=== PATIENT | female | born 1980 | race Caucasian/White ===

== ENCOUNTER 2022-08-18 10:30 | Outpatient (RCR) | payer OTHER, SELFPAY | END 2022-09-10 13:46 | disposition home or self-care (01) | LOC: ST 10:30 | PROVIDERS: PCP Family Medicine; Visit Provider Family Medicine | DX: I63.411 Cerebral infarction due to embolism of right middle cerebral artery (principal) | CPT/HCPCS: 92507; 92523 ==

== ENCOUNTER 2023-01-20 20:31 | Emergency (ER) | payer OTHER, SELFPAY ==
[2023-01-20 20:37] VITALS: BP 130/80; PULSE 113; RESP 18; TEMP 37.2; O2SAT 100; BMI 31.1
--- NOTE | 2023-01-20 21:33 | PC.NURSE ---
Patient states she has had a fever since Wednesday that has been 100 degrees. She also states she has had a persistent, dry cough for 3 months that is associated with acid reflux. She has seen GI for this and has EGD done, but no improvement. She states she is vomiting all of the time, cannot keep any food down, and most liquids come up also. She mentions that she can usually keep down flat root beer and marco antonio sun juice. 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 She is on the transplant list, but states she has to get her GI issues under control before she can have the transplant.
--- NOTE | 2023-01-20 21:39 | XR_ITS ---
[address] [address] Patient Name: JAN LOMBARDI MRN: [id number] date: 1980 Sex: F Assigned Patient Location: ER Current Patient Location: ER Accession/Order Number: [id number] Exam Date: 01/20/2023 21:53 Report Date: 01/20/2023 22:14 At the request of: MAYE FINNEGAN Procedure: XR chest 2V Exam: Radiographs: XR chest 2V Reason for exam: cough, fever Comparison: Chest x-ray dated 07/30/2022 XR/XR chest 2V IMPRESSION: Implanted cardiac recording device. Chest is otherwise unremarkable Electronically authenticated by: RIZWANA BRAY Date: 01/20/2023 22:14
--- NOTE | 2023-01-20 21:50 | ED.FEVER1 ---
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 She states her fever has gone up as high as 100 degrees. She was at her public health epidemiologist office earlier in the week and was told to keep an eye on it . She states that her dialysis site is clear. She is not having any abdominal pain. She has been having a lot of GE reflux and has been vomiting intermittently. She has a dry cough that is constant and taking. She denies any sore throat. She urinates very little. She has had diarrhea for the past several months. She denies any headache or neck pain. She has no skin rash. She does not smoke. She is not on any prophylactic antibiotics.She denies any chest pain or shortness breath. She denies any dizziness or syncope. Related Data Home Medications Medication Instructions Recorded Confirmed amlodipine 2.5 mg tablet mg 01/20/23 apixaban 2.5 mg tablet (Eliquis) 2.5 mg PO BID 01/20/23 01/20/23 atorvastatin 40 mg tablet mg 01/20/23 azathioprine 50 mg tablet mg 01/20/23 folic acid 1 mg tablet 01/20/23 magnesium oxide 400 mg (241.3 mg mg 01/20/23 magnesium) tablet metoprolol succinate 25 mg mg PO 01/20/23 tablet,extended release 24 hr ondansetron HCl 4 mg tablet mg 01/20/23 pantoprazole 40 mg tablet,delayed mg PO 01/20/23 release potassium chloride 10 mEq meq PO 01/20/23 tablet,extended release(part/cryst) sevelamer carbonate 2.4 gram oral g 01/20/23 powder packet sucralfate 100 mg/mL oral 01/20/23 suspension Allergies Allergy/AdvReac Type Severity Reaction Status Date / Time vancomycin Allergy Intermediate Verified 01/20/23 20:42 Review of Systems ROS Status of ROS 10 or more systems reviewed and unremarkable except as noted in history and below Exam Narrative Exam Narrative: Nurses note and vital signs reviewed and patient is not hypoxic. She is tachycardic with a pulse of 113 General: Alert, nontoxic female resting currently on the stretcher, she has an intermiittent spasmodic cough, no respiratory distress Skin: Warm, dry, Pale, no rash noted Head: Normocephalic, atraumatic Eye: Normal conjunctiva, no drainage, EOMI. PERRL Ears, Nose, Mouth, and Throat: oral mucosa is moist. Nares patent. Mouth without vesicles. Cardiovascular: Regular Rate and Rhythm S1S2, no murmurs, rubs or gallops appreciated Respiratory: Patient is in no distress, no accessory muscle use, lungs are clear to auscultation, no wheezing, rhonchi or rales appreciated, intermittent spasmodic cough Back: non-tender, no CVA tenderness bilaterally to percussion. GI: Normal bowel sounds, no tenderness to palpation, no masses appreciated. No rebound, guarding, or rigidity noted. Peritoneal dialysis catheter in mid right abdominal wall, NO ABDOMINAL TENDERNESS, REBOUND, GUARDING OR RIGIDITY Musculoskeletal: The patient has no evidence of calf tenderness, no pitting edema, symmetrical pulses noted bilaterally Neurological: A&O x4, normal speech Psychiatric: Cooperative Constitutional Vital Signs, click to edit/add: Last Vital Signs Temp 98.9 F 01/20/23 20:37 Pulse 113 H 01/20/23 20:37 Resp 18 01/20/23 20:37 BP 130/80 01/20/23 20:37 Pulse Ox 100 01/20/23 20:37 O2 Del Method Room Air 01/20/23 20:37 Course Vital Signs Vital signs: Vital Signs Temperature 98.9 F 01/20/23 20:37 Pulse Rate 113 H 01/20/23 20:37 Respiratory Rate 18 01/20/23 20:37 Blood Pressure 130/80 01/20/23 20:37 Pulse Oximetry 100 01/20/23 20:37 Oxygen Delivery Method Room Air 01/20/23 20:37 Temperature 98.9 F 01/20/23 20:37 Pulse Rate 113 H 01/20/23 20:37 Respiratory Rate 18 01/20/23 20:37 Blood Pressure 130/80 01/20/23 20:37 Pulse Oximetry 100 01/20/23 20:37 Oxygen Delivery Method Room Air 01/20/23 20:37 MDM - Fever MDM Narrative Medical decision making narrative: This 42-year-old female who is a dialysis patient and a patient of Event Planning Manager, Dr Hampton at [facility], presents for evaluation of a fever for the past 4 days as well as a dry nonproductive, spasmodic cough. Her public health epidemiologist told her to keep an eye on her temperature when she was seen earlier this week. She states that her dialysate has been clear. Her temperature has been as high as 100. She does not smoke. She makes very minimal urine. She denies any abdominal pain. She does state that she has been vomiting and having trouble holding things down. She denies any jody nausea. She has also had intermittent diarrhea for the past several months. The majority of her symptoms are chronic in nature. Marco fever is new. Her cough is new. The patient's physical exam is in keeping with her history of being a dialysis patient. She is pale, her mucous membranes are dry, her abdomen is soft however with a perineal dialysis catheter in the abdominal wall. She has no skin rash. She does have an intermittent dry bronchospastic cough and clear rhinorrhea. Chest x-ray was negative for acute findings. Routine labs were ordered. Her lactic acid was mildly elevated at 2.2. Her potassium is low at 2.9. Her hemoglobin is low at 7.2. She states that her hemoglobin is lower than it was recently when it was 8.1 however she declines any blood product administration emergency department. She states her potassium is higher than it has been recently and agrees to oral potassium supplementation. She was unable to tolerate pills but was able to tolerate potassium slurry and was given 25 mg of Effer K. A respiratory panel was ordered and is positive for rhinovirus/enterovirus which is likely the etiology of her cough and gastrointestinal symptoms. She was agreeable to IV fluids, tylenol and Zofran. She was feeling better after 500 mL of normal saline and was able to tolerate the potassium supplement after the Zofran. She requested an additional 500 mL of normal saline. I explained to her that I did not want to fluid overload her in light of her kidney disease but she states that the majority of the fluid will come off when she does peritoneal dialysis later tonight. She was medicated with a dose of hycodanin the emergency department which hopefully will help her cough. She was also given 3 g of IV Unasyn due to the fever and the complicated medical history that she has including the peritoneal dialysis catheter in her abdominal wall, I explained to her that this is empiric treatment for the URI symptoms and I dont want her to end up with pneumonia or an intraabdominal infection- she is in agreement with this. She will be discharged home with prescription for the potassium supplements (Effer K) that she can tolerate, Phenergan with codeine and Augmentin 500 mg. I encouraged her to follow closely with her lieutenant governor as she may require blood products in the near future and her public health epidemiologist. She can discuss the medications I prescribed with her doctors and they can direct her further Medical Records Medical records narrative: The [address] [address] XRay Report Signed Patient: JAN LOMBARDI MR#: [id number] : 1980 Acct:[id number] Age/Sex: 42 / F ADM Date: 01/20/23 Loc: ER Attending Dr: Ordering Physician: Ava Macias Date of Service: 01/20/23 Procedure(s): XR chest 2V Accession Number(s): [id number] cc: JEFFREY ARGUELLES ; Ava aMcias~ The [address] [address] Patient Name: JAN LOMBARDI MRN: [id number] date: 1980 Sex: F Assigned Patient Location: ER Current Patient Location: ER Accession/Order Number: [id number] Exam Date: 01/20/2023 21:53 Report Date: 01/20/2023 22:14 At the request of: AVA MACIAS Procedure: XR chest 2V Exam: Radiographs: XR chest 2V Reason for exam: cough, fever Comparison: Chest x-ray dated 07/30/2022 XR/XR chest 2V IMPRESSION: Implanted cardiac recording device. Chest is otherwise unremarkable Lab Data Labs: Lab Results 01/20/23 01/20/23 01/20/23 Range/Units 21:20 22:23 22:25 WBC 8.7 (4.0-11.0) 10^3/uL RBC 2.14 L (4.20-5.40) 10^6/uL Hgb 7.2 L (12.0-16.0) g/dL Hct 21.9 L* (36.0-48.0) % MCV 102.3 H (81.0-99.0) fL MCH 33.6 (26.7-34.0) pg MCHC 32.9 (29.9-35.2) g/dL RDW 15.0 (11.0-15.0) % Plt Count 174 (150-450) 10^3/uL MPV 11.8 (9.5-13.5) fL Neut % (Auto) 79.1 H (43.0-75.0) % Lymph % (Auto) 11.1 L (20.5-60.0) % Bibb % (Auto) 7.6 (1.7-12.0) % Eos % (Auto) 1.0 (0.9-7.0) % Baso % (Auto) 0.3 (0.2-2.0) % Neut # (Auto) 6.9 H (1.4-6.5) 10^3/uL Lymph # (Auto) 1.0 L (1.2-3.8) 10^3/uL Bibb # (Auto) 0.7 (0.3-0.8) 10^3/uL Eos # (Auto) 0.1 (0.0-0.7) 10^3/uL Baso # (Auto) 0.0 (0.0-0.1) 10^3/uL Abs Immat Gran (auto) 0.08 H (0.00-0.03) 10^3/uL Imm/Tot Granulo (auto) 0.9 H (0.0-0.5) % Sodium 136 (136-145) mmol/L Potassium 2.9 L* (3.5-5.1) mmol/L Chloride 93 L (98-107) mmol/L Carbon Dioxide 32.0 (21.0-32.0) mmol/L Anion Gap 13.9 BUN 62.0 H (7.0-18.0) mg/dL Creatinine 25.44 H* (0.55-1.02) mg/dL Est GFR ( Amer) 2 L (>=60) Est GFR (Non-Af Amer) 1 L (>=60) BUN/Creatinine Ratio 2.4 Glucose 104 (74-106) mg/dL Lactate 2.2 H* (0.4-2.0) mmol/L Calcium 9.2 (8.5-10.1) mg/dL Total Bilirubin 1.2 H (0.2-1.0) mg/dL AST <15 L (15-37) U/L ALT 16 (14-59) U/L Alkaline Phosphatase 93 (46-116) U/L Total Protein 5.8 L (6.4-8.2) g/dL Albumin 2.3 L (3.4-5.0) g/dL Globulin 3.5 g/dL Albumin/Globulin Ratio 0.7 Adenovirus (PCR) Not detected (NOT DETECTE) C. pneumoniae DNA (PCR) Not detected (NOT DETECTE) Coronavirus Type OC43 Not detected (NOT DETECTE) Coronavirus Type HKU1 Not detected (NOT DETECTE) Coronavirus Type 229E Not detected (NOT DETECTE) Coronavirus Type NL63 Not detected (NOT DETECTE) Human Metapneumovir PCR Not detected (NOT DETECTE) M. pneumoniae (PCR) Not detected (NOT DETECTE) Parainfluenza PCR Not detected (NOT DETECTE) Parainfluenza 2 (PCR) Not detected (NOT DETECTE) Parainfluenza 3 (PCR) Not detected (NOT DETECTE) Parainfluenza 4 (PCR) Not detected (NOT DETECTE) RSV (RT-PCR) Not detected (NOT DETECTE) Entero/Rhino (PCR) Detected A (NOT DETECTE) SARS-CoV-2 (PCR) Not detected (NOT DETECTE) Bordetella pertussis (PCR) Not detected (NOT DETECTE) B parapertussis DNA PCR Not detected (NOT DETECTE) Influenza Type A (PCR) Not detected (NOT DETECTE) Influenza Type B (PCR) Not detected (NOT DETECTE) Discharge Plan Discharge Chief Complaint: Fever Clinical Impression: Enteroviral infection, Anemia, Chronic renal disease, Acute bronchitis due to Rhinovirus, Hypokalemia Patient Disposition: Home, Self-Care Time of Disposition Decision: 00:45 Condition: Good Prescriptions / Home Meds: No Action ondansetron HCl 4 mg tablet amlodipine 2.5 mg tablet pantoprazole 40 mg tablet,delayed release (DR/EC) PO folic acid 1 mg tablet Eliquis 2.5 mg tablet 2.5 mg PO BID atorvastatin 40 mg tablet sucralfate 100 mg/mL suspension azathioprine 50 mg tablet magnesium oxide 400 mg (241.3 mg magnesium) tablet metoprolol succinate 25 mg tablet extended release 24 hr PO potassium chloride 10 mEq tablet,ER particles/crystals PO sevelamer carbonate 2.4 gram powder in packet Instructions: Chronic Kidney Disease (ED), Hypokalemia (ED), Acute Bronchitis (ED), Anemia (ED) Stand Alone Forms: Portal Instructions Referrals: JEFFREY ARGUELLES [Primary Care Provider] - 1 week
[2023-01-20] MEDS: ONDANSETRON PF 4 MG/2 ML VIAL IV (22:16)
[2023-01-20] MEDS: 0.9 % SODIUM CHLORIDE 500 ML IV (22:16)
[2023-01-20] MEDS: ACETAMINOPHEN 325 MG TABLET 650 MG PO (22:18)
[2023-01-20 22:30] LABS: Adenovirus NOT DETECTED (NOT DETECTE); Bordetella parapertussis NOT DETECTED (NOT DETECTE); Coronavirus 229E NOT DETECTED (NOT DETECTE); Coronavirus HKU1 NOT DETECTED (NOT DETECTE); Coronavirus NL63 NOT DETECTED (NOT DETECTE); Coronavirus OC43 NOT DETECTED (NOT DETECTE); Human Metapneumovirus NOT DETECTED (NOT DETECTE); Influenza A NOT DETECTED (NOT DETECTE); Influenza B NOT DETECTED (NOT DETECTE); Mycoplasma pneumoniae NOT DETECTED (NOT DETECTE); Parainfluenza Virus 1 NOT DETECTED (NOT DETECTE); Parainfluenza Virus 2 NOT DETECTED (NOT DETECTE); Parainfluenza Virus 3 NOT DETECTED (NOT DETECTE); Parainfluenza Virus 4 NOT DETECTED (NOT DETECTE); Respiratory Syncytial Virus NOT DETECTED (NOT DETECTE); SARS-CoV-2 NOT DETECTED (NOT DETECTE)
[2023-01-20 22:33] LABS: Basophils Percent Auto 0.3 % (0.2-2.0); Eosinophils Absolute Auto 0.1 10^3/uL (0.0-0.7); Hemoglobin 7.2 g/dL (12.0-16.0); Immature Granulocytes Abs Auto 0.08 10^3/uL (0.00-0.03); Immature Granulocytes Pct Auto 0.9 % (0.0-0.5); Lymphocytes Percent Auto 11.1 % (20.5-60.0); Mean Corpuscular HGB Conc 32.9 g/dL (29.9-35.2); Mean Corpuscular Hemoglobin 33.6 pg (26.7-34.0); Mean Corpuscular Volume 102.3 fL (81.0-99.0); Mean Platelet Volume 11.8 fL (9.5-13.5); Monocytes Absolute Auto 0.7 10^3/uL (0.3-0.8); Monocytes Percent Auto 7.6 % (1.7-12.0); Neutrophils Absolute Auto 6.9 10^3/uL (1.4-6.5); Neutrophils Percent Auto 79.1 % (43.0-75.0); Platelet Count 174 10^3/uL (150-450); Red Blood Count 2.14 10^6/uL (4.20-5.40); White Blood Count 8.7 10^3/uL (4.0-11.0)
[2023-01-20 22:34] LABS: Hematocrit 21.9 % (36.0-48.0)
[2023-01-20 22:54] LABS: Lactate/Lactic Acid 2.2 mmol/L (0.4-2.0)
[2023-01-20 22:56] LABS: Alanine Aminotransferase 16 U/L (14-59); Albumin Globulin Ratio 0.7; Albumin Level 2.3 g/dL (3.4-5.0); Alkaline Phosphatase 93 U/L (46-116); Anion Gap 13.9; BUN Creatinine Ratio 2.4; Bilirubin Total 1.2 mg/dL (0.2-1.0); Calcium 9.2 mg/dL (8.5-10.1); Chloride 93 mmol/L (98-107); Estimated GFR (African America 2 (>=60); Estimated GFR (Non-African Ame 1 (>=60); Globulin 3.5 g/dL; Glucose 104 mg/dL (74-106); Sodium 136 mmol/L (136-145); Total Protein 5.8 g/dL (6.4-8.2)
[2023-01-20 23:04] LABS: Aspartate Amino Transferase <15 U/L (15-37)
[2023-01-20 23:05] LABS: Potassium 2.9 mmol/L (3.5-5.1)
[2023-01-20 23:20] LABS: Human Rhinovirus/Enterovirus DETECTED (NOT DETECTE)
[2023-01-20] MEDS: AMPICILLIN SODIUM/SULBACTAM NA 3 GM in 0.9 % SODIUM CHLORIDE 100 ML IV (23:40)
[2023-01-20] MEDS: POTASSIUM BICARBONATE/CIT 25 MEQ TABLET EFF PO (23:56)
[2023-01-21] MEDS: 0.9 % SODIUM CHLORIDE 500 ML IV (00:40)
[2023-01-21] MEDS: ACETAMINOPHEN 120 MG WITH CODEINE 12 MG/ 5 ML SOLUTION PO (01:16)
[2023-01-22 01:35] LABS: A. calcoaceticus-baumannii Cpx NOT DETECTED (NOT DETECTE); Bacteroides fragilis NOT DETECTED (NOT DETECTE); Candida albicans NOT DETECTED (NOT DETECTE); Candida auris NOT DETECTED (NOT DETECTE); Candida glabrata NOT DETECTED (NOT DETECTE); Candida krusei NOT DETECTED (NOT DETECTE); Candida parapsilosis NOT DETECTED (NOT DETECTE); Candida tropicalis NOT DETECTED (NOT DETECTE); Cryptococcus neoformans/gattii NOT DETECTED (NOT DETECTE); Enterococcus faecalis NOT DETECTED (NOT DETECTE); Enterococcus faecium NOT DETECTED (NOT DETECTE); Haemophilus influenzae NOT DETECTED (NOT DETECTE); Klebsiella aerogenes NOT DETECTED (NOT DETECTE); Klebsiella pneumoniae group NOT DETECTED (NOT DETECTE); Listeria monocytogenes NOT DETECTED (NOT DETECTE); Neisseria meningitidis NOT DETECTED (NOT DETECTE); Proteus spp. NOT DETECTED (NOT DETECTE); Pseudomonas aeruginosa NOT DETECTED (NOT DETECTE); Salmonella spp. NOT DETECTED (NOT DETECTE); Serratia marcescens NOT DETECTED (NOT DETECTE); Staphylococcus epidermidis NOT DETECTED (NOT DETECTE); Staphylococcus lugdunensis NOT DETECTED (NOT DETECTE); Staphylococcus spp. NOT DETECTED (NOT DETECTE); Stenotrophomonas maltophilia NOT DETECTED (NOT DETECTE); Streptococcus agalactiae NOT DETECTED (NOT DETECTE); Streptococcus pneumoniae NOT DETECTED (NOT DETECTE); Streptococcus pyogenes NOT DETECTED (NOT DETECTE); Streptococcus spp. NOT DETECTED (NOT DETECTE)
[2023-01-22 05:52] LABS: Enterobacter cloacae complex DETECTED (NOT DETECTE); Enterobacterales DETECTED (NOT DETECTE)
[2023-01-22 12:08] LABS: CTX-M NOT DETECTED (NOT DETECTE); KPC NOT DETECTED (NOT DETECTE)
[2023-01-22 12:09] LABS: IMP NOT DETECTED (NOT DETECTE)
[2023-01-22 12:10] LABS: NDM NOT DETECTED (NOT DETECTE); OXA-48-like NOT DETECTED (NOT DETECTE); VIM NOT DETECTED (NOT DETECTE); mcr-1 NOT DETECTED (NOT DETECTE)
== END 2023-01-21 01:50 | disposition home or self-care (01) ==
PROVIDERS: Emergency Provider Emergency Medicine; PCP Family Medicine
DX: J20.6 Acute bronchitis due to rhinovirus (principal); E87.6 Hypokalemia; D64.9 Anemia, unspecified; B34.1 Enterovirus infection, unspecified; N18.6 End stage renal disease; Z99.2 Dependence on renal dialysis; Z79.01 Long term (current) use of anticoagulants; Z79.899 Other long term (current) drug therapy; Z20.822 Contact with and (suspected) exposure to COVID-19
CPT/HCPCS: 0202U; 36415; 71046; 80053; 83605; 85025; 87040; 87150; 87186; 96365; 96375; 99284

== ENCOUNTER 2023-11-14 23:09 | Emergency (ER) | payer MEDICARE, MEDICAID, SELFPAY ==
--- OUTSIDE RECORDS SUMMARY | 2023-11-14 23:27 | XMS_ITS | CCD ---
Author Organization [facility] Care Team Providers Care Fast Food Worker Name Role Phone Unknown, Pcp Unavailable Unavailable Farhat Cali Unavailable Andie Hensley Unavailable Unavailabl e Dinary, Buthayna Unavailable Unavailable Brianna Castillo Unavailable Gary Feldman Unavailable Unknown, Referring Provider Unavailable Unav ailable Unavailable Primary Care Provider UnavailJeffrey Hughes Primary Care Provider MD Robert Patel Attending Provider [phone] MD Jeffrey Burrows Primary Care Provider Jeffrey Del Cid Primary Care Provider Jeffrey Del Cid Primary Care Provider Jeffrey Del Cid Primary Care Provider MARKER ., DR VILLAVICENCIO Admitting Unavailable MARKER ., DR VILLVAICENCIO Attending Unavailable BLANE, DR MURPHY Primary Care Unavailable MARKER ., DR VILLAVICENCIO Consulting Unavailable LOU SAWANT Consulting Unavailable BLANE, DR MURPHY Primary Care Unavailable KISHAN, DR ABELINO Faye Consulting Unavailable WADE ., SHELLIE Admitting Unavailable WADE ., SHELLIE Attending Unavailable KISHAN, DR ABELINO Faye Procedure Practitioner Megan DANGELO ., PA ES Consulting Unavailabl e AHDOOT, KAREN Consulting Unavailable ADDIS ., ZAK Consulting Unavailable SINGHGALLITO, ARAVIND Consulting Unavailable SISTER, DAVID Consulting Unavailable WADE ., SHELLIE Consulting Unavailable MD Jeffrey Burrows Primary Care Provider [phone] Connorimore, UNDER WATER ASSISTANT-BC Agnes E Emergency Provider Jeffrey Del Cid Primary Care Provider MD Jeffrey Burrows Primary Care Provider [phone] MD Natali Child V Attending Provider [phone] New GILL[place], Daniel Unavailable Bullimore, Agnes E Admitting Unavailable Defrance, Jeffrey Primary Care Unavailable Bullimore, Agnes E Attending Unavailable Defrance, Jeffrey Primary Care Unavailable Abhyankar, Antali V Attending Unavailable Abhyankar, Natali V Admitting Unavailable Abhyankar, Natali V Admitting Unavailable Defrance, Jeffrey Primary Care Unavailable Abhyankar, Natali V Attending Unavailable MD Jeffrey Burrows Primary Care Provider [phone] MD Natali Child V Attending Provider [phone] DE MERRICK, JEFFREY LUGO Primary Care Unavaila ble EBENSEENTE Referring Unavailable de Merrick, Jeffrey Lugo Primary Care Provider JEFFREY BURROWS Attending Unavailable DEFINGRID, JEFFREY Pacheco Referring Unavailable DEFJEFFREY QUINTERO Primary Care Unavailable DE MERRICK, JEFFREY LUGO Primary Care Unavaila ble DE MERRICK, JEFFREY LUGO Primary Care Unavaila ble ABHYANKAR, NATALI Referring Unavailable DE MERRICK, JEFFREY LUGO Primary Care Unavaila ble DE MERRICK, JEFFREY LUGO Primary Care Unavaila ble SUYAPA LOUISE Attending Unavailable DE MERRICK, JEFFREY LUGO Primary Care Unavaila ble DE MERRICK, JEFFREY LUGO Primary Care Unavaila ble ABHYANKAR, NATALI Referring Unavailable DE MERRICK, JEFFREY LUGO Primary Care Unavaila ble DE MERRICK, JEFFREY LUGO Primary Care Unavaila ble ABHYANKAR, NATALI Referring Unavailable DE MERRICK, JEFFREY LUGO Primary Care Unavaila ble ABHYANKAR, NATALI Referring Unavailable DE MERRICK, JEFFREY LUGO Primary Care Unavaila ble DE MERRICK, JEFFREY LUGO Primary Care Unavaila ble YASEENTE Referring Unavailable DE MERRICK, JEFFREY LUGO Primary Care Unavaila ble DE MERRICK, JEFFREY LUGO Primary Care Unavaila ble ABHYANKAR, NATALI Referring Unavailable DE MERRICK, JEFFREY LUGO Primary Care Unavaila ble DE MERRICK, JEFFREY LUGO Primary Care Unavaila ble DE MERRICK, JEFFREY LUGO Primary Care Unavaila ble MELITON MOSQUEDA Referring Unavailable JOANNE OVERTON Attending Unavailable DE MERRICK, JEFFREY LUGO Primary Care Unavaila ble ABHYANKAR, NATALI Referring Unavailable ABHYANKAR, NATALI Referring Unavailable DE MERRICK, JEFFREY LUGO Primary Care Unavaila ble DE MERRICK, JEFFREY LUGO Referring Unavaila ble DE MERRICK, JEFFREY LUGO Primary Care Unavaila ble DE MERRICK, JEFFREY LUGO Primary Care Unavaila ble ABHYANKAR, NATALI Referring Unavailable DE MERRICK, JEFFREY LUGO Primary Care Unavaila ble TE AVENDAÑO Attending Unavailable DE MERRICK, JEFFREY LUGO Primary Care Unavaila ble ABHYANKAR, NATALI Attending Unavailable ABHYANKAR, NATALI Referring Unavailable DE MERRICK, JEFFREY LUGO Primary Care Unavaila ble ABHYANKAR, NATALI Referring Unavailable DE MERRICK, JEFFREY LUGO Primary Care Unavaila ble ABHYANKAR, NATALI Referring Unavailable DE MERRICK, JEFFREY LUGO Primary Care Unavaila ble ABHYANKAR, NATALI Referring Unavailable DE MERRICK, JEFFREY LUGO Primary Care Unavaila ble DE MERRICK, JEFFREY LUGO Primary Care Unavaila ble ABHYANKAR, NATALI Referring Unavailable DE MERRICK, JEFFREY LUGO Primary Care Unavaila ble DE MERRICK, JEFFREY LUGO Primary Care Unavaila ble OWOYEMI, ITUNU Referring Unavailable DE MERRICK, JEFFREY LUGO Primary Care Unavaila ble OWOYEMI, ITUNU Referring Unavailable DE MERRICK, JEFFREY LUGO Primary Care Unavaila ble OWOYEMI, ITUNU Referring Unavailable DE MERRICK, JEFFREY LUGO Primary Care Unavaila ble OWOYEMI, ITUNU Referring Unavailable OWOYEMI, ITUNU Referring Unavailable DE MERRICK, JEFFREY LUGO Primary Care Unavaila ble OWOYEMI, ITUNU Referring Unavailable DE MERRICK, JEFFREY LUGO Primary Care Unavaila ble OWOYEMI, ITUNU Referring Unavailable DE MERRICK, JEFFREY LUGO Primary Care Unavaila ble OWOYEMI, ITUNU Referring Unavailable DE MERRICK, JEFFREY LUGO Primary Care Unavaila ble SELF Referring Unavailable JOANNE OVERTON Attending Unavailable DE MERRICK, JEFFREY LUGO Primary Care Unavaila ble OWOYEMI, ITUNU Referring Unavailable DE MERRICK, JEFFREY LUGO Primary Care Unavaila ble ABHYANKAR, NATALI Referring Unavailable DE MERRICK, JEFFREY LUGO Primary Care Unavaila ble DE MERRICK, JEFFREY LUGO Primary Care Unavaila ble ABHYANKAR, NATALI Referring Unavailable DE MERRICK, JEFFREY LUGO Primary Care Unavaila ble ABHYANKAR, NATALI Referring Unavailable DE MERRICK, JEFFREY LUGO Primary Care Unavaila ble DE MERRICK, JEFFREY LUGO Primary Care Unavaila ble ABHYANKAR, NATALI Referring Unavailable BRENDA, ZIAD Referring Unavailable DE MERRICK, JEFFREY LUGO Primary Care Unavaila ble BRENDA, ZIAD Referring Unavailable DE MERRICK, JEFFREY LUGO Primary Care Unavaila ble BRENDA, ZIAD Referring Unavailable DE MERRICK, JEFFREY LUGO Primary Care Unavaila ble BRENDA, AKIL Referring Unavailable DE MERRICK, JEFFREY LUGO Primary Care Unavaila ble BRENDA, AKIL Referring Unavailable DE MERRICK, JEFFREY LUGO Primary Care Unavaila ble DE MERRICK, JEFFREY LUGO Referring Unavaila ble DE MERRICK, JEFFREY LUGO Primary Care Unavaila ble ABHYANKAR, NATALI Attending Unavailable DE MERRICK, JEFFREY LUGO Primary Care Unavaila ble DE MERRICK, JEFFREY LUGO Primary Care Unavaila ble ROMAN BERNARDO Attending Unavailable PHILIP ESCALANTE Referring Unavailable DE MERRICK, JEFFREY LUGO Primary Care Unavaila ble ABHYANKAR, NATALI Referring Unavailable DE MERRICK, JEFFREY LUGO Primary Care Unavaila ble ABHYANKAR, NATALI Referring Unavailable ABHYANKAR, NATALI Attending Unavailable DE MERRICK, JEFFREY LUGO Primary Care Unavaila ble ESTELA LUGO Referring Unavailable NASEERFLORENCE Attending Unavailable DE MERRICK, JEFFREY LUGO Primary Care Unavaila ble DE MERRICK, JEFFREY LUGO Primary Care Unavaila ble ABHYANKAR, NATALI Referring Unavailable DE MERRICK, JEFFREY LUGO Primary Care Unavaila ble DE MERRICK, JEFFREY LUGO Primary Care Unavaila ble ABHYANKAR, NATALI Referring Unavailable DE MERRICK, JEFFREY LUGO Primary Care Unavaila ble DE MERRICK, JEFFREY LUGO Primary Care Unavaila ble ABHYANKAR, NATALI Referring Unavailable DE MERRICK, JEFFREY LUGO Primary Care Unavaila ble ABHYANKAR, NATALI Attending Unavailable ABHYANKDARREN, NATALI Referring Unavailable DE MERRICK, JEFFREY LUGO Primary Care Unavaila ble ABHYANKAR, NATALI Referring Unavailable DE MERRICK, JEFFREY LUGO Primary Care Unavaila ble MELITON MOSQUEDA Attending Unavailable DE MERRICK, JEFFREY LUGO Primary Care Unavaila ble YASEENTE Referring Unavailable DE MERRICK, JEFFREY LUGO Primary Care Unavaila ble YASEENTE Attending Unavailable DE MERRICK, JEFFREY LUGO Primary Care Unavaila ble ANITRA STEIN Referring Unavailable PHILIP ESCALANTE Attending Unavailable DE MERRICK, JEFFREY LUGO Primary Care Unavaila ble MELITON MOSQUEDA Referring Unavailable DE MERRICK, JEFFREY LUGO Primary Care Unavaila ble DANIEL TORO Attending Unavailable DE MERRICK, JEFFREY LUGO Primary Care Unavaila ble BRENDA, AKIL Referring Unavailable DE MERRICK, JEFFREY LUGO Primary Care Unavaila ble DE MERRICK, JEFFREY LUGO Primary Care Unavaila ble ABHYANKAR, NATALI Referring Unavailable DE MERRICK, JEFFREY LUGO Primary Care Unavaila ble ABHYANKAR, NATALI Referring Unavailable DE MERRICK, JEFFREY LUGO Primary Care Unavaila ble ABHYANKAR, NATALI Referring Unavailable DE MERRICK, JEFFREY LUGO Primary Care Unavaila ble DE MERRICK, JEFFREY LUGO Primary Care Unavaila ble SUYAPA LOUISE Attending Unavailable DE MERRICK, JEFFREY LUGO Primary Care Unavaila ble ABHYANKAR, NATALI Referring Unavailable DE MERRICK, JEFFREY LUGO Primary Care Unavaila ble DE MERRICK, JEFFREY LUGO Primary Care Unavaila ble ABHYANKAR, NATALI Referring Unavailable DE MERRICK, JEFFREY LUGO Primary Care Unavaila ble DE MERRICK, JEFFREY LUGO Primary Care Unavaila ble ABHYANKAR, NATALI Referring Unavailable DE MERRICK, JEFFREY LUGO Primary Care Unavaila ble DE MERRICK, JEFFREY LUGO Primary Care Unavaila ble ABHYANKAR, NATALI Referring Unavailable DE MERRICK, JEFFREY LUGO Primary Care Unavaila ble DE MERRICK, JEFFREY LUGO Primary Care Unavaila ble ABHYANKAR, NATALI Referring Unavailable SLOPNICKFERCHO Attending Unavailable DE MERRICK, JEFFREY LUGO Primary Care Unavaila ble PHILIP ESCALANTE Referring Unavailable DE MERRICK, JEFFREY LUGO Primary Care Unavaila ble ABHYANKAR, NATALI Referring Unavailable ABHYANKAR, NATALI Referring Unavailable DE MERRICK, JEFFREY LUGO Primary Care Unavaila ble DE MERRICK, JEFFREY LUGO Referring Unavaila ble DE MERRIKC, JEFFREY LUGO Primary Care Unavaila ble ABHYANKAR, NATALI Referring Unavailable DE MERRICK, JEFFREY LUGO Primary Care Unavaila ble ABHYANKAR, NATALI Referring Unavailable DE MERRICK, JEFFREY LUGO Primary Care Unavaila ble DE MERRICK, JEFFREY LUGO Primary Care Unavaila ble ABHYANKAR, NATALI Referring Unavailable DE MERRICK, JEFFREY LUGO Primary Care Unavaila ble DE MERRICK, JEFFREY LUGO Primary Care Unavaila ble DE MERRICK, JEFFREY LUGO Primary Care Unavaila ble ABHYANKAR, NATALI Referring Unavailable DE MERRICK, JEFFREY LUGO Primary Care Unavaila ble ABHYANKAR, NATALI Referring Unavailable DE MERRICK, JEFFREY LUGO Primary Care Unavaila ble ABHYANKAR, NATALI Referring Unavailable ABHYANKAR, NATALI Attending Unavailable ABHYANKAR, NATALI Referring Unavailable DE MERRICK, JEFFREY LUGO Primary Care Unavaila ble DE MERRICK, JEFFREY LUGO Primary Care Unavaila ble ABHYANKAR, NATALI Referring Unavailable DE MERRICK, JEFFREY LUGO Primary Care Unavaila ble ABHYANKAR, NATALI Referring Unavailable ABHYANKAR, NATALI Attending Unavailable DE MERRICK, JEFFREY LUGO Primary Care Unavaila ble DE MERRICK, JEFFREY LUGO Primary Care Unavaila ble DE MERRICK, JEFFREY LUGO Primary Care Unavaila ble ABHYANKAR, NATALI Referring Unavailable DE MERRICK, JEFFREY LUGO Primary Care Unavaila ble ABHYANKAR, NATALI Referring Unavailable ABHYANKAR, NATALI Attending Unavailable DE MERRICK, JEFFREY LUGO Primary Care Unavaila ble DE MERRICK, JEFFREY LUGO Primary Care Unavaila ble TERESA COPE Attending Unavailable DE MERRICK, JEFFREY LUGO Primary Care Unavaila ble ABHYANKAR, NATALI Referring Unavailable DE MERRICK, JEFFREY LUGO Primary Care Unavaila ble ABHYANKAR, NATALI Referring Unavailable DE MERRICK, JEFFREY LUGO Primary Care Unavaila ble ABHYANKAR, NATALI Referring Unavailable DE MERRICK, JEFFREY LUGO Primary Care Unavaila ble ABHYANKAR, NATALI Referring Unavailable DE MERRICK, JEFFREY LUGO Primary Care Unavaila ble ABHYANKAR, NATALI Referring Unavailable DE MERRICK, JEFFREY LUGO Primary Care Unavaila ble ABHYANKAR, NATALI Referring Unavailable DE MERRICK, JEFFREY LUGO Primary Care Unavaila ble TE AVENDAÑO Attending Unavailable DE MERRICK, JEFFREY LUGO Primary Care Unavaila ble ABHYANKAR, NATALI Referring Unavailable DE MERRICK, JEFFREY LUGO Primary Care Unavaila ble ABHYANKAR, NATALI Referring Unavailable DE MERRICK, JEFFREY LUGO Primary Care Unavaila ble ABHYANKAR, NATALI Referring Unavailable DE MERRICK, JEFFREY LUGO Primary Care Unavaila ble RACQUEL BURGESS Referring Unavailable DE MERRICK, JEFFREY LUGO Primary Care Unavaila ble ABHYANKAR, NATALI Referring Unavailable DE MERRICK, JEFFREY LUGO Primary Care Unavaila ble ABHYANKAR, NATALI Referring Unavailable DE MERRICK, JEFFREY LUGO Primary Care Unavaila ble DE MERRICK, JEFFREY LUGO Primary Care Unavaila ble CHARITY GRISSOM Attending Unavailable DE MERRICK, JEFFREY LUGO Primary Care Unavaila ble ABHYANKAR, NATALI Referring Unavailable DE MERRICK, JEFFREY LUGO Primary Care Unavaila ble ABHYANKAR, NATALI Referring Unavailable DE MERRICK, JEFFREY LUGO Primary Care Unavaila ble DE MERRICK, JEFFREY LUGO Primary Care Unavaila ble ABHYANKAR, NATALI Attending Unavailable DE MERRICK, JEFFREY LUGO Primary Care Unavaila ble DE MERRICK, JEFFREY LUGO Primary Care Unavaila ble ARGENTINA MARADIAGA Attending Unavailable ABHYANKAR, NATALI Referring Unavailable DE MERRICK, JEFFREY LUGO Primary Care Unavaila ble ANTONIO MARINO Attending Unavailable ANTONIO MARINO A Admitting Unavailable DE MERRICK, JEFFREY LUGO Primary Care Unavaila ble FERCHO JOHNSON Referring Unavailable NATI MAXWELL Attending Unavailable JEFFREY DEL CID Primary Care Unavaila ble DEFRANCE, JEFFREY T Primary Care Unavailable BREANA BLOOD Attending Unavailab le DEFRANCE, JEFFREY Pacheco Primary Care Unavailable KIM, JEFFREY Attending Unavailable RIAZ, EHAD Consulting Unavailable KIM, JEFFREY Attending Unavailable KIM, JEFFREY Referring Unavailable DEFRANCE, JEFFREY T Primary Care Unavailable KIM, JEFFREY Attending Unavailable KIM, JEFFREY Referring Unavailable DEFRANCE, JEFFREY T Primary Care Unavailable KIM, JEFFREY Attending Unavailable KIM, JEFFREY Referring Unavailable DEFRANCE, JEFFREY T Primary Care Unavailable KIM, JEFFREY Attending Unavailable KIM, JEFFREY Referring Unavailable DEFRANCE, JEFFREY T Primary Care Unavailable DEFRANCE, JEFFREY T Referring Unavailable DEFRANCE, JEFFREY Pacheco Primary Care Unavailable SERVICE, DANIELLE Referring Unavailable DEFRANCE, JEFFREY Pacheco Primary Care Unavailable SERVICE, JOBST Referring Unavailable DEFRANCE, JEFFREY T Primary Care Unavailable SERVICE, JOBST Referring Unavailable DEFRANCE, JEFFREY T Primary Care Unavailable NIECY VASQUEZ Attending Unavailable BARTSON, NIECY Weaver Referring Unavailable DEFRANCE, JEFFREY Pacheco Primary Care Unavailable NIECY VASQUEZ Referring Unavailable DEFRANCE, JEFFREY T Primary Care Unavailable Allergies Allergy Classification Reported Allergen(s) Allergy Type Date of Onset Reaction(s) Facility (8 sources) Vancomycin; Translations: [VANCOMYCIN] Drug Allergy 05-27-2022 [facility] Repository (20 sources) Vancomycin Drug Allergy 12-03-2022 Itching [facility] Work Phone: (1 source) Vancomycin Drug Allergy 09-03-2022 [facility] Repository (20 sources) Amoxicillin / Clavulanate; Translations: [AMOXICILLIN-POT CLAVULANATE] Drug Allergy 01-26-2023 Hives, Rash [facility] Medications Current Medications Medication Drug Class(es) Dates Sig (Normalized) Sig (Original) acetaminophen 325 mg / HYDROcodone bitartrate 5 mg oral tablet (5 sources) Opioid Agonist Start: 08-28-2021 take 1 tablet by mouth every six hours Hydrocodone-Acet aminophen Active 1 TAB PO Q6H 28 August 28, 2021 amLODIPine 2.5 mg oral tablet (20 sources) Dihydropyridine Calcium Channel [place] Start: 08-10-2023 take 1 tablet by mouth once daily amLODIPine (NORVASC) 2.5 mg tablet Take 2.5 mg by mouth once daily. 08/10/2023 Active Start: 11-07-2021 End: 11-26-2022 take 2 tablets by mouth once daily amLODIPine (NORVASC) 2.5 mg tablet Take 5 mg by mouth once daily. 0 11/07/2021 11/26/2022 Discontinued (Side Effects) End: 05-28-2023 amLODIPine (NORVASC) 5 mg ta blet Take 5 mg by mouth. 0 05/28/2023 Discontinued (Discontinued by Patient) Comment on above: Take 5 mg by mouth o nce daily. Take 5 mg by mouth. apixaban 2.5 mg oral tablet (20 sources) Factor Xa Inhibitor apixaban (EL IQUIS) 2.5 mg tab(s) Take by mouth twice daily. Active Comment on above: Take by mouth twice daily. atorvastatin 40 mg oral tablet (20 sources) HMG-CoA Reductase Inhibitor Start: 08-01-19 atorvastatin (LIPITOR) 40 mg tablet Take 40 mg by mouth. 07/31/2022 Active Comment on above: Take 40 mg by mouth. azaTHIOprine 50 mg oral tablet (20 sources) Purine Antimetabolite Start: 08-11-19 End: 12-02-19 take 1 tablet by mouth twice daily azaTHIOprine (IMURAN) 50 mg tablet Take 1 tablet by mouth two times a day. 180 tablet 09/03/2023 12/02/2023 Active Start: 07-13-2023 End: 10-11-2023 take 1.5 tablets by mouth once daily azaTHIOprine (IMURAN) 50 mg tablet Take 1.5 tablets by mouth once daily. 135 tablet 0 07/13/2023 08/11/2023 Discontinued Start: 12-30-2022 End: 07-13-2023 take 1 tablet by mouth once daily azaTHIOprine (IMURAN) 50 mg tablet Take 1 tablet by mouth once daily. 90 tablet 0 07/09/2023 07/13/2023 Discontinued Start: 10-27-2022 End: 01-25-2023 take 2 tablets by mouth once daily azaTHIOprine (IMURAN) 50 mg tablet Indications: 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 with renal involvement (HCC) , Chronic sinusitis, unspecified location , High risk medication use Take 2 tablets by mouth once daily. 180 tablet 0 10/27/2022 12/27/2022 Discontinued Start: 06-05-2022 End: 10-25-2022 take 2 tablets by mouth once daily azaTHIOprine (IMURAN) 50 mg tablet Indications: 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 with renal involvement (HCC) , Chronic sinusitis, unspecified location , High risk medication use Take 2 tablets by mouth once daily. 180 tablet 0 07/27/2022 10/25/2022 Active Start: 05-04-2022 End: 06-03-2022 take 1 tablet by mouth once daily azaTHIOprine (IMURAN) 50 mg tablet Take 1 tablet by mouth once daily. 30 tablet 0 05/04/2022 Active Comment on above: Take 1 tablet by laverne th once daily. Take 2 tablets by mo [facility] once daily. B Complex-Vitamin C-Folic Acid (Dialyvite) 100-1 mg tablet (7 sources) Start: 08-19-2021 take 1 tablet by mouth once daily B Complex-Vitamin C-Folic Acid (Dialyvite) 100-1 mg tablet Active 1 TAB PO Daily August 19, 2021 1:41pm Start: 08-19-2021 take 1 tablet by laverne once daily B Complex-Vitamin C-Folic Acid (Dialyvite) 100-1 mg tablet Active 1 TAB PO Daily August 18, 2021 11:00pm Start: 08-19-2021 take 1 tablet by laverne th once daily B Complex-Vitamin C-Folic Acid (Dialyvite) 100-1 mg tablet Active 1 TAB PO Daily August 19, 2021 12:00am cinacalcet 30 mg oral tablet (19 sources) Calcium-sensing Receptor Agonist take 1 tablet by mouth three times weekly cinacalcet (SENSIPAR) 30 mg tablet Take 30 mg by mouth three times a week. Active DIALYVITE 100-1 mg tab (20 sources) Start: take 1 tablet by mouth once daily DIALYVITE 100-1 mg tab Take 1 tablet by mouth once daily. 02/01/2022 Active Start: 02-01-2022 take 1 tablet by laverne th once daily DIALYVITE 100-1 mg tab Take 1 tablet by mouth once daily. 0 02/01/2022 Suspended Start: 02-01-2022 take 1 tablet by laverne th once daily DIALYVITE 100-1 mg tab Take 1 tablet by mouth once daily. 0 02/01/2022 Active Comment on above: Take 1 tablet by laverne th once daily. enteric contrast (will be provided with radiology test) (1 source) Start: 07-18-19 End: 07-19-19 enteric contrast (will be provided with radiology test) Indications: S/P cholecystectomy , Infection in abdomen (HCC) For CT ABD WO IVCON order Administer, As Directed One Time Only, via Oral, Rectal, both Oral and Rectal, Enteric Tube, Stoma or Indwelling Catheter, Enteric Contrast as designated per enteric contrast guidelines 1 Each 0 07/17/2021 07/18/2021 Active Comment on above: For CT ABD WO IVCON order Administer, As Directed One Time Only, via Oral, Rectal, both Oral and Rectal, Enteric Tube, Stoma or Indwelling Catheter, Enteric Contrast as designated per enteric contrast guidelines gentamicin 1 mg/ml topical cream (20 sources) gentamicin 0.1% 0.1 % cream Apply to affected area as needed. Active Comment on above: Apply to affected ar ea as needed. iv contrast (will be provided with radiology test) (2 sources) Start: 07-22-19 End: 07-23-19 iv contrast (will be provided with radiology test) CT ABD/PEL -Inject, intravenously, once for 1 dose.No IV access, insert saline lock prior to the beginning of sedation, infusion, injection of imaging exam. Discontinue saline lock post exam. If Pt. has a central line or IVAD, may access for administration according to line specific nursing protocol. Once exam is complete flush line and de-access according to line specific nursing protocol in the CT contrast administration guidelines link. 1 Each 0 07/21/2021 07/22/2021 Active Comment on above: CT ABD/PEL -Inject, intravenously, once for 1 dose.No IV access, insert saline lock prior to the beginning of sedation, infusion, injection of imaging exam. Discontinue saline lock post exam. If Pt. has a central line or IVAD, may access for administration according to line specific nursing protocol. Once exam is complete flush line and de-access according to line specific nursing protocol in the CT contrast administration guidelines link. 24 hr lamoTRIgine 100 mg extended release oral tablet (20 sources) Mood Stabilizer, Anti-epileptic Agent Start: 11-07-19 23 End: 12-04-19 24 take 1 tablet by mouth twice daily lamoTRIgine ER (LAMICTAL XR) 100 mg 24 hr tablet Indications: Localization-related (focal) (partial) symptomatic epilepsy and epileptic syndromes with complex partial seizures, not intractable, without status epilepticus (HCC) Take 1 tablet by mouth two times a day. 180 tablet 1 06/07/2023 12/04/2023 Active Start: 11-03-2022 End: 05-02-2023 take 1 tablet by mouth twice daily lamoTRIgine (LAMICTAL) 25 mg tablet Indications: Localization-related (focal) (partial) symptomatic epilepsy and epileptic syndromes with complex partial seizures, not intractable, without status epilepticus (HCC) Take 1 tablet by mouth twice daily. In addition to 100 mg for a total of 125 mg twice a day. 60 tablet 5 11/03/2022 11/26/2022 Discontinued (Course of therapy completed) Start: 11-03-2022 End: 11-03-2023 take 1 tablet by mouth twice daily lamoTRIgine (LAMICTAL) 100 mg tablet Indications: Localization-related (focal) (partial) symptomatic epilepsy and epileptic syndromes with complex partial seizures, not intractable, without status epilepticus (HCC) Take 1 tablet by mouth twice daily. In addition to 25 mg for a total of 125 mg twice a day. 60 tablet 11 11/03/2022 11/06/2022 Discontinued Start: 09-28-2022 End: 11-03-2022 lamoTRIgine (LAMICTAL) 25 mg tablet Take 50 mg by mouth. 0 09/28/2022 11/03/2022 Discontinued Comment on above: Take 50 mg by mouth. Take 1 tablet by laverne th twice daily. In addition to 100 mg for a total of 125 mg twice a day. Take 1 tablet by laverne th twice daily. In addition to 25 mg for a total of 125 mg twice a day. Take 1 tablet by laverne th twice daily. Take 1 tablet by laverne th two times a day. lanthanum carbonate 1000 mg chewable tablet (20 sources) Start: 3 lanthanum (FOSRENOL) 1,000 mg chewable tablet 08/11/2022 Active pantoprazole 40 mg delayed release oral tablet (20 sources) Proton Pump Inhibitor Start: 3 take 1 tablet by mouth every twelve hours pantoprazole DR (PROTONIX) 40 mg tablet Take 1 tablet by mouth every 12 hours. 10/23/2022 Active Comment on above: Take 1 tablet by laverne th every 12 hours. perflutren lipid microspheres 1.3 mL in NaCl (PF) 0.9% 10 mL injection (DEFINITY) (20 sources) Start: End: perflutren lipid microspheres 1.3 mL in NaCl (PF) 0.9% 10 mL injection (DEFINITY) Start: 11-05-2021 End: 12-27-2022 perflutren lipid microsphere s 1.3 mL in NaCl (PF) 0.9% 10 mL injection (DEFINITY) Start: 11-05-2021 End: 02-04-2023 perflutren lipid microsphere s 1.3 mL in NaCl (PF) 0.9% 10 mL injection (DEFINITY) polyethylene glycol 3350 26087 mg powder for oral solution (20 sources) Osmotic Laxative Start: 08-19-2021 Polyethylene Glycol 3350 Active 17 GM PO As Directed August 19, 2021 12:00am Comment on above: Take by mouth once d aily. Dissolve dose in 4 - 8 ounces of liquid and take as directed. Take by mouth as nee ded. Dissolve dose in 4 - 8 ounces of liquid and take as directed. 125 ml sodium chloride 9 mg/ml prefilled syringe (20 sources) Start: 11-05-2021 End: 02-04-2023 sodium chloride 0.9 % (flush) 10 mL (BD POSIFLUSH) Start: 10-10-2021 End: 10-13-2021 NaCl 0.9% iv infusion Start: 10-10-2021 End: 10-13-2021 NaCl (PF) 0.9% 10-20 mL inje ction warfarin sodium 5 mg oral tablet (8 sources) Vitamin K Antagonist Start: 10-25-2023 take 1 tablet by mouth once warfarin (COUMADIN) 5 mg tablet Take 5 mg by mouth once daily. 7.5mg on Wednesday ONLY remainder days 5mg 10/25/2023 Active Completed/Discontinued Medications Medication Drug Class(es) Dates Sig (Normalized) Sig (Original) acetaminophen 325 mg oral tablet (3 sources) Start: 10-10-2021 End: 10-13-2021 acetaminophen 650 mg tab(s) (TYLENOL) Start: 06-20-2021 End: 06-23-2021 acetaminophen 650 mg tab(s) (TYLENOL) B Complex-Vitamin C-Folic Acid (DIALYVITE 800) 0.8 mg tab (20 sources) End: 02-11-2022 take 1 tablet by mouth once daily B Complex-Vitamin C-Folic Acid (DIALYVITE 800) 0.8 mg tab Take 0.8 mg by mouth once daily. 0 02/11/2022 Discontinued (Dosage adjustment) take 1 tablet by mouth once kate y B Complex-Vitamin C-Folic Acid (DIALYVITE 800) 0.8 mg tab Take 0.8 mg by mouth once daily. 0 Active take 1 tablet by mouth once kate y B Complex-Vitamin C-Folic Acid (DIALYVITE 800) 0.8 mg tab Take 0.8 mg by mouth once daily. 0 Suspended Comment on above: Take 0.8 mg by mouth once daily. bebtelovimab 175 mg injection (1 source) Start: 2 End: 2 bebtelovimab 175 mg injection benzonatate 200 mg oral capsule (18 sources) Non-narcotic Antitussive Start: 3 End: 4 Benzonatate 200 mg capsule Take 200 mg by mouth. 0 02/02/2023 05/28/2023 Discontinued (Discontinued by Patient) Comment on above: Take 200 mg by mouth . calcitriol 0.0005 mg oral capsule (20 sources) Vitamin D3 Analog End: 3 take 1 capsule by mouth two times weekly calcitriol (ROCALTROL) 0.5 mcg capsule Take 0.5 mcg by mouth two times a week. 0 12/27/2022 Discontinued take 1 capsule by mo uth three times weekly calcitriol (ROCALTROL) 0.5 mcg capsule T nilesh 0.5 mcg by mouth three times a week. 0 Active Comment on above: Take 0.5 mcg by mout h three times a week. Take 0.5 mcg by mout h two times a week. carvedilol 12.5 mg oral tablet (20 sources) alpha-Adrenergic Latonia, beta-Adrenergic Latonia Start: 09-07-2021 End: 11-26-2022 carvedilol (COREG) 12.5 mg tablet Start: 08-19-2021 Carvedilol Act anna 12.5 MG PO Daily August 18, 2021 11:00pm Takes if systolic BP > 140 cephalexin 500 mg oral capsule (20 sources) Cephalosporin Antibacterial End: 12-27-2022 cephALEXin (KEFLEX) 500 mg capsule Take 500 mg by mouth as needed. 0 12/27/2022 Discontinued Comment on above: Take 500 mg by mouth as needed. cholecalciferol 0.05 mg oral capsule (20 sources) Vitamin D End: 01-12-2023 take 1 capsule by mouth once daily Cholecalciferol, Vitamin D3, 50 mcg (2,000 unit) cap Take 3,000 Units by mouth once daily. 0 01/12/2023 Discontinued Comment on above: Take by mouth once d aily. Take 3,000 Units by mouth once daily. cilgavimab 300 mg intramuscular injection (EVUSHELD) (1 source) Start: 06-20-2021 End: 06-20-2021 cilgavimab 300 mg intramuscular injection (EVUSHELD) diphenhydrAMINE (4 sources) Histamine-1 Receptor Antagonist Start: 10-10-2021 End: 10-13-2021 diphenhydrAMINE 50 mg injection (BENADRYL) Start: 06-20-2021 End: 06-23-2021 diphenhydrAMINE 50 mg (BENAD RYL) Start: 06-20-2021 End: 06-23-2021 diphenhydrAMINE 50 mg inject ion (BENADRYL) 1 ml EPINEPHrine 1 mg/ml injection (3 sources) alpha-Adrenergic Agonist, beta-Adrenergic Agonist, Catecholamine Start: 10-10-2021 End: 10-13-2021 EPINEPHrine 1 mg/mL (1 mL) 0.3 mg injection Start: 06-20-2021 End: 06-23-2021 EPINEPHrine 1 mg/mL (1 mL) 0 .3 mg injection 1 ml epoetin leandro-epbx 67172 unt/ml injection (11 sources) Erythropoiesis-stimulating Agent Start: 11-10-2023 End: 11-10-2023 inject 1 dose by subcutaneous injection once 40,000 Units, SUBCUTANEOUS, ONCE, 1 dose, On 8/28/24 at 1100, Refrigerate - Protect From Light - Do Not Shake, Medication Substitution: [facility] preferred product has been replaced with the insurance mandated product Start: 10-27-2023 End: 10-27-2023 epoetin leandro-epbx 40,000 Uni ts injection (RETACRIT) Start: 10-20-2023 End: 10-20-2023 epoetin leandro-epbx 40,000 Uni ts injection (RETACRIT) Start: 10-13-2023 End: 10-13-2023 epoetin leandro-epbx 40,000 Uni ts injection (RETACRIT) Start: 09-29-2023 End: 09-29-2023 epoetin leandro-epbx 40,000 Uni ts injection (RETACRIT) Start: 09-08-2023 End: 09-08-2023 epoetin leandro-epbx 40,000 Uni ts injection (RETACRIT) Start: 09-01-2023 End: 09-01-2023 epoetin leandro-epbx 40,000 Uni ts injection (RETACRIT) Start: 08-18-2023 End: 08-18-2023 epoetin leandro-epbx 40,000 Uni ts injection (RETACRIT) Start: 08-11-2023 End: 08-11-2023 epoetin leandro-epbx 40,000 Uni ts injection (RETACRIT) Start: 08-04-2023 End: 08-04-2023 epoetin leandro-epbx 40,000 Uni ts injection (RETACRIT) Start: 07-21-2023 End: 07-21-2023 epoetin leandro-epbx 40,000 Uni ts injection (RETACRIT) ergocalciferol 1.25 mg oral capsule (8 sources) Provitamin D2 Compound Start: 05-02-2021 End: 08-05-2021 take 1 capsule by mouth two times weekly ergocalciferol 50,000 unit capsule (VITAMIN D2, DRISDOL) Take 1 capsule by mouth two times a week. 8 capsule 1 05/02/2021 08/05/2021 Discontinued (Course of therapy completed) Comment on above: Take 1 capsule by [facility] two times a week. famotidine 20 mg oral tablet (4 sources) Histamine-2 Receptor Antagonist Start: 11-10-2022 End: 11-26-2022 take 1 tablet by mouth once daily famotidine (PEPCID) 20 mg tablet Take 1 tablet by mouth once daily. 15 tablet 0 11/10/2022 11/26/2022 Discontinued (Course of therapy completed) Comment on above: Take 1 tablet by laverne th once daily. folic acid 1 mg oral tablet (20 sources) Start: 11-11-2022 End: 10-18-2023 folic acid 1 mg tablet 12 hr guaiFENesin 600 mg extended release oral tablet (3 sources) guaiFENesin (MUCINEX) 600 mg 12 hr tablet Take 600 mg by mouth. 0 Active Comment on above: Take 600 mg by mouth . hydrALAZINE hydrochloride 10 mg oral tablet (3 sources) Arteriolar Vasodilator Start: 04-21-2021 take 1 tablet by mouth three times daily hydrALAZINE (APRESOLINE) 10 mg tablet Take 10 mg by mouth three times daily. 0 04/21/2021 Active Comment on above: Take 10 mg by mouth three times daily. hydrocortisone 100 mg injection (3 sources) Corticosteroid Start: 10-10-2021 End: 10-13-2021 hydrocortisone sodium succinate (PF) 100 mg injection (Solu-CORTEF) Start: 06-20-2021 End: 06-23-2021 hydrocortisone sodium succin ate (PF) 100 mg injection (Solu-CORTEF) magnesium oxide 400 mg oral tablet (4 sources) Start: 10-02-2022 End: 11-26-2022 take 0.5 tablet by mouth once daily magnesium oxide (MAG-OX) 400 mg (241.3 mg magnesium) tablet Take 0.5 tablets by mouth once daily. 0 10/02/2022 11/26/2022 Discontinued (Course of therapy completed) Comment on above: Take 0.5 tablets by mouth once daily. metoclopramide 10 mg oral tablet (6 sources) Dopamine-2 Receptor Antagonist Start: 10-10-2021 End: 10-13-2021 metoclopramide HCl 5 mg tab(s) (REGLAN) Start: 10-10-2021 End: 10-13-2021 metoclopramide HCl 5 mg inje ction (REGLAN) 24 hr metoprolol succinate 25 mg extended release oral tablet (20 sources) beta-Adrenergic Latonia Start: 04-29-2023 End: 05-26-2023 take 1 tablet by mouth every hour metoprolol succinate ER (TOPROL XL) 25 mg 24 hr tablet Take 1 tablet by mouth every afternoon. 0 04/29/2023 05/26/2023 Discontinued (Changing Therapy/Dosage Form) Start: 04-21-2021 take 1 tablet by laverne th once daily metoprolol succinate ER (TOPROL XL) 50 mg 24 hr tablet Take 50 mg by mouth once daily. 0 04/21/2021 Active take 1 tablet by laverne th twice daily metoprolol tartrate, short acting, (LOPRESSOR) 25 mg tablet Take 25 mg by mouth two times a day. Active metoprolol tartr ate, short acting, (LOPRESSOR) 25 mg tablet Take 12.5 mg by mouth two times a day. 0 Active Comment on above: Take 50 mg by mouth once daily. Take 25 mg by mouth twice daily. Take 12.5 mg by mout h two times a day. Take 1 tablet by laverne th every afternoon. NIFEdipine 60 mg osmotic 24 hr extended release oral tablet (10 sources) Dihydropyridine Calcium Channel Latonia Start: 07-03-19 End: 08-06-19 take 1 tablet by mouth twice daily NIFEdipine ER (PROCARDIA XL) 60 mg 24 hr tablet Take 1 tablet by mouth twice daily. 60 tablet 0 07/02/2021 08/05/2021 Discontinued (Course of therapy completed) Start: 04-21-2021 take 1 tablet by laverne th once daily NIFEdipine XL (ADALAT CC) 90 mg 24 hr tablet Take 90 mg by mouth once daily. 0 04/21/2021 Suspended Start: 04-21-2021 take 1 tablet by laverne th once daily NIFEdipine XL (ADALAT CC, PROCARDIA XL) 60 mg 24 hr tablet Take 60 mg by mouth once daily. 0 04/21/2021 Active Comment on above: Take 60 mg by mouth once daily. Take 90 mg by mouth once daily. Take 1 tablet by laverne th twice daily. omeprazole 20 mg delayed release oral capsule (8 sources) Proton Pump Inhibitor Start: 09-06-19 End: 11-27-19 23 take 1 capsule by mouth once omeprazole (PRILOSEC) 20 mg capsule Take 1 capsule by mouth every afternoon. 0 09/05/2022 11/26/2022 Discontinued (Course of therapy completed) Comment on above: Take 1 capsule by mo uth every afternoon. ondansetron 8 mg disintegrating oral tablet (20 sources) Serotonin-3 Receptor Antagonist Start: 05-23-19 End: 05-26-19 take 1 tablet by mouth every four hours ondansetron orally disintegrating (ZOFRAN ODT) 8 mg disintegrating tablet dissolve 1 tablet ON TONGUE every 4 hours if needed nausea and vomiting 0 05/23/2023 05/26/2023 Discontinued (Changing Therapy/Dosage Form) Start: 02-02-2023 take 1 tablet by laverne th every eight hours as needed ondansetron (ZOFRAN) 8 mg tablet Take 8 mg by mouth three times a day as needed. 02/02/2023 Active Start: 02-12-2022 End: 11-17-2022 take 1 tablet by mouth every six hours as needed ondansetron (ZOFRAN) 4 mg tablet Take 1 tablet by mouth every 6 hours as needed for nausea/vomiting for up to 7 days. 20 tablet 0 11/10/2022 11/17/2022 Active Start: 10-10-2021 End: 10-13-2021 ondansetron 4 mg tab(s) (ZOF RAN) Start: 10-10-2021 End: 10-13-2021 ondansetron (PF) 4 mg inject ion (ZOFRAN) Start: 06-20-2021 End: 06-23-2021 ondansetron orally disintegr ating 4 mg tab(s) (ZOFRAN ODT) Start: 06-20-2021 End: 06-23-2021 ondansetron (PF) 4 mg inject ion (ZOFRAN) Start: 04-21-2021 take 1 tablet by laverne th every six hours as needed ondansetron (ZOFRAN) 4 mg tablet Take 4 mg by mouth every 6 hours as needed. 0 04/21/2021 Active Comment on above: Take 4 mg by mouth e very 6 hours as needed. Take 1 tablet by laverne th every 6 hours as needed for nausea/vomiting for up to 7 days. Take 8 mg by mouth t hree times a day as needed. dissolve 1 tablet ON TONGUE every 4 hours if needed nausea and vomiting Potassium (19 sources) End: 12-27-2022 take 200 mg by mouth once daily POTASSIUM ORAL Take 200 mg by mouth once daily. 0 12/27/2022 Discontinued (Duplicate Entry) take 200 mg by mouth once daily POTASSIUM ORAL Take 200 mg by mouth once daily. 0 Active Comment on above: Take 200 mg by mouth once daily. microencapsulated potassium chloride 20 meq extended release oral tablet (20 sources) Start: 07-29-2022 End: 05-28-2023 potassium chloride ER (KLOR-CON) 20 mEq tablet Take 20 mEq by mouth. 0 07/29/2022 05/28/2023 Discontinued Comment on above: Take 20 mEq by mouth . predniSONE 10 mg oral tablet (20 sources) Start: 02-02-2023 predniSONE (DELTASONE) 10 mg tablet 20 mg. 0 02/02/2023 Active Start: 08-28-2021 End: 04-21-2022 Prednisone Active 5 MG PO As Directed August 27, 2021 11:00pm Start: 08-19-2021 End: 08-28-2021 take 10 mg by mouth once daily Prednisone Discontinued 10 MG PO Daily August 18, 2021 11:00pm August 28, 2021 12:39pm Start: 08-08-2021 End: 07-27-2022 Prednisone Active 2.5 MG PO As Directed August 27, 2021 11:00pm Start: 08-08-2021 End: 11-06-2021 take 1 tablet by mouth once daily predniSONE (DELTASONE) 1 mg tablet Take 1 tablet by mouth once daily. 90 tablet 0 08/08/2021 09/08/2021 Discontinued Start: 07-03-2021 End: 09-08-2021 take 2 tablets by mouth once daily predniSONE (DELTASONE) 20 mg tablet Take 2 tablets by mouth once daily. 60 tablet 0 07/03/2021 09/08/2021 Discontinued Start: 05-16-2021 End: 08-14-2021 take 1 tablet by mouth once daily predniSONE (DELTASONE) 10 mg tablet Take 1 tablet by mouth once daily. 90 tablet 0 05/16/2021 08/14/2021 Active Start: 05-16-2021 End: 09-06-2021 take 1 tablet by mouth once daily predniSONE (DELTASONE) 20 mg tablet Take 1 tablet by mouth once daily. 90 tablet 0 06/08/2021 09/06/2021 Active Start: 05-16-2021 End: 08-14-2021 take 1 tablet by mouth once daily predniSONE (DELTASONE) 5 mg tablet Take 1 tablet by mouth once daily. 90 tablet 0 05/16/2021 08/14/2021 Active Start: 04-21-2021 take 3 tablets by mo uth every twenty-four hours predniSONE (DELTASONE) 20 mg tablet TAKE 3 TABLETS BY MOUTH EVERY 24 HOURS 0 04/21/2021 Active take 2 tablets by mo uth once daily predniSONE (DELTASONE) 20 mg tablet Take 40 mg by mouth once daily. 0 Suspended Comment on above: Take 1 tablet by laverne th once daily. TAKE 3 TABLETS BY MO UTH EVERY 24 HOURS Take 40 mg by mouth once daily. Take 2 tablets by mo uth once daily. 20 mg. prochlorperazine 5 mg oral tablet (7 sources) Phenothiazine Start: End: prochlorperazine 5 mg tab(s) (COMPAZINE) Start: 10-10-2021 End: 10-13-2021 prochlorperazine 5 mg inject ion (COMPAZINE) Start: 06-20-2021 End: 06-23-2021 prochlorperazine 5 mg inject ion (COMPAZINE) sevelamer carbonate 800 mg oral tablet (20 sources) Phosphate Binder Start: 08-19-2021 End: 12-27-2022 sevelamer carbonate (RENVELA) 800 mg tablet Sevelamer Carbonate Active 1600 MG PO 3 times per day with meals August 19, 2021 1:41pm 0 08/19/2021 12/27/2022 Discontinued Start: 08-19-2021 take 1600 mg by mout h three times daily at mealtime Sevelamer Carbonate Active 1600 MG PO 3 times per day with meals August 18, 2021 11:00pm Start: 07-02-2021 End: 02-11-2022 take 2 tablets by mouth three times daily at mealtime sevelamer (RENAGEL) 800 mg tablet Take 2 tablets by mouth three times daily with meals. 180 tablet 0 07/02/2021 02/11/2022 Discontinued (Course of therapy completed) take 1 tablet by laverne th three times daily at mealtime sevelamer (RENAGEL) 800 mg tablet Take 800 mg by mouth three times daily with meals. 0 Suspended Comment on above: Take 800 mg by mouth three times daily with meals. Take 2 tablets by mo [facility] three times daily with meals. Sevelamer Carbonate Active 1600 MG PO 3 times per day with meals August 19, 2021 1:41pm sucralfate 100 mg/ml oral suspension (20 sources) Aluminum Complex Start: End: take 10 mL by mouth four times daily sucralfate (CARAFATE) 100 mg/mL suspension Take 10 mL by mouth four times daily. 414 mL 5 12/03/2022 07/07/2023 Discontinued (Discontinued by Patient) Comment on above: Take 10 mL by mouth four times daily. sulfamethoxazole 400 mg / trimethoprim 80 mg oral tablet (20 sources) Dihydrofolate Reductase Inhibitor Antibacterial, Sulfonamide Antimicrobial Start: End: take 1 tablet by mouth three times weekly, then take 1 tablet by mouth once daily sulfamethoxazole-trim ethoprim (BACTRIM) 400-80 mg per tablet Indications: 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 with renal involvement (HCC) Take 1 tablet by mouth three times a week. Take one tablet on days not getting dialysis 75 tablet 0 12/11/2021 06/23/2022 Discontinued Start: 08-19-2021 End: 12-11-2021 take 1 tablet by mouth once Sulfamethoxazole-Trimethoprim Active 1 T AB PO every Wednesday, Wednesday, and Wednesday August 18, 2021 11:00pm Start: 07-04-2021 End: 08-03-2021 take 1 tablet by mouth once sulfamethoxazole-trimethoprim (BACTRIM,SEPTRA) 400-80 mg per tablet Take 1 tablet by mouth every Wednesday,Wednesday,Wednesday. Take on days not undergoing dialysis 12 tablet 0 07/04/2021 08/03/2021 Active Start: 04-28-2021 End: 10-25-2021 take 1 tablet by mouth three times weekly, then take 1 tablet by mouth once daily sulfamethoxazole-trimethoprim (BACTRIM) 400-80 mg per tablet Indications: 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 with renal involvement (HCC) Take 1 tablet by mouth three times a week. Take one tablet on days not getting dialysis 75 tablet 0 04/28/2021 10/25/2021 Active Comment on above: Take 1 tablet by laverne th three times a week. Take one tablet on days not getting dialysis Take 1 tablet by laverne th every Wednesday,Wednesday,Wednesday. Take on days not undergoing dialysis Sulfamethoxazole-Tri methoprim Active 1 TAB PO every Wednesday, Wednesday, and Thursday August 19, 2021 1:47pm tixagevimab 300 mg intramuscular injection (EVUSHELD) (1 source) Start: 06-20-2021 End: 06-20-2021 tixagevimab 300 mg intramuscular injection (EVUSHELD) NEGATED: Highlighted row has not occurred!No Current Medications (1 source) No Current Medic ations Problems Active Problems Problem Classification Problem Date Documented Date Episodic/Chronic Abdominal hernia (1 source) Recurrent hernia of anterior abdominal wall; Translations: [Incisional hernia without obstruction or gangrene] Episodic Acute and chronic tonsillitis (1 source) Hypertrophy of lingual tonsil; Translations: [Hypertrophy of tonsils] 12-03-2022 Chronic Acute and unspecified renal failure (1 source) Acute renal failure syndrome; Translations: [Acute kidney failure, unspecified] 04-12-2021 Episodic Acute cerebrovascular disease (20 sources) Cerebrovascular accident; Translations: [Cerebral infarction, unspecified] Onset: 3 10-01-2022 Chronic Acute cerebrovascular disease (1 source) Acute cerebrovascular disease Onset: 4 Allergic reactions (1 source) Urticaria, unspecified; Translations: [URTICARIA UNSPECIFIED] Onset: 3 Episodic Cardiac dysrhythmias (2 sources) Cardiac arrhythmia; Translations: [Cardiac dysrhythmia, unspecified] Onset: 2 04-18-2021 Chronic Cardiac dysrhythmias (3 sources) Tachycardia; Translations: [Tachycardia, unspecified] Onset: 2 04-20-2021 Episodic Chronic kidney disease (20 sources) End-stage renal disease; Translations: [End stage renal disease] Onset: 2 06-25-2021 Chronic Deficiency and other anemia (1 source) Anemia in chronic kidney disease; Translations: [ANEMIA IN CHRONIC KIDNEY DISEASE] Onset: 3 Chronic Deficiency and other anemia (1 source) Macrocytic anemia; Translations: [Nutritional anemia, unspecified] 11-24-2022 Episodic Diseases of white blood cells (4 sources) Leukocytosis; Translations: [Elevated white blood cell count, unspecified] Chronic Disorders of lipid metabolism (20 sources) Mixed hyperlipidemia; Translations: [Mixed hyperlipidemia] Onset: 3 12-21-2022 Chronic E Codes: Adverse effects of medical drugs (1 source) Adverse effect of other systemic antibiotics, initial encounter; Translations: [ADVERSE EFF OTH SYS ABX INITIAL ENC] Onset: 3 Episodic Epilepsy; convulsions (20 sources) Localization-related symptomatic epilepsy; Translations: [Localization-related (focal) (partial) symptomatic epilepsy and epileptic syndromes with complex partial seizures, not intractable, without status epilepticus] Onset: 3 11-03-2022 Chronic Epilepsy; convulsions (1 source) Seizure; Translations: [Unspecified convulsions] 10-01-2022 Episodic Esophageal disorders (1 source) Laryngopharyngeal reflux; Translations: [Gastro-esophageal reflux disease without esophagitis] 12-03-2022 Chronic Essential hypertension (1 source) Hypertensive disorder; Translations: [Essential (primary) hypertension] Chronic Fluid and electrolyte disorders (7 sources) Acidosis; Translations: [Acidosis] Onset: 3 04-12-2021 Episodic Hypertension with complications and secondary hypertension (1 source) Hypertensive chronic kidney disease with stage 5 chronic kidney disease or end stage renal disease; Translations: [HYPERTENSIVE CKD W/STAGE 5 CKD/ESRD] Onset: 3 Chronic Immunity disorders (1 source) Immunodeficiency, unspecified; Translations: [IMMUNODEFICIENCY UNSPECIFIED] Onset: 3 Chronic Immunizations and screening for infectious disease (2 sources) Hepatitis B surface antigen positive; Translations: [Other specified abnormal immunological findings in serum] Onset: 4 Episodic Nutritional deficiencies (4 sources) Vitamin D deficiency; Translations: [Vitamin D deficiency, unspecified] Chronic Other aftercare (6 sources) Long-term current use of systemic steroid; Translations: [group home (current) use of systemic steroids] Episodic Other aftercare (1 source) Post-discharge follow-up; Translations: [Encounter for follow-up examination after completed treatment for conditions other than malignant neoplasm] Episodic Other aftercare (1 source) Other intermission coordinator (current) drug therapy; Translations: [OTH SHELTER CURRENT DRUG THERAPY] Onset: 3 Episodic Other aftercare (2 sources) Taking high risk medication; Translations: [Other [facility] (current) drug therapy] Episodic Other aftercare (1 source) ocean transportation intermediary (current) use of anticoagulants; Translations: [group home (current) use of anticoagulants] Onset: 4 Episodic Other circulatory disease (1 source) Antineutrophil cytoplasmic antibody positive vasculitis; Translations: [Arteritis, unspecified] 04-21-2021 Chronic Other circulatory disease (1 source) Arteritis, unspecified; Translations: [Arteritis, unspecified] Onset: 2 Chronic Other circulatory disease (1 source) History of cerebrovascular accident; Translations: [Personal history of transient ischemic attack (TIA), and cerebral infarction without residual deficits] 10-14-2023 Episodic Other connective tissue disease (2 sources) Female pelvic floor dysfunction; Translations: [Other specified disorders of muscle] 01-12-2023 Episodic Other connective tissue disease (1 source) Muscle weakness; Translations: [Muscle weakness (generalized)] 02-11-2023 Episodic Other connective tissue disease (1 source) Spasm; Translations: [Other muscle spasm] 02-16-2023 Episodic Other connective tissue disease (1 source) Pain in lower limb Onset: 4 Episodic Other diseases of kidney and ureters (1 source) Secondary hyperparathyroidism of renal origin; Translations: [Secondary hyperparathyroidism of renal origin] Onset: 4 Chronic Other lower respiratory disease (3 sources) Dyspnea; Translations: [Shortness of breath] Episodic Other lower respiratory disease (3 sources) Cough; Translations: [Cough] 07-18-2021 Episodic Other lower respiratory disease (1 source) Chronic cough; Translations: [Chronic cough] 12-03-2022 Episodic Other nervous system disorders (5 sources) Acute postoperative pain; Translations: [Other acute postprocedural pain] 08-28-2021 Episodic Other nutritional; endocrine; and metabolic disorders (20 sources) Obese class I; Translations: [Obesity, unspecified] Onset: 2 06-25-2021 Chronic Other nutritional; endocrine; and metabolic disorders (1 source) Obesity, unspecified; Translations: [OBESITY UNSPECIFIED] Onset: 3 Chronic Other nutritional; endocrine; and metabolic disorders (1 source) Body mass index (BMI) 37.0-37.9, adult; Translations: [BODY MASS INDEX BMI 37.0-37.9 ADULT] Onset: 3 Chronic Other screening for suspected conditions (not mental disorders or infectious disease) (1 source) CT of chest abnormal; Translations: [Abnormal findings on diagnostic imaging of other specified body structures] Chronic Other upper respiratory disease (1 source) Rhinitis; Translations: [Chronic rhinitis] 04-28-2023 Chronic Other upper respiratory disease (1 source) Hoarse; Translations: [Dysphonia] Episodic Other upper respiratory disease (1 source) Bleeding from nose; Translations: [Epistaxis] 12-03-2022 Episodic Other upper respiratory infections (10 sources) Recurrent sinusitis; Translations: [Unspecified sinusitis (chronic)] 04-13-2021 Chronic Other upper respiratory infections (2 sources) Rhinitis; Translations: [Acute nasopharyngitis [common cold]] Episodic Peritonitis and intestinal abscess (1 source) Infectious disease of abdomen; Translations: [Peritonitis, unspecified] Episodic Rehabilitation care; fitting of prostheses; and adjustment of devices (2 sources) Patient encounter status; Translations: [Encounter for fitting and adjustment of other specified devices] Chronic Residual codes; unclassified (2 sources) Awaiting transplantation; Translations: [Awaiting organ transplant status] Chronic Residual codes; unclassified (1 source) Awaiting organ transplant status; Translations: [AWAITING ORGAN TRANSPLANT STATUS] Onset: 3 Chronic Residual codes; unclassified (5 sources) Patient encounter status; Translations: [Encounter for prophylactic measures, unspecified] Episodic Respiratory failure; insufficiency; arrest (adult) (5 sources) Respiratory failure; insufficiency; arrest (adult) 04-12-2021 Comment on above: ACUTE RENAL FAILURE ACUTE RENAL FAILURE N17.2 Systemic lupus erythematosus and connective tissue disorders (20 sources) Granulomatosis with polyangiitis; 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] Onset: 2 Chronic Transient cerebral ischemia (4 sources) Transient cerebral ischemia; Translations: [Transient cerebral ischemic attack, unspecified] Onset: 4 10-14-2023 Chronic Unclassified (2 sources) Body mass index [BMI] 39.0-39.9, adult 04-12-2021 Unclassified (2 sources) Body mass index (BMI) of 38.0 to 38.9 in adult 04-13-2021 Unclassified (1 source) NSTEMI, initial episode of care 04-12-2021 Unclassified (1 source) Abnormal chest CT 04-13-2021 Unclassified (1 source) Acute superficial venous thrombosis of lower extremity 04-17-2021 Unclassified (1 source) Arrhythmia 04-18-2021 Unclassified (1 source) Vasculitis, ANCA positive 04-21-2021 Unclassified (1 source) CONTACT W/AND (SUSP) EXPOS COVID-19; Translations: [CONTACT W/AND (SUSP) EXPOS COVID-19] Onset: 2 Unclassified (2 sources) Cough, unspecified type; Translations: [Cough, unspecified type] Onset: 3 Unclassified (1 source) Annual Exam Onset: 4 Unclassified (1 source) Transplant Evaluation Onset: 3 Unclassified (1 source) PAIN RT LEG - POSS BLOOD CLOT Onset: 4 Urinary tract infections (2 sources) Urinary tract infectious disease; Translations: [Urinary tract infection, site not specified] 04-17-2021 Episodic Varicose veins of lower extremity (1 source) Varicose veins of unspecified lower extremity with pain; Translations: [Varicose veins of unspecified lower extremity with pain] Onset: 4 Episodic Viral infection (1 source) Disease caused by 2019-nCoV; Translations: [COVID-19] Episodic Past or Other Problems Problem Classification Problem Date Documented Da te Episodic/Chronic Abdominal pain (7 sources) Right upper quadrant pain; Translations: [Right upper quadrant pain] Onset: 01-12-2023 Episodic Biliary tract disease (20 sources) Common bile duct calculus; Translations: [Calculus of bile duct without cholangitis or cholecystitis without obstruction] Onset: 06-25-2021 06-28-2021 Episodic Complications of surgical procedures or medical care (20 sources) Post-ERCP acute pancreatitis; Translations: [Other postprocedural complications and disorders of digestive system] Onset: 06-29-2021 07-02-2021 Episodic Deficiency and other anemia (20 sources) Anemia; Translations: [Anemia, unspecified] Onset: 12-24-2022 04-17-2021 Episodic Deficiency and other anemia (2 sources) Anemia, unspecified; Translations: [Anemia, unspecified] Onset: 12-24-2022 Episodic Fever of unknown origin (8 sources) Fever, unspecified; Translations: [Fever] Onset: 08-24-2021 Episodic Hepatitis (20 sources) Acute hepatitis; Translations: [Acute viral hepatitis, unspecified] Onset: 06-24-2021 Episodic Nausea and vomiting (5 sources) Nausea and vomiting; Translations: [Nausea with vomiting, unspecified] Onset: 12-22-2022 11-13-2022 Episodic Other connective tissue disease (1 source) Other specified soft tissue disorders; Translations: [Other specified soft tissue disorders] Onset: 09-03-2022 Episodic Other connective tissue disease (1 source) Other specified disorders of muscle; Translations: [High-tone pelvic floor dysfunction in female] Onset: 02-11-2023 Episodic Other screening for suspected conditions (not mental disorders or infectious disease) (5 sources) CT of chest abnormal; Translations: [Nonspecific (abnormal) findings on radiological and other examination of other intrathoracic organs] Onset: 04-06-2023 04-13-2021 Episodic Phlebitis; thrombophlebitis and thromboembolism (5 sources) Acute thrombosis of superficial vein of lower limb; Translations: [Venous embolism and thrombosis of superficial vessels of lower extremity] Onset: 12-30-2022 04-17-2021 Episodic Results Test Name Value Interpretation Reference Range Facility CBC W Auto Differential pane l (Bld)on 11-10-2023 Basophils (Bld) [#/Vol] 0.04 10*3/uL Normal <0.11 [facility] Comment on above: Order Comment: Speci men Type: BLOOD SPECIMENOrdering Facility: [facility] Address: [address] [place] [address] Performed By: #### 5 7021-8 ####[facility] LABCLIA [id number] [place] [address] Basophils/100 WBC (Bld) 0.6 % Normal [facility] Comment on above: Order Comment: Speci men Type: BLOOD SPECIMENOrdering Facility: [facility] Address: [address] [place] [address] Performed By: #### 5 7021-8 ####[facility] LABCLIA [id number] [place] [address] Differential cell count method Nom (Bld) Auto Normal [facility] Comment on above: Order Comment: Speci men Type: BLOOD SPECIMENOrdering Facility: [facility] Address: [address] [place] [address] Performed By: #### 5 7021-8 ####[facility] LABCLIA [id number] [place] [address] Eosinophils (Bld) [#/Vol] 0.27 10*3/uL Normal <0.46 [facility] Comment on above: Order Comment: Speci men Type: BLOOD SPECIMENOrdering Facility: [facility] Address: [address] [place] [address] Performed By: #### 5 7021-8 ####[facility] LABCLIA [id number] [place] [address] Eosinophils/100 WBC (Bld) 3.8 % Normal [facility] Comment on above: Order Comment: Speci men Type: BLOOD SPECIMENOrdering Facility: [facility] Address: [address] [place] [address] Performed By: #### 5 7021-8 ####[facility] LABCLIA [id number] [place] [address] Erythrocyte distribution width (RBC) [Ratio] 16.9 % High 11.5-15.0 [facility] Comment on above: Order Comment: Speci men Type: BLOOD SPECIMENOrdering Facility: [facility] Address: [address] [place] [address] Performed By: #### 5 7021-8 ####[facility] LABCLIA [id number] [place] [address] Hematocrit (Bld) [Volume fraction] 31.4 % Low 36.0-46.0 [facility] Comment on above: Order Comment: Speci men Type: BLOOD SPECIMENOrdering Facility: [facility] Address: [address] [place] [address] Performed By: #### 5 7021-8 ####[facility] LABCLIA [id number] [place] [address] Hemoglobin (Bld) [Mass/Vol] 10.7 g/dL Low 11.5-15.5 [facility] Comment on above: Order Comment: Speci men Type: BLOOD SPECIMENOrdering Facility: [facility] Address: [address] [place] [address] Performed By: #### 5 7021-8 ####[facility] LABIA [id number] [place] [address] Immature granulocytes (Bld) [#/Vol] 0.10 10*3/uL High <0.10 [facility] Comment on above: Order Comment: Speci men Type: BLOOD SPECIMENOrdering Facility: [facility] Address: [address] [place] [address] Performed By: #### 5 7021-8 ####[facility] LABCLIA [id number] [place] [address] Immature granulocytes/100 WBC (Bld) 1.4 % Normal [facility] Comment on above: Order Comment: Speci men Type: BLOOD SPECIMENOrdering Facility: [facility] Address: [address] [place] [address] Performed By: #### 5 7021-8 ####[facility] LABIA [id number] [place] [address] Lymphocytes (Bld) [#/Vol] 0.96 10*3/uL Low 1.00-4.00 [facility] Comment on above: Order Comment: Speci men Type: BLOOD SPECIMENOrdering Facility: [facility] Address: [address] [place] [address] Performed By: #### 5 7021-8 ####[facility] LABCLIA [id number] [place] [address] Lymphocytes/100 WBC (Bld) 13.7 % Normal [facility] Comment on above: Order Comment: Speci men Type: BLOOD SPECIMENOrdering Facility: [facility] Address: [address] [place] [address] Performed By: #### 5 7021-8 ####[facility] LABCLIA [id number] [place] [address] MCH (RBC) [Entitic mass] 36.5 pg High 26.0-34.0 [facility] Comment on above: Order Comment: Speci men Type: BLOOD SPECIMENOrdering Facility: [facility] Address: [address] [place] [address] Performed By: #### 5 7021-8 ####[facility] LABCLIA [id number] [place] [address] MCHC (RBC) [Mass/Vol] 34.1 g/dL Normal 30.5-36.0 [facility] Comment on above: Order Comment: Speci men Type: BLOOD SPECIMENOrdering Facility: [facility] Address: [address] [place] [address] Performed By: #### 5 7021-8 ####[facility] LABCLIA [id number] [place] [address] MCV (RBC) [Entitic vol] 107.2 fL High 80.0-100.0 [facility] Comment on above: Order Comment: Speci men Type: BLOOD SPECIMENOrdering Facility: [facility] Address: [address] [place] [address] Performed By: #### 5 7021-8 ####[facility] LABCLIA [id number] [place] [address] Monocytes (Bld) [#/Vol] 0.48 10*3/uL Normal <0.87 [facility] Comment on above: Order Comment: Speci men Type: BLOOD SPECIMENOrdering Facility: [facility] Address: [address] [place] [address] Performed By: #### 5 7021-8 ####[facility] LABCLIA [id number] [place] [address] Monocytes/100 WBC (Bld) 6.8 % Normal [facility] Comment on above: Order Comment: Speci men Type: BLOOD SPECIMENOrdering Facility: [facility] Address: [address] [place] [address] Performed By: #### 5 7021-8 ####[facility] LABCLIA [id number] [place] [address] Neutrophils (Bld) [#/Vol] 5.18 10*3/uL Normal 1.45-7.50 [facility] Comment on above: Order Comment: Speci men Type: BLOOD SPECIMENOrdering Facility: [facility] Address: [address] [place] [address] Performed By: #### 5 7021-8 ####[facility] LABCLIA [id number] [place] [address] Neutrophils/100 WBC (Bld) 73.7 % Normal [facility] Comment on above: Order Comment: Speci men Type: BLOOD SPECIMENOrdering Facility: [facility] Address: [address] [place] [address] Performed By: #### 5 7021-8 ####[facility] LABCLIA [id number] [place] [address] Nucleated RBC (Bld) [#/Vol] 10*3/uL Normal <0.01 [facility] Comment on above: Order Comment: Speci men Type: BLOOD SPECIMENOrdering Facility: [facility] Address: [address] [place] [address] Performed By: #### 5 7021-8 ####[facility] LABCLIA [id number] [place] [address] Nucleated RBC/100 WBC (Bld) [Ratio] 0.0 /100 WBC Normal [facility] Comment on above: Order Comment: Speci men Type: BLOOD SPECIMENOrdering Facility: [facility] Address: [address] [place] [address] Performed By: #### 5 7021-8 ####[facility] LABCLIA [id number] [place] [address] Platelet mean volume (Bld) [Entitic vol] 9.3 fL Normal 9.0-12.7 [facility] Comment on above: Order Comment: Speci men Type: BLOOD SPECIMENOrdering Facility: [facility] Address: [address] [place] [address] Performed By: #### 5 7021-8 ####[facility] LABCLIA [id number] [place] [address] Platelets (Bld) [#/Vol] 272 10*3/uL Normal 150-400 [facility] Comment on above: Order Comment: Speci men Type: BLOOD SPECIMENOrdering Facility: [facility] Address: [address] [place] [address] Performed By: #### 5 7021-8 ####[facility] LABCLIA [id number] [place] [address] RBC (Bld) [#/Vol] 2.93 10*6/uL Low 3.90-5.20 [facility] Comment on above: Order Comment: Speci men Type: BLOOD SPECIMENOrdering Facility: [facility] Address: [address] [place] [address] Performed By: #### 5 7021-8 ####[facility] LABCLIA [id number] [place] [address] WBC (Bld) [#/Vol] 7.03 10*3/uL Normal 3.70-11.00 [facility] Comment on above: Order Comment: Speci men Type: BLOOD SPECIMENOrdering Facility: [facility] Address: [address] [place] [address] Performed By: #### 5 7021-8 ####[facility] LABCLIA [id number] [place] [address] Comprehensive metabolic 2000 panelon 11-10-2023 Albumin [Mass/Vol] 4.4 g/dL Normal 3.9-4.9 [facility] Comment on above: Order Comment: Speci men Type: BLOOD SPECIMENOrdering Facility: [facility] Address: [address] [place] [address] Performed By: #### 2 4323-8 ####[facility] LABCLIA [id number] [place] [address] ALP [Catalytic activity/Vol] 125 U/L High 34-123 [facility] Comment on above: Order Comment: Speci men Type: BLOOD SPECIMENOrdering Facility: [facility] Address: [address] [place] [address] Performed By: #### 2 4323-8 ####[facility] LABCLIA [id number] [place] [address] ALT [Catalytic activity/Vol] 16 U/L Normal 7-38 [facility] Comment on above: Order Comment: Speci men Type: BLOOD SPECIMENOrdering Facility: [facility] Address: [address] [place] [address] Performed By: #### 2 4323-8 ####[facility] LABCLIA [id number] [place] [address] Anion gap [Moles/Vol] 12 mmol/L Normal 8-15 [facility] Comment on above: Order Comment: Speci men Type: BLOOD SPECIMENOrdering Facility: [facility] Address: [address] [place] [address] Performed By: #### 2 4323-8 ####[facility] LABCLIA [id number] [place] [address] AST [Catalytic activity/Vol] 22 U/L Normal 13-35 [facility] Comment on above: Order Comment: Speci men Type: BLOOD SPECIMENOrdering Facility: [facility] Address: [address] [place] [address] Performed By: #### 2 4323-8 ####[facility] LABCLIA [id number] [place] [address] Bilirubin [Mass/Vol] 0.4 mg/dL Normal 0.2-1.3 [facility] Comment on above: Order Comment: Speci men Type: BLOOD SPECIMENOrdering Facility: [facility] Address: [address] [place] [address] Performed By: #### 2 4323-8 ####[facility] LABCLIA [id number] [place] [address] Calcium [Mass/Vol] 9.7 mg/dL Normal 8.5-10.2 [facility] Comment on above: Order Comment: Speci men Type: BLOOD SPECIMENOrdering Facility: [facility] Address: [address] [place] [address] Performed By: #### 2 4323-8 ####[facility] LABCLIA [id number] [place] [address] Chloride [Moles/Vol] 97 mmol/L Low 98-107 [facility] Comment on above: Order Comment: Speci men Type: BLOOD SPECIMENOrdering Facility: [facility] Address: [address] [place] [address] Performed By: #### 2 4323-8 ####[facility] LABCLIA [id number] [place] [address] CO2 [Moles/Vol] 31 mmol/L High 22-30 [facility] Comment on above: Order Comment: Speci men Type: BLOOD SPECIMENOrdering Facility: [facility] Address: [address] [place] [address] Performed By: #### 2 4323-8 ####[facility] LABCLIA [id number] [place] [address] Creatinine [Mass/Vol] 15.24 mg/dL High 0.58-0.96 [facility] Comment on above: Order Comment: Speci men Type: BLOOD SPECIMENOrdering Facility: [facility] Address: [address] [place] [address] Performed By: #### 2 4323-8 ####[facility] LABCLIA [id number] [place] [address] Creatinine and Glomerular filtration rate.predicted panel (S/P/Bld) 3 mL/min/1.73m??? Low >=60 [facility] Comment on above: Order Comment: Speci men Type: BLOOD SPECIMENOrdering Facility: [facility] Address: [address] [place] [address] Result Comment: Rylee mated Glomerular Filtration Rate (eGFR) is calculated using the 2020 CKD-EPI creatinine equation. This equation utilizes serum creatinine, sex, and age as parameters. The creatinine assay has traceable calibration to isotope dilution-mass spectrometry. Refer to KDIGO guidelines for clinical interpretation. In patients with unstable renal function, e.g. those with acute kidney injury, the eGFR may not accurately reflect actual GFR. Performed By: #### 2 4323-8 ####[facility] LABCLIA [id number] [place] [address] Glucose [Mass/Vol] 123 mg/dL High 74-99 [facility] Comment on above: Order Comment: Speci men Type: BLOOD SPECIMENOrdering Facility: [facility] Address: [address] [place] [address] Result Comment: The [place] [employer] (ADA) provides guidance for cutoff values for fasting glucose and random glucose. The ADA defines fasting as no caloric intake for at least 8 hours. Fasting plasma glucose results between 100 to 125 mg/dL indicate increased risk for diabetes (prediabetes).Fasting plasma glucose results greater than or equal to 126 mg/dL meet the criteria for diagnosis of diabetes. In the absence of unequivocal hyperglycemia, results should be confirmed by repeat testing. In a patient with classic symptoms of hyperglycemia or hyperglycemic crisis, random plasma glucose results greater than or equal to 200 mg/dL meet the criteria for diagnosis of diabetes.Reference: Standards of Medical Care in Diabetes 2016, [place] [employer]. Diabetes Care. 2016.39(Suppl 1). Performed By: #### 2 4323-8 ####[facility] LABCLIA [id number] [place] [address] Potassium [Moles/Vol] 3.5 mmol/L Low 3.7-5.1 [facility] Comment on above: Order Comment: Speci men Type: BLOOD SPECIMENOrdering Facility: [facility] Address: [address] [place] [address] Performed By: #### 2 4323-8 ####[facility] LABCLIA [id number] [place] [address] Protein [Mass/Vol] 6.2 g/dL Low 6.3-8.0 [facility] Comment on above: Order Comment: Speci men Type: BLOOD SPECIMENOrdering Facility: [facility] Address: [address] [place] [address] Performed By: #### 2 4323-8 ####[facility] LABCLIA [id number] [place] [address] Sodium [Moles/Vol] 140 mmol/L Normal 136-144 [facility] Comment on above: Order Comment: Speci men Type: BLOOD SPECIMENOrdering Facility: [facility] Address: [address] [place] [address] Performed By: #### 2 4323-8 ####[facility] LABCLIA [id number] [place] [address] Urea nitrogen [Mass/Vol] 48 mg/dL High 7-21 [facility] Comment on above: Order Comment: Speci men Type: BLOOD SPECIMENOrdering Facility: [facility] Address: [address] [place] [address] Performed By: #### 2 4323-8 ####[facility] LABCLIA [id number] [place] [address] CNCOon 11-09-2023 CNCO Letter Text Normal [facility] CNPNon 11-08-2023 CNPN Normal [facility] CNPNon 11-05-2023 CNPN Normal [facility] CBC W Auto Differential pane l (Bld)on 11-03-2023 Basophils (Bld) [#/Vol] 0.05 10*3/uL Normal <0.11 [facility] Comment on above: Order Comment: Speci men Type: BLOOD SPECIMENOrdering Facility: [facility] Address: [address] [place] [address] Performed By: #### 5 7021-8 ####[facility] LABCLIA [id number] [place] [address] Basophils/100 WBC (Bld) 0.5 % Normal [facility] Comment on above: Order Comment: Speci men Type: BLOOD SPECIMENOrdering Facility: [facility] Address: [address] [place] [address] Performed By: #### 5 7021-8 ####[facility] LABCLIA [id number] [place] [address] Differential cell count method Nom (Bld) Auto Normal [facility] Comment on above: Order Comment: Speci men Type: BLOOD SPECIMENOrdering Facility: [facility] Address: [address] [place] [address] Performed By: #### 5 7021-8 ####[facility] LABCLIA [id number] [place] [address] Eosinophils (Bld) [#/Vol] 0.25 10*3/uL Normal <0.46 [facility] Comment on above: Order Comment: Speci men Type: BLOOD SPECIMENOrdering Facility: [facility] Address: [address] [place] [address] Performed By: #### 5 7021-8 ####[facility] LABCLIA [id number] [place] [address] Eosinophils/100 WBC (Bld) 2.6 % Normal [facility] Comment on above: Order Comment: Speci men Type: BLOOD SPECIMENOrdering Facility: [facility] Address: [address] [place] [address] Performed By: #### 5 7021-8 ####[facility] LABCLIA [id number] [place] [address] Erythrocyte distribution width (RBC) [Ratio] 18.3 % High 11.5-15.0 [facility] Comment on above: Order Comment: Speci men Type: BLOOD SPECIMENOrdering Facility: [facility] Address: [address] [place] [address] Performed By: #### 5 7021-8 ####[facility] LABCLIA [id number] [place] [address] Hematocrit (Bld) [Volume fraction] 32.7 % Low 36.0-46.0 [facility] Comment on above: Order Comment: Speci men Type: BLOOD SPECIMENOrdering Facility: [facility] Address: [address] [place] [address] Performed By: #### 5 7021-8 ####[facility] LABCLIA [id number] [place] [address] Hemoglobin (Bld) [Mass/Vol] 11.3 g/dL Low 11.5-15.5 [facility] Comment on above: Order Comment: Speci men Type: BLOOD SPECIMENOrdering Facility: [facility] Address: [address] [place] [address] Performed By: #### 5 7021-8 ####[facility] LABCLIA [id number] [place] [address] Immature granulocytes (Bld) [#/Vol] 0.13 10*3/uL High <0.10 [facility] Comment on above: Order Comment: Speci men Type: BLOOD SPECIMENOrdering Facility: [facility] Address: [address] [place] [address] Performed By: #### 5 7021-8 ####[facility] LABCLIA [id number] [place] [address] Immature granulocytes/100 WBC (Bld) 1.3 % Normal [facility] Comment on above: Order Comment: Speci men Type: BLOOD SPECIMENOrdering Facility: [facility] Address: [address] [place] [address] Performed By: #### 5 7021-8 ####[facility] LABCLIA [id number] [place] [address] Lymphocytes (Bld) [#/Vol] 1.12 10*3/uL Normal 1.00-4.00 [facility] Comment on above: Order Comment: Speci men Type: BLOOD SPECIMENOrdering Facility: [facility] Address: [address] [place] [address] Performed By: #### 5 7021-8 ####[facility] LABCLIA [id number] [place] [address] Lymphocytes/100 WBC (Bld) 11.6 % Normal [facility] Comment on above: Order Comment: Speci men Type: BLOOD SPECIMENOrdering Facility: [facility] Address: [address] [place] [address] Performed By: #### 5 7021-8 ####[facility] LABCLIA [id number] [place] [address] MCH (RBC) [Entitic mass] 36.5 pg High 26.0-34.0 [facility] Comment on above: Order Comment: Speci men Type: BLOOD SPECIMENOrdering Facility: [facility] Address: [address] [place] [address] Performed By: #### 5 7021-8 ####[facility] LABCLIA [id number] [place] [address] MCHC (RBC) [Mass/Vol] 34.6 g/dL Normal 30.5-36.0 [facility] Comment on above: Order Comment: Speci men Type: BLOOD SPECIMENOrdering Facility: [facility] Address: [address] [place] [address] Performed By: #### 5 7021-8 ####[facility] LABCLIA [id number] [place] [address] MCV (RBC) [Entitic vol] 105.5 fL High 80.0-100.0 [facility] Comment on above: Order Comment: Speci men Type: BLOOD SPECIMENOrdering Facility: [facility] Address: [address] [place] [address] Performed By: #### 5 7021-8 ####[facility] LABCLIA [id number] [place] [address] Monocytes (Bld) [#/Vol] 0.65 10*3/uL Normal <0.87 [facility] Comment on above: Order Comment: Speci men Type: BLOOD SPECIMENOrdering Facility: [facility] Address: [address] [place] [address] Performed By: #### 5 7021-8 ####[facility] LABCLIA [id number] [place] [address] Monocytes/100 WBC (Bld) 6.7 % Normal [facility] Comment on above: Order Comment: Speci men Type: BLOOD SPECIMENOrdering Facility: [facility] Address: [address] [place] [address] Performed By: #### 5 7021-8 ####[facility] LABCLIA [id number] [place] [address] Neutrophils (Bld) [#/Vol] 7.45 10*3/uL Normal 1.45-7.50 [facility] Comment on above: Order Comment: Speci men Type: BLOOD SPECIMENOrdering Facility: [facility] Address: [address] [place], [place] [address] Performed By: #### 5 7021-8 ####[facility] LABCLIA [id number] [place] [address] Neutrophils/100 WBC (Bld) 77.3 % Normal [facility] Comment on above: Order Comment: Speci men Type: BLOOD SPECIMENOrdering Facility: [facility] Address: [address] [place] [address] Performed By: #### 5 7021-8 ####[facility] LABCLIA [id number] [place] [address] Nucleated RBC (Bld) [#/Vol] 10*3/uL Normal <0.01 [facility] Comment on above: Order Comment: Speci men Type: BLOOD SPECIMENOrdering Facility: [facility] Address: [address] [place] [address] Performed By: #### 5 7021-8 ####[facility] LABCLIA [id number] [place] [address] Nucleated RBC/100 WBC (Bld) [Ratio] 0.0 /100 WBC Normal [facility] Comment on above: Order Comment: Speci men Type: BLOOD SPECIMENOrdering Facility: [facility] Address: [address] [place] [address] Performed By: #### 5 7021-8 ####[facility] LABCLIA [id number] [place] [address] Platelet mean volume (Bld) [Entitic vol] 9.4 fL Normal 9.0-12.7 [facility] Comment on above: Order Comment: Speci men Type: BLOOD SPECIMENOrdering Facility: [facility] Address: [address] [place] [address] Performed By: #### 5 7021-8 ####[facility] LABCLIA [id number] [place] [address] Platelets (Bld) [#/Vol] 327 10*3/uL Normal 150-400 [facility] Comment on above: Order Comment: Speci men Type: BLOOD SPECIMENOrdering Facility: [facility] Address: [address] [place] [address] Performed By: #### 5 7021-8 ####[facility] LABCLIA [id number] [place] [address] RBC (Bld) [#/Vol] 3.10 10*6/uL Low 3.90-5.20 [facility] Comment on above: Order Comment: Speci men Type: BLOOD SPECIMENOrdering Facility: [facility] Address: [address] [place] [address] Performed By: #### 5 7021-8 ####[facility] LABIA [id number] [place] [address] WBC (Bld) [#/Vol] 9.65 10*3/uL Normal 3.70-11.00 [facility] Comment on above: Order Comment: Speci men Type: BLOOD SPECIMENOrdering Facility: [facility] Address: [address] [place] [address] Performed By: #### 5 7021-8 ####[facility] LABIA [id number] [place] [address] CNCOon 11-03-2023 CNCO Letter Text Normal [facility] CNPNon 11-01-2023 CNPN Normal [facility] CBC W Auto Differential pane l (Bld)on 10-27-2023 Basophils (Bld) [#/Vol] 0.04 10*3/uL Normal <0.11 [facility] Comment on above: Order Comment: Speci men Type: BLOOD SPECIMENOrdering Facility: [facility] Address: [address] [place] [address] Performed By: #### 5 7021-8 ####[facility] LABIA [id number] [place] [address] Basophils/100 WBC (Bld) 0.4 % Normal [facility] Comment on above: Order Comment: Speci men Type: BLOOD SPECIMENOrdering Facility: [facility] Address: [address] [place] [address] Performed By: #### 5 7021-8 ####[facility] LABCLIA [id number] [place] [address] Differential cell count method Nom (Bld) Auto Normal [facility] Comment on above: Order Comment: Speci men Type: BLOOD SPECIMENOrdering Facility: [facility] Address: [address] [place] [address] Performed By: #### 5 7021-8 ####[facility] LABCLIA [id number] [place] [address] Eosinophils (Bld) [#/Vol] 0.26 10*3/uL Normal <0.46 [facility] Comment on above: Order Comment: Speci men Type: BLOOD SPECIMENOrdering Facility: [facility] Address: [address] [place] [address] Performed By: #### 5 7021-8 ####[facility] LABCLIA [id number] [place] [address] Eosinophils/100 WBC (Bld) 2.5 % Normal [facility] Comment on above: Order Comment: Speci men Type: BLOOD SPECIMENOrdering Facility: [facility] Address: [address] [place] [address] Performed By: #### 5 7021-8 ####[facility] LABCLIA [id number] [place] [address] Erythrocyte distribution width (RBC) [Ratio] 18.3 % High 11.5-15.0 [facility] Comment on above: Order Comment: Speci men Type: BLOOD SPECIMENOrdering Facility: [facility] Address: [address] [place] [address] Performed By: #### 5 7021-8 ####[facility] LABCLIA [id number] [place] [address] Hematocrit (Bld) [Volume fraction] 29.5 % Low 36.0-46.0 [facility] Comment on above: Order Comment: Speci men Type: BLOOD SPECIMENOrdering Facility: [facility] Address: [address] [place] [address] Performed By: #### 5 7021-8 ####[facility] LABCLIA [id number] [place] [address] Hemoglobin (Bld) [Mass/Vol] 9.9 g/dL Low 11.5-15.5 [facility] Comment on above: Order Comment: Speci men Type: BLOOD SPECIMENOrdering Facility: [facility] Address: [address] [place] [address] Performed By: #### 5 7021-8 ####[facility] LABCLIA [id number] [place] [address] Immature granulocytes (Bld) [#/Vol] 0.16 10*3/uL High <0.10 [facility] Comment on above: Order Comment: Speci men Type: BLOOD SPECIMENOrdering Facility: [facility] Address: [address] [place] [address] Performed By: #### 5 7021-8 ####[facility] LABCLIA [id number] [place] [address] Immature granulocytes/100 WBC (Bld) 1.6 % Normal [facility] Comment on above: Order Comment: Speci men Type: BLOOD SPECIMENOrdering Facility: [facility] Address: [address] [place] [address] Performed By: #### 5 7021-8 ####[facility] LABCLIA [id number] [place] [address] Lymphocytes (Bld) [#/Vol] 1.05 10*3/uL Normal 1.00-4.00 [facility] Comment on above: Order Comment: Speci men Type: BLOOD SPECIMENOrdering Facility: [facility] Address: [address] [place], [place] [address] Performed By: #### 5 7021-8 ####[facility] LABCLIA [id number] [place] [address] Lymphocytes/100 WBC (Bld) 10.3 % Normal [facility] Comment on above: Order Comment: Speci men Type: BLOOD SPECIMENOrdering Facility: [facility] Address: [address] [place] [address] Performed By: #### 5 7021-8 ####[facility] LABCLIA [id number] [place] [address] MCH (RBC) [Entitic mass] 36.4 pg High 26.0-34.0 [facility] Comment on above: Order Comment: Speci men Type: BLOOD SPECIMENOrdering Facility: [facility] Address: [address] [place] [address] Performed By: #### 5 7021-8 ####[facility] LABIA [id number] [place] [address] MCHC (RBC) [Mass/Vol] 33.6 g/dL Normal 30.5-36.0 [facility] Comment on above: Order Comment: Speci men Type: BLOOD SPECIMENOrdering Facility: [facility] Address: [address] [place] [address] Performed By: #### 5 7021-8 ####[facility] LABCLIA [id number] [place] [address] MCV (RBC) [Entitic vol] 108.5 fL High 80.0-100.0 [facility] Comment on above: Order Comment: Speci men Type: BLOOD SPECIMENOrdering Facility: [facility] Address: [address] [place] [address] Performed By: #### 5 7021-8 ####[facility] LABIA [id number] [place] [address] Monocytes (Bld) [#/Vol] 0.77 10*3/uL Normal <0.87 [facility] Comment on above: Order Comment: Speci men Type: BLOOD SPECIMENOrdering Facility: [facility] Address: [address] [place] [address] Performed By: #### 5 7021-8 ####[facility] LABCLIA [id number] [place] [address] Monocytes/100 WBC (Bld) 7.5 % Normal [facility] Comment on above: Order Comment: Speci men Type: BLOOD SPECIMENOrdering Facility: [facility] Address: [address] [place] [address] Performed By: #### 5 7021-8 ####[facility] LABCLIA [id number] [place] [address] Neutrophils (Bld) [#/Vol] 7.93 10*3/uL High 1.45-7.50 [facility] Comment on above: Order Comment: Speci men Type: BLOOD SPECIMENOrdering Facility: [facility] Address: [address] [place] [address] Performed By: #### 5 7021-8 ####[facility] LABCLIA [id number] [place] [address] Neutrophils/100 WBC (Bld) 77.7 % Normal [facility] Comment on above: Order Comment: Speci men Type: BLOOD SPECIMENOrdering Facility: [facility] Address: [address] [place] [address] Performed By: #### 5 7021-8 ####[facility] LABCLIA [id number] [place] [address] Nucleated RBC (Bld) [#/Vol] 10*3/uL Normal <0.01 [facility] Comment on above: Order Comment: Speci men Type: BLOOD SPECIMENOrdering Facility: [facility] Address: [address] [place] [address] Performed By: #### 5 7021-8 ####[facility] LABCLIA [id number] [place] [address] Nucleated RBC/100 WBC (Bld) [Ratio] 0.0 /100 WBC Normal [facility] Comment on above: Order Comment: Speci men Type: BLOOD SPECIMENOrdering Facility: [facility] Address: [address] [place] [address] Performed By: #### 5 7021-8 ####[facility] LABIA [id number] [place] [address] Platelet mean volume (Bld) [Entitic vol] 9.1 fL Normal 9.0-12.7 [facility] Comment on above: Order Comment: Speci men Type: BLOOD SPECIMENOrdering Facility: [facility] Address: [address] [place] [address] Performed By: #### 5 7021-8 ####[facility] LABIA [id number] [place] [address] Platelets (Bld) [#/Vol] 291 10*3/uL Normal 150-400 [facility] Comment on above: Order Comment: Speci men Type: BLOOD SPECIMENOrdering Facility: [facility] Address: [address] [place] [address] Performed By: #### 5 7021-8 ####[facility] LABIA [id number] [place] [address] RBC (Bld) [#/Vol] 2.72 10*6/uL Low 3.90-5.20 [facility] Comment on above: Order Comment: Speci men Type: BLOOD SPECIMENOrdering Facility: [facility] Address: [address] [place] [address] Performed By: #### 5 7021-8 ####[facility] LABIA [id number] [place] [address] WBC (Bld) [#/Vol] 10.21 10*3/uL Normal 3.70-11.00 [facility] Comment on above: Order Comment: Speci men Type: BLOOD SPECIMENOrdering Facility: [facility] Address: [address] [place] [address] Performed By: #### 5 7021-8 ####[facility] LABCLIA [id number] [place] [address] Comprehensive metabolic 2000 panelon 10-27-2023 Albumin [Mass/Vol] 4.0 g/dL Normal 3.9-4.9 [facility] Comment on above: Order Comment: Speci men Type: BLOOD SPECIMENOrdering Facility: [facility] Address: [address] [place] [address] Performed By: #### 2 4323-8 ####[facility] LABCLIA [id number] [place] [address] ALP [Catalytic activity/Vol] 152 U/L High 34-123 [facility] Comment on above: Order Comment: Speci men Type: BLOOD SPECIMENOrdering Facility: [facility] Address: [address] [place] [address] Performed By: #### 2 4323-8 ####[facility] LABCLIA [id number] [place] [address] ALT [Catalytic activity/Vol] 10 U/L Normal 7-38 [facility] Comment on above: Order Comment: Speci men Type: BLOOD SPECIMENOrdering Facility: [facility] Address: [address] [place] [address] Performed By: #### 2 4323-8 ####[facility] LABCLIA [id number] [place] [address] Anion gap [Moles/Vol] 11 mmol/L Normal 8-15 [facility] Comment on above: Order Comment: Speci men Type: BLOOD SPECIMENOrdering Facility: [facility] Address: [address] [place], [place] [address] Performed By: #### 2 4323-8 ####[facility] LABCLIA [id number] [place] [address] AST [Catalytic activity/Vol] 14 U/L Normal 13-35 [facility] Comment on above: Order Comment: Speci men Type: BLOOD SPECIMENOrdering Facility: [facility] Address: [address] [place] [address] Performed By: #### 2 4323-8 ####[facility] LABCLIA [id number] [place] [address] Bilirubin [Mass/Vol] 0.5 mg/dL Normal 0.2-1.3 [facility] Comment on above: Order Comment: Speci men Type: BLOOD SPECIMENOrdering Facility: [facility] Address: [address] [place] [address] Performed By: #### 2 4323-8 ####[facility] LABCLIA [id number] [place] [address] Calcium [Mass/Vol] 9.5 mg/dL Normal 8.5-10.2 [facility] Comment on above: Order Comment: Speci men Type: BLOOD SPECIMENOrdering Facility: [facility] Address: [address] [place] [address] Performed By: #### 2 4323-8 ####[facility] LABCLIA [id number] [place] [address] Chloride [Moles/Vol] 96 mmol/L Low 98-107 [facility] Comment on above: Order Comment: Speci men Type: BLOOD SPECIMENOrdering Facility: [facility] Address: [address] [place] [address] Performed By: #### 2 4323-8 ####[facility] LABCLIA [id number] [place] [address] CO2 [Moles/Vol] 30 mmol/L Normal 22-30 [facility] Comment on above: Order Comment: Speci men Type: BLOOD SPECIMENOrdering Facility: [facility] Address: [address] [place] [address] Performed By: #### 2 4323-8 ####[facility] LABCLIA [id number] [place] [address] Creatinine [Mass/Vol] 19.52 mg/dL High 0.58-0.96 [facility] Comment on above: Order Comment: Isaiah mitchell Type: BLOOD SPECIMENOrdering Facility: [facility] Address: [address] [place] [address] Performed By: #### 2 4323-8 ####[facility] LABCLIA [id number] [place] [address] Creatinine and Glomerular filtration rate.predicted panel (S/P/Bld) 2 mL/min/1.73m??? Low >=60 [facility] Comment on above: Order Comment: Isaiah mitchell Type: BLOOD SPECIMENOrdering Facility: [facility] Address: [address] [place] [address] Result Comment: Rylee mated Glomerular Filtration Rate (eGFR) is calculated using the 2020 CKD-EPI creatinine equation. This equation utilizes serum creatinine, sex, and age as parameters. The creatinine assay has traceable calibration to isotope dilution-mass spectrometry. Refer to KDIGO guidelines for clinical interpretation. In patients with unstable renal function, e.g. those with acute kidney injury, the eGFR may not accurately reflect actual GFR. Performed By: #### 2 4323-8 ####[facility] LABCLIA [id number] [place] [address] Glucose [Mass/Vol] 132 mg/dL High 74-99 [facility] Comment on above: Order Comment: Isaiah mitchell Type: BLOOD SPECIMENOrdering Facility: [facility] Address: [address] [place] [address] Result Comment: The [place] Diabetes [employer] (ADA) provides guidance for cutoff values for fasting glucose and random glucose. The ADA defines fasting as no caloric intake for at least 8 hours. Fasting plasma glucose results between 100 to 125 mg/dL indicate increased risk for diabetes (prediabetes).Fasting plasma glucose results greater than or equal to 126 mg/dL meet the criteria for diagnosis of diabetes. In the absence of unequivocal hyperglycemia, results should be confirmed by repeat testing. In a patient with classic symptoms of hyperglycemia or hyperglycemic crisis, random plasma glucose results greater than or equal to 200 mg/dL meet the criteria for diagnosis of diabetes.Reference: Standards of Medical Care in Diabetes 2016, [place] [employer]. Diabetes Care. 2016.39(Suppl 1). Performed By: #### 2 4323-8 ####[facility] LABCLIA [id number] [place] [address] Potassium [Moles/Vol] 3.6 mmol/L Low 3.7-5.1 [facility] Comment on above: Order Comment: Speci men Type: BLOOD SPECIMENOrdering Facility: [facility] Address: [address] [place] [address] Performed By: #### 2 4323-8 ####[facility] LABCLIA [id number] [place] [address] Protein [Mass/Vol] 5.8 g/dL Low 6.3-8.0 [facility] Comment on above: Order Comment: Speci men Type: BLOOD SPECIMENOrdering Facility: [facility] Address: [address] [place] [address] Performed By: #### 2 4323-8 ####[facility] LABCLIA [id number] [place] [address] Sodium [Moles/Vol] 137 mmol/L Normal 136-144 [facility] Comment on above: Order Comment: Speci men Type: BLOOD SPECIMENOrdering Facility: [facility] Address: [address] [place] [address] Performed By: #### 2 4323-8 ####[facility] LABCLIA [id number] [place] [address] Urea nitrogen [Mass/Vol] 46 mg/dL High 7-21 [facility] Comment on above: Order Comment: Speci men Type: BLOOD SPECIMENOrdering Facility: [facility] Address: [address] [place] [address] Performed By: #### 2 4323-8 ####[facility] LABCLIA [id number] [place] [address] Ferritin SerPl-mCncon 2023 Ferritin [Mass/Vol] 490.0 ng/mL High 14.7-205.1 [facility] Comment on above: Order Comment: Speci men Type: BLOOD SPECIMENOrdering Facility: [facility] Address: [address] [place] [address] Performed By: #### 5 0190-8, 2131-9, 2275-06, 2283-10 ####[facility] LABCLIA [id number] [place] [address] [place] Folate SerPl-ncon 10-27-19 Folate [Mass/Vol] ng/mL Normal >4.7 [facility] Comment on above: Order Comment: Speci men Type: BLOOD SPECIMENOrdering Facility: [facility] Address: [address] [place] [address] Result Comment: A re sult of > 20 ng/mL is not necessarily indicative of a pathologic or treatable condition: it reflects a limitation of the test methodology.Assay reference range: 4.8 to 24.2 ng/mL. Suitable for detection of folate deficiency.Reference:Folate III (Folate III) [package insert V 1.0 German]. [facility] [facility], [place], [place]: January 2015. Performed By: #### 5 0190-8, 9, 2275-06, 2283-10 ####[facility] LABCLIA [id number] [place] [id number] [place] Iron and Iron binding capaci ty panelon 10-27-2023 Iron [Mass/Vol] 65 ug/dL Normal 41-186 [facility] Comment on above: Order Comment: Speci men Type: BLOOD SPECIMENOrdering Facility: [facility] Address: [address] [place] [address] Performed By: #### 5 0190-8, 2131-9, 2275-06, 2283-10 ####[facility] LABCLIA [id number] [place] [id number] [place] Iron binding capacity [Mass/Vol] 191 ug/dL Low 232-386 [facility] Comment on above: Order Comment: Speci men Type: BLOOD SPECIMENOrdering Facility: [facility] Address: [address] [place] [address] Performed By: #### 5 0190-8, 9, 2275-06, 2283-10 ####[facility] LABIA [id number] [place] [id number] [place] Iron/TIBC [Molar ratio] 34.0 % Normal 15.0-57.0 [facility] Comment on above: Order Comment: Speci men Type: BLOOD SPECIMENOrdering Facility: [facility] Address: [address] [place] [address] Performed By: #### 5 0190-8, 9, 2275-06, 2283-10 ####[facility] [id number] [place] [address] [place] Vit B12 [facility] 10-26- 024 Cobalamin (Vitamin B12) [Mass/Vol] 641 pg/mL Normal 232-1245 [facility] Comment on above: Order Comment: Speci men Type: BLOOD SPECIMENOrdering Facility: [facility] Address: [address] [place] [address] Performed By: #### 5 0190-8, 9, 2275-06, 2283-10 ####[facility] LABIA [id number] [place] [id number] [place] CBC W Auto Differential pane l (Bld)on 10-20-2023 Basophils (Bld) [#/Vol] 0.04 10*3/uL Normal <0.11 [facility] Comment on above: Order Comment: Speci men Type: BLOOD SPECIMENOrdering Facility: [facility] Address: [address] [place] [address] Performed By: #### 5 7021-8 ####[facility] LABCLIA [id number] [place] [address] Basophils/100 WBC (Bld) 0.5 % Normal [facility] Comment on above: Order Comment: Speci men Type: BLOOD SPECIMENOrdering Facility: [facility] Address: [address] [place] [address] Performed By: #### 5 7021-8 ####[facility] LABCLIA [id number] [place] [address] Differential cell count method Nom (Bld) Auto Normal [facility] Comment on above: Order Comment: Speci men Type: BLOOD SPECIMENOrdering Facility: [facility] Address: [address] [place] [address] Performed By: #### 5 7021-8 ####[facility] LABCLIA [id number] [place] [address] Eosinophils (Bld) [#/Vol] 0.35 10*3/uL Normal <0.46 [facility] Comment on above: Order Comment: Speci men Type: BLOOD SPECIMENOrdering Facility: [facility] Address: [address] [place] [address] Performed By: #### 5 7021-8 ####[facility] LABCLIA [id number] [place] [address] Eosinophils/100 WBC (Bld) 4.7 % Normal [facility] Comment on above: Order Comment: Speci men Type: BLOOD SPECIMENOrdering Facility: [facility] Address: [address] [place] [address] Performed By: #### 5 7021-8 ####[facility] LABCLIA [id number] [place] [address] Erythrocyte distribution width (RBC) [Ratio] 17.1 % High 11.5-15.0 [facility] Comment on above: Order Comment: Speci men Type: BLOOD SPECIMENOrdering Facility: [facility] Address: [address] [place] [address] Performed By: #### 5 7021-8 ####[facility] LABCLIA [id number] [place] [address] Hematocrit (Bld) [Volume fraction] 27.2 % Low 36.0-46.0 [facility] Comment on above: Order Comment: Speci men Type: BLOOD SPECIMENOrdering Facility: [facility] Address: [address] [place] [address] Performed By: #### 5 7021-8 ####[facility] LABIA [id number] [place] [address] Hemoglobin (Bld) [Mass/Vol] 9.2 g/dL Low 11.5-15.5 [facility] Comment on above: Order Comment: Speci men Type: BLOOD SPECIMENOrdering Facility: [facility] Address: [address] [place] [address] Performed By: #### 5 7021-8 ####[facility] LABCLIA [id number] [place] [address] Immature granulocytes (Bld) [#/Vol] 0.08 10*3/uL Normal <0.10 [facility] Comment on above: Order Comment: Speci men Type: BLOOD SPECIMENOrdering Facility: [facility] Address: [address] [place] [address] Performed By: #### 5 7021-8 ####[facility] LABCLIA [id number] [place] [address] Immature granulocytes/100 WBC (Bld) 1.1 % Normal [facility] Comment on above: Order Comment: Speci men Type: BLOOD SPECIMENOrdering Facility: [facility] Address: [address] [place] [address] Performed By: #### 5 7021-8 ####[facility] LABCLIA [id number] [place] [address] Lymphocytes (Bld) [#/Vol] 0.95 10*3/uL Low 1.00-4.00 [facility] Comment on above: Order Comment: Speci men Type: BLOOD SPECIMENOrdering Facility: [facility] Address: [address] [place] [address] Performed By: #### 5 7021-8 ####[facility] LABCLIA [id number] [place] [address] Lymphocytes/100 WBC (Bld) 12.8 % Normal [facility] Comment on above: Order Comment: Speci men Type: BLOOD SPECIMENOrdering Facility: [facility] Address: [address] [place] [address] Performed By: #### 5 7021-8 ####[facility] LABCLIA [id number] [place] [address] MCH (RBC) [Entitic mass] 36.2 pg High 26.0-34.0 [facility] Comment on above: Order Comment: Speci men Type: BLOOD SPECIMENOrdering Facility: [facility] Address: [address] [place] [address] Performed By: #### 5 7021-8 ####[facility] LABCLIA [id number] [place] [address] MCHC (RBC) [Mass/Vol] 33.8 g/dL Normal 30.5-36.0 [facility] Comment on above: Order Comment: Speci men Type: BLOOD SPECIMENOrdering Facility: [facility] Address: [address] [place] [address] Performed By: #### 5 7021-8 ####[facility] LABCLIA [id number] [place] [address] MCV (RBC) [Entitic vol] 107.1 fL High 80.0-100.0 [facility] Comment on above: Order Comment: Speci men Type: BLOOD SPECIMENOrdering Facility: [facility] Address: [address] [place] [address] Performed By: #### 5 7021-8 ####[facility] LABCLIA [id number] [place] [address] Monocytes (Bld) [#/Vol] 0.56 10*3/uL Normal <0.87 [facility] Comment on above: Order Comment: Speci men Type: BLOOD SPECIMENOrdering Facility: [facility] Address: [address] [place] [address] Performed By: #### 5 7021-8 ####[facility] LABCLIA [id number] [place] [address] Monocytes/100 WBC (Bld) 7.5 % Normal [facility] Comment on above: Order Comment: Speci men Type: BLOOD SPECIMENOrdering Facility: [facility] Address: [address] [place] [address] Performed By: #### 5 7021-8 ####[facility] LABCLIA [id number] [place] [address] Neutrophils (Bld) [#/Vol] 5.46 10*3/uL Normal 1.45-7.50 [facility] Comment on above: Order Comment: Speci men Type: BLOOD SPECIMENOrdering Facility: [facility] Address: [address] [place] [address] Performed By: #### 5 7021-8 ####[facility] LABCLIA [id number] [place] [address] Neutrophils/100 WBC (Bld) 73.4 % Normal [facility] Comment on above: Order Comment: Speci men Type: BLOOD SPECIMENOrdering Facility: [facility] Address: [address] [place] [address] Performed By: #### 5 7021-8 ####[facility] LABCLIA [id number] [place] [address] Nucleated RBC (Bld) [#/Vol] 10*3/uL Normal <0.01 [facility] Comment on above: Order Comment: Speci men Type: BLOOD SPECIMENOrdering Facility: [facility] Address: [address] [place] [address] Performed By: #### 5 7021-8 ####[facility] LABCLIA [id number] [place] [address] Nucleated RBC/100 WBC (Bld) [Ratio] 0.0 /100 WBC Normal [facility] Comment on above: Order Comment: Speci men Type: BLOOD SPECIMENOrdering Facility: [facility] Address: [address] [place] [address] Performed By: #### 5 7021-8 ####[facility] LABCLIA [id number] [place] [address] Platelet mean volume (Bld) [Entitic vol] 9.5 fL Normal 9.0-12.7 [facility] Comment on above: Order Comment: Speci men Type: BLOOD SPECIMENOrdering Facility: [facility] Address: [address] [place] [address] Performed By: #### 5 7021-8 ####[facility] LABCLIA [id number] [place] [address] Platelets (Bld) [#/Vol] 301 10*3/uL Normal 150-400 [facility] Comment on above: Order Comment: Speci men Type: BLOOD SPECIMENOrdering Facility: [facility] Address: [address] [place] [address] Performed By: #### 5 7021-8 ####[facility] LABCLIA [id number] [place] [address] RBC (Bld) [#/Vol] 2.54 10*6/uL Low 3.90-5.20 [facility] Comment on above: Order Comment: Speci men Type: BLOOD SPECIMENOrdering Facility: [facility] Address: [address] [place] [address] Performed By: #### 5 7021-8 ####[facility] LABCLIA [id number] [place] [address] WBC (Bld) [#/Vol] 7.44 10*3/uL Normal 3.70-11.00 [facility] Comment on above: Order Comment: Speci men Type: BLOOD SPECIMENOrdering Facility: [facility] Address: [address] [place] [address] Performed By: #### 5 7021-8 ####[facility] LABCLIA [id number] [place] [address] CNPNon 10-19-2023 CNPN Normal [facility] BLOOD TB SCREENon 10-18-2023 M. tuberculosis tuberculin stim IFN-g Ql (Bld) Negative Normal [facility] Comment on above: Order Comment: Speci men Type: BLOOD SPECIMENOrdering Facility: [facility] Address: [address] [place] [address] Performed By: #### I NFTBP ####[facility] LABCLIA [id number] [place] [address] [place] MITOGEN MINUS NIL >9.98 Normal >=0.50 [facility] Comment on above: Order Comment: Speci men Type: BLOOD SPECIMENOrdering Facility: [facility] Address: [address] [place] [address] Performed By: #### I NFTBP ####[facility] LABCLIA [id number] [place] [address] [place] TB GAMMA INTERPRETATION Normal [facility] Comment on above: Order Comment: Speci men Type: BLOOD SPECIMENOrdering Facility: [facility] Address: [address] [place] [address] Performed By: #### I NFTBP ####[facility] LABCLIA [id number] [place] [address] [place] TB NIL 0.02 IU/mL Normal <=8.00 [facility] Comment on above: Order Comment: Speci men Type: BLOOD SPECIMENOrdering Facility: [facility] Address: [address] [place] [address] Performed By: #### I NFTBP ####[facility] LABCLIA [id number] [place] [address] [place] TB1 AG MINUS NIL 0.00 IU/mL Normal <0.35 [facility] Comment on above: Order Comment: Speci men Type: BLOOD SPECIMENOrdering Facility: [facility] Address: [address] [place] [address] Performed By: #### I NFTBP ####[facility] LABCLIA [id number] [place] [address] [place] TB2 AG MINUS NIL 0.00 IU/mL Normal <0.35 [facility] Comment on above: Order Comment: Speci men Type: BLOOD SPECIMENOrdering Facility: [facility] Address: [address] [place] [address] Performed By: #### I NFTBP ####[facility] LABCLIA [id number] [place] [address] [place] CNOVon 10-18-2023 CNOV Normal [facility] CT ABD/PEL WO IVCONon 2023 CT ABD/PEL WO IVCON Normal [facility] CT Abdomen and Pelvis WO con traston 10-18-2023 IMPRESSION: NO ABDOMINAL ATHEROSCLEROTIC CALCIFICATIONS. 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 TECHNIQUE: Non-IV contrast imaging of the abdomen and pelvis was performed using standard technique, scanning from just above the dome of the diaphragm to the symphysis pubis. Unenhanced imaging is limited for the evaluation of some intra-abdominal and pelvic pathology. MQ: CTAPWO_3 Contrast: IV: None CT Radiation dose: Integrated Dose-length product (DLP) for this visit = 185 mGy*cm. CT Dose Reduction Employed: mAs-kVp adjusted based on patient size-age COMPARISON: CT chest 01/02/2022, MRI pancreas/biliary 06/25/2021, outside CT abdomen/pelvis 04/11/2021 RESULT: Abdomen / Pelvis: Vasculature: Aortic and iliac arteries and vascular calcifications: No abdominal aortic or iliac artery aneurysm. Abdominal aorta: No atherosclerotic calcification Right iliac: Common iliac artery: No atherosclerotic calcification External iliac artery: No atherosclerotic calcification Internal iliac artery: No atherosclerotic calcification Left iliac: Common iliac artery: No atherosclerotic calcification External iliac artery: No atherosclerotic calcification Internal iliac artery: No atherosclerotic calcification Liver: Unremarkable unenhanced liver. Biliary: Persistent scattered pneumobilia. Cholecystectomy. Spleen: No splenomegaly. Pancreas: Unremarkable. Adrenals: No mass. Kidneys: Atrophic. No calculus, hydronephrosis or finding to suggest a cyst or mass in the unenhanced kidney. GI Tract: No bowel dilation. Normal appendix. Residual barium in the colon. Lymph Nodes: No lymphadenopathy. Mesentery/peritoneum: No ascites. Retroperitoneum: No mass. Pelvis: Peritoneal dialysis catheter in place, with small volume dialysate. Bones/Soft Tissues: Severe degenerative changes at the lumbosacral junction. Lower thorax: Unremarkable. Localizer images: No additional findings. DIVISION OF RADIOLOGY Provider, [facility] - 10/18/2023 * * *Final Report* * * DATE OF EXAM: Oct 18 2023 3:58PM [facility] 0531 - CT ABD/PEL WO IVCON / PROCEDURE REASON: multiple diagnoses * * * * Physician Interpretation * * * * EXAMINATION: CT ABDOMEN AND PELVIS WITHOUT IV CONTRAST CLINICAL HISTORY: Prerenal transplant evaluation. TECHNIQUE: Non-IV contrast imaging of the abdomen and pelvis was performed using standard technique, scanning from just above the dome of the diaphragm to the symphysis pubis. Unenhanced imaging is limited for the evaluation of some intra-abdominal and pelvic pathology. MQ: CTAPWO_3 Contrast: IV: None CT Radiation dose: Integrated Dose-length product (DLP) for this visit = 185 mGy*cm. CT Dose Reduction Employed: mAs-kVp adjusted based on patient size-age COMPARISON: CT chest 01/02/2022, MRI pancreas/biliary 06/25/2021, outside CT abdomen/pelvis 04/11/2021 RESULT: Abdomen / Pelvis: Vasculature: Aortic and iliac arteries and vascular calcifications: No abdominal aortic or iliac artery aneurysm. Abdominal aorta: No atherosclerotic calcification Right iliac: Common iliac artery: No atherosclerotic calcification External iliac artery: No atherosclerotic calcification Internal iliac artery: No atherosclerotic calcification Left iliac: Common iliac artery: No atherosclerotic calcification External iliac artery: No atherosclerotic calcification Internal iliac artery: No atherosclerotic calcification Liver: Unremarkable unenhanced liver. Biliary: Persistent scattered pneumobilia. Cholecystectomy. Spleen: No splenomegaly. Pancreas: Unremarkable. Adrenals: No mass. Kidneys: Atrophic. No calculus, hydronephrosis or finding to suggest a cyst or mass in the unenhanced kidney. GI Tract: No bowel dilation. Normal appendix. Residual barium in the colon. Lymph Nodes: No lymphadenopathy. Mesentery/peritoneum: No ascites. Retroperitoneum: No mass. Pelvis: Peritoneal dialysis catheter in place, with small volume dialysate. Bones/Soft Tissues: Severe degenerative changes at the lumbosacral junction. Lower thorax: Unremarkable. Localizer images: No additional findings. IMPRESSION IMPRESSION: NO ABDOMINAL ATHEROSCLEROTIC CALCIFICATIONS. 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 Date/Time: Oct 18 2023 3:59P Dictated by : LISA FOSTER MD This examination was interpreted and the report reviewed and electronically signed by: MP KEEN MD on Oct 18 2023 5:08PM EST [facility] Radiology Study observation (narrative) [facility] CT Abdomen and Pelvis WO con trastOrdered By: [facility] Provider on 10-18-2023 [facility] HBV core Ab Ser Qlon 024 HBV core Ab Ql (S) Negative Normal Negative [facility] Comment on above: Order Comment: Speci men Type: BLOOD SPECIMENOrdering Facility: [facility] Address: [address] [place] [address] Result Comment: No e vidence of current or past infection with Hepatitis B virus. Should recent infection be suspected, repeat testing may be considered 3-4 weeks after this draw. Performed By: #### 5 195-3, 46878-2, 45220-3, 90695-1 ####[facility] LABCLIA [id number] [place] [address] [place] HBV surface Ab Ql (S)on HBV surface Ab Qn (S) <8.00 Normal [facility] Comment on above: Order Comment: Speci men Type: BLOOD SPECIMENOrdering Facility: [facility] Address: [address] [place] [address] Result Comment: <8 m IU/mL: No serological evidence of immunity to Hepatitis B Virus.>/= 8 to <12 mIU/mL: No serological evidence of immunity to Hepatitis B Virus.>/= 12 mIU/mL: Consistent with serological evidence of immunity to Hepatitis B Virus. Performed By: #### 5 195-3, 62011-4, 55903-4, 52523-8 ####[facility] LABIA [id number] [address] STATES OF [facility] HBV surface Ab Ser Qlon HBV surface Ab Ql (S) Negative Normal [facility] Comment on above: Order Comment: Speci men Type: BLOOD SPECIMENOrdering Facility: [facility] Address: [address] [place] [address] Result Comment: No s erological evidence of immunity to Hepatitis B Virus. Performed By: #### 5 195-3, 94319-8, 28065-1, 93931-7 ####[facility] LABIA [id number] [place] [address] [place] HBV surface Ag Ser Qlon HBV surface Ag Ql (S) Negative Normal Negative [facility] Comment on above: Order Comment: Speci men Type: BLOOD SPECIMENOrdering Facility: [facility] Address: [address] [place] [address] Performed By: #### 5 195-3, 57098-3, 54013-1, 80436-4 ####[facility] LABCLIA [id number] [place] [address] [place] HCV Ab Ser Qlon 10-18-2023 HCV Ab Ql (S) Negative Normal Negative [facility] Comment on above: Order Comment: Speci men Type: BLOOD SPECIMENOrdering Facility: [facility] Address: [address] [place] [address] Result Comment: The result suggests no evidence of active infection with Hepatitis C virus. Should recent infection be suspected, repeat testing may be considered 4-6 weeks after this draw. Performed By: #### 1 6128-1 ####[facility] LABCLIA [id number] [place] [address] [place] HCV [facility] HCV RNA KAUSHAL+probe Qn Not detected Normal HCV RNA not detected by PCR. [facility] Comment on above: Order Comment: Speci men Type: BLOOD SPECIMENOrdering Facility: [facility] Address: [address] [place] [address] Performed By: #### 1 1011-4 ####[facility] LABIA [id number] [place] [address] [place] HIV 1+2 Ab IA Qlon 4 HIV 1 and 2 Ab IA.rapid Nom (S/P/Bld) Normal [facility] Comment on above: Order Comment: Speci men Type: BLOOD SPECIMENOrdering Facility: [facility] Address: [address] [place] [address] Result Comment: Test not indicated. Performed By: #### 5 195-3, 83181-6, 97732-2, 13206-5 ####[facility] LABCLIA [id number] [place] [address] [place] HIV 1+2 Ab+HIV1 p24 Ag IA Ql Non-Reactive Normal Nonreactive [facility] Comment on above: Order Comment: Speci men Type: BLOOD SPECIMENOrdering Facility: [facility] Address: [address] [place] [address] Performed By: #### 5 195-3, 20157-2, 72186-4, 62777-7 ####[facility] LABCLIA [id number] [place] [address] [place] HIV immunoassay testing algorithm interpretation (S/P/Bld) [Interp] Normal [facility] Comment on above: Order Comment: Speci men Type: BLOOD SPECIMENOrdering Facility: [facility] Address: [address] [place] [address] Result Comment: No e vidence of HIV-1 or HIV-2 infection. Should recent infection be suspected, repeat testing may be considered 2-3 weeks after this draw.[place] Rev. Code 3701.243(E): This information has been disclosed to you from confidential records protected from disclosure by state law. ???You shall make no further disclosure of this information without the specific, written, and informed release of the individual to whom it pertains or as otherwise permitted by state law. A general authorization for the release of medical or other information is not sufficient for the purpose of the release of HIV test results or diagnoses. Performed By: #### 5 195-3, 09762-2, 18399-2, 44489-0 ####[facility] LABCLIA [id number] [place] [address] [place] KID K/P PANC REC HLA AB SCRN on 10-18-2023 ALLOGEN RESULTS TO FOLLOW See Allogen report to follow Normal [facility] Comment on above: Order Comment: Speci men Type: BLOOD SPECIMENOrdering Facility: [facility] Address: [address] [place] [address] Performed By: #### K PRHAS ####[facility] [id number] [place] [address] [place] Reagin and Treponema pallidu m IgG and IgM [Interp]on 10-18-2023 T. pallidum IgG+IgM IA Ql (S) Non-Reactive Normal Nonreactive [facility] Comment on above: Order Comment: Isaiah mitchell Type: BLOOD SPECIMENOrdering Facility: [facility] Address: [address] [place] [address] Performed By: #### 7 3752-8 ####[facility] LABCLIA [id number] [place] [address] [place] Reagin+T pallidum IgG+IgM Se rPl-Impon 10-18-2023 Reagin and Treponema pallidum IgG and IgM [Interp] Cannot exclude recent Treponemal infection if specimen collected within 7-10 days after appearance of suspect lesions or 2-3 weeks after an exposure. Clinical correlation is required. Normal [facility] Comment on above: Order Comment: Isaiah mitchell Type: BLOOD SPECIMENOrdering Facility: [facility] Address: [address] [place] [address] Performed By: #### 7 3752-8 ####[facility] LABIA [id number] [place] [address] [place] VARICELLA ZOSTER IGGon 10-17 VARICELLA ZOSTER IGG, QUAL Positive Normal Positive [facility] Comment on above: Order Comment: Isaiah mitchell Type: BLOOD SPECIMENOrdering Facility: [facility] Address: [address] [place] [address] Result Comment: The result suggests recent or past exposure to Varicella-Zoster virus or chickenpox vaccination or zoster vaccination. Positive result may also be seen due to presence of passively-transferred antibodies. Please correlate with patient's history. Performed By: #### V ZVG2 ####[facility] LABIA [id number] [place] [address] [place] CNOVon 10-14-2023 CNOV Normal [facility] CBC W Auto Differential pane l (Bld)on 10-13-2023 Basophils (Bld) [#/Vol] 0.04 10*3/uL Normal <0.11 [facility] Comment on above: Order Comment: Speci men Type: BLOOD SPECIMENOrdering Facility: [facility] Address: [address] [place] [address] Performed By: #### 5 7021-8 ####[facility] LABCLIA [id number] [place] [address] Basophils/100 WBC (Bld) 0.5 % Normal [facility] Comment on above: Order Comment: Speci men Type: BLOOD SPECIMENOrdering Facility: [facility] Address: [address] [place] [address] Performed By: #### 5 7021-8 ####[facility] LABCLIA [id number] [place] [address] Differential cell count method Nom (Bld) Auto Normal [facility] Comment on above: Order Comment: Speci men Type: BLOOD SPECIMENOrdering Facility: [facility] Address: [address] [place] [address] Performed By: #### 5 7021-8 ####[facility] LABCLIA [id number] [place] [address] Eosinophils (Bld) [#/Vol] 0.23 10*3/uL Normal <0.46 [facility] Comment on above: Order Comment: Speci men Type: BLOOD SPECIMENOrdering Facility: [facility] Address: [address] [place] [address] Performed By: #### 5 7021-8 ####[facility] LABCLIA [id number] [place] [address] Eosinophils/100 WBC (Bld) 2.9 % Normal [facility] Comment on above: Order Comment: Speci men Type: BLOOD SPECIMENOrdering Facility: [facility] Address: [address] [place] [address] Performed By: #### 5 7021-8 ####[facility] LABCLIA [id number] [place] [address] Erythrocyte distribution width (RBC) [Ratio] 15.9 % High 11.5-15.0 [facility] Comment on above: Order Comment: Speci men Type: BLOOD SPECIMENOrdering Facility: [facility] Address: [address] [place] [address] Performed By: #### 5 7021-8 ####[facility] LABCLIA [id number] [place] [address] Hematocrit (Bld) [Volume fraction] 29.5 % Low 36.0-46.0 [facility] Comment on above: Order Comment: Speci men Type: BLOOD SPECIMENOrdering Facility: [facility] Address: [address] [place] [address] Performed By: #### 5 7021-8 ####[facility] LABCLIA [id number] [place] [address] Hemoglobin (Bld) [Mass/Vol] 9.8 g/dL Low 11.5-15.5 [facility] Comment on above: Order Comment: Speci men Type: BLOOD SPECIMENOrdering Facility: [facility] Address: [address] [place] [address] Performed By: #### 5 7021-8 ####[facility] LABCLIA [id number] [place] [address] Immature granulocytes (Bld) [#/Vol] 0.06 10*3/uL Normal <0.10 [facility] Comment on above: Order Comment: Speci men Type: BLOOD SPECIMENOrdering Facility: [facility] Address: [address] [place] [address] Performed By: #### 5 7021-8 ####[facility] LABCLIA [id number] [place] [address] Immature granulocytes/100 WBC (Bld) 0.8 % Normal [facility] Comment on above: Order Comment: Speci men Type: BLOOD SPECIMENOrdering Facility: [facility] Address: [address] [place] [address] Performed By: #### 5 7021-8 ####[facility] LABCLIA [id number] [place] [address] Lymphocytes (Bld) [#/Vol] 1.05 10*3/uL Normal 1.00-4.00 [facility] Comment on above: Order Comment: Speci men Type: BLOOD SPECIMENOrdering Facility: [facility] Address: [address] [place] [address] Performed By: #### 5 7021-8 ####[facility] LABCLIA [id number] [place] [address] Lymphocytes/100 WBC (Bld) 13.4 % Normal [facility] Comment on above: Order Comment: Speci men Type: BLOOD SPECIMENOrdering Facility: [facility] Address: [address] [place] [address] Performed By: #### 5 7021-8 ####[facility] LABCLIA [id number] [place] [address] MCH (RBC) [Entitic mass] 35.0 pg High 26.0-34.0 [facility] Comment on above: Order Comment: Speci men Type: BLOOD SPECIMENOrdering Facility: [facility] Address: [address] [place] [address] Performed By: #### 5 7021-8 ####[facility] LABCLIA [id number] [place] [address] MCHC (RBC) [Mass/Vol] 33.2 g/dL Normal 30.5-36.0 [facility] Comment on above: Order Comment: Speci men Type: BLOOD SPECIMENOrdering Facility: [facility] Address: [address] [place] [address] Performed By: #### 5 7021-8 ####[facility] LABCLIA [id number] [place] [address] MCV (RBC) [Entitic vol] 105.4 fL High 80.0-100.0 [facility] Comment on above: Order Comment: Speci men Type: BLOOD SPECIMENOrdering Facility: [facility] Address: [address] [place] [address] Performed By: #### 5 7021-8 ####[facility] LABCLIA [id number] [place] [address] Monocytes (Bld) [#/Vol] 0.49 10*3/uL Normal <0.87 [facility] Comment on above: Order Comment: Speci men Type: BLOOD SPECIMENOrdering Facility: [facility] Address: [address] [place] [address] Performed By: #### 5 7021-8 ####[facility] LABCLIA [id number] [place] [address] Monocytes/100 WBC (Bld) 6.3 % Normal [facility] Comment on above: Order Comment: Speci men Type: BLOOD SPECIMENOrdering Facility: [facility] Address: [address] [place] [address] Performed By: #### 5 7021-8 ####[facility] LABCLIA [id number] [place] [address] Neutrophils (Bld) [#/Vol] 5.95 10*3/uL Normal 1.45-7.50 [facility] Comment on above: Order Comment: Speci men Type: BLOOD SPECIMENOrdering Facility: [facility] Address: [address] [place] [address] Performed By: #### 5 7021-8 ####[facility] LABCLIA [id number] [place] [address] Neutrophils/100 WBC (Bld) 76.1 % Normal [facility] Comment on above: Order Comment: Speci men Type: BLOOD SPECIMENOrdering Facility: [facility] Address: [address] [place] [address] Performed By: #### 5 7021-8 ####[facility] LABCLIA [id number] [place] [address] Nucleated RBC (Bld) [#/Vol] 10*3/uL Normal <0.01 [facility] Comment on above: Order Comment: Speci men Type: BLOOD SPECIMENOrdering Facility: [facility] Address: [address] [place] [address] Performed By: #### 5 7021-8 ####[facility] LABCLIA [id number] [place] [address] Nucleated RBC/100 WBC (Bld) [Ratio] 0.0 /100 WBC Normal [facility] Comment on above: Order Comment: Speci men Type: BLOOD SPECIMENOrdering Facility: [facility] Address: [address] [place] [address] Performed By: #### 5 7021-8 ####[facility] LABCLIA [id number] [place] [address] Platelet mean volume (Bld) [Entitic vol] 9.6 fL Normal 9.0-12.7 [facility] Comment on above: Order Comment: Speci men Type: BLOOD SPECIMENOrdering Facility: [facility] Address: [address] [place] [address] Performed By: #### 5 7021-8 ####[facility] LABCLIA [id number] [place] [address] Platelets (Bld) [#/Vol] 230 10*3/uL Normal 150-400 [facility] Comment on above: Order Comment: Speci men Type: BLOOD SPECIMENOrdering Facility: [facility] Address: [address] [place] [address] Performed By: #### 5 7021-8 ####[facility] LABIA [id number] [place] [address] RBC (Bld) [#/Vol] 2.80 10*6/uL Low 3.90-5.20 [facility] Comment on above: Order Comment: Speci men Type: BLOOD SPECIMENOrdering Facility: [facility] Address: [address] [place] [address] Performed By: #### 5 7021-8 ####[facility] LABIA [id number] [place] [address] WBC (Bld) [#/Vol] 7.82 10*3/uL Normal 3.70-11.00 [facility] Comment on above: Order Comment: Speci men Type: BLOOD SPECIMENOrdering Facility: [facility] Address: [address] [place] [address] Performed By: #### 5 7021-8 ####[facility] LABIA [id number] [place] [address] Comprehensive metabolic 2000 panelon 10-13-2023 Albumin [Mass/Vol] 4.2 g/dL Normal 3.9-4.9 [facility] Comment on above: Order Comment: Speci men Type: BLOOD SPECIMENOrdering Facility: [facility] Address: [address] [place] [address] Performed By: #### 2 4323-8 ####[facility] LABIA [id number] [place] [address] ALP [Catalytic activity/Vol] 111 U/L Normal 34-123 [facility] Comment on above: Order Comment: Speci men Type: BLOOD SPECIMENOrdering Facility: [facility] Address: [address] [place] [address] Performed By: #### 2 4323-8 ####[facility] LABCLIA [id number] [place] [address] ALT [Catalytic activity/Vol] 11 U/L Normal 7-38 [facility] Comment on above: Order Comment: Speci men Type: BLOOD SPECIMENOrdering Facility: [facility] Address: [address] [place] [address] Performed By: #### 2 4323-8 ####[facility] LABCLIA [id number] [place] [address] Anion gap [Moles/Vol] 16 mmol/L High 8-15 [facility] Comment on above: Order Comment: Speci men Type: BLOOD SPECIMENOrdering Facility: [facility] Address: [address] [place] [address] Performed By: #### 2 4323-8 ####[facility] LABCLIA [id number] [place] [address] AST [Catalytic activity/Vol] 16 U/L Normal 13-35 [facility] Comment on above: Order Comment: Speci men Type: BLOOD SPECIMENOrdering Facility: [facility] Address: [address] [place] [address] Performed By: #### 2 4323-8 ####[facility] LABCLIA [id number] [place] [address] Bilirubin [Mass/Vol] 0.5 mg/dL Normal 0.2-1.3 [facility] Comment on above: Order Comment: Speci men Type: BLOOD SPECIMENOrdering Facility: [facility] Address: [address] [place] [address] Performed By: #### 2 4323-8 ####[facility] LABCLIA [id number] [place] [address] Calcium [Mass/Vol] 10.2 mg/dL Normal 8.5-10.2 [facility] Comment on above: Order Comment: Speci men Type: BLOOD SPECIMENOrdering Facility: [facility] Address: [address] [place] [address] Performed By: #### 2 4323-8 ####[facility] LABCLIA [id number] [place] [address] Chloride [Moles/Vol] 98 mmol/L Normal 98-107 [facility] Comment on above: Order Comment: Speci men Type: BLOOD SPECIMENOrdering Facility: [facility] Address: [address] [place] [address] Performed By: #### 2 4323-8 ####[facility] LABCLIA [id number] [place] [address] CO2 [Moles/Vol] 28 mmol/L Normal 22-30 [facility] Comment on above: Order Comment: Speci men Type: BLOOD SPECIMENOrdering Facility: [facility] Address: [address] [place] [address] Performed By: #### 2 4323-8 ####[facility] LABCLIA [id number] [place] [address] Creatinine [Mass/Vol] 19.57 mg/dL High 0.58-0.96 [facility] Comment on above: Order Comment: Speci men Type: BLOOD SPECIMENOrdering Facility: [facility] Address: [address] [place] [address] Performed By: #### 2 4323-8 ####[facility] LABCLIA [id number] [place] [address] Creatinine and Glomerular filtration rate.predicted panel (S/P/Bld) 2 mL/min/1.73m??? Low >=60 [facility] Comment on above: Order Comment: Speci men Type: BLOOD SPECIMENOrdering Facility: [facility] Address: [address] [place] [address] Result Comment: Rylee mated Glomerular Filtration Rate (eGFR) is calculated using the 2020 CKD-EPI creatinine equation. This equation utilizes serum creatinine, sex, and age as parameters. The creatinine assay has traceable calibration to isotope dilution-mass spectrometry. Refer to KDIGO guidelines for clinical interpretation. In patients with unstable renal function, e.g. those with acute kidney injury, the eGFR may not accurately reflect actual GFR. Performed By: #### 2 4323-8 ####[facility] LABCLIA [id number] [place] [address] Glucose [Mass/Vol] 107 mg/dL High 74-99 [facility] Comment on above: Order Comment: Speci men Type: BLOOD SPECIMENOrdering Facility: [facility] Address: [address] [place] [address] Result Comment: The [place] [employer] (ADA) provides guidance for cutoff values for fasting glucose and random glucose. The ADA defines fasting as no caloric intake for at least 8 hours. Fasting plasma glucose results between 100 to 125 mg/dL indicate increased risk for diabetes (prediabetes).Fasting plasma glucose results greater than or equal to 126 mg/dL meet the criteria for diagnosis of diabetes. In the absence of unequivocal hyperglycemia, results should be confirmed by repeat testing. In a patient with classic symptoms of hyperglycemia or hyperglycemic crisis, random plasma glucose results greater than or equal to 200 mg/dL meet the criteria for diagnosis of diabetes.Reference: Standards of Medical Care in Diabetes 2016, [place] [employer]. Diabetes Care. 2016.39(Suppl 1). Performed By: #### 2 4323-8 ####[facility] LABCLIA [id number] [place] [address] Potassium [Moles/Vol] 4.1 mmol/L Normal 3.7-5.1 [facility] Comment on above: Order Comment: Speci men Type: BLOOD SPECIMENOrdering Facility: [facility] Address: [address] [place] [address] Performed By: #### 2 4323-8 ####[facility] LABCLIA [id number] [place] [address] Protein [Mass/Vol] 6.0 g/dL Low 6.3-8.0 [facility] Comment on above: Order Comment: Speci men Type: BLOOD SPECIMENOrdering Facility: [facility] Address: [address] [id number] Performed By: #### 2 4323-8 ####[facility] LABCLIA [id number] [place] [address] Sodium [Moles/Vol] 142 mmol/L Normal 136-144 [facility] Comment on above: Order Comment: Speci men Type: BLOOD SPECIMENOrdering Facility: [facility] Address: [address] [place] [address] Performed By: #### 2 4323-8 ####[facility] LABCLIA [id number] [place] [address] Urea nitrogen [Mass/Vol] 56 mg/dL High 7-21 [facility] Comment on above: Order Comment: Speci men Type: BLOOD SPECIMENOrdering Facility: [facility] Address: [address] [place] [address] Performed By: #### 2 4323-8 ####[facility] LABCLIA [id number] [place] [address] CNPNon 10-12-2023 CNPN Normal [facility] CNPNon 10-11-2023 CNPN Normal [facility] BASIC METABOLIC PANLon 10-04 Anion gap [Moles/Vol] 11 mmol/L Normal 5-15 [facility] Comment on above: Performed By: #### 4 8066-5 #### [facility] ([id number]) [address] [place] [address] Calcium [Mass/Vol] 8.4 mg/dL Low 8.5-10.5 [facility] Comment on above: Performed By: #### 4 8066-5 #### [facility] ([id number]) [address] [place] [address] Chloride [Moles/Vol] 96 mmol/L Low 98-109 [facility] Comment on above: Performed By: #### 4 8066-5 #### [facility] ([id number]) [address] [place] [address] 37666 CO2 [Moles/Vol] 26 mmol/L Normal 22-32 [facility] Comment on above: Performed By: #### 4 8066-5 #### [facility] ([id number]) [address] [place] [address]10 Creatinine [Mass/Vol] 17.09 mg/dL High 0.40-1.00 [facility] Comment on above: Result Comment: METH OD TRACEABLE TO IDMS STANDARD Performed By: #### 4 8066-5 #### [facility] ([id number]) [address] [place] [address] GFR/1.73 sq M.predicted among non-blacks MDRD (S/P/Bld) [Vol rate/Area] 2 mL/min/{1.73_m2} Low >59 [facility] Comment on above: Result Comment: Reported eGFR is based on the CKD-EPI 2020 equation that does not use a race coefficient. Performed By: #### 4 8066-5 #### [facility] ([id number]) [address] [place] [address] 28332 Glucose [Mass/Vol] 109 mg/dL High 65-99 [facility] Comment on above: Performed By: #### 4 8066-5 #### [facility] ([id number]) [address] [place] [address] 78274 Potassium [Moles/Vol] 3.4 mmol/L Low 3.5-5.0 [facility] Comment on above: Performed By: #### 4 8066-5 #### [facility] ([id number]) [address] [place] [address] 22936 Sodium [Moles/Vol] 133 mmol/L Low 134-146 [facility] Comment on above: Performed By: #### 4 8066-5 #### [facility] ([id number]) [address] [place] [address] 99409 Urea nitrogen [Mass/Vol] 55 mg/dL High 5-23 [facility] Comment on above: Performed By: #### 4 8066-5 #### [facility] ([id number]) [address] [place] [address] 93959 CBC AND AUTO DIFFon 10-05-19 ABSOLUTE BASOPHIL 0.1 X10E9/L Normal 0.0-0.2 [facility] Comment on above: Performed By: #### 4 8066-5 #### [facility] ([id number]) [address] [place] [address] 08816 ABSOLUTE NEUTROPHIL 6.3 X10E9/L Normal 1.5-6.6 [facility] Comment on above: Performed By: #### 4 8066-5 #### [facility] ([id number]) [address] [place] [address] 69348 Basophils/100 WBC (Bld) 0.6 % Normal [facility] Comment on above: Performed By: #### 4 8066-5 #### [facility] ([id number]) [address] [place] [address] 55926 Eosinophils (Bld) [#/Vol] 0.2 10*3/uL Normal 0.0-0.4 [facility] Comment on above: Performed By: #### 4 8066-5 #### [facility] ([id number]) [address] [place] [address] 86981 Eosinophils/100 WBC (Bld) 2.4 % Normal [facility] Comment on above: Performed By: #### 4 8066-5 #### [facility] ([id number]) [address] [place] [address] 56596 Erythrocyte distribution width (RBC) [Ratio] 16.6 % High 11.5-15.0 [facility] Comment on above: Performed By: #### 4 8066-5 #### [facility] ([id number]) [address] [place] [address] 69158 Hematocrit (Bld) [Volume fraction] 27.4 % Low 35-47 [facility] Comment on above: Performed By: #### 4 8066-5 #### [facility] ([id number]) [address] [place] [address] 38074 Hemoglobin (Bld) [Mass/Vol] 9.3 g/dL Low 11.7-15.5 [facility] Comment on above: Performed By: #### 4 8066-5 #### [facility] ([id number]) [address] [place] [address] 90225 Lymphocytes (Bld) [#/Vol] 1.5 10*3/uL Normal 1.0-3.5 [facility] Comment on above: Performed By: #### 4 8066-5 #### [facility] ([id number]) [address] [place] [address] 76998 Lymphocytes/100 WBC (Bld) 16.9 % Normal [facility] Comment on above: Performed By: #### 4 8066-5 #### [facility] ([id number]) [address] [place] [address] 35863 MCH (RBC) [Entitic mass] 34.8 pg High 27-34 [facility] Comment on above: Performed By: #### 4 8066-5 #### [facility] ([id number]) [address] [place] [address] 19133 MCHC (RBC) [Mass/Vol] 34.0 g/dL Normal 32-36 [facility] Comment on above: Performed By: #### 4 8066-5 #### [facility] ([id number]) [address] [place] [address] 40105 MCV (RBC) [Entitic vol] 102 fL High 80-100 [facility] Comment on above: Performed By: #### 4 8066-5 #### [facility] ([id number]) [address] [place] [address] 45079 Monocytes (Bld) [#/Vol] 0.7 10*3/uL Normal 0-0.9 [facility] Comment on above: Performed By: #### 4 8066-5 #### [facility] ([id number]) [address] [place] [address] 70639 Monocytes/100 WBC (Bld) 8.3 % Normal [facility] Comment on above: Performed By: #### 4 8066-5 #### [facility] ([id number]) [address] [place] [address] 11479 Neutrophils/100 WBC (Bld) 71.8 % Normal [facility] Comment on above: Performed By: #### 4 8066-5 #### [facility] ([id number]) [address] [place] [address] 00783 Platelet mean volume (Bld) [Entitic vol] 8.0 fL Normal 7-12 [facility] Comment on above: Performed By: #### 4 8066-5 #### [facility] ([id number]) [address] [place] [address] 26445 Platelets (Bld) [#/Vol] 284 10*3/uL Normal 150-450 [facility] Comment on above: Performed By: #### 4 8066-5 #### [facility] ([id number]) [address] [place] [address] 90989 RBC COUNT 2.68 X10E12/L Low 3.80-5.20 [facility] Comment on above: Performed By: #### 4 8066-5 #### [facility] ([id number]) [address] [place] [address] 31999 WBC (Bld) [#/Vol] 8.8 10*3/uL Normal 4.0-11.0 [facility] Comment on above: Performed By: #### 4 8066-5 #### [facility] ([id number]) [address] [place] [address] 02944 CNPNon 10-05-2023 CNPN Normal [facility] MR BRAIN WO CONTon 07-23-202 4 MR BRAIN WO CONT MR BRAIN WO CONT History: Neuro deficit, acute, stroke suspected Exam/Technique: Multiplanar multisequence images of the brain obtained without IV dye. Comparison: Same day head CT Findings: There is no localized area of restricted diffusion to support acute or subacute ischemic insult. There are multiple areas of signal changes along the cortical and subcortical white matter at the posterior aspect of the left frontal lobe, right frontal lobe, parietal lobe and left cerebellum consistent with remote ischemic changes and gliosis. Otherwise the ventricular system and cortical sulci are appropriate for patient's age group. Cerebellopontine angle, basal cistern and corpus callosum are grossly unremarkable There is no midline shift or transtentorial herniation. IMPRESSION: No gross acute intracranial changes. There are multiple areas of prior ischemic insult at both cerebral hemispheres and left cerebellum as described above Finalized by Corin Mcgrath MD on 10/05/2023 7:37 AM Normal [facility] BASIC METABOLIC PANLon 10-03 Anion gap [Moles/Vol] 18 mmol/L High 5-15 [facility] Comment on above: Performed By: #### C BCA, PINR, 43489-9, BMP, LIVR, 85476-0 #### [facility] ([id number]) [address] [place] [address] 01816 Calcium [Mass/Vol] 9.0 mg/dL Normal 8.5-10.5 [facility] Comment on above: Performed By: #### C BCA, PINR, 92371-1, BMP, LIVR, 50527-1 #### [facility] ([id number]) [address] [place] [address] 58204 Chloride [Moles/Vol] 95 mmol/L Low 98-109 [facility] Comment on above: Performed By: #### C BCA, PINR, 01595-5, BMP, LIVR, 52277-5 #### [facility] ([id number]) [address] [place] [address] 91869 CO2 [Moles/Vol] 23 mmol/L Normal 22-32 [facility] Comment on above: Performed By: #### C BCA, PINR, 27254-3, BMP, LIVR, 63786-0 #### [facility] ([id number]) [address] [place] [address] 36403 Creatinine [Mass/Vol] 18.15 mg/dL High 0.40-1.00 [facility] Comment on above: Result Comment: METH OD TRACEABLE TO IDMS STANDARD Performed By: #### C BCA, PINR, 23066-0, BMP, LIVR, 44671-7 #### [facility] ([id number]) [address] [place] [address] 99760 GFR/1.73 sq M.predicted among non-blacks MDRD (S/P/Bld) [Vol rate/Area] 2 mL/min/{1.73_m2} Low >59 [facility] Comment on above: Result Comment: Reported eGFR is based on the CKD-EPI 2020 equation that does not use a race coefficient. Performed By: #### C BCA, PINR, 25017-9, BMP, LIVR, 32105-0 #### [facility] ([id number]) [address] [place] [address] 05447 Glucose [Mass/Vol] 166 mg/dL High 65-99 [facility] Comment on above: Performed By: #### C BCA, PINR, 47395-7, BMP, LIVR, 26036-4 #### [facility] ([id number]) [address] [place] [address] 86381 Potassium [Moles/Vol] 3.3 mmol/L Low 3.5-5.0 [facility] Comment on above: Result Comment: SPEC IMEN HEMOLYZED, RESULTS INCREASED Performed By: #### C BCA, PINR, 98111-4, BMP, LIVR, 11716-8 #### [facility] ([id number]) [address] [place] [address] [place] [address] Sodium [Moles/Vol] 136 mmol/L Normal 134-146 [facility] Comment on above: Performed By: #### C BCA, PINR, 60855-7, BMP, LIVR, 47510-6 #### [facility] ([id number]) [address] [place] [address] 96942 Urea nitrogen [Mass/Vol] 59 mg/dL High 5-23 [facility] Comment on above: Performed By: #### C BCA, PINR, 40747-9, BMP, LIVR, 00198-5 #### [facility] ([id number]) [address] [place] [address] 40627 CBC AND AUTO DIFFon 10-04-19 24 ABSOLUTE BASOPHIL 0.1 X10E9/L Normal 0.0-0.2 [facility] Comment on above: Performed By: #### C BCA, PINR, 63697-0, BMP, LIVR, 38580-5 #### [facility] ([id number]) [address] [place] [address] 34678 ABSOLUTE NEUTROPHIL 8.2 X10E9/L High 1.5-6.6 [facility] Comment on above: Performed By: #### C BCA, PINR, 74836-1, BMP, LIVR, 81348-9 #### [facility] ([id number]) [address] [place] [address] 33943 Basophils/100 WBC (Bld) 1.0 % Normal [facility] Comment on above: Performed By: #### C BCA, PINR, 59463-4, BMP, LIVR, 28774-3 #### [facility] ([id number]) [address] [place] [address] 86128 Eosinophils (Bld) [#/Vol] 0.3 10*3/uL Normal 0.0-0.4 [facility] Comment on above: Performed By: #### C BCA, PINR, 57063-5, BMP, LIVR, 86148-5 #### [facility] ([id number]) [address] [place] [address] 94775 Eosinophils/100 WBC (Bld) 2.6 % Normal [facility] Comment on above: Performed By: #### C BCA, PINR, 12473-4, BMP, LIVR, 09879-4 #### [facility] ([id number]) [address] [place] [address] 46826 Erythrocyte distribution width (RBC) [Ratio] 16.4 % High 11.5-15.0 [facility] Comment on above: Performed By: #### C BCA, PINR, 75869-5, BMP, LIVR, 56307-6 #### [facility] ([id number]) [address] [place] [address] 41469 Hematocrit (Bld) [Volume fraction] 31.4 % Low 35-47 [facility] Comment on above: Performed By: #### C BCA, PINR, 41946-1, BMP, LIVR, 43933-5 #### [facility] ([id number]) [address] [place] [address] 85250 Hemoglobin (Bld) [Mass/Vol] 10.5 g/dL Low 11.7-15.5 [facility] Comment on above: Performed By: #### C BCA, PINR, 74430-9, BMP, LIVR, 17253-6 #### [facility] ([id number]) [address] [place] [address] 02084 Lymphocytes (Bld) [#/Vol] 1.6 10*3/uL Normal 1.0-3.5 [facility] Comment on above: Performed By: #### C BCA, PINR, 55647-5, BMP, LIVR, 99527-5 #### [facility] ([id number]) [address] [place] [address] 31605 Lymphocytes/100 WBC (Bld) 14.2 % Normal [facility] Comment on above: Performed By: #### C BCA, PINR, 94289-7, BMP, LIVR, 72272-2 #### [facility] ([id number]) [address] [place] [address] 50003 MCH (RBC) [Entitic mass] 34.3 pg High 27-34 [facility] Comment on above: Performed By: #### C BCA, PINR, 52628-1, BMP, LIVR, 37489-5 #### [facility] ([id number]) [address] [place] [address] 77026 MCHC (RBC) [Mass/Vol] 33.3 g/dL Normal 32-36 [facility] Comment on above: Performed By: #### C BCA, PINR, 21391-4, BMP, LIVR, 04859-8 #### [facility] ([id number]) [address] [place] [address] 50759 MCV (RBC) [Entitic vol] 103 fL High 80-100 [facility] Comment on above: Performed By: #### C BCA, PINR, 71889-7, BMP, LIVR, 30956-9 #### [facility] ([id number]) [address] [place] [address] 36174 Monocytes (Bld) [#/Vol] 1.0 10*3/uL High 0-0.9 [facility] Comment on above: Performed By: #### C BCA, PINR, 73240-4, BMP, LIVR, 95884-8 #### [facility] ([id number]) [address] [place] [address] 24738 Monocytes/100 WBC (Bld) 9.1 % Normal [facility] Comment on above: Performed By: #### C BCA, PINR, 60966-2, BMP, LIVR, 32205-6 #### [facility] ([id number]) [address] [place] [address] 18708 Neutrophils/100 WBC (Bld) 73.1 % Normal [facility] Comment on above: Performed By: #### C BCA, PINR, 82063-7, BMP, LIVR, 23921-5 #### [facility] ([id number]) [address] [place] [address] 43697 Platelet mean volume (Bld) [Entitic vol] 8.5 fL Normal 7-12 [facility] Comment on above: Performed By: #### C BCA, PINR, 03826-7, BMP, LIVR, 39480-9 #### [facility] ([id number]) [address] [place] [address] 12916 Platelets (Bld) [#/Vol] 344 10*3/uL Normal 150-450 [facility] Comment on above: Performed By: #### C BCA, PINR, 61848-1, BMP, LIVR, 14649-5 #### [facility] ([id number]) [address] [place] [address] [id number] RBC COUNT 3.05 X10E12/L Low 3.80-5.20 [facility] Comment on above: Performed By: #### C BCA, PINR, 04624-0, BMP, LIVR, 56163-0 #### [facility] ([id number]) [address] [place] [address] 12502 WBC (Bld) [#/Vol] 11.3 10*3/uL High 4.0-11.0 [facility] Comment on above: Performed By: #### C BCA, PINR, 16191-0, BMP, LIVR, 07300-9 #### [facility] ([id number]) [address] [place] [address] [place] [address] CT BRAIN WO CONT STROKE JAREDR Corona 10-04-2023 CT BRAIN WO CONT STROKE ALERT CT BRAIN WO CONT STROKE ALERT EXAM:CT BRAIN WO CONT STROKE ALERT INDICATION: Neuro deficit, acute, stroke suspected COMPARISON: CT head dated 09/25/2022. MRI of the brain dated 08/05/2022. TECHNIQUE: Standard noncontrast axial CT sections through the head. All CT scans at this facility use dose modulation, iterative reconstruction, and/or weight based dosing when appropriate to reduce radiation dose to as low as reasonably achievable. FINDINGS: Scattered age-indeterminate infarcts including anterior-inferior midline right frontal lobe, left middle frontal gyrus, right centrum semiovale. The right frontal lobe infarct is new when compared to prior. Right centrum semiovale observation is more pronounced. Encephalomalacia left cerebellum. No acute intracranial hemorrhage. No mass effect, or midline shift. Ventricles and Sulci: Normal for age. Extra-Axial Spaces: No extra-axial fluid collection. Orbits, paranasal sinuses, midface structures, mastoid air cells: Normal Cranium and extracranial soft tissues: Normal IMPRESSION: Scattered age-indeterminate infarcts most notably within the right para midline frontal lobe and right centrum semiovale. 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 MRI of the brain is recommended for improved characterization and assessment of the chronicity of these findings. THIS REPORT CONTAINS A SIGNIFICANT RESULT AND/OR RECOMMENDATION, WHICH REQUIRES THE ATTENTION OF THE LICENSED CAREGIVER RESPONSIBLE FOR THIS PATIENT. THEREFORE, I SPECIFICALLY DESIGNATED THIS REPORT TO BE TELEPHONED BY THE RADIOLOGY DEPARTMENT. FINDINGS WERE INSTRUCTED TO BE CALLED TO THE CLINICAL SERVICE ON 10/04/2023 8:45 PM Finalized by Breana Osei on 10/04/2023 8:45 PM Normal [facility] CT CTA CAROTIDon 10-04-[address] CTA CAROTID EXAM:CT CTA CAROTID INDICATION: Neuro deficit, acute, stroke suspected COMPARISON: None TECHNIQUE/PROTOCOL: Contrast enhanced neck CT arteriogram was performed. 3D reconstructions were performed to evaluate vascular anatomy. All internal carotid measurements were made according to the NASCET criteria. All CT scans at this facility use dose modulation, iterative reconstruction, and/or weight based dosing when appropriate to reduce radiation dose to as low as reasonably achievable. CONTRAST: 100mL Omnipaque IV. FINDINGS: Arch & Subclavian Arteries: Normal. Carotids: Patent bilaterally Vertebral arteries: Patent bilaterally NECK FINDINGS: Limited images of the neck demonstrate no significant abnormalities. IMPRESSION: No high-grade stenosis, occlusion, or evidence of acute vascular injury. Finalized by Breana Osei on 10/04/2023 9:09 PM Normal [facility] CT CTA HEADon 10-04-[address] CTA HEAD HISTORY: A 43-year-old female with the history of the acute neurological deficit. Left-sided weakness. Stroke is suspected. TECHNIQUE: Multidetector spiral CT scan of the head is performed by using CT angiogram protocol. The patient received 100 mL of Omnipaque [address] angiogram is performed. MIP and/or 3-D reconstruction images are reformatted. All CT scans at this facility use dose modulation, iterative reconstruction, and/or weight based dosing when appropriate to reduce radiation dose to as low as reasonably achievable. Note:Arterial blood flow was measured to assist the stroke clinical team in the diagnosis of large vessel occlusion in patients undergoing screening for acute ischemic stroke using Rapid AI software when clinically indicated. COMPARISON: Comparison is made with the CT scan of the brain of 10/04/2023. FINDINGS: CT angiogram demonstrates patent both intracranial internal and cavernous carotid arteries are patent without significant stenosis. Both distal vertebral and basilar arteries are patent. Vertebrobasilar junction is normal. Posterior inferior cerebellar arteries are patent. Anterior, middle and posterior cerebral arteries are patent. There is no evidence of significant stenosis of the large vessels. There is no evidence of aneurysm or arteriovenous malformation intracranially. The deep venous system and dural venous sinuses appear to be patent. IMPRESSION: 1. No evidence of significant stenosis or occlusion of the large vessels. 2. No evidence of aneurysm or arteriovenous malformation. Finalized by Boo Porter MD on 10/04/2023 9:07 PM Normal [facility] Glucose Glucometer (BldC) [M ass/Vol]on 10-04-2023 Glucose [Mass/Vol] 125 mg/dL High 65-99 [facility] LIVER PANELon 10-04-2023 Albumin [Mass/Vol] 3.9 g/dL Normal 3.2-5.3 [facility] Comment on above: Performed By: #### C BCA, PINR, 34828-5, BMP, LIVR, 35260-2 #### [facility] ([id number]) [address] [place] [address] ALP [Catalytic activity/Vol] 106 U/L Normal 39-130 [facility] Comment on above: Performed By: #### C BCA, PINR, 83042-2, BMP, LIVR, 36155-2 #### [facility] ([id number]) [address] [place] [address] 36587 ALT [Catalytic activity/Vol] 20 U/L Normal 0-31 [facility] Comment on above: Performed By: #### C BCA, PINR, 65184-4, BMP, LIVR, 90451-1 #### [facility] ([id number]) [address] [place] [address]32 AST [Catalytic activity/Vol] 33 U/L Normal 0-41 [facility] Comment on above: Performed By: #### C BCA, PINR, 26457-6, BMP, LIVR, 01947-1 #### [facility] ([id number]) [address] [place] [address]7421 Bilirubin [Mass/Vol] 0.6 mg/dL Normal 0.3-1.2 [facility] Comment on above: Result Comment: RESU LTS QUESTIONABLE DUE TO HEMOLYSIS Performed By: #### C BCA, PINR, 51024-4, BMP, LIVR, 45389-3 #### [facility] ([id number]) [address] [place] [address] Bilirubin.direct [Mass/Vol] 0.3 mg/dL Normal 0.0-0.4 [facility] Comment on above: Performed By: #### C BCA, PINR, 67859-0, BMP, LIVR, 05042-6 #### [facility] ([id number]) [address] [place] [address]59 Protein [Mass/Vol] 6.4 g/dL Normal 6.0-8.0 [facility] Comment on above: Performed By: #### C BCA, PINR, 39700-2, BMP, LIVR, 60148-2 #### [facility] ([id number]) [address] [place] [address] PROTIME AND INRon 10-04-2023 INR Coag (PPP) [Relative time] 1.0 {INR} Normal 0.8-1.1 [facility] Comment on above: Performed By: #### C BCA, PINR, 21150-6, BMP, LIVR, 07443-4 #### [facility] ([id number]) [address] [place] [address]18 PT Coag (PPP) [Time] 11.8 s Normal 9.8-13.2 [facility] Comment on above: Result Comment: NEW REFERENCE RANGE Performed By: #### C BCA, PINR, 72597-0, BMP, LIVR, 75003-0 #### [facility] ([id number]) [address] [place] [address]66 Troponin I.cardiac High sens itivity method [Mass/Vol]on 10-04-2023 1 HOUR TROP I, HIGH SENSITIVITY 6 ng/L Normal <16 [facility] Comment on above: Performed By: #### 4 8066-5 #### [facility] ([id number]) [address] [place] [address]72 TROPONIN I, HIGH SENSITIVITY 6 ng/L Normal <16 [facility] Comment on above: Performed By: #### C BCA, PINR, 51315-1, BMP, LIVR, 48733-1 #### [facility] ([id number]) [address] [place] [address] 10232 XR CHEST 1 VIEW STROKEon XR CHEST 1 VIEW STROKE XR CHEST 1 VIEW STROKE CHEST ONE VIEW COMPARISON: 09/26/2022 HISTORY: stroke. Left-sided weakness. FINDINGS: Portable AP chest radiograph demonstrates no pneumothorax. Cardiomediastinal silhouette and pulmonary vasculature are within normal limits. No evidence for focal consolidation or pleural effusion. Left Loop recorder. 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 IMPRESSION: No evidence for an acute cardiopulmonary process. Finalized by Rolando Hughes MD on 10/04/2023 9:29 PM Normal [facility] aPTT Coag (PPP) [Time]on aPTT Coag (Bld) [Time] 30 s Normal 26-37 [facility] Comment on above: Result Comment: NEW REFERENCE RANGE Performed By: #### C BCA, PINR, 64532-7, BMP, LIVR, 99245-0 #### [facility] ([id number]) [address] [place] [address], [place] [address] CBC W Auto Differential pane l (Bld)on 09-29-2023 Basophils (Bld) [#/Vol] 0.04 10*3/uL Normal <0.11 [facility] Comment on above: Order Comment: Speci men Type: BLOOD SPECIMENOrdering Facility: [facility] Address: [address] [place], [place] [address] Performed By: #### 5 7021-8 ####[facility] LABCLIA [id number] [place] [address] Basophils/100 WBC (Bld) 0.4 % Normal [facility] Comment on above: Order Comment: Speci men Type: BLOOD SPECIMENOrdering Facility: [facility] Address: [address] [place] [address] Performed By: #### 5 7021-8 ####[facility] LABCLIA [id number] [place] [address] Differential cell count method Nom (Bld) Auto Normal [facility] Comment on above: Order Comment: Speci men Type: BLOOD SPECIMENOrdering Facility: [facility] Address: [address] [place] [address] Performed By: #### 5 7021-8 ####[facility] LABCLIA [id number] [place] [address] Eosinophils (Bld) [#/Vol] 0.29 10*3/uL Normal <0.46 [facility] Comment on above: Order Comment: Speci men Type: BLOOD SPECIMENOrdering Facility: [facility] Address: [address] [place] [address] Performed By: #### 5 7021-8 ####[facility] LABCLIA [id number] [place] [address] Eosinophils/100 WBC (Bld) 3.1 % Normal [facility] Comment on above: Order Comment: Speci men Type: BLOOD SPECIMENOrdering Facility: [facility] Address: [address] [place] [address] Performed By: #### 5 7021-8 ####[facility] LABCLIA [id number] [place] [address] Erythrocyte distribution width (RBC) [Ratio] 14.7 % Normal 11.5-15.0 [facility] Comment on above: Order Comment: Speci men Type: BLOOD SPECIMENOrdering Facility: [facility] Address: [address] [place] [address] Performed By: #### 5 7021-8 ####[facility] LABCLIA [id number] [place] [address] Hematocrit (Bld) [Volume fraction] 32.4 % Low 36.0-46.0 [facility] Comment on above: Order Comment: Speci men Type: BLOOD SPECIMENOrdering Facility: [facility] Address: [address] [place] [address] Performed By: #### 5 7021-8 ####[facility] LABCLIA [id number] [place] [address] Hemoglobin (Bld) [Mass/Vol] 10.6 g/dL Low 11.5-15.5 [facility] Comment on above: Order Comment: Speci men Type: BLOOD SPECIMENOrdering Facility: [facility] Address: [address] [place] [address] Performed By: #### 5 7021-8 ####[facility] LABCLIA [id number] [place] [address] Immature granulocytes (Bld) [#/Vol] 0.13 10*3/uL High <0.10 [facility] Comment on above: Order Comment: Speci men Type: BLOOD SPECIMENOrdering Facility: [facility] Address: [address] [place] [address] Performed By: #### 5 7021-8 ####[facility] LABCLIA [id number] [place] [address] Immature granulocytes/100 WBC (Bld) 1.4 % Normal [facility] Comment on above: Order Comment: Speci men Type: BLOOD SPECIMENOrdering Facility: [facility] Address: [address] [place] [address] Performed By: #### 5 7021-8 ####[facility] LABCLIA [id number] [place] [address] Lymphocytes (Bld) [#/Vol] 1.27 10*3/uL Normal 1.00-4.00 [facility] Comment on above: Order Comment: Speci men Type: BLOOD SPECIMENOrdering Facility: [facility] Address: [address] [place] [address] Performed By: #### 5 7021-8 ####[facility] LABCLIA [id number] [place] [address] Lymphocytes/100 WBC (Bld) 13.4 % Normal [facility] Comment on above: Order Comment: Speci men Type: BLOOD SPECIMENOrdering Facility: [facility] Address: [address] [place] [address] Performed By: #### 5 7021-8 ####[facility] LABCLIA [id number] [place] [address] MCH (RBC) [Entitic mass] 33.9 pg Normal 26.0-34.0 [facility] Comment on above: Order Comment: Speci men Type: BLOOD SPECIMENOrdering Facility: [facility] Address: [address] [place] [address] Performed By: #### 5 7021-8 ####[facility] LABCLIA [id number] [place] [address] MCHC (RBC) [Mass/Vol] 32.7 g/dL Normal 30.5-36.0 [facility] Comment on above: Order Comment: Speci men Type: BLOOD SPECIMENOrdering Facility: [facility] Address: [address] [place] [address] Performed By: #### 5 7021-8 ####[facility] LABIA [id number] [place] [address] MCV (RBC) [Entitic vol] 103.5 fL High 80.0-100.0 [facility] Comment on above: Order Comment: Speci men Type: BLOOD SPECIMENOrdering Facility: [facility] Address: [address] [place] [address] Performed By: #### 5 7021-8 ####[facility] LABCLIA [id number] [place] [address] Monocytes (Bld) [#/Vol] 0.64 10*3/uL Normal <0.87 [facility] Comment on above: Order Comment: Speci men Type: BLOOD SPECIMENOrdering Facility: [facility] Address: [address] [place] [address] Performed By: #### 5 7021-8 ####[facility] LABCLIA [id number] [place] [address] Monocytes/100 WBC (Bld) 6.8 % Normal [facility] Comment on above: Order Comment: Speci men Type: BLOOD SPECIMENOrdering Facility: [facility] Address: [address] [place] [address] Performed By: #### 5 7021-8 ####[facility] LABCLIA [id number] [place] [address] Neutrophils (Bld) [#/Vol] 7.09 10*3/uL Normal 1.45-7.50 [facility] Comment on above: Order Comment: Speci men Type: BLOOD SPECIMENOrdering Facility: [facility] Address: [address] [place] [address] Performed By: #### 5 7021-8 ####[facility] LABCLIA [id number] [place] [address] Neutrophils/100 WBC (Bld) 74.9 % Normal [facility] Comment on above: Order Comment: Speci men Type: BLOOD SPECIMENOrdering Facility: [facility] Address: [address] [place] [address] Performed By: #### 5 7021-8 ####[facility] LABCLIA [id number] [place] [address] Nucleated RBC (Bld) [#/Vol] 10*3/uL Normal <0.01 [facility] Comment on above: Order Comment: Speci men Type: BLOOD SPECIMENOrdering Facility: [facility] Address: [address] [place] [address] Performed By: #### 5 7021-8 ####[facility] LABCLIA [id number] [place] [address] Nucleated RBC/100 WBC (Bld) [Ratio] 0.0 /100 WBC Normal [facility] Comment on above: Order Comment: Speci men Type: BLOOD SPECIMENOrdering Facility: [facility] Address: [address] [place] [address] Performed By: #### 5 7021-8 ####[facility] LABCLIA [id number] [place] [address] Platelet mean volume (Bld) [Entitic vol] 9.8 fL Normal 9.0-12.7 [facility] Comment on above: Order Comment: Speci men Type: BLOOD SPECIMENOrdering Facility: [facility] Address: [address] [place] [address] Performed By: #### 5 7021-8 ####[facility] LABCLIA [id number] [place] [address] Platelets (Bld) [#/Vol] 258 10*3/uL Normal 150-400 [facility] Comment on above: Order Comment: Speci men Type: BLOOD SPECIMENOrdering Facility: [facility] Address: [address] [place] [address] Performed By: #### 5 7021-8 ####[facility] LABIA [id number] [place] [address] RBC (Bld) [#/Vol] 3.13 10*6/uL Low 3.90-5.20 [facility] Comment on above: Order Comment: Speci men Type: BLOOD SPECIMENOrdering Facility: [facility] Address: [address] [place] [address] Performed By: #### 5 7021-8 ####[facility] LABIA [id number] [place] [address] WBC (Bld) [#/Vol] 9.46 10*3/uL Normal 3.70-11.00 [facility] Comment on above: Order Comment: Speci men Type: BLOOD SPECIMENOrdering Facility: [facility] Address: [address] [place] [address] Performed By: #### 5 7021-8 ####[facility] LABIA [id number] [place] [address] CBC W Auto Differential pane l (Bld)on 09-22-2023 Basophils (Bld) [#/Vol] 0.05 10*3/uL Normal <0.11 [facility] Comment on above: Order Comment: Speci men Type: BLOOD SPECIMENOrdering Facility: [facility] Address: [address] [place] [address] Performed By: #### 5 7021-8 ####[facility] LABCLIA [id number] [place] [address] Basophils/100 WBC (Bld) 0.6 % Normal [facility] Comment on above: Order Comment: Speci men Type: BLOOD SPECIMENOrdering Facility: [facility] Address: [address] [place] [address] Performed By: #### 5 7021-8 ####[facility] LABCLIA [id number] [place] [address] Differential cell count method Nom (Bld) Auto Normal [facility] Comment on above: Order Comment: Speci men Type: BLOOD SPECIMENOrdering Facility: [facility] Address: [address] [place] [address] Performed By: #### 5 7021-8 ####[facility] LABCLIA [id number] [place] [address] Eosinophils (Bld) [#/Vol] 0.27 10*3/uL Normal <0.46 [facility] Comment on above: Order Comment: Speci men Type: BLOOD SPECIMENOrdering Facility: [facility] Address: [address] [place] [address] Performed By: #### 5 7021-8 ####[facility] LABCLIA [id number] [place] [address] Eosinophils/100 WBC (Bld) 3.2 % Normal [facility] Comment on above: Order Comment: Speci men Type: BLOOD SPECIMENOrdering Facility: [facility] Address: [address] [place] [address] Performed By: #### 5 7021-8 ####[facility] LABCLIA [id number] [place] [address] Erythrocyte distribution width (RBC) [Ratio] 15.7 % High 11.5-15.0 [facility] Comment on above: Order Comment: Speci men Type: BLOOD SPECIMENOrdering Facility: [facility] Address: [address] [place] [address] Performed By: #### 5 7021-8 ####[facility] LABCLIA [id number] [place] [address] Hematocrit (Bld) [Volume fraction] 36.5 % Normal 36.0-46.0 [facility] Comment on above: Order Comment: Speci men Type: BLOOD SPECIMENOrdering Facility: [facility] Address: [address] [place] [address] Performed By: #### 5 7021-8 ####[facility] LABIA [id number] [place] [address] Hemoglobin (Bld) [Mass/Vol] 11.9 g/dL Normal 11.5-15.5 [facility] Comment on above: Order Comment: Speci men Type: BLOOD SPECIMENOrdering Facility: [facility] Address: [address] [place] [address] Performed By: #### 5 7021-8 ####[facility] LABIA [id number] [place] [address] Immature granulocytes (Bld) [#/Vol] 0.04 10*3/uL Normal <0.10 [facility] Comment on above: Order Comment: Speci men Type: BLOOD SPECIMENOrdering Facility: [facility] Address: [address] [place] [address] Performed By: #### 5 7021-8 ####[facility] LABIA [id number] [place] [address] Immature granulocytes/100 WBC (Bld) 0.5 % Normal [facility] Comment on above: Order Comment: Speci men Type: BLOOD SPECIMENOrdering Facility: [facility] Address: [address] [place] [address] Performed By: #### 5 7021-8 ####[facility] LABCLIA [id number] [place] [address] Lymphocytes (Bld) [#/Vol] 1.15 10*3/uL Normal 1.00-4.00 [facility] Comment on above: Order Comment: Speci men Type: BLOOD SPECIMENOrdering Facility: [facility] Address: [address] [place] [address] Performed By: #### 5 7021-8 ####[facility] LABCLIA [id number] [place] [address] Lymphocytes/100 WBC (Bld) 13.6 % Normal [facility] Comment on above: Order Comment: Speci men Type: BLOOD SPECIMENOrdering Facility: [facility] Address: [address] [place] [address] Performed By: #### 5 7021-8 ####[facility] LABCLIA [id number] [place] [address] MCH (RBC) [Entitic mass] 34.4 pg High 26.0-34.0 [facility] Comment on above: Order Comment: Speci men Type: BLOOD SPECIMENOrdering Facility: [facility] Address: [address] [place] [address] Performed By: #### 5 7021-8 ####[facility] LABCLIA [id number] [place] [address] MCHC (RBC) [Mass/Vol] 32.6 g/dL Normal 30.5-36.0 [facility] Comment on above: Order Comment: Speci men Type: BLOOD SPECIMENOrdering Facility: [facility] Address: [address] [place] [address] Performed By: #### 5 7021-8 ####[facility] LABCLIA [id number] [place] [address] MCV (RBC) [Entitic vol] 105.5 fL High 80.0-100.0 [facility] Comment on above: Order Comment: Speci men Type: BLOOD SPECIMENOrdering Facility: [facility] Address: [address] [place] [address] Performed By: #### 5 7021-8 ####[facility] LABCLIA [id number] [place] [address] Monocytes (Bld) [#/Vol] 0.65 10*3/uL Normal <0.87 [facility] Comment on above: Order Comment: Speci men Type: BLOOD SPECIMENOrdering Facility: [facility] Address: [address] [place] [address] Performed By: #### 5 7021-8 ####[facility] LABCLIA [id number] [place] [address] Monocytes/100 WBC (Bld) 7.7 % Normal [facility] Comment on above: Order Comment: Speci men Type: BLOOD SPECIMENOrdering Facility: [facility] Address: [address] [place] [address] Performed By: #### 5 7021-8 ####[facility] LABCLIA [id number] [place] [address] Neutrophils (Bld) [#/Vol] 6.31 10*3/uL Normal 1.45-7.50 [facility] Comment on above: Order Comment: Speci men Type: BLOOD SPECIMENOrdering Facility: [facility] Address: [address] [place] [address] Performed By: #### 5 7021-8 ####[facility] LABCLIA [id number] [place] [address] Neutrophils/100 WBC (Bld) 74.4 % Normal [facility] Comment on above: Order Comment: Speci men Type: BLOOD SPECIMENOrdering Facility: [facility] Address: [address] [place] [address] Performed By: #### 5 7021-8 ####[facility] LABCLIA [id number] [place] [address] Nucleated RBC (Bld) [#/Vol] 10*3/uL Normal <0.01 [facility] Comment on above: Order Comment: Speci men Type: BLOOD SPECIMENOrdering Facility: [facility] Address: [address] [place] [address] Performed By: #### 5 7021-8 ####[facility] LABCLIA [id number] [place] [address] Nucleated RBC/100 WBC (Bld) [Ratio] 0.0 /100 WBC Normal [facility] Comment on above: Order Comment: Speci men Type: BLOOD SPECIMENOrdering Facility: [facility] Address: [address] [place] [address] Performed By: #### 5 7021-8 ####[facility] LABCLIA [id number] [place] [address] Platelet mean volume (Bld) [Entitic vol] 9.9 fL Normal 9.0-12.7 [facility] Comment on above: Order Comment: Speci men Type: BLOOD SPECIMENOrdering Facility: [facility] Address: [address] [place] [address] Performed By: #### 5 7021-8 ####[facility] LABCLIA [id number] [place] [address] Platelets (Bld) [#/Vol] 239 10*3/uL Normal 150-400 [facility] Comment on above: Order Comment: Speci men Type: BLOOD SPECIMENOrdering Facility: [facility] Address: [address] [place] [address] Performed By: #### 5 7021-8 ####[facility] LABCLIA [id number] [place] [address] RBC (Bld) [#/Vol] 3.46 10*6/uL Low 3.90-5.20 [facility] Comment on above: Order Comment: Speci men Type: BLOOD SPECIMENOrdering Facility: [facility] [facility] Address: [address] [place] [address] Performed By: #### 5 7021-8 ####[facility] LABCLIA [id number] [place] [address] WBC (Bld) [#/Vol] 8.47 10*3/uL Normal 3.70-11.00 [facility] Comment on above: Order Comment: Speci men Type: BLOOD SPECIMENOrdering Facility: [facility] Address: [address] [place] [address] Performed By: #### 5 7021-8 ####[facility] LABCLIA [id number] [place] [address] Comprehensive metabolic 2000 panelon 09-22-2023 Albumin [Mass/Vol] 4.5 g/dL Normal 3.9-4.9 [facility] Comment on above: Order Comment: Speci men Type: BLOOD SPECIMENOrdering Facility: [facility] Address: [address] [place] [address] Performed By: #### 2 4323-8 ####[facility] LABCLIA [id number] [place] [address] ALP [Catalytic activity/Vol] 99 U/L Normal 34-123 [facility] Comment on above: Order Comment: Speci men Type: BLOOD SPECIMENOrdering Facility: [facility] Address: [address] [place] [address] Performed By: #### 2 4323-8 ####[facility] LABCLIA [id number] [place] [address] ALT [Catalytic activity/Vol] 15 U/L Normal 7-38 [facility] Comment on above: Order Comment: Speci men Type: BLOOD SPECIMENOrdering Facility: [facility] Address: [address] [place] [address] Performed By: #### 2 4323-8 ####[facility] LABCLIA [id number] [place] [address] Anion gap [Moles/Vol] 15 mmol/L Normal 8-15 [facility] Comment on above: Order Comment: Speci men Type: BLOOD SPECIMENOrdering Facility: [facility] Address: [address] [place] [address] Performed By: #### 2 4323-8 ####[facility] LABCLIA [id number] [place] [address] AST [Catalytic activity/Vol] 16 U/L Normal 13-35 [facility] Comment on above: Order Comment: Speci men Type: BLOOD SPECIMENOrdering Facility: [facility] Address: [address] [place] [address] Performed By: #### 2 4323-8 ####[facility] LABCLIA [id number] [place] [address] Bilirubin [Mass/Vol] 0.5 mg/dL Normal 0.2-1.3 [facility] Comment on above: Order Comment: Speci men Type: BLOOD SPECIMENOrdering Facility: [facility] Address: [address] [place] [address] Performed By: #### 2 4323-8 ####[facility] LABCLIA [id number] [place] [address] Calcium [Mass/Vol] 11.0 mg/dL High 8.5-10.2 [facility] Comment on above: Order Comment: Speci men Type: BLOOD SPECIMENOrdering Facility: [facility] Address: [address] [place] [address] Performed By: #### 2 4323-8 ####[facility] LABCLIA [id number] [place] [address] Chloride [Moles/Vol] 96 mmol/L Low 98-107 [facility] Comment on above: Order Comment: Speci men Type: BLOOD SPECIMENOrdering Facility: [facility] Address: [address] [place] [address] Performed By: #### 2 4323-8 ####[facility] LABCLIA [id number] [place] [address] CO2 [Moles/Vol] 30 mmol/L Normal 22-30 [facility] Comment on above: Order Comment: Speci men Type: BLOOD SPECIMENOrdering Facility: [facility] Address: [address] [place] [address] Performed By: #### 2 4323-8 ####[facility] LABCLIA [id number] [place] [address] Creatinine [Mass/Vol] 17.97 mg/dL High 0.58-0.96 [facility] Comment on above: Order Comment: Speci men Type: BLOOD SPECIMENOrdering Facility: [facility] Address: [address] [place] [address] Performed By: #### 2 4323-8 ####[facility] LABCLIA [id number] [place] [address] Creatinine and Glomerular filtration rate.predicted panel (S/P/Bld) 2 mL/min/1.73m??? Low >=60 [facility] Comment on above: Order Comment: Speci men Type: BLOOD SPECIMENOrdering Facility: [facility] Address: [address] [place] [address] Result Comment: Rylee mated Glomerular Filtration Rate (eGFR) is calculated using the 2020 CKD-EPI creatinine equation. This equation utilizes serum creatinine, sex, and age as parameters. The creatinine assay has traceable calibration to isotope dilution-mass spectrometry. Refer to KDIGO guidelines for clinical interpretation. In patients with unstable renal function, e.g. those with acute kidney injury, the eGFR may not accurately reflect actual GFR. Performed By: #### 2 4323-8 ####[facility] LABCLIA [id number] [place] [address] Glucose [Mass/Vol] 113 mg/dL High 74-99 [facility] Comment on above: Order Comment: Speci men Type: BLOOD SPECIMENOrdering Facility: [facility] Address: [address] [place] [address] Result Comment: The [place] Diabetes Association (ADA) provides guidance for cutoff values for fasting glucose and random glucose. The ADA defines fasting as no caloric intake for at least 8 hours. Fasting plasma glucose results between 100 to 125 mg/dL indicate increased risk for diabetes (prediabetes).Fasting plasma glucose results greater than or equal to 126 mg/dL meet the criteria for diagnosis of diabetes. In the absence of unequivocal hyperglycemia, results should be confirmed by repeat testing. In a patient with classic symptoms of hyperglycemia or hyperglycemic crisis, random plasma glucose results greater than or equal to 200 mg/dL meet the criteria for diagnosis of diabetes.Reference: Standards of Medical Care in Diabetes 2016, [place] [employer]. Diabetes Care. 2016.39(Suppl 1). Performed By: #### 2 4323-8 ####[facility] LABCLIA [id number] [place] [address] Potassium [Moles/Vol] 4.7 mmol/L Normal 3.7-5.1 [facility] Comment on above: Order Comment: [facility] Type: BLOOD SPECIMENOrdering Facility: [facility] Address: [address] [id number] Performed By: #### 2 4323-8 ####[facility] LABCLIA [id number] [place] [address] Protein [Mass/Vol] 6.9 g/dL Normal 6.3-8.0 [facility] Comment on above: Order Comment: [facility] Type: BLOOD SPECIMENOrdering Facility: [facility] Address: [address] [place] [address] Performed By: #### 2 4323-8 ####[facility] LABCLIA [id number] [place] [address] Sodium [Moles/Vol] 141 mmol/L Normal 136-144 [facility] Comment on above: Order Comment: Speci men Type: BLOOD SPECIMENOrdering Facility: [facility] Address: [address] [phone] Performed By: #### 2 4323-8 ####[facility] LABCLIA [id number] [place] [address] Urea nitrogen [Mass/Vol] 55 mg/dL High 7-21 [facility] Comment on above: Order Comment: Speci men Type: BLOOD SPECIMENOrdering Facility: [facility] Address: [address] [place] [address] Performed By: #### 2 4323-8 ####[facility] LABCLIA [id number] [place] [address] CBC W Auto Differential pane l (Bld)on 09-15-2023 Basophils (Bld) [#/Vol] 0.04 10*3/uL Normal <0.11 [facility] Comment on above: Order Comment: Speci men Type: BLOOD SPECIMENOrdering Facility: [facility] Address: [address] [place] [address] Performed By: #### 5 7021-8 ####[facility] LABCLIA [id number] [place] [address] Basophils/100 WBC (Bld) 0.5 % Normal [facility] Comment on above: Order Comment: Speci men Type: BLOOD SPECIMENOrdering Facility: [facility] Address: [address] [place] [address] Performed By: #### 5 7021-8 ####[facility] LABCLIA [id number] [place] [address] Differential cell count method Nom (Bld) Auto Normal [facility] Comment on above: Order Comment: Speci men Type: BLOOD SPECIMENOrdering Facility: [facility] Address: [address] [place] [address] Performed By: #### 5 7021-8 ####[facility] LABCLIA [id number] [place] [address] Eosinophils (Bld) [#/Vol] 0.26 10*3/uL Normal <0.46 [facility] Comment on above: Order Comment: Speci men Type: BLOOD SPECIMENOrdering Facility: [facility] Address: [address] [place] [address] Performed By: #### 5 7021-8 ####[facility] LABCLIA [id number] [place] [address] Eosinophils/100 WBC (Bld) 3.0 % Normal [facility] Comment on above: Order Comment: Speci men Type: BLOOD SPECIMENOrdering Facility: [facility] Address: [address] [place] [address] Performed By: #### 5 7021-8 ####[facility] LABCLIA [id number] [place] [address] Erythrocyte distribution width (RBC) [Ratio] 16.4 % High 11.5-15.0 [facility] Comment on above: Order Comment: Speci men Type: BLOOD SPECIMENOrdering Facility: [facility] Address: [address] [place] [address] Performed By: #### 5 7021-8 ####[facility] LABCLIA [id number] [place] [address] Hematocrit (Bld) [Volume fraction] 34.7 % Low 36.0-46.0 [facility] Comment on above: Order Comment: Speci men Type: BLOOD SPECIMENOrdering Facility: [facility] Address: [address] [place] [address] Performed By: #### 5 7021-8 ####[facility] LABCLIA [id number] [place] [address] Hemoglobin (Bld) [Mass/Vol] 11.2 g/dL Low 11.5-15.5 [facility] Comment on above: Order Comment: Speci men Type: BLOOD SPECIMENOrdering Facility: [facility] Address: [address] [place] [address] Performed By: #### 5 7021-8 ####[facility] LABCLIA [id number] [place] [address] Immature granulocytes (Bld) [#/Vol] 0.10 10*3/uL High <0.10 [facility] Comment on above: Order Comment: Speci men Type: BLOOD SPECIMENOrdering Facility: [facility] Address: [address] [place] [address] Performed By: #### 5 7021-8 ####[facility] LABCLIA [id number] [place] [address] Immature granulocytes/100 WBC (Bld) 1.2 % Normal [facility] Comment on above: Order Comment: Speci men Type: BLOOD SPECIMENOrdering Facility: [facility] Address: [address] [place] [address] Performed By: #### 5 7021-8 ####[facility] LABIA [id number] [place] [address] Lymphocytes (Bld) [#/Vol] 0.91 10*3/uL Low 1.00-4.00 [facility] Comment on above: Order Comment: Speci men Type: BLOOD SPECIMENOrdering Facility: [facility] Address: [address] [place] [address] Performed By: #### 5 7021-8 ####[facility] LABCLIA [id number] [place] [address] Lymphocytes/100 WBC (Bld) 10.6 % Normal [facility] Comment on above: Order Comment: Speci men Type: BLOOD SPECIMENOrdering Facility: [facility] Address: [address] [place] [address] Performed By: #### 5 7021-8 ####[facility] LABIA [id number] [place] [address] MCH (RBC) [Entitic mass] 34.1 pg High 26.0-34.0 [facility] Comment on above: Order Comment: Speci men Type: BLOOD SPECIMENOrdering Facility: [facility] Address: [address] [place] [address] Performed By: #### 5 7021-8 ####[facility] LABCLIA [id number] [place] [address] MCHC (RBC) [Mass/Vol] 32.3 g/dL Normal 30.5-36.0 [facility] Comment on above: Order Comment: Speci men Type: BLOOD SPECIMENOrdering Facility: [facility] Address: [address] [place] [address] Performed By: #### 5 7021-8 ####[facility] LABCLIA [id number] [place] [address] MCV (RBC) [Entitic vol] 105.8 fL High 80.0-100.0 [facility] Comment on above: Order Comment: Speci men Type: BLOOD SPECIMENOrdering Facility: [facility] Address: [address] [place] [address] Performed By: #### 5 7021-8 ####[facility] LABCLIA [id number] [place] [address] Monocytes (Bld) [#/Vol] 0.63 10*3/uL Normal <0.87 [facility] Comment on above: Order Comment: Speci men Type: BLOOD SPECIMENOrdering Facility: [facility] Address: [address] [place] [address] Performed By: #### 5 7021-8 ####[facility] LABCLIA [id number] [place] [address] Monocytes/100 WBC (Bld) 7.4 % Normal [facility] Comment on above: Order Comment: Speci men Type: BLOOD SPECIMENOrdering Facility: [facility] Address: [address] [place] [address] Performed By: #### 5 7021-8 ####[facility] LABCLIA [id number] [place] [address] Neutrophils (Bld) [#/Vol] 6.62 10*3/uL Normal 1.45-7.50 [facility] Comment on above: Order Comment: Speci men Type: BLOOD SPECIMENOrdering Facility: [facility] Address: [address] [place] [address] Performed By: #### 5 7021-8 ####[facility] LABCLIA [id number] [place] [address] Neutrophils/100 WBC (Bld) 77.3 % Normal [facility] Comment on above: Order Comment: Speci men Type: BLOOD SPECIMENOrdering Facility: [facility] Address: [address] [place] [address] Performed By: #### 5 7021-8 ####[facility] LABCLIA [id number] [place] [address] Nucleated RBC (Bld) [#/Vol] 10*3/uL Normal <0.01 [facility] Comment on above: Order Comment: Speci men Type: BLOOD SPECIMENOrdering Facility: [facility] Address: [address] [place] [address] Performed By: #### 5 7021-8 ####[facility] LABCLIA [id number] [place] [address] Nucleated RBC/100 WBC (Bld) [Ratio] 0.0 /100 WBC Normal [facility] Comment on above: Order Comment: Speci men Type: BLOOD SPECIMENOrdering Facility: [facility] Address: [address] [place] [address] Performed By: #### 5 7021-8 ####[facility] LABCLIA [id number] [place] [address] Platelet mean volume (Bld) [Entitic vol] 8.9 fL Low 9.0-12.7 [facility] Comment on above: Order Comment: Speci men Type: BLOOD SPECIMENOrdering Facility: [facility] Address: [address] [place] [address] Performed By: #### 5 7021-8 ####[facility] LABCLIA [id number] [place] [address] Platelets (Bld) [#/Vol] 262 10*3/uL Normal 150-400 [facility] Comment on above: Order Comment: Speci men Type: BLOOD SPECIMENOrdering Facility: [facility] Address: [address] [place] [address] Performed By: #### 5 7021-8 ####[facility] LABCLIA [id number] [place] [address] RBC (Bld) [#/Vol] 3.28 10*6/uL Low 3.90-5.20 [facility] Comment on above: Order Comment: Speci men Type: BLOOD SPECIMENOrdering Facility: [facility] Address: [address] [place] [address] Performed By: #### 5 7021-8 ####[facility] LABIA [id number] [place] [address] WBC (Bld) [#/Vol] 8.56 10*3/uL Normal 3.70-11.00 [facility] Comment on above: Order Comment: Speci men Type: BLOOD SPECIMENOrdering Facility: [facility] Address: [address] [place] [address] Performed By: #### 5 7021-8 ####[facility] LABCLIA [id number] [place] [address] Lipid 1996 panelon 4 Cholesterol [Mass/Vol] 133 mg/dL Normal <200 [facility] Comment on above: Order Comment: Speci men Type: BLOOD SPECIMENOrdering Facility: External Submitter Address: , , Result Comment: <200 mg/dL, Desirable 200-239 mg/dL, Borderline high>239 mg/dL, High Performed By: #### 2 4331-1 ####[facility] LABCLIA [id number] [place] [id number] [facility] LABCLIA [id number] [place] [address] Cholesterol in HDL [Mass/Vol] 42 mg/dL Normal >39 [facility] Comment on above: Order Comment: Speci men Type: BLOOD SPECIMENOrdering Facility: External Submitter Address: , , Result Comment: 40-5 9 mg/dL, Acceptable>59 mg/dL, High: Negative risk factor for coronary heart disease<40 mg/dL, Low: Positive risk factor for coronary heart disease Performed By: #### 2 4331-1 ####[facility] LABCLIA [id number] [address] [address] [facility] LABCLIA [id number] [place] [address] Cholesterol in LDL [Mass/Vol] 60 mg/dL Normal <100 [facility] Comment on above: Order Comment: Isaiah paula Type: BLOOD SPECIMENOrdering Facility: External Submitter Address: , , Result Comment: <100 mg/dL, Optimal 100-129 mg/dL, Near optimal/above optimal 130-159 mg/dL, Borderline high 160-189 mg/dL, High>189 mg/dL, Very highSecondary prevention optimal LDL Cholesterol levels are recommended to be < 70 mg/dL Performed By: #### 2 4331-1 ####[facility] LABCLIA [id number] [address] [id number] [facility] LABCLIA [id number] [place] [address] Cholesterol in LDL/Cholesterol in HDL [Mass ratio] 1.43 {ratio} Normal <2.54 [facility] Comment on above: Order Comment: Isaiah mitchell Type: BLOOD SPECIMENOrdering Facility: External Submitter Address: , , Result Comment: Vincent gregoryce:1. National Cholesterol Education Program ATP III Guideline At-A-Glance Quick Desk Reference: National Heart, Lung, and Blood Douglass. National Institutes of Health. 2001: NIH Publication No. 01-3305.2. An International Atherosclerosis Society position paper: global recommendations for the management of dyslipidemia: executive summary, Atherosclerosis. 2014: 232(2):410-413. Performed By: #### 2 4331-1 ####[facility] LABCLIA [id number] [id number] [place] [address] LABCLIA [id number] [place] [address] Cholesterol in VLDL [Mass/Vol] 31 mg/dL High <30 [facility] Comment on above: Order Comment: Speci men Type: BLOOD SPECIMENOrdering Facility: External Submitter Address: , , Performed By: #### 2 4331-1 ####[facility] LABCLIA [id number] [address] LABCLIA [id number] [place] [address] Cholesterol non HDL [Mass/Vol] 91 mg/dL Normal <130 [facility] Comment on above: Order Comment: Speci men Type: BLOOD SPECIMENOrdering Facility: [facility] Address: , , Result Comment: <130 mg/dL, Optimal 130-159 mg/dL, Near optimal/above optimal 160-189 mg/dL, Borderline high 190-219 mg/dL, High>219 mg/dL, Very highSecondary prevention optimal non HDL Cholesterol levels are recommended to be <100 mg/dL Performed By: #### 2 4331-1 ####[facility] LABCLIA [id number] [address] LABCLIA [id number] [place] [address] Cholesterol.total/C holesterol in HDL [Mass ratio] 3.17 {ratio} Normal <5.10 [facility] Comment on above: Order Comment: Speci men Type: BLOOD SPECIMENOrdering Facility: External [facility] Address: , , Performed By: #### 2 4331-1 ####[facility] LABCLIA [id number] [address] [address] [facility] LABCLIA [id number] [place] [address] FASTING TIME 12 hrs Normal [facility] Comment on above: Order Comment: Speci men Type: BLOOD SPECIMENOrdering Facility: External Submitter Address: , , Performed By: #### 2 4331-1 ####[facility] LABCLIA [id number] [address] [id number] [facility] LABCLIA [id number] [place] [address] Triglyceride [Mass/Vol] 155 mg/dL High <150 [facility] Comment on above: Order Comment: Speci men Type: BLOOD SPECIMENOrdering Facility: External Submitter Address: , , Result Comment: <150 mg/dL, Normal 150-199 mg/dL, Borderline high 200-499 mg/dL, High>499 mg/dL, Very high Performed By: #### 2 4331-1 ####[facility] LABCLIA [id number] [address] [id number] [facility] LABCLIA [id number] [place] [id number] CBC W Auto Differential pane l (Bld)on 09-08-2023 Basophils (Bld) [#/Vol] 0.05 10*3/uL Normal <0.11 [facility] Comment on above: Order Comment: Speci men Type: BLOOD SPECIMENOrdering Facility: [facility] Address: [address] [place] [address] Performed By: #### 5 7021-8 ####[facility] LABCLIA [id number] [place] [address] Basophils/100 WBC (Bld) 0.6 % Normal [facility] Comment on above: Order Comment: Speci men Type: BLOOD SPECIMENOrdering Facility: [facility] Address: [address] [place] [address] Performed By: #### 5 7021-8 ####[facility] LABCLIA [id number] [place] [address] Differential cell count method Nom (Bld) Auto Normal [facility] Comment on above: Order Comment: Speci men Type: BLOOD SPECIMENOrdering Facility: [facility] Address: [address] [place] [address] Performed By: #### 5 7021-8 ####[facility] LABCLIA [id number] [place] [address] Eosinophils (Bld) [#/Vol] 0.29 10*3/uL Normal <0.46 [facility] Comment on above: Order Comment: Speci men Type: BLOOD SPECIMENOrdering Facility: [facility] Address: [address] [place] [address] Performed By: #### 5 7021-8 ####[facility] LABCLIA [id number] [place] [address] Eosinophils/100 WBC (Bld) 3.4 % Normal [facility] Comment on above: Order Comment: Speci men Type: BLOOD SPECIMENOrdering Facility: [facility] Address: [address] [place] [address] Performed By: #### 5 7021-8 ####[facility] LABCLIA [id number] [place] [address] Erythrocyte distribution width (RBC) [Ratio] 15.3 % High 11.5-15.0 [facility] Comment on above: Order Comment: Speci men Type: BLOOD SPECIMENOrdering Facility: [facility] Address: [address] [place] [address] Performed By: #### 5 7021-8 ####[facility] LABCLIA [id number] [place] [address] Hematocrit (Bld) [Volume fraction] 32.1 % Low 36.0-46.0 [facility] Comment on above: Order Comment: Speci men Type: BLOOD SPECIMENOrdering Facility: [facility] Address: [address] [place] [address] Performed By: #### 5 7021-8 ####[facility] LABIA [id number] [place] [address] Hemoglobin (Bld) [Mass/Vol] 10.4 g/dL Low 11.5-15.5 [facility] Comment on above: Order Comment: Speci men Type: BLOOD SPECIMENOrdering Facility: [facility] Address: [address] [place] [address] Performed By: #### 5 7021-8 ####[facility] LABCLIA [id number] [place] [address] Immature granulocytes (Bld) [#/Vol] 0.08 10*3/uL Normal <0.10 [facility] Comment on above: Order Comment: Speci men Type: BLOOD SPECIMENOrdering Facility: [facility] Address: [address] [place] [address] Performed By: #### 5 7021-8 ####[facility] LABCLIA [id number] [place] [address] Immature granulocytes/100 WBC (Bld) 0.9 % Normal [facility] Comment on above: Order Comment: Speci men Type: BLOOD SPECIMENOrdering Facility: [facility] Address: [address] [place] [address] Performed By: #### 5 7021-8 ####[facility] LABCLIA [id number] [place] [address] Lymphocytes (Bld) [#/Vol] 1.04 10*3/uL Normal 1.00-4.00 [facility] Comment on above: Order Comment: Speci men Type: BLOOD SPECIMENOrdering Facility: [facility] Address: [address] [place] [address] Performed By: #### 5 7021-8 ####[facility] LABCLIA [id number] [place] [address] Lymphocytes/100 WBC (Bld) 12.2 % Normal [facility] Comment on above: Order Comment: Speci men Type: BLOOD SPECIMENOrdering Facility: [facility] Address: [address] [place] [address] Performed By: #### 5 7021-8 ####[facility] LABCLIA [id number] [place] [address] MCH (RBC) [Entitic mass] 34.1 pg High 26.0-34.0 [facility] Comment on above: Order Comment: Speci men Type: BLOOD SPECIMENOrdering Facility: [facility] Address: [address] [place] [address] Performed By: #### 5 7021-8 ####[facility] LABCLIA [id number] [place] [address] MCHC (RBC) [Mass/Vol] 32.4 g/dL Normal 30.5-36.0 [facility] Comment on above: Order Comment: Speci men Type: BLOOD SPECIMENOrdering Facility: [facility] Address: [address] [place] [address] Performed By: #### 5 7021-8 ####[facility] LABCLIA [id number] [place] [address] MCV (RBC) [Entitic vol] 105.2 fL High 80.0-100.0 [facility] Comment on above: Order Comment: Speci men Type: BLOOD SPECIMENOrdering Facility: [facility] Address: [address] [place] [address] Performed By: #### 5 7021-8 ####[facility] LABIA [id number] [place] [address] Monocytes (Bld) [#/Vol] 0.67 10*3/uL Normal <0.87 [facility] Comment on above: Order Comment: Speci men Type: BLOOD SPECIMENOrdering Facility: [facility] Address: [address] [place] [address] Performed By: #### 5 7021-8 ####[facility] LABCLIA [id number] [place] [address] Monocytes/100 WBC (Bld) 7.9 % Normal [facility] Comment on above: Order Comment: Speci men Type: BLOOD SPECIMENOrdering Facility: [facility] Address: [address] [place] [address] Performed By: #### 5 7021-8 ####[facility] LABCLIA [id number] [place] [address] Neutrophils (Bld) [#/Vol] 6.36 10*3/uL Normal 1.45-7.50 [facility] Comment on above: Order Comment: Speci men Type: BLOOD SPECIMENOrdering Facility: [facility] Address: [address] [place] [address] Performed By: #### 5 7021-8 ####[facility] LABCLIA [id number] [place] [address] Neutrophils/100 WBC (Bld) 75.0 % Normal [facility] Comment on above: Order Comment: Speci men Type: BLOOD SPECIMENOrdering Facility: [facility] Address: [address] [place] [address] Performed By: #### 5 7021-8 ####[facility] LABCLIA [id number] [place] [address] Nucleated RBC (Bld) [#/Vol] 10*3/uL Normal <0.01 [facility] Comment on above: Order Comment: Speci men Type: BLOOD SPECIMENOrdering Facility: [facility] Address: [address] [place] [address] Performed By: #### 5 7021-8 ####[facility] LABCLIA [id number] [place] [address] Nucleated RBC/100 WBC (Bld) [Ratio] 0.0 /100 WBC Normal [facility] Comment on above: Order Comment: Speci men Type: BLOOD SPECIMENOrdering Facility: [facility] Address: [address] [place] [address] Performed By: #### 5 7021-8 ####[facility] LABCLIA [id number] [place] [address] Platelet mean volume (Bld) [Entitic vol] 9.7 fL Normal 9.0-12.7 [facility] Comment on above: Order Comment: Speci men Type: BLOOD SPECIMENOrdering Facility: [facility] Address: [address] [place] [address] Performed By: #### 5 7021-8 ####[facility] LABCLIA [id number] [place] [address] Platelets (Bld) [#/Vol] 366 10*3/uL Normal 150-400 [facility] Comment on above: Order Comment: Speci men Type: BLOOD SPECIMENOrdering Facility: [facility] Address: [address] [place] [address] Performed By: #### 5 7021-8 ####[facility] LABCLIA [id number] [place] [address] RBC (Bld) [#/Vol] 3.05 10*6/uL Low 3.90-5.20 [facility] Comment on above: Order Comment: Speci men Type: BLOOD SPECIMENOrdering Facility: [facility] Address: [address] [place] [address] Performed By: #### 5 7021-8 ####[facility] LABCLIA [id number] [place] [address] WBC (Bld) [#/Vol] 8.49 10*3/uL Normal 3.70-11.00 [facility] Comment on above: Order Comment: Speci men Type: BLOOD SPECIMENOrdering Facility: [facility] Address: [address] [place] [address] Performed By: #### 5 7021-8 ####[facility] LABCLIA [id number] [place] [address] Comprehensive metabolic 2000 panelon 09-08-2023 Albumin [Mass/Vol] 4.2 g/dL Normal 3.9-4.9 [facility] Comment on above: Order Comment: Speci men Type: BLOOD SPECIMENOrdering Facility: [facility] Address: [address] [place] [address] Performed By: #### 2 4323-8 ####[facility] LABCLIA [id number] [place] [address] ALP [Catalytic activity/Vol] 89 U/L Normal 34-123 [facility] Comment on above: Order Comment: Speci men Type: BLOOD SPECIMENOrdering Facility: [facility] Address: [address] [place] [address] Performed By: #### 2 4323-8 ####[facility] LABCLIA [id number] [place] [address] ALT [Catalytic activity/Vol] 14 U/L Normal 7-38 [facility] Comment on above: Order Comment: Speci men Type: BLOOD SPECIMENOrdering Facility: [facility] Address: [address] [place] [address] Performed By: #### 2 4323-8 ####[facility] LABCLIA [id number] [place] [address] Anion gap [Moles/Vol] 15 mmol/L Normal 8-15 [facility] Comment on above: Order Comment: Speci men Type: BLOOD SPECIMENOrdering Facility: [facility] Address: [address] [place] [address] Performed By: #### 2 4323-8 ####[facility] LABCLIA [id number] [place] [address] AST [Catalytic activity/Vol] 17 U/L Normal 13-35 [facility] Comment on above: Order Comment: Speci men Type: BLOOD SPECIMENOrdering Facility: [facility] Address: [address] [place] [address] Performed By: #### 2 4323-8 ####[facility] LABCLIA [id number] [place] [address] Bilirubin [Mass/Vol] 0.4 mg/dL Normal 0.2-1.3 [facility] Comment on above: Order Comment: Speci men Type: BLOOD SPECIMENOrdering Facility: [facility] Address: [address] [place] [address] Performed By: #### 2 4323-8 ####[facility] LABCLIA [id number] [place] [address] Calcium [Mass/Vol] 10.2 mg/dL Normal 8.5-10.2 [facility] Comment on above: Order Comment: Speci men Type: BLOOD SPECIMENOrdering Facility: [facility] Address: [address] [place] [address] Performed By: #### 2 4323-8 ####[facility] LABCLIA [id number] [place] [address] Chloride [Moles/Vol] 97 mmol/L Low 98-107 [facility] Comment on above: Order Comment: Speci men Type: BLOOD SPECIMENOrdering Facility: [facility] Address: [address] [place] [address] Performed By: #### 2 4323-8 ####[facility] LABCLIA [id number] [place] [address] CO2 [Moles/Vol] 31 mmol/L High 22-30 [facility] Comment on above: Order Comment: Speci men Type: BLOOD SPECIMENOrdering Facility: [facility] Address: [address] [place] [address] Performed By: #### 2 4323-8 ####[facility] LABCLIA [id number] [place] [address] Creatinine [Mass/Vol] 19.82 mg/dL High 0.58-0.96 [facility] Comment on above: Order Comment: Isaiah mitchell Type: BLOOD SPECIMENOrdering Facility: [facility] Address: [address] [id number] Performed By: #### 2 4323-8 ####[facility] LABCLIA [id number] [place] [address] Creatinine and Glomerular filtration rate.predicted panel (S/P/Bld) 2 mL/min/1.73m??? Low >=60 [facility] Comment on above: Order Comment: Specmiguel angel mitchell Type: BLOOD SPECIMENOrdering Facility: [facility] Address: [address] [place] [address] Result Comment: Rylee mated Glomerular Filtration Rate (eGFR) is calculated using the 2020 CKD-EPI creatinine equation. This equation utilizes serum creatinine, sex, and age as parameters. The creatinine assay has traceable calibration to isotope dilution-mass spectrometry. Refer to KDIGO guidelines for clinical interpretation. In patients with unstable renal function, e.g. those with acute kidney injury, the eGFR may not accurately reflect actual GFR. Performed By: #### 2 4323-8 ####[facility] LABCLIA [id number] [place] [address] Glucose [Mass/Vol] 109 mg/dL High 74-99 [facility] Comment on above: Order Comment: Isaiah mitchell Type: BLOOD SPECIMENOrdering Facility: [facility] Address: [address] [place], [place] [address] Result Comment: The [place] Diabetes [employer] (ADA) provides guidance for cutoff values for fasting glucose and random glucose. The ADA defines fasting as no caloric intake for at least 8 hours. Fasting plasma glucose results between 100 to 125 mg/dL indicate increased risk for diabetes (prediabetes).Fasting plasma glucose results greater than or equal to 126 mg/dL meet the criteria for diagnosis of diabetes. In the absence of unequivocal hyperglycemia, results should be confirmed by repeat testing. In a patient with classic symptoms of hyperglycemia or hyperglycemic crisis, random plasma glucose results greater than or equal to 200 mg/dL meet the criteria for diagnosis of diabetes.Reference: Standards of Medical Care in Diabetes 2016, [place] [employer]. Diabetes Care. 2016.39(Suppl 1). Performed By: #### 2 4323-8 ####[facility] LABCLIA [id number] [place] [address] Potassium [Moles/Vol] 4.5 mmol/L Normal 3.7-5.1 [facility] Comment on above: Order Comment: Speci men Type: BLOOD SPECIMENOrdering Facility: [facility] Address: [address] [place] [address] Performed By: #### 2 4323-8 ####[facility] LABCLIA [id number] [place] [address] Protein [Mass/Vol] 6.3 g/dL Normal 6.3-8.0 [facility] Comment on above: Order Comment: Speci men Type: BLOOD SPECIMENOrdering Facility: [facility] Address: [address] [place] [address] Performed By: #### 2 4323-8 ####[facility] LABCLIA [id number] [place] [address] Sodium [Moles/Vol] 143 mmol/L Normal 136-144 [facility] Comment on above: Order Comment: Speci men Type: BLOOD SPECIMENOrdering Facility: [facility] Address: [address] [place] [address] Performed By: #### 2 4323-8 ####[facility] LABCLIA [id number] [place] [address] Urea nitrogen [Mass/Vol] 58 mg/dL High 7-21 [facility] Comment on above: Order Comment: Speci men Type: BLOOD SPECIMENOrdering Facility: [facility] Address: [address] [place] [address] Performed By: #### 2 4323-8 ####[facility] LABCLIA [id number] [place] [address] [facility] Ferritin [Mass/Vol] 487.0 ng/mL High 14.7-205.1 [facility] Comment on above: Order Comment: Speci men Type: BLOOD SPECIMENOrdering Facility: [facility] Address: [address] [place] [address] Performed By: #### 2 132-9, 2276-4, 2284-8, 42048-5 ####[facility] LABCLIA [id number] [place] [address] [place] [facility] 09-08-19 Folate [Mass/Vol] ng/mL Normal >4.7 [facility] Comment on above: Order Comment: Giselei men Type: BLOOD SPECIMENOrdering Facility: [facility] Address: [address] [place] [address] Result Comment: A re sult of > 20 ng/mL is not necessarily indicative of a pathologic or treatable condition: it reflects a limitation of the test methodology.Assay reference range: 4.8 to 24.2 ng/mL. Suitable for detection of folate deficiency.Reference:Folate III (Folate III) [package insert V 1.0 German]. [facility], [place], [place]: January 2015. Performed By: #### 2 132-9, 6-4, 4-8, 25782-8 ####[facility] LABCLIA [id number] [place] [id number] [place] Iron and Iron binding capaci panelon 09-08-2023 Iron [Mass/Vol] 40 ug/dL Low 41-186 [facility] Comment on above: Order Comment: Speci men Type: BLOOD SPECIMENOrdering Facility: [facility] Address: [address] [place] [address] Performed By: #### 2 132-9, 2276-4, 4-8, 75349-2 ####[facility] LABCLIA [id number] [place] [id number] [place] Iron binding capacity [Mass/Vol] 184 ug/dL Low 232-386 [facility] Comment on above: Order Comment: Speci men Type: BLOOD SPECIMENOrdering Facility: [facility] Address: [address] [place] [address] Performed By: #### 2 132-9, 2276-4, 2284-8, 79402-8 ####[facility] LABCLIA [id number] [place] [address] [place] Iron/TIBC [Molar ratio] 21.7 % Normal 15.0-57.0 [facility] Comment on above: Order Comment: Speci men Type: BLOOD SPECIMENOrdering Facility: [facility] Address: [address] [place] [address] Performed By: #### 2 132-9, 2276-4, 2284-8, 25782-2 ####[facility] LABCLIA [id number] [place] [address] [place] Vit B12 [facility] 0[facility] Cobalamin (Vitamin B12) [Mass/Vol] 703 pg/mL Normal 232-1245 [facility] Comment on above: Order Comment: Speci men Type: BLOOD SPECIMENOrdering Facility: [facility] Address: [address] [place] [address] Performed By: #### 2 132-9, 2276-4, 4-8, 76614-4 ####[facility] LABCLIA [id number] [place] [address] [place] CNPNon 09-02-2023 CNPN Normal [facility] CBC W Auto Differential pane l (Bld)on 09-01-2023 Basophils (Bld) [#/Vol] 0.06 10*3/uL Normal <0.11 [facility] Comment on above: Order Comment: Speci men Type: BLOOD SPECIMENOrdering Facility: [facility] Address: [address] [place] [address] Performed By: #### 5 7021-8 ####[facility] LABCLIA [id number] [place] [address] Basophils/100 WBC (Bld) 0.8 % Normal [facility] Comment on above: Order Comment: Speci men Type: BLOOD SPECIMENOrdering Facility: [facility] Address: [address] [place] [address] Performed By: #### 5 7021-8 ####[facility] LABCLIA [id number] [place] [address] Differential cell count method Nom (Bld) Auto Normal [facility] Comment on above: Order Comment: Speci men Type: BLOOD SPECIMENOrdering Facility: [facility] Address: [address] [place] [address] Performed By: #### 5 7021-8 ####[facility] LABCLIA [id number] [place] [address] Eosinophils (Bld) [#/Vol] 0.22 10*3/uL Normal <0.46 [facility] Comment on above: Order Comment: Speci men Type: BLOOD SPECIMENOrdering Facility: [facility] Address: [address] [place] [address] Performed By: #### 5 7021-8 ####[facility] LABCLIA [id number] [place] [address] Eosinophils/100 WBC (Bld) 2.8 % Normal [facility] Comment on above: Order Comment: Speci men Type: BLOOD SPECIMENOrdering Facility: [facility] Address: [address] [place] [address] Performed By: #### 5 7021-8 ####[facility] LABCLIA [id number] [place] [address] Erythrocyte distribution width (RBC) [Ratio] 14.7 % Normal 11.5-15.0 [facility] Comment on above: Order Comment: Speci men Type: BLOOD SPECIMENOrdering Facility: [facility] Address: [address] [place] [address] Performed By: #### 5 7021-8 ####[facility] LABCLIA [id number] [place] [address] Hematocrit (Bld) [Volume fraction] 31.8 % Low 36.0-46.0 [facility] Comment on above: Order Comment: Speci men Type: BLOOD SPECIMENOrdering Facility: [facility] Address: [address] [place] [address] Performed By: #### 5 7021-8 ####[facility] LABCLIA [id number] [place] [address] Hemoglobin (Bld) [Mass/Vol] 10.3 g/dL Low 11.5-15.5 [facility] Comment on above: Order Comment: Speci men Type: BLOOD SPECIMENOrdering Facility: [facility] Address: [address] [place] [address] Performed By: #### 5 7021-8 ####[facility] LABCLIA [id number] [place] [address] Immature granulocytes (Bld) [#/Vol] 0.09 10*3/uL Normal <0.10 [facility] Comment on above: Order Comment: Speci men Type: BLOOD SPECIMENOrdering Facility: [facility] Address: [address] [place] [address] Performed By: #### 5 7021-8 ####[facility] LABCLIA [id number] [place] [address] Immature granulocytes/100 WBC (Bld) 1.1 % Normal [facility] Comment on above: Order Comment: Speci men Type: BLOOD SPECIMENOrdering Facility: [facility] Address: [address] [place] [address] Performed By: #### 5 7021-8 ####[facility] LABCLIA [id number] [place] [address] Lymphocytes (Bld) [#/Vol] 0.88 10*3/uL Low 1.00-4.00 [facility] Comment on above: Order Comment: Speci men Type: BLOOD SPECIMENOrdering Facility: [facility] Address: [address] [place] [address] Performed By: #### 5 7021-8 ####[facility] LABCLIA [id number] [place] [address] Lymphocytes/100 WBC (Bld) 11.2 % Normal [facility] Comment on above: Order Comment: Speci men Type: BLOOD SPECIMENOrdering Facility: [facility] Address: [address] [place] [address] Performed By: #### 5 7021-8 ####[facility] LABCLIA [id number] [place] [address] MCH (RBC) [Entitic mass] 33.9 pg Normal 26.0-34.0 [facility] Comment on above: Order Comment: Speci men Type: BLOOD SPECIMENOrdering Facility: [facility] Address: [address] [place] [address] Performed By: #### 5 7021-8 ####[facility] LABCLIA [id number] [place] [address] MCHC (RBC) [Mass/Vol] 32.4 g/dL Normal 30.5-36.0 [facility] Comment on above: Order Comment: Speci men Type: BLOOD SPECIMENOrdering Facility: [facility] Address: [address] [place] [address] Performed By: #### 5 7021-8 ####[facility] LABCLIA [id number] [place] [address] MCV (RBC) [Entitic vol] 104.6 fL High 80.0-100.0 [facility] Comment on above: Order Comment: Speci men Type: BLOOD SPECIMENOrdering Facility: [facility] Address: [address] [place] [address] Performed By: #### 5 7021-8 ####[facility] LABCLIA [id number] [place] [address] Monocytes (Bld) [#/Vol] 0.80 10*3/uL Normal <0.87 [facility] Comment on above: Order Comment: Speci men Type: BLOOD SPECIMENOrdering Facility: [facility] Address: [address] [place] [address] Performed By: #### 5 7021-8 ####[facility] LABCLIA [id number] [place] [address] Monocytes/100 WBC (Bld) 10.2 % Normal [facility] Comment on above: Order Comment: Speci men Type: BLOOD SPECIMENOrdering Facility: [facility] Address: [address] [place] [address] Performed By: #### 5 7021-8 ####[facility] LABCLIA [id number] [place] [address] Neutrophils (Bld) [#/Vol] 5.81 10*3/uL Normal 1.45-7.50 [facility] Comment on above: Order Comment: Speci men Type: BLOOD SPECIMENOrdering Facility: [facility] Address: [address] [place] [address] Performed By: #### 5 7021-8 ####[facility] LABCLIA [id number] [place] [address] Neutrophils/100 WBC (Bld) 73.9 % Normal [facility] Comment on above: Order Comment: Speci men Type: BLOOD SPECIMENOrdering Facility: [facility] Address: [address] [place] [address] Performed By: #### 5 7021-8 ####[facility] LABIA [id number] [place] [address] Nucleated RBC (Bld) [#/Vol] 10*3/uL Normal <0.01 [facility] Comment on above: Order Comment: Speci men Type: BLOOD SPECIMENOrdering Facility: [facility] Address: [address] [place] [address] Performed By: #### 5 7021-8 ####[facility] LABCLIA [id number] [place] [address] Nucleated RBC/100 WBC (Bld) [Ratio] 0.0 /100 WBC Normal [facility] Comment on above: Order Comment: Speci men Type: BLOOD SPECIMENOrdering Facility: [facility] Address: [address] [place] [address] Performed By: #### 5 7021-8 ####[facility] LABCLIA [id number] [place] [address] Platelet mean volume (Bld) [Entitic vol] 10.2 fL Normal 9.0-12.7 [facility] Comment on above: Order Comment: Speci men Type: BLOOD SPECIMENOrdering Facility: [facility] Address: [address] [place] [address] Performed By: #### 5 7021-8 ####[facility] LABCLIA [id number] [place] [address] Platelets (Bld) [#/Vol] 259 10*3/uL Normal 150-400 [facility] Comment on above: Order Comment: Speci men Type: BLOOD SPECIMENOrdering Facility: [facility] Address: [address] [place] [address] Performed By: #### 5 7021-8 ####[facility] LABCLIA [id number] [place] [address] RBC (Bld) [#/Vol] 3.04 10*6/uL Low 3.90-5.20 [facility] Comment on above: Order Comment: Speci men Type: BLOOD SPECIMENOrdering Facility: [facility] Address: [address] [place] [address] Performed By: #### 5 7021-8 ####[facility] LABCLIA [id number] [place] [address] WBC (Bld) [#/Vol] 7.86 10*3/uL Normal 3.70-11.00 [facility] Comment on above: Order Comment: Speci men Type: BLOOD SPECIMENOrdering Facility: [facility] Address: [address] [place], [place] [address] Performed By: #### 5 7021-8 ####[facility] LABCLIA [id number] [place] [address] Fibrin D-dimer DDU (PPP) [Ma ss/Vol]on 08-27-2023 D DIMER <150 Normal <255 [facility] Comment on above: Result Comment: Results <255 ng/mL DDU: The presence of a VTE can safely be excluded with a negative D-Dimer result and Wells score. A negative result doesn't exclude the possibility of DIC. The test be repeated along with other diagnostic tests if the patient's symptoms persist or worsen. [email or web address] Performed By: #### 4 8066-5 #### [facility] ([id number]) [address] [place] [address], [place] [address] CBC W Auto Differential pane l (Bld)on 08-25-2023 Basophils (Bld) [#/Vol] 0.04 10*3/uL Normal <0.11 [facility] Comment on above: Order Comment: Speci men Type: BLOOD SPECIMENOrdering Facility: [facility] Address: [address] [place] [address] Performed By: #### 5 7021-8 ####[facility] LABCLIA [id number] [place] [address] Basophils/100 WBC (Bld) 0.5 % Normal [facility] Comment on above: Order Comment: Speci men Type: BLOOD SPECIMENOrdering Facility: [facility] Address: [address] [place] [address] Performed By: #### 5 7021-8 ####[facility] LABCLIA [id number] [place] [address] Differential cell count method Nom (Bld) Auto Normal [facility] Comment on above: Order Comment: Speci men Type: BLOOD SPECIMENOrdering Facility: [facility] Address: [address] [place] [address] Performed By: #### 5 7021-8 ####[facility] LABCLIA [id number] [place] [address] Eosinophils (Bld) [#/Vol] 0.22 10*3/uL Normal <0.46 [facility] Comment on above: Order Comment: Speci men Type: BLOOD SPECIMENOrdering Facility: [facility] Address: [address] [place] [address] Performed By: #### 5 7021-8 ####[facility] LABCLIA [id number] [place] [address] Eosinophils/100 WBC (Bld) 2.6 % Normal [facility] Comment on above: Order Comment: Speci men Type: BLOOD SPECIMENOrdering Facility: [facility] Address: [address] [place] [address] Performed By: #### 5 7021-8 ####[facility] LABCLIA [id number] [place] [address] Erythrocyte distribution width (RBC) [Ratio] 16.2 % High 11.5-15.0 [facility] Comment on above: Order Comment: Speci men Type: BLOOD SPECIMENOrdering Facility: [facility] Address: [address] [place] [address] Performed By: #### 5 7021-8 ####[facility] LABCLIA [id number] [place] [address] Hematocrit (Bld) [Volume fraction] 34.7 % Low 36.0-46.0 [facility] Comment on above: Order Comment: Speci men Type: BLOOD SPECIMENOrdering Facility: [facility] Address: [address] [place] [address] Performed By: #### 5 7021-8 ####[facility] LABCLIA [id number] [place] [address] Hemoglobin (Bld) [Mass/Vol] 11.3 g/dL Low 11.5-15.5 [facility] Comment on above: Order Comment: Speci men Type: BLOOD SPECIMENOrdering Facility: [facility] Address: [address] [place] [address] Performed By: #### 5 7021-8 ####[facility] LABCLIA [id number] [place] [address] Immature granulocytes (Bld) [#/Vol] 0.07 10*3/uL Normal <0.10 [facility] Comment on above: Order Comment: Speci men Type: BLOOD SPECIMENOrdering Facility: [facility] Address: [address] [place] [address] Performed By: #### 5 7021-8 ####[facility] LABCLIA [id number] [place] [address] Immature granulocytes/100 WBC (Bld) 0.8 % Normal [facility] Comment on above: Order Comment: Speci men Type: BLOOD SPECIMENOrdering Facility: [facility] Address: [address] [place] [address] Performed By: #### 5 7021-8 ####[facility] LABCLIA [id number] [place] [address] Lymphocytes (Bld) [#/Vol] 0.91 10*3/uL Low 1.00-4.00 [facility] Comment on above: Order Comment: Speci men Type: BLOOD SPECIMENOrdering Facility: [facility] Address: [address] [place] [address] Performed By: #### 5 7021-8 ####[facility] LABCLIA [id number] [place] [address] Lymphocytes/100 WBC (Bld) 10.7 % Normal [facility] Comment on above: Order Comment: Speci men Type: BLOOD SPECIMENOrdering Facility: [facility] Address: [address] [place] [address] Performed By: #### 5 7021-8 ####[facility] LABCLIA [id number] [place] [address] MCH (RBC) [Entitic mass] 34.7 pg High 26.0-34.0 [facility] Comment on above: Order Comment: Speci men Type: BLOOD SPECIMENOrdering Facility: [facility] Address: [address] [place] [address] Performed By: #### 5 7021-8 ####[facility] LABIA [id number] [place] [address] MCHC (RBC) [Mass/Vol] 32.6 g/dL Normal 30.5-36.0 [facility] Comment on above: Order Comment: Speci men Type: BLOOD SPECIMENOrdering Facility: [facility] Address: [address] [place] [address] Performed By: #### 5 7021-8 ####[facility] LABIA [id number] [place] [address] MCV (RBC) [Entitic vol] 106.4 fL High 80.0-100.0 [facility] Comment on above: Order Comment: Speci men Type: BLOOD SPECIMENOrdering Facility: [facility] Address: [address] [place] [address] Performed By: #### 5 7021-8 ####[facility] LABIA [id number] [place] [address] Monocytes (Bld) [#/Vol] 0.74 10*3/uL Normal <0.87 [facility] Comment on above: Order Comment: Speci men Type: BLOOD SPECIMENOrdering Facility: [facility] Address: [address] [place] [address] Performed By: #### 5 7021-8 ####[facility] LABCLIA [id number] [place] [address] Monocytes/100 WBC (Bld) 8.7 % Normal [facility] Comment on above: Order Comment: Speci men Type: BLOOD SPECIMENOrdering Facility: [facility] Address: [address] [place] [address] Performed By: #### 5 7021-8 ####[facility] LABCLIA [id number] [place] [address] Neutrophils (Bld) [#/Vol] 6.52 10*3/uL Normal 1.45-7.50 [facility] Comment on above: Order Comment: Speci men Type: BLOOD SPECIMENOrdering Facility: [facility] Address: [address] [place] [address] Performed By: #### 5 7021-8 ####[facility] LABCLIA [id number] [place] [address] Neutrophils/100 WBC (Bld) 76.7 % Normal [facility] Comment on above: Order Comment: Speci men Type: BLOOD SPECIMENOrdering Facility: [facility] Address: [address] [place] [address] Performed By: #### 5 7021-8 ####[facility] LABCLIA [id number] [place] [address] Nucleated RBC (Bld) [#/Vol] 10*3/uL Normal <0.01 [facility] Comment on above: Order Comment: Speci men Type: BLOOD SPECIMENOrdering Facility: [facility] Address: [address] [place] [address] Performed By: #### 5 7021-8 ####[facility] LABCLIA [id number] [place] [address] Nucleated RBC/100 WBC (Bld) [Ratio] 0.0 /100 WBC Normal [facility] Comment on above: Order Comment: Speci men Type: BLOOD SPECIMENOrdering Facility: [facility] Address: [address] [place] [address] Performed By: #### 5 7021-8 ####[facility] LABCLIA [id number] [place] [address] Platelet mean volume (Bld) [Entitic vol] 9.4 fL Normal 9.0-12.7 [facility] Comment on above: Order Comment: Speci men Type: BLOOD SPECIMENOrdering Facility: [facility] Address: [address] [place] [address] Performed By: #### 5 7021-8 ####[facility] LABCLIA [id number] [place] [address] Platelets (Bld) [#/Vol] 282 10*3/uL Normal 150-400 [facility] Comment on above: Order Comment: Speci men Type: BLOOD SPECIMENOrdering Facility: [facility] Address: [address] [place] [address] Performed By: #### 5 7021-8 ####[facility] LABCLIA [id number] [place] [address] RBC (Bld) [#/Vol] 3.26 10*6/uL Low 3.90-5.20 [facility] Comment on above: Order Comment: Speci men Type: BLOOD SPECIMENOrdering Facility: [facility] Address: [address] [place] [address] Performed By: #### 5 7021-8 ####[facility] LABCLIA [id number] [place] [address] WBC (Bld) [#/Vol] 8.50 10*3/uL Normal 3.70-11.00 [facility] Comment on above: Order Comment: Speci men Type: BLOOD SPECIMENOrdering Facility: [facility] Address: [address] [place] [address] Performed By: #### 5 7021-8 ####[facility] LABCLIA [id number] [place] [address] Comprehensive metabolic 2000 panelon 08-25-2023 Albumin [Mass/Vol] 4.3 g/dL Normal 3.9-4.9 [facility] Comment on above: Order Comment: Speci men Type: BLOOD SPECIMENOrdering Facility: [facility] Address: [address] [place] [address] Performed By: #### 2 4323-8 ####[facility] LABCLIA [id number] [place] [address] ALP [Catalytic activity/Vol] 102 U/L Normal 34-123 [facility] Comment on above: Order Comment: Speci men Type: BLOOD SPECIMENOrdering Facility: [facility] Address: [address] [place] [address] Performed By: #### 2 4323-8 ####[facility] LABCLIA [id number] [place] [address] ALT [Catalytic activity/Vol] 11 U/L Normal 7-38 [facility] Comment on above: Order Comment: Speci men Type: BLOOD SPECIMENOrdering Facility: [facility] Address: [address] [place] [address] Performed By: #### 2 4323-8 ####[facility] LABCLIA [id number] [place] [address] Anion gap [Moles/Vol] 14 mmol/L Normal 8-15 [facility] Comment on above: Order Comment: Speci men Type: BLOOD SPECIMENOrdering Facility: [facility] Address: [address] [place] [address] Performed By: #### 2 4323-8 ####[facility] LABIA [id number] [place] [address] AST [Catalytic activity/Vol] 17 U/L Normal 13-35 [facility] Comment on above: Order Comment: Speci men Type: BLOOD SPECIMENOrdering Facility: [facility] Address: [address] [place] [address] Performed By: #### 2 4323-8 ####[facility] LABCLIA [id number] [place] [address] Bilirubin [Mass/Vol] 0.5 mg/dL Normal 0.2-1.3 [facility] Comment on above: Order Comment: Speci men Type: BLOOD SPECIMENOrdering Facility: [facility] Address: [address] [place] [address] Performed By: #### 2 4323-8 ####[facility] LABCLIA [id number] [place] [address] Calcium [Mass/Vol] 10.4 mg/dL High 8.5-10.2 [facility] Comment on above: Order Comment: Speci men Type: BLOOD SPECIMENOrdering Facility: [facility] Address: [address] [place] [address] Performed By: #### 2 4323-8 ####[facility] LABCLIA [id number] [place] [address] Chloride [Moles/Vol] 96 mmol/L Low 98-107 [facility] Comment on above: Order Comment: Speci men Type: BLOOD SPECIMENOrdering Facility: [facility] Address: [address] [place] [address] Performed By: #### 2 4323-8 ####[facility] LABCLIA [id number] [place] [address] CO2 [Moles/Vol] 29 mmol/L Normal 22-30 [facility] Comment on above: Order Comment: Speci men Type: BLOOD SPECIMENOrdering Facility: [facility] Address: [address] [place] [address] Performed By: #### 2 4323-8 ####[facility] LABCLIA [id number] [place] [address] Creatinine [Mass/Vol] 19.32 mg/dL High 0.58-0.96 [facility] Comment on above: Order Comment: Isaiah mitchell Type: BLOOD SPECIMENOrdering Facility: [facility] Address: [address] [id number] Performed By: #### 2 4323-8 ####[facility] LABCLIA [id number] [place] [address] Creatinine and Glomerular filtration rate.predicted panel (S/P/Bld) 2 mL/min/1.73m??? Low >=60 [facility] Comment on above: Order Comment: Specmiguel angel men Type: BLOOD SPECIMENOrdering Facility: [facility] Address: [address] [place] [address] Result Comment: Rylee mated Glomerular Filtration Rate (eGFR) is calculated using the 2020 CKD-EPI creatinine equation. This equation utilizes serum creatinine, sex, and age as parameters. The creatinine assay has traceable calibration to isotope dilution-mass spectrometry. Refer to KDIGO guidelines for clinical interpretation. In patients with unstable renal function, e.g. those with acute kidney injury, the eGFR may not accurately reflect actual GFR. Performed By: #### 2 4323-8 ####[facility] LABCLIA [id number] [place] [address] Glucose [Mass/Vol] 103 mg/dL High 74-99 [facility] Comment on above: Order Comment: Isaiah mitchell Type: BLOOD SPECIMENOrdering Facility: [facility] Address: [address] [place] [address] Result Comment: The [place] [employer] (ADA) provides guidance for cutoff values for fasting glucose and random glucose. The ADA defines fasting as no caloric intake for at least 8 hours. Fasting plasma glucose results between 100 to 125 mg/dL indicate increased risk for diabetes (prediabetes).Fasting plasma glucose results greater than or equal to 126 mg/dL meet the criteria for diagnosis of diabetes. In the absence of unequivocal hyperglycemia, results should be confirmed by repeat testing. In a patient with classic symptoms of hyperglycemia or hyperglycemic crisis, random plasma glucose results greater than or equal to 200 mg/dL meet the criteria for diagnosis of diabetes.Reference: Standards of Medical Care in Diabetes 2016, [place] [employer]. Diabetes Care. 2016.39(Suppl 1). Performed By: #### 2 4323-8 ####[facility] LABCLIA [id number] [place] [address] Potassium [Moles/Vol] 4.5 mmol/L Normal 3.7-5.1 [facility] Comment on above: Order Comment: Speci men Type: BLOOD SPECIMENOrdering Facility: [facility] Address: [address] [place] [address] Performed By: #### 2 4323-8 ####[facility] LABCLIA [id number] [place] [address] Protein [Mass/Vol] 6.6 g/dL Normal 6.3-8.0 [facility] Comment on above: Order Comment: Speci men Type: BLOOD SPECIMENOrdering Facility: [facility] Address: [address] [place] [address] Performed By: #### 2 4323-8 ####[facility] LABCLIA [id number] [place] [address] Sodium [Moles/Vol] 139 mmol/L Normal 136-144 [facility] Comment on above: Order Comment: Speci men Type: BLOOD SPECIMENOrdering Facility: [facility] Address: [address] [place] [address] Performed By: #### 2 4323-8 ####[facility] LABCLIA [id number] [place] [address] Urea nitrogen [Mass/Vol] 62 mg/dL High 7-21 [facility] Comment on above: Order Comment: Speci men Type: BLOOD SPECIMENOrdering Facility: [facility] Address: [address] [place] [address] Performed By: #### 2 4323-8 ####[facility] LABCLIA [id number] [place] [address] CBC W Auto Differential pane l (Bld)on 08-18-2023 Basophils (Bld) [#/Vol] 0.04 10*3/uL Normal <0.11 [facility] Comment on above: Order Comment: Speci men Type: BLOOD SPECIMENOrdering Facility: [facility] Address: [address] [place] [address] Performed By: #### 5 7021-8 ####[facility] LABCLIA [id number] [place] [address] Basophils/100 WBC (Bld) 0.4 % Normal [facility] Comment on above: Order Comment: Speci men Type: BLOOD SPECIMENOrdering Facility: [facility] Address: [address] [place] [address] Performed By: #### 5 7021-8 ####[facility] LABCLIA [id number] [place] [address] Differential cell count method Nom (Bld) Auto Normal [facility] Comment on above: Order Comment: Speci men Type: BLOOD SPECIMENOrdering Facility: [facility] Address: [address] [place] [address] Performed By: #### 5 7021-8 ####[facility] LABCLIA [id number] [place] [address] Eosinophils (Bld) [#/Vol] 0.29 10*3/uL Normal <0.46 [facility] Comment on above: Order Comment: Speci men Type: BLOOD SPECIMENOrdering Facility: [facility] Address: [address] [place] [address] Performed By: #### 5 7021-8 ####[facility] LABCLIA [id number] [place] [address] Eosinophils/100 WBC (Bld) 2.7 % Normal [facility] Comment on above: Order Comment: Speci men Type: BLOOD SPECIMENOrdering Facility: [facility] Address: [address] [place] [address] Performed By: #### 5 7021-8 ####[facility] LABCLIA [id number] [place] [address] Erythrocyte distribution width (RBC) [Ratio] 16.4 % High 11.5-15.0 [facility] Comment on above: Order Comment: Speci men Type: BLOOD SPECIMENOrdering Facility: [facility] Address: [address] [place] [address] Performed By: #### 5 7021-8 ####[facility] LABCLIA [id number] [place] [address] Hematocrit (Bld) [Volume fraction] 31.6 % Low 36.0-46.0 [facility] Comment on above: Order Comment: Speci men Type: BLOOD SPECIMENOrdering Facility: [facility] Address: [address] [place] [address] Performed By: #### 5 7021-8 ####[facility] LABCLIA [id number] [place] [address] Hemoglobin (Bld) [Mass/Vol] 10.0 g/dL Low 11.5-15.5 [facility] Comment on above: Order Comment: Speci men Type: BLOOD SPECIMENOrdering Facility: [facility] Address: [address] [place] [address] Performed By: #### 5 7021-8 ####[facility] LABCLIA [id number] [place] [address] Immature granulocytes (Bld) [#/Vol] 0.10 10*3/uL High <0.10 [facility] Comment on above: Order Comment: Speci men Type: BLOOD SPECIMENOrdering Facility: [facility] Address: [address] [place] [address] Performed By: #### 5 7021-8 ####[facility] LABIA [id number] [place] [address] Immature granulocytes/100 WBC (Bld) 0.9 % Normal [facility] Comment on above: Order Comment: Speci men Type: BLOOD SPECIMENOrdering Facility: [facility] Address: [address] [place] [address] Performed By: #### 5 7021-8 ####[facility] LABCLIA [id number] [place] [address] Lymphocytes (Bld) [#/Vol] 0.92 10*3/uL Low 1.00-4.00 [facility] Comment on above: Order Comment: Speci men Type: BLOOD SPECIMENOrdering Facility: [facility] Address: [address] [place] [address] Performed By: #### 5 7021-8 ####[facility] LABCLIA [id number] [place] [address] Lymphocytes/100 WBC (Bld) 8.7 % Normal [facility] Comment on above: Order Comment: Speci men Type: BLOOD SPECIMENOrdering Facility: [facility] Address: [address] [place] [address] Performed By: #### 5 7021-8 ####[facility] LABCLIA [id number] [place] [address] MCH (RBC) [Entitic mass] 34.1 pg High 26.0-34.0 [facility] Comment on above: Order Comment: Speci men Type: BLOOD SPECIMENOrdering Facility: [facility] Address: [address] [place] [address] Performed By: #### 5 7021-8 ####[facility] LABCLIA [id number] [place] [address] MCHC (RBC) [Mass/Vol] 31.6 g/dL Normal 30.5-36.0 [facility] Comment on above: Order Comment: Speci men Type: BLOOD SPECIMENOrdering Facility: [facility] Address: [address] [place] [address] Performed By: #### 5 7021-8 ####[facility] LABCLIA [id number] [place] [address] MCV (RBC) [Entitic vol] 107.8 fL High 80.0-100.0 [facility] Comment on above: Order Comment: Speci men Type: BLOOD SPECIMENOrdering Facility: [facility] Address: [address] [place] [address] Performed By: #### 5 7021-8 ####[facility] LABCLIA [id number] [place] [address] Monocytes (Bld) [#/Vol] 0.83 10*3/uL Normal <0.87 [facility] Comment on above: Order Comment: Speci men Type: BLOOD SPECIMENOrdering Facility: [facility] Address: [address] [place] [address] Performed By: #### 5 7021-8 ####[facility] LABCLIA [id number] [place] [address] Monocytes/100 WBC (Bld) 7.9 % Normal [facility] Comment on above: Order Comment: Speci men Type: BLOOD SPECIMENOrdering Facility: [facility] Address: [address] [place] [address] Performed By: #### 5 7021-8 ####[facility] LABCLIA [id number] [place] [address] Neutrophils (Bld) [#/Vol] 8.37 10*3/uL High 1.45-7.50 [facility] Comment on above: Order Comment: Speci men Type: BLOOD SPECIMENOrdering Facility: [facility] Address: [address] [place] [address] Performed By: #### 5 7021-8 ####[facility] LABCLIA [id number] [place] [address] Neutrophils/100 WBC (Bld) 79.4 % Normal [facility] Comment on above: Order Comment: Speci men Type: BLOOD SPECIMENOrdering Facility: [facility] Address: [address] [place] [address] Performed By: #### 5 7021-8 ####[facility] LABCLIA [id number] [place] [address] Nucleated RBC (Bld) [#/Vol] 10*3/uL Normal <0.01 [facility] Comment on above: Order Comment: Speci men Type: BLOOD SPECIMENOrdering Facility: [facility] Address: [address] [place] [address] Performed By: #### 5 7021-8 ####[facility] LABCLIA [id number] [place] [address] Nucleated RBC/100 WBC (Bld) [Ratio] 0.0 /100 WBC Normal [facility] Comment on above: Order Comment: Speci men Type: BLOOD SPECIMENOrdering Facility: [facility] Address: [address] [place] [address] Performed By: #### 5 7021-8 ####[facility] LABCLIA [id number] [place] [address] Platelet mean volume (Bld) [Entitic vol] 9.1 fL Normal 9.0-12.7 [facility] Comment on above: Order Comment: Speci men Type: BLOOD SPECIMENOrdering Facility: [facility] Address: [address] [place] [address] Performed By: #### 5 7021-8 ####[facility] LABCLIA [id number] [place] [address] Platelets (Bld) [#/Vol] 308 10*3/uL Normal 150-400 [facility] Comment on above: Order Comment: Speci men Type: BLOOD SPECIMENOrdering Facility: [facility] Address: [address] [place] [address] Performed By: #### 5 7021-8 ####[facility] LABCLIA [id number] [place] [address] RBC (Bld) [#/Vol] 2.93 10*6/uL Low 3.90-5.20 [facility] Comment on above: Order Comment: Speci men Type: BLOOD SPECIMENOrdering Facility: [facility] Address: [address] [place] [address] Performed By: #### 5 7021-8 ####[facility] LABCLIA [id number] [place] [address] WBC (Bld) [#/Vol] 10.55 10*3/uL Normal 3.70-11.00 [facility] Comment on above: Order Comment: Speci men Type: BLOOD SPECIMENOrdering Facility: [facility] Address: [address] [place] [address] Performed By: #### 5 7021-8 ####[facility] LABCLIA [id number] [place] [address] CNOVSPon 08-18-2023 CNOVSP Normal [facility] CBC W Auto Differential pane l (Bld)on 08-11-2023 Basophils (Bld) [#/Vol] 0.03 10*3/uL Normal <0.11 [facility] Comment on above: Order Comment: Speci men Type: BLOOD SPECIMENOrdering Facility: [facility] Address: [address] [place] [address] Performed By: #### 5 7021-8 ####[facility] LABCLIA [id number] [place] [address] Basophils/100 WBC (Bld) 0.3 % Normal [facility] Comment on above: Order Comment: Speci men Type: BLOOD SPECIMENOrdering Facility: [facility] Address: [address] [place] [address] Performed By: #### 5 7021-8 ####[facility] LABCLIA [id number] [place] [address] Differential cell count method Nom (Bld) Auto Normal [facility] Comment on above: Order Comment: Speci men Type: BLOOD SPECIMENOrdering Facility: [facility] Address: [address] [place] [address] Performed By: #### 5 7021-8 ####[facility] LABCLIA [id number] [place] [address] Eosinophils (Bld) [#/Vol] 0.35 10*3/uL Normal <0.46 [facility] Comment on above: Order Comment: Speci men Type: BLOOD SPECIMENOrdering Facility: [facility] Address: [address] [place] [address] Performed By: #### 5 7021-8 ####[facility] LABCLIA [id number] [place] [address] Eosinophils/100 WBC (Bld) 3.7 % Normal [facility] Comment on above: Order Comment: Speci men Type: BLOOD SPECIMENOrdering Facility: [facility] Address: [address] [place] [address] Performed By: #### 5 7021-8 ####[facility] LABCLIA [id number] [place] [address] Erythrocyte distribution width (RBC) [Ratio] 15.3 % High 11.5-15.0 [facility] Comment on above: Order Comment: Speci men Type: BLOOD SPECIMENOrdering Facility: [facility] Address: [address] [place] [address] Performed By: #### 5 7021-8 ####[facility] LABCLIA [id number] [place] [address] Hematocrit (Bld) [Volume fraction] 29.5 % Low 36.0-46.0 [facility] Comment on above: Order Comment: Speci men Type: BLOOD SPECIMENOrdering Facility: [facility] Address: [address] [place] [address] Performed By: #### 5 7021-8 ####[facility] LABCLIA [id number] [place] [address] Hemoglobin (Bld) [Mass/Vol] 9.7 g/dL Low 11.5-15.5 [facility] Comment on above: Order Comment: Speci men Type: BLOOD SPECIMENOrdering Facility: [facility] Address: [address] [place] [address] Performed By: #### 5 7021-8 ####[facility] LABCLIA [id number] [place] [address] Immature granulocytes (Bld) [#/Vol] 0.07 10*3/uL Normal <0.10 [facility] Comment on above: Order Comment: Speci men Type: BLOOD SPECIMENOrdering Facility: [facility] Address: [address] [place] [address] Performed By: #### 5 7021-8 ####[facility] LABCLIA [id number] [place] [address] Immature granulocytes/100 WBC (Bld) 0.7 % Normal [facility] Comment on above: Order Comment: Speci men Type: BLOOD SPECIMENOrdering Facility: [facility] Address: [address] [place] [address] Performed By: #### 5 7021-8 ####[facility] LABCLIA [id number] [place] [address] Lymphocytes (Bld) [#/Vol] 1.10 10*3/uL Normal 1.00-4.00 [facility] Comment on above: Order Comment: Speci men Type: BLOOD SPECIMENOrdering Facility: [facility] Address: [address] [place] [address] Performed By: #### 5 7021-8 ####[facility] LABCLIA [id number] [place] [address] Lymphocytes/100 WBC (Bld) 11.6 % Normal [facility] Comment on above: Order Comment: Speci men Type: BLOOD SPECIMENOrdering Facility: [facility] Address: [address] [place] [address] Performed By: #### 5 7021-8 ####[facility] LABCLIA [id number] [place] [address] MCH (RBC) [Entitic mass] 34.3 pg High 26.0-34.0 [facility] Comment on above: Order Comment: Speci men Type: BLOOD SPECIMENOrdering Facility: [facility] Address: [address] [place] [address] Performed By: #### 5 7021-8 ####[facility] LABCLIA [id number] [place] [address] MCHC (RBC) [Mass/Vol] 32.9 g/dL Normal 30.5-36.0 [facility] [facility] Comment on above: Order Comment: Speci men Type: BLOOD SPECIMENOrdering Facility: [facility] Address: [address] [place] [address] Performed By: #### 5 7021-8 ####[facility] LABIA [id number] [place] [address] MCV (RBC) [Entitic vol] 104.2 fL High 80.0-100.0 [facility] Comment on above: Order Comment: Speci men Type: BLOOD SPECIMENOrdering Facility: [facility] Address: [address] [place] [address] Performed By: #### 5 7021-8 ####[facility] LABIA [id number] [place] [address] Monocytes (Bld) [#/Vol] 0.59 10*3/uL Normal <0.87 [facility] Comment on above: Order Comment: Speci men Type: BLOOD SPECIMENOrdering Facility: [facility] Address: [address] [place] [address] Performed By: #### 5 7021-8 ####[facility] LABIA [id number] [place] [address] Monocytes/100 WBC (Bld) 6.2 % Normal [facility] Comment on above: Order Comment: Speci men Type: BLOOD SPECIMENOrdering Facility: [facility] Address: [address] [place] [address] Performed By: #### 5 7021-8 ####[facility] LABCLIA [id number] [place] [address] Neutrophils (Bld) [#/Vol] 7.32 10*3/uL Normal 1.45-7.50 [facility] Comment on above: Order Comment: Speci men Type: BLOOD SPECIMENOrdering Facility: [facility] Address: [address] [place] [address] Performed By: #### 5 7021-8 ####[facility] LABCLIA [id number] [place] [address] Neutrophils/100 WBC (Bld) 77.5 % Normal [facility] Comment on above: Order Comment: Speci men Type: BLOOD SPECIMENOrdering Facility: [facility] Address: [address] [place] [address] Performed By: #### 5 7021-8 ####[facility] LABCLIA [id number] [place] [address] Nucleated RBC (Bld) [#/Vol] 10*3/uL Normal <0.01 [facility] Comment on above: Order Comment: Speci men Type: BLOOD SPECIMENOrdering Facility: [facility] Address: [address] [place] [address] Performed By: #### 5 7021-8 ####[facility] LABCLIA [id number] [place] [address] Nucleated RBC/100 WBC (Bld) [Ratio] 0.0 /100 WBC Normal [facility] Comment on above: Order Comment: Speci men Type: BLOOD SPECIMENOrdering Facility: [facility] Address: [address] [place] [address] Performed By: #### 5 7021-8 ####[facility] LABCLIA [id number] [place] [address] Platelet mean volume (Bld) [Entitic vol] 8.7 fL Low 9.0-12.7 [facility] Comment on above: Order Comment: Speci men Type: BLOOD SPECIMENOrdering Facility: [facility] Address: [address] [place] [address] Performed By: #### 5 7021-8 ####[facility] LABCLIA [id number] [place] [address] Platelets (Bld) [#/Vol] 361 10*3/uL Normal 150-400 [facility] Comment on above: Order Comment: Speci men Type: BLOOD SPECIMENOrdering Facility: [facility] Address: [address] [place] [address] Performed By: #### 5 7021-8 ####[facility] LABIA [id number] [place] [address] RBC (Bld) [#/Vol] 2.83 10*6/uL Low 3.90-5.20 [facility] Comment on above: Order Comment: Speci men Type: BLOOD SPECIMENOrdering Facility: [facility] Address: [address] [place] [address] Performed By: #### 5 7021-8 ####[facility] LABIA [id number] [place] [address] WBC (Bld) [#/Vol] 9.46 10*3/uL Normal 3.70-11.00 [facility] Comment on above: Order Comment: Speci men Type: BLOOD SPECIMENOrdering Facility: [facility] Address: [address] [place] [address] Performed By: #### 5 7021-8 ####[facility] LABIA [id number] [place] [address] Comprehensive metabolic 2000 panelon 08-11-2023 Albumin [Mass/Vol] 4.1 g/dL Normal 3.9-4.9 [facility] Comment on above: Order Comment: Speci men Type: BLOOD SPECIMENOrdering Facility: [facility] Address: [address] [place] [address] Performed By: #### 2 4323-8 ####[facility] LABCLIA [id number] [place] [address] ALP [Catalytic activity/Vol] 93 U/L Normal 34-123 [facility] Comment on above: Order Comment: Speci men Type: BLOOD SPECIMENOrdering Facility: [facility] Address: [address] [place] [address] Performed By: #### 2 4323-8 ####[facility] LABCLIA [id number] [place] [address] ALT [Catalytic activity/Vol] 12 U/L Normal 7-38 [facility] Comment on above: Order Comment: Speci men Type: BLOOD SPECIMENOrdering Facility: [facility] Address: [address] [place] [address] Performed By: #### 2 4323-8 ####[facility] LABCLIA [id number] [place] [address] Anion gap [Moles/Vol] 14 mmol/L Normal 9-18 [facility] Comment on above: Order Comment: Speci men Type: BLOOD SPECIMENOrdering Facility: [facility] Address: [address] [place] [address] Performed By: #### 2 4323-8 ####[facility] LABCLIA [id number] [place] [address] AST [Catalytic activity/Vol] 15 U/L Normal 13-35 [facility] Comment on above: Order Comment: Speci men Type: BLOOD SPECIMENOrdering Facility: [facility] Address: [address] [place] [address] Performed By: #### 2 4323-8 ####[facility] LABCLIA [id number] [place] [address] Bilirubin [Mass/Vol] 0.4 mg/dL Normal 0.2-1.3 [facility] Comment on above: Order Comment: Speci men Type: BLOOD SPECIMENOrdering Facility: [facility] Address: [address] [place] [address] Performed By: #### 2 4323-8 ####[facility] LABCLIA [id number] [place] [address] Calcium [Mass/Vol] 10.4 mg/dL High 8.5-10.2 [facility] Comment on above: Order Comment: Speci men Type: BLOOD SPECIMENOrdering Facility: [facility] Address: [address] [place] [address] Performed By: #### 2 4323-8 ####[facility] LABCLIA [id number] [place] [address] Chloride [Moles/Vol] 97 mmol/L Normal 97-105 [facility] Comment on above: Order Comment: Speci men Type: BLOOD SPECIMENOrdering Facility: [facility] Address: [address] [place] [address] Performed By: #### 2 4323-8 ####[facility] LABCLIA [id number] [place] [address] CO2 [Moles/Vol] 29 mmol/L Normal 22-30 [facility] Comment on above: Order Comment: Speci men Type: BLOOD SPECIMENOrdering Facility: [facility] Address: [address] [place] [address] Performed By: #### 2 4323-8 ####[facility] LABCLIA [id number] [place] [address] Creatinine [Mass/Vol] 16.13 mg/dL High 0.58-0.96 [facility] Comment on above: Order Comment: Speci men Type: BLOOD SPECIMENOrdering Facility: [facility] Address: [address] [place] [address] Performed By: #### 2 4323-8 ####[facility] LABCLIA [id number] [place] [address] Creatinine and Glomerular filtration rate.predicted panel (S/P/Bld) 3 mL/min/1.73m??? Low >=60 [facility] Comment on above: Order Comment: Isaiah mitchell Type: BLOOD SPECIMENOrdering Facility: [facility] Address: [address] [place] [address] Result Comment: Rylee mated Glomerular Filtration Rate (eGFR) is calculated using the 2020 CKD-EPI creatinine equation. This equation utilizes serum creatinine, sex, and age as parameters. The creatinine assay has traceable calibration to isotope dilution-mass spectrometry. Refer to KDIGO guidelines for clinical interpretation. In patients with unstable renal function, e.g. those with acute kidney injury, the eGFR may not accurately reflect actual GFR. Performed By: #### 2 4323-8 ####[facility] LABCLIA [id number] [place] [address] Glucose [Mass/Vol] 113 mg/dL High 74-99 [facility] Comment on above: Order Comment: Isaiah mitchell Type: BLOOD SPECIMENOrdering Facility: [facility] Address: [address] [place] [address] Result Comment: The [place] [employer] (ADA) provides guidance for cutoff values for fasting glucose and random glucose. The ADA defines fasting as no caloric intake for at least 8 hours. Fasting plasma glucose results between 100 to 125 mg/dL indicate increased risk for diabetes (prediabetes).Fasting plasma glucose results greater than or equal to 126 mg/dL meet the criteria for diagnosis of diabetes. In the absence of unequivocal hyperglycemia, results should be confirmed by repeat testing. In a patient with classic symptoms of hyperglycemia or hyperglycemic crisis, random plasma glucose results greater than or equal to 200 mg/dL meet the criteria for diagnosis of diabetes.Reference: Standards of Medical Care in Diabetes 2016, [place] [employer]. Diabetes Care. 2016.39(Suppl 1). Performed By: #### 2 4323-8 ####[facility] LABCLIA [id number] [place] [address] Potassium [Moles/Vol] 4.1 mmol/L Normal 3.7-5.1 [facility] Comment on above: Order Comment: Speci men Type: BLOOD SPECIMENOrdering Facility: [facility] Address: [address] [place] [address] Performed By: #### 2 4323-8 ####[facility] LABCLIA [id number] [place] [address] Protein [Mass/Vol] 6.2 g/dL Low 6.3-8.0 [facility] Comment on above: Order Comment: Speci men Type: BLOOD SPECIMENOrdering Facility: [facility] Address: [address] [place] [address] Performed By: #### 2 4323-8 ####[facility] LABCLIA [id number] [place] [address] Sodium [Moles/Vol] 140 mmol/L Normal 136-144 [facility] Comment on above: Order Comment: Speci men Type: BLOOD SPECIMENOrdering Facility: [facility] Address: [address] [place] [address] Performed By: #### 2 4323-8 ####[facility] LABCLIA [id number] [place] [address] Urea nitrogen [Mass/Vol] 53 mg/dL High 7-21 [facility] Comment on above: Order Comment: Speci men Type: BLOOD SPECIMENOrdering Facility: [facility] Address: [address] [place] [address] Performed By: #### 2 4323-8 ####[facility] LABCLIA [id number] [place] [address] CBC W Auto Differential pane l (Bld)on 08-04-2023 Basophils (Bld) [#/Vol] 10*3/uL Normal <0.11 [facility] Comment on above: Order Comment: Speci men Type: BLOOD SPECIMENOrdering Facility: [facility] Address: [address] [place] [address] Performed By: #### 5 7021-8 ####[facility] LABCLIA [id number] [place] [address] Basophils/100 WBC (Bld) 0.2 % Normal [facility] Comment on above: Order Comment: Speci men Type: BLOOD SPECIMENOrdering Facility: [facility] Address: [address] [place] [address] Performed By: #### 5 7021-8 ####[facility] LABCLIA [id number] [place] [address] Differential cell count method Nom (Bld) Auto Normal [facility] Comment on above: Order Comment: Speci men Type: BLOOD SPECIMENOrdering Facility: [facility] Address: [address] [place] [address] Performed By: #### 5 7021-8 ####[facility] LABCLIA [id number] [place] [address] Eosinophils (Bld) [#/Vol] 0.35 10*3/uL Normal <0.46 [facility] Comment on above: Order Comment: Speci men Type: BLOOD SPECIMENOrdering Facility: [facility] Address: [address] [place] [address] Performed By: #### 5 7021-8 ####[facility] LABCLIA [id number] [place] [address] Eosinophils/100 WBC (Bld) 4.2 % Normal [facility] Comment on above: Order Comment: Speci men Type: BLOOD SPECIMENOrdering Facility: [facility] Address: [address] [place] [address] Performed By: #### 5 7021-8 ####[facility] LABCLIA [id number] [place] [address] Erythrocyte distribution width (RBC) [Ratio] 14.4 % Normal 11.5-15.0 [facility] Comment on above: Order Comment: Speci men Type: BLOOD SPECIMENOrdering Facility: [facility] Address: [address] [place] [address] Performed By: #### 5 7021-8 ####[facility] LABCLIA [id number] [place] [address] Hematocrit (Bld) [Volume fraction] 27.0 % Low 36.0-46.0 [facility] Comment on above: Order Comment: Speci men Type: BLOOD SPECIMENOrdering Facility: [facility] Address: [address] [place] [address] Performed By: #### 5 7021-8 ####[facility] LABCLIA [id number] [place] [address] Hemoglobin (Bld) [Mass/Vol] 8.8 g/dL Low 11.5-15.5 [facility] Comment on above: Order Comment: Speci men Type: BLOOD SPECIMENOrdering Facility: [facility] Address: [address] [place] [address] Performed By: #### 5 7021-8 ####[facility] LABCLIA [id number] [place] [address] Immature granulocytes (Bld) [#/Vol] 0.04 10*3/uL Normal <0.10 [facility] Comment on above: Order Comment: Speci men Type: BLOOD SPECIMENOrdering Facility: [facility] Address: [address] [place] [address] Performed By: #### 5 7021-8 ####[facility] LABCLIA [id number] [place] [address] Immature granulocytes/100 WBC (Bld) 0.5 % Normal [facility] Comment on above: Order Comment: Speci men Type: BLOOD SPECIMENOrdering Facility: [facility] Address: [address] [place] [address] Performed By: #### 5 7021-8 ####[facility] LABCLIA [id number] [place] [address] Lymphocytes (Bld) [#/Vol] 1.07 10*3/uL Normal 1.00-4.00 [facility] Comment on above: Order Comment: Speci men Type: BLOOD SPECIMENOrdering Facility: [facility] Address: [address] [place] [address] Performed By: #### 5 7021-8 ####[facility] LABCLIA [id number] [place] [address] Lymphocytes/100 WBC (Bld) 12.8 % Normal [facility] Comment on above: Order Comment: Speci men Type: BLOOD SPECIMENOrdering Facility: [facility] Address: [address] [place] [address] Performed By: #### 5 7021-8 ####[facility] LABCLIA [id number] [place] [address] MCH (RBC) [Entitic mass] 33.3 pg Normal 26.0-34.0 [facility] Comment on above: Order Comment: Speci men Type: BLOOD SPECIMENOrdering Facility: [facility] Address: [address] [place] [address] Performed By: #### 5 7021-8 ####[facility] LABCLIA [id number] [place] [address] MCHC (RBC) [Mass/Vol] 32.6 g/dL Normal 30.5-36.0 [facility] Comment on above: Order Comment: Speci men Type: BLOOD SPECIMENOrdering Facility: [facility] Address: [address] [place] [address] Performed By: #### 5 7021-8 ####[facility] LABCLIA [id number] [place] [address] MCV (RBC) [Entitic vol] 102.3 fL High 80.0-100.0 [facility] Comment on above: Order Comment: Speci men Type: BLOOD SPECIMENOrdering Facility: [facility] Address: [address] [place] [address] Performed By: #### 5 7021-8 ####[facility] LABCLIA [id number] [place] [address] Monocytes (Bld) [#/Vol] 0.45 10*3/uL Normal <0.87 [facility] Comment on above: Order Comment: Speci men Type: BLOOD SPECIMENOrdering Facility: [facility] Address: [address] [place] [address] Performed By: #### 5 7021-8 ####[facility] LABCLIA [id number] [place] [address] Monocytes/100 WBC (Bld) 5.4 % Normal [facility] Comment on above: Order Comment: Speci men Type: BLOOD SPECIMENOrdering Facility: [facility] Address: [address] [place] [address] Performed By: #### 5 7021-8 ####[facility] LABCLIA [id number] [place] [address] Neutrophils (Bld) [#/Vol] 6.43 10*3/uL Normal 1.45-7.50 [facility] Comment on above: Order Comment: Speci men Type: BLOOD SPECIMENOrdering Facility: [facility] Address: [address] [place] [address] Performed By: #### 5 7021-8 ####[facility] LABCLIA [id number] [place] [address] Neutrophils/100 WBC (Bld) 76.9 % Normal [facility] Comment on above: Order Comment: Speci men Type: BLOOD SPECIMENOrdering Facility: [facility] Address: [address] [place] [address] Performed By: #### 5 7021-8 ####[facility] LABCLIA [id number] [place] [address] Nucleated RBC (Bld) [#/Vol] 10*3/uL Normal <0.01 [facility] Comment on above: Order Comment: Speci men Type: BLOOD SPECIMENOrdering Facility: [facility] Address: [address] [place], [place] [id number] Performed By: #### 5 7021-8 ####[facility] LABCLIA [id number] [place] [address] Nucleated RBC/100 WBC (Bld) [Ratio] 0.0 /100 WBC Normal [facility] Comment on above: Order Comment: Speci men Type: BLOOD SPECIMENOrdering Facility: [facility] Address: [address] [place] [address] Performed By: #### 5 7021-8 ####[facility] LABCLIA [id number] [place] [address] Platelet mean volume (Bld) [Entitic vol] 9.6 fL Normal 9.0-12.7 [facility] Comment on above: Order Comment: Speci men Type: BLOOD SPECIMENOrdering Facility: [facility] Address: [address] [place] [address] Performed By: #### 5 7021-8 ####[facility] LABCLIA [id number] [place] [address] Platelets (Bld) [#/Vol] 201 10*3/uL Normal 150-400 [facility] Comment on above: Order Comment: Speci men Type: BLOOD SPECIMENOrdering Facility: [facility] Address: [address] [place] [address] Performed By: #### 5 7021-8 ####[facility] LABCLIA [id number] [place] [address] RBC (Bld) [#/Vol] 2.64 10*6/uL Low 3.90-5.20 [facility] Comment on above: Order Comment: Speci men Type: BLOOD SPECIMENOrdering Facility: [facility] Address: [address] [place] [address] Performed By: #### 5 7021-8 ####[facility] LABCLIA [id number] [place] [address] WBC (Bld) [#/Vol] 8.36 10*3/uL Normal 3.70-11.00 [facility] Comment on above: Order Comment: Speci men Type: BLOOD SPECIMENOrdering Facility: [facility] Address: [address] [place] [address] Performed By: #### 5 7021-8 ####[facility] LABCLIA [id number] [place] [address] CBC W Auto Differential pane l (Bld)on 07-27-2023 Basophils (Bld) [#/Vol] 0.04 10*3/uL Normal <0.11 [facility] Comment on above: Order Comment: Speci men Type: BLOOD SPECIMENOrdering Facility: [facility] Address: [address] [place] [address] Performed By: #### 5 7021-8 ####[facility] LABIA [id number] [place] [address] Basophils/100 WBC (Bld) 0.4 % Normal [facility] Comment on above: Order Comment: Speci men Type: BLOOD SPECIMENOrdering Facility: [facility] Address: [address] [place] [address] Performed By: #### 5 7021-8 ####[facility] LABCLIA [id number] [place] [address] Differential cell count method Nom (Bld) Auto Normal [facility] Comment on above: Order Comment: Speci men Type: BLOOD SPECIMENOrdering Facility: [facility] Address: [address] [place] [address] Performed By: #### 5 7021-8 ####[facility] LABIA [id number] [place] [address] Eosinophils (Bld) [#/Vol] 0.39 10*3/uL Normal <0.46 [facility] Comment on above: Order Comment: Speci men Type: BLOOD SPECIMENOrdering Facility: [facility] Address: [address] [place] [address] Performed By: #### 5 7021-8 ####[facility] LABCLIA [id number] [place] [address] Eosinophils/100 WBC (Bld) 3.7 % Normal [facility] Comment on above: Order Comment: Speci men Type: BLOOD SPECIMENOrdering Facility: [facility] Address: [address] [place] [address] Performed By: #### 5 7021-8 ####[facility] LABCLIA [id number] [place] [address] Erythrocyte distribution width (RBC) [Ratio] 14.6 % Normal 11.5-15.0 [facility] Comment on above: Order Comment: Speci men Type: BLOOD SPECIMENOrdering Facility: [facility] Address: [address] [place] [address] Performed By: #### 5 7021-8 ####[facility] LABCLIA [id number] [place] [address] Hematocrit (Bld) [Volume fraction] 36.0 % Normal 36.0-46.0 [facility] Comment on above: Order Comment: Speci men Type: BLOOD SPECIMENOrdering Facility: [facility] Address: [address] [place] [address] Performed By: #### 5 7021-8 ####[facility] LABCLIA [id number] [place] [address] Hemoglobin (Bld) [Mass/Vol] 11.4 g/dL Low 11.5-15.5 [facility] Comment on above: Order Comment: Speci men Type: BLOOD SPECIMENOrdering Facility: [facility] Address: [address] [place] [address] Performed By: #### 5 7021-8 ####[facility] LABCLIA [id number] [place] [address] Immature granulocytes (Bld) [#/Vol] 0.15 10*3/uL High <0.10 [facility] Comment on above: Order Comment: Speci men Type: BLOOD SPECIMENOrdering Facility: [facility] Address: [address] [place] [address] Performed By: #### 5 7021-8 ####[facility] LABCLIA [id number] [place] [address] Immature granulocytes/100 WBC (Bld) 1.4 % Normal [facility] Comment on above: Order Comment: Speci men Type: BLOOD SPECIMENOrdering Facility: [facility] Address: [address] [place] [address] Performed By: #### 5 7021-8 ####[facility] LABCLIA [id number] [place] [address] Lymphocytes (Bld) [#/Vol] 0.95 10*3/uL Low 1.00-4.00 [facility] Comment on above: Order Comment: Speci men Type: BLOOD SPECIMENOrdering Facility: [facility] Address: [address] [place] [address] Performed By: #### 5 7021-8 ####[facility] LABCLIA [id number] [place] [address] Lymphocytes/100 WBC (Bld) 9.0 % Normal [facility] Comment on above: Order Comment: Speci men Type: BLOOD SPECIMENOrdering Facility: [facility] Address: [address] [place] [address] Performed By: #### 5 7021-8 ####[facility] LABCLIA [id number] [place] [address] MCH (RBC) [Entitic mass] 33.3 pg Normal 26.0-34.0 [facility] Comment on above: Order Comment: Speci men Type: BLOOD SPECIMENOrdering Facility: [facility] Address: [address] [place] [address] Performed By: #### 5 7021-8 ####[facility] LABCLIA [id number] [place] [address] MCHC (RBC) [Mass/Vol] 31.7 g/dL Normal 30.5-36.0 [facility] Comment on above: Order Comment: Speci men Type: BLOOD SPECIMENOrdering Facility: [facility] Address: [address] [place] [address] Performed By: #### 5 7021-8 ####[facility] LABIA [id number] [place] [address] MCV (RBC) [Entitic vol] 105.3 fL High 80.0-100.0 [facility] Comment on above: Order Comment: Speci men Type: BLOOD SPECIMENOrdering Facility: [facility] Address: [address] [place] [address] Performed By: #### 5 7021-8 ####[facility] LABIA [id number] [place] [address] Monocytes (Bld) [#/Vol] 0.79 10*3/uL Normal <0.87 [facility] Comment on above: Order Comment: Speci men Type: BLOOD SPECIMENOrdering Facility: [facility] Address: [address] [place] [address] Performed By: #### 5 7021-8 ####[facility] LABIA [id number] [place] [address] Monocytes/100 WBC (Bld) 7.5 % Normal [facility] Comment on above: Order Comment: Speci men Type: BLOOD SPECIMENOrdering Facility: [facility] Address: [address] [place] [address] Performed By: #### 5 7021-8 ####[facility] LABIA [id number] [place] [address] Neutrophils (Bld) [#/Vol] 8.19 10*3/uL High 1.45-7.50 [facility] Comment on above: Order Comment: Speci men Type: BLOOD SPECIMENOrdering Facility: [facility] Address: [address] [place] [address] Performed By: #### 5 7021-8 ####[facility] LABCLIA [id number] [place] [address] Neutrophils/100 WBC (Bld) 78.0 % Normal [facility] Comment on above: Order Comment: Speci men Type: BLOOD SPECIMENOrdering Facility: [facility] Address: [address] [place] [address] Performed By: #### 5 7021-8 ####[facility] LABCLIA [id number] [place] [address] Nucleated RBC (Bld) [#/Vol] 10*3/uL Normal <0.01 [facility] Comment on above: Order Comment: Speci men Type: BLOOD SPECIMENOrdering Facility: [facility] Address: [address] [place] [address] Performed By: #### 5 7021-8 ####[facility] LABCLIA [id number] [place] [address] Nucleated RBC/100 WBC (Bld) [Ratio] 0.0 /100 WBC Normal [facility] Comment on above: Order Comment: Speci men Type: BLOOD SPECIMENOrdering Facility: [facility] Address: [address] [place] [address] Performed By: #### 5 7021-8 ####[facility] LABCLIA [id number] [place] [address] Platelet mean volume (Bld) [Entitic vol] 9.8 fL Normal 9.0-12.7 [facility] Comment on above: Order Comment: Speci men Type: BLOOD SPECIMENOrdering Facility: [facility] Address: [address] [place] [address] Performed By: #### 5 7021-8 ####[facility] LABCLIA [id number] [place] [address] Platelets (Bld) [#/Vol] 276 10*3/uL Normal 150-400 [facility] Comment on above: Order Comment: Speci men Type: BLOOD SPECIMENOrdering Facility: [facility] Address: [address] [place] [address] Performed By: #### 5 7021-8 ####[facility] LABCLIA [id number] [place] [address] RBC (Bld) [#/Vol] 3.42 10*6/uL Low 3.90-5.20 [facility] Comment on above: Order Comment: Speci men Type: BLOOD SPECIMENOrdering Facility: [facility] Address: [address] [place] [address] Performed By: #### 5 7021-8 ####[facility] LABIA [id number] [place] [address] WBC (Bld) [#/Vol] 10.51 10*3/uL Normal 3.70-11.00 [facility] Comment on above: Order Comment: Speci men Type: BLOOD SPECIMENOrdering Facility: [facility] Address: [address] [place] [address] Performed By: #### 5 7021-8 ####[facility] LABIA [id number] [place] [address] Comprehensive metabolic 2000 panelon 07-27-2023 Albumin [Mass/Vol] 4.6 g/dL Normal 3.9-4.9 [facility] Comment on above: Order Comment: Speci men Type: BLOOD SPECIMENOrdering Facility: [facility] Address: [address] [place] [address] Performed By: #### 2 4323-8 ####[facility] LABIA [id number] [place] [address] ALP [Catalytic activity/Vol] 96 U/L Normal 34-123 [facility] Comment on above: Order Comment: Speci men Type: BLOOD SPECIMENOrdering Facility: [facility] Address: [address] [place] [address] Performed By: #### 2 4323-8 ####[facility] LABCLIA [id number] [place] [address] ALT [Catalytic activity/Vol] 13 U/L Normal 7-38 [facility] Comment on above: Order Comment: Speci men Type: BLOOD SPECIMENOrdering Facility: [facility] Address: [address] [place] [address] Performed By: #### 2 4323-8 ####[facility] LABCLIA [id number] [place] [address] Anion gap [Moles/Vol] 16 mmol/L Normal 9-18 [facility] Comment on above: Order Comment: Speci men Type: BLOOD SPECIMENOrdering Facility: [facility] Address: [address] [place] [address] Performed By: #### 2 4323-8 ####[facility] LABCLIA [id number] [place] [address] AST [Catalytic activity/Vol] 17 U/L Normal 13-35 [facility] Comment on above: Order Comment: Speci men Type: BLOOD SPECIMENOrdering Facility: [facility] Address: [address] [place] [address] Performed By: #### 2 4323-8 ####[facility] LABCLIA [id number] [place] [address] Bilirubin [Mass/Vol] 0.5 mg/dL Normal 0.2-1.3 [facility] Comment on above: Order Comment: Speci men Type: BLOOD SPECIMENOrdering Facility: [facility] Address: [address] [place] [address] Performed By: #### 2 4323-8 ####[facility] LABCLIA [id number] [place] [address] Calcium [Mass/Vol] 11.1 mg/dL High 8.5-10.2 [facility] Comment on above: Order Comment: Speci men Type: BLOOD SPECIMENOrdering Facility: [facility] Address: [address] [place] [address] Performed By: #### 2 4323-8 ####[facility] LABCLIA [id number] [place] [address] Chloride [Moles/Vol] 99 mmol/L Normal 97-105 [facility] Comment on above: Order Comment: Speci men Type: BLOOD SPECIMENOrdering Facility: [facility] Address: [address] [place] [address] Performed By: #### 2 4323-8 ####[facility] LABCLIA [id number] [place] [address] CO2 [Moles/Vol] 29 mmol/L Normal 22-30 [facility] Comment on above: Order Comment: Speci men Type: BLOOD SPECIMENOrdering Facility: [facility] Address: [address] [place] [address] Performed By: #### 2 4323-8 ####[facility] LABCLIA [id number] [place] [address] Creatinine [Mass/Vol] 16.09 mg/dL High 0.58-0.96 [facility] Comment on above: Order Comment: Speci men Type: BLOOD SPECIMENOrdering Facility: [facility] Address: [address] [place] [address] Performed By: #### 2 4323-8 ####[facility] LABCLIA [id number] [place] [address] Creatinine and Glomerular filtration rate.predicted panel (S/P/Bld) 3 mL/min/1.73m??? Low >=60 [facility] Comment on above: Order Comment: Speci men Type: BLOOD SPECIMENOrdering Facility: [facility] Address: [address] [place] [address] Result Comment: Rylee mated Glomerular Filtration Rate (eGFR) is calculated using the 2020 CKD-EPI creatinine equation. This equation utilizes serum creatinine, sex, and age as parameters. The creatinine assay has traceable calibration to isotope dilution-mass spectrometry. Refer to KDIGO guidelines for clinical interpretation. In patients with unstable renal function, e.g. those with acute kidney injury, the eGFR may not accurately reflect actual GFR. Performed By: #### 2 4323-8 ####[facility] LABCLIA [id number] [place] [address] Glucose [Mass/Vol] 143 mg/dL High 74-99 [facility] Comment on above: Order Comment: Speci men Type: BLOOD SPECIMENOrdering Facility: [facility] Address: [address] [place] [address] Result Comment: The [place] Diabetes Association (ADA) provides guidance for cutoff values for fasting glucose and random glucose. The ADA defines fasting as no caloric intake for at least 8 hours. Fasting plasma glucose results between 100 to 125 mg/dL indicate increased risk for diabetes (prediabetes).Fasting plasma glucose results greater than or equal to 126 mg/dL meet the criteria for diagnosis of diabetes. In the absence of unequivocal hyperglycemia, results should be confirmed by repeat testing. In a patient with classic symptoms of hyperglycemia or hyperglycemic crisis, random plasma glucose results greater than or equal to 200 mg/dL meet the criteria for diagnosis of diabetes.Reference: Standards of Medical Care in Diabetes 2016, [place] Diabetes Association. Diabetes Care. 2016.39(Suppl 1). Performed By: #### 2 4323-8 ####[facility] LABCLIA [id number] [place] [address] Potassium [Moles/Vol] 4.3 mmol/L Normal 3.7-5.1 [facility] Comment on above: Order Comment: Speci men Type: BLOOD SPECIMENOrdering Facility: [facility] Address: [address] [place] [address] Performed By: #### 2 4323-8 ####[facility] LABCLIA [id number] [place] [address] Protein [Mass/Vol] 7.1 g/dL Normal 6.3-8.0 [facility] Comment on above: Order Comment: Speci men Type: BLOOD SPECIMENOrdering Facility: [facility] Address: [address] [place] [address] Performed By: #### 2 4323-8 ####[facility] LABCLIA [id number] [place] [address] Sodium [Moles/Vol] 144 mmol/L Normal 136-144 [facility] Comment on above: Order Comment: Speci men Type: BLOOD SPECIMENOrdering Facility: [facility] Address: [address] [place] [address] Performed By: #### 2 4323-8 ####[facility] LABCLIA [id number] [place] [address] Urea nitrogen [Mass/Vol] 58 mg/dL High 7-21 [facility] Comment on above: Order Comment: Speci men Type: BLOOD SPECIMENOrdering Facility: [facility] Address: [address] [place] [address] Performed By: #### 2 4323-8 ####[facility] LABCLIA [id number] [place] [address] Ferritin SerPl-mCncon 2023 Ferritin [Mass/Vol] 616.0 ng/mL High 14.7-205.1 [facility] Comment on above: Order Comment: Speci men Type: BLOOD SPECIMENOrdering Facility: [facility] Address: [address] [place] [address] Performed By: #### 5 0190-8, 2132-9, 2276-4, 2284-8 ####[facility] LABCLIA [id number] [place] [address] [place] Folate SerPl-mCncon 07-27-19 24 Folate [Mass/Vol] ng/mL Normal >4.7 [facility] Comment on above: Order Comment: Speci men Type: BLOOD SPECIMENOrdering Facility: [facility] Address: [address] [place] [address] Result Comment: A re sult of > 20 ng/mL is not necessarily indicative of a pathologic or treatable condition: it reflects a limitation of the test methodology.Assay reference range: 4.8 to 24.2 ng/mL. Suitable for detection of folate deficiency.Reference:Folate III (Folate III) [package insert V 1.0 German]. [facility], [place], [place]: January 2015. Performed By: #### 5 0190-8, 9, 2275-06, 2283-10 ####[facility] LABCLIA [id number] [place] [id number] [place] Iron and Iron binding capaci ty panelon 07-27-2023 Iron [Mass/Vol] 68 ug/dL Normal 41-186 [facility] Comment on above: Order Comment: Speci men Type: BLOOD SPECIMENOrdering Facility: [facility] Address: [address] [place] [address] Performed By: #### 5 0190-8, 2131-11, 2275-06, 2283-10 ####[facility] LABIA [id number] [place] [address] [place] Iron binding capacity [Mass/Vol] 237 ug/dL Normal 232-386 [facility] Comment on above: Order Comment: Speci men Type: BLOOD SPECIMENOrdering Facility: [facility] Address: [address] [place] [address] Performed By: #### 5 0190-8, 9, 2275-06, 2283-10 ####[facility] LABIA [id number] [place] [id number] [place] Iron/TIBC [Molar ratio] 28.7 % Normal 15.0-57.0 [facility] Comment on above: Order Comment: Speci men Type: BLOOD SPECIMENOrdering Facility: [facility] Address: [address] [place] [address] Performed By: #### 5 0190-8, 9, 2275-06, 2283-10 ####[facility] LABCLIA [id number] [place] [address] [place] Vit B12 [facility] -14-2 024 Cobalamin (Vitamin B12) [Mass/Vol] 670 pg/mL Normal 232-1245 [facility] Comment on above: Order Comment: Speci men Type: BLOOD SPECIMENOrdering Facility: [facility] Address: [address] [place] [address] Performed By: #### 5 0190-8, 2132-9, 2276-4, 2284-8 ####[facility] LABCLIA [id number] [place] [address] [place] CBC W Auto Differential pane l (Bld)on 07-21-2023 Basophils (Bld) [#/Vol] 0.05 10*3/uL Normal <0.11 [facility] Comment on above: Order Comment: Speci men Type: BLOOD SPECIMENOrdering Facility: [facility] Address: [address] [place] [address] Performed By: #### 5 7021-8 ####[facility] LABCLIA [id number] [place] [address] Basophils/100 WBC (Bld) 0.5 % Normal [facility] Comment on above: Order Comment: Speci men Type: BLOOD SPECIMENOrdering Facility: [facility] Address: [address] [place] [address] Performed By: #### 5 7021-8 ####[facility] LABCLIA [id number] [place] [address] Differential cell count method Nom (Bld) Auto Normal [facility] Comment on above: Order Comment: Speci men Type: BLOOD SPECIMENOrdering Facility: [facility] Address: [address] [place] [address] Performed By: #### 5 7021-8 ####[facility] LABCLIA [id number] [place] [address] Eosinophils (Bld) [#/Vol] 0.31 10*3/uL Normal <0.46 [facility] Comment on above: Order Comment: Speci men Type: BLOOD SPECIMENOrdering Facility: [facility] Address: [address] [place] [address] Performed By: #### 5 7021-8 ####[facility] LABCLIA [id number] [place] [address] Eosinophils/100 WBC (Bld) 3.1 % Normal [facility] Comment on above: Order Comment: Speci men Type: BLOOD SPECIMENOrdering Facility: [facility] Address: [address] [place] [address] Performed By: #### 5 7021-8 ####[facility] LABCLIA [id number] [place] [address] Erythrocyte distribution width (RBC) [Ratio] 14.4 % Normal 11.5-15.0 [facility] Comment on above: Order Comment: Speci men Type: BLOOD SPECIMENOrdering Facility: [facility] Address: [address] [place] [address] Performed By: #### 5 7021-8 ####[facility] LABCLIA [id number] [place] [address] Hematocrit (Bld) [Volume fraction] 31.7 % Low 36.0-46.0 [facility] Comment on above: Order Comment: Speci men Type: BLOOD SPECIMENOrdering Facility: [facility] Address: [address] [place] [address] Performed By: #### 5 7021-8 ####[facility] LABCLIA [id number] [place] [address] Hemoglobin (Bld) [Mass/Vol] 10.2 g/dL Low 11.5-15.5 [facility] Comment on above: Order Comment: Speci men Type: BLOOD SPECIMENOrdering Facility: [facility] Address: [address] [place] [address] Performed By: #### 5 7021-8 ####[facility] LABCLIA [id number] [place] [address] Immature granulocytes (Bld) [#/Vol] 0.11 10*3/uL High <0.10 [facility] Comment on above: Order Comment: Speci men Type: BLOOD SPECIMENOrdering Facility: [facility] Address: [address] [place] [address] Performed By: #### 5 7021-8 ####[facility] LABCLIA [id number] [place] [address] Immature granulocytes/100 WBC (Bld) 1.1 % Normal [facility] Comment on above: Order Comment: Speci men Type: BLOOD SPECIMENOrdering Facility: [facility] Address: [address] [place] [address] Performed By: #### 5 7021-8 ####[facility] LABCLIA [id number] [place] [address] Lymphocytes (Bld) [#/Vol] 1.01 10*3/uL Normal 1.00-4.00 [facility] Comment on above: Order Comment: Speci men Type: BLOOD SPECIMENOrdering Facility: [facility] Address: [address] [place] [address] Performed By: #### 5 7021-8 ####[facility] LABCLIA [id number] [place] [address] Lymphocytes/100 WBC (Bld) 10.2 % Normal [facility] Comment on above: Order Comment: Speci men Type: BLOOD SPECIMENOrdering Facility: [facility] Address: [address] [place] [address] Performed By: #### 5 7021-8 ####[facility] LABCLIA [id number] [place] [address] MCH (RBC) [Entitic mass] 33.7 pg Normal 26.0-34.0 [facility] Comment on above: Order Comment: Speci men Type: BLOOD SPECIMENOrdering Facility: [facility] Address: [address] [place] [address] Performed By: #### 5 7021-8 ####[facility] LABCLIA [id number] [place] [address] MCHC (RBC) [Mass/Vol] 32.2 g/dL Normal 30.5-36.0 [facility] Comment on above: Order Comment: Speci men Type: BLOOD SPECIMENOrdering Facility: [facility] Address: [address] [place] [address] Performed By: #### 5 7021-8 ####[facility] LABCLIA [id number] [place] [address] MCV (RBC) [Entitic vol] 104.6 fL High 80.0-100.0 [facility] Comment on above: Order Comment: Speci men Type: BLOOD SPECIMENOrdering Facility: [facility] Address: [address] [place] [address] Performed By: #### 5 7021-8 ####[facility] LABCLIA [id number] [place] [address] Monocytes (Bld) [#/Vol] 0.58 10*3/uL Normal <0.87 [facility] Comment on above: Order Comment: Speci men Type: BLOOD SPECIMENOrdering Facility: [facility] Address: [address] [place] [address] Performed By: #### 5 7021-8 ####[facility] LABCLIA [id number] [place] [address] Monocytes/100 WBC (Bld) 5.9 % Normal [facility] Comment on above: Order Comment: Speci men Type: BLOOD SPECIMENOrdering Facility: [facility] Address: [address] [place] [address] Performed By: #### 5 7021-8 ####[facility] LABCLIA [id number] [place] [address] Neutrophils (Bld) [#/Vol] 7.84 10*3/uL High 1.45-7.50 [facility] Comment on above: Order Comment: Speci men Type: BLOOD SPECIMENOrdering Facility: [facility] Address: [address] [place] [address] Performed By: #### 5 7021-8 ####[facility] LABCLIA [id number] [place] [address] Neutrophils/100 WBC (Bld) 79.2 % Normal [facility] Comment on above: Order Comment: Speci men Type: BLOOD SPECIMENOrdering Facility: [facility] Address: [address] [place] [address] Performed By: #### 5 7021-8 ####[facility] LABCLIA [id number] [place] [address] Nucleated RBC (Bld) [#/Vol] 10*3/uL Normal <0.01 [facility] Comment on above: Order Comment: Speci men Type: BLOOD SPECIMENOrdering Facility: [facility] Address: [address] [place] [address] Performed By: #### 5 7021-8 ####[facility] LABCLIA [id number] [place] [address] Nucleated RBC/100 WBC (Bld) [Ratio] 0.0 /100 WBC Normal [facility] Comment on above: Order Comment: Speci men Type: BLOOD SPECIMENOrdering Facility: [facility] Address: [address] [place] [address] Performed By: #### 5 7021-8 ####[facility] LABIA [id number] [place] [address] Platelet mean volume (Bld) [Entitic vol] 9.8 fL Normal 9.0-12.7 [facility] Comment on above: Order Comment: Speci men Type: BLOOD SPECIMENOrdering Facility: [facility] Address: [address] [place] [address] Performed By: #### 5 7021-8 ####[facility] LABCLIA [id number] [place] [address] Platelets (Bld) [#/Vol] 266 10*3/uL Normal 150-400 [facility] Comment on above: Order Comment: Speci men Type: BLOOD SPECIMENOrdering Facility: [facility] Address: [address] [place] [address] Performed By: #### 5 7021-8 ####[facility] LABCLIA [id number] [place] [address] RBC (Bld) [#/Vol] 3.03 10*6/uL Low 3.90-5.20 [facility] Comment on above: Order Comment: Speci men Type: BLOOD SPECIMENOrdering Facility: [facility] Address: [address] [place] [address] Performed By: #### 5 7021-8 ####[facility] LABCLIA [id number] [place] [address] WBC (Bld) [#/Vol] 9.90 10*3/uL Normal 3.70-11.00 [facility] Comment on above: Order Comment: Speci men Type: BLOOD SPECIMENOrdering Facility: [facility] Address: [address] [place] [address] Performed By: #### 5 7021-8 ####[facility] LABCLIA [id number] [place] [address] Comprehensive metabolic 2000 panelon 07-21-2023 Albumin [Mass/Vol] 4.2 g/dL Normal 3.9-4.9 [facility] Comment on above: Order Comment: Speci men Type: BLOOD SPECIMENOrdering Facility: [facility] Address: [address] [place] [address] Performed By: #### 2 4323-8 ####[facility] LABCLIA [id number] [place] [address] ALP [Catalytic activity/Vol] 79 U/L Normal 34-123 [facility] Comment on above: Order Comment: Speci men Type: BLOOD SPECIMENOrdering Facility: [facility] Address: [address] [place] [address] Performed By: #### 2 4323-8 ####[facility] LABCLIA [id number] [place] [address] ALT [Catalytic activity/Vol] 13 U/L Normal 7-38 [facility] Comment on above: Order Comment: Speci men Type: BLOOD SPECIMENOrdering Facility: [facility] Address: [address] [place] [address] Performed By: #### 2 4323-8 ####[facility] LABCLIA [id number] [place] [address] Anion gap [Moles/Vol] 13 mmol/L Normal 9-18 [facility] Comment on above: Order Comment: Speci men Type: BLOOD SPECIMENOrdering Facility: [facility] Address: [address] [place] [address] Performed By: #### 2 4323-8 ####[facility] LABCLIA [id number] [place] [address] AST [Catalytic activity/Vol] 15 U/L Normal 13-35 [facility] Comment on above: Order Comment: Speci men Type: BLOOD SPECIMENOrdering Facility: [facility] Address: [address] [place] [address] Performed By: #### 2 4323-8 ####[facility] LABCLIA [id number] [place] [address] Bilirubin [Mass/Vol] 0.4 mg/dL Normal 0.2-1.3 [facility] Comment on above: Order Comment: Speci men Type: BLOOD SPECIMENOrdering Facility: [facility] Address: [address] [place] [address] Performed By: #### 2 4323-8 ####[facility] LABCLIA [id number] [place] [address] Calcium [Mass/Vol] 10.4 mg/dL High 8.5-10.2 [facility] Comment on above: Order Comment: Speci men Type: BLOOD SPECIMENOrdering Facility: [facility] Address: [address] [place] [address] Performed By: #### 2 4323-8 ####[facility] LABCLIA [id number] [place] [address] Chloride [Moles/Vol] 98 mmol/L Normal 97-105 [facility] Comment on above: Order Comment: Speci men Type: BLOOD SPECIMENOrdering Facility: [facility] Address: [address] [place] [address] Performed By: #### 2 4323-8 ####[facility] LABCLIA [id number] [place] [address] CO2 [Moles/Vol] 28 mmol/L Normal 22-30 [facility] Comment on above: Order Comment: Speci men Type: BLOOD SPECIMENOrdering Facility: [facility] Address: [address] [place] [address] Performed By: #### 2 4323-8 ####[facility] LABCLIA [id number] [place] [address] Creatinine [Mass/Vol] 16.03 mg/dL High 0.58-0.96 [facility] Comment on above: Order Comment: Speci men Type: BLOOD SPECIMENOrdering Facility: [facility] Address: [address] [place] [address] Performed By: #### 2 4323-8 ####[facility] LABCLIA [id number] [place] [address] Creatinine and Glomerular filtration rate.predicted panel (S/P/Bld) 3 mL/min/1.73m??? Low >=60 [facility] Comment on above: Order Comment: Speci men Type: BLOOD SPECIMENOrdering Facility: [facility] Address: [address] [place] [address] Result Comment: Rylee mated Glomerular Filtration Rate (eGFR) is calculated using the 2020 CKD-EPI creatinine equation. This equation utilizes serum creatinine, sex, and age as parameters. The creatinine assay has traceable calibration to isotope dilution-mass spectrometry. Refer to KDIGO guidelines for clinical interpretation. In patients with unstable renal function, e.g. those with acute kidney injury, the eGFR may not accurately reflect actual GFR. Performed By: #### 2 4323-8 ####[facility] LABCLIA [id number] [place] [address] Glucose [Mass/Vol] 135 mg/dL High 74-99 [facility] Comment on above: Order Comment: Isaiah mitchell Type: BLOOD SPECIMENOrdering Facility: [facility] Address: [address] [place] [address] Result Comment: The [place] Diabetes [employer] (ADA) provides guidance for cutoff values for fasting glucose and random glucose. The ADA defines fasting as no caloric intake for at least 8 hours. Fasting plasma glucose results between 100 to 125 mg/dL indicate increased risk for diabetes (prediabetes).Fasting plasma glucose results greater than or equal to 126 mg/dL meet the criteria for diagnosis of diabetes. In the absence of unequivocal hyperglycemia, results should be confirmed by repeat testing. In a patient with classic symptoms of hyperglycemia or hyperglycemic crisis, random plasma glucose results greater than or equal to 200 mg/dL meet the criteria for diagnosis of diabetes.Reference: Standards of Medical Care in Diabetes 2016, [place] [employer]. Diabetes Care. 2016.39(Suppl 1). Performed By: #### 2 4323-8 ####[facility] LABCLIA [id number] [place] [address] Potassium [Moles/Vol] 4.7 mmol/L Normal 3.7-5.1 [facility] Comment on above: Order Comment: Isaiah mitchell Type: BLOOD SPECIMENOrdering Facility: [facility] Address: [address] [id number] Performed By: #### 2 4323-8 ####[facility] LABCLIA [id number] [place] [address] Protein [Mass/Vol] 6.2 g/dL Low 6.3-8.0 [facility] Comment on above: Order Comment: Speci men Type: BLOOD SPECIMENOrdering Facility: [facility] Address: [address] [place] [address] Performed By: #### 2 4323-8 ####[facility] LABCLIA [id number] [place] [address] Sodium [Moles/Vol] 139 mmol/L Normal 136-144 [facility] Comment on above: Order Comment: Speci men Type: BLOOD SPECIMENOrdering Facility: [facility] Address: [address] [place] [address] Performed By: #### 2 4323-8 ####[facility] LABCLIA [id number] [place] [address] Urea nitrogen [Mass/Vol] 64 mg/dL High 7-21 [facility] Comment on above: Order Comment: Speci men Type: BLOOD SPECIMENOrdering Facility: [facility] Address: [address] [place] [address] Performed By: #### 2 4323-8 ####[facility] LABCLIA [id number] [place] [address] CBC W Auto Differential pane l (Bld)on 07-14-2023 Basophils (Bld) [#/Vol] 0.05 10*3/uL Normal <0.11 [facility] Comment on above: Order Comment: Speci men Type: BLOOD SPECIMENOrdering Facility: [facility] Address: [address] [place] [address] Performed By: #### 5 7021-8 ####[facility] LABCLIA [id number] [place] [address] Basophils/100 WBC (Bld) 0.5 % Normal [facility] Comment on above: Order Comment: Speci men Type: BLOOD SPECIMENOrdering Facility: [facility] Address: [address] [place] [address] Performed By: #### 5 7021-8 ####[facility] LABCLIA [id number] [place] [address] Differential cell count method Nom (Bld) Auto Normal [facility] Comment on above: Order Comment: Speci men Type: BLOOD SPECIMENOrdering Facility: [facility] Address: [address] [place] [address] Performed By: #### 5 7021-8 ####[facility] LABCLIA [id number] [place] [address] Eosinophils (Bld) [#/Vol] 0.40 10*3/uL Normal <0.46 [facility] Comment on above: Order Comment: Speci men Type: BLOOD SPECIMENOrdering Facility: [facility] Address: [address] [place] [address] Performed By: #### 5 7021-8 ####[facility] LABCLIA [id number] [place] [address] Eosinophils/100 WBC (Bld) 4.3 % Normal [facility] Comment on above: Order Comment: Speci men Type: BLOOD SPECIMENOrdering Facility: [facility] Address: [address] [place] [address] Performed By: #### 5 7021-8 ####[facility] LABCLIA [id number] [place] [address] Erythrocyte distribution width (RBC) [Ratio] 14.8 % Normal 11.5-15.0 [facility] Comment on above: Order Comment: Speci men Type: BLOOD SPECIMENOrdering Facility: [facility] Address: [address] [place] [address] Performed By: #### 5 7021-8 ####[facility] LABCLIA [id number] [place] [address] Hematocrit (Bld) [Volume fraction] 36.5 % Normal 36.0-46.0 [facility] Comment on above: Order Comment: Speci men Type: BLOOD SPECIMENOrdering Facility: [facility] Address: [address] [place] [address] Performed By: #### 5 7021-8 ####[facility] LABCLIA [id number] [place] [address] Hemoglobin (Bld) [Mass/Vol] 11.5 g/dL Normal 11.5-15.5 [facility] Comment on above: Order Comment: Speci men Type: BLOOD SPECIMENOrdering Facility: [facility] Address: [address] [place] [address] Performed By: #### 5 7021-8 ####[facility] LABCLIA [id number] [place] [address] Immature granulocytes (Bld) [#/Vol] 0.09 10*3/uL Normal <0.10 [facility] Comment on above: Order Comment: Speci men Type: BLOOD SPECIMENOrdering Facility: [facility] Address: [address] [place] [address] Performed By: #### 5 7021-8 ####[facility] LABCLIA [id number] [place] [address] Immature granulocytes/100 WBC (Bld) 1.0 % Normal [facility] Comment on above: Order Comment: Speci men Type: BLOOD SPECIMENOrdering Facility: [facility] Address: [address] [place] [address] Performed By: #### 5 7021-8 ####[facility] LABCLIA [id number] [place] [address] Lymphocytes (Bld) [#/Vol] 1.07 10*3/uL Normal 1.00-4.00 [facility] Comment on above: Order Comment: Speci men Type: BLOOD SPECIMENOrdering Facility: [facility] Address: [address] [place] [address] Performed By: #### 5 7021-8 ####[facility] LABCLIA [id number] [place] [address] Lymphocytes/100 WBC (Bld) 11.6 % Normal [facility] Comment on above: Order Comment: Speci men Type: BLOOD SPECIMENOrdering Facility: [facility] Address: [address] [place] [address] Performed By: #### 5 7021-8 ####[facility] LABCLIA [id number] [place] [address] MCH (RBC) [Entitic mass] 33.7 pg Normal 26.0-34.0 [facility] Comment on above: Order Comment: Speci men Type: BLOOD SPECIMENOrdering Facility: [facility] Address: [address] [place] [address] Performed By: #### 5 7021-8 ####[facility] LABCLIA [id number] [place] [address] MCHC (RBC) [Mass/Vol] 31.5 g/dL Normal 30.5-36.0 [facility] Comment on above: Order Comment: Speci men Type: BLOOD SPECIMENOrdering Facility: [facility] Address: [address] [place] [address] Performed By: #### 5 7021-8 ####[facility] LABCLIA [id number] [place] [address] MCV (RBC) [Entitic vol] 107.0 fL High 80.0-100.0 [facility] Comment on above: Order Comment: Speci men Type: BLOOD SPECIMENOrdering Facility: [facility] Address: [address] [place] [address] Performed By: #### 5 7021-8 ####[facility] LABCLIA [id number] [place] [address] Monocytes (Bld) [#/Vol] 0.56 10*3/uL Normal <0.87 [facility] Comment on above: Order Comment: Speci men Type: BLOOD SPECIMENOrdering Facility: [facility] Address: [address] [place] [address] Performed By: #### 5 7021-8 ####[facility] LABCLIA [id number] [place] [address] Monocytes/100 WBC (Bld) 6.0 % Normal [facility] Comment on above: Order Comment: Speci men Type: BLOOD SPECIMENOrdering Facility: [facility] Address: [address] [place] [address] Performed By: #### 5 7021-8 ####[facility] LABCLIA [id number] [place] [address] Neutrophils (Bld) [#/Vol] 7.09 10*3/uL Normal 1.45-7.50 [facility] Comment on above: Order Comment: Speci men Type: BLOOD SPECIMENOrdering Facility: [facility] Address: [address] [place] [address] Performed By: #### 5 7021-8 ####[facility] LABCLIA [id number] [place] [address] Neutrophils/100 WBC (Bld) 76.6 % Normal [facility] Comment on above: Order Comment: Speci men Type: BLOOD SPECIMENOrdering Facility: [facility] Address: [address] [place] [address] Performed By: #### 5 7021-8 ####[facility] LABCLIA [id number] [place] [address] Nucleated RBC (Bld) [#/Vol] 10*3/uL Normal <0.01 [facility] Comment on above: Order Comment: Speci men Type: BLOOD SPECIMENOrdering Facility: [facility] Address: [address] [place] [address] Performed By: #### 5 7021-8 ####[facility] LABCLIA [id number] [place] [address] Nucleated RBC/100 WBC (Bld) [Ratio] 0.0 /100 WBC Normal [facility] Comment on above: Order Comment: Speci men Type: BLOOD SPECIMENOrdering Facility: [facility] Address: [address] [place] [address] Performed By: #### 5 7021-8 ####[facility] LABCLIA [id number] [place] [address] Platelet mean volume (Bld) [Entitic vol] 9.6 fL Normal 9.0-12.7 [facility] Comment on above: Order Comment: Speci men Type: BLOOD SPECIMENOrdering Facility: [facility] Address: [address] [place] [address] Performed By: #### 5 7021-8 ####[facility] LABIA [id number] [place] [address] Platelets (Bld) [#/Vol] 294 10*3/uL Normal 150-400 [facility] Comment on above: Order Comment: Speci men Type: BLOOD SPECIMENOrdering Facility: [facility] Address: [address] [place] [address] Performed By: #### 5 7021-8 ####[facility] LABCLIA [id number] [place] [address] RBC (Bld) [#/Vol] 3.41 10*6/uL Low 3.90-5.20 [facility] Comment on above: Order Comment: Speci men Type: BLOOD SPECIMENOrdering Facility: [facility] Address: [address] [place] [address] Performed By: #### 5 7021-8 ####[facility] LABIA [id number] [place] [address] WBC (Bld) [#/Vol] 9.26 10*3/uL Normal 3.70-11.00 [facility] Comment on above: Order Comment: Speci men Type: BLOOD SPECIMENOrdering Facility: [facility] Address: [address] [place] [address] Performed By: #### 5 7021-8 ####[facility] LABCLIA [id number] [place] [address] CBC W Auto Differential pane l (Bld)on 07-07-2023 Basophils (Bld) [#/Vol] 0.04 10*3/uL Normal <0.11 [facility] Comment on above: Order Comment: Speci men Type: BLOOD SPECIMENOrdering Facility: [facility] Address: [address] [place] [address] Performed By: #### 5 7021-8 ####[facility] LABIA [id number] [place] [address] Basophils/100 WBC (Bld) 0.4 % Normal [facility] Comment on above: Order Comment: Speci men Type: BLOOD SPECIMENOrdering Facility: [facility] Address: [address] [place] [address] Performed By: #### 5 7021-8 ####[facility] LABCLIA [id number] [place] [address] Differential cell count method Nom (Bld) Auto Normal [facility] Comment on above: Order Comment: Speci men Type: BLOOD SPECIMENOrdering Facility: [facility] Address: [address] [place] [address] Performed By: #### 5 7021-8 ####[facility] LABCLIA [id number] [place] [address] Eosinophils (Bld) [#/Vol] 0.35 10*3/uL Normal <0.46 [facility] Comment on above: Order Comment: Speci men Type: BLOOD SPECIMENOrdering Facility: [facility] Address: [address] [place] [address] Performed By: #### 5 7021-8 ####[facility] LABCLIA [id number] [place] [address] Eosinophils/100 WBC (Bld) 3.6 % Normal [facility] Comment on above: Order Comment: Speci men Type: BLOOD SPECIMENOrdering Facility: [facility] Address: [address] [place] [address] Performed By: #### 5 7021-8 ####[facility] LABCLIA [id number] [place] [address] Erythrocyte distribution width (RBC) [Ratio] 16.3 % High 11.5-15.0 [facility] Comment on above: Order Comment: Speci men Type: BLOOD SPECIMENOrdering Facility: [facility] Address: [address] [place] [address] Performed By: #### 5 7021-8 ####[facility] LABCLIA [id number] [place] [address] Hematocrit (Bld) [Volume fraction] 35.8 % Low 36.0-46.0 [facility] Comment on above: Order Comment: Speci men Type: BLOOD SPECIMENOrdering Facility: [facility] Address: [address] [place] [address] Performed By: #### 5 7021-8 ####[facility] LABCLIA [id number] [place] [address] Hemoglobin (Bld) [Mass/Vol] 11.3 g/dL Low 11.5-15.5 [facility] Comment on above: Order Comment: Speci men Type: BLOOD SPECIMENOrdering Facility: [facility] Address: [address] [place] [address] Performed By: #### 5 7021-8 ####[facility] LABCLIA [id number] [place] [address] Immature granulocytes (Bld) [#/Vol] 0.09 10*3/uL Normal <0.10 [facility] Comment on above: Order Comment: Speci men Type: BLOOD SPECIMENOrdering Facility: [facility] Address: [address] [place] [address] Performed By: #### 5 7021-8 ####[facility] LABCLIA [id number] [place] [address] Immature granulocytes/100 WBC (Bld) 0.9 % Normal [facility] Comment on above: Order Comment: Speci men Type: BLOOD SPECIMENOrdering Facility: [facility] Address: [address] [place] [address] Performed By: #### 5 7021-8 ####[facility] LABCLIA [id number] [place] [address] Lymphocytes (Bld) [#/Vol] 1.13 10*3/uL Normal 1.00-4.00 [facility] Comment on above: Order Comment: Speci men Type: BLOOD SPECIMENOrdering Facility: [facility] Address: [address] [place] [address] Performed By: #### 5 7021-8 ####[facility] LABCLIA [id number] [place] [address] Lymphocytes/100 WBC (Bld) 11.7 % Normal [facility] Comment on above: Order Comment: Speci men Type: BLOOD SPECIMENOrdering Facility: [facility] Address: [address] [place] [address] Performed By: #### 5 7021-8 ####[facility] LABCLIA [id number] [place] [address] MCH (RBC) [Entitic mass] 34.0 pg Normal 26.0-34.0 [facility] Comment on above: Order Comment: Speci men Type: BLOOD SPECIMENOrdering Facility: [facility] Address: [address] [place] [address] Performed By: #### 5 7021-8 ####[facility] LABCLIA [id number] [place] [address] MCHC (RBC) [Mass/Vol] 31.6 g/dL Normal 30.5-36.0 [facility] Comment on above: Order Comment: Speci men Type: BLOOD SPECIMENOrdering Facility: [facility] Address: [address] [place] [address] Performed By: #### 5 7021-8 ####[facility] LABCLIA [id number] [place] [address] MCV (RBC) [Entitic vol] 107.8 fL High 80.0-100.0 [facility] Comment on above: Order Comment: Speci men Type: BLOOD SPECIMENOrdering Facility: [facility] Address: [address] [place] [address] Performed By: #### 5 7021-8 ####[facility] LABCLIA [id number] [place] [address] Monocytes (Bld) [#/Vol] 0.64 10*3/uL Normal <0.87 [facility] Comment on above: Order Comment: Speci men Type: BLOOD SPECIMENOrdering Facility: [facility] Address: [address] [place] [address] Performed By: #### 5 7021-8 ####[facility] LABIA [id number] [place] [address] Monocytes/100 WBC (Bld) 6.6 % Normal [facility] Comment on above: Order Comment: Speci men Type: BLOOD SPECIMENOrdering Facility: [facility] Address: [address] [place] [address] Performed By: #### 5 7021-8 ####[facility] LABCLIA [id number] [place] [address] Neutrophils (Bld) [#/Vol] 7.44 10*3/uL Normal 1.45-7.50 [facility] Comment on above: Order Comment: Speci men Type: BLOOD SPECIMENOrdering Facility: [facility] Address: [address] [place] [address] Performed By: #### 5 7021-8 ####[facility] LABCLIA [id number] [place] [address] Neutrophils/100 WBC (Bld) 76.8 % Normal [facility] Comment on above: Order Comment: Speci men Type: BLOOD SPECIMENOrdering Facility: [facility] Address: [address] [place] [address] Performed By: #### 5 7021-8 ####[facility] LABCLIA [id number] [place] [address] Nucleated RBC (Bld) [#/Vol] 10*3/uL Normal <0.01 [facility] Comment on above: Order Comment: Speci men Type: BLOOD SPECIMENOrdering Facility: [facility] Address: [address] [place] [address] Performed By: #### 5 7021-8 ####[facility] LABCLIA [id number] [place] [address] Nucleated RBC/100 WBC (Bld) [Ratio] 0.0 /100 WBC Normal [facility] Comment on above: Order Comment: Speci men Type: BLOOD SPECIMENOrdering Facility: [facility] Address: [address] [place] [address] Performed By: #### 5 7021-8 ####[facility] LABCLIA [id number] [place] [address] Platelet mean volume (Bld) [Entitic vol] 9.4 fL Normal 9.0-12.7 [facility] Comment on above: Order Comment: Speci men Type: BLOOD SPECIMENOrdering Facility: [facility] Address: [address] [place] [address] Performed By: #### 5 7021-8 ####[facility] LABCLIA [id number] [place] [address] Platelets (Bld) [#/Vol] 261 10*3/uL Normal 150-400 [facility] Comment on above: Order Comment: Speci men Type: BLOOD SPECIMENOrdering Facility: [facility] Address: [address] [place] [address] Performed By: #### 5 7021-8 ####[facility] LABCLIA [id number] [place] [address] RBC (Bld) [#/Vol] 3.32 10*6/uL Low 3.90-5.20 [facility] Comment on above: Order Comment: Speci men Type: BLOOD SPECIMENOrdering Facility: [facility] Address: [address] [place] [address] Performed By: #### 5 7021-8 ####[facility] LABIA [id number] [place] [address] WBC (Bld) [#/Vol] 9.69 10*3/uL Normal 3.70-11.00 [facility] Comment on above: Order Comment: Speci men Type: BLOOD SPECIMENOrdering Facility: [facility] Address: [address] [place] [address] Performed By: #### 5 7021-8 ####[facility] LABIA [id number] [place] [address] CNOVSPon 07-07-2023 CNOVSP Normal [facility] Comprehensive metabolic 2000 panelon 07-07-2023 Albumin [Mass/Vol] 3.6 g/dL Low 3.9-4.9 [facility] Comment on above: Order Comment: Speci men Type: BLOOD SPECIMENOrdering Facility: [facility] Address: [address] [place] [address] Performed By: #### 2 4323-8 ####[facility] LABIA [id number] [place] [address] ALP [Catalytic activity/Vol] 74 U/L Normal 34-123 [facility] Comment on above: Order Comment: Speci men Type: BLOOD SPECIMENOrdering Facility: [facility] Address: [address] [place] [address] Performed By: #### 2 4323-8 ####[facility] LABCLIA [id number] [place] [address] ALT [Catalytic activity/Vol] 8 U/L Normal 7-38 [facility] Comment on above: Order Comment: Speci men Type: BLOOD SPECIMENOrdering Facility: [facility] Address: [address] [place], [place] [address] Performed By: #### 2 4323-8 ####[facility] LABCLIA [id number] [place] [address] Anion gap [Moles/Vol] 15 mmol/L Normal 9-18 [facility] Comment on above: Order Comment: Speci men Type: BLOOD SPECIMENOrdering Facility: [facility] Address: [address] [place] [address] Performed By: #### 2 4323-8 ####[facility] LABCLIA [id number] [place] [address] AST [Catalytic activity/Vol] 11 U/L Low 13-35 [facility] Comment on above: Order Comment: Speci men Type: BLOOD SPECIMENOrdering Facility: [facility] Address: [address] [place] [address] Performed By: #### 2 4323-8 ####[facility] LABCLIA [id number] [place] [address] Bilirubin [Mass/Vol] 0.3 mg/dL Normal 0.2-1.3 [facility] Comment on above: Order Comment: Speci men Type: BLOOD SPECIMENOrdering Facility: [facility] Address: [address] [place], [place] [address] Performed By: #### 2 4323-8 ####[facility] LABCLIA [id number] [place] [address] Calcium [Mass/Vol] 9.8 mg/dL Normal 8.5-10.2 [facility] Comment on above: Order Comment: Speci men Type: BLOOD SPECIMENOrdering Facility: [facility] Address: [address] [place] [address] Performed By: #### 2 4323-8 ####[facility] LABCLIA [id number] [place] [address] Chloride [Moles/Vol] 98 mmol/L Normal 97-105 [facility] Comment on above: Order Comment: Speci men Type: BLOOD SPECIMENOrdering Facility: [facility] Address: [address] [place] [address] Performed By: #### 2 4323-8 ####[facility] LABCLIA [id number] [place] [address] CO2 [Moles/Vol] 28 mmol/L Normal 22-30 [facility] Comment on above: Order Comment: Speci men Type: BLOOD SPECIMENOrdering Facility: [facility] Address: [address] [place] [address] Performed By: #### 2 4323-8 ####[facility] LABCLIA [id number] [place] [address] Creatinine [Mass/Vol] 16.14 mg/dL High 0.58-0.96 [facility] Comment on above: Order Comment: Speci men Type: BLOOD SPECIMENOrdering Facility: [facility] Address: [address] [place] [address] Performed By: #### 2 4323-8 ####[facility] LABCLIA [id number] [place] [address] Creatinine and Glomerular filtration rate.predicted panel (S/P/Bld) 3 mL/min/1.73m??? Low >=60 [facility] Comment on above: Order Comment: Speci men Type: BLOOD SPECIMENOrdering Facility: [facility] Address: [address] [place] [address] Result Comment: Rylee mated Glomerular Filtration Rate (eGFR) is calculated using the 2020 CKD-EPI creatinine equation. This equation utilizes serum creatinine, sex, and age as parameters. The creatinine assay has traceable calibration to isotope dilution-mass spectrometry. Refer to KDIGO guidelines for clinical interpretation. In patients with unstable renal function, e.g. those with acute kidney injury, the eGFR may not accurately reflect actual GFR. Performed By: #### 2 4323-8 ####[facility] LABCLIA [id number] [place] [address] Glucose [Mass/Vol] 115 mg/dL High 74-99 [facility] Comment on above: Order Comment: Isaiah mitchell Type: BLOOD SPECIMENOrdering Facility: [facility] Address: [address] [place] [address] Result Comment: The [place] [employer] (ADA) provides guidance for cutoff values for fasting glucose and random glucose. The ADA defines fasting as no caloric intake for at least 8 hours. Fasting plasma glucose results between 100 to 125 mg/dL indicate increased risk for diabetes (prediabetes).Fasting plasma glucose results greater than or equal to 126 mg/dL meet the criteria for diagnosis of diabetes. In the absence of unequivocal hyperglycemia, results should be confirmed by repeat testing. In a patient with classic symptoms of hyperglycemia or hyperglycemic crisis, random plasma glucose results greater than or equal to 200 mg/dL meet the criteria for diagnosis of diabetes.Reference: Standards of Medical Care in Diabetes 2016, [place] [employer]. Diabetes Care. 2016.39(Suppl 1). Performed By: #### 2 4323-8 ####[facility] LABCLIA [id number] [place] [address] Potassium [Moles/Vol] 5.0 mmol/L Normal 3.7-5.1 [facility] Comment on above: Order Comment: Isaiah mitchell Type: BLOOD SPECIMENOrdering Facility: [facility] Address: [address] [place] [address] Performed By: #### 2 4323-8 ####[facility] LABCLIA [id number] [place] [address] Protein [Mass/Vol] 5.8 g/dL Low 6.3-8.0 [facility] Comment on above: Order Comment: Isaiah mitchell Type: BLOOD SPECIMENOrdering Facility: [facility] Address: [address] [place] [address] Performed By: #### 2 4323-8 ####[facility] LABCLIA [id number] [place] [address] Sodium [Moles/Vol] 141 mmol/L Normal 136-144 [facility] Comment on above: Order Comment: Speci men Type: BLOOD SPECIMENOrdering Facility: [facility] Address: [address] [place] [address] Performed By: #### 2 4323-8 ####[facility] LABCLIA [id number] [place] [address] Urea nitrogen [Mass/Vol] 53 mg/dL High 7-21 [facility] Comment on above: Order Comment: Speci men Type: BLOOD SPECIMENOrdering Facility: [facility] Address: [address] [place] [address] Performed By: #### 2 4323-8 ####[facility] LABCLIA [id number] [place] [address] CBC W Auto Differential pane l (Bld)on 06-30-2023 Basophils (Bld) [#/Vol] 0.05 10*3/uL Normal <0.11 [facility] Comment on above: Order Comment: Speci men Type: BLOOD SPECIMENOrdering Facility: [facility] Address: [address] [place] [address] Performed By: #### 5 7021-8 ####[facility] LABCLIA [id number] [place] [address] Basophils/100 WBC (Bld) 0.7 % Normal [facility] Comment on above: Order Comment: Speci men Type: BLOOD SPECIMENOrdering Facility: [facility] Address: [address] [place] [address] Performed By: #### 5 7021-8 ####[facility] LABCLIA [id number] [place] [address] Differential cell count method Nom (Bld) Auto Normal [facility] Comment on above: Order Comment: Speci men Type: BLOOD SPECIMENOrdering Facility: [facility] Address: [address] [place] [address] Performed By: #### 5 7021-8 ####[facility] LABCLIA [id number] [place] [address] Eosinophils (Bld) [#/Vol] 0.22 10*3/uL Normal <0.46 [facility] Comment on above: Order Comment: Speci men Type: BLOOD SPECIMENOrdering Facility: [facility] Address: [address] [place] [address] Performed By: #### 5 7021-8 ####[facility] LABCLIA [id number] [place] [address] Eosinophils/100 WBC (Bld) 3.2 % Normal [facility] Comment on above: Order Comment: Speci men Type: BLOOD SPECIMENOrdering Facility: [facility] Address: [address] [place] [address] Performed By: #### 5 7021-8 ####[facility] LABCLIA [id number] [place] [address] Erythrocyte distribution width (RBC) [Ratio] 17.2 % High 11.5-15.0 [facility] Comment on above: Order Comment: Speci men Type: BLOOD SPECIMENOrdering Facility: [facility] Address: [address] [place] [address] Performed By: #### 5 7021-8 ####[facility] LABCLIA [id number] [place] [address] Hematocrit (Bld) [Volume fraction] 33.9 % Low 36.0-46.0 [facility] Comment on above: Order Comment: Speci men Type: BLOOD SPECIMENOrdering Facility: [facility] Address: [address] [place] [address] Performed By: #### 5 7021-8 ####[facility] LABCLIA [id number] [place] [address] Hemoglobin (Bld) [Mass/Vol] 10.7 g/dL Low 11.5-15.5 [facility] Comment on above: Order Comment: Speci men Type: BLOOD SPECIMENOrdering Facility: [facility] Address: [address] [place] [address] Performed By: #### 5 7021-8 ####[facility] LABCLIA [id number] [place] [address] Immature granulocytes (Bld) [#/Vol] 0.08 10*3/uL Normal <0.10 [facility] Comment on above: Order Comment: Speci men Type: BLOOD SPECIMENOrdering Facility: [facility] Address: [address] [place] [address] Performed By: #### 5 7021-8 ####[facility] LABCLIA [id number] [place] [address] Immature granulocytes/100 WBC (Bld) 1.2 % Normal [facility] Comment on above: Order Comment: Speci men Type: BLOOD SPECIMENOrdering Facility: [facility] Address: [address] [place] [address] Performed By: #### 5 7021-8 ####[facility] LABCLIA [id number] [place] [address] Lymphocytes (Bld) [#/Vol] 1.03 10*3/uL Normal 1.00-4.00 [facility] Comment on above: Order Comment: Speci men Type: BLOOD SPECIMENOrdering Facility: [facility] Address: [address] [place] [address] Performed By: #### 5 7021-8 ####[facility] LABCLIA [id number] [place] [address] Lymphocytes/100 WBC (Bld) 14.9 % Normal [facility] Comment on above: Order Comment: Speci men Type: BLOOD SPECIMENOrdering Facility: [facility] Address: [address] [place] [address] Performed By: #### 5 7021-8 ####[facility] LABCLIA [id number] [place] [address] MCH (RBC) [Entitic mass] 34.1 pg High 26.0-34.0 [facility] Comment on above: Order Comment: Speci men Type: BLOOD SPECIMENOrdering Facility: [facility] Address: [address] [place] [address] Performed By: #### 5 7021-8 ####[facility] LABCLIA [id number] [place] [address] MCHC (RBC) [Mass/Vol] 31.6 g/dL Normal 30.5-36.0 [facility] Comment on above: Order Comment: Speci men Type: BLOOD SPECIMENOrdering Facility: [facility] Address: [address] [place] [address] Performed By: #### 5 7021-8 ####[facility] LABIA [id number] [place] [address] MCV (RBC) [Entitic vol] 108.0 fL High 80.0-100.0 [facility] Comment on above: Order Comment: Speci men Type: BLOOD SPECIMENOrdering Facility: [facility] Address: [address] [place] [address] Performed By: #### 5 7021-8 ####[facility] LABCLIA [id number] [place] [address] Monocytes (Bld) [#/Vol] 0.88 10*3/uL High <0.87 [facility] Comment on above: Order Comment: Speci men Type: BLOOD SPECIMENOrdering Facility: [facility] Address: [address] [place] [address] Performed By: #### 5 7021-8 ####[facility] LABCLIA [id number] [place] [address] Monocytes/100 WBC (Bld) 12.7 % Normal [facility] Comment on above: Order Comment: Speci men Type: BLOOD SPECIMENOrdering Facility: [facility] Address: [address] [place] [address] Performed By: #### 5 7021-8 ####[facility] LABCLIA [id number] [place] [address] Neutrophils (Bld) [#/Vol] 4.66 10*3/uL Normal 1.45-7.50 [facility] Comment on above: Order Comment: Speci men Type: BLOOD SPECIMENOrdering Facility: [facility] Address: [address] [place] [address] Performed By: #### 5 7021-8 ####[facility] LABCLIA [id number] [place] [address] Neutrophils/100 WBC (Bld) 67.3 % Normal [facility] Comment on above: Order Comment: Speci men Type: BLOOD SPECIMENOrdering Facility: [facility] Address: [address] [place] [address] Performed By: #### 5 7021-8 ####[facility] LABCLIA [id number] [place] [address] Nucleated RBC (Bld) [#/Vol] 10*3/uL Normal <0.01 [facility] Comment on above: Order Comment: Speci men Type: BLOOD SPECIMENOrdering Facility: [facility] Address: [address] [place] [address] Performed By: #### 5 7021-8 ####[facility] LABCLIA [id number] [place] [address] Nucleated RBC/100 WBC (Bld) [Ratio] 0.0 /100 WBC Normal [facility] Comment on above: Order Comment: Speci men Type: BLOOD SPECIMENOrdering Facility: [facility] Address: [address] [place] [address] Performed By: #### 5 7021-8 ####[facility] LABCLIA [id number] [place] [address] Platelet mean volume (Bld) [Entitic vol] 9.1 fL Normal 9.0-12.7 [facility] Comment on above: Order Comment: Speci men Type: BLOOD SPECIMENOrdering Facility: [facility] Address: [address] [place] [address] Performed By: #### 5 7021-8 ####[facility] LABCLIA [id number] [place] [address] Platelets (Bld) [#/Vol] 272 10*3/uL Normal 150-400 [facility] Comment on above: Order Comment: Speci men Type: BLOOD SPECIMENOrdering Facility: [facility] Address: [address] [place] [address] Performed By: #### 5 7021-8 ####[facility] LABIA [id number] [place] [address] RBC (Bld) [#/Vol] 3.14 10*6/uL Low 3.90-5.20 [facility] Comment on above: Order Comment: Speci men Type: BLOOD SPECIMENOrdering Facility: [facility] Address: [address] [place] [address] Performed By: #### 5 7021-8 ####[facility] LABIA [id number] [place] [address] WBC (Bld) [#/Vol] 6.92 10*3/uL Normal 3.70-11.00 [facility] Comment on above: Order Comment: Speci men Type: BLOOD SPECIMENOrdering Facility: [facility] Address: [address] [place] [address] Performed By: #### 5 7021-8 ####[facility] LABCLIA [id number] [place] [address] Comprehensive metabolic 2000 panelon 04-17-2024 Albumin [Mass/Vol] 3.7 g/dL Low 3.9-4.9 [facility] Comment on above: Order Comment: Speci men Type: BLOOD SPECIMENOrdering Facility: [facility] Address: [address] [place] [address] Performed By: #### 2 4323-8 ####[facility] LABCLIA [id number] [place] [address] ALP [Catalytic activity/Vol] 62 U/L Normal 34-123 [facility] Comment on above: Order Comment: Speci men Type: BLOOD SPECIMENOrdering Facility: [facility] Address: [address] [place] [address] Performed By: #### 2 4323-8 ####[facility] LABCLIA [id number] [place] [address] ALT [Catalytic activity/Vol] 10 U/L Normal 7-38 [facility] Comment on above: Order Comment: Speci men Type: BLOOD SPECIMENOrdering Facility: [facility] Address: [address] [place] [address] Performed By: #### 2 4323-8 ####[facility] LABCLIA [id number] [place] [address] Anion gap [Moles/Vol] 14 mmol/L Normal 9-18 [facility] Comment on above: Order Comment: Speci men Type: BLOOD SPECIMENOrdering Facility: [facility] Address: [address] [place] [address] Performed By: #### 2 4323-8 ####[facility] LABCLIA [id number] [place] [address] AST [Catalytic activity/Vol] 14 U/L Normal 13-35 [facility] Comment on above: Order Comment: Speci men Type: BLOOD SPECIMENOrdering Facility: [facility] Address: [address] [place] [address] Performed By: #### 2 4323-8 ####[facility] LABCLIA [id number] [place] [address] Bilirubin [Mass/Vol] 0.3 mg/dL Normal 0.2-1.3 [facility] Comment on above: Order Comment: Speci men Type: BLOOD SPECIMENOrdering Facility: [facility] Address: [address] [place] [address] Performed By: #### 2 4323-8 ####[facility] LABCLIA [id number] [place] [address] Calcium [Mass/Vol] 10.1 mg/dL Normal 8.5-10.2 [facility] Comment on above: Order Comment: Speci men Type: BLOOD SPECIMENOrdering Facility: [facility] Address: [address] [place] [address] Performed By: #### 2 4323-8 ####[facility] LABCLIA [id number] [place] [address] Chloride [Moles/Vol] 102 mmol/L Normal 97-105 [facility] Comment on above: Order Comment: Speci men Type: BLOOD SPECIMENOrdering Facility: [facility] Address: [address] [place] [address] Performed By: #### 2 4323-8 ####[facility] LABCLIA [id number] [place] [address] CO2 [Moles/Vol] 27 mmol/L Normal 22-30 [facility] Comment on above: Order Comment: Speci men Type: BLOOD SPECIMENOrdering Facility: [facility] Address: [address] [place] [address] Performed By: #### 2 4323-8 ####[facility] LABCLIA [id number] [place] [address] Creatinine [Mass/Vol] 13.96 mg/dL High 0.58-0.96 [facility] Comment on above: Order Comment: Speci men Type: BLOOD SPECIMENOrdering Facility: [facility] Address: [address] [place], [place] [id number] Performed By: #### 2 4323-8 ####[facility] LABCLIA [id number] [place] [address] Creatinine and Glomerular filtration rate.predicted panel (S/P/Bld) 3 mL/min/1.73m??? Low >=60 [facility] Comment on above: Order Comment: Isaiah mitchell Type: BLOOD SPECIMENOrdering Facility: [facility] Address: [address] [place] [address] Result Comment: Rylee mated Glomerular Filtration Rate (eGFR) is calculated using the 2020 CKD-EPI creatinine equation. This equation utilizes serum creatinine, sex, and age as parameters. The creatinine assay has traceable calibration to isotope dilution-mass spectrometry. Refer to KDIGO guidelines for clinical interpretation. In patients with unstable renal function, e.g. those with acute kidney injury, the eGFR may not accurately reflect actual GFR. Performed By: #### 2 4323-8 ####[facility] LABCLIA [id number] [place] [address] Glucose [Mass/Vol] 111 mg/dL High 74-99 [facility] Comment on above: Order Comment: Isaiah mitchell Type: BLOOD SPECIMENOrdering Facility: [facility] Address: [address] [place] [address] Result Comment: The [place] [employer] (ADA) provides guidance for cutoff values for fasting glucose and random glucose. The ADA defines fasting as no caloric intake for at least 8 hours. Fasting plasma glucose results between 100 to 125 mg/dL indicate increased risk for diabetes (prediabetes).Fasting plasma glucose results greater than or equal to 126 mg/dL meet the criteria for diagnosis of diabetes. In the absence of unequivocal hyperglycemia, results should be confirmed by repeat testing. In a patient with classic symptoms of hyperglycemia or hyperglycemic crisis, random plasma glucose results greater than or equal to 200 mg/dL meet the criteria for diagnosis of diabetes.Reference: Standards of Medical Care in Diabetes 2016, [place] [employer]. Diabetes Care. 2016.39(Suppl 1). Performed By: #### 2 4323-8 ####[facility] LABCLIA [id number] [place] [address] Potassium [Moles/Vol] 5.0 mmol/L Normal 3.7-5.1 [facility] Comment on above: Order Comment: Speci men Type: BLOOD SPECIMENOrdering Facility: [facility] Address: [address] [place] [address] Performed By: #### 2 4323-8 ####[facility] LABCLIA [id number] [place] [address] Protein [Mass/Vol] 5.6 g/dL Low 6.3-8.0 [facility] Comment on above: Order Comment: Speci men Type: BLOOD SPECIMENOrdering Facility: [facility] Address: [address] [place] [address] Performed By: #### 2 4323-8 ####[facility] LABCLIA [id number] [place] [address] Sodium [Moles/Vol] 143 mmol/L Normal 136-144 [facility] Comment on above: Order Comment: Speci men Type: BLOOD SPECIMENOrdering Facility: [facility] Address: [address] [place] [address] Performed By: #### 2 4323-8 ####[facility] LABCLIA [id number] [place] [address] Urea nitrogen [Mass/Vol] 50 mg/dL High 7-21 [facility] Comment on above: Order Comment: Speci men Type: BLOOD SPECIMENOrdering Facility: [facility] Address: [address] [place] [address] Performed By: #### 2 4323-8 ####[facility] LABIA [id number] [place] [address] CBC W Auto Differential pane l (Bld)on 06-23-2023 Basophils (Bld) [#/Vol] 0.03 10*3/uL Normal <0.11 [facility] Comment on above: Order Comment: Speci men Type: BLOOD SPECIMENOrdering Facility: [facility] Address: [address] [place] [address] Performed By: #### 5 7021-8 ####[facility] LABCLIA [id number] [place] [address] Basophils/100 WBC (Bld) 0.6 % Normal [facility] Comment on above: Order Comment: Speci men Type: BLOOD SPECIMENOrdering Facility: [facility] Address: [address] [place] [address] Performed By: #### 5 7021-8 ####[facility] LABCLIA [id number] [place] [address] Differential cell count method Nom (Bld) Auto Normal [facility] Comment on above: Order Comment: Speci men Type: BLOOD SPECIMENOrdering Facility: [facility] Address: [address] [place] [address] Performed By: #### 5 7021-8 ####[facility] LABCLIA [id number] [place] [address] Eosinophils (Bld) [#/Vol] 0.26 10*3/uL Normal <0.46 [facility] Comment on above: Order Comment: Speci men Type: BLOOD SPECIMENOrdering Facility: [facility] Address: [address] [place] [address] Performed By: #### 5 7021-8 ####[facility] LABCLIA [id number] [place] [address] Eosinophils/100 WBC (Bld) 5.3 % Normal [facility] Comment on above: Order Comment: Speci men Type: BLOOD SPECIMENOrdering Facility: [facility] Address: [address] [place] [address] Performed By: #### 5 7021-8 ####[facility] LABCLIA [id number] [place] [address] Erythrocyte distribution width (RBC) [Ratio] 18.2 % High 11.5-15.0 [facility] Comment on above: Order Comment: Speci men Type: BLOOD SPECIMENOrdering Facility: [facility] Address: [address] [place] [address] Performed By: #### 5 7021-8 ####[facility] LABCLIA [id number] [place] [address] Hematocrit (Bld) [Volume fraction] 30.9 % Low 36.0-46.0 [facility] Comment on above: Order Comment: Speci men Type: BLOOD SPECIMENOrdering Facility: [facility] Address: [address] [place] [address] Performed By: #### 5 7021-8 ####[facility] LABCLIA [id number] [place] [address] Hemoglobin (Bld) [Mass/Vol] 9.8 g/dL Low 11.5-15.5 [facility] Comment on above: Order Comment: Speci men Type: BLOOD SPECIMENOrdering Facility: [facility] Address: [address] [place] [address] Performed By: #### 5 7021-8 ####[facility] LABCLIA [id number] [place] [address] Immature granulocytes (Bld) [#/Vol] 10*3/uL Normal <0.10 [facility] Comment on above: Order Comment: Speci men Type: BLOOD SPECIMENOrdering Facility: [facility] Address: [address] [place] [address] Performed By: #### 5 7021-8 ####[facility] LABCLIA [id number] [place] [address] Immature granulocytes/100 WBC (Bld) 0.4 % Normal [facility] Comment on above: Order Comment: Speci men Type: BLOOD SPECIMENOrdering Facility: [facility] Address: [address] [place] [address] Performed By: #### 5 7021-8 ####[facility] LABCLIA [id number] [place] [address] Lymphocytes (Bld) [#/Vol] 0.85 10*3/uL Low 1.00-4.00 [facility] Comment on above: Order Comment: Speci men Type: BLOOD SPECIMENOrdering Facility: [facility] Address: [address] [place] [address] Performed By: #### 5 7021-8 ####[facility] LABCLIA [id number] [place] [address] Lymphocytes/100 WBC (Bld) 17.3 % Normal [facility] Comment on above: Order Comment: Speci men Type: BLOOD SPECIMENOrdering Facility: [facility] Address: [address] [place] [address] Performed By: #### 5 7021-8 ####[facility] LABIA [id number] [place] [address] MCH (RBC) [Entitic mass] 33.9 pg Normal 26.0-34.0 [facility] Comment on above: Order Comment: Speci men Type: BLOOD SPECIMENOrdering Facility: [facility] Address: [address] [place] [address] Performed By: #### 5 7021-8 ####[facility] LABCLIA [id number] [place] [address] MCHC (RBC) [Mass/Vol] 31.7 g/dL Normal 30.5-36.0 [facility] Comment on above: Order Comment: Speci men Type: BLOOD SPECIMENOrdering Facility: [facility] Address: [address] [place] [address] Performed By: #### 5 7021-8 ####[facility] LABIA [id number] [place] [address] MCV (RBC) [Entitic vol] 106.9 fL High 80.0-100.0 [facility] Comment on above: Order Comment: Speci men Type: BLOOD SPECIMENOrdering Facility: [facility] Address: [address] [place] [address] Performed By: #### 5 7021-8 ####[facility] LABCLIA [id number] [place] [address] Monocytes (Bld) [#/Vol] 0.68 10*3/uL Normal <0.87 [facility] Comment on above: Order Comment: Speci men Type: BLOOD SPECIMENOrdering Facility: [facility] Address: [address] [place] [address] Performed By: #### 5 7021-8 ####[facility] LABCLIA [id number] [place] [address] Monocytes/100 WBC (Bld) 13.8 % Normal [facility] Comment on above: Order Comment: Speci men Type: BLOOD SPECIMENOrdering Facility: [facility] Address: [address] [place] [address] Performed By: #### 5 7021-8 ####[facility] LABCLIA [id number] [place] [address] Neutrophils (Bld) [#/Vol] 3.07 10*3/uL Normal 1.45-7.50 [facility] Comment on above: Order Comment: Speci men Type: BLOOD SPECIMENOrdering Facility: [facility] Address: [address] [place] [address] Performed By: #### 5 7021-8 ####[facility] LABCLIA [id number] [place] [address] Neutrophils/100 WBC (Bld) 62.6 % Normal [facility] Comment on above: Order Comment: Speci men Type: BLOOD SPECIMENOrdering Facility: [facility] Address: [address] [place] [address] Performed By: #### 5 7021-8 ####[facility] LABCLIA [id number] [place] [address] Nucleated RBC (Bld) [#/Vol] 10*3/uL Normal <0.01 [facility] Comment on above: Order Comment: Speci men Type: BLOOD SPECIMENOrdering Facility: [facility] Address: [address] [place] [address] Performed By: #### 5 7021-8 ####[facility] LABCLIA [id number] [place] [address] Nucleated RBC/100 WBC (Bld) [Ratio] 0.0 /100 WBC Normal [facility] Comment on above: Order Comment: Speci men Type: BLOOD SPECIMENOrdering Facility: [facility] Address: [address] [place] [address] Performed By: #### 5 7021-8 ####[facility] LABCLIA [id number] [place] [address] Platelet mean volume (Bld) [Entitic vol] 9.2 fL Normal 9.0-12.7 [facility] Comment on above: Order Comment: Speci men Type: BLOOD SPECIMENOrdering Facility: [facility] Address: [address] [place] [address] Performed By: #### 5 7021-8 ####[facility] LABIA [id number] [place] [address] Platelets (Bld) [#/Vol] 348 10*3/uL Normal 150-400 [facility] Comment on above: Order Comment: Speci men Type: BLOOD SPECIMENOrdering Facility: [facility] Address: [address] [place] [address] Performed By: #### 5 7021-8 ####[facility] LABIA [id number] [place] [address] RBC (Bld) [#/Vol] 2.89 10*6/uL Low 3.90-5.20 [facility] Comment on above: Order Comment: Speci men Type: BLOOD SPECIMENOrdering Facility: [facility] Address: [address] [place] [address] Performed By: #### 5 7021-8 ####[facility] LABCLIA [id number] [place] [address] WBC (Bld) [#/Vol] 4.91 10*3/uL Normal 3.70-11.00 [facility] Comment on above: Order Comment: Speci men Type: BLOOD SPECIMENOrdering Facility: [facility] Address: [address] [place] [address] Performed By: #### 5 7021-8 ####[facility] LABCLIA [id number] [place] [address] CBC W Auto Differential pane l (Bld)on 06-16-2023 Basophils (Bld) [#/Vol] 0.04 10*3/uL Normal <0.11 [facility] Comment on above: Order Comment: Speci men Type: BLOOD SPECIMENOrdering Facility: [facility] Address: [address] [place] [address] Performed By: #### 5 7021-8 ####[facility] LABCLIA [id number] [place] [address] Basophils/100 WBC (Bld) 0.7 % Normal [facility] Comment on above: Order Comment: Speci men Type: BLOOD SPECIMENOrdering Facility: [facility] Address: [address] [place] [address] Performed By: #### 5 7021-8 ####[facility] LABCLIA [id number] [place] [address] Differential cell count method Nom (Bld) Auto Normal [facility] Comment on above: Order Comment: Speci men Type: BLOOD SPECIMENOrdering Facility: [facility] Address: [address] [place] [address] Performed By: #### 5 7021-8 ####[facility] LABCLIA [id number] [place] [address] Eosinophils (Bld) [#/Vol] 0.28 10*3/uL Normal <0.46 [facility] Comment on above: Order Comment: Speci men Type: BLOOD SPECIMENOrdering Facility: [facility] Address: [address] [place] [address] Performed By: #### 5 7021-8 ####[facility] LABCLIA [id number] [place] [address] Eosinophils/100 WBC (Bld) 4.6 % Normal [facility] Comment on above: Order Comment: Speci men Type: BLOOD SPECIMENOrdering Facility: [facility] Address: [address] [place] [address] Performed By: #### 5 7021-8 ####[facility] LABCLIA [id number] [place] [address] Erythrocyte distribution width (RBC) [Ratio] 18.4 % High 11.5-15.0 [facility] Comment on above: Order Comment: Speci men Type: BLOOD SPECIMENOrdering Facility: [facility] Address: [address] [place] [address] Performed By: #### 5 7021-8 ####[facility] LABCLIA [id number] [place] [address] Hematocrit (Bld) [Volume fraction] 29.5 % Low 36.0-46.0 [facility] Comment on above: Order Comment: Speci men Type: BLOOD SPECIMENOrdering Facility: [facility] Address: [address] [place] [address] Performed By: #### 5 7021-8 ####[facility] LABCLIA [id number] [place] [address] Hemoglobin (Bld) [Mass/Vol] 9.5 g/dL Low 11.5-15.5 [facility] Comment on above: Order Comment: Speci men Type: BLOOD SPECIMENOrdering Facility: [facility] Address: [address] [place] [address] Performed By: #### 5 7021-8 ####[facility] LABCLIA [id number] [place] [address] Immature granulocytes (Bld) [#/Vol] 0.05 10*3/uL Normal <0.10 [facility] Comment on above: Order Comment: Speci men Type: BLOOD SPECIMENOrdering Facility: [facility] Address: [address] [place] [address] Performed By: #### 5 7021-8 ####[facility] LABCLIA [id number] [place] [address] Immature granulocytes/100 WBC (Bld) 0.8 % Normal [facility] Comment on above: Order Comment: Speci men Type: BLOOD SPECIMENOrdering Facility: [facility] Address: [address] [place] [address] Performed By: #### 5 7021-8 ####[facility] LABCLIA [id number] [place] [address] Lymphocytes (Bld) [#/Vol] 0.97 10*3/uL Low 1.00-4.00 [facility] Comment on above: Order Comment: Speci men Type: BLOOD SPECIMENOrdering Facility: [facility] Address: [address] [place] [address] Performed By: #### 5 7021-8 ####[facility] LABCLIA [id number] [place] [address] Lymphocytes/100 WBC (Bld) 16.1 % Normal [facility] Comment on above: Order Comment: Speci men Type: BLOOD SPECIMENOrdering Facility: [facility] Address: [address] [place] [address] Performed By: #### 5 7021-8 ####[facility] LABCLIA [id number] [place] [address] MCH (RBC) [Entitic mass] 34.2 pg High 26.0-34.0 [facility] Comment on above: Order Comment: Speci men Type: BLOOD SPECIMENOrdering Facility: [facility] Address: [address] [place] [address] Performed By: #### 5 7021-8 ####[facility] LABCLIA [id number] [place] [address] MCHC (RBC) [Mass/Vol] 32.2 g/dL Normal 30.5-36.0 [facility] Comment on above: Order Comment: Speci men Type: BLOOD SPECIMENOrdering Facility: [facility] Address: [address] [place] [address] Performed By: #### 5 7021-8 ####[facility] LABCLIA [id number] [place] [address] MCV (RBC) [Entitic vol] 106.1 fL High 80.0-100.0 [facility] Comment on above: Order Comment: Speci men Type: BLOOD SPECIMENOrdering Facility: [facility] Address: [address] [place] [address] Performed By: #### 5 7021-8 ####[facility] LABCLIA [id number] [place] [address] Monocytes (Bld) [#/Vol] 0.64 10*3/uL Normal <0.87 [facility] Comment on above: Order Comment: Speci men Type: BLOOD SPECIMENOrdering Facility: [facility] Address: [address] [place] [address] Performed By: #### 5 7021-8 ####[facility] LABCLIA [id number] [place] [address] Monocytes/100 WBC (Bld) 10.6 % Normal [facility] Comment on above: Order Comment: Speci men Type: BLOOD SPECIMENOrdering Facility: [facility] Address: [address] [place] [address] Performed By: #### 5 7021-8 ####[facility] LABCLIA [id number] [place] [address] Neutrophils (Bld) [#/Vol] 4.06 10*3/uL Normal 1.45-7.50 [facility] Comment on above: Order Comment: Speci men Type: BLOOD SPECIMENOrdering Facility: [facility] Address: [address] [place] [address] Performed By: #### 5 7021-8 ####[facility] LABCLIA [id number] [place] [address] Neutrophils/100 WBC (Bld) 67.2 % Normal [facility] Comment on above: Order Comment: Speci men Type: BLOOD SPECIMENOrdering Facility: [facility] Address: [address] [place] [address] Performed By: #### 5 7021-8 ####[facility] LABCLIA [id number] [place] [address] Nucleated RBC (Bld) [#/Vol] 10*3/uL Normal <0.01 [facility] Comment on above: Order Comment: Speci men Type: BLOOD SPECIMENOrdering Facility: [facility] Address: [address] [place] [address] Performed By: #### 5 7021-8 ####[facility] LABCLIA [id number] [place] [address] Nucleated RBC/100 WBC (Bld) [Ratio] 0.0 /100 WBC Normal [facility] Comment on above: Order Comment: Speci men Type: BLOOD SPECIMENOrdering Facility: [facility] Address: [address] [place] [address] Performed By: #### 5 7021-8 ####[facility] LABCLIA [id number] [place] [address] Platelet mean volume (Bld) [Entitic vol] 9.1 fL Normal 9.0-12.7 [facility] Comment on above: Order Comment: Speci men Type: BLOOD SPECIMENOrdering Facility: [facility] Address: [address] [place] [address] Performed By: #### 5 7021-8 ####[facility] LABCLIA [id number] [place] [address] Platelets (Bld) [#/Vol] 292 10*3/uL Normal 150-400 [facility] Comment on above: Order Comment: Speci men Type: BLOOD SPECIMENOrdering Facility: [facility] Address: [address] [place] [address] Performed By: #### 5 7021-8 ####[facility] LABCLIA [id number] [place] [address] RBC (Bld) [#/Vol] 2.78 10*6/uL Low 3.90-5.20 [facility] Comment on above: Order Comment: Speci men Type: BLOOD SPECIMENOrdering Facility: [facility] Address: [address] [place] [address] Performed By: #### 5 7021-8 ####[facility] LABIA [id number] [place] [address] WBC (Bld) [#/Vol] 6.04 10*3/uL Normal 3.70-11.00 [facility] Comment on above: Order Comment: Speci men Type: BLOOD SPECIMENOrdering Facility: [facility] Address: [address] [place] [address] Performed By: #### 5 7021-8 ####[facility] LABIA [id number] [place] [address] CBC W Auto Differential pane l (Bld)on 06-09-2023 Basophils (Bld) [#/Vol] 10*3/uL Normal <0.11 [facility] Comment on above: Order Comment: Speci men Type: BLOOD SPECIMENOrdering Facility: [facility] Address: [address] [place] [address] Performed By: #### 5 7021-8 ####[facility] LABIA [id number] [place] [address] Basophils/100 WBC (Bld) 0.2 % Normal [facility] Comment on above: Order Comment: Speci men Type: BLOOD SPECIMENOrdering Facility: [facility] Address: [address] [place] [address] Performed By: #### 5 7021-8 ####[facility] LABCLIA [id number] [place] [address] Differential cell count method Nom (Bld) Auto Normal [facility] Comment on above: Order Comment: Speci men Type: BLOOD SPECIMENOrdering Facility: [facility] Address: [address] [place] [address] Performed By: #### 5 7021-8 ####[facility] LABCLIA [id number] [place] [address] Eosinophils (Bld) [#/Vol] 0.28 10*3/uL Normal <0.46 [facility] Comment on above: Order Comment: Speci men Type: BLOOD SPECIMENOrdering Facility: [facility] Address: [address] [place] [address] Performed By: #### 5 7021-8 ####[facility] LABCLIA [id number] [place] [address] Eosinophils/100 WBC (Bld) 3.5 % Normal [facility] Comment on above: Order Comment: Speci men Type: BLOOD SPECIMENOrdering Facility: [facility] Address: [address] [place] [address] Performed By: #### 5 7021-8 ####[facility] LABCLIA [id number] [place] [address] Erythrocyte distribution width (RBC) [Ratio] 19.9 % High 11.5-15.0 [facility] Comment on above: Order Comment: Speci men Type: BLOOD SPECIMENOrdering Facility: [facility] Address: [address] [place] [address] Performed By: #### 5 7021-8 ####[facility] LABCLIA [id number] [place] [address] Hematocrit (Bld) [Volume fraction] 29.2 % Low 36.0-46.0 [facility] Comment on above: Order Comment: Speci men Type: BLOOD SPECIMENOrdering Facility: [facility] Address: [address] [place] [address] Performed By: #### 5 7021-8 ####[facility] LABCLIA [id number] [place] [address] Hemoglobin (Bld) [Mass/Vol] 9.2 g/dL Low 11.5-15.5 [facility] Comment on above: Order Comment: Speci men Type: BLOOD SPECIMENOrdering Facility: [facility] Address: [address] [place] [address] Performed By: #### 5 7021-8 ####[facility] LABCLIA [id number] [place] [address] Immature granulocytes (Bld) [#/Vol] 0.08 10*3/uL Normal <0.10 [facility] Comment on above: Order Comment: Speci men Type: BLOOD SPECIMENOrdering Facility: [facility] Address: [address] [place] [address] Performed By: #### 5 7021-8 ####[facility] LABCLIA [id number] [place] [address] Immature granulocytes/100 WBC (Bld) 1.0 % Normal [facility] Comment on above: Order Comment: Speci men Type: BLOOD SPECIMENOrdering Facility: [facility] Address: [address] [place] [address] Performed By: #### 5 7021-8 ####[facility] LABCLIA [id number] [place] [address] Lymphocytes (Bld) [#/Vol] 0.89 10*3/uL Low 1.00-4.00 [facility] Comment on above: Order Comment: Speci men Type: BLOOD SPECIMENOrdering Facility: [facility] Address: [address] [place] [address] Performed By: #### 5 7021-8 ####[facility] LABCLIA [id number] [place] [address] Lymphocytes/100 WBC (Bld) 11.0 % Normal [facility] Comment on above: Order Comment: Speci men Type: BLOOD SPECIMENOrdering Facility: [facility] Address: [address] [place] [address] Performed By: #### 5 7021-8 ####[facility] LABCLIA [id number] [place] [address] MCH (RBC) [Entitic mass] 33.5 pg Normal 26.0-34.0 [facility] Comment on above: Order Comment: Speci men Type: BLOOD SPECIMENOrdering Facility: [facility] Address: [address] [place] [address] Performed By: #### 5 7021-8 ####[facility] LABCLIA [id number] [place] [address] MCHC (RBC) [Mass/Vol] 31.5 g/dL Normal 30.5-36.0 [facility] Comment on above: Order Comment: Speci men Type: BLOOD SPECIMENOrdering Facility: [facility] Address: [address] [place] [address] Performed By: #### 5 7021-8 ####[facility] LABCLIA [id number] [place] [address] MCV (RBC) [Entitic vol] 106.2 fL High 80.0-100.0 [facility] Comment on above: Order Comment: Speci men Type: BLOOD SPECIMENOrdering Facility: [facility] Address: [address] [place] [address] Performed By: #### 5 7021-8 ####[facility] LABCLIA [id number] [place] [address] Monocytes (Bld) [#/Vol] 0.40 10*3/uL Normal <0.87 [facility] Comment on above: Order Comment: Speci men Type: BLOOD SPECIMENOrdering Facility: [facility] Address: [address] [place] [address] Performed By: #### 5 7021-8 ####[facility] LABCLIA [id number] [place] [address] Monocytes/100 WBC (Bld) 4.9 % Normal [facility] Comment on above: Order Comment: Speci men Type: BLOOD SPECIMENOrdering Facility: [facility] Address: [address] [place] [address] Performed By: #### 5 7021-8 ####[facility] LABCLIA [id number] [place] [address] Neutrophils (Bld) [#/Vol] 6.42 10*3/uL Normal 1.45-7.50 [facility] Comment on above: Order Comment: Speci men Type: BLOOD SPECIMENOrdering Facility: [facility] Address: [address] [place] [address] Performed By: #### 5 7021-8 ####[facility] LABCLIA [id number] [place] [address] Neutrophils/100 WBC (Bld) 79.4 % Normal [facility] Comment on above: Order Comment: Speci men Type: BLOOD SPECIMENOrdering Facility: [facility] Address: [address] [place] [address] Performed By: #### 5 7021-8 ####[facility] LABCLIA [id number] [place] [address] Nucleated RBC (Bld) [#/Vol] 10*3/uL Normal <0.01 [facility] Comment on above: Order Comment: Speci men Type: BLOOD SPECIMENOrdering Facility: [facility] Address: [address] [place] [address] Performed By: #### 5 7021-8 ####[facility] LABCLIA [id number] [place] [address] Nucleated RBC/100 WBC (Bld) [Ratio] 0.0 /100 WBC Normal [facility] Comment on above: Order Comment: Speci men Type: BLOOD SPECIMENOrdering Facility: [facility] Address: [address] [place] [address] Performed By: #### 5 7021-8 ####[facility] LABCLIA [id number] [place] [address] Platelet mean volume (Bld) [Entitic vol] 9.2 fL Normal 9.0-12.7 [facility] Comment on above: Order Comment: Speci men Type: BLOOD SPECIMENOrdering Facility: [facility] Address: [address] [place] [address] Performed By: #### 5 7021-8 ####[facility] LABCLIA [id number] [place] [address] Platelets (Bld) [#/Vol] 273 10*3/uL Normal 150-400 [facility] Comment on above: Order Comment: Speci men Type: BLOOD SPECIMENOrdering Facility: [facility] Address: [address] [place] [address] Performed By: #### 5 7021-8 ####[facility] LABCLIA [id number] [place] [address] RBC (Bld) [#/Vol] 2.75 10*6/uL Low 3.90-5.20 [facility] Comment on above: Order Comment: Speci men Type: BLOOD SPECIMENOrdering Facility: [facility] Address: [address] [place] [address] Performed By: #### 5 7021-8 ####[facility] LABCLIA [id number] [place] [address] WBC (Bld) [#/Vol] 8.09 10*3/uL Normal 3.70-11.00 [facility] Comment on above: Order Comment: Speci men Type: BLOOD SPECIMENOrdering Facility: [facility] Address: [address] [place] [address] Performed By: #### 5 7021-8 ####[facility] LABCLIA [id number] [place] [address] Comprehensive metabolic 2000 panelon 06-09-2023 Albumin [Mass/Vol] 3.4 g/dL Low 3.9-4.9 [facility] Comment on above: Order Comment: Speci men Type: BLOOD SPECIMENOrdering Facility: [facility] Address: [address] [place] [address] Performed By: #### 2 4323-8 ####[facility] LABCLIA [id number] [place] [address] ALP [Catalytic activity/Vol] 59 U/L Normal 34-123 [facility] Comment on above: Order Comment: Speci men Type: BLOOD SPECIMENOrdering Facility: [facility] Address: [address] [place] [address] Performed By: #### 2 4323-8 ####[facility] LABCLIA [id number] [place] [address] ALT [Catalytic activity/Vol] 8 U/L Normal 7-38 [facility] Comment on above: Order Comment: Speci men Type: BLOOD SPECIMENOrdering Facility: [facility] Address: [address] [place] [address] Performed By: #### 2 4323-8 ####[facility] LABCLIA [id number] [place] [address] Anion gap [Moles/Vol] 12 mmol/L Normal 9-18 [facility] Comment on above: Order Comment: Speci men Type: BLOOD SPECIMENOrdering Facility: [facility] Address: [address] [place] [address] Performed By: #### 2 4323-8 ####[facility] LABCLIA [id number] [place] [address] AST [Catalytic activity/Vol] 12 U/L Low 13-35 [facility] Comment on above: Order Comment: Speci men Type: BLOOD SPECIMENOrdering Facility: [facility] Address: [address] [place] [address] Performed By: #### 2 4323-8 ####[facility] LABCLIA [id number] [place] [address] Bilirubin [Mass/Vol] 0.4 mg/dL Normal 0.2-1.3 [facility] Comment on above: Order Comment: Speci men Type: BLOOD SPECIMENOrdering Facility: [facility] Address: [address] [place] [address] Performed By: #### 2 4323-8 ####[facility] LABCLIA [id number] [place] [address] Calcium [Mass/Vol] 9.6 mg/dL Normal 8.5-10.2 [facility] Comment on above: Order Comment: Speci men Type: BLOOD SPECIMENOrdering Facility: [facility] Address: [address] [place] [address] Performed By: #### 2 4323-8 ####[facility] LABCLIA [id number] [place] [address] Chloride [Moles/Vol] 101 mmol/L Normal 97-105 [facility] Comment on above: Order Comment: Speci men Type: BLOOD SPECIMENOrdering Facility: [facility] Address: [address] [place] [address] Performed By: #### 2 4323-8 ####[facility] LABCLIA [id number] [place] [address] CO2 [Moles/Vol] 29 mmol/L Normal 22-30 [facility] Comment on above: Order Comment: Speci men Type: BLOOD SPECIMENOrdering Facility: [facility] Address: [address] [place] [address] Performed By: #### 2 4323-8 ####[facility] LABCLIA [id number] [place] [address] Creatinine [Mass/Vol] 13.64 mg/dL High 0.58-0.96 [facility] Comment on above: Order Comment: Speci men Type: BLOOD SPECIMENOrdering Facility: [facility] Address: [address] [place] [address] Performed By: #### 2 4323-8 ####[facility] LABCLIA [id number] [place] [address] Creatinine and Glomerular filtration rate.predicted panel (S/P/Bld) 3 mL/min/1.73m??? Low >=60 [facility] Comment on above: Order Comment: Speci men Type: BLOOD SPECIMENOrdering Facility: [facility] Address: [address] [place] [address] Result Comment: Rylee mated Glomerular Filtration Rate (eGFR) is calculated using the 2020 CKD-EPI creatinine equation. This equation utilizes serum creatinine, sex, and age as parameters. The creatinine assay has traceable calibration to isotope dilution-mass spectrometry. Refer to KDIGO guidelines for clinical interpretation. In patients with unstable renal function, e.g. those with acute kidney injury, the eGFR may not accurately reflect actual GFR. Performed By: #### 2 4323-8 ####[facility] LABCLIA [id number] [place] [address] Glucose [Mass/Vol] 134 mg/dL High 74-99 [facility] Comment on above: Order Comment: Speci men Type: BLOOD SPECIMENOrdering Facility: [facility] Address: [address] [place] [id number] Result Comment: The [place] [employer] (ADA) provides guidance for cutoff values for fasting glucose and random glucose. The ADA defines fasting as no caloric intake for at least 8 hours. Fasting plasma glucose results between 100 to 125 mg/dL indicate increased risk for diabetes (prediabetes).Fasting plasma glucose results greater than or equal to 126 mg/dL meet the criteria for diagnosis of diabetes. In the absence of unequivocal hyperglycemia, results should be confirmed by repeat testing. In a patient with classic symptoms of hyperglycemia or hyperglycemic crisis, random plasma glucose results greater than or equal to 200 mg/dL meet the criteria for diagnosis of diabetes.Reference: Standards of Medical Care in Diabetes 2016, [place] [employer]. Diabetes Care. 2016.39(Suppl 1). Performed By: #### 2 4323-8 ####[facility] LABCLIA [id number] [place] [address] Potassium [Moles/Vol] 3.8 mmol/L Normal 3.7-5.1 [facility] Comment on above: Order Comment: Speci men Type: BLOOD SPECIMENOrdering Facility: [facility] Address: [address] [place] [address] Performed By: #### 2 4323-8 ####[facility] LABCLIA [id number] [place] [address] Protein [Mass/Vol] 5.2 g/dL Low 6.3-8.0 [facility] Comment on above: Order Comment: Speci men Type: BLOOD SPECIMENOrdering Facility: [facility] Address: [address] [place] [address] Performed By: #### 2 4323-8 ####[facility] LABCLIA [id number] [place] [address] Sodium [Moles/Vol] 142 mmol/L Normal 136-144 [facility] Comment on above: Order Comment: Speci men Type: BLOOD SPECIMENOrdering Facility: [facility] Address: [address] [place] [address] Performed By: #### 2 4323-8 ####[facility] LABCLIA [id number] [place] [address] Urea nitrogen [Mass/Vol] 41 mg/dL High 7-21 [facility] Comment on above: Order Comment: Speci men Type: BLOOD SPECIMENOrdering Facility: [facility] Address: [address] [place] [address] Performed By: #### 2 4323-8 ####[facility] LABCLIA [id number] [place] [address] [facility] Ferritin [Mass/Vol] 551.0 ng/mL High 14.7-205.1 [facility] Comment on above: Order Comment: Speci men Type: BLOOD SPECIMENOrdering Facility: [facility] Address: [address] [place] [address] Performed By: #### 5 0190-8, 9, 2275-06, 8 ####[facility] LABCLIA [id number] [place] [address] [place] Folate [facility]Pl[facility] Folate [Mass/Vol] ng/mL Normal >4.7 [facility] Comment on above: Order Comment: Speci men Type: BLOOD SPECIMENOrdering Facility: [facility] Address: [address] [place] [address] Result Comment: A re sult of > 20 ng/mL is not necessarily indicative of a pathologic or treatable condition: it reflects a limitation of the test methodology.Assay reference range: 4.8 to 24.2 ng/mL. Suitable for detection of folate deficiency.Reference:Folate III (Folate III) [package insert V 1.0 German]. [facility], [place], [place]: January 2015. Performed By: #### 5 0190-8, 2131-11, 2275-06, 2283-10 ####[facility] LABCLIA [id number] [place] [id number] [place] Iron and Iron binding capaci panelon 06-09-2023 Iron [Mass/Vol] 46 ug/dL Normal 41-186 [facility] Comment on above: Order Comment: Speci men Type: BLOOD SPECIMENOrdering Facility: [facility] Address: [address] [place] [address] Performed By: #### 5 01908, 2131-11, 2275-06, 2283-10 ####[facility] LABCLIA [id number] [place] [id number] [place] Iron binding capacity [Mass/Vol] 163 ug/dL Low 232-386 [facility] Comment on above: Order Comment: Speci men Type: BLOOD SPECIMENOrdering Facility: [facility] Address: [address] [place] [address] Performed By: #### 5 0190-8, 2131-11, 2275-06, 2283-10 ####[facility] LABIA [id number] [place] [address] [place] Iron/TIBC [Molar ratio] 28.2 % Normal 15.0-57.0 [facility] Comment on above: Order Comment: Speci men Type: BLOOD SPECIMENOrdering Facility: [facility] Address: [address] [place] [address] Performed By: #### 5 0190-8, 2131-11, 2275-06, 2283-10 ####[facility] LABIA [id number] [place] [address] [place] Vit B12 SerPl-mCncon 024 Cobalamin (Vitamin B12) [Mass/Vol] 632 pg/mL Normal 232-1245 [facility] Comment on above: Order Comment: Speci men Type: BLOOD SPECIMENOrdering Facility: [facility] Address: [address] [place] [address] Performed By: #### 5 0190-8, 2131-11, 2275-06, 2283-10 ####[facility] LABIA [id number] [place] [id number] [place] lamoTRIgine SerPl-mCncon lamoTRIgine [Mass/Vol] 5.4 ug/mL Normal 1.0-13.0 [facility] Comment on above: Order Comment: Speci men Type: BLOOD SPECIMENOrdering Facility: [facility] Address: [address] [place] [address] Result Comment: This test was developed and its performance characteristics determined by [facility] Pathology and Laboratory Medicine [place] ([facility]). It has not been cleared or approved by the FDA. -[facility] is regulated under CLIA as qualified to perform high-complexity testing. This test is used for clinical purposes. It should not be regarded as investigational or for research. Performed By: #### 6 948-4 ####[facility] LABCLIA [id number] [place] [address] [place] CBC W Auto Differential pane l (Bld)on 06-02-2023 Basophils (Bld) [#/Vol] 0.05 10*3/uL Normal <0.11 [facility] Comment on above: Order Comment: Speci men Type: BLOOD SPECIMENOrdering Facility: [facility] Address: [address] [place] [address] Performed By: #### 5 7021-8 ####[facility] LABCLIA [id number] [place] [address] Basophils/100 WBC (Bld) 0.7 % Normal [facility] Comment on above: Order Comment: Speci men Type: BLOOD SPECIMENOrdering Facility: [facility] Address: [address] [place] [address] Performed By: #### 5 7021-8 ####[facility] LABCLIA [id number] [place] [address] Differential cell count method Nom (Bld) Auto Normal [facility] Comment on above: Order Comment: Speci men Type: BLOOD SPECIMENOrdering Facility: [facility] Address: [address] [place] [address] Performed By: #### 5 7021-8 ####[facility] LABCLIA [id number] [place] [address] Eosinophils (Bld) [#/Vol] 0.28 10*3/uL Normal <0.46 [facility] Comment on above: Order Comment: Speci men Type: BLOOD SPECIMENOrdering Facility: [facility] Address: [address] [place] [address] Performed By: #### 5 7021-8 ####[facility] LABCLIA [id number] [place] [address] Eosinophils/100 WBC (Bld) 3.8 % Normal [facility] Comment on above: Order Comment: Speci men Type: BLOOD SPECIMENOrdering Facility: [facility] Address: [address] [place] [address] Performed By: #### 5 7021-8 ####[facility] LABCLIA [id number] [place] [address] Erythrocyte distribution width (RBC) [Ratio] 18.6 % High 11.5-15.0 [facility] Comment on above: Order Comment: Speci men Type: BLOOD SPECIMENOrdering Facility: [facility] Address: [address] [place] [address] Performed By: #### 5 7021-8 ####[facility] LABCLIA [id number] [place] [address] Hematocrit (Bld) [Volume fraction] 29.7 % Low 36.0-46.0 [facility] Comment on above: Order Comment: Speci men Type: BLOOD SPECIMENOrdering Facility: [facility] Address: [address] [place] [address] Performed By: #### 5 7021-8 ####[facility] LABCLIA [id number] [place] [address] Hemoglobin (Bld) [Mass/Vol] 9.6 g/dL Low 11.5-15.5 [facility] Comment on above: Order Comment: Speci men Type: BLOOD SPECIMENOrdering Facility: [facility] Address: [address] [place] [address] Performed By: #### 5 7021-8 ####[facility] LABCLIA [id number] [place] [address] Immature granulocytes (Bld) [#/Vol] 0.11 10*3/uL High <0.10 [facility] Comment on above: Order Comment: Speci men Type: BLOOD SPECIMENOrdering Facility: [facility] Address: [address] [place] [address] Performed By: #### 5 7021-8 ####[facility] LABCLIA [id number] [place] [address] Immature granulocytes/100 WBC (Bld) 1.5 % Normal [facility] Comment on above: Order Comment: Speci men Type: BLOOD SPECIMENOrdering Facility: [facility] Address: [address] [place] [address] Performed By: #### 5 7021-8 ####[facility] LABCLIA [id number] [place] [address] Lymphocytes (Bld) [#/Vol] 1.28 10*3/uL Normal 1.00-4.00 [facility] Comment on above: Order Comment: Speci men Type: BLOOD SPECIMENOrdering Facility: [facility] Address: [address] [place] [address] Performed By: #### 5 7021-8 ####[facility] LABCLIA [id number] [place] [address] Lymphocytes/100 WBC (Bld) 17.4 % Normal [facility] Comment on above: Order Comment: Speci men Type: BLOOD SPECIMENOrdering Facility: [facility] Address: [address] [place] [address] Performed By: #### 5 7021-8 ####[facility] LABCLIA [id number] [place] [address] MCH (RBC) [Entitic mass] 33.2 pg Normal 26.0-34.0 [facility] Comment on above: Order Comment: Speci men Type: BLOOD SPECIMENOrdering Facility: [facility] Address: [address] [place] [address] Performed By: #### 5 7021-8 ####[facility] LABCLIA [id number] [place] [address] MCHC (RBC) [Mass/Vol] 32.3 g/dL Normal 30.5-36.0 [facility] Comment on above: Order Comment: Speci men Type: BLOOD SPECIMENOrdering Facility: [facility] Address: [address] [place] [address] Performed By: #### 5 7021-8 ####[facility] LABCLIA [id number] [place] [address] MCV (RBC) [Entitic vol] 102.8 fL High 80.0-100.0 [facility] Comment on above: Order Comment: Speci men Type: BLOOD SPECIMENOrdering Facility: [facility] Address: [address] [place] [address] Performed By: #### 5 7021-8 ####[facility] LABCLIA [id number] [place] [address] Monocytes (Bld) [#/Vol] 0.66 10*3/uL Normal <0.87 [facility] Comment on above: Order Comment: Speci men Type: BLOOD SPECIMENOrdering Facility: [facility] Address: [address] [place] [address] Performed By: #### 5 7021-8 ####[facility] LABCLIA [id number] [place] [address] Monocytes/100 WBC (Bld) 9.0 % Normal [facility] Comment on above: Order Comment: Speci men Type: BLOOD SPECIMENOrdering Facility: [facility] Address: [address] [place] [address] Performed By: #### 5 7021-8 ####[facility] LABCLIA [id number] [place] [address] Neutrophils (Bld) [#/Vol] 4.96 10*3/uL Normal 1.45-7.50 [facility] Comment on above: Order Comment: Speci men Type: BLOOD SPECIMENOrdering Facility: [facility] Address: [address] [place] [address] Performed By: #### 5 7021-8 ####[facility] LABCLIA [id number] [place] [address] Neutrophils/100 WBC (Bld) 67.6 % Normal [facility] Comment on above: Order Comment: Speci men Type: BLOOD SPECIMENOrdering Facility: [facility] Address: [address] [place] [address] Performed By: #### 5 7021-8 ####[facility] LABCLIA [id number] [place] [address] Nucleated RBC (Bld) [#/Vol] 10*3/uL Normal <0.01 [facility] Comment on above: Order Comment: Speci men Type: BLOOD SPECIMENOrdering Facility: [facility] Address: [address] [place] [address] Performed By: #### 5 7021-8 ####[facility] LABCLIA [id number] [place] [address] Nucleated RBC/100 WBC (Bld) [Ratio] 0.0 /100 WBC Normal [facility] Comment on above: Order Comment: Speci men Type: BLOOD SPECIMENOrdering Facility: [facility] Address: [address] [place] [address] Performed By: #### 5 7021-8 ####[facility] LABCLIA [id number] [place] [address] Platelet mean volume (Bld) [Entitic vol] 9.5 fL Normal 9.0-12.7 [facility] Comment on above: Order Comment: Speci men Type: BLOOD SPECIMENOrdering Facility: [facility] Address: [address] [place] [address] Performed By: #### 5 7021-8 ####[facility] LABCLIA [id number] [place] [address] Platelets (Bld) [#/Vol] 276 10*3/uL Normal 150-400 [facility] Comment on above: Order Comment: Speci men Type: BLOOD SPECIMENOrdering Facility: [facility] Address: [address] [place] [address] Performed By: #### 5 7021-8 ####[facility] LABIA [id number] [place] [address] RBC (Bld) [#/Vol] 2.89 10*6/uL Low 3.90-5.20 [facility] Comment on above: Order Comment: Speci men Type: BLOOD SPECIMENOrdering Facility: [facility] Address: [address] [place] [address] Performed By: #### 5 7021-8 ####[facility] LABIA [id number] [place] [address] WBC (Bld) [#/Vol] 7.34 10*3/uL Normal 3.70-11.00 [facility] Comment on above: Order Comment: Speci men Type: BLOOD SPECIMENOrdering Facility: [facility] Address: [address] [place] [address] Performed By: #### 5 7021-8 ####[facility] LABIA [id number] [place] [address] CNPNon 05-28-2023 CNPN Normal [facility] CNOVon 05-27-2023 CNOV Normal [facility] CBC W Auto Differential pane l (Bld)on 05-26-2023 Anisocytosis Ql (Bld) Present Normal [facility] Comment on above: Order Comment: Speci men Type: BLOOD SPECIMENOrdering Facility: [facility] Address: [address] [place] [address] Performed By: #### 5 7021-8 ####[facility] LABCLIA [id number] [place] [address] LABCLIA [id number] [place] [address] [place] Basophils (Bld) [#/Vol] 0.10 10*3/uL Normal <0.11 [facility] Comment on above: Order Comment: Speci men Type: BLOOD SPECIMENOrdering Facility: [facility] Address: [address] [place] [address] Performed By: #### 5 7021-8 ####[facility] LABCLIA [id number] [address] LABCLIA [id number] [place] [address] [place] Basophils/100 WBC (Bld) 1.0 % Normal [facility] Comment on above: Order Comment: Speci men Type: BLOOD SPECIMENOrdering Facility: [facility] Address: [address] [place] [address] Performed By: #### 5 7021-8 ####[facility] LABCLIA [id number] [address] LABCLIA [id number] [place] [address] [place] Differential cell count method Nom (Bld) Manual Normal [facility] Comment on above: Order Comment: Speci men Type: BLOOD SPECIMENOrdering Facility: [facility] Address: [address] [place] [address] Performed By: #### 5 7021-8 ####[facility] LABCLIA [id number] [address] LABCLIA [id number] [place] [address] [place] Eosinophils (Bld) [#/Vol] 0.31 10*3/uL Normal <0.46 [facility] Comment on above: Order Comment: Speci men Type: BLOOD SPECIMENOrdering Facility: [facility] Address: [address] [place] [address] Performed By: #### 5 7021-8 ####[facility] LABCLIA [id number] [place] [address] LABCLIA [id number] [place] [address] [place] Eosinophils/100 WBC (Bld) 3.0 % Normal [facility] Comment on above: Order Comment: Speci men Type: BLOOD SPECIMENOrdering Facility: [facility] Address: [address] [place] [address] Performed By: #### 5 7021-8 ####[facility] LABCLIA [id number] [address] LABCLIA [id number] [place] [address] [place] Erythrocyte distribution width (RBC) [Ratio] 17.7 % High 11.5-15.0 [facility] Comment on above: Order Comment: Speci men Type: BLOOD SPECIMENOrdering Facility: [facility] Address: [address] [place] [address] Performed By: #### 5 7021-8 ####[facility] LABCLIA [id number] [place] [address] LABCLIA [id number] [place] [address] [place] Hematocrit (Bld) [Volume fraction] 28.7 % Low 36.0-46.0 [facility] Comment on above: Order Comment: Speci men Type: BLOOD SPECIMENOrdering Facility: [facility] Address: [address] [place] [address] Performed By: #### 5 7021-8 ####[facility] LABCLIA [id number] [address] LABCLIA [id number] [place] [address] [place] Hemoglobin (Bld) [Mass/Vol] 9.5 g/dL Low 11.5-15.5 [facility] Comment on above: Order Comment: Speci men Type: BLOOD SPECIMENOrdering Facility: [facility] Address: [address] [place] [address] Performed By: #### 5 7021-8 ####[facility] LABCLIA [id number] [address] LABCLIA [id number] [place] [address] [place] Lymphocytes (Bld) [#/Vol] 1.02 10*3/uL Normal 1.00-4.00 [facility] Comment on above: Order Comment: Speci men Type: BLOOD SPECIMENOrdering Facility: [facility] Address: [address] [place] [address] Performed By: #### 5 7021-8 ####[facility] LABCLIA [id number] [address] LABCLIA [id number] [place] [address] [place] Lymphocytes/100 WBC (Bld) 10.0 % Normal [facility] Comment on above: Order Comment: Speci men Type: BLOOD SPECIMENOrdering Facility: [facility] Address: [address] [place] [address] Performed By: #### 5 7021-8 ####[facility] LABCLIA [id number] [address] LABCLIA [id number] [place] [address] [place] MCH (RBC) [Entitic mass] 34.1 pg High 26.0-34.0 [facility] Comment on above: Order Comment: Speci men Type: BLOOD SPECIMENOrdering Facility: [facility] Address: [address] [place] [address] Performed By: #### 5 7021-8 ####[facility] LABCLIA [id number] [place] [address] LABCLIA [id number] [place] [address] [place] MCHC (RBC) [Mass/Vol] 33.1 g/dL Normal 30.5-36.0 [facility] Comment on above: Order Comment: Speci men Type: BLOOD SPECIMENOrdering Facility: [facility] Address: [address] [place] [address] Performed By: #### 5 7021-8 ####[facility] LABCLIA [id number] [address] LABCLIA [id number] [place] [address] [place] MCV (RBC) [Entitic vol] 102.9 fL High 80.0-100.0 [facility] Comment on above: Order Comment: Speci men Type: BLOOD SPECIMENOrdering Facility: [facility] Address: [address] [place] [address] Performed By: #### 5 7021-8 ####[facility] LABCLIA [id number] [place] [address] LABCLIA [id number] [place] [address] [place] Metamyelocytes/100 WBC (Bld) 1.0 % Normal [facility] Comment on above: Order Comment: Speci men Type: BLOOD SPECIMENOrdering Facility: [facility] Address: [address] [place] [address] Performed By: #### 5 7021-8 ####[facility] LABCLIA [id number] [address] LABCLIA [id number] [place] [address] [place] Monocytes (Bld) [#/Vol] 0.31 10*3/uL Normal <0.87 [facility] Comment on above: Order Comment: Speci men Type: BLOOD SPECIMENOrdering Facility: [facility] Address: [address] [place] [address] Performed By: #### 5 7021-8 ####[facility] LABCLIA [id number] [address] LABCLIA [id number] [place] [address] [place] Monocytes/100 WBC (Bld) 3.0 % Normal [facility] Comment on above: Order Comment: Speci men Type: BLOOD SPECIMENOrdering Facility: [facility] Address: [address] [place] [address] Performed By: #### 5 7021-8 ####[facility] LABCLIA [id number] [address] LABCLIA [id number] [place] [address] [place] Neutrophils (Bld) [#/Vol] 8.37 10*3/uL High 1.45-7.50 [facility] Comment on above: Order Comment: Speci men Type: BLOOD SPECIMENOrdering Facility: [facility] Address: [address] [place] [address] Performed By: #### 5 7021-8 ####[facility] LABCLIA [id number] [address] LABCLIA [id number] [place] [address] [place] Neutrophils/100 WBC (Bld) 82.0 % Normal [facility] Comment on above: Order Comment: Speci men Type: BLOOD SPECIMENOrdering Facility: [facility] Address: [address] [place] [address] Performed By: #### 5 7021-8 ####[facility] LABCLIA [id number] [address] LABCLIA [id number] [place] [address] [place] Nucleated RBC (Bld) [#/Vol] 10*3/uL Normal <0.01 [facility] Comment on above: Order Comment: Speci men Type: BLOOD SPECIMENOrdering Facility: [facility] Address: [address] [place] [address] Performed By: #### 5 7021-8 ####[facility] LABCLIA [id number] [address] LABCLIA [id number] [place] [address] [place] Nucleated RBC/100 WBC (Bld) [Ratio] 0.0 /100 WBC Normal [facility] Comment on above: Order Comment: Speci men Type: BLOOD SPECIMENOrdering Facility: [facility] Address: [address] [place] [address] Performed By: #### 5 7021-8 ####[facility] LABCLIA [id number] [address] LABCLIA [id number] [place] [address] [place] Ovalocytes LM Ql (Bld) Few Normal [facility] Comment on above: Order Comment: Speci men Type: BLOOD SPECIMENOrdering Facility: [facility] Address: [address] [place] [address] Performed By: #### 5 7021-8 ####[facility] LABCLIA [id number] [address] LABCLIA [id number] [place] [address] [place] Platelet mean volume (Bld) [Entitic vol] 9.2 fL Normal 9.0-12.7 [facility] Comment on above: Order Comment: Speci men Type: BLOOD SPECIMENOrdering Facility: [facility] Address: [address] [place] [address] Performed By: #### 5 7021-8 ####[facility] LABCLIA [id number] [place] [address] LABCLIA [id number] [place] [address] [place] Platelets (Bld) [#/Vol] 487 10*3/uL High 150-400 [facility] Comment on above: Order Comment: Speci men Type: BLOOD SPECIMENOrdering Facility: [facility] Address: [address] [place] [address] Performed By: #### 5 7021-8 ####[facility] LABCLIA [id number] [address] LABCLIA [id number] [address] [address] [place] Platelets Estimate (Bld) [#/Vol] Increased Normal [facility] Comment on above: Order Comment: Speci men Type: BLOOD SPECIMENOrdering Facility: [facility] Address: [address] [place] [address] Performed By: #### 5 7021-8 ####[facility] LABCLIA [id number] [address] LABCLIA [id number] [address] [address] [place] Polychromasia LM Ql (Bld) Slight Normal [facility] Comment on above: Order Comment: Speci men Type: BLOOD SPECIMENOrdering Facility: [facility] Address: [address] [place] [address] Performed By: #### 5 7021-8 ####[facility] LABCLIA [id number] [place] [address] LABCLIA [id number] [place] [address] [place] RBC (Bld) [#/Vol] 2.79 10*6/uL Low 3.90-5.20 [facility] Comment on above: Order Comment: Speci men Type: BLOOD SPECIMENOrdering Facility: [facility] Address: [address] [place] [address] Performed By: #### 5 7021-8 ####[facility] LABCLIA [id number] [address] LABCLIA [id number] [place] [address] [place] RBC FRAGMENTS Few Abnormal None Seen [facility] Comment on above: Order Comment: Speci men Type: BLOOD SPECIMENOrdering Facility: [facility] Address: [address] [place] [address] Performed By: #### 5 7021-8 ####[facility] LABCLIA [id number] [address] LABCLIA [id number] [place] [address] [place] RED CELL MORPH Reviewed: see result s of individual morphologies Normal [facility] Comment on above: Order Comment: Speci men Type: BLOOD SPECIMENOrdering Facility: [facility] Address: [address] [place] [address] Performed By: #### 5 7021-8 ####[facility] LABCLIA [id number] [address] LABCLIA [id number] [place] [address] [place] WBC (Bld) [#/Vol] 10.21 10*3/uL Normal 3.70-11.00 [facility] Comment on above: Order Comment: Speci men Type: BLOOD SPECIMENOrdering Facility: [facility] Address: [address] [place], [place] [address] Performed By: #### 5 7021-8 ####[facility] LABCLIA [id number] [place], [place] [address]FD[facility] LABCLIA [id number] [place] [address] [place] WBC Left Shift Ql (Bld) Present Normal [facility] Comment on above: Order Comment: Speci men Type: BLOOD SPECIMENOrdering Facility: [facility] Address: [address] [place] [address] Performed By: #### 5 7021-8 ####[facility] LABCLIA [id number] [address] LABCLIA [id number] [place] [address] [place] CNOVSPon 05-26-2023 CNOVSP Normal [facility] Comprehensive metabolic 2000 panelon 05-26-2023 Albumin [Mass/Vol] 3.4 g/dL Low 3.9-4.9 [facility] Comment on above: Order Comment: Speci men Type: BLOOD SPECIMENOrdering Facility: [facility] Address: [address] [place] [address] Performed By: #### 2 4323-8 ####[facility] LABCLIA [id number] [place] [address] ALP [Catalytic activity/Vol] 78 U/L Normal 34-123 [facility] Comment on above: Order Comment: Speci men Type: BLOOD SPECIMENOrdering Facility: [facility] Address: [address] [place] [address] Performed By: #### 2 4323-8 ####[facility] LABCLIA [id number] [place] [address] ALT [Catalytic activity/Vol] 11 U/L Normal 7-38 [facility] Comment on above: Order Comment: Speci men Type: BLOOD SPECIMENOrdering Facility: [facility] Address: [address] [place] [address] Performed By: #### 2 4323-8 ####[facility] LABCLIA [id number] [place] [address] Anion gap [Moles/Vol] 16 mmol/L Normal 9-18 [facility] Comment on above: Order Comment: Speci men Type: BLOOD SPECIMENOrdering Facility: [facility] Address: [address] [place], [place] [address] Performed By: #### 2 4323-8 ####[facility] LABCLIA [id number] [place] [address] AST [Catalytic activity/Vol] 14 U/L Normal 13-35 [facility] Comment on above: Order Comment: Speci men Type: BLOOD SPECIMENOrdering Facility: [facility] Address: [address] [place] [address] Performed By: #### 2 4323-8 ####[facility] LABCLIA [id number] [place] [address] Bilirubin [Mass/Vol] 0.3 mg/dL Normal 0.2-1.3 [facility] Comment on above: Order Comment: Speci men Type: BLOOD SPECIMENOrdering Facility: [facility] Address: [address] [place], [place] [address] Performed By: #### 2 4323-8 ####[facility] LABCLIA [id number] [place] [address] Calcium [Mass/Vol] 9.5 mg/dL Normal 8.5-10.2 [facility] Comment on above: Order Comment: Speci men Type: BLOOD SPECIMENOrdering Facility: [facility] Address: [address] [place], [place] [address] Performed By: #### 2 4323-8 ####[facility] LABCLIA [id number] [place] [address] Chloride [Moles/Vol] 97 mmol/L Normal 97-105 [facility] Comment on above: Order Comment: Speci men Type: BLOOD SPECIMENOrdering Facility: [facility] Address: [address] [place] [address] Performed By: #### 2 4323-8 ####[facility] LABCLIA [id number] [place] [address] CO2 [Moles/Vol] 29 mmol/L Normal 22-30 [facility] Comment on above: Order Comment: Speci men Type: BLOOD SPECIMENOrdering Facility: [facility] Address: [address] [place] [address] Performed By: #### 2 4323-8 ####[facility] LABCLIA [id number] [place] [address] Creatinine [Mass/Vol] 16.09 mg/dL High 0.58-0.96 [facility] Comment on above: Order Comment: Speci men Type: BLOOD SPECIMENOrdering Facility: [facility] Address: [address] [place] [address] Performed By: #### 2 4323-8 ####[facility] LABCLIA [id number] [place] [address] Creatinine and Glomerular filtration rate.predicted panel (S/P/Bld) 3 mL/min/1.73m??? Low >=60 [facility] Comment on above: Order Comment: Speci men Type: BLOOD SPECIMENOrdering Facility: [facility] Address: [address] [place] [address] Result Comment: Rylee mated Glomerular Filtration Rate (eGFR) is calculated using the 2020 CKD-EPI creatinine equation. This equation utilizes serum creatinine, sex, and age as parameters. The creatinine assay has traceable calibration to isotope dilution-mass spectrometry. Refer to KDIGO guidelines for clinical interpretation. In patients with unstable renal function, e.g. those with acute kidney injury, the eGFR may not accurately reflect actual GFR. Performed By: #### 2 4323-8 ####[facility] LABCLIA [id number] [place] [address] Glucose [Mass/Vol] 92 mg/dL Normal 74-99 [facility] Comment on above: Order Comment: Speci men Type: BLOOD SPECIMENOrdering Facility: [facility] Address: [address] [place], [place] [id number] Result Comment: The [place] Diabetes Association (ADA) provides guidance for cutoff values for fasting glucose and random glucose. The ADA defines fasting as no caloric intake for at least 8 hours. Fasting plasma glucose results between 100 to 125 mg/dL indicate increased risk for diabetes (prediabetes).Fasting plasma glucose results greater than or equal to 126 mg/dL meet the criteria for diagnosis of diabetes. In the absence of unequivocal hyperglycemia, results should be confirmed by repeat testing. In a patient with classic symptoms of hyperglycemia or hyperglycemic crisis, random plasma glucose results greater than or equal to 200 mg/dL meet the criteria for diagnosis of diabetes.Reference: Standards of Medical Care in Diabetes 2016, [place] [employer]. Diabetes Care. 2016.39(Suppl 1). Performed By: #### 2 4323-8 ####[facility] LABCLIA [id number] [place] [address] Potassium [Moles/Vol] 3.6 mmol/L Low 3.7-5.1 [facility] Comment on above: Order Comment: Speci men Type: BLOOD SPECIMENOrdering Facility: [facility] Address: [address] [place] [address] Performed By: #### 2 4323-8 ####[facility] LABCLIA [id number] [place] [address] Protein [Mass/Vol] 5.3 g/dL Low 6.3-8.0 [facility] Comment on above: Order Comment: Speci men Type: BLOOD SPECIMENOrdering Facility: [facility] Address: [address] [place], [place] [id number] Performed By: #### 2 4323-8 ####[facility] LABCLIA [id number] [place] [address] Sodium [Moles/Vol] 142 mmol/L Normal 136-144 [facility] Comment on above: Order Comment: Speci men Type: BLOOD SPECIMENOrdering Facility: [facility] Address: [address] [place] [address] Performed By: #### 2 4323-8 ####[facility] LABCLIA [id number] [place] [id number] Urea nitrogen [Mass/Vol] 36 mg/dL High 7-21 [facility] Comment on above: Order Comment: Speci men Type: BLOOD SPECIMENOrdering Facility: [facility] Address: [address] [place] [address] Performed By: #### 2 4323-8 ####[facility] LABCLIA [id number] [place] [address] CBC W Auto Differential pane l (Bld)on 05-18-2023 Basophils (Bld) [#/Vol] 0.00 10*3/uL Normal <0.11 [facility] Comment on above: Order Comment: Speci men Type: BLOOD SPECIMENOrdering Facility: [facility] Address: [address] [place] [address] Performed By: #### 5 7021-8 ####[facility] LABCLIA [id number] [address] LABCLIA [id number] [place] [id number] [place] Basophils/100 WBC (Bld) 0.0 % Normal [facility] Comment on above: Order Comment: Speci men Type: BLOOD SPECIMENOrdering Facility: [facility] Address: [address] [place], [place] [id number] Performed By: #### 5 7021-8 ####[facility] LABCLIA [id number] [place] [address] LABCLIA [id number] [place] [id number] [place] Dacrocytes LM Ql (Bld) Few Normal [facility] Comment on above: Order Comment: Speci men Type: BLOOD SPECIMENOrdering Facility: [facility] Address: [address] [place] [address] Performed By: #### 5 7021-8 ####[facility] LABCLIA [id number] [address] LABCLIA [id number] [place] [address] [place] Differential cell count method Nom (Bld) Manual Normal [facility] Comment on above: Order Comment: Speci men Type: BLOOD SPECIMENOrdering Facility: [facility] Address: [address] [place] [address] Performed By: #### 5 7021-8 ####[facility] LABCLIA [id number] [address] LABCLIA [id number] [place] [address] [place] Eosinophils (Bld) [#/Vol] 0.26 10*3/uL Normal <0.46 [facility] Comment on above: Order Comment: Speci men Type: BLOOD SPECIMENOrdering Facility: [facility] Address: [address] [place] [address] Performed By: #### 5 7021-8 ####[facility] LABCLIA [id number] [address] LABCLIA [id number] [place] [address] [place] Eosinophils/100 WBC (Bld) 4.0 % Normal [facility] Comment on above: Order Comment: Speci men Type: BLOOD SPECIMENOrdering Facility: [facility] Address: [address] [place] [address] Performed By: #### 5 7021-8 ####[facility] LABCLIA [id number] [place] [address] LABCLIA [id number] [place] [address] [place] Erythrocyte distribution width (RBC) [Ratio] 17.2 % High 11.5-15.0 [facility] Comment on above: Order Comment: Speci men Type: BLOOD SPECIMENOrdering Facility: [facility] Address: [address] [place] [address] Performed By: #### 5 7021-8 ####[facility] LABCLIA [id number] [address] LABCLIA [id number] [place] [address] [place] Hematocrit (Bld) [Volume fraction] 28.5 % Low 36.0-46.0 [facility] Comment on above: Order Comment: Speci men Type: BLOOD SPECIMENOrdering Facility: [facility] Address: [address] [place] [address] Performed By: #### 5 7021-8 ####[facility] LABCLIA [id number] [address] LABCLIA [id number] [place] [address] [place] Hemoglobin (Bld) [Mass/Vol] 9.3 g/dL Low 11.5-15.5 [facility] Comment on above: Order Comment: Speci men Type: BLOOD SPECIMENOrdering Facility: [facility] Address: [address] [place] [address] Performed By: #### 5 7021-8 ####[facility] LABCLIA [id number] [address] LABCLIA [id number] [place] [address] [place] Lymphocytes (Bld) [#/Vol] 1.49 10*3/uL Normal 1.00-4.00 [facility] Comment on above: Order Comment: Speci men Type: BLOOD SPECIMENOrdering Facility: [facility] Address: [address] [place] [address] Performed By: #### 5 7021-8 ####[facility] LABCLIA [id number] [address] LABCLIA [id number] [place] [address] [place] Lymphocytes/100 WBC (Bld) 23.0 % Normal [facility] Comment on above: Order Comment: Speci men Type: BLOOD SPECIMENOrdering Facility: [facility] Address: [address] [place] [address] Performed By: #### 5 7021-8 ####[facility] LABCLIA [id number] [address] LABCLIA [id number] [place] [address] [place] MCH (RBC) [Entitic mass] 33.2 pg Normal 26.0-34.0 [facility] Comment on above: Order Comment: Speci men Type: BLOOD SPECIMENOrdering Facility: [facility] Address: [address] [place] [address] Performed By: #### 5 7021-8 ####[facility] LABCLIA [id number] [address] LABCLIA [id number] [place] [address] [place] MCHC (RBC) [Mass/Vol] 32.6 g/dL Normal 30.5-36.0 [facility] Comment on above: Order Comment: Speci men Type: BLOOD SPECIMENOrdering Facility: [facility] Address: [address] [place] [address] Performed By: #### 5 7021-8 ####[facility] LABCLIA [id number] [place] [address] LABCLIA [id number] [place] [address] [place] MCV (RBC) [Entitic vol] 101.8 fL High 80.0-100.0 [facility] Comment on above: Order Comment: Speci men Type: BLOOD SPECIMENOrdering Facility: [facility] Address: [address] [place] [address] Performed By: #### 5 7021-8 ####[facility] LABCLIA [id number] [address] LABCLIA [id number] [place] [address] [place] Monocytes (Bld) [#/Vol] 0.45 10*3/uL Normal <0.87 [facility] Comment on above: Order Comment: Speci men Type: BLOOD SPECIMENOrdering Facility: [facility] Address: [address] [place] [address] Performed By: #### 5 7021-8 ####[facility] LABCLIA [id number] [address] LABCLIA [id number] [place] [address] [place] Monocytes/100 WBC (Bld) 7.0 % Normal [facility] Comment on above: Order Comment: Speci men Type: BLOOD SPECIMENOrdering Facility: [facility] Address: [address] [place] [address] Performed By: #### 5 7021-8 ####[facility] LABCLIA [id number] [address] LABCLIA [id number] [place] [address] [place] MYELO% 1.0 % Normal [facility] Comment on above: Order Comment: Speci men Type: BLOOD SPECIMENOrdering Facility: [facility] Address: [address] [place] [address] Performed By: #### 5 7021-8 ####[facility] LABCLIA [id number] [place] [address] LABCLIA [id number] [facility] [address] [address] [place] Neutrophils (Bld) [#/Vol] 4.21 10*3/uL Normal 1.45-7.50 [facility] Comment on above: Order Comment: Speci men Type: BLOOD SPECIMENOrdering Facility: [facility] Address: [address] [place] [address] Performed By: #### 5 7021-8 ####[facility] LABCLIA [id number] [address] LABCLIA [id number] [place] [address] [place] Neutrophils/100 WBC (Bld) 65.0 % Normal [facility] Comment on above: Order Comment: Speci men Type: BLOOD SPECIMENOrdering Facility: [facility] Address: [address] [place] [address] Performed By: #### 5 7021-8 ####[facility] LABCLIA [id number] [place] [address] LABCLIA [id number] [place] [address] [place] Nucleated RBC (Bld) [#/Vol] 10*3/uL Normal <0.01 [facility] Comment on above: Order Comment: Speci men Type: BLOOD SPECIMENOrdering Facility: [facility] Address: [address] [place] [address] Performed By: #### 5 7021-8 ####[facility] LABCLIA [id number] [address] LABCLIA [id number] [place] [address] [place] Nucleated RBC/100 WBC (Bld) [Ratio] 0.0 /100 WBC Normal [facility] Comment on above: Order Comment: Speci men Type: BLOOD SPECIMENOrdering Facility: [facility] Address: [address] [place] [address] Performed By: #### 5 7021-8 ####[facility] LABCLIA [id number] [address] LABCLIA [id number] [place] [address] [place] Ovalocytes LM Ql (Bld) Few Normal [facility] Comment on above: Order Comment: Speci men Type: BLOOD SPECIMENOrdering Facility: [facility] Address: [address] [place] [address] Performed By: #### 5 7021-8 ####[facility] LABCLIA [id number] [address] LABCLIA [id number] [place] [address] [place] Platelet mean volume (Bld) [Entitic vol] 9.0 fL Normal 9.0-12.7 [facility] Comment on above: Order Comment: Speci men Type: BLOOD SPECIMENOrdering Facility: [facility] Address: [address] [place] [address] Performed By: #### 5 7021-8 ####[facility] LABCLIA [id number] [address] LABCLIA [id number] [place] [address] [place] Platelets (Bld) [#/Vol] 337 10*3/uL Normal 150-400 [facility] Comment on above: Order Comment: Speci men Type: BLOOD SPECIMENOrdering Facility: [facility] Address: [address] [place] [address] Performed By: #### 5 7021-8 ####[facility] LABCLIA [id number] [place] [address] LABCLIA [id number] [place] [address] [place] Platelets Estimate (Bld) [#/Vol] Adequate Normal [facility] Comment on above: Order Comment: Speci men Type: BLOOD SPECIMENOrdering Facility: [facility] Address: [address] [place] [address] Performed By: #### 5 7021-8 ####[facility] LABCLIA [id number] [address] LABCLIA [id number] [place] [address] [place] RBC (Bld) [#/Vol] 2.80 10*6/uL Low 3.90-5.20 [facility] Comment on above: Order Comment: Speci men Type: BLOOD SPECIMENOrdering Facility: [facility] Address: [address] [place] [address] Performed By: #### 5 7021-8 ####[facility] LABCLIA [id number] [address] LABCLIA [id number] [place] [address] [place] RBC FRAGMENTS Few Abnormal None Seen [facility] Comment on above: Order Comment: Speci men Type: BLOOD SPECIMENOrdering Facility: [facility] Address: [address] [place] [address] Performed By: #### 5 7021-8 ####[facility] LABCLIA [id number] [address] LABCLIA [id number] [place] [address] [place] RED CELL MORPH Reviewed: see result s of individual morphologies Normal [facility] Comment on above: Order Comment: Speci men Type: BLOOD SPECIMENOrdering Facility: [facility] Address: [address] [place] [address] Performed By: #### 5 7021-8 ####[facility] LABCLIA [id number] [place] [address] LABCLIA [id number] [place] [address] [place] WBC (Bld) [#/Vol] 6.48 10*3/uL Normal 3.70-11.00 [facility] Comment on above: Order Comment: Speci men Type: BLOOD SPECIMENOrdering Facility: [facility] Address: [address] [place] [address] Performed By: #### 5 7021-8 ####[facility] LABCLIA [id number] [address] LABCLIA [id number] [place] [address] [place] WBC Left Shift Ql (Bld) Present Normal [facility] Comment on above: Order Comment: Speci men Type: BLOOD SPECIMENOrdering Facility: [facility] Address: [address] [place] [address] Performed By: #### 5 7021-8 ####[facility] LABCLIA [id number] [place] [address] LABCLIA [id number] [place] [address] [place] Comprehensive metabolic 2000 panelon 05-18-2023 Albumin [Mass/Vol] 3.0 g/dL Low 3.9-4.9 [facility] Comment on above: Order Comment: Speci men Type: BLOOD SPECIMENOrdering Facility: [facility] Address: [address] [place] [address] Performed By: #### 2 4323-8 ####[facility] LABCLIA [id number] [place] [address] ALP [Catalytic activity/Vol] 66 U/L Normal 34-123 [facility] Comment on above: Order Comment: Speci men Type: BLOOD SPECIMENOrdering Facility: [facility] Address: [address] [place] [address] Performed By: #### 2 4323-8 ####[facility] LABCLIA [id number] [place] [address] ALT [Catalytic activity/Vol] 9 U/L Normal 7-38 [facility] Comment on above: Order Comment: Speci men Type: BLOOD SPECIMENOrdering Facility: [facility] Address: [address] [place] [address] Performed By: #### 2 4323-8 ####[facility] LABCLIA [id number] [place] [address] Anion gap [Moles/Vol] 16 mmol/L Normal 9-18 [facility] Comment on above: Order Comment: Speci men Type: BLOOD SPECIMENOrdering Facility: [facility] Address: [address] [place] [address] Performed By: #### 2 4323-8 ####[facility] LABCLIA [id number] [place] [address] AST [Catalytic activity/Vol] 12 U/L Low 13-35 [facility] Comment on above: Order Comment: Speci men Type: BLOOD SPECIMENOrdering Facility: [facility] Address: [address] [place] [address] Performed By: #### 2 4323-8 ####[facility] LABCLIA [id number] [place] [address] Bilirubin [Mass/Vol] 0.3 mg/dL Normal 0.2-1.3 [facility] Comment on above: Order Comment: Speci men Type: BLOOD SPECIMENOrdering Facility: [facility] Address: [address] [place] [address] Performed By: #### 2 4323-8 ####[facility] LABCLIA [id number] [place] [address] Calcium [Mass/Vol] 9.5 mg/dL Normal 8.5-10.2 [facility] Comment on above: Order Comment: Speci men Type: BLOOD SPECIMENOrdering Facility: [facility] Address: [address] [place] [address] Performed By: #### 2 4323-8 ####[facility] LABCLIA [id number] [place] [address] Chloride [Moles/Vol] 102 mmol/L Normal 97-105 [facility] Comment on above: Order Comment: Speci men Type: BLOOD SPECIMENOrdering Facility: [facility] Address: [address] [place] [address] Performed By: #### 2 4323-8 ####[facility] LABCLIA [id number] [place] [address] CO2 [Moles/Vol] 25 mmol/L Normal 22-30 [facility] Comment on above: Order Comment: Speci men Type: BLOOD SPECIMENOrdering Facility: [facility] Address: [address] [place] [address] Performed By: #### 2 4323-8 ####[facility] LABCLIA [id number] [place] [address] Creatinine [Mass/Vol] 20.26 mg/dL High 0.58-0.96 [facility] Comment on above: Order Comment: Speci men Type: BLOOD SPECIMENOrdering Facility: [facility] Address: [address] [place] [address] Performed By: #### 2 4323-8 ####[facility] LABCLIA [id number] [place] [address] Creatinine and Glomerular filtration rate.predicted panel (S/P/Bld) 2 mL/min/1.73m??? Low >=60 [facility] Comment on above: Order Comment: Speci men Type: BLOOD SPECIMENOrdering Facility: [facility] Address: [address] [place] [id number] Result Comment: Rylee mated Glomerular Filtration Rate (eGFR) is calculated using the 2020 CKD-EPI creatinine equation. This equation utilizes serum creatinine, sex, and age as parameters. The creatinine assay has traceable calibration to isotope dilution-mass spectrometry. Refer to KDIGO guidelines for clinical interpretation. In patients with unstable renal function, e.g. those with acute kidney injury, the eGFR may not accurately reflect actual GFR. Performed By: #### 2 4323-8 ####[facility] LABCLIA [id number] [place] [address] Glucose [Mass/Vol] 109 mg/dL High 74-99 [facility] Comment on above: Order Comment: Isaiah mitchell Type: BLOOD SPECIMENOrdering Facility: [facility] Address: [address] [place] [address] Result Comment: The [place] Diabetes [employer] (ADA) provides guidance for cutoff values for fasting glucose and random glucose. The ADA defines fasting as no caloric intake for at least 8 hours. Fasting plasma glucose results between 100 to 125 mg/dL indicate increased risk for diabetes (prediabetes).Fasting plasma glucose results greater than or equal to 126 mg/dL meet the criteria for diagnosis of diabetes. In the absence of unequivocal hyperglycemia, results should be confirmed by repeat testing. In a patient with classic symptoms of hyperglycemia or hyperglycemic crisis, random plasma glucose results greater than or equal to 200 mg/dL meet the criteria for diagnosis of diabetes.Reference: Standards of Medical Care in Diabetes 2016, [place] [employer]. Diabetes Care. 2016.39(Suppl 1). Performed By: #### 2 4323-8 ####[facility] LABCLIA [id number] [place] [address] Potassium [Moles/Vol] 3.8 mmol/L Normal 3.7-5.1 [facility] Comment on above: Order Comment: Isaiah mitchell Type: BLOOD SPECIMENOrdering Facility: [facility] Address: [address] [place] [id number] Performed By: #### 2 4323-8 ####[facility] LABCLIA [id number] [place] [address] Protein [Mass/Vol] 5.2 g/dL Low 6.3-8.0 [facility] Comment on above: Order Comment: Speci men Type: BLOOD SPECIMENOrdering Facility: [facility] Address: [address] [place] [address] Performed By: #### 2 4323-8 ####[facility] LABCLIA [id number] [place] [address] Sodium [Moles/Vol] 143 mmol/L Normal 136-144 [facility] Comment on above: Order Comment: Speci men Type: BLOOD SPECIMENOrdering Facility: [facility] Address: [address] [place] [address] Performed By: #### 2 4323-8 ####[facility] LABCLIA [id number] [place] [address] Urea nitrogen [Mass/Vol] 66 mg/dL High 7-21 [facility] Comment on above: Order Comment: Speci men Type: BLOOD SPECIMENOrdering Facility: [facility] Address: [address] [place] [address] Performed By: #### 2 4323-8 ####[facility] LABCLIA [id number] [place] [address] CBC W Auto Differential pane l (Bld)on 05-05-2023 Basophils (Bld) [#/Vol] 0.03 10*3/uL Normal <0.11 [facility] Comment on above: Order Comment: Speci men Type: BLOOD SPECIMENOrdering Facility: [facility] Address: [address] [place] [address] Performed By: #### 5 7021-8 ####[facility] LABCLIA [id number] [place] [address] Basophils/100 WBC (Bld) 0.4 % Normal [facility] Comment on above: Order Comment: Speci men Type: BLOOD SPECIMENOrdering Facility: [facility] Address: [address] [place] [address] Performed By: #### 5 7021-8 ####[facility] LABCLIA [id number] [place] [address] Differential cell count method Nom (Bld) Auto Normal [facility] Comment on above: Order Comment: Speci men Type: BLOOD SPECIMENOrdering Facility: [facility] Address: [address] [place] [address] Performed By: #### 5 7021-8 ####[facility] LABCLIA [id number] [place] [address] Eosinophils (Bld) [#/Vol] 0.27 10*3/uL Normal <0.46 [facility] Comment on above: Order Comment: Speci men Type: BLOOD SPECIMENOrdering Facility: [facility] Address: [address] [place] [address] Performed By: #### 5 7021-8 ####[facility] LABCLIA [id number] [place] [address] Eosinophils/100 WBC (Bld) 3.6 % Normal [facility] Comment on above: Order Comment: Speci men Type: BLOOD SPECIMENOrdering Facility: [facility] Address: [address] [place] [address] Performed By: #### 5 7021-8 ####[facility] LABCLIA [id number] [place] [address] Erythrocyte distribution width (RBC) [Ratio] 17.3 % High 11.5-15.0 [facility] Comment on above: Order Comment: Speci men Type: BLOOD SPECIMENOrdering Facility: [facility] Address: [address] [place] [address] Performed By: #### 5 7021-8 ####[facility] LABCLIA [id number] [place] [address] Hematocrit (Bld) [Volume fraction] 30.4 % Low 36.0-46.0 [facility] Comment on above: Order Comment: Speci men Type: BLOOD SPECIMENOrdering Facility: [facility] Address: [address] [place] [address] Performed By: #### 5 7021-8 ####[facility] LABCLIA [id number] [place] [address] Hemoglobin (Bld) [Mass/Vol] 10.1 g/dL Low 11.5-15.5 [facility] Comment on above: Order Comment: Speci men Type: BLOOD SPECIMENOrdering Facility: [facility] Address: [address] [place] [address] Performed By: #### 5 7021-8 ####[facility] LABCLIA [id number] [place] [address] Immature granulocytes (Bld) [#/Vol] 0.12 10*3/uL High <0.10 [facility] Comment on above: Order Comment: Speci men Type: BLOOD SPECIMENOrdering Facility: [facility] Address: [address] [place] [address] Performed By: #### 5 7021-8 ####[facility] LABCLIA [id number] [place] [address] Immature granulocytes/100 WBC (Bld) 1.6 % Normal [facility] Comment on above: Order Comment: Speci men Type: BLOOD SPECIMENOrdering Facility: [facility] Address: [address] [place] [address] Performed By: #### 5 7021-8 ####[facility] LABCLIA [id number] [place] [address] Lymphocytes (Bld) [#/Vol] 1.47 10*3/uL Normal 1.00-4.00 [facility] Comment on above: Order Comment: Speci men Type: BLOOD SPECIMENOrdering Facility: [facility] Address: [address] [place] [address] Performed By: #### 5 7021-8 ####[facility] LABCLIA [id number] [place] [address] Lymphocytes/100 WBC (Bld) 19.4 % Normal [facility] Comment on above: Order Comment: Speci men Type: BLOOD SPECIMENOrdering Facility: [facility] Address: [address] [place] [address] Performed By: #### 5 7021-8 ####[facility] LABCLIA [id number] [place] [address] MCH (RBC) [Entitic mass] 33.7 pg Normal 26.0-34.0 [facility] Comment on above: Order Comment: Speci men Type: BLOOD SPECIMENOrdering Facility: [facility] Address: [address] [place] [address] Performed By: #### 5 7021-8 ####[facility] LABCLIA [id number] [place] [address] MCHC (RBC) [Mass/Vol] 33.2 g/dL Normal 30.5-36.0 [facility] Comment on above: Order Comment: Speci men Type: BLOOD SPECIMENOrdering Facility: [facility] Address: [address] [place] [address] Performed By: #### 5 7021-8 ####[facility] LABCLIA [id number] [place] [address] MCV (RBC) [Entitic vol] 101.3 fL High 80.0-100.0 [facility] Comment on above: Order Comment: Speci men Type: BLOOD SPECIMENOrdering Facility: [facility] Address: [address] [place] [address] Performed By: #### 5 7021-8 ####[facility] LABCLIA [id number] [place] [address] Monocytes (Bld) [#/Vol] 0.75 10*3/uL Normal <0.87 [facility] Comment on above: Order Comment: Speci men Type: BLOOD SPECIMENOrdering Facility: [facility] Address: [address] [place] [address] Performed By: #### 5 7021-8 ####[facility] LABCLIA [id number] [place] [address] Monocytes/100 WBC (Bld) 9.9 % Normal [facility] Comment on above: Order Comment: Speci men Type: BLOOD SPECIMENOrdering Facility: [facility] Address: [address] [place] [address] Performed By: #### 5 7021-8 ####[facility] LABCLIA [id number] [place] [address] Neutrophils (Bld) [#/Vol] 4.94 10*3/uL Normal 1.45-7.50 [facility] Comment on above: Order Comment: Speci men Type: BLOOD SPECIMENOrdering Facility: [facility] Address: [address] [place] [address] Performed By: #### 5 7021-8 ####[facility] LABCLIA [id number] [place] [address] Neutrophils/100 WBC (Bld) 65.1 % Normal [facility] Comment on above: Order Comment: Speci men Type: BLOOD SPECIMENOrdering Facility: [facility] Address: [address] [place] [address] Performed By: #### 5 7021-8 ####[facility] LABCLIA [id number] [place] [address] Nucleated RBC (Bld) [#/Vol] 10*3/uL Normal <0.01 [facility] Comment on above: Order Comment: Speci men Type: BLOOD SPECIMENOrdering Facility: [facility] Address: [address] [place] [address] Performed By: #### 5 7021-8 ####[facility] LABCLIA [id number] [place] [address] Nucleated RBC/100 WBC (Bld) [Ratio] 0.0 /100 WBC Normal [facility] Comment on above: Order Comment: Speci men Type: BLOOD SPECIMENOrdering Facility: [facility] Address: [address] [place] [address] Performed By: #### 5 7021-8 ####[facility] LABCLIA [id number] [place] [address] Platelet mean volume (Bld) [Entitic vol] 9.0 fL Normal 9.0-12.7 [facility] Comment on above: Order Comment: Speci men Type: BLOOD SPECIMENOrdering Facility: [facility] Address: [address] [place] [address] Performed By: #### 5 7021-8 ####[facility] LABCLIA [id number] [place] [address] Platelets (Bld) [#/Vol] 285 10*3/uL Normal 150-400 [facility] Comment on above: Order Comment: Speci men Type: BLOOD SPECIMENOrdering Facility: [facility] Address: [address] [place] [address] Performed By: #### 5 7021-8 ####[facility] LABCLIA [id number] [place] [address] RBC (Bld) [#/Vol] 3.00 10*6/uL Low 3.90-5.20 [facility] Comment on above: Order Comment: Speci men Type: BLOOD SPECIMENOrdering Facility: [facility] Address: [address] [place] [address] Performed By: #### 5 7021-8 ####[facility] LABIA [id number] [place] [address] WBC (Bld) [#/Vol] 7.58 10*3/uL Normal 3.70-11.00 [facility] Comment on above: Order Comment: Speci men Type: BLOOD SPECIMENOrdering Facility: [facility] Address: [address] [place] [address] Performed By: #### 5 7021-8 ####[facility] LABCLIA [id number] [place] [address] CBC W Auto Differential pane l (Bld)on 04-28-2023 Basophils (Bld) [#/Vol] 0.06 10*3/uL Normal <0.11 [facility] Comment on above: Order Comment: Speci men Type: BLOOD SPECIMENOrdering Facility: [facility] Address: [address] [place] [address] Performed By: #### 5 7021-8 ####[facility] LABIA [id number] [place] [address] Basophils/100 WBC (Bld) 0.7 % Normal [facility] Comment on above: Order Comment: Speci men Type: BLOOD SPECIMENOrdering Facility: [facility] Address: [address] [place] [address] Performed By: #### 5 7021-8 ####[facility] LABCLIA [id number] [place] [address] Differential cell count method Nom (Bld) Auto Normal [facility] Comment on above: Order Comment: Speci men Type: BLOOD SPECIMENOrdering Facility: [facility] Address: [address] [place] [address] Performed By: #### 5 7021-8 ####[facility] LABCLIA [id number] [place] [address] Eosinophils (Bld) [#/Vol] 0.29 10*3/uL Normal <0.46 [facility] Comment on above: Order Comment: Speci men Type: BLOOD SPECIMENOrdering Facility: [facility] Address: [address] [place] [address] Performed By: #### 5 7021-8 ####[facility] LABCLIA [id number] [place] [address] Eosinophils/100 WBC (Bld) 3.4 % Normal [facility] Comment on above: Order Comment: Speci men Type: BLOOD SPECIMENOrdering Facility: [facility] Address: [address] [place] [address] Performed By: #### 5 7021-8 ####[facility] LABCLIA [id number] [place] [address] Erythrocyte distribution width (RBC) [Ratio] 16.0 % High 11.5-15.0 [facility] Comment on above: Order Comment: Speci men Type: BLOOD SPECIMENOrdering Facility: [facility] Address: [address] [place] [address] Performed By: #### 5 7021-8 ####[facility] LABCLIA [id number] [place] [address] Hematocrit (Bld) [Volume fraction] 33.1 % Low 36.0-46.0 [facility] Comment on above: Order Comment: Speci men Type: BLOOD SPECIMENOrdering Facility: [facility] Address: [address] [place] [address] Performed By: #### 5 7021-8 ####[facility] LABCLIA [id number] [place] [address] Hemoglobin (Bld) [Mass/Vol] 10.9 g/dL Low 11.5-15.5 [facility] Comment on above: Order Comment: Speci men Type: BLOOD SPECIMENOrdering Facility: [facility] Address: [address] [place] [address] Performed By: #### 5 7021-8 ####[facility] LABCLIA [id number] [place] [address] Immature granulocytes (Bld) [#/Vol] 0.15 10*3/uL High <0.10 [facility] Comment on above: Order Comment: Speci men Type: BLOOD SPECIMENOrdering Facility: [facility] Address: [address] [place] [address] Performed By: #### 5 7021-8 ####[facility] LABCLIA [id number] [place] [address] Immature granulocytes/100 WBC (Bld) 1.8 % Normal [facility] Comment on above: Order Comment: Speci men Type: BLOOD SPECIMENOrdering Facility: [facility] Address: [address] [place] [address] Performed By: #### 5 7021-8 ####[facility] LABCLIA [id number] [place] [address] Lymphocytes (Bld) [#/Vol] 1.37 10*3/uL Normal 1.00-4.00 [facility] Comment on above: Order Comment: Speci men Type: BLOOD SPECIMENOrdering Facility: [facility] Address: [address] [place] [address] Performed By: #### 5 7021-8 ####[facility] LABCLIA [id number] [place] [address] Lymphocytes/100 WBC (Bld) 16.0 % Normal [facility] Comment on above: Order Comment: Speci men Type: BLOOD SPECIMENOrdering Facility: [facility] Address: [address] [place] [address] Performed By: #### 5 7021-8 ####[facility] LABCLIA [id number] [place] [address] MCH (RBC) [Entitic mass] 32.9 pg Normal 26.0-34.0 [facility] Comment on above: Order Comment: Speci men Type: BLOOD SPECIMENOrdering Facility: [facility] Address: [address] [place] [address] Performed By: #### 5 7021-8 ####[facility] LABCLIA [id number] [place] [address] MCHC (RBC) [Mass/Vol] 32.9 g/dL Normal 30.5-36.0 [facility] Comment on above: Order Comment: Speci men Type: BLOOD SPECIMENOrdering Facility: [facility] Address: [address] [place] [address] Performed By: #### 5 7021-8 ####[facility] LABCLIA [id number] [place] [address] MCV (RBC) [Entitic vol] 100.0 fL Normal 80.0-100.0 [facility] Comment on above: Order Comment: Speci men Type: BLOOD SPECIMENOrdering Facility: [facility] Address: [address] [place] [address] Performed By: #### 5 7021-8 ####[facility] LABCLIA [id number] [place] [address] Monocytes (Bld) [#/Vol] 0.83 10*3/uL Normal <0.87 [facility] Comment on above: Order Comment: Speci men Type: BLOOD SPECIMENOrdering Facility: [facility] Address: [address] [place] [address] Performed By: #### 5 7021-8 ####[facility] LABCLIA [id number] [place] [address] Monocytes/100 WBC (Bld) 9.7 % Normal [facility] Comment on above: Order Comment: Speci men Type: BLOOD SPECIMENOrdering Facility: [facility] Address: [address] [place] [address] Performed By: #### 5 7021-8 ####[facility] LABCLIA [id number] [place] [address] Neutrophils (Bld) [#/Vol] 5.87 10*3/uL Normal 1.45-7.50 [facility] Comment on above: Order Comment: Speci men Type: BLOOD SPECIMENOrdering Facility: [facility] Address: [address] [place] [address] Performed By: #### 5 7021-8 ####[facility] LABCLIA [id number] [place] [address] Neutrophils/100 WBC (Bld) 68.4 % Normal [facility] Comment on above: Order Comment: Speci men Type: BLOOD SPECIMENOrdering Facility: [facility] Address: [address] [place] [address] Performed By: #### 5 7021-8 ####[facility] LABCLIA [id number] [place] [address] Nucleated RBC (Bld) [#/Vol] 10*3/uL Normal <0.01 [facility] Comment on above: Order Comment: Speci men Type: BLOOD SPECIMENOrdering Facility: [facility] Address: [address] [place] [address] Performed By: #### 5 7021-8 ####[facility] LABCLIA [id number] [place] [address] Nucleated RBC/100 WBC (Bld) [Ratio] 0.0 /100 WBC Normal [facility] Comment on above: Order Comment: Speci men Type: BLOOD SPECIMENOrdering Facility: [facility] Address: [address] [place] [address] Performed By: #### 5 7021-8 ####[facility] LABCLIA [id number] [place] [address] Platelet mean volume (Bld) [Entitic vol] 10.1 fL Normal 9.0-12.7 [facility] Comment on above: Order Comment: Speci men Type: BLOOD SPECIMENOrdering Facility: [facility] Address: [address] [place] [address] Performed By: #### 5 7021-8 ####[facility] LABCLIA [id number] [place] [address] Platelets (Bld) [#/Vol] 253 10*3/uL Normal 150-400 [facility] Comment on above: Order Comment: Speci men Type: BLOOD SPECIMENOrdering Facility: [facility] Address: [address] [place] [address] Performed By: #### 5 7021-8 ####[facility] LABCLIA [id number] [place] [address] RBC (Bld) [#/Vol] 3.31 10*6/uL Low 3.90-5.20 [facility] Comment on above: Order Comment: Speci men Type: BLOOD SPECIMENOrdering Facility: [facility] Address: [address] [place] [address] Performed By: #### 5 7021-8 ####[facility] LABCLIA [id number] [place] [address] WBC (Bld) [#/Vol] 8.57 10*3/uL Normal 3.70-11.00 [facility] Comment on above: Order Comment: Speci men Type: BLOOD SPECIMENOrdering Facility: [facility] Address: [address] [place] [address] Performed By: #### 5 7021-8 ####[facility] LABIA [id number] [place] [address] CNOVon 04-28-2023 CNOV Normal [facility] Comprehensive metabolic 2000 panelon 04-28-2023 Albumin [Mass/Vol] 3.9 g/dL Normal 3.9-4.9 [facility] Comment on above: Order Comment: Speci men Type: BLOOD SPECIMENOrdering Facility: [facility] Address: [address] [place] [address] Performed By: #### 2 4323-8 ####[facility] LABCLIA [id number] [place] [address] ALP [Catalytic activity/Vol] 82 U/L Normal 34-123 [facility] Comment on above: Order Comment: Speci men Type: BLOOD SPECIMENOrdering Facility: [facility] Address: [address] [place] [address] Performed By: #### 2 4323-8 ####[facility] LABCLIA [id number] [place] [address] ALT [Catalytic activity/Vol] 15 U/L Normal 7-38 [facility] Comment on above: Order Comment: Speci men Type: BLOOD SPECIMENOrdering Facility: [facility] Address: [address] [place], [place] [address] Performed By: #### 2 4323-8 ####[facility] LABCLIA [id number] [place] [address] Anion gap [Moles/Vol] 15 mmol/L Normal 9-18 [facility] Comment on above: Order Comment: Speci men Type: BLOOD SPECIMENOrdering Facility: [facility] Address: [address] [place] [address] Performed By: #### 2 4323-8 ####[facility] LABCLIA [id number] [place] [address] AST [Catalytic activity/Vol] 23 U/L Normal 13-35 [facility] Comment on above: Order Comment: Speci men Type: BLOOD SPECIMENOrdering Facility: [facility] Address: [address] [place], [place] [address] Performed By: #### 2 4323-8 ####[facility] LABCLIA [id number] [place] [address] Bilirubin [Mass/Vol] 0.5 mg/dL Normal 0.2-1.3 [facility] Comment on above: Order Comment: Speci men Type: BLOOD SPECIMENOrdering Facility: [facility] Address: [address] [place], [place] [address] Performed By: #### 2 4323-8 ####[facility] LABCLIA [id number] [place] [address] Calcium [Mass/Vol] 10.2 mg/dL Normal 8.5-10.2 [facility] Comment on above: Order Comment: Speci men Type: BLOOD SPECIMENOrdering Facility: [facility] Address: [address] [place] [address] Performed By: #### 2 4323-8 ####[facility] LABCLIA [id number] [place] [address] Chloride [Moles/Vol] 94 mmol/L Low 97-105 [facility] Comment on above: Order Comment: Speci men Type: BLOOD SPECIMENOrdering Facility: [facility] Address: [address] [place] [address] Performed By: #### 2 4323-8 ####[facility] LABCLIA [id number] [place] [address] CO2 [Moles/Vol] 28 mmol/L Normal 22-30 [facility] Comment on above: Order Comment: Speci men Type: BLOOD SPECIMENOrdering Facility: [facility] Address: [address] [place] [address] Performed By: #### 2 4323-8 ####[facility] LABCLIA [id number] [place] [address] Creatinine [Mass/Vol] 15.34 mg/dL High 0.58-0.96 [facility] Comment on above: Order Comment: Speci men Type: BLOOD SPECIMENOrdering Facility: [facility] Address: [address] [place] [address] Performed By: #### 2 4323-8 ####[facility] LABCLIA [id number] [place] [address] Creatinine and Glomerular filtration rate.predicted panel (S/P/Bld) 3 mL/min/1.73m??? Low >=60 [facility] Comment on above: Order Comment: Speci men Type: BLOOD SPECIMENOrdering Facility: [facility] Address: [address] [place] [address] Result Comment: Rylee mated Glomerular Filtration Rate (eGFR) is calculated using the 2020 CKD-EPI creatinine equation. This equation utilizes serum creatinine, sex, and age as parameters. The creatinine assay has traceable calibration to isotope dilution-mass spectrometry. Refer to KDIGO guidelines for clinical interpretation. In patients with unstable renal function, e.g. those with acute kidney injury, the eGFR may not accurately reflect actual GFR. Performed By: #### 2 4323-8 ####[facility] LABCLIA [id number] [place] [address] Glucose [Mass/Vol] 180 mg/dL High 74-99 [facility] Comment on above: Order Comment: Isaiah mitchell Type: BLOOD SPECIMENOrdering Facility: [facility] Address: [address] [place] [id number] Result Comment: The [place] [employer] (ADA) provides guidance for cutoff values for fasting glucose and random glucose. The ADA defines fasting as no caloric intake for at least 8 hours. Fasting plasma glucose results between 100 to 125 mg/dL indicate increased risk for diabetes (prediabetes).Fasting plasma glucose results greater than or equal to 126 mg/dL meet the criteria for diagnosis of diabetes. In the absence of unequivocal hyperglycemia, results should be confirmed by repeat testing. In a patient with classic symptoms of hyperglycemia or hyperglycemic crisis, random plasma glucose results greater than or equal to 200 mg/dL meet the criteria for diagnosis of diabetes.Reference: Standards of Medical Care in Diabetes 2016, [place] [employer]. Diabetes Care. 2016.39(Suppl 1). Performed By: #### 2 4323-8 ####[facility] LABCLIA [id number] [place] [address] Potassium [Moles/Vol] 3.4 mmol/L Low 3.7-5.1 [facility] Comment on above: Order Comment: Isaiah mitchell Type: BLOOD SPECIMENOrdering Facility: [facility] Address: [address] [place] [address] Performed By: #### 2 4323-8 ####[facility] LABCLIA [id number] [place] [address] Protein [Mass/Vol] 6.1 g/dL Low 6.3-8.0 [facility] Comment on above: Order Comment: Isaiah mitchell Type: BLOOD SPECIMENOrdering Facility: [facility] Address: [address] [place] [address] Performed By: #### 2 4323-8 ####[facility] LABCLIA [id number] [place] [address] Sodium [Moles/Vol] 137 mmol/L Normal 136-144 [facility] Comment on above: Order Comment: Speci men Type: BLOOD SPECIMENOrdering Facility: [facility] Address: [address] [place] [address] Performed By: #### 2 4323-8 ####[facility] LABCLIA [id number] [place] [address] Urea nitrogen [Mass/Vol] 50 mg/dL High 7-21 [facility] Comment on above: Order Comment: Speci men Type: BLOOD SPECIMENOrdering Facility: [facility] Address: [address] [place] [address] Performed By: #### 2 4323-8 ####[facility] LABCLIA [id number] [place] [address] Ferritin SerPl-mCncon 2023 Ferritin [Mass/Vol] 1005.0 ng/mL High 14.7-205.1 [facility] Comment on above: Order Comment: Speci men Type: BLOOD SPECIMENOrdering Facility: [facility] Address: [address] [place] [address] Performed By: #### 5 0190-8, 2132-9, 2276-4, 2284-8 ####[facility] LABCLIA [id number] [place] [address] [place] Folate SerPl-mCncon 04-28-19 24 Folate [Mass/Vol] ng/mL Normal >4.7 [facility] Comment on above: Order Comment: Speci men Type: BLOOD SPECIMENOrdering Facility: [facility] Address: [address] [place] [address] Result Comment: A re sult of > 20 ng/mL is not necessarily indicative of a pathologic or treatable condition: it reflects a limitation of the test methodology.Assay reference range: 4.8 to 24.2 ng/mL. Suitable for detection of folate deficiency.Reference:Folate III (Folate III) [package insert V 1.0 German]. [facility], [place], [place]: January 2015. Performed By: #### 5 0190-8, 9, 4, 2283-10 ####[facility] LABCLIA [id number] [place] [address] [place] Iron and Iron binding capaci ty panelon 04-28-2023 Iron [Mass/Vol] 101 ug/dL Normal 41-186 [facility] Comment on above: Order Comment: Speci men Type: BLOOD SPECIMENOrdering Facility: [facility] Address: [address] [place] [address] Performed By: #### 5 0190-8, 9, 2275-06, 2283-10 ####[facility] LABIA [id number] [place] [address] [place] Iron binding capacity [Mass/Vol] 184 ug/dL Low 232-386 [facility] Comment on above: Order Comment: Speci men Type: BLOOD SPECIMENOrdering Facility: [facility] Address: [address] [place] [address] Performed By: #### 5 0190-8, 9, 2275-06, 2283-10 ####[facility] LABIA [id number] [place] [address] [place] Iron/TIBC [Molar ratio] 54.9 % Normal 15.0-57.0 [facility] Comment on above: Order Comment: Speci men Type: BLOOD SPECIMENOrdering Facility: [facility] Address: [address] [place] [address] Performed By: #### 5 0190-8, 9, 2275-06, 2283-10 ####[facility] LABIA [id number] [place] [address] [place] Vit B12 SerPl-mCncon 14-2 024 Cobalamin (Vitamin B12) [Mass/Vol] 565 pg/mL Normal 232-1245 [facility] Comment on above: Order Comment: Speci men Type: BLOOD SPECIMENOrdering Facility: [facility] Address: [address] [place] [address] Performed By: #### 5 0190-8, 2132-9, 2276-4, 2284-8 ####[facility] LABCLIA [id number] [place] [address] [place] CBC W Auto Differential pane l (Bld)on 04-21-2023 Basophils (Bld) [#/Vol] 0.05 10*3/uL Normal <0.11 [facility] Comment on above: Order Comment: Speci men Type: BLOOD SPECIMENOrdering Facility: [facility] Address: [address] [place] [address] Performed By: #### 5 7021-8 ####[facility] LABCLIA [id number] [place] [address] Basophils/100 WBC (Bld) 0.7 % Normal [facility] Comment on above: Order Comment: Speci men Type: BLOOD SPECIMENOrdering Facility: [facility] Address: [address] [place] [address] Performed By: #### 5 7021-8 ####[facility] LABCLIA [id number] [place] [address] Differential cell count method Nom (Bld) Auto Normal [facility] Comment on above: Order Comment: Speci men Type: BLOOD SPECIMENOrdering Facility: [facility] Address: [address] [place] [address] Performed By: #### 5 7021-8 ####[facility] LABCLIA [id number] [place] [address] Eosinophils (Bld) [#/Vol] 0.43 10*3/uL Normal <0.46 [facility] Comment on above: Order Comment: Speci men Type: BLOOD SPECIMENOrdering Facility: [facility] Address: [address] [place] [address] Performed By: #### 5 7021-8 ####[facility] [facility] LABCLIA [id number] [place] [address] Eosinophils/100 WBC (Bld) 5.7 % Normal [facility] Comment on above: Order Comment: Speci men Type: BLOOD SPECIMENOrdering Facility: [facility] Address: [address] [place] [address] Performed By: #### 5 7021-8 ####[facility] LABCLIA [id number] [place] [address] Erythrocyte distribution width (RBC) [Ratio] 16.9 % High 11.5-15.0 [facility] Comment on above: Order Comment: Speci men Type: BLOOD SPECIMENOrdering Facility: [facility] Address: [address] [place] [address] Performed By: #### 5 7021-8 ####[facility] LABCLIA [id number] [place] [address] Hematocrit (Bld) [Volume fraction] 36.0 % Normal 36.0-46.0 [facility] Comment on above: Order Comment: Speci men Type: BLOOD SPECIMENOrdering Facility: [facility] Address: [address] [place] [address] Performed By: #### 5 7021-8 ####[facility] LABCLIA [id number] [place] [address] Hemoglobin (Bld) [Mass/Vol] 11.6 g/dL Normal 11.5-15.5 [facility] Comment on above: Order Comment: Speci men Type: BLOOD SPECIMENOrdering Facility: [facility] Address: [address] [place] [address] Performed By: #### 5 7021-8 ####[facility] LABCLIA [id number] [place] [address] Immature granulocytes (Bld) [#/Vol] 0.12 10*3/uL High <0.10 [facility] Comment on above: Order Comment: Speci men Type: BLOOD SPECIMENOrdering Facility: [facility] Address: [address] [place] [address] Performed By: #### 5 7021-8 ####[facility] LABCLIA [id number] [place] [address] Immature granulocytes/100 WBC (Bld) 1.6 % Normal [facility] Comment on above: Order Comment: Speci men Type: BLOOD SPECIMENOrdering Facility: [facility] Address: [address] [place] [address] Performed By: #### 5 7021-8 ####[facility] LABCLIA [id number] [place] [address] Lymphocytes (Bld) [#/Vol] 1.18 10*3/uL Normal 1.00-4.00 [facility] Comment on above: Order Comment: Speci men Type: BLOOD SPECIMENOrdering Facility: [facility] Address: [address] [place] [address] Performed By: #### 5 7021-8 ####[facility] LABCLIA [id number] [place] [address] Lymphocytes/100 WBC (Bld) 15.6 % Normal [facility] Comment on above: Order Comment: Speci men Type: BLOOD SPECIMENOrdering Facility: [facility] Address: [address] [place] [address] Performed By: #### 5 7021-8 ####[facility] LABCLIA [id number] [place] [address] MCH (RBC) [Entitic mass] 32.7 pg Normal 26.0-34.0 [facility] Comment on above: Order Comment: Speci men Type: BLOOD SPECIMENOrdering Facility: [facility] Address: [address] [place] [address] Performed By: #### 5 7021-8 ####[facility] LABCLIA [id number] [place] [address] MCHC (RBC) [Mass/Vol] 32.2 g/dL Normal 30.5-36.0 [facility] Comment on above: Order Comment: Speci men Type: BLOOD SPECIMENOrdering Facility: [facility] Address: [address] [place] [address] Performed By: #### 5 7021-8 ####[facility] LABCLIA [id number] [place] [address] MCV (RBC) [Entitic vol] 101.4 fL High 80.0-100.0 [facility] Comment on above: Order Comment: Speci men Type: BLOOD SPECIMENOrdering Facility: [facility] Address: [address] [place] [address] Performed By: #### 5 7021-8 ####[facility] LABCLIA [id number] [place] [address] Monocytes (Bld) [#/Vol] 0.80 10*3/uL Normal <0.87 [facility] Comment on above: Order Comment: Speci men Type: BLOOD SPECIMENOrdering Facility: [facility] Address: [address] [place] [address] Performed By: #### 5 7021-8 ####[facility] LABCLIA [id number] [place] [address] Monocytes/100 WBC (Bld) 10.6 % Normal [facility] Comment on above: Order Comment: Speci men Type: BLOOD SPECIMENOrdering Facility: [facility] Address: [address] [place] [address] Performed By: #### 5 7021-8 ####[facility] LABCLIA [id number] [place] [address] Neutrophils (Bld) [#/Vol] 4.96 10*3/uL Normal 1.45-7.50 [facility] Comment on above: Order Comment: Speci men Type: BLOOD SPECIMENOrdering Facility: [facility] Address: [address] [place] [address] Performed By: #### 5 7021-8 ####[facility] LABCLIA [id number] [place] [address] Neutrophils/100 WBC (Bld) 65.8 % Normal [facility] Comment on above: Order Comment: Speci men Type: BLOOD SPECIMENOrdering Facility: [facility] Address: [address] [place] [address] Performed By: #### 5 7021-8 ####[facility] LABCLIA [id number] [place] [address] Nucleated RBC (Bld) [#/Vol] 10*3/uL Normal <0.01 [facility] Comment on above: Order Comment: Speci men Type: BLOOD SPECIMENOrdering Facility: [facility] Address: [address] [place] [address] Performed By: #### 5 7021-8 ####[facility] LABCLIA [id number] [place] [address] Nucleated RBC/100 WBC (Bld) [Ratio] 0.0 /100 WBC Normal [facility] Comment on above: Order Comment: Speci men Type: BLOOD SPECIMENOrdering Facility: [facility] Address: [address] [place] [address] Performed By: #### 5 7021-8 ####[facility] LABCLIA [id number] [place] [address] Platelet mean volume (Bld) [Entitic vol] 10.0 fL Normal 9.0-12.7 [facility] Comment on above: Order Comment: Speci men Type: BLOOD SPECIMENOrdering Facility: [facility] Address: [address] [place] [address] Performed By: #### 5 7021-8 ####[facility] LABCLIA [id number] [place] [address] Platelets (Bld) [#/Vol] 325 10*3/uL Normal 150-400 [facility] Comment on above: Order Comment: Speci men Type: BLOOD SPECIMENOrdering Facility: [facility] Address: [address] [place] [address] Performed By: #### 5 7021-8 ####[facility] LABCLIA [id number] [place] [address] RBC (Bld) [#/Vol] 3.55 10*6/uL Low 3.90-5.20 [facility] Comment on above: Order Comment: Speci men Type: BLOOD SPECIMENOrdering Facility: [facility] Address: [address] [place] [address] Performed By: #### 5 7021-8 ####[facility] [id number] [place] [address] WBC (Bld) [#/Vol] 7.54 10*3/uL Normal 3.70-11.00 [facility] Comment on above: Order Comment: Speci men Type: BLOOD SPECIMENOrdering Facility: [facility] Address: [address] [place] [address] Performed By: #### 5 7021-8 ####[facility] LABIA [id number] [place] [address] CBC W Auto Differential pane l (Bld)on 04-14-2023 Basophils (Bld) [#/Vol] 0.04 10*3/uL Normal <0.11 [facility] Comment on above: Order Comment: Speci men Type: BLOOD SPECIMENOrdering Facility: [facility] Address: [address] [place] [address] Performed By: #### 5 7021-8 ####[facility] LABIA [id number] [place] [address] Basophils/100 WBC (Bld) 0.7 % Normal [facility] Comment on above: Order Comment: Speci men Type: BLOOD SPECIMENOrdering Facility: [facility] Address: [address] [place] [address] Performed By: #### 5 7021-8 ####[facility] LABCLIA [id number] [place] [address] Differential cell count method Nom (Bld) Auto Normal [facility] Comment on above: Order Comment: Speci men Type: BLOOD SPECIMENOrdering Facility: [facility] Address: [address] [place] [address] Performed By: #### 5 7021-8 ####[facility] LABCLIA [id number] [place] [address] Eosinophils (Bld) [#/Vol] 0.36 10*3/uL Normal <0.46 [facility] Comment on above: Order Comment: Speci men Type: BLOOD SPECIMENOrdering Facility: [facility] Address: [address] [place] [address] Performed By: #### 5 7021-8 ####[facility] LABCLIA [id number] [place] [address] Eosinophils/100 WBC (Bld) 6.4 % Normal [facility] Comment on above: Order Comment: Speci men Type: BLOOD SPECIMENOrdering Facility: [facility] Address: [address] [place] [address] Performed By: #### 5 7021-8 ####[facility] LABCLIA [id number] [place] [address] Erythrocyte distribution width (RBC) [Ratio] 15.8 % High 11.5-15.0 [facility] Comment on above: Order Comment: Speci men Type: BLOOD SPECIMENOrdering Facility: [facility] Address: [address] [place] [address] Performed By: #### 5 7021-8 ####[facility] LABCLIA [id number] [place] [address] Hematocrit (Bld) [Volume fraction] 30.8 % Low 36.0-46.0 [facility] Comment on above: Order Comment: Speci men Type: BLOOD SPECIMENOrdering Facility: [facility] Address: [address] [place] [address] Performed By: #### 5 7021-8 ####[facility] LABIA [id number] [place] [address] Hemoglobin (Bld) [Mass/Vol] 10.0 g/dL Low 11.5-15.5 [facility] Comment on above: Order Comment: Speci men Type: BLOOD SPECIMENOrdering Facility: [facility] Address: [address] [place] [address] Performed By: #### 5 7021-8 ####[facility] LABIA [id number] [place] [address] Immature granulocytes (Bld) [#/Vol] 0.04 10*3/uL Normal <0.10 [facility] Comment on above: Order Comment: Speci men Type: BLOOD SPECIMENOrdering Facility: [facility] Address: [address] [place] [address] Performed By: #### 5 7021-8 ####[facility] LABIA [id number] [place] [address] Immature granulocytes/100 WBC (Bld) 0.7 % Normal [facility] Comment on above: Order Comment: Speci men Type: BLOOD SPECIMENOrdering Facility: [facility] Address: [address] [place] [address] Performed By: #### 5 7021-8 ####[facility] LABIA [id number] [place] [address] Lymphocytes (Bld) [#/Vol] 1.37 10*3/uL Normal 1.00-4.00 [facility] Comment on above: Order Comment: Speci men Type: BLOOD SPECIMENOrdering Facility: [facility] Address: [address] [place] [address] Performed By: #### 5 7021-8 ####[facility] LABCLIA [id number] [place] [address] Lymphocytes/100 WBC (Bld) 24.4 % Normal [facility] Comment on above: Order Comment: Speci men Type: BLOOD SPECIMENOrdering Facility: [facility] Address: [address] [place] [address] Performed By: #### 5 7021-8 ####[facility] LABCLIA [id number] [place] [address] MCH (RBC) [Entitic mass] 32.8 pg Normal 26.0-34.0 [facility] Comment on above: Order Comment: Speci men Type: BLOOD SPECIMENOrdering Facility: [facility] Address: [address] [place] [address] Performed By: #### 5 7021-8 ####[facility] LABIA [id number] [place] [address] MCHC (RBC) [Mass/Vol] 32.5 g/dL Normal 30.5-36.0 [facility] Comment on above: Order Comment: Speci men Type: BLOOD SPECIMENOrdering Facility: [facility] Address: [address] [place] [address] Performed By: #### 5 7021-8 ####[facility] LABIA [id number] [place] [address] MCV (RBC) [Entitic vol] 101.0 fL High 80.0-100.0 [facility] Comment on above: Order Comment: Speci men Type: BLOOD SPECIMENOrdering Facility: [facility] Address: [address] [place] [address] Performed By: #### 5 7021-8 ####[facility] LABIA [id number] [place] [address] Monocytes (Bld) [#/Vol] 0.64 10*3/uL Normal <0.87 [facility] Comment on above: Order Comment: Speci men Type: BLOOD SPECIMENOrdering Facility: [facility] Address: [address] [place] [address] Performed By: #### 5 7021-8 ####[facility] LABCLIA [id number] [place] [address] Monocytes/100 WBC (Bld) 11.4 % Normal [facility] Comment on above: Order Comment: Speci men Type: BLOOD SPECIMENOrdering Facility: [facility] Address: [address] [place] [address] Performed By: #### 5 7021-8 ####[facility] LABCLIA [id number] [place] [address] Neutrophils (Bld) [#/Vol] 3.16 10*3/uL Normal 1.45-7.50 [facility] Comment on above: Order Comment: Speci men Type: BLOOD SPECIMENOrdering Facility: [facility] Address: [address] [place] [address] Performed By: #### 5 7021-8 ####[facility] LABCLIA [id number] [place] [address] Neutrophils/100 WBC (Bld) 56.4 % Normal [facility] Comment on above: Order Comment: Speci men Type: BLOOD SPECIMENOrdering Facility: [facility] Address: [address] [place] [address] Performed By: #### 5 7021-8 ####[facility] LABCLIA [id number] [place] [address] Nucleated RBC (Bld) [#/Vol] 10*3/uL Normal <0.01 [facility] Comment on above: Order Comment: Speci men Type: BLOOD SPECIMENOrdering Facility: [facility] Address: [address] [place] [address] Performed By: #### 5 7021-8 ####[facility] LABCLIA [id number] [place] [address] Nucleated RBC/100 WBC (Bld) [Ratio] 0.0 /100 WBC Normal [facility] Comment on above: Order Comment: Speci men Type: BLOOD SPECIMENOrdering Facility: [facility] Address: [address] [place] [address] Performed By: #### 5 7021-8 ####[facility] LABCLIA [id number] [place] [address] Platelet mean volume (Bld) [Entitic vol] 10.0 fL Normal 9.0-12.7 [facility] Comment on above: Order Comment: Speci men Type: BLOOD SPECIMENOrdering Facility: [facility] Address: [address] [place] [address] Performed By: #### 5 7021-8 ####[facility] LABCLIA [id number] [place] [address] Platelets (Bld) [#/Vol] 183 10*3/uL Normal 150-400 [facility] Comment on above: Order Comment: Speci men Type: BLOOD SPECIMENOrdering Facility: [facility] Address: [address] [place] [address] Performed By: #### 5 7021-8 ####[facility] LABCLIA [id number] [place] [address] RBC (Bld) [#/Vol] 3.05 10*6/uL Low 3.90-5.20 [facility] Comment on above: Order Comment: Speci men Type: BLOOD SPECIMENOrdering Facility: [facility] Address: [address] [place] [address] Performed By: #### 5 7021-8 ####[facility] LABCLIA [id number] [place] [address] WBC (Bld) [#/Vol] 5.61 10*3/uL Normal 3.70-11.00 [facility] Comment on above: Order Comment: Speci men Type: BLOOD SPECIMENOrdering Facility: [facility] Address: [address] [place] [address] Performed By: #### 5 7021-8 ####[facility] LABCLIA [id number] [place] [address] CNOVSPon 04-14-2023 CNOVSP Normal [facility] metabolic 2000 panelon 04-14-2023 Albumin [Mass/Vol] 3.6 g/dL Low 3.9-4.9 [facility] Comment on above: Order Comment: Speci men Type: BLOOD SPECIMENOrdering Facility: [facility] Address: [address] [place] [address] Performed By: #### 2 4323-8 ####[facility] LABCLIA [id number] [place] [address] ALP [Catalytic activity/Vol] 65 U/L Normal 34-123 [facility] Comment on above: Order Comment: Speci men Type: BLOOD SPECIMENOrdering Facility: [facility] Address: [address] [place] [address] Performed By: #### 2 4323-8 ####[facility] LABCLIA [id number] [place] [address] ALT [Catalytic activity/Vol] 16 U/L Normal 7-38 [facility] Comment on above: Order Comment: Speci men Type: BLOOD SPECIMENOrdering Facility: [facility] Address: [address] [place] [address] Performed By: #### 2 4323-8 ####[facility] LABCLIA [id number] [place] [address] Anion gap [Moles/Vol] 12 mmol/L Normal 9-18 [facility] Comment on above: Order Comment: Speci men Type: BLOOD SPECIMENOrdering Facility: [facility] Address: [address] [place] [address] Performed By: #### 2 4323-8 ####[facility] LABCLIA [id number] [place] [address] AST [Catalytic activity/Vol] 21 U/L Normal 13-35 [facility] Comment on above: Order Comment: Speci men Type: BLOOD SPECIMENOrdering Facility: [facility] Address: [address] [place] [address] Performed By: #### 2 4323-8 ####[facility] LABCLIA [id number] [place] [address] Bilirubin [Mass/Vol] 0.3 mg/dL Normal 0.2-1.3 [facility] Comment on above: Order Comment: Speci men Type: BLOOD SPECIMENOrdering Facility: [facility] Address: [address] [place] [address] Performed By: #### 2 4323-8 ####[facility] LABCLIA [id number] [place] [address] Calcium [Mass/Vol] 10.8 mg/dL High 8.5-10.2 [facility] Comment on above: Order Comment: Speci men Type: BLOOD SPECIMENOrdering Facility: [facility] Address: [address] [place] [address] Performed By: #### 2 4323-8 ####[facility] LABCLIA [id number] [place] [address] Chloride [Moles/Vol] 99 mmol/L Normal 97-105 [facility] Comment on above: Order Comment: Speci men Type: BLOOD SPECIMENOrdering Facility: [facility] Address: [address] [place] [address] Performed By: #### 2 4323-8 ####[facility] LABCLIA [id number] [place] [address] CO2 [Moles/Vol] 30 mmol/L Normal 22-30 [facility] Comment on above: Order Comment: Speci men Type: BLOOD SPECIMENOrdering Facility: [facility] Address: [address] [id number] Performed By: #### 2 4323-8 ####[facility] LABCLIA [id number] [place] [address] Creatinine [Mass/Vol] 17.64 mg/dL High 0.58-0.96 [facility] Comment on above: Order Comment: Speci men Type: BLOOD SPECIMENOrdering Facility: [facility] Address: [address] [place] [address] Performed By: #### 2 4323-8 ####[facility] LABCLIA [id number] [place] [address] Creatinine and Glomerular filtration rate.predicted panel (S/P/Bld) 2 mL/min/1.73m??? Low >=60 [facility] Comment on above: Order Comment: Speci men Type: BLOOD SPECIMENOrdering Facility: [facility] Address: [address] [place] [address] Result Comment: Rylee mated Glomerular Filtration Rate (eGFR) is calculated using the 2020 CKD-EPI creatinine equation. This equation utilizes serum creatinine, sex, and age as parameters. The creatinine assay has traceable calibration to isotope dilution-mass spectrometry. Refer to KDIGO guidelines for clinical interpretation. In patients with unstable renal function, e.g. those with acute kidney injury, the eGFR may not accurately reflect actual GFR. Performed By: #### 2 4323-8 ####[facility] LABCLIA [id number] [place] [address] Glucose [Mass/Vol] 100 mg/dL High 74-99 [facility] Comment on above: Order Comment: Speci men Type: BLOOD SPECIMENOrdering Facility: [facility] Address: [address] [id number] Result Comment: The [place] [employer] (ADA) provides guidance for cutoff values for fasting glucose and random glucose. The ADA defines fasting as no caloric intake for at least 8 hours. Fasting plasma glucose results between 100 to 125 mg/dL indicate increased risk for diabetes (prediabetes).Fasting plasma glucose results greater than or equal to 126 mg/dL meet the criteria for diagnosis of diabetes. In the absence of unequivocal hyperglycemia, results should be confirmed by repeat testing. In a patient with classic symptoms of hyperglycemia or hyperglycemic crisis, random plasma glucose results greater than or equal to 200 mg/dL meet the criteria for diagnosis of diabetes.Reference: Standards of Medical Care in Diabetes 2016, [place] [employer]. Diabetes Care. 2016.39(Suppl 1). Performed By: #### 2 4323-8 ####[facility] LABCLIA [id number] [place] [address] Potassium [Moles/Vol] 4.2 mmol/L Normal 3.7-5.1 [facility] Comment on above: Order Comment: Speci men Type: BLOOD SPECIMENOrdering Facility: [facility] Address: [address] [place] [address] Performed By: #### 2 4323-8 ####[facility] LABCLIA [id number] [place] [address] Protein [Mass/Vol] 5.3 g/dL Low 6.3-8.0 [facility] Comment on above: Order Comment: Speci men Type: BLOOD SPECIMENOrdering Facility: [facility] Address: [address] [place] [address] Performed By: #### 2 4323-8 ####[facility] LABCLIA [id number] [place] [address] Sodium [Moles/Vol] 141 mmol/L Normal 136-144 [facility] Comment on above: Order Comment: Speci men Type: BLOOD SPECIMENOrdering Facility: [facility] Address: [address] [place] [address] Performed By: #### 2 4323-8 ####[facility] LABCLIA [id number] [place] [address] Urea nitrogen [Mass/Vol] 60 mg/dL High 7-21 [facility] Comment on above: Order Comment: Speci men Type: BLOOD SPECIMENOrdering Facility: [facility] Address: [address] [place] [address] Performed By: #### 2 4323-8 ####[facility] LABCLIA [id number] [place] [address] CNOVon 04-13-2023 CNOV Normal [facility] CNPNon 04-09-2023 CNPN Normal [facility] CBC W Auto Differential pane l (Bld)on 04-07-2023 Basophils (Bld) [#/Vol] 0.05 10*3/uL Normal <0.11 [facility] Comment on above: Order Comment: Speci men Type: BLOOD SPECIMENOrdering Facility: [facility] Address: [address] [place] [address] Performed By: #### 5 7021-8 ####[facility] LABCLIA [id number] [place] [address] Basophils/100 WBC (Bld) 0.5 % Normal [facility] Comment on above: Order Comment: Speci men Type: BLOOD SPECIMENOrdering Facility: [facility] Address: [address] [place] [address] Performed By: #### 5 7021-8 ####[facility] LABCLIA [id number] [place] [address] Differential cell count method Nom (Bld) Auto Normal [facility] Comment on above: Order Comment: Speci men Type: BLOOD SPECIMENOrdering Facility: [facility] Address: [address] [place] [address] Performed By: #### 5 7021-8 ####[facility] LABCLIA [id number] [place] [address] Eosinophils (Bld) [#/Vol] 0.42 10*3/uL Normal <0.46 [facility] Comment on above: Order Comment: Speci men Type: BLOOD SPECIMENOrdering Facility: [facility] Address: [address] [place] [address] Performed By: #### 5 7021-8 ####[facility] LABCLIA [id number] [place] [address] Eosinophils/100 WBC (Bld) 4.1 % Normal [facility] Comment on above: Order Comment: Speci men Type: BLOOD SPECIMENOrdering Facility: [facility] Address: [address] [place] [address] Performed By: #### 5 7021-8 ####[facility] LABCLIA [id number] [place] [address] Erythrocyte distribution width (RBC) [Ratio] 16.7 % High 11.5-15.0 [facility] Comment on above: Order Comment: Speci men Type: BLOOD SPECIMENOrdering Facility: [facility] Address: [address] [place] [address] Performed By: #### 5 7021-8 ####[facility] LABCLIA [id number] [place] [address] Hematocrit (Bld) [Volume fraction] 34.8 % Low 36.0-46.0 [facility] Comment on above: Order Comment: Speci men Type: BLOOD SPECIMENOrdering Facility: [facility] Address: [address] [place] [address] Performed By: #### 5 7021-8 ####[facility] LABCLIA [id number] [place] [address] Hemoglobin (Bld) [Mass/Vol] 11.0 g/dL Low 11.5-15.5 [facility] Comment on above: Order Comment: Speci men Type: BLOOD SPECIMENOrdering Facility: [facility] Address: [address] [place] [address] Performed By: #### 5 7021-8 ####[facility] LABCLIA [id number] [place] [address] Immature granulocytes (Bld) [#/Vol] 0.12 10*3/uL High <0.10 [facility] Comment on above: Order Comment: Speci men Type: BLOOD SPECIMENOrdering Facility: [facility] Address: [address] [place] [address] Performed By: #### 5 7021-8 ####[facility] LABCLIA [id number] [place] [address] Immature granulocytes/100 WBC (Bld) 1.2 % Normal [facility] Comment on above: Order Comment: Speci men Type: BLOOD SPECIMENOrdering Facility: [facility] Address: [address] [place] [address] Performed By: #### 5 7021-8 ####[facility] LABIA [id number] [place] [address] Lymphocytes (Bld) [#/Vol] 0.84 10*3/uL Low 1.00-4.00 [facility] Comment on above: Order Comment: Speci men Type: BLOOD SPECIMENOrdering Facility: [facility] Address: [address] [place] [address] Performed By: #### 5 7021-8 ####[facility] LABIA [id number] [place] [address] Lymphocytes/100 WBC (Bld) 8.2 % Normal [facility] Comment on above: Order Comment: Speci men Type: BLOOD SPECIMENOrdering Facility: [facility] Address: [address] [place] [address] Performed By: #### 5 7021-8 ####[facility] LABCLIA [id number] [place] [address] MCH (RBC) [Entitic mass] 32.5 pg Normal 26.0-34.0 [facility] Comment on above: Order Comment: Speci men Type: BLOOD SPECIMENOrdering Facility: [facility] Address: [address] [place] [address] Performed By: #### 5 7021-8 ####[facility] LABCLIA [id number] [place] [address] MCHC (RBC) [Mass/Vol] 31.6 g/dL Normal 30.5-36.0 [facility] Comment on above: Order Comment: Speci men Type: BLOOD SPECIMENOrdering Facility: [facility] Address: [address] [place] [address] Performed By: #### 5 7021-8 ####[facility] LABCLIA [id number] [place] [address] MCV (RBC) [Entitic vol] 103.0 fL High 80.0-100.0 [facility] Comment on above: Order Comment: Speci men Type: BLOOD SPECIMENOrdering Facility: [facility] Address: [address] [place] [address] Performed By: #### 5 7021-8 ####[facility] LABCLIA [id number] [place] [address] Monocytes (Bld) [#/Vol] 0.81 10*3/uL Normal <0.87 [facility] Comment on above: Order Comment: Speci men Type: BLOOD SPECIMENOrdering Facility: [facility] Address: [address] [place] [address] Performed By: #### 5 7021-8 ####[facility] LABCLIA [id number] [place] [address] Monocytes/100 WBC (Bld) 7.9 % Normal [facility] Comment on above: Order Comment: Speci men Type: BLOOD SPECIMENOrdering Facility: [facility] Address: [address] [place] [address] Performed By: #### 5 7021-8 ####[facility] LABCLIA [id number] [place] [address] Neutrophils (Bld) [#/Vol] 8.00 10*3/uL High 1.45-7.50 [facility] Comment on above: Order Comment: Speci men Type: BLOOD SPECIMENOrdering Facility: [facility] Address: [address] [place] [address] Performed By: #### 5 7021-8 ####[facility] LABCLIA [id number] [place] [address] Neutrophils/100 WBC (Bld) 78.1 % Normal [facility] Comment on above: Order Comment: Speci men Type: BLOOD SPECIMENOrdering Facility: [facility] Address: [address] [place] [address] Performed By: #### 5 7021-8 ####[facility] LABCLIA [id number] [place] [address] Nucleated RBC (Bld) [#/Vol] 10*3/uL Normal <0.01 [facility] Comment on above: Order Comment: Speci men Type: BLOOD SPECIMENOrdering Facility: [facility] Address: [address] [place] [address] Performed By: #### 5 7021-8 ####[facility] LABCLIA [id number] [place] [address] Nucleated RBC/100 WBC (Bld) [Ratio] 0.0 /100 WBC Normal [facility] Comment on above: Order Comment: Speci men Type: BLOOD SPECIMENOrdering Facility: [facility] Address: [address] [place] [address] Performed By: #### 5 7021-8 ####[facility] LABCLIA [id number] [place] [address] Platelet mean volume (Bld) [Entitic vol] 10.0 fL Normal 9.0-12.7 [facility] Comment on above: Order Comment: Speci men Type: BLOOD SPECIMENOrdering Facility: [facility] Address: [address] [place] [address] Performed By: #### 5 7021-8 ####[facility] LABCLIA [id number] [place] [address] Platelets (Bld) [#/Vol] 256 10*3/uL Normal 150-400 [facility] Comment on above: Order Comment: Speci men Type: BLOOD SPECIMENOrdering Facility: [facility] Address: [address] [place], [place] [id number] Performed By: #### 5 7021-8 ####[facility] LABCLIA [id number] [place] [address] RBC (Bld) [#/Vol] 3.38 10*6/uL Low 3.90-5.20 [facility] Comment on above: Order Comment: Speci men Type: BLOOD SPECIMENOrdering Facility: [facility] Address: [address] [place], [place] [address] Performed By: #### 5 7021-8 ####[facility] LABIA [id number] [place] [address] WBC (Bld) [#/Vol] 10.24 10*3/uL Normal 3.70-11.00 [facility] Comment on above: Order Comment: Speci men Type: BLOOD SPECIMENOrdering Facility: [facility] Address: [address] [place], [place] [address] Performed By: #### 5 7021-8 ####[facility] LABIA [id number] [place] [address] CNCOon 04-07-2023 CNCO Letter Text Normal [facility] MAMM DIAGNOSTIC UNILAT LT W CADon 04-06-2023 MAMM DIAGNOSTIC UNILAT LT W CAD MAMM DIAGNOSTIC UNILAT LT W CAD EXAM: MAMM DIAGNOSTIC UNILAT LT W CAD, 04/06/2023 10:08 AM CLINICAL INDICATIONS: Abnormality of left breast on screening mammogram, 6 month follow-up. COMPARISON: Mammogram 07/08/2022 and 10/06/2022. TECHNIQUE: Supplemental views of the left breast were obtained for diagnostic workup. Digital tomosynthesis images were obtained, with creation of synthetic 2D views. Computer aided detection was utilized. FINDINGS: The breasts are heterogeneously dense, which may obscure small masses. Patient here to follow up an asymmetry in the medial aspect of the left breast, seen only on the CC view. This area is now obscured by overlying electronic loop recorder. However, no gross abnormality is seen in the surrounding area. There are no other suspicious masses, calcifications, or areas of architectural distortions. IMPRESSION: No mammographic evidence of malignancy. However, the area to be followed up is obscured by the loop recorder, but no large abnormality seen in this region. Patient's says the loop recorder will be there for 3 years. Recommend follow-up with physical examination. BI-RADS: BI-RADS 1 - Negative Recommendation: Return to annual screening mammography. Patient was given the results before leaving the department. Finalized by Hernán Roberts MD on 04/06/2023 10:23 AM 1 c RETURN TO [place] Normal [facility] CBC W Auto Differential pane l (Bld)on 04-01-2023 Basophils (Bld) [#/Vol] 0.07 10*3/uL Normal <0.11 [facility] Comment on above: Order Comment: Speci men Type: BLOOD SPECIMENOrdering Facility: [facility] Address: [address] [place] [address] Performed By: #### 5 7021-8 ####[facility] LABCLIA [id number] [place] [address] Basophils/100 WBC (Bld) 0.6 % Normal [facility] Comment on above: Order Comment: Speci men Type: BLOOD SPECIMENOrdering Facility: [facility] Address: [address] [place] [address] Performed By: #### 5 7021-8 ####[facility] LABCLIA [id number] [place] [address] Differential cell count method Nom (Bld) Auto Normal [facility] Comment on above: Order Comment: Speci men Type: BLOOD SPECIMENOrdering Facility: [facility] Address: [address] [place] [address] Performed By: #### 5 7021-8 ####[facility] LABCLIA [id number] [place] [address] Eosinophils (Bld) [#/Vol] 0.71 10*3/uL High <0.46 [facility] Comment on above: Order Comment: Speci men Type: BLOOD SPECIMENOrdering Facility: [facility] Address: [address] [place] [address] Performed By: #### 5 7021-8 ####[facility] LABCLIA [id number] [place] [address] Eosinophils/100 WBC (Bld) 5.8 % Normal [facility] Comment on above: Order Comment: Speci men Type: BLOOD SPECIMENOrdering Facility: [facility] Address: [address] [place] [address] Performed By: #### 5 7021-8 ####[facility] LABCLIA [id number] [place] [address] Erythrocyte distribution width (RBC) [Ratio] 18.8 % High 11.5-15.0 [facility] Comment on above: Order Comment: Speci men Type: BLOOD SPECIMENOrdering Facility: [facility] Address: [address] [place] [address] Performed By: #### 5 7021-8 ####[facility] LABCLIA [id number] [place] [address] Hematocrit (Bld) [Volume fraction] 37.7 % Normal 36.0-46.0 [facility] Comment on above: Order Comment: Speci men Type: BLOOD SPECIMENOrdering Facility: [facility] Address: [address] [place] [address] Performed By: #### 5 7021-8 ####[facility] LABCLIA [id number] [place] [address] Hemoglobin (Bld) [Mass/Vol] 11.7 g/dL Normal 11.5-15.5 [facility] Comment on above: Order Comment: Speci men Type: BLOOD SPECIMENOrdering Facility: [facility] Address: [address] [place] [address] Performed By: #### 5 7021-8 ####[facility] LABCLIA [id number] [place] [address] Immature granulocytes (Bld) [#/Vol] 0.12 10*3/uL High <0.10 [facility] Comment on above: Order Comment: Speci men Type: BLOOD SPECIMENOrdering Facility: [facility] Address: [address] [place] [address] Performed By: #### 5 7021-8 ####[facility] LABCLIA [id number] [place] [address] Immature granulocytes/100 WBC (Bld) 1.0 % Normal [facility] Comment on above: Order Comment: Speci men Type: BLOOD SPECIMENOrdering Facility: [facility] Address: [address] [place] [address] Performed By: #### 5 7021-8 ####[facility] LABCLIA [id number] [place] [address] Lymphocytes (Bld) [#/Vol] 1.47 10*3/uL Normal 1.00-4.00 [facility] Comment on above: Order Comment: Speci men Type: BLOOD SPECIMENOrdering Facility: [facility] Address: [address] [place] [address] Performed By: #### 5 7021-8 ####[facility] LABCLIA [id number] [place] [address] Lymphocytes/100 WBC (Bld) 12.0 % Normal [facility] Comment on above: Order Comment: Speci men Type: BLOOD SPECIMENOrdering Facility: [facility] Address: [address] [place] [address] Performed By: #### 5 7021-8 ####[facility] LABIA [id number] [place] [address] MCH (RBC) [Entitic mass] 32.5 pg Normal 26.0-34.0 [facility] Comment on above: Order Comment: Speci men Type: BLOOD SPECIMENOrdering Facility: [facility] Address: [address] [place] [address] Performed By: #### 5 7021-8 ####[facility] LABCLIA [id number] [place] [address] MCHC (RBC) [Mass/Vol] 31.0 g/dL Normal 30.5-36.0 [facility] Comment on above: Order Comment: Speci men Type: BLOOD SPECIMENOrdering Facility: [facility] Address: [address] [place] [address] Performed By: #### 5 7021-8 ####[facility] LABCLIA [id number] [place] [address] MCV (RBC) [Entitic vol] 104.7 fL High 80.0-100.0 [facility] Comment on above: Order Comment: Speci men Type: BLOOD SPECIMENOrdering Facility: [facility] Address: [address] [place] [address] Performed By: #### 5 7021-8 ####[facility] LABCLIA [id number] [place] [address] Monocytes (Bld) [#/Vol] 0.96 10*3/uL High <0.87 [facility] Comment on above: Order Comment: Speci men Type: BLOOD SPECIMENOrdering Facility: [facility] Address: [address] [place] [address] Performed By: #### 5 7021-8 ####[facility] LABCLIA [id number] [place] [address] Monocytes/100 WBC (Bld) 7.8 % Normal [facility] Comment on above: Order Comment: Speci men Type: BLOOD SPECIMENOrdering Facility: [facility] Address: [address] [place] [address] Performed By: #### 5 7021-8 ####[facility] LABCLIA [id number] [place] [address] Neutrophils (Bld) [#/Vol] 8.91 10*3/uL High 1.45-7.50 [facility] Comment on above: Order Comment: Speci men Type: BLOOD SPECIMENOrdering Facility: [facility] Address: [address] [place] [address] Performed By: #### 5 7021-8 ####[facility] LABCLIA [id number] [place] [address] Neutrophils/100 WBC (Bld) 72.8 % Normal [facility] Comment on above: Order Comment: Speci men Type: BLOOD SPECIMENOrdering Facility: [facility] Address: [address] [place] [address] Performed By: #### 5 7021-8 ####[facility] LABCLIA [id number] [place] [address] Nucleated RBC (Bld) [#/Vol] 10*3/uL Normal <0.01 [facility] Comment on above: Order Comment: Speci men Type: BLOOD SPECIMENOrdering Facility: [facility] Address: [address] [place] [address] Performed By: #### 5 7021-8 ####[facility] LABCLIA [id number] [place] [address] Nucleated RBC/100 WBC (Bld) [Ratio] 0.0 /100 WBC Normal [facility] Comment on above: Order Comment: Speci men Type: BLOOD SPECIMENOrdering Facility: [facility] Address: [address] [place] [address] Performed By: #### 5 7021-8 ####[facility] LABCLIA [id number] [place] [address] Platelet mean volume (Bld) [Entitic vol] 9.7 fL Normal 9.0-12.7 [facility] Comment on above: Order Comment: Speci men Type: BLOOD SPECIMENOrdering Facility: [facility] Address: [address] [place] [address] Performed By: #### 5 7021-8 ####[facility] LABCLIA [id number] [place] [address] Platelets (Bld) [#/Vol] 398 10*3/uL Normal 150-400 [facility] Comment on above: Order Comment: Speci men Type: BLOOD SPECIMENOrdering Facility: [facility] Address: [address] [place] [address] Performed By: #### 5 7021-8 ####[facility] LABCLIA [id number] [place] [address] RBC (Bld) [#/Vol] 3.60 10*6/uL Low 3.90-5.20 [facility] Comment on above: Order Comment: Speci men Type: BLOOD SPECIMENOrdering Facility: [facility] Address: [address] [place] [address] Performed By: #### 5 7021-8 ####[facility] LABIA [id number] [place] [address] WBC (Bld) [#/Vol] 12.24 10*3/uL High 3.70-11.00 [facility] Comment on above: Order Comment: Speci men Type: BLOOD SPECIMENOrdering Facility: [facility] Address: [address] [place] [address] Performed By: #### 5 7021-8 ####[facility] LABCLIA [id number] [place] [address] Comprehensive metabolic 2000 panelon 04-01-2023 Albumin [Mass/Vol] 3.8 g/dL Low 3.9-4.9 [facility] Comment on above: Order Comment: Speci men Type: BLOOD SPECIMENOrdering Facility: [facility] Address: [address] [place] [address] Performed By: #### 2 4323-8 ####[facility] LABCLIA [id number] [place] [address] ALP [Catalytic activity/Vol] 84 U/L Normal 34-123 [facility] Comment on above: Order Comment: Speci men Type: BLOOD SPECIMENOrdering Facility: [facility] Address: [address] [place] [address] Performed By: #### 2 4323-8 ####[facility] LABCLIA [id number] [place] [address] ALT [Catalytic activity/Vol] 9 U/L Normal 7-38 [facility] Comment on above: Order Comment: Speci men Type: BLOOD SPECIMENOrdering Facility: [facility] Address: [address] [place] [address] Performed By: #### 2 4323-8 ####[facility] LABCLIA [id number] [place] [address] Anion gap [Moles/Vol] 14 mmol/L Normal 9-18 [facility] Comment on above: Order Comment: Speci men Type: BLOOD SPECIMENOrdering Facility: [facility] Address: [address] [place] [address] Performed By: #### 2 4323-8 ####[facility] LABCLIA [id number] [place] [address] AST [Catalytic activity/Vol] 11 U/L Low 13-35 [facility] Comment on above: Order Comment: Speci men Type: BLOOD SPECIMENOrdering Facility: [facility] Address: [address] [place] [address] Performed By: #### 2 4323-8 ####[facility] LABCLIA [id number] [place] [address] Bilirubin [Mass/Vol] 0.4 mg/dL Normal 0.2-1.3 [facility] Comment on above: Order Comment: Speci men Type: BLOOD SPECIMENOrdering Facility: [facility] Address: [address] [place] [address] Performed By: #### 2 4323-8 ####[facility] LABCLIA [id number] [place] [address] Calcium [Mass/Vol] 10.3 mg/dL High 8.5-10.2 [facility] Comment on above: Order Comment: Speci men Type: BLOOD SPECIMENOrdering Facility: [facility] Address: [address] [place] [address] Performed By: #### 2 4323-8 ####[facility] LABCLIA [id number] [place] [address] Chloride [Moles/Vol] 98 mmol/L Normal 97-105 [facility] Comment on above: Order Comment: Speci men Type: BLOOD SPECIMENOrdering Facility: [facility] Address: [address] [place] [address] Performed By: #### 2 4323-8 ####[facility] LABCLIA [id number] [place] [address] CO2 [Moles/Vol] 31 mmol/L High 22-30 [facility] Comment on above: Order Comment: Speci men Type: BLOOD SPECIMENOrdering Facility: [facility] Address: [address] [place] [address] Performed By: #### 2 4323-8 ####[facility] LABCLIA [id number] [place] [address] Creatinine [Mass/Vol] 13.83 mg/dL High 0.58-0.96 [facility] Comment on above: Order Comment: Speci men Type: BLOOD SPECIMENOrdering Facility: [facility] Address: [address] [place] [address] Performed By: #### 2 4323-8 ####[facility] LABCLIA [id number] [place] [address] Creatinine and Glomerular filtration rate.predicted panel (S/P/Bld) 3 mL/min/1.73m??? Low >=60 [facility] Comment on above: Order Comment: Speci men Type: BLOOD SPECIMENOrdering Facility: [facility] Address: [address] [place] [address] Result Comment: Rylee mated Glomerular Filtration Rate (eGFR) is calculated using the 2020 CKD-EPI creatinine equation. This equation utilizes serum creatinine, sex, and age as parameters. The creatinine assay has traceable calibration to isotope dilution-mass spectrometry. Refer to KDIGO guidelines for clinical interpretation. In patients with unstable renal function, e.g. those with acute kidney injury, the eGFR may not accurately reflect actual GFR. Performed By: #### 2 4323-8 ####[facility] LABCLIA [id number] [place] [address] Glucose [Mass/Vol] 134 mg/dL High 74-99 [facility] Comment on above: Order Comment: Speci men Type: BLOOD SPECIMENOrdering Facility: [facility] Address: [address] [place], [place] [id number] Result Comment: The [place] [employer] (ADA) provides guidance for cutoff values for fasting glucose and random glucose. The ADA defines fasting as no caloric intake for at least 8 hours. Fasting plasma glucose results between 100 to 125 mg/dL indicate increased risk for diabetes (prediabetes).Fasting plasma glucose results greater than or equal to 126 mg/dL meet the criteria for diagnosis of diabetes. In the absence of unequivocal hyperglycemia, results should be confirmed by repeat testing. In a patient with classic symptoms of hyperglycemia or hyperglycemic crisis, random plasma glucose results greater than or equal to 200 mg/dL meet the criteria for diagnosis of diabetes.Reference: Standards of Medical Care in Diabetes 2016, [place] [employer]. Diabetes Care. 2016.39(Suppl 1). Performed By: #### 2 4323-8 ####[facility] LABCLIA [id number] [place] [address] Potassium [Moles/Vol] 3.6 mmol/L Low 3.7-5.1 [facility] Comment on above: Order Comment: Speci men Type: BLOOD SPECIMENOrdering Facility: [facility] Address: [address] [place] [address] Performed By: #### 2 4323-8 ####[facility] LABCLIA [id number] [place] [address] Protein [Mass/Vol] 5.8 g/dL Low 6.3-8.0 [facility] Comment on above: Order Comment: Speci men Type: BLOOD SPECIMENOrdering Facility: [facility] Address: [address] [place] [address] Performed By: #### 2 4323-8 ####[facility] LABCLIA [id number] [place] [address] Sodium [Moles/Vol] 143 mmol/L Normal 136-144 [facility] Comment on above: Order Comment: Speci men Type: BLOOD SPECIMENOrdering Facility: [facility] Address: [address] [place] [address] Performed By: #### 2 4323-8 ####[facility] LABCLIA [id number] [place] [address] Urea nitrogen [Mass/Vol] 27 mg/dL High 7-21 [facility] Comment on above: Order Comment: Speci men Type: BLOOD SPECIMENOrdering Facility: [facility] Address: [address] [place] [address] Performed By: #### 2 4323-8 ####[facility] LABCLIA [id number] [place] [address] CBC W Auto Differential pane l (Bld)on 03-24-2023 Basophils (Bld) [#/Vol] 0.06 10*3/uL Normal <0.11 [facility] Comment on above: Order Comment: Speci men Type: BLOOD SPECIMENOrdering Facility: [facility] Address: [address] [place] [address] Performed By: #### 5 7021-8 ####[facility] LABCLIA [id number] [place] [address] Basophils/100 WBC (Bld) 0.5 % Normal [facility] Comment on above: Order Comment: Speci men Type: BLOOD SPECIMENOrdering Facility: [facility] Address: [address] [place] [address] Performed By: #### 5 7021-8 ####[facility] LABCLIA [id number] [place] [address] Differential cell count method Nom (Bld) Auto Normal [facility] Comment on above: Order Comment: Speci men Type: BLOOD SPECIMENOrdering Facility: [facility] Address: [address] [place] [address] Performed By: #### 5 7021-8 ####[facility] LABCLIA [id number] [place] [address] Eosinophils (Bld) [#/Vol] 0.52 10*3/uL High <0.46 [facility] Comment on above: Order Comment: Speci men Type: BLOOD SPECIMENOrdering Facility: [facility] Address: [address] [place] [address] Performed By: #### 5 7021-8 ####[facility] LABIA [id number] [place] [address] Eosinophils/100 WBC (Bld) 4.5 % Normal [facility] Comment on above: Order Comment: Speci men Type: BLOOD SPECIMENOrdering Facility: [facility] Address: [address] [place] [address] Performed By: #### 5 7021-8 ####[facility] LABCLIA [id number] [place] [address] Erythrocyte distribution width (RBC) [Ratio] 18.6 % High 11.5-15.0 [facility] Comment on above: Order Comment: Speci men Type: BLOOD SPECIMENOrdering Facility: [facility] Address: [address] [place] [address] Performed By: #### 5 7021-8 ####[facility] LABIA [id number] [place] [address] Hematocrit (Bld) [Volume fraction] 32.4 % Low 36.0-46.0 [facility] Comment on above: Order Comment: Speci men Type: BLOOD SPECIMENOrdering Facility: [facility] Address: [address] [place] [address] Performed By: #### 5 7021-8 ####[facility] LABCLIA [id number] [place] [address] Hemoglobin (Bld) [Mass/Vol] 10.3 g/dL Low 11.5-15.5 [facility] Comment on above: Order Comment: Speci men Type: BLOOD SPECIMENOrdering Facility: [facility] Address: [address] [place] [address] Performed By: #### 5 7021-8 ####[facility] LABCLIA [id number] [place] [address] Immature granulocytes (Bld) [#/Vol] 0.14 10*3/uL High <0.10 [facility] Comment on above: Order Comment: Speci men Type: BLOOD SPECIMENOrdering Facility: [facility] Address: [address] [place] [address] Performed By: #### 5 7021-8 ####[facility] LABCLIA [id number] [place] [address] Immature granulocytes/100 WBC (Bld) 1.2 % Normal [facility] Comment on above: Order Comment: Speci men Type: BLOOD SPECIMENOrdering Facility: [facility] Address: [address] [place] [address] Performed By: #### 5 7021-8 ####[facility] LABCLIA [id number] [place] [address] Lymphocytes (Bld) [#/Vol] 1.11 10*3/uL Normal 1.00-4.00 [facility] Comment on above: Order Comment: Speci men Type: BLOOD SPECIMENOrdering Facility: [facility] Address: [address] [place] [address] Performed By: #### 5 7021-8 ####[facility] LABCLIA [id number] [place] [address] Lymphocytes/100 WBC (Bld) 9.6 % Normal [facility] Comment on above: Order Comment: Speci men Type: BLOOD SPECIMENOrdering Facility: [facility] Address: [address] [place] [address] Performed By: #### 5 7021-8 ####[facility] LABCLIA [id number] [place] [address] MCH (RBC) [Entitic mass] 32.6 pg Normal 26.0-34.0 [facility] Comment on above: Order Comment: Speci men Type: BLOOD SPECIMENOrdering Facility: [facility] Address: [address] [place] [address] Performed By: #### 5 7021-8 ####[facility] LABIA [id number] [place] [address] MCHC (RBC) [Mass/Vol] 31.8 g/dL Normal 30.5-36.0 [facility] Comment on above: Order Comment: Speci men Type: BLOOD SPECIMENOrdering Facility: [facility] Address: [address] [place] [address] Performed By: #### 5 7021-8 ####[facility] LABIA [id number] [place] [address] MCV (RBC) [Entitic vol] 102.5 fL High 80.0-100.0 [facility] Comment on above: Order Comment: Speci men Type: BLOOD SPECIMENOrdering Facility: [facility] Address: [address] [place] [address] Performed By: #### 5 7021-8 ####[facility] LABCLIA [id number] [place] [address] Monocytes (Bld) [#/Vol] 0.89 10*3/uL High <0.87 [facility] Comment on above: Order Comment: Speci men Type: BLOOD SPECIMENOrdering Facility: [facility] Address: [address] [place] [address] Performed By: #### 5 7021-8 ####[facility] LABCLIA [id number] [place] [address] Monocytes/100 WBC (Bld) 7.7 % Normal [facility] Comment on above: Order Comment: Speci men Type: BLOOD SPECIMENOrdering Facility: [facility] Address: [address] [place] [address] Performed By: #### 5 7021-8 ####[facility] LABCLIA [id number] [place] [address] Neutrophils (Bld) [#/Vol] 8.79 10*3/uL High 1.45-7.50 [facility] Comment on above: Order Comment: Speci men Type: BLOOD SPECIMENOrdering Facility: [facility] Address: [address] [place] [address] Performed By: #### 5 7021-8 ####[facility] LABIA [id number] [place] [address] Neutrophils/100 WBC (Bld) 76.5 % Normal [facility] Comment on above: Order Comment: Speci men Type: BLOOD SPECIMENOrdering Facility: [facility] Address: [address] [place] [address] Performed By: #### 5 7021-8 ####[facility] LABCLIA [id number] [place] [address] Nucleated RBC (Bld) [#/Vol] 10*3/uL Normal <0.01 [facility] Comment on above: Order Comment: Speci men Type: BLOOD SPECIMENOrdering Facility: [facility] Address: [address] [place] [address] Performed By: #### 5 7021-8 ####[facility] LABIA [id number] [place] [address] Nucleated RBC/100 WBC (Bld) [Ratio] 0.0 /100 WBC Normal [facility] Comment on above: Order Comment: Speci men Type: BLOOD SPECIMENOrdering Facility: [facility] Address: [address] [place] [address] Performed By: #### 5 7021-8 ####[facility] LABCLIA [id number] [place] [address] Platelet mean volume (Bld) [Entitic vol] 9.9 fL Normal 9.0-12.7 [facility] Comment on above: Order Comment: Speci men Type: BLOOD SPECIMENOrdering Facility: [facility] Address: [address] [place] [address] Performed By: #### 5 7021-8 ####[facility] LABCLIA [id number] [place] [address] Platelets (Bld) [#/Vol] 329 10*3/uL Normal 150-400 [facility] Comment on above: Order Comment: Speci men Type: BLOOD SPECIMENOrdering Facility: [facility] Address: [address] [place] [address] Performed By: #### 5 7021-8 ####[facility] LABCLIA [id number] [place] [address] RBC (Bld) [#/Vol] 3.16 10*6/uL Low 3.90-5.20 [facility] Comment on above: Order Comment: Speci men Type: BLOOD SPECIMENOrdering Facility: [facility] Address: [address] [place] [address] Performed By: #### 5 7021-8 ####[facility] LABCLIA [id number] [place] [address] WBC (Bld) [#/Vol] 11.51 10*3/uL High 3.70-11.00 [facility] Comment on above: Order Comment: Speci men Type: BLOOD SPECIMENOrdering Facility: [facility] Address: [address] [place] [address] Performed By: #### 5 7021-8 ####[facility] LABCLIA [id number] [place] [address] CNOVon 03-24-2023 CNOV Normal [facility] CBC W Auto Differential pane l (Bld)on 03-17-2023 Basophils (Bld) [#/Vol] 0.06 10*3/uL Normal <0.11 [facility] Comment on above: Order Comment: Speci men Type: BLOOD SPECIMENOrdering Facility: [facility] Address: [address] [place] [address] Performed By: #### 5 7021-8 ####[facility] LABCLIA [id number] [place] [address] Basophils/100 WBC (Bld) 0.6 % Normal [facility] Comment on above: Order Comment: Speci men Type: BLOOD SPECIMENOrdering Facility: [facility] Address: [address] [place] [address] Performed By: #### 5 7021-8 ####[facility] LABCLIA [id number] [place] [address] Differential cell count method Nom (Bld) Auto Normal [facility] Comment on above: Order Comment: Speci men Type: BLOOD SPECIMENOrdering Facility: [facility] Address: [address] [place] [address] Performed By: #### 5 7021-8 ####[facility] LABCLIA [id number] [place] [address] Eosinophils (Bld) [#/Vol] 0.29 10*3/uL Normal <0.46 [facility] Comment on above: Order Comment: Speci men Type: BLOOD SPECIMENOrdering Facility: [facility] Address: [address] [place] [address] Performed By: #### 5 7021-8 ####[facility] LABIA [id number] [place] [address] Eosinophils/100 WBC (Bld) 2.9 % Normal [facility] Comment on above: Order Comment: Speci men Type: BLOOD SPECIMENOrdering Facility: [facility] Address: [address] [place] [address] Performed By: #### 5 7021-8 ####[facility] LABCLIA [id number] [place] [address] Erythrocyte distribution width (RBC) [Ratio] 18.7 % High 11.5-15.0 [facility] Comment on above: Order Comment: Speci men Type: BLOOD SPECIMENOrdering Facility: [facility] Address: [address] [place] [address] Performed By: #### 5 7021-8 ####[facility] LABCLIA [id number] [place] [address] Hematocrit (Bld) [Volume fraction] 30.7 % Low 36.0-46.0 [facility] Comment on above: Order Comment: Speci men Type: BLOOD SPECIMENOrdering Facility: [facility] Address: [address] [place] [address] Performed By: #### 5 7021-8 ####[facility] LABCLIA [id number] [place] [address] Hemoglobin (Bld) [Mass/Vol] 9.6 g/dL Low 11.5-15.5 [facility] Comment on above: Order Comment: Speci men Type: BLOOD SPECIMENOrdering Facility: [facility] Address: [address] [place] [address] Performed By: #### 5 7021-8 ####[facility] LABCLIA [id number] [place] [address] Immature granulocytes (Bld) [#/Vol] 0.16 10*3/uL High <0.10 [facility] Comment on above: Order Comment: Speci men Type: BLOOD SPECIMENOrdering Facility: [facility] Address: [address] [place] [address] Performed By: #### 5 7021-8 ####[facility] LABCLIA [id number] [place] [address] Immature granulocytes/100 WBC (Bld) 1.6 % Normal [facility] Comment on above: Order Comment: Speci men Type: BLOOD SPECIMENOrdering Facility: [facility] Address: [address] [place] [address] Performed By: #### 5 7021-8 ####[facility] LABCLIA [id number] [place] [address] Lymphocytes (Bld) [#/Vol] 1.33 10*3/uL Normal 1.00-4.00 [facility] Comment on above: Order Comment: Speci men Type: BLOOD SPECIMENOrdering Facility: [facility] Address: [address] [place] [address] Performed By: #### 5 7021-8 ####[facility] LABCLIA [id number] [place] [address] Lymphocytes/100 WBC (Bld) 13.2 % Normal [facility] Comment on above: Order Comment: Speci men Type: BLOOD SPECIMENOrdering Facility: [facility] Address: [address] [place] [address] Performed By: #### 5 7021-8 ####[facility] LABCLIA [id number] [place] [address] MCH (RBC) [Entitic mass] 32.1 pg Normal 26.0-34.0 [facility] Comment on above: Order Comment: Speci men Type: BLOOD SPECIMENOrdering Facility: [facility] Address: [address] [place] [address] Performed By: #### 5 7021-8 ####[facility] LABCLIA [id number] [place] [address] MCHC (RBC) [Mass/Vol] 31.3 g/dL Normal 30.5-36.0 [facility] Comment on above: Order Comment: Speci men Type: BLOOD SPECIMENOrdering Facility: [facility] Address: [address] [place] [address] Performed By: #### 5 7021-8 ####[facility] LABCLIA [id number] [place] [address] MCV (RBC) [Entitic vol] 102.7 fL High 80.0-100.0 [facility] Comment on above: Order Comment: Speci men Type: BLOOD SPECIMENOrdering Facility: [facility] Address: [address] [place] [address] Performed By: #### 5 7021-8 ####[facility] LABCLIA [id number] [place] [address] Monocytes (Bld) [#/Vol] 0.80 10*3/uL Normal <0.87 [facility] Comment on above: Order Comment: Speci men Type: BLOOD SPECIMENOrdering Facility: [facility] Address: [address] [place] [address] Performed By: #### 5 7021-8 ####[facility] LABIA [id number] [place] [address] Monocytes/100 WBC (Bld) 7.9 % Normal [facility] Comment on above: Order Comment: Speci men Type: BLOOD SPECIMENOrdering Facility: [facility] Address: [address] [place] [address] Performed By: #### 5 7021-8 ####[facility] LABCLIA [id number] [place] [address] Neutrophils (Bld) [#/Vol] 7.44 10*3/uL Normal 1.45-7.50 [facility] Comment on above: Order Comment: Speci men Type: BLOOD SPECIMENOrdering Facility: [facility] Address: [address] [place] [address] Performed By: #### 5 7021-8 ####[facility] LABIA [id number] [place] [address] Neutrophils/100 WBC (Bld) 73.8 % Normal [facility] Comment on above: Order Comment: Speci men Type: BLOOD SPECIMENOrdering Facility: [facility] Address: [address] [place] [address] Performed By: #### 5 7021-8 ####[facility] LABCLIA [id number] [place] [address] Nucleated RBC (Bld) [#/Vol] 10*3/uL Normal <0.01 [facility] Comment on above: Order Comment: Speci men Type: BLOOD SPECIMENOrdering Facility: [facility] Address: [address] [place] [address] Performed By: #### 5 7021-8 ####[facility] LABCLIA [id number] [place] [address] Nucleated RBC/100 WBC (Bld) [Ratio] 0.0 /100 WBC Normal [facility] Comment on above: Order Comment: Speci men Type: BLOOD SPECIMENOrdering Facility: [facility] Address: [address] [place] [address] Performed By: #### 5 7021-8 ####[facility] LABCLIA [id number] [place] [address] Platelet mean volume (Bld) [Entitic vol] 10.3 fL Normal 9.0-12.7 [facility] Comment on above: Order Comment: Speci men Type: BLOOD SPECIMENOrdering Facility: [facility] Address: [address] [place] [address] Performed By: #### 5 7021-8 ####[facility] LABCLIA [id number] [place] [address] Platelets (Bld) [#/Vol] 173 10*3/uL Normal 150-400 [facility] Comment on above: Order Comment: Speci men Type: BLOOD SPECIMENOrdering Facility: [facility] Address: [address] [place] [address] Performed By: #### 5 7021-8 ####[facility] LABCLIA [id number] [place] [address] RBC (Bld) [#/Vol] 2.99 10*6/uL Low 3.90-5.20 [facility] Comment on above: Order Comment: Speci men Type: BLOOD SPECIMENOrdering Facility: [facility] Address: [address] [place] [address] Performed By: #### 5 7021-8 ####[facility] LABCLIA [id number] [place] [address] WBC (Bld) [#/Vol] 10.08 10*3/uL Normal 3.70-11.00 [facility] Comment on above: Order Comment: Speci men Type: BLOOD SPECIMENOrdering Facility: [facility] Address: [address] [place] [address] Performed By: #### 5 7021-8 ####[facility] LABIA [id number] [place] [address] Comprehensive metabolic 2000 panelon 03-17-2023 Albumin [Mass/Vol] 3.3 g/dL Low 3.9-4.9 [facility] Comment on above: Order Comment: Speci men Type: BLOOD SPECIMENOrdering Facility: [facility] Address: [address] [place] [address] Performed By: #### 2 4323-8 ####[facility] LABCLIA [id number] [place] [address] ALP [Catalytic activity/Vol] 59 U/L Normal 34-123 [facility] Comment on above: Order Comment: Speci men Type: BLOOD SPECIMENOrdering Facility: [facility] Address: [address] [place] [address] Performed By: #### 2 4323-8 ####[facility] LABIA [id number] [place] [address] ALT [Catalytic activity/Vol] 9 U/L Normal 7-38 [facility] Comment on above: Order Comment: Speci men Type: BLOOD SPECIMENOrdering Facility: [facility] Address: [address] [place] [address] Performed By: #### 2 4323-8 ####[facility] LABCLIA [id number] [place] [address] Anion gap [Moles/Vol] 13 mmol/L Normal 9-18 [facility] Comment on above: Order Comment: Speci men Type: BLOOD SPECIMENOrdering Facility: [facility] Address: [address] [place] [address] Performed By: #### 2 4323-8 ####[facility] LABCLIA [id number] [place] [address] AST [Catalytic activity/Vol] 11 U/L Low 13-35 [facility] Comment on above: Order Comment: Speci men Type: BLOOD SPECIMENOrdering Facility: [facility] Address: [address] [place] [address] Performed By: #### 2 4323-8 ####[facility] LABCLIA [id number] [place] [address] Bilirubin [Mass/Vol] 0.4 mg/dL Normal 0.2-1.3 [facility] Comment on above: Order Comment: Speci men Type: BLOOD SPECIMENOrdering Facility: [facility] Address: [address] [place] [address] Performed By: #### 2 4323-8 ####[facility] LABCLIA [id number] [place] [address] Calcium [Mass/Vol] 9.6 mg/dL Normal 8.5-10.2 [facility] Comment on above: Order Comment: Speci men Type: BLOOD SPECIMENOrdering Facility: [facility] Address: [address] [place] [address] Performed By: #### 2 4323-8 ####[facility] LABCLIA [id number] [place] [address] Chloride [Moles/Vol] 97 mmol/L Normal 97-105 [facility] Comment on above: Order Comment: Speci men Type: BLOOD SPECIMENOrdering Facility: [facility] Address: [address] [place] [address] Performed By: #### 2 4323-8 ####[facility] LABCLIA [id number] [place] [address] CO2 [Moles/Vol] 33 mmol/L High 22-30 [facility] Comment on above: Order Comment: Speci men Type: BLOOD SPECIMENOrdering Facility: [facility] Address: [address] [place] [address] Performed By: #### 2 4323-8 ####[facility] LABCLIA [id number] [place] [address] Creatinine [Mass/Vol] 14.58 mg/dL High 0.58-0.96 [facility] Comment on above: Order Comment: Speci men Type: BLOOD SPECIMENOrdering Facility: [facility] Address: [address] [place] [address] Performed By: #### 2 4323-8 ####[facility] LABCLIA [id number] [place] [address] Creatinine and Glomerular filtration rate.predicted panel (S/P/Bld) 3 mL/min/1.73m??? Low >=60 [facility] Comment on above: Order Comment: Speci men Type: BLOOD SPECIMENOrdering Facility: [facility] Address: [address] [place] [address] Result Comment: Rylee mated Glomerular Filtration Rate (eGFR) is calculated using the 2020 CKD-EPI creatinine equation. This equation utilizes serum creatinine, sex, and age as parameters. The creatinine assay has traceable calibration to isotope dilution-mass spectrometry. Refer to KDIGO guidelines for clinical interpretation. In patients with unstable renal function, e.g. those with acute kidney injury, the eGFR may not accurately reflect actual GFR. Performed By: #### 2 4323-8 ####[facility] LABCLIA [id number] [place] [address] Glucose [Mass/Vol] 91 mg/dL Normal 74-99 [facility] Comment on above: Order Comment: Speci men Type: BLOOD SPECIMENOrdering Facility: [facility] Address: [address] [place] [address] Result Comment: The [place] Diabetes [employer] (ADA) provides guidance for cutoff values for fasting glucose and random glucose. The ADA defines fasting as no caloric intake for at least 8 hours. Fasting plasma glucose results between 100 to 125 mg/dL indicate increased risk for diabetes (prediabetes).Fasting plasma glucose results greater than or equal to 126 mg/dL meet the criteria for diagnosis of diabetes. In the absence of unequivocal hyperglycemia, results should be confirmed by repeat testing. In a patient with classic symptoms of hyperglycemia or hyperglycemic crisis, random plasma glucose results greater than or equal to 200 mg/dL meet the criteria for diagnosis of diabetes.Reference: Standards of Medical Care in Diabetes 2016, [place] [employer]. Diabetes Care. 2016.39(Suppl 1). Performed By: #### 2 4323-8 ####[facility] LABCLIA [id number] [place] [address] Potassium [Moles/Vol] 3.7 mmol/L Normal 3.7-5.1 [facility] Comment on above: Order Comment: Speci men Type: BLOOD SPECIMENOrdering Facility: [facility] Address: [address] [place] [address] Performed By: #### 2 4323-8 ####[facility] LABCLIA [id number] [place] [address] Protein [Mass/Vol] 5.0 g/dL Low 6.3-8.0 [facility] Comment on above: Order Comment: Speci men Type: BLOOD SPECIMENOrdering Facility: [facility] Address: [address] [place] [address] Performed By: #### 2 4323-8 ####[facility] LABCLIA [id number] [place] [address] Sodium [Moles/Vol] 143 mmol/L Normal 136-144 [facility] Comment on above: Order Comment: Speci men Type: BLOOD SPECIMENOrdering Facility: [facility] Address: [address] [place] [address] Performed By: #### 2 4323-8 ####[facility] LABCLIA [id number] [place] [address] Urea nitrogen [Mass/Vol] 38 mg/dL High 7-21 [facility] Comment on above: Order Comment: Speci men Type: BLOOD SPECIMENOrdering Facility: [facility] Address: [address] [place] [address] Performed By: #### 2 4323-8 ####[facility] LABCLIA [id number] [place] [address] Ferritin SerPl-mCncon 2023 Ferritin [Mass/Vol] 973.0 ng/mL High 14.7-205.1 [facility] Comment on above: Order Comment: Speci men Type: BLOOD SPECIMENOrdering Facility: [facility] Address: [address] [place] [address] Performed By: #### 5 0190-8, 2131-11, 2275-06, 2283-10 ####[facility] LABCLIA [id number] [place] [address] [place] [facility] Folate SerPl-mCncon 03-17-19 24 Folate [Mass/Vol] ng/mL Normal >4.7 [facility] Comment on above: Order Comment: Speci men Type: BLOOD SPECIMENOrdering Facility: [facility] Address: [address] [place] [address] Result Comment: A re sult of > 20 ng/mL is not necessarily indicative of a pathologic or treatable condition: it reflects a limitation of the test methodology.Assay reference range: 4.8 to 24.2 ng/mL. Suitable for detection of folate deficiency.Reference:Folate III (Folate III) [package insert V 1.0 German]. [facility], [place], [place]: January 2015. Performed By: #### 5 0190-8, 9, 4, 8 ####[facility] LABCLIA [id number] [place] [address] [place] Iron and Iron binding capaci ty panelon 03-17-2023 Iron [Mass/Vol] 79 ug/dL Normal 41-186 [facility] Comment on above: Order Comment: Speci men Type: BLOOD SPECIMENOrdering Facility: [facility] Address: [address] [place], [place] [address] Performed By: #### 5 0190-8, 9, 2275-06, 2283-10 ####[facility] LABCLIA [id number] [place] [id number] [place] Iron binding capacity [Mass/Vol] 121 ug/dL Low 232-386 [facility] Comment on above: Order Comment: Speci men Type: BLOOD SPECIMENOrdering Facility: [facility] Address: [address] [place] [address] Performed By: #### 5 0190-8, 2131-11, 2275-06, 2283-10 ####[facility] LABCLIA [id number] [place] [id number] [place] Iron/TIBC [Molar ratio] 65.3 % High 15.0-57.0 [facility] Comment on above: Order Comment: Speci men Type: BLOOD SPECIMENOrdering Facility: [facility] Address: [address] [place] [address] Performed By: #### 5 0190-8, 9, 2275-06, 2283-10 ####[facility] LABCLIA [id number] [place] [id number] [place] Vit B12 SerPl-mCncon 024 Cobalamin (Vitamin B12) [Mass/Vol] 713 pg/mL Normal 232-1245 [facility] Comment on above: Order Comment: Speci men Type: BLOOD SPECIMENOrdering Facility: [facility] Address: [address] [place] [address] Performed By: #### 5 0190-8, 9, 2275-06, 2283-10 ####[facility] LABCLIA [id number] [facility] [id number] [place] [address] [place] [address] CHEST WO IVCONon 03-14-20 CT CHEST WO IVCON * * *Final Report* * * DATE OF EXAM: Mar 14 2023 8:50AM [facility] 0541 - CT CHEST WO IVCON / PROCEDURE REASON: multiple diagnoses * * * * Physician Interpretation * * * * EXAMINATION: CHEST CT WITHOUT CONTRAST CLINICAL HISTORY: Fever, unspecified fever cause Cough, unspecified type 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 with renal involvement (HCC) Technique: Spiral CT acquisition of the chest from the thoracic inlet to the upper abdomen without contrast. MQ: [id number]_6 CT Radiation dose: Integrated Dose-length product (DLP) for this visit = 327 mGy*cm CT Dose Reduction Employed: Automated exposure control(AEC) and iterative recon Comparison: Prior chest CT dated 01/02/2022 RESULT: Lines, tubes, and devices: Left anterior chest wall loop recorder device. Lung parenchyma and airways: No consolidation. No suspicious pulmonary nodule. The central airways are patent. Pleural space: No pleural effusion. No pleural thickening. Lower neck, lymph nodes, and mediastinum: The imaged thyroid gland is normal. No lymphadenopathy in the supraclavicular, axillary, mediastinal, or hilar regions. Heart, pericardium, and thoracic vessels: The thoracic aorta and main pulmonary artery are normal in caliber. The cardiac chambers are normal in size. No coronary artery atherosclerotic calcifications are noted, although the study is not optimized for coronary assessment. No pericardial effusion or thickening. Bones and soft tissues: Mild degenerative changes of the thoracic spine. Left lateral fourth, fifth, sixth subacute rib fractures. Upper abdomen: Cholecystectomy clips and pneumobilia unchanged. Minimal upper abdominal ascites and minimal subdiaphragmatic intraperitoneal air presumably related to reported peritoneal dialysis. Small left upper pole renal cyst unchanged. Emergency Care Tech (topogram) images: No additional findings. IMPRESSION: No acute pulmonary disease. 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: RADHA Transcribe Date/Time: Mar 15 2023 12:41P Dictated by : SHELLY MARIA MD This examination was interpreted and the report reviewed and electronically signed by: SHELLY MARIA MD on Mar 15 2023 12:47PM EST [id number] [facility] CNPNon 03-12-2023 CNPN Normal [facility] CBC W Auto Differential pane l (Bld)on 03-10-2023 Anisocytosis Ql (Bld) Present Normal [facility] Comment on above: Order Comment: Speci men Type: BLOOD SPECIMENOrdering Facility: [facility] Address: [address] [place] [address] Performed By: #### 5 7021-8 ####[facility] LABCLIA [id number] [address] LABCLIA [id number] [place] [address] [place] Basophils (Bld) [#/Vol] 0.05 10*3/uL Normal <0.11 [facility] Comment on above: Order Comment: Speci men Type: BLOOD SPECIMENOrdering Facility: [facility] Address: [address] [place] [address] Performed By: #### 5 7021-8 ####[facility] LABCLIA [id number] [address] LABCLIA [id number] [place] [address] [place] Basophils/100 WBC (Bld) 0.9 % Normal [facility] Comment on above: Order Comment: Speci men Type: BLOOD SPECIMENOrdering Facility: [facility] Address: [address] [place] [address] Performed By: #### 5 7021-8 ####[facility] LABCLIA [id number] [address] LABCLIA [id number] [place] [address] [place] Dacrocytes LM Ql (Bld) Few Normal [facility] Comment on above: Order Comment: Speci men Type: BLOOD SPECIMENOrdering Facility: [facility] Address: [address] [place] [address] Performed By: #### 5 7021-8 ####[facility] LABCLIA [id number] [address] LABCLIA [id number] [place] [address] [place] Differential cell count method Nom (Bld) Manual Normal [facility] Comment on above: Order Comment: Speci men Type: BLOOD SPECIMENOrdering Facility: [facility] Address: [address] [place] [address] Performed By: #### 5 7021-8 ####[facility] LABCLIA [id number] [address] LABCLIA [id number] [place] [address] [place] Eosinophils (Bld) [#/Vol] 0.31 10*3/uL Normal <0.46 [facility] Comment on above: Order Comment: Speci men Type: BLOOD SPECIMENOrdering Facility: [facility] Address: [address] [place] [address] Performed By: #### 5 7021-8 ####[facility] LABCLIA [id number] [address] LABCLIA [id number] [place] [address] [place] Eosinophils/100 WBC (Bld) 5.2 % Normal [facility] Comment on above: Order Comment: Speci men Type: BLOOD SPECIMENOrdering Facility: [facility] Address: [address] [place] [address] Performed By: #### 5 7021-8 ####[facility] LABCLIA [id number] [address] LABCLIA [id number] [place] [address] [place] Erythrocyte distribution width (RBC) [Ratio] 19.8 % High 11.5-15.0 [facility] Comment on above: Order Comment: Speci men Type: BLOOD SPECIMENOrdering Facility: [facility] Address: [address] [place] [address] Performed By: #### 5 7021-8 ####[facility] LABCLIA [id number] [address] LABCLIA [id number] [place] [address] [place] Hematocrit (Bld) [Volume fraction] 35.2 % Low 36.0-46.0 [facility] Comment on above: Order Comment: Speci men Type: BLOOD SPECIMENOrdering Facility: [facility] Address: [address] [place] [address] Performed By: #### 5 7021-8 ####[facility] LABCLIA [id number] [address] LABCLIA [id number] [place] [address] [place] Hemoglobin (Bld) [Mass/Vol] 11.0 g/dL Low 11.5-15.5 [facility] Comment on above: Order Comment: Speci men Type: BLOOD SPECIMENOrdering Facility: [facility] Address: [address] [place] [address] Performed By: #### 5 7021-8 ####[facility] LABCLIA [id number] [address] LABCLIA [id number] [place] [address] [place] Lymphocytes (Bld) [#/Vol] 1.28 10*3/uL Normal 1.00-4.00 [facility] Comment on above: Order Comment: Speci men Type: BLOOD SPECIMENOrdering Facility: [facility] Address: [address] [place] [address] Performed By: #### 5 7021-8 ####[facility] LABCLIA [id number] [place] [address] LABCLIA [id number] [place] [address] [place] Lymphocytes/100 WBC (Bld) 21.7 % Normal [facility] Comment on above: Order Comment: Speci men Type: BLOOD SPECIMENOrdering Facility: [facility] Address: [address] [place] [address] Performed By: #### 5 7021-8 ####[facility] LABCLIA [id number] [address] LABCLIA [id number] [place] [address] [place] MCH (RBC) [Entitic mass] 32.1 pg Normal 26.0-34.0 [facility] Comment on above: Order Comment: Speci men Type: BLOOD SPECIMENOrdering Facility: [facility] Address: [address] [place] [address] Performed By: #### 5 7021-8 ####[facility] LABCLIA [id number] [address] LABCLIA [id number] [place] [address] [place] MCHC (RBC) [Mass/Vol] 31.3 g/dL Normal 30.5-36.0 [facility] Comment on above: Order Comment: Speci men Type: BLOOD SPECIMENOrdering Facility: [facility] Address: [address] [place] [address] Performed By: #### 5 7021-8 ####[facility] LABCLIA [id number] [address] LABCLIA [id number] [place] [address] [place] MCV (RBC) [Entitic vol] 102.6 fL High 80.0-100.0 [facility] Comment on above: Order Comment: Speci men Type: BLOOD SPECIMENOrdering Facility: [facility] Address: [address] [place] [address] Performed By: #### 5 7021-8 ####[facility] LABCLIA [id number] [address] LABCLIA [id number] [place] [address] [place] Monocytes (Bld) [#/Vol] 0.61 10*3/uL Normal <0.87 [facility] Comment on above: Order Comment: Speci men Type: BLOOD SPECIMENOrdering Facility: [facility] Address: [address] [place] [address] Performed By: #### 5 7021-8 ####[facility] LABCLIA [id number] [address] LABCLIA [id number] [place] [address] [place] Monocytes/100 WBC (Bld) 10.4 % Normal [facility] Comment on above: Order Comment: Speci men Type: BLOOD SPECIMENOrdering Facility: [facility] Address: [address] [place] [address] Performed By: #### 5 7021-8 ####[facility] LABCLIA [id number] [address] LABCLIA [id number] [place] [address] [place] MYELO% 2.6 % Normal [facility] Comment on above: Order Comment: Speci men Type: BLOOD SPECIMENOrdering Facility: [facility] Address: [address] [place] [address] Performed By: #### 5 7021-8 ####[facility] LABCLIA [id number] [address] LABCLIA [id number] [place] [address] [place] Neutrophils (Bld) [#/Vol] 3.48 10*3/uL Normal 1.45-7.50 [facility] Comment on above: Order Comment: Speci men Type: BLOOD SPECIMENOrdering Facility: [facility] Address: [address] [place] [address] Performed By: #### 5 7021-8 ####[facility] LABCLIA [id number] [address] LABCLIA [id number] [place] [address] [place] Neutrophils/100 WBC (Bld) 59.2 % Normal [facility] Comment on above: Order Comment: Speci men Type: BLOOD SPECIMENOrdering Facility: [facility] Address: [address] [place] [address] Performed By: #### 5 7021-8 ####[facility] LABCLIA [id number] [address] LABCLIA [id number] [place] [address] [place] Nucleated RBC (Bld) [#/Vol] 0.10 10*3/uL High <0.01 [facility] Comment on above: Order Comment: Speci men Type: BLOOD SPECIMENOrdering Facility: [facility] Address: [address] [place] [address] Performed By: #### 5 7021-8 ####[facility] LABCLIA [id number] [address] LABCLIA [id number] [place] [address] [place] Nucleated RBC/100 WBC (Bld) [Ratio] 1.7 /100 WBC Normal [facility] Comment on above: Order Comment: Speci men Type: BLOOD SPECIMENOrdering Facility: [facility] Address: [address] [place] [address] Performed By: #### 5 7021-8 ####[facility] LABCLIA [id number] [address] LABCLIA [id number] [place] [address] [place] Ovalocytes LM Ql (Bld) Few Normal [facility] Comment on above: Order Comment: Speci men Type: BLOOD SPECIMENOrdering Facility: [facility] Address: [address] [place] [address] Performed By: #### 5 7021-8 ####[facility] LABCLIA [id number] [address] LABCLIA [id number] [place] [address] [place] Platelet mean volume (Bld) [Entitic vol] 9.2 fL Normal 9.0-12.7 [facility] Comment on above: Order Comment: Speci men Type: BLOOD SPECIMENOrdering Facility: [facility] Address: [address] [place] [address] Performed By: #### 5 7021-8 ####[facility] LABCLIA [id number] [address] LABCLIA [id number] [place] [address] [place] Platelets (Bld) [#/Vol] 315 10*3/uL Normal 150-400 [facility] Comment on above: Order Comment: Speci men Type: BLOOD SPECIMENOrdering Facility: [facility] Address: [address] [place] [address] Performed By: #### 5 7021-8 ####[facility] LABCLIA [id number] [address] LABCLIA [id number] [place] [address] [place] Platelets Estimate (Bld) [#/Vol] Adequate Normal [facility] Comment on above: Order Comment: Speci men Type: BLOOD SPECIMENOrdering Facility: [facility] Address: [address] [place] [address] Performed By: #### 5 7021-8 ####[facility] LABCLIA [id number] [address] LABCLIA [id number] [place] [address] [place] Polychromasia LM Ql (Bld) Slight Normal [facility] Comment on above: Order Comment: Speci men Type: BLOOD SPECIMENOrdering Facility: [facility] Address: [address] [place] [address] Performed By: #### 5 7021-8 ####[facility] LABCLIA [id number] [address] LABCLIA [id number] [place] [address] [place] RBC (Bld) [#/Vol] 3.43 10*6/uL Low 3.90-5.20 [facility] Comment on above: Order Comment: Speci men Type: BLOOD SPECIMENOrdering Facility: [facility] Address: [address] [place] [address] Performed By: #### 5 7021-8 ####[facility] LABCLIA [id number] [address] LABCLIA [id number] [place] [address] [place] RBC FRAGMENTS Few Abnormal None Seen [facility] Comment on above: Order Comment: Speci men Type: BLOOD SPECIMENOrdering Facility: [facility] Address: [address] [place] [address] Performed By: #### 5 7021-8 ####[facility] LABCLIA [id number] [address] LABCLIA [id number] [place] [address] [place] RED CELL MORPH Reviewed: see result s of individual morphologies Normal [facility] Comment on above: Order Comment: Speci men Type: BLOOD SPECIMENOrdering Facility: [facility] Address: [address] [place] [address] Performed By: #### 5 7021-8 ####[facility] LABCLIA [id number] [address] LABCLIA [id number] [place] [address] [place] WBC (Bld) [#/Vol] 5.88 10*3/uL Normal 3.70-11.00 [facility] Comment on above: Order Comment: Speci men Type: BLOOD SPECIMENOrdering Facility: [facility] Address: [address] [place] [address] Performed By: #### 5 7021-8 ####[facility] LABCLIA [id number] [place] [address] LABCLIA [id number] [place] [address] [place] WBC Left Shift Ql (Bld) Present Normal [facility] Comment on above: Order Comment: Speci men Type: BLOOD SPECIMENOrdering Facility: [facility] Address: [address] [place] [address] Performed By: #### 5 7021-8 ####[facility] LABCLIA [id number] [address] LABCLIA [id number] [place] [address] [place] CNCOon 03-10-2023 CNCO Letter Text Normal [facility] CBC W Auto Differential pane l (Bld)on 03-03-2023 Basophils (Bld) [#/Vol] 0.03 10*3/uL Normal <0.11 [facility] Comment on above: Order Comment: Speci men Type: BLOOD SPECIMENOrdering Facility: [facility] Address: [address] [place] [address] Performed By: #### 5 7021-8 ####[facility] LABCLIA [id number] [place] [address] Basophils/100 WBC (Bld) 1.2 % Normal [facility] Comment on above: Order Comment: Speci men Type: BLOOD SPECIMENOrdering Facility: [facility] Address: [address] [place] [address] Performed By: #### 5 7021-8 ####[facility] LABCLIA [id number] [place] [address] Differential cell count method Nom (Bld) Auto Normal [facility] Comment on above: Order Comment: Speci men Type: BLOOD SPECIMENOrdering Facility: [facility] Address: [address] [place] [address] Performed By: #### 5 7021-8 ####[facility] LABCLIA [id number] [place] [address] Eosinophils (Bld) [#/Vol] 0.26 10*3/uL Normal <0.46 [facility] Comment on above: Order Comment: Speci men Type: BLOOD SPECIMENOrdering Facility: [facility] Address: [address] [place] [address] Performed By: #### 5 7021-8 ####[facility] LABCLIA [id number] [place] [address] Eosinophils/100 WBC (Bld) 10.2 % Normal [facility] Comment on above: Order Comment: Speci men Type: BLOOD SPECIMENOrdering Facility: [facility] Address: [address] [place] [address] Performed By: #### 5 7021-8 ####[facility] LABCLIA [id number] [place] [address] Erythrocyte distribution width (RBC) [Ratio] 21.4 % High 11.5-15.0 [facility] Comment on above: Order Comment: Speci men Type: BLOOD SPECIMENOrdering Facility: [facility] Address: [address] [place] [address] Performed By: #### 5 7021-8 ####[facility] LABCLIA [id number] [place] [address] Hematocrit (Bld) [Volume fraction] 29.2 % Low 36.0-46.0 [facility] Comment on above: Order Comment: Speci men Type: BLOOD SPECIMENOrdering Facility: [facility] Address: [address] [place] [address] Performed By: #### 5 7021-8 ####[facility] LABIA [id number] [place] [address] Hemoglobin (Bld) [Mass/Vol] 9.4 g/dL Low 11.5-15.5 [facility] Comment on above: Order Comment: Speci men Type: BLOOD SPECIMENOrdering Facility: [facility] Address: [address] [place] [address] Performed By: #### 5 7021-8 ####[facility] LABIA [id number] [place] [address] Immature granulocytes (Bld) [#/Vol] 10*3/uL Normal <0.10 [facility] Comment on above: Order Comment: Speci men Type: BLOOD SPECIMENOrdering Facility: [facility] Address: [address] [place] [address] Performed By: #### 5 7021-8 ####[facility] LABIA [id number] [place] [address] Immature granulocytes/100 WBC (Bld) 0.4 % Normal [facility] Comment on above: Order Comment: Speci men Type: BLOOD SPECIMENOrdering Facility: [facility] Address: [address] [place] [address] Performed By: #### 5 7021-8 ####[facility] LABCLIA [id number] [place] [address] Lymphocytes (Bld) [#/Vol] 0.91 10*3/uL Low 1.00-4.00 [facility] Comment on above: Order Comment: Speci men Type: BLOOD SPECIMENOrdering Facility: [facility] Address: [address] [place] [address] Performed By: #### 5 7021-8 ####[facility] LABCLIA [id number] [place] [address] Lymphocytes/100 WBC (Bld) 35.8 % Normal [facility] Comment on above: Order Comment: Speci men Type: BLOOD SPECIMENOrdering Facility: [facility] Address: [address] [place] [address] Performed By: #### 5 7021-8 ####[facility] LABCLIA [id number] [place] [address] MCH (RBC) [Entitic mass] 32.2 pg Normal 26.0-34.0 [facility] Comment on above: Order Comment: Speci men Type: BLOOD SPECIMENOrdering Facility: [facility] Address: [address] [place] [address] Performed By: #### 5 7021-8 ####[facility] LABCLIA [id number] [place] [address] MCHC (RBC) [Mass/Vol] 32.2 g/dL Normal 30.5-36.0 [facility] Comment on above: Order Comment: Speci men Type: BLOOD SPECIMENOrdering Facility: [facility] Address: [address] [place] [address] Performed By: #### 5 7021-8 ####[facility] LABCLIA [id number] [place] [address] MCV (RBC) [Entitic vol] 100.0 fL Normal 80.0-100.0 [facility] Comment on above: Order Comment: Speci men Type: BLOOD SPECIMENOrdering Facility: [facility] Address: [address] [place] [address] Performed By: #### 5 7021-8 ####[facility] LABCLIA [id number] [place] [address] Monocytes (Bld) [#/Vol] 0.72 10*3/uL Normal <0.87 [facility] Comment on above: Order Comment: Speci men Type: BLOOD SPECIMENOrdering Facility: [facility] Address: [address] [place] [address] Performed By: #### 5 7021-8 ####[facility] LABCLIA [id number] [place] [address] Monocytes/100 WBC (Bld) 28.3 % Normal [facility] Comment on above: Order Comment: Speci men Type: BLOOD SPECIMENOrdering Facility: [facility] Address: [address] [place] [address] Performed By: #### 5 7021-8 ####[facility] LABCLIA [id number] [place] [address] Neutrophils (Bld) [#/Vol] 0.61 10*3/uL Low 1.45-7.50 [facility] Comment on above: Order Comment: Speci men Type: BLOOD SPECIMENOrdering Facility: [facility] Address: [address] [place] [address] Performed By: #### 5 7021-8 ####[facility] LABCLIA [id number] [place] [address] Neutrophils/100 WBC (Bld) 24.1 % Normal [facility] Comment on above: Order Comment: Speci men Type: BLOOD SPECIMENOrdering Facility: [facility] Address: [address] [place] [address] Performed By: #### 5 7021-8 ####[facility] LABCLIA [id number] [place] [address] Nucleated RBC (Bld) [#/Vol] 10*3/uL Normal <0.01 [facility] Comment on above: Order Comment: Speci men Type: BLOOD SPECIMENOrdering Facility: [facility] Address: [address] [place] [address] Performed By: #### 5 7021-8 ####[facility] LABCLIA [id number] [place] [address] Nucleated RBC/100 WBC (Bld) [Ratio] 0.0 /100 WBC Normal [facility] Comment on above: Order Comment: Speci men Type: BLOOD SPECIMENOrdering Facility: [facility] Address: [address] [place] [address] Performed By: #### 5 7021-8 ####[facility] LABCLIA [id number] [place] [address] Platelet mean volume (Bld) [Entitic vol] 9.6 fL Normal 9.0-12.7 [facility] Comment on above: Order Comment: Speci men Type: BLOOD SPECIMENOrdering Facility: [facility] Address: [address] [place] [address] Performed By: #### 5 7021-8 ####[facility] LABCLIA [id number] [place] [address] Platelets (Bld) [#/Vol] 332 10*3/uL Normal 150-400 [facility] Comment on above: Order Comment: Speci men Type: BLOOD SPECIMENOrdering Facility: [facility] Address: [address] [place] [address] Performed By: #### 5 7021-8 ####[facility] LABCLIA [id number] [place] [address] RBC (Bld) [#/Vol] 2.92 10*6/uL Low 3.90-5.20 [facility] Comment on above: Order Comment: Speci men Type: BLOOD SPECIMENOrdering Facility: [facility] Address: [address] [place] [address] Performed By: #### 5 7021-8 ####[facility] LABCLIA [id number] [place] [address] WBC (Bld) [#/Vol] 2.54 10*3/uL Low 3.70-11.00 [facility] Comment on above: Order Comment: Speci men Type: BLOOD SPECIMENOrdering Facility: [facility] Address: [address] [place] [address] Performed By: #### 5 7021-8 ####[facility] LABCLIA [id number] [place] [address] CNOVSPon 03-03-2023 CNOVSP Normal [facility] metabolic 2000 panelon 03-03-2023 Albumin [Mass/Vol] 3.3 g/dL Low 3.9-4.9 [facility] Comment on above: Order Comment: Speci men Type: BLOOD SPECIMENOrdering Facility: [facility] Address: [address] [place] [address] Performed By: #### 2 4323-8 ####[facility] LABCLIA [id number] [place] [address] ALP [Catalytic activity/Vol] 63 U/L Normal 34-123 [facility] Comment on above: Order Comment: Speci men Type: BLOOD SPECIMENOrdering Facility: [facility] Address: [address] [place] [address] Performed By: #### 2 4323-8 ####[facility] LABCLIA [id number] [place] [address] ALT [Catalytic activity/Vol] 9 U/L Normal 7-38 [facility] Comment on above: Order Comment: Speci men Type: BLOOD SPECIMENOrdering Facility: [facility] Address: [address] [place] [address] Performed By: #### 2 4323-8 ####[facility] LABCLIA [id number] [place] [address] Anion gap [Moles/Vol] 17 mmol/L Normal 9-18 [facility] Comment on above: Order Comment: Speci men Type: BLOOD SPECIMENOrdering Facility: [facility] Address: [address] [place] [address] Performed By: #### 2 4323-8 ####[facility] LABCLIA [id number] [place] [address] AST [Catalytic activity/Vol] 10 U/L Low 13-35 [facility] Comment on above: Order Comment: Speci men Type: BLOOD SPECIMENOrdering Facility: [facility] Address: [address] [place] [address] Performed By: #### 2 4323-8 ####[facility] LABCLIA [id number] [place] [address] Bilirubin [Mass/Vol] 0.4 mg/dL Normal 0.2-1.3 [facility] Comment on above: Order Comment: Speci men Type: BLOOD SPECIMENOrdering Facility: [facility] Address: [address] [place] [address] Performed By: #### 2 4323-8 ####[facility] LABCLIA [id number] [place] [address] Calcium [Mass/Vol] 9.5 mg/dL Normal 8.5-10.2 [facility] Comment on above: Order Comment: Speci men Type: BLOOD SPECIMENOrdering Facility: [facility] Address: [address] [place] [address] Performed By: #### 2 4323-8 ####[facility] LABCLIA [id number] [place] [address] Chloride [Moles/Vol] 98 mmol/L Normal 97-105 [facility] Comment on above: Order Comment: Speci men Type: BLOOD SPECIMENOrdering Facility: [facility] Address: [address] [place] [address] Performed By: #### 2 4323-8 ####[facility] LABCLIA [id number] [place] [address] CO2 [Moles/Vol] 28 mmol/L Normal 22-30 [facility] Comment on above: Order Comment: Speci men Type: BLOOD SPECIMENOrdering Facility: [facility] Address: [address] [place] [address] Performed By: #### 2 4323-8 ####[facility] LABCLIA [id number] [place] [address] Creatinine [Mass/Vol] 16.74 mg/dL High 0.58-0.96 [facility] Comment on above: Order Comment: Speci men Type: BLOOD SPECIMENOrdering Facility: [facility] Address: [address] [place] [address] Performed By: #### 2 4323-8 ####[facility] LABCLIA [id number] [place] [address] Creatinine and Glomerular filtration rate.predicted panel (S/P/Bld) 2 mL/min/1.73m??? Low >=60 [facility] Comment on above: Order Comment: Speci men Type: BLOOD SPECIMENOrdering Facility: [facility] Address: [address] [place] [address] Result Comment: Rlyee mated Glomerular Filtration Rate (eGFR) is calculated using the 2020 CKD-EPI creatinine equation. This equation utilizes serum creatinine, sex, and age as parameters. The creatinine assay has traceable calibration to isotope dilution-mass spectrometry. Refer to KDIGO guidelines for clinical interpretation. In patients with unstable renal function, e.g. those with acute kidney injury, the eGFR may not accurately reflect actual GFR. Performed By: #### 2 4323-8 ####[facility] LABIA [id number] [place] [address] Glucose [Mass/Vol] 98 mg/dL Normal 74-99 [facility] Comment on above: Order Comment: Speci men Type: BLOOD SPECIMENOrdering Facility: [facility] Address: [address] [place] [address] Result Comment: The [place] Diabetes [employer] (ADA) provides guidance for cutoff values for fasting glucose and random glucose. The ADA defines fasting as no caloric intake for at least 8 hours. Fasting plasma glucose results between 100 to 125 mg/dL indicate increased risk for diabetes (prediabetes).Fasting plasma glucose results greater than or equal to 126 mg/dL meet the criteria for diagnosis of diabetes. In the absence of unequivocal hyperglycemia, results should be confirmed by repeat testing. In a patient with classic symptoms of hyperglycemia or hyperglycemic crisis, random plasma glucose results greater than or equal to 200 mg/dL meet the criteria for diagnosis of diabetes.Reference: Standards of Medical Care in Diabetes 2016, [place] [employer]. Diabetes Care. 2016.39(Suppl 1). Performed By: #### 2 4323-8 ####[facility] LABCLIA [id number] [place] [address] Potassium [Moles/Vol] 4.5 mmol/L Normal 3.7-5.1 [facility] Comment on above: Order Comment: Speci men Type: BLOOD SPECIMENOrdering Facility: [facility] Address: [address] [place] [address] Performed By: #### 2 4323-8 ####[facility] LABIA [id number] [place] [address] Protein [Mass/Vol] 5.2 g/dL Low 6.3-8.0 [facility] Comment on above: Order Comment: Speci men Type: BLOOD SPECIMENOrdering Facility: [facility] Address: [address] [place] [address] Performed By: #### 2 4323-8 ####[facility] LABCLIA [id number] [place] [address] Sodium [Moles/Vol] 143 mmol/L Normal 136-144 [facility] Comment on above: Order Comment: Speci men Type: BLOOD SPECIMENOrdering Facility: [facility] Address: [address] [place] [address] Performed By: #### 2 4323-8 ####[facility] LABCLIA [id number] [place] [address] Urea nitrogen [Mass/Vol] 41 mg/dL High 7-21 [facility] Comment on above: Order Comment: Speci men Type: BLOOD SPECIMENOrdering Facility: [facility] Address: [address] [place] [address] Performed By: #### 2 4323-8 ####[facility] LABCLIA [id number] [place] [address] CBC W Auto Differential pane l (Bld)on 02-24-2023 Basophils (Bld) [#/Vol] 10*3/uL Normal <0.11 [facility] Comment on above: Order Comment: Speci men Type: BLOOD SPECIMENOrdering Facility: [facility] Address: [address] [place] [address] Performed By: #### 5 7021-8 ####[facility] LABCLIA [id number] [place] [address] Basophils/100 WBC (Bld) 0.6 % Normal [facility] Comment on above: Order Comment: Speci men Type: BLOOD SPECIMENOrdering Facility: [facility] Address: [address] [place] [address] Performed By: #### 5 7021-8 ####[facility] LABCLIA [id number] [place] [address] Differential cell count method Nom (Bld) Auto Normal [facility] Comment on above: Order Comment: Speci men Type: BLOOD SPECIMENOrdering Facility: [facility] Address: [address] [place] [address] Performed By: #### 5 7021-8 ####[facility] LABCLIA [id number] [place] [address] Eosinophils (Bld) [#/Vol] 0.17 10*3/uL Normal <0.46 [facility] Comment on above: Order Comment: Speci men Type: BLOOD SPECIMENOrdering Facility: [facility] Address: [address] [place] [address] Performed By: #### 5 7021-8 ####[facility] LABCLIA [id number] [place] [address] Eosinophils/100 WBC (Bld) 5.5 % Normal [facility] Comment on above: Order Comment: Speci men Type: BLOOD SPECIMENOrdering Facility: [facility] Address: [address] [place] [address] Performed By: #### 5 7021-8 ####[facility] LABCLIA [id number] [place] [address] Erythrocyte distribution width (RBC) [Ratio] 23.9 % High 11.5-15.0 [facility] Comment on above: Order Comment: Speci men Type: BLOOD SPECIMENOrdering Facility: [facility] Address: [address] [place] [address] Performed By: #### 5 7021-8 ####[facility] LABCLIA [id number] [place] [address] Hematocrit (Bld) [Volume fraction] 28.3 % Low 36.0-46.0 [facility] Comment on above: Order Comment: Speci men Type: BLOOD SPECIMENOrdering Facility: [facility] Address: [address] [place] [address] Performed By: #### 5 7021-8 ####[facility] LABCLIA [id number] [place] [address] Hemoglobin (Bld) [Mass/Vol] 9.1 g/dL Low 11.5-15.5 [facility] Comment on above: Order Comment: Speci men Type: BLOOD SPECIMENOrdering Facility: [facility] Address: [address] [place] [address] Performed By: #### 5 7021-8 ####[facility] LABCLIA [id number] [place] [address] Immature granulocytes (Bld) [#/Vol] 0.05 10*3/uL Normal <0.10 [facility] Comment on above: Order Comment: Speci men Type: BLOOD SPECIMENOrdering Facility: [facility] Address: [address] [place] [address] Performed By: #### 5 7021-8 ####[facility] LABCLIA [id number] [place] [address] Immature granulocytes/100 WBC (Bld) 1.6 % Normal [facility] Comment on above: Order Comment: Speci men Type: BLOOD SPECIMENOrdering Facility: [facility] Address: [address] [place] [address] Performed By: #### 5 7021-8 ####[facility] LABCLIA [id number] [place] [address] Lymphocytes (Bld) [#/Vol] 0.59 10*3/uL Low 1.00-4.00 [facility] Comment on above: Order Comment: Speci men Type: BLOOD SPECIMENOrdering Facility: [facility] Address: [address] [place] [address] Performed By: #### 5 7021-8 ####[facility] LABCLIA [id number] [place] [address] Lymphocytes/100 WBC (Bld) 19.2 % Normal [facility] Comment on above: Order Comment: Speci men Type: BLOOD SPECIMENOrdering Facility: [facility] Address: [address] [place] [address] Performed By: #### 5 7021-8 ####[facility] LABCLIA [id number] [place] [address] MCH (RBC) [Entitic mass] 32.5 pg Normal 26.0-34.0 [facility] Comment on above: Order Comment: Speci men Type: BLOOD SPECIMENOrdering Facility: [facility] Address: [address] [place] [address] Performed By: #### 5 7021-8 ####[facility] LABCLIA [id number] [place] [address] MCHC (RBC) [Mass/Vol] 32.2 g/dL Normal 30.5-36.0 [facility] Comment on above: Order Comment: Speci men Type: BLOOD SPECIMENOrdering Facility: [facility] Address: [address] [place] [address] Performed By: #### 5 7021-8 ####[facility] LABCLIA [id number] [place] [address] MCV (RBC) [Entitic vol] 101.1 fL High 80.0-100.0 [facility] Comment on above: Order Comment: Speci men Type: BLOOD SPECIMENOrdering Facility: [facility] Address: [address] [place] [address] Performed By: #### 5 7021-8 ####[facility] LABCLIA [id number] [place] [address] Monocytes (Bld) [#/Vol] 0.41 10*3/uL Normal <0.87 [facility] Comment on above: Order Comment: Speci men Type: BLOOD SPECIMENOrdering Facility: [facility] Address: [address] [place] [address] Performed By: #### 5 7021-8 ####[facility] LABCLIA [id number] [place] [address] Monocytes/100 WBC (Bld) 13.3 % Normal [facility] Comment on above: Order Comment: Speci men Type: BLOOD SPECIMENOrdering Facility: [facility] Address: [address] [place] [address] Performed By: #### 5 7021-8 ####[facility] LABCLIA [id number] [place] [address] Neutrophils (Bld) [#/Vol] 1.84 10*3/uL Normal 1.45-7.50 [facility] Comment on above: Order Comment: Speci men Type: BLOOD SPECIMENOrdering Facility: [facility] Address: [address] [place] [address] Performed By: #### 5 7021-8 ####[facility] LABCLIA [id number] [place] [address] Neutrophils/100 WBC (Bld) 59.8 % Normal [facility] Comment on above: Order Comment: Speci men Type: BLOOD SPECIMENOrdering Facility: [facility] Address: [address] [place] [address] Performed By: #### 5 7021-8 ####[facility] LABCLIA [id number] [place] [address] Nucleated RBC (Bld) [#/Vol] 10*3/uL Normal <0.01 [facility] Comment on above: Order Comment: Speci men Type: BLOOD SPECIMENOrdering Facility: [facility] Address: [address] [place] [address] Performed By: #### 5 7021-8 ####[facility] LABCLIA [id number] [place] [address] Nucleated RBC/100 WBC (Bld) [Ratio] 0.0 /100 WBC Normal [facility] Comment on above: Order Comment: Speci men Type: BLOOD SPECIMENOrdering Facility: [facility] Address: [address] [place] [address] Performed By: #### 5 7021-8 ####[facility] LABCLIA [id number] [place] [address] Platelet mean volume (Bld) [Entitic vol] 10.0 fL Normal 9.0-12.7 [facility] Comment on above: Order Comment: Speci men Type: BLOOD SPECIMENOrdering Facility: [facility] Address: [address] [place] [address] Performed By: #### 5 7021-8 ####[facility] LABCLIA [id number] [place] [address] Platelets (Bld) [#/Vol] 214 10*3/uL Normal 150-400 [facility] Comment on above: Order Comment: Speci men Type: BLOOD SPECIMENOrdering Facility: [facility] Address: [address] [place] [address] Performed By: #### 5 7021-8 ####[facility] LABCLIA [id number] [place] [address] RBC (Bld) [#/Vol] 2.80 10*6/uL Low 3.90-5.20 [facility] Comment on above: Order Comment: Speci men Type: BLOOD SPECIMENOrdering Facility: [facility] Address: [address] [place] [address] Performed By: #### 5 7021-8 ####[facility] LABCLIA [id number] [place] [address] WBC (Bld) [#/Vol] 3.08 10*3/uL Low 3.70-11.00 [facility] Comment on above: Order Comment: Speci men Type: BLOOD SPECIMENOrdering Facility: [facility] Address: [address] [place] [address] Performed By: #### 5 7021-8 ####[facility] LABCLIA [id number] [place] [address] Comprehensive metabolic 2000 panelon 02-24-2023 Albumin [Mass/Vol] 3.3 g/dL Low 3.9-4.9 [facility] Comment on above: Order Comment: Speci men Type: BLOOD SPECIMENOrdering Facility: [facility] Address: [address] [place] [address] Performed By: #### 2 4323-8 ####[facility] LABCLIA [id number] [place] [address] ALP [Catalytic activity/Vol] 59 U/L Normal 34-123 [facility] Comment on above: Order Comment: Speci men Type: BLOOD SPECIMENOrdering Facility: [facility] Address: [address] [place] [address] Performed By: #### 2 4323-8 ####[facility] LABCLIA [id number] [place] [address] ALT [Catalytic activity/Vol] 13 U/L Normal 7-38 [facility] Comment on above: Order Comment: Speci men Type: BLOOD SPECIMENOrdering Facility: [facility] Address: [address] [place] [address] Performed By: #### 2 4323-8 ####[facility] LABCLIA [id number] [place] [address] Anion gap [Moles/Vol] 14 mmol/L Normal 9-18 [facility] Comment on above: Order Comment: Speci men Type: BLOOD SPECIMENOrdering Facility: [facility] Address: [address] [place] [address] Performed By: #### 2 4323-8 ####[facility] LABCLIA [id number] [place] [address] AST [Catalytic activity/Vol] 12 U/L Low 13-35 [facility] Comment on above: Order Comment: Speci men Type: BLOOD SPECIMENOrdering Facility: [facility] Address: [address] [place] [address] Performed By: #### 2 4323-8 ####[facility] LABCLIA [id number] [place] [address] Bilirubin [Mass/Vol] 0.3 mg/dL Normal 0.2-1.3 [facility] Comment on above: Order Comment: Speci men Type: BLOOD SPECIMENOrdering Facility: [facility] Address: [address] [place] [address] Performed By: #### 2 4323-8 ####[facility] LABCLIA [id number] [place] [address] Calcium [Mass/Vol] 9.4 mg/dL Normal 8.5-10.2 [facility] Comment on above: Order Comment: Speci men Type: BLOOD SPECIMENOrdering Facility: [facility] Address: [address] [place] [address] Performed By: #### 2 4323-8 ####[facility] LABCLIA [id number] [place] [address] Chloride [Moles/Vol] 98 mmol/L Normal 97-105 [facility] Comment on above: Order Comment: Speci men Type: BLOOD SPECIMENOrdering Facility: [facility] Address: [address] [place] [address] Performed By: #### 2 4323-8 ####[facility] LABCLIA [id number] [place] [address] CO2 [Moles/Vol] 29 mmol/L Normal 22-30 [facility] Comment on above: Order Comment: Speci men Type: BLOOD SPECIMENOrdering Facility: [facility] Address: [address] [place] [address] Performed By: #### 2 4323-8 ####[facility] LABCLIA [id number] [place] [address] Creatinine [Mass/Vol] 15.64 mg/dL High 0.58-0.96 [facility] Comment on above: Order Comment: Speci men Type: BLOOD SPECIMENOrdering Facility: [facility] Address: [address] [place] [address] Performed By: #### 2 4323-8 ####[facility] LABCLIA [id number] [place] [address] Creatinine and Glomerular filtration rate.predicted panel (S/P/Bld) 3 mL/min/1.73m??? Low >=60 [facility] Comment on above: Order Comment: Speci men Type: BLOOD SPECIMENOrdering Facility: [facility] Address: [address] [place] [address] Result Comment: Rylee mated Glomerular Filtration Rate (eGFR) is calculated using the 2020 CKD-EPI creatinine equation. This equation utilizes serum creatinine, sex, and age as parameters. The creatinine assay has traceable calibration to isotope dilution-mass spectrometry. Refer to KDIGO guidelines for clinical interpretation. In patients with unstable renal function, e.g. those with acute kidney injury, the eGFR may not accurately reflect actual GFR. Performed By: #### 2 4323-8 ####[facility] LABCLIA [id number] [place] [address] Glucose [Mass/Vol] 117 mg/dL High 74-99 [facility] Comment on above: Order Comment: Speci men Type: BLOOD SPECIMENOrdering Facility: [facility] Address: [address] [place] [address] Result Comment: The [place] Diabetes Association (ADA) provides guidance for cutoff values for fasting glucose and random glucose. The ADA defines fasting as no caloric intake for at least 8 hours. Fasting plasma glucose results between 100 to 125 mg/dL indicate increased risk for diabetes (prediabetes).Fasting plasma glucose results greater than or equal to 126 mg/dL meet the criteria for diagnosis of diabetes. In the absence of unequivocal hyperglycemia, results should be confirmed by repeat testing. In a patient with classic symptoms of hyperglycemia or hyperglycemic crisis, random plasma glucose results greater than or equal to 200 mg/dL meet the criteria for diagnosis of diabetes.Reference: Standards of Medical Care in Diabetes 2016, [place] [employer]. Diabetes Care. 2016.39(Suppl 1). Performed By: #### 2 4323-8 ####[facility] LABIA [id number] [place] [address] Potassium [Moles/Vol] 5.5 mmol/L High 3.7-5.1 [facility] Comment on above: Order Comment: Speci men Type: BLOOD SPECIMENOrdering Facility: [facility] Address: [address] [place] [address] Performed By: #### 2 4323-8 ####[facility] LABCLIA [id number] [place] [address] Protein [Mass/Vol] 5.1 g/dL Low 6.3-8.0 [facility] Comment on above: Order Comment: Speci men Type: BLOOD SPECIMENOrdering Facility: [facility] Address: [address] [place] [address] Performed By: #### 2 4323-8 ####[facility] LABCLIA [id number] [place] [address] Sodium [Moles/Vol] 141 mmol/L Normal 136-144 [facility] Comment on above: Order Comment: Speci men Type: BLOOD SPECIMENOrdering Facility: [facility] Address: [address] [place] [address] Performed By: #### 2 4323-8 ####[facility] LABCLIA [id number] [place] [address] Urea nitrogen [Mass/Vol] 52 mg/dL High 7-21 [facility] Comment on above: Order Comment: Speci men Type: BLOOD SPECIMENOrdering Facility: [facility] Address: [address] [place] [address] Performed By: #### 2 4323-8 ####[facility] LABCLIA [id number] [place] [address] Ferritin SerPl-mCncon 2022 Ferritin [Mass/Vol] 1158.0 ng/mL High 14.7-205.1 [facility] Comment on above: Order Comment: Speci men Type: BLOOD SPECIMENOrdering Facility: [facility] Address: [address] [place] [address] Performed By: #### 2 132-9, 2284-8, 2276-4, 87793-9 ####[facility] LABCLIA [id number] [facility] [id number], [place] [address] [place] Folate SerPl-mCncon 02-25-20 23 Folate [Mass/Vol] ng/mL Normal >4.7 [facility] Comment on above: Order Comment: Speci men Type: BLOOD SPECIMENOrdering Facility: [facility] Address: [address] [place] [address] Result Comment: A re sult of > 20 ng/mL is not necessarily indicative of a pathologic or treatable condition: it reflects a limitation of the test methodology.Assay reference range: 4.8 to 24.2 ng/mL. Suitable for detection of folate deficiency.Reference:Folate III (Folate III) [package insert V 1.0 German]. [employer] [facility], [place], [place]: January 2015. Performed By: #### 2 132-9, 2284-8, 2276-4, 20768-3 ####[facility] LABCLIA [id number] [place] [id number] [place] Iron and Iron binding capaci [facility] 02-24-2023 Iron [Mass/Vol] 88 ug/dL Normal 41-186 [facility] Comment on above: Order Comment: Speci men Type: BLOOD SPECIMENOrdering Facility: [facility] Address: [address] [place] [address] Performed By: #### 2 132-9, 2284-8, 6-4, 46148-3 ####[facility] LABIA [id number] [place] [address] [place] Iron binding capacity [Mass/Vol] 146 ug/dL Low 232-386 [facility] Comment on above: Order Comment: Speci men Type: BLOOD SPECIMENOrdering Facility: [facility] Address: [address] [place] [address] Performed By: #### 2 132-9, 2284-8, 6-4, 31179-3 ####[facility] LABIA [id number] [place] [id number] [place] Iron/TIBC [Molar ratio] 60.3 % High 15.0-57.0 [facility] Comment on above: Order Comment: Speci men Type: BLOOD SPECIMENOrdering Facility: [facility] Address: [address] [place] [address] Performed By: #### 2 132-9, 2284-8, 6-4, 60824-2 ####[facility] LABCLIA [id number] [address] [address] [place] Vit B12 [facility] 023 Cobalamin (Vitamin B12) [Mass/Vol] 711 pg/mL Normal 232-1245 [facility] Comment on above: Order Comment: Speci men Type: BLOOD SPECIMENOrdering Facility: [facility] Address: [address] [place] [address] Performed By: #### 2 132-9, 2284-8, 2276-4, 54843-5 ####[facility] LABCLIA [id number] [facility] [id number], [place] [address] [place] CBC W Auto Differential pane l (Bld)on 02-17-2023 Basophils (Bld) [#/Vol] 10*3/uL Normal <0.11 [facility] Comment on above: Order Comment: Speci men Type: BLOOD SPECIMENOrdering Facility: [facility] Address: [address] [place] [address] Performed By: #### 5 7021-8 ####[facility] LABCLIA [id number] [place] [address] Basophils/100 WBC (Bld) 0.3 % Normal [facility] Comment on above: Order Comment: Speci men Type: BLOOD SPECIMENOrdering Facility: [facility] Address: [address] [place] [address] Performed By: #### 5 7021-8 ####[facility] LABCLIA [id number] [place] [address] Differential cell count method Nom (Bld) Auto Normal [facility] Comment on above: Order Comment: Speci men Type: BLOOD SPECIMENOrdering Facility: [facility] Address: [address] [place] [address] Performed By: #### 5 7021-8 ####[facility] LABCLIA [id number] [place] [address] Eosinophils (Bld) [#/Vol] 0.14 10*3/uL Normal <0.46 [facility] Comment on above: Order Comment: Speci men Type: BLOOD SPECIMENOrdering Facility: [facility] Address: [address] [place] [address] Performed By: #### 5 7021-8 ####[facility] LABCLIA [id number] [place] [address] Eosinophils/100 WBC (Bld) 2.4 % Normal [facility] Comment on above: Order Comment: Speci men Type: BLOOD SPECIMENOrdering Facility: [facility] Address: [address] [place] [address] Performed By: #### 5 7021-8 ####[facility] LABCLIA [id number] [place] [address] Erythrocyte distribution width (RBC) [Ratio] 24.6 % High 11.5-15.0 [facility] Comment on above: Order Comment: Speci men Type: BLOOD SPECIMENOrdering Facility: [facility] Address: [address] [place] [address] Performed By: #### 5 7021-8 ####[facility] LABCLIA [id number] [place] [address] Hematocrit (Bld) [Volume fraction] 27.3 % Low 36.0-46.0 [facility] Comment on above: Order Comment: Speci men Type: BLOOD SPECIMENOrdering Facility: [facility] Address: [address] [place] [address] Performed By: #### 5 7021-8 ####[facility] LABCLIA [id number] [place] [address] Hemoglobin (Bld) [Mass/Vol] 8.7 g/dL Low 11.5-15.5 [facility] Comment on above: Order Comment: Speci men Type: BLOOD SPECIMENOrdering Facility: [facility] Address: [address] [place] [address] Performed By: #### 5 7021-8 ####[facility] LABCLIA [id number] [place] [address] Immature granulocytes (Bld) [#/Vol] 0.08 10*3/uL Normal <0.10 [facility] Comment on above: Order Comment: Speci men Type: BLOOD SPECIMENOrdering Facility: [facility] Address: [address] [place] [address] Performed By: #### 5 7021-8 ####[facility] LABCLIA [id number] [place] [address] Immature granulocytes/100 WBC (Bld) 1.4 % Normal [facility] Comment on above: Order Comment: Speci men Type: BLOOD SPECIMENOrdering Facility: [facility] Address: [address] [place] [address] Performed By: #### 5 7021-8 ####[facility] LABCLIA [id number] [place] [address] Lymphocytes (Bld) [#/Vol] 0.66 10*3/uL Low 1.00-4.00 [facility] Comment on above: Order Comment: Speci men Type: BLOOD SPECIMENOrdering Facility: [facility] Address: [address] [place] [address] Performed By: #### 5 7021-8 ####[facility] LABCLIA [id number] [place] [address] Lymphocytes/100 WBC (Bld) 11.2 % Normal [facility] Comment on above: Order Comment: Speci men Type: BLOOD SPECIMENOrdering Facility: [facility] Address: [address] [place] [address] Performed By: #### 5 7021-8 ####[facility] LABCLIA [id number] [place] [address] MCH (RBC) [Entitic mass] 32.1 pg Normal 26.0-34.0 [facility] Comment on above: Order Comment: Speci men Type: BLOOD SPECIMENOrdering Facility: [facility] Address: [address] [place] [address] Performed By: #### 5 7021-8 ####[facility] LABCLIA [id number] [place] [address] MCHC (RBC) [Mass/Vol] 31.9 g/dL Normal 30.5-36.0 [facility] Comment on above: Order Comment: Speci men Type: BLOOD SPECIMENOrdering Facility: [facility] Address: [address] [place] [address] Performed By: #### 5 7021-8 ####[facility] LABCLIA [id number] [place] [address] MCV (RBC) [Entitic vol] 100.7 fL High 80.0-100.0 [facility] Comment on above: Order Comment: Speci men Type: BLOOD SPECIMENOrdering Facility: [facility] Address: [address] [place] [address] Performed By: #### 5 7021-8 ####[facility] LABCLIA [id number] [place] [address] Monocytes (Bld) [#/Vol] 0.79 10*3/uL Normal <0.87 [facility] Comment on above: Order Comment: Speci men Type: BLOOD SPECIMENOrdering Facility: [facility] Address: [address] [place] [address] Performed By: #### 5 7021-8 ####[facility] LABCLIA [id number] [place] [address] Monocytes/100 WBC (Bld) 13.4 % Normal [facility] Comment on above: Order Comment: Speci men Type: BLOOD SPECIMENOrdering Facility: [facility] Address: [address] [place] [address] Performed By: #### 5 7021-8 ####[facility] LABCLIA [id number] [place] [address] Neutrophils (Bld) [#/Vol] 4.21 10*3/uL Normal 1.45-7.50 [facility] Comment on above: Order Comment: Speci men Type: BLOOD SPECIMENOrdering Facility: [facility] Address: [address] [place] [address] Performed By: #### 5 7021-8 ####[facility] LABCLIA [id number] [place] [address] Neutrophils/100 WBC (Bld) 71.3 % Normal [facility] Comment on above: Order Comment: Speci men Type: BLOOD SPECIMENOrdering Facility: [facility] Address: [address] [place] [address] Performed By: #### 5 7021-8 ####[facility] LABCLIA [id number] [place] [address] Nucleated RBC (Bld) [#/Vol] 10*3/uL Normal <0.01 [facility] Comment on above: Order Comment: Speci men Type: BLOOD SPECIMENOrdering Facility: [facility] Address: [address] [place] [address] Performed By: #### 5 7021-8 ####[facility] LABCLIA [id number] [place] [address] Nucleated RBC/100 WBC (Bld) [Ratio] 0.0 /100 WBC Normal [facility] Comment on above: Order Comment: Speci men Type: BLOOD SPECIMENOrdering Facility: [facility] Address: [address] [place] [address] Performed By: #### 5 7021-8 ####[facility] LABCLIA [id number] [place] [address] Platelet mean volume (Bld) [Entitic vol] 10.3 fL Normal 9.0-12.7 [facility] Comment on above: Order Comment: Speci men Type: BLOOD SPECIMENOrdering Facility: [facility] Address: [address] [place] [address] Performed By: #### 5 7021-8 ####[facility] LABCLIA [id number] [place] [address] Platelets (Bld) [#/Vol] 174 10*3/uL Normal 150-400 [facility] Comment on above: Order Comment: Speci men Type: BLOOD SPECIMENOrdering Facility: [facility] Address: [address] [place] [address] Performed By: #### 5 7021-8 ####[facility] LABCLIA [id number] [place] [address] RBC (Bld) [#/Vol] 2.71 10*6/uL Low 3.90-5.20 [facility] Comment on above: Order Comment: Speci men Type: BLOOD SPECIMENOrdering Facility: [facility] Address: [address] [place] [address] Performed By: #### 5 7021-8 ####[facility] LABIA [id number] [place] [address] WBC (Bld) [#/Vol] 5.90 10*3/uL Normal 3.70-11.00 [facility] Comment on above: Order Comment: Speci men Type: BLOOD SPECIMENOrdering Facility: [facility] Address: [address] [place] [address] Performed By: #### 5 7021-8 ####[facility] LABIA [id number] [place] [address] CNTHERAPYon 02-11-2023 CNTHERAPY Normal [facility] CBC W Auto Differential pane l (Bld)on 02-03-2023 Basophils (Bld) [#/Vol] <0.11 k/uL [facility] Basophils/100 WBC (Bld) 0.1 % [facility] Differential cell count method Nom (Bld) Auto [facility] Eosinophils (Bld) [#/Vol] <0.46 k/uL [facility] Eosinophils/100 WBC (Bld) 0.1 % [facility] Erythrocyte distribution width (RBC) [Ratio] 23.4 % High 11.5 - 15.0 % [facility] Hematocrit (Bld) [Volume fraction] 31.1 % Low 36.0 - 46.0 % [facility] Hemoglobin (Bld) [Mass/Vol] 9.9 g/dL Low 11.5 - 15.5 g/dL [facility] Immature granulocytes (Bld) [#/Vol] 0.10 10*3/uL High <0.10 k/uL [facility] Immature granulocytes/100 WBC (Bld) 0.7 % [facility] Lymphocytes (Bld) [#/Vol] 0.95 10*3/uL Low 1.00 - 4.00 k/uL [facility] Lymphocytes/100 WBC (Bld) 6.6 % [facility] MCH (RBC) [Entitic mass] 30.6 pg 26.0 - 34.0 pg [facility] MCHC (RBC) [Mass/Vol] 31.8 g/dL 30.5 - 36.0 g/dL [facility] MCV (RBC) [Entitic vol] 96.0 fL 80.0 - 100.0 fL [facility] Monocytes (Bld) [#/Vol] 1.02 10*3/uL High <0.87 k/uL [facility] Monocytes/100 WBC (Bld) 7.1 % [facility] Neutrophils (Bld) [#/Vol] 12.36 10*3/uL High 1.45 - 7.50 k/uL [facility] Neutrophils/100 WBC (Bld) 85.4 % [facility] Nucleated RBC (Bld) [#/Vol] <0.01 k/uL [facility] Nucleated RBC/100 WBC (Bld) [Ratio] 0.0 /100 WBC [facility] Platelet mean volume (Bld) [Entitic vol] 11.0 fL 9.0 - 12.7 fL [facility] Platelets (Bld) [#/Vol] 239 10*3/uL 150 - 400 k/uL [facility] RBC (Bld) [#/Vol] 3.24 10*6/uL Low 3.90 - 5.2 0 m/uL [facility] WBC (Bld) [#/Vol] 14.46 10*3/uL High 3.70 - 11 .00 k/uL [facility] Basophils (Bld) [#/Vol] 10*3/uL Normal <0.11 [facility] Comment on above: Order Comment: Speci men Type: BLOOD SPECIMENOrdering Facility: [facility] Address: [address] [place] [address] Performed By: #### 5 7021-8 ####[facility] LABCLIA [id number] [place] [address] Basophils/100 WBC (Bld) 0.1 % Normal [facility] Comment on above: Order Comment: Speci men Type: BLOOD SPECIMENOrdering Facility: [facility] Address: [address] [place] [address] Performed By: #### 5 7021-8 ####[facility] LABCLIA [id number] [place] [address] Differential cell count method Nom (Bld) Auto Normal [facility] Comment on above: Order Comment: Speci men Type: BLOOD SPECIMENOrdering Facility: [facility] Address: [address] [place] [address] Performed By: #### 5 7021-8 ####[facility] LABCLIA [id number] [place] [address] Eosinophils (Bld) [#/Vol] 10*3/uL Normal <0.46 [facility] Comment on above: Order Comment: Speci men Type: BLOOD SPECIMENOrdering Facility: [facility] Address: [address] [place] [address] Performed By: #### 5 7021-8 ####[facility] LABCLIA [id number] [place] [address] Eosinophils/100 WBC (Bld) 0.1 % Normal [facility] Comment on above: Order Comment: Speci men Type: BLOOD SPECIMENOrdering Facility: [facility] Address: [address] [place] [address] Performed By: #### 5 7021-8 ####[facility] LABCLIA [id number] [place] [address] Erythrocyte distribution width (RBC) [Ratio] 23.4 % High 11.5-15.0 [facility] Comment on above: Order Comment: Speci men Type: BLOOD SPECIMENOrdering Facility: [facility] Address: [address] [place] [address] Performed By: #### 5 7021-8 ####[facility] LABCLIA [id number] [place] [address] Hematocrit (Bld) [Volume fraction] 31.1 % Low 36.0-46.0 [facility] Comment on above: Order Comment: Speci men Type: BLOOD SPECIMENOrdering Facility: [facility] Address: [address] [place] [address] Performed By: #### 5 7021-8 ####[facility] LABCLIA [id number] [place] [address] Hemoglobin (Bld) [Mass/Vol] 9.9 g/dL Low 11.5-15.5 [facility] Comment on above: Order Comment: Speci men Type: BLOOD SPECIMENOrdering Facility: [facility] Address: [address] [place] [address] Performed By: #### 5 7021-8 ####[facility] LABCLIA [id number] [place] [address] Immature granulocytes (Bld) [#/Vol] 0.10 10*3/uL High <0.10 [facility] Comment on above: Order Comment: Speci men Type: BLOOD SPECIMENOrdering Facility: [facility] Address: [address] [place] [address] Performed By: #### 5 7021-8 ####[facility] LABCLIA [id number] [place] [address] Immature granulocytes/100 WBC (Bld) 0.7 % Normal [facility] Comment on above: Order Comment: Speci men Type: BLOOD SPECIMENOrdering Facility: [facility] Address: [address] [place] [address] Performed By: #### 5 7021-8 ####[facility] LABCLIA [id number] [place] [address] Lymphocytes (Bld) [#/Vol] 0.95 10*3/uL Low 1.00-4.00 [facility] Comment on above: Order Comment: Speci men Type: BLOOD SPECIMENOrdering Facility: [facility] Address: [address] [place] [address] Performed By: #### 5 7021-8 ####[facility] LABCLIA [id number] [place] [address] Lymphocytes/100 WBC (Bld) 6.6 % Normal [facility] Comment on above: Order Comment: Speci men Type: BLOOD SPECIMENOrdering Facility: [facility] Address: [address] [place] [address] Performed By: #### 5 7021-8 ####[facility] LABCLIA [id number] [place] [address] MCH (RBC) [Entitic mass] 30.6 pg Normal 26.0-34.0 [facility] Comment on above: Order Comment: Speci men Type: BLOOD SPECIMENOrdering Facility: [facility] Address: [address] [place] [address] Performed By: #### 5 7021-8 ####[facility] LABCLIA [id number] [place] [address] MCHC (RBC) [Mass/Vol] 31.8 g/dL Normal 30.5-36.0 [facility] Comment on above: Order Comment: Speci men Type: BLOOD SPECIMENOrdering Facility: [facility] Address: [address] [place] [address] Performed By: #### 5 7021-8 ####[facility] LABCLIA [id number] [place] [address] MCV (RBC) [Entitic vol] 96.0 fL Normal 80.0-100.0 [facility] Comment on above: Order Comment: Speci men Type: BLOOD SPECIMENOrdering Facility: [facility] Address: [address] [place] [address] Performed By: #### 5 7021-8 ####[facility] LABCLIA [id number] [place] [address] Monocytes (Bld) [#/Vol] 1.02 10*3/uL High <0.87 [facility] Comment on above: Order Comment: Speci men Type: BLOOD SPECIMENOrdering Facility: [facility] Address: [address] [place] [address] Performed By: #### 5 7021-8 ####[facility] LABCLIA [id number] [place] [address] Monocytes/100 WBC (Bld) 7.1 % Normal [facility] Comment on above: Order Comment: Speci men Type: BLOOD SPECIMENOrdering Facility: [facility] Address: [address] [place] [address] Performed By: #### 5 7021-8 ####[facility] LABCLIA [id number] [place] [address] Neutrophils (Bld) [#/Vol] 12.36 10*3/uL High 1.45-7.50 [facility] Comment on above: Order Comment: Speci men Type: BLOOD SPECIMENOrdering Facility: [facility] Address: [address] [place] [address] Performed By: #### 5 7021-8 ####[facility] LABCLIA [id number] [place] [address] Neutrophils/100 WBC (Bld) 85.4 % Normal [facility] Comment on above: Order Comment: Speci men Type: BLOOD SPECIMENOrdering Facility: [facility] Address: [address] [place] [address] Performed By: #### 5 7021-8 ####[facility] LABIA [id number] [place] [address] Nucleated RBC (Bld) [#/Vol] 10*3/uL Normal <0.01 [facility] Comment on above: Order Comment: Speci men Type: BLOOD SPECIMENOrdering Facility: [facility] Address: [address] [place] [address] Performed By: #### 5 7021-8 ####[facility] LABCLIA [id number] [place] [address] Nucleated RBC/100 WBC (Bld) [Ratio] 0.0 /100 WBC Normal [facility] Comment on above: Order Comment: Speci men Type: BLOOD SPECIMENOrdering Facility: [facility] Address: [address] [place] [address] Performed By: #### 5 7021-8 ####[facility] LABCLIA [id number] [place] [address] Platelet mean volume (Bld) [Entitic vol] 11.0 fL Normal 9.0-12.7 [facility] Comment on above: Order Comment: Speci men Type: BLOOD SPECIMENOrdering Facility: [facility] Address: [address] [place] [address] Performed By: #### 5 7021-8 ####[facility] LABCLIA [id number] [place] [address] Platelets (Bld) [#/Vol] 239 10*3/uL Normal 150-400 [facility] Comment on above: Order Comment: Speci men Type: BLOOD SPECIMENOrdering Facility: [facility] Address: [address] [place] [address] Performed By: #### 5 7021-8 ####[facility] LABCLIA [id number] [place] [address] RBC (Bld) [#/Vol] 3.24 10*6/uL Low 3.90-5.20 [facility] Comment on above: Order Comment: Speci men Type: BLOOD SPECIMENOrdering Facility: [facility] Address: [address] [place] [address] Performed By: #### 5 7021-8 ####[facility] LABCLIA [id number] [place] [address] WBC (Bld) [#/Vol] 14.46 10*3/uL High 3.70-11.00 [facility] above: Order Comment: Speci men Type: BLOOD SPECIMENOrdering Facility: [facility] Address: [address] [place] [address] Performed By: #### 5 7021-8 ####[facility] LABCLIA [id number] [place] [address] CNOVSPon 02-03-2023 CNOVSP Normal [facility] LeukoReduced RBCon 3 LeukoReduced RBC TRANSFUSED 01/29/23 1215 Normal [facility] Type and Screenon 01-28-2023 ABO and Rh group Nom (Bld) Blood group A Rh(D) positive Normal [facility] Comment on above: Order Comment: Comme nt pt does not have green band, need to re t/c Result Comment: PERF ORMED BY: [facility] [address] [place] [address] PATHOLOGIST ENTRY TABLE OPERATOR JESSE GARZA M.D. CBC W Auto Differential pane l (Bld)on 01-27-2023 Basophils (Bld) [#/Vol] 0.03 10*3/uL Normal <0.11 [facility] Comment on above: Order Comment: Speci men Type: BLOOD SPECIMENOrdering Facility: [facility] Address: [address] [place] [address] Performed By: #### 5 7021-8 ####[facility] LABCLIA [id number] [place] [address] Basophils/100 WBC (Bld) 0.5 % Normal [facility] Comment on above: Order Comment: Speci men Type: BLOOD SPECIMENOrdering Facility: [facility] Address: [address] [place] [address] Performed By: #### 5 7021-8 ####[facility] LABCLIA [id number] [place] [address] Differential cell count method Nom (Bld) Auto Normal [facility] Comment on above: Order Comment: Speci men Type: BLOOD SPECIMENOrdering Facility: [facility] Address: [address] [place] [address] Performed By: #### 5 7021-8 ####[facility] LABCLIA [id number] [place] [address] Eosinophils (Bld) [#/Vol] 0.27 10*3/uL Normal <0.46 [facility] Comment on above: Order Comment: Speci men Type: BLOOD SPECIMENOrdering Facility: [facility] Address: [address] [place] [address] Performed By: #### 5 7021-8 ####[facility] LABCLIA [id number] [place] [address] Eosinophils/100 WBC (Bld) 4.2 % Normal [facility] Comment on above: Order Comment: Speci men Type: BLOOD SPECIMENOrdering Facility: [facility] Address: [address] [place] [address] Performed By: #### 5 7021-8 ####[facility] LABCLIA [id number] [place] [address] Erythrocyte distribution width (RBC) [Ratio] 15.6 % High 11.5-15.0 [facility] Comment on above: Order Comment: Speci men Type: BLOOD SPECIMENOrdering Facility: [facility] Address: [address] [place] [address] Performed By: #### 5 7021-8 ####[facility] LABCLIA [id number] [place] [address] Hematocrit (Bld) [Volume fraction] 22.8 % Low 36.0-46.0 [facility] Comment on above: Order Comment: Speci men Type: BLOOD SPECIMENOrdering Facility: [facility] Address: [address] [place] [address] Performed By: #### 5 7021-8 ####[facility] LABCLIA [id number] [place] [address] Hemoglobin (Bld) [Mass/Vol] 7.4 g/dL Low 11.5-15.5 [facility] Comment on above: Order Comment: Speci men Type: BLOOD SPECIMENOrdering Facility: [facility] Address: [address] [place] [address] Performed By: #### 5 7021-8 ####[facility] LABCLIA [id number] [place] [address] Immature granulocytes (Bld) [#/Vol] 0.06 10*3/uL Normal <0.10 [facility] Comment on above: Order Comment: Speci men Type: BLOOD SPECIMENOrdering Facility: [facility] Address: [address] [place] [address] Performed By: #### 5 7021-8 ####[facility] LABCLIA [id number] [place] [address] Immature granulocytes/100 WBC (Bld) 0.9 % Normal [facility] Comment on above: Order Comment: Speci men Type: BLOOD SPECIMENOrdering Facility: [facility] Address: [address] [place] [address] Performed By: #### 5 7021-8 ####[facility] LABCLIA [id number] [place] [address] Lymphocytes (Bld) [#/Vol] 1.29 10*3/uL Normal 1.00-4.00 [facility] Comment on above: Order Comment: Speci men Type: BLOOD SPECIMENOrdering Facility: [facility] Address: [address] [place] [address] Performed By: #### 5 7021-8 ####[facility] LABCLIA [id number] [place] [address] Lymphocytes/100 WBC (Bld) 20.3 % Normal [facility] Comment on above: Order Comment: Speci men Type: BLOOD SPECIMENOrdering Facility: [facility] Address: [address] [place] [address] Performed By: #### 5 7021-8 ####[facility] LABCLIA [id number] [place] [address] MCH (RBC) [Entitic mass] 33.6 pg Normal 26.0-34.0 [facility] Comment on above: Order Comment: Speci men Type: BLOOD SPECIMENOrdering Facility: [facility] Address: [address] [place] [address] Performed By: #### 5 7021-8 ####[facility] LABCLIA [id number] [place] [address] MCHC (RBC) [Mass/Vol] 32.5 g/dL Normal 30.5-36.0 [facility] Comment on above: Order Comment: Speci men Type: BLOOD SPECIMENOrdering Facility: [facility] Address: [address] [place] [address] Performed By: #### 5 7021-8 ####[facility] LABCLIA [id number] [place] [address] MCV (RBC) [Entitic vol] 103.6 fL High 80.0-100.0 [facility] Comment on above: Order Comment: Speci men Type: BLOOD SPECIMENOrdering Facility: [facility] Address: [address] [place] [address] Performed By: #### 5 7021-8 ####[facility] LABCLIA [id number] [place] [address] Monocytes (Bld) [#/Vol] 0.38 10*3/uL Normal <0.87 [facility] Comment on above: Order Comment: Speci men Type: BLOOD SPECIMENOrdering Facility: [facility] Address: [address] [place] [address] Performed By: #### 5 7021-8 ####[facility] LABCLIA [id number] [place] [address] Monocytes/100 WBC (Bld) 6.0 % Normal [facility] Comment on above: Order Comment: Speci men Type: BLOOD SPECIMENOrdering Facility: [facility] Address: [address] [place] [address] Performed By: #### 5 7021-8 ####[facility] LABCLIA [id number] [place] [address] Neutrophils (Bld) [#/Vol] 4.33 10*3/uL Normal 1.45-7.50 [facility] Comment on above: Order Comment: Speci men Type: BLOOD SPECIMENOrdering Facility: [facility] Address: [address] [place] [address] Performed By: #### 5 7021-8 ####[facility] LABCLIA [id number] [place] [address] Neutrophils/100 WBC (Bld) 68.1 % Normal [facility] Comment on above: Order Comment: Speci men Type: BLOOD SPECIMENOrdering Facility: [facility] Address: [address] [place] [address] Performed By: #### 5 7021-8 ####[facility] LABCLIA [id number] [place] [address] Nucleated RBC (Bld) [#/Vol] 10*3/uL Normal <0.01 [facility] Comment on above: Order Comment: Speci men Type: BLOOD SPECIMENOrdering Facility: [facility] Address: [address] [place] [address] Performed By: #### 5 7021-8 ####[facility] LABCLIA [id number] [place] [address] Nucleated RBC/100 WBC (Bld) [Ratio] 0.0 /100 WBC Normal [facility] Comment on above: Order Comment: Speci men Type: BLOOD SPECIMENOrdering Facility: [facility] Address: [address] [place] [address] Performed By: #### 5 7021-8 ####[facility] LABCLIA [id number] [place] [address] Platelet mean volume (Bld) [Entitic vol] 10.2 fL Normal 9.0-12.7 [facility] Comment on above: Order Comment: Speci men Type: BLOOD SPECIMENOrdering Facility: [facility] Address: [address] [place] [address] Performed By: #### 5 7021-8 ####[facility] LABCLIA [id number] [place] [address] Platelets (Bld) [#/Vol] 212 10*3/uL Normal 150-400 [facility] Comment on above: Order Comment: Speci men Type: BLOOD SPECIMENOrdering Facility: [facility] Address: [address] [place] [address] Performed By: #### 5 7021-8 ####[facility] LABCLIA [id number] [place] [address] RBC (Bld) [#/Vol] 2.20 10*6/uL Low 3.90-5.20 [facility] Comment on above: Order Comment: Speci men Type: BLOOD SPECIMENOrdering Facility: [facility] Address: [address] [place] [address] Performed By: #### 5 7021-8 ####[facility] LABCLIA [id number] [place] [address] WBC (Bld) [#/Vol] 6.36 10*3/uL Normal 3.70-11.00 [facility] Comment on above: Order Comment: Speci men Type: BLOOD SPECIMENOrdering Facility: [facility] Address: [address] [place] [address] Performed By: #### 5 7021-8 ####[facility] LABCLIA [id number] [place] [address] Comprehensive metabolic 2000 panelon 01-27-2023 Albumin [Mass/Vol] 3.0 g/dL Low 3.9-4.9 [facility] Comment on above: Order Comment: Speci men Type: BLOOD SPECIMENOrdering Facility: [facility] Address: [address] [place] [address] Performed By: #### 2 4323-8 ####[facility] LABCLIA [id number] [place] [address] ALP [Catalytic activity/Vol] 77 U/L Normal 34-123 [facility] Comment on above: Order Comment: Speci men Type: BLOOD SPECIMENOrdering Facility: [facility] Address: [address] [place] [address] Performed By: #### 2 4323-8 ####[facility] LABCLIA [id number] [place] [address] ALT [Catalytic activity/Vol] 11 U/L Normal 7-38 [facility] Comment on above: Order Comment: Speci men Type: BLOOD SPECIMENOrdering Facility: [facility] Address: [address] [place] [address] Performed By: #### 2 4323-8 ####[facility] LABCLIA [id number] [place] [address] Anion gap [Moles/Vol] 15 mmol/L Normal 9-18 [facility] Comment on above: Order Comment: Speci men Type: BLOOD SPECIMENOrdering Facility: [facility] Address: [address] [place] [address] Performed By: #### 2 4323-8 ####[facility] LABCLIA [id number] [place] [address] AST [Catalytic activity/Vol] 13 U/L Normal 13-35 [facility] Comment on above: Order Comment: Speci men Type: BLOOD SPECIMENOrdering Facility: [facility] Address: [address] [place] [address] Performed By: #### 2 4323-8 ####[facility] LABCLIA [id number] [place] [address] Bilirubin [Mass/Vol] 0.3 mg/dL Normal 0.2-1.3 [facility] Comment on above: Order Comment: Speci men Type: BLOOD SPECIMENOrdering Facility: [facility] Address: [address] [place] [address] Performed By: #### 2 4323-8 ####[facility] LABCLIA [id number] [place] [address] Calcium [Mass/Vol] 9.8 mg/dL Normal 8.5-10.2 [facility] Comment on above: Order Comment: Speci men Type: BLOOD SPECIMENOrdering Facility: [facility] Address: [address] [place] [address] Performed By: #### 2 4323-8 ####[facility] LABCLIA [id number] [place] [address] Chloride [Moles/Vol] 98 mmol/L Normal 97-105 [facility] Comment on above: Order Comment: Speci men Type: BLOOD SPECIMENOrdering [facility] Address: [address] [place] [address] Performed By: #### 2 4323-8 ####[facility] LABCLIA [id number] [place] [address] CO2 [Moles/Vol] 29 mmol/L Normal 22-30 [facility] Comment on above: Order Comment: Speci men Type: BLOOD SPECIMENOrdering Facility: [facility] Address: [address] [place] [address] Performed By: #### 2 4323-8 ####[facility] LABCLIA [id number] [place] [address] Creatinine [Mass/Vol] 22.25 mg/dL High 0.58-0.96 [facility] Comment on above: Order Comment: Speci men Type: BLOOD SPECIMENOrdering Facility: [facility] Address: [address] [place] [address] Performed By: #### 2 4323-8 ####[facility] LABCLIA [id number] [place] [address] Creatinine and Glomerular filtration rate.predicted panel (S/P/Bld) 2 mL/min/1.73m??? Low >=60 [facility] Comment on above: Order Comment: Isaiah mitchell Type: BLOOD SPECIMENOrdering Facility: [facility] Address: [address] [place] [address] Result Comment: Rylee mated Glomerular Filtration Rate (eGFR) is calculated using the 2020 CKD-EPI creatinine equation. This equation utilizes serum creatinine, sex, and age as parameters. The creatinine assay has traceable calibration to isotope dilution-mass spectrometry. Refer to KDIGO guidelines for clinical interpretation. In patients with unstable renal function, e.g. those with acute kidney injury, the eGFR may not accurately reflect actual GFR. Performed By: #### 2 4323-8 ####[facility] LABCLIA [id number] [place] [address] Glucose [Mass/Vol] 106 mg/dL High 74-99 [facility] Comment on above: Order Comment: Isaiah mitchell Type: BLOOD SPECIMENOrdering Facility: [facility] Address: [address] [place] [address] Result Comment: The [place] Diabetes [employer] (ADA) provides guidance for cutoff values for fasting glucose and random glucose. The ADA defines fasting as no caloric intake for at least 8 hours. Fasting plasma glucose results between 100 to 125 mg/dL indicate increased risk for diabetes (prediabetes).Fasting plasma glucose results greater than or equal to 126 mg/dL meet the criteria for diagnosis of diabetes. In the absence of unequivocal hyperglycemia, results should be confirmed by repeat testing. In a patient with classic symptoms of hyperglycemia or hyperglycemic crisis, random plasma glucose results greater than or equal to 200 mg/dL meet the criteria for diagnosis of diabetes.Reference: Standards of Medical Care in Diabetes 2016, [place] [employer]. Diabetes Care. 2016.39(Suppl 1). Performed By: #### 2 4323-8 ####[facility] LABCLIA [id number] [place] [address] Potassium [Moles/Vol] 4.3 mmol/L Normal 3.7-5.1 [facility] Comment on above: Order Comment: Speci men Type: BLOOD SPECIMENOrdering Facility: [facility] Address: [address] [place] [address] Performed By: #### 2 4323-8 ####[facility] LABCLIA [id number] [place] [address] Protein [Mass/Vol] 4.9 g/dL Low 6.3-8.0 [facility] Comment on above: Order Comment: Speci men Type: BLOOD SPECIMENOrdering Facility: [facility] Address: [address] [place] [address] Performed By: #### 2 4323-8 ####[facility] LABCLIA [id number] [place] [address] Sodium [Moles/Vol] 142 mmol/L Normal 136-144 [facility] Comment on above: Order Comment: Speci men Type: BLOOD SPECIMENOrdering Facility: [facility] Address: [address] [place] [address] Performed By: #### 2 4323-8 ####[facility] LABCLIA [id number] [place] [address] Urea nitrogen [Mass/Vol] 45 mg/dL High 7-21 [facility] Comment on above: Order Comment: Speci men Type: BLOOD SPECIMENOrdering Facility: [facility] Address: [address] [place] [address] Performed By: #### 2 4323-8 ####[facility] LABCLIA [id number] [place] [address] Ferritin SerPl-mCncon 2022 Ferritin [Mass/Vol] 1564.0 ng/mL High 14.7-205.1 [facility] Comment on above: Order Comment: Speci men Type: BLOOD SPECIMENOrdering Facility: [facility] Address: [address] [place] [address] Performed By: #### 5 0190-8, 2132-9, 2276-4, 2284-8 ####[facility] LABCLIA [id number] [place] [address] [place] Folate SerPl-mCncon 01-28-20 Folate [Mass/Vol] ng/mL Normal >4.7 [facility] Comment on above: Order Comment: Speci men Type: BLOOD SPECIMENOrdering Facility: [facility] Address: [address] [place] [address] Result Comment: A re sult of > 20 ng/mL is not necessarily indicative of a pathologic or treatable condition: it reflects a limitation of the test methodology.Assay reference range: 4.8 to 24.2 ng/mL. Suitable for detection of folate deficiency.Reference:Folate III (Folate III) [package insert V 1.0 German]. [facility], [place], [place]: January 2015. Performed By: #### 5 0190-8, 2132-9, 2276-4, 2284-8 ####[facility] LABCLIA [id number] [place] [address] [place] Hematocrit Auto (Bld) [Volum e fraction]Ordered By: Natali Cihld on 01-27-2023 Hematocrit (Bld) [Volume fraction] 22.6 % 34.0-46.4 [facility] Hemoglobin [Mass/volume] in BloodOrdered By: Natali Child on 01-27-2023 Hemoglobin (Bld) [Mass/Vol] 7.7 g/dL 11.8-15.4 [facility] Hemoglobin and Hematocriton 01-27-2023 Hematocrit (Bld) [Volume fraction] 22.6 % Low 34.0-46.4 [facility] Comment on above: Result Comment: PERF ORMED BY: [place] [address] PATHOLOGIST ENTRY TABLE OPERATOR JESSE GARZA M.D. Performed By: #### H H #### [address] Hemoglobin (Bld) [Mass/Vol] 7.7 g/dL Low 11.8-15.4 [facility] Comment on above: Performed By: #### H H #### [facility] [address] [id number] [facility] Iron and Iron binding capaci ty panel 01-27-2023 Iron [Mass/Vol] 97 ug/dL Normal 41-186 [facility] Comment on above: Order Comment: Speci men Type: BLOOD SPECIMENOrdering Facility: [facility] Address: [address] [place] [address] Performed By: #### 5 0190-8, 2131-11, 2275-06, 2283-10 ####[facility] LABIA [id number] [place] [address] [place] Iron binding capacity [Mass/Vol] 122 ug/dL Low 232-386 [facility] Comment on above: Order Comment: Speci men Type: BLOOD SPECIMENOrdering Facility: [facility] Address: [address] [place] [address] Performed By: #### 5 0190-8, 2131-11, 2275-06, 2283-10 ####[facility] LABIA [id number] [place] [address] [place] Iron/TIBC [Molar ratio] 79.5 % High 15.0-57.0 [facility] Comment on above: Order Comment: Speci men Type: BLOOD SPECIMENOrdering Facility: [facility] Address: [address] [place] [address] Performed By: #### 5 0190-8, 2131-11, 2275-06, 2283-10 ####[facility] LABIA [id number] [address] [address] [place] Vit [facility] Cobalamin (Vitamin B12) [Mass/Vol] 1227 pg/mL Normal 232-1245 [facility] Comment on above: Order Comment: Speci men Type: BLOOD SPECIMENOrdering Facility: [facility] Address: [address] [place] [address] Performed By: #### 5 0190-8, 2131-11, 4, 2284-8 ####[facility] LABCLIA [id number] HUEYRhina HUBBARDSVILLEDESK [address] [id number] [place] CNPNon 01-26-2023 CNPN Normal [facility] CBC W Auto Differential pane l (Bld)on 01-20-2023 Basophils (Bld) [#/Vol] 0.04 10*3/uL Normal <0.11 [facility] Comment on above: Order Comment: Speci men Type: BLOOD SPECIMENOrdering Facility: [facility] Address: [address] [place] [address] Performed By: #### 5 7021-8 ####[facility] LABCLIA [id number] [place] [address] Basophils/100 WBC (Bld) 0.3 % Normal [facility] Comment on above: Order Comment: Speci men Type: BLOOD SPECIMENOrdering Facility: [facility] Address: [address] [place] [address] Performed By: #### 5 7021-8 ####[facility] LABCLIA [id number] [place] [address] Differential cell count method Nom (Bld) Auto Normal [facility] Comment on above: Order Comment: Speci men Type: BLOOD SPECIMENOrdering Facility: [facility] Address: [address] [place] [address] Performed By: #### 5 7021-8 ####[facility] LABCLIA [id number] [place] [address] Eosinophils (Bld) [#/Vol] 0.16 10*3/uL Normal <0.46 [facility] Comment on above: Order Comment: Speci men Type: BLOOD SPECIMENOrdering Facility: [facility] Address: [address] [place] [address] Performed By: #### 5 7021-8 ####[facility] LABCLIA [id number] [place] [address] Eosinophils/100 WBC (Bld) 1.4 % Normal [facility] Comment on above: Order Comment: Speci men Type: BLOOD SPECIMENOrdering Facility: [facility] Address: [address] [place] [address] Performed By: #### 5 7021-8 ####[facility] LABCLIA [id number] [place] [address] Erythrocyte distribution width (RBC) [Ratio] 15.2 % High 11.5-15.0 [facility] Comment on above: Order Comment: Speci men Type: BLOOD SPECIMENOrdering Facility: [facility] Address: [address] [place] [address] Performed By: #### 5 7021-8 ####[facility] LABCLIA [id number] [place] [address] Hematocrit (Bld) [Volume fraction] 24.5 % Low 36.0-46.0 [facility] Comment on above: Order Comment: Speci men Type: BLOOD SPECIMENOrdering Facility: [facility] Address: [address] [place] [address] Performed By: #### 5 7021-8 ####[facility] LABCLIA [id number] [place] [address] Hemoglobin (Bld) [Mass/Vol] 8.1 g/dL Low 11.5-15.5 [facility] Comment on above: Order Comment: Speci men Type: BLOOD SPECIMENOrdering Facility: [facility] Address: [address] [place] [address] Performed By: #### 5 7021-8 ####[facility] LABCLIA [id number] [place] [address] Immature granulocytes (Bld) [#/Vol] 0.10 10*3/uL High <0.10 [facility] Comment on above: Order Comment: Speci men Type: BLOOD SPECIMENOrdering Facility: [facility] Address: [address] [place] [address] Performed By: #### 5 7021-8 ####[facility] LABCLIA [id number] [place] [address] Immature granulocytes/100 WBC (Bld) 0.9 % Normal [facility] Comment on above: Order Comment: Speci men Type: BLOOD SPECIMENOrdering Facility: [facility] Address: [address] [place] [address] Performed By: #### 5 7021-8 ####[facility] LABCLIA [id number] [place] [address] Lymphocytes (Bld) [#/Vol] 0.79 10*3/uL Low 1.00-4.00 [facility] Comment on above: Order Comment: Speci men Type: BLOOD SPECIMENOrdering Facility: [facility] Address: [address] [place] [address] Performed By: #### 5 7021-8 ####[facility] LABCLIA [id number] [place] [address] Lymphocytes/100 WBC (Bld) 6.8 % Normal [facility] Comment on above: Order Comment: Speci men Type: BLOOD SPECIMENOrdering Facility: [facility] Address: [address] [place] [address] Performed By: #### 5 7021-8 ####[facility] LABCLIA [id number] [place] [address] MCH (RBC) [Entitic mass] 32.9 pg Normal 26.0-34.0 [facility] Comment on above: Order Comment: Speci men Type: BLOOD SPECIMENOrdering Facility: [facility] Address: [address] [place] [address] Performed By: #### 5 7021-8 ####[facility] LABIA [id number] [place] [address] MCHC (RBC) [Mass/Vol] 33.1 g/dL Normal 30.5-36.0 [facility] Comment on above: Order Comment: Speci men Type: BLOOD SPECIMENOrdering Facility: [facility] Address: [address] [place] [address] Performed By: #### 5 7021-8 ####[facility] LABCLIA [id number] [place] [address] MCV (RBC) [Entitic vol] 99.6 fL Normal 80.0-100.0 [facility] Comment on above: Order Comment: Speci men Type: BLOOD SPECIMENOrdering Facility: [facility] Address: [address] [place] [address] Performed By: #### 5 7021-8 ####[facility] LABCLIA [id number] [place] [address] Monocytes (Bld) [#/Vol] 1.23 10*3/uL High <0.87 [facility] Comment on above: Order Comment: Speci men Type: BLOOD SPECIMENOrdering Facility: [facility] Address: [address] [place] [address] Performed By: #### 5 7021-8 ####[facility] LABCLIA [id number] [place] [address] Monocytes/100 WBC (Bld) 10.6 % Normal [facility] Comment on above: Order Comment: Speci men Type: BLOOD SPECIMENOrdering Facility: [facility] Address: [address] [place] [address] Performed By: #### 5 7021-8 ####[facility] LABCLIA [id number] [place] [address] Neutrophils (Bld) [#/Vol] 9.32 10*3/uL High 1.45-7.50 [facility] Comment on above: Order Comment: Speci men Type: BLOOD SPECIMENOrdering Facility: [facility] Address: [address] [place] [address] Performed By: #### 5 7021-8 ####[facility] LABCLIA [id number] [place] [address] Neutrophils/100 WBC (Bld) 80.0 % Normal [facility] Comment on above: Order Comment: Speci men Type: BLOOD SPECIMENOrdering Facility: [facility] Address: [address] [place] [address] Performed By: #### 5 7021-8 ####[facility] LABCLIA [id number] [place] [address] Nucleated RBC (Bld) [#/Vol] 10*3/uL Normal <0.01 [facility] Comment on above: Order Comment: Speci men Type: BLOOD SPECIMENOrdering Facility: [facility] Address: [address] [place] [address] Performed By: #### 5 7021-8 ####[facility] LABCLIA [id number] [place] [address] Nucleated RBC/100 WBC (Bld) [Ratio] 0.0 /100 WBC Normal [facility] Comment on above: Order Comment: Speci men Type: BLOOD SPECIMENOrdering Facility: [facility] Address: [address] [place] [address] Performed By: #### 5 7021-8 ####[facility] LABCLIA [id number] [place] [address] Platelet mean volume (Bld) [Entitic vol] 11.5 fL Normal 9.0-12.7 [facility] Comment on above: Order Comment: Speci men Type: BLOOD SPECIMENOrdering Facility: [facility] Address: [address] [place] [address] Performed By: #### 5 7021-8 ####[facility] LABCLIA [id number] [place] [address] Platelets (Bld) [#/Vol] 172 10*3/uL Normal 150-400 [facility] Comment on above: Order Comment: Speci men Type: BLOOD SPECIMENOrdering Facility: [facility] Address: [address] [place] [address] Performed By: #### 5 7021-8 ####[facility] LABCLIA [id number] [place] [address] RBC (Bld) [#/Vol] 2.46 10*6/uL Low 3.90-5.20 [facility] Comment on above: Order Comment: Speci men Type: BLOOD SPECIMENOrdering Facility: [facility] Address: [address] [place] [address] Performed By: #### 5 7021-8 ####[facility] LABCLIA [id number] [place] [address] WBC (Bld) [#/Vol] 11.64 10*3/uL High 3.70-11.00 [facility] Comment on above: Order Comment: Speci men Type: BLOOD SPECIMENOrdering Facility: [facility] Address: [address] [place] [address] Performed By: #### 5 7021-8 ####[facility] LABCLIA [id number] [place] [address] ALGN RABBIT EPITHELIUM IGEon 01-13-2023 RABBIT EPITHELIUM CLASS Class 0 Normal Class 0 [facility] Comment on above: Order Comment: Speci men Type: BLOOD SPECIMENOrdering Facility: [facility] Address: [address] [place] [address] Performed By: #### R ABEPI ####[facility] LABCLIA [id number] [place] [address] [place] RABBIT EPITHELIUM IGE <0.35 Normal <0.35 [facility] Comment on above: Order Comment: Speci men Type: BLOOD SPECIMENOrdering Facility: [facility] Address: [address] [place] [address] Performed By: #### R ABEPI ####[facility] LABCLIA [id number] [place] [address] [place] CBC W Auto Differential pane l (Bld)on 01-13-2023 Basophils (Bld) [#/Vol] 0.04 10*3/uL Normal <0.11 [facility] Comment on above: Order Comment: Speci men Type: BLOOD SPECIMENOrdering Facility: [facility] Address: [address] [place] [address] Performed By: #### 5 7021-8 ####[facility] LABCLIA [id number] [place] [address] Basophils/100 WBC (Bld) 0.7 % Normal [facility] Comment on above: Order Comment: Speci men Type: BLOOD SPECIMENOrdering Facility: [facility] Address: [address] [place] [address] Performed By: #### 5 7021-8 ####[facility] LABCLIA [id number] [place] [address] Differential cell count method Nom (Bld) Auto Normal [facility] Comment on above: Order Comment: Speci men Type: BLOOD SPECIMENOrdering Facility: [facility] Address: [address] [place] [address] Performed By: #### 5 7021-8 ####[facility] LABCLIA [id number] [place] [address] Eosinophils (Bld) [#/Vol] 0.26 10*3/uL Normal <0.46 [facility] Comment on above: Order Comment: Speci men Type: BLOOD SPECIMENOrdering Facility: [facility] Address: [address] [place] [address] Performed By: #### 5 7021-8 ####[facility] LABCLIA [id number] [place] [address] Eosinophils/100 WBC (Bld) 4.3 % Normal [facility] Comment on above: Order Comment: Speci men Type: BLOOD SPECIMENOrdering Facility: [facility] Address: [address] [place] [address] Performed By: #### 5 7021-8 ####[facility] LABCLIA [id number] [place] [address] Erythrocyte distribution width (RBC) [Ratio] 15.3 % High 11.5-15.0 [facility] Comment on above: Order Comment: Speci men Type: BLOOD SPECIMENOrdering Facility: [facility] Address: [address] [place] [address] Performed By: #### 5 7021-8 ####[facility] LABCLIA [id number] [place] [address] Hematocrit (Bld) [Volume fraction] 25.6 % Low 36.0-46.0 [facility] Comment on above: Order Comment: Speci men Type: BLOOD SPECIMENOrdering Facility: [facility] Address: [address] [place] [address] Performed By: #### 5 7021-8 ####[facility] LABCLIA [id number] [place] [address] Hemoglobin (Bld) [Mass/Vol] 8.5 g/dL Low 11.5-15.5 [facility] Comment on above: Order Comment: Speci men Type: BLOOD SPECIMENOrdering Facility: [facility] Address: [address] [place] [address] Performed By: #### 5 7021-8 ####[facility] LABCLIA [id number] [place] [address] Immature granulocytes (Bld) [#/Vol] 0.03 10*3/uL Normal <0.10 [facility] Comment on above: Order Comment: Speci men Type: BLOOD SPECIMENOrdering Facility: [facility] Address: [address] [place] [address] Performed By: #### 5 7021-8 ####[facility] LABIA [id number] [place] [address] Immature granulocytes/100 WBC (Bld) 0.5 % Normal [facility] Comment on above: Order Comment: Speci men Type: BLOOD SPECIMENOrdering Facility: [facility] Address: [address] [place] [address] Performed By: #### 5 7021-8 ####[facility] LABCLIA [id number] [place] [address] Lymphocytes (Bld) [#/Vol] 1.16 10*3/uL Normal 1.00-4.00 [facility] Comment on above: Order Comment: Speci men Type: BLOOD SPECIMENOrdering Facility: [facility] Address: [address] [place] [address] Performed By: #### 5 7021-8 ####[facility] LABCLIA [id number] [place] [address] Lymphocytes/100 WBC (Bld) 19.0 % Normal [facility] Comment on above: Order Comment: Speci men Type: BLOOD SPECIMENOrdering Facility: [facility] Address: [address] [place] [address] Performed By: #### 5 7021-8 ####[facility] LABCLIA [id number] [place] [address] MCH (RBC) [Entitic mass] 32.9 pg Normal 26.0-34.0 [facility] Comment on above: Order Comment: Speci men Type: BLOOD SPECIMENOrdering Facility: [facility] Address: [address] [place] [address] Performed By: #### 5 7021-8 ####[facility] LABCLIA [id number] [place] [address] MCHC (RBC) [Mass/Vol] 33.2 g/dL Normal 30.5-36.0 [facility] Comment on above: Order Comment: Speci men Type: BLOOD SPECIMENOrdering Facility: [facility] Address: [address] [place] [address] Performed By: #### 5 7021-8 ####[facility] LABCLIA [id number] [place] [address] MCV (RBC) [Entitic vol] 99.2 fL Normal 80.0-100.0 [facility] Comment on above: Order Comment: Speci men Type: BLOOD SPECIMENOrdering Facility: [facility] Address: [address] [place] [address] Performed By: #### 5 7021-8 ####[facility] LABCLIA [id number] [place] [address] Monocytes (Bld) [#/Vol] 0.55 10*3/uL Normal <0.87 [facility] Comment on above: Order Comment: Speci men Type: BLOOD SPECIMENOrdering Facility: [facility] Address: [address] [place] [address] Performed By: #### 5 7021-8 ####[facility] LABCLIA [id number] [place] [address] Monocytes/100 WBC (Bld) 9.0 % Normal [facility] Comment on above: Order Comment: Speci men Type: BLOOD SPECIMENOrdering Facility: [facility] Address: [address] [place] [address] Performed By: #### 5 7021-8 ####[facility] LABCLIA [id number] [place] [address] Neutrophils (Bld) [#/Vol] 4.07 10*3/uL Normal 1.45-7.50 [facility] Comment on above: Order Comment: Speci men Type: BLOOD SPECIMENOrdering Facility: [facility] Address: [address] [place] [address] Performed By: #### 5 7021-8 ####[facility] LABCLIA [id number] [place] [address] Neutrophils/100 WBC (Bld) 66.5 % Normal [facility] Comment on above: Order Comment: Speci men Type: BLOOD SPECIMENOrdering Facility: [facility] Address: [address] [place] [address] Performed By: #### 5 7021-8 ####[facility] LABCLIA [id number] [place] [address] Nucleated RBC (Bld) [#/Vol] 10*3/uL Normal <0.01 [facility] Comment on above: Order Comment: Speci men Type: BLOOD SPECIMENOrdering Facility: [facility] Address: [address] [place] [address] Performed By: #### 5 7021-8 ####[facility] LABCLIA [id number] [place] [address] Nucleated RBC/100 WBC (Bld) [Ratio] 0.0 /100 WBC Normal [facility] Comment on above: Order Comment: Speci men Type: BLOOD SPECIMENOrdering Facility: [facility] Address: [address] [place] [address] Performed By: #### 5 7021-8 ####[facility] LABCLIA [id number] [place] [address] Platelet mean volume (Bld) [Entitic vol] 11.3 fL Normal 9.0-12.7 [facility] Comment on above: Order Comment: Speci men Type: BLOOD SPECIMENOrdering Facility: [facility] Address: [address] [place] [address] Performed By: #### 5 7021-8 ####[facility] LABCLIA [id number] [place] [address] Platelets (Bld) [#/Vol] 170 10*3/uL Normal 150-400 [facility] Comment on above: Order Comment: Speci men Type: BLOOD SPECIMENOrdering Facility: [facility] Address: [address] [place] [address] Performed By: #### 5 7021-8 ####[facility] LABCLIA [id number] [place] [address] RBC (Bld) [#/Vol] 2.58 10*6/uL Low 3.90-5.20 [facility] Comment on above: Order Comment: Speci men Type: BLOOD SPECIMENOrdering Facility: [facility] Address: [address] [place] [address] Performed By: #### 5 7021-8 ####[facility] LABCLIA [id number] [place] [address] WBC (Bld) [#/Vol] 6.11 10*3/uL Normal 3.70-11.00 [facility] Comment on above: Order Comment: Speci men Type: BLOOD SPECIMENOrdering Facility: [facility] Address: [address] [place] [address] Performed By: #### 5 7021-8 ####[facility] LABCLIA [id number] [place] [address] CNOVSPon 01-13-2023 CNOVSP Normal [facility] [facility] 2000 panelon 01-13-2023 Albumin [Mass/Vol] 3.0 g/dL Low 3.9-4.9 [facility] Comment on above: Order Comment: Speci men Type: BLOOD SPECIMENOrdering Facility: [facility] Address: [address] [place] [address] Performed By: #### 2 4323-8 ####[facility] LABIA [id number] [place] [address] ALP [Catalytic activity/Vol] 78 U/L Normal 34-123 [facility] Comment on above: Order Comment: Speci men Type: BLOOD SPECIMENOrdering Facility: [facility] Address: [address] [place] [address] Performed By: #### 2 4323-8 ####[facility] LABCLIA [id number] [place] [address] ALT [Catalytic activity/Vol] 14 U/L Normal 7-38 [facility] Comment on above: Order Comment: Speci men Type: BLOOD SPECIMENOrdering Facility: [facility] Address: [address] [place] [address] Performed By: #### 2 4323-8 ####[facility] LABCLIA [id number] [place] [address] Anion gap [Moles/Vol] 12 mmol/L Normal 9-18 [facility] Comment on above: Order Comment: Speci men Type: BLOOD SPECIMENOrdering Facility: [facility] Address: [address] [place] [address] Performed By: #### 2 4323-8 ####[facility] LABCLIA [id number] [place] [address] AST [Catalytic activity/Vol] 10 U/L Low 13-35 [facility] Comment on above: Order Comment: Speci men Type: BLOOD SPECIMENOrdering Facility: [facility] Address: [address] [place] [address] Performed By: #### 2 4323-8 ####[facility] LABCLIA [id number] [place] [address] Bilirubin [Mass/Vol] 0.4 mg/dL Normal 0.2-1.3 [facility] Comment on above: Order Comment: Speci men Type: BLOOD SPECIMENOrdering Facility: [facility] Address: [address] [place] [address] Performed By: #### 2 4323-8 ####[facility] LABCLIA [id number] [place] [address] Calcium [Mass/Vol] 9.7 mg/dL Normal 8.5-10.2 [facility] Comment on above: Order Comment: Speci men Type: BLOOD SPECIMENOrdering Facility: [facility] Address: [address] [place] [address] Performed By: #### 2 4323-8 ####[facility] LABCLIA [id number] [place] [address] Chloride [Moles/Vol] 97 mmol/L Normal 97-105 [facility] Comment on above: Order Comment: Speci men Type: BLOOD SPECIMENOrdering Facility: [facility] Address: [address] [place] [address] Performed By: #### 2 4323-8 ####[facility] LABCLIA [id number] [place] [address] CO2 [Moles/Vol] 30 mmol/L Normal 22-30 [facility] Comment on above: Order Comment: Speci men Type: BLOOD SPECIMENOrdering Facility: [facility] Address: [address] [place] [address] Performed By: #### 2 4323-8 ####[facility] LABCLIA [id number] [place] [address] Creatinine [Mass/Vol] 21.51 mg/dL High 0.58-0.96 [facility] Comment on above: Order Comment: Speci men Type: BLOOD SPECIMENOrdering Facility: [facility] Address: [address] [place] [address] Performed By: #### 2 4323-8 ####[facility] LABCLIA [id number] [place] [address] Creatinine and Glomerular filtration rate.predicted panel (S/P/Bld) 2 mL/min/1.73m??? Low >=60 [facility] Comment on above: Order Comment: Speci men Type: BLOOD SPECIMENOrdering Facility: [facility] Address: [address] [place] [address] Result Comment: Rylee mated Glomerular Filtration Rate (eGFR) is calculated using the 2020 CKD-EPI creatinine equation. This equation utilizes serum creatinine, sex, and age as parameters. The creatinine assay has traceable calibration to isotope dilution-mass spectrometry. Refer to KDIGO guidelines for clinical interpretation. In patients with unstable renal function, e.g. those with acute kidney injury, the eGFR may not accurately reflect actual GFR. Performed By: #### 2 4323-8 ####[facility] LABCLIA [id number] [place] [address] Glucose [Mass/Vol] 102 mg/dL High 74-99 [facility] Comment on above: Order Comment: Speci men Type: BLOOD SPECIMENOrdering Facility: [facility] Address: [address] [place] [address] Result Comment: The [place] Diabetes [employer] (ADA) provides guidance for cutoff values for fasting glucose and random glucose. The ADA defines fasting as no caloric intake for at least 8 hours. Fasting plasma glucose results between 100 to 125 mg/dL indicate increased risk for diabetes (prediabetes).Fasting plasma glucose results greater than or equal to 126 mg/dL meet the criteria for diagnosis of diabetes. In the absence of unequivocal hyperglycemia, results should be confirmed by repeat testing. In a patient with classic symptoms of hyperglycemia or hyperglycemic crisis, random plasma glucose results greater than or equal to 200 mg/dL meet the criteria for diagnosis of diabetes.Reference: Standards of Medical Care in Diabetes 2016, [place] [employer]. Diabetes Care. 2016.39(Suppl 1). Performed By: #### 2 4323-8 ####[facility] LABCLIA [id number] [place] [address] Potassium [Moles/Vol] 2.9 mmol/L Low 3.7-5.1 [facility] Comment on above: Order Comment: Speci men Type: BLOOD SPECIMENOrdering Facility: [facility] Address: [address] [place] [address] Performed By: #### 2 4323-8 ####[facility] LABCLIA [id number] [place] [address] Protein [Mass/Vol] 5.1 g/dL Low 6.3-8.0 [facility] Comment on above: Order Comment: Speci men Type: BLOOD SPECIMENOrdering Facility: [facility] Address: [address] [place] [address] Performed By: #### 2 4323-8 ####[facility] LABCLIA [id number] [place] [address] Sodium [Moles/Vol] 139 mmol/L Normal 136-144 [facility] Comment on above: Order Comment: Speci men Type: BLOOD SPECIMENOrdering Facility: [facility] Address: [address] [place] [address] Performed By: #### 2 4323-8 ####[facility] LABCLIA [id number] [place] [address] Urea nitrogen [Mass/Vol] 41 mg/dL High 7-21 [facility] Comment on above: Order Comment: Speci men Type: BLOOD SPECIMENOrdering Facility: [facility] Address: [address] [place] [address] Performed By: #### 2 4323-8 ####[facility] LABCLIA [id number] [place] [address] Ferritin SerPl-mCncon 2022 Ferritin [Mass/Vol] 1453.0 ng/mL High 14.7-205.1 [facility] Comment on above: Order Comment: Speci men Type: BLOOD SPECIMENOrdering Facility: [facility] Address: [address] [place] [address] Performed By: #### 2 284-8, 08758-1, 9, 2275-4 ####[facility] LABCLIA [id number] [place] [address] [place] Folate SerPl-mCncon 01-14-20 Folate [Mass/Vol] ng/mL Normal >4.7 [facility] Comment on above: Order Comment: Speci men Type: BLOOD SPECIMENOrdering Facility: [facility] Address: [address] [place] [address] Result Comment: A re sult of > 20 ng/mL is not necessarily indicative of a pathologic or treatable condition: it reflects a limitation of the test methodology.Assay reference range: 4.8 to 24.2 ng/mL. Suitable for detection of folate deficiency.Reference:Folate III (Folate III) [package insert V 1.0 German]. [facility], [place], [place]: January 2015. Performed By: #### 2 284-8, 25340-6, 2131-9, 2275-4 ####[facility] LABCLIA [id number] [place] [id number] [place] Iron and Iron binding capaci ty panelon 01-13-2023 Iron [Mass/Vol] 104 ug/dL Normal 41-186 [facility] Comment on above: Order Comment: Speci men Type: BLOOD SPECIMENOrdering Facility: [facility] Address: [address] [place], [place] [address] Performed By: #### 2 284-8, 29490-5, 9, 2275-4 ####[facility] LABCLIA [id number] [place] [address] [place] Iron binding capacity [Mass/Vol] 126 ug/dL Low 232-386 [facility] Comment on above: Order Comment: Speci men Type: BLOOD SPECIMENOrdering Facility: [facility] Address: [address] [place] [address] Performed By: #### 2 284-8, 08546-9, 9, 2275-4 ####[facility] LABCLIA [id number] [place] [address] [place] Iron/TIBC [Molar ratio] 82.5 % High 15.0-57.0 [facility] Comment on above: Order Comment: Speci men Type: BLOOD SPECIMENOrdering Facility: [facility] Address: [address] [place] [address] Performed By: #### 2 284-8, 10810-1, 9, 4 ####[facility] LABCLIA [id number] [place] [id number] [place] [facility] Cobalamin (Vitamin B12) [Mass/Vol] 997 pg/mL Normal 232-1245 [facility] Comment on above: Order Comment: Speci men Type: BLOOD SPECIMENOrdering Facility: [facility] Address: [address] [place] [address] Performed By: #### 2 284-8, 25123-6, 9, 2275-4 ####[facility] LABCLIA [id number] [place] [id number] [place] BACTERIAL VAGINOSIS NAATon 1 Lactobacillus crispatus+gasseri+j ensenii + Gardnerella vaginalis + Atopobium vaginae rRNA KAUSHAL+probe Ql (Vag fld) Negative Normal Negative for bacterial vaginosis [facility] Comment on above: Order Comment: Speci men Type: SWABOrdering Facility: [facility] Address: [address] [place] [address] Performed By: #### B VAMP, CVTV ####[facility] LABCLIA [id number] [place] [address] [place] CHERRY/TRICHOMONAS NAATon 1 C. glabrata RNA KAUSHAL+probe Ql (Vag fld) Negative Normal Negative for Cherry glabrata [facility] Comment on above: Order Comment: Speci men Type: SWABOrdering Facility: [facility] Address: [address] [place] [address] Performed By: #### B VAMP, CVTV ####[facility] LABCLIA [id number] [place] [address] [place] Cherry sp DNA KAUSHAL+probe Ql (Vag fld) Negative Normal Negative for Cherry species [facility] Comment on above: Order Comment: Speci men Type: SWABOrdering Facility: [facility] Address: [address] [place] [address] Performed By: #### B VAMP, CVTV ####[facility] LABCLIA [id number] [place] [address] [place] T. vaginalis DNA KAUSHAL+probe Ql (Unsp spec) Negative Normal Negative for Trichomonas vaginalis by amplification [facility] Comment on above: Order Comment: Speci men Type: SWABOrdering Facility: [facility] Address: [address] [place] [address] Performed By: #### B VAMP, CVTV ####[facility] LABCLIA [id number] [place] [address] [place] CNOVon 10-31-2023 CNOV Normal [facility] CNPNon 01-06-2023 CNPN Normal [facility] CNPNon 01-05-2023 CNPN Normal [facility] CNCOon 01-04-2023 CNCO Letter Text Normal [facility] CNCNPATEDon 01-01-2023 CNCNPATED Normal [facility] CNOVon 12-31-2022 CNOV Normal [facility] ECG COMPLETEon 12-31-2022 ECG COMPLETE Normal [facility] BLOOD TB SCREENon 12-30-2022 M. tuberculosis tuberculin stim IFN-g Ql (Bld) Negative Normal [facility] Comment on above: Order Comment: Speci men Type: BLOOD SPECIMENOrdering Facility: [facility] Address: [address] [place] [address] Performed By: #### I NFTBP ####[facility] LABCLIA [id number] [place] [address] [place] MITOGEN MINUS NIL 4.96 IU/mL Normal >=0.50 [facility] Comment on above: Order Comment: Speci men Type: BLOOD SPECIMENOrdering Facility: [facility] Address: [address] [place] [address] Performed By: #### I NFTBP ####[facility] LABCLIA [id number] [place] [address] [place] TB GAMMA INTERPRETATION Normal [facility] Comment on above: Order Comment: Speci men Type: BLOOD SPECIMENOrdering Facility: [facility] Address: [address] [place] [address] Performed By: #### I NFTBP ####[facility] LABCLIA [id number] [place] [address] [place] TB NIL 0.88 IU/mL Normal <=8.00 [facility] Comment on above: Order Comment: Speci men Type: BLOOD SPECIMENOrdering Facility: [facility] Address: [address] [place] [address] Performed By: #### I NFTBP ####[facility] LABCLIA [id number] [place] [address] [place] TB1 AG MINUS NIL 0.00 IU/mL Normal <0.35 [facility] Comment on above: Order Comment: Speci men Type: BLOOD SPECIMENOrdering Facility: [facility] Address: [address] [place] [address] Performed By: #### I NFTBP ####[facility] LABCLIA [id number] [place] [address] [place] TB2 AG MINUS NIL 0.01 IU/mL Normal <0.35 [facility] Comment on above: Order Comment: Speci men Type: BLOOD SPECIMENOrdering Facility: [facility] Address: [address] [place] [address] Performed By: #### I NFTBP ####[facility] LABIA [id number] [address] [place] CARDIOLIPIN IGG ABSon 2022 Cardiolipin IgG IA Qn (S) <9.0 Normal <15.0 [facility] Comment on above: Order Comment: Speci men Type: BLOOD SPECIMENOrdering Facility: [facility] Address: [address] [place] [address] Result Comment: <15 GPL [id number] GPL Indeterminate>20 GPL PositiveThe following results were obtained with the [employer] QUANTA Lite JANET IgG III CAROL. Cardiolipin IgG values obtained with the different manufacturers' assay methods may not be used interchangeably. The magnitude of the reported IgG levels cannot be correlated to an endpoint titer. Performed By: #### 5 076-5JEAN PAUL CARDIM ####[facility] LABCLIA [id number] [place] [address] [place] CARDIOLIPIN IGM ABSon 2022 Cardiolipin IgM IA Qn (S) <9.0 Normal <12.5 [facility] Comment on above: Order Comment: Speci men Type: BLOOD SPECIMENOrdering Facility: [facility] Address: [address] [place] [address] Result Comment: <12. 5 MPL Rbdtbucb82.5-20 MPL Indeterminate>20 MPL PositiveThe following results were obtained with the [employer] QUANTA Lite JANET IgM III CAROL. Cardiolipin IgM values obtained with the different manufacturers' assay methods may not be used interchangeably. The magnitude of the reported IgM levels cannot be correlated to an endpoint titer.??? Performed By: #### 5 076-5, LAURA REAVES ####[facility] LABCLIA [id number] [place] [address] [place] CBC W Auto Differential pane l (Bld)on 12-30-2022 Basophils (Bld) [#/Vol] 10*3/uL Normal <0.11 [facility] Comment on above: Order Comment: Speci men Type: BLOOD SPECIMENOrdering Facility: [facility] Address: [address] [place] [address] Performed By: #### 5 7021-8 ####[facility] LABCLIA [id number] [place] [address] [place] Basophils/100 WBC (Bld) 0.4 % Normal [facility] Comment on above: Order Comment: Speci men Type: BLOOD SPECIMENOrdering Facility: [facility] Address: [address] [place] [address] Performed By: #### 5 7021-8 ####[facility] LABCLIA [id number] [place] [address] [place] Differential cell count method Nom (Bld) Auto Normal [facility] Comment on above: Order Comment: Speci men Type: BLOOD SPECIMENOrdering Facility: [facility] Address: [address] [place] [address] Performed By: #### 5 7021-8 ####[facility] LABCLIA [id number] [place] [address] [place] Eosinophils (Bld) [#/Vol] 0.33 10*3/uL Normal <0.46 [facility] Comment on above: Order Comment: Speci men Type: BLOOD SPECIMENOrdering Facility: [facility] Address: [address] [place] [address] Performed By: #### 5 7021-8 ####[facility] LABCLIA [id number] [place] [address] [place] Eosinophils/100 WBC (Bld) 6.7 % Normal [facility] Comment on above: Order Comment: Speci men Type: BLOOD SPECIMENOrdering Facility: [facility] Address: [address] [place] [address] Performed By: #### 5 7021-8 ####[facility] LABCLIA [id number] [place] [address] [place] Erythrocyte distribution width (RBC) [Ratio] 13.7 % Normal 11.5-15.0 [facility] Comment on above: Order Comment: Speci men Type: BLOOD SPECIMENOrdering Facility: [facility] Address: [address] [place] [address] Performed By: #### 5 7021-8 ####[facility] LABCLIA [id number] [place] [address] [place] Hematocrit (Bld) [Volume fraction] 26.8 % Low 36.0-46.0 [facility] Comment on above: Order Comment: Speci men Type: BLOOD SPECIMENOrdering Facility: [facility] Address: [address] [place] [address] Performed By: #### 5 7021-8 ####[facility] LABCLIA [id number] [place] [address] [place] Hemoglobin (Bld) [Mass/Vol] 9.1 g/dL Low 11.5-15.5 [facility] Comment on above: Order Comment: Speci men Type: BLOOD SPECIMENOrdering Facility: [facility] Address: [address] [place] [address] Performed By: #### 5 7021-8 ####[facility] LABCLIA [id number] [place] [address] [place] Immature granulocytes (Bld) [#/Vol] 10*3/uL Normal <0.10 [facility] Comment on above: Order Comment: Speci men Type: BLOOD SPECIMENOrdering Facility: [facility] Address: [address] [place] [address] Performed By: #### 5 7021-8 ####[facility] LABCLIA [id number] [place] [address] [place] Immature granulocytes/100 WBC (Bld) 0.4 % Normal [facility] Comment on above: Order Comment: Speci men Type: BLOOD SPECIMENOrdering Facility: [facility] Address: [address] [place] [address] Performed By: #### 5 7021-8 ####[facility] LABCLIA [id number] [place] [address] [place] Lymphocytes (Bld) [#/Vol] 0.73 10*3/uL Low 1.00-4.00 [facility] Comment on above: Order Comment: Speci men Type: BLOOD SPECIMENOrdering Facility: [facility] Address: [address] [place] [address] Performed By: #### 5 7021-8 ####[facility] LABCLIA [id number] [place] [address] [place] Lymphocytes/100 WBC (Bld) 14.8 % Normal [facility] Comment on above: Order Comment: Speci men Type: BLOOD SPECIMENOrdering Facility: [facility] Address: [address] [place] [address] Performed By: #### 5 7021-8 ####[facility] LABCLIA [id number] [place] [address] [place] MCH (RBC) [Entitic mass] 34.1 pg High 26.0-34.0 [facility] Comment on above: Order Comment: Speci men Type: BLOOD SPECIMENOrdering Facility: [facility] Address: [address] [place] [address] Performed By: #### 5 7021-8 ####[facility] LABIA [id number] [place] [address] [place] MCHC (RBC) [Mass/Vol] 34.0 g/dL Normal 30.5-36.0 [facility] Comment on above: Order Comment: Speci men Type: BLOOD SPECIMENOrdering Facility: [facility] Address: [address] [place] [address] Performed By: #### 5 7021-8 ####[facility] [id number] [place] [address] [place] MCV (RBC) [Entitic vol] 100.4 fL High 80.0-100.0 [facility] Comment on above: Order Comment: Speci men Type: BLOOD SPECIMENOrdering Facility: [facility] Address: [address] [place] [address] Performed By: #### 5 7021-8 ####[facility] LABIA [id number] [place] [address] [place] Monocytes (Bld) [#/Vol] 0.35 10*3/uL Normal <0.87 [facility] Comment on above: Order Comment: Speci men Type: BLOOD SPECIMENOrdering Facility: [facility] Address: [address] [place] [address] Performed By: #### 5 7021-8 ####[facility] LABIA [id number] [place] [address] [place] Monocytes/100 WBC (Bld) 7.1 % Normal [facility] Comment on above: Order Comment: Speci men Type: BLOOD SPECIMENOrdering Facility: [facility] Address: [address] [place] [address] Performed By: #### 5 7021-8 ####[facility] LABCLIA [id number] [place] [address] [place] Neutrophils (Bld) [#/Vol] 3.48 10*3/uL Normal 1.45-7.50 [facility] Comment on above: Order Comment: Speci men Type: BLOOD SPECIMENOrdering Facility: [facility] Address: [address] [place] [address] Performed By: #### 5 7021-8 ####[facility] LABCLIA [id number] [place] [address] [place] Neutrophils/100 WBC (Bld) 70.6 % Normal [facility] Comment on above: Order Comment: Speci men Type: BLOOD SPECIMENOrdering Facility: [facility] Address: [address] [place] [address] Performed By: #### 5 7021-8 ####[facility] LABCLIA [id number] [place] [address] [place] Nucleated RBC (Bld) [#/Vol] 10*3/uL Normal <0.01 [facility] Comment on above: Order Comment: Speci men Type: BLOOD SPECIMENOrdering Facility: [facility] Address: [address] [place] [address] Performed By: #### 5 7021-8 ####[facility] LABCLIA [id number] [place] [address] [place] Nucleated RBC/100 WBC (Bld) [Ratio] 0.0 /100 WBC Normal [facility] Comment on above: Order Comment: Speci men Type: BLOOD SPECIMENOrdering Facility: [facility] Address: [address] [place] [address] Performed By: #### 5 7021-8 ####[facility] LABCLIA [id number] [place] [address] [place] Platelet mean volume (Bld) [Entitic vol] 11.9 fL Normal 9.0-12.7 [facility] Comment on above: Order Comment: Speci men Type: BLOOD SPECIMENOrdering Facility: [facility] Address: [address] [place] [address] Performed By: #### 5 7021-8 ####[facility] LABCLIA [id number] [place] [address] [place] Platelets (Bld) [#/Vol] 147 10*3/uL Low 150-400 [facility] Comment on above: Order Comment: Speci men Type: BLOOD SPECIMENOrdering Facility: [facility] Address: [address] [place] [address] Performed By: #### 5 7021-8 ####[facility] LABCLIA [id number] [place] [address] [place] RBC (Bld) [#/Vol] 2.67 10*6/uL Low 3.90-5.20 [facility] Comment on above: Order Comment: Speci men Type: BLOOD SPECIMENOrdering Facility: [facility] Address: [address] [place] [address] Performed By: #### 5 7021-8 ####[facility] LABIA [id number] [place] [address] [place] WBC (Bld) [#/Vol] 4.93 10*3/uL Normal 3.70-11.00 [facility] Comment on above: Order Comment: Speci men Type: BLOOD SPECIMENOrdering Facility: [facility] Address: [address] [place] [address] Performed By: #### 5 7021-8 ####[facility] LABCLIA [id number] [place] [address] [place] CNOVon 12-30-2022 CNOV Normal [facility] CNOV Normal [facility] CNOV Normal [facility] CNSWon 12-30-2022 CNSW Normal [facility] COAG CORE PANEL BLDon 2022 aPTT Coag (PPP) [Time] 25.2 s Normal 23.0-32.4 [facility] Comment on above: Order Comment: Isaiah mitchell Type: BLOOD SPECIMENOrdering Facility: [facility] Address: [address] [place] [address] Performed By: #### C ORPNL ####[facility] [id number] [place] [address] [place] Fibrinogen Coag (PPP) [Mass/Vol] 456 mg/dL High 200-400 [facility] Comment on above: Order Comment: Isaiah mitchell Type: BLOOD SPECIMENOrdering Facility: [facility] Address: [address] [place] [address] Result Comment: Roman sullivan checked for clot.Result rechecked. Performed By: #### C ORPNL ####[facility] [id number] [address] [place] INR Coag (PPP) [Relative time] 1.0 {INR} Normal 0.9-1.3 [facility] Comment on above: Order Comment: Isaiah mitchell Type: BLOOD SPECIMENOrdering Facility: [facility] Address: [address] [place] [address] Result Comment: Sudha min K Antagonist (VKA) Therapeutic Range: INR 2 to 3 (Target INR of 2.5)Note: For patients treated with VKA drugs, such as warfarin, the [place] [employer] 2012 Guideline recommends a therapeutic INR range of 2 to 3 (target INR of 2.5). This recommendation includes high-risk patients with antiphospholipid syndrome with previous arterial or venous thromboembolism, current-generation mechanical or bioprosthetic aortic heart valve replacement.Note: Patients with mechanical aortic valve replacement and additional risk factors for thromboembolic events (atrial fibrillation, previous thromboembolism, LV dysfunction, hypercoagulable conditions) or an older generation mechanical AVR (i.e., ball in-Cage) or any mechanical MVR should have a INR therapeutic range of 2.5 to 3.5 (target INR of 3).Steven YBARRA, et al. Chest 2012, 141:7S-47SNishimura RA, et al. [facility] 2017, 70: 252-289 Performed By: #### C ORPNL ####[facility] LABIA [id number] [place] [address] [place] PT Coag (PPP) [Time] 10.8 s Normal 9.7-13.0 [facility] Comment on above: Order Comment: Speci men Type: BLOOD SPECIMENOrdering Facility: [facility] Address: [address] [place] [address] Performed By: #### C ORPNL ####[facility] LABIA [id number] [place] [address] [place] CRP SerPl-ncon 12-30-2022 CRP [Mass/Vol] mg/L Normal <0.9 [facility] Comment on above: Order Comment: Speci men Type: BLOOD SPECIMENOrdering Facility: [facility] Address: [address] [place] [address] Performed By: #### 1 988-5, 2276-4, 54694-6, 16033-4 ####[facility] LABIA [id number] [place] [address] [place] Cardiolipin IgA Ser IA-aCnco n 12-30-2022 Cardiolipin IgA IA Qn (S) <9.0 Normal <12.0 [facility] Comment on above: Order Comment: Speci men Type: BLOOD SPECIMENOrdering Facility: [facility] Address: [address] [place] [address] Result Comment: <12 APL [id number] APL Indeterminate>20 APL PositiveThe following results were obtained with the [employer] QUANTA Lite JANET IgA III CAROL. Cardiolipin IgA values obtained with the different manufacturers' assay methods may not be used interchangeably. The magnitude of the reported IgA levels cannot be correlated to an endpoint titer. Performed By: #### 5 076-5, LAURA REAVES ####[facility] LABCLIA [id number] [address] [address] [place] Comprehensive metabolic 2000 panelon 12-30-2022 Albumin [Mass/Vol] 3.0 g/dL Low 3.9-4.9 [facility] Comment on above: Order Comment: Speci men Type: BLOOD SPECIMENOrdering Facility: [facility] Address: [address] [place] [address] Performed By: #### 1 988-5, 6-4, 21782-0, 27650-7 ####[facility] LABCLIA [id number] [place] [address] [place] ALP [Catalytic activity/Vol] 72 U/L Normal 34-123 [facility] Comment on above: Order Comment: Speci men Type: BLOOD SPECIMENOrdering Facility: [facility] Address: [address] [place] [address] Performed By: #### 1 988-5, 6-4, 12561-1, 75889-7 ####[facility] LABCLIA [id number] [place] [id number] [place] ALT [Catalytic activity/Vol] 21 U/L Normal 7-38 [facility] Comment on above: Order Comment: Speci men Type: BLOOD SPECIMENOrdering Facility: [facility] Address: [address] [place] [address] Performed By: #### 1 988-5, 6-4, 18085-9, 74429-3 ####[facility] LABCLIA [id number] [place] [id number] [place] Anion gap [Moles/Vol] 16 mmol/L Normal 9-18 [facility] Comment on above: Order Comment: Speci men Type: BLOOD SPECIMENOrdering Facility: [facility] Address: [address] [place] [address] Performed By: #### 1 988-5, 2276-4, 86754-8, 18927-8 ####[facility] LABCLIA [id number] [place] [id number] [place] AST [Catalytic activity/Vol] 19 U/L Normal 13-35 [facility] Comment on above: Order Comment: Speci men Type: BLOOD SPECIMENOrdering Facility: [facility] Address: [address] [place] [address] Performed By: #### 1 988-5, 2276-4, 37175-4, 60343-6 ####[facility] LABCLIA [id number] [place] [address] [place] Bilirubin [Mass/Vol] 0.3 mg/dL Normal 0.2-1.3 [facility] Comment on above: Order Comment: Speci men Type: BLOOD SPECIMENOrdering Facility: [facility] Address: [address] [place] [address] Performed By: #### 1 988-5, 2276-4, 14607-0, 42037-3 ####[facility] LABIA [id number] [place] [address] [place] Calcium [Mass/Vol] 10.3 mg/dL High 8.5-10.2 [facility] Comment on above: Order Comment: Speci men Type: BLOOD SPECIMENOrdering Facility: [facility] Address: [address] [place] [address] Performed By: #### 1 988-5, 2276-4, 63776-6, 94941-8 ####[facility] LABIA [id number] [place] [id number] [place] Chloride [Moles/Vol] 96 mmol/L Low 97-105 [facility] Comment on above: Order Comment: Speci men Type: BLOOD SPECIMENOrdering Facility: [facility] Address: [address] [place] [address] Performed By: #### 1 988-5, 2276-4, 27027-9, 19061-9 ####[facility] LABCLIA [id number] [place] [address] [place] CO2 [Moles/Vol] 27 mmol/L Normal 22-30 [facility] Comment on above: Order Comment: Specmiguel angel mitchell Type: BLOOD SPECIMENOrdering Facility: [facility] Address: [address] [place] [address] Performed By: #### 1 988-5, 2276-4, 57256-1, 05074-9 ####[facility] LABCLIA [id number] [place] [address] [place] Creatinine [Mass/Vol] 17.82 mg/dL High 0.58-0.96 [facility] Comment on above: Order Comment: Speci men Type: BLOOD SPECIMENOrdering Facility: [facility] Address: [address] [place] [address] Performed By: #### 1 988-5, 2276-4, 85236-1, 01001-2 ####[facility] LABIA [id number] [place] [address] [place] Creatinine and Glomerular filtration rate.predicted panel (S/P/Bld) 2 mL/min/1.73m??? Low >=60 [facility] Comment on above: Order Comment: Isaiah mitchell Type: BLOOD SPECIMENOrdering Facility: [facility] Address: [address] [place] [address] Result Comment: Rylee mated Glomerular Filtration Rate (eGFR) is calculated using the 2020 CKD-EPI creatinine equation. This equation utilizes serum creatinine, sex, and age as parameters. The creatinine assay has traceable calibration to isotope dilution-mass spectrometry. Refer to KDIGO guidelines for clinical interpretation. In patients with unstable renal function, e.g. those with acute kidney injury, the eGFR may not accurately reflect actual GFR. Performed By: #### 1 988-5, 2276-4, 29966-0, 22368-3 ####[facility] LABCLIA [id number] [place] [id number] [place] Glucose [Mass/Vol] 95 mg/dL Normal 74-99 [facility] Comment on above: Order Comment: Speci men Type: BLOOD SPECIMENOrdering Facility: [facility] Address: [address] [place] [address] Result Comment: The [place] Diabetes Association (ADA) provides guidance for cutoff values for fasting glucose and random glucose. The ADA defines fasting as no caloric intake for at least 8 hours. Fasting plasma glucose results between 100 to 125 mg/dL indicate increased risk for diabetes (prediabetes).Fasting plasma glucose results greater than or equal to 126 mg/dL meet the criteria for diagnosis of diabetes. In the absence of unequivocal hyperglycemia, results should be confirmed by repeat testing. In a patient with classic symptoms of hyperglycemia or hyperglycemic crisis, random plasma glucose results greater than or equal to 200 mg/dL meet the criteria for diagnosis of diabetes.Reference: Standards of Medical Care in Diabetes 2016, [place] [employer]. Diabetes Care. 2016.39(Suppl 1). Performed By: #### 1 988-5, 2276-4, 47471-9, 39222-9 ####[facility] LABCLIA [id number] [place] [address] [place] Potassium [Moles/Vol] 2.5 mmol/L Low 3.7-5.1 [facility] Comment on above: Order Comment: Isaiah mitchell Type: BLOOD SPECIMENOrdering Facility: [facility] Address: [address] [place] [address] Performed By: #### 1 988-5, 2276-4, 10281-3, 08901-6 ####[facility] LABCLIA [id number] [place] [id number] [place] Protein [Mass/Vol] 5.4 g/dL Low 6.3-8.0 [facility] Comment on above: Order Comment: Isaiah mitchell Type: BLOOD SPECIMENOrdering Facility: [facility] Address: [address] [place] [address] Performed By: #### 1 988-5, 2276-4, 62925-3, 27369-1 ####[facility] LABCLIA [id number] [place] [address] [place] Sodium [Moles/Vol] 139 mmol/L Normal 136-144 [facility] Comment on above: Order Comment: Speci men Type: BLOOD SPECIMENOrdering Facility: [facility] Address: [address] [place] [address] Performed By: #### 1 988-5, 2276-4, 27052-4, 25423-0 ####[facility] LABCLIA [id number] [place] [address] [place] Urea nitrogen [Mass/Vol] 43 mg/dL High 7-21 [facility] Comment on above: Order Comment: Speci men Type: BLOOD SPECIMENOrdering Facility: [facility] Address: [address] [place] [address] Performed By: #### 1 988-5, 2276-4, 22102-5, 97046-9 ####[facility] LABCLIA [id number] [place] [address] [place] Ferritin SerPl-mCncon 2022 Ferritin [Mass/Vol] 1350.0 ng/mL High 14.7-205.1 [facility] Comment on above: Order Comment: Speci men Type: BLOOD SPECIMENOrdering Facility: [facility] Address: [address] [place] [address] Performed By: #### 1 988-5, 2276-4, 13817-9, 72406-1 ####[facility] LABIA [id number] [place] [address] [place] Folate SerPl-mCncon 12-30-20 23 Folate [Mass/Vol] ng/mL Normal >4.7 [facility] Comment on above: Order Comment: Speci men Type: BLOOD SPECIMENOrdering Facility: [facility] Address: [address] [place] [address] Result Comment: A re sult of > 20 ng/mL is not necessarily indicative of a pathologic or treatable condition: it reflects a limitation of the test methodology.Assay reference range: 4.8 to 24.2 ng/mL. Suitable for detection of folate deficiency.Reference:Folate III (Folate III) [package insert V 1.0 German]. [facility], [place], [place]: January 2015. Performed By: #### 2 132-9, 2284-8 ####[facility] LABCLIA [id number] [address] [place] HBV core Ab Ser Qlon 023 HBV core Ab Ql (S) Negative Normal Negative [facility] Comment on above: Order Comment: Speci men Type: BLOOD SPECIMENOrdering Facility: [facility] Address: [address] [place] [address] Result Comment: No e vidence of current or past infection with Hepatitis B virus. Should recent infection be suspected, repeat testing may be considered 3-4 weeks after this draw. Performed By: #### 5 195-3, 19252-6, 30363-3, 02311-9 ####[facility] LABCLIA [id number] [address] HBV surface Ab Ql (S)on 12-13 HBV surface Ab Qn (S) <8.00 Normal [facility] Comment on above: Order Comment: Speci men Type: BLOOD SPECIMENOrdering Facility: [facility] Address: [address] [place] [address] Result Comment: <8 m IU/mL: No serological evidence of immunity to Hepatitis B Virus.>/= 8 to <12 mIU/mL: No serological evidence of immunity to Hepatitis B Virus.>/= 12 mIU/mL: Consistent with serological evidence of immunity to Hepatitis B Virus. Performed By: #### 5 195-3, 03081-9, 30387-6, 58292-5 ####[facility] LABCLIA [id number] [address] [place] HBV surface Ab Ser Qlon 12-13 HBV surface Ab Ql (S) Negative Normal [facility] Comment on above: Order Comment: Speci men Type: BLOOD SPECIMENOrdering Facility: [facility] Address: [address] [place] [address] Result Comment: No s erological evidence of immunity to Hepatitis B Virus. Performed By: #### 5 195-3, 77793-8, 92075-7, 25975-8 ####[facility] LABCLIA [id number] [place] [address] [place] HBV surface Ag Ser Qlon 12-13 HBV surface Ag Ql (S) Negative Normal Negative [facility] Comment on above: Order Comment: Speci men Type: BLOOD SPECIMENOrdering Facility: [facility] Address: [address] [place] [address] Performed By: #### 5 195-3, 07611-9, 81108-6, 95489-5 ####[facility] LABCLIA [id number] [place] [address] [place] HCV Ab Ser Qlon 12-30-2022 HCV Ab Ql (S) Negative Normal Negative [facility] Comment on above: Order Comment: Speci men Type: BLOOD SPECIMENOrdering Facility: [facility] Address: [address] [place] [address] Result Comment: The result suggests no evidence of active infection with Hepatitis C virus. Should recent infection be suspected, repeat testing may be considered 4-6 weeks after this draw. Performed By: #### 1 6128-1 ####[facility] LABCLIA [id number] [place] [address] [place] HCV RNA SerPl KAUSHAL+probe-aCnc on 12-30-2022 HCV RNA KAUSHAL+probe Qn Not detected Normal HCV RNA not detected by PCR. [facility] Comment on above: Order Comment: Speci [facility] Type: BLOOD SPECIMENOrdering Facility: [facility] Address: [address] [place] [address] Performed By: #### 1 1011-4 ####[facility] LABCLIA [id number] [address] [place] HIV 1+2 Ab IA Qlon 3 HIV 1 and 2 Ab IA.rapid Nom Normal [facility] Comment on above: Order Comment: Speci men Type: BLOOD SPECIMENOrdering Facility: [facility] Address: [address] [place] [address] Result Comment: Test not indicated. Performed By: #### 5 195-3, 88271-0, 65372-2, 83816-7 ####[facility] LABCLIA [id number] [address] [place] HIV 1+2 Ab+HIV1 p24 Ag IA Ql Non-Reactive Normal Nonreactive [facility] Comment on above: Order Comment: Speci men Type: BLOOD SPECIMENOrdering Facility: [facility] Address: [address] [place] [address] Performed By: #### 5 195-3, 53723-4, 96621-8, 61207-8 ####[facility] LABCLIA [id number] [address] [place] HIV immunoassay testing algorithm interpretation (S/P/Bld) [Interp] Normal [facility] Comment on above: Order Comment: Speci men Type: BLOOD SPECIMENOrdering Facility: [facility] Address: [address] [place] [address] Result Comment: No e vidence of HIV-1 or HIV-2 infection. Should recent infection be suspected, repeat testing may be considered 2-3 weeks after this draw.[place] Rev. Code 3701.243(E): This information has been disclosed to you from confidential records protected from disclosure by state law. ???You shall make no further disclosure of this information without the specific, written, and informed release of the individual to whom it pertains or as otherwise permitted by state law. A general authorization for the release of medical or other information is not sufficient for the purpose of the release of HIV test results or diagnoses. Performed By: #### 5 195-3, 19587-5, 15929-0, 76146-8 ####[facility] LABCLIA [id number] [place] [address] [place] HYPERCOAG PANELon 12-30-2022 Antithrombin actual/normal Chromogenic method (PPP) [Rel catalytic activity/Vol] 121 % Normal 84-138 [facility] Comment on above: Order Comment: Speci men Type: BLOOD SPECIMENOrdering Facility: [facility] Address: [address] [place] [address] Performed By: #### H COAG, F8CH ####[facility] LABIA [id number] [place] [address] [place] aPTT Coag (Bld) [Time] 27.6 s Normal 24.0-35.1 [facility] Comment on above: Order Comment: Speci men Type: BLOOD SPECIMENOrdering Facility: [facility] Address: [address] [place] [address] Performed By: #### H COAG, F8CH ####[facility] LABIA [id number] [place] [address] [place] Coagulation factor VIII Activity.Xa activator Chromogenic method Qn (PPP) 135 % Normal 50-150 [facility] Comment on above: Order Comment: Speci men Type: BLOOD SPECIMENOrdering Facility: [facility] Address: [address] [place] [address] Performed By: #### H COAG, F8CH ####[facility] LABIA [id number] [place] [address] [place] Protein C actual/normal Coag (PPP) [Relative time] 127 % Normal 76-147 [facility] Comment on above: Order Comment: Speci men Type: BLOOD SPECIMENOrdering Facility: [facility] Address: [address] [place] [address] Performed By: #### H COAG, F8CH ####[facility] LABIA [id number] [place] [address] [place] Protein S actual/normal Chromogenic method (PPP) [Rel catalytic activity/Vol] 130 % Normal 74-156 [facility] Comment on above: Order Comment: Speci men Type: BLOOD SPECIMENOrdering Facility: [facility] Address: [address] [place] [address] Performed By: #### H COAG, F8CH ####[facility] LABCLIA [id number] [place] [address] [place] Protein S Free Ag actual/normal IA (PPP) [Relative mass conc] 96 % Normal 55-148 [facility] Comment on above: Order Comment: Speci men Type: BLOOD SPECIMENOrdering Facility: [facility] Address: [address] [place] [address] Performed By: #### H COAG, F8CH ####[facility] LABCLIA [id number] [place] [address] [place] Thrombin time Coag (PPP) [Time] 17.0 seconds Normal <18.6 [facility] Comment on above: Order Comment: Speci men Type: BLOOD SPECIMENOrdering Facility: [facility] Address: [address] [place] [address] Performed By: #### H COAG, F8CH ####[facility] LABIA [id number] [place] [address] [place] Iron and Iron binding capaci ty panelon 12-30-2022 Iron [Mass/Vol] 106 ug/dL Normal 41-186 [facility] Comment on above: Order Comment: Speci men Type: BLOOD SPECIMENOrdering Facility: [facility] Address: [address] [place] [address] Performed By: #### 1 988-5, 2276-4, 67376-0, 44729-8 ####[facility] LABCLIA [id number] [place] [address] [place] Iron binding capacity [Mass/Vol] 140 ug/dL Low 232-386 [facility] Comment on above: Order Comment: Speci men Type: BLOOD SPECIMENOrdering Facility: [facility] Address: [address] [place] [address] Performed By: #### 1 988-5, 2276-4, 49804-9, 02505-4 ####[facility] LABCLIA [id number] [place] [address] [place] Iron/TIBC [Molar ratio] 75.7 % High 15.0-57.0 [facility] Comment on above: Order Comment: Speci men Type: BLOOD SPECIMENOrdering Facility: [facility] Address: [address] [place] [address] Performed By: #### 1 988-5, 2276-4, 17905-7, 33848-7 ####[facility] LABCLIA [id number] [place] [address] [place] KID K/P PANC REC HLA AB SCRN on 12-30-2022 ALLOGEN RESULTS TO FOLLOW See Allogen report to follow Normal [facility] Comment on above: Order Comment: Speci [facility] Type: BLOOD SPECIMENOrdering Facility: [facility] Address: [address] [place] [address] Performed By: #### K PRHAS ####[facility] [id number] [address] [place] PROTHROMBIN GENE PCRon 12-30 PROTHROMBIN GENE MUTATION Normal [facility] Comment on above: Order Comment: Speci men Type: BLOOD SPECIMENOrdering Facility: [facility] Address: [address] [place] [address] Result Comment: Prot hrombin Gene MutationLaboratory Accession Number: [id number]:NORMALInterpretation:The DNA sample is negative for the c.*97G>A variant (legacy [id number]>A) in the 3' untranslated region of the Factor II (F2) gene.This result is not associated with an increased risk of thromboembolicdisease. Thromboembolic disease is a multifactorial disorder and othercauses are not excluded by this result.Methodology:Isolated Genomic DNA from the patient's blood specimen is evaluatedfor the c*97G>A ([id number]) variant of the F2 gene [RefSeqNM_[id number];GRCh38/hg38] by multiplex polymerase chain reaction(PCR) followed by melting curve analysis.Limitations:This assay is designed to detect the c.*97G>A (14466S>A) variant inthe F2 gene. Uncommon variants or single nucleotide polymorphisms mayaffect binding of probes and may rarely result in false negative,false positive or indeterminate results. This assay does not detectother disease-associated rare variants in F2 or other causes ofthromboembolic disease.Disclaimer:This test was developed and its performance characteristics determinedby [facility] LaboratoryMed[facility] [place] ([facility]). It has not been cleared or approved bythe FDA. -[facility] is regulated under CLIA as certified to perform high-complexity testing. This test is used for clinical purposes. It shouldnot be regarded as investigational or for research.Testing [place] [address]. CLIA Number: [id number]:1) Inheritied Thrombophilias in . ACOG Practice Bulletin. No.197. [place] [employer]. ObseteGynecol 2018;132:e18-34.2) Ana SR, Nichol FR, Belgica PH, and Vickie DASH. A commongenetic variation in the 3'-untranslated region of the prothrombingene is associated with elevated plasma prothrombin levels and anincrease in venous thrombosis. Blood 88:3698-703, 1995.3) Siri I, Kelly V, Julian C, Angela K. [id number]>T: 16 new cases, association with the 96927G>G polymorphism,and literature review. J Thromb Haemost. 2009;9:1585-7.As reviewed by Nelly Mariscal, PhD, FACMG Performed By: #### P TGEN ####[facility] [id number] [address] [place] Reagin and Treponema pallidu m IgG and IgM [Interp]on 10-18-2023 T. pallidum IgG+IgM IA Ql (S) Non-Reactive Normal Nonreactive [facility] Comment on above: Order Comment: Isaiah mitchell Type: BLOOD SPECIMENOrdering Facility: [facility] Address: [address] [place] [address] Performed By: #### 7 3752-8 ####[facility] LABCLIA [id number] [place] [address] [place] Reagin+T pallidum IgG+IgM Se rPl-Impon 12-30-2022 Reagin and Treponema pallidum IgG and IgM [Interp] Cannot exclude recent Treponemal infection if specimen collected within 7-10 days after appearance of suspect lesions or 2-3 weeks after an exposure. Clinical correlation is required. Normal [facility] Comment on above: Order Comment: Isaiah mitchell Type: BLOOD SPECIMENOrdering Facility: [facility] Address: [address] [place] [address] Performed By: #### 7 3752-8 ####[facility] LABIA [id number] [place] [address] [place] VARICELLA ZOSTER IGGon 12-30 VARICELLA ZOSTER IGG, QUAL Positive Normal Positive [facility] Comment on above: Order Comment: Isaiah mitchell Type: BLOOD SPECIMENOrdering Facility: [facility] Address: [address] [place] [address] Result Comment: The result suggests recent or past exposure to Varicella-Zoster virus or chickenpox vaccination or zoster vaccination. Positive result may also be seen due to presence of passively-transferred antibodies. Please correlate with patient's history. Performed By: #### V ZVG2 ####[facility] LABIA [id number] [place] [address] [place] Vit B12 SerPl-mCncon 023 Cobalamin (Vitamin B12) [Mass/Vol] 801 pg/mL Normal 232-1245 [facility] Comment on above: Order Comment: Isaiah mitchell Type: BLOOD SPECIMENOrdering Facility: [facility] Address: [address] [place], [place] [address] [address] Performed By: #### 2 132-9, 2284-8 ####[facility] LABCLIA [id number] SH[place]IA [place] [address] [place] ABO/Rh Retypeon 12-25-2022 ABO/RH Recheck Result Positive Normal [facility] Comment on above: Result Comment: PERF ORMED BY: [address] [place] [address] PATHOLOGIST ENTRY TABLE OPERATOR JESSE GARZA M.D. Erythrocyte distribution wid th Auto (RBC) [Ratio]Ordered By: Natali Child on 12-25-2022 Erythrocyte distribution width (RBC) [Ratio] 14.9 % 11.9-15.3 [facility] Hematocrit Auto (Bld) [Volum e fraction]Ordered By: Natali Child on 12-25-2022 Hematocrit (Bld) [Volume fraction] 20.8 % 34.0-46.4 [facility] Hemoglobin [Mass/volume] in BloodOrdered By: Natali Child on 12-25-2022 Hemoglobin (Bld) [Mass/Vol] 7.4 g/dL 11.8-15.4 [facility] Hemogram CBC Without Diffon 12-25-2022 Erythrocyte distribution width (RBC) [Ratio] 14.9 % Normal 11.9-15.3 [facility] Comment on above: Performed By: #### C BCNO #### [facility] [address] [place] [address] Hematocrit (Bld) [Volume fraction] 20.8 % Low 34.0-46.4 [facility] Comment on above: Performed By: #### C BCNO #### [facility] [address] [place] [address] Hemoglobin (Bld) [Mass/Vol] 7.4 g/dL Low 11.8-15.4 [facility] Comment on above: Performed By: #### C BCNO #### [facility] [address] [place] [address] MCH (RBC) [Entitic mass] 35.7 pg High 24.7-34.3 [facility] Comment on above: Performed By: #### C BCNO #### [address] MCV (RBC) [Entitic vol] 100.0 fL Normal 80-100 [facility] Comment on above: Performed By: #### C BCNO #### [address] Mean Corpuscular HGB Conc 35.7 g/dL High 32.0-35.0 [facility] Comment on above: Performed By: #### C BCNO #### [address] Platelet mean volume (Bld) [Entitic vol] 9.7 fL Normal 6.3-10.7 [facility] Comment on above: Result Comment: PERF ORMED BY: [place] [address] PATHOLOGIST ENTRY TABLE OPERATOR JESSE GARZA M.D. Performed By: #### C BCNO #### [address] Platelets (Bld) [#/Vol] 147 10*3/uL Low 150-450 [facility] Comment on above: Performed By: #### C BCNO #### [address] RBC (Bld) [#/Vol] 2.08 10*6/uL Low 3.60-5.00 [facility] Comment on above: Performed By: #### C BCNO #### [address] WBC (Bld) [#/Vol] 4.8 10*3/uL Normal 3.8-11.6 [facility] Comment on above: Performed By: #### C BCNO #### [place] [address] [place] LeukoReduced RBCon 3 LeukoReduced RBC TRANSFUSED 12/25/22 1108 Normal [facility] Leukocytes [#/volume] correc germania for nucleated erythrocytes in Blood by Automated counOrdered By: Natali Child on 12-25-2022 WBC corrected for nucl RBC Auto (Bld) [#/Vol] 4.8 10*3/uL 3.8-11.6 [facility] MCH Auto (RBC) [Entitic mass ]Ordered By: Natali Child on 12-25-2022 MCH (RBC) [Entitic mass] 35.7 pg 24.7-34.3 [facility] MCHC Auto (RBC) [Mass/Vol]Or dered By: Natali Child on 12-25-2022 MCHC (RBC) [Mass/Vol] 35.7 g/dL 32.0-35.0 [facility] MCV Auto (RBC) [Entitic vol] Ordered By: Natali Child on 12-25-2022 MCV (RBC) [Entitic vol] 100.0 fL 80-100 [facility] Platelet mean volume Auto (B ld) [Entitic vol]Ordered By: Natali Child on 12-25-2022 Platelet mean volume (Bld) [Entitic vol] 9.7 fL 6.3-10.7 [facility] Platelets Auto (Bld) [#/Vol] Ordered By: Natali Child on 12-25-2022 Platelets (Bld) [#/Vol] 147 10*3/uL 150-450 [facility] RBC Auto (Bld) [#/Vol]Ordere d By: Natali Child on 12-25-2022 RBC (Bld) [#/Vol] 2.08 10*6/uL 3.60-5.00 [facility] Type and Screenon 12-25-2022 ABO and Rh group Nom (Bld) Blood group A Rh(D) positive Normal [facility] Comment on above: Order Comment: Trans fuse now? Y Number of units to transfuse now? 2 Result Comment: PERF ORMED BY: [facility] [address] [place] [address] PATHOLOGIST ENTRY TABLE OPERATOR JESSE GARZA M.D. CBC W Auto Differential pane l (Bld)on 12-24-2022 Basophils (Bld) [#/Vol] 10*3/uL Normal <0.11 [facility] Comment on above: Order Comment: Speci men Type: BLOOD SPECIMENOrdering Facility: [facility] Address: [address] [place] [address] Performed By: #### 5 7021-8 ####[facility] LABCLIA [id number] [place] [address] Basophils/100 WBC (Bld) 0.4 % Normal [facility] Comment on above: Order Comment: Speci men Type: BLOOD SPECIMENOrdering Facility: [facility] Address: [address] [place] [address] Performed By: #### 5 7021-8 ####[facility] LABCLIA [id number] [place] [address] Differential cell count method Nom (Bld) Auto Normal [facility] Comment on above: Order Comment: Speci men Type: BLOOD SPECIMENOrdering Facility: [facility] Address: [address] [place] [address] Performed By: #### 5 7021-8 ####[facility] LABCLIA [id number] [place] [address] Eosinophils (Bld) [#/Vol] 0.34 10*3/uL Normal <0.46 [facility] Comment on above: Order Comment: Speci men Type: BLOOD SPECIMENOrdering Facility: [facility] Address: [address] [place] [address] Performed By: #### 5 7021-8 ####[facility] LABCLIA [id number] [place] [address] Eosinophils/100 WBC (Bld) 6.3 % Normal [facility] Comment on above: Order Comment: Speci men Type: BLOOD SPECIMENOrdering Facility: [facility] Address: [address] [place] [address] Performed By: #### 5 7021-8 ####[facility] LABCLIA [id number] [place] [address] Erythrocyte distribution width (RBC) [Ratio] 14.5 % Normal 11.5-15.0 [facility] Comment on above: Order Comment: Speci men Type: BLOOD SPECIMENOrdering Facility: [facility] Address: [address] [place] [address] Performed By: #### 5 7021-8 ####[facility] LABCLIA [id number] [place] [address] Hematocrit (Bld) [Volume fraction] 20.3 % Low 36.0-46.0 [facility] Comment on above: Order Comment: Speci men Type: BLOOD SPECIMENOrdering Facility: [facility] Address: [address] [place] [address] Performed By: #### 5 7021-8 ####[facility] LABCLIA [id number] [place] [address] Hemoglobin (Bld) [Mass/Vol] 6.8 g/dL Low 11.5-15.5 [facility] Comment on above: Order Comment: Speci men Type: BLOOD SPECIMENOrdering Facility: [facility] Address: [address] [place] [address] Performed By: #### 5 7021-8 ####[facility] LABCLIA [id number] [place] [address] Immature granulocytes (Bld) [#/Vol] 0.04 10*3/uL Normal <0.10 [facility] Comment on above: Order Comment: Speci men Type: BLOOD SPECIMENOrdering Facility: [facility] Address: [address] [place] [address] Performed By: #### 5 7021-8 ####[facility] LABCLIA [id number] [place] [address] Immature granulocytes/100 WBC (Bld) 0.7 % Normal [facility] Comment on above: Order Comment: Speci men Type: BLOOD SPECIMENOrdering Facility: [facility] Address: [address] [place] [address] Performed By: #### 5 7021-8 ####[facility] LABCLIA [id number] [place] [address] Lymphocytes (Bld) [#/Vol] 0.80 10*3/uL Low 1.00-4.00 [facility] Comment on above: Order Comment: Speci men Type: BLOOD SPECIMENOrdering Facility: [facility] Address: [address] [place] [address] Performed By: #### 5 7021-8 ####[facility] LABCLIA [id number] [place] [address] Lymphocytes/100 WBC (Bld) 14.9 % Normal [facility] Comment on above: Order Comment: Speci men Type: BLOOD SPECIMENOrdering Facility: [facility] Address: [address] [place] [address] Performed By: #### 5 7021-8 ####[facility] LABCLIA [id number] [place] [address] MCH (RBC) [Entitic mass] 34.2 pg High 26.0-34.0 [facility] Comment on above: Order Comment: Speci men Type: BLOOD SPECIMENOrdering Facility: [facility] Address: [address] [place] [address] Performed By: #### 5 7021-8 ####[facility] LABCLIA [id number] [place] [address] MCHC (RBC) [Mass/Vol] 33.5 g/dL Normal 30.5-36.0 [facility] Comment on above: Order Comment: Speci men Type: BLOOD SPECIMENOrdering Facility: [facility] Address: [address] [place] [address] Performed By: #### 5 7021-8 ####[facility] LABCLIA [id number] [place] [address] MCV (RBC) [Entitic vol] 102.0 fL High 80.0-100.0 [facility] Comment on above: Order Comment: Speci men Type: BLOOD SPECIMENOrdering Facility: [facility] Address: [address] [place] [address] Performed By: #### 5 7021-8 ####[facility] LABCLIA [id number] [place] [address] Monocytes (Bld) [#/Vol] 0.65 10*3/uL Normal <0.87 [facility] Comment on above: Order Comment: Speci men Type: BLOOD SPECIMENOrdering Facility: [facility] Address: [address] [place] [address] Performed By: #### 5 7021-8 ####[facility] LABCLIA [id number] [place] [address] Monocytes/100 WBC (Bld) 12.1 % Normal [facility] Comment on above: Order Comment: Speci men Type: BLOOD SPECIMENOrdering Facility: [facility] Address: [address] [place] [address] Performed By: #### 5 7021-8 ####[facility] LABCLIA [id number] [place] [address] Neutrophils (Bld) [#/Vol] 3.53 10*3/uL Normal 1.45-7.50 [facility] Comment on above: Order Comment: Speci men Type: BLOOD SPECIMENOrdering Facility: [facility] Address: [address] [place] [address] Performed By: #### 5 7021-8 ####[facility] LABCLIA [id number] [place] [address] Neutrophils/100 WBC (Bld) 65.6 % Normal [facility] Comment on above: Order Comment: Speci men Type: BLOOD SPECIMENOrdering Facility: [facility] Address: [address] [place] [address] Performed By: #### 5 7021-8 ####[facility] LABCLIA [id number] [place] [address] Nucleated RBC (Bld) [#/Vol] 10*3/uL Normal <0.01 [facility] Comment on above: Order Comment: Speci men Type: BLOOD SPECIMENOrdering Facility: [facility] Address: [address] [place] [address] Performed By: #### 5 7021-8 ####[facility] LABCLIA [id number] [place] [address] Nucleated RBC/100 WBC (Bld) [Ratio] 0.0 /100 WBC Normal [facility] Comment on above: Order Comment: Speci men Type: BLOOD SPECIMENOrdering Facility: [facility] Address: [address] [place] [address] Performed By: #### 5 7021-8 ####[facility] LABCLIA [id number] [place] [address] Platelet mean volume (Bld) [Entitic vol] 10.0 fL Normal 9.0-12.7 [facility] Comment on above: Order Comment: Speci men Type: BLOOD SPECIMENOrdering Facility: [facility] Address: [address] [place] [address] Performed By: #### 5 7021-8 ####[facility] LABCLIA [id number] [place] [address] Platelets (Bld) [#/Vol] 146 10*3/uL Low 150-400 [facility] Comment on above: Order Comment: Speci men Type: BLOOD SPECIMENOrdering Facility: [facility] Address: [address] [place] [address] Performed By: #### 5 7021-8 ####[facility] LABCLIA [id number] [place] [address] RBC (Bld) [#/Vol] 1.99 10*6/uL Low 3.90-5.20 [facility] Comment on above: Order Comment: Speci men Type: BLOOD SPECIMENOrdering Facility: [facility] Address: [address] [place] [address] Performed By: #### 5 7021-8 ####[facility] LABCLIA [id number] [place] [address] WBC (Bld) [#/Vol] 5.38 10*3/uL Normal 3.70-11.00 [facility] Comment on above: Order Comment: Speci men Type: BLOOD SPECIMENOrdering Facility: [facility] Address: [address] [place] [address] Performed By: #### 5 7021-8 ####[facility] LABIA [id number] [place] [address] CNOVSPon 12-24-2022 CNOVSP Normal [facility] CNPNon 12-24-2022 CNPN Normal [facility] Comprehensive metabolic 2000 panelon 12-24-2022 Albumin [Mass/Vol] 3.3 g/dL Low 3.9-4.9 [facility] Comment on above: Order Comment: Speci men Type: BLOOD SPECIMENOrdering Facility: [facility] Address: [address] [place] [address] Performed By: #### 2 4323-8 ####[facility] LABCLIA [id number] [place] [address] ALP [Catalytic activity/Vol] 72 U/L Normal 34-123 [facility] Comment on above: Order Comment: Speci men Type: BLOOD SPECIMENOrdering Facility: [facility] Address: [address] [place] [address] Performed By: #### 2 4323-8 ####[facility] LABCLIA [id number] [place] [address] ALT [Catalytic activity/Vol] 21 U/L Normal 7-38 [facility] Comment on above: Order Comment: Speci men Type: BLOOD SPECIMENOrdering Facility: [facility] Address: [address] [place] [address] Performed By: #### 2 4323-8 ####[facility] LABCLIA [id number] [place] [address] Anion gap [Moles/Vol] 14 mmol/L Normal 9-18 [facility] Comment on above: Order Comment: Speci men Type: BLOOD SPECIMENOrdering Facility: [facility] Address: [address] [place] [address] Performed By: #### 2 4323-8 ####[facility] LABCLIA [id number] [place] [address] AST [Catalytic activity/Vol] 21 U/L Normal 13-35 [facility] Comment on above: Order Comment: Speci men Type: BLOOD SPECIMENOrdering Facility: [facility] Address: [address] [place] [address] Performed By: #### 2 4323-8 ####[facility] LABCLIA [id number] [place] [address] Bilirubin [Mass/Vol] 0.3 mg/dL Normal 0.2-1.3 [facility] Comment on above: Order Comment: Speci men Type: BLOOD SPECIMENOrdering Facility: [facility] Address: [address] [place] [address] Performed By: #### 2 4323-8 ####[facility] LABCLIA [id number] [place] [address] Calcium [Mass/Vol] 10.1 mg/dL Normal 8.5-10.2 [facility] Comment on above: Order Comment: Speci men Type: BLOOD SPECIMENOrdering Facility: [facility] Address: [address] [place] [address] Performed By: #### 2 4323-8 ####[facility] LABCLIA [id number] [place] [address] Chloride [Moles/Vol] 98 mmol/L Normal 97-105 [facility] Comment on above: Order Comment: Speci men Type: BLOOD SPECIMENOrdering Facility: [facility] Address: [address] [place] [address] Performed By: #### 2 4323-8 ####[facility] LABCLIA [id number] [place] [address] CO2 [Moles/Vol] 28 mmol/L Normal 22-30 [facility] Comment on above: Order Comment: Speci men Type: BLOOD SPECIMENOrdering Facility: [facility] Address: [address] [place] [address] Performed By: #### 2 4323-8 ####[facility] LABCLIA [id number] [place] [address] Creatinine [Mass/Vol] 18.46 mg/dL High 0.58-0.96 [facility] Comment on above: Order Comment: Speci men Type: BLOOD SPECIMENOrdering Facility: [facility] Address: [address] [place] [address] Performed By: #### 2 4323-8 ####[facility] LABCLIA [id number] [place] [address] Creatinine and Glomerular filtration rate.predicted panel (S/P/Bld) 2 mL/min/1.73m??? Low >=60 [facility] Comment on above: Order Comment: Speci men Type: BLOOD SPECIMENOrdering Facility: [facility] Address: [address] [place] [address] Result Comment: Rylee mated Glomerular Filtration Rate (eGFR) is calculated using the 2020 CKD-EPI creatinine equation. This equation utilizes serum creatinine, sex, and age as parameters. The creatinine assay has traceable calibration to isotope dilution-mass spectrometry. Refer to KDIGO guidelines for clinical interpretation. In patients with unstable renal function, e.g. those with acute kidney injury, the eGFR may not accurately reflect actual GFR. Performed By: #### 2 4323-8 ####[facility] LABCLIA [id number] [place] [address] Glucose [Mass/Vol] 122 mg/dL High 74-99 [facility] Comment on above: Order Comment: Speci men Type: BLOOD SPECIMENOrdering Facility: [facility] Address: [address] [place] [address] Result Comment: The [place] Diabetes Association (ADA) provides guidance for cutoff values for fasting glucose and random glucose. The ADA defines fasting as no caloric intake for at least 8 hours. Fasting plasma glucose results between 100 to 125 mg/dL indicate increased risk for diabetes (prediabetes).Fasting plasma glucose results greater than or equal to 126 mg/dL meet the criteria for diagnosis of diabetes. In the absence of unequivocal hyperglycemia, results should be confirmed by repeat testing. In a patient with classic symptoms of hyperglycemia or hyperglycemic crisis, random plasma glucose results greater than or equal to 200 mg/dL meet the criteria for diagnosis of diabetes.Reference: Standards of Medical Care in Diabetes 2016, [place] [employer]. Diabetes Care. 2016.39(Suppl 1). Performed By: #### 2 4323-8 ####[facility] LABCLIA [id number] [place] [address] Potassium [Moles/Vol] 2.7 mmol/L Low 3.7-5.1 [facility] Comment on above: Order Comment: Speci men Type: BLOOD SPECIMENOrdering Facility: [facility] Address: [address] [place] [address] Performed By: #### 2 4323-8 ####[facility] LABCLIA [id number] [place] [address] Protein [Mass/Vol] 5.2 g/dL Low 6.3-8.0 [facility] Comment on above: Order Comment: Speci men Type: BLOOD SPECIMENOrdering Facility: [facility] Address: [address] [place] [address] Performed By: #### 2 4323-8 ####[facility] LABCLIA [id number] [place] [address] Sodium [Moles/Vol] 140 mmol/L Normal 136-144 [facility] Comment on above: Order Comment: Speci men Type: BLOOD SPECIMENOrdering Facility: [facility] Address: [address] [place] [address] Performed By: #### 2 4323-8 ####[facility] LABCLIA [id number] [place] [address] Urea nitrogen [Mass/Vol] 46 mg/dL High 7-21 [facility] Comment on above: Order Comment: Speci men Type: BLOOD SPECIMENOrdering Facility: [facility] Address: [address] [place] [address] Performed By: #### 2 4323-8 ####[facility] LABCLIA [id number] [place] [address] ANES POSTPROC EVALon 023 ANES POSTPROC EVAL Normal [facility] ANES PRE-OPon 12-22-2022 ANES PRE-OP Normal [facility] EGD DIAGNOSTICon 12-22-2022 [facility] NURSING PROGon 12-22-2022 NURSING PROG Normal [facility] NURSING PROG Normal [facility] SURGICAL PATHOLOGYon 023 CASE REPORT Normal [facility] Comment on above: Order Comment: Speci men Type: TISSUE SPECIMENOrdering Facility: [facility] Address: [address] [place] [address] Result Comment: Surg [facility] Pathology Report Case: [id number] Provider: Deidra Villegas MD Collected: 12/22/2022 01:24 PMOrdering Location: Gastroenterology Received: 12/22/2022 05:01 PMPathologist: Sherri Riggs MDSpecimens: A) - DUODENUM BIOPSY B) - STOMACH BIOPSY C) - ESOPHAGUS BIOPSY, r/o EOE Performed By: #### S ####[facility] LABCLIA [id number] [place] [address] [place] FINAL DIAGNOSIS Normal [facility] Comment on above: Order Comment: Speci men Type: TISSUE SPECIMENOrdering Facility: [facility] Address: [address] [place] [address] Result Comment: A. D uodenum, biopsy:- Duodenal mucosa with no significant pathologic change.B. Stomach, biopsy:- Gastric antral and mixed antral/oxyntic-type mucosa with lamina propria histiocytes with intracellular crystalline material, morphologically consistent with lanthanum.- No intestinal metaplasia or Helicobacter pylori organisms.C. Esophagus, biopsy:- Focal mild active esophagitis. Performed By: #### S ####[facility] LABCLIA [id number] [address] STATES OF [facility] FINAL PERFORMING LAB Normal [facility] Comment on above: Order Comment: Speci men Type: TISSUE SPECIMENOrdering Facility: [facility] Address: [address] [place] [address] Result Comment: Diag nostic interpretation performed at [facility], [address] [place] [address] CLIA# [id number] Director: Deep Marks M.D. Performed By: #### S ####[facility] LABCLIA [id number] [address] GROSS DESCRIPTION Normal [facility] Comment on above: Order Comment: Speci men Type: TISSUE SPECIMENOrdering Facility: [facility] Address: [address] [place] [address] Result Comment: A. D UODENUM BIOPSYReceived in formalin is one piece of shankar, soft tissue measuring 0.3 x 0.2 x 0.1 cm. Totally submitted in one cassette.B. STOMACH BIOPSYReceived in formalin are two pieces of shankar, soft tissue aggregating to 1.2 x 0.2 x 0.1 cm. Totally submitted in one cassette.C. ESOPHAGUS BIOPSYReceived in formalin are two pieces of shankar-white, soft tissue aggregating to 0.7 x 0.1 x 0.1 cm. Totally submitted in one cassette.Gross examination performed at [facility], [facility] [place], [place] [address]FFS 12/22/2022 10:25 PM Performed By: #### S ####[facility] LABCLIA [id number] [place] [address] [place] Upper GI endoscopyon 023 Upper GI endoscopy Normal [facility] CNCOon 12-21-2022 CNCO Letter Text Normal [facility] CNPNon 12-21-2022 CNPN Normal [facility] CNPNon 12-15-2022 CNPN Normal [facility] BLOOD TB SCREENon 12-11-2022 M. tuberculosis tuberculin stim IFN-g Ql (Bld) Negative Normal [facility] Comment on above: Order Comment: Speci men Type: BLOOD SPECIMENOrdering Facility: [facility] Address: [address] [place] [address] Performed By: #### I NFTBP ####[facility] LABCLIA [id number] [place] [address] [place] MITOGEN MINUS NIL 5.70 IU/mL Normal >=0.50 [facility] Comment on above: Order Comment: Speci men Type: BLOOD SPECIMENOrdering Facility: [facility] Address: [address] [place] [address] Performed By: #### I NFTBP ####[facility] LABIA [id number] [place] [address] [place] TB GAMMA INTERPRETATION Normal [facility] Comment on above: Order Comment: Speci men Type: BLOOD SPECIMENOrdering Facility: [facility] Address: [address] [place] [address] Performed By: #### I NFTBP ####[facility] LABCLIA [id number] [address] [place] TB NIL 1.09 IU/mL Normal <=8.00 [facility] Comment on above: Order Comment: Speci men Type: BLOOD SPECIMENOrdering Facility: [facility] Address: [address] [address] Performed By: #### I NFTBP ####[facility] LABCLIA [id number] [address] OF [facility] TB1 AG MINUS NIL <0.00 Normal <0.35 [facility] Comment on above: Order Comment: Speci men Type: BLOOD SPECIMENOrdering Facility: [facility] Address: [address] [place] [address] Performed By: #### I NFTBP ####[facility] LABCLIA [id number] [address] TB2 AG MINUS NIL <0.00 Normal <0.35 [facility] Comment on above: Order Comment: Speci men Type: BLOOD SPECIMENOrdering Facility: [facility] Address: [address] [place] [address] Performed By: #### I NFTBP ####[facility] LABCLIA [id number] [address] [facility] CBC W Auto Differential pane l (Bld)on 12-11-2022 Basophils (Bld) [#/Vol] 0.03 10*3/uL Normal <0.11 [facility] Comment on above: Order Comment: Speci men Type: BLOOD SPECIMENOrdering Facility: [facility] Address: [address] [place] [address] Performed By: #### 5 7021-8 ####[facility] LABCLIA [id number] [place] [id number] Basophils/100 WBC (Bld) 0.4 % Normal [facility] Comment on above: Order Comment: Speci men Type: BLOOD SPECIMENOrdering Facility: [facility] Address: [address] [place] [address] Performed By: #### 5 7021-8 ####[facility] LABCLIA [id number] [place] [address] Differential cell count method Nom (Bld) Auto Normal [facility] Comment on above: Order Comment: Speci men Type: BLOOD SPECIMENOrdering Facility: [facility] Address: [address] [address] Performed By: #### 5 7021-8 ####[facility] LABCLIA [id number] [place] [address] Eosinophils (Bld) [#/Vol] 0.32 10*3/uL Normal <0.46 [facility] Comment on above: Order Comment: Speci men Type: BLOOD SPECIMENOrdering Facility: [facility] Address: [address] [address] Performed By: #### 5 7021-8 ####[facility] LABCLIA [id number] [place] [address] Eosinophils/100 WBC (Bld) 4.6 % Normal [facility] Comment on above: Order Comment: Speci men Type: BLOOD SPECIMENOrdering Facility: [facility] Address: [address] [place] [address] Performed By: #### 5 7021-8 ####[facility] LABCLIA [id number] [place] [address] Erythrocyte distribution width (RBC) [Ratio] 15.5 % High 11.5-15.0 [facility] Comment on above: Order Comment: Speci men Type: BLOOD SPECIMENOrdering Facility: [facility] Address: [address] [place] [address] Performed By: #### 5 7021-8 ####[facility] LABCLIA [id number] [place] [address] Hematocrit (Bld) [Volume fraction] 24.5 % Low 36.0-46.0 [facility] Comment on above: Order Comment: Speci men Type: BLOOD SPECIMENOrdering Facility: [facility] Address: [address] [place] [address] Performed By: #### 5 7021-8 ####[facility] LABCLIA [id number] [place] [address] Hemoglobin (Bld) [Mass/Vol] 8.1 g/dL Low 11.5-15.5 [facility] Comment on above: Order Comment: Speci men Type: BLOOD SPECIMENOrdering Facility: [facility] Address: [address] [place] [address] Performed By: #### 5 7021-8 ####[facility] LABCLIA [id number] [place] [address] Immature granulocytes (Bld) [#/Vol] 0.05 10*3/uL Normal <0.10 [facility] Comment on above: Order Comment: Speci men Type: BLOOD SPECIMENOrdering Facility: [facility] Address: [address] [place] [address] Performed By: #### 5 7021-8 ####[facility] LABCLIA [id number] [place] [address] Immature granulocytes/100 WBC (Bld) 0.7 % Normal [facility] Comment on above: Order Comment: Speci men Type: BLOOD SPECIMENOrdering Facility: [facility] Address: [address] [place] [address] Performed By: #### 5 7021-8 ####[facility] LABCLIA [id number] [place] [address] Lymphocytes (Bld) [#/Vol] 0.70 10*3/uL Low 1.00-4.00 [facility] Comment on above: Order Comment: Speci men Type: BLOOD SPECIMENOrdering Facility: [facility] Address: [address] [place] [address] Performed By: #### 5 7021-8 ####[facility] LABCLIA [id number] [place] [address] Lymphocytes/100 WBC (Bld) 10.1 % Normal [facility] Comment on above: Order Comment: Speci men Type: BLOOD SPECIMENOrdering Facility: [facility] Address: [address] [address] Performed By: #### 5 7021-8 ####[facility] LABCLIA [id number] [place] [address] MCH (RBC) [Entitic mass] 34.6 pg High 26.0-34.0 [facility] Comment on above: Order Comment: Speci men Type: BLOOD SPECIMENOrdering Facility: [facility] Address: [address] [place] [address] Performed By: #### 5 7021-8 ####[facility] LABIA [id number] [place] [address] MCHC (RBC) [Mass/Vol] 33.1 g/dL Normal 30.5-36.0 [facility] Comment on above: Order Comment: Speci men Type: BLOOD SPECIMENOrdering Facility: [facility] Address: [address] [place] [address] Performed By: #### 5 7021-8 ####[facility] LABIA [id number] [place] [address] MCV (RBC) [Entitic vol] 104.7 fL High 80.0-100.0 [facility] Comment on above: Order Comment: Speci men Type: BLOOD SPECIMENOrdering Facility: [facility] Address: [address] [place] [address] Performed By: #### 5 7021-8 ####[facility] LABIA [id number] [place] [address] Monocytes (Bld) [#/Vol] 0.71 10*3/uL Normal <0.87 [facility] Comment on above: Order Comment: Speci men Type: BLOOD SPECIMENOrdering Facility: [facility] Address: [address] [place] [address] Performed By: #### 5 7021-8 ####[facility] LABCLIA [id number] [place] [address] Monocytes/100 WBC (Bld) 10.2 % Normal [facility] Comment on above: Order Comment: Speci men Type: BLOOD SPECIMENOrdering Facility: [facility] Address: [address] [place] [address] Performed By: #### 5 7021-8 ####[facility] LABCLIA [id number] [place] [address] Neutrophils (Bld) [#/Vol] 5.13 10*3/uL Normal 1.45-7.50 [facility] Comment on above: Order Comment: Speci men Type: BLOOD SPECIMENOrdering Facility: [facility] Address: [address] [place] [address] Performed By: #### 5 7021-8 ####[facility] LABCLIA [id number] [place] [address] Neutrophils/100 WBC (Bld) 74.0 % Normal [facility] Comment on above: Order Comment: Speci men Type: BLOOD SPECIMENOrdering Facility: [facility] Address: [address] [place] [address] Performed By: #### 5 7021-8 ####[facility] LABCLIA [id number] [place] [address] Nucleated RBC (Bld) [#/Vol] 10*3/uL Normal <0.01 [facility] Comment on above: Order Comment: Speci men Type: BLOOD SPECIMENOrdering Facility: [facility] Address: [address] [place] [address] Performed By: #### 5 7021-8 ####[facility] LABCLIA [id number] [place] [address] Nucleated RBC/100 WBC (Bld) [Ratio] 0.0 /100 WBC Normal [facility] Comment on above: Order Comment: Speci men Type: BLOOD SPECIMENOrdering Facility: [facility] Address: [address] [place] [address] Performed By: #### 5 7021-8 ####[facility] LABCLIA [id number] [place] [address] Platelet mean volume (Bld) [Entitic vol] 11.2 fL Normal 9.0-12.7 [facility] Comment on above: Order Comment: Speci men Type: BLOOD SPECIMENOrdering Facility: [facility] Address: [address] [place] [address] Performed By: #### 5 7021-8 ####[facility] LABCLIA [id number] [place] [address] Platelets (Bld) [#/Vol] 211 10*3/uL Normal 150-400 [facility] Comment on above: Order Comment: Speci men Type: BLOOD SPECIMENOrdering Facility: [facility] Address: [address] [place] [address] Performed By: #### 5 7021-8 ####[facility] LABCLIA [id number] [place] [address] RBC (Bld) [#/Vol] 2.34 10*6/uL Low 3.90-5.20 [facility] Comment on above: Order Comment: Speci men Type: BLOOD SPECIMENOrdering Facility: [facility] Address: [address] [place] [address] Performed By: #### 5 7021-8 ####[facility] LABIA [id number] [place] [address] WBC (Bld) [#/Vol] 6.94 10*3/uL Normal 3.70-11.00 [facility] Comment on above: Order Comment: Speci men Type: BLOOD SPECIMENOrdering Facility: [facility] Address: [address] [place] [address] Performed By: #### 5 7021-8 ####[facility] LABCLIA [id number] [place] [address] CMV IgG Qnon 12-11-2022 CMV IGG QUAL Negative Normal Negative [facility] Comment on above: Order Comment: Speci men Type: BLOOD SPECIMENOrdering Facility: [facility] Address: [address] [place] [address] Result Comment: No s erological evidence of past exposure to Cytomegalovirus. Cannot exclude recent infection if the specimen collected within 4-6 weeks after infection. Performed By: #### 7 852-7, VZVG2 ####[facility] LABCLIA [id number] [place] [address] [place] CMV IgG SerPl-aCncon 023 CMV IgG Qn <0.20 Normal [facility] Comment on above: Order Comment: Speci men Type: BLOOD SPECIMENOrdering Facility: [facility] Address: [address] [place] [address] Result Comment: The magnitude of the measured result is not indicative of the amount of antibody present.U/mL values are interpreted as follows:Negative <0.6Equivocal 0.6 to <0.70Positive >=0.70 Performed By: #### 7 852-7, VZVG2 ####[facility] LABCLIA [id number] [place] [address] [place] HBV core Ab Ser Qlon 023 HBV core Ab Ql (S) Negative Normal Negative [facility] Comment on above: Order Comment: Speci paula Type: BLOOD SPECIMENOrdering Facility: [facility] Address: [address] [place] [address] Result Comment: No e vidence of current or past infection with Hepatitis B virus. Should recent infection be suspected, repeat testing may be considered 3-4 weeks after this draw. Performed By: #### 5 195-3, 94545-4, 81802-9, 12385-8 ####[facility] LABCLIA [id number] [place] [address] [place] HBV surface Ab Ql (S)on 11-14 HBV surface Ab Qn (S) <8.00 Normal [facility] Comment on above: Order Comment: Speci men Type: BLOOD SPECIMENOrdering Facility: [facility] Address: [address] [place] [address] Result Comment: <8 m IU/mL: No serological evidence of immunity to Hepatitis B Virus.>/= 8 to <12 mIU/mL: No serological evidence of immunity to Hepatitis B Virus.>/= 12 mIU/mL: Consistent with serological evidence of immunity to Hepatitis B Virus. Performed By: #### 5 195-3, 88496-8, 46498-1, 97600-0 ####[facility] LABIA [id number] [address] [place] HBV surface Ab Ser Qlon 11-14 HBV surface Ab Ql (S) Negative Normal [facility] Comment on above: Order Comment: Speci men Type: BLOOD SPECIMENOrdering Facility: [facility] Address: [address] [place] [address] Result Comment: No s erological evidence of immunity to Hepatitis B Virus. Performed By: #### 5 195-3, 02819-0, 01744-0, 85173-0 ####[facility] LABIA [id number] [address] [place] HBV surface Ag Ser Qlon 11-14 HBV surface Ag Ql (S) Negative Normal Negative [facility] Comment on above: Order Comment: Speci men Type: BLOOD SPECIMENOrdering Facility: [facility] Address: [address] [place] [address] Performed By: #### 5 195-3, 97783-8, 15578-2, 91781-8 ####[facility] LABIA [id number] [address] [facility] HCV Ab Ser Qlon 12-11-2022 HCV Ab Ql (S) Negative Normal Negative [facility] Comment on above: Order Comment: Speci men Type: BLOOD SPECIMENOrdering Facility: [facility] Address: [address] [place] [address] Result Comment: The result suggests no evidence of active infection with Hepatitis C virus. Should recent infection be suspected, repeat testing may be considered 4-6 weeks after this draw. Performed By: #### 1 6128-1 ####[facility] LABCLIA [id number] [place] [address] [place] HCV RNA SerPl KAUSHAL+probe-aCnc on 12-11-2022 HCV RNA KAUSHAL+probe Qn Not detected Normal HCV RNA not detected by PCR. [facility] Comment on above: Order Comment: Speci men Type: BLOOD SPECIMENOrdering Facility: [facility] Address: [address] [place] [address] Performed By: #### 1 1011-4 ####[facility] LABIA [id number] [place] [address] [place] HIV 1+2 Ab IA Qlon 3 HIV 1 and 2 Ab IA.rapid Nom Normal [facility] Comment on above: Order Comment: Speci men Type: BLOOD SPECIMENOrdering Facility: [facility] Address: [address] [place] [address] Result Comment: Test not indicated. Performed By: #### 5 195-3, 00478-3, 66516-6, 53872-1 ####[facility] LABIA [id number] [place] [address] [place] HIV 1+2 Ab+HIV1 p24 Ag IA Ql Non-Reactive Normal Nonreactive [facility] Comment on above: Order Comment: Speci men Type: BLOOD SPECIMENOrdering Facility: [facility] Address: [address] [place], [place] [address] Performed By: #### 5 195-3, 94702-5, 28196-6, 13516-7 ####[facility] LABCLIA [id number] [place] [address] [place] HIV immunoassay testing algorithm interpretation (S/P/Bld) [Interp] Normal [facility] Comment on above: Order Comment: Speci men Type: BLOOD SPECIMENOrdering Facility: [facility] Address: [address] [place] [address] Result Comment: No e vidence of HIV-1 or HIV-2 infection. Should recent infection be suspected, repeat testing may be considered 2-3 weeks after this draw.[place] Rev. Code 3701.243(E): This information has been disclosed to you from confidential records protected from disclosure by state law. ???You shall make no further disclosure of this information without the specific, written, and informed release of the individual to whom it pertains or as otherwise permitted by state law. A general authorization for the release of medical or other information is not sufficient for the purpose of the release of HIV test results or diagnoses. Performed By: #### 5 195-3, 10341-4, 59700-4, 55166-3 ####[facility] LABCLIA [id number] [place] [address] [place] KID K/P PANC REC HLA AB SCRN on 12-11-2022 ALLOGEN RESULTS TO FOLLOW See Allogen report to follow Normal [facility] Comment on above: Order Comment: Speci men Type: BLOOD SPECIMENOrdering Facility: [facility] Address: [address] [place] [address] Performed By: #### K PRHAS ####[facility] [id number] [address] [place] Reagin and Treponema pallidu m IgG and IgM [Interp]on 12-11-2022 T. pallidum IgG+IgM IA Ql (S) Non-Reactive Normal Nonreactive [facility] Comment on above: Order Comment: Speci men Type: BLOOD SPECIMENOrdering Facility: [facility] Address: [address] [place] [address] Performed By: #### 7 3752-8 ####[facility] LABCLIA [id number] [address] [place] Reagin+T pallidum IgG+IgM Se rPl-Impon 12-11-2022 Reagin and Treponema pallidum IgG and IgM [Interp] Cannot exclude recent Treponemal infection if specimen collected within 7-10 days after appearance of suspect lesions or 2-3 weeks after an exposure. Clinical correlation is required. Normal [facility] Comment on above: Order Comment: Speci paula Type: BLOOD SPECIMENOrdering Facility: [facility] Address: [address] [place] [address] Performed By: #### 7 3752-8 ####[facility] LABIA [id number] [place] [address] [place] VARICELLA ZOSTER IGGon 12-11 VARICELLA ZOSTER IGG, QUAL Positive Normal Positive [facility] Comment on above: Order Comment: Speci [facility] Type: BLOOD SPECIMENOrdering Facility: [facility] Address: [address] [place] [address] Result Comment: The result suggests recent or past exposure to Varicella-Zoster virus or chickenpox vaccination or zoster vaccination. Positive result may also be seen due to presence of passively-transferred antibodies. Please correlate with patient's history. Performed By: #### 7 852-7, VZVG2 ####[facility] LABIA [id number] [place] [address] [place] CBC W Auto Differential pane l (Bld)on 12-03-2022 Basophils (Bld) [#/Vol] 10*3/uL Normal <0.11 [facility] Comment on above: Order Comment: Speci men Type: BLOOD SPECIMENOrdering Facility: [facility] Address: [address] [place] [address] Performed By: #### 5 7021-8 ####[facility] LABIA [id number] [address] [place] Basophils/100 WBC (Bld) 0.3 % Normal [facility] Comment on above: Order Comment: Speci [facility] Type: BLOOD SPECIMENOrdering Facility: [facility] Address: [address] [place] [address] Performed By: #### 5 7021-8 ####[facility] LABCLIA [id number] [place] [address] [place] Differential cell count method Nom (Bld) Auto Normal [facility] Comment on above: Order Comment: Speci men Type: BLOOD SPECIMENOrdering Facility: [facility] Address: [address] [place], [place] [address] Performed By: #### 5 7021-8 ####[facility] LABCLIA [id number] [place] [address] [place] Eosinophils (Bld) [#/Vol] 0.28 10*3/uL Normal <0.46 [facility] Comment on above: Order Comment: Speci men Type: BLOOD SPECIMENOrdering Facility: [facility] Address: [address] [place], [place] [address] Performed By: #### 5 7021-8 ####[facility] LABIA [id number] [place] [address] [place] Eosinophils/100 WBC (Bld) 4.6 % Normal [facility] Comment on above: Order Comment: Speci men Type: BLOOD SPECIMENOrdering Facility: [facility] Address: [address] [place], [place] [address] Performed By: #### 5 7021-8 ####[facility] LABCLIA [id number] [place] [address] [place] Erythrocyte distribution width (RBC) [Ratio] 15.0 % Normal 11.5-15.0 [facility] Comment on above: Order Comment: Speci men Type: BLOOD SPECIMENOrdering Facility: [facility] Address: [address] [place], [place] [address] Performed By: #### 5 7021-8 ####[facility] LABCLIA [id number] [place] [address] [place] Hematocrit (Bld) [Volume fraction] 25.0 % Low 36.0-46.0 [facility] Comment on above: Order Comment: Speci men Type: BLOOD SPECIMENOrdering Facility: [facility] Address: [address] [place] [address] Performed By: #### 5 7021-8 ####[facility] LABCLIA [id number] [place] [address] [place] Hemoglobin (Bld) [Mass/Vol] 8.1 g/dL Low 11.5-15.5 [facility] Comment on above: Order Comment: Speci men Type: BLOOD SPECIMENOrdering Facility: [facility] Address: [address] [place] [address] Performed By: #### 5 7021-8 ####[facility] LABCLIA [id number] [place] [address] [place] Immature granulocytes (Bld) [#/Vol] 0.07 10*3/uL Normal <0.10 [facility] Comment on above: Order Comment: Speci men Type: BLOOD SPECIMENOrdering Facility: [facility] Address: [address] [place], [place] [address] Performed By: #### 5 7021-8 ####[facility] LABCLIA [id number] [place] [address] [place] Immature granulocytes/100 WBC (Bld) 1.1 % Normal [facility] Comment on above: Order Comment: Speci men Type: BLOOD SPECIMENOrdering Facility: [facility] Address: [address] [place], [place] [address] Performed By: #### 5 7021-8 ####[facility] LABCLIA [id number] [place] [address] [place] Lymphocytes (Bld) [#/Vol] 0.64 10*3/uL Low 1.00-4.00 [facility] Comment on above: Order Comment: Speci men Type: BLOOD SPECIMENOrdering Facility: [facility] Address: [address] Performed By: #### 5 7021-8 ####[facility] LABIA [id number] [address] [place] [facility] Lymphocytes/100 WBC (Bld) 10.5 % Normal [facility] Comment on above: Order Comment: Speci men Type: BLOOD SPECIMENOrdering Facility: [facility] Address: [address] [place], [place] [address] Performed By: #### 5 7021-8 ####[facility] LABIA [id number] [place] [address] [place] MCH (RBC) [Entitic mass] 35.8 pg High 26.0-34.0 [facility] Comment on above: Order Comment: Speci men Type: BLOOD SPECIMENOrdering Facility: [facility] Address: [address] [place], [place] [address] Performed By: #### 5 7021-8 ####[facility] LABIA [id number] [place] [address] [place] MCHC (RBC) [Mass/Vol] 32.4 g/dL Normal 30.5-36.0 [facility] Comment on above: Order Comment: Speci men Type: BLOOD SPECIMENOrdering Facility: [facility] Address: [address] [place], [place] [address] Performed By: #### 5 7021-8 ####[facility] LABIA [id number] [place] [address] [place] MCV (RBC) [Entitic vol] 110.6 fL High 80.0-100.0 [facility] Comment on above: Order Comment: Speci men Type: BLOOD SPECIMENOrdering Facility: [facility] Address: [address] [place], [place] [address] Performed By: #### 5 7021-8 ####[facility] LABIA [id number] [place] [address] [place] Monocytes (Bld) [#/Vol] 0.50 10*3/uL Normal <0.87 [facility] Comment on above: Order Comment: Speci men Type: BLOOD SPECIMENOrdering Facility: [facility] Address: [address] [place] [address] Performed By: #### 5 7021-8 ####[facility] LABCLIA [id number] [place] [address] [place] Monocytes/100 WBC (Bld) 8.2 % Normal [facility] Comment on above: Order Comment: Speci men Type: BLOOD SPECIMENOrdering Facility: [facility] Address: [address] [place] [address] Performed By: #### 5 7021-8 ####[facility] LABCLIA [id number] [place] [address] [place] Neutrophils (Bld) [#/Vol] 4.58 10*3/uL Normal 1.45-7.50 [facility] Comment on above: Order Comment: Speci men Type: BLOOD SPECIMENOrdering Facility: [facility] Address: [address] [place], [place] [address] Performed By: #### 5 7021-8 ####[facility] LABCLIA [id number] [place] [address] [place] Neutrophils/100 WBC (Bld) 75.3 % Normal [facility] Comment on above: Order Comment: Speci men Type: BLOOD SPECIMENOrdering Facility: [facility] Address: [address] [place], [place] [address] Performed By: #### 5 7021-8 ####[facility] LABCLIA [id number] [place] [address] [place] Nucleated RBC (Bld) [#/Vol] 10*3/uL Normal <0.01 [facility] Comment on above: Order Comment: Speci men Type: BLOOD SPECIMENOrdering Facility: [facility] Address: [address] Performed By: #### 5 7021-8 ####[facility] [id number] [place] [address] [place] Nucleated RBC/100 WBC (Bld) [Ratio] 0.0 /100 WBC Normal [facility] Comment on above: Order Comment: Speci men Type: BLOOD SPECIMENOrdering Facility: [facility] Address: [address] Performed By: #### 5 7021-8 ####[facility] [id number] [place] [address] [place] Platelet mean volume (Bld) [Entitic vol] 10.5 fL Normal 9.0-12.7 [facility] Comment on above: Order Comment: Speci men Type: BLOOD SPECIMENOrdering Facility: [facility] Address: [address] Performed By: #### 5 7021-8 ####[facility] [id number] [place] [address] [place] Platelets (Bld) [#/Vol] 254 10*3/uL Normal 150-400 [facility] Comment on above: Order Comment: Speci men Type: BLOOD SPECIMENOrdering Facility: [facility] Address: [address] Performed By: #### 5 7021-8 ####[facility] LABRUT[facility] [facility] [id number] [place] [address] [place] RBC (Bld) [#/Vol] 2.26 10*6/uL Low 3.90-5.20 [facility] Comment on above: Order Comment: Speci men Type: BLOOD SPECIMENOrdering Facility: [facility] Address: [address] [place], [place] [address] Performed By: #### 5 7021-8 ####[facility] LABIA [id number] [place] [address] [place] WBC (Bld) [#/Vol] 6.09 10*3/uL Normal 3.70-11.00 [facility] Comment on above: Order Comment: Speci men Type: BLOOD SPECIMENOrdering Facility: [facility] Address: [address] [place], [place] [address] Performed By: #### 5 7021-8 ####[facility] LABIA [id number] [place] [address] [place] CNOVon 12-03-2022 CNOV Normal [facility] metabolic 2000 panelon 12-03-2022 Albumin [Mass/Vol] 3.2 g/dL Low 3.9-4.9 [facility] Comment on above: Order Comment: Speci men Type: BLOOD SPECIMENOrdering Facility: [facility] Address: [address] [place], [place] [address] Performed By: #### 2 4323-8, 82386-7 ####[facility] LABIA [id number] [place] [address] [place] ALP [Catalytic activity/Vol] 63 U/L Normal 34-123 [facility] Comment on above: Order Comment: Speci men Type: BLOOD SPECIMENOrdering Facility: [facility] Address: [address] Performed By: #### 2 4323-8, 37011-5 ####[facility] LABIA [id number] [place] [address] [place] ALT [Catalytic activity/Vol] 27 U/L Normal 7-38 [facility] Comment on above: Order Comment: Speci men Type: BLOOD SPECIMENOrdering Facility: [facility] Address: [address] Performed By: #### 2 4323-8, 84389-0 ####[facility] LABCLIA [id number] [place] [address] [place] Anion gap [Moles/Vol] 15 mmol/L Normal 9-18 [facility] Comment on above: Order Comment: Speci men Type: BLOOD SPECIMENOrdering Facility: [facility] Address: [address] [place] [address] Performed By: #### 2 4323-8, 55366-4 ####[facility] LABCLIA [id number] [place] [address] [place] AST [Catalytic activity/Vol] 39 U/L High 13-35 [facility] Comment on above: Order Comment: Speci men Type: BLOOD SPECIMENOrdering Facility: [facility] Address: [address] [place] [address] Performed By: #### 2 4323-8, 85467-4 ####[facility] LABCLIA [id number] [place] [address] [place] Bilirubin [Mass/Vol] 0.4 mg/dL Normal 0.2-1.3 [facility] Comment on above: Order Comment: Speci men Type: BLOOD SPECIMENOrdering Facility: [facility] Address: [address] [place] [address] Performed By: #### 2 4323-8, 06406-4 ####[facility] LABCLIA [id number] [place] [address] [place] Calcium [Mass/Vol] 9.5 mg/dL Normal 8.5-10.2 [facility] Comment on above: Order Comment: Speci men Type: BLOOD SPECIMENOrdering Facility: [facility] Address: [address] [place] [address] Performed By: #### 2 4323-8, 54349-8 ####[facility] LABCLIA [id number] [place] [address] [place] Chloride [Moles/Vol] 98 mmol/L Normal 97-105 [facility] Comment on above: Order Comment: Speci men Type: BLOOD SPECIMENOrdering Facility: [facility] Address: [address] [address] Performed By: #### 2 4323-8, 05593-8 ####[facility] LABCLIA [id number] [place] [address] [place] CO2 [Moles/Vol] 26 mmol/L Normal 22-30 [facility] Comment on above: Order Comment: Speci men Type: BLOOD SPECIMENOrdering Facility: [facility] Address: [address] [place] [address] Performed By: #### 2 4323-8, 11426-8 ####[facility] LABCLIA [id number] [place] [address] [place] Creatinine [Mass/Vol] 12.68 mg/dL High 0.58-0.96 [facility] Comment on above: Order Comment: Speci men Type: BLOOD SPECIMENOrdering Facility: [facility] Address: [address] [place] [address] Performed By: #### 2 4323-8, 00743-5 ####[facility] LABIA [id number] [address] STATES OF [facility] Creatinine and Glomerular filtration rate.predicted panel (S/P/Bld) 3 mL/min/1.73m??? Low >=60 [facility] Comment on above: Order Comment: Speci men Type: BLOOD SPECIMENOrdering Facility: [facility] Address: [address] [place] [address] Result Comment: Rylee mated Glomerular Filtration Rate (eGFR) is calculated using the 2020 CKD-EPI creatinine equation. This equation utilizes serum creatinine, sex, and age as parameters. The creatinine assay has traceable calibration to isotope dilution-mass spectrometry. Refer to KDIGO guidelines for clinical interpretation. In patients with unstable renal function, e.g. those with acute kidney injury, the eGFR may not accurately reflect actual GFR. Performed By: #### 2 4323-8, 15063-1 ####[facility] LABCLIA [id number] [place] [address] [place] Glucose [Mass/Vol] 115 mg/dL High 74-99 [facility] Comment on above: Order Comment: Speci men Type: BLOOD SPECIMENOrdering Facility: [facility] Address: [address] [place] [address] Result Comment: The [place] Diabetes Association (ADA) provides guidance for cutoff values for fasting glucose and random glucose. The ADA defines fasting as no caloric intake for at least 8 hours. Fasting plasma glucose results between 100 to 125 mg/dL indicate increased risk for diabetes (prediabetes).Fasting plasma glucose results greater than or equal to 126 mg/dL meet the criteria for diagnosis of diabetes. In the absence of unequivocal hyperglycemia, results should be confirmed by repeat testing. In a patient with classic symptoms of hyperglycemia or hyperglycemic crisis, random plasma glucose results greater than or equal to 200 mg/dL meet the criteria for diagnosis of diabetes.Reference: Standards of Medical Care in Diabetes 2016, [place] [employer]. Diabetes Care. 2016.39(Suppl 1). Performed By: #### 2 4323-8, 53923-4 ####[facility] LABIA [id number] [place] [address] [place] Potassium [Moles/Vol] 3.6 mmol/L Low 3.7-5.1 [facility] Comment on above: Order Comment: Speci men Type: BLOOD SPECIMENOrdering Facility: [facility] Address: [address] [id number] Performed By: #### 2 4323-8, 24926-3 ####[facility] LABIA [id number] [place] [address] [place] Protein [Mass/Vol] 5.7 g/dL Low 6.3-8.0 [facility] Comment on above: Order Comment: Speci men Type: BLOOD SPECIMENOrdering Facility: [facility] Address: [address] [id number] Performed By: #### 2 4323-8, 73303-3 ####[facility] LABCLIA [id number] [place] [address] [place] Sodium [Moles/Vol] 139 mmol/L Normal 136-144 [facility] Comment on above: Order Comment: Speci men Type: BLOOD SPECIMENOrdering Facility: [facility] Address: [address] [address] Performed By: #### 2 4323-8, 26787-5 ####[facility] LABCLIA [id number] [place] [address] [place] Urea nitrogen [Mass/Vol] 28 mg/dL High 7-21 [facility] Comment on above: Order Comment: Speci men Type: BLOOD SPECIMENOrdering Facility: [facility] Address: [address] [address] Performed By: #### 2 4323-8, 33451-1 ####[facility] LABCLIA [id number] [place] [address] [place] Lipid 1996 panelon 3 Cholesterol [Mass/Vol] 94 mg/dL <200 mg/dL [facility] Cholesterol in HDL [Mass/Vol] 33 mg/dL Low >39 mg/dL [facility] Cholesterol in LDL [Mass/Vol] 40 mg/dL <100 mg/dL [facility] Cholesterol in LDL/Cholesterol in HDL [Mass ratio] 1.21 {ratio} <2.54 [facility] Cholesterol in VLDL [Mass/Vol] 21 mg/dL <30 mg/dL [facility] Cholesterol non HDL [Mass/Vol] 61 mg/dL <130 mg/dL [facility] Cholesterol.total/C holesterol in HDL [Mass ratio] 2.85 {ratio} <5.10 [facility] Fasting Time 12 hrs [facility] Triglyceride [Mass/Vol] 106 mg/dL <150 mg/dL [facility] Cholesterol [Mass/Vol] 94 mg/dL Normal <200 [facility] Comment on above: Order Comment: Speci men Type: BLOOD SPECIMENOrdering Facility: [facility] Address: [address] [place] [address] Result Comment: <200 mg/dL, Desirable 200-239 mg/dL, Borderline high>239 mg/dL, High Performed By: #### 2 4323-8, 95537-7 ####[facility] LABCLIA [id number] [place] [address] [place] Cholesterol in HDL [Mass/Vol] 33 mg/dL Low >39 [facility] Comment on above: Order Comment: Speci men Type: BLOOD SPECIMENOrdering Facility: [facility] Address: [address] [place] [address] Result Comment: 40-5 9 mg/dL, Acceptable>59 mg/dL, High: Negative risk factor for coronary heart disease<40 mg/dL, Low: Positive risk factor for coronary heart disease Performed By: #### 2 4323-8, 78528-5 ####[facility] LABCLIA [id number] [address] [place] Cholesterol in LDL [Mass/Vol] 40 mg/dL Normal <100 [facility] Comment on above: Order Comment: Speci men Type: BLOOD SPECIMENOrdering Facility: [facility] Address: [address] [place] [address] Result Comment: <100 mg/dL, Optimal 100-129 mg/dL, Near optimal/above optimal 130-159 mg/dL, Borderline high 160-189 mg/dL, High>189 mg/dL, Very highSecondary prevention optimal LDL Cholesterol levels are recommended to be < 70 mg/dL Performed By: #### 2 4323-8, 18212-8 ####[facility] LABCLIA [id number] [address] [place] Cholesterol in LDL/Cholesterol in HDL [Mass ratio] 1.21 {ratio} Normal <2.54 [facility] Comment on above: Order Comment: Speci men Type: BLOOD SPECIMENOrdering Facility: [facility] Address: [address] [place] [address] Result Comment: Vincent sousa:1. National Cholesterol Education Program ATP III Guideline At-A-Glance Quick Desk Reference: National Heart, Lung, and Blood [place]. National Institutes of Health. 2001: NIH Publication No. 01-3305.2. An International Atherosclerosis Society position paper: global recommendations for the management of dyslipidemia: executive summary, Atherosclerosis. 2014: 232(2):410-413. Performed By: #### 2 4323-8, 09473-1 ####[facility] LABCLIA [id number] [place] [address] [place] Cholesterol in VLDL [Mass/Vol] 21 mg/dL Normal <30 [facility] Comment on above: Order Comment: Speci men Type: BLOOD SPECIMENOrdering Facility: [facility] Address: [address] [place] [address] Performed By: #### 2 4323-8, 26725-7 ####[facility] LABIA [id number] [address] [place] Cholesterol non HDL [Mass/Vol] 61 mg/dL Normal <130 [facility] Comment on above: Order Comment: Giselei paula Type: BLOOD SPECIMENOrdering Facility: [facility] Address: [address] [place] [address] Result Comment: <130 mg/dL, Optimal 130-159 mg/dL, Near optimal/above optimal 160-189 mg/dL, Borderline high 190-219 mg/dL, High>219 mg/dL, Very highSecondary prevention optimal non HDL Cholesterol levels are recommended to be <100 mg/dL Performed By: #### 2 4323-8, 83497-3 ####[facility] LABIA [id number] [address] [place] Cholesterol.total/C holesterol in HDL [Mass ratio] 2.85 {ratio} Normal <5.10 [facility] Comment on above: Order Comment: Giselei men Type: BLOOD SPECIMENOrdering Facility: [facility] Address: [address] [phone] Performed By: #### 2 4323-8, 62041-3 ####[facility] LABCLIA [id number] [place] [address] [place] FASTING TIME 12 hrs Normal [facility] Comment on above: Order Comment: Speci men Type: BLOOD SPECIMENOrdering Facility: [facility] Address: [address] [address] Performed By: #### 2 4323-8, 74263-7 ####[facility] LABCLIA [id number] [place] [address] [place] Triglyceride [Mass/Vol] 106 mg/dL Normal <150 [facility] Comment on above: Order Comment: Speci men Type: BLOOD SPECIMENOrdering Facility: [facility] Address: [address] [address] Result Comment: <150 mg/dL, Normal 150-199 mg/dL, Borderline high 200-499 mg/dL, High>499 mg/dL, Very high Performed By: #### 2 4323-8, 73610-5 ####[facility] LABCLIA [id number] [place] [address] [place] CNPNon 12-02-2022 CNPN Normal [facility] CNPNon 11-26-2022 CNPN Normal [facility] Bacteria Bld Culton 11-25-19 23 Bacteria identified Cx Nom (Bld) CULTURE, BLOOD: No growth 5 days Normal [facility] Comment on above: Performed By: #### 6 00-7 ####[facility] LABCLIA [id number] [place] [address] [place] C-REACTIVE PROTEIN (CRP)on 0 11-24-2022 CRP [Mass/Vol] 1.2 mg/dL High <0.9 mg/dL [facility] CBC W Auto Differential pane l (Bld)on 11-24-2022 Anisocytosis Ql (Bld) Present [facility] Basophils (Bld) [#/Vol] <0.11 k/uL [facility] Basophils/100 WBC (Bld) 0.5 % [facility] Dacrocytes LM Ql (Bld) Few [facility] Differential cell count method Nom (Bld) Auto [facility] Eosinophils (Bld) [#/Vol] 0.23 10*3/uL <0.46 k/uL [facility] Eosinophils/100 WBC (Bld) 5.8 % [facility] Erythrocyte distribution width (RBC) [Ratio] 15.0 % 11.5 - 15.0 % [facility] Hematocrit (Bld) [Volume fraction] 22.6 % Low 36.0 - 46.0 % [facility] Hemoglobin (Bld) [Mass/Vol] 7.3 g/dL Low 11.5 - 15.5 g/dL [facility] Immature granulocytes (Bld) [#/Vol] 0.03 10*3/uL <0.10 k/uL [facility] Immature granulocytes/100 WBC (Bld) 0.8 % [facility] Lymphocytes (Bld) [#/Vol] 0.39 10*3/uL Low 1.00 - 4.00 k/uL [facility] Lymphocytes/100 WBC (Bld) 9.8 % [facility] MCH (RBC) [Entitic mass] 36.3 pg High 26.0 - 34.0 pg [facility] MCHC (RBC) [Mass/Vol] 32.3 g/dL 30.5 - 36.0 g/dL [facility] MCV (RBC) [Entitic vol] 112.4 fL High 80.0 - 100.0 fL [facility] Monocytes (Bld) [#/Vol] 0.23 10*3/uL <0.87 k/uL [facility] Monocytes/100 WBC (Bld) 5.8 % [facility] Neutrophils (Bld) [#/Vol] 3.08 10*3/uL 1.45 - 7.50 k/uL [facility] Neutrophils/100 WBC (Bld) 77.3 % [facility] Nucleated RBC (Bld) [#/Vol] <0.01 k/uL [facility] Nucleated RBC/100 WBC (Bld) [Ratio] 0.0 /100 WBC [facility] Ovalocytes LM Ql (Bld) Few [facility] Platelet mean volume (Bld) [Entitic vol] 10.6 fL 9.0 - 12.7 fL [facility] Platelets (Bld) [#/Vol] 200 10*3/uL 150 - 400 k/uL [facility] Polychromasia LM Ql (Bld) Slight [facility] RBC (Bld) [#/Vol] 2.01 10*6/uL Low 3.90 - 5.2 0 m/uL [facility] Red Cell Morph Reviewed: see result s of individual morphologies [facility] WBC (Bld) [#/Vol] 3.98 10*3/uL 3.70 - 11. 00 k/uL [facility] Anisocytosis Ql (Bld) Present Normal [facility] Comment on above: Order Comment: Speci men Type: BLOOD SPECIMENOrdering Facility: [facility] Address: [address] [place] [address] Performed By: #### 1 4196-0, 28433-6 ####[facility] LABCLIA [id number] [place] [address] [place] Basophils (Bld) [#/Vol] 10*3/uL Normal <0.11 [facility] Comment on above: Order Comment: Speci men Type: BLOOD SPECIMENOrdering Facility: [facility] Address: [address] [place] [address] Performed By: #### 1 4196-0, 86166-1 ####[facility] LABCLIA [id number] [place] [address] [place] Basophils/100 WBC (Bld) 0.5 % Normal [facility] Comment on above: Order Comment: Speci men Type: BLOOD SPECIMENOrdering Facility: [facility] Address: [address] [place], [place] [address] Performed By: #### 1 4196-0, 58723-0 ####[facility] LABCLIA [id number] [place] [address] [place] Dacrocytes LM Ql (Bld) Few Normal [facility] Comment on above: Order Comment: Speci men Type: BLOOD SPECIMENOrdering Facility: [facility] Address: [address] Performed By: #### 1 4196-0, 63232-7 ####[facility] LABCLIA [id number] [address] [place] Differential cell count method Nom (Bld) Auto Normal [facility] Comment on above: Order Comment: Speci men Type: BLOOD SPECIMENOrdering Facility: [facility] Address: [address] Performed By: #### 1 4196-0, 94121-1 ####[facility] LABCLIA [id number] [place] [address] [place] Eosinophils (Bld) [#/Vol] 0.23 10*3/uL Normal <0.46 [facility] Comment on above: Order Comment: Speci men Type: BLOOD SPECIMENOrdering Facility: [facility] Address: [address] [place], [place] [address] Performed By: #### 1 4196-0, 76981-0 ####[facility] LABIA [id number] [address] [place] Eosinophils/100 WBC (Bld) 5.8 % Normal [facility] Comment on above: Order Comment: Speci men Type: BLOOD SPECIMENOrdering Facility: [facility] Address: [address] [place], [place] [address] Performed By: #### 1 4196-0, 25293-0 ####[facility] LABIA [id number] [place] [address] [place] Erythrocyte distribution width (RBC) [Ratio] 15.0 % Normal 11.5-15.0 [facility] Comment on above: Order Comment: Speci men Type: BLOOD SPECIMENOrdering Facility: [facility] Address: [address] [place], [place] [address] Performed By: #### 1 4196-0, ####[facility] LABCLIA [id number] [place] [address] [place] Hematocrit (Bld) [Volume fraction] 22.6 % Low 36.0-46.0 [facility] Comment on above: Order Comment: Speci men Type: BLOOD SPECIMENOrdering Facility: [facility] Address: [address] Performed By: #### 1 4196-0, ####[facility] LABIA [id number] [place] [address] [place] Hemoglobin (Bld) [Mass/Vol] 7.3 g/dL Low 11.5-15.5 [facility] Comment on above: Order Comment: Speci men Type: BLOOD SPECIMENOrdering Facility: [facility] Address: [address] [place], [place] [address] Performed By: #### 1 4196-0, ####[facility] LABIA [id number] [place] [address] [place] Immature granulocytes (Bld) [#/Vol] 0.03 10*3/uL Normal <0.10 [facility] Comment on above: Order Comment: Speci men Type: BLOOD SPECIMENOrdering Facility: [facility] Address: [address] Performed By: #### 1 4196-0, ####[facility] LABIA [id number] [place] [address] [place] Immature granulocytes/100 WBC (Bld) 0.8 % Normal [facility] Comment on above: Order Comment: Speci men Type: BLOOD SPECIMENOrdering Facility: [facility] Address: [address] Performed By: #### 1 4196-0, 93780-3 ####[facility] LABIA [id number] [place] [address] [place] Lymphocytes (Bld) [#/Vol] 0.39 10*3/uL Low 1.00-4.00 [facility] Comment on above: Order Comment: Speci men Type: BLOOD SPECIMENOrdering Facility: [facility] Address: [address] [place] [address] Performed By: #### 1 4196-0, 61901-2 ####[facility] LABIA [id number] [address] [place] Lymphocytes/100 WBC (Bld) 9.8 % Normal [facility] Comment on above: Order Comment: Speci men Type: BLOOD SPECIMENOrdering Facility: [facility] Address: [address] [place] [address] Performed By: #### 1 4196-0, 23232-7 ####[facility] LABIA [id number] [address] [place] OF [facility] MCH (RBC) [Entitic mass] 36.3 pg High 26.0-34.0 [facility] Comment on above: Order Comment: Speci men Type: BLOOD SPECIMENOrdering Facility: [facility] Address: [address] [place] [address] Performed By: #### 1 4196-0, 92311-7 ####[facility] LABIA [id number] [place] [address] [place] MCHC (RBC) [Mass/Vol] 32.3 g/dL Normal 30.5-36.0 [facility] Comment on above: Order Comment: Speci men Type: BLOOD SPECIMENOrdering Facility: [facility] Address: [address] [place], [place] [address] Performed By: #### 1 4196-0, 87863-5 ####[facility] LABIA [id number] [address] [place] MCV (RBC) [Entitic vol] 112.4 fL High 80.0-100.0 [facility] Comment on above: Order Comment: Speci men Type: BLOOD SPECIMENOrdering Facility: [facility] Address: [address] [place], [place] [address] Result Comment: Revi ewed Performed By: #### 1 4196-0, 88664-7 ####[facility] LABCLIA [id number] [place] [address] [place] Monocytes (Bld) [#/Vol] 0.23 10*3/uL Normal <0.87 [facility] Comment on above: Order Comment: Speci men Type: BLOOD SPECIMENOrdering Facility: [facility] Address: [address] [place], [place] [address] Performed By: #### 1 4196-0, 23695-9 ####[facility] LABCLIA [id number] [place] [address] [place] Monocytes/100 WBC (Bld) 5.8 % Normal [facility] Comment on above: Order Comment: Speci men Type: BLOOD SPECIMENOrdering Facility: [facility] Address: [address] [place], [place] [address] Performed By: #### 1 4196-0, 06436-7 ####[facility] LABCLIA [id number] [place] [address] [place] Neutrophils (Bld) [#/Vol] 3.08 10*3/uL Normal 1.45-7.50 [facility] Comment on above: Order Comment: Speci men Type: BLOOD SPECIMENOrdering Facility: [facility] Address: [address] [place], [place] [address] Performed By: #### 1 4196-0, 03717-7 ####[facility] LABCLIA [id number] [place] [address] [place] Neutrophils/100 WBC (Bld) 77.3 % Normal [facility] Comment on above: Order Comment: Speci men Type: BLOOD SPECIMENOrdering Facility: [facility] Address: [address] Performed By: #### 1 4196-0, 58837-2 ####[facility] LABCLIA [id number] [address] [place] Nucleated RBC (Bld) [#/Vol] 10*3/uL Normal <0.01 [facility] Comment on above: Order Comment: Speci men Type: BLOOD SPECIMENOrdering Facility: [facility] Address: [address] [place], [place] [address] Performed By: #### 1 4196-0, 78877-5 ####[facility] LABIA [id number] [place] [address] [place] Nucleated RBC/100 WBC (Bld) [Ratio] 0.0 /100 WBC Normal [facility] Comment on above: Order Comment: Speci men Type: BLOOD SPECIMENOrdering Facility: [facility] Address: [address] [place], [place] [address] Performed By: #### 1 4196-0, 49629-4 ####[facility] LABIA [id number] [place] [address] [place] Ovalocytes LM Ql (Bld) Few Normal [facility] Comment on above: Order Comment: Speci men Type: BLOOD SPECIMENOrdering Facility: [facility] Address: [address] [place] [address] Performed By: #### 1 4196-0, 47762-0 ####[facility] LABIA [id number] [place] [address] [place] Platelet mean volume (Bld) [Entitic vol] 10.6 fL Normal 9.0-12.7 [facility] Comment on above: Order Comment: Speci men Type: BLOOD SPECIMENOrdering Facility: [facility] Address: [address] [place], [place] [address] Performed By: #### 1 4196-0, 12070-3 ####[facility] LABCLIA [id number] [place] [address] [place] Platelets (Bld) [#/Vol] 200 10*3/uL Normal 150-400 [facility] Comment on above: Order Comment: Speci men Type: BLOOD SPECIMENOrdering Facility: [facility] Address: [address] [place], [place] [address] Performed By: #### 1 4196-0, 11502-9 ####[facility] LABIA [id number] [place] [address] [place] Polychromasia LM Ql (Bld) Slight Normal [facility] Comment on above: Order Comment: Speci men Type: BLOOD SPECIMENOrdering Facility: [facility] Address: [address] [place], [place] [address] Performed By: #### 1 4196-0, 25178-8 ####[facility] LABIA [id number] [place] [address] [place] RBC (Bld) [#/Vol] 2.01 10*6/uL Low 3.90-5.20 [facility] Comment on above: Order Comment: Speci men Type: BLOOD SPECIMENOrdering Facility: [facility] Address: [address] [place], [place] [address] Performed By: #### 1 4196-0, 43974-1 ####[facility] LABIA [id number] [address] [place] RED CELL MORPH Reviewed: see result s of individual morphologies Normal [facility] Comment on above: Order Comment: Speci men Type: BLOOD SPECIMENOrdering Facility: [facility] Address: [address] [place], [place] [address] Performed By: #### 1 4196-0, 29654-3 ####[facility] LABIA [id number] [place] [address] [place] WBC (Bld) [#/Vol] 3.98 10*3/uL Normal 3.70-11.00 [facility] Comment on above: Order Comment: Speci men Type: BLOOD SPECIMENOrdering Facility: [facility] Address: [address] [address] Performed By: #### 1 4196-0, 67399-8 ####[facility] LABCLIA [id number] [place] [address] [place] CNOVon 11-24-2022 CNOV Normal [facility] CRP SerPl-mCncon 11-24-2022 CRP [Mass/Vol] 1.2 mg/dL High <0.9 [facility] Comment on above: Order Comment: Speci men Type: BLOOD SPECIMENOrdering Facility: [facility] Address: [address] [place] [address] Performed By: #### 2 276-4, 62481-4, 1987-5, 76484-1 ####[facility] LABCLIA [id number] [place] [address] [place] Comprehensive metabolic 2000 panelon 11-24-2022 Albumin [Mass/Vol] 3.1 g/dL Low 3.9 - 4.9 g/dL [place] ALP [Catalytic activity/Vol] 53 U/L 34 - 123 U/L [facility] ALT [Catalytic activity/Vol] 20 U/L 7 - 38 U/L [facility] Anion gap [Moles/Vol] 15 mmol/L 9 - 18 mmol/L [facility] AST [Catalytic activity/Vol] 30 U/L 13 - 35 U/L [facility] Bilirubin [Mass/Vol] 0.4 mg/dL 0.2 - 1.3 mg/dL [facility] Calcium [Mass/Vol] 8.9 mg/dL 8.5 - 10. 2 mg/dL [facility] Chloride [Moles/Vol] 101 mmol/L 97 - 105 mmol/L [facility] CO2 [Moles/Vol] 25 mmol/L 22 - 30 mmol/L [facility] Creatinine [Mass/Vol] 13.70 mg/dL High 0.58 - 0.96 mg/dL [facility] Estimated Glomerular Filtration Rate 3 mL/min/1.73m Low >=60 mL/min/1.73m [facility] Glucose [Mass/Vol] 105 mg/dL High 74 - 99 mg/dL [facility] Potassium [Moles/Vol] 3.7 mmol/L 3.7 - 5.1 mmol/L [facility] Protein [Mass/Vol] 5.2 g/dL Low 6.3 - 8.0 g/dL [place] Sodium [Moles/Vol] 141 mmol/L 136 - 144 mmol/L [facility] Urea nitrogen [Mass/Vol] 30 mg/dL High 7 - 21 mg/dL [facility] Albumin [Mass/Vol] 3.1 g/dL Low 3.9-4.9 [facility] Comment on above: Order Comment: Speci men Type: BLOOD SPECIMENOrdering Facility: [facility] Address: [address] [place] [address] Performed By: #### 2 276-4, 16913-3, ####[facility] [id number] [place] [address] [place] ALP [Catalytic activity/Vol] 53 U/L Normal 34-123 [facility] Comment on above: Order Comment: Speci men Type: BLOOD SPECIMENOrdering Facility: [facility] Address: [address] [place] [address] Performed By: #### 2 276-4, 97283-7, ####[facility] LABIA [id number] [address] [place] ALT [Catalytic activity/Vol] 20 U/L Normal 7-38 [facility] Comment on above: Order Comment: Speci men Type: BLOOD SPECIMENOrdering Facility: [facility] Address: [address] [place] [address] Performed By: #### 2 276-4, 85880-6, ####[facility] LABCLIA [id number] [place] [address] [place] Anion gap [Moles/Vol] 15 mmol/L Normal 9-18 [facility] Comment on above: Order Comment: Speci men Type: BLOOD SPECIMENOrdering Facility: [facility] Address: [address] [place] [address] Performed By: #### 2 276-4, 65703-5, ####[facility] LABCLIA [id number] [place] [address] [place] AST [Catalytic activity/Vol] 30 U/L Normal 13-35 [facility] Comment on above: Order Comment: Speci men Type: BLOOD SPECIMENOrdering Facility: [facility] Address: [address] [place] [address] Performed By: #### 2 276-4, 26023-0, ####[facility] LABIA [id number] [place] [address] [place] Bilirubin [Mass/Vol] 0.4 mg/dL Normal 0.2-1.3 [facility] Comment on above: Order Comment: Speci men Type: BLOOD SPECIMENOrdering Facility: [facility] Address: [address] [place], [place] [address] Performed By: #### 2 276-4, 88101-6, ####[facility] LABCLIA [id number] [address] [address] [place] Calcium [Mass/Vol] 8.9 mg/dL Normal 8.5-10.2 [facility] Comment on above: Order Comment: Speci men Type: BLOOD SPECIMENOrdering Facility: [facility] Address: [address] [place] [address] Performed By: #### 2 276-4, 08997-3, ####[facility] LABCLIA [id number] [place] [address] [place] Chloride [Moles/Vol] 101 mmol/L Normal 97-105 [facility] Comment on above: Order Comment: Speci men Type: BLOOD SPECIMENOrdering Facility: [facility] Address: [address] [place] [address] Performed By: #### 2 276-4, 67047-6, 1987-07, ####[facility] LABIA [id number] [place] [id number] [place] CO2 [Moles/Vol] 25 mmol/L Normal 22-30 [facility] Comment on above: Order Comment: Speci men Type: BLOOD SPECIMENOrdering Facility: [facility] Address: [address] [place] [address] Performed By: #### 2 276-4, 37294-6, 1987-07, ####[facility] LABIA [id number] [address] [place] [id number] [place] Creatinine [Mass/Vol] 13.70 mg/dL High 0.58-0.96 [facility] Comment on above: Order Comment: Speci men Type: BLOOD SPECIMENOrdering Facility: [facility] Address: [address] [place] [address] Performed By: #### 2 276-4, 98784-4, ####[facility] LABIA [id number] [address] [id number] [place] Creatinine and Glomerular filtration rate.predicted panel (S/P/Bld) 3 mL/min/1.73m??? Low >=60 [facility] Comment on above: Order Comment: Speci men Type: BLOOD SPECIMENOrdering Facility: [facility] Address: [address] [place] [address] Result Comment: Rylee mated Glomerular Filtration Rate (eGFR) is calculated using the 2021 CKD-EPI creatinine equation. This equation utilizes serum creatinine, sex, and age as parameters. The creatinine assay has traceable calibration to isotope dilution-mass spectrometry. Refer to KDIGO guidelines for clinical interpretation. In patients with unstable renal function, e.g. those with acute kidney injury, the eGFR may not accurately reflect actual GFR. Performed By: #### 2 276-4, 56333-9, ####[facility] LABCLIA [id number] [place] [id number] [place] Glucose [Mass/Vol] 105 mg/dL High 74-99 [facility] Comment on above: Order Comment: Speci men Type: BLOOD SPECIMENOrdering Facility: [facility] Address: [address] [id number] Result Comment: The [place] Diabetes Association (ADA) provides guidance for cutoff values for fasting glucose and random glucose. The ADA defines fasting as no caloric intake for at least 8 hours. Fasting plasma glucose results between 100 to 125 mg/dL indicate increased risk for diabetes (prediabetes).Fasting plasma glucose results greater than or equal to 126 mg/dL meet the criteria for diagnosis of diabetes. In the absence of unequivocal hyperglycemia, results should be confirmed by repeat testing. In a patient with classic symptoms of hyperglycemia or hyperglycemic crisis, random plasma glucose results greater than or equal to 200 mg/dL meet the criteria for diagnosis of diabetes.Reference: Standards of Medical Care in Diabetes 2016, [place] Diabetes Association. Diabetes Care. 2016.39(Suppl 1). Performed By: #### 2 276-4, , ####[facility] LABCLIA [id number] [place] [id number] [place] Potassium [Moles/Vol] 3.7 mmol/L Normal 3.7-5.1 [facility] Comment on above: Order Comment: Isaiah mitchell Type: BLOOD SPECIMENOrdering Facility: [facility] Address: [address] [place] [address] Performed By: #### 2 276-4, 51465-6, ####[facility] LABCLIA [id number] [place] [address] [place] Protein [Mass/Vol] 5.2 g/dL Low 6.3-8.0 [facility] Comment on above: Order Comment: Speci men Type: BLOOD SPECIMENOrdering Facility: [facility] Address: [address] [place] [address] Performed By: #### 2 276-4, 20668-5, 1987-07, ####[facility] LABCLIA [id number] [place] [address] [place] Sodium [Moles/Vol] 141 mmol/L Normal 136-144 [facility] Comment on above: Order Comment: Speci men Type: BLOOD SPECIMENOrdering Facility: [facility] Address: [address] [place] [address] Performed By: #### 2 276-4, 03185-9, 1987-07, ####[facility] LABIA [id number] [place] [address] [place] Urea nitrogen [Mass/Vol] 30 mg/dL High 7-21 [facility] Comment on above: Order Comment: Speci men Type: BLOOD SPECIMENOrdering Facility: [facility] Address: [address] [place] [address] Performed By: #### 2 276-4, 59748-3, ####[facility] LABIA [id number] [address] [id number] [place] FERRITIN BLDon 11-24-2022 Ferritin [Mass/Vol] 724.0 ng/mL High 14.7 - 2 05.1 ng/mL [facility] FOLATE SERUMon 11-24-2022 Folate [Mass/Vol] >4.7 ng/mL [facility] Ferritin SerPl-mCncon 2022 Ferritin [Mass/Vol] 724.0 ng/mL High 14.7-205.1 [facility] Comment on above: Order Comment: Speci men Type: BLOOD SPECIMENOrdering Facility: [facility] Address: [address] [address] Performed By: #### 2 276-4, 40786-7, 1988-5, 29841-8 ####[facility] LABCLIA [id number] [place] [address] [place] [facility] Folate [Mass/Vol] ng/mL Normal >4.7 [facility] Comment on above: Order Comment: [facility] Type: BLOOD SPECIMENOrdering Facility: [facility] Address: [address] [place], [place] [address] Result Comment: A re sult of > 20 ng/mL is not necessarily indicative of a pathologic or treatable condition: it reflects a limitation of the test methodology.Assay reference range: 4.8 to 24.2 ng/mL. Suitable for detection of folate deficiency.Reference:Folate III (Folate III) [package insert V 1.0 German]. [facility], [place], [place]: January 2015. Performed By: #### 4 542-7, 2532-0, 2131-9, 2283-8 ####[facility] LABCLIA [id number] [place] [id number] [place] Haptoglob SerPl-ncon 11-24 Haptoglobin [Mass/Vol] 320 mg/dL High 31-238 [facility] Comment on above: Order Comment: Speci [facility] Type: BLOOD SPECIMENOrdering Facility: [facility] Address: [address] [place], [place] [phone] Performed By: #### 4 542-7, 2532-0, 2131-9, 8 ####[facility] LABCLIA [id number] [place] [id number] [place] Iron and Iron binding capaci panelon 11-24-2022 Iron [Mass/Vol] 32 ug/dL Low 41 - 186 ug/dL [facility] Iron binding capacity [Mass/Vol] 132 ug/dL Low 232 - 386 ug/dL [facility] Iron/TIBC [Molar ratio] 24.2 % 15.0 - 57.0 % [facility] Iron [Mass/Vol] 32 ug/dL Low 41-186 [facility] Comment on above: Order Comment: Speci men Type: BLOOD SPECIMENOrdering Facility: [facility] Address: [address] [place], [place] [phone] Performed By: #### 2 276-4, 61601-6, ####[facility] LABIA [id number] [address] [id number] [place] Iron binding capacity [Mass/Vol] 132 ug/dL Low 232-386 [facility] Comment on above: Order Comment: Speci men Type: BLOOD SPECIMENOrdering Facility: [facility] Address: [address] [place], [place] [address] Performed By: #### 2 276-4, 31916-2, ####[facility] LABIA [id number] [place] [address] [place] Iron/TIBC [Molar ratio] 24.2 % Normal 15.0-57.0 [facility] Comment on above: Order Comment: Speci men Type: BLOOD SPECIMENOrdering Facility: [facility] Address: [address] [place], [place] [phone] Performed By: #### 2 276-4, 05314-6, ####[facility] LABIA [id number] [place] [phone] [place] LDH SerPl-cCncon 11-24-2022 LDH [Catalytic activity/Vol] 326 U/L High 135-214 [facility] Comment on above: Order Comment: Speci men Type: BLOOD SPECIMENOrdering Facility: [facility] Address: [address] [place], [place] [phone] Performed By: #### 4 542-7, 2532-0, 2132-9, 2284-8 ####[facility] LABCLIA [id number] [place] [id number] [place] Retics #on 11-24-2022 Reticulocytes (Bld) [#/Vol] 0.20806 10*3/uL Normal 0.018-0.100 [facility] Comment on above: Order Comment: Speci men Type: BLOOD SPECIMENOrdering Facility: [facility] Address: [address] [place] [address] Performed By: #### 1 4196-0, ####[facility] LABIA [id number] [place] [address] [place] Reticulocytes (Bld) [#/Vol]o n 11-24-2022 Reticulocytes/100 RBC (Bld) 1.7 % Normal 0.4-2.0 [facility] Comment on above: Order Comment: Speci men Type: BLOOD SPECIMENOrdering Facility: [facility] Address: [address] [place], [place] [address] Performed By: #### 1 4196-0, ####[facility] [id number] [address] [place] VITAMIN B12 BLOODon 11-25-19 23 Cobalamin (Vitamin B12) [Mass/Vol] 750 pg/mL 232 - 1,245 pg/mL [facility] Vit B12 SerPl-mCncon 023 Cobalamin (Vitamin B12) [Mass/Vol] 750 pg/mL Normal 232-1245 [facility] Comment on above: Order Comment: Speci men Type: BLOOD SPECIMENOrdering Facility: [facility] Address: [address] [place], [place] [address] Performed By: #### 4 542-7, 2532-0, 2131-11, 2283-10 ####[facility] LABIA [id number] [place] [phone] [place] US venous duplex LE LTon US venous duplex LE LT [facility] [place] [address] Ultrasound Report Signed Patient: Mita Duarte MR#: [id number] : 1980 Acct:[id number] Age/Sex: 42 / F ADM Date: 09/03/22 Loc: ER Room: Type: [facility] ER Attending Dr: Ordering Provider: NELIA Lee Date of Service: 09/03/22 US/US venous duplex LE LT: redness swelling proximal L leg anterior aspect Copies to: NELIA Lee LEFT LOWER EXTREMITY VENOUS DUPLEX INDICATION: Left leg pain Unilateral left lower extremity venous duplex Doppler study was obtained utilizing B-mode, color- flow and spectral Doppler. FINDINGS: The left common femoral, femoral, and popliteal veins showed adequate compressibility, color-flow and augmentation. The left posterior tibial and peroneal veins were compressible, as well as proximal greater saphenous vein. The contralateral right common femoral vein was compressible with color-flow and augmentation. Superficial thrombophlebitis is noted in the left greater saphenous vein from the distal thigh to the proximal calf US/US venous duplex LE LT IMPRESSION: NO EVIDENCE OF DEEP VENOUS THROMBOSIS IN THE LEFT LOWER EXTREMITY. Superficial thrombophlebitis is noted in the greater saphenous vein as described above Impression dictated by: Fernando Sorensen M.D.09/04/2022 9:48 AM Dictation Location: [place] [address] Tech: Shellie Andre Transcribed By: JAKE 09/04/22947 Dictated By: Fernando Sorensen MD 09/04/22946 Signed By: 09/04/22947 Normal [facility] C-REACTIVE PROTEIN (CRP)on 0 08-27-2022 CRP [Mass/Vol] mg/dL NINF - 0.9 mg/dL [facility] CRP [Mass/Vol]on 08-27-2022 Interpretation and review of laboratory results Normal [facility] CBC W Auto Differential pane l (Bld)on 08-26-2022 Basophils (Bld) [#/Vol] 0.08 10*3/uL [facility] Basophils/100 WBC (Bld) 0.7 % [facility] Differential cell count method Nom (Bld) Auto [facility] Eosinophils (Bld) [#/Vol] 0.48 10*3/uL High [facility] Eosinophils/100 WBC (Bld) 4.1 % [facility] Erythrocyte distribution width (RBC) [Ratio] 14.5 % 11.5 - 15.0 % [facility] Hematocrit (Bld) [Volume fraction] 33.7 % Low 36.0 - 46.0 % [facility] Hemoglobin (Bld) [Mass/Vol] 11.4 g/dL Low 11.5 - 15.5 g/dL [facility] Immature granulocytes (Bld) [#/Vol] 0.22 10*3/uL High [facility] Immature granulocytes/100 WBC (Bld) 1.9 % [facility] Interpretation and review of laboratory results Abnormal [facility] Lymphocytes (Bld) [#/Vol] 1.31 10*3/uL [facility] Lymphocytes/100 WBC (Bld) 11.3 % [facility] MCH (RBC) [Entitic mass] 34.3 pg High 26.0 - 34.0 pg [facility] MCHC (RBC) [Mass/Vol] 33.8 g/dL 30.5 - 36.0 g/dL [facility] MCV (RBC) [Entitic vol] 101.5 fL High 80.0 - 100.0 fL [facility] Monocytes (Bld) [#/Vol] 0.77 10*3/uL [facility] Monocytes/100 WBC (Bld) 6.6 % [facility] Neutrophils (Bld) [#/Vol] 8.72 10*3/uL High [facility] Neutrophils/100 WBC (Bld) 75.4 % [facility] Nucleated RBC (Bld) [#/Vol] [facility] Nucleated RBC/100 WBC (Bld) [Ratio] 0.0 % /100 WBC [facility] Platelet mean volume (Bld) [Entitic vol] 9.9 fL 9.0 - 12.7 fL [facility] Platelets (Bld) [#/Vol] 248 10*3/uL [facility] RBC (Bld) [#/Vol] 3.32 10*6/uL Low 3.90 - 5.2 0 m/uL [facility] WBC (Bld) [#/Vol] 11.58 10*3/uL [facility] Comprehensive metabolic 2000 panelOrdered By: Yvonne Richardson on 08-26-2022 Albumin [Mass/Vol] 4.3 g/dL 3.9 - 4.9 g/dL Cl [facility] ALP [Catalytic activity/Vol] 62 U/L 34 - 123 U/L [facility] ALT [Catalytic activity/Vol] 10 U/L 7 - 38 U/L [facility] Anion gap [Moles/Vol] 14 mmol/L 9 - 18 mmol/L [facility] AST [Catalytic activity/Vol] 19 U/L 13 - 35 U/L [facility] Bilirubin [Mass/Vol] 0.5 mg/dL 0.2 - 1.3 mg/dL [facility] Calcium [Mass/Vol] 10.1 mg/dL 8.5 - 10. 2 mg/dL [facility] Chloride [Moles/Vol] 98 mmol/L 97 - 105 mmol/L [facility] CO2 [Moles/Vol] 26 mmol/L 22 - 30 mmol/L [facility] Creatinine [Mass/Vol] 12.40 mg/dL High 0.58 - 0.96 mg/dL [facility] GFR/1.73 sq M.predicted among non-blacks MDRD (S/P/Bld) [Vol rate/Area] 4 mL/min/{1.73_m2} Low - PINF [facility] Comment on above: Estimated Glomerular Filtration Rate (eGFR) is calculated using the 2020 CKD-EPI creatinine equation. This equation utilizes serum creatinine, sex, and age as parameters. The creatinine assay has traceable calibration to isotope dilution-mass spectrometry. Refer to KDIGO guidelines for clinical interpretation. In patients with unstable renal function, e.g. those with acute kidney injury, the eGFR may not accurately reflect actual GFR. Glucose [Mass/Vol] 106 mg/dL High 74 - 99 mg/dL [facility] Comment on above: The [place] Diabete s Association (ADA) provides guidance for cutoff values for fasting glucose and random glucose. The ADA defines fasting as no caloric intake for at least 8 hours. Fasting plasma glucose results between 100 to 125 mg/dL indicate increased risk for diabetes (prediabetes). Fasting plasma glucose results greater than or equal to 126 mg/dL meet the criteria for diagnosis of diabetes. In the absence of unequivocal hyperglycemia, results should be confirmed by repeat testing. In a patient with classic symptoms of hyperglycemia or hyperglycemic crisis, random plasma glucose results greater than or equal to 200 mg/dL meet the criteria for diagnosis of diabetes. Reference: Standards of Medical Care in Diabetes 2016, [place] [employer]. Diabetes Care. 2016.39(Suppl 1). Interpretation and review of laboratory results Abnormal [facility] Potassium [Moles/Vol] 4.5 mmol/L 3.7 - 5.1 mmol/L [facility] Protein [Mass/Vol] 6.5 g/dL 6.3 - 8.0 g/dL Cl [facility] Sodium [Moles/Vol] 138 mmol/L 136 - 144 mmol/L [facility] Urea nitrogen [Mass/Vol] 39 mg/dL High 7 - 21 mg/dL [facility] CBC AUTO DIFFon 05-31-2022 BASO # 0.0 103/ul Normal 0.0-0.1 [facility] Comment on above: Performed By: #### F ERR, FETIBC #### [facility] [address] [address] [address] Ceci Cali Basophils/100 WBC (Bld) 0.2 % Normal 0.2-2.0 [facility] Comment on above: Performed By: #### F ERR, FETIBC #### [facility] [address] [address] [address] Ceci Cali EO # 0.3 103/ul Normal 0.0-0.7 [facility] Comment on above: Performed By: #### F ERR, FETIBC #### [facility] [address] [address] [address] Ceci Cali Eosinophils/100 WBC (Bld) 3.4 % Normal 0.9-7.0 [facility] Comment on above: Performed By: #### F ERR, FETIBC #### [facility] [address] [address] [address] Ceci Cali Erythrocyte distribution width (RBC) [Ratio] 14.6 % Normal 11.0-15.0 [facility] Comment on above: Performed By: #### F ERR, FETIBC #### [facility] [address] [place] [address] Dr. Ceci Cali Hematocrit (Bld) [Volume fraction] 22.1 % Critically low 36.0-48.0 [facility] Comment on above: Performed By: #### F ERR, FETIBC #### [facility] [address] [place] [address] Dr. Ceci Cali Hemoglobin (Bld) [Mass/Vol] 7.3 g/dL Critically low 12.0-16.0 [facility] Comment on above: Performed By: #### F ERR, FETIBC #### [facility] [address] [place] [address] Dr. Ceci Cali IG # 0.08 10e3/ul Critically high 0.00-0.03 [facility] Comment on above: Performed By: #### F ERR, FETIBC #### [facility] [address] [place] [address] Dr. Ceci Cali IG % 0.9 % Critically high 0.0-0.5 [facility] Comment on above: Performed By: #### F ERR, FETIBC #### [facility] [address] [place] [address] Dr. Ceci Cali LYMPH # 1.2 103/ul Normal 1.2-3.8 [facility] Comment on above: Performed By: #### F ERR, FETIBC #### [facility] [address] [place] [address] Dr. Ceci Cali Lymphocytes/100 WBC (Bld) 13.9 % Critically low 20.5-60.0 [facility] Comment on above: Performed By: #### F ERR, FETIBC #### [facility] [address] [place] [address] Dr. Ceci Cali MANUAL DIFF REQ NO Normal [facility] Comment on above: Performed By: #### F ERR, FETIBC #### [facility] [address] [place] [address] Dr. Ceci Cali MCH (RBC) [Entitic mass] 31.9 pg Normal 26.7-34.0 [facility] Comment on above: Performed By: #### F ERR, FETIBC #### [facility] [address] [place] [address] Dr. Ceci Cali MCHC (RBC) [Mass/Vol] 33.0 g/dL Normal 29.9-35.2 [facility] Comment on above: Performed By: #### F ERR, FETIBC #### [facility] [address] [place] [address] Dr. Ceci Cali MCV (RBC) [Entitic vol] 96.5 fL Normal 81.0-99.0 [facility] Comment on above: Performed By: #### F ERR, FETIBC #### [facility] [address] [place] [address] Dr. Ceci Cali MONO # 0.7 103/ul Normal 0.3-0.8 [facility] Comment on above: Performed By: #### F ERR, FETIBC #### [facility] [address] [place] [address] Dr. Ceci Cali Monocytes/100 WBC (Bld) 7.8 % Normal 1.7-12.0 [facility] Comment on above: Performed By: #### F ERR, FETIBC #### [facility] [address] [place] [address] Dr. Ceci Cali NEUT # 6.6 103/ul Critically high 1.4-6.5 [facility] Comment on above: Performed By: #### F ERR, FETIBC #### [facility] [address] [place] [address] Dr. Ceci Cali Neutrophils/100 WBC (Bld) 73.8 % Normal 43.0-75.0 [facility] Comment on above: Performed By: #### F ERR, FETIBC #### [facility] [address] [place] [address] Dr. Ceci Cali Platelet mean volume (Bld) [Entitic vol] 10.1 fL Normal 9.5-13.5 [facility] Comment on above: Performed By: #### F ERR, FETIBC #### [facility] [address] [address] [address] Ceci Cali PLT 175 103/ul Normal 150-450 [facility] Comment on above: Performed By: #### F ERR, FETIBC #### [facility] [address] [address] [address] Ceci Cali RBC 2.29 106/ul Critically low 4.20-5.40 [facility] Comment on above: Performed By: #### F ERR, FETIBC #### [facility] [address] [address] [address] Ceci Cali WBC 8.9 103/ul Normal 4.0-11.0 [facility] Comment on above: Performed By: #### F ERR, FETIBC #### [facility] [address] [place] [address] Dr. Ceci Cali FERRITINon 05-31-2022 Ferritin [Mass/Vol] 442.0 ng/mL Critically high 6.2-137.0 [facility] Comment on above: Performed By: #### F ERR, FETIBC #### [facility] [address] [address] [address] Ceci Cali IRON AND TIBCon 05-31-2022 % SATURATION 95.6 % Normal [facility] Comment on above: Performed By: #### F ERR, FETIBC #### [facility] [address] [address] [address] Ceci Cali Iron [Mass/Vol] 109.0 ug/dL Normal 50.0-170.0 [facility] Comment on above: Performed By: #### F ERR, FETIBC #### [facility] [address] [address] [address] Ceci Cali TIBC DIRECT 114.0 ug/dL Critically low 250.0-450.0 [facility] Comment on above: Performed By: #### F ERR, FETIBC #### [facility] [address] [address] [address] Ceci Cali PROF 14(COMP METB)on 03-19-2 023 Albumin [Mass/Vol] 2.9 g/dL Critically low 3.4-5.0 [facility] Comment on above: Performed By: #### F ERR, FETIBC #### [facility] [address] [address] [address] Ceci Cali Albumin/Globulin [Mass ratio] 1.1 {ratio} Normal [facility] Comment on above: Performed By: #### F ERR, FETIBC #### [facility] [address] [address] [address] Ceci Cali ALP [Catalytic activity/Vol] 62 U/L Normal 46-116 [facility] Comment on above: Performed By: #### F ERR, FETIBC #### [facility] [address] [address] [address] Ceci Cali ALT [Catalytic activity/Vol] 17 U/L Normal 14-59 [facility] Comment on above: Performed By: #### F ERR, FETIBC #### [facility] [address] [address] [address] Ceci Cali Anion gap [Moles/Vol] 15.9 mmol/L Normal [facility] Comment on above: Performed By: #### F ERR, FETIBC #### [facility] [address] [address] [address] Ceci Cali AST [Catalytic activity/Vol] 19 U/L Normal 15-37 [facility] Comment on above: Performed By: #### F ERR, FETIBC #### [facility] [address] [address] [address] Ceci Cali Bilirubin [Mass/Vol] 0.4 mg/dL Normal 0.2-1.0 [facility] Comment on above: Performed By: #### F ERR, FETIBC #### [facility] [address] [address] [address] Ceci Cali Calcium [Mass/Vol] 8.4 mg/dL Critically low 8.5-10.1 [facility] Comment on above: Performed By: #### F ERR, FETIBC #### [facility] [address] [address] [address] Ceci Cali Chloride [Moles/Vol] 104 mmol/L Normal 98-107 [facility] Comment on above: Performed By: #### F ERR, FETIBC #### [facility] [address] [place] [address] Dr. Ceci Cali CO2 [Moles/Vol] 25.3 mmol/L Normal 21.0-32.0 [facility] Comment on above: Performed By: #### F ERR, FETIBC #### [facility] [address] [place] [address] Dr. Ceci Cali Creatinine [Mass/Vol] 11.05 mg/dL Critically high 0.55-1.02 [facility] Comment on above: Performed By: #### F ERR, FETIBC #### [facility] [address] [place] [address] Dr. Ceci Cali EGFR-AF LEBANESE 5 mL/min/1.73m2 Critically low >=60 [facility] Comment on above: Performed By: #### F ERR, FETIBC #### [facility] [address] [place] [address] Dr. Ceci Cali EGFR-NON AF LEBANESE 4 mL/min/1.73m2 Critically low >=60 [facility] Comment on above: Performed By: #### F ERR, FETIBC #### [facility] [address] [place] [address] Dr. Ceci Cali Globulin (S) [Mass/Vol] 2.7 g/dL Normal [facility] Comment on above: Performed By: #### F ERR, FETIBC #### [facility] [address] [place] [address] Dr. Ceci Cali Glucose [Mass/Vol] 95 mg/dL Normal 74-106 [facility] Comment on above: Performed By: #### F ERR, FETIBC #### [facility] [address] [place] [address] Dr. Ceci Cali Potassium [Moles/Vol] 3.2 mmol/L Critically low 3.5-5.1 [facility] Comment on above: Performed By: #### F ERR, FETIBC #### [facility] [address] [address] [address] Ceci Cali Protein [Mass/Vol] 5.6 g/dL Critically low 6.4-8.2 [facility] Comment on above: Performed By: #### F ERR, FETIBC #### [facility] [address] [address] [address] Ceci Cali Sodium [Moles/Vol] 142 mmol/L Normal 136-145 [facility] Comment on above: Performed By: #### F ERR, FETIBC #### [facility] [address] [place] [address] Dr. Ceci Cali Urea nitrogen [Mass/Vol] 53.0 mg/dL Critically high 7.0-18.0 [facility] Comment on above: Performed By: #### F ERR, FETIBC #### [facility] [address] [place] [address] Dr. Ceci Cali Urea nitrogen/Creatinine [Mass ratio] 4.8 mg/mg Normal [facility] Comment on above: Performed By: #### F ERR, FETIBC #### [facility] [address] [place] [address] Dr. [facility] mm/hr Critically high <=20 [facility] Comment on above: Performed By: #### P HVEN #### [facility] [address] [place] [address] Dr. Ceci Cali CBC AUTO DIFFon 05-30-2022 BASO # 0.0 103/ul Normal 0.0-0.1 [facility] Comment on above: Performed By: #### C BC ####[facility] [address] [place], [place] [address]Dr. Ceci Cali Basophils/100 WBC (Bld) 0.4 % Normal 0.2-2.0 [facility] Comment on above: Performed By: #### C BC ####[facility] [address] [address]Dr. Ceci Cali EO # 0.3 103/ul Normal 0.0-0.7 [facility] Comment on above: Performed By: #### C BC ####[facility] [address] [address]Dr. Ceci Cali Eosinophils/100 WBC (Bld) 3.9 % Normal 0.9-7.0 [facility] Comment on above: Performed By: #### C BC ####[facility] [address] [place], [place] [address]Dr. Ceci Cali Erythrocyte distribution width (RBC) [Ratio] 14.6 % Normal 11.0-15.0 [facility] Comment on above: Performed By: #### C BC ####[facility] [address] [place], [place] [address]Dr. Ceci Cali Hematocrit (Bld) [Volume fraction] 20.4 % Critically low 36.0-48.0 [facility] Comment on above: Performed By: #### C BC ####[facility] [address] [place], [place] [address]Dr. Ceci Cali Hemoglobin (Bld) [Mass/Vol] 7.0 g/dL Critically low 12.0-16.0 [facility] Comment on above: Performed By: #### C BC ####[facility] [address] [place], [place] [address]Dr. Ceci Cali IG # 0.13 10e3/ul Critically high 0.00-0.03 [facility] Comment on above: Performed By: #### C BC ####[facility] [address] [place], [place] [address]Dr. Ceci Cali IG % 1.6 % Critically high 0.0-0.5 [facility] Comment on above: Performed By: #### C BC ####[facility] [address] [place], [place] [address]Dr. Ceci Cali LYMPH # 1.2 103/ul Normal 1.2-3.8 [facility] Comment on above: Performed By: #### C BC ####[facility] [address] [place], [place] [address]DrAilyn Cali Lymphocytes/100 WBC (Bld) 14.7 % Critically low 20.5-60.0 [facility] Comment on above: Performed By: #### C BC ####[facility] [address] [address]DrAilyn Cali MANUAL DIFF REQ NO Normal [facility] Comment on above: Performed By: #### C BC ####[facility] [address] [address]DrAilyn Cali MCH (RBC) [Entitic mass] 33.0 pg Normal 26.7-34.0 [facility] Comment on above: Performed By: #### C BC ####[facility] [address] [place], [place] [address]DrAilyn Cali MCHC (RBC) [Mass/Vol] 34.3 g/dL Normal 29.9-35.2 [facility] Comment on above: Performed By: #### C BC ####[facility] [address] [place], [place] [address]DrAilyn Cali MCV (RBC) [Entitic vol] 96.2 fL Normal 81.0-99.0 [facility] Comment on above: Performed By: #### C BC ####[facility] [address] [place], [place] [address]DrAilyn Cali MONO # 0.9 103/ul Critically high 0.3-0.8 [facility] Comment on above: Performed By: #### C BC ####[facility] [address] [place], [place] [address]DrAilyn Cali Monocytes/100 WBC (Bld) 10.7 % Normal 1.7-12.0 [facility] Comment on above: Performed By: #### C BC ####[facility] [address] [place], [place] [address]DrAilyn Cali NEUT # 5.4 103/ul Normal 1.4-6.5 [facility] Comment on above: Performed By: #### C BC ####[facility] [address] [place], [place] [address]Dr. Ceci Cali Neutrophils/100 WBC (Bld) 68.7 % Normal 43.0-75.0 [facility] Comment on above: Performed By: #### C BC ####[facility] [address] [id number][address] Ceci Cali Platelet mean volume (Bld) [Entitic vol] 10.5 fL Normal 9.5-13.5 [facility] Comment on above: Performed By: #### C BC ####[facility] [address] [address]Dr. Ceci Cali PLT 160 103/ul Normal 150-450 [facility] Comment on above: Performed By: #### C BC ####[facility] [address] [address]Dr. Ceci Cali RBC 2.12 106/ul Critically low 4.20-5.40 [facility] Comment on above: Performed By: #### C BC ####[facility] [address] [id number]. Ceci Cali WBC 7.9 103/ul Normal 4.0-11.0 [facility] Comment on above: Performed By: #### C BC ####[facility] [address] [address]Dr. Ceci Cali PROF 14(COMP METB)on 023 Albumin [Mass/Vol] 2.9 g/dL Critically low 3.4-5.0 [facility] Comment on above: Performed By: #### C MP #### [facility] [address] [place] [address] Dr. Ceci Cali Albumin/Globulin [Mass ratio] 1.0 {ratio} Normal [facility] Comment on above: Performed By: #### C MP #### [facility] [address] [place] [address] Dr. Ceci Cali ALP [Catalytic activity/Vol] 61 U/L Normal 46-116 [facility] Comment on above: Performed By: #### C MP #### [facility] [address] [place] [address] Dr. Ceci Cali ALT [Catalytic activity/Vol] 15 U/L Normal 14-59 [facility] Comment on above: Performed By: #### C MP #### [facility] [address] [address] [address] Ceci Cali Anion gap [Moles/Vol] 15.0 mmol/L Normal [facility] Comment on above: Performed By: #### C MP #### [facility] [address] [address] [address] Ceci Cali AST [Catalytic activity/Vol] 19 U/L Normal 15-37 [facility] Comment on above: Performed By: #### C MP #### [facility] [address] [address] [address] Ceci Cali Bilirubin [Mass/Vol] 0.3 mg/dL Normal 0.2-1.0 [facility] Comment on above: Performed By: #### C MP #### [facility] [address] [address] [address] Ceci Cali Calcium [Mass/Vol] 7.9 mg/dL Critically low 8.5-10.1 [facility] Comment on above: Performed By: #### C MP #### [facility] [address] [place] [address] Dr. Ceci Cali Chloride [Moles/Vol] 103 mmol/L Normal 98-107 [facility] Comment on above: Performed By: #### C MP #### [facility] [address] [address] [address] Ceci Cali CO2 [Moles/Vol] 26.1 mmol/L Normal 21.0-32.0 [facility] Comment on above: Performed By: #### C MP #### [facility] [address] [address] [address] Ceci Cali Creatinine [Mass/Vol] 12.16 mg/dL Critically high 0.55-1.02 [facility] Comment on above: Performed By: #### C MP #### [facility] [address] [address] [address] Ceci Cali EGFR-AF LEBANESE 4 mL/min/1.73m2 Critically low >=60 [facility] Comment on above: Performed By: #### C MP #### [facility] [address] [address] [address] Ceci Cali EGFR-NON AF LEBANESE 3 mL/min/1.73m2 Critically low >=60 [facility] Comment on above: Performed By: #### C MP #### [facility] [address] [address] [address] Ceci Cali Globulin (S) [Mass/Vol] 2.8 g/dL Normal [facility] Comment on above: Performed By: #### C MP #### [facility] [address] [address] [address] Ceci Cali Glucose [Mass/Vol] 91 mg/dL Normal 74-106 [facility] Comment on above: Performed By: #### C MP #### [facility] [address] [address] [address] Ceci Cali Potassium [Moles/Vol] 3.1 mmol/L Critically low 3.5-5.1 [facility] Comment on above: Performed By: #### C MP #### [facility] [address] [address] [address] Ceci Cali Protein [Mass/Vol] 5.7 g/dL Critically low 6.4-8.2 [facility] Comment on above: Performed By: #### C MP #### [facility] [address] [address] [address] Ceci Cali Sodium [Moles/Vol] 141 mmol/L Normal 136-145 [facility] Comment on above: Performed By: #### C MP #### [facility] [address] [address] [address] Ceci Cali Urea nitrogen [Mass/Vol] 60.0 mg/dL Critically high 7.0-18.0 [facility] Comment on above: Performed By: #### C MP #### [facility] [address] [address] [address] Ceci Cali Urea nitrogen/Creatinine [Mass ratio] 4.9 mg/mg Normal [facility] Comment on above: Performed By: #### C MP #### [facility] [address] [address] [address] Ceci Cali SED RATE [facility] 2022 SED RATE 45 mm/hr Critically high <=20 [facility] Comment on above: Performed By: #### F ERR, FETIBC #### [facility] [address] [address] [address] Ceci Cali CBC AUTO DIFFon 05-29-2022 BASO # 0.0 103/ul Normal 0.0-0.1 [facility] Comment on above: Performed By: #### C BC ####[facility] [address] [address]DrAilyn Cali Basophils/100 WBC (Bld) 0.2 % Normal 0.2-2.0 [facility] Comment on above: Performed By: #### C BC ####[facility] [address] [place], [place] [address]DrAilyn Cali EO # 0.3 103/ul Normal 0.0-0.7 [facility] Comment on above: Performed By: #### C BC ####[facility] [address] [place], [place] [address]DrAilyn Cali Eosinophils/100 WBC (Bld) 3.1 % Normal 0.9-7.0 [facility] Comment on above: Performed By: #### C BC ####[facility] [address] [address]DrAilyn Cali Erythrocyte distribution width (RBC) [Ratio] 14.7 % Normal 11.0-15.0 [facility] Comment on above: Performed By: #### C BC ####[facility] [address] [place], [place] [address]DrAilyn Cali Hematocrit (Bld) [Volume fraction] 21.7 % Critically low 36.0-48.0 [facility] Comment on above: Performed By: #### C BC ####[facility] [address] [place], [place] [address]DrAilyn Cali Hemoglobin (Bld) [Mass/Vol] 7.4 g/dL Critically low 12.0-16.0 [facility] Comment on above: Performed By: #### C BC ####[facility] [address] [address]DrAilyn Cali IG # 0.17 10e3/ul Critically high 0.00-0.03 [facility] Comment on above: Performed By: #### C BC ####[facility] [address] [address]Dr. Ceci Cali IG % 1.9 % Critically high 0.0-0.5 [facility] Comment on above: Performed By: #### C BC ####[facility] [address] [place], [place] [address]DrAilyn Cali LYMPH # 0.8 103/ul Critically low 1.2-3.8 [facility] Comment on above: Performed By: #### C BC ####[facility] [address] [place], [place] [address]DrAilyn Cali Lymphocytes/100 WBC (Bld) 9.0 % Critically low 20.5-60.0 [facility] Comment on above: Performed By: #### C BC ####[facility] [address] [place], [place] [address]DrAilyn Caroljohn Cali MANUAL DIFF REQ NO Normal [facility] Comment on above: Performed By: #### C BC ####[facility] [address] [place], [place] [address]DrAilyn Caroljohn Cali MCH (RBC) [Entitic mass] 32.9 pg Normal 26.7-34.0 [facility] Comment on above: Performed By: #### C BC ####[facility] [address] [place], [place] [address]DrAilyn Caroljohn Cali MCHC (RBC) [Mass/Vol] 34.1 g/dL Normal 29.9-35.2 [facility] Comment on above: Performed By: #### C BC ####[facility] [address] [place], [place] [address]DrAilyn Cali MCV (RBC) [Entitic vol] 96.4 fL Normal 81.0-99.0 [facility] Comment on above: Performed By: #### C BC ####[facility] [address] [address]DrAilyn Ceci Cali MONO # 1.0 103/ul Critically high 0.3-0.8 [facility] Comment on above: Performed By: #### C BC ####[facility] [address] [place], [place] [address]DrAilyn Ceci Viraj Monocytes/100 WBC (Bld) 11.2 % Normal 1.7-12.0 [facility] Comment on above: Performed By: #### C BC ####[facility] [address] [place], [place] [address]DrAilyn Ceci Cali NEUT # 6.7 103/ul Critically high 1.4-6.5 [facility] Comment on above: Performed By: #### C BC ####[facility] [address] [place], [place] [address]Dr. Ceci Viraj Neutrophils/100 WBC (Bld) 74.6 % Normal 43.0-75.0 [facility] Comment on above: Performed By: #### C BC ####[facility] [address] [place], [place] [address]DrAilyn Ceci Viraj Platelet mean volume (Bld) [Entitic vol] 10.8 fL Normal 9.5-13.5 [facility] Comment on above: Performed By: #### C BC ####[facility] [address] [place], [place] [address]Dr. Ceci Viraj PLT 152 103/ul Normal 150-450 [facility] Comment on above: Performed By: #### C BC ####[facility] [address] [place], [place] [address]DrAilyn Cali RBC 2.25 106/ul Critically low 4.20-5.40 [facility] Comment on above: Performed By: #### C BC ####[facility] [address] [place], [place] [address]DrAilyn Cali WBC 9.0 103/ul Normal 4.0-11.0 [facility] Comment on above: Performed By: #### C BC ####[facility] [address] [address]Dr. Ceci Cali CELL COUNT BODY FLUIDon 03- Clarity, Serous Hazy Abnormal Clear [facility] Comment on above: Performed By: #### P HVEN #### [facility] [address] [address] [address] Ceci Cali Color, Serous Straw Normal [facility] Comment on above: Result Comment: Loco rless to Pale Yellow/Straw Performed By: #### P HVEN #### [facility] [address] [address] [address] Ceci Cali Comments: Normal [facility] Comment on above: Performed By: #### P HVEN #### [facility] [address] [address] [address] Ceci Cali Eosinophils/100 WBC (Bld) 0 % Normal Not Estab. [facility] Comment on above: Performed By: #### P HVEN #### [facility] [address] [address] [address] Ceci Cali Lining Cells, Serous Normal [facility] Comment on above: Performed By: #### P HVEN #### [facility] [address] [address] [address] Ceci Cali Lymphocytes/100 WBC (Bld) 4 % Normal Not Estab. [facility] Comment on above: Performed By: #### P HVEN #### [facility] [address] [address] [address] Ceci Cali Macrophages, Serous 59 % Normal Not Estab. [facility] Comment on above: Performed By: #### P HVEN #### [facility] [address] [address] [address] Ceci Cali Nucleated Cells, Serous 437 /mm3 Normal 0-499 [facility] Comment on above: Result Comment: Pleu ral Fluid, with <1000 Nucleated cells/uL has been associated with transudates while >1000 uL may be seen in exudates. Performed By: #### P HVEN #### [facility] [address] [address] [address] Ceci Cali Polys, Serous 37 % Critically high 0-24 [facility] Comment on above: Performed By: #### P HVEN #### [facility] [address] [address] [address] Ceci Cali RBC, Serous Rare Normal Not Estab. [facility] Comment on above: Performed By: #### P HVEN #### [facility] [address] [address] [address] Ceci Cali GLUCOSE BODYFLUIDon 05-30-19 23 Glucose, Body Fluid 177 mg/dL Normal [facility] Comment on above: Result Comment: ____ : BODY FLUID TYPE : GLUCOSE : : : : : Amniotic Fluid : 45 - 76 : : : : : Bile, Clear : < 5 : : : : : Bile, Yellow : < 8 : : : : : Lymph : 48 - 200 : : : : : Nasal Secretion : < 10 : : : : : Pleural Fluid : 65 - 99 : : : : : Saliva : < 2 : : (Mixed Glands) : : : : : : Sweat : < 7 : : : : : Synovial Fluid : 65 - 99 : : : : : Tears : 76 - 288 : : : : . [place] W, [place] V. Reference Intervals for Adults and Children 2007. Ninth edition (V9.1) [employer], [facility]; [place]: September 2008. Performed By: #### P [facility] #### [facility] [address] [place] [address] Dr. Ceci Cali LACTIC ACID DEHYDROGENASE (L D), BODY FLUon 05-29-2022 LD, Body Fluid 45 IU/L Normal [facility] Comment on above: Result Comment: ____ : BODY FLUID TYPE : LDH : : : : : : Nonmalignant: < 60% : : : of the serum LDH : : Ascitic Fluid : Malignant: > 60% : : : of the serum LDH : : : : : Gastric Juice : < 35 : : : : : : Transudate: <200 : : Pleural Fluid : Exudate: >200 : : : : : Saliva : 113 - 609 : : (Mixed Glands) : : : : : : Synovial Fluid : <240 : : : : . [place] W, [place] V. Reference Intervals for Adults and Children 2008. Ninth Edition (V9.1) [employer], [facility]; [place]: September 2008. Performed By: #### P HVEN #### [facility] [address] [place] [address] Dr. Ceci Cali PROF 14(COMP METB)on 023 Albumin [Mass/Vol] 2.4 g/dL Critically low 3.4-5.0 [facility] Comment on above: Performed By: #### P HVEN #### [facility] [address] [place] [address] Dr. Ceci Cali Albumin/Globulin [Mass ratio] 0.8 {ratio} Normal [facility] Comment on above: Performed By: #### P HVEN #### [facility] [address] [place] [address] Dr. Ceci Cali ALP [Catalytic activity/Vol] 70 U/L Normal 46-116 [facility] Comment on above: Performed By: #### P HVEN #### [facility] [address] [address] [address] Ceci Cali ALT [Catalytic activity/Vol] 17 U/L Normal 14-59 [facility] Comment on above: Performed By: #### P HVEN #### [facility] [address] [address] [address] Ceci Cali Anion gap [Moles/Vol] 16.5 mmol/L Normal [facility] Comment on above: Performed By: #### P HVEN #### [facility] [address] [address] [address] Ceci Cali AST [Catalytic activity/Vol] 22 U/L Normal 15-37 [facility] Comment on above: Performed By: #### P HVEN #### [facility] [address] [address] [address] Ceci Cali Bilirubin [Mass/Vol] 0.4 mg/dL Normal 0.2-1.0 [facility] Comment on above: Performed By: #### P HVEN #### [facility] [address] [address] [address] Ceci Cali Calcium [Mass/Vol] 8.0 mg/dL Critically low 8.5-10.1 [facility] Comment on above: Performed By: #### P HVEN #### [facility] [address] [address] [address] Ceci Cali Chloride [Moles/Vol] 100 mmol/L Normal 98-107 [facility] Comment on above: Performed By: #### P HVEN #### [facility] [address] [address] [address] Ceci Cali CO2 [Moles/Vol] 24.4 mmol/L Normal 21.0-32.0 [facility] Comment on above: Performed By: #### P HVEN #### [facility] [address] [address] [address] Ceci Cali Creatinine [Mass/Vol] 12.42 mg/dL Critically high 0.55-1.02 [facility] Comment on above: Performed By: #### P HVEN #### [facility] [address] [address] [address] Ceci Cali EGFR-AF LEBANESE 4 mL/min/1.73m2 Critically low >=60 [facility] Comment on above: Performed By: #### P HVEN #### [facility] [address] [address] [address] Ceci Cali EGFR-NON AF LEBANESE 3 mL/min/1.73m2 Critically low >=60 [facility] Comment on above: Performed By: #### P HVEN #### [facility] [address] [address] [address] Ceci Cali Globulin (S) [Mass/Vol] 3.2 g/dL Normal [facility] Comment on above: Performed By: #### P HVEN #### [facility] [address] [address] [address] Ceci Cali Glucose [Mass/Vol] 128 mg/dL Critically high 74-106 [facility] Comment on above: Performed By: #### P HVEN #### [facility] [address] [address] [address] Ceci Cali Potassium [Moles/Vol] 2.9 mmol/L Critically low 3.5-5.1 [facility] Comment on above: Performed By: #### P HVEN #### [facility] [address] [address] [address] Ceci Cali Protein [Mass/Vol] 5.6 g/dL Critically low 6.4-8.2 [facility] Comment on above: Performed By: #### P HVEN #### [facility] [address] [address] [address] Ceci Cali Sodium [Moles/Vol] 137 mmol/L Normal 136-145 [facility] Comment on above: Performed By: #### P HVEN #### [facility] [address] [address] [address] Ceci Cali Urea nitrogen [Mass/Vol] 61.0 mg/dL Critically high 7.0-18.0 [facility] Comment on above: Performed By: #### P HVEN #### [facility] [address] [address] [address] Ceci Cali Urea nitrogen/Creatinine [Mass ratio] 4.9 mg/mg Normal [facility] Comment on above: Performed By: #### P HVEN #### [facility] [address] [address] [address] Ceci Cali PROTEIN, TOTAL, BODY FLUIDon 05-29-2022 Protein, Body Fluid 0.5 g/dL Normal [facility] Comment on above: Result Comment: ____ : BODY FLUID TYPE : TOTAL PROTEIN : : : : : Amniotic Fluid : <0.4 : : : : : : Nonmalignant: <3.0 : : Ascitic Fluid : Malignant: >3.0 : : : : : Bile, Clear : <0.9 : : : : : Bile, Yellow : 0.2 - 0.6 : : : : : Lymph : 2.2 - 6.0 : : : : : Human Milk : 1.9 - 2.0 : : : : : Nasal Secretion : 0.1 - 3.5 : : : : : Pancreatic : 0.0 - 0.1 : : Juice : (post stimulation) : : : : : : Transudate: <0.3 : : Pleural Fluid : Exudate: >0.3 : : : : : Saliva : 0.1 - 0.2 : : (Mixed Glands) : : : : : : Synovial Fluid : <2.5 : : : : : Tears : 0.8 - 0.9 : : : : . Suyapa W, Katie V. Reference Intervals for Adults and Children 2007. Ninth Edition (V9.1) [employer], [facility]; [place]: September 2008. Performed By: #### T PBF ####[address] Ceci Cali SED RATE formerly [facility] 2022 SED RATE 56 mm/hr Critically high <=20 [facility] Comment on above: Performed By: #### F ERR, FETIBC #### [facility] [address] [place] [address] Dr. Ceci Cali CBC AUTO DIFFon 05-28-2022 BASO # 0.0 103/ul Normal 0.0-0.1 [facility] Comment on above: Performed By: #### F ERR, FETIBC #### [facility] [address] [place] [address] Dr. Ceci Cali Basophils/100 WBC (Bld) 0.4 % Normal 0.2-2.0 [facility] Comment on above: Performed By: #### F ERR, FETIBC #### [facility] [address] [place] [address] Dr. Ceci Cali EO # 0.2 103/ul Normal 0.0-0.7 [facility] Comment on above: Performed By: #### F ERR, FETIBC #### [facility] [address] [place] [address] Dr. Ceci Cali Eosinophils/100 WBC (Bld) 2.2 % Normal 0.9-7.0 [facility] Comment on above: Performed By: #### F ERR, FETIBC #### [facility] [address] [place] [address] Dr. Ceci Cali Erythrocyte distribution width (RBC) [Ratio] 14.8 % Normal 11.0-15.0 [facility] Comment on above: Performed By: #### F ERR, FETIBC #### [facility] [address] [place] [address] Dr. Ceci Cali Hematocrit (Bld) [Volume fraction] 24.1 % Critically low 36.0-48.0 [facility] Comment on above: Performed By: #### F ERR, FETIBC #### [facility] [address] [place] [address] Dr. Ceci Cali Hemoglobin (Bld) [Mass/Vol] 8.4 g/dL Critically low 12.0-16.0 [facility] Comment on above: Performed By: #### F ERR, FETIBC #### [facility] [address] [address] [address] Ceci Cali IG # 0.26 10e3/ul Critically high 0.00-0.03 [facility] Comment on above: Performed By: #### F ERR, FETIBC #### [facility] [address] [address] [address] Ceci Cali IG % 2.4 % Critically high 0.0-0.5 [facility] Comment on above: Performed By: #### F ERR, FETIBC #### [facility] [address] [address] [address] Ceci Cali LYMPH # 1.1 103/ul Critically low 1.2-3.8 [facility] Comment on above: Performed By: #### F ERR, FETIBC #### [facility] [address] [address] [address] Ceci Cali Lymphocytes/100 WBC (Bld) 9.9 % Critically low 20.5-60.0 [facility] Comment on above: Performed By: #### F ERR, FETIBC #### [facility] [address] [address] [address] Ceci Cali MANUAL DIFF REQ NO Normal [facility] Comment on above: Performed By: #### F ERR, FETIBC #### [facility] [address] [address] [address] Ceci Cali MCH (RBC) [Entitic mass] 33.3 pg Normal 26.7-34.0 [facility] Comment on above: Performed By: #### F ERR, FETIBC #### [facility] [address] [address] [address] Ceci Cali MCHC (RBC) [Mass/Vol] 34.9 g/dL Normal 29.9-35.2 [facility] Comment on above: Performed By: #### F ERR, FETIBC #### [facility] [address] [address] [address] Ceci Cali MCV (RBC) [Entitic vol] 95.6 fL Normal 81.0-99.0 [facility] Comment on above: Performed By: #### F ERR, FETIBC #### [facility] [address] [place] [address] Dr. Ceci Cali MONO # 1.3 103/ul Critically high 0.3-0.8 [facility] Comment on above: Performed By: #### F ERR, FETIBC #### [facility] [address] [place] [address] Dr. Ceci Cali Monocytes/100 WBC (Bld) 11.8 % Normal 1.7-12.0 [facility] Comment on above: Performed By: #### F ERR, FETIBC #### [facility] [address] [place] [address] Dr. Ceci Cali NEUT # 8.1 103/ul Critically high 1.4-6.5 [facility] Comment on above: Performed By: #### F ERR, FETIBC #### [facility] [address] [place] [address] Dr. Ceci Cali Neutrophils/100 WBC (Bld) 73.3 % Normal 43.0-75.0 [facility] Comment on above: Performed By: #### F ERR, FETIBC #### [facility] [address] [place] [address] Dr. Ceci Cali Platelet mean volume (Bld) [Entitic vol] 10.4 fL Normal 9.5-13.5 [facility] Comment on above: Performed By: #### F ERR, FETIBC #### [facility] [address] [place] [address] Dr. Ceci Cali PLT 186 103/ul Normal 150-450 [facility] Comment on above: Performed By: #### F ERR, FETIBC #### [facility] [address] [place] [address] Dr. Ceci Cali RBC 2.52 106/ul Critically low 4.20-5.40 [facility] Comment on above: Performed By: #### F ERR, FETIBC #### [facility] [address] [place], [place] [id number] Dr. Ceci Cali WBC 11.0 103/ul Normal 4.0-11.0 [facility] Comment on above: Performed By: #### F ERR, FETIBC #### [facility] [address] [place] [address] Dr. Ceci Cali PROF 14(COMP METB)on 023 Albumin [Mass/Vol] 2.8 g/dL Critically low 3.4-5.0 [facility] Comment on above: Performed By: #### P HVEN #### [facility] [address] [place] [address] Dr. Ceci Cali Albumin/Globulin [Mass ratio] 0.9 {ratio} Normal [facility] Comment on above: Performed By: #### P HVEN #### [facility] [address] [place] [address] Dr. Ceci Cali ALP [Catalytic activity/Vol] 74 U/L Normal 46-116 [facility] Comment on above: Performed By: #### P HVEN #### [facility] [address] [place] [address] Dr. Ceci Cali ALT [Catalytic activity/Vol] 18 U/L Normal 14-59 [facility] Comment on above: Performed By: #### P HVEN #### [facility] [address] [place] [address] Dr. Ceci Cali Anion gap [Moles/Vol] 17.6 mmol/L Normal [facility] Comment on above: Performed By: #### P HVEN #### [facility] [address] [place] [address] Dr. Ceci Cali AST [Catalytic activity/Vol] 22 U/L Normal 15-37 [facility] Comment on above: Performed By: #### P HVEN #### [facility] [address] [place] [address] Dr. Ceci Cali Bilirubin [Mass/Vol] 0.5 mg/dL Normal 0.2-1.0 [facility] Comment on above: Performed By: #### P HVEN #### [facility] [address] [place], [place] [address] Dr. Ceci Cali Calcium [Mass/Vol] 8.5 mg/dL Normal 8.5-10.1 [facility] Comment on above: Performed By: #### P HVEN #### [facility] [address] [place] [address] Dr. Ceci Cali Chloride [Moles/Vol] 101 mmol/L Normal 98-107 [facility] Comment on above: Performed By: #### P HVEN #### [facility] [address] [address] [address] Ceci Cali CO2 [Moles/Vol] 25.5 mmol/L Normal 21.0-32.0 [facility] Comment on above: Performed By: #### P HVEN #### [facility] [address] [place] [address] Dr. Ceci Cali Creatinine [Mass/Vol] 12.17 mg/dL Critically high 0.55-1.02 [facility] Comment on above: Performed By: #### P HVEN #### [facility] [address] [place] [address] Dr. Ceci Cali EGFR-AF LEBANESE 4 mL/min/1.73m2 Critically low >=60 [facility] Comment on above: Performed By: #### P HVEN #### [facility] [address] [place] [address] Dr. Ceci Cali EGFR-NON AF LEBANESE 3 mL/min/1.73m2 Critically low >=60 [facility] Comment on above: Performed By: #### P HVEN #### [facility] [address] [place] [address] Dr. Ceci Cali Globulin (S) [Mass/Vol] 3.1 g/dL Normal [facility] Comment on above: Performed By: #### P HVEN #### [facility] [address] [place] [address] Dr. Ceci Cali Glucose [Mass/Vol] 116 mg/dL Critically high 74-106 [facility] Comment on above: Performed By: #### P HVEN #### [facility] [address] [place] [address] Dr. Ceci Cali Potassium [Moles/Vol] 3.1 mmol/L Critically low 3.5-5.1 [facility] Comment on above: Performed By: #### P HVEN #### [facility] [address] [address] [address] Ceci Cali Protein [Mass/Vol] 5.9 g/dL Critically low 6.4-8.2 [facility] Comment on above: Performed By: #### P HVEN #### [facility] [address] [address] [address] Ceci Cali Sodium [Moles/Vol] 141 mmol/L Normal 136-145 [facility] Comment on above: Performed By: #### P HVEN #### [facility] [address] [address] [address] Ceci Cali Urea nitrogen [Mass/Vol] 61.0 mg/dL Critically high 7.0-18.0 [facility] Comment on above: Performed By: #### P HVEN #### [facility] [address] [place] [address] Dr. Ceci Cali Urea nitrogen/Creatinine [Mass ratio] 4.8 mg/mg Normal [facility] Comment on above: Performed By: #### P HVEN #### [facility] [address] [place] [address] Dr. Ceci Cali RESPIRATORY PANEL PLUSon Adenovirus Not detected Normal NOT DETECTED [facility] Comment on above: Performed By: #### R SPLUS ####[facility] [address] [address]DrAilyn Cali B. Parapertusis Not detected Normal NOT DETECTED [facility] Comment on above: Performed By: #### R SPLUS ####[facility] [address] [address]DrAilyn Cali B. Pertussis Not detected Normal NOT DETECTED [facility] Comment on above: Performed By: #### R SPLUS ####[facility] [address] [address]DrAilyn Cali Chlamydia Pneumoniae Not detected Normal NOT DETECTED [facility] Comment on above: Performed By: #### R SPLUS ####[facility] [address] [address]Dr. Yilan Cali Coronavirus 229E Not detected Normal NOT DETECTED [facility] Comment on above: Performed By: #### R SPLUS ####[facility] [address] [place], [place] [address]Dr. Yilan Cali Coronavirus HKU1 Not detected Normal NOT DETECTED [facility] Comment on above: Performed By: #### R SPLUS ####[facility] [address] [place], [place] [address]Dr. Yilan Cali Coronavirus NL63 Not detected Normal NOT DETECTED [facility] Comment on above: Performed By: #### R SPLUS ####[facility] [address] [place], [place] [address]Dr. Yilan Cali Coronavirus OC43 Not detected Normal NOT DETECTED [facility] Comment on above: Performed By: #### R SPLUS ####[facility] [address] [place], [place] [address]Dr. Yilan Cali Influenza A H1 Not detected Normal NOT DETECTED [facility] Comment on above: Performed By: #### R SPLUS ####[facility] [address] [place], [place] [address]Dr. Yilan Cali Influenza A H1 2009 Not detected Normal NOT DETECTED [facility] Comment on above: Performed By: #### R SPLUS ####[facility] [address] [place], [place] [address]Dr. Yilan Cali Influenza A H3 Not detected Normal NOT DETECTED [facility] Comment on above: Performed By: #### R SPLUS ####[facility] [address] [place], [place] [address]Dr. Yilan Cali Influenza B Not detected Normal NOT DETECTED [facility] Comment on above: Performed By: #### R SPLUS ####[facility] [address] [place], [place] [address]Dr. Yilan Cali Metapneumovirus Not detected Normal NOT DETECTED [facility] Comment on above: Performed By: #### R SPLUS ####[facility] [address] [address] Ceci Cali Mycoplas. Pneumoniae Not detected Normal NOT DETECTED [facility] Comment on above: Performed By: #### R SPLUS ####[facility] [address] [place], [place] [address]Dr. Yijohn Cali Parainfluenza 1 Not detected Normal NOT DETECTED [facility] Comment on above: Performed By: #### R SPLUS ####[facility] [address] [place], [place] [address]Dr. Yijohn Cali Parainfluenza 2 Not detected Normal NOT DETECTED [facility] Comment on above: Performed By: #### R SPLUS ####[facility] [address] [place], [place] [address]Dr. Ceci Cali Parainfluenza 3 Not detected Normal NOT DETECTED [facility] Comment on above: Performed By: #### R SPLUS ####[facility] [address] [place], [place] [address]Dr. Yijohn Cali Parainfluenza 4 Not detected Normal NOT DETECTED [facility] Comment on above: Performed By: #### R SPLUS ####[facility] [address] [place], [place] [address]Dr. Yilan Cali Rhino/Enterovirus Not detected Normal NOT DETECTED [facility] Comment on above: Performed By: #### R SPLUS ####[facility] [address] [place], [place] [address]Dr. Yijohn Cali RP2 Header 1 RESPIRATORY PANEL: VIRUSES Normal [facility] Comment on above: Performed By: #### R SPLUS ####[facility] [address] [place], [place] [address]Dr. Yilan Cali RP2 Header 2 RESPIRATORY PANEL: BACTERIA Normal [facility] Comment on above: Performed By: #### R SPLUS ####[facility] [address] [place], [place] [address]Dr. Yilan Cali RSV Not detected Normal NOT DETECTED [facility] Comment on above: Performed By: #### R SPLUS ####[facility] [address] [address] Ceci Cali SARS-CoV-2 (COVID-19) RNA KAUSHAL+probe Ql (Unsp spec) Not detected Normal NOT DETECTED [facility] Comment on above: Performed By: #### R SPLUS ####[facility] [address] [address] Ceci Cali SED RATE WESTERGRENon 2022 SED RATE 35 mm/hr Critically high <=20 [facility] Comment on above: Performed By: #### P HVEN #### [facility] [address] [place] [address] Dr. Ceci Cali CBC AUTO DIFFon 05-27-2022 BASO # 0.1 103/ul Normal 0.0-0.1 [facility] Comment on above: Performed By: #### F ERR, FETIBC #### [facility] [address] [place] [address] Dr. Ceci Cali Basophils/100 WBC (Bld) 0.4 % Normal 0.2-2.0 [facility] Comment on above: Performed By: #### F ERR, FETIBC #### [facility] [address] [place] [address] Dr. Ceci Cali EO # 0.3 103/ul Normal 0.0-0.7 [facility] Comment on above: Performed By: #### F ERR, FETIBC #### [facility] [address] [place] [address] Dr. Ceci Cali Eosinophils/100 WBC (Bld) 1.8 % Normal 0.9-7.0 [facility] Comment on above: Performed By: #### F ERR, FETIBC #### [facility] [address] [place] [address] Dr. Ceci Cali Erythrocyte distribution width (RBC) [Ratio] 14.7 % Normal 11.0-15.0 [facility] Comment on above: Performed By: #### F ERR, FETIBC #### [facility] [address] [place] [address] Dr. Ceci Cali Hematocrit (Bld) [Volume fraction] 30.5 % Critically low 36.0-48.0 [facility] Comment on above: Performed By: #### F ERR, FETIBC #### [facility] [address] [place] [address] Dr. Ceci Cali Hemoglobin (Bld) [Mass/Vol] 10.6 g/dL Critically low 12.0-16.0 [facility] Comment on above: Performed By: #### F ERR, FETIBC #### [facility] [address] [place] [address] Dr. Ceci Cali IG # 0.29 10e3/ul Critically high 0.00-0.03 [facility] Comment on above: Performed By: #### F ERR, FETIBC #### [facility] [address] [place] [address] Dr. Ceci Cali IG % 1.7 % Critically high 0.0-0.5 [facility] Comment on above: Performed By: #### F ERR, FETIBC #### [facility] [address] [place] [address] Dr. Ceci Cali LYMPH # 0.7 103/ul Critically low 1.2-3.8 [facility] Comment on above: Performed By: #### F ERR, FETIBC #### [facility] [address] [place] [address] Dr. Ceci Cali Lymphocytes/100 WBC (Bld) 4.1 % Critically low 20.5-60.0 [facility] Comment on above: Performed By: #### F ERR, FETIBC #### [facility] [address] [place] [address] Dr. Ceci Cali MANUAL DIFF REQ NO Normal [facility] Comment on above: Performed By: #### F ERR, FETIBC #### [facility] [address] [place] [address] Dr. Ceci Cali MCH (RBC) [Entitic mass] 32.5 pg Normal 26.7-34.0 [facility] Comment on above: Performed By: #### F ERR, FETIBC #### [facility] [address] [address] [address] Ceci Cali MCHC (RBC) [Mass/Vol] 34.8 g/dL Normal 29.9-35.2 [facility] Comment on above: Performed By: #### F ERR, FETIBC #### [facility] [address] [address] [address] Ceci Cali MCV (RBC) [Entitic vol] 93.6 fL Normal 81.0-99.0 [facility] Comment on above: Performed By: #### F ERR, FETIBC #### [facility] [address] [place] [address] Dr. Ceci Cali MONO # 1.5 103/ul Critically high 0.3-0.8 [facility] Comment on above: Performed By: #### F ERR, FETIBC #### [facility] [address] [place] [address] Dr. Ceci Cali Monocytes/100 WBC (Bld) 8.5 % Normal 1.7-12.0 [facility] Comment on above: Performed By: #### F ERR, FETIBC #### [facility] [address] [place] [address] Dr. Ceci Cali NEUT # 14.6 103/ul Critically high 1.4-6.5 [facility] Comment on above: Performed By: #### F ERR, FETIBC #### [facility] [address] [place] [address] Dr. Ceci Cali Neutrophils/100 WBC (Bld) 83.5 % Critically high 43.0-75.0 [facility] Comment on above: Performed By: #### F ERR, FETIBC #### [facility] [address] [place] [address] Dr. Ceci Cali Platelet mean volume (Bld) [Entitic vol] 10.2 fL Normal 9.5-13.5 [facility] Comment on above: Performed By: #### F ERR, FETIBC #### [facility] [address] [place] [address] Dr. Ceci Cali PLT 224 103/ul Normal 150-450 [facility] Comment on above: Performed By: #### F ERR, FETIBC #### [facility] [address] [place] [address] Dr. Ceci Cali RBC 3.26 106/ul Critically low 4.20-5.40 [facility] Comment on above: Performed By: #### F ERR, FETIBC #### [facility] [address] [place] [address] Dr. Ceci Cali WBC 17.5 103/ul Critically high 4.0-11.0 [facility] Comment on above: Performed By: #### F ERR, FETIBC #### [facility] [address] [place] [address] Dr. Ceci Cali CULTURE BLOODon 05-27-2022 Microscopic examination of blood, culture Culture Observations: NO GROWTH AT 5 DAYS. Normal [facility] Comment on above: Performed By: #### F ERR, FETIBC #### [facility] [address] [place] [address] Dr. Ceci Cali Microscopic examination of blood, culture Culture Observations: NO GROWTH AT 5 DAYS. Normal [facility] Comment on above: Performed By: #### F ERR, FETIBC #### [facility] [address] [place] [address] Dr. Ceci Cali CULTURE STERILE BODY FLUIDon 05-27-2022 CULTURE STERILE BODY FLUID Culture Observations: No growth at 72 hours Normal [facility] Comment on above: Performed By: #### S TBFCX #### [facility] [address] [place] [address] Dr. Ceci Cali Covid-19 PCR (CVDTB)on 05-13 SARS-CoV-2 (COVID-19) RNA KAUSHAL+probe Ql (Unsp spec) Not detected Normal NOT DETECTED [facility] Comment on above: Result Comment: When diagnostic testing is negative, the possibility of a false negative should be considered in the context of a patient's recent exposures and the presence of clinical signs and symptoms consistent with SARS-CoV-2. This test is not yet approved or cleared by the [place] FDA. When there are no FDA-approved or cleared tests available, and other criteria are met, FDA can make tests available under an emergency access mechanism called an Emergency Use Authorization (EUA). The EUA for this test is supported by the [place] of Health and Human Service's declaration that circumstances exist to justify the emergency use of in vitro diagnostics for the detection and/or diagnosis of the virus that causes COVID-19. This EUA will remain in effect for the duration of the COVID-19 declaration justifying emergency of IVDs, unless it is terminated or revoked by the FDA (after which the test may no longer be used). Performed By: #### C VDTBH ####[facility] [address] [address] Ceci Cali ER URINE PROFILEon 3 Bilirubin Ql (U) Negative Normal NEGATIVE [facility] Comment on above: Performed By: #### P HVEN #### [facility] [address] [place] [address] Dr. Ceci Cali Clarity (U) CLEAR Normal CLEAR [facility] Comment on above: Performed By: #### P HVEN #### [facility] [address] [place] [address] Dr. Ceci Cali Color (U) YELLOW Normal YELLOW [facility] Comment on above: Performed By: #### P HVEN #### [facility] [address] [place] [address] Dr. Ceci Cali ERUAHD A micrscopic examina tion will be performed if indicated. Normal [facility] Comment on above: Performed By: #### P HVEN #### [facility] [address] [place] [address] Dr. Ceci Cali Glucose Ql (U) Negative Normal NEGATIVE [facility] Comment on above: Performed By: #### P HVEN #### [facility] [address] [place] [address] Dr. Ceci Cali Hemoglobin Ql (U) MODERATE Abnormal NEGATIVE [facility] Comment on above: Performed By: #### P HVEN #### [facility] [address] [place] [address] Dr. Ceci Cali Ketones Ql (U) Negative Normal NEGATIVE [facility] Comment on above: Performed By: #### P HVEN #### [facility] [address] [address] [address] Ceci Cali LEUKOCYTES Negative Normal NEGATIVE [facility] Comment on above: Performed By: #### P HVEN #### [facility] [address] [place] [address] Dr. Ceci Cali Nitrite Ql (U) Negative Normal NEGATIVE [facility] Comment on above: Performed By: #### P HVEN #### [facility] [address] [place] [address] Dr. Ceci Cali pH (U) 6.0 [pH] Normal 5-9 [facility] Comment on above: Performed By: #### P HVEN #### [facility] [address] [place] [address] Dr. Ceci Cali Protein (U) [Mass/Vol] 100 mg/dL Abnormal NEGATIVE/ TRACE [facility] Comment on above: Performed By: #### P HVEN #### [facility] [address] [place] [address] Dr. Ceci Cali SPEC GRAVITY 1.020 Normal 1.005-<=1.025 [facility] Comment on above: Performed By: #### P HVEN #### [facility] [address] [place] [address] Dr. Ceci Cali UR MICRO IND INDICATED Normal [facility] Comment on above: Performed By: #### P HVEN #### [facility] [address] [place] [address] Dr. Ceci Cali Urobilinogen Qn (U) 0.2 {Liborio'U}/dL Normal 0.2 - 1. 0 [facility] Comment on above: Performed By: #### P HVEN #### [facility] [address] [place] [address] Dr. Ceci Cali INFLUENZA A AND B AGon 05-27 INFLUANEGH SEE BELOW Normal [facility] Comment on above: Result Comment: Nega tive for Flu A protein angiten. Infection due to Flu A cannot be ruled out. Flu A angiten in the sample may be below the detection limit of the test. Performed By: #### I NFLUAB ####[facility] [address] [address]Dr. Ceci Cali INFLUBNEGH SEE BELOW Normal [facility] Comment on above: Result Comment: Nega tive for Flu B protein antigen. Infection due to Flu B cannot be ruled out. Flu B antigen in the sample may be below the detection limit of the test. Performed By: #### I NFLUAB ####[facility] [address] [place], [place] [address]Dr. Ceci Cali INFLUENZA A AG Negative Normal NEGATIVE SEE COMMENT [facility] Comment on above: Performed By: #### I NFLUAB ####[facility] [address] [place], [place] [address]Dr. Ceci Cali INFLUENZA B AG Negative Normal NEGATIVE SEE COMMENT [facility] Comment on above: Performed By: #### I NFLUAB ####[facility] [address] [place], [place] [address]Dr. Ceci Cali LACTATE/LACTIC ACIDon 2022 Lactate [Moles/Vol] 1.6 mmol/L Normal 0.4-2.0 [facility] Comment on above: Performed By: #### L ACT ####[facility] [address] [place], [place] [address]Dr. Ceci Cali Lactate [Moles/Vol] 2.2 mmol/L Critically high 0.4-2.0 [facility] Comment on above: Performed By: #### L ACT ####[facility] [address] [place], [place] [address]Dr. Ceci Cali PH VENOUS BLOODon 05-27-2022 PCO2 VENOUS 41.2 mmHg Normal 40.0-52.0 [facility] Comment on above: Performed By: #### P HVEN #### [facility] [address] [address] [address] Ceci Cali pH VENOUS 7.461 Critically high 7.330-7.430 [facility] Comment on above: Performed By: #### P HVEN #### [facility] [address] [place] [address] Dr. Ceci Cali PROF 14(COMP METB)on 023 Albumin [Mass/Vol] 3.4 g/dL Normal 3.4-5.0 [facility] Comment on above: Performed By: #### C MP #### [facility] [address] [place] [address] Dr. Ceci Cali Albumin/Globulin [Mass ratio] 0.9 {ratio} Normal [facility] Comment on above: Performed By: #### C MP #### [facility] [address] [place] [address] Dr. Ceci Cali ALP [Catalytic activity/Vol] 106 U/L Normal 46-116 [facility] Comment on above: Performed By: #### C MP #### [facility] [address] [place] [address] Dr. Ceci Cali ALT [Catalytic activity/Vol] 21 U/L Normal 14-59 [facility] Comment on above: Performed By: #### C MP #### [facility] [address] [place] [address] Dr. Ceci Cali Anion gap [Moles/Vol] 14.3 mmol/L Normal [facility] Comment on above: Performed By: #### C MP #### [facility] [address] [place] [address] Dr. Ceci Cali AST [Catalytic activity/Vol] 22 U/L Normal 15-37 [facility] Comment on above: Performed By: #### C MP #### [facility] [address] [place] [address] Dr. Ceci Cali Bilirubin [Mass/Vol] 0.4 mg/dL Normal 0.2-1.0 [facility] Comment on above: Performed By: #### C MP #### [facility] [address] [place] [address] Dr. Ceci Cali Calcium [Mass/Vol] 9.8 mg/dL Normal 8.5-10.1 [facility] Comment on above: Performed By: #### C MP #### [facility] [address] [address] [address] Ceci Cali Chloride [Moles/Vol] 97 mmol/L Critically low 98-107 [facility] Comment on above: Performed By: #### C MP #### [facility] [address] [address] [address] Ceci Cali CO2 [Moles/Vol] 25.7 mmol/L Normal 21.0-32.0 [facility] Comment on above: Performed By: #### C MP #### [facility] [address] [address] [address] Ceci Cali Creatinine [Mass/Vol] 11.95 mg/dL Critically high 0.55-1.02 [facility] Comment on above: Performed By: #### C MP #### [facility] [address] [place] [address] Dr. Ceci Cali EGFR-AF LEBANESE 4 mL/min/1.73m2 Critically low >=60 [facility] Comment on above: Performed By: #### C MP #### [facility] [address] [place] [address] Dr. Ceci Cali EGFR-NON AF LEBANESE 4 mL/min/1.73m2 Critically low >=60 [facility] Comment on above: Performed By: #### C MP #### [facility] [address] [place] [address] Dr. Ceci Cali Globulin (S) [Mass/Vol] 3.7 g/dL Normal [facility] Comment on above: Performed By: #### C MP #### [facility] [address] [place] [address] Dr. Ceci Cali Glucose [Mass/Vol] 127 mg/dL Critically high 74-106 T [facility] Comment on above: Performed By: #### C MP #### [facility] [address] [address] [address] Ceci Cali Potassium [Moles/Vol] 3.0 mmol/L Critically low 3.5-5.1 [facility] Comment on above: Performed By: #### C MP #### [facility] [address] [place] [address] Dr. Ceci Cali Protein [Mass/Vol] 7.1 g/dL Normal 6.4-8.2 [facility] Comment on above: Performed By: #### C MP #### [facility] [address] [place] [address] Dr. Ceci Cali Sodium [Moles/Vol] 134 mmol/L Critically low 136-145 [facility] Comment on above: Performed By: #### C MP #### [facility] [address] [place] [address] Dr. Ceci Cali Urea nitrogen [Mass/Vol] 57.0 mg/dL Critically high 7.0-18.0 [facility] Comment on above: Performed By: #### C MP #### [facility] [address] [place] [address] Dr. Ceci Cali Urea nitrogen/Creatinine [Mass ratio] 4.8 mg/mg Normal [facility] Comment on above: Performed By: #### C MP #### [facility] [address] [place] [address] Dr. Ceci Cali URINE MICROSCOPIC ONLYon BACTERIA TRACE Abnormal NONE SEEN [facility] Comment on above: Performed By: #### I NFLUAB #### [facility] [address] [place] [address] Dr. Ceci Cali Bacteria identified Cx Nom (U) NOT INDICATED Normal [facility] Comment on above: Performed By: #### I NFLUAB #### [facility] [address] [place] [address] Dr. Ceci Cali CAST SEEN Abnormal NONE SEEN [facility] Comment on above: Performed By: #### I NFLUAB #### [facility] [address] [place] [address] Dr. Ceci Cali COARSE GRANULAR CAST FEW Normal [facility] Comment on above: Performed By: #### I NFLUAB #### [facility] [address] [place] [address] Dr. Ceci Cali Crystals LM Nom (Urine sed) NONE SEEN Normal NONE SEEN [facility] Comment on above: Performed By: #### I NFLUAB #### [facility] [address] [address] [address] Ceci Cali Epithelial cells LM Ql (Urine sed) MODERATE Abnormal NONE SEEN /RARE [facility] Comment on above: Performed By: #### I NFLUAB #### [facility] [address] [address] [address] Ceci Cali MUCOUS NONE SEEN Normal NONE SEEN [facility] Comment on above: Performed By: #### I NFLUAB #### [facility] [address] [place] [address] Dr. Ceci Cali RBC 10-20 Abnormal 0-2 [facility] Comment on above: Performed By: #### I NFLUAB #### [facility] [address] [place] [address] Dr. Ceci Cali WBC 2-5 Abnormal NONE SEEN [facility] Comment on above: Performed By: #### I NFLUAB #### [facility] [address] [place] [address] Dr. Ceci Cali XR CHEST 2 Von 05-27-2022 XR CHEST 2 V EXAMINATION: XR CHES T 2 V, , 05/27/2022 2:58 PM EDT INDICATION: COUGH HISTORY: Ordering Provider Reason for Exam: Technologist Note: Additional: COMPARISON: Chest x-ray dated 08/21/2021. TECHNIQUE: Chest x-ray: Two views. FINDINGS: No pneumothorax, pleural effusion or focal airspace consolidation. Heart is normal in size. Bony thorax is unremarkable. IMPRESSION: No acute cardiopulmonary process. Electronically authenticated by: KAREN ALVARENGA Date: 2022-05-27 16:41 Normal [facility] FISH FOR BCR/ABL1on 05-06-19 23 BCR Result FISH for t(9;22) BCR /ABL1 Rearrangement Laboratory Accession Number: [id number] Case: N/A Sample type: Peripheral Blood Received Date: 04/28/2022 Number of nuclei scored: 200 RESULT: Result Reference Range BCR/ABL1 0% (0-2%) INTERPRETATION: Interphase fluorescence in situ hybridization (FISH) was negative for a BCR/ABL1 rearrangement. Quantitative RT-PCR studies are suggested for routine monitoring of minimal residual disease. Clinical correlation is recommended. METHODOLOGY: The dual color, dual fusion LSI BCR (22q11.2) and LSI ABL1 (9q34) probe set ([facility], [place], [place]) was used in this FISH assay. This test should not be used for the detection of minimal residual disease. DISCLAIMER: This test was developed and its performance characteristics determined by the [facility]'s Shad Gerhard [facility] [place] ([facility]). It has not been cleared or approved by the FDA. [facility] is regulated under CLIA as qualified to perform high- complexity testing. This test is used for clinical purposes. It should not be regarded as investigational or for research. Interpretation performed at [facility], [address] [place] [address]. CLIA Number: [id number] As reviewed by Jeff Morley MD, PhD [facility] FERRITIN BLDon 04-28-2022 Ferritin [Mass/Vol] 567.0 ng/mL High 14.7 - 2 05.1 ng/mL [facility] FOLATE SERUMon 04-28-2022 Folate [Mass/Vol] >4.7 ng/mL [facility] Iron and Iron binding capaci ty panelon 04-28-2022 Iron [Mass/Vol] 101 ug/dL 41 - 186 ug/dL [facility] Iron binding capacity [Mass/Vol] 300 ug/dL 232 - 386 ug/dL [facility] Iron/TIBC [Molar ratio] 33.7 % 15.0 - 57.0 % [facility] VITAMIN B12 BLOODon 04-28-19 23 Cobalamin (Vitamin B12) [Mass/Vol] 550 pg/mL 232 - 1,245 pg/mL [facility] XR CHEST 2V FRONTAL/LATon [facility] CT CHEST WO IVCONon 01-03-20 22 [facility] No Panel Informationon 12-25 [facility] CNPNon 10-09-2021 CNPN Telephone ([facility]) GERALD,MITA ([id number]) 1980 F Date Time Provider Department 10/09/21 FINA SYED During your visit today, we recorded the following information about you: Allergies As of Date: 10/09/2021 (No Known Allergies) Date Reviewed: 09/08/2021 Reviewed by: Winter Read - Fully Assessed Reason for Visit: Appointment [186] Prescriptions as of 10/09/2021 - sevelamer carbonate (RENVELA) 800 mg tablet Sevelamer Carbonate Active 1600 MG PO 3 times per day with meals August 19, 2021 1:41pm - carvedilol (COREG) 12.5 mg tablet - sulfamethoxazole-trimethopr im (BACTRIM,SEPTRA) 400-80 mg per tablet Sulfamethoxazole-Trimethopr im Active 1 TAB PO every Wednesday, Wednesday, and Thursday August 19, 2021 1:47pm - predniSONE (DELTASONE) 5 mg tablet Take 1 tablet by mouth once daily. - predniSONE (DELTASONE) 2.5 mg tablet Take 1 tablet by mouth once daily. - sevelamer (RENAGEL) 800 mg tablet Take 2 tablets by mouth three times daily with meals. - polyethylene glycol 3350 (MIRALAX) 17 gram/dose powder Take by mouth once daily. Dissolve dose in 4 - 8 ounces of liquid and take as directed. - B Complex-Vitamin C-Folic Acid (DIALYVITE 800) 0.8 mg tab Take 0.8 mg by mouth once daily. 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 Abnormal Not Detected [facility] HCG ( test) IA.rapi d Ql (U)Ordered By: Robert Patel on 08-28-2021 HCG ( test) Ql (U) Negative [facility] COVID-19 Positive/NegativeOr dered By: Robert Patel on 08-26-2021 SARS-CoV-2 (COVID-19) N gene KAUSHAL+probe Ql (Resp) Negative Negative [facility] Comment on above: Testing for SARS-CoV -2 by RT-PCR This test was developed and its performance characteristics determined by [employer] ([employer]) and validated at the [facility]. This test has not been FDA cleared or approved. This test has been authorized by FDA under an Emergency Use Authorization (EUA). This test has been validated in accordance with the FDA's Guidance Document (Policy for Diagnostics Testing in Laboratories Certified to Perform High Complexity Testing under CLIA prior to Emergency Use Authorization for Coronavirus Disease-2019 during the Public Health Emergency) issued on June 15, 2019. This test is only authorized for the duration of time the declaration that circumstances exist justifying the authorization of the emergency use of in vitro diagnostic tests for detection of SARS-CoV-2 virus and/or diagnosis of COVID-19 infection under section 564(b)(1) of the Act, 21 U.S.C. 360bbb-3(b)(1), unless the authorization is terminated or revoked sooner. Admission Risk Screen - Adul ton 08-22-2021 Admission Risk Screen - Adult Normal [facility] BLOOD CULTURE, BACTERIALon 0 08-22-2021 BLOOD CULTURE, BACTERIAL Normal [facility] Comment on above: Performed By: #### B LDC ####[id number] [place] [address] CBCon 08-22-2021 Erythrocyte distribution width (RBC) [Ratio] 17.3 % High 11.5 - 14.5 [facility] Comment on above: Performed By: #### C BC ####[facility] [place] [address] Hematocrit (Bld) [Volume fraction] 33.3 % Low 36.0 - 46.0 [facility] Comment on above: Performed By: #### C BC ####[address] [address] Hemoglobin (Bld) [Mass/Vol] 10.3 g/dL Low 12.0 - 16.0 [facility] Comment on above: Performed By: #### C BC ####[address] [address] MCHC (RBC) [Mass/Vol] 30.9 g/dL Low 32.0 - 36.0 [facility] Comment on above: Performed By: #### C BC ####[address] [address] MCV (RBC) [Entitic vol] 105 fL High 80 - 100 [facility] Comment on above: Performed By: #### C BC ####[address] [address] NUCLEATED RBC 0.0 /100 WBC Normal 0.0 - 0.0 [facility] Comment on above: Performed By: #### C BC ####[address] [address] Platelets (Bld) [#/Vol] 175 10*3/uL Normal 150 - 450 [facility] Comment on above: Performed By: #### C BC ####[address] [address] RBC 3.18 x10E12/L Low 4.00 - 5.20 [facility] Comment on above: Performed By: #### C BC ####[address] [address] WBC (Bld) [#/Vol] 4.1 10*3/uL Low 4.4 - 11.3 [facility] Comment on above: Performed By: #### C BC ####[address] [address] COMPREHENSIVE PANELon 2021 Albumin [Mass/Vol] 3.8 g/dL Normal 3.4 - 5.0 [facility] Comment on above: Performed By: #### C MP ####[address] [address] ALP [Catalytic activity/Vol] 41 U/L Normal 33 - 110 [facility] Comment on above: Performed By: #### C MP ####[address] [address] ALT [Catalytic activity/Vol] 12 U/L Normal 7 - 45 [facility] Comment on above: Result Comment: Elma ents treated with Sulfasalazine may generate falsely decreased results for ALT. Performed By: #### C MP ####[address] [address] Anion gap [Moles/Vol] 16 mmol/L Normal 10 - 20 [facility] Comment on above: Performed By: #### C MP ####[address] [address] AST [Catalytic activity/Vol] 15 U/L Normal 9 - 39 [facility] Comment on above: Performed By: #### C MP ####[address] [address] Bilirubin [Mass/Vol] 0.6 mg/dL Normal 0.0 - 1.2 [facility] Comment on above: Performed By: #### C MP ####[address] [address] Calcium [Mass/Vol] 8.7 mg/dL Normal 8.6 - 10.3 [facility] Comment on above: Performed By: #### C MP ####[address] [address] Chloride [Moles/Vol] 102 mmol/L Normal 98 - 107 [facility] Comment on above: Performed By: #### C MP ####[address] [address] Creatinine [Mass/Vol] 9.68 mg/dL High 0.50 - 1.05 [facility] Comment on above: Performed By: #### C MP ####[address] [address] GFR/1.73 sq M.predicted among non-blacks MDRD (S/P/Bld) [Vol rate/Area] 5 mL/min/{1.73_m2} Abnormal >90 [facility] Comment on above: Result Comment: CALC ULATIONS OF ESTIMATED GFR ARE PERFORMED USING THE 2020 CKD-EPI STUDY REFIT EQUATION WITHOUT THE RACE VARIABLE FOR THE IDMS-TRACEABLE CREATININE METHODS.https://jasn.asnjournals.org/content/early//ASN. 8560342369 Performed By: #### C MP ####[address] [address] Glucose [Mass/Vol] 84 mg/dL Normal 74 - 99 [facility] Comment on above: Performed By: #### C MP ####[address] [address] HCO3 (Bld) [Moles/Vol] 25 mmol/L Normal 21 - 32 [facility] Comment on above: Performed By: #### C MP ####[address] [address] Potassium [Moles/Vol] 3.7 mmol/L Normal 3.5 - 5.3 [facility] Comment on above: Performed By: #### C MP ####[address] [address] Protein [Mass/Vol] 5.9 g/dL Low 6.4 - 8.2 [facility] Comment on above: Performed By: #### C MP ####[address] [address] Sodium [Moles/Vol] 139 mmol/L Normal 136 - 145 [facility] Comment on above: Performed By: #### C MP ####[address] [address] Urea nitrogen [Mass/Vol] 43 mg/dL High 6 - 23 [facility] Comment on above: Performed By: #### C MP ####[address] [place] [address] Clinical Event Noteon 2021 Clinical Event Note Normal [facility] [place], [place] Clinical Intervention - Phar macyon 08-22-2021 Clinical Intervention - Pharmacy Normal [facility] Consult-Nephrologyon 022 Consult-Nephrology Normal [facility] Discharge Planning [id number] 08-22-2021 Discharge Planning Note2 Normal [facility] Discharge [id number] 022 Discharge Profile2 Normal [facility] HEPATITIS B SURF ABon 2021 HEP B SURF AB <3.1 Normal <10 [facility] Comment on above: Result Comment: INTE RPRETIVE CRITERIA:<10 mIU/mL....NONREACTIVE>=10 mIU/mL...REACTIVE. Biotin interference may cause falsely decreased results. Patients taking a Biotin dose of up to 5 mg/day should refrain from taking Biotin for 24 hours before sample collection. Providers may contact their local laboratory for further information. Performed By: #### H BAB3 ####[id number] [place] [address] Lab Specimen Source Normal [facility] [place], [place] Comment on above: Performed By: #### H BAB3 ####[id number] [place] [address] Performed By: #### H BSAG ####[id number] [id number] HEPATITIS B SURFACE AGon HEP.B SURFACE AG Non-Reactive Normal NONREACTIVE [facility] [place], [place] Comment on above: Result Comment: Biot in interference may cause falsely decreased results. Patients taking a Biotin dose of up to 5 mg/day should refrain from taking Biotin for 24 hours before sample collection. Providers may contact their local laboratory for further information. Performed By: #### H BSAG ####[id number] [id number] LACTATE/LACTIC ACIDon 2021 Lactate [Moles/Vol] 0.6 mmol/L Normal 0.4-1.9 [facility] Comment on above: Performed By: #### L ACT #### [facility] [address] [place], [place] [address] Dr. Ceci Cali Order Reconciliationon 08-22 Order Reconciliation Normal [facility] Patient Profile - Adult v2on 08-22-2021 Patient Profile - Adult v2 Normal [facility] UA MICROSCOPICon 08-22-2021 RBC (U) [#/Vol] /uL Abnormal 0-5 [facility] Comment on above: Performed By: #### U AMIC ####[address] [address] SQUAMOUS EPITH. CELLS 17 /HPF Normal [facility] Comment on above: Performed By: #### U AMIC ####[address] [address] WBC 5-20 Abnormal 0-5 [facility] Comment on above: Performed By: #### U AMIC ####[address] [address] URINALYSIS WITH CULTURE IF I NDICATEDon 08-22-2021 Bilirubin Ql (U) Negative Normal NEGATIVE [facility] Comment on above: Performed By: #### U ARFX ####[address] [address] Glucose Ql (U) Negative Normal NEGATIVE [facility] Comment on above: Performed By: #### U ARFX ####[address] [address] Ketones Ql (U) Negative Normal NEGATIVE [facility] Comment on above: Performed By: #### U ARFX ####[address] [address] Leukocyte esterase Test strip Ql (U) TRACE Abnormal NEGATIVE [facility] Comment on above: Performed By: #### U ARFX ####[address] [address] Nitrite Ql (U) Negative Normal NEGATIVE [facility] Comment on above: Performed By: #### U ARFX ####[address] [address] pH (U) 7.0 [pH] Normal 5.0 - 8.0 [facility] Comment on above: Performed By: #### U ARFX ####[address] [address] Protein Ql (U) 100(2+) Abnormal NEGATIVE [facility] Comment on above: Performed By: #### U ARFX ####[address] [address] Specific gravity (U) [Rel density] 1.013 Normal 1.005 - 1.035 [facility] Comment on above: Performed By: #### U ARFX ####[address] [address] Urobilinogen (U) [Mass/Vol] mg/dL Normal 0.0 - 1.9 [facility] Comment on above: Performed By: #### U ARFX ####[address] [address] Appearance (U) TURBID Normal CLEAR [facility] Comment on above: Performed By: #### U ARFX ####[address] [address] Color (U) RED Normal STRAW,YELLOW [facility] Comment on above: Performed By: #### U ARFX ####[address] [address] Hemoglobin Ql (U) LARGE (3+) Abnormal NEGATIVE [facility] Comment on above: Performed By: #### U ARFX ####[address] [address] URINE CULTURE,BACTERIALon URINE CULTURE,BACTERIAL Normal [facility] Comment on above: Performed By: #### U RINC ####[id number] [place] [address] CBC AUTO DIFFon 08-21-2021 BASO # 0.0 103/ul Normal 0.0-0.1 [facility] Comment on above: Performed By: #### C BC ####[facility] [address] [place], [place] [address]YmAilyn Cali Basophils/100 WBC (Bld) 0.9 % Normal 0.2-2.0 [facility] Comment on above: Performed By: #### C BC ####[facility] [address] [place], [place] [address]DrAilyn Cali EO # 0.1 103/ul Normal 0.0-0.7 [facility] Comment on above: Performed By: #### C BC ####[facility] [address] [place], [place] [address]DrAilyn Cali Eosinophils/100 WBC (Bld) 1.1 % Normal 0.9-7.0 [facility] Comment on above: Performed By: #### C BC ####[facility] [address] [place], [place] [address]DrAilyn Cali Erythrocyte distribution width (RBC) [Ratio] 17.3 % Critically high 11.0-15.0 [facility] Comment on above: Performed By: #### C BC ####[facility] Aj[address] [place], [place] [address]Dr. Ceci Cali Hematocrit (Bld) [Volume fraction] 34.7 % Critically low 36.0-48.0 [facility] Comment on above: Performed By: #### C BC ####[facility] [address]wkutpk[address] [place], [place] [address]Dr. Ceci Cali Hemoglobin (Bld) [Mass/Vol] 10.7 g/dL Critically low 12.0-16.0 [facility] Comment on above: Performed By: #### C BC ####[facility] [address] [place], [place] [address]DrAilyn Cali IG # 0.09 10e3/ul Critically high 0.00-0.03 [facility] Comment on above: Performed By: #### C BC ####[facility] [address] [place], [place] [address]DrAilyn Cali IG % 1.9 % Critically high 0.0-0.5 [facility] Comment on above: Performed By: #### C BC ####[facility] [address]cs[address] [place], [place] [address]Dr. Ceci Cali LYMPH # 0.7 103/ul Critically low 1.2-3.8 [facility] Comment on above: Performed By: #### C BC ####[facility] [address] [place] [address]DrAilyn Cali Lymphocytes/100 WBC (Bld) 15.9 % Critically low 20.5-60.0 [facility] Comment on above: Performed By: #### C BC ####[facility] [address] [place] [address]DrAilyn Cali MANUAL DIFF REQ NO Normal [facility] Comment on above: Performed By: #### C BC ####[facility] [address] [place] [address]Dr. Ceci Cali MCH (RBC) [Entitic mass] 33.0 pg Normal 26.7-34.0 [facility] Comment on above: Performed By: #### C BC ####[facility] [address] [place], [place] [address]Dr. Ceci Cali MCHC (RBC) [Mass/Vol] 30.8 g/dL Normal 29.9-35.2 [facility] Comment on above: Performed By: #### C BC ####[facility] [address] [place], [place] [address]DrAilyn Cali MCV (RBC) [Entitic vol] 107.1 fL Critically high 81.0-99.0 [facility] Comment on above: Performed By: #### C BC ####[facility] [address]ib[address] [place], [place] [address]DrAilyn Cali MONO # 0.5 103/ul Normal 0.3-0.8 [facility] Comment on above: Performed By: #### C BC ####[facility] [address] [place], [place] [address]DrAilyn Cali Monocytes/100 WBC (Bld) 11.4 % Normal 1.7-12.0 [facility] Comment on above: Performed By: #### C BC ####[facility] [address] [place], [place] [address]DrAilyn Cail NEUT # 3.2 103/ul Normal 1.4-6.5 [facility] Comment on above: Performed By: #### C BC ####[facility] [address] [place] [address]Dr. Ceci Cali Neutrophils/100 WBC (Bld) 68.8 % Normal 43.0-75.0 [facility] Comment on above: Performed By: #### C BC ####[facility] [address] [place] [address]Dr. Ceci Cali Platelet mean volume (Bld) [Entitic vol] 10.4 fL Normal 9.5-13.5 [facility] Comment on above: Performed By: #### C BC ####[facility] [address] [place] [address]Dr. Ceci Cali PLT 198 103/ul Normal 150-450 [facility] Comment on above: Performed By: #### C BC ####[facility] [address] [place] [address]Dr. Ceci Cali RBC 3.24 106/ul Critically low 4.20-5.40 [facility] Comment on above: Performed By: #### C BC ####[facility] [address] [place] [address]DrAilyn Ceci Cali WBC 4.7 103/ul Normal 4.0-11.0 [facility] Comment on above: Performed By: #### C BC ####[facility] [address] [place] [address]DrAilyn Cali CULTURE BLOODon 08-21-2021 Microscopic examination of blood, culture Culture Observations: NO GROWTH AT 5 DAYS. Normal [facility] Comment on above: Performed By: #### Aman TRUJILLO FETIBC #### [facility] [address] [place] [address] Dr. Ceci Cali Microscopic examination of blood, culture Culture Observations: NO GROWTH AT 5 DAYS. Normal [facility] Comment on above: Performed By: #### B LDCX1 #### [facility] [address] [place] [address] Dr. Ceci Cali [facility]on SARS-CoV-2 (COVID-19) RNA KAUSHAL+probe Ql (Unsp spec) Not detected Normal NOT DETECTED [facility] Comment on above: Result Comment: When diagnostic testing is negative, the possibility of a false negative should be considered in the context of a patient's recent exposures and the presence of clinical signs and symptoms consistent with SARS-CoV-2. This test is not yet approved or cleared by the [place] FDA. When there are no FDA-approved or cleared tests available, and other criteria are met, FDA can make tests available under an emergency access mechanism called an Emergency Use Authorization (EUA). The EUA for this test is supported by the Water [employer] Captain of Health and Human Service's declaration that circumstances exist to justify the emergency use of in vitro diagnostics for the detection and/or diagnosis of the virus that causes COVID-19. This EUA will remain in effect for the duration of the COVID-19 declaration justifying emergency of IVDs, unless it is terminated or revoked by the FDA (after which the test may no longer be used). Performed By: #### P HVEN #### [facility] [address] [place] [address] Dr. Ceci Cali INFLUENZA A AND B AGon 08-21 INFLUANEGH SEE BELOW Normal [facility] Comment on above: Result Comment: Nega tive for Flu A protein angiten. Infection due to Flu A cannot be ruled out. Flu A angiten in the sample may be below the detection limit of the test. Performed By: #### I NFLUAB #### [facility] [address] [place] [address] Dr. Ceci Cali INFLUBNEGH SEE BELOW Normal [facility] Comment on above: Result Comment: Nega tive for Flu B protein antigen. Infection due to Flu B cannot be ruled out. Flu B antigen in the sample may be below the detection limit of the test. Performed By: #### I NFLUAB #### [facility] [address] [place] [address] Dr. Ceci Cali INFLUENZA A AG Negative Normal NEGATIVE SEE COMMENT [facility] Comment on above: Performed By: #### I NFLUAB #### [facility] [address] [place] [address] [address] Ceci Cali INFLUENZA B AG Negative Normal NEGATIVE SEE COMMENT [facility] Comment on above: Performed By: #### I NFLUAB #### [facility] [address] [place] [address] [address] Ceci Cali INTERNAL CONTROLS Within Normal Limits Normal Wi thin Normal Limits [facility] Comment on above: Performed By: #### I NFLUAB #### [facility] [address] [place] [address] [address] Ceci Cali LACTATE/LACTIC ACIDon 2021 Lactate [Moles/Vol] 1.0 mmol/L Normal 0.4-1.9 [facility] Comment on above: Performed By: #### P HVEN #### [facility] [address] [place] [address] Dr. Ceci Cali PROF CHEM 8 (BAS METB)on Anion gap [Moles/Vol] 12.7 mmol/L Normal [facility] Comment on above: Performed By: #### B MP ####[facility] [address] [place] [address]DrAilyn Cali Calcium [Mass/Vol] 8.6 mg/dL Normal 8.5-10.1 [facility] Comment on above: Performed By: #### B MP ####[facility] [address] [place] [address]DrAilyn Clai Chloride [Moles/Vol] 101 mmol/L Normal 98-107 [facility] Comment on above: Performed By: #### B MP ####[facility] [address] [place] [address]DrAilyn Cali CO2 [Moles/Vol] 26.0 mmol/L Normal 21.0-32.0 [facility] Comment on above: Performed By: #### B MP ####[facility] [address] [place] [address]DrAilyn Cali Creatinine [Mass/Vol] 8.71 mg/dL Critically high 0.55-1.02 [facility] Comment on above: Performed By: #### B MP ####[facility] [address] [place] [address]Dr. Ceci Cali EGFR-AF LEBANESE 6 mL/min/1.73m2 Critically low >=60 [facility] Comment on above: Performed By: #### B MP ####[facility] [address] [place] [address]Dr. Ceci Cali EGFR-NON AF LEBANESE 5 mL/min/1.73m2 Critically low >=60 [facility] Comment on above: Performed By: #### B MP ####[facility] [address] [place] [address]Dr. Ceci Cali Glucose [Mass/Vol] 93 mg/dL Normal 74-106 [facility] Comment on above: Performed By: #### B MP ####[facility] [address] [place] [address]Dr. Ceci Cali Potassium [Moles/Vol] 3.7 mmol/L Normal 3.5-5.1 [facility] Comment on above: Performed By: #### B MP ####[facility] [address] [place] [address]Dr. Ceci Cali Sodium [Moles/Vol] 136 mmol/L Normal 136-145 [facility] Comment on above: Performed By: #### B MP ####[facility] [address] [place] [address]Dr. Ceci Cali Urea nitrogen [Mass/Vol] 46.0 mg/dL Critically high 7.0-18.0 [facility] Comment on above: Performed By: #### B MP ####[facility] [address] [place] [address]Dr. Ceci Cali Urea nitrogen/Creatinine [Mass ratio] 5.3 mg/mg Normal [facility] Comment on above: Performed By: #### B MP ####[facility] [address] [place] [address]Dr. Ceci Cali XR CHEST 1 Von 08-21-2021 XR CHEST 1 V EXAM: XR CHEST 1 V a t 1928 hours HISTORY: SHORTNESS OF BREATH COMPARISON: 04/03/2021 TECHNIQUE: AP upright portable chest x-ray FINDINGS: The heart is not enlarged and the vasculature is not distended. No acute infiltrate, effusion or pneumothorax is identified. There has been interval placement of a left subclavian central venous large bore catheter with the tip at the junction of the superior vena cava and right atrium. The osseous structures are intact. IMPRESSION: There is no evidence of a focal infiltrate, pneumothorax or cardiac decompensation after placement of the right-sided central venous catheter. The overall appearance of the chest is otherwise unchanged. Electronically authenticated by: LOU SAWANT Date: 2021-08-21 19:56 Normal [facility] Basophils Auto (Bld) [#/Vol] Ordered By: Robert Patel on 08-19-2021 Basophils (Bld) [#/Vol] 0.0 10*3/uL 0.0-0.2 [facility] Basophils/100 WBC Auto (Bld) Ordered By: Robert Patel on 08-19-2021 Basophils/100 WBC (Bld) 0.4 % . [facility] Blood hemoglobin measurement (mass/volume)Ordered By: Robert Patel on 08-19-2021 Hemoglobin (Bld) [Mass/Vol] 10.3 g/dL 11.8-15.4 [facility] Blood leukocytes automated c ount (number/volume)Ordered By: Robert Patel on 08-19-2021 WBC (Bld) [#/Vol] 8.2 10*3/uL 4.5-11.0 [facility] COVID-19 Positive/NegativeOr dered By: Robert Patel on 08-19-2021 SARS-CoV-2 (COVID-19) N gene KAUSHAL+probe Ql (Resp) Negative Negative [facility] Comment on above: Testing for SARS-CoV -2 by RT-PCR This test was developed and its performance characteristics determined by [employer] ([employer]) and validated at the [facility]. This test has not been FDA cleared or approved. This test has been authorized by FDA under an Emergency Use Authorization (EUA). This test has been validated in accordance with the FDA's Guidance Document (Policy for Diagnostics Testing in Laboratories Certified to Perform High Complexity Testing under CLIA prior to Emergency Use Authorization for Coronavirus Disease-2019 during the Public Health Emergency) issued on June 15, 2019. This test is only authorized for the duration of time the declaration that circumstances exist justifying the authorization of the emergency use of in vitro diagnostic tests for detection of SARS-CoV-2 virus and/or diagnosis of COVID-19 infection under section 564(b)(1) of the Act, 21 U.S.C. 360bbb-3(b)(1), unless the authorization is terminated or revoked sooner. Creatinine and Glomerular fi ltration rate.predicted panel (S/P/Bld)Ordered By: Robert Patel on 08-19-2021 Creatinine [Mass/Vol] 5.64 mg/dL 0.44-1.03 [facility] Eosinophils Auto (Bld) [#/Vo l]Ordered By: Robert Patel on 08-19-2021 Eosinophils (Bld) [#/Vol] 0.1 10*3/uL 0.0-0.45 [facility] Eosinophils/100 WBC Auto (Bl d)Ordered By: Robert Patel on 08-19-2021 Eosinophils/100 WBC (Bld) 0.6 % . [facility] Erythrocyte distribution wid th Auto (RBC) [Ratio]Ordered By: Robert Patel on 08-19-2021 Erythrocyte distribution width (RBC) [Ratio] 19.1 % 11.9-15.3 [facility] Estimated glomerular filtrat ion rate (GFR) non- AmericanOrdered By: Robert Patel on 08-19-2021 GFR/1.73 sq M.predicted among non-blacks MDRD (S/P/Bld) [Vol rate/Area] 8 mL/Min [facility] Hematocrit Auto (Bld) [Volum e fraction]Ordered By: Robert Patel on 08-19-2021 Hematocrit (Bld) [Volume fraction] 31.1 % 34.0-46.4 [facility] Laboratory - Hematology and Cell countsOrdered By: Robert Patel on 08-19-2021 Nucleated RBC/100 WBC (Bld) [Ratio] 0.0 % 0-0.5 [facility] Lymphocytes Auto (Bld) [#/Vo l]Ordered By: Robert Patel on 08-19-2021 Lymphocytes (Bld) [#/Vol] 0.6 10*3/uL 1.00-4.8 [facility] Lymphocytes/100 WBC Auto (Bl d)Ordered By: Robert Patel on 08-19-2021 Lymphocytes/100 WBC (Bld) 7.5 % . [facility] MCH Auto (RBC) [Entitic mass ]Ordered By: Robert Patel on 08-19-2021 MCH (RBC) [Entitic mass] 34.0 pg 24.7-34.3 [facility] MCHC Auto (RBC) [Mass/Vol]Or dered By: Robert Patel on 08-19-2021 MCHC (RBC) [Mass/Vol] 33.0 g/dL 32.0-35.0 [facility] MCV Auto (RBC) [Entitic vol] Ordered By: Robert Patel on 08-19-2021 MCV (RBC) [Entitic vol] 103.0 fL 80-100 [facility] Monocytes Auto (Bld) [#/Vol] Ordered By: Robert Patel on 08-19-2021 Monocytes (Bld) [#/Vol] 0.6 10*3/uL 0.0-0.8 [facility] Monocytes/100 WBC Auto (Bld) Ordered By: Robert Patel on 08-19-2021 Monocytes/100 WBC (Bld) 7.1 % . [facility] Neutrophils Auto (Bld) [#/Vo l]Ordered By: Robert Patel on 08-19-2021 Neutrophils (Bld) [#/Vol] 6.9 10*3/uL 1.8-7.7 [facility] Neutrophils/100 WBC Auto (Bl d)Ordered By: Robert Patel on 08-19-2021 Neutrophils/100 WBC (Bld) 84.4 % . [facility] No Panel InformationOrdered By: Robert Patel on 08-19-2021 Estimated GFR () 10 mL/Min [facility] Comment on above: GFR estimated refere nce range: According to KDOQI guidelines, <60 ml/min/1.73m2 is sufficient to diagnose a patient with chronic kidney disease. Pharmacy Creatinine Clearance (Chem N/A [facility] Platelet mean volume Auto (B ld) [Entitic vol]Ordered By: Robert Patel on 08-19-2021 Platelet mean volume (Bld) [Entitic vol] 8.3 fL 6.3-10.7 [facility] Platelets Auto (Bld) [#/Vol] Ordered By: Robert Patel on 08-19-2021 Platelets (Bld) [#/Vol] 227 10*3/uL 150-450 [facility] RBC Auto (Bld) [#/Vol]Ordere d By: Robert Patel on 08-19-2021 RBC (Bld) [#/Vol] 3.02 10*6/uL 3.60-5.00 [facility] Serum or plasma calcium josé urement (mass/volume)Ordered By: Robert Patel on 08-19-2021 Calcium [Mass/Vol] 8.5 mg/dL 8.2-10.2 [facility] Serum or plasma chloride eliana surement (moles/volume)Ordered By: Robert Patel on 08-19-2021 Chloride [Moles/Vol] 95 mmol/L 95-114 [facility] Serum or plasma glucose josé urement (mass/volume)Ordered By: Robert Patel on 08-19-2021 Glucose [Mass/Vol] 142 mg/dL 70-100 [facility] Comment on above: ADA recommended refe rence range Random Glucose Reference Range is dependent on time and content of last meal. Glucose of more than 200 mg/dL in a nonstressed, ambulatory subject supports the diagnosis of Diabetes Mellitus. Serum or plasma potassium me asurement (moles/volume)Ordered By: Robert Patel on 08-19-2021 Potassium [Moles/Vol] 3.8 mmol/L 3.5-5.1 [facility] Serum or plasma sodium measu rement (moles/volume)Ordered By: Robert Patel on 08-19-2021 Sodium [Moles/Vol] 136 mmol/L 136-146 [facility] Serum or plasma total carbon dioxide measurement (moles/volume)Ordered By: Robert Patel on 08-19-2021 CO2 [Moles/Vol] 28.9 mmol/L 22.0-30.0 [facility] Serum or plasma urea nitroge n measurement (mass/volume)Ordered By: Robert Patel on 08-19-2021 Urea nitrogen [Mass/Vol] 21 mg/dL 9- [facility] DXA-AXIAL SKELETONon 022 [facility] ERCPon 08-06-2021 [facility] XR CHEST 2V FRONTAL/LATon [facility] US ABD RT UPPER QUADRANTon 0 07-17-2021 [facility] SARS-CoV-2 (COVID-19) RNA NA A+probe Ql (Resp)on 06-18-2021 SARS-CoV-2 (COVID-19) RNA KAUSHAL+probe Ql (Unsp spec) Negative [facility] BASIC METABOLIC PANELon 02- Anion gap [Moles/Vol] 19 mmol/L Normal 10 - 20 [facility] Comment on above: Performed By: #### B MP ####[id number] [place] [address] Calcium [Mass/Vol] 7.4 mg/dL Low 8.6 - 10.3 [facility] Comment on above: Performed By: #### B MP ####[address] [address] Chloride [Moles/Vol] 101 mmol/L Normal 98 - 107 [facility] Comment on above: Performed By: #### B MP ####[address] [address] Creatinine [Mass/Vol] 9.23 mg/dL High 0.50 - 1.05 [facility] Comment on above: Performed By: #### B MP ####[address] [address] GFR/1.73 sq M.predicted among non-blacks MDRD (S/P/Bld) [Vol rate/Area] 5 mL/min/{1.73_m2} Abnormal >90 [facility] Comment on above: Result Comment: CALC ULATIONS OF ESTIMATED GFR ARE PERFORMED USING THE 2020 CKD-EPI STUDY REFIT EQUATION WITHOUT THE RACE VARIABLE FOR THE IDMS-TRACEABLE CREATININE METHODS.https://jasn.asnjournals.org/content/early/ASN. 2996475163 Performed By: #### B MP ####[address] [address] Glucose [Mass/Vol] 127 mg/dL High 74 - 99 [facility] Comment on above: Performed By: #### B MP ####[address] [address] HCO3 (Bld) [Moles/Vol] 22 mmol/L Normal 21 - 32 [facility] Comment on above: Performed By: #### B MP ####[address] [address] Potassium [Moles/Vol] 5.2 mmol/L Normal 3.5 - 5.3 [facility] Comment on above: Performed By: #### B MP ####[address] [address] Sodium [Moles/Vol] 137 mmol/L Normal 136 - 145 [facility] Comment on above: Performed By: #### B MP ####[address] [address] Urea nitrogen [Mass/Vol] 90 mg/dL High 6 - 23 [facility] Comment on above: Performed By: #### B MP ####[address] [address] CBCon 04-21-2021 Erythrocyte distribution width (RBC) [Ratio] 16.6 % High 11.5 - 14.5 [facility] Comment on above: Performed By: #### C BC ####[address] [address] Hematocrit (Bld) [Volume fraction] 25.7 % Low 36.0 - 46.0 [facility] Comment on above: Performed By: #### C BC ####[address] [address] Hemoglobin (Bld) [Mass/Vol] 8.3 g/dL Low 12.0 - 16.0 [facility] Comment on above: Performed By: #### C BC ####[address] [address] MCHC (RBC) [Mass/Vol] 32.3 g/dL Normal 32.0 - 36.0 [facility] Comment on above: Performed By: #### C BC ####[address] [address] MCV (RBC) [Entitic vol] 90 fL Normal 80 - 100 [facility] Comment on above: Performed By: #### C BC ####[address] [address] NUCLEATED RBC 0.0 /100 WBC Normal 0.0 - 0.0 [facility] Comment on above: Performed By: #### C BC ####[address] [address] Platelets (Bld) [#/Vol] 174 10*3/uL Normal 150 - 450 [facility] Comment on above: Performed By: #### C BC ####[address] [address] RBC 2.86 x10E12/L Low 4.00 - 5.20 [facility] Comment on above: Performed By: #### C BC ####[address] [address] WBC (Bld) [#/Vol] 21.1 10*3/uL High 4.4 - 11.3 [facility] [place] [place] Comment on above: Performed By: #### C BC ####[address] [address] Daily Progress Note-Nephrolo gyon 04-21-2021 Daily Progress Note-Nephrology Normal [facility] Discharge Eabjeis1uc 022 Discharge Profile2 Normal [facility] GLUCOSE-POCTon 04-21-2021 Glucose [Mass/Vol] 141 mg/dL High 74 - 99 [facility] Comment on above: Performed By: #### G ОЛЬГА ####[facility] [place] [address] Glucose [Mass/Vol] 131 mg/dL High 74 - 99 [facility] Comment on above: Performed By: #### G ОЛЬГА ####[facility] [place] [address] Glucose [Mass/Vol] 129 mg/dL High 74 - 99 [facility] Comment on above: Performed By: #### G ОЛЬГА ####[facility] [place] [address] Laboratory - Chemistry and C hemistry - challengeon 04-21-2021 Glucose [Mass/Vol] 141 mg/dL above high threshold 74 - 99 [facility] [address] Work Phone: Glucose [Mass/Vol] 131 mg/dL above high threshold 74 - 99 [facility] [address] Work Phone: Glucose [Mass/Vol] 129 mg/dL above high threshold 74 - 99 [facility] [address] Work Phone: Anion gap [Moles/Vol] 19 mmol/L 10 - 20 [facility] [address] Work Phone: Calcium [Mass/Vol] 7.4 mg/dL below low threshold 8.6 - 10.3 [facility] [address] Work Phone: Chloride [Moles/Vol] 101 mmol/L 98 - 107 [facility] [address] Work Phone: CO2 [Moles/Vol] 22 mmol/L 21 - 32 [facility] [address] Work Phone: Creatinine [Mass/Vol] 9.23 mg/dL above high threshold See Below [facility] [address] Work Phone: Comment on above: Reference Range: 0.5 0 - 1.05 Glucose [Mass/Vol] 127 mg/dL above high threshold 74 - 99 [facility] [place] [address] Work Phone: Potassium [Moles/Vol] 5.2 mmol/L 3.5 - 5.3 [facility] [place] [address] Work Phone: Sodium [Moles/Vol] 137 mmol/L 136 - 145 [facility]eggy [facility]oyaa [place] [address] Work Phone: Urea nitrogen [Mass/Vol] 90 mg/dL above high threshold 6 - 23 -[facility] [place] [address] Work Phone: Laboratory - Hematology and Cell countson 04-21-2021 Erythrocyte distribution width (RBC) [Ratio] 16.6 % above high threshold See Below -[facility] [place] [address] Work Phone: Comment on above: Reference Range: 11. 5 - 14.5 Hematocrit (Bld) [Volume fraction] 25.7 % below low threshold See Below -[facility] [place] [address] Work Phone: Comment on above: Reference Range: 36. 0 - 46.0 Hemoglobin (Bld) [Mass/Vol] 8.3 g/dL below low threshold See Below -[facility] [place] [address] Work Phone: Comment on above: Reference Range: 12. 0 - 16.0 MCHC (RBC) [Mass/Vol] 32.3 g/dL See Below -[place] [address] Work Phone: Comment on above: Reference Range: 32. 0 - 36.0 MCV (RBC) [Entitic vol] 90 fL 80 - 100 [facility] [place] [address] Work Phone: Platelets (Bld) [#/Vol] 174 10*3/uL 150 - 450 [facility] 170 Work Phone: RBC (Bld) [#/Vol] 2.86 {x10E12/L} below low threshold See Below -Pul[facility]a ry [facility] 170 Work Phone: Comment on above: Reference Range: 4.0 0 - 5.20 WBC (Bld) [#/Vol] 21.1 10*3/uL above high threshold 4.4 - 11.3 -[facility] 170 Work Phone: MAGNESIUMon 04-21-2021 Magnesium [Mass/Vol] 2.00 mg/dL Normal 1.60 - 2.40 [facility] Comment on above: Performed By: #### M G ####[facility] [place] [address] Magnesium, Serumon Magnesium [Mass/Vol] 2.00 mg/dL See Below [facility] [place] [address] Work Phone: Comment on above: Reference Range: 1.6 0 - 2.40 No Panel Informationon 04-21 5 {mL/min/1.73m2} Abnormal >90 MP-Pul tamara [place] [address] Work Phone: Comment on above: CALCULATIONS OF RYLEE MATED GFR ARE PERFORMED USING THE 2020 CKD-EPI STUDY REFIT EQUATION WITHOUT THE RACE VARIABLE FOR THE IDMS-TRACEABLE CREATININE METHODS.https://jasn.asnjournals.org/content//ASN. 8577381803 0.0 {/100_WBC} 0.0 - 0.0 -[facility] 170 Work Phone: Order Reconciliationon 04-21 Order Reconciliation Normal [facility] BASIC METABOLIC PANELon Anion gap [Moles/Vol] 15 mmol/L Normal 10 - 20 [facility] Comment on above: Performed By: #### B MP ####[address] [place] [address] Calcium [Mass/Vol] 7.2 mg/dL Low 8.6 - 10.3 [facility] [place] Comment on above: Performed By: #### B MP ####[address] [place] [address] Chloride [Moles/Vol] 102 mmol/L Normal 98 - 107 [facility] [place] [facility] Comment on above: Performed By: #### B MP ####[address] [address] Creatinine [Mass/Vol] 7.65 mg/dL High 0.50 - 1.05 [facility] [place] [facility] Comment on above: Performed By: #### B MP ####[address] [address] GFR/1.73 sq M.predicted among non-blacks MDRD (S/P/Bld) [Vol rate/Area] 6 mL/min/{1.73_m2} Abnormal >90 [facility] [place] [facility] Comment on above: Result Comment: CALC ULATIONS OF ESTIMATED GFR ARE PERFORMED USING THE 2020 CKD-EPI STUDY REFIT EQUATION WITHOUT THE RACE VARIABLE FOR THE IDMS-TRACEABLE CREATININE METHODS.https://jasn.asnjournals.org/content//ASN. 6940910570 Performed By: #### B MP ####[address] [place] [address] Glucose [Mass/Vol] 139 mg/dL High 74 - 99 [facility] Comment on above: Performed By: #### B MP ####[address] [place] [address] HCO3 (Bld) [Moles/Vol] 25 mmol/L Normal 21 - 32 [facility] [place] [facility] Comment on above: Performed By: #### B MP ####[address] [place] [address] Potassium [Moles/Vol] 4.7 mmol/L Normal 3.5 - 5.3 [facility] [place] [facility] Comment on above: Performed By: #### B MP ####[address] [place] [address] Sodium [Moles/Vol] 137 mmol/L Normal 136 - 145 [facility] Comment on above: Performed By: #### B MP ####[address] [place] [address] Urea nitrogen [Mass/Vol] 70 mg/dL High 6 - 23 [facility] Comment on above: Performed By: #### B MP ####[address] [place] [address] CBCon 04-20-2021 Erythrocyte distribution width (RBC) [Ratio] 16.4 % High 11.5 - 14.5 [facility] Comment on above: Performed By: #### C BC ####[address] [place] [address] Hematocrit (Bld) [Volume fraction] 25.1 % Low 36.0 - 46.0 [facility] Comment on above: Performed By: #### C BC ####[address] [place] [address] Hemoglobin (Bld) [Mass/Vol] 8.0 g/dL Low 12.0 - 16.0 [facility] Comment on above: Performed By: #### C BC ####[address] [place] [address] MCHC (RBC) [Mass/Vol] 31.9 g/dL Low 32.0 - 36.0 [facility] Comment on above: Performed By: #### C BC ####[address] [place] [address] MCV (RBC) [Entitic vol] 91 fL Normal 80 - 100 [facility] Comment on above: Performed By: #### C BC ####[address] [place] [address] NUCLEATED RBC 0.0 /100 WBC Normal 0.0 - 0.0 [facility] Comment on above: Performed By: #### C BC ####[address] [place] [address] Platelets (Bld) [#/Vol] 147 10*3/uL Low 150 - 450 [facility] Comment on above: Performed By: #### C BC ####[facility] [place] [address] RBC 2.76 x10E12/L Low 4.00 - 5.20 [facility] Comment on above: Performed By: #### C BC ####[address] [address] WBC (Bld) [#/Vol] 19.3 10*3/uL High 4.4 - 11.3 [facility] [place] [place] Comment on above: Performed By: #### C BC ####[address] [address] CRYOGLOBULINon 04-20-2021 CRYOGLOBULIN NEG 72Hour Normal NEG 72Hour [facility] Comment on above: Result Comment: This test was developed and its performance characteristicsdetermined by [employer]. It has not been cleared orapproved by the [place] Food and Drug Administration. This test wasperformed in a CLIA certified laboratory and is intended forclinical purposes.Performed By: [facility] [place], [place] [address]Ltre[employer]map Director: Niecy Conklin MD Performed By: #### Natalio CAMILOOG ####[facility] [place] [address] Daily Progress Note-Medicine on 04-20-2021 Daily Progress Note-Medicine Normal [facility] Daily Progress Note-Nephrolo gyon 04-20-2021 Daily Progress Note-Nephrology Normal [facility] GLUCOSE-POCTon 04-20-2021 Glucose [Mass/Vol] 252 mg/dL High 74 - 99 [facility] Comment on above: Performed By: #### G ОЛЬГА ####[place] [id number] [place] [address] Glucose [Mass/Vol] 159 mg/dL High 74 - 99 MP-Pul sue ry Medicine-[facility] 170 Work Phone: Comment on above: Performed By: #### G ОЛЬГА ####[facility] [place] [address] Glucose [Mass/Vol] 123 mg/dL High 74 - 99 [facility] Comment on above: Performed By: #### G ОЛЬГА ####[facility] [place] [address] Glucose [Mass/Vol] 346 mg/dL High 74 - 99 [facility] Comment on above: Performed By: #### G ОЛЬГА ####[facility] [place] [address] Laboratory - Chemistry and C hemistry - challengeon 04-20-2021 Glucose [Mass/Vol] 252 mg/dL above high threshold 74 - 99 MP-Pulmona ry Medicine-[facility] 170 Work Phone: Glucose [Mass/Vol] 123 mg/dL above high threshold 74 - 99 MP-[facility]a ry [facility] 170 Work Phone: Glucose [Mass/Vol] 346 mg/dL above high threshold 74 - 99 MP-[facility]a ry [facility] 170 Work Phone: Anion gap [Moles/Vol] 15 mmol/L 10 - 20 MP-[facility]a ry Medicine-[facility] 170 Work Phone: Calcium [Mass/Vol] 7.2 mg/dL below low threshold 8.6 - 10.3 MP-[facility]a ry Medicine-[facility] 170 Work Phone: Chloride [Moles/Vol] 102 mmol/L 98 - 107 MP-[facility]a ry Medicine-[facility] 170 Work Phone: CO2 [Moles/Vol] 25 mmol/L 21 - 32 MP-Pulmon a ry Medicine-[facility] 170 Work Phone: Creatinine [Mass/Vol] 7.65 mg/dL above high threshold See Below MP-Pul[place]a ry Medicine-[place] [address] Work Phone: Comment on above: Reference Range: 0.5 0 - 1.05 Glucose [Mass/Vol] 139 mg/dL above high threshold 74 - 99 -[facility] [address] Work Phone: Potassium [Moles/Vol] 4.7 mmol/L 3.5 - 5.3 [facility] [place] [address] Work Phone: Sodium [Moles/Vol] 137 mmol/L 136 - 145 -Peggy montoyaa [place] [address] Work Phone: Urea nitrogen [Mass/Vol] 70 mg/dL above high threshold 6 - 23 -[facility] [address] Work Phone: Laboratory - Hematology and Cell countson 04-20-2021 Erythrocyte distribution width (RBC) [Ratio] 16.4 % above high threshold See Below [facility] [place] [address] Work Phone: Comment on above: Reference Range: 11. 5 - 14.5 Hematocrit (Bld) [Volume fraction] 25.1 % below low threshold See Below [facility] [place] [address] Work Phone: Comment on above: Reference Range: 36. 0 - 46.0 Hemoglobin (Bld) [Mass/Vol] 8.0 g/dL below low threshold See Below [facility] [place] [address] Work Phone: Comment on above: Reference Range: 12. 0 - 16.0 MCHC (RBC) [Mass/Vol] 31.9 g/dL below low threshold See Below [facility] [place] [address] Work Phone: Comment on above: Reference Range: 32. 0 - 36.0 MCV (RBC) [Entitic vol] 91 fL 80 - 100 [facility] [place] [address] Work Phone: Platelets (Bld) [#/Vol] 147 10*3/uL below low threshold 150 - 450 -[facility] 170 Work Phone: RBC (Bld) [#/Vol] 2.76 {x10E12/L} below low threshold See Below -Pul[facility]a ry [facility] 170 Work Phone: Comment on above: Reference Range: 4.0 0 - 5.20 WBC (Bld) [#/Vol] 19.3 10*3/uL above high threshold 4.4 - 11.3 -[facility] 170 Work Phone: No Panel Informationon 04-20 6 {mL/min/1.73m2} Abnormal >90 MP[facility] 170 Work Phone: Comment on above: CALCULATIONS OF RYLEE MATED GFR ARE PERFORMED USING THE 2020 CKD-EPI STUDY REFIT EQUATION WITHOUT THE RACE VARIABLE FOR THE IDMS-TRACEABLE CREATININE METHODS.https://jasn.asnjournals.org/content/early/ASN. 8877018618 0.0 {/100_WBC} 0.0 - 0.0 [facility] 170 Work Phone: BASIC METABOLIC PANELon Anion gap [Moles/Vol] 12 mmol/L Normal 10 - 20 [facility] Comment on above: Performed By: #### B MP ####[facility] [place] [address] Calcium [Mass/Vol] 7.3 mg/dL Low 8.6 - 10.3 [facility] Comment on above: Performed By: #### B MP ####[facility] [place] [address] Chloride [Moles/Vol] 101 mmol/L Normal 98 - 107 [facility] Comment on above: Performed By: #### B MP ####[place] [id number] [place] [address] Creatinine [Mass/Vol] 5.79 mg/dL High 0.50 - 1.05 [facility] Comment on above: Performed By: #### B MP ####[address] [address] GFR/1.73 sq M.predicted among non-blacks MDRD (S/P/Bld) [Vol rate/Area] 9 mL/min/{1.73_m2} Abnormal >90 [facility] Comment on above: Result Comment: CALC ULATIONS OF ESTIMATED GFR ARE PERFORMED USING THE 2020 CKD-EPI STUDY REFIT EQUATION WITHOUT THE RACE VARIABLE FOR THE IDMS-TRACEABLE CREATININE METHODS.https://jasn.asnjournals.org/content/early//ASN. 2432917682 Performed By: #### B MP ####[address] [address] Glucose [Mass/Vol] 104 mg/dL High 74 - 99 [facility] Comment on above: Performed By: #### B MP ####[address] [address] HCO3 (Bld) [Moles/Vol] 28 mmol/L Normal 21 - 32 [facility] Comment on above: Performed By: #### B MP ####[address] [address] Potassium [Moles/Vol] 4.2 mmol/L Normal 3.5 - 5.3 [facility] Comment on above: Performed By: #### B MP ####[address] [address] Sodium [Moles/Vol] 137 mmol/L Normal 136 - 145 [facility] Comment on above: Performed By: #### B MP ####[address] [address] Urea nitrogen [Mass/Vol] 51 mg/dL High 6 - 23 [facility] Comment on above: Performed By: #### B MP ####[address] [address] CBCon 04-19-2021 Erythrocyte distribution width (RBC) [Ratio] 16.5 % High 11.5 - 14.5 [facility] Comment on above: Performed By: #### C BC ####[address] [address] Hematocrit (Bld) [Volume fraction] 26.5 % Low 36.0 - 46.0 [facility] Comment on above: Performed By: #### C BC ####[address] [address] Hemoglobin (Bld) [Mass/Vol] 8.4 g/dL Low 12.0 - 16.0 [facility] Comment on above: Performed By: #### C BC ####[address] [address] MCHC (RBC) [Mass/Vol] 31.7 g/dL Low 32.0 - 36.0 [facility] Comment on above: Performed By: #### C BC ####[address] [address] MCV (RBC) [Entitic vol] 89 fL Normal 80 - 100 [facility] Comment on above: Performed By: #### C BC ####[address] [address] NUCLEATED RBC 0.0 /100 WBC Normal 0.0 - 0.0 [facility] Comment on above: Performed By: #### C BC ####[address] [address] Platelets (Bld) [#/Vol] 116 10*3/uL Low 150 - 450 [facility] Comment on above: Performed By: #### C BC ####[address] [address] RBC 2.98 x10E12/L Low 4.00 - 5.20 [facility] Comment on above: Performed By: #### C BC ####[address] [address] WBC (Bld) [#/Vol] 18.7 10*3/uL High 4.4 - 11.3 [facility] [place] [place] Comment on above: Performed By: #### C BC ####[address] [address] Daily Progress Note-Medicine on 04-19-2021 Daily Progress Note-Medicine Normal [facility] Daily Progress Note-Nephrolo gyon 04-19-2021 Daily Progress Note-Nephrology Normal [facility] Electrocardiogram 12 Leadon 04-19-2021 Electrocardiogram 12 Lead Ventricular Rate 107 Atrial Rate 107 P-R Interval 142 QRS Duration 70 Q-T Interval 338 QTC Calculation(Bazett) 451 P [place] 34 R [place] -5 T [place] 34 QRS Count 18 Q Onset 229 P Onset 158 P Offset 207 T Offset 398 QTC Fredericia 410 Diagnosis Class Borderline Abnormal Diagnosis Sinus tachycardia Otherwise normal ECG When compared with ECG of 15-APR-2021 14:22, No significant change was found Confirmed by JOI GILLILAND, STERLING ([id number]) on 05/12/2021 5:14:46 PM Normal [facility] [place] GLUCOSE-POCTon 04-19-2021 Glucose [Mass/Vol] 257 mg/dL High - [address] [place] [address] Comment on above: Performed By: #### G ОЛЬГА ####[address] [address] Glucose [Mass/Vol] 211 mg/dL High [address] [place] [address] Comment on above: Performed By: #### G ОЛЬГА ####[address] [address] Glucose [Mass/Vol] 130 mg/dL High - [address] [place] [address] Comment on above: Performed By: #### G ОЛЬГА ####[address] [address] Glucose [Mass/Vol] 126 mg/dL High [address] [place] [address] Comment on above: Performed By: #### G ОЛЬГА ####[address] [address] HGB + HCTon 04-19-2021 Hematocrit (Bld) [Volume fraction] 27.8 % Low 36.0 - 46.0 MP-Pulmona ry Medicine-[facility] 170 Work Phone: Comment on above: Reference Range: 36. 0 - 46.0 Performed By: #### H H ####[facility] [place] [address] Hemoglobin (Bld) [Mass/Vol] 8.9 g/dL Low 12.0 - 16.0 MP-Pul[facility]a ry Medicine-[facility] 170 Work Phone: Comment on above: Reference Range: 12. 0 - 16.0 Performed By: #### H H ####[facility] [place] [address] Laboratory - Chemistry and C hemistry - challengeon 04-19-2021 Glucose [Mass/Vol] 257 mg/dL above high threshold 74 - 99 MP-Pul[facility]a ry Medicine-[facility] 170 Work Phone: Glucose [Mass/Vol] 211 mg/dL above high threshold 74 - 99 MP-[facility]a ry [facility] 170 Work Phone: Glucose [Mass/Vol] 130 mg/dL above high threshold 74 - 99 MP-[facility]a ry [facility] 170 Work Phone: Glucose [Mass/Vol] 126 mg/dL above high threshold 74 - 99 MP-[facility]a ry [facility] 170 Work Phone: Anion gap [Moles/Vol] 12 mmol/L 10 - 20 MP-[facility]a ry Medicine-[facility] 170 Work Phone: Calcium [Mass/Vol] 7.3 mg/dL below low threshold 8.6 - 10.3 MP-[facility]a ry [facility] 170 Work Phone: Chloride [Moles/Vol] 101 mmol/L 98 - 107 MP-[facility]a ry [facility] 170 Work Phone: CO2 [Moles/Vol] 28 mmol/L 21 - 32 MP-Pulmon a ry Medicine-[facility] 170 Work Phone: Creatinine [Mass/Vol] 5.79 mg/dL above high threshold See Below -[place] [address] Work Phone: Comment on above: Reference Range: 0.5 0 - 1.05 Glucose [Mass/Vol] 104 mg/dL above high threshold 74 - 99 MP-P[facility] [place] [address] Work Phone: Potassium [Moles/Vol] 4.2 mmol/L 3.5 - 5.3 MP-[facility] [address] Work Phone: Sodium [Moles/Vol] 137 mmol/L 136 - 145 MP-Pul sue [place] [address] Work Phone: Urea nitrogen [Mass/Vol] 51 mg/dL above high threshold 6 - 23 -[place] [address] Work Phone: Laboratory - Hematology and Cell countson 04-19-2021 Erythrocyte distribution width (RBC) [Ratio] 16.5 % above high threshold See Below -[place] [address] Work Phone: Comment on above: Reference Range: 11. 5 - 14.5 Hematocrit (Bld) [Volume fraction] 26.5 % below low threshold See Below MP-[facility] [place] [address] Work Phone: Comment on above: Reference Range: 36. 0 - 46.0 Hemoglobin (Bld) [Mass/Vol] 8.4 g/dL below low threshold See Below MP-P[facility] [place] [address] Work Phone: Comment on above: Reference Range: 12. 0 - 16.0 MCHC (RBC) [Mass/Vol] 31.7 g/dL below low threshold See Below MP-[facility] [place] [address] Work Phone: Comment on above: Reference Range: 32. 0 - 36.0 MCV (RBC) [Entitic vol] 89 fL 80 - 100 -[facility] 170 Work Phone: Platelets (Bld) [#/Vol] 116 10*3/uL below low threshold 150 - 450 MP-Pulmona ry [facility] 170 Work Phone: RBC (Bld) [#/Vol] 2.98 {x10E12/L} below low threshold See Below -[place] [address] Work Phone: Comment on above: Reference Range: 4.0 0 - 5.20 WBC (Bld) [#/Vol] 18.7 10*3/uL above high threshold 4.4 - 11.3 [facility] 170 Work Phone: No Panel Informationon 04-19 9 {mL/min/1.73m2} Abnormal >90 MP-Pulm tamara [place] [address] Work Phone: Comment on above: CALCULATIONS OF RYLEE MATED GFR ARE PERFORMED USING THE 2020 CKD-EPI STUDY REFIT EQUATION WITHOUT THE RACE VARIABLE FOR THE IDMS-TRACEABLE CREATININE METHODS.https://jasn.asnjournals.org/content//ASN. 8600685348 0.0 {/100_WBC} 0.0 - 0.0 -[place] [address] Work Phone: CBCon 04-18-2021 HCT Canceled Normal [facility] Comment on above: Order Comment: TEST CBC WAS CANCELLED, 04/18/2021 08:04 dublicate order see [id number]. Performed By: #### C BC ####[facility] [place] [address] HGB Canceled Normal [facility] Comment on above: Order Comment: TEST CBC WAS CANCELLED, 04/18/2021 08:04 dublicate order see [id number]. Performed By: #### C BC ####[address] [place] [address] MCHC Canceled Normal [facility] Comment on above: Order Comment: TEST CBC WAS CANCELLED, 04/18/2021 08:04 dublicate order see [id number]. Performed By: #### C BC ####[address] [place] [address] MCV Canceled Normal [facility] Comment on above: Order Comment: TEST CBC WAS CANCELLED, 04/18/2021 08:04 dublicate order see [id number]. Performed By: #### C BC ####[address] [place] [address] NUCLEATED RBC Canceled Normal [facility] Comment on above: Order Comment: TEST CBC WAS CANCELLED, 04/18/2021 08:04 dublicate order see [id number]. Performed By: #### C BC ####[address] [place] [address] PLT Canceled Normal [facility] Comment on above: Order Comment: TEST CBC WAS CANCELLED, 04/18/2021 08:04 dublicate order see [id number]. Performed By: #### C BC ####[address] [place] [address] RBC Canceled Normal [facility] Comment on above: Order Comment: TEST CBC WAS CANCELLED, 04/18/2021 08:04 dublicate order see [id number]. Performed By: #### C BC ####[address] [place] [address] RDW-CV Canceled Normal [facility] Comment on above: Order Comment: TEST CBC WAS CANCELLED, 04/18/2021 08:04 dublicate order see [id number]. Performed By: #### C BC ####[address] [place] [address] WBC Canceled Normal [facility] Comment on above: Order Comment: TEST CBC WAS CANCELLED, 04/18/2021 08:04 dublicate order see [id number]. Performed By: #### C BC ####[address] [place] [address] Erythrocyte distribution width (RBC) [Ratio] 16.3 % High 11.5 - 14.5 [facility] Comment on above: Performed By: #### C BC ####[address] [place] [address] Hematocrit (Bld) [Volume fraction] 27.0 % Low 36.0 - 46.0 [facility] Comment on above: Performed By: #### C BC ####[address] [place] [address] Hemoglobin (Bld) [Mass/Vol] 8.7 g/dL Low 12.0 - 16.0 [facility] Comment on above: Performed By: #### C BC ####[address] [place] [address] MCHC (RBC) [Mass/Vol] 32.2 g/dL Normal 32.0 - 36.0 [facility] Comment on above: Performed By: #### C BC ####[address] [address] MCV (RBC) [Entitic vol] 88 fL Normal 80 - 100 [facility] Comment on above: Performed By: #### C BC ####[address] [place] [address] NUCLEATED RBC 0.0 /100 WBC Normal 0.0 - 0.0 [facility] Comment on above: Performed By: #### C BC ####[address] [place] [address] Platelets (Bld) [#/Vol] 112 10*3/uL Low 150 - 450 [facility] Comment on above: Performed By: #### C BC ####[address] [place] [address] RBC 3.07 x10E12/L Low 4.00 - 5.20 [facility] Comment on above: Performed By: #### C BC ####[address] [address] WBC (Bld) [#/Vol] 17.7 10*3/uL High 4.4 - 11.3 [facility] [place] [place] Comment on above: Performed By: #### C BC ####[address] [address] COMPREHENSIVE PANELon 2021 Albumin [Mass/Vol] 2.3 g/dL Low 3.4 - 5.0 [facility] Comment on above: Performed By: #### C MP ####[address] [address] ALP [Catalytic activity/Vol] 49 U/L Normal 33 - 110 [facility] Comment on above: Performed By: #### C MP ####[address] [address] ALT [Catalytic activity/Vol] 10 U/L Normal 7 - 45 [facility] Comment on above: Result Comment: Elma ents treated with Sulfasalazine may generate falsely decreased results for ALT. Performed By: #### C MP ####[address] [address] Anion gap [Moles/Vol] 13 mmol/L Normal 10 - 20 [facility] Comment on above: Performed By: #### C MP ####[address] [address] AST [Catalytic activity/Vol] 11 U/L Normal 9 - 39 [facility] Comment on above: Performed By: #### C MP ####[address] [address] Bilirubin [Mass/Vol] 0.8 mg/dL Normal 0.0 - 1.2 [facility] Comment on above: Performed By: #### C MP ####[address] [address] Calcium [Mass/Vol] 7.1 mg/dL Low 8.6 - 10.3 [facility] Comment on above: Performed By: #### C MP ####[address] [address] Chloride [Moles/Vol] 101 mmol/L Normal 98 - 107 [facility] Comment on above: Performed By: #### C MP ####[address] [address] Creatinine [Mass/Vol] 7.36 mg/dL High 0.50 - 1.05 [facility] Comment on above: Performed By: #### C MP ####[address] [address] GFR/1.73 sq M.predicted among non-blacks MDRD (S/P/Bld) [Vol rate/Area] 7 mL/min/{1.73_m2} Abnormal >90 [facility] Comment on above: Result Comment: CALC ULATIONS OF ESTIMATED GFR ARE PERFORMED USING THE 2020 CKD-EPI STUDY REFIT EQUATION WITHOUT THE RACE VARIABLE FOR THE IDMS-TRACEABLE CREATININE METHODS.https://jasn.asnjournals.org/content//ASN. 8133355389 Performed By: #### C MP ####[address] [address] Glucose [Mass/Vol] 112 mg/dL High 74 - 99 [facility] Comment on above: Performed By: #### C MP ####[address] [address] HCO3 (Bld) [Moles/Vol] 25 mmol/L Normal 21 - 32 [facility] Comment on above: Performed By: #### C MP ####[address] [address] Potassium [Moles/Vol] 4.4 mmol/L Normal 3.5 - 5.3 [facility] Comment on above: Performed By: #### C MP ####[address] [address] Protein [Mass/Vol] 5.0 g/dL Low 6.4 - 8.2 [facility] Comment on above: Performed By: #### C MP ####[address] [address] Sodium [Moles/Vol] 135 mmol/L Low 136 - 145 [facility] [place] Comment on above: Performed By: #### C MP ####[address] [address] Urea nitrogen [Mass/Vol] 77 mg/dL High 6 - 23 [facility] [place] Comment on above: Performed By: #### C MP ####[address] [address] [address] Biopsy Renal Percutns Tro car/Needleon 04-18-2021 CT Guidance for biopsy of Kidney Normal MP-P[facility]a ry Medicine-W sam [facility] 170 Work Phone: Daily Progress Note-Medicine on 04-18-2021 Daily Progress Note-Medicine Normal [facility] [place] [facility] Daily Progress Note-Nephrolo gyon 04-18-2021 Daily Progress Note-Nephrology Normal [facility] [place] GLUCOSE-POCTon 04-18-2021 Glucose [Mass/Vol] 148 mg/dL High 74 - 99 [facility] [place] Comment on above: Performed By: #### G ОЛЬГА ####[address] [address] Glucose [Mass/Vol] 124 mg/dL High 74 - 99 [facility] [place] Comment on above: Performed By: #### G ОЛЬГА ####[address] [address] Glucose [Mass/Vol] 128 mg/dL High 74 - 99 [facility] [place] Comment on above: Performed By: #### G ОЛЬГА ####[address] [address] Glucose [Mass/Vol] 162 mg/dL High 74 - 99 [facility] [place] Comment on above: Performed By: #### G ОЛЬГА ####[address] [address] IN BIOPSY RENAL PERCUTNS TRO CAR OR NDLon 04-18-2021 IN BIOPSY RENAL PERCUTNS TROCAR OR NDL Normal [facility] [place] Laboratory - Chemistry and C hemistry - challengeon 04-18-2021 Glucose [Mass/Vol] 148 mg/dL above high threshold 74 - 99 [facility] 170 Work Phone: Glucose [Mass/Vol] 124 mg/dL above high threshold 74 - 99 MP-P[facility]a ry [facility] 170 Work Phone: Albumin BCP dye [Mass/Vol] 2.3 g/dL below low threshold 3.4 - 5.0 [facility] 170 Work Phone: ALP [Catalytic activity/Vol] 49 U/L 33 - 110 -[facility] 170 Work Phone: ALT With P-5'-P [Catalytic activity/Vol] 10 U/L 7 - 45 MP-[facility] [place] [address] Work Phone: Comment on above: Patients treated wit h Sulfasalazine may generate falsely decreased results for ALT. Anion gap [Moles/Vol] 13 mmol/L 10 - 20 -[facility] 170 Work Phone: AST With P-5'-P [Catalytic activity/Vol] 11 U/L 9 - 39 -[facility] [place] [address] Work Phone: Bilirubin [Mass/Vol] 0.8 mg/dL 0.0 - 1.2 MP-[facility] [place] [address] Work Phone: Calcium [Mass/Vol] 7.1 mg/dL below low threshold 8.6 - 10.3 -[facility] [address] Work Phone: Chloride [Moles/Vol] 101 mmol/L 98 - 107 MP[facility] [place] [address] Work Phone: CO2 [Moles/Vol] 25 mmol/L 21 - 32 MP-[facility] [place] [address] Work Phone: Creatinine [Mass/Vol] 7.36 mg/dL above high threshold See Below [facility] [place] [facility] Work Phone: Comment on above: Reference Range: 0.5 0 - 1.05 Glucose [Mass/Vol] 112 mg/dL above high threshold 74 - 99 MP-[facility] ry [facility] 170 Work Phone: Potassium [Moles/Vol] 4.4 mmol/L 3.5 - 5.3 MP-[facility] ry [facility] 170 Work Phone: Protein [Mass/Vol] 5.0 g/dL below low threshold 6.4 - 8.2 [facility] [place] [facility] Work Phone: Sodium [Moles/Vol] 135 mmol/L below low threshold 136 - 145 MP-[facility] ry [facility] 170 Work Phone: Urea nitrogen [Mass/Vol] 77 mg/dL above high threshold 6 - 23 MP-[facility] ry [facility] 170 Work Phone: Glucose [Mass/Vol] 128 mg/dL above high threshold 74 - 99 MP-[facility] ry [place] [address] Work Phone: Laboratory - Coagulationon 0 04-18-2021 INR Coag (PPP) [Relative time] 1.2 {INR} above high threshold 0.9 - 1.1 [facility] [address] Work Phone: PT Coag (PPP) [Time] 13.7 s above high threshold 9.8 - 13.4 [facility] [address] Work Phone: Comment on above: Note new reference r alberto as of 02/11/2021 at 10:00am. Laboratory - Hematology and Cell countson 04-18-2021 Erythrocyte distribution width (RBC) [Ratio] 16.3 % above high threshold See Below MP-[facility] ry Medicine-W estlake [facility] 170 Work Phone: Comment on above: Reference Range: 11. 5 - 14.5 Hematocrit (Bld) [Volume fraction] 27.0 % below low threshold See Below [place] [address] Work Phone: Comment on above: Reference Range: 36. 0 - 46.0 Hemoglobin (Bld) [Mass/Vol] 8.7 g/dL below low threshold See Below [place] [address] Work Phone: Comment on above: Reference Range: 12. 0 - 16.0 MCHC (RBC) [Mass/Vol] 32.2 g/dL See Below [place] [address] Work Phone: Comment on above: Reference Range: 32. 0 - 36.0 MCV (RBC) [Entitic vol] 88 fL 80 - 100 [place] [address] Work Phone: Platelets (Bld) [#/Vol] 112 10*3/uL below low threshold 150 - 450 [place] [address] Work Phone: RBC (Bld) [#/Vol] 3.07 {x10E12/L} below low threshold See Below [place] [address] Work Phone: Comment on above: Reference Range: 4.0 0 - 5.20 WBC (Bld) [#/Vol] 17.7 10*3/uL above high threshold 4.4 - 11.3 [place] [address] Work Phone: MAGNESIUMon 04-18-2021 Magnesium [Mass/Vol] 1.80 mg/dL Normal 1.60 - 2.40 [facility] [place] [facility] Comment on above: Performed By: #### M G ####[facility] [place] [address] Magnesium, Serumon Magnesium [Mass/Vol] 1.80 mg/dL See Below MP-[facility] ry [facility] 170 Work Phone: Comment on above: Reference Range: 1.6 0 - 2.40 No Panel Informationon 04-18 7 {mL/min/1.73m2} Abnormal >90 MP[facility]m [facility] 170 Work Phone: Comment on above: CALCULATIONS OF RYLEE MATED GFR ARE PERFORMED USING THE 2020 CKD-EPI STUDY REFIT EQUATION WITHOUT THE RACE VARIABLE FOR THE IDMS-TRACEABLE CREATININE METHODS.https://jasn.asnjournals.org/content/early//ASN. 8316791470 0.0 {/100_WBC} 0.0 - 0.0 MP-[facility]a ry Medicine-W [facility] 170 Work Phone: PT/INRon 04-18-2021 PT Coag (PPP) [Time] 13.7 s High 9.8 - 13.4 [facility] Comment on above: Result Comment: Note new reference range as of 02/11/2021 at 10:00am. Performed By: #### P TINR ####[address] [address] PT, INR 1.2 High 0.9 - 1.1 [facility] [place] [facility] Comment on above: Performed By: #### P TINR ####[address] [address] Radiologyon 04-18-2021 US Kidney Normal MP-Pulmona ry Medicine-W [facility] 170 Work Phone: [facility] Surgical Pathology Depar tmenton 04-18-2021 [facility] Surgical Pathology Department Name MITA DUARTE Pathologist: KIKA PRADO M.D., M.S. 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 Of those with crescents, 4 are cellular crescents and 17 are fibrocellular crescents with associated rupture of Manjarrez's capsules. Of those with fibrocellular crescents, 6 show segmental sclerosis and 9 show breaks and corrugation in the GBM, and of these, 3 also demonstrate fibrinoid necrosis and 1 additionally has endocapillary fibrin thrombi. One glomerulus shows isolated secondary segmental sclerosis. In addition, one interlobular artery show fibrinoid necrosis of the vessel wall with associated inflammation. There are no immune complex deposits by IF or EM and there is no endocapillary hypercellularity. There is no anti-GBM staining by IF. 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 There is severe activity with the above-mentioned crescent formation, fibrinoid necrosis, and vasculitis of arteries. There is moderate chronicity with the above-mentioned fibrocellular crescents and segmental scars. Of note, rupture of Manjarrez's capsule is associate with irreparable injury to glomeruli. There is also diffuse interstitial edema, interstitial inflammatory infiltrate, and tubular injury that is likely in response to the glomerular insult. Electronically Signed Out By KIKA PRADO M.D., M.S./MK By the signature on this report, the individual or group listed as making the Final Interpretation/Diagnosis certifies that they have reviewed this case. Amendment Comments: Amended: 04/25/2021 Reason: Additional Pathology Material Corrected electron microscope images received; the electron microscopy report is then amended. Previous Signout Date: 04/24/2021 Microscopic Description: LIGHT MICROSCOPY: Multiple sections of the biopsy are prepared, including fourH AND E, four PAS, one Morales' silver, and one Trichrome stained slides. The biopsy consists of 3 pieces of cortex, containing 26 glomeruli, of which 21 show crescent formation. Of those with crescents, 4 are cellular crescents and 17 are fibrocellular crescents with associated rupture of Manjarrez's capsules, and of these, 6 show segmental sclerosis and 9 show breaks and corrugation in the GBM, of which 3 also demonstrate fibrinoid necrosis and 1 additionally has endocapillary fibrin thrombi. One glomerulus shows secondary segmental sclerosis. There is no increase in mesangial matrix or cellularity of the more intact glomeruli. There is no endocapillary proliferation of glomerular leatha. There is diffuse interstitial edema with less than 5% interstitial fibrosis and proportional tubular atrophy. There is a diffuse [id number] interstitial lymphocytic infiltrate with scattered plasma cells , occasional eosinophils, and frequent neutrophils particularly surrounding ruptured Manjarrez's capsules of damaged glomeruli. There is diffuse acute tubular injury. There are no crystals or polarizable material. Arterioles are unremarkable. There is mild hyalinosis of interlobular arteries and one interlobular artery shows fibrinoid necrosis of the vessel wall associated with transmural inflammation. Large arteries are not sampled. IMMUNOFLUORESCENCE MICROSCOPY: Replicate frozen sections, containing 5 glomeruli, of which 3 show crescent formation, are stained with antisera for IgG, IgA, IgM, C3, C1q, kappa, lambda, fibrinogen and albumin. On a scale of 0-3+, there is focal global granular mesangial and capillary loop staining for IgM (trace-1+) and diffuse global granular mesangial and segmental capillary loop staining for C3 (2+). Casts stain 2+ for IgA, IgM, and albumin, and 3+ for kappa and lambda. Intersitital plasma cells stain for IgA, IgM, kappa, and lambda. There is focal arteriolar staining for kappa and lambda. The stainings for IgG and C1q are negative. There is no specific staining for fibrinogen. The negative control for IF is negative. ELECTRON MICROSCOPY: Review of digitized Toluidine blue stains show 5 obliterated glomeruli with cellular crescents and rupture of Manjarrez's capsule. Evaluation of electron micrographs show several capillary loops with extensive corrugation and extraglomerular cellular proliferation. There are no subepithelial or subendothelial (more content not included)... Normal [facility] [place] Comment on above: Performed By: #### U [facility] #### [facility] Surgical Pathology Department [id number] [address] [facility] [address] RENAL UNILATon 04-18-2021 RENAL UNILAT Normal [facility] [place] [facility] ANCA-ASSOCIATED VASCULITIS P ROFILE [ANCA,MPO,PR3]on 04-17-2021 ANCA IFA PATTERN c-ANCA Abnormal None Detected [facility] [place] [place] Comment on above: Result Comment: INTE RPRETIVE INFORMATION: ANCA IFA PatternNeutrophil Cytoplasmic Antibodies (C-ANCA = granular cytoplasmicstaining, P-ANCA = perinuclear staining) are found in the serum ofover 90 percent of patients with certain necrotizing systemicvasculitides, and usually in less than 5 percent of patients withcollagen vascular disease or arthritis.Performed By: [facility] [place], [place] [address]Stkbtxmqhd Director: Niecy Conklin MD Performed By: #### A NCMP ####[facility] [place] [address] ANCA IFA TITER 1:320 High <1:20 [facility] Comment on above: Performed By: #### A NCMP ####[address] [address] MYELOPEROXIDASE AB 0 AU/mL Normal 0-19 [facility] [place] Comment on above: Result Comment: INTE RPRETIVE INFORMATION: Myeloperoxidase Abs, IgG 19 AU/mL or Less ......... Negative 20-25 AU/mL .............. Equivocal 26 AU/mL or Greater ...... PositiveApproximately 90% of patients with a P-ANCA pattern by IFA haveantibodies specific for MPO. Performed By: #### A NCMP ####[address] [address] PROTEINASE-3 1675 AU/mL High 0-19 [facility] Comment on above: Result Comment: INTE RPRETIVE INFORMATION: Serine Proteinase 3, IgG 19 AU/mL or Less ........ Negative 20-25 AU/mL ............. Equivocal 26 AU/mL or Greater ..... PositiveApproximately 85% of patients with a C-ANCA pattern by IFA haveantibodies specific for PR3. Performed By: #### A NCMP ####[address] [address] ANCA IFA TITER 1:640 High <1:20 [facility] Comment on above: Performed By: #### A NCMP ####[facility] [address] [place] [address] PROTEINASE-3 1319 AU/mL High 0-19 [facility] Comment on above: Result Comment: INTE RPRETIVE INFORMATION: Serine Proteinase 3, IgG 19 AU/mL or Less ........ Negative 20-25 AU/mL ............. Equivocal 26 AU/mL or Greater ..... PositiveApproximately 85% of patients with a C-ANCA pattern by IFA haveantibodies specific for PR3. Performed By: #### A NCMP ####[facility] [id number] [place] [address] CBCon 04-17-2021 Erythrocyte distribution width (RBC) [Ratio] 16.2 % High 11.5 - 14.5 [facility] Comment on above: Performed By: #### C BC ####[address] [address] Hematocrit (Bld) [Volume fraction] 26.2 % Low 36.0 - 46.0 [facility] Comment on above: Performed By: #### C BC ####[address] [address] Hemoglobin (Bld) [Mass/Vol] 8.4 g/dL Low 12.0 - 16.0 [facility] Comment on above: Performed By: #### C BC ####[address] [address] MCHC (RBC) [Mass/Vol] 32.1 g/dL Normal 32.0 - 36.0 [facility] Comment on above: Performed By: #### C BC ####[address] [address] MCV (RBC) [Entitic vol] 90 fL Normal 80 - 100 [facility] Comment on above: Performed By: #### C BC ####[address] [address] NUCLEATED RBC 0.0 /100 WBC Normal 0.0 - 0.0 [facility] Comment on above: Performed By: #### C BC ####[address] [address] Platelets (Bld) [#/Vol] 152 10*3/uL Normal 150 - 450 [facility] Comment on above: Performed By: #### C BC ####[address] [address] RBC 2.90 x10E12/L Low 4.00 - 5.20 [facility] Comment on above: Performed By: #### C BC ####[address] [address] WBC (Bld) [#/Vol] 13.2 10*3/uL High 4.4 - 11.3 [facility] [place] [place] Comment on above: Performed By: #### C BC ####[address] [address] COMPREHENSIVE PANELon 2021 Albumin [Mass/Vol] 2.4 g/dL Low 3.4 - 5.0 [facility] Comment on above: Performed By: #### C MP ####[address] [address] ALT [Catalytic activity/Vol] 12 U/L Normal 7 - 45 [facility] Comment on above: Result Comment: Elma ents treated with Sulfasalazine may generate falsely decreased results for ALT. Performed By: #### C MP ####[address] [address] AST [Catalytic activity/Vol] 11 U/L Normal 9 - 39 [facility] Comment on above: Performed By: #### C MP ####[address] [address] GFR/1.73 sq M.predicted among non-blacks MDRD (S/P/Bld) [Vol rate/Area] 10 mL/min/{1.73_m2} Abnormal >90 [facility] Comment on above: Result Comment: CALC ULATIONS OF ESTIMATED GFR ARE PERFORMED USING THE 2020 CKD-EPI STUDY REFIT EQUATION WITHOUT THE RACE VARIABLE FOR THE IDMS-TRACEABLE CREATININE METHODS.https://jasn.asnjournals.org/content/early//ASN. 1933509634 Performed By: #### C MP ####[address] [place] [address] HCO3 (Bld) [Moles/Vol] 25 mmol/L Normal 21 - 32 [facility] Comment on above: Performed By: #### C MP ####[address] [place] [address] ALP [Catalytic activity/Vol] 47 U/L Normal 33 - 110 [facility] [place] 170 Work Phone: Comment on above: Performed By: #### C MP ####[address] [place] [address] Anion gap [Moles/Vol] 14 mmol/L Normal 10 - 20 -[facility] 170 Work Phone: Comment on above: Performed By: #### C MP ####[address] [place] [address] Bilirubin [Mass/Vol] 0.8 mg/dL Normal 0.0 - 1.2 -[facility] 170 Work Phone: Comment on above: Performed By: #### C MP ####[address] [place] [address] Calcium [Mass/Vol] 7.3 mg/dL Low 8.6 - 10.3 -[facility] 170 Work Phone: Comment on above: Performed By: #### C MP ####[address] [place] [address] Chloride [Moles/Vol] 101 mmol/L Normal 98 - 107 MP-[facility] ry [facility] 170 Work Phone: Comment on above: Performed By: #### C MP ####[address] [place] [address] Creatinine [Mass/Vol] 5.33 mg/dL High 0.50 - 1.05 [facility] 170 Work Phone: Comment on above: Reference Range: 0.5 0 - 1.05 Performed By: #### C MP ####[address] [place] [address] Glucose [Mass/Vol] 101 mg/dL High 74 - 99 MP-Pul sue ry Medicine-W [facility] 170 Work Phone: Comment on above: Performed By: #### C MP ####[address] [address] Potassium [Moles/Vol] 4.3 mmol/L Normal 3.5 - 5.3 MP-[facility] ry Medicine-W [facility] 170 Work Phone: Comment on above: Performed By: #### C MP ####[address] [address] Protein [Mass/Vol] 5.0 g/dL Low 6.4 - 8.2 MP-Pul sue ry Medicine-[facility] [place] 170 Work Phone: Comment on above: Performed By: #### C MP ####[address] [address] Sodium [Moles/Vol] 136 mmol/L Normal 136 - 145 MP-Pul sue ry Medicine-[facility] [place] 170 Work Phone: Comment on above: Performed By: #### C MP ####[address] [address] Urea nitrogen [Mass/Vol] 56 mg/dL High 6 - 23 MP-[facility] [place] 170 Work Phone: Comment on above: Performed By: #### C MP ####[address] [address] Daily Progress Note-Medicine on 04-17-2021 Daily Progress Note-Medicine Normal [facility] Daily Progress Note-Nephrolo gyon 04-17-2021 Daily Progress Note-Nephrology Normal [facility] [place] [facility] GLUCOSE-POCTon 04-17-2021 Glucose [Mass/Vol] 170 mg/dL High 74 - 99 [facility] [place] Comment on above: Performed By: #### G ОЛЬГА ####[facility] [place] [address] Glucose [Mass/Vol] 135 mg/dL High 74 - 99 [facility] Comment on above: Performed By: #### G ОЛЬГА ####[facility] [place] [address] Glucose [Mass/Vol] 112 mg/dL High 74 - 99 [facility] [place] Comment on above: Performed By: #### G ОЛЬГА ####[address] [address] Glucose [Mass/Vol] 114 mg/dL High 74 - 99 [facility] [place] Comment on above: Performed By: #### G ОЛЬГА ####[address] [address] Glucose [Mass/Vol] 121 mg/dL High 74 - 99 [facility] [place] Comment on above: Performed By: #### G ОЛЬГА ####[address] [address] Glucose [Mass/Vol] 100 mg/dL High 74 - 99 [facility] [place] Comment on above: Performed By: #### G ОЛЬГА ####[address] [address] HEPATITIS B CORE AB-TOTALon 04-17-2021 HEP. B CORE AB-TOTAL Non-Reactive Normal NONREACTIVE [facility] Comment on above: Result Comment: Resu lts from patients taking biotin supplements or receiving high-dose biotin therapy should be interpreted with caution due to possible interference with this test. Providers may contact their local laboratory for further information. Performed By: #### H BCRT ####[id number] [place] [address] Lab Specimen Source Normal [facility] [place], [place] Comment on above: Performed By: #### H BCRT ####[id number] [place] [address] Hepatitis B Core Antibody, T otazon 04-17-2021 Hepatitis B Core Antibody, Total Non-Reactive See Below MP-Pulmona ry Medicine-W estwvke [facility] 170 Work Phone: Comment on above: SOURCE: Reference Ra nge: NONREACTIVE Results from patients taking biotin supplements or receiving high-dose biotin therapy should be interpreted with caution due to possible interference with this test. Providers may contact their local laboratory for further information. Laboratory - Blood bankon ABO group Nom (Bld) A MP-Pu lmona ry Medicine-[facility] 170 Work Phone: Blood group antibody screen Ql Negative MP-[facility] ry [facility] 170 Work Phone: Rh immune globulin screen (Bld) [Interp] Positive MP-[facility]a ry [facility] [place] 170 Work Phone: Laboratory - Chemistry and C hemistry - challengeon 04-17-2021 Glucose [Mass/Vol] 162 mg/dL above high threshold 74 - 99 MP-[facility] ry Medicine-W [facility] 170 Work Phone: Glucose [Mass/Vol] 170 mg/dL above high threshold 74 - 99 MP-[facility] 170 Work Phone: Glucose [Mass/Vol] 135 mg/dL above high threshold 74 - 99 [facility] 170 Work Phone: Glucose [Mass/Vol] 112 mg/dL above high threshold 74 - 99 [facility] 170 Work Phone: Glucose [Mass/Vol] 114 mg/dL above high threshold 74 - 99 MP-[facility] ry Medicine-[facility] 170 Work Phone: Albumin BCP dye [Mass/Vol] 2.4 g/dL below low threshold 3.4 - 5.0 MP-[facility] [address] Work Phone: ALT With P-5'-P [Catalytic activity/Vol] 12 U/L 7 - 45 [facility] [place] [address] Work Phone: Comment on above: Patients treated wit h Sulfasalazine may generate falsely decreased results for ALT. AST With P-5'-P [Catalytic activity/Vol] 11 U/L 9 - 39 -[place] [address] Work Phone: CO2 [Moles/Vol] 25 mmol/L 21 - 32 [facility] a [place] [address] Work Phone: Glucose [Mass/Vol] 121 mg/dL above high threshold 74 - 99 [place] [address] Work Phone: Laboratory - Hematology and Cell countson 04-17-2021 Erythrocyte distribution width (RBC) [Ratio] 16.2 % above high threshold See Below [facility] [place] [address] Work Phone: Comment on above: Reference Range: 11. 5 - 14.5 Hematocrit (Bld) [Volume fraction] 26.2 % below low threshold See Below [facility] [place] [address] Work Phone: Comment on above: Reference Range: 36. 0 - 46.0 Hemoglobin (Bld) [Mass/Vol] 8.4 g/dL below low threshold See Below [facility] [place] [address] Work Phone: Comment on above: Reference Range: 12. 0 - 16.0 MCHC (RBC) [Mass/Vol] 32.1 g/dL See Below [facility] [place] [address] Work Phone: Comment on above: Reference Range: 32. 0 - 36.0 MCV (RBC) [Entitic vol] 90 fL 80 - 100 -[place] [address] Work Phone: Platelets (Bld) [#/Vol] 152 10*3/uL 150 - 450 [facility] [place] [address] Work Phone: RBC (Bld) [#/Vol] 2.90 {x10E12/L} below low threshold See Below [facility] [place] [address] Work Phone: Comment on above: Reference Range: 4.0 0 - 5.20 WBC (Bld) [#/Vol] 13.2 10*3/uL above high threshold 4.4 - 11.3 [facility] [place] [address] Work Phone: Magnesium, Serumon 2 Magnesium [Mass/Vol] 1.90 mg/dL Normal 1.60 - 2.40 [place] [address] Work Phone: Comment on above: Reference Range: 1.6 0 - 2.40 Performed By: #### M G ####[facility] [place] [address] No Panel Informationon 04-17 ORDER RECD [place] [address] Work Phone: 10 {mL/min/1.73m2} Abnormal >90 [facility] [place] [address] Work Phone: Comment on above: CALCULATIONS OF RYLEE MATED GFR ARE PERFORMED USING THE 2020 CKD-EPI STUDY REFIT EQUATION WITHOUT THE RACE VARIABLE FOR THE IDMS-TRACEABLE CREATININE METHODS.https://jasn.asnjournals.org/content/early/ASN. 3199567782 0.0 {/100_WBC} 0.0 - 0.0 [facility] [place] [address] Work Phone: Phosphorus, Serumon 04-17-19 22 Phosphate [Mass/Vol] 4.5 mg/dL Normal 2.5 - 4.9 MP-[facility] 170 Work Phone: Comment on above: The performance jerrod acteristics of phosphorus testing in heparinized plasma have been validated by the individual laboratory site where testing is performed. Testing on heparinized plasma is not approved by the FDA; however, such approval is not necessary. Result Comment: The performance characteristics of phosphorus testing in heparinized plasma have been validated by the individual laboratory site where testing is performed. Testing on heparinized plasma is not approved by the FDA; however, such approval is not necessary. Performed By: #### P HOS ####[address] [address] REQUEST-LEUKOREDUCED RED LUIS A LSon 04-17-2021 REQUEST-LEUKOREDUCE D RED CELLS ORDER RECD Normal [facility] Comment on above: Performed By: #### 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 ####[address] [address] T-SPOT TBon 04-17-2021 NIL[NEG]CONTROL SPOT COUNT Passed Normal [facility] Comment on above: Performed By: #### T SPOT ####[id number] [place] [address] PANEL A SPOT COUNT 0 Normal [facility] Comment on above: Performed By: #### T SPOT ####[address] [id number] [place] [address] PANEL B SPOT COUNT 0 Normal [facility] Comment on above: Performed By: #### T SPOT ####[id number] [place] [address] POS CONTROL SPOT COUNT Passed Normal [facility] Comment on above: Performed By: #### T SPOT ####[address] [id number] [place] [address] T-SPOT.TB INTERP Negative Normal Normal Valu e: Negative [facility] Comment on above: Result Comment: A ne gative test result does not exclude the possibility of exposure dae infection with Mycobacterium tuberculosis (M. tuberculosis).Patients with recent exposure to TB infected individuals exhibiting anegative T-SPOT.TB result should be considered for retesting within 6weeks or if other relevant clinical symptoms indicate. Results fromT-SPOT.TB testing must be used in conjunction with each individual'sepidemiological history, current medical status, and results of otherdiagnostic evaluations. The T-SPOT.TB test is qualitative and resultsare reported as positive, borderline or negative, given that the testcontrols perform as expected. In line with the Centers for DiseaseControl and Prevention's 2010 recommendation to report quantitativemeasurements alongside the qualitative result, the laboratory providesspot counts for informational purposes only. The T-SPOT.TB test shouldnot be interpreted as a quantitative test. Performed By: #### T SPOT ####[employer] [place] [address] TYPE + SCREENon 04-17-2021 ABO TYPE A Normal [facility] Comment on above: Performed By: #### T +S ####[facility] [place] [address] RH TYPE Positive Normal [facility] Comment on above: Performed By: #### T +S ####[facility] [place] [address] [id number] ACT,INHIBon 022 NHBREA69 ACTIVITY 63 % Abnormal >=67 [facility] Comment on above: Result Comment: INTE RPRETIVE COMMENT: XDTPAU51 activity ismeasured using FRETS-VWF73 substrate. Severedeficiency of JVHDZX49 (activity <5-10%) maybe acquired or congenital, and is a relativelyspecific finding in patients with a clinicaldiagnosis of thrombotic thrombocytopenicpurpura (TTP). Severe LQWYIB06 deficiency isobserved in approximately two-thirds ofpatients with a clinical diagnosis of acuteidiopathic TTP. In this patient population,persistence of severe RRYHWK99 deficiencyduring clinical remission is associatedwith an increased risk for recurrent clinicalepisodes of TTP. Severe congenital ZALYQF85udaifufusy (Hansa-Amanda syndrome) is anautosomal recessive condition which maypresent in children or adults as episodesof TTP. Severe FVXMMH39 deficiency persistsduring remission in these patients and auto-LWXJOY63 antibody is generally not observed.Mild to moderate deficiency of BJLHVG34oucihiob has been observed in multiplemedical conditions. Hyperbilirubinemiainterferes with FRET-based assay of ABVMOV26dzlevpep and plamsa free hemoglobin >2 gm/dLis a potent inhibitor of FHAJRH79 function.(Effective 08/20/2009)Sample comment for YHOKEF72 Activity, Inhibitor and Antibody testing: Fibrinclot found in plasma sample when thawed for testing. Note: in our studies,serum samples gave similar results to citrated plasma samples. Performed By: #### A DA13 ####[place] [id number], [place] [id number] ANTIGLOMERULAR BM ABon 04-16 ANTIGLOMERULAR BM AB 5 units Normal 0-20 [facility] Comment on above: Result Comment: Nega tive 0 - 20 Weak Positive 21 - 30 Moderate to Strong Positive >30 Performed By: #### A GBM ####[facility] [phone] [place], [place] [id number] CBCon 04-16-2021 Erythrocyte distribution width (RBC) [Ratio] 16.6 % High 11.5 - 14.5 [facility] Comment on above: Performed By: #### C BC ####[address] [address] Hematocrit (Bld) [Volume fraction] 26.4 % Low 36.0 - 46.0 [facility] Comment on above: Performed By: #### C BC ####[address] [address] Hemoglobin (Bld) [Mass/Vol] 8.3 g/dL Low 12.0 - 16.0 [facility] Comment on above: Performed By: #### C BC ####[address] [address] MCHC (RBC) [Mass/Vol] 31.4 g/dL Low 32.0 - 36.0 [facility] Comment on above: Performed By: #### C BC ####[address] [address] MCV (RBC) [Entitic vol] 90 fL Normal 80 - 100 [facility] Comment on above: Performed By: #### C BC ####[address] [address] NUCLEATED RBC 0.0 /100 WBC Normal 0.0 - 0.0 [facility] Comment on above: Performed By: #### C BC ####[address] [address] Platelets (Bld) [#/Vol] 178 10*3/uL Normal 150 - 450 [facility] Comment on above: Performed By: #### C BC ####[address] [address] RBC 2.92 x10E12/L Low 4.00 - 5.20 [facility] Comment on above: Performed By: #### C BC ####[address] [address] WBC (Bld) [#/Vol] 12.7 10*3/uL High 4.4 - 11.3 [facility] [place] [place] Comment on above: Performed By: #### C BC ####[address] [address] COMPREHENSIVE PANELon 2021 Albumin [Mass/Vol] 2.3 g/dL Low 3.4 - 5.0 [facility] Comment on above: Order Comment: Aguilar d- RB to Cathy Batsheva, 04/16/2021 07:29 Performed By: #### C MP ####[address] [address] ALP [Catalytic activity/Vol] 46 U/L Normal 33 - 110 [facility] Comment on above: Order Comment: Aguilar d- RB to Cathy Herman, 04/16/2021 07:29 Performed By: #### C MP ####[address] [address] ALT [Catalytic activity/Vol] 15 U/L Normal 7 - 45 [facility] Comment on above: Order Comment: Aguilar d- RB to Cathyher Herman, 04/16/2021 07:29 Result Comment: Elma ents treated with Sulfasalazine may generate falsely decreased results for ALT. Performed By: #### C MP ####[address] [place] [address] Anion gap [Moles/Vol] 13 mmol/L Normal 10 - 20 [facility] Comment on above: Order Comment: Aguilar d- RB to Cathy Herman, 04/16/2021 07:29 Performed By: #### C MP ####[address] [place] [address] AST [Catalytic activity/Vol] 11 U/L Normal 9 - 39 [facility] Comment on above: Order Comment: Aguilar d- RB to Cathy Herman, 04/16/2021 07:29 Performed By: #### C MP ####[address] [address] Bilirubin [Mass/Vol] 0.6 mg/dL Normal 0.0 - 1.2 [facility] Comment on above: Order Comment: Aguilar d- RB to Cathy Herman, 04/16/2021 07:29 Performed By: #### C MP ####[address] [address] Calcium [Mass/Vol] 7.2 mg/dL Low 8.6 - 10.3 [facility] Comment on above: Order Comment: Aguilar d- RB to Cathy Herman, 04/16/2021 07:29 Performed By: #### C MP ####[address] [address] Chloride [Moles/Vol] 103 mmol/L Normal 98 - 107 [facility] Comment on above: Order Comment: Aguilar d- RB to Cathy Colungaer, 04/16/2021 07:29 Performed By: #### C MP ####[address] [address] Creatinine [Mass/Vol] 6.88 mg/dL High 0.50 - 1.05 [facility] Comment on above: Order Comment: Aguilar d- RB to Cathy Herman, 04/16/2021 07:29 Performed By: #### C MP ####[address] [address] GFR/1.73 sq M.predicted among non-blacks MDRD (S/P/Bld) [Vol rate/Area] 7 mL/min/{1.73_m2} Abnormal >90 [facility] Comment on above: Order Comment: Aguilar d- RB to Cathy Herman, 04/16/2021 07:29 Result Comment: CALC ULATIONS OF ESTIMATED GFR ARE PERFORMED USING THE 2020 CKD-EPI STUDY REFIT EQUATION WITHOUT THE RACE VARIABLE FOR THE IDMS-TRACEABLE CREATININE METHODS.https://jasn.asnjournals.org/content/early//ASN. 8388543642 Performed By: #### C MP ####[address] [address] Glucose [Mass/Vol] 97 mg/dL Normal 74 - 99 [facility] Comment on above: Order Comment: Aguilar d- RB to Cathy Herman, 04/16/2021 07:29 Performed By: #### C MP ####[address] [address] HCO3 (Bld) [Moles/Vol] 25 mmol/L Normal 21 - 32 [facility] Comment on above: Order Comment: Aguilar d- RB to Cathy Herman, 04/16/2021 07:29 Performed By: #### C MP ####[address] [address] Potassium [Moles/Vol] 4.4 mmol/L Normal 3.5 - 5.3 [facility] Comment on above: Order Comment: Aguilar d- RB to Cathy Herman, 04/16/2021 07:29 Performed By: #### C MP ####[address] [address] Protein [Mass/Vol] 4.9 g/dL Low 6.4 - 8.2 [facility] Comment on above: Order Comment: Aguilar d- RB to Cathy Herman, 04/16/2021 07:29 Performed By: #### C MP ####[address] [address] Sodium [Moles/Vol] 137 mmol/L Normal 136 - 145 [facility] Comment on above: Order Comment: Aguilar d- RB to Cathy Herman, 04/16/2021 07:29 Performed By: #### C MP ####[address] [address] Urea nitrogen [Mass/Vol] 91 mg/dL Critically high 6 - 23 [facility] Comment on above: Order Comment: Aguilar d- RB to Cathy Herman, 04/16/2021 07:29 Result Comment: Call ed- RB to Cathy Herman, 04/16/2021 07:29 Performed By: #### C MP ####[address] [address] Daily Progress Note-Medicine on 04-16-2021 Daily Progress Note-Medicine Normal [facility] Daily Progress Note-Nephrolo gyon 04-16-2021 Daily Progress Note-Nephrology Normal [facility] GLUCOSE-POCTon 04-16-2021 Glucose [Mass/Vol] 154 mg/dL High 74 - 99 [facility] Comment on above: Performed By: #### G ОЛЬГА ####[address] [address] Glucose [Mass/Vol] 108 mg/dL High 74 - 99 [facility] Comment on above: Performed By: #### G ОЛЬГА ####[address] [address] Glucose [Mass/Vol] 128 mg/dL High 74 - 99 [facility] Comment on above: Performed By: #### G ОЛЬГА ####[address] [address] Glucose [Mass/Vol] 104 mg/dL High 74 - 99 [facility] Comment on above: Performed By: #### G ОЛЬГА ####[address] [address] Glucose [Mass/Vol] 120 mg/dL High 74 - 99 [facility] Comment on above: Performed By: #### G ОЛЬГА ####[facility] [facility] [place] [address] Glucose [Mass/Vol] 113 mg/dL High 74 - 99 [facility] Comment on above: Performed By: #### G ОЛЬГА ####[facility] [facility] [place] [address] Laboratory - Chemistry and C hemistry - challengeon 04-16-2021 Glucose [Mass/Vol] 100 mg/dL above high threshold 74 - 99 [facility]-[place] [facility] 170 Work Phone: [phone] Glucose [Mass/Vol] 154 mg/dL above high threshold 74 - 99 [facility] Medicine-[place] [facility] 170 Work Phone: [phone] Glucose [Mass/Vol] 108 mg/dL above high threshold 74 - 99 [facility] 170 Work Phone: [phone] Glucose [Mass/Vol] 128 mg/dL above high threshold 74 - 99 [facility] 170 Work Phone: [phone] Glucose [Mass/Vol] 104 mg/dL above high threshold 74 - 99 [facility] 170 Work Phone: Albumin BCP dye [Mass/Vol] 2.3 g/dL below low threshold 3.4 - 5.0 [facility] 170 Work Phone: ALP [Catalytic activity/Vol] 46 U/L 33 - 110 [facility] 170 Work Phone: ALT With P-5'-P [Catalytic activity/Vol] 15 U/L 7 - 45 [facility] [facility] 170 Work Phone: Comment on above: Patients treated wit h Sulfasalazine may generate falsely decreased results for ALT. Anion gap [Moles/Vol] 13 mmol/L 10 - 20 [facility] [facility] 170 Work Phone: AST With P-5'-P [Catalytic activity/Vol] 11 U/L 9 - 39 MP-[facility] ry Medicine-[facility] 170 Work Phone: Bilirubin [Mass/Vol] 0.6 mg/dL 0.0 - 1.2 MP-[facility] 170 Work Phone: Calcium [Mass/Vol] 7.2 mg/dL below low threshold 8.6 - 10.3 [facility] 170 Work Phone: Chloride [Moles/Vol] 103 mmol/L 98 - 107 [facility] 170 Work Phone: CO2 [Moles/Vol] 25 mmol/L 21 - 32 MP-Pul[facility] a ry Medicine-[facility] 170 Work Phone: Creatinine [Mass/Vol] 6.88 mg/dL above high threshold See Below MP-Pulmona ry [facility] 170 Work Phone: Comment on above: Reference Range: 0.5 0 - 1.05 Glucose [Mass/Vol] 97 mg/dL 74 - 99 MP-Pul sue ry [facility] 170 Work Phone: Potassium [Moles/Vol] 4.4 mmol/L 3.5 - 5.3 [facility] [place] 170 Work Phone: Protein [Mass/Vol] 4.9 g/dL below low threshold 6.4 - 8.2 [facility] [place] 170 Work Phone: Sodium [Moles/Vol] 137 mmol/L 136 - 145 [facility] [place] 170 Work Phone: Urea nitrogen [Mass/Vol] 91 mg/dL Critically high 6 - 23 [facility] 170 Work Phone: Comment on above: Called- RB to Bandar Herman, 04/16/2021 07:29 Glucose [Mass/Vol] 120 mg/dL above high threshold 74 - 99 -[place]diasa ry [place] [address] Work Phone: Laboratory - Hematology and Cell countson 04-16-2021 Erythrocyte distribution width (RBC) [Ratio] 16.6 % above high threshold See Below -[place]diasa [place] [address] Work Phone: Comment on above: Reference Range: 11. 5 - 14.5 Hematocrit (Bld) [Volume fraction] 26.4 % below low threshold See Below [facility] [place] [address] Work Phone: Comment on above: Reference Range: 36. 0 - 46.0 Hemoglobin (Bld) [Mass/Vol] 8.3 g/dL below low threshold See Below -Abdiasa [place] [address] Work Phone: Comment on above: Reference Range: 12. 0 - 16.0 MCHC (RBC) [Mass/Vol] 31.4 g/dL below low threshold See Below -P[place]a [place] [address] Work Phone: Comment on above: Reference Range: 32. 0 - 36.0 MCV (RBC) [Entitic vol] 90 fL 80 - 100 -[place] [address] Work Phone: Platelets (Bld) [#/Vol] 178 10*3/uL 150 - 450 -[place] [address] Work Phone: RBC (Bld) [#/Vol] 2.92 {x10E12/L} below low threshold See Below [facility] [place] [address] Work Phone: Comment on above: Reference Range: 4.0 0 - 5.20 WBC (Bld) [#/Vol] 12.7 10*3/uL above high threshold 4.4 - 11.3 MP-[facility] ry Medicine-[place] [facility] 170 Work Phone: MAGNESIUMon 04-16-2021 Magnesium [Mass/Vol] 2.00 mg/dL Normal 1.60 - 2.40 [facility] Comment on above: Performed By: #### M G ####[facility] [facility] [place] [address] Magnesium, Serumon 2 Magnesium [Mass/Vol] 2.00 mg/dL See Below [facility] 170 Work Phone: Comment on above: Reference Range: 1.6 0 - 2.40 No Panel Informationon 04-16 7 {mL/min/1.73m2} Abnormal >90 MP-Pulm tamara ry [facility] 170 Work Phone: Comment on above: CALCULATIONS OF RYLEE MATED GFR ARE PERFORMED USING THE 2020 CKD-EPI STUDY REFIT EQUATION WITHOUT THE RACE VARIABLE FOR THE IDMS-TRACEABLE CREATININE METHODS.https://jasn.asnjournals.org/content//ASN. 3003133584 0.0 {/100_WBC} 0.0 - 0.0 MP-[facility]a ry Medicine-[facility] 170 Work Phone: PHOSPHORUSon 04-16-2021 Phosphate [Mass/Vol] 4.9 mg/dL Normal 2.5 - 4.9 [facility] Comment on above: Result Comment: The performance characteristics of phosphorus testing in heparinized plasma have been validated by the individual laboratory site where testing is performed. Testing on heparinized plasma is not approved by the FDA; however, such approval is not necessary. Performed By: #### P HOS ####[facility] [facility] [place] [address] Phosphorus, Serumon 04-16-19 22 Phosphate [Mass/Vol] 4.9 mg/dL 2.5 - 4.9 [facility] Work Phone: Comment on above: The performance jerrod acteristics of phosphorus testing in heparinized plasma have been validated by the individual laboratory site where testing is performed. Testing on heparinized plasma is not approved by the FDA; however, such approval is not necessary. Preop Checkliston 04-16-2021 Preop Checklist Normal [facility] ANTI-DNASE B AB.on 2 ANTI-DNASE B AB. <86 Normal 0-260 [facility] Comment on above: Result Comment: REFE RENCE INTERVAL: DNAse B AntibodyAccess complete set of age- and/or gender-specific referenceintervals for this test in the [employer] [facility] Test Directory([employer]).Performed By: [facility] [place] [id number] Director: Niecy Conklin MD Performed By: #### A DNAS ####[facility] [place] [address] CBCon 2021 Erythrocyte distribution width (RBC) [Ratio] 16.3 % High 11.5 - 14.5 [facility] Comment on above: Performed By: #### C BC ####[address] [address] Hematocrit (Bld) [Volume fraction] 25.6 % Low 36.0 - 46.0 [facility] Comment on above: Performed By: #### C BC ####[address] [address] Hemoglobin (Bld) [Mass/Vol] 8.3 g/dL Low 12.0 - 16.0 [facility] Comment on above: Performed By: #### C BC ####[address] [address] MCHC (RBC) [Mass/Vol] 32.4 g/dL Normal 32.0 - 36.0 [facility] Comment on above: Performed By: #### C BC ####[address] [address] MCV (RBC) [Entitic vol] 88 fL Normal 80 - 100 [facility] Comment on above: Performed By: #### C BC ####[facility] [place] [address] NUCLEATED RBC 0.0 /100 WBC Normal 0.0 - 0.0 [facility] Comment on above: Performed By: #### C BC ####[facility] [place] [address] Platelets (Bld) [#/Vol] 200 10*3/uL Normal 150 - 450 [facility] Comment on above: Performed By: #### C BC ####[address] [address] RBC 2.92 x10E12/L Low 4.00 - 5.20 [facility] Comment on above: Performed By: #### C BC ####[address] [address] WBC (Bld) [#/Vol] 12.2 10*3/uL High 4.4 - 11.3 [facility] [place], [place] Comment on above: Performed By: #### C BC ####[address] [address] Daily Progress Note-Medicine on 2021 Daily Progress Note-Medicine Normal [facility] Daily Progress Note-Nephrolo gyon 2021 Daily Progress Note-Nephrology Normal [facility] Discharge Planning [id number] 0 2021 Discharge Planning Note2 Normal [facility] GLUCOSE-POCTon 2021 Glucose [Mass/Vol] 211 mg/dL High 74 - 99 [facility] Comment on above: Performed By: #### G ОЛЬГА ####[address] [address] Glucose [Mass/Vol] 141 mg/dL High 74 - 99 [facility] Comment on above: Performed By: #### G ОЛЬГА ####[address] [address] Glucose [Mass/Vol] 150 mg/dL High 74 - 99 [facility] Comment on above: Performed By: #### G ОЛЬГА ####[facility] [facility] [place] [address] Glucose [Mass/Vol] 149 mg/dL High 74 - 99 [facility] Comment on above: Performed By: #### G ОЛЬГА ####[facility] [facility] [place] [address] Glucose [Mass/Vol] 209 mg/dL High 74 - 99 [facility] Comment on above: Performed By: #### G ОЛЬГА ####[facility] [facility] [place] [address] Glucose [Mass/Vol] 259 mg/dL High 74 - 99 [facility] Comment on above: Performed By: #### G ОЛЬГА ####[facility] [place] [address] INSERT LUPE CATH W/O SQ PORT GREATER THAN 5 YRSon 2021 INSERT LUPE CATH W/O SQ PORT GREATER THAN 5 YRS Normal [facility] Laboratory - Chemistry and C hemistry - challengeon 2021 Glucose [Mass/Vol] 113 mg/dL above high threshold 74 - 99 MP-[facility] ry Medicine-W estw[place] [facility] 170 Work Phone: Glucose [Mass/Vol] 211 mg/dL above high threshold 74 - 99 [facility]-[place] [facility] [facility] 170 Work Phone: [phone] Glucose [Mass/Vol] 141 mg/dL above high threshold 74 - 99 [facility]-[place] [facility] [facility] 170 Work Phone: Glucose [Mass/Vol] 150 mg/dL above high threshold 74 - 99 [facility]-[place] [facility] [facility] 170 Work Phone: Glucose [Mass/Vol] 149 mg/dL above high threshold 74 - 99 [facility]-[place] [facility] 170 Work Phone: [phone] Glucose [Mass/Vol] 209 mg/dL above high threshold 74 - 99 MP-[facility] ry Medicine[place] [facility] 170 Work Phone: Laboratory - Hematology and Cell countson 2021 Erythrocyte distribution width (RBC) [Ratio] 16.3 % above high threshold See Below [facility] [place] [address] Work Phone: Comment on above: Reference Range: 11. 5 - 14.5 Hematocrit (Bld) [Volume fraction] 25.6 % below low threshold See Below [place] [address] Work Phone: Comment on above: Reference Range: 36. 0 - 46.0 Hemoglobin (Bld) [Mass/Vol] 8.3 g/dL below low threshold See Below [facility] [place] [address] Work Phone: Comment on above: Reference Range: 12. 0 - 16.0 MCHC (RBC) [Mass/Vol] 32.4 g/dL See Below [place] [address] Work Phone: Comment on above: Reference Range: 32. 0 - 36.0 MCV (RBC) [Entitic vol] 88 fL 80 - 100 [place] [address] Work Phone: Platelets (Bld) [#/Vol] 200 10*3/uL 150 - 450 [place] [address] Work Phone: RBC (Bld) [#/Vol] 2.92 {x10E12/L} below low threshold See Below [facility] [place] [address] Work Phone: Comment on above: Reference Range: 4.0 0 - 5.20 WBC (Bld) [#/Vol] 12.2 10*3/uL above high threshold 4.4 - 11.3 [place] [address] Work Phone: MAGNESIUMon 2021 Magnesium [Mass/Vol] 2.00 mg/dL Normal 1.60 - 2.40 [facility] [place] Comment on above: Performed By: #### M G ####[facility] [facility] [place] [address] Magnesium [Mass/Vol] 1.90 mg/dL Normal 1.60 - 2.40 [facility] [place] Comment on above: Performed By: #### M G ####[facility] [facility] [place] [address] Magnesium, Serumon 2 Magnesium [Mass/Vol] 2.00 mg/dL See Below MP-Pulmona [facility] Medicine-[facility] [place] [address] Work Phone: Comment on above: Reference Range: 1.6 0 - 2.40 No Panel Informationon 04-15 [email or web address]?Ret [email or web address]?Patient YX=[id number]&Date= 2&Time=14%3a22%3a52%3a00&Te stType=ECG&Site=12&OutputTy pe=PDF&Ext=PDF MP-[facility] [place] 170 Work Phone: Normal sinus rhythm with sinus arrhythmia [facility] 170 Work Phone: Borderline Abnormal MP-Pu lmona ry Medicine-[facility] 170 Work Phone: [phone] [facility] 170 Work Phone: [phone] MP-P[facility]a ry Medicine-[facility] 170 Work Phone: [phone] 1 MP-[facility] Medicine-[facility] 170 Work Phone: 157 1 MP-[facility] ry Medicine-[facility] 170 Work Phone: 226 1 MP-[facility] Medicine-[facility] 170 Work Phone: 14 1 MP-[facility] Medicine-[facility] 170 Work Phone: 25 1 [facility] 170 Work Phone: 2 1 [facility] 170 Work Phone: 38 1 [facility] 170 Work Phone: 438 1 [facility] 170 Work Phone: [phone] 1 [facility] 170 Work Phone: 84 1 [facility] 170 Work Phone: 138 1 [facility] 170 Work Phone: 88 1 [facility] 170 Work Phone: Normal [facility] 170 Work Phone: 0.0 {/100_WBC} 0.0 - 0.0 [facility] 170 Work Phone: PT Evaluation v2-physical th erapyon 2021 PT Evaluation v2-physical therapy Normal [facility] [place] [facility] RENAL FUNCTION PANELon 04-15 Albumin [Mass/Vol] 2.4 g/dL Low 3.4 - 5.0 [facility] Comment on above: Performed By: #### R ENAL ####[facility] [place] [address] Anion gap [Moles/Vol] 15 mmol/L Normal 10 - 20 [facility] [place] [facility] Comment on above: Performed By: #### R ENAL ####[facility] [place] [address] Calcium [Mass/Vol] 7.3 mg/dL Low 8.6 - 10.3 [facility] Comment on above: Performed By: #### R ENAL ####[address] [place] [address] Chloride [Moles/Vol] 102 mmol/L Normal 98 - 107 [facility] [place] [facility] Comment on above: Performed By: #### R ENAL ####[address] [place] [address] Creatinine [Mass/Vol] 5.96 mg/dL High 0.50 - 1.05 [facility] [place] Comment on above: Performed By: #### R ENAL ####[address] [place] [address] GFR/1.73 sq M.predicted among non-blacks MDRD (S/P/Bld) [Vol rate/Area] 9 mL/min/{1.73_m2} Abnormal >90 [facility] [place] [facility] Comment on above: Result Comment: CALC ULATIONS OF ESTIMATED GFR ARE PERFORMED USING THE 2020 CKD-EPI STUDY REFIT EQUATION WITHOUT THE RACE VARIABLE FOR THE IDMS-TRACEABLE CREATININE METHODS.https://jasn.asnjournals.org/content/early/ASN. 3920347996 Performed By: #### R ENAL ####[address] [place] [address] Glucose [Mass/Vol] 179 mg/dL High 74 - 99 [facility] [place] Comment on above: Performed By: #### R ENAL ####[address] [place] [address] HCO3 (Bld) [Moles/Vol] 25 mmol/L Normal 21 - 32 [facility] [place] [facility] Comment on above: Performed By: #### R ENAL ####[address] [place] [address] Phosphate [Mass/Vol] 4.3 mg/dL Normal 2.5 - 4.9 [facility] [place] [facility] Comment on above: Result Comment: The performance characteristics of phosphorus testing in heparinized plasma have been validated by the individual laboratory site where testing is performed. Testing on heparinized plasma is not approved by the FDA; however, such approval is not necessary. Performed By: #### R ENAL ####[address] [address] Potassium [Moles/Vol] 4.0 mmol/L Normal 3.5 - 5.3 [facility] [place] Comment on above: Performed By: #### R ENAL ####[address] [address] Sodium [Moles/Vol] 138 mmol/L Normal 136 - 145 [facility] Comment on above: Performed By: #### R ENAL ####[address] [address] Urea nitrogen [Mass/Vol] 76 mg/dL High 6 - 23 [facility] [place] [facility] Comment on above: Performed By: #### R ENAL ####[address] [address] Albumin [Mass/Vol] 2.6 g/dL Low 3.4 - 5.0 [facility] Comment on above: Performed By: #### R ENAL ####[address] [address] Anion gap [Moles/Vol] 14 mmol/L Normal 10 - 20 [facility] [place] [facility] Comment on above: Performed By: #### R ENAL ####[address] [address] Calcium [Mass/Vol] 7.4 mg/dL Low 8.6 - 10.3 [facility] Comment on above: Performed By: #### R ENAL ####[address] [address] Chloride [Moles/Vol] 102 mmol/L Normal 98 - 107 [facility] [place] [facility] Comment on above: Performed By: #### R ENAL ####[address] [address] Creatinine [Mass/Vol] 5.75 mg/dL High 0.50 - 1.05 [facility] [place] Comment on above: Performed By: #### R ENAL ####[address] [address] GFR/1.73 sq M.predicted among non-blacks MDRD (S/P/Bld) [Vol rate/Area] 9 mL/min/{1.73_m2} Abnormal >90 [facility] [place] Comment on above: Result Comment: CALC ULATIONS OF ESTIMATED GFR ARE PERFORMED USING THE 2020 CKD-EPI STUDY REFIT EQUATION WITHOUT THE RACE VARIABLE FOR THE IDMS-TRACEABLE CREATININE METHODS.https://jasn.asnjournals.org/content//ASN. 9287182047 Performed By: #### R ENAL ####[address] [address] Glucose [Mass/Vol] 133 mg/dL High 74 - 99 [facility] [place] Comment on above: Performed By: #### R ENAL ####[address] [address] HCO3 (Bld) [Moles/Vol] 26 mmol/L Normal 21 - 32 [facility] [place] Comment on above: Performed By: #### R ENAL ####[address] [address] Phosphate [Mass/Vol] 3.9 mg/dL Normal 2.5 - 4.9 [facility] [place] [facility] Comment on above: Result Comment: The performance characteristics of phosphorus testing in heparinized plasma have been validated by the individual laboratory site where testing is performed. Testing on heparinized plasma is not approved by the FDA; however, such approval is not necessary. Performed By: #### R ENAL ####[address] [address] Potassium [Moles/Vol] 4.2 mmol/L Normal 3.5 - 5.3 [facility] [place] Comment on above: Performed By: #### R ENAL ####[address] [address] Sodium [Moles/Vol] 138 mmol/L Normal 136 - 145 [facility] [place] Comment on above: Performed By: #### R ENAL ####[address] [address] Urea nitrogen [Mass/Vol] 70 mg/dL High 6 - 23 [facility] [place] [facility] Comment on above: Performed By: #### R ENAL ####[place] [id number] [place] [address] Albumin [Mass/Vol] 2.5 g/dL Low 3.4 - 5.0 [facility] [place] Comment on above: Performed By: #### R ENAL ####[address] [address] Anion gap [Moles/Vol] 14 mmol/L Normal 10 - 20 [facility] [place] [facility] Comment on above: Performed By: #### R ENAL ####[address] [address] Calcium [Mass/Vol] 7.3 mg/dL Low 8.6 - 10.3 [facility] Comment on above: Performed By: #### R ENAL ####[address] [address] Chloride [Moles/Vol] 103 mmol/L Normal 98 - 107 [facility] Comment on above: Performed By: #### R ENAL ####[address] [address] Creatinine [Mass/Vol] 5.46 mg/dL High 0.50 - 1.05 [facility] [place] [facility] Comment on above: Performed By: #### R ENAL ####[address] [address] GFR/1.73 sq M.predicted among non-blacks MDRD (S/P/Bld) [Vol rate/Area] 10 mL/min/{1.73_m2} Abnormal >90 [facility] [place] [facility] Comment on above: Result Comment: CALC ULATIONS OF ESTIMATED GFR ARE PERFORMED USING THE 2020 CKD-EPI STUDY REFIT EQUATION WITHOUT THE RACE VARIABLE FOR THE IDMS-TRACEABLE CREATININE METHODS.https://jasn.asnjournals.org/content///ASN. 3764055430 Performed By: #### R ENAL ####[address] [address] Glucose [Mass/Vol] 133 mg/dL High 74 - 99 [facility] [place] Comment on above: Performed By: #### R ENAL ####[address] [address] HCO3 (Bld) [Moles/Vol] 25 mmol/L Normal 21 - 32 [facility] Comment on above: Performed By: #### R ENAL ####[address] [address] Phosphate [Mass/Vol] 3.8 mg/dL Normal 2.5 - 4.9 [facility] [place] [facility] Comment on above: Result Comment: The performance characteristics of phosphorus testing in heparinized plasma have been validated by the individual laboratory site where testing is performed. Testing on heparinized plasma is not approved by the FDA; however, such approval is not necessary. Performed By: #### R ENAL ####[address] [address] Potassium [Moles/Vol] 4.3 mmol/L Normal 3.5 - 5.3 [facility] Comment on above: Performed By: #### R ENAL ####[address] [address] Sodium [Moles/Vol] 138 mmol/L Normal 136 - 145 [facility] Comment on above: Performed By: #### R ENAL ####[address] [address] Urea nitrogen [Mass/Vol] 64 mg/dL High 6 - 23 [facility] Comment on above: Performed By: #### R ENAL ####[address] [address] Albumin [Mass/Vol] 2.3 g/dL Low 3.4 - 5.0 [facility] Comment on above: Performed By: #### R ENAL ####[address] [address] Anion gap [Moles/Vol] 13 mmol/L Normal 10 - 20 [facility] [place] [facility] Comment on above: Performed By: #### R ENAL ####[address] [address] Calcium [Mass/Vol] 7.2 mg/dL Low 8.6 - 10.3 [facility] Comment on above: Performed By: #### R ENAL ####[address] [place] [address] Chloride [Moles/Vol] 103 mmol/L Normal 98 - 107 [facility] [place] [facility] Comment on above: Performed By: #### R ENAL ####[address] [place] [address] Creatinine [Mass/Vol] 5.06 mg/dL High 0.50 - 1.05 [facility] [place] Comment on above: Performed By: #### R ENAL ####[address] [place] [address] GFR/1.73 sq M.predicted among non-blacks MDRD (S/P/Bld) [Vol rate/Area] 11 mL/min/{1.73_m2} Abnormal >90 [facility] [place] [facility] Comment on above: Result Comment: CALC ULATIONS OF ESTIMATED GFR ARE PERFORMED USING THE 2020 CKD-EPI STUDY REFIT EQUATION WITHOUT THE RACE VARIABLE FOR THE IDMS-TRACEABLE CREATININE METHODS.https://jasn.asnjournals.org/content/early//ASN. 0663694150 Performed By: #### R ENAL ####[address] [place] [address] Glucose [Mass/Vol] 163 mg/dL High 74 - 99 [facility] [place] Comment on above: Performed By: #### R ENAL ####[address] [place] [address] HCO3 (Bld) [Moles/Vol] 26 mmol/L Normal 21 - 32 [facility] [place] [facility] Comment on above: Performed By: #### R ENAL ####[address] [place] [address] Phosphate [Mass/Vol] 3.9 mg/dL Normal 2.5 - 4.9 [facility] Comment on above: Result Comment: The performance characteristics of phosphorus testing in heparinized plasma have been validated by the individual laboratory site where testing is performed. Testing on heparinized plasma is not approved by the FDA; however, such approval is not necessary. Performed By: #### R ENAL ####[address] [address] Potassium [Moles/Vol] 4.2 mmol/L Normal 3.5 - 5.3 [facility] [place] Comment on above: Performed By: #### R ENAL ####[address] [address] Sodium [Moles/Vol] 138 mmol/L Normal 136 - 145 [facility] [place] Comment on above: Performed By: #### R ENAL ####[address] [address] Urea nitrogen [Mass/Vol] 60 mg/dL High 6 - 23 [facility] Comment on above: Performed By: #### R ENAL ####[address] [address] Albumin [Mass/Vol] 2.4 g/dL Low 3.4 - 5.0 [facility] [place] Comment on above: Performed By: #### R ENAL ####[address] [address] Anion gap [Moles/Vol] 14 mmol/L Normal 10 - 20 [facility] [place] [facility] Comment on above: Performed By: #### R ENAL ####[address] [address] Calcium [Mass/Vol] 7.2 mg/dL Low 8.6 - 10.3 [facility] Comment on above: Performed By: #### R ENAL ####[address] [address] Chloride [Moles/Vol] 100 mmol/L Normal 98 - 107 [facility] Comment on above: Performed By: #### R ENAL ####[address] [address] Creatinine [Mass/Vol] 4.40 mg/dL High 0.50 - 1.05 [facility] Comment on above: Performed By: #### R ENAL ####[address] [address] GFR/1.73 sq M.predicted among non-blacks MDRD (S/P/Bld) [Vol rate/Area] 12 mL/min/{1.73_m2} Abnormal >90 [facility] [place] Comment on above: Result Comment: CALC ULATIONS OF ESTIMATED GFR ARE PERFORMED USING THE 2020 CKD-EPI STUDY REFIT EQUATION WITHOUT THE RACE VARIABLE FOR THE IDMS-TRACEABLE CREATININE METHODS.https://jasn.asnjournals.org/content//ASN. 6384172675 Performed By: #### R ENAL ####[address] [address] Glucose [Mass/Vol] 241 mg/dL High 74 - 99 [facility] Comment on above: Performed By: #### R ENAL ####[address] [address] HCO3 (Bld) [Moles/Vol] 25 mmol/L Normal 21 - 32 [facility] [place] Comment on above: Performed By: #### R ENAL ####[address] [address] Phosphate [Mass/Vol] 3.3 mg/dL Normal 2.5 - 4.9 [facility] [place] [facility] Comment on above: Result Comment: The performance characteristics of phosphorus testing in heparinized plasma have been validated by the individual laboratory site where testing is performed. Testing on heparinized plasma is not approved by the FDA; however, such approval is not necessary. Performed By: #### R ENAL ####[address] [address] Potassium [Moles/Vol] 3.9 mmol/L Normal 3.5 - 5.3 [facility] Comment on above: Performed By: #### R ENAL ####[address] [address] Sodium [Moles/Vol] 135 mmol/L Low 136 - 145 [facility] [place] Comment on above: Performed By: #### R ENAL ####[address] [address] Urea nitrogen [Mass/Vol] 50 mg/dL High 6 - 23 [facility] Comment on above: Performed By: #### R ENAL ####[facility] [place] [address] Renal Function Panelon 04-15 Albumin BCP dye [Mass/Vol] 2.4 g/dL below low threshold 3.4 - 5.0 [facility] [place] [address] Work Phone: Anion gap [Moles/Vol] 15 mmol/L 10 - 20 [facility] 170 Work Phone: Calcium [Mass/Vol] 7.3 mg/dL below low threshold 8.6 - 10.3 [facility] [place] 170 Work Phone: Chloride [Moles/Vol] 102 mmol/L 98 - 107 [facility] [place] 170 Work Phone: CO2 [Moles/Vol] 25 mmol/L 21 - 32 MP-[facility] [place] 170 Work Phone: Creatinine [Mass/Vol] 5.96 mg/dL above high threshold See Below MP-[facility] [place] [address] Work Phone: Comment on above: Reference Range: 0.5 0 - 1.05 Glucose [Mass/Vol] 179 mg/dL above high threshold 74 - 99 [facility] [place] 170 Work Phone: Phosphate [Mass/Vol] 4.3 mg/dL 2.5 - 4.9 [facility] [place] 170 Work Phone: Comment on above: The performance jerrod acteristics of phosphorus testing in heparinized plasma have been validated by the individual laboratory site where testing is performed. Testing on heparinized plasma is not approved by the FDA; however, such approval is not necessary. Potassium [Moles/Vol] 4.0 mmol/L 3.5 - 5.3 [facility] Work Phone: Sodium [Moles/Vol] 138 mmol/L 136 - 145 -[facility]ul [facility] 170 Work Phone: Urea nitrogen [Mass/Vol] 76 mg/dL above high threshold 6 - 23 -[place] [address] Work Phone: Renal Function Panel 9 {mL/min/1.73m2} Abnormal >90 -[place] [address] Work Phone: Comment on above: CALCULATIONS OF RYLEE MATED GFR ARE PERFORMED USING THE 2020 CKD-EPI STUDY REFIT EQUATION WITHOUT THE RACE VARIABLE FOR THE IDMS-TRACEABLE CREATININE METHODS.https://jasn.asnjournals.org/content//ASN. 2671916504 Albumin BCP dye [Mass/Vol] 2.6 g/dL below low threshold 3.4 - 5.0 -[place] [address] Work Phone: Anion gap [Moles/Vol] 14 mmol/L 10 - 20 [facility] [place] [address] Work Phone: Calcium [Mass/Vol] 7.4 mg/dL below low threshold 8.6 - 10.3 -[place] [address] Work Phone: Chloride [Moles/Vol] 102 mmol/L 98 - 107 -[place] [address] Work Phone: CO2 [Moles/Vol] 26 mmol/L 21 - 32 -[place] [address] Work Phone: Creatinine [Mass/Vol] 5.75 mg/dL above high threshold See Below -[place] [address] Work Phone: Comment on above: Reference Range: 0.5 0 - 1.05 Glucose [Mass/Vol] 133 mg/dL above high threshold 74 - 99 -[facility] ry [facility] 170 Work Phone: Phosphate [Mass/Vol] 3.9 mg/dL 2.5 - 4.9 [facility] [place] [facility] Work Phone: Comment on above: The performance jerrod acteristics of phosphorus testing in heparinized plasma have been validated by the individual laboratory site where testing is performed. Testing on heparinized plasma is not approved by the FDA; however, such approval is not necessary. Potassium [Moles/Vol] 4.2 mmol/L 3.5 - 5.3 MP-[facility] ry [facility] 170 Work Phone: Sodium [Moles/Vol] 138 mmol/L 136 - 145 [facility] 170 Work Phone: Urea nitrogen [Mass/Vol] 70 mg/dL above high threshold 6 - 23 -[facility] ry [facility] 170 Work Phone: Renal Function Panel 9 {mL/min/1.73m2} Abnormal >90 MP-[place] [place] [address] Work Phone: Comment on above: CALCULATIONS OF RYLEE MATED GFR ARE PERFORMED USING THE 2020 CKD-EPI STUDY REFIT EQUATION WITHOUT THE RACE VARIABLE FOR THE IDMS-TRACEABLE CREATININE METHODS.https://jasn.asnjournals.org/content/early//ASN. 4651092046 Albumin BCP dye [Mass/Vol] 2.5 g/dL below low threshold 3.4 - 5.0 MP-[facility] ry [facility] 170 Work Phone: Anion gap [Moles/Vol] 14 mmol/L 10 - 20 MP-[facility] ry [facility] 170 Work Phone: Calcium [Mass/Vol] 7.3 mg/dL below low threshold 8.6 - 10.3 MP-[facility] 170 Work Phone: Chloride [Moles/Vol] 103 mmol/L 98 - 107 [facility] [place] [facility] Work Phone: CO2 [Moles/Vol] 25 mmol/L 21 - 32 MP-[facility] 170 Work Phone: Creatinine [Mass/Vol] 5.46 mg/dL above high threshold See Below MP-[facility] ry [facility] 170 Work Phone: Comment on above: Reference Range: 0.5 0 - 1.05 Glucose [Mass/Vol] 133 mg/dL above high threshold 74 - 99 MP-[facility] ry [facility] 170 Work Phone: Phosphate [Mass/Vol] 3.8 mg/dL 2.5 - 4.9 [facility]-[place] [address] Work Phone: Comment on above: The performance jerrod acteristics of phosphorus testing in heparinized plasma have been validated by the individual laboratory site where testing is performed. Testing on heparinized plasma is not approved by the FDA; however, such approval is not necessary. Potassium [Moles/Vol] 4.3 mmol/L 3.5 - 5.3 MP-[facility] 170 Work Phone: Sodium [Moles/Vol] 138 mmol/L 136 - 145 MP-[facility] 170 Work Phone: Urea nitrogen [Mass/Vol] 64 mg/dL above high threshold 6 - 23 MP-[facility] ry [facility] 170 Work Phone: Renal Function Panel 10 {mL/min/1.73m2} Abnormal >90 MP-[place] [address] Work Phone: Comment on above: CALCULATIONS OF RYLEE MATED GFR ARE PERFORMED USING THE 2020 CKD-EPI STUDY REFIT EQUATION WITHOUT THE RACE VARIABLE FOR THE IDMS-TRACEABLE CREATININE METHODS.https://jasn.asnjournals.org/content//ASN. 8836077749 Albumin BCP dye [Mass/Vol] 2.3 g/dL below low threshold 3.4 - 5.0 [facility] [place] 170 Work Phone: Anion gap [Moles/Vol] 13 mmol/L 10 - 20 MP-[facility] [place] 170 Work Phone: Calcium [Mass/Vol] 7.2 mg/dL below low threshold 8.6 - 10.3 [facility] [place] 170 Work Phone: Chloride [Moles/Vol] 103 mmol/L 98 - 107 [facility] [place] [facility] Work Phone: CO2 [Moles/Vol] 26 mmol/L 21 - 32 MP-[facility] [place] 170 Work Phone: Creatinine [Mass/Vol] 5.06 mg/dL above high threshold See Below MP-[facility] 170 Work Phone: Comment on above: Reference Range: 0.5 0 - 1.05 Glucose [Mass/Vol] 163 mg/dL above high threshold 74 - 99 [facility] [place] 170 Work Phone: Phosphate [Mass/Vol] 3.9 mg/dL 2.5 - 4.9 [facility] [place] 170 Work Phone: Comment on above: The performance jerrod acteristics of phosphorus testing in heparinized plasma have been validated by the individual laboratory site where testing is performed. Testing on heparinized plasma is not approved by the FDA; however, such approval is not necessary. Potassium [Moles/Vol] 4.2 mmol/L 3.5 - 5.3 [facility] [place] [facility] Work Phone: Sodium [Moles/Vol] 138 mmol/L 136 - 145 [facility] [place] 170 Work Phone: Urea nitrogen [Mass/Vol] 60 mg/dL above high threshold 6 - 23 MP-[facility] 170 Work Phone: Renal Function Panel 11 {mL/min/1.73m2} Abnormal >90 [place] [address] Work Phone: Comment on above: CALCULATIONS OF RYLEE MATED GFR ARE PERFORMED USING THE 2020 CKD-EPI STUDY REFIT EQUATION WITHOUT THE RACE VARIABLE FOR THE IDMS-TRACEABLE CREATININE METHODS.https://jasn.asnjournals.org/content//ASN. 3372027666 Chloride [Moles/Vol] 100 mmol/L 98 - 107 MP-[facility] 170 Work Phone: CO2 [Moles/Vol] 25 mmol/L 21 - 32 [place] [address] Work Phone: Creatinine [Mass/Vol] 4.40 mg/dL above high threshold See Below MP-[place] [address] Work Phone: Comment on above: Reference Range: 0.5 0 - 1.05 Glucose [Mass/Vol] 241 mg/dL above high threshold 74 - 99 [facility] [place] [facility] Work Phone: Phosphate [Mass/Vol] 3.3 mg/dL 2.5 - 4.9 [facility]-[place] [facility]-[place] [address] Work Phone: Comment on above: The performance jerrod acteristics of phosphorus testing in heparinized plasma have been validated by the individual laboratory site where testing is performed. Testing on heparinized plasma is not approved by the FDA; however, such approval is not necessary. Potassium [Moles/Vol] 3.9 mmol/L 3.5 - 5.3 [facility] [facility] Work Phone: Sodium [Moles/Vol] 135 mmol/L below low threshold 136 - 145 [facility] [facility] Work Phone: Urea nitrogen [Mass/Vol] 50 mg/dL above high threshold 6 - 23 [facility] [facility] 170 Work Phone: Renal Function Panel 12 {mL/min/1.73m2} Abnormal >90 [facility] 170 Work Phone: Comment on above: CALCULATIONS OF RYLEE MATED GFR ARE PERFORMED USING THE 2020 CKD-EPI STUDY REFIT EQUATION WITHOUT THE RACE VARIABLE FOR THE IDMS-TRACEABLE CREATININE METHODS.https://jasn.asnjournals.org/content/early/ASN. 9883035529 ULTRASOUND GUIDANCE FOR VASC ULAR ACCESSon 2021 ULTRASOUND GUIDANCE FOR VASCULAR ACCESS Normal [facility] WILMA + AVA PANELon 04-14-2021 WILMA WITH REFLEX TO AVA Negative Normal NEGATIVE [facility] Comment on above: Result Comment: The Antinuclear Antibody (WILMA) test was performed using indirect immunofluorescence assay with HEp-2 cells slide. Performed By: #### A NAP2 ####[id number] [place] [address] ANCA-ASSOCIATED VASCULITIS P ROFILE [ANCA,MPO,PR3]on 04-14-2021 Myeloperoxidase Ab Qn (S) 0 AU/mL 0-19 [facility] Work Phone: Comment on above: INTERPRETIVE INFORMA TION: Myeloperoxidase Abs, IgG 19 AU/mL or Less ......... Negative 20-25 AU/mL .............. Equivocal 26 AU/mL or Greater ...... PositiveApproximately 90% of patients with a P-ANCA pattern by IFA have antibodies specific for MPO. Proteinase 3 Ab Qn (S) 1675 AU/mL above high threshold 0-19 [facility] 170 Work Phone: Comment on above: INTERPRETIVE INFORMA TION: Serine Proteinase 3, IgG 19 AU/mL or Less ........ Negative 20-25 AU/mL ............. Equivocal 26 AU/mL or Greater ..... PositiveApproximately 85% of patients with a C-ANCA pattern by IFA have antibodies specific for PR3. ANCA-ASSOCIATED VASCULITIS PROFILE [ANCA,MPO,PR3] c-ANCA Abnormal See Below [facility] 170 Work Phone: Comment on above: Reference Range: Non e DetectedINTERPRETIVE INFORMATION: ANCA IFA Pattern Neutrophil Cytoplasmic Antibodies (C-ANCA = granular cytoplasmic staining, P-ANCA = perinuclear staining) are found in the serum of over 90 percent of patients with certain necrotizing systemic vasculitides, and usually in less than 5 percent of patients with collagen vascular disease or arthritis.Performed By: [employer] [place] [address] [id number] Director: Niecy Conklin MD ANCA-ASSOCIATED VASCULITIS PROFILE [ANCA,MPO,PR3] 1:320 above high threshold <1:20 [facility] 170 Work Phone: C3 COMPLEMENTon 04-14-2021 C3 COMPLEMENT 128 mg/dL Normal 87 - 200 [facility] Comment on above: Performed By: #### C 3 ####[id number] [place] [address] C4 COMPLEMENTon 04-14-2021 C4 COMPLEMENT 26 mg/dL Normal 10 - 50 [facility] Comment on above: Performed By: #### C 4 ####[id number] [place] [address] C4 Complement, Serumon 04-14 Complement C4 [Mass/Vol] 26 mg/dL 10 - 50 [facility] 170 Work Phone: CBCon 04-14-2021 Erythrocyte distribution width (RBC) [Ratio] 17.0 % High 11.5 - 14.5 [facility] Comment on above: Performed By: #### C BC ####[address] [address] Hematocrit (Bld) [Volume fraction] 26.2 % Low 36.0 - 46.0 [facility] Comment on above: Performed By: #### C BC ####[address] [address] Hemoglobin (Bld) [Mass/Vol] 8.7 g/dL Low 12.0 - 16.0 [facility] Comment on above: Performed By: #### C BC ####[address] [address] MCHC (RBC) [Mass/Vol] 33.2 g/dL Normal 32.0 - 36.0 [facility] Comment on above: Performed By: #### C BC ####[address] [address] MCV (RBC) [Entitic vol] 87 fL Normal 80 - 100 [facility] Comment on above: Performed By: #### C BC ####[address] [address] NUCLEATED RBC 0.0 /100 WBC Normal 0.0 - 0.0 [facility] Comment on above: Performed By: #### C BC ####[address] [address] Platelets (Bld) [#/Vol] 247 10*3/uL Normal 150 - 450 [facility] Comment on above: Performed By: #### C BC ####[address] [address] RBC 3.00 x10E12/L Low 4.00 - 5.20 [facility] Comment on above: Performed By: #### C BC ####[address] [address] WBC (Bld) [#/Vol] 13.9 10*3/uL High 4.4 - 11.3 [facility] [place], [place] Comment on above: Performed By: #### C BC ####[address] [address] Erythrocyte distribution width (RBC) [Ratio] 18.3 % High 11.5 - 14.5 [facility] Comment on above: Performed By: #### C BC ####[address] [address] Hematocrit (Bld) [Volume fraction] 21.4 % Low 36.0 - 46.0 [facility] Comment on above: Performed By: #### C BC ####[address] [address] Hemoglobin (Bld) [Mass/Vol] 6.8 g/dL Low 12.0 - 16.0 [facility] Comment on above: Performed By: #### C BC ####[address] [address] MCHC (RBC) [Mass/Vol] 31.8 g/dL Low 32.0 - 36.0 [facility] Comment on above: Performed By: #### C BC ####[address] [address] MCV (RBC) [Entitic vol] 87 fL Normal 80 - 100 [facility] Comment on above: Performed By: #### C BC ####[address] [address] NUCLEATED RBC 0.0 /100 WBC Normal 0.0 - 0.0 [facility] Comment on above: Performed By: #### C BC ####[address] [address] Platelets (Bld) [#/Vol] 220 10*3/uL Normal 150 - 450 [facility] Comment on above: Performed By: #### C BC ####[address] [address] RBC 2.45 x10E12/L Low 4.00 - 5.20 [facility] Comment on above: Performed By: #### C BC ####[facility] [place] [address] WBC (Bld) [#/Vol] 12.8 10*3/uL High 4.4 - 11.3 [facility] [place], [place] Comment on above: Performed By: #### C BC ####[facility] [place] [address] Daily Progress Note - Critic al Careon 04-14-2021 Daily Progress Note - Critical Care Normal [facility] Daily Progress Note-Medicine on 04-14-2021 Daily Progress Note-Medicine Normal [facility] Daily Progress Note-Nephrolo gyon 04-14-2021 Daily Progress Note-Nephrology Normal [facility] Daily Progress Note-Pulmonol ogyon 04-14-2021 Daily Progress Note-Pulmonology Normal [facility] GLUCOSE-POCTon 04-14-2021 Glucose [Mass/Vol] 208 mg/dL High 74 - 99 [facility] [place] Comment on above: Performed By: #### G ОЛЬГА ####[address] [address] Glucose [Mass/Vol] 307 mg/dL High 74 - 99 [facility] Comment on above: Performed By: #### G ОЛЬГА ####[address] [address] Glucose [Mass/Vol] 177 mg/dL High - [address] [place] [address] Comment on above: Performed By: #### G ОЛЬГА ####[address] [address] Glucose [Mass/Vol] 250 mg/dL High 74 - 99 [facility] Comment on above: Performed By: #### G ОЛЬГА ####[address] [address] Glucose [Mass/Vol] 235 mg/dL High - 99 [facility] Comment on above: Performed By: #### G ОЛЬГА ####[address] [address] Glucose [Mass/Vol] 245 mg/dL High 74 - 99 [facility] [place] Comment on above: Performed By: #### G ОЛЬГА ####[facility] [place] [address] Glucose [Mass/Vol] 260 mg/dL High 74 - 99 [facility] [place] Comment on above: Performed By: #### G ОЛЬГА ####[facility] [place] [address] Laboratory - Chemistry and C hemistry - challengeon 04-14-2021 Glucose [Mass/Vol] 259 mg/dL above high threshold 74 - 99 [facility] [facility] 170 Work Phone: [phone] Glucose [Mass/Vol] 208 mg/dL above high threshold 74 - 99 [facility] [facility] 170 Work Phone: Glucose [Mass/Vol] 307 mg/dL above high threshold 74 - 99 [facility] [facility] 170 Work Phone: Glucose [Mass/Vol] 177 mg/dL above high threshold 74 - 99 [facility] [facility] 170 Work Phone: Glucose [Mass/Vol] 250 mg/dL above high threshold 74 - 99 [facility] [facility] 170 Work Phone: Glucose [Mass/Vol] 235 mg/dL above high threshold 74 - 99 [facility] Work Phone: Laboratory - Hematology and Cell countson 04-14-2021 Erythrocyte distribution width (RBC) [Ratio] 17.0 % above high threshold See Below [facility] [facility] 170 Work Phone: Comment on above: Reference Range: 11. 5 - 14.5 Hematocrit (Bld) [Volume fraction] 26.2 % below low threshold See Below [facility] [facility] 170 Work Phone: Comment on above: Reference Range: 36. 0 - 46.0 Hemoglobin (Bld) [Mass/Vol] 8.7 g/dL below low threshold See Below [facility] [place] [address] Work Phone: Comment on above: Reference Range: 12. 0 - 16.0 MCHC (RBC) [Mass/Vol] 33.2 g/dL See Below [facility] [place] [address] Work Phone: Comment on above: Reference Range: 32. 0 - 36.0 MCV (RBC) [Entitic vol] 87 fL 80 - 100 [facility] [place] [address] Work Phone: Platelets (Bld) [#/Vol] 247 10*3/uL 150 - 450 [facility] [place] [address] Work Phone: RBC (Bld) [#/Vol] 3.00 {x10E12/L} below low threshold See Below [facility] [place] [address] Work Phone: Comment on above: Reference Range: 4.0 0 - 5.20 WBC (Bld) [#/Vol] 13.9 10*3/uL above high threshold 4.4 - 11.3 [facility] [place] [address] Work Phone: Erythrocyte distribution width (RBC) [Ratio] 18.3 % above high threshold See Below [facility] [place] [address] Work Phone: Comment on above: Reference Range: 11. 5 - 14.5 Hematocrit (Bld) [Volume fraction] 21.4 % below low threshold See Below [facility] [place] [address] Work Phone: Comment on above: Reference Range: 36. 0 - 46.0 Hemoglobin (Bld) [Mass/Vol] 6.8 g/dL below low threshold See Below [facility] [place] [address] Work Phone: Comment on above: Reference Range: 12. 0 - 16.0 MCHC (RBC) [Mass/Vol] 31.8 g/dL below low threshold See Below [place] [address] Work Phone: Comment on above: Reference Range: 32. 0 - 36.0 MCV (RBC) [Entitic vol] 87 fL 80 - 100 [facility] 170 Work Phone: Platelets (Bld) [#/Vol] 220 10*3/uL 150 - 450 [facility] 170 Work Phone: RBC (Bld) [#/Vol] 2.45 {x10E12/L} below low threshold See Below [facility] 170 Work Phone: Comment on above: Reference Range: 4.0 0 - 5.20 WBC (Bld) [#/Vol] 12.8 10*3/uL above high threshold 4.4 - 11.3 [place] [address] Work Phone: MAGNESIUMon 04-14-2021 Magnesium [Mass/Vol] 2.30 mg/dL Normal 1.60 - 2.40 [facility] Comment on above: Performed By: #### M G ####[address] [address] Magnesium [Mass/Vol] 2.40 mg/dL Normal 1.60 - 2.40 [facility] Comment on above: Performed By: #### M G ####[address] [address] Magnesium [Mass/Vol] 2.30 mg/dL Normal 1.60 - 2.40 [facility] Comment on above: Performed By: #### M G ####[address] [address] Magnesium [Mass/Vol] 2.30 mg/dL Normal 1.60 - 2.40 [facility] Comment on above: Performed By: #### M G ####[facility] [place] [address] Magnesium, Serumon Magnesium [Mass/Vol] 1.90 mg/dL Normal 1.60 - 2.40 [facility] 170 Work Phone: Comment on above: Reference Range: 1.6 0 - 2.40 Performed By: #### M G ####[facility] [place] [address] Magnesium [Mass/Vol] 2.30 mg/dL See Below [facility] 170 Work Phone: Comment on above: Reference Range: 1.6 0 - 2.40 Magnesium [Mass/Vol] 2.40 mg/dL See Below [facility] 170 Work Phone: Comment on above: Reference Range: 1.6 0 - 2.40 Magnesium [Mass/Vol] 2.30 mg/dL See Below [facility] 170 Work Phone: Comment on above: Reference Range: 1.6 0 - 2.40 Magnesium [Mass/Vol] 2.30 mg/dL See Below [facility] 170 Work Phone: Comment on above: Reference Range: 1.6 0 - 2.40 No Panel Informationon 04-14 ORDER RECD [facility] 170 Work Phone: 0.0 {/100_WBC} 0.0 - 0.0 [facility] 170 Work Phone: ORDER RECD [facility] 170 Work Phone: 0.0 {/100_WBC} 0.0 - 0.0 [facility] [facility] Work Phone: Present [facility] [facility] 170 Work Phone: Few [facility] [facility] 170 Work Phone: Mild [facility] [facility] 170 Work Phone: See Below [facility] [facility] 170 Work Phone: RED CELL MORPHOLOGYon 2021 POLYCHROMASIA Mild Normal [facility] Comment on above: Performed By: #### M ORP2 ####[address] [place] [address] RBC FRAGMENTS Few Normal [facility] Comment on above: Performed By: #### M ORP2 ####[address] [address] RBC morphology finding Nom (Bld) See Below Normal [facility] Comment on above: Performed By: #### M ORP2 ####[address] [place] [address] ROULEAUX Present Normal [facility] Comment on above: Performed By: #### M ORP2 ####[address] [place] [address] T[employer] CELLS Few Normal [facility] Comment on above: Performed By: #### M ORP2 ####[address] [place] [address] RENAL FUNCTION PANELon 04-14 Albumin [Mass/Vol] 2.6 g/dL Low 3.4 - 5.0 [facility] [place] Comment on above: Performed By: #### R ENAL ####[address] [place] [address] Anion gap [Moles/Vol] 13 mmol/L Normal 10 - 20 [facility] Comment on above: Performed By: #### R ENAL ####[address] [place] [address] Calcium [Mass/Vol] 7.7 mg/dL Low 8.6 - 10.3 [facility] Comment on above: Performed By: #### R ENAL ####[address] [address] Chloride [Moles/Vol] 99 mmol/L Normal 98 - 107 [facility] Comment on above: Performed By: #### R ENAL ####[address] [address] Creatinine [Mass/Vol] 3.45 mg/dL High 0.50 - 1.05 [facility] Comment on above: Performed By: #### R ENAL ####[address] [address] GFR/1.73 sq M.predicted among non-blacks MDRD (S/P/Bld) [Vol rate/Area] 17 mL/min/{1.73_m2} Abnormal >90 [facility] Comment on above: Result Comment: CALC ULATIONS OF ESTIMATED GFR ARE PERFORMED USING THE 2020 CKD-EPI STUDY REFIT EQUATION WITHOUT THE RACE VARIABLE FOR THE IDMS-TRACEABLE CREATININE METHODS.https://jasn.asnjournals.org/content/early//ASN. 0166083558 Performed By: #### R ENAL ####[address] [address] Glucose [Mass/Vol] 112 mg/dL High 74 - 99 [facility] Comment on above: Performed By: #### R ENAL ####[address] [address] HCO3 (Bld) [Moles/Vol] 28 mmol/L Normal 21 - 32 [facility] Comment on above: Performed By: #### R ENAL ####[address] [address] Phosphate [Mass/Vol] 2.1 mg/dL Low 2.5 - 4.9 [facility] Comment on above: Result Comment: The performance characteristics of phosphorus testing in heparinized plasma have been validated by the individual laboratory site where testing is performed. Testing on heparinized plasma is not approved by the FDA; however, such approval is not necessary. Performed By: #### R ENAL ####[address] [address] Potassium [Moles/Vol] 3.6 mmol/L Normal 3.5 - 5.3 [facility] Comment on above: Performed By: #### R ENAL ####[address] [address] Sodium [Moles/Vol] 136 mmol/L Normal 136 - 145 [facility] Comment on above: Performed By: #### R ENAL ####[address] [address] Urea nitrogen [Mass/Vol] 39 mg/dL High 6 - 23 [facility] Comment on above: Performed By: #### R ENAL ####[address] [address] Albumin [Mass/Vol] 2.6 g/dL Low 3.4 - 5.0 [facility] Comment on above: Performed By: #### R ENAL ####[address] [address] Anion gap [Moles/Vol] 15 mmol/L Normal 10 - 20 [facility] Comment on above: Performed By: #### R ENAL ####[address] [address] Calcium [Mass/Vol] 7.5 mg/dL Low 8.6 - 10.3 [facility] Comment on above: Performed By: #### R ENAL ####[address] [address] Chloride [Moles/Vol] 103 mmol/L Normal 98 - 107 [facility] Comment on above: Performed By: #### R ENAL ####[address] [address] Creatinine [Mass/Vol] 7.38 mg/dL High 0.50 - 1.05 [facility] Comment on above: Performed By: #### R ENAL ####[address] [address] GFR/1.73 sq M.predicted among non-blacks MDRD (S/P/Bld) [Vol rate/Area] 7 mL/min/{1.73_m2} Abnormal >90 [facility] Comment on above: Result Comment: CALC ULATIONS OF ESTIMATED GFR ARE PERFORMED USING THE 2020 CKD-EPI STUDY REFIT EQUATION WITHOUT THE RACE VARIABLE FOR THE IDMS-TRACEABLE CREATININE METHODS.https://jasn.asnjournals.org/content/early/ASN. 9914428159 Performed By: #### R ENAL ####[address] [address] Glucose [Mass/Vol] 178 mg/dL High 74 - 99 [facility] Comment on above: Performed By: #### R ENAL ####[address] [address] HCO3 (Bld) [Moles/Vol] 22 mmol/L Normal 21 - 32 [facility] Comment on above: Performed By: #### R ENAL ####[address] [address] Phosphate [Mass/Vol] 4.0 mg/dL Normal 2.5 - 4.9 [facility] Comment on above: Result Comment: The performance characteristics of phosphorus testing in heparinized plasma have been validated by the individual laboratory site where testing is performed. Testing on heparinized plasma is not approved by the FDA; however, such approval is not necessary. Performed By: #### R ENAL ####[address] [address] Potassium [Moles/Vol] 4.4 mmol/L Normal 3.5 - 5.3 [facility] Comment on above: Performed By: #### R ENAL ####[address] [address] Sodium [Moles/Vol] 136 mmol/L Normal 136 - 145 [facility] Comment on above: Performed By: #### R ENAL ####[address] [address] Urea nitrogen [Mass/Vol] 88 mg/dL High 6 - 23 [facility] Comment on above: Performed By: #### R ENAL ####[place] [id number] [place] [address] Albumin [Mass/Vol] 2.5 g/dL Low 3.4 - 5.0 [facility] Comment on above: Performed By: #### R ENAL ####[address] [address] Anion gap [Moles/Vol] 15 mmol/L Normal 10 - 20 [facility] Comment on above: Performed By: #### R ENAL ####[address] [address] Calcium [Mass/Vol] 7.3 mg/dL Low 8.6 - 10.3 [facility] Comment on above: Performed By: #### R ENAL ####[address] [address] Chloride [Moles/Vol] 104 mmol/L Normal 98 - 107 [facility] Comment on above: Performed By: #### R ENAL ####[address] [address] Creatinine [Mass/Vol] 6.99 mg/dL High 0.50 - 1.05 [facility] Comment on above: Performed By: #### R ENAL ####[address] [address] GFR/1.73 sq M.predicted among non-blacks MDRD (S/P/Bld) [Vol rate/Area] 7 mL/min/{1.73_m2} Abnormal >90 [facility] Comment on above: Result Comment: CALC ULATIONS OF ESTIMATED GFR ARE PERFORMED USING THE 2020 CKD-EPI STUDY REFIT EQUATION WITHOUT THE RACE VARIABLE FOR THE IDMS-TRACEABLE CREATININE METHODS.https://jasn.asnjournals.org/content/early/ASN. 6335728723 Performed By: #### R ENAL ####[address] [address] Glucose [Mass/Vol] 219 mg/dL High 74 - 99 [facility] Comment on above: Performed By: #### R ENAL ####[address] [address] HCO3 (Bld) [Moles/Vol] 21 mmol/L Normal 21 - 32 [facility] Comment on above: Performed By: #### R ENAL ####[address] [address] Phosphate [Mass/Vol] 3.9 mg/dL Normal 2.5 - 4.9 [facility] Comment on above: Result Comment: The performance characteristics of phosphorus testing in heparinized plasma have been validated by the individual laboratory site where testing is performed. Testing on heparinized plasma is not approved by the FDA; however, such approval is not necessary. Performed By: #### R ENAL ####[address] [address] Potassium [Moles/Vol] 4.2 mmol/L Normal 3.5 - 5.3 [facility] Comment on above: Performed By: #### R ENAL ####[address] [address] Sodium [Moles/Vol] 136 mmol/L Normal 136 - 145 [facility] Comment on above: Performed By: #### R ENAL ####[address] [address] Urea nitrogen [Mass/Vol] 80 mg/dL High 6 - 23 [facility] Comment on above: Performed By: #### R ENAL ####[address] [address] Albumin [Mass/Vol] 2.4 g/dL Low 3.4 - 5.0 [facility] Comment on above: Performed By: #### R ENAL ####[address] [address] Calcium [Mass/Vol] 7.3 mg/dL Low 8.6 - 10.3 [facility] Comment on above: Performed By: #### R ENAL ####[address] [address] Chloride [Moles/Vol] 104 mmol/L Normal 98 - 107 [facility] Comment on above: Performed By: #### R ENAL ####[address] [address] Creatinine [Mass/Vol] 6.91 mg/dL High 0.50 - 1.05 [facility] Comment on above: Performed By: #### R ENAL ####[address] [address] GFR/1.73 sq M.predicted among non-blacks MDRD (S/P/Bld) [Vol rate/Area] 7 mL/min/{1.73_m2} Abnormal >90 [facility] Comment on above: Result Comment: CALC ULATIONS OF ESTIMATED GFR ARE PERFORMED USING THE 2020 CKD-EPI STUDY REFIT EQUATION WITHOUT THE RACE VARIABLE FOR THE IDMS-TRACEABLE CREATININE METHODS.https://jasn.asnjournals.org/content/early//ASN. 0961768500 Performed By: #### R ENAL ####[address] [address] Glucose [Mass/Vol] 216 mg/dL High 74 - 99 [facility] Comment on above: Performed By: #### R ENAL ####[address] [address] HCO3 (Bld) [Moles/Vol] 23 mmol/L Normal 21 - 32 [facility] Comment on above: Performed By: #### R ENAL ####[address] [address] Phosphate [Mass/Vol] 3.6 mg/dL Normal 2.5 - 4.9 [facility] Comment on above: Result Comment: The performance characteristics of phosphorus testing in heparinized plasma have been validated by the individual laboratory site where testing is performed. Testing on heparinized plasma is not approved by the FDA; however, such approval is not necessary. Performed By: #### R ENAL ####[address] [address] Potassium [Moles/Vol] 4.2 mmol/L Normal 3.5 - 5.3 [facility] [place] Comment on above: Performed By: #### R ENAL ####[address] [address] Sodium [Moles/Vol] 137 mmol/L Normal 136 - 145 [facility] [place] Comment on above: Performed By: #### R ENAL ####[address] [address] Urea nitrogen [Mass/Vol] 75 mg/dL High 6 - 23 [facility] [place] Comment on above: Performed By: #### R ENAL ####[address] [address] Albumin [Mass/Vol] 2.5 g/dL Low 3.4 - 5.0 [facility] [place] Comment on above: Performed By: #### R ENAL ####[address] [address] Anion gap [Moles/Vol] 15 mmol/L Normal 10 - 20 [facility] [place] Comment on above: Performed By: #### R ENAL ####[address] [address] Chloride [Moles/Vol] 103 mmol/L Normal 98 - 107 [facility] [place] Comment on above: Performed By: #### R ENAL ####[address] [address] Creatinine [Mass/Vol] 6.46 mg/dL High 0.50 - 1.05 [facility] [place] Comment on above: Performed By: #### R ENAL ####[address] [address] GFR/1.73 sq M.predicted among non-blacks MDRD (S/P/Bld) [Vol rate/Area] 8 mL/min/{1.73_m2} Abnormal >90 [facility] [place] Comment on above: Result Comment: CALC ULATIONS OF ESTIMATED GFR ARE PERFORMED USING THE 2020 CKD-EPI STUDY REFIT EQUATION WITHOUT THE RACE VARIABLE FOR THE IDMS-TRACEABLE CREATININE METHODS.https://jasn.asnjournals.org/content/early/ASN. 6996812169 Performed By: #### R ENAL ####[address] [address] Glucose [Mass/Vol] 218 mg/dL High 74 - 99 [facility] [place] Comment on above: Performed By: #### R ENAL ####[address] [address] HCO3 (Bld) [Moles/Vol] 22 mmol/L Normal 21 - 32 [facility] [place] Comment on above: Performed By: #### R ENAL ####[address] [address] Phosphate [Mass/Vol] 3.1 mg/dL Normal 2.5 - 4.9 [facility] [place] Comment on above: Result Comment: The performance characteristics of phosphorus testing in heparinized plasma have been validated by the individual laboratory site where testing is performed. Testing on heparinized plasma is not approved by the FDA; however, such approval is not necessary. Performed By: #### R ENAL ####[address] [address] Potassium [Moles/Vol] 4.1 mmol/L Normal 3.5 - 5.3 [facility] [place] Comment on above: Performed By: #### R ENAL ####[address] [address] Sodium [Moles/Vol] 136 mmol/L Normal 136 - 145 [facility] [place] Comment on above: Performed By: #### R ENAL ####[address] [address] Urea nitrogen [Mass/Vol] 67 mg/dL High 6 - 23 [facility] [place] Comment on above: Performed By: #### R ENAL ####[address] [address] REQUEST-LEUKOREDUCED RED LUIS A LSon 04-14-2021 REQUEST-LEUKOREDUCE D RED CELLS ORDER RECD Normal [facility] [place] Comment on above: Performed By: #### 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 ####[address] [place] [address] REQUEST-LEUKOREDUCE D RED CELLS ORDER RECD Normal [facility] [place] Comment on above: Performed By: #### 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 ####[address] [place] [address] Renal Function Panelon 04-14 Albumin BCP dye [Mass/Vol] 2.6 g/dL below low threshold 3.4 - 5.0 [facility] [place] [facility] Work Phone: Anion gap [Moles/Vol] 13 mmol/L 10 - 20 [facility] [place] 170 Work Phone: Calcium [Mass/Vol] 7.7 mg/dL below low threshold 8.6 - 10.3 [facility] [place] 170 Work Phone: Chloride [Moles/Vol] 99 mmol/L 98 - 107 [facility] [place] 170 Work Phone: CO2 [Moles/Vol] 28 mmol/L 21 - 32 [facility] [place] 170 Work Phone: Creatinine [Mass/Vol] 3.45 mg/dL above high threshold See Below [facility] 170 Work Phone: Comment on above: Reference Range: 0.5 0 - 1.05 Glucose [Mass/Vol] 112 mg/dL above high threshold 74 - 99 [facility] 170 Work Phone: Phosphate [Mass/Vol] 2.1 mg/dL below low threshold 2.5 - 4.9 [facility]-[place] [address] Work Phone: Comment on above: The performance jerrod acteristics of phosphorus testing in heparinized plasma have been validated by the individual laboratory site where testing is performed. Testing on heparinized plasma is not approved by the FDA; however, such approval is not necessary. Potassium [Moles/Vol] 3.6 mmol/L 3.5 - 5.3 [facility] [place] 170 Work Phone: Sodium [Moles/Vol] 136 mmol/L 136 - 145 [facility] [place] 170 Work Phone: Urea nitrogen [Mass/Vol] 39 mg/dL above high threshold 6 - 23 [facility] 170 Work Phone: Renal Function Panel 17 {mL/min/1.73m2} Abnormal >90 [facility] 170 Work Phone: Comment on above: CALCULATIONS OF RYLEE MATED GFR ARE PERFORMED USING THE 2020 CKD-EPI STUDY REFIT EQUATION WITHOUT THE RACE VARIABLE FOR THE IDMS-TRACEABLE CREATININE METHODS.https://jasn.asnjournals.org/content/early//ASN. 1730901954 Albumin BCP dye [Mass/Vol] 2.6 g/dL below low threshold 3.4 - 5.0 [facility] 170 Work Phone: Anion gap [Moles/Vol] 15 mmol/L 10 - 20 [facility] 170 Work Phone: Calcium [Mass/Vol] 7.5 mg/dL below low threshold 8.6 - 10.3 [facility] 170 Work Phone: Chloride [Moles/Vol] 103 mmol/L 98 - 107 [facility] [place] 170 Work Phone: CO2 [Moles/Vol] 22 mmol/L 21 - 32 [facility] [place] 170 Work Phone: Creatinine [Mass/Vol] 7.38 mg/dL above high threshold See Below [facility] 170 Work Phone: Comment on above: Reference Range: 0.5 0 - 1.05 Glucose [Mass/Vol] 178 mg/dL above high threshold 74 - 99 [facility] 170 Work Phone: Phosphate [Mass/Vol] 4.0 mg/dL 2.5 - 4.9 [facility] [address] Work Phone: Comment on above: The performance jerrod acteristics of phosphorus testing in heparinized plasma have been validated by the individual laboratory site where testing is performed. Testing on heparinized plasma is not approved by the FDA; however, such approval is not necessary. Potassium [Moles/Vol] 4.4 mmol/L 3.5 - 5.3 [facility] [place] [address] Work Phone: Sodium [Moles/Vol] 136 mmol/L 136 - 145 -Pul sue [place] [address] Work Phone: Urea nitrogen [Mass/Vol] 88 mg/dL above high threshold 6 - 23 -[facility] ry [place] [address] Work Phone: Renal Function Panel 7 {mL/min/1.73m2} Abnormal >90 [facility] [place] [address] Work Phone: Comment on above: CALCULATIONS OF RYLEE MATED GFR ARE PERFORMED USING THE 2020 CKD-EPI STUDY REFIT EQUATION WITHOUT THE RACE VARIABLE FOR THE IDMS-TRACEABLE CREATININE METHODS.https://jasn.asnjournals.org/content///ASN. 3847465514 Albumin BCP dye [Mass/Vol] 2.5 g/dL below low threshold 3.4 - 5.0 [facility] [place] [address] Work Phone: Anion gap [Moles/Vol] 15 mmol/L 10 - 20 [facility] [place] [address] Work Phone: Calcium [Mass/Vol] 7.3 mg/dL below low threshold 8.6 - 10.3 [facility] 170 Work Phone: Chloride [Moles/Vol] 104 mmol/L 98 - 107 [facility] 170 Work Phone: CO2 [Moles/Vol] 21 mmol/L 21 - 32 [facility] 170 Work Phone: Creatinine [Mass/Vol] 6.99 mg/dL above high threshold See Below [facility] [place] 170 Work Phone: Comment on above: Reference Range: 0.5 0 - 1.05 Glucose [Mass/Vol] 219 mg/dL above high threshold 74 - 99 [facility] 170 Work Phone: Phosphate [Mass/Vol] 3.9 mg/dL 2.5 - 4.9 [facility] 170 Work Phone: Comment on above: The performance jerrod acteristics of phosphorus testing in heparinized plasma have been validated by the individual laboratory site where testing is performed. Testing on heparinized plasma is not approved by the FDA; however, such approval is not necessary. Potassium [Moles/Vol] 4.2 mmol/L 3.5 - 5.3 [facility] 170 Work Phone: Sodium [Moles/Vol] 136 mmol/L 136 - 145 [facility] [place] 170 Work Phone: Urea nitrogen [Mass/Vol] 80 mg/dL above high threshold 6 - 23 [facility] 170 Work Phone: Renal Function Panel 7 {mL/min/1.73m2} Abnormal >90 [facility] 170 Work Phone: Comment on above: CALCULATIONS OF RYLEE MATED GFR ARE PERFORMED USING THE 2020 CKD-EPI STUDY REFIT EQUATION WITHOUT THE RACE VARIABLE FOR THE IDMS-TRACEABLE CREATININE METHODS.https://jasn.asnjournals.org/content/early/ASN. 2997156051 Albumin BCP dye [Mass/Vol] 2.4 g/dL below low threshold 3.4 - 5.0 [facility] 170 Work Phone: Anion gap [Moles/Vol] 14 mmol/L Normal 10 - 20 [facility] [address] Work Phone: Comment on above: Performed By: #### R ENAL ####[facility] [place] [address] Calcium [Mass/Vol] 7.3 mg/dL below low threshold 8.6 - 10.3 [facility] 170 Work Phone: Chloride [Moles/Vol] 104 mmol/L 98 - 107 [facility] 170 Work Phone: CO2 [Moles/Vol] 23 mmol/L 21 - 32 [facility] 170 Work Phone: Creatinine [Mass/Vol] 6.91 mg/dL above high threshold See Below [facility]-[place] [address] Work Phone: Comment on above: Reference Range: 0.5 0 - 1.05 Glucose [Mass/Vol] 216 mg/dL above high threshold 74 - 99 [facility] 170 Work Phone: Phosphate [Mass/Vol] 3.6 mg/dL 2.5 - 4.9 [facility] [address] Work Phone: Comment on above: The performance jerrod acteristics of phosphorus testing in heparinized plasma have been validated by the individual laboratory site where testing is performed. Testing on heparinized plasma is not approved by the FDA; however, such approval is not necessary. Potassium [Moles/Vol] 4.2 mmol/L 3.5 - 5.3 [facility] [facility] 170 Work Phone: Sodium [Moles/Vol] 137 mmol/L 136 - 145 [facility] sue [facility] [facility] 170 Work Phone: Urea nitrogen [Mass/Vol] 75 mg/dL above high threshold 6 - 23 [facility] [facility] 170 Work Phone: Renal Function Panel 7 {mL/min/1.73m2} Abnormal >90 [facility] [facility] 170 Work Phone: Comment on above: CALCULATIONS OF RYLEE MATED GFR ARE PERFORMED USING THE 2020 CKD-EPI STUDY REFIT EQUATION WITHOUT THE RACE VARIABLE FOR THE IDMS-TRACEABLE CREATININE METHODS.https://jasn.asnjournals.org/content/early/ASN. 5082415602 Calcium [Mass/Vol] 7.2 mg/dL Low 8.6 - 10.3 [facility] 170 Work Phone: Comment on above: Performed By: #### R ENAL ####[facility] [place] [address] Albumin BCP dye [Mass/Vol] 2.5 g/dL below low threshold 3.4 - 5.0 [facility] Medicine-[place] [facility] 170 Work Phone: Anion gap [Moles/Vol] 15 mmol/L 10 - 20 [facility] [facility] 170 Work Phone: Calcium [Mass/Vol] 7.2 mg/dL below low threshold 8.6 - 10.3 [facility] [facility] 170 Work Phone: Chloride [Moles/Vol] 103 mmol/L 98 - 107 [facility] ry [facility] 170 Work Phone: CO2 [Moles/Vol] 22 mmol/L 21 - 32 [facility]mon a ry [facility] 170 Work Phone: Creatinine [Mass/Vol] 6.46 mg/dL above high threshold See Below MP-P[facility]mona ry [place] [address] Work Phone: Comment on above: Reference Range: 0.5 0 - 1.05 Glucose [Mass/Vol] 218 mg/dL above high threshold 74 - 99 [facility] ry [place] [address] Work Phone: Phosphate [Mass/Vol] 3.1 mg/dL 2.5 - 4.9 [facility] [place] [address] Work Phone: Comment on above: The performance jerrod acteristics of phosphorus testing in heparinized plasma have been validated by the individual laboratory site where testing is performed. Testing on heparinized plasma is not approved by the FDA; however, such approval is not necessary. Potassium [Moles/Vol] 4.1 mmol/L 3.5 - 5.3 [facility] [place] [address] Work Phone: Sodium [Moles/Vol] 136 mmol/L 136 - 145 [facility] sue [place] [address] Work Phone: Urea nitrogen [Mass/Vol] 67 mg/dL above high threshold 6 - 23 [facility] ry [place] [address] Work Phone: Renal Function Panel 8 {mL/min/1.73m2} Abnormal >90 [facility] ry [place] [address] Work Phone: Comment on above: CALCULATIONS OF RYLEE MATED GFR ARE PERFORMED USING THE 2020 CKD-EPI STUDY REFIT EQUATION WITHOUT THE RACE VARIABLE FOR THE IDMS-TRACEABLE CREATININE METHODS.https://jasn.asnjournals.org/content//ASN. 6577591148 SEDIMENTATION RATE, ERYTHROC YTEon 04-14-2021 SEDIMENTATION RATE, ERYTHROCYTE 40 mm/h High 0 - 20 [facility] [place] Comment on above: Performed By: #### E SRWS ####[facility] [place] [address] Sedimentation Rate, Erythroc yteon 04-14-2021 ESR (Bld) [Velocity] 40 mm/h above high threshold 0 - 20 [facility] [facility] 170 Work Phone: T-SPOT. TBon 04-14-2021 T-SPOT. TB Passed [facility] [facility] 170 Work Phone: T-SPOT. TB 0 1 [facility] Medicine-[place] [facility] 170 Work Phone: T-SPOT. TB Negative See Below [facility] [facility] 170 Work Phone: Comment on above: Reference Range: Nor mal Value: NegativeA negative test result does not exclude the possibility of exposure to or infection with Mycobacterium tuberculosis (M. tuberculosis). Patients with recent exposure to TB infected individuals exhibiting a negative T-SPOT.TB result should be considered for retesting within 6 weeks or if other relevant clinical symptoms indicate. Results from T-SPOT.TB testing must be used in conjunction with each individual's epidemiological history, current medical status, and results of other diagnostic evaluations. The T-SPOT.TB test is qualitative and results are reported as positive, borderline or negative, given that the test controls perform as expected. In line with the Centers for Disease Control and Prevention's 2010 recommendation to report quantitative measurements alongside the qualitative result, the laboratory provides spot counts for informational purposes only. The T-SPOT.TB test should not be interpreted as a quantitative test. C Reactive Protein, Serumon 04-13-2021 CRP [Mass/Vol] 18.28 mg/dL Abnormal [facility] [facility] 170 Work Phone: Comment on above: REF VALUE< 1.00 C-REACTIVE PROTEINon 022 C-REACTIVE PROTEIN 18.28 mg/dL Abnormal [facility] [place] [place] Comment on above: Result Comment: REF VALUE< 1.00 Performed By: #### C RP ####[address] [address] C3 Complement, Serumon 04-13 Complement C3 [Mass/Vol] 128 mg/dL 87 - 200 [facility] Medicine-[place] [facility] 170 Work Phone: CALCIUM, IONIZEDon CALCIUM,IONIZED Canceled Normal [facility] [place] Comment on above: Order Comment: TEST CALCIUM, IONIZED WAS CANCELLED, 04/13/2021 10:55 NO SPECIMEN RECEIVED INLAB. Performed By: #### I ONC1 ####[address] [address] CBCon 04-13-2021 Erythrocyte distribution width (RBC) [Ratio] 17.9 % High 11.5 - 14.5 [facility] [place] Comment on above: Performed By: #### C BC ####[address] [address] Hematocrit (Bld) [Volume fraction] 22.0 % Low 36.0 - 46.0 [facility] [place] Comment on above: Performed By: #### C BC ####[address] [address] Hemoglobin (Bld) [Mass/Vol] 7.2 g/dL Low 12.0 - 16.0 [facility] [place] Comment on above: Performed By: #### C BC ####[address] [address] MCHC (RBC) [Mass/Vol] 32.7 g/dL Normal 32.0 - 36.0 [facility] [place] Comment on above: Performed By: #### C BC ####[address] [address] MCV (RBC) [Entitic vol] 85 fL Normal 80 - 100 [facility] [place] Comment on above: Performed By: #### C BC ####[facility] [place] [address] NUCLEATED RBC 0.0 /100 WBC Normal 0.0 - 0.0 [facility] [place] Comment on above: Performed By: #### C BC ####[facility] [place] [address] Platelets (Bld) [#/Vol] 202 10*3/uL Normal 150 - 450 [facility] [place] Comment on above: Performed By: #### C BC ####[address] [address] RBC 2.59 x10E12/L Low 4.00 - 5.20 [facility] [place] Comment on above: Performed By: #### C BC ####[address] [address] WBC (Bld) [#/Vol] 11.4 10*3/uL High 4.4 - 11.3 [facility] [place] [place] Comment on above: Performed By: #### C BC ####[address] [address] Erythrocyte distribution width (RBC) [Ratio] 18.2 % High 11.5 - 14.5 [facility] [place] Comment on above: Performed By: #### C BC ####[address] [address] Hematocrit (Bld) [Volume fraction] 22.4 % Low 36.0 - 46.0 [facility] [place] Comment on above: Performed By: #### C BC ####[address] [address] Hemoglobin (Bld) [Mass/Vol] 7.2 g/dL Low 12.0 - 16.0 [facility] [place] Comment on above: Performed By: #### C BC ####[address] [address] MCHC (RBC) [Mass/Vol] 32.1 g/dL Normal 32.0 - 36.0 [facility] [place] Comment on above: Performed By: #### C BC ####[address] [address] MCV (RBC) [Entitic vol] 85 fL Normal 80 - 100 [facility] [place] Comment on above: Performed By: #### C BC ####[address] [address] NUCLEATED RBC 0.0 /100 WBC Normal 0.0 - 0.0 [facility] [place] Comment on above: Performed By: #### C BC ####[address] [address] Platelets (Bld) [#/Vol] 185 10*3/uL Normal 150 - 450 [facility] [place] Comment on above: Performed By: #### C BC ####[address] [address] RBC 2.65 x10E12/L Low 4.00 - 5.20 [facility] [place] Comment on above: Performed By: #### C BC ####[address] [address] WBC (Bld) [#/Vol] 9.9 10*3/uL Normal 4.4 - 11.3 [facility] [place] Comment on above: Performed By: #### C BC ####[address] [address] Erythrocyte distribution width (RBC) [Ratio] 17.5 % High 11.5 - 14.5 [facility] 170 Work Phone: Comment on above: Reference Range: 11. 5 - 14.5 Performed By: #### C BC ####[address] [address] Hematocrit (Bld) [Volume fraction] 21.9 % Low 36.0 - 46.0 [facility] 170 Work Phone: Comment on above: Reference Range: 36. 0 - 46.0 Performed By: #### C BC ####[address] [address] Hemoglobin (Bld) [Mass/Vol] 7.2 g/dL Low 12.0 - 16.0 [facility] Comment on above: Performed By: #### C BC ####[address] [place] [address] MCHC (RBC) [Mass/Vol] 32.9 g/dL Normal 32.0 - 36.0 -[facility] 170 Work Phone: Comment on above: Reference Range: 32. 0 - 36.0 Performed By: #### C BC ####[address] [address] MCV (RBC) [Entitic vol] 83 fL Normal 80 - 100 -[facility] 170 Work Phone: Comment on above: Performed By: #### C BC ####[address] [address] NUCLEATED RBC 0.0 /100 WBC Normal 0.0 - 0.0 [facility] [place] Comment on above: Performed By: #### C BC ####[address] [address] Platelets (Bld) [#/Vol] 154 10*3/uL Normal 150 - 450 -[facility] [place] 170 Work Phone: Comment on above: Performed By: #### C BC ####[address] [place] [address] RBC 2.64 x10E12/L Low 4.00 - 5.20 [facility] [place] Comment on above: Performed By: #### C BC ####[address] [address] WBC (Bld) [#/Vol] 8.1 10*3/uL Normal 4.4 - 11.3 -[facility] 170 Work Phone: Comment on above: Performed By: #### C BC ####[address] [address] CHEST 1 VIEWon 04-13-2021 CHEST 1 VIEW Normal [facility] Consult-Hematology - Oncolog yon 04-13-2021 Consult-Hematology - Oncology Normal [facility] [place] Daily Progress Note - Critic al Careon 04-13-2021 Daily Progress Note - Critical Care Normal [facility] [place] Daily Progress Note-Medicine on 04-13-2021 Daily Progress Note-Medicine Normal [facility] [place] Daily Progress Note-Nephrolo gyon 04-13-2021 Daily Progress Note-Nephrology Normal [facility] [place] EMR ADDONon 04-13-2021 ADDON CONFIRMATION Canceled Normal [facility] [place] Comment on above: Order Comment: TEST EMR ADDON WAS CANCELLED, 04/13/2021 12:43 NO SSTR TUBE RECEIVED TO ADDLABS ON TO. Performed By: #### E MRAD ####[address] [address] GLUCOSE-POCTon 04-13-2021 Glucose [Mass/Vol] 267 mg/dL High 74 - 99 [facility] [place] Comment on above: Performed By: #### G ОЛЬГА ####[address] [address] Glucose [Mass/Vol] 223 mg/dL High 74 - 99 [facility] [place] Comment on above: Performed By: #### G ОЛЬГА ####[address] [address] Glucose [Mass/Vol] 177 mg/dL High 74 - 99 [facility] [place] Comment on above: Performed By: #### G ОЛЬГА ####[address] [address] Glucose [Mass/Vol] 198 mg/dL High 74 - 99 [facility] Comment on above: Performed By: #### G ОЛЬГА ####[address] [address] Glucose [Mass/Vol] 224 mg/dL High 74 - 99 [facility] [place] Comment on above: Performed By: #### G ОЛЬГА ####[address] [address] GROUP A STREP,PCRon 04-13-19 22 GROUP A STREP,PCR Not detected Normal Not Detected [facility] [place] Comment on above: Result Comment: This test was performed utilizing an FDA- cleared rapid nucleic acid amplification by PCR to qualitatively detect Group A Streptococci from throat swab specimens without the need for culture confirmation of negative results. Performed By: #### G APC1 ####[facility] [facility] [place] [address] Lab Specimen Source Throat Normal [facility] [place], [place] Comment on above: Performed By: #### G APC1 ####[facility] [place] [address] Glomerular Basement Membrane Antibodyon 04-13-2021 Basement membrane IgG Qn (S) 5 {units} 0-20 [facility] 170 Work Phone: Comment on above: Negative 0 - 20 Weak Positive 21 - 30 Moderate to Strong Positive >30 HAPTOGLOBINon 04-13-2021 HAPTOGLOBIN 212 mg/dL High 30 - 200 [facility] [place] Comment on above: Performed By: #### H APTO ####[id number] [place] [address] Laboratory - Chemistry and C hemistry - challengeon 04-13-2021 Glucose [Mass/Vol] 245 mg/dL above high threshold 74 - 99 [facility] 170 Work Phone: Glucose [Mass/Vol] 260 mg/dL above high threshold 74 - 99 [facility] Work Phone: Glucose [Mass/Vol] 267 mg/dL above high threshold 74 - 99 [facility] 170 Work Phone: Glucose [Mass/Vol] 223 mg/dL above high threshold 74 - 99 [facility] 170 Work Phone: Glucose [Mass/Vol] 177 mg/dL above high threshold 74 - 99 [facility] ry Medicine-[facility] 170 Work Phone: Glucose [Mass/Vol] 198 mg/dL above high threshold 74 - 99 -[facility]diasa ry [facility] 170 Work Phone: Glucose [Mass/Vol] 224 mg/dL above high threshold 74 - 99 -[place] [address] Work Phone: Laboratory - Coagulationon 0 04-13-2021 INR Coag (PPP) [Relative time] 1.1 {INR} 0.9 - 1.1 -[place] [address] Work Phone: PT Coag (PPP) [Time] 13.2 s 9.8 - 13.4 -[place] [address] Work Phone: Comment on above: Note new reference r alberto as of 02/11/2021 at 10:00am. Laboratory - Hematology and Cell countson 04-13-2021 Erythrocyte distribution width (RBC) [Ratio] 17.9 % above high threshold See Below [facility] [place] [address] Work Phone: Comment on above: Reference Range: 11. 5 - 14.5 Hematocrit (Bld) [Volume fraction] 22.0 % below low threshold See Below [facility] [place] [address] Work Phone: Comment on above: Reference Range: 36. 0 - 46.0 Hemoglobin (Bld) [Mass/Vol] 7.2 g/dL below low threshold See Below -[place] [address] Work Phone: Comment on above: Reference Range: 12. 0 - 16.0 MCHC (RBC) [Mass/Vol] 32.7 g/dL See Below -[place] [address] Work Phone: Comment on above: Reference Range: 32. 0 - 36.0 MCV (RBC) [Entitic vol] 85 fL 80 - 100 [facility] [address] Work Phone: Platelets (Bld) [#/Vol] 202 10*3/uL 150 - 450 MP-[facility] 170 Work Phone: RBC (Bld) [#/Vol] 2.59 {x10E12/L} below low threshold See Below [facility] [address] Work Phone: Comment on above: Reference Range: 4.0 0 - 5.20 WBC (Bld) [#/Vol] 11.4 10*3/uL above high threshold 4.4 - 11.3 [facility] [address] Work Phone: Erythrocyte distribution width (RBC) [Ratio] 18.2 % above high threshold See Below -[place] [address] Work Phone: Comment on above: Reference Range: 11. 5 - 14.5 Hematocrit (Bld) [Volume fraction] 22.4 % below low threshold See Below -[place] [address] Work Phone: Comment on above: Reference Range: 36. 0 - 46.0 Hemoglobin (Bld) [Mass/Vol] 7.2 g/dL below low threshold See Below -[place] [address] Work Phone: Comment on above: Reference Range: 12. 0 - 16.0 MCHC (RBC) [Mass/Vol] 32.1 g/dL See Below [facility] [address] Work Phone: Comment on above: Reference Range: 32. 0 - 36.0 MCV (RBC) [Entitic vol] 85 fL 80 - 100 [facility] [address] Work Phone: Platelets (Bld) [#/Vol] 185 10*3/uL 150 - 450 [facility] [address] Work Phone: RBC (Bld) [#/Vol] 2.65 {x10E12/L} below low threshold See Below -[place] [address] Work Phone: Comment on above: Reference Range: 4.0 0 - 5.20 WBC (Bld) [#/Vol] 9.9 10*3/uL 4.4 - 11.3 MP-[place] [address] Work Phone: RBC (Bld) [#/Vol] 2.64 {x10E12/L} below low threshold See Below [facility] [place] [address] Work Phone: Comment on above: Reference Range: 4.0 0 - 5.20 MAGNESIUMon 04-13-2021 Magnesium [Mass/Vol] 2.30 mg/dL Normal 1.60 - 2.40 [facility] Comment on above: Performed By: #### M G ####[address] [address] Magnesium [Mass/Vol] 2.30 mg/dL Normal 1.60 - 2.40 [facility] Comment on above: Performed By: #### M G ####[address] [address] Magnesium [Mass/Vol] 2.20 mg/dL Normal 1.60 - 2.40 [facility] Comment on above: Performed By: #### M G ####[address] [address] Magnesium [Mass/Vol] 2.30 mg/dL Normal 1.60 - 2.40 [facility] Comment on above: Performed By: #### M G ####[address] [address] Magnesium [Mass/Vol] 2.00 mg/dL Normal 1.60 - 2.40 [facility] Comment on above: Performed By: #### M G ####[address] [place] [address] Magnesium, Serumon Magnesium [Mass/Vol] 2.30 mg/dL See Below -[place] 170 Work Phone: Comment on above: Reference Range: 1.6 0 - 2.40 Magnesium [Mass/Vol] 2.30 mg/dL See Below -[place] [facility] 170 Work Phone: Comment on above: Reference Range: 1.6 0 - 2.40 Magnesium [Mass/Vol] 2.20 mg/dL See Below -[place] [facility] 170 Work Phone: Comment on above: Reference Range: 1.6 0 - 2.40 Magnesium [Mass/Vol] 2.30 mg/dL See Below -[facility] 170 Work Phone: Comment on above: Reference Range: 1.6 0 - 2.40 Magnesium [Mass/Vol] 2.10 mg/dL Normal 1.60 - 2.40 -[facility] 170 Work Phone: Comment on above: Reference Range: 1.6 0 - 2.40 Performed By: #### M G ####[facility] [place] [address] No Panel Informationon 04-13 0.0 {/100_WBC} 0.0 - 0.0 [facility] [address] Work Phone: 0.0 {/100_WBC} 0.0 - 0.0 [facility] [address] Work Phone: PT/INRon 04-13-2021 PT Coag (PPP) [Time] 13.2 s Normal 9.8 - 13.4 [facility] Comment on above: Result Comment: Note new reference range as of 02/11/2021 at 10:00am. Performed By: #### P TINR ####[address] [address] PT, INR 1.1 Normal 0.9 - 1.1 [facility] Comment on above: Performed By: #### P TINR ####[address] [address] RENAL FUNCTION PANELon 04-13 Albumin [Mass/Vol] 2.5 g/dL Low 3.4 - 5.0 [facility] Comment on above: Performed By: #### R ENAL ####[address] [address] Anion gap [Moles/Vol] 13 mmol/L Normal 10 - 20 [facility] Comment on above: Performed By: #### R ENAL ####[address] [address] Calcium [Mass/Vol] 7.4 mg/dL Low 8.6 - 10.3 [facility] Comment on above: Performed By: #### R ENAL ####[address] [address] Chloride [Moles/Vol] 104 mmol/L Normal 98 - 107 [facility] Comment on above: Performed By: #### R ENAL ####[address] [address] Creatinine [Mass/Vol] 6.03 mg/dL High 0.50 - 1.05 [facility] Comment on above: Performed By: #### R ENAL ####[address] [address] GFR/1.73 sq M.predicted among non-blacks MDRD (S/P/Bld) [Vol rate/Area] 9 mL/min/{1.73_m2} Abnormal >90 [facility] Comment on above: Result Comment: CALC ULATIONS OF ESTIMATED GFR ARE PERFORMED USING THE 2020 CKD-EPI STUDY REFIT EQUATION WITHOUT THE RACE VARIABLE FOR THE IDMS-TRACEABLE CREATININE METHODS.https://jasn.asnjournals.org/content//ASN. 5575249025 Performed By: #### R ENAL ####[address] [address] Glucose [Mass/Vol] 251 mg/dL High 74 - 99 [facility] Comment on above: Performed By: #### R ENAL ####[address] [address] HCO3 (Bld) [Moles/Vol] 23 mmol/L Normal 21 - 32 [facility] Comment on above: Performed By: #### R ENAL ####[address] [address] Phosphate [Mass/Vol] 2.9 mg/dL Normal 2.5 - 4.9 [facility] Comment on above: Result Comment: The performance characteristics of phosphorus testing in heparinized plasma have been validated by the individual laboratory site where testing is performed. Testing on heparinized plasma is not approved by the FDA; however, such approval is not necessary. Performed By: #### R ENAL ####[address] [address] Potassium [Moles/Vol] 4.0 mmol/L Normal 3.5 - 5.3 [facility] Comment on above: Performed By: #### R ENAL ####[address] [address] Sodium [Moles/Vol] 136 mmol/L Normal 136 - 145 [facility] Comment on above: Performed By: #### R ENAL ####[address] [address] Urea nitrogen [Mass/Vol] 61 mg/dL High 6 - 23 [facility] Comment on above: Performed By: #### R ENAL ####[address] [address] Albumin [Mass/Vol] 2.6 g/dL Low 3.4 - 5.0 [facility] Comment on above: Performed By: #### R ENAL ####[address] [address] Anion gap [Moles/Vol] 13 mmol/L Normal 10 - 20 [facility] Comment on above: Performed By: #### R ENAL ####[facility] [facility] [place] [address] Calcium [Mass/Vol] 7.4 mg/dL Low 8.6 - 10.3 [facility] Comment on above: Performed By: #### R ENAL ####[place] [id number] [place] [address] Chloride [Moles/Vol] 103 mmol/L Normal 98 - 107 [facility] Comment on above: Performed By: #### R ENAL ####[address] [address] Creatinine [Mass/Vol] 5.75 mg/dL High 0.50 - 1.05 [facility] Comment on above: Performed By: #### R ENAL ####[address] [address] GFR/1.73 sq M.predicted among non-blacks MDRD (S/P/Bld) [Vol rate/Area] 9 mL/min/{1.73_m2} Abnormal >90 [facility] Comment on above: Result Comment: CALC ULATIONS OF ESTIMATED GFR ARE PERFORMED USING THE 2020 CKD-EPI STUDY REFIT EQUATION WITHOUT THE RACE VARIABLE FOR THE IDMS-TRACEABLE CREATININE METHODS.https://jasn.asnjournals.org/content//ASN. 1387724851 Performed By: #### R ENAL ####[place] [id number] [place] [address] Glucose [Mass/Vol] 271 mg/dL High 74 - 99 [facility] Comment on above: Performed By: #### R ENAL ####[place] [id number] [place] [address] HCO3 (Bld) [Moles/Vol] 23 mmol/L Normal 21 - 32 [facility] Comment on above: Performed By: #### R ENAL ####[place] [id number] [place] [address] Phosphate [Mass/Vol] 2.9 mg/dL Normal 2.5 - 4.9 [facility] Comment on above: Result Comment: The performance characteristics of phosphorus testing in heparinized plasma have been validated by the individual laboratory site where testing is performed. Testing on heparinized plasma is not approved by the FDA; however, such approval is not necessary. Performed By: #### R ENAL ####[address] [address] Potassium [Moles/Vol] 4.0 mmol/L Normal 3.5 - 5.3 [facility] Comment on above: Performed By: #### R ENAL ####[address] [address] Sodium [Moles/Vol] 135 mmol/L Low 136 - 145 [facility] Comment on above: Performed By: #### R ENAL ####[address] [address] Urea nitrogen [Mass/Vol] 58 mg/dL High 6 - 23 [facility] Comment on above: Performed By: #### R ENAL ####[address] [address] Albumin [Mass/Vol] 2.6 g/dL Low 3.4 - 5.0 [facility] Comment on above: Performed By: #### R ENAL ####[address] [address] Anion gap [Moles/Vol] 14 mmol/L Normal 10 - 20 [facility] Comment on above: Performed By: #### R ENAL ####[address] [address] Calcium [Mass/Vol] 7.4 mg/dL Low 8.6 - 10.3 [facility] Comment on above: Performed By: #### R ENAL ####[address] [address] Chloride [Moles/Vol] 104 mmol/L Normal 98 - 107 [facility] Comment on above: Performed By: #### R ENAL ####[address] [address] Creatinine [Mass/Vol] 6.89 mg/dL High 0.50 - 1.05 [facility] Comment on above: Performed By: #### R ENAL ####[address] [address] GFR/1.73 sq M.predicted among non-blacks MDRD (S/P/Bld) [Vol rate/Area] 7 mL/min/{1.73_m2} Abnormal >90 [facility] Comment on above: Result Comment: CALC ULATIONS OF ESTIMATED GFR ARE PERFORMED USING THE 2020 CKD-EPI STUDY REFIT EQUATION WITHOUT THE RACE VARIABLE FOR THE IDMS-TRACEABLE CREATININE METHODS.https://jasn.asnjournals.org/content//ASN. 0575435951 Performed By: #### R ENAL ####[address] [address] Glucose [Mass/Vol] 191 mg/dL High 74 - 99 [facility] Comment on above: Performed By: #### R ENAL ####[address] [address] HCO3 (Bld) [Moles/Vol] 23 mmol/L Normal 21 - 32 [facility] Comment on above: Performed By: #### R ENAL ####[address] [address] Phosphate [Mass/Vol] 3.4 mg/dL Normal 2.5 - 4.9 [facility] Comment on above: Result Comment: The performance characteristics of phosphorus testing in heparinized plasma have been validated by the individual laboratory site where testing is performed. Testing on heparinized plasma is not approved by the FDA; however, such approval is not necessary. Performed By: #### R ENAL ####[address] [address] Potassium [Moles/Vol] 4.0 mmol/L Normal 3.5 - 5.3 [facility] Comment on above: Performed By: #### R ENAL ####[address] [address] Sodium [Moles/Vol] 137 mmol/L Normal 136 - 145 [facility] Comment on above: Performed By: #### R ENAL ####[address] [place] [address] Urea nitrogen [Mass/Vol] 64 mg/dL High 6 - 23 [facility] Comment on above: Performed By: #### R ENAL ####[address] [place] [address] Albumin [Mass/Vol] 2.5 g/dL Low 3.4 - 5.0 [facility] Comment on above: Performed By: #### R ENAL ####[address] [address] Anion gap [Moles/Vol] 14 mmol/L Normal 10 - 20 [facility] Comment on above: Performed By: #### R ENAL ####[address] [address] Calcium [Mass/Vol] 7.5 mg/dL Low 8.6 - 10.3 [facility] Comment on above: Performed By: #### R ENAL ####[address] [address] Chloride [Moles/Vol] 103 mmol/L Normal 98 - 107 [facility] Comment on above: Performed By: #### R ENAL ####[address] [address] Creatinine [Mass/Vol] 7.76 mg/dL High 0.50 - 1.05 [facility] Comment on above: Performed By: #### R ENAL ####[address] [address] GFR/1.73 sq M.predicted among non-blacks MDRD (S/P/Bld) [Vol rate/Area] 6 mL/min/{1.73_m2} Abnormal >90 [facility] Comment on above: Result Comment: CALC ULATIONS OF ESTIMATED GFR ARE PERFORMED USING THE 2020 CKD-EPI STUDY REFIT EQUATION WITHOUT THE RACE VARIABLE FOR THE IDMS-TRACEABLE CREATININE METHODS.https://jasn.asnjournals.org/content//ASN. 4396122377 Performed By: #### R ENAL ####[address] [address] Glucose [Mass/Vol] 172 mg/dL High 74 - 99 [facility] Comment on above: Performed By: #### R ENAL ####[address] [address] HCO3 (Bld) [Moles/Vol] 23 mmol/L Normal 21 - 32 [facility] Comment on above: Performed By: #### R ENAL ####[address] [address] Phosphate [Mass/Vol] 3.7 mg/dL Normal 2.5 - 4.9 [facility] Comment on above: Result Comment: The performance characteristics of phosphorus testing in heparinized plasma have been validated by the individual laboratory site where testing is performed. Testing on heparinized plasma is not approved by the FDA; however, such approval is not necessary. Performed By: #### R ENAL ####[address] [address] Potassium [Moles/Vol] 3.9 mmol/L Normal 3.5 - 5.3 [facility] Comment on above: Performed By: #### R ENAL ####[address] [address] Sodium [Moles/Vol] 136 mmol/L Normal 136 - 145 [facility] Comment on above: Performed By: #### R ENAL ####[address] [address] Urea nitrogen [Mass/Vol] 69 mg/dL High 6 - 23 [facility] Comment on above: Performed By: #### R ENAL ####[address] [address] Albumin [Mass/Vol] 2.3 g/dL Low 3.4 - 5.0 [facility] Comment on above: Performed By: #### R ENAL ####[address] [address] GFR/1.73 sq M.predicted among non-blacks MDRD (S/P/Bld) [Vol rate/Area] 5 mL/min/{1.73_m2} Abnormal >90 [facility] Comment on above: Result Comment: CALC ULATIONS OF ESTIMATED GFR ARE PERFORMED USING THE 2020 CKD-EPI STUDY REFIT EQUATION WITHOUT THE RACE VARIABLE FOR THE IDMS-TRACEABLE CREATININE METHODS.https://jasn.asnjournals.org/content/early/ASN. 5417707937 Performed By: #### R ENAL ####[address] [address] HCO3 (Bld) [Moles/Vol] 21 mmol/L Normal 21 - 32 [facility] Comment on above: Performed By: #### R ENAL ####[address] [address] Sodium [Moles/Vol] 135 mmol/L Low 136 - 145 [facility] Comment on above: Performed By: #### R ENAL ####[address] [address] Albumin [Mass/Vol] 2.4 g/dL Low 3.4 - 5.0 [facility] Comment on above: Performed By: #### R ENAL ####[address] [address] Calcium [Mass/Vol] 7.3 mg/dL Low 8.6 - 10.3 [facility] Comment on above: Performed By: #### R ENAL ####[address] [address] Chloride [Moles/Vol] 101 mmol/L Normal 98 - 107 [facility] Comment on above: Performed By: #### R ENAL ####[address] [address] Creatinine [Mass/Vol] 10.28 mg/dL High 0.50 - 1.05 [facility] Comment on above: Performed By: #### R ENAL ####[address] [address] GFR/1.73 sq M.predicted among non-blacks MDRD (S/P/Bld) [Vol rate/Area] 4 mL/min/{1.73_m2} Abnormal >90 [facility] Comment on above: Result Comment: CALC ULATIONS OF ESTIMATED GFR ARE PERFORMED USING THE 2020 CKD-EPI STUDY REFIT EQUATION WITHOUT THE RACE VARIABLE FOR THE IDMS-TRACEABLE CREATININE METHODS.https://jasn.asnjournals.org/content/early/ASN. 0050497459 Performed By: #### R ENAL ####[address] [address] Glucose [Mass/Vol] 188 mg/dL High 74 - 99 [facility] Comment on above: Performed By: #### R ENAL ####[address] [address] HCO3 (Bld) [Moles/Vol] 20 mmol/L Low 21 - 32 [facility] Comment on above: Performed By: #### R ENAL ####[address] [address] Phosphate [Mass/Vol] 4.6 mg/dL Normal 2.5 - 4.9 [facility] Comment on above: Result Comment: The performance characteristics of phosphorus testing in heparinized plasma have been validated by the individual laboratory site where testing is performed. Testing on heparinized plasma is not approved by the FDA; however, such approval is not necessary. Performed By: #### R ENAL ####[address] [address] Potassium [Moles/Vol] 3.7 mmol/L Normal 3.5 - 5.3 [facility] Comment on above: Performed By: #### R ENAL ####[address] [address] Sodium [Moles/Vol] 133 mmol/L Low 136 - 145 [facility] Comment on above: Performed By: #### R ENAL ####[address] [address] Urea nitrogen [Mass/Vol] 87 mg/dL High 6 - 23 [facility] Comment on above: Performed By: #### R ENAL ####[facility] [place] [address] Radiologyon 04-13-2021 XR Chest Single view Normal [facility] [facility] Work Phone: Renal Function Panelon 04-13 Albumin BCP dye [Mass/Vol] 2.5 g/dL below low threshold 3.4 - 5.0 [facility] [facility] [place] [facility] Work Phone: Anion gap [Moles/Vol] 13 mmol/L 10 - 20 [facility] [facility] [place] [facility] Work Phone: Calcium [Mass/Vol] 7.4 mg/dL below low threshold 8.6 - 10.3 [facility] [facility] 170 Work Phone: Chloride [Moles/Vol] 104 mmol/L 98 - 107 [facility] [facility] 170 Work Phone: CO2 [Moles/Vol] 23 mmol/L 21 - 32 [facility] [place] [facility] Work Phone: Creatinine [Mass/Vol] 6.03 mg/dL above high threshold See Below [facility]-[place] [address] Work Phone: Comment on above: Reference Range: 0.5 0 - 1.05 Glucose [Mass/Vol] 251 mg/dL above high threshold 74 - 99 [facility] [place] [facility] Work Phone: Phosphate [Mass/Vol] 2.9 mg/dL 2.5 - 4.9 [place] [address] Work Phone: Comment on above: The performance jerrod acteristics of phosphorus testing in heparinized plasma have been validated by the individual laboratory site where testing is performed. Testing on heparinized plasma is not approved by the FDA; however, such approval is not necessary. Potassium [Moles/Vol] 4.0 mmol/L 3.5 - 5.3 [facility] 170 Work Phone: Sodium [Moles/Vol] 136 mmol/L 136 - 145 -[facility] 170 Work Phone: Urea nitrogen [Mass/Vol] 61 mg/dL above high threshold 6 - 23 [facility] 170 Work Phone: Renal Function Panel 9 {mL/min/1.73m2} Abnormal >90 [facility] [address] Work Phone: Comment on above: CALCULATIONS OF RYLEE MATED GFR ARE PERFORMED USING THE 2020 CKD-EPI STUDY REFIT EQUATION WITHOUT THE RACE VARIABLE FOR THE IDMS-TRACEABLE CREATININE METHODS.https://jasn.asnjournals.org/content/early//ASN. 9891806968 Albumin BCP dye [Mass/Vol] 2.6 g/dL below low threshold 3.4 - 5.0 [facility] 170 Work Phone: Anion gap [Moles/Vol] 13 mmol/L 10 - 20 -[facility] 170 Work Phone: Calcium [Mass/Vol] 7.4 mg/dL below low threshold 8.6 - 10.3 [facility] 170 Work Phone: Chloride [Moles/Vol] 103 mmol/L 98 - 107 [facility] 170 Work Phone: CO2 [Moles/Vol] 23 mmol/L 21 - 32 [facility] 170 Work Phone: Creatinine [Mass/Vol] 5.75 mg/dL above high threshold See Below [facility] [place] [address] Work Phone: Comment on above: Reference Range: 0.5 0 - 1.05 Glucose [Mass/Vol] 271 mg/dL above high threshold 74 - 99 -[place] [facility] 170 Work Phone: Phosphate [Mass/Vol] 2.9 mg/dL 2.5 - 4.9 [facility] [place] [address] Work Phone: Comment on above: The performance jerrod acteristics of phosphorus testing in heparinized plasma have been validated by the individual laboratory site where testing is performed. Testing on heparinized plasma is not approved by the FDA; however, such approval is not necessary. Potassium [Moles/Vol] 4.0 mmol/L 3.5 - 5.3 [facility] 170 Work Phone: Sodium [Moles/Vol] 135 mmol/L below low threshold 136 - 145 [facility] [place] [address] Work Phone: Urea nitrogen [Mass/Vol] 58 mg/dL above high threshold 6 - 23 [facility] [place] [address] Work Phone: Renal Function Panel 9 {mL/min/1.73m2} Abnormal >90 [facility] [place] [address] Work Phone: Comment on above: CALCULATIONS OF RYLEE MATED GFR ARE PERFORMED USING THE 2020 CKD-EPI STUDY REFIT EQUATION WITHOUT THE RACE VARIABLE FOR THE IDMS-TRACEABLE CREATININE METHODS.https://jasn.asnjournals.org/content//ASN. 7781788492 Albumin BCP dye [Mass/Vol] 2.6 g/dL below low threshold 3.4 - 5.0 [facility] [place] [address] Work Phone: Anion gap [Moles/Vol] 14 mmol/L 10 - 20 [facility] [place] [address] Work Phone: Calcium [Mass/Vol] 7.4 mg/dL below low threshold 8.6 - 10.3 [facility] [place] [facility] Work Phone: Chloride [Moles/Vol] 104 mmol/L 98 - 107 [facility] [facility] 170 Work Phone: CO2 [Moles/Vol] 23 mmol/L 21 - 32 [facility] 170 Work Phone: Creatinine [Mass/Vol] 6.89 mg/dL above high threshold See Below [facility] 170 Work Phone: Comment on above: Reference Range: 0.5 0 - 1.05 Glucose [Mass/Vol] 191 mg/dL above high threshold 74 - 99 [facility] [facility] 170 Work Phone: Phosphate [Mass/Vol] 3.4 mg/dL 2.5 - 4.9 [facility] [address] Work Phone: Comment on above: The performance jerrod acteristics of phosphorus testing in heparinized plasma have been validated by the individual laboratory site where testing is performed. Testing on heparinized plasma is not approved by the FDA; however, such approval is not necessary. Potassium [Moles/Vol] 4.0 mmol/L 3.5 - 5.3 [facility] [facility] 170 Work Phone: Sodium [Moles/Vol] 137 mmol/L 136 - 145 [facility] Work Phone: Urea nitrogen [Mass/Vol] 64 mg/dL above high threshold 6 - 23 [facility] [address] Work Phone: Renal Function Panel 7 {mL/min/1.73m2} Abnormal >90 [facility] [address] Work Phone: Comment on above: CALCULATIONS OF RYLEE MATED GFR ARE PERFORMED USING THE 2020 CKD-EPI STUDY REFIT EQUATION WITHOUT THE RACE VARIABLE FOR THE IDMS-TRACEABLE CREATININE METHODS.https://jasn.asnjournals.org/content//ASN. [id number] Albumin BCP dye [Mass/Vol] 2.5 g/dL below low threshold 3.4 - 5.0 [place] [address] Work Phone: Anion gap [Moles/Vol] 14 mmol/L 10 - 20 [place] [address] Work Phone: Calcium [Mass/Vol] 7.5 mg/dL below low threshold 8.6 - 10.3 [place] [address] Work Phone: Chloride [Moles/Vol] 103 mmol/L 98 - 107 [place] [address] Work Phone: CO2 [Moles/Vol] 23 mmol/L 21 - 32 [place] [address] Work Phone: Creatinine [Mass/Vol] 7.76 mg/dL above high threshold See Below [facility] [address] Work Phone: Comment on above: Reference Range: 0.5 0 - 1.05 Glucose [Mass/Vol] 172 mg/dL above high threshold 74 - 99 [facility] [place] [facility] Work Phone: Phosphate [Mass/Vol] 3.7 mg/dL 2.5 - 4.9 [place] [address] Work Phone: Comment on above: The performance jerrod acteristics of phosphorus testing in heparinized plasma have been validated by the individual laboratory site where testing is performed. Testing on heparinized plasma is not approved by the FDA; however, such approval is not necessary. Potassium [Moles/Vol] 3.9 mmol/L 3.5 - 5.3 [facility] [facility] 170 Work Phone: Sodium [Moles/Vol] 136 mmol/L 136 - 145 MP-[facility]ul sue ry Medicine-[facility] 170 Work Phone: Urea nitrogen [Mass/Vol] 69 mg/dL above high threshold 6 - 23 [facility] Medicine-[facility] 170 Work Phone: Renal Function Panel 6 {mL/min/1.73m2} Abnormal >90 MP-[facility] ry Medicine-[place] [facility] 170 Work Phone: Comment on above: CALCULATIONS OF RYLEE MATED GFR ARE PERFORMED USING THE 2020 CKD-EPI STUDY REFIT EQUATION WITHOUT THE RACE VARIABLE FOR THE IDMS-TRACEABLE CREATININE METHODS.https://jasn.asnjournals.org/content/early//ASN. 4820966562 Anion gap [Moles/Vol] 16 mmol/L Normal 10 - 20 MP-[facility] ry Medicine-[facility] [place] 170 Work Phone: Comment on above: Performed By: #### R ENAL ####[address] [address] Calcium [Mass/Vol] 6.9 mg/dL Low 8.6 - 10.3 MP-Pul sue ry [facility] 170 Work Phone: Comment on above: Performed By: #### R ENAL ####[address] [address] Chloride [Moles/Vol] 102 mmol/L Normal 98 - 107 MP-[facility] ry Medicine-[facility] 170 Work Phone: Comment on above: Performed By: #### R ENAL ####[address] [address] Creatinine [Mass/Vol] 9.68 mg/dL High 0.50 - 1.05 MP-[facility] 170 Work Phone: Comment on above: Reference Range: 0.5 0 - 1.05 Performed By: #### R ENAL ####[address] [address] Glucose [Mass/Vol] 199 mg/dL High 74 - 99 MP-Pul sue ry Medicine-[facility] 170 Work Phone: Comment on above: Performed By: #### R ENAL ####[address] [address] Phosphate [Mass/Vol] 4.5 mg/dL Normal 2.5 - 4.9 -[facility] 170 Work Phone: Comment on above: The performance jerrod acteristics of phosphorus testing in heparinized plasma have been validated by the individual laboratory site where testing is performed. Testing on heparinized plasma is not approved by the FDA; however, such approval is not necessary. Result Comment: The performance characteristics of phosphorus testing in heparinized plasma have been validated by the individual laboratory site where testing is performed. Testing on heparinized plasma is not approved by the FDA; however, such approval is not necessary. Performed By: #### R ENAL ####[address] [address] Potassium [Moles/Vol] 3.8 mmol/L Normal 3.5 - 5.3 -[facility] 170 Work Phone: Comment on above: Performed By: #### R ENAL ####[address] [address] Urea nitrogen [Mass/Vol] 79 mg/dL High 6 - 23 [facility] 170 Work Phone: Comment on above: Performed By: #### R ENAL ####[address] [address] Albumin BCP dye [Mass/Vol] 2.3 g/dL below low threshold 3.4 - 5.0 [facility] Work Phone: CO2 [Moles/Vol] 21 mmol/L 21 - 32 [facility] Work Phone: Renal Function Panel 5 {mL/min/1.73m2} Abnormal >90 MP-[facility]a ry Medicine-[facility] 170 Work Phone: Comment on above: CALCULATIONS OF RYLEE MATED GFR ARE PERFORMED USING THE 2020 CKD-EPI STUDY REFIT EQUATION WITHOUT THE RACE VARIABLE FOR THE IDMS-TRACEABLE CREATININE METHODS.https://jasn.asnjournals.org/content/early/ASN. 8911465487 UA MICROSCOPICon 04-13-2021 BACTERIA 4+ /HPF Abnormal [facility] Comment on above: Performed By: #### U AMIC ####[address] [address] CELLULAR CAST 1+ /LPF Abnormal [facility] Comment on above: Performed By: #### U AMIC ####[address] [address] RBC 51-100 Abnormal 0-5 [facility] Comment on above: Performed By: #### U AMIC ####[address] [address] SQUAMOUS EPITH. CELLS 1+ /HPF Normal [facility] Comment on above: Performed By: #### U AMIC ####[address] [address] WBC 51-100 Abnormal 0-5 [facility] Comment on above: Performed By: #### U AMIC ####[address] [address] URINALYSISon 04-13-2021 Appearance (U) HAZY Normal CLEAR [facility] Comment on above: Performed By: #### U A ####[address] [address] Bilirubin Ql (U) Negative Normal NEGATIVE [facility] Comment on above: Performed By: #### U A ####[address] [address] Color (U) YELLOW Normal STRAW,YELLOW [facility] Comment on above: Performed By: #### U A ####[address] [address] Glucose Ql (U) 150 (2+) Abnormal NEGATIVE [facility] Comment on above: Performed By: #### U A ####[address] [address] Hemoglobin Ql (U) LARGE (3+) Abnormal NEGATIVE [facility] Comment on above: Performed By: #### U A ####[address] [address] Ketones Ql (U) Negative Normal NEGATIVE [facility] Comment on above: Performed By: #### U A ####[address] [address] Leukocyte esterase Test strip Ql (U) MODERATE (2+) Abnormal NEGATIVE [facility] Comment on above: Performed By: #### U A ####[address] [address] Nitrite Ql (U) Positive Abnormal NEGATIVE [facility] Comment on above: Performed By: #### U A ####[address] [address] pH (U) 7.0 [pH] Normal 5.0 - 8.0 [facility] Comment on above: Performed By: #### U A ####[address] [address] Protein Ql (U) >=500 (3+) Abnormal NEGATIVE [facility] Comment on above: Performed By: #### U A ####[address] [address] Specific gravity (U) [Rel density] 1.010 Normal 1.005 - 1.035 [facility] Comment on above: Performed By: #### U A ####[facility] [place] [address] Urobilinogen (U) [Mass/Vol] mg/dL Normal 0.0 - 1.9 [facility] Comment on above: Performed By: #### U A ####[facility] [place] [address] ABO/RH GROUP TESTon 04-12-19 ABO TYPE A Normal [facility] Comment on above: Performed By: #### V ERAB ####[address] [address] RH TYPE Positive Normal [facility] Comment on above: Performed By: #### V ERAB ####[address] [address] WILMA + AVA PANELon 04-12-2021 ANTI-CENTROMERE <0.2 [facility] Comment on above: Result Comment: REF VALUES< 1.0 = NEGATIVE>=1.0 = POSITIVE Performed By: #### A NAP2 ####[id number] [place] [address] ANTI-CHROMATIN <0.2 Normal [facility] Comment on above: Result Comment: REF VALUES< 1.0 = NEGATIVE>=1.0 = POSITIVE Performed By: #### A NAP2 ####[id number] [place] [address] ANTI-DNA [DS] <1.0 Normal [facility] Comment on above: Result Comment: REF VALUESNEGATIVE: <= 4 IU/MLEQUIVOCAL: 5- 9 IU/MLPOSITIVE: >=10 IU/ML Performed By: #### A NAP2 ####[id number] [place] [address] ANTI-KATHERINE-1 <0.2 Normal [facility] Comment on above: Result Comment: REF VALUES< 1.0 = NEGATIVE>=1.0 = POSITIVE Performed By: #### A NAP2 ####[id number] [place] [address] ANTI-RIBOSOMAL P <0.2 Normal [facility] Comment on above: Result Comment: REF VALUES< 1.0 = NEGATIVE>=1.0 = POSITIVE Performed By: #### A NAP2 ####[id number] [place] [address] ANTI-MANAGER EXPRESS 0.3 AI [facility] Comment on above: Result Comment: REF VALUES< 1.0 = NEGATIVE>=1.0 = POSITIVE Performed By: #### A NAP2 ####[id number] [place] [address] ANTI-SCL-70 <0.2 [facility] Comment on above: Result Comment: REF VALUES< 1.0 = NEGATIVE>=1.0 = POSITIVE Performed By: #### A NAP2 ####[id number] [place] [address] ANTI-SM <0.2 Normal [facility] Comment on above: Result Comment: REF VALUES< 1.0 = NEGATIVE>=1.0 = POSITIVE Performed By: #### A NAP2 ####[id number] [place] [address] ANTI-SM/MANAGER EXPRESS <0.2 [facility] Comment on above: Result Comment: REF VALUES< 1.0 = NEGATIVE>=1.0 = POSITIVE Performed By: #### A NAP2 ####[id number] [place] [address] ANTI-SSA <0.2 [facility] Comment on above: Result Comment: REF VALUES< 1.0 = NEGATIVE>=1.0 = POSITIVE Performed By: #### A NAP2 ####[id number] [place] [address] ANTI-SSB <0.2 [facility] Comment on above: Result Comment: REF VALUES< 1.0 = NEGATIVE>=1.0 = POSITIVE Performed By: #### A NAP2 ####[id number] [place] [address] ANCA-ASSOCIATED VASCULITIS P ROFILE [ANCA,MPO,PR3]on 04-12-2021 Myeloperoxidase Ab Qn (S) 0 AU/mL 0-19 -[facility] 170 Work Phone: Comment on above: INTERPRETIVE INFORMA TION: Myeloperoxidase Abs, IgG 19 AU/mL or Less ......... Negative 20-25 AU/mL .............. Equivocal 26 AU/mL or Greater ...... PositiveApproximately 90% of patients with a P-ANCA pattern by IFA have antibodies specific for MPO. Proteinase 3 Ab Qn (S) 1319 AU/mL above high threshold 0-19 [facility] 170 Work Phone: Comment on above: INTERPRETIVE INFORMA TION: Serine Proteinase 3, IgG 19 AU/mL or Less ........ Negative 20-25 AU/mL ............. Equivocal 26 AU/mL or Greater ..... PositiveApproximately 85% of patients with a C-ANCA pattern by IFA have antibodies specific for PR3. ANCA-ASSOCIATED VASCULITIS PROFILE [ANCA,MPO,PR3] c-ANCA Abnormal See Below [facility] 170 Work Phone: Comment on above: Reference Range: Non e DetectedINTERPRETIVE INFORMATION: ANCA IFA Pattern Neutrophil Cytoplasmic Antibodies (C-ANCA = granular cytoplasmic staining, P-ANCA = perinuclear staining) are found in the serum of over 90 percent of patients with certain necrotizing systemic vasculitides, and usually in less than 5 percent of patients with collagen vascular disease or arthritis.Performed By: [facility] [place] [id number] Director: Niecy Conklin MD ANCA-ASSOCIATED VASCULITIS PROFILE [ANCA,MPO,PR3] 1:640 above high threshold <1:20 [facility] 170 Work Phone: APTTon 04-12-2021 aPTT Coag (Bld) [Time] 26 s Normal 26 - 39 [facility] Comment on above: Result Comment: Note new reference range as of 02/11/2021 at 10:00am. Performed By: #### A PTT ####[address] [place] [address] ARTERIAL FULL PANELon 2021 ANION GAP SEE COMMENT Normal 10 - 25 [facility] Comment on above: Result Comment: NOT CALCULATED Performed By: #### A FPA3 ####[address] [place] [address] BASE EXCESS-BLOOD -17.1 mmol/L Low -2.0 - 3.0 [facility] [place] [place] Comment on above: Performed By: #### A FPA3 ####[address] [address] BICARB, CALCULATED 8.0 mmol/L Low 22.0 - 26.0 [facility] [place] [place] Comment on above: Performed By: #### A FPA3 ####[address] [address] CALCIUM,IONIZED 0.79 mmol/L Low 1.10 - 1.33 [facility] Comment on above: Performed By: #### A FPA3 ####[address] [address] CHLORIDE SEE COMMENT Normal 98 - 107 [facility] Comment on above: Result Comment: NOT CALCULATED Performed By: #### A FPA3 ####[address] [address] Glucose [Mass/Vol] 122 mg/dL High 74 - 99 [facility] Comment on above: Performed By: #### A FPA3 ####[address] [place] [address] Hematocrit (Bld) [Volume fraction] 16.0 % Low 36.0 - 46.0 [facility] Comment on above: Performed By: #### A FPA3 ####[address] [place] [address] HGB, CALCULATED 5.4 g/dL Low 12.0 - 16.0 [facility] Comment on above: Performed By: #### A FPA3 ####[address] [address] Lactate [Moles/Vol] 1.2 mmol/L Normal 0.4 - 2.0 [facility] [place] [place] Comment on above: Performed By: #### A FPA3 ####[address] [address] Oxygen (Bld) [Partial pressure] 118 mm[Hg] High 85 - 95 [facility] Comment on above: Performed By: #### A FPA3 ####[address] [address] PATIENT TEMPERATURE 37.0 degrees C Normal [facility] Comment on above: Result Comment: NOTE : PATIENT RESULTS ARE NOT CORRECTED FOR TEMPERATURE. Performed By: #### A FPA3 ####[address] [address] PCO2 17 mmHg Low 38 - 42 [facility] Comment on above: Performed By: #### A FPA3 ####[address] [address] pH (Bld) 7.28 [pH] Low 7.38 - 7.42 [facility] Comment on above: Performed By: #### A FPA3 ####[address] [address] Potassium [Moles/Vol] 5.8 mmol/L High 3.5 - 5.3 [facility] Comment on above: Performed By: #### A FPA3 ####[address] [address] SO2 99 % Normal 94 - 100 [facility] Comment on above: Performed By: #### A FPA3 ####[address] [address] Sodium [Moles/Vol] 126 mmol/L Low 136 - 145 [facility] Comment on above: Performed By: #### A FPA3 ####[address] [address] ASOon 04-12-2021 ASO 270 IU/mL High 0 - 200 [facility] Comment on above: Performed By: #### A SO ####[id number] [place] [address] Activated Partial Thrombopla stin Timeon 04-12-2021 aPTT Coag (PPP) [Time] 26 s 26 - 39 [facility] 170 Work Phone: Comment on above: Note new reference enma dominguez as of 02/11/2021 at 10:00am. Admission Risk Screen - Adul ton 04-12-2021 Admission Risk Screen - Adult Normal [facility] Anti-DNAase B Antibodyon Streptococcal DNAse B (S) [Titer] <86 0-260 -[facility] [place] [facility] 170 Work Phone: Comment on above: REFERENCE INTERVAL: DNAse B AntibodyAccess complete set of age- and/or gender-specific reference intervals for this test in the [employer] [facility] Test Directory ([employer]).Performed By: [employer] [place] [id number] Director: Niecy Conklin MD BASIC METABOLIC PANELon 03-16 Urea nitrogen [Mass/Vol] 147 mg/dL High 6 - 23 [facility] Comment on above: Result Comment: This is a critical result.Per Laboratory policy, critical results for this testonly qualify to the call list once per 24 hours. Performed By: #### B MP ####[address] [address] Anion gap [Moles/Vol] 23 mmol/L High 10 - 20 [facility] Comment on above: Performed By: #### B MP ####[address] [address] Calcium [Mass/Vol] 6.9 mg/dL Low 8.6 - 10.3 [facility] Comment on above: Performed By: #### B MP ####[address] [address] Chloride [Moles/Vol] 99 mmol/L Normal 98 - 107 [facility] Comment on above: Performed By: #### B MP ####[address] [place] [address] Creatinine [Mass/Vol] 17.79 mg/dL High 0.50 - 1.05 [facility] Comment on above: Performed By: #### B MP ####[address] [address] GFR/1.73 sq M.predicted among non-blacks MDRD (S/P/Bld) [Vol rate/Area] 2 mL/min/{1.73_m2} Abnormal >90 [facility] Comment on above: Result Comment: CALC ULATIONS OF ESTIMATED GFR ARE PERFORMED USING THE 2020 CKD-EPI STUDY REFIT EQUATION WITHOUT THE RACE VARIABLE FOR THE IDMS-TRACEABLE CREATININE METHODS.https://jasn.asnjournals.org/content/early//ASN. 1673338618 Performed By: #### B MP ####[address] [address] Glucose [Mass/Vol] 99 mg/dL Normal 74 - 99 [facility] Comment on above: Performed By: #### B MP ####[address] [address] HCO3 (Bld) [Moles/Vol] 13 mmol/L Low 21 - 32 [facility] Comment on above: Performed By: #### B MP ####[address] [address] Potassium [Moles/Vol] 5.0 mmol/L Normal 3.5 - 5.3 [facility] Comment on above: Performed By: #### B MP ####[address] [address] Sodium [Moles/Vol] 130 mmol/L Low 136 - 145 [facility] Comment on above: Performed By: #### B MP ####[address] [address] BILIRUBIN,DIRECTon 2 Bilirubin.indirect [Mass/Vol] 0.2 mg/dL Normal 0.0 - 0.3 [facility] Comment on above: Performed By: #### D BILI ####[facility] [facility] [place] [address] BILIRUBIN,DIRECT Canceled Normal [facility] Comment on above: Order Comment: TEST BILIRUBIN,DIRECT WAS CANCELLED, 04/12/2021 00:02 DUPLICATE ORDER: Orderscombined. Performed By: #### D BILI ####[facility] [facility] [place] [address] BLOOD CULTURE, BACTERIALon 0 04-12-2021 BLOOD CULTURE, BACTERIAL Normal [facility] Comment on above: Performed By: #### B LDC ####[id number] [place] [address] Bilirubin, Serum Direct - Co njugatedon 04-12-2021 Bilirubin.direct [Mass/Vol] 0.2 mg/dL 0.0 - 0.3 MP-[facility] 170 Work Phone: C Reactive Protein, Serumon 04-12-2021 CRP [Mass/Vol] 22.96 mg/dL Abnormal -[facility] 170 Work Phone: Comment on above: REF VALUE< 1.00 C-REACTIVE PROTEINon 022 C-REACTIVE PROTEIN 22.96 mg/dL Abnormal [facility] [place] [place] Comment on above: Result Comment: REF VALUE< 1.00 Performed By: #### C RP ####[facility] [facility] [place] [address] C3 COMPLEMENTon 04-12-2021 C3 COMPLEMENT 126 mg/dL Normal 87 - 200 [facility] Comment on above: Performed By: #### C 3 ####[id number] [place] [address] C3 Complement, Serumon 04-12 Complement C3 [Mass/Vol] 126 mg/dL 87 - 200 -[facility] 170 Work Phone: C4 COMPLEMENTon 04-12-2021 C4 COMPLEMENT 33 mg/dL Normal 10 - 50 [facility] Comment on above: Performed By: #### C 4 ####[id number] [place] [address] C4 Complement, Serumon 04-12 Complement C4 [Mass/Vol] 33 mg/dL 10 - 50 [facility] [facility] 170 Work Phone: CALCIUM, IONIZEDon 2 CALCIUM,IONIZED 1.00 mmol/L Low 1.10 - 1.33 [facility] Comment on above: Performed By: #### I ONC1 ####[address] [address] CBCon 04-12-2021 Erythrocyte distribution width (RBC) [Ratio] 17.2 % High 11.5 - 14.5 [facility] Comment on above: Performed By: #### C BC ####[address] [address] Hematocrit (Bld) [Volume fraction] 21.6 % Low 36.0 - 46.0 [facility] Comment on above: Performed By: #### C BC ####[address] [address] Hemoglobin (Bld) [Mass/Vol] 7.2 g/dL Low 12.0 - 16.0 [facility] Comment on above: Performed By: #### C BC ####[address] [address] MCHC (RBC) [Mass/Vol] 33.3 g/dL Normal 32.0 - 36.0 [facility] Comment on above: Performed By: #### C BC ####[address] [address] MCV (RBC) [Entitic vol] 82 fL Normal 80 - 100 [facility] Comment on above: Performed By: #### C BC ####[address] [address] NUCLEATED RBC 0.0 /100 WBC Normal 0.0 - 0.0 [facility] Comment on above: Performed By: #### C BC ####[address] [address] Platelets (Bld) [#/Vol] 122 10*3/uL Low 150 - 450 [facility] Comment on above: Performed By: #### C BC ####[address] [address] RBC 2.63 x10E12/L Low 4.00 - 5.20 [facility] Comment on above: Performed By: #### C BC ####[address] [address] WBC (Bld) [#/Vol] 7.8 10*3/uL Normal 4.4 - 11.3 [facility] Comment on above: Performed By: #### C BC ####[address] [address] Erythrocyte distribution width (RBC) [Ratio] 17.2 % High 11.5 - 14.5 [facility] Comment on above: Performed By: #### C BC ####[address] [address] Hematocrit (Bld) [Volume fraction] 21.6 % Low 36.0 - 46.0 [facility] Comment on above: Performed By: #### C BC ####[address] [address] Hemoglobin (Bld) [Mass/Vol] 7.2 g/dL Low 12.0 - 16.0 [facility] Comment on above: Performed By: #### C BC ####[address] [address] MCHC (RBC) [Mass/Vol] 33.3 g/dL Normal 32.0 - 36.0 [facility] Comment on above: Performed By: #### C BC ####[address] [address] MCV (RBC) [Entitic vol] 83 fL Normal 80 - 100 [facility] Comment on above: Performed By: #### C BC ####[address] [address] NUCLEATED RBC 0.0 /100 WBC Normal 0.0 - 0.0 [facility] Comment on above: Performed By: #### C BC ####[address] [place] [address] Platelets (Bld) [#/Vol] 135 10*3/uL Low 150 - 450 [facility] Comment on above: Performed By: #### C BC ####[address] [place] [address] RBC 2.60 x10E12/L Low 4.00 - 5.20 [facility] Comment on above: Performed By: #### C BC ####[address] [place] [address] WBC (Bld) [#/Vol] 11.8 10*3/uL High 4.4 - 11.3 [facility] [place] [place] Comment on above: Performed By: #### C BC ####[address] [place] [address] Erythrocyte distribution width (RBC) [Ratio] 18.5 % High 11.5 - 14.5 [facility] Comment on above: Order Comment: Aguilar d- RB to norm cintron, 04/12/2021 00:48 Performed By: #### C BC ####[address] [address] Hematocrit (Bld) [Volume fraction] 18.7 % Low 36.0 - 46.0 [facility] Comment on above: Order Comment: Aguilar d- RB to norm cintron, 04/12/2021 00:48 Performed By: #### C BC ####[address] [place] [address] Hemoglobin (Bld) [Mass/Vol] 6.0 g/dL Critically low 12.0 - 16.0 [facility] Comment on above: Order Comment: Aguilar d- RB to norm cintron, 04/12/2021 00:48 Result Comment: Call ed- RB to norm cintron, 04/12/2021 00:48 Performed By: #### C BC ####[address] [place] [address] MCHC (RBC) [Mass/Vol] 32.1 g/dL Normal 32.0 - 36.0 [facility] Comment on above: Order Comment: Aguilar d- RB to norm cintron, 04/12/2021 00:48 Performed By: #### C BC ####[address] [place] [address] MCV (RBC) [Entitic vol] 85 fL Normal 80 - 100 [facility] Comment on above: Order Comment: Aguilar d- RB to norm cintron, 04/12/2021 00:48 Performed By: #### C BC ####[address] [address] NUCLEATED RBC 0.0 /100 WBC Normal 0.0 - 0.0 [facility] Comment on above: Order Comment: Aguilar d- RB to norm cintron, 04/12/2021 00:48 Performed By: #### C BC ####[address] [address] Platelets (Bld) [#/Vol] 154 10*3/uL Normal 150 - 450 [facility] [place] Comment on above: Order Comment: Aguilar d- RB to norm cintron, 04/12/2021 00:48 Performed By: #### C BC ####[address] [address] RBC 2.19 x10E12/L Low 4.00 - 5.20 [facility] [place] Comment on above: Order Comment: Aguilar d- RB to norm cintron, 04/12/2021 00:48 Performed By: #### C BC ####[address] [address] WBC (Bld) [#/Vol] 15.1 10*3/uL High 4.4 - 11.3 [facility] [place], [place] Comment on above: Order Comment: Aguilar d- RB to norm cintron, 04/12/2021 00:48 Performed By: #### C BC ####[address] [address] CBC AND DIFFERENTIALon 04-12 % AUTOMATED IMMATURE GRAN 1.3 % High 0.0 - 0.9 [facility] [place] Comment on above: Order Comment: Aguilar d- RB to brian lozano, 04/12/2021 06:02 Result Comment: Annamarie saldivar Granulocyte Count (IG) includes promyelocytes, myelocytes and metamyelocytes but does not include bands. Percent differential counts (%) should be interpreted in the context of the absolute cell counts (cells/L). Performed By: #### C BCDF ####[address] [address] Basophils (Bld) [#/Vol] 0.03 10*3/uL Normal 0.00 - 0.10 [facility] [place] Comment on above: Order Comment: Aguilar d- RB to brian lozano, 04/12/2021 06:02 Performed By: #### C BCDF ####[address] [address] Basophils/100 WBC (Bld) 0.3 % Normal 0.0 - 2.0 [facility] [place] Comment on above: Order Comment: Aguilar d- RB to brian lozano, 04/12/2021 06:02 Performed By: #### C BCDF ####[address] [address] Eosinophils (Bld) [#/Vol] 0.06 10*3/uL Normal 0.00 - 0.70 [facility] [place] Comment on above: Order Comment: Aguilar d- RB to brian lozano, 04/12/2021 06:02 Performed By: #### C BCDF ####[address] [address] Eosinophils/100 WBC (Bld) 0.5 % Normal 0.0 - 6.0 [facility] [place] Comment on above: Order Comment: Aguilar d- RB to brian lozano, 04/12/2021 06:02 Performed By: #### C BCDF ####[address] [address] Erythrocyte distribution width (RBC) [Ratio] 17.2 % High 11.5 - 14.5 [facility] [place] Comment on above: Order Comment: Aguilar d- RB to brian lozano, 04/12/2021 06:02 Performed By: #### C BCDF ####[address] [place] [address] Hematocrit (Bld) [Volume fraction] 18.4 % Low 36.0 - 46.0 [facility] [place] Comment on above: Order Comment: Aguilar d- RB to brian lozano, 04/12/2021 06:02 Performed By: #### C BCDF ####[address] [place] [address] Hemoglobin (Bld) [Mass/Vol] 6.0 g/dL Critically low 12.0 - 16.0 [facility] [place] Comment on above: Order Comment: Aguilar d- RB to brian lozano, 04/12/2021 06:02 Result Comment: Call ed- RB to brian lozano, 04/12/2021 06:02 Performed By: #### C BCDF ####[address] [place] [address] Lymphocytes (Bld) [#/Vol] 0.46 10*3/uL Low 1.20 - 4.80 [facility] [place] Comment on above: Order Comment: Aguilar d- RB to brian lozano, 04/12/2021 06:02 Performed By: #### C BCDF ####[address] [place] [address] Lymphocytes/100 WBC (Bld) 3.9 % Normal 13.0 - 44.0 [facility] [place] Comment on above: Order Comment: Aguilar d- RB to brian lozano, 04/12/2021 06:02 Performed By: #### C BCDF ####[address] [place] [address] MCHC (RBC) [Mass/Vol] 32.6 g/dL Normal 32.0 - 36.0 [facility] [place] Comment on above: Order Comment: Aguilar d- RB to brian lozano, 04/12/2021 06:02 Performed By: #### C BCDF ####[address] [place] [address] MCV (RBC) [Entitic vol] 83 fL Normal 80 - 100 [facility] [place] Comment on above: Order Comment: Aguilar d- RB to brian lozano, 04/12/2021 06:02 Performed By: #### C BCDF ####[address] [address] Monocytes (Bld) [#/Vol] 1.27 10*3/uL High 0.10 - 1.00 [facility] [place] Comment on above: Order Comment: Aguilar d- RB to brian lozano, 04/12/2021 06:02 Performed By: #### C BCDF ####[address] [address] Monocytes/100 WBC (Bld) 10.7 % Normal 2.0 - 10.0 [facility] [place] Comment on above: Order Comment: Aguilar d- RB to brian lozano, 04/12/2021 06:02 Performed By: #### C BCDF ####[address] [address] Neutrophils (Bld) [#/Vol] 9.86 10*3/uL High 1.20 - 7.70 [facility] [place] Comment on above: Order Comment: Aguilar d- RB to brian lozano, 04/12/2021 06:02 Performed By: #### C BCDF ####[address] [address] Neutrophils/100 WBC (Bld) 83.3 % Normal 40.0 - 80.0 [facility] [place] Comment on above: Order Comment: Aguilar d- RB to brian lozano, 04/12/2021 06:02 Performed By: #### C BCDF ####[address] [address] NUCLEATED RBC 0.0 /100 WBC Normal 0.0 - 0.0 [facility] [place] Comment on above: Order Comment: Aguilar d- RB to brian lozano, 04/12/2021 06:02 Performed By: #### C BCDF ####[address] [address] Platelets (Bld) [#/Vol] 126 10*3/uL Low 150 - 450 [facility] [place] Comment on above: Order Comment: Aguilar d- RB to brian lozano, 04/12/2021 06:02 Performed By: #### C BCDF ####[address] [address] RBC 2.21 x10E12/L Low 4.00 - 5.20 [facility] [place] Comment on above: Order Comment: Aguilar d- RB to brian lozano, 04/12/2021 06:02 Performed By: #### C BCDF ####[address] [address] WBC (Bld) [#/Vol] 11.8 10*3/uL High 4.4 - 11.3 [facility] [place], [place] Comment on above: Order Comment: Aguilar d- RB to brian lozano, 04/12/2021 06:02 Performed By: #### C BCDF ####[address] [address] COMPREHENSIVE PANELon 2021 Urea nitrogen [Mass/Vol] 173 mg/dL Critically high 6 - 23 [facility] [place] Comment on above: Order Comment: Aguilar d- RB to Brian Maurice, 04/12/2021 01:13 Result Comment: Call ed- RB to Brian Maurice, 04/12/2021 01:13 Performed By: #### C MP ####[address] [address] Albumin [Mass/Vol] 2.5 g/dL Low 3.4 - 5.0 [facility] [place] Comment on above: Order Comment: Aguilar d- RB to Brian Maurice, 04/12/2021 01:13 Performed By: #### C MP ####[address] [address] ALP [Catalytic activity/Vol] 79 U/L Normal 33 - 110 [facility] [place] Comment on above: Order Comment: Aguilar d- RB to Brian Maurice, 04/12/2021 01:13 Performed By: #### C MP ####[address] [place] [address] ALT [Catalytic activity/Vol] 36 U/L Normal 7 - 45 [facility] [place] Comment on above: Order Comment: Aguilar d- RB to Brian Maurice, 04/12/2021 01:13 Result Comment: Elma ents treated with Sulfasalazine may generate falsely decreased results for ALT. Performed By: #### C MP ####[address] [place] [address] Anion gap [Moles/Vol] 28 mmol/L High 10 - 20 [facility] [place] Comment on above: Order Comment: Aguilar d- RB to Brian Maurice, 04/12/2021 01:13 Performed By: #### C MP ####[address] [place] [address] AST [Catalytic activity/Vol] 23 U/L Normal 9 - 39 [facility] [place] Comment on above: Order Comment: Aguilar d- RB to Brian Maurice, 04/12/2021 01:13 Performed By: #### C MP ####[address] [place] [address] Bilirubin [Mass/Vol] 0.7 mg/dL Normal 0.0 - 1.2 [facility] [place] Comment on above: Order Comment: Aguilar d- RB to Brian Maurice, 04/12/2021 01:13 Performed By: #### C MP ####[address] [place] [address] Calcium [Mass/Vol] 6.0 mg/dL Low 8.6 - 10.3 [facility] [place] Comment on above: Order Comment: Aguilar d- RB to Brian Maurice, 04/12/2021 01:13 Performed By: #### C MP ####[address] [place] [address] Chloride [Moles/Vol] 96 mmol/L Low 98 - 107 [facility] [place] Comment on above: Order Comment: Aguilar d- RB to Brian Syjohn paul, 04/12/2021 01:13 Performed By: #### C MP ####[address] [place] [address] Creatinine [Mass/Vol] 20.91 mg/dL High 0.50 - 1.05 [facility] [place] Comment on above: Order Comment: Aguilar d- RB to Brian Maurice, 04/12/2021 01:13 Performed By: #### C MP ####[address] [place] [address] GFR/1.73 sq M.predicted among non-blacks MDRD (S/P/Bld) [Vol rate/Area] 2 mL/min/{1.73_m2} Abnormal >90 [facility] [place] Comment on above: Order Comment: Aguilar d- RB to Brian Maurice, 04/12/2021 01:13 Result Comment: CALC ULATIONS OF ESTIMATED GFR ARE PERFORMED USING THE 2020 CKD-EPI STUDY REFIT EQUATION WITHOUT THE RACE VARIABLE FOR THE IDMS-TRACEABLE CREATININE METHODS.https://jasn.asnjournals.org/content/early//ASN. 6884292432 Performed By: #### C MP ####[address] [address] Glucose [Mass/Vol] 110 mg/dL High 74 - 99 [facility] [place] Comment on above: Order Comment: Aguilar d- RB to Brian Maurice, 04/12/2021 01:13 Performed By: #### C MP ####[address] [place] [address] HCO3 (Bld) [Moles/Vol] 10 mmol/L Critically low 21 - 32 [facility] [place] Comment on above: Order Comment: Aguilar d- RB to Brian Maurice, 04/12/2021 01:13 Result Comment: Call ed- RB to Brian Maurice, 04/12/2021 01:13 Performed By: #### C MP ####[address] [address] Potassium [Moles/Vol] 5.9 mmol/L High 3.5 - 5.3 [facility] [place] Comment on above: Order Comment: Aguilar d- RB to Brian Maurice, 04/12/2021 01:13 Performed By: #### C MP ####[address] [place] [address] Protein [Mass/Vol] 6.3 g/dL Low 6.4 - 8.2 [facility] [place] Comment on above: Order Comment: Aguilar d- RB to Brian Maurice, 04/12/2021 01:13 Performed By: #### C MP ####[address] [place] [address] Sodium [Moles/Vol] 128 mmol/L Low 136 - 145 [facility] [place] Comment on above: Order Comment: Aguilar d- RB to Brian Maurice, 04/12/2021 01:13 Performed By: #### C MP ####[address] [place] [address] COOX PANEL, ARTERIALon 04-12 CO HGB 2.1 % Abnormal [facility] [place] Comment on above: Order Comment: Aguilar d- RB to norm cintron, 04/12/2021 00:05 Result Comment: REF VALUESNONSMOKERS 0.5-1.5%SMOKERS 0.5-10.0% Performed By: #### C OOXA ####[address] [place] [address] DEOXY HGB 0.6 % Normal 0.0 - 5.0 [facility] [place] Comment on above: Order Comment: Aguilar d- RB to norm cintron, 04/12/2021 00:05 Performed By: #### C OOXA ####[address] [place] [address] Hemoglobin (Bld) [Mass/Vol] 6.3 g/dL Critically low 12.0 - 16.0 [facility] [place] Comment on above: Order Comment: Aguilar d- RB to norm cintron, 04/12/2021 00:05 Result Comment: Call ed- RB to norm cintron, 04/12/2021 00:05 Performed By: #### C OOXA ####[address] [place] [address] MET HGB 1.1 % Normal 0.0 - 1.5 [facility] [place] Comment on above: Order Comment: Aguilar d- RB to norm cintron, 04/12/2021 00:05 Performed By: #### C OOXA ####[place] [id number] [facility] [place] [address] OXY HGB 96.1 % Normal 94.0 - 98.0 [facility] [place] Comment on above: Order Comment: Aguilar d- RB to norm cintron, 04/12/2021 00:05 Performed By: #### C OOXA ####[address] [address] [address] Chest High Resolutionon 0 04-12-2021 CT Chest High Resolution Normal [facility] 170 Work Phone: CT Neck with Contraston 03-16 CT Neck W contrast IV Normal [facility] 170 Work Phone: Calcium, Ionized Levelon Calcium, Ionized Level 1.00 mmol/L below low threshold See Below [facility] 170 Work Phone: Comment on above: Reference Range: 1.1 0 - 1.33 Calcium, Ionized Level Canceled [facility] 170 Work Phone: Clinical Intervention - Phar macyon 04-12-2021 Clinical Intervention - Pharmacy Normal [facility] [place] Complete Blood Count + Diffe rentialon 04-12-2021 Basophils/100 WBC (Bld) 0.3 % 0.0 - 2.0 [facility] 170 Work Phone: Erythrocyte distribution width (RBC) [Ratio] 17.2 % above high threshold See Below [facility] 170 Work Phone: Comment on above: Reference Range: 11. 5 - 14.5 Hematocrit (Bld) [Volume fraction] 18.4 % below low threshold See Below -[place] [address] Work Phone: Comment on above: Reference Range: 36. 0 - 46.0 Hemoglobin (Bld) [Mass/Vol] 6.0 g/dL Critically low See Below [facility] [address] Work Phone: Comment on above: Reference Range: 12. 0 - 16.0 Called- RB to brian lozano, 04/12/2021 06:02 Lymphocytes/100 WBC (Bld) 3.9 % See Below [facility] [place] [address] Work Phone: Comment on above: Reference Range: 13. 0 - 44.0 MCHC (RBC) [Mass/Vol] 32.6 g/dL See Below -[place] [address] Work Phone: Comment on above: Reference Range: 32. 0 - 36.0 MCV (RBC) [Entitic vol] 83 fL 80 - 100 [facility] [address] Work Phone: Monocytes/100 WBC (Bld) 10.7 % 2.0 - 10.0 [place] [address] Work Phone: Neutrophils/100 WBC (Bld) 83.3 % See Below -[place] [address] Work Phone: Comment on above: Reference Range: 40. 0 - 80.0 Platelets (Bld) [#/Vol] 126 10*3/uL below low threshold 150 - 450 [facility] [address] Work Phone: RBC (Bld) [#/Vol] 2.21 {x10E12/L} below low threshold See Below [facility] [address] Work Phone: Comment on above: Reference Range: 4.0 0 - 5.20 WBC (Bld) [#/Vol] 11.8 10*3/uL above high threshold 4.4 - 11.3 [facility] [address] Work Phone: Complete Blood Count + Differential 0.03 {x10E9/L} See Below [facility] [place] [address] Work Phone: Comment on above: Reference Range: 0.0 0 - 0.10 Complete Blood Count + Differential 0.06 {x10E9/L} See Below [facility] [place] [address] Work Phone: Comment on above: Reference Range: 0.0 0 - 0.70 Complete Blood Count + Differential 1.27 {x10E9/L} above high threshold See Below [facility] [place] [address] Work Phone: Comment on above: Reference Range: 0.1 0 - 1.00 Complete Blood Count + Differential 0.46 {x10E9/L} below low threshold See Below [facility] [place] [address] Work Phone: Comment on above: Reference Range: 1.2 0 - 4.80 Complete Blood Count + Differential 9.86 {x10E9/L} above high threshold See Below [facility] [place] [address] Work Phone: Comment on above: Reference Range: 1.2 0 - 7.70 Complete Blood Count + Differential 0.5 % 0.0 - 6.0 [facility] [address] Work Phone: Complete Blood Count + Differential 1.3 % above high threshold 0.0 - 0.9 [facility] [address] Work Phone: Comment on above: Immature Granulocyte Count (IG) includes promyelocytes, myelocytes and metamyelocytes but does not include bands. Percent differential counts (%) should be interpreted in the context of the absolute cell counts (cells/L). Complete Blood Count + Differential 0.0 {/100_WBC} 0.0 - 0.0 [facility] 170 Work Phone: Consult-Nephrologyon 022 Consult-Nephrology Normal [facility] Consult-Pulmonologyon 2021 Consult-Pulmonology Normal [facility] [place], [place] Cryoglobulin, Panelon 2021 Cryoglobulin Ql (S) NEG 72Hour NEG 72Hour [facility] 170 Work Phone: Comment on above: This test was develo ped and its performance characteristics determined by [employer]. It has not been cleared or approved by the US Food and Drug Administration. This test was performed in a CLIA certified laboratory and is intended for clinical purposes.Performed By: [employer] [place] [id number] Director: Niecy Conklin MD Cult, Bloodon 04-12-2021 Bacteria identified Cx Nom (Bld) [facility] [place] [address] Work Phone: Cult, Urineon 04-12-2021 Bacteria identified Cx Nom (U) Abnormal [facility] [place] [address] Work Phone: PETE POLYSPECIFICon 2 PETE-POLYSPECIFIC Negative Normal [facility] [place] Comment on above: Performed By: #### D AT ####[facility] [facility] [place] [address] DIFFERENTIALon 04-12-2021 % AUTOMATED IMMATURE GRAN 1.4 % High 0.0 - 0.9 [facility] [place] Comment on above: Result Comment: Annamarie ture Granulocyte Count (IG) includes promyelocytes, myelocytes and metamyelocytes but does not include bands. Percent differential counts (%) should be interpreted in the context of the absolute cell counts (cells/L). Performed By: #### A DIFF ####[facility] [place] [address] Basophils (Bld) [#/Vol] 0.05 10*3/uL Normal 0.00 - 0.10 [facility] [place] Comment on above: Performed By: #### A DIFF ####[address] [address] Basophils/100 WBC (Bld) 0.3 % Normal 0.0 - 2.0 [facility] [place] Comment on above: Performed By: #### A DIFF ####[address] [address] Eosinophils (Bld) [#/Vol] 0.04 10*3/uL Normal 0.00 - 0.70 [facility] [place] Comment on above: Performed By: #### A DIFF ####[address] [address] Eosinophils/100 WBC (Bld) 0.3 % Normal 0.0 - 6.0 [facility] [place] Comment on above: Performed By: #### A DIFF ####[address] [address] Lymphocytes (Bld) [#/Vol] 0.66 10*3/uL Low 1.20 - 4.80 [facility] [place] Comment on above: Performed By: #### A DIFF ####[address] [address] Lymphocytes/100 WBC (Bld) 4.5 % Normal 13.0 - 44.0 [facility] [place] Comment on above: Performed By: #### A DIFF ####[address] [address] Monocytes (Bld) [#/Vol] 1.44 10*3/uL High 0.10 - 1.00 [facility] [place] Comment on above: Performed By: #### A DIFF ####[address] [address] Monocytes/100 WBC (Bld) 9.7 % Normal 2.0 - 10.0 [facility] [place] Comment on above: Performed By: #### A DIFF ####[address] [address] Neutrophils (Bld) [#/Vol] 12.37 10*3/uL High 1.20 - 7.70 [facility] [place] Comment on above: Performed By: #### A DIFF ####[facility] [place] [address] Neutrophils/100 WBC (Bld) 83.8 % Normal 40.0 - 80.0 [facility] [place] Comment on above: Performed By: #### A DIFF ####[facility] [place] [address] Daily Progress Note - Critic al Careon 04-12-2021 Daily Progress Note - Critical Care Normal [facility] [place] [facility] Daily Progress Note-Medicine on 04-12-2021 Daily Progress Note-Medicine This report has been cancelled. Normal [facility] [place] Daily Progress Note-Nephrolo gyon 04-12-2021 Daily Progress Note-Nephrology Normal [facility] [place] [facility] Differential, Automaticon Basophils/100 WBC (Bld) 0.3 % 0.0 - 2.0 -[facility] [place] [address] Work Phone: Lymphocytes/100 WBC (Bld) 4.5 % See Below [facility] [place] [address] Work Phone: Comment on above: Reference Range: 13. 0 - 44.0 Monocytes/100 WBC (Bld) 9.7 % 2.0 - 10.0 -[place] [address] Work Phone: Neutrophils/100 WBC (Bld) 83.8 % See Below [facility] [place] [address] Work Phone: Comment on above: Reference Range: 40. 0 - 80.0 Differential, Automatic 0.05 {x10E9/L} See Below [facility] [place] [address] Work Phone: Comment on above: Reference Range: 0.0 0 - 0.10 Differential, Automatic 0.04 {x10E9/L} See Below [place] [address] Work Phone: Comment on above: Reference Range: 0.0 0 - 0.70 Differential, Automatic 1.44 {x10E9/L} above high threshold See Below [place] [address] Work Phone: Comment on above: Reference Range: 0.1 0 - 1.00 Differential, Automatic 0.66 {x10E9/L} below low threshold See Below [place] [address] Work Phone: Comment on above: Reference Range: 1.2 0 - 4.80 Differential, Automatic 12.37 {x10E9/L} above high threshold See Below [place] [address] Work Phone: Comment on above: Reference Range: 1.2 0 - 7.70 Differential, Automatic 0.3 % 0.0 - 6.0 [place] [address] Work Phone: Differential, Automatic 1.4 % above high threshold 0.0 - 0.9 [place] [address] Work Phone: Comment on above: Immature Granulocyte Count (IG) includes promyelocytes, myelocytes and metamyelocytes but does not include bands. Percent differential counts (%) should be interpreted in the context of the absolute cell counts (cells/L). EMR ADDONon 04-12-2021 ADDON CONFIRMATION REQUEST REC'D Normal [facility] [place] Comment on above: Performed By: #### E MRAD ####[facility] [place] [address] ADDON CONFIRMATION REQUEST REC'D Normal [facility] [place] Comment on above: Performed By: #### E MRAD ####[facility] [place] [id number] ADDON CONFIRMATION REQUEST REC'D Normal [facility] [place] Comment on above: Performed By: #### E MRAD ####[place] [address] [place] [address] ADDON CONFIRMATION REQUEST REC'D Normal [facility] [place] Comment on above: Performed By: #### E MRAD ####[address] [place] [address] ADDON CONFIRMATION REQUEST REC'D Normal [facility] [place] Comment on above: Performed By: #### E MRAD ####[address] [place] [address] FERRITINon 04-12-2021 FERRITIN 1087 ug/L High 8 - 150 [facility] [place] Comment on above: Performed By: #### F ERRI ####[address] [place] [address] FIBRINOGENon 04-12-2021 FIBRINOGEN 705 mg/dL High 200 - 400 [facility] Comment on above: Performed By: #### F IB ####[address] [place] [address] Ferritin, Serumon 04-12-2021 Ferritin [Mass/Vol] 1087 ug/L above high threshold 8 - 150 [facility] 170 Work Phone: [facility] 04-12-2021 Glucose [Mass/Vol] 220 mg/dL High 74 - 99 [facility] [place] Comment on above: Performed By: #### G ОЛЬГА ####[address] [place] [address] Glucose [Mass/Vol] 215 mg/dL High 74 - 99 [facility] Comment on above: Performed By: #### G ОЛЬГА ####[address] [place] [address] GROUP A STREP, PCRon 022 S. pyogenes Ag Ql (Throat) Not detected See Below [facility] [employer] 170 Work Phone: Comment on above: SOURCE: ThroatRefere nce Range: Not Detected This test was performed utilizing an FDA-cleared rapid nucleic acid amplification by PCR to qualitatively detect Group A Streptococci from throat swab specimens without the need for culture confirmation of negative results. Glomerular Basement Membrane Antibodyon 04-12-2021 Basement membrane IgG Qn (S) 5 {units} 0-20 [facility] [employer] 170 Work Phone: Comment on above: Negative 0 - 20 Weak Positive 21 - 30 Moderate to Strong Positive >30 HAPTOGLOBINon 04-12-2021 HAPTOGLOBIN 258 mg/dL High 30 - 200 [facility] Comment on above: Performed By: #### H APTO ####[id number] [place] [address] HCG, Beta Quantitativeon HCG.beta subunit Qn m[IU]/mL [facility] 170 Work Phone: Comment on above: Low-level positive H CG results can be seen in early , in xin- or post-menopausal females due to normal pituitary HCG production, or with analytic interference. Repeat testing in 48-72 hours can aid in assessing for as results should double in this time period. FSH measurement is recommended in xin- or post-menopausal females as concurrent elevation of FSH can support pituitary production as the source of the HCG elevation.. Total HCG measurement is performed using the [employer] Access Immunoassay which detects intact HCG and free beta HCG subunit. This test is not indicated for use as a tumor marker. HCG testing is performed using a different test methodology at [facility] than other [facility] at [facility]. Direct result comparison should only be made within the same method. REF VALUESNON FEMALE <5MALES <5 HCG,BETA-QUANTITATIVEon - HCG,BETA-QUANTITATI VE <2 Normal [facility] [place] Comment on above: Result Comment: Low- level positive HCG results can be seen in early , in xin- or post-menopausal females due to normal pituitary HCG production, or with analytic interference. Repeat testing in 48-72 hours can aid in assessing for as results should double in this time period. FSH measurement is recommended in xin- or post-menopausal females as concurrent elevation of FSH can support pituitary production as the source of the HCG elevation.. Total HCG measurement is performed using the [employer] Access Immunoassay which detects intact HCG and free beta HCG subunit. This test is not indicated for use as a tumor marker. HCG testing is performed using a different test methodology at [facility] than other [facility]. Direct result comparison should only be made within the same method.REF VALUESNON FEMALE <5MALES <5 Performed By: #### H CGQU ####[facility] [place] [address] HCG,BETA-QUANTITATI VE Canceled Normal [facility] [place] Comment on above: Order Comment: TEST HCG,BETA-QUANTITATIVE WAS CANCELLED, 04/11/2021 23:42 DUPLICATE ORDER:Combined Orders. Result Comment: Low- level positive HCG results can be seen in early , in xin- or post-menopausal females due to normal pituitary HCG production, or with analytic interference. Repeat testing in 48-72 hours can aid in assessing for as results should double in this time period. FSH measurement is recommended in xin- or post-menopausal females as concurrent elevation of FSH can support pituitary production as the source of the HCG elevation.. Total HCG measurement is performed using the [employer] Access Immunoassay which detects intact HCG and free beta HCG subunit. This test is not indicated for use as a tumor marker. HCG testing is performed using a different test methodology at [facility] than other [facility]. Direct result comparison should only be made within the same method. Performed By: #### H CGQU ####[facility] [place] [address] HEPATITIS B SURF ABon 2021 HEP B SURF AB <3.1 Normal <10 [facility] [place] Comment on above: Result Comment: INTE RPRETIVE CRITERIA:<10 mIU/mL....NONREACTIVE>=10 mIU/mL...REACTIVE. Biotin interference may cause falsely decreased results. Patients taking a Biotin dose of up to 5 mg/day should refrain from taking Biotin for 24 hours before sample collection. Providers may contact their local laboratory for further information. Performed By: #### H BAB3 ####[id number] [place] [address] HEPATITIS B SURFACE AGon HEP.B SURFACE AG Non-Reactive Normal NONREACTIVE [facility] [place], [place] Comment on above: Result Comment: Biot in interference may cause falsely decreased results. Patients taking a Biotin dose of up to 5 mg/day should refrain from taking Biotin for 24 hours before sample collection. Providers may contact their local laboratory for further information. Performed By: #### H BSAG ####[id number] [id number] Lab Specimen Source [facility] [place] Comment on above: Performed By: #### H BSAG ####[id number] [id number] Performed By: #### H BAB3 ####[id number], [place] HEPATITIS C ABon 04-12-2021 HEPATITIS C AB Non-Reactive Normal NONREACTIVE [facility] [place] Comment on above: Result Comment: Resu lts from patients taking biotin supplements or receiving high-dose biotin therapy should be interpreted with caution due to possible interference with this test. Providers may contact their local laboratory for further information. Performed By: #### H CVAB ####[id number] [id number] Lab Specimen Source Normal [facility] [place], [place] Comment on above: Performed By: #### H CVAB ####[id number] [place] [address] Performed By: #### H IV ####[id number] [id number] HIV 1/2 ANTIGEN/ANTIBODY SCR EEN WITH REFLEX TO CONFIRMATIONon 04-12-2021 HIV 1/2 AG/AB SCREEN Non-Reactive Normal NONREACTIVE [facility] [place] Comment on above: Result Comment: HIV Ag/Ab screen is performed using the Siemens [employer] HIV Ag/Ab Combo assay which detects the presence of HIV p24 antigen as well as antibodies to HIV-1 (Group M and O) and HIV-2..No laboratory evidence of HIV infection. If acute HIV infection issuspected, consider testing for HIV RNA by PCR (viral load). Performed By: #### H IV ####[id number] [id number] HIV 1+2 Ab Qn (S) Non-Reactive See Below Mayuri BinghamW sam PASCUAL 170 Work Phone: Comment on above: SOURCE: Reference Ra nge: NONREACTIVE HIV Ag/Ab screen is performed using the Siemens Walltik HIV Ag/Ab Combo assay which detects the presence of HIV p24 antigen as well as antibodies to HIV-1 (Group M and O) and HIV-2..No laboratory evidence of HIV infection. If acute HIV infection is suspected, consider testing for HIV RNA by PCR (viral load). Haptoglobin, Serumon 022 Haptoglobin Nephelometry [Mass/Vol] 212 mg/dL above high threshold 30 - 200 [facility] 170 Work Phone: Haptoglobin Nephelometry [Mass/Vol] 258 mg/dL above high threshold 30 - 200 MP-Aggregate Knowledge [facility] 170 Work Phone: Hepatitis B Surface Antibody on 04-12-2021 HBV surface Ag IA Ql <3.1 <10 [facility] 170 Work Phone: Comment on above: SOURCE: INTERPRETIVE CRITERIA:<10 mIU/mL....NONREACTIVE >=10 mIU/mL...REACTIVE . Biotin interference may cause falsely decreased results. Patients taking a Biotin dose of up to 5 mg/day should refrain from taking Biotin for 24 hours before sample collection. Providers may contact their local laboratory for further information. Hepatitis B Surface Antigeno n 04-12-2021 Hepatitis B Surface Antigen Non-Reactive See Below [facility] 170 Work Phone: Comment on above: SOURCE: Reference Ra nge: NONREACTIVE Biotin interference may cause falsely decreased results. Patients taking a Biotin dose of up to 5 mg/day should refrain from taking Biotin for 24 hours before sample collection. Providers may contact their local laboratory for further information. Hepatitis C Antibody Teston 04-12-2021 Hepatitis C Antibody Test Non-Reactive See Below [facility] 170 Work Phone: Comment on above: SOURCE: Reference Ra nge: NONREACTIVE Results from patients taking biotin supplements or receiving high-dose biotin therapy should be interpreted with caution due to possible interference with this test. Providers may contact their local laboratory for further information. IRON + TIBCon 04-12-2021 % SATURATION NOT CALC. Normal 25 - 45 [facility] [place] Comment on above: Result Comment: One or more analytes used in this calculationis outside of the analytical measurement range.Calculation cannot be performed. Performed By: #### I [place]ONT ####[place] [address] TIBC <161 Abnormal 240 - 445 [facility] [place] Comment on above: Result Comment: Inte rpret results with caution.One or more analytes used in this calculationis outside of the analytical measurement range. Performed By: #### I ALINET ####[place] [address] Iron [Mass/Vol] 106 ug/dL Normal 35 - 150 [facility] [place] Comment on above: Performed By: #### I RONT ####[place] [address] LACTATEon 04-12-2021 Lactate [Moles/Vol] 1.7 mmol/L Normal 0.4 - 2.0 [facility] [place], [place] Comment on above: Result Comment: Gayle puncture immediately after or during the administration of Metamizole may lead to falsely low results. Testing should be performed immediately prior to Metamizole dosing. Performed By: #### L ACT ####[place] [id number] LDHon 04-12-2021 LDH 428 U/L High 84 - 246 [facility] [place] Comment on above: Performed By: #### L DH ####[place] [id number] Laboratory - Blood bankon ABO group Nom (Bld) A MP-Pu lmon[facility] 170 Work Phone: Blood group antibody screen Ql Negative MP-P[facility] 170 Work Phone: Direct antiglobulin test.poly specific reagent post transfusion reaction Ql (RBC) Negative [facility] 170 Work Phone: Rh immune globulin screen (Bld) [Interp] Positive [facility] [facility] Medicine[place] [address] Work Phone: Laboratory - Chemistry and C hemistry - challengeon 04-12-2021 Glucose [Mass/Vol] 220 mg/dL above high threshold 74 - 99 [facility] [place] [address] Work Phone: Glucose [Mass/Vol] 215 mg/dL above high threshold 74 - 99 [facility] [facility] [place] [address] Work Phone: Anion gap [Moles/Vol] 23 mmol/L above high threshold 10 - 20 [facility] [facility] Medicine[place] [address] Work Phone: Calcium [Mass/Vol] 6.9 mg/dL below low threshold 8.6 - 10.3 [facility] [facility] [place] [address] Work Phone: Chloride [Moles/Vol] 99 mmol/L 98 - 107 [facility] [facility] [place] [address] Work Phone: CO2 [Moles/Vol] 13 mmol/L below low threshold 21 - 32 [facility] [facility] [place] [address] Work Phone: Creatinine [Mass/Vol] 17.79 mg/dL above high threshold See Below [facility] Medicine[place] [address] Work Phone: Comment on above: Reference Range: 0.5 0 - 1.05 Glucose [Mass/Vol] 99 mg/dL 74 - 99 MP-[facility]ul [place] [facility] Medicine[place] [address] Work Phone: Potassium [Moles/Vol] 5.0 mmol/L 3.5 - 5.3 [facility] [facility] [place] [address] Work Phone: Sodium [Moles/Vol] 130 mmol/L below low threshold 136 - 145 [facility] [facility] 170 Work Phone: Urea nitrogen [Mass/Vol] 147 mg/dL above high threshold 6 - 23 [facility] 170 Work Phone: Comment on above: This is a critical r esult. Per Laboratory policy, critical results for this test only qualify to the call list once per 24 hours. Procalcitonin [Mass/Vol] 5.35 ng/mL Abnormal <=0.07 [place] [address] Work Phone: Comment on above: Procalcitonin (PCT) results measured serially can aid in decision-making for antibiotic discontinuation in patients with suspected or confirmed sepsis in conjunction with additional clinical information. Antibiotic discontinuation may be considered with a change in PCT of >80% from the peak result or when PCT falls below 0.50 ng/mL. .Procalcitonin results should not be used in isolation but should be interpreted in conjunction with additional clinical and laboratory findings. Procalcitonin results should not beused to guide the initiation of antibiotic therapy. .Falsely low PCT values in the presence of bacterial infection may occur in early infection, with atypical pathogens, localized infections, and subacute infectious endocarditis. .Falsely elevated results outside of severe bacterial infection/sepsis may be seen in patients with renal failure or insufficiency, severe trauma or ross, recent major abdominal/cardiac surgery, acute multi-organ failure, rarely in patients with medullary thyroid carcinoma and rare neuroendocrine tumors, and non-specific interfering antibodies (heterophile antibodies, rheumatoid factor, human anti-mouse antibodies (HAMA), etc). .Performance of the PCT test in pediatric patients (<18yo), women, immunocompromised patients, and patients onimmunomodulatory medications has not been evaluated. Albumin BCP dye [Mass/Vol] 2.5 g/dL below low threshold 3.4 - 5.0 [facility] 170 Work Phone: ALP [Catalytic activity/Vol] 79 U/L 33 - 110 [facility] 170 Work Phone: ALT With P-5'-P [Catalytic activity/Vol] 36 U/L 7 - 45 [facility] 170 Work Phone: Comment on above: Patients treated wit h Sulfasalazine may generate falsely decreased results for ALT. Anion gap [Moles/Vol] 28 mmol/L above high threshold 10 - 20 [facility] 170 Work Phone: AST With P-5'-P [Catalytic activity/Vol] 23 U/L 9 - 39 [facility] 170 Work Phone: Bilirubin [Mass/Vol] 0.7 mg/dL 0.0 - 1.2 [facility] 170 Work Phone: Calcium [Mass/Vol] 6.0 mg/dL below low threshold 8.6 - 10.3 [facility] [place] [facility] Work Phone: Chloride [Moles/Vol] 96 mmol/L below low threshold 98 - 107 [facility] [place] 170 Work Phone: CO2 [Moles/Vol] 10 mmol/L Critically low 21 - 32 MP-Pu [facility] 170 Work Phone: Comment on above: Called- RB to Rock Weems, 04/12/2021 01:13 Creatinine [Mass/Vol] 20.91 mg/dL above high threshold See Below [facility] [place] 170 Work Phone: Comment on above: Reference Range: 0.5 0 - 1.05 Glucose [Mass/Vol] 110 mg/dL above high threshold 74 - 99 [facility] 170 Work Phone: Iron [Mass/Vol] 106 ug/dL 35 - 150 [facility] a [facility] [place] 170 Work Phone: Iron binding capacity [Mass/Vol] <161 Abnormal 240 - 445 [place] [address] Work Phone: Comment on above: Interpret results wi th caution.One or more analytes used in this calculation is outside of the analytical measurement range. LDH [Catalytic activity/Vol] 428 U/L above high threshold 84 - 246 [facility] 170 Work Phone: Potassium [Moles/Vol] 5.9 mmol/L above high threshold 3.5 - 5.3 [place] [address] Work Phone: Protein [Mass/Vol] 6.3 g/dL below low threshold 6.4 - 8.2 [place] [address] Work Phone: Sodium [Moles/Vol] 128 mmol/L below low threshold 136 - 145 [place] [address] Work Phone: TSH Qn 1.30 m[IU]/L See Below [place] [address] Work Phone: Comment on above: Reference Range: 0.4 4 - 3.98 TSH testing is performed using different testing methodology at [facility] than at other [facility]. Direct result comparisons should only be made within the same method. Urea nitrogen [Mass/Vol] 173 mg/dL Critically high 6 - 23 [facility] [place] [address] Work Phone: Comment on above: Called- RB to Rock Weems, 04/12/2021 01:13 Laboratory - Hematology and Cell countson 04-12-2021 Erythrocyte distribution width (RBC) [Ratio] 17.2 % above high threshold See Below [facility] [place] [address] Work Phone: Comment on above: Reference Range: 11. 5 - 14.5 Hematocrit (Bld) [Volume fraction] 21.6 % below low threshold See Below [facility] [place] [address] Work Phone: Comment on above: Reference Range: 36. 0 - 46.0 Hemoglobin (Bld) [Mass/Vol] 7.2 g/dL below low threshold See Below -Pulmona [place] [address] Work Phone: Comment on above: Reference Range: 12. 0 - 16.0 MCHC (RBC) [Mass/Vol] 33.3 g/dL See Below [facility] [place] [address] Work Phone: Comment on above: Reference Range: 32. 0 - 36.0 MCV (RBC) [Entitic vol] 82 fL 80 - 100 [facility] [place] [address] Work Phone: Platelets (Bld) [#/Vol] 122 10*3/uL below low threshold 150 - 450 [facility] [place] [address] Work Phone: RBC (Bld) [#/Vol] 2.63 {x10E12/L} below low threshold See Below [facility] [place] [address] Work Phone: Comment on above: Reference Range: 4.0 0 - 5.20 WBC (Bld) [#/Vol] 7.8 10*3/uL 4.4 - 11.3 [facility] [place] [address] Work Phone: Erythrocyte distribution width (RBC) [Ratio] 17.2 % above high threshold See Below [facility] [place] [address] Work Phone: Comment on above: Reference Range: 11. 5 - 14.5 Hematocrit (Bld) [Volume fraction] 21.6 % below low threshold See Below [facility] [place] [address] Work Phone: Comment on above: Reference Range: 36. 0 - 46.0 Hemoglobin (Bld) [Mass/Vol] 7.2 g/dL below low threshold See Below [facility] [place] [address] Work Phone: Comment on above: Reference Range: 12. 0 - 16.0 MCHC (RBC) [Mass/Vol] 33.3 g/dL See Below [facility] [place] [address] Work Phone: Comment on above: Reference Range: 32. 0 - 36.0 MCV (RBC) [Entitic vol] 83 fL 80 - 100 [facility] [place] [address] Work Phone: Platelets (Bld) [#/Vol] 135 10*3/uL below low threshold 150 - 450 [place] [address] Work Phone: RBC (Bld) [#/Vol] 2.60 {x10E12/L} below low threshold See Below [facility] [place] [address] Work Phone: Comment on above: Reference Range: 4.0 0 - 5.20 WBC (Bld) [#/Vol] 11.8 10*3/uL above high threshold 4.4 - 11.3 [facility] [place] [address] Work Phone: Erythrocyte distribution width (RBC) [Ratio] 18.5 % above high threshold See Below [facility] [place] [address] Work Phone: Comment on above: Reference Range: 11. 5 - 14.5 Hematocrit (Bld) [Volume fraction] 18.7 % below low threshold See Below [facility] [place] [address] Work Phone: Comment on above: Reference Range: 36. 0 - 46.0 Hemoglobin (Bld) [Mass/Vol] 6.0 g/dL Critically low See Below [facility] [place] [address] Work Phone: Comment on above: Reference Range: 12. 0 - 16.0 Called- RB to norm cintron, 04/12/2021 00:48 MCHC (RBC) [Mass/Vol] 32.1 g/dL See Below MP-Pulmona [place] [address] Work Phone: Comment on above: Reference Range: 32. 0 - 36.0 MCV (RBC) [Entitic vol] 85 fL 80 - 100 MP-[facility] [place] [address] Work Phone: Platelets (Bld) [#/Vol] 154 10*3/uL 150 - 450 -P[facility]a [place] [address] Work Phone: RBC (Bld) [#/Vol] 2.19 {x10E12/L} below low threshold See Below -[facility] [place] [address] Work Phone: Comment on above: Reference Range: 4.0 0 - 5.20 WBC (Bld) [#/Vol] 15.1 10*3/uL above high threshold 4.4 - 11.3 -[facility] [address] Work Phone: Laboratory - Serology - non- microon 04-12-2021 Centromere protein B Ab Qn (S) <0.2 MP-[facility] [place] [address] Work Phone: Comment on above: REF VALUES < 1.0 = N EGATIVE >=1.0 = POSITIVE Chromatin Ab Qn <0.2 MP-Pulmon a [place] [address] Work Phone: Comment on above: REF VALUES < 1.0 = N EGATIVE >=1.0 = POSITIVE DNA double strand Ab Qn (S) [IU]/mL MP-[facility] [place] [address] Work Phone: Comment on above: REF VALUESNEGATIVE: <= 4 IU/MLEQUIVOCAL: 5- 9 IU/MLPOSITIVE: >=10 IU/ML Katherine-1 extractable nuclear Ab IA Ql (S) <0.2 -[facility] [address] Work Phone: Comment on above: REF VALUES < 1.0 = N EGATIVE >=1.0 = POSITIVE Nuclear Ab Hep2 substrate Ql (S) Negative NEGATIVE -[facility] [place] [address] Work Phone: Comment on above: The Antinuclear Anti body (WILMA) test was performed using indirect immunofluorescence assay with HEp-2 cells slide. Ribonucleoprotein extractable nuclear Ab IA Qn (S) 0.3 {AI} -[place] [address] Work Phone: Comment on above: REF VALUES < 1.0 = N EGATIVE >=1.0 = POSITIVE Ribosomal P Ab Qn (S) <0.2 -[place] [address] Work Phone: Comment on above: REF VALUES < 1.0 = N EGATIVE >=1.0 = POSITIVE SCL-70 extractable nuclear Ab IA Ql (S) <0.2 -[place] [address] Work Phone: Comment on above: REF VALUES < 1.0 = N EGATIVE >=1.0 = POSITIVE Sjogrens syndrome-A extractable nuclear Ab IA Qn (S) <0.2 -[facility] [place] [address] Work Phone: Comment on above: REF VALUES < 1.0 = N EGATIVE >=1.0 = POSITIVE Sjogrens syndrome-B extractable nuclear Ab IA Qn (S) <0.2 -[facility] [place] [address] Work Phone: Comment on above: REF VALUES < 1.0 = N EGATIVE >=1.0 = POSITIVE Subramanian extractable nuclear Ab IA Qn (S) <0.2 -[place] [address] Work Phone: Comment on above: REF VALUES < 1.0 = N EGATIVE >=1.0 = POSITIVE Subramanian extractable nuclear Ab+Ribonucleoprotei n extractable nuclear Ab IA Ql (S) <0.2 -[facility] 170 Work Phone: Comment on above: REF VALUES < 1.0 = N EGATIVE >=1.0 = POSITIVE Lactate, Levelon 04-12-2021 Lactate [Moles/Vol] 1.7 mmol/L 0.4 - 2.0 MP-Pu [facility] 170 Work Phone: Comment on above: Venipuncture immedia tely after or during the administration of Metamizole may lead to falsely low results. Testing should be performed immediately prior to Metamizole dosing. MAGNESIUMon 04-12-2021 Magnesium [Mass/Vol] 2.00 mg/dL Normal 1.60 - 2.40 [facility] [place] Comment on above: Performed By: #### M G ####[address] [address] Magnesium [Mass/Vol] 1.60 mg/dL Normal 1.60 - 2.40 [facility] [place] [facility] Comment on above: Performed By: #### M G ####[address] [address] Magnesium [Mass/Vol] 1.70 mg/dL Normal 1.60 - 2.40 [facility] [place] Comment on above: Performed By: #### M G ####[address] [address] Magnesium [Mass/Vol] 1.60 mg/dL Normal 1.60 - 2.40 [facility] [place] Comment on above: Performed By: #### M G ####[address] [address] Magnesium [Mass/Vol] 1.40 mg/dL Low 1.60 - 2.40 [facility] [place] Comment on above: Performed By: #### M G ####[address] [address] Magnesium [Mass/Vol] 1.40 mg/dL Low 1.60 - 2.40 [facility] [place] Comment on above: Performed By: #### M G ####[facility] [facility] [place] [address] MRSA Screenon 04-12-2021 Staphylococcus sp identified Org specific cx Nom (Unsp spec) [facility] [place] [address] Work Phone: Magnesium, Serumon 2 Magnesium [Mass/Vol] 2.00 mg/dL See Below [facility] [place] [address] Work Phone: Comment on above: Reference Range: 1.6 0 - 2.40 Magnesium [Mass/Vol] 2.00 mg/dL See Below [facility] [place] [address] Work Phone: Comment on above: Reference Range: 1.6 0 - 2.40 Magnesium [Mass/Vol] 1.60 mg/dL See Below [facility] [place] [address] Work Phone: Comment on above: Reference Range: 1.6 0 - 2.40 Magnesium [Mass/Vol] 1.70 mg/dL See Below [facility] [place] [address] Work Phone: Comment on above: Reference Range: 1.6 0 - 2.40 Magnesium [Mass/Vol] 1.60 mg/dL See Below [facility] [place] [address] Work Phone: Comment on above: Reference Range: 1.6 0 - 2.40 Magnesium [Mass/Vol] 1.40 mg/dL below low threshold See Below [facility] [place] [address] Work Phone: Comment on above: Reference Range: 1.6 0 - 2.40 Magnesium [Mass/Vol] 1.40 mg/dL below low threshold See Below [facility] [place] [address] Work Phone: Comment on above: Reference Range: 1.6 0 - 2.[address] NECK WITH CONTRASTon 0 04-12-[address] NECK WITH CONTRAST Normal [facility] No Panel Informationon 04-12 0.0 {/100_WBC} 0.0 - 0.0 [facility] 170 Work Phone: 0.0 {/100_WBC} 0.0 - 0.0 [facility] 170 Work Phone: 2 {mL/min/1.73m2} Abnormal >90 MP-Pulm tam[place] ry [facility]-[place] [facility] 170 Work Phone: Comment on above: CALCULATIONS OF RYLEE MATED GFR ARE PERFORMED USING THE 2020 CKD-EPI STUDY REFIT EQUATION WITHOUT THE RACE VARIABLE FOR THE IDMS-TRACEABLE CREATININE METHODS.https://jasn.asnjournals.org/content//ASN. 7337365494 ORDER RECD MP-[facility]-[place] [facility] 170 Work Phone: Please click on the link to view the study images Normal MP-[facility]-[place] [facility] 170 Work Phone: 63 % Abnormal >=67 MP-Pulmona ry [facility] 170 Work Phone: Comment on above: INTERPRETIVE COMMENT : [id number] activity ismeasured using FRETS-VWF73 substrate. Severedeficiency of JXVUIJ64 (activity <5-10%) maybe acquired or congenital, and is a relativelyspecific finding in patients with a clinicaldiagnosis of thrombotic thrombocytopenicpurpura (TTP). Severe LNMGJG42 deficiency isobserved in approximately two-thirds ofpatients with a clinical diagnosis of acuteidiopathic TTP. In this patient population,persistence of severe AWQCRA31 deficiencyduring clinical remission is associatedwith an increased risk for recurrent clinicalepisodes of TTP. Severe congenital DEESQG38yeqjcxujqg (Hansa-Amanda syndrome) is anautosomal recessive condition which maypresent in children or adults as episodesof TTP. Severe CIJXRF04 deficiency persistsduring remission in these patients and auto-MQGGPC98 antibody is generally not observed.Mild to moderate deficiency of EBYQBP64vnyqputj has been observed in multiplemedical conditions. Hyperbilirubinemiainterferes with FRET-based assay of CCRXZT68cvfxmqjz and plamsa free hemoglobin >2 gm/dLis a potent inhibitor of TFJDMC65 function.(Effective 08/20/2009)Sample comment for LMSUKV90 Activity, Inhibitor and Antibody testing: Fibrin clot found in plasma sample when thawed for testing. Note: in our studies, serum samples gave similar results to citrated plasma samples. FEW [facility] 170 Work Phone: MILD [facility] 170 Work Phone: See Below [facility] 170 Work Phone: NOT CALC. 25 - 45 [facility] 170 Work Phone: Comment on above: One or more analytes used in this calculation is outside of the analytical measurement range.Calculation cannot be performed. 2 {mL/min/1.73m2} Abnormal >90 [facility] [place] [facility] [facility] 170 Work Phone: Comment on above: CALCULATIONS OF RYLEE MATED GFR ARE PERFORMED USING THE 2020 CKD-EPI STUDY REFIT EQUATION WITHOUT THE RACE VARIABLE FOR THE IDMS-TRACEABLE CREATININE METHODS.https://jasn.asnjournals.org/content/early/ASN. 7788819298 0.0 {/100_WBC} 0.0 - 0.0 [facility] 170 Work Phone: OSMOLALITY, SERUMon 04-12-19 22 OSMOLALITY, SERUM 329 mOsm/kg H2O High 280 - 300 [facility] Comment on above: Performed By: #### O SMOL ####[id number] [place] [address] Osmolality, Serumon 04-12-19 22 Osmolality [Osmolality] 329 {mOsm/kg_H2O} above high threshold 280 - 300 [facility] 170 Work Phone: PHOSPHORUSon 04-12-2021 Phosphate [Mass/Vol] 10.0 mg/dL High 2.5 - 4.9 [facility] Comment on above: Result Comment: The performance characteristics of phosphorus testing in heparinized plasma have been validated by the individual laboratory site where testing is performed. Testing on heparinized plasma is not approved by the FDA; however, such approval is not necessary. Performed By: #### P HOS ####[facility] [place] [address] PROCALCITONINon 04-12-2021 PROCALCITONIN 5.35 ng/mL Abnormal <=0.07 [facility] Comment on above: Result Comment: Proc alcitonin (PCT) results measured serially canaid in decision-making for antibiotic discontinuation inpatients with suspected or confirmed sepsis in conjunctionwith additional clinical information. Antibioticdiscontinuation may be considered with a change in PCT of>80% from the peak result or when PCT falls below 0.50 ng/mL..Procalcitonin results should not be used in isolation butshould be interpreted in conjunction with additional clinicaland laboratory findings. Procalcitonin results should not beused to guide the initiation of antibiotic therapy..Falsely low PCT values in the presence of bacterial infectionmay occur in early infection, with atypical pathogens,localized infections, and subacute infectious endocarditis..Falsely elevated results outside of severe bacterialinfection/sepsis may be seen in patients with renal failureor insufficiency, severe trauma or ross, recent majorabdominal/cardiac surgery, acute multi-organ failure, rarelyin patients with medullary thyroid carcinoma and rareneuroendocrine tumors, and non-specific interfering antibodies(heterophile antibodies, rheumatoid factor, human anti-mouseantibodies (HAMA), etc)..Performance of the PCT test in pediatric patients (<18yo), women, immunocompromised patients, and patients onimmunomodulatory medications has not been evaluated. Performed By: #### P CALC ####[id number] [place] [id number] PT/INRon 04-12-2021 PT Coag (PPP) [Time] 15.6 s High 9.8 - 13.4 [facility] Comment on above: Result Comment: Note new reference range as of 02/11/2021 at 10:00am. Performed By: #### P TINR ####[address] [place] [address] PT, INR 1.3 High 0.9 - 1.1 [facility] Comment on above: Performed By: #### P TINR ####[address] [place] [address] Patient Profile - Adult v2on 04-12-2021 Patient Profile - Adult v2 Normal [facility] Phosphorus, Serumon 04-12-19 Phosphate [Mass/Vol] 10.0 mg/dL above high threshold 2.5 - 4.9 [facility] 170 Work Phone: Comment on above: The performance jerrod acteristics of phosphorus testing in heparinized plasma have been validated by the individual laboratory site where testing is performed. Testing on heparinized plasma is not approved by the FDA; however, such approval is not necessary. RED CELL MORPHOLOGYon 2021 BITE CELLS FEW Normal [facility] Comment on above: Performed By: #### M ORP2 ####[address] [id number] OVALOCYTES FEW Normal [facility] Comment on above: Performed By: #### M ORP2 ####[address] [place] [address] POLYCHROMASIA MILD Normal [facility] Comment on above: Performed By: #### M ORP2 ####[address] [place] [address] RBC FRAGMENTS FEW Normal [facility] Comment on above: Performed By: #### M ORP2 ####[address] [id number] RBC morphology finding Nom (Bld) See Below Normal [facility] [place] Comment on above: Performed By: #### M ORP2 ####[address] [place] [address] RENAL FUNCTION PANELon 04-12 Albumin [Mass/Vol] 2.4 g/dL Low 3.4 - 5.0 [facility] Comment on above: Performed By: #### R ENAL ####[address] [address] Anion gap [Moles/Vol] 18 mmol/L Normal 10 - 20 [facility] Comment on above: Performed By: #### R ENAL ####[address] [address] Calcium [Mass/Vol] 7.3 mg/dL Low 8.6 - 10.3 [facility] [place] Comment on above: Performed By: #### R ENAL ####[address] [address] Chloride [Moles/Vol] 100 mmol/L Normal 98 - 107 [facility] Comment on above: Performed By: #### R ENAL ####[address] [address] Creatinine [Mass/Vol] 12.20 mg/dL High 0.50 - 1.05 [facility] [place] [facility] Comment on above: Performed By: #### R ENAL ####[address] [address] GFR/1.73 sq M.predicted among non-blacks MDRD (S/P/Bld) [Vol rate/Area] 4 mL/min/{1.73_m2} Abnormal >90 [facility] Comment on above: Result Comment: CALC ULATIONS OF ESTIMATED GFR ARE PERFORMED USING THE 2020 CKD-EPI STUDY REFIT EQUATION WITHOUT THE RACE VARIABLE FOR THE IDMS-TRACEABLE CREATININE METHODS.https://jasn.asnjournals.org/content//ASN. 7730694480 Performed By: #### R ENAL ####[address] [address] Glucose [Mass/Vol] 194 mg/dL High 74 - 99 [facility] [place] Comment on above: Performed By: #### R ENAL ####[address] [address] HCO3 (Bld) [Moles/Vol] 19 mmol/L Low 21 - 32 [facility] Comment on above: Performed By: #### R ENAL ####[address] [address] Phosphate [Mass/Vol] 5.9 mg/dL High 2.5 - 4.9 [facility] Comment on above: Result Comment: The performance characteristics of phosphorus testing in heparinized plasma have been validated by the individual laboratory site where testing is performed. Testing on heparinized plasma is not approved by the FDA; however, such approval is not necessary. Performed By: #### R ENAL ####[address] [address] Potassium [Moles/Vol] 3.8 mmol/L Normal 3.5 - 5.3 [facility] Comment on above: Performed By: #### R ENAL ####[address] [address] Sodium [Moles/Vol] 133 mmol/L Low 136 - 145 [facility] Comment on above: Performed By: #### R ENAL ####[address] [address] Urea nitrogen [Mass/Vol] 98 mg/dL High 6 - 23 [facility] Comment on above: Result Comment: This is a critical result.Per Laboratory policy, critical results for this testonly qualify to the call list once per 24 hours. Performed By: #### R ENAL ####[address] [address] Albumin [Mass/Vol] 2.3 g/dL Low 3.4 - 5.0 [facility] Comment on above: Performed By: #### R ENAL ####[address] [address] Anion gap [Moles/Vol] 19 mmol/L Normal 10 - 20 [facility] Comment on above: Performed By: #### R ENAL ####[address] [address] Calcium [Mass/Vol] 6.3 mg/dL Low 8.6 - 10.3 [facility] Comment on above: Performed By: #### R ENAL ####[address] [address] Chloride [Moles/Vol] 105 mmol/L Normal 98 - 107 [facility] Comment on above: Performed By: #### R ENAL ####[address] [address] Creatinine [Mass/Vol] 13.21 mg/dL High 0.50 - 1.05 [facility] Comment on above: Performed By: #### R ENAL ####[address] [address] GFR/1.73 sq M.predicted among non-blacks MDRD (S/P/Bld) [Vol rate/Area] 3 mL/min/{1.73_m2} Abnormal >90 [facility] Comment on above: Result Comment: CALC ULATIONS OF ESTIMATED GFR ARE PERFORMED USING THE 2020 CKD-EPI STUDY REFIT EQUATION WITHOUT THE RACE VARIABLE FOR THE IDMS-TRACEABLE CREATININE METHODS.https://jasn.asnjournals.org/content/early/ASN. 7443826244 Performed By: #### R ENAL ####[address] [address] Glucose [Mass/Vol] 142 mg/dL High 74 - 99 [facility] [place] Comment on above: Performed By: #### R ENAL ####[address] [address] HCO3 (Bld) [Moles/Vol] 14 mmol/L Low 21 - 32 [facility] Comment on above: Performed By: #### R ENAL ####[address] [address] Phosphate [Mass/Vol] 6.2 mg/dL High 2.5 - 4.9 [facility] Comment on above: Result Comment: The performance characteristics of phosphorus testing in heparinized plasma have been validated by the individual laboratory site where testing is performed. Testing on heparinized plasma is not approved by the FDA; however, such approval is not necessary. Performed By: #### R ENAL ####[address] [address] Potassium [Moles/Vol] 3.3 mmol/L Low 3.5 - 5.3 [facility] Comment on above: Performed By: #### R ENAL ####[address] [address] Sodium [Moles/Vol] 135 mmol/L Low 136 - 145 [facility] [place] Comment on above: Performed By: #### R ENAL ####[address] [address] Urea nitrogen [Mass/Vol] 107 mg/dL High 6 - 23 [facility] Comment on above: Result Comment: This is a critical result.Per Laboratory policy, critical results for this testonly qualify to the call list once per 24 hours. Performed By: #### R ENAL ####[address] [address] Albumin [Mass/Vol] 2.5 g/dL Low 3.4 - 5.0 [facility] [place] Comment on above: Performed By: #### R ENAL ####[address] [address] Anion gap [Moles/Vol] 22 mmol/L High 10 - 20 [facility] Comment on above: Performed By: #### R ENAL ####[address] [address] Calcium [Mass/Vol] 7.3 mg/dL Low 8.6 - 10.3 [facility] [place] Comment on above: Performed By: #### R ENAL ####[address] [address] Chloride [Moles/Vol] 98 mmol/L Normal 98 - 107 [facility] Comment on above: Performed By: #### R ENAL ####[address] [address] Creatinine [Mass/Vol] 15.09 mg/dL High 0.50 - 1.05 [facility] Comment on above: Performed By: #### R ENAL ####[address] [address] GFR/1.73 sq M.predicted among non-blacks MDRD (S/P/Bld) [Vol rate/Area] 3 mL/min/{1.73_m2} Abnormal >90 [facility] Comment on above: Result Comment: CALC ULATIONS OF ESTIMATED GFR ARE PERFORMED USING THE 2020 CKD-EPI STUDY REFIT EQUATION WITHOUT THE RACE VARIABLE FOR THE IDMS-TRACEABLE CREATININE METHODS.https://jasn.asnjournals.org/content/early/ASN. 7152495078 Performed By: #### R ENAL ####[address] [address] Glucose [Mass/Vol] 116 mg/dL High 74 - 99 [facility] [place] Comment on above: Performed By: #### R ENAL ####[address] [address] HCO3 (Bld) [Moles/Vol] 15 mmol/L Low 21 - 32 [facility] Comment on above: Performed By: #### R ENAL ####[address] [address] Phosphate [Mass/Vol] 6.5 mg/dL High 2.5 - 4.9 [facility] Comment on above: Result Comment: The performance characteristics of phosphorus testing in heparinized plasma have been validated by the individual laboratory site where testing is performed. Testing on heparinized plasma is not approved by the FDA; however, such approval is not necessary. Performed By: #### R ENAL ####[address] [address] Potassium [Moles/Vol] 3.7 mmol/L Normal 3.5 - 5.3 [facility] Comment on above: Performed By: #### R ENAL ####[address] [address] Sodium [Moles/Vol] 131 mmol/L Low 136 - 145 [facility] Comment on above: Performed By: #### R ENAL ####[address] [address] Urea nitrogen [Mass/Vol] 122 mg/dL High 6 - 23 [facility] Comment on above: Result Comment: This is a critical result.Per Laboratory policy, critical results for this testonly qualify to the call list once per 24 hours. Performed By: #### R ENAL ####[address] [address] Urea nitrogen [Mass/Vol] 139 mg/dL High 6 - 23 [facility] Comment on above: Result Comment: This is a critical result.Per Laboratory policy, critical results for this testonly qualify to the call list once per 24 hours. Performed By: #### R ENAL ####[address] [address] Albumin [Mass/Vol] 2.3 g/dL Low 3.4 - 5.0 [facility] [place] Comment on above: Performed By: #### R ENAL ####[address] [address] Anion gap [Moles/Vol] 22 mmol/L High 10 - 20 [facility] Comment on above: Performed By: #### R ENAL ####[address] [address] Calcium [Mass/Vol] 7.3 mg/dL Low 8.6 - 10.3 [facility] Comment on above: Performed By: #### R ENAL ####[address] [address] Chloride [Moles/Vol] 98 mmol/L Normal 98 - 107 [facility] Comment on above: Performed By: #### R ENAL ####[address] [address] Creatinine [Mass/Vol] 16.71 mg/dL High 0.50 - 1.05 [facility] Comment on above: Performed By: #### R ENAL ####[address] [address] GFR/1.73 sq M.predicted among non-blacks MDRD (S/P/Bld) [Vol rate/Area] 3 mL/min/{1.73_m2} Abnormal >90 [facility] Comment on above: Result Comment: CALC ULATIONS OF ESTIMATED GFR ARE PERFORMED USING THE 2020 CKD-EPI STUDY REFIT EQUATION WITHOUT THE RACE VARIABLE FOR THE IDMS-TRACEABLE CREATININE METHODS.https://jasn.asnjournals.org/content//ASN. 5569968722 Performed By: #### R ENAL ####[address] [address] Glucose [Mass/Vol] 102 mg/dL High 74 - 99 [facility] [place] Comment on above: Performed By: #### R ENAL ####[address] [address] HCO3 (Bld) [Moles/Vol] 14 mmol/L Low 21 - 32 [facility] Comment on above: Performed By: #### R ENAL ####[address] [address] Phosphate [Mass/Vol] 7.3 mg/dL High 2.5 - 4.9 [facility] Comment on above: Result Comment: The performance characteristics of phosphorus testing in heparinized plasma have been validated by the individual laboratory site where testing is performed. Testing on heparinized plasma is not approved by the FDA; however, such approval is not necessary. Performed By: #### R ENAL ####[address] [address] Potassium [Moles/Vol] 4.3 mmol/L Normal 3.5 - 5.3 [facility] Comment on above: Performed By: #### R ENAL ####[address] [address] Sodium [Moles/Vol] 130 mmol/L Low 136 - 145 [facility] Comment on above: Performed By: #### R ENAL ####[address] [address] Urea nitrogen [Mass/Vol] 164 mg/dL High 6 - 23 [facility] Comment on above: Result Comment: This is a critical result.Per Laboratory policy, critical results for this testonly qualify to the call list once per 24 hours. Performed By: #### R ENAL ####[address] [address] Albumin [Mass/Vol] 2.3 g/dL Low 3.4 - 5.0 [facility] Comment on above: Performed By: #### R ENAL ####[address] [address] Anion gap [Moles/Vol] 26 mmol/L High 10 - 20 [facility] Comment on above: Performed By: #### R ENAL ####[address] [address] Calcium [Mass/Vol] 7.5 mg/dL Low 8.6 - 10.3 [facility] Comment on above: Performed By: #### R ENAL ####[address] [address] Chloride [Moles/Vol] 97 mmol/L Low 98 - 107 [facility] Comment on above: Performed By: #### R ENAL ####[address] [address] Creatinine [Mass/Vol] 20.77 mg/dL High 0.50 - 1.05 [facility] Comment on above: Performed By: #### R ENAL ####[address] [address] GFR/1.73 sq M.predicted among non-blacks MDRD (S/P/Bld) [Vol rate/Area] 2 mL/min/{1.73_m2} Abnormal >90 [facility] Comment on above: Result Comment: CALC ULATIONS OF ESTIMATED GFR ARE PERFORMED USING THE 2020 CKD-EPI STUDY REFIT EQUATION WITHOUT THE RACE VARIABLE FOR THE IDMS-TRACEABLE CREATININE METHODS.https://jasn.asnjournals.org/content//ASN. 8152728156 Performed By: #### R ENAL ####[address] [place] [address] Glucose [Mass/Vol] 92 mg/dL Normal 74 - 99 [facility] Comment on above: Performed By: #### R ENAL ####[address] [address] HCO3 (Bld) [Moles/Vol] 10 mmol/L Low 21 - 32 [facility] Comment on above: Result Comment: This is a critical result.Per Laboratory policy, critical results for this testonly qualify to the call list once per 24 hours. Performed By: #### R ENAL ####[address] [address] Phosphate [Mass/Vol] 9.4 mg/dL High 2.5 - 4.9 [facility] Comment on above: Result Comment: The performance characteristics of phosphorus testing in heparinized plasma have been validated by the individual laboratory site where testing is performed. Testing on heparinized plasma is not approved by the FDA; however, such approval is not necessary. Performed By: #### R ENAL ####[address] [address] Potassium [Moles/Vol] 5.7 mmol/L High 3.5 - 5.3 [facility] Comment on above: Performed By: #### R ENAL ####[address] [address] Sodium [Moles/Vol] 127 mmol/L Low 136 - 145 [facility] Comment on above: Performed By: #### R ENAL ####[address] [address] REQUEST-LEUKOREDUCED RED LUIS A LSon 04-12-2021 REQUEST-LEUKOREDUCE D RED CELLS ORDER RECD Normal [facility] [place] Comment on above: Performed By: #### 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 ####[address] [address] REQUEST-LEUKOREDUCE D RED CELLS ORDER RECD Normal [facility] Comment on above: Performed By: #### 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 ####[address] [address] RETICULOCYTESon 04-12-2021 RETIC # 0.071 [id number]/L Normal 0.018 - 0.083 [facility] Comment on above: Performed By: #### R ETIC ####[facility] [place] [address] RETIC % 3.2 % High 0.5 - 2.0 [facility] Comment on above: Performed By: #### R ETIC ####[facility] [facility] [place] [address] RETIC-HB 30 pg Normal 28 - 38 [facility] Comment on above: Performed By: #### R ETIC ####[facility] [facility] [place] [address] Radiologyon 04-12-2021 XR Chest Single view Normal [facility] [place] [address] Work Phone: Renal Function Panelon 04-12 Albumin BCP dye [Mass/Vol] 2.4 g/dL below low threshold 3.4 - 5.0 [facility] [place] [address] Work Phone: Anion gap [Moles/Vol] 16 mmol/L 10 - 20 [facility] 170 Work Phone: Calcium [Mass/Vol] 7.3 mg/dL below low threshold 8.6 - 10.3 [facility] 170 Work Phone: Chloride [Moles/Vol] 101 mmol/L 98 - 107 [facility] [place] [address] Work Phone: CO2 [Moles/Vol] 20 mmol/L below low threshold 21 - 32 [facility] [place] [address] Work Phone: Creatinine [Mass/Vol] 10.28 mg/dL above high threshold See Below [facility] [place] [address] Work Phone: Comment on above: Reference Range: 0.5 0 - 1.05 Glucose [Mass/Vol] 188 mg/dL above high threshold 74 - 99 -[facility] 170 Work Phone: Phosphate [Mass/Vol] 4.6 mg/dL 2.5 - 4.9 [facility] Work Phone: Comment on above: The performance jerrod acteristics of phosphorus testing in heparinized plasma have been validated by the individual laboratory site where testing is performed. Testing on heparinized plasma is not approved by the FDA; however, such approval is not necessary. Potassium [Moles/Vol] 3.7 mmol/L 3.5 - 5.3 [facility] 170 Work Phone: Sodium [Moles/Vol] 133 mmol/L below low threshold 136 - 145 [facility] [place] [address] Work Phone: Urea nitrogen [Mass/Vol] 87 mg/dL above high threshold 6 - 23 [facility] [place] [address] Work Phone: Renal Function Panel 4 {mL/min/1.73m2} Abnormal >90 [facility] [place] [address] Work Phone: Comment on above: CALCULATIONS OF RYLEE MATED GFR ARE PERFORMED USING THE 2020 CKD-EPI STUDY REFIT EQUATION WITHOUT THE RACE VARIABLE FOR THE IDMS-TRACEABLE CREATININE METHODS.https://jasn.asnjournals.org/content/early//ASN. 5583071120 Albumin BCP dye [Mass/Vol] 2.4 g/dL below low threshold 3.4 - 5.0 [facility] 170 Work Phone: Anion gap [Moles/Vol] 18 mmol/L 10 - 20 [facility] [place] [address] Work Phone: Calcium [Mass/Vol] 7.3 mg/dL below low threshold 8.6 - 10.3 -[facility] 170 Work Phone: Chloride [Moles/Vol] 100 mmol/L 98 - 107 [facility] 170 Work Phone: CO2 [Moles/Vol] 19 mmol/L below low threshold 21 - 32 -[facility] 170 Work Phone: Creatinine [Mass/Vol] 12.20 mg/dL above high threshold See Below [facility] 170 Work Phone: Comment on above: Reference Range: 0.5 0 - 1.05 Glucose [Mass/Vol] 194 mg/dL above high threshold 74 - 99 -[facility] 170 Work Phone: Phosphate [Mass/Vol] 5.9 mg/dL above high threshold 2.5 - 4.9 -[place] [address] Work Phone: Comment on above: The performance jerrod acteristics of phosphorus testing in heparinized plasma have been validated by the individual laboratory site where testing is performed. Testing on heparinized plasma is not approved by the FDA; however, such approval is not necessary. Potassium [Moles/Vol] 3.8 mmol/L 3.5 - 5.3 -[facility] 170 Work Phone: Sodium [Moles/Vol] 133 mmol/L below low threshold 136 - 145 -[facility] 170 Work Phone: Urea nitrogen [Mass/Vol] 98 mg/dL above high threshold 6 - 23 [facility] [place] [address] Work Phone: Comment on above: This is a critical r esult. Per Laboratory policy, critical results for this test only qualify to the call list once per 24 hours. Renal Function Panel 4 {mL/min/1.73m2} Abnormal >90 [place] [address] Work Phone: Comment on above: CALCULATIONS OF RYLEE MATED GFR ARE PERFORMED USING THE 2020 CKD-EPI STUDY REFIT EQUATION WITHOUT THE RACE VARIABLE FOR THE IDMS-TRACEABLE CREATININE METHODS.https://jasn.asnjournals.org/content//ASN. 2867035218 Albumin BCP dye [Mass/Vol] 2.3 g/dL below low threshold 3.4 - 5.0 [facility] [place] [facility] Work Phone: Anion gap [Moles/Vol] 19 mmol/L 10 - 20 [place] [address] Work Phone: Calcium [Mass/Vol] 6.3 mg/dL below low threshold 8.6 - 10.3 -[place] [address] Work Phone: Chloride [Moles/Vol] 105 mmol/L 98 - 107 -[place] [address] Work Phone: CO2 [Moles/Vol] 14 mmol/L below low threshold 21 - 32 -[place] [address] Work Phone: Creatinine [Mass/Vol] 13.21 mg/dL above high threshold See Below [facility] [address] Work Phone: Comment on above: Reference Range: 0.5 0 - 1.05 Glucose [Mass/Vol] 142 mg/dL above high threshold 74 - 99 [facility] [facility] 170 Work Phone: Phosphate [Mass/Vol] 6.2 mg/dL above high threshold 2.5 - 4.9 [place] [address] Work Phone: Comment on above: The performance jerrod acteristics of phosphorus testing in heparinized plasma have been validated by the individual laboratory site where testing is performed. Testing on heparinized plasma is not approved by the FDA; however, such approval is not necessary. Potassium [Moles/Vol] 3.3 mmol/L below low threshold 3.5 - 5.3 [facility] [facility] [facility] 170 Work Phone: Sodium [Moles/Vol] 135 mmol/L below low threshold 136 - 145 [facility] [facility]- [place] [facility] 170 Work Phone: Urea nitrogen [Mass/Vol] 107 mg/dL above high threshold 6 - 23 [facility] [facility]-[place] [facility] 170 Work Phone: Comment on above: This is a critical r esult. Per Laboratory policy, critical results for this test only qualify to the call list once per 24 hours. Renal Function Panel 3 {mL/min/1.73m2} Abnormal >90 [facility] [facility]- [place] [facility] 170 Work Phone: Comment on above: CALCULATIONS OF RYLEE MATED GFR ARE PERFORMED USING THE 2020 CKD-EPI STUDY REFIT EQUATION WITHOUT THE RACE VARIABLE FOR THE IDMS-TRACEABLE CREATININE METHODS.https://jasn.asnjournals.org/content//ASN. 1567114029 Albumin BCP dye [Mass/Vol] 2.5 g/dL below low threshold 3.4 - 5.0 [facility] [facility] Work Phone: Anion gap [Moles/Vol] 22 mmol/L above high threshold 10 - 20 [facility] [facility] 170 Work Phone: Calcium [Mass/Vol] 7.3 mg/dL below low threshold 8.6 - 10.3 [facility] [facility]-[place] [facility] 170 Work Phone: Chloride [Moles/Vol] 98 mmol/L 98 - 107 [facility] [facility] Work Phone: CO2 [Moles/Vol] 15 mmol/L below low threshold 21 - 32 [facility] [facility] 170 Work Phone: Creatinine [Mass/Vol] 15.09 mg/dL above high threshold See Below [facility] [facility] 170 Work Phone: Comment on above: Reference Range: 0.5 0 - 1.05 Glucose [Mass/Vol] 116 mg/dL above high threshold 74 - 99 [facility] [facility] 170 Work Phone: Phosphate [Mass/Vol] 6.5 mg/dL above high threshold 2.5 - 4.9 [facility] [facility] 170 Work Phone: Comment on above: The performance jerrod acteristics of phosphorus testing in heparinized plasma have been validated by the individual laboratory site where testing is performed. Testing on heparinized plasma is not approved by the FDA; however, such approval is not necessary. Potassium [Moles/Vol] 3.7 mmol/L 3.5 - 5.3 -[facility] 170 Work Phone: Sodium [Moles/Vol] 131 mmol/L below low threshold 136 - 145 -[place] [facility] 170 Work Phone: Urea nitrogen [Mass/Vol] 122 mg/dL above high threshold 6 - 23 -[place] [address] Work Phone: Comment on above: This is a critical r esult. Per Laboratory policy, critical results for this test only qualify to the call list once per 24 hours. Renal Function Panel 3 {mL/min/1.73m2} Abnormal >90 [place] [address] Work Phone: Comment on above: CALCULATIONS OF RYLEE MATED GFR ARE PERFORMED USING THE 2020 CKD-EPI STUDY REFIT EQUATION WITHOUT THE RACE VARIABLE FOR THE IDMS-TRACEABLE CREATININE METHODS.https://jasn.asnjournals.org/content//ASN. 7939855221 Albumin BCP dye [Mass/Vol] 2.3 g/dL below low threshold 3.4 - 5.0 [facility] [facility] 170 Work Phone: Anion gap [Moles/Vol] 22 mmol/L above high threshold 10 - 20 -[place] [facility] 170 Work Phone: Calcium [Mass/Vol] 7.3 mg/dL below low threshold 8.6 - 10.3 -[facility] 170 Work Phone: Chloride [Moles/Vol] 98 mmol/L 98 - 107 -[place] [address] Work Phone: CO2 [Moles/Vol] 14 mmol/L below low threshold 21 - 32 -[place] [address] Work Phone: Creatinine [Mass/Vol] 16.71 mg/dL above high threshold See Below -[facility] [place] [address] Work Phone: Comment on above: Reference Range: 0.5 0 - 1.05 Glucose [Mass/Vol] 102 mg/dL above high threshold 74 - 99 -[place] [address] Work Phone: Phosphate [Mass/Vol] 7.3 mg/dL above high threshold 2.5 - 4.9 -[place] [address] Work Phone: Comment on above: The performance jerrod acteristics of phosphorus testing in heparinized plasma have been validated by the individual laboratory site where testing is performed. Testing on heparinized plasma is not approved by the FDA; however, such approval is not necessary. Potassium [Moles/Vol] 4.3 mmol/L 3.5 - 5.3 [facility] [address] Work Phone: Sodium [Moles/Vol] 130 mmol/L below low threshold 136 - 145 -[place] [address] Work Phone: Urea nitrogen [Mass/Vol] 139 mg/dL above high threshold 6 - 23 [facility] [address] Work Phone: Comment on above: This is a critical r esult. Per Laboratory policy, critical results for this test only qualify to the call list once per 24 hours. Renal Function Panel 3 {mL/min/1.73m2} Abnormal >90 [place] [address] Work Phone: Comment on above: CALCULATIONS OF RYLEE MATED GFR ARE PERFORMED USING THE 2020 CKD-EPI STUDY REFIT EQUATION WITHOUT THE RACE VARIABLE FOR THE IDMS-TRACEABLE CREATININE METHODS.https://jasn.asnjournals.org/content/early/ASN. 1791219082 Albumin BCP dye [Mass/Vol] 2.3 g/dL below low threshold 3.4 - 5.0 [place] [address] Work Phone: Anion gap [Moles/Vol] 26 mmol/L above high threshold 10 - 20 [place] [address] Work Phone: Calcium [Mass/Vol] 7.5 mg/dL below low threshold 8.6 - 10.3 -[place] [address] Work Phone: Chloride [Moles/Vol] 97 mmol/L below low threshold 98 - 107 [facility] [address] Work Phone: CO2 [Moles/Vol] 10 mmol/L below low threshold 21 - 32 [facility] [address] Work Phone: Comment on above: This is a critical r esult. Per Laboratory policy, critical results for this test only qualify to the call list once per 24 hours. Creatinine [Mass/Vol] 20.77 mg/dL above high threshold See Below -[facility] 170 Work Phone: Comment on above: Reference Range: 0.5 0 - 1.05 Glucose [Mass/Vol] 92 mg/dL 74 - 99 -[facility] 170 Work Phone: Phosphate [Mass/Vol] 9.4 mg/dL above high threshold 2.5 - 4.9 -[facility] [place] [address] Work Phone: Comment on above: The performance jerrod acteristics of phosphorus testing in heparinized plasma have been validated by the individual laboratory site where testing is performed. Testing on heparinized plasma is not approved by the FDA; however, such approval is not necessary. Potassium [Moles/Vol] 5.7 mmol/L above high threshold 3.5 - 5.3 -[facility] 170 Work Phone: Sodium [Moles/Vol] 127 mmol/L below low threshold 136 - 145 [facility] [place] [address] Work Phone: Urea nitrogen [Mass/Vol] 164 mg/dL above high threshold 6 - 23 -[facility] [place] [address] Work Phone: Comment on above: This is a critical r esult. Per Laboratory policy, critical results for this test only qualify to the call list once per 24 hours. Renal Function Panel 2 {mL/min/1.73m2} Abnormal >90 -[facility] [place] [address] Work Phone: Comment on above: CALCULATIONS OF RYLEE MATED GFR ARE PERFORMED USING THE 2020 CKD-EPI STUDY REFIT EQUATION WITHOUT THE RACE VARIABLE FOR THE IDMS-TRACEABLE CREATININE METHODS.https://jasn.asnjournals.org/content//ASN. 1762289342 Reticulocyte Counton 022 Reticulocyte Count 30 pg 28 - 38 [facility] 170 Work Phone: Reticulocyte Count 0.071 {x10E12/L} See Below [facility] 170 Work Phone: Comment on above: Reference Range: 0.0 18 - 0.083 Reticulocyte Count 3.2 % above high threshold 0.5 - 2.0 [facility] 170 Work Phone: SEDIMENTATION RATE, ERYTHROC YTEon 04-12-2021 SEDIMENTATION RATE, ERYTHROCYTE >100 High 0 - 20 [facility] Comment on above: Performed By: #### E SRWS ####[facility] [place] [address] STAPH/MRSA SCREENon 04-12-19 22 STAPH/MRSA SCREEN Normal [facility] Comment on above: Performed By: #### S TAPH ####[id number] [place] [address] Sedimentation Rate, Erythroc yteon 04-12-2021 ESR (Bld) [Velocity] mm/h above high threshold 0 - 20 [facility] 170 Work Phone: T-SPOT TBon 04-12-2021 T-SPOT.TB INTERP Canceled Normal [facility] Comment on above: Order Comment: TEST T-SPOT TB WAS CANCELLED, 04/12/2021 12:31 T-spot not drawn on weekendnotify yordan guerra. Performed By: #### T SPOT ####[facility] [place] [address] TROPONIN Ion 04-12-2021 Troponin I.cardiac [Mass/Vol] 0.31 ng/mL High 0.00 - 0.03 [facility] Comment on above: Result Comment: LESS THAN 0.04 NG/ML: NEGATIVEREPEAT TESTING IN THREE TO SIX HOURSIF CLINICALLY INDICATED.0.04 - 0.5 NG/ML: CONSISTENT WITH POSSIBLECARDIAC DAMAGE AND POSSIBLE INCREASEDCLINICAL RISK.SERIAL MEASUREMENTS MAY HELP ASSESS EXTENT OFMYOCARDIAL DAMAGE.>0.5 NG/ML: CONSISTENT WITH CARDIAC DAMAGE,INCREASED CLINICAL RISK AND MYOCARDIALINFARCTION. SERIAL MEASUREMENTS MAY HELPASSESS EXTENT OF MYOCARDIAL DAMAGE..Note: Troponin I testing is performed using differenttesting methodology at [facility] than at [facility]. Direct result comparisons should onlybe made within the same method. Performed By: #### T ROP2 ####[place] [address] Troponin I.cardiac [Mass/Vol] 0.08 ng/mL High 0.00 - 0.03 [facility] Comment on above: Result Comment: LESS THAN 0.04 NG/ML: NEGATIVEREPEAT TESTING IN THREE TO SIX HOURSIF CLINICALLY INDICATED.0.04 - 0.5 NG/ML: CONSISTENT WITH POSSIBLECARDIAC DAMAGE AND POSSIBLE INCREASEDCLINICAL RISK.SERIAL MEASUREMENTS MAY HELP ASSESS EXTENT OFMYOCARDIAL DAMAGE.>0.5 NG/ML: CONSISTENT WITH CARDIAC DAMAGE,INCREASED CLINICAL RISK AND MYOCARDIALINFARCTION. SERIAL MEASUREMENTS MAY HELPASSESS EXTENT OF MYOCARDIAL DAMAGE..Note: Troponin I testing is performed using differenttesting methodology at [facility] than at [facility]. Direct result comparisons should onlybe made within the same method. Performed By: #### T ROP2 ####[place] [id number] TSH WITH REFLEX TO FREE T4 I F ABNORMALon 04-12-2021 TSH Qn 1.30 m[IU]/L Normal 0.44 - 3.98 [facility] Comment on above: Result Comment: TSH testing is performed using different testing methodology at [facility] than at [facility]. Direct result comparisons should only be made within the same method. Performed By: #### T HYDS ####[place] [id number] TYPE + SCREENon 04-12-2021 ABO TYPE A Normal [facility] Comment on above: Performed By: #### T +S ####[address] [address] RH TYPE Positive Normal [facility] Comment on above: Performed By: #### T +S ####[facility] [facility] [place] [address] Troponin I, Serumon 04-12-19 Troponin I.cardiac [Mass/Vol] 0.31 ng/mL above high threshold See Below [facility] [employer] 170 Work Phone: Comment on above: Reference Range: 0.0 0 - 0.03LESS THAN 0.04 NG/ML: NEGATIVEREPEAT TESTING IN THREE TO SIX HOURSIF CLINICALLY INDICATED.0.04 - 0.5 NG/ML: CONSISTENT WITH POSSIBLECARDIAC DAMAGE AND POSSIBLE INCREASEDCLINICAL RISK.SERIAL MEASUREMENTS MAY HELP ASSESS EXTENT OFMYOCARDIAL DAMAGE.>0.5 NG/ML: CONSISTENT WITH CARDIAC DAMAGE,INCREASED CLINICAL RISK AND MYOCARDIALINFARCTION. SERIAL MEASUREMENTS MAY HELPASSESS EXTENT OF MYOCARDIAL DAMAGE..Note: Troponin I testing is performed using different testing methodology at [facility] than at other [facility]. Direct result comparisons should only be made within the same method. Troponin I.cardiac [Mass/Vol] 0.08 ng/mL above high threshold See Below [facility] 170 Work Phone: Comment on above: Reference Range: 0.0 0 - 0.03LESS THAN 0.04 NG/ML: NEGATIVEREPEAT TESTING IN THREE TO SIX HOURSIF CLINICALLY INDICATED.0.04 - 0.5 NG/ML: CONSISTENT WITH POSSIBLECARDIAC DAMAGE AND POSSIBLE INCREASEDCLINICAL RISK.SERIAL MEASUREMENTS MAY HELP ASSESS EXTENT OFMYOCARDIAL DAMAGE.>0.5 NG/ML: CONSISTENT WITH CARDIAC DAMAGE,INCREASED CLINICAL RISK AND MYOCARDIALINFARCTION. SERIAL MEASUREMENTS MAY HELPASSESS EXTENT OF MYOCARDIAL DAMAGE..Note: Troponin I testing is performed using different testing methodology at [facility] than at other [facility]. Direct result comparisons should only be made within the same method. URINALYSIS WITH CULTURE IF I NDICATEDon 04-12-2021 Appearance (U) Canceled Normal [facility] Comment on above: Order Comment: TEST URINALYSIS WITH CULTURE IF INDICATED WAS CANCELLED, 04/12/2021 21:23QNS, PLEASE RESUBMIT.. Performed By: #### U ARFX ####[address] [address] ASCORBIC ACID Canceled Normal [facility] Comment on above: Order Comment: TEST URINALYSIS WITH CULTURE IF INDICATED WAS CANCELLED, 04/12/2021 21:23QNS, PLEASE RESUBMIT.. Result Comment: Conc entrations > = 20 mg/dL of ascorbic acid can be expected to cause stronginterference in the reactions testing for glucose, nitrite and blood. It isrecommended to discontinue Vitamin C administration and retest in 10 hours. Performed By: #### U ARFX ####[address] [address] Bilirubin Ql (U) Canceled Normal [facility] Comment on above: Order Comment: TEST URINALYSIS WITH CULTURE IF INDICATED WAS CANCELLED, 04/12/2021 21:23QNS, PLEASE RESUBMIT.. Performed By: #### U ARFX ####[address] [address] Color (U) Canceled Normal [facility] Comment on above: Order Comment: TEST URINALYSIS WITH CULTURE IF INDICATED WAS CANCELLED, 04/12/2021 21:23QNS, PLEASE RESUBMIT.. Performed By: #### U ARFX ####[address] [address] Glucose Ql (U) Canceled [facility] Comment on above: Order Comment: TEST URINALYSIS WITH CULTURE IF INDICATED WAS CANCELLED, 04/12/2021 21:23QNS, PLEASE RESUBMIT.. Performed By: #### U ARFX ####[address] [address] Hemoglobin Ql (U) Canceled Normal [facility] Comment on above: Order Comment: TEST URINALYSIS WITH CULTURE IF INDICATED WAS CANCELLED, 04/12/2021 21:23QNS, PLEASE RESUBMIT.. Performed By: #### U ARFX ####[address] [address] Ketones Ql (U) Canceled Normal [facility] Comment on above: Order Comment: TEST URINALYSIS WITH CULTURE IF INDICATED WAS CANCELLED, 04/12/2021 21:23QNS, PLEASE RESUBMIT.. Performed By: #### U ARFX ####[address] [address] Leukocyte esterase Test strip Ql (U) Canceled [facility] Comment on above: Order Comment: TEST URINALYSIS WITH CULTURE IF INDICATED WAS CANCELLED, 04/12/2021 21:23QNS, PLEASE RESUBMIT.. Performed By: #### U ARFX ####[address] [address] Nitrite Ql (U) Canceled [facility] Comment on above: Order Comment: TEST URINALYSIS WITH CULTURE IF INDICATED WAS CANCELLED, 04/12/2021 21:23QNS, PLEASE RESUBMIT.. Performed By: #### U ARFX ####[address] [address] pH Canceled [facility] Comment on above: Order Comment: TEST URINALYSIS WITH CULTURE IF INDICATED WAS CANCELLED, 04/12/2021 21:23QNS, PLEASE RESUBMIT.. Performed By: #### U ARFX ####[address] [address] Protein Ql (U) Canceled [facility] Comment on above: Order Comment: TEST URINALYSIS WITH CULTURE IF INDICATED WAS CANCELLED, 04/12/2021 21:23QNS, PLEASE RESUBMIT.. Performed By: #### U ARFX ####[address] [address] Specific gravity (U) [Rel density] Canceled [facility] Comment on above: Order Comment: TEST URINALYSIS WITH CULTURE IF INDICATED WAS CANCELLED, 04/12/2021 21:23QNS, PLEASE RESUBMIT.. Performed By: #### U ARFX ####[address] [address] UROBILINOGEN Canceled Normal [facility] Comment on above: Order Comment: TEST URINALYSIS WITH CULTURE IF INDICATED WAS CANCELLED, 04/12/2021 21:23QNS, PLEASE RESUBMIT.. Performed By: #### U ARFX ####[place] [id number] [facility] [place] [address] Lab Specimen Source Normal [facility] [place] [place] Comment on above: Order Comment: TEST URINALYSIS WITH CULTURE IF INDICATED WAS CANCELLED, 04/12/2021 21:23QNS, PLEASE RESUBMIT.. Performed By: #### U ARFX ####[address] [place] [address] Appearance (U) Canceled [facility] [facility] [address] Work Phone: Color (U) Canceled [facility] [facility] [address] Work Phone: Comment on above: SOURCE: Glucose Ql (U) Canceled [facility] [facility] [address] Work Phone: Ketones Ql (U) Canceled [facility] [facility] [address] Work Phone: Leukocyte esterase Test strip Ql (U) Canceled [facility] [facility] 170 Work Phone: Protein (U) [Mass/Vol] Canceled [facility] [facility]-[place] [address] Work Phone: RBC (U) [#/Vol] Canceled [facility] [facility]-[place] [address] Work Phone: Specific gravity (U) [Rel density] Canceled [facility] [facility] [address] Work Phone: URINALYSIS WITH CULTURE IF INDICATED Canceled [facility] [facility] [address] Work Phone: Comment on above: Concentrations > = 2 0 mg/dL of ascorbic acid can be expected to cause strong interference in the reactions testing for glucose, nitrite and blood. It is recommended to discontinue Vitamin C administration and retest in 10 hours. URINE CULTURE,BACTERIALon URINE CULTURE,BACTERIAL Normal [facility] Comment on above: Performed By: #### U [facility] ####[id number] [place] [address] Urinalysison 04-12-2021 Color (U) YELLOW See Below [facility] [address] Work Phone: Comment on above: Reference Range: STR AW,YELLOW Glucose Ql (U) 150 (2+) Abnormal NEGATIVE [place] [address] Work Phone: Ketones Ql (U) Negative NEGATIVE [place] [address] Work Phone: Leukocyte esterase Test strip Ql (U) MODERATE (2+) Abnormal NEGATIVE [place] [address] Work Phone: pH (U) 7.0 [pH] 5.0 - 8.0 [facility] [address] Work Phone: Protein (U) [Mass/Vol] >=500 (3+) Abnormal NEGATIVE [facility] [address] Work Phone: RBC (U) [#/Vol] LARGE (3+) Abnormal NEGATIVE [facility] [address] Work Phone: Specific gravity (U) [Rel density] 1.010 1 See Below [facility] [address] Work Phone: Comment on above: Reference Range: 1.0 05 - 1.035 Urinalysis Positive Abnormal NEGATIVE [facility] [address] Work Phone: Urinalysis <2.0 0.0 - 1.9 [place] [address] Work Phone: Urinalysis Negative NEGATIVE [facility] [address] Work Phone: Urinalysis HAZY CLEAR [facility] [address] Work Phone: Urinalysis, Microscopicon Urinalysis, Microscopic 1+ [facility] [address] Work Phone: Urinalysis, Microscopic 4+ Abnormal [facility] [address] Work Phone: Urinalysis, Microscopic 51-100 Abnormal 0-5 [facility] [address] Work Phone: Fibrinogen Assayon 2 Fibrinogen Assay 705 mg/dL above high threshold 200 - 400 [facility] [address] Work Phone: Laboratory - Blood bankon ABO group Nom (Bld) A MP-[place] [address] Work Phone: Rh immune globulin screen (Bld) [Interp] Positive [facility] [address] Work Phone: Laboratory - Chemistry and C hemistry - challengeon 04-11-2021 Anion gap (Bld) [Moles/Vol] SEE COMMENT 10 - 25 [facility] [address] Work Phone: Comment on above: NOT CALCULATED Calcium.ionized (Bld) [Moles/Vol] 0.79 mmol/L below low threshold See Below [facility] [address] Work Phone: Comment on above: Reference Range: 1.1 0 - 1.33 Carboxyhemoglobin (BldA) [Mass fraction] 2.1 % Abnormal [facility] [address] Work Phone: Comment on above: REF VALUESNONSMOKERS 0.5-1.5%SMOKERS 0.5-10.0% Chloride [Moles/Vol] SEE COMMENT 98 - 107 -Abdiasa [place] [address] Work Phone: Comment on above: NOT CALCULATED CO2 (Bld) [Partial pressure] 17 mm[Hg] below low threshold 38 - 42 -[place] [address] Work Phone: Glucose [Mass/Vol] 122 mg/dL above high threshold 74 - 99 -[facility] [place] [address] Work Phone: HCO3 (Bld) [Moles/Vol] 8.0 mmol/L below low threshold See Below -[place] [address] Work Phone: Comment on above: Reference Range: 22. 0 - 26.0 Lactate [Moles/Vol] 1.2 mmol/L 0.4 - 2.0 -Pu [place]a [place] [address] Work Phone: Methemoglobin (BldA) [Mass fraction] 1.1 % 0.0 - 1.5 -[place] [address] Work Phone: Oxygen (Bld) [Partial pressure] 118 mm[Hg] above high threshold 85 - 95 [facility] [place] [address] Work Phone: Oxyhemoglobin (BldA) [Mass fraction] 96.1 % See Below [facility] [place] [address] Work Phone: Comment on above: Reference Range: 94. 0 - 98.0 pH (Bld) 7.28 [pH] below low threshold See Below -[place] [address] Work Phone: Comment on above: Reference Range: 7.3 8 - 7.42 Potassium [Moles/Vol] 5.8 mmol/L above high threshold 3.5 - 5.3 VANDANA-[facility] 170 Work Phone: Sodium [Moles/Vol] 126 mmol/L below low threshold 136 - 145 VANDANA-Abdiasa leslee [facility] 170 Work Phone: Laboratory - Coagulationon 0 04-11-2021 INR Coag (PPP) [Relative time] 1.3 {INR} above high threshold 0.9 - 1.1 VANDANA-Roselia camilo [place] [address] Work Phone: PT Coag (PPP) [Time] 15.6 s above high threshold 9.8 - 13.4 VANDANA-Roselia [place] [address] Work Phone: Comment on above: Note new reference r alberto as of 02/11/2021 at 10:00am. Laboratory - Hematology and Cell countson 04-11-2021 Deoxyhemoglobin (BldA) [Mass fraction] 0.6 % 0.0 - 5.0 Florin [place] [address] Work Phone: Hematocrit (Bld) [Volume fraction] 16.0 % below low threshold See Below -Roselia camilo [place] [address] Work Phone: Comment on above: Reference Range: 36. 0 - 46.0 Hemoglobin (Bld) [Mass/Vol] 5.4 g/dL below low threshold See Below -Abdiasa leslee [place] [address] Work Phone: Comment on above: Reference Range: 12. 0 - 16.0 Hemoglobin (Bld) [Mass/Vol] 6.3 g/dL Critically low See Below VANDANA-Abdiasa leslee [place] [address] Work Phone: Comment on above: Reference Range: 12. 0 - 16.0 Called- RB to norm cintron, 04/12/2021 00:05 No Panel Informationon 04-11 ORDER RECD VANDANA-Abdiasa [facility] 170 Work Phone: -17.1 mmol/L below low threshold -2.0 - 3.0 [facility] [facility] 170 Work Phone: 99 % 94 - 100 [facility] [facility] [facility] Work Phone: [phone] {degrees_C} MP-Pulmo na ry Medicine-[facility] 170 Work Phone: Comment on above: NOTE: PATIENT RESULT S ARE NOT CORRECTED FOR TEMPERATURE. [email or web address] [email or web address]?Patient MB=[id number]&Date= 2&Time=23%[id number]%3a00&Te stType=ECG&Site=12&OutputTy pe=PDF&Ext=PDF MP-[facility]ul[facility] [place] 170 Work Phone: Sinus tachycardia MP-Pulm tamara ry Medicine-[facility] [place] 170 Work Phone: Borderline Abnormal MP-Pu lmona ry Medicine-[facility] [place] 170 Work Phone: [phone] [facility] [place] 170 Work Phone: [phone] [facility] [place] 170 Work Phone: [phone] MP-[facility] 170 Work Phone: [phone] 1 [facility] 170 Work Phone: [phone] 1 MP-Pul[facility]a [facility] [place] 170 Work Phone: [phone] 1 [facility] 170 Work Phone: 37 1 [facility] Work Phone: 13 1 [facility] Work Phone: 44 1 [facility] 170 Work Phone: [phone] 1 [facility] 170 Work Phone: 340 1 [facility] 170 Work Phone: 72 1 [facility] 170 Work Phone: 124 1 [facility] 170 Work Phone: 113 1 [facility] 170 Work Phone: Streptolysin O Antibodies, [facility] 04-11-2021 Streptolysin O Ab Qn 270 [IU]/mL above high threshold 0 - 200 [facility] 170 Work Phone: Vital Signs Date Time Vital Sign Value Performing Clinician Ritesh white 11-10-2023 10:39-0400 Body height 152.4 cm Natali Child MD Work Phone: [facility] 11-10-2023 10:39-0400 Body mass index (BMI) [Ratio] 32.38 kg/m2 Natali Child MD Work Phone: [facility] 11-10-2023 10:39-0400 Body temperature 97.5 [degF] Natali Child MD Work Phone: [facility] 11-10-2023 10:39-0400 Body weight 75.2 kg Natali Child MD Work Phone: [facility] 11-10-2023 10:39-0400 Diastolic blood pressure 78 mm[Hg] Natali Child MD Work Phone: [facility] 11-10-2023 10:39-0400 Heart rate 78 /min Natali Child MD Work Phone: [facility] 11-10-2023 10:39-0400 Respiratory rate 16 /min Natali Child MD Work Phone: [facility] 11-10-2023 10:39-0400 SaO2% (BldA) [Mass fraction] 100 % Natali Child MD Work Phone: [facility] 11-10-2023 10:39-0400 Systolic blood pressure 111 mm[Hg] Natali Child MD Work Phone: [facility] 10-27-2023 11:00-0400 Body temperature 98.2 [degF] [facility] Work Phone: [facility] 10-27-2023 11:00-0400 Diastolic blood pressure 81 mm[Hg] [facility] Work Phone: [facility] 10-27-2023 11:00-0400 Heart rate 82 /min [facility] Work Phone: [facility] 10-27-2023 11:00-0400 Respiratory rate 18 /min [facility] Work Phone: [facility] 10-27-2023 11:00-0400 SaO2% (BldA) [Mass fraction] 100 % [facility] Work Phone: [facility] 10-27-2023 11:00-0400 Systolic blood pressure 116 mm[Hg] [facility] Work Phone: [facility] 10-20-2023 10:20-0400 Body temperature 97.39 [degF] [facility] Work Phone: [facility] 10-20-2023 10:20-0400 Diastolic blood pressure 78 mm[Hg] [facility] Work Phone: [facility] 10-20-2023 10:20-0400 Heart rate 71 /min [facility] Work Phone: [facility] 10-20-2023 10:20-0400 Respiratory rate 16 /min [facility] Work Phone: [facility] 10-20-2023 10:20-0400 SaO2% (BldA) [Mass fraction] 100 % [facility] Work Phone: [facility] 10-20-2023 10:20-0400 Systolic blood pressure 119 mm[Hg] [facility] Work Phone: [facility] 10-18-2023 12:20-0400 Body height 152.4 cm [facility] Work Phone: [facility] 10-18-2023 12:20-0400 Body mass index (BMI) [Ratio] 31.34 kg/m2 [facility] Work Phone: [facility] 10-18-2023 12:20-0400 Body temperature 97.9 [degF] [facility] Work Phone: [facility] 10-18-2023 12:20-0400 Body weight 72.8 kg [facility] Work Phone: [facility] 10-18-2023 12:20-0400 Diastolic blood pressure 66 mm[Hg] [facility] Work Phone: [facility] 10-18-2023 12:20-0400 Heart rate 79 /min [facility] Work Phone: [facility] 10-18-2023 12:20-0400 SaO2% (BldA) [Mass fraction] 100 % [facility] Work Phone: [facility] 10-18-2023 12:20-0400 Systolic blood pressure 106 mm[Hg] [facility] Work Phone: [facility] 10-14-2023 13:56-0400 Body height 152.4 cm Joanne Overton SUPERVISOR PROCESS TESTING.LIGHTING SPECIALIST Work Phone: [facility] 10-14-2023 13:56-0400 Body mass index (BMI) [Ratio] 31.83 kg/m2 Joanne Overton SUPERVISOR PROCESS TESTING.LIGHTING SPECIALIST Work Phone: [facility] 10-14-2023 13:56-0400 Body weight 73.94 kg Joanne Overton SUPERVISOR PROCESS TESTING.LIGHTING SPECIALIST Work Phone: [facility] 10-14-2023 13:56-0400 Diastolic blood pressure 72 mm[Hg] Joanne Overton SUPERVISOR PROCESS TESTING.LIGHTING SPECIALIST Work Phone: [facility] 10-14-2023 13:56-0400 Heart rate 81 /min Joanne Overton SUPERVISOR PROCESS TESTING.LIGHTING SPECIALIST Work Phone: [facility] 10-14-2023 13:56-0400 SaO2% (BldA) [Mass fraction] 100 % Joanne Overton SUPERVISOR PROCESS TESTING.LIGHTING SPECIALIST Work Phone: [facility] 10-14-2023 13:56-0400 Systolic blood pressure 115 mm[Hg] Joanne Overton SUPERVISOR PROCESS TESTING.LIGHTING SPECIALIST Work Phone: [facility] 10-13-2023 10:25-0400 Body temperature 97.9 [degF] [facility] Work Phone: [facility] 10-13-2023 10:25-0400 Diastolic blood pressure 85 mm[Hg] [facility] Work Phone: [facility] 10-13-2023 10:25-0400 Heart rate 75 /min [facility] Work Phone: [facility] 10-13-2023 10:25-0400 Respiratory rate 18 /min [facility] Work Phone: [facility] 10-13-2023 10:25-0400 SaO2% (BldA) [Mass fraction] 100 % [facility] Work Phone: [facility] 10-13-2023 10:25-0400 Systolic blood pressure 121 mm[Hg] [facility] Work Phone: [facility] 09-29-2023 10:35-0400 Diastolic blood pressure 77 mm[Hg] [facility] Work Phone: [facility] 09-29-2023 10:35-0400 Heart rate 85 /min [facility] Work Phone: [facility] 09-29-2023 10:35-0400 Respiratory rate 18 /min [facility] Work Phone: [facility] 09-29-2023 10:35-0400 SaO2% (BldA) [Mass fraction] 99 % [facility] Work Phone: [facility] 09-29-2023 10:35-0400 Systolic blood pressure 119 mm[Hg] [facility] Work Phone: [facility] 09-08-2023 10:50-0400 Body temperature 97.9 [degF] [facility] Work Phone: [facility] 09-08-2023 10:50-0400 Diastolic blood pressure 85 mm[Hg] [facility] Work Phone: [facility] 09-08-2023 10:50-0400 Heart rate 64 /min [facility] Work Phone: [facility] 09-08-2023 10:50-0400 Respiratory rate 18 /min [facility] Work Phone: [facility] 09-08-2023 10:50-0400 SaO2% (BldA) [Mass fraction] 98 % [facility] Work Phone: [facility] 09-08-2023 10:50-0400 Systolic blood pressure 131 mm[Hg] [facility] Work Phone: [facility] 09-01-2023 10:13-0400 Body temperature 98.1 [degF] [facility] Work Phone: [facility] 09-01-2023 10:130400 Diastolic blood pressure 83 mm[Hg] [facility] Work Phone: [facility] 09-01-2023 10:13-0400 Heart rate 72 /min [facility] Work Phone: [facility] 09-01-2023 10:13-0400 Respiratory rate 18 /min [facility] Work Phone: [facility] 09-01-2023 10:130400 SaO2% (BldA) [Mass fraction] 100 % [facility] Work Phone: [facility] 09-01-2023 10:13-0400 Systolic blood pressure 122 mm[Hg] [facility] Work Phone: [facility] 08-18-2023 10:17-0400 Body height 152.4 cm Natali Child MD Work Phone: [facility] 08-18-2023 10:17-0400 Body mass index (BMI) [Ratio] 31.95 kg/m2 Natali Child MD Work Phone: [facility] 08-18-2023 10:17-0400 Body temperature 97.3 [degF] Natali Child MD Work Phone: [facility] 08-18-2023 10:17-0400 Body weight 74.2 kg Natali Child MD Work Phone: [facility] 08-18-2023 10:17-0400 Diastolic blood pressure 86 mm[Hg] Natali Child MD Work Phone: [facility] 08-18-2023 10:17-0400 Heart rate 77 /min Natali Child MD Work Phone: [facility] 08-18-2023 10:17-0400 Respiratory rate 16 /min Natali Child MD Work Phone: [facility] 08-18-2023 10:17-0400 SaO2% (BldA) [Mass fraction] 99 % Natali Child MD Work Phone: [facility] 08-18-2023 10:17-0400 Systolic blood pressure 124 mm[Hg] Natali Child MD Work Phone: [facility] 08-11-2023 12:05-0400 Body temperature 98.2 [degF] [facility] Work Phone: [facility] 08-11-2023 12:05-0400 Diastolic blood pressure 89 mm[Hg] [facility] Work Phone: [facility] 08-11-2023 12:05-0400 Heart rate 77 /min [facility] Work Phone: [facility] 08-11-2023 12:05-0400 Respiratory rate 18 /min [facility] Work Phone: [facility] 08-11-2023 12:05-0400 SaO2% (BldA) [Mass fraction] 100 % [facility] Work Phone: [facility] 08-11-2023 12:05-0400 Systolic blood pressure 126 mm[Hg] [facility] Work Phone: [facility] 08-04-2023 09:46-0400 Body temperature 98.1 [degF] [facility] Work Phone: [facility] 08-04-2023 09:46-0400 Diastolic blood pressure 82 mm[Hg] [facility] Work Phone: [facility] 08-04-2023 09:46-0400 Heart rate 77 /min [facility] Work Phone: [facility] 08-04-2023 09:46-0400 Respiratory rate 16 /min [facility] Work Phone: [facility] 08-04-2023 09:46-0400 SaO2% (BldA) [Mass fraction] 100 % [facility] Work Phone: [facility] 08-04-2023 09:46-0400 Systolic blood pressure 122 mm[Hg] [facility] Work Phone: [facility] 07-21-2023 13:49-0400 Body temperature 98.29 [degF] [facility] Work Phone: [facility] 07-21-2023 13:49-0400 Diastolic blood pressure 96 mm[Hg] [facility] Work Phone: [facility] 07-21-2023 13:49-0400 Heart rate 83 /min [facility] Work Phone: [facility] 07-21-2023 13:49-0400 Respiratory rate 18 /min [facility] Work Phone: [facility] 07-21-2023 13:49-0400 SaO2% (BldA) [Mass fraction] 100 % [facility] Work Phone: [facility] 07-21-2023 13:49-0400 Systolic blood pressure 149 mm[Hg] [facility] Work Phone: [facility] 07-07-2023 10:50-0400 Body height 152.4 cm Natali Child MD Work Phone: [facility] 07-07-2023 10:50-0400 Body mass index (BMI) [Ratio] 31.69 kg/m2 Natali Child MD Work Phone: [facility] 07-07-2023 10:50-0400 Body temperature 97.39 [degF] Natali Child MD Work Phone: [facility] 07-07-2023 10:50-0400 Body weight 73.6 kg Natali Child MD Work Phone: [facility] 07-07-2023 10:50-0400 Diastolic blood pressure 98 mm[Hg] Natali Child MD Work Phone: [facility] 07-07-2023 10:50-0400 Heart rate 75 /min Natali Child MD Work Phone: [facility] 07-07-2023 10:50-0400 Respiratory rate 16 /min Natali Child MD Work Phone: [facility] 07-07-2023 10:50-0400 SaO2% (BldA) [Mass fraction] 100 % Natali Child MD Work Phone: [facility] 07-07-2023 10:50-0400 Systolic blood pressure 141 mm[Hg] Natali Child MD Work Phone: [facility] 06-30-2023 11:26-0400 Body temperature 98.2 [degF] [facility] Work Phone: [facility] 06-30-2023 11:26-0400 Diastolic blood pressure 105 mm[Hg] [facility] Work Phone: [facility] 06-30-2023 11:26-0400 Heart rate 73 /min [facility] Work Phone: [facility] 06-30-2023 11:26-0400 Respiratory rate 16 /min [facility] Work Phone: [facility] 06-30-2023 11:26-0400 SaO2% (BldA) [Mass fraction] 100 % [facility] Work Phone: [facility] 06-30-2023 11:26-0400 Systolic blood pressure 155 mm[Hg] [facility] Work Phone: [facility] 06-23-2023 11:24-0400 Body temperature 97.7 [degF] [facility] Work Phone: [facility] 06-23-2023 11:24-0400 Diastolic blood pressure 92 mm[Hg] [facility] Work Phone: [facility] 06-23-2023 11:24-0400 Heart rate 69 /min [facility] Work Phone: [facility] 06-23-2023 11:24-0400 Respiratory rate 18 /min [facility] Work Phone: [facility] 06-23-2023 11:24-0400 SaO2% (BldA) [Mass fraction] 100 % [facility] Work Phone: [facility] 06-23-2023 11:24-0400 Systolic blood pressure 143 mm[Hg] [facility] Work Phone: [facility] 06-16-2023 11:05-0400 Body temperature 97.59 [degF] [facility] Work Phone: [facility] 06-16-2023 11:05-0400 Diastolic blood pressure 93 mm[Hg] [facility] Work Phone: [facility] 06-16-2023 11:05-0400 Heart rate 67 /min [facility] Work Phone: [facility] 06-16-2023 11:05-0400 Respiratory rate 16 /min [facility] Work Phone: [facility] 06-16-2023 11:05-0400 SaO2% (BldA) [Mass fraction] 100 % [facility] Work Phone: [facility] 06-16-2023 11:05-0400 Systolic blood pressure 148 mm[Hg] [facility] Work Phone: [facility] 06-02-2023 11:44-0400 Body temperature 97.9 [degF] [facility] Work Phone: [facility] 06-02-2023 11:44-0400 Diastolic blood pressure 90 mm[Hg] [facility] Work Phone: [facility] 06-02-2023 11:44-0400 Heart rate 78 /min [facility] Work Phone: [facility] 06-02-2023 11:44-0400 Respiratory rate 18 /min [facility] Work Phone: [facility] 06-02-2023 11:44-0400 SaO2% (BldA) [Mass fraction] 100 % [facility] Work Phone: [facility] 06-02-2023 11:44-0400 Systolic blood pressure 130 mm[Hg] [facility] Work Phone: [facility] 05-27-2023 11:01-0400 Body height 152.4 cm Joanne Rickeys SUPERVISOR PROCESS TESTING.LIGHTING SPECIALIST Work Phone: [facility] 05-27-2023 11:01-0400 Body temperature 97.9 [degF] Joanne Baldomerotos SUPERVISOR PROCESS TESTING.LIGHTING SPECIALIST Work Phone: [facility] 05-27-2023 11:01-0400 Body weight 68.04 kg Joanne Rickeys SUPERVISOR PROCESS TESTING.LIGHTING SPECIALIST Work Phone: [facility] 05-27-2023 11:01-0400 Diastolic blood pressure 83 mm[Hg] Joanne Baldomerotos SUPERVISOR PROCESS TESTING.LIGHTING SPECIALIST Work Phone: [facility] 05-27-2023 11:01-0400 Heart rate 87 /min Joanne Badlomerotos SUPERVISOR PROCESS TESTING.LIGHTING SPECIALIST Work Phone: [facility] 05-27-2023 11:01-0400 Respiratory rate 14 /min Joanne Kontos SUPERVISOR PROCESS TESTING.LIGHTING SPECIALIST Work Phone: [facility] 05-27-2023 11:01-0400 SaO2% (BldA) [Mass fraction] 100 % Joanne Overton APRN.LIGHTING SPECIALIST Work Phone: [facility] 05-27-2023 11:01-0400 Systolic blood pressure 113 mm[Hg] Joanne Overton APRN.LIGHTING SPECIALIST Work Phone: [facility] 05-26-2023 11:15-0400 Body height 152.4 cm Argentina Maradiaga APRN.LIGHTING SPECIALIST Work Phone: [facility] 05-26-2023 11:15-0400 Body temperature 97.39 [degF] Argentina Maradiaga APRN.LIGHTING SPECIALIST Work Phone: [facility] 05-26-2023 11:15-0400 Body weight 68.9 kg Argentina Maradiaga APRN.LIGHTING SPECIALIST Work Phone: [facility] 05-26-2023 11:15-0400 Diastolic blood pressure 84 mm[Hg] Argentina Maradiaga APRN.LIGHTING SPECIALIST Work Phone: [facility] 05-26-2023 11:15-0400 Heart rate 85 /min Argentina Maradiaga APRN.LIGHTING SPECIALIST Work Phone: [facility] 05-26-2023 11:15-0400 Respiratory rate 16 /min Argentina Maradiaga APRN.LIGHTING SPECIALIST Work Phone: [facility] 05-26-2023 11:15-0400 SaO2% (BldA) [Mass fraction] 98 % Argentina Maradiaga APRN.LIGHTING SPECIALIST Work Phone: [facility] 05-26-2023 11:15-0400 Systolic blood pressure 126 mm[Hg] Argentina Maradiaga APRN.LIGHTING SPECIALIST Work Phone: [facility] 05-05-2023 11:40-0500 Body temperature 97.9 [degF] [facility] Work Phone: [facility] 05-05-2023 11:40-0500 Diastolic blood pressure 86 mm[Hg] [facility] Work Phone: [facility] 05-05-2023 11:40-0500 Heart rate 85 /min [facility] Work Phone: [facility] 05-05-2023 11:40-0500 Respiratory rate 18 /min [facility] Work Phone: [facility] 05-05-2023 11:40-0500 SaO2% (BldA) [Mass fraction] 99 % [facility] Work Phone: [facility] 05-05-2023 11:40-0500 Systolic blood pressure 119 mm[Hg] [facility] Work Phone: [facility] 04-28-2023 14:47-0500 Body temperature 98.01 [degF] [facility] Work Phone: [facility] 04-28-2023 14:47-0500 Diastolic blood pressure 75 mm[Hg] [facility] Work Phone: [facility] 04-28-2023 14:47-0500 Heart rate 94 /min [facility] Work Phone: [facility] 04-28-2023 14:47-0500 Respiratory rate 16 /min [facility] Work Phone: [facility] 04-28-2023 14:47-0500 SaO2% (BldA) [Mass fraction] 98 % [facility] Work Phone: [facility] 04-28-2023 14:47-0500 Systolic blood pressure 108 mm[Hg] [facility] Work Phone: [facility] 04-14-2023 10:24-0500 Body height 152.4 cm Natali Child MD Work Phone: [facility] 04-14-2023 10:24-0500 Body temperature 97.11 [degF] Natali Child MD Work Phone: [facility] 04-14-2023 10:24-0500 Body weight 68.5 kg Natali Child MD Work Phone: [facility] 04-14-2023 10:24-0500 Diastolic blood pressure 90 mm[Hg] Natali Child MD Work Phone: [facility] 04-14-2023 10:24-0500 Heart rate 73 /min Natali Child MD Work Phone: [facility] 04-14-2023 10:24-0500 Respiratory rate 16 /min Natali Child MD Work Phone: [facility] 04-14-2023 10:24-0500 SaO2% (BldA) [Mass fraction] 100 % Natali Child MD Work Phone: [facility] 04-14-2023 10:24-0500 Systolic blood pressure 130 mm[Hg] Natali Child MD Work Phone: [facility] 02-17-2023 10:22-0500 Diastolic blood pressure 96 mm[Hg] [facility] Work Phone: [facility] 02-17-2023 10:22-0500 Heart rate 94 /min [facility] Work Phone: [facility] 02-17-2023 10:22-0500 Respiratory rate 18 /min [facility] Work Phone: [facility] 02-17-2023 10:22-0500 SaO2% (BldA) [Mass fraction] 99 % [facility] Work Phone: [facility] 02-17-2023 10:22-0500 Systolic blood pressure 141 mm[Hg] [facility] Work Phone: [facility] 02-03-2023 15:02-0500 Body height 152.4 cm Natali Child MD Work Phone: [facility] 02-03-2023 15:02-0500 Body temperature 97.9 [degF] Natali Child MD Work Phone: [facility] 02-03-2023 15:02-0500 Body weight 72.58 kg Natali Child MD Work Phone: [facility] 02-03-2023 15:02-0500 Diastolic blood pressure 100 mm[Hg] Natali Child MD Work Phone: [facility] 02-03-2023 15:02-0500 Heart rate 103 /min Natali Child MD Work Phone: [facility] 02-03-2023 15:02-0500 Respiratory rate 16 /min Natali Child MD Work Phone: [facility] 02-03-2023 15:02-0500 SaO2% (BldA) [Mass fraction] 100 % Natali Child MD Work Phone: [facility] 02-03-2023 15:02-0500 Systolic blood pressure 136 mm[Hg] Natali Child MD Work Phone: [facility] 01-29-2023 14:27-0500 Body temperature 98.3 [degF] MD Jeffrey Burrows Work Phone: [facility] 01-29-2023 14:27-0500 Diastolic blood pressure 100 mm[Hg] MD Jeffrey Burrows Work Phone: [facility] 01-29-2023 14:27-0500 Heart rate 99 /min MD Jeffrey Burrows Work Phone: [facility] 01-29-2023 14:27-0500 Respiratory rate 16 /min MD Jeffrey Burrows Work Phone: [facility] 01-29-2023 14:27-0500 SaO2% (BldA) [Mass fraction] 100 % MD Jeffrey Burrows Work Phone: [facility] 01-29-2023 14:27-0500 Systolic blood pressure 146 mm[Hg] MD Jeffrey Burrows Work Phone: [facility] 01-27-2023 10:20-0500 Body temperature 98.1 [degF] [facility] Work Phone: [facility] 01-27-2023 10:20-0500 Diastolic blood pressure 95 mm[Hg] [facility] Work Phone: [facility] 01-27-2023 10:20-0500 Heart rate 92 /min [facility] Work Phone: [facility] 01-27-2023 10:20-0500 Respiratory rate 16 /min [facility] Work Phone: [facility] 01-27-2023 10:20-0500 SaO2% (BldA) [Mass fraction] 100 % [facility] Work Phone: [facility] 01-27-2023 10:20-0500 Systolic blood pressure 137 mm[Hg] [facility] Work Phone: [facility] 01-20-2023 10:23-0500 Body temperature 98.1 [degF] [facility] Work Phone: [facility] 01-20-2023 10:23-0500 Diastolic blood pressure 99 mm[Hg] [facility] Work Phone: [facility] 01-20-2023 10:23-0500 Heart rate 102 /min [facility] Work Phone: [facility] 01-20-2023 10:23-0500 Respiratory rate 18 /min [facility] Work Phone: [facility] 01-20-2023 10:23-0500 SaO2% (BldA) [Mass fraction] 98 % [facility] Work Phone: [facility] 01-20-2023 10:23-0500 Systolic blood pressure 136 mm[Hg] [facility] Work Phone: [facility] 12-31-2022 07:48-0400 Body height 152.4 cm Daniel Toro MD Work Phone: [facility] 12-31-2022 07:48-0400 Body weight 77.11 kg Daniel Toro MD Work Phone: [facility] 12-31-2022 07:48-0400 Diastolic blood pressure 97 mm[Hg] Daniel Toro MD Work Phone: [facility] 12-31-2022 07:48-0400 Heart rate 111 /min Daniel Toro MD Work Phone: [facility] 12-31-2022 07:48-0400 Systolic blood pressure 138 mm[Hg] Daniel Toro MD Work Phone: [facility] 12-30-2022 10:25-0400 Body height 152.4 cm [facility] Work Phone: [facility] 12-30-2022 10:25-0400 Body temperature 97.39 [degF] [facility] Work Phone: [facility] 12-30-2022 10:25-0400 Body weight 78.2 kg [facility] Work Phone: [facility] 12-30-2022 10:25-0400 Diastolic blood pressure 75 mm[Hg] [facility] Work Phone: [facility] 12-30-2022 10:25-0400 Heart rate 104 /min [facility] Work Phone: [facility] 12-30-2022 10:25-0400 SaO2% (BldA) [Mass fraction] 100 % [facility] Work Phone: [facility] 12-30-2022 10:25-0400 Systolic blood pressure 118 mm[Hg] [facility] Work Phone: [facility] 12-30-2022 10:11-0400 Body temperature 97.39 [degF] [facility] Work Phone: [facility] 12-30-2022 10:11-0400 Body weight 78.25 kg [facility] Work Phone: [facility] 12-30-2022 10:11-0400 Diastolic blood pressure 75 mm[Hg] [facility] Work Phone: [facility] 12-30-2022 10:11-0400 Heart rate 104 /min [facility] Work Phone: [facility] 12-30-2022 10:11-0400 SaO2% (BldA) [Mass fraction] 100 % [facility] Work Phone: [facility] 12-30-2022 10:11-0400 Systolic blood pressure 118 mm[Hg] [facility] Work Phone: [facility] 12-25-2022 15:38-0400 Body temperature 98.4 [degF] MD Jeffrey Burrows Work Phone: [facility] 12-25-2022 15:38-0400 Diastolic blood pressure 91 mm[Hg] MD Jeffrey Burrows Work Phone: [facility] 12-25-2022 15:38-0400 Heart rate 71 /min MD Jeffrey Burrows Work Phone: [facility] 12-25-2022 15:38-0400 Respiratory rate 18 /min MD Jeffrey Burrows Work Phone: [facility] 12-25-2022 15:38-0400 SaO2% (BldA) [Mass fraction] 99 % MD Jeffrey Burrows Work Phone: [facility] 12-25-2022 15:38-0400 Systolic blood pressure 135 mm[Hg] MD Jeffrey Burrows Work Phone: [facility] 12-24-2022 14:43-0400 Body height 152.4 cm Natali Child MD Work Phone: [facility] 12-24-2022 14:43-0400 Body temperature 97.59 [degF] Natali Child MD Work Phone: [facility] 12-24-2022 14:43-0400 Body weight 77.38 kg Natali Child MD Work Phone: [facility] 12-24-2022 14:43-0400 Diastolic blood pressure 85 mm[Hg] Natali Child MD Work Phone: [facility] 12-24-2022 14:43-0400 Heart rate 109 /min Natali Child MD Work Phone: [facility] 12-24-2022 14:43-0400 Respiratory rate 16 /min Natali Child MD Work Phone: [facility] 12-24-2022 14:43-0400 SaO2% (BldA) [Mass fraction] 97 % Natali Child MD Work Phone: [facility] 12-24-2022 14:43-0400 Systolic blood pressure 140 mm[Hg] Natali Child MD Work Phone: [facility] 12-22-2022 13:50-0400 Diastolic blood pressure 76 mm[Hg] Deidra Reed MD Work Phone: [facility] 12-22-2022 13:50-0400 Heart rate 93 /min Deidra Reed MD Work Phone: [facility] 12-22-2022 13:50-0400 Respiratory rate 16 /min Deidra Reed MD Work Phone: [facility] 12-22-2022 13:50-0400 SaO2% (BldA) [Mass fraction] 100 % Deidra Reed MD Work Phone: [facility] 12-22-2022 13:50-0400 Systolic blood pressure 121 mm[Hg] Deidra Reed MD Work Phone: [facility] 12-22-2022 13:32-0400 Body temperature 97.5 [degF] Deidra Reed MD Work Phone: [facility] 12-22-2022 12:59-0400 Body height 152.4 cm Dedira Reed MD Work Phone: [facility] 12-22-2022 12:59-0400 Body weight 81.65 kg Deidra Reed MD Work Phone: [facility] 11-24-2022 09:40-0400 Body weight 84.91 kg Te Avendaño MD Work Phone: [facility] 11-24-2022 09:40-0400 Diastolic blood pressure 72 mm[Hg] Te Avendaño MD Work Phone: [facility] 11-24-2022 09:40-0400 Heart rate 120 /min Te Avendaño MD Work Phone: [facility] 11-24-2022 09:40-0400 Systolic blood pressure 117 mm[Hg] Te Avendaño MD Work Phone: [facility] 11-13-2022 14:34-0400 Body height 152.4 cm Philip Escalante MD Work Phone: [facility] 11-13-2022 14:34-0400 Body weight 83.01 kg Philip Escalante MD Work Phone: [facility] 11-13-2022 14:34-0400 Diastolic blood pressure 74 mm[Hg] Philip Escalante MD Work Phone: [facility] 11-13-2022 14:34-0400 Heart rate 117 /min Philip Escalante MD Work Phone: [facility] 11-13-2022 14:34-0400 SaO2% (BldA) [Mass fraction] 99 % Philip Escalante MD Work Phone: [facility] 11-13-2022 14:34-0400 Systolic blood pressure 106 mm[Hg] Philip Escalante MD Work Phone: [facility] 10-01-2022 10:11-0400 Body height 152.4 cm Lauren Rodriguez MD Work Phone: [facility] 10-01-2022 10:11-0400 Body weight 87.54 kg Lauren Rodriguez MD Work Phone: [facility] 10-01-2022 10:11-0400 Diastolic blood pressure 88 mm[Hg] Lauren Rodriguez MD Work Phone: [facility] 10-01-2022 10:11-0400 Heart rate 116 /min Lauren Rodriguez MD Work Phone: [facility] 10-01-2022 10:11-0400 SaO2% (BldA) [Mass fraction] 100 % Lauren Rodriguez MD Work Phone: [facility] 10-01-2022 10:11-0400 Systolic blood pressure 119 mm[Hg] Luaren Rodriguez MD Work Phone: [facility] 09-03-2022 14:23-0400 Diastolic blood pressure 103 mm[Hg] MD Jeffrey Burrows Work Phone: [facility] 09-03-2022 14:23-0400 Heart rate 90 /min MD Jeffrey Burrows Work Phone: [facility] 09-03-2022 14:23-0400 Systolic blood pressure 145 mm[Hg] MD Jeffrey Burrows Work Phone: [facility] 09-03-2022 12:26-0400 Body height 154.94 cm MD Jeffrey Burrows Work Phone: [facility] 09-03-2022 12:26-0400 Body temperature 98.4 [degF] MD Jeffrey Burrows Work Phone: [facility] 09-03-2022 12:26-0400 Body weight 88.95 kg MD Jeffrey Burrows Work Phone: [facility] 09-03-2022 12:26-0400 Respiratory rate 17 /min MD Jeffrey Burrows Work Phone: [facility] 09-03-2022 12:26-0400 SaO2% (BldA) [Mass fraction] 99 % MD Jeffrey Burrows Work Phone: [facility] 05-11-2022 14:32-0500 Body height 152.4 cm Natali Child MD Work Phone: [facility] 05-11-2022 14:32-0500 Body temperature 97.5 [degF] Natali Child MD Work Phone: [facility] 05-11-2022 14:32-0500 Body weight 87.73 kg Natali Child MD Work Phone: [facility] 05-11-2022 14:32-0500 Diastolic blood pressure 87 mm[Hg] Natali Child MD Work Phone: [facility] 05-11-2022 14:32-0500 Heart rate 102 /min Natali Child MD Work Phone: [facility] 05-11-2022 14:32-0500 Respiratory rate 16 /min Natali Child MD Work Phone: [facility] 05-11-2022 14:32-0500 SaO2% (BldA) [Mass fraction] 99 % Natali Child MD Work Phone: [facility] 05-11-2022 14:32-0500 Systolic blood pressure 148 mm[Hg] Natali Child MD Work Phone: [facility] 04-27-2022 15:22-0500 Body height 152.4 cm Natali Child MD Work Phone: [facility] 04-27-2022 15:22-0500 Body temperature 97.5 [degF] Natali Child MD Work Phone: [facility] 04-27-2022 15:22-0500 Body weight 88.54 kg Natali Child MD Work Phone: [facility] 04-27-2022 15:22-0500 Diastolic blood pressure 96 mm[Hg] Natali Child MD Work Phone: [facility] 04-27-2022 15:22-0500 Heart rate 113 /min Natali Child MD Work Phone: [facility] 04-27-2022 15:22-0500 Respiratory rate 16 /min Natali Child MD Work Phone: [facility] 04-27-2022 15:22-0500 SaO2% (BldA) [Mass fraction] 100 % Natali Child MD Work Phone: [facility] 04-27-2022 15:22-0500 Systolic blood pressure 155 mm[Hg] Natali Child MD Work Phone: [facility] 03-11-2022 10:04-0500 Body height 152.4 cm Brenna Girard SUPERVISOR PROCESS TESTING.LIGHTING SPECIALIST Work Phone: [facility] 03-11-2022 10:04-0500 Body temperature 98.29 [degF] Brenna Girard SUPERVISOR PROCESS TESTING.LIGHTING SPECIALIST Work Phone: [facility] 03-11-2022 10:04-0500 Body weight 87.18 kg Brenna Girard SUPERVISOR PROCESS TESTING.LIGHTING SPECIALIST Work Phone: [facility] 03-11-2022 10:04-0500 Diastolic blood pressure 96 mm[Hg] Brenna Girard SUPERVISOR PROCESS TESTING.LIGHTING SPECIALIST Work Phone: [facility] 03-11-2022 10:04-0500 Heart rate 105 /min Brenna Girard SUPERVISOR PROCESS TESTING.LIGHTING SPECIALIST Work Phone: [facility] 03-11-2022 10:04-0500 SaO2% (BldA) [Mass fraction] 98 % Brenna Girard SUPERVISOR PROCESS TESTING.LIGHTING SPECIALIST Work Phone: [facility] 03-11-2022 10:04-0500 Systolic blood pressure 133 mm[Hg] Brenna Shaji ANSARILIGHTING SPECIALIST Work Phone: [facility] 02-11-2022 10:37-0500 Body height 152.4 cm Sue Montenegro DO Work Phone: [facility] 02-11-2022 10:37-0500 Body temperature 97.3 [degF] Sue Montenegro DO Work Phone: [facility] 02-11-2022 10:37-0500 Body weight 81.65 kg Sue Montenegro DO Work Phone: [facility] 02-11-2022 10:37-0500 Diastolic blood pressure 88 mm[Hg] Sue Montenegro DO Work Phone: [facility] 02-11-2022 10:37-0500 Heart rate 103 /min Sue Montenegro DO Work Phone: [facility] 02-11-2022 10:37-0500 Respiratory rate 20 /min Sue Montenegro DO Work Phone: [facility] 02-11-2022 10:37-0500 SaO2% (BldA) [Mass fraction] 97 % Sue Montenegro DO Work Phone: [facility] 02-11-2022 10:37-0500 Systolic blood pressure 138 mm[Hg] Sue Montenegro DO Work Phone: [facility] 12-11-2021 09:39-0400 Body height 152.4 cm Te Avendaño MD Work Phone: [facility] 12-11-2021 09:39-0400 Body weight 79.06 kg Te Avendaño MD Work Phone: [facility] 12-11-2021 09:39-0400 Diastolic blood pressure 89 mm[Hg] Te Avendaño MD Work Phone: [facility] 12-11-2021 09:39-0400 Heart rate 72 /min Te Avendaño MD Work Phone: [facility] 12-11-2021 09:39-0400 Systolic blood pressure 140 mm[Hg] Te Avendaño MD Work Phone: [facility] 11-03-2021 12:52-0400 Body height 152.4 cm [facility] Work Phone: [facility] 11-03-2021 12:52-0400 Body temperature 97.7 [degF] [facility] Work Phone: [facility] 11-03-2021 12:52-0400 Body weight 79.24 kg [facility] Work Phone: [facility] 11-03-2021 12:52-0400 Diastolic blood pressure 88 mm[Hg] [facility] Work Phone: [facility] 11-03-2021 12:52-0400 Heart rate 81 /min [facility] Work Phone: [facility] 11-03-2021 12:52-0400 SaO2% (BldA) [Mass fraction] 100 % [facility] Work Phone: [facility] 11-03-2021 12:52-0400 Systolic blood pressure 157 mm[Hg] [facility] Work Phone: [facility] 11-03-2021 12:42-0400 Body height 152.4 cm [facility] Work Phone: [facility] 11-03-2021 12:42-0400 Body temperature 97.7 [degF] [facility] Work Phone: [facility] 11-03-2021 12:42-0400 Body weight 79.24 kg [facility] Work Phone: [facility] 11-03-2021 12:42-0400 Diastolic blood pressure 88 mm[Hg] [facility] Work Phone: [facility] 11-03-2021 12:42-0400 Heart rate 81 /min [facility] Work Phone: [facility] 11-03-2021 12:42-0400 SaO2% (BldA) [Mass fraction] 100 % [facility] Work Phone: [facility] 11-03-2021 12:42-0400 Systolic blood pressure 157 mm[Hg] [facility] Work Phone: [facility] 10-13-2021 15:14-0400 Body height 152.4 cm Es Ramachandran [facility] 10-13-2021 15:14-0400 Body weight 77.11 kg Es Ramachandran DANG [facility] dandy 10-10-2021 12:03-0400 Body temperature 98.1 [degF] Covid 1 Work Phone: [facility] 10-10-2021 12:03-0400 Diastolic blood pressure 99 mm[Hg] Covid 1 Work Phone: [facility] 10-10-2021 12:03-0400 Heart rate 81 /min Covid 1 Work Phone: [facility] 10-10-2021 12:03-0400 Respiratory rate 18 /min Covid 1 Work Phone: [facility] 10-10-2021 12:03-0400 SaO2% (BldA) [Mass fraction] 100 % Covid 1 Work Phone: [facility] 10-10-2021 12:03-0400 Systolic blood pressure 154 mm[Hg] Covid 1 Work Phone: [facility] 09-08-2021 09:16-0400 Body height 152.4 cm Te Avendaño MD Work Phone: [facility] 09-08-2021 09:16-0400 Body temperature 97.2 [degF] Te Avendaño MD Work Phone: [facility] 09-08-2021 09:16-0400 Body weight 80.33 kg Te Avendaño MD Work Phone: [facility] 09-08-2021 09:16-0400 Diastolic blood pressure 92 mm[Hg] Te Avendaño MD Work Phone: [facility] 09-08-2021 09:16-0400 Heart rate 79 /min Te Avendaño MD Work Phone: [facility] 09-08-2021 09:16-0400 Systolic blood pressure 132 mm[Hg] Te Avendaño MD Work Phone: [facility] 09-01-2021 12:37-0400 Body height 152.4 cm Fellow Main Work Phone: [facility] 09-01-2021 12:37-0400 Body temperature 97.7 [degF] Fellow Main Work Phone: [facility] 09-01-2021 12:37-0400 Body weight 77.11 kg Fellow Main Work Phone: [facility] 09-01-2021 12:37-0400 Diastolic blood pressure 83 mm[Hg] Fellow Main Work Phone: [facility] 09-01-2021 12:37-0400 Heart rate 89 /min Fellow Main Work Phone: [facility] 09-01-2021 12:37-0400 Systolic blood pressure 145 mm[Hg] Fellow Main Work Phone: [facility] 08-28-2021 17:45-0400 Diastolic blood pressure 94 mm[Hg] MD Robert Patel Work Phone: [facility] 08-28-2021 17:45-0400 Heart rate 83 /min MD Robert Patel Work Phone: [facility] 08-28-2021 17:45-0400 Respiratory rate 16 /min MD Robert Patel Work Phone: [facility] 08-28-2021 17:45-0400 SaO2% (BldA) [Mass fraction] 95 % MD Robert Patel Work Phone: [facility] 08-28-2021 17:45-0400 Systolic blood pressure 135 mm[Hg] MD Robert Patel Work Phone: [facility] 08-28-2021 16:47-0400 Body height 152.4 cm MD Robert Patel Work Phone: [facility] 08-28-2021 16:47-0400 Body mass index (BMI) [Ratio] 34.2 kg/m2 MD Robert Patel Work Phone: [facility] 08-28-2021 16:47-0400 Body weight 79.37 kg MD Robert Patel Work Phone: [facility] 08-28-2021 16:42-0400 Body temperature 97.2 [degF] MD Robert Patel Work Phone: [facility] 08-19-2021 13:07-0400 Body height 152.4 cm MD Robert Patel Work Phone: [facility] 08-19-2021 13:07-0400 Body mass index (BMI) [Ratio] 34.9 kg/m2 MD Robert Patel Work Phone: [facility] 08-19-2021 13:07-0400 Body temperature 98.3 [degF] MD Robert Patel Work Phone: [facility] 08-19-2021 13:07-0400 Body weight 81 kg MD Robert Patel Work Phone: [facility] 08-19-2021 13:07-0400 Diastolic blood pressure 79 mm[Hg] MD Robert Patel Work Phone: [facility] 08-19-2021 13:07-0400 Heart rate 100 /min MD Robert Patel Work Phone: [facility] 08-19-2021 13:07-0400 Respiratory rate 20 /min MD Robert Patel Work Phone: [facility] 08-19-2021 13:07-0400 SaO2% (BldA) [Mass fraction] 99 % MD Robert Patel Work Phone: [facility] 08-19-2021 13:07-0400 Systolic blood pressure 117 mm[Hg] MD Robert Patel Work Phone: [facility] 08-06-2021 16:00-0400 Diastolic blood pressure 81 mm[Hg] Alvino Paredes MD Work Phone: [facility] 08-06-2021 16:00-0400 Heart rate 72 /min Alvino Paredes MD Work Phone: [facility] 08-06-2021 16:00-0400 Respiratory rate 16 /min Alvino Paredes MD Work Phone: [facility] 08-06-2021 16:00-0400 SaO2% (BldA) [Mass fraction] 100 % Alvino Paredes MD Work Phone: [facility] 08-06-2021 16:00-0400 Systolic blood pressure 136 mm[Hg] Alvino Paredes MD Work Phone: [facility] 08-06-2021 15:41-0400 Body temperature 96.8 [degF] Alvino Paredes MD Work Phone: [facility] 08-06-2021 13:58-0400 Body height 152.4 cm Alvino Paredes MD Work Phone: [facility] 08-06-2021 13:58-0400 Body weight 77.56 kg Alvino Paredes MD Work Phone: [facility] 06-20-2021 12:20-0400 Diastolic blood pressure 78 mm[Hg] Nurse Main Work Phone: [facility] 06-20-2021 12:20-0400 Heart rate 92 /min Nurse Main Work Phone: [facility] 06-20-2021 12:20-0400 Systolic blood pressure 124 mm[Hg] Nurse Main Work Phone: [facility] 06-20-2021 11:20-0400 Body temperature 97.9 [degF] Nurse Main Work Phone: [facility] 06-20-2021 11:20-0400 SaO2% (BldA) [Mass fraction] 100 % Nurse Main Work Phone: [facility] 06-06-2021 12:10-0400 Diastolic blood pressure 86 mm[Hg] Rheu Raven Work Phone: [facility] 06-06-2021 12:10-0400 Heart rate 74 /min Rheu Raven Work Phone: [facility] 06-06-2021 12:10-0400 Systolic blood pressure 142 mm[Hg] Rheu Raven Work Phone: [facility] 06-06-2021 08:45-0400 Body temperature 97 [degF] Rheu Raven Work Phone: [facility] 06-06-2021 08:45-0400 Respiratory rate 18 /min Rheu Raven Work Phone: [facility] 04-21-2021 20:36-0500 Body temperature 98.6 [degF] [facility] 04-21-2021 20:36-0500 Diastolic blood pressure 88 mm[Hg] Pcp Unknown [facility] 04-21-2021 20:36-0500 Heart rate 117 /min Pcp Unknown [facility] 04-21-2021 20:36-0500 Respiratory rate 28 /min [facility]cp [facility] 04-21-2021 20:36-0500 Systolic blood pressure 157 mm[Hg] Pcp Unknown [facility] 04-21-2021 14:00-0500 SaO2% (BldA) [Mass fraction] 97 % Pcp Unknown [facility] Encounters Encounter Date Encounter Type Care Provider Facility Start: 11-12-2023 End: 11-12-2023 ambulatory [facility]ST [facility] Start: 11-10-2023 End: 11-10-2023 Office outpatient visit 15 minutes Natali Chlid MD Work Phone: Hematology/Oncology Comment on above: Anemia in chronic ki dney disease, on chronic dialysis (HCC) (Primary Dx); 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 with renal involvement (HCC) Start: 11-10-2023 End: 11-10-2023 ambulatory [facility] [facility] Work Phone: Hematology/Oncology Comment on above: Anemia in chronic ki dney disease, on chronic dialysis (HCC) (Primary Dx) Start: 11-09-2023 End: 11-09-2023 Orders Only Roque Roman MD Work Phone: [facility] Comment on above: Encounter for other preprocedural examination (Primary Dx); Pre-operative cardiovascular examination; Pre-transplant evaluation for ESRD (end stage renal disease) Start: 11-09-2023 End: 11-09-2023 Patient encounter status Roque Roman MD Work Phone: [facility] Start: 11-08-2023 End: 11-08-2023 Telephone encounter [facility] Work Phone: [facility] Start: 11-05-2023 End: 11-05-2023 Telephone encounter Kenny Orozco RN [facility] Comment on above: ABO Verification Start: 11-05-2023 End: 11-05-2023 ambulatory [facility] Start: 11-03-2023 End: 11-03-2023 ambulatory [facility] Work Phone: Hematology/Oncology Comment on above: Anemia in chronic ki dney disease, on chronic dialysis (HCC) (Primary Dx) Start: 11-02-2023 End: 11-02-2023 ambulatory [facility] Start: 11-01-2023 End: 11-01-2023 Telephone encounter Kenny Orozco RN [facility] Comment on above: Approval Notice Start: 10-29-2023 End: 10-29-2023 ambulatory JEFFREY T DEFRANCE [facility] Start: 10-27-2023 End: 10-27-2023 ambulatory [facility] Work Phone: Hematology/Oncology Comment on above: Anemia in chronic ki dney disease, on chronic dialysis (HCC) (Primary Dx) Start: 10-20-2023 End: 10-20-2023 ambulatory [facility] [facility] Work Phone: Hematology/Oncology Comment on above: Anemia in chronic ki dney disease, on chronic dialysis (HCC) (Primary Dx) Start: 10-19-2023 Telephone encounter [facility] Comment on above: Patient Update Start: 10-18-2023 Encounter for other preprocedural examination JEFFREY DEL CID [facility] Start: 10-18-2023 End: 10-18-2023 ambulatory JEFFREY DEL CID Facility:[facility] Start: 10-18-2023 End: 10-18-[address] [facility] Start: 10-18-2023 End: 10-18-2023 Subsequent hospital visit by physician Ct 2 Main Qb (I-Stat) Radiology Comment on above: Chronic renal failur e, unspecified CKD stage [N18.9] Start: 10-18-2023 End: 10-18-2023 Patient encounter procedure [facility] Work Phone: [facility] Comment on above: TIA (transient ische arturo attack) (Primary Dx); ESRD on dialysis (HCC); 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); Pre-transplant evaluation for ESRD (end stage renal disease) Pre-transplant evalu ation for ESRD (end stage renal disease) (Primary Dx); Pre-transplant evaluation for kidney transplant; 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 with renal involvement (HCC); Localization-related (focal) (partial) symptomatic epilepsy and epileptic syndromes with complex partial seizures, not intractable, without status epilepticus (HCC) Pre-transplant evalu ation for end stage renal disease (Primary Dx) Pre-transplant evalu ation for ESRD (end stage renal disease) (Primary Dx) Arrived Start: 10-18-2023 End: 10-18-2023 Patient encounter status [facility] Work Phone: [facility] Start: 10-18-2023 Encounter for other preprocedural examination JEFFREY DEL CID [facility] Start: 10-18-2023 End: 10-18-2023 ambulatory JEFFREY DEL CID Facility:[facility] Start: 10-18-2023 End: 10-18-2023 ambulatory ESTELA LUGO Facility:[facility] Start: 10-14-2023 End: 10-14-2023 Patient encounter procedure Joanen Overton SUPERVISOR PROCESS TESTING.LIGHTING SPECIALIST Work Phone: [facility] Comment on above: History of stroke (P rimary Dx); TIA (transient ischemic attack) Start: 10-14-2023 End: 10-14-2023 ambulatory S[facility]F [facility] Comment on above: Pre-transplant evalu ation for ESRD (end stage renal disease) (Primary Dx) Start: 10-14-2023 End: 10-14-2023 Patient encounter status Pre Education Work Phone: [facility] Start: 10-14-2023 End: 10-14-2023 Telemedicine consultation with patient Pre Tx Group Education Work Phone: [facility] Start: 10-13-2023 End: 10-13-2023 ambulatory [facility] [facility] Work Phone: Hematology/Oncology Comment on above: Anemia in chronic ki dney disease, on chronic dialysis (HCC) (Primary Dx) Start: 10-12-2023 Telephone encounter Kenny Orozco RN [facility] Comment on above: General Questions Start: 10-11-2023 Patient encounter status Christiano Liu PA-C Work Phone: [facility] Start: 10-11-2023 Telephone encounter Kenny Orozco RN [facility] Comment on above: Patient Update Chronic renal failur e, unspecified CKD stage (Primary Dx); Pre-transplant evaluation for end stage renal disease Start: 10-05-2023 ambulatory Lauren Rodriguez MD Work Phone: [facility] Comment on above: Stroke again Start: 10-05-2023 Telephone encounter Kenny Orozco RN [facility] Comment on above: Patient Update Start: 10-05-2023 End: 10-06-2023 Emergency department patient visit [facility] Start: 10-04-2023 End: 10-06-2023 Emergency department patient visit [facility] Start: 09-30-2023 Chart abstracting Janae Dumont RN Work Phone: [facility] Comment on above: Other (Dialysis Cent er Status Update) Start: 09-29-2023 End: 09-29-2023 ambulatory [facility] Work Phone: Hematology/Oncology Comment on above: Anemia in chronic ki dney disease, on chronic dialysis (HCC) (Primary Dx) Start: 09-24-2023 Chart abstracting Daria wilcox formerly [facility] Work Phone: [facility] Start: 09-24-2023 Patient encounter status Laith darius Nettles formerly [facility] Work Phone: [facility] Work Phone: Start: 09-22-2023 End: 09-22-2023 ambulatory [facility] Work Phone: Hematology/Oncology Comment on above: Anemia in chronic ki dney disease, on chronic dialysis (HCC) (Primary Dx) Start: 09-15-2023 End: 09-15-2023 ambulatory Lauren Rodriguez MD Work Phone: [facility] Comment on above: Medication issues Start: 09-14-2023 End: 09-14-2023 ambulatory [facility] Start: 09-14-2023 Encounter for genera l adult medical examination without abnormal findings [facility] Start: 09-08-2023 End: 09-08-2023 ambulatory [facility] Work Phone: Hematology/Oncology Comment on above: Anemia in chronic ki dney disease, on chronic dialysis (HCC) (Primary Dx) Start: 09-02-2023 Telephone encounter Kenny Orozco RN [facility] Start: 09-01-2023 End: 09-01-2023 ambulatory [facility] Work Phone: Hematology/Oncology Comment on above: Anemia in chronic ki dney disease, on chronic dialysis (HCC) (Primary Dx) Start: 08-30-2023 Refill Te Avendaño MD Work Phone: Rheumatology Comment on above: Refill Request Start: 08-27-2023 End: 08-27-2023 Emergency department patient visit JEFFRYE BURROWS [facility] Start: 08-25-2023 End: 08-25-2023 ambulatory NATALI CHILD Facility:[facility] Start: 08-18-2023 End: 08-18-2023 Office outpatient visit 15 minutes Natali Child MD Work Phone: Hematology/Oncology Comment on above: Anemia in chronic ki dney disease, on chronic dialysis (HCC) (Primary Dx); 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 with renal involvement (HCC) Start: 08-18-2023 End: 09-29-2023 ambulatory [facility] Work Phone: Hematology/Oncology Comment on above: Anemia in chronic ki dney disease, on chronic dialysis (HCC) (Primary Dx) Start: 08-11-2023 End: 08-11-2023 ambulatory [facility] Work Phone: Hematology/Oncology Comment on above: Anemia in chronic ki dney disease, on chronic dialysis (HCC) (Primary Dx) Start: 08-04-2023 End: 08-04-2023 ambulatory [facility] Work Phone: Hematology/Oncology Comment on above: Anemia in chronic ki dney disease, on chronic dialysis (HCC) (Primary Dx) Start: 07-27-2023 End: 07-27-2023 ambulatory [facility] [facility] Work Phone: Hematology/Oncology Comment on above: Anemia in chronic ki dney disease, on chronic dialysis (HCC) (Primary Dx) Start: 07-21-2023 End: 07-21-2023 ambulatory [facility] Work Phone: Hematology/Oncology Comment on above: Anemia in chronic ki dney disease, on chronic dialysis (HCC) (Primary Dx) Start: 07-14-2023 End: 07-14-2023 ambulatory [facility] Work Phone: Hematology/Oncology Comment on above: Anemia in chronic ki dney disease, on chronic dialysis (HCC) (Primary Dx) Start: 07-13-2023 End: 07-13-2023 ambulatory Te Avendaño MD Work Phone: Rheumatology Comment on above: 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); Chronic sinusitis, unspecified location; High risk medication use Start: 07-13-2023 End: 07-13-2023 Telemedicine consultation with patient Te Avendaño MD Work Phone: Rheumatology Start: 07-07-2023 End: 07-07-2023 Office outpatient visit 15 minutes Natali Child MD Work Phone: Hematology/Oncology Comment on above: Anemia in chronic ki dney disease, on chronic dialysis (HCC) (Primary Dx); 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 with renal involvement (HCC) Start: 07-07-2023 End: 07-09-2023 ambulatory JEFFREY DEL CID Facility:[facility] Start: 07-01-2023 Refill Charity Thomas Work Phone: Neurology Comment on above: Refill Request Start: 06-30-2023 End: 06-30-2023 ambulatory [facility] Work Phone: Hematology/Oncology Comment on above: Anemia in chronic ki dney disease, on chronic dialysis (HCC) (Primary Dx) Start: 06-23-2023 End: 06-23-2023 ambulatory [facility] Work Phone: Hematology/Oncology Comment on above: Anemia in chronic ki dney disease, on chronic dialysis (HCC) (Primary Dx) Start: 06-16-2023 End: 06-16-2023 ambulatory [facility] Work Phone: Hematology/Oncology Comment on above: Anemia in chronic ki dney disease, on chronic dialysis (HCC) (Primary Dx) Start: 06-09-2023 End: 06-09-2023 ambulatory [facility] Facility:[facility] Start: 06-07-2023 End: 06-07-2023 ambulatory Charity Grissom PA-C Work Phone: Neurology Comment on above: Localization-related (focal) (partial) symptomatic epilepsy and epileptic syndromes with complex partial seizures, not intractable, without status epilepticus (HCC) (Primary Dx) Start: 06-07-2023 End: 06-07-2023 Telemedicine consultation with patient Charity Grissom PA-C Work Phone: [facility] Start: 06-02-2023 End: 06-02-2023 ambulatory [facility] Work Phone: Hematology/Oncology Comment on above: Anemia in chronic ki dney disease, on chronic dialysis (HCC) (Primary Dx) Start: 05-28-2023 Refill Ryder Sykes APRN.LIGHTING SPECIALIST Work Phone: Neurology Comment on above: Refill Request Medication Authoriza tion (Lamotrigine ER) Start: 05-27-2023 End: 05-27-2023 ambulatory [facility] Facility:[facility] Start: 05-27-2023 End: 05-27-2023 Patient encounter procedure Joanne Overton APRN.LIGHTING SPECIALIST Work Phone: Cerebrovascular Center Comment on above: Cryptogenic stroke ( HCC) (Primary Dx) Start: 05-26-2023 End: 05-26-2023 Patient encounter procedure Argentina Maradiaga APRN.LIGHTING SPECIALIST Work Phone: [facility] Start: 05-26-2023 End: 05-26-2023 ambulatory [facility] Work Phone: Hematology/Oncology Comment on above: Anemia in chronic ki dney disease, on chronic dialysis (HCC) (Primary Dx) Start: 05-24-2023 Chart abstracting Willian Bahena RN Transplant Center Comment on above: Dialysis status upda te Start: 05-18-2023 End: 05-18-2023 ambulatory JEFFREY DEL CID Facility:[facility] Start: 05-05-2023 End: 05-05-2023 ambulatory [facility] Work Phone: Hematology/Oncology Comment on above: Anemia in chronic ki dney disease, on chronic dialysis (HCC) (Primary Dx) Start: 05-03-2023 Chart abstracting Kenny Orozco RN Transplant Center Comment on above: Informed Consent (Ev aluation informed consent addendum ) Start: 04-28-2023 End: 04-28-2023 ambulatory [facility] Work Phone: Hematology/Oncology Comment on above: Anemia in chronic ki dney disease, on chronic dialysis (HCC) (Primary Dx) Start: 04-28-2023 End: 04-28-2023 Patient encounter procedure Suyapa Louise MD Work Phone: Otolaryngology Comment on above: PND (post-nasal drip ) (Primary Dx); Other rhinitis Start: 04-21-2023 End: 04-21-2023 ambulatory [facility] Work Phone: Hematology/Oncology Comment on above: Anemia in chronic ki dney disease, on chronic dialysis (HCC) (Primary Dx) Start: 04-14-2023 End: 04-14-2023 Office outpatient visit 15 minutes Natali Child MD Work Phone: Hematology/Oncology Comment on above: Anemia in chronic ki dney disease, on chronic dialysis (HCC) (Primary Dx); 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 with renal involvement (HCC); Anemia, unspecified type Start: 04-14-2023 End: 04-14-2023 ambulatory JEFFREY DEL CID Facility:[facility] Start: 04-13-2023 End: 04-13-2023 ambulatory JEFFREY DEL CID Facility:[facility] Start: 04-07-2023 End: 04-07-2023 ambulatory JEFFREY DEL CID Facility:[facility] Start: 04-06-2023 End: 04-06-2023 ambulatory NIECY VASQUEZ [facility] Start: 04-06-2023 End: 04-07-2023 ambulatory NIECYKAY VASQUEZ [facility] Start: 04-01-2023 End: 04-01-2023 ambulatory JEFFREY DEL CID Facility:[facility] Start: 03-24-2023 End: 03-24-2023 ambulatory JEFFREY LUGO DEL CID Facility:[facility] Start: 03-17-2023 End: 03-18-2023 ambulatory JEFFREY LUGO DEL CID Facility:[facility] Start: 03-14-2023 ambulatory JEFFREY BRITTNEY SIN Facility:[facility] Start: 03-14-2023 End: 03-14-2023 Subsequent hospital visit by physician Gilma [facility] ([facility]) Work Phone: [facility] Radiology CT Scan Comment on above: Fever, unspecified f ever cause [R50.9] Start: 03-11-2023 End: 03-11-2023 ambulatory JEFFREY DEL CID Facility:[facility] Start: 03-11-2023 Encounter for other preprocedural examination JEFFREY DEL CID [facility] Start: 03-10-2023 End: 03-10-2023 ambulatory JEFFERY LUGO DEL CID Facility:[facility] Start: 03-03-2023 End: 03-03-2023 ambulatory [facility] Work Phone: Hematology/Oncology Comment on above: Anemia in chronic ki dney disease, on chronic dialysis (HCC) (Primary Dx) Start: 03-03-2023 End: 03-03-2023 Office outpatient visit 25 minutes Florence Barragan MD Work Phone: Gastroenterology Comment on above: Nausea (Primary Dx) Start: 02-24-2023 End: 02-24-2023 ambulatory JEFFREY DEL CID Facility:[facility] Start: 02-17-2023 End: 02-17-2023 ambulatory [facility] Work Phone: Hematology/Oncology Comment on above: Anemia in chronic ki dney disease, on chronic dialysis (HCC) (Primary Dx) Start: 12-05-2023 Orders Only Nati A Wie ericka PT Work Phone: Physical Therapy Comment on above: Muscle spasm (Primar y Dx) Start: 02-11-2023 End: 02-11-2023 ambulatory Nati A Wiebusch PT Work Phone: [place] [facility] Start: 02-11-2023 End: 02-11-2023 Manual pelvic examination Nati A Wiebusch PT Work Phone: Physical Therapy Comment on above: Muscle weakness (Gaby darin Dx); High-tone pelvic floor dysfunction in female Start: 02-03-2023 End: 02-03-2023 Office outpatient visit 25 minutes Natali Child MD Work Phone: Hematology/Oncology Comment on above: Anemia in chronic ki dney disease, on chronic dialysis (HCC) (Primary Dx) Start: 02-03-2023 End: 02-03-2023 ambulatory [facility] Work Phone: Hematology/Oncology Comment on above: Anemia in chronic ki dney disease, on chronic dialysis (HCC) (Primary Dx) Start: 01-29-2023 Patient encounter procedure [facility] Provider [facility] Department Start: 01-29-2023 End: 01-29-2023 ambulatory Jeffrey Burrows Facility:[facility] Start: 01-29-2023 End: 01-29-2023 ambulatory MD Jeffrey Burrows Work Phone: [facility] Work Phone: Start: 01-29-2023 End: 01-29-2023 Discharged Recurring MD Jeffrey Burrows Work Phone: [facility] - [facility] Work Phone: Start: 01-27-2023 End: 01-27-2023 ambulatory [facility] Work Phone: Hematology/Oncology Comment on above: Anemia in chronic ki dney disease, on chronic dialysis (HCC) (Primary Dx) Start: 01-26-2023 Telephone encounter Natali hay MD Work Phone: Hematology/Oncology Comment on above: Lab Orders Start: 01-20-2023 End: 01-20-2023 ambulatory [facility] Work Phone: Hematology/Oncology Comment on above: Anemia in chronic ki dney disease, on chronic dialysis (HCC) (Primary Dx) Start: 01-13-2023 End: 01-13-2023 ambulatory JEFFREY BRITTNEY DEL CID Facility:[facility] Start: 01-12-2023 End: 01-12-2023 ambulatory FERCHO JOHSNON Facility:[facility] Start: 01-12-2023 End: 01-12-2023 Patient encounter procedure Fercho Johnson MD Work Phone: Urology Comment on above: Vaginal pain (Primar y Dx); RUQ pain; High-tone pelvic floor dysfunction in female Start: 01-06-2023 Telephone encounter Te echavarria MD Work Phone: Rheumatology Comment on above: Follow Up Lab Orders Start: 01-05-2023 Telephone encounter Suyapa Louise MD Work Phone: Otolaryngology Comment on above: Electronic Communica tion ([facility] asking for office visit note from 12/03/2022 to [phone]) Start: 01-04-2023 End: 01-04-2023 ambulatory [facility] Facility:[facility] Start: 01-01-2023 ambulatory Cathy Neil RN Cardi ology Comment on above: Patient Education (/ ) Start: 12-31-2022 End: 12-31-2022 Patient encounter procedure Daniel Toro MD Work Phone: Cardiology Comment on above: Cryptogenic stroke ( HCC) [I63.9] (Primary Dx); Cryptogenic stroke (HCC) Start: 12-31-2022 End: 12-31-2022 ambulatory JEFFREY BRITTNEY DEL CID Facility:[facility] Start: 12-30-2022 End: 12-30-2022 ambulatory AKIL GUTIERREZ Facility:[facility] Start: 12-30-2022 End: 12-30-2022 Patient encounter procedure [facility] Work Phone: Transplant Center Comment on above: Pre-transplant evalu ation for ESRD (end stage renal disease) (Primary Dx) Pre-transplant evalu ation for kidney transplant (Primary Dx) Start: 12-30-2022 End: 12-30-2022 Patient encounter status [facility] Work Phone: [facility] Start: 12-30-2022 End: 12-30-2022 Patient encounter status [facility] Work Phone: [facility] Start: 12-30-2022 End: 12-30-2022 ambulatory MARYAKOJO BRENDA Facility:[facility] Start: 12-30-2022 End: 12-30-2022 Patient encounter procedure [facility] Work Phone: Transplant Center Comment on above: Pre-transplant evalu ation for ESRD (end stage renal disease) (Primary Dx) Start: 12-25-2022 Patient encounter procedure [facility] Provider [facility] Department Start: 12-25-2022 End: 12-25-2022 ambulatory Natali Child Facility:[facility] Start: 12-25-2022 End: 12-25-2022 ambulatory MD Jeffrey Burrows Work Phone: [facility] Work Phone: Start: 12-25-2022 End: 12-25-2022 Discharged Recurring MD Jeffrey Burrows Work Phone: [facility] Work Phone: Start: 12-24-2022 End: 12-24-2022 Office outpatient visit 25 minutes Natali Child MD Work Phone: Hematology/Oncology Comment on above: 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); Anemia, unspecified type Start: 12-24-2022 End: 12-24-2022 ambulatory Philip Escalante MD Work Phone: Gastroenterology Comment on above: Testing Start: 12-24-2022 Telephone encounter Natali hay MD Work Phone: [facility] Comment on above: Transfusion Appointment Start: 12-22-2022 End: 12-22-2022 ambulatory [facility] Facility:[facility] Start: 12-22-2022 End: 12-22-2022 Subsequent hospital visit by physician Deidra Reed MD Work Phone: Gastroenterology Comment on above: Nausea and vomiting, unspecified vomiting type [R11.2] Start: 12-21-2022 Telephone encounter [facility] Comment on above: Appointment Start: 12-17-2022 Orders Only Daniel Lantigua Work Phone: Cardiology Comment on above: Cerebrovascular acci dent (CVA), unspecified mechanism (HCC) (Primary Dx) Start: 12-11-2022 End: 12-11-2022 ambulatory [facility] Facility:[facility] Start: 12-03-2022 End: 12-03-2022 ambulatory [facility] Facility:[facility] Start: 12-03-2022 End: 12-03-2022 Patient encounter procedure Suyapa Louise MD Work Phone: Otolaryngology Comment on above: Chronic cough (Prima ry Dx); LPRD (laryngopharyngeal reflux disease); Lingual tonsil hypertrophy; Bleeding nose Start: 12-02-2022 Telephone encounter Meliton Mosqueda MD Work Phone: Cardiology Comment on above: Schedule Surgery ([place] R) Start: 11-26-2022 End: 11-26-2022 ambulatory Philip Escalante MD Work Phone: Gastroenterology Comment on above: Scope Cryptogenic stroke ( HCC) (Primary Dx); Mixed hyperlipidemia; 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); Nonintractable epilepsy without status epilepticus, unspecified epilepsy type (HCC) Start: 11-26-2022 End: 11-26-2022 Telemedicine consultation with patient Meliton Mosqueda MD Work Phone: [facility] Start: 11-24-2022 End: 11-24-2022 ambulatory [facility] Facility:[facility] Start: 11-24-2022 End: 11-24-2022 Patient encounter procedure Te Avendaño MD Work Phone: Rheumatology Comment on above: 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); Fever, unspecified fever cause; Cough, unspecified type; Macrocytic anemia Start: 11-18-2022 ambulatory Lauren Rodriguez MD Work Phone: Cerebrovascular Center Comment on above: GI needs Start: 11-13-2022 End: 11-13-2022 ambulatory JEFFREY DEL CID Facility:[facility] Start: 11-13-2022 End: 11-13-2022 Patient encounter procedure Philip Escalante MD Work Phone: Gastroenterology Comment on above: Nausea and vomiting, unspecified vomiting type (Primary Dx) Start: 11-06-2022 Telephone encounter Rich griffin MD Work Phone: Neurology Comment on above: Medication Authoriza tion (Lamotrigine ER) Start: 11-04-2022 ambulatory Rich Lantigua Work Phone: Neurology Comment on above: Lamotrigine Start: 11-03-2022 End: 11-03-2022 ambulatory Rich Maldonado MD Work Phone: Neurology Comment on above: Localization-related (focal) (partial) symptomatic epilepsy and epileptic syndromes with complex partial seizures, not intractable, without status epilepticus (HCC) (Primary Dx) Start: 11-03-2022 End: 11-03-2022 Telemedicine consultation with patient Rich aMldonado MD Work Phone: [facility] Start: 10-01-2022 End: 10-01-2022 Patient encounter procedure Lauren Rodriguez MD Work Phone: Cerebrovascular Center Comment on above: Cerebrovascular acci dent (CVA), unspecified mechanism (HCC) (Primary Dx); Seizure (HCC) Start: 09-30-2022 Telephone encounter Lauren Rodriguez MD Work Phone: Cerebrovascular Center Comment on above: Request Outside [facility] Records (Request Imaging from [facility], [facility], and [facility].) Start: 09-14-2022 Telephone encounter Kenny Orozco RN Transplant Center Comment on above: Patient Update Start: 09-03-2022 End: 09-03-2022 Emergency department patient visit Agnes Martinez Facility:[facility] Start: 09-03-2022 End: 09-03-2022 Emergency department patient visit MD Jeffrey Burrows Work Phone: [facility]-Emergency Room Work Phone: Start: 08-26-2022 End: 08-26-2022 Patient encounter procedure Lab Abhijit Spear Mc Work Phone: [facility] Comment on above: 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) Start: 07-27-2022 End: 07-27-2022 ambulatory Te Avendaño MD Work Phone: Rheumatology Comment on above: 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); Chronic sinusitis, unspecified location; High risk medication use Start: 07-27-2022 End: 07-27-2022 Telemedicine consultation with patient Te Avendaño MD Work Phone: [facility] Start: 07-24-2022 Telephone encounter Natali hay MD Work Phone: Hematology/Oncology Comment on above: Lab Orders Start: 06-11-2022 Telephone encounter Kenny Orozco RN Transplant Center Comment on above: Patient Update Start: 05-27-2022 End: 05-31-2022 Evaluation and management of inpatient DR JEFFREY BURROWS Facility: Start: 05-11-2022 End: 05-11-2022 Office outpatient visit 25 minutes Natali Child MD Work Phone: Hematology/Oncology Comment on above: Leukocytosis, unspec ified type (Primary Dx); 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 with renal involvement (HCC) Start: 04-27-2022 End: 04-27-2022 Office outpatient new 60 minutes Natali Child MD Work Phone: Hematology/Oncology Comment on above: 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 Start: 03-11-2022 E-mail encounter fro m caregiver Brenna Girard SUPERVISOR PROCESS TESTING.LIGHTING SPECIALIST Work Phone: [facility] Start: 03-11-2022 Follow-up encounter Brenna ramsey APRN.LIGHTING SPECIALIST Work Phone: Gastroenterology Comment on above: Follow up Start: 03-11-2022 End: 03-11-2022 Patient encounter procedure Brenna Girard SUPERVISOR PROCESS TESTING.LIGHTING SPECIALIST Work Phone: Gastroenterology Comment on above: RUQ pain [R10.11 (IC D-10-CM)] (Primary Dx) Start: 02-20-2022 Telephone encounter Kenny [facility] Comment on above: Approval notice Start: 02-11-2022 End: 02-11-2022 ambulatory [facility]m [facility] Pulmonary Medicine Comment on above: Spirometry Start: 02-11-2022 End: 02-11-2022 Patient encounter procedure Pulm [facility]ct [facility] [address] [facility] Comment on above: Pre-transplant evalu ation for kidney transplant (Primary Dx); 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); End stage renal disease (HCC); Peritoneal dialysis status (HCC) Start: 02-11-2022 End: 02-11-2022 Patient encounter status Sue Montenegro DO Work Phone: Pulmonary Medicine Start: 01-23-2022 Orders Only Racquel Burgess MD Work Phone: Transplant Center Comment on above: Abnormal chest CT (P rimary Dx); Pre-transplant evaluation for end stage renal disease Start: 01-23-2022 Patient encounter status Racquel Burgess MD Work Phone: Transplant Center Start: 01-08-2022 Chart abstracting Rosaura Rosado CELERY PACKER Work Phone: Transplant Center Start: 01-05-2022 Orders Only Te Avendaño MD Work Phone: Rheumatology Start: 01-02-2022 End: 01-02-2022 Subsequent hospital visit by physician [facility] Work Phone: Radiology Comment on above: SOB (shortness of br eath) [R06.02] Start: 12-25-2021 End: 12-25-2021 Subsequent hospital visit by physician Scan [facility] Rej Work Phone: Nuclear Medicine Comment on above: Encounter for other preprocedural examination [Z01.818] Start: 12-25-2021 End: 12-25-2021 Patient encounter status Injection Rej Work Phone: [facility] Start: 12-25-2021 End: 12-25-2021 Subsequent hospital visit by physician Injection [facility] Rej Work Phone: Nuclear Medicine Comment on above: Encounter for other preprocedural examination [Z01.818] Start: 12-11-2021 Encounter for other preprocedural examination JEFFREY DEL CID [facility] Start: 12-11-2021 End: 12-11-2021 ambulatory Nadine Bronson MD Work Phone: Gastroenterology Comment on above: Pre-transplant evalu ation for kidney transplant Start: 12-11-2021 End: 12-11-2021 Telemedicine consultation with patient Nadine Bronson MD Work Phone: 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; Chronic sinusitis, unspecified location; Vitamin D deficiency Start: 11-04-2021 Orders Only Racquel Burgess MD Work Phone: Transplant Center Comment on above: Pre-transplant evalu ation for end stage renal disease (Primary Dx); 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 with renal involvement (HCC) Encounter for examin ation for insurance purposes (Primary Dx); Encounter for screening for cardiovascular disorders; Awaiting organ transplant; Pre-transplant evaluation for end stage renal disease; Pre-operative cardiovascular examination Start: 11-04-2021 Patient encounter status Racquel Burgess MD Work Phone: Transplant Center Start: 11-03-2021 End: 11-03-2021 Patient encounter status [facility] Work Phone: Transplant Center Start: 11-03-2021 End: 11-03-2021 Patient encounter procedure [facility] Work Phone: Transplant Center Comment on above: Pre-transplant evalu ation for ESRD (end stage renal disease) (Primary Dx) ESRD on dialysis (HC C) (Primary Dx); Pre-transplant evaluation for ESRD (end stage renal disease) Start: 10-23-2021 Telephone encounter Kenny Orozco RN Transplant Center Comment on above: Appointment Start: 10-13-2021 End: 10-13-[address] Transplant Center Comment on above: Pre-transplant evalu ation for kidney transplant (Primary Dx) Obesity, Class I, BM I 30-34.9 (Primary Dx); Awaiting organ transplant; Dietary counseling and surveillance Start: 10-13-2021 End: 10-13-2021 Patient encounter status Pre Education Work Phone: Transplant Center Start: 10-13-2021 End: 10-13-2021 Telemedicine consultation with patient Pre Tx Group Education Work Phone: [facility] Start: 10-10-2021 End: 10-10-2021 ambulatory [facility] Therapeutic Bed 1 Work Phone: COVID THERAPEUTIC Comment on above: COVID-19; 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 with renal involvement (HCC) Start: 10-09-2021 Telephone encounter Fina BAUTISTA [facility] Comment on above: Appointment Start: 10-08-2021 ambulatory Te Avendaño MD Work Phone: Rheumatology Comment on above: Covid Start: 10-06-2021 Telephone encounter Jia Faye [facility] Comment on above: Appointment Start: 10-01-2021 Chart abstracting Jessica Medina [facility] Comment on above: Pre-transplant evalu ation for kidney transplant (Primary Dx) Pre-transplant evalu ation for kidney transplant (Primary Dx); Chronic renal failure, stage 5 (HCC) Start: 10-01-2021 Patient encounter status Margarita Jane MD Work Phone: Transplant Center Start: 09-23-2021 Telephone encounter Lise Rviera (Pss) [facility] Transplant Center Comment on above: Referral - Kidney Tx p Start: 09-08-2021 End: 09-08-2021 Patient encounter procedure Te Avendaño MD Work Phone: Rheumatology Comment on above: 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); SOB (shortness of breath); 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; Chronic sinusitis, unspecified location; Vitamin D deficiency Start: 09-01-2021 End: 09-01-2021 Patient encounter procedure Fellow [place] [facility] Work Phone: General Surgery Comment on above: 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 Facility: Start: 08-21-2021 End: 08-21-2021 Departed Referred MD Robert Patel Work Phone: [facility] [facility] [place] [facility] [place] Start: 08-19-2021 End: 08-20-2021 Patient encounter procedure MD Robert Patel Work Phone: [facility] Start: 08-15-2021 Telephone encounter Te echavarria MD Work Phone: Rheumatology Comment on above: Orders Start: 08-07-2021 End: 08-07-2021 Subsequent hospital visit by physician Bone Density [facility] Radiology Comment on above: 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 us e of systemic steroids [Z79.52] Start: 08-06-2021 End: 08-06-2021 Orders Only Alvino Paredes MD Work Phone: Gastroenterology Comment on above: Choledocholithiasis (Primary Dx) Hoarseness (Primary Dx); 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 with renal involvement (HCC); 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 Start: 07-21-2021 Orders Only Aaron sahni MD Work Phone: General Surgery Comment on above: Infection in abdomen (HCC) CT Scan Start: 07-18-2021 End: 07-18-2021 Subsequent hospital visit by physician Fani [facility] [place] Radiology Comment on above: Cough [R05.9] Start: 07-17-2021 End: 07-17-2021 Subsequent hospital visit by physician Us Jaffe A21 5 Work Phone: Radiology Comment on above: S/P cholecystectomy [Z90.49] Start: 07-08-2021 Telephone encounter Rosaura Kerr MD Work Phone: Gastroenterology Comment on above: Results Start: 07-08-2021 End: 07-08-2021 ambulatory Te Avendaño MD Work Phone: Rheumatology Comment on above: 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 Start: 06-28-2021 Orders Only Shellie Ewing ister SUPERVISOR PROCESS TESTING.LIGHTING SPECIALIST Work Phone: Gastroenterology Comment on above: Encounter for remova l of biliary stent (Primary Dx) Start: 06-24-2021 Telephone encounter Rosaura Kerr MD Work Phone: Gastroenterology Comment on above: Results Start: 06-20-2021 End: 06-20-2021 Nursing evaluation of patient and report Nurse Kana Main Work Phone: Rheumatology Comment on above: Encounter for prophy lactic measures, unspecified Start: 06-06-2021 End: 06-06-2021 ambulatory Kana Chair 3 Raven Work Phone: Infusion Comment on above: 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) Start: 05-09-2021 Telephone encounter Armida haynes MD Work Phone: Rheumatology Comment on above: Erroneous encounter- disregard Start: 04-28-2021 AUDIT Referring Prov ider Unknown [facility] SJW 170 Work Phone: Start: 04-12-2021 End: 04-21-2021 Evaluation and management of inpatient Gary Masters [place] [id number] 01 Procedures Date Procedure Procedure Detail Performing Clinician Start: 10-18-2023 Ct abdomen & pelvis w/o contrast material Cathy Liu PA-C Work Phone: Start: 03-11-2023 Echocardiography JEFFREY DEL CID Start: 01-28-2023 Antibody screen Agnes Michelle Comment on above: Order Comment: Comment pt does not have green band, need to re t/c Result Comment: PERF ORMED BY: [facility] [address] [facility] [place] [address] PATHOLOGIST ENTRY TABLE OPERATOR JESSE GARZA M.D. Start: 12-25-2022 Antibody screen Agnes Michelle Comment on above: Order Comment: Transfuse now? Y Number of units to transfuse now? 2 Result Comment: PERF ORMED BY: [facility] [address] [place] [address] PATHOLOGIST ENTRY TABLE OPERATOR JESSE GARZA M.D. Start: 12-22-2022 Esophagogastroduodenoscopy transoral diagnostic Philip Escalante MD Work Phone: Start: 08-26-2022 Blood count complete auto&auto difrntl wbc Te Avendaño MD Work Phone: Start: 08-26-2022 C-reactive protein Te Avendaño MD Work Phone: Start: 07-08-2022 Mammography Lauren Rodriguez MD Work Phone: Start: 05-28-2022 Insertion of Infusion Device into Left Cephalic Vein, Percutaneous Approach DR MAYE FINNEGAN . Start: 02-11-2022 Brncdilat rspse spmtry pre&post-brncdilat admn Sue Montenegro DO Work Phone: Start: 01-02-2022 Ct thorax w/o contrast material Te Avendaño MD Work Phone: Start: 12-25-2021 Myocardial spect multiple studies Ni Padilla SUPERVISOR PROCESS TESTING.LIGHTING SPECIALIST Work Phone: Start: 10-08-20212018 [facility] Provider Start: 08-28-2021 Laparoscopic insertion of peritoneal dialysis catheter MD Robert Patel Work Phone: Start: 08-07-2021 Dxa bone density study 1/> sites axial skel Te Avendaño MD Work Phone: Start: 08-06-2021 Ercp dx collection specimen brushing/washing Shellie Garcia SUPERVISOR PROCESS TESTING.LIGHTING SPECIALIST Work Phone: Start: 08-06-2021 FLUORO ERCP (POC) FOR DDI USE ONLY Alvino Paredes MD Work Phone: Start: 07-18-2021 Radiologic exam chest 2 views Te echavarria MD Work Phone: Start: 07-17-2021 Us abdominal real time w/image limited Rosaura Kerr MD Work Phone: Start: 06-18-2021 2019 [facility] Provider Start: 04-24-2021 Adult depression screening assessment Kana Carbajal Work Phone: Start: 04-19-2021 End: 04-19-2021 EKG impression Hien Huang Start: 04-17-2021 End: 04-17-2021 Release Blood Product-Packed Red Blood Cells Shawn Garrett Start: 04-17-2021 Antibody screen Comment on above: Performed By: #### T+S ####[facility] [id number] [place], [place] [address] [address] Start: 04-17-2021 Release Blood Product-Packed Red Blood Cells Shawn Garrett Start: 2021 End: 2021 EKG impression Gary Feldman Start: 2021 End: 2021 Release Blood Product-Packed Red Blood Cells Stephon Dent Start: 04-14-2021 Release Blood Product-Packed Red Blood Cells Stephon Filipe Start: 04-14-2021 End: 04-14-2021 Release Blood Product-Packed Red Blood Cells Stephon Filipe Start: 04-14-2021 Release Blood Product-Packed Red Blood Cells Stephon Filipe Start: 04-12-2021 Echocardiography Start: 04-12-2021 End: 04-12-2021 Release Blood Product-Packed Red Blood Cells Breana Card Start: 04-12-2021 Echocardiography Referring Provider Unknown Start: 04-12-2021 Release Blood Product-Packed Red Blood Cells Breana Card Start: 04-12-2021 End: 04-12-2021 Release Blood Product-Packed Red Blood Cells Breana Card Start: 04-12-2021 Antibody screen Comment on above: Performed By: #### T+S ####[facility] [address] [id number] [place] [address] Start: 04-12-2021 Release Blood Product-Packed Red Blood Cells Breana Card Start: 04-12-2021 End: 04-12-2021 Arterial Full Panel -Stat Breana Mo on History of cholecystectomy S/P cholecyste ctomy Us 5 Work Phone: History of cholecystectomy S/P cholecyste ctomy Lizz Aguilar PA-C Work Phone: Plan of Treatment Date Care Activity Detail Author Start: 11-09-2024 Complete blood count Hemoglobin/Hematocrit [facility] Start: 11-09-2024 Creatinine measurement Serum Creatinine [facility] Start: 11-02-2024 Complete blood count Hemoglobin/Hematocrit [facility] Start: 10-26-2024 Complete blood count Hemoglobin/Hematocrit [facility] Start: 10-26-2024 Creatinine measurement Serum Creatinine [facility] Start: 10-19-2024 Complete blood count Hemoglobin/Hematocrit [facility] Start: 10-12-2024 Complete blood count Hemoglobin/Hematocrit [facility] Start: 10-12-2024 Creatinine measurement Serum Creatinine [facility] Start: 10-04-2024 Complete blood count Hemoglobin/Hematocrit [facility] Start: 10-04-2024 Creatinine measurement Serum Creatinine [facility] Start: 09-28-2024 Complete blood count Hemoglobin/Hematocrit [facility] Start: 09-21-2024 Complete blood count Hemoglobin/Hematocrit [facility] Start: 09-21-2024 Creatinine measurement Serum Creatinine [facility] Start: 09-07-2024 Complete blood count Hemoglobin/Hematocrit [facility] Start: 09-07-2024 Creatinine measurement Serum Creatinine [facility] Start: 08-31-2024 Complete blood count Hemoglobin/Hematocrit [facility] Start: 08-24-2024 Complete blood count Hemoglobin/Hematocrit [facility] Start: 08-24-2024 Creatinine measurement [facility] Start: 08-17-2024 Complete blood count [facility] Start: 08-10-2024 Complete blood count [facility]oglobin[facility] Start: 08-10-2024 Creatinine measurement Serum Creatinine [facility] Start: 08-03-2024 Complete blood count [facility] Start: 07-26-2024 Complete blood count Hemoglobin/Hematocrit [facility] Start: 07-26-2024 Creatinine measurement Serum Creatinine [facility] Start: 07-20-2024 Complete blood count Hemoglobin/Hematocrit [facility] Start: 07-20-2024 Creatinine measurement Serum Creatinine [facility] Start: 07-13-2024 Complete blood count Hemoglobin/Hematocrit [facility] Start: 07-06-2024 Complete blood count Hemoglobin/Hematocrit [facility] Start: 07-06-2024 Creatinine measurement Serum Creatinine [facility] Start: 06-29-2024 Complete blood count Hemoglobin/Hematocrit [facility] Start: 06-29-2024 Creatinine measurement Serum Creatinine [facility] Start: 06-22-2024 Complete blood count Hemoglobin/Hematocrit [facility] Start: 06-15-2024 Complete blood count [facility] Start: 06-08-2024 Creatinine measurement Serum Creatinine [facility] Start: 06-01-2024 Complete blood count Hemoglobin/Hematocrit [facility] Start: 05-25-2024 Complete blood count [facility] Start: 05-25-2024 Creatinine measurement Serum Creatinine [facility] Start: 05-17-2024 Complete blood count Hemoglobin/Hematocrit [facility] Start: 05-17-2024 Creatinine measurement Serum Creatinine [facility] Start: 05-05-2024 Complete blood count Hemoglobin/Hematocrit [facility] Start: 04-28-2024 Complete blood count Hemoglobin/Hematocrit [facility] Start: 04-28-2024 Creatinine measurement Serum Creatinine [facility] Start: 04-21-2024 Complete blood count Hemoglobin/Hematocrit [facility] Start: 04-19-2024 End: 04-19-2024 Patient encounter procedure 04/19/2024 9:00 AM EST Office Visit [facility] [place] [address] [place] [id number] Teresa Cope MD [address] [place] [address] : Return in about 1 year (around 04/13/2024) for Skin Check. [facility] [place] Comment on above: : Return in about 1 year (around 04/13/19) for Skin Check. Start: 04-14-2024 Complete blood count Hemoglobin/Hematocrit [facility] Start: 04-14-2024 Creatinine measurement Serum Creatinine [facility] Start: 03-10-2024 Complete blood count Hemoglobin/Hematocrit [facility] Start: 03-03-2024 Complete blood count Hemoglobin/Hematocrit [facility] Start: 03-03-2024 Creatinine measurement Serum Creatinine [facility] Start: 02-18-2024 Hemoglobin/Hematocrit Hemoglobin/Hematocrit [facility] Start: 02-04-2024 Hemoglobin/Hematocrit Hemoglobin/Hematocrit [facility] Start: 02-02-2024 End: 02-02-2024 Follow-up encounter Hematology/Oncology Comment on above: 12 week follow up with lab and possible Epo inj Start: 02-02-2024 End: 02-02-2024 Patient encounter procedure 02/02/2024 10:30 AM EST Office Visit [facility] [address] [place] [address] 12 week follow up with lab and possible Epo inj [facility] Comment on above: 12 week follow up with lab and possible Epo inj Start: 01-28-2024 Hemoglobin/Hematocrit Hemoglobin/Hematocrit [facility] Start: 01-28-2024 Serum Creatinine Serum Creatinine [facility] Start: 01-26-2024 End: 01-26-2024 ambulatory 01/26/2024 11:00 AM EST [facility] Hematology/Oncology [address] [place] [address] weekly lab and possible Epo inj Hematology/Oncology Comment on above: weekly lab and possible Epo inj Start: 01-26-2024 End: 01-26-2024 Patient encounter procedure 01/26/2024 10:45 AM EST Office Visit [facility] [address] [place] [address] weekly lab and possible Epo inj [facility] Comment on above: weekly lab and possible Epo inj Start: 01-21-2024 Hemoglobin/Hematocrit Hemoglobin/Hematocrit [facility] Start: 01-19-2024 End: 01-19-2024 ambulatory 01/19/2024 2:45 PM EST Infusion Center Hematology/Oncology [address] [place] [address] weekly lab and possible Epo inj Hematology/Oncology Comment on above: weekly lab and possible Epo inj Start: 01-19-2024 End: 01-19-2024 Patient encounter procedure Rheumatology Comment on above: 4m WG fu per jong weekly lab and possi ble Epo inj Start: 01-14-2024 Hemoglobin/Hematocrit Hemoglobin/Hematocrit [facility] Start: 01-14-2024 Serum Creatinine Serum Creatinine [facility] Start: 01-12-2024 End: 01-12-2024 ambulatory 01/12/2024 10:45 AM EDT Infusion Center Hematology/Oncology [address] [place] [address] weekly lab and possible Epo inj Hematology/Oncology Comment on above: weekly lab and possible Epo inj Start: 01-12-2024 End: 01-12-2024 Patient encounter procedure 01/12/2024 10:30 AM EDT Office Visit [facility] [address] [place] [address] weekly lab and possible Epo inj [facility] Comment on above: weekly lab and possible Epo inj Start: 01-05-2024 End: 01-05-2024 ambulatory 01/05/2024 10:45 AM EDT Infusion Center Hematology/Oncology [address] [place] [address] weekly lab and possible Epo inj Hematology/Oncology Comment on above: weekly lab and possible Epo inj Start: 01-05-2024 End: 01-05-2024 Patient encounter procedure 01/05/2024 10:30 AM EDT Office Visit [facility] [address] [address] weekly lab and possible Epo inj [facility] Comment on above: weekly lab and possible Epo inj Start: 01-04-2024 End: 01-04-2024 Patient encounter procedure 01/04/2024 2:30 PM EDT Appointment Nuclear Medicine [address] [place] [address] Pre-operative cardiovascular examination [Z01.810] Nuclear Medicine Comment on above: Pre-operative cardiovascular examination [Z01.810] Start: 01-04-2024 End: 01-04-2024 Patient encounter procedure 01/04/2024 12:30 PM EDT Appointment Nuclear Medicine [address] [place] [address] Pre-operative cardiovascular examination [Z01.810] Nuclear Medicine Comment on above: Pre-operative cardiovascular examination [Z01.810] Start: 12-31-2023 Hemoglobin/Hematocrit Hemoglobin/Hematocrit [facility] Start: 12-31-2023 Serum Creatinine Serum Creatinine [facility] Start: 12-29-2023 End: 12-29-2023 ambulatory 12/29/2023 11:00 AM EDT Infusion Center Hematology/Oncology [address] [place] [address] weekly lab and possible Epo inj Hematology/Oncology Comment on above: weekly lab and possible Epo inj Start: 12-29-2023 End: 12-29-2023 Patient encounter procedure 12/29/2023 10:45 AM EDT Office Visit [facility] [address] [place] [address] weekly lab and possible Epo inj [facility] Comment on above: weekly lab and possible Epo inj Start: 12-25-2023 Hemoglobin/Hematocrit Hemoglobin/Hematocrit [facility] Start: 12-25-2023 Serum Creatinine Serum Creatinine [facility] Start: 12-22-2023 End: 12-22-2023 Follow-up encounter 12/22/2023 10:45 AM EDT Infusion Center Hematology/Oncology [address] [place] [address] 12 week follow up with lab and possible Epo inj Hematology/Oncology Comment on above: 12 week follow up with lab and possible Epo inj Start: 12-22-2023 End: 12-22-2023 Patient encounter procedure 12/22/2023 10:30 AM EDT Office Visit [facility] [address] [facility] [place] [address] 12 week follow up with lab and possible Epo inj [facility] Comment on above: 12 week follow up with lab and possible Epo inj Start: 12-15-2023 End: 12-15-2023 ambulatory 12/15/2023 10:45 AM EDT Infusion Center Hematology/Oncology [address] [place] [address] weekly lab and possible Epo inj Hematology/Oncology Comment on above: weekly lab and possible Epo inj Start: 12-15-2023 End: 12-15-2023 Patient encounter procedure 12/15/2023 10:30 AM EDT Office Visit [facility] [address] [place] [address] weekly lab and possible Epo inj [facility] Comment on above: weekly lab and possible Epo inj Start: 12-12-2023 Hemoglobin/Hematocrit Hemoglobin/Hematocrit [facility] Start: 12-08-2023 End: 12-08-2023 [facility] 12/08/2023 2:30 PM EDT [facility] Neurology [address] [place] [address] Ryder Sykes APRN.LIGHTING SPECIALIST [address] [facility] [address] [place] [address] Medicine refill Neurology Comment on above: Medicine refill Start: 12-08-2023 End: 12-08-2023 ambulatory 12/08/2023 10:45 AM EDT Infusion Center Hematology/Oncology [address] [place] [address] weekly lab and possible Epo inj Hematology/Oncology Comment on above: weekly lab and possible Epo inj Start: 12-08-2023 End: 12-08-2023 Patient encounter procedure 12/08/2023 10:30 AM EDT Office Visit [facility] [address] [place] [address] weekly lab and possible Epo inj [facility] Comment on above: weekly lab and possible Epo inj Start: 12-04-2023 Hemoglobin/Hematocrit Hemoglobin/Hematocrit [facility] Start: 12-04-2023 Serum Creatinine Serum Creatinine [facility] Start: 12-01-2023 End: 12-01-2023 ambulatory 12/01/2023 10:45 AM EDT Infusion Center Hematology/Oncology [address] [facility] [place] [address] weekly lab and possible Epo inj Hematology/Oncology Comment on above: weekly lab and possible Epo inj Start: 12-01-2023 End: 12-01-2023 Patient encounter procedure 12/01/2023 10:30 AM EDT Office Visit [facility] [address] [facility] [place] [address] weekly lab and possible Epo inj [facility] Comment on above: weekly lab and possible Epo inj Start: 11-25-2023 Hemoglobin/Hematocrit Hemoglobin/Hematocrit [facility] Start: 11-25-2023 Serum Creatinine Serum Creatinine [facility] Start: 11-24-2023 End: 11-24-2023 ambulatory 11/24/2023 4:00 PM EDT Infusion Center Hematology/Oncology [address] [facility] [place] [address] weekly lab and possible Epo inj Hematology/Oncology Comment on above: weekly lab and possible Epo inj Start: 11-24-2023 End: 11-24-2023 Patient encounter procedure 11/24/2023 3:30 PM EDT Office Visit [facility] [address] [facility] [place] [address] weekly lab and possible Epo inj [facility] Comment on above: weekly lab and possible Epo inj Start: 11-17-2023 End: 11-17-2023 ambulatory 11/17/2023 10:45 AM EDT Infusion Center Hematology/Oncology [address] [facility] [place] [address] weekly lab and possible Epo inj Hematology/Oncology Comment on above: weekly lab and possible Epo inj Start: 11-17-2023 End: 11-17-2023 Patient encounter procedure 11/17/2023 10:30 AM EDT Office Visit [facility] [address] [place] [address] weekly lab and possible Epo inj [facility] Comment on above: weekly lab and possible Epo inj Start: 11-14-2023 Influenza vaccination [facility] Start: 11-10-2023 HEMOGLOBIN/HEMATOCRIT HEMOGLOBIN/HEMATOCRIT [facility] Start: 11-10-2023 SERUM CREATININE SERUM CREATININE [facility] Start: 11-10-2023 End: 11-10-2023 ambulatory Hematology/Oncology Comment on above: 11/03-Lvm to see if pt wanted to R/S t o 10:45 am today on JAYLA schedule per Cassiaar Start: 11-10-2023 End: 11-10-2023 Follow-up encounter Hematology/Oncology Comment on above: 12 week follow up with lab and possible Epo inj Start: 11-10-2023 End: 11-10-2023 Patient encounter procedure [facility] Comment on above: 12 week follow up with lab and possible Epo inj 11/03-Lvm to see i f pt wanted to R/S to 10:45 am today on JAYLA schedule per TSmithar Start: 11-03-2023 End: 11-03-2023 ambulatory 11/03/2023 10:15 AM EDT [facility] Hematology/Oncology [address] [place] [address] Weekly cbc with aranesp Hematology/Oncology Comment on above: Weekly cbc with aranesp Start: 11-03-2023 End: 11-03-2023 Patient encounter procedure 11/03/2023 10:00 AM EDT Office Visit [facility] [address] [place] [address] Weekly cbc with aranesp [facility] Comment on above: Weekly cbc with aranesp Start: 10-28-2023 HEMOGLOBIN/HEMATOCRIT HEMOGLOBIN/HEMATOCRIT [facility] Start: 10-28-2023 SERUM CREATININE SERUM CREATININE [facility] Start: 10-27-2023 End: 10-27-2023 ambulatory Rheumatology Comment on above: 4m WG fu per yaseen Weekly cbc with ki raheem Start: 10-27-2023 End: 10-27-2023 Patient encounter procedure 10/27/2023 10:15 AM EDT Office Visit [facility] [address] [place] [address] Weekly cbc with aranesp [facility] Comment on above: Weekly cbc with aranesp Start: 10-20-2023 End: 10-20-2023 ambulatory 10/20/2023 10:15 AM EDT [facility] Hematology/Oncology [address] [place] [address] Weekly cbc with aranesp Hematology/Oncology Comment on above: Weekly cbc with aranesp Start: 10-20-2023 End: 10-20-2023 Patient encounter procedure 10/20/2023 10:00 AM EDT Office Visit [facility] [address] [place] [address] Weekly cbc with aranesp [facility] Comment on above: Weekly cbc with aranesp Start: 10-18-2023 End: 10-18-2023 [facility] Comment on above: Pre-transplant evaluation for end stage renal disease [Z01.818] on going on 10/18/23 per WQ Start: 10-18-2023 End: 11-09-2024 CT Abdomen and Pelvis WO contrast CT ABD/PEL WO IVCON Radiology STAT Chronic renal failure, unspecified CKD stage Pre-transplant evaluation for end stage renal disease Expected: 10/18/2023, Expires: 11/09/2024 [facility] Work Phone: Comment on above: Expected: 10/18/2023, Expires: Start: 10-18-2023 End: 10-18-2023 Patient encounter procedure Transplant Center Comment on above: Pre-transplant evaluation for end stage renal disease [Z01.818] on going on 10/18/23 per WQ Start: 10-18-2023 End: 10-18-2023 ambulatory 10/18/2023 10:45 AM EDT Results Only Cardiology [address] [place] [id number] EKG Pre-transplant evaluation for end stage renal disease [Z01.818] per [facility] Comment on above: EKG Pre-transplant evaluation for end st age renal disease [Z01.818] per [facility] Start: 10-14-2023 End: 10-14-2023 Patient encounter procedure 10/14/2023 2:10 PM EDT Office [facility] [address] [id number] Joanne Overton, SAMANTHA.LIGHTING SPECIALIST [address] [place] [address] follow up [facility] Comment on above: follow up Start: 10-14-2023 End: 10-14-2023 ambulatory 10/14/2023 8:00 AM EDT [facility] [address] [address] Pre-transplant evaluation for end stage renal disease [Z01.818] on going on 10/18/23 per [facility] Comment on above: Pre-transplant evaluation for end stage renal disease [Z01.818] on going on 10/18/23 per [facility] Start: 10-13-2023 End: 10-13-2023 ambulatory 10/13/2023 10:15 AM EDT Infusion Center Hematology/Oncology [address] [place] [address] Weekly cbc with aranesp Hematology/Oncology Comment on above: Weekly cbc with aranesp Start: 10-13-2023 End: 10-13-2023 Patient encounter procedure 10/13/2023 10:00 AM EDT Office Visit [facility] [address] [place] [address] Weekly cbc with aranesp [facility] Comment on above: Weekly cbc with aranesp Start: 10-06-2023 End: 10-06-2023 ambulatory 10/06/2023 10:15 AM EDT Infusion Center Hematology/Oncology [address] [place] [address] Weekly cbc with aranesp Hematology/Oncology Comment on above: Weekly cbc with aranesp Start: 10-06-2023 End: 10-06-2023 Patient encounter procedure 10/06/2023 10:00 AM EDT Office Visit [facility] [address] [place] [address] Weekly cbc with aranesp [facility] Comment on above: Weekly cbc with aranesp Start: 09-29-2023 End: 09-29-2023 ambulatory 09/29/2023 10:15 AM EDT Infusion Center Hematology/Oncology [address] [place] [address] Weekly cbc with aranesp Hematology/Oncology Comment on above: Weekly cbc with aranesp Start: 09-29-2023 End: 09-29-2023 Patient encounter procedure 09/29/2023 10:00 AM EDT Office Visit [facility] [address] [place] [address] Weekly cbc with aranesp [facility] Comment on above: Weekly cbc with aranesp Start: 09-22-2023 End: 09-22-2023 ambulatory 09/22/2023 10:45 AM EDT Infusion Center Hematology/Oncology [address] [place] [address] Weekly cbc with aranesp Hematology/Oncology Comment on above: Weekly cbc with aranesp Start: 09-22-2023 End: 09-22-2023 Patient encounter procedure 09/22/2023 10:30 AM EDT Office Visit [facility] [address] [place] [address] Weekly cbc with aranesp [facility] Comment on above: Weekly cbc with aranesp Start: 09-15-2023 End: 09-15-2023 ambulatory 09/15/2023 10:30 AM EDT Infusion Center Hematology/Oncology [address] [place] [address] Weekly cbc with aranesp Hematology/Oncology Comment on above: Weekly cbc with aranesp Start: 09-15-2023 End: 09-15-2023 Patient encounter procedure 09/15/2023 10:15 AM EDT Office Visit [facility] [address] [facility] [place] [address] Weekly cbc with aranesp [facility] Comment on above: Weekly cbc with aranesp Start: 09-08-2023 End: 09-08-2023 ambulatory 09/08/2023 10:15 AM EDT Infusion Center Hematology/Oncology [address] [facility] [place] [address] Weekly cbc with aranesp Hematology/Oncology Comment on above: Weekly cbc with aranesp Start: 09-08-2023 End: 09-08-2023 Patient encounter procedure 09/08/2023 10:00 AM EDT Office Visit [facility] [address] [facility] [place] [address] Weekly cbc with aranesp [facility] Comment on above: Weekly cbc with aranesp Start: 09-04-2023 HEMOGLOBIN/HEMATOCRIT HEMOGLOBIN/HEMATOCRIT [facility] Start: 09-04-2023 SERUM CREATININE SERUM CREATININE [facility] Start: 09-01-2023 End: 09-01-2023 ambulatory Hematology/Oncology Comment on above: Weekly cbc with aranesp Weekly cbc with lolis crit Start: 09-01-2023 End: 09-01-2023 Patient encounter procedure [facility] Comment on above: Weekly cbc with aranesp Weekly cbc with lolis crit Start: 08-25-2023 End: 08-25-2023 ambulatory 08/25/2023 10:15 AM EDT Infusion Center Hematology/Oncology [address] [facility] [place] [address] Weekly cbc with aranesp Hematology/Oncology Comment on above: Weekly cbc with aranesp Start: 08-25-2023 End: 08-25-2023 Patient encounter procedure 08/25/2023 10:00 AM EDT Office Visit [facility] [address] [facility] [place] [address] Weekly cbc with aranesp [facility] Comment on above: Weekly cbc with aranesp Start: 08-18-2023 End: 08-18-2023 Follow-up encounter Hematology/Oncology Comment on above: 6 week follow up with lab and possible E po inj Start: 08-18-2023 End: 08-18-2023 Patient encounter procedure 08/18/2023 10:30 AM EDT Office Visit [facility] [address] [facility] [place] [address] 6 week follow up with lab and possible Epo inj [facility] Comment on above: 6 week follow up with lab and possible E po inj Start: 08-11-2023 End: 08-11-2023 ambulatory 08/11/2023 11:30 AM EDT Infusion Center Hematology/Oncology [address] [facility] [place] [address] weekly lab and possible [facility] Hematology/Oncology Comment on above: weekly lab and possible [facility] Start: 08-11-2023 End: 08-11-2023 Patient encounter procedure 08/11/2023 11:15 AM EDT Office Visit [facility] [address] [facility] [place] [address] Weekly lab [facility] Comment on above: Weekly lab Start: 08-04-2023 End: 08-04-2023 ambulatory 08/04/2023 11:30 AM EDT Infusion Center Hematology/Oncology [address] [facility] [place] [address] weekly lab and possible [facility] Hematology/Oncology Comment on above: weekly lab and possible [facility] Start: 08-04-2023 End: 08-04-2023 Patient encounter procedure 08/04/2023 11:15 AM EDT Office Visit [facility] [address] [facility] [place] [address] Weekly lab [facility] Comment on above: Weekly lab Start: 08-04-2023 End: 08-04-2023 ambulatory 08/04/2023 9:45 AM EDT Infusion Center Hematology/Oncology [address] [facility] [place] [address] weekly lab and possible [facility] Hematology/Oncology Comment on above: weekly lab and possible [facility] Start: 08-04-2023 End: 08-04-2023 Patient encounter procedure 08/04/2023 9:15 AM EDT Office Visit [facility] [address] [facility] [place] [address] Weekly lab [facility] Comment on above: Weekly lab Start: 07-28-2023 End: 07-28-2023 ambulatory 07/28/2023 8:15 AM EDT Infusion Center Hematology/Oncology [address] [facility] [place] [address] weekly lab and possible [facility] Hematology/Oncology Comment on above: weekly lab and possible [facility] Start: 07-28-2023 End: 07-28-2023 Patient encounter procedure [facility] Comment on above: Weekly lab weekly lab and possi ble [facility] Start: 07-27-2023 End: 07-27-2023 ambulatory 07/27/2023 10:15 AM EDT Infusion Center Hematology/Oncology [address] [facility] [place] [address] weekly lab and possible [facility] Hematology/Oncology Comment on above: weekly lab and possible [facility] Start: 07-27-2023 End: 07-27-2023 Patient encounter procedure 07/27/2023 10:00 AM EDT Office Visit [facility] [address] [facility] [place] [address] weekly lab and possible [facility] Comment on above: weekly lab and possible [facility] Start: 07-22-2023 HEMOGLOBIN/HEMATOCRIT HEMOGLOBIN/HEMATOCRIT [facility] Start: 07-22-2023 SERUM CREATININE SERUM CREATININE [facility] Start: 07-21-2023 End: 07-21-2023 ambulatory 07/21/2023 1:15 PM EDT Infusion Center Hematology/Oncology [address] [place] [address] weekly lab and possible [facility] Hematology/Oncology Comment on above: weekly lab and possible [facility] Start: 07-21-2023 End: 07-21-2023 Patient encounter procedure 07/21/2023 1:00 PM EDT Office Visit [facility] [address] [facility] [place] [address] Weekly lab [facility] Comment on above: Weekly lab Start: 07-14-2023 End: 07-14-2023 ambulatory 07/14/2023 11:30 AM EDT [facility] Hematology/Oncology [address] [place] [address] weekly lab and possible [facility] Hematology/Oncology Comment on above: weekly lab and possible [facility] Start: 07-14-2023 End: 07-14-2023 Patient encounter procedure 07/14/2023 11:15 AM EDT Office Visit [facility] [address] [place] [address] Weekly lab [facility] Comment on above: Weekly lab Start: 07-09-2023 Mammography [facility] Start: 07-09-2023 Screening for malignant neoplasm of breast Mammogram Screening [facility] Start: 06-19-2023 HEMOGLOBIN/HEMATOCRIT HEMOGLOBIN/HEMATOCRIT [facility] Start: 06-19-2023 SERUM CREATININE SERUM CREATININE [facility] Start: 06-07-2023 End: 09-06-2023 lamoTRIgine [Mass/volume] in Serum or Plasma LAMOTRIGINE Lab Routine Localization-related (focal) (partial) symptomatic epilepsy and epileptic syndromes with complex partial seizures, not intractable, without status epilepticus (HCC) Expected: 06/07/2023, Expires: 09/06/2023 [facility] Work Phone: Comment on above: Expected: 06/07/2023, Expires: Start: 06-03-2023 HEMOGLOBIN/HEMATOCRIT HEMOGLOBIN/HEMATOCRIT [facility] Start: 06-03-2023 SERUM CREATININE SERUM CREATININE [facility] Start: 05-11-2023 HEMOGLOBIN/HEMATOCRIT HEMOGLOBIN/HEMATOCRIT [facility] Start: 05-11-2023 SERUM CREATININE SERUM CREATININE [facility] Start: 03-31-2023 HEMOGLOBIN/HEMATOCRIT HEMOGLOBIN/HEMATOCRIT [facility] Start: 03-31-2023 SERUM CREATININE SERUM CREATININE [facility] Start: 03-15-2023 Behavioral Health Screening Behavioral Health Screening [facility] Start: 03-15-2023 Depression Assessment Depression Assessment [facility] Start: 02-24-2023 End: 02-04-2024 Cobalamin (Vitamin B12) [Mass/volume] in Serum or Plasma VITAMIN B12 BLOOD Lab Routine Anemia in chronic kidney disease, on chronic dialysis (HCC) Expected: 02/24/2023 (Approximate), Expires: 02/04/2024 [facility] Work Phone: Comment on above: Expected: 02/24/2023 (Approximate), Expi res: 02/04/2024 Start: 02-24-2023 End: 02-04-2024 Comprehensive metabolic 2000 panel - Serum or Plasma COMP METABOLIC PANEL Lab Routine Anemia in chronic kidney disease, on chronic dialysis (HCC) Expected: 02/24/2023 (Approximate), Expires: 02/04/2024 [facility] Work Phone: Comment on above: Expected: 02/24/2023 (Approximate), Expi res: 02/04/2024 Start: 02-24-2023 End: 02-04-2024 Ferritin [Mass/volume] in Serum or Plasma FERRITIN BLD Lab Routine Anemia in chronic kidney disease, on chronic dialysis (HCC) Expected: 02/24/2023 (Approximate), Expires: 02/04/2024 [facility] Work Phone: Comment on above: Expected: 02/24/2023 (Approximate), Expi res: 02/04/2024 Start: 02-24-2023 End: 02-04-2024 Folate [Mass/volume] in Serum or Plasma FOLATE SERUM Lab Routine Anemia in chronic kidney disease, on chronic dialysis (HCC) Expected: 02/24/2023 (Approximate), Expires: 02/04/2024 [facility] Work Phone: Comment on above: Expected: 02/24/2023 (Approximate), Expi res: 02/04/2024 Start: 02-24-2023 End: 02-04-2024 Iron and Iron binding capacity panel - Serum or Plasma IRON + TIBC Lab Routine Anemia in chronic kidney disease, on chronic dialysis (HCC) Expected: 02/24/2023 (Approximate), Expires: 02/04/2024 [facility] Work Phone: Comment on above: Expected: 02/24/2023 (Approximate), Expi res: 02/04/2024 Start: 02-20-2023 HEMOGLOBIN/HEMATOCRIT HEMOGLOBIN/HEMATOCRIT [facility] Start: 02-20-2023 SERUM CREATININE SERUM CREATININE [facility] Start: 01-19-2023 HEMOGLOBIN/HEMATOCRIT HEMOGLOBIN/HEMATOCRIT [facility] Start: 01-19-2023 SERUM CREATININE SERUM CREATININE [facility] Start: 01-07-2023 End: 01-07-2024 CBC W Auto Differential panel - Blood [facility] Work Phone: Comment on above: Expected: 01/07/2023 (Approximate), Expi res: 12/25/2023 Expected: 01/07/2023 (Approximate), Expires: 01/07/2024 Start: 01-07-2023 End: 01-07-2024 Cobalamin (Vitamin B12) [Mass/volume] in Serum or Plasma [facility] Work Phone: Comment on above: Expected: 01/07/2023 (Approximate), Expi res: 12/25/2023 Expected: 01/07/2023 (Approximate), Expires: 01/07/2024 Start: 01-07-2023 End: 01-07-2024 Comprehensive metabolic 2000 panel - Serum or Plasma [facility] Work Phone: Comment on above: Expected: 01/07/2023 (Approximate), Expi res: 12/25/2023 Expected: 01/07/2023 (Approximate), Expires: 01/07/2024 Start: 01-07-2023 End: 01-07-2024 Ferritin [Mass/volume] in Serum or Plasma [facility] Work Phone: Comment on above: Expected: 01/07/2023 (Approximate), Expi res: 12/25/2023 Expected: 01/07/2023 (Approximate), Expires: 01/07/2024 Start: 01-07-2023 End: 01-07-2024 Folate [Mass/volume] in Serum or Plasma [facility] Work Phone: Comment on above: Expected: 01/07/2023 (Approximate), Expi res: 12/25/2023 Expected: 01/07/2023 (Approximate), Expires: 01/07/2024 Start: 01-07-2023 End: 01-07-2024 Iron and Iron binding capacity panel - Serum or Plasma [facility] Work Phone: Comment on above: Expected: 01/07/2023 (Approximate), Expi res: 12/25/2023 Expected: 01/07/2023 (Approximate), Expires: 01/07/2024 Start: 01-02-2023 HEMOGLOBIN/HEMATOCRIT HEMOGLOBIN/HEMATOCRIT [facility] Start: 01-02-2023 SERUM CREATININE SERUM CREATININE [facility] Start: 12-11-2022 HEMOGLOBIN/HEMATOCRIT HEMOGLOBIN/HEMATOCRIT [facility] Start: 12-11-2022 SERUM CREATININE SERUM CREATININE [facility] Start: 11-24-2022 End: 01-24-2023 Haptoglobin [Mass/volume] in Serum or Plasma HAPTOGLOBIN BLD Lab Routine Fever, unspecified fever cause Cough, unspecified type 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 with renal involvement (HCC) Macrocytic anemia Expected: 11/24/2022, Expires: 01/24/2023 [facility] Work Phone: Comment on above: Expected: 11/24/2022, Expires: 3 Start: 11-24-2022 End: 01-24-2023 Lactate dehydrogenase [Enzymatic activity/volume] in Serum or Plasma LD LACTATE DEHYDRO Lab Routine Fever, unspecified fever cause Cough, unspecified type 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 with renal involvement (HCC) Macrocytic anemia Expected: 11/24/2022, Expires: 01/24/2023 [facility] Work Phone: Comment on above: Expected: 11/24/2022, Expires: 3 Start: 11-24-2022 End: 01-24-2023 RETIC COUNT RETIC COUNT Lab Routine Fever, unspecified fever cause Cough, unspecified type 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 with renal involvement (HCC) Macrocytic anemia Expected: 11/24/2022, Expires: 01/24/2023 [facility] Work Phone: Comment on above: Expected: 11/24/2022, Expires: 3 Start: 11-13-2022 Covid-19 Vaccine () Covid-19 Vaccine () [facility] Start: 11-13-2022 Influenza vaccination [facility] Start: 11-13-2022 PNEUMOCOCCAL (2 - PPSV23 if available, else PCV20) PNEUMOCOCCAL (2 - PPSV23 if available, else PCV20) [facility] Start: 11-03-2022 HEMOGLOBIN/HEMATOCRIT HEMOGLOBIN/HEMATOCRIT [facility] Start: 11-03-2022 End: 01-03-2023 lamoTRIgine [Mass/volume] in Serum or Plasma LAMOTRIGINE Lab Routine Localization-related (focal) (partial) symptomatic epilepsy and epileptic syndromes with complex partial seizures, not intractable, without status epilepticus (HCC) Expected: 11/03/2022, Expires: 01/03/2023 [facility] Work Phone: Comment on above: Expected: 11/03/2022, Expires: 3 Start: 11-03-2022 SERUM CREATININE SERUM CREATININE [facility] Start: 09-08-2022 HEMOGLOBIN/HEMATOCRIT HEMOGLOBIN/HEMATOCRIT [facility] Start: 09-08-2022 SERUM CREATININE SERUM CREATININE [facility] Start: 09-03-2022 Duplex scan of lower limb veins US venous duplex LE LT [facility] Start: 09-03-2022 US Lower extremity vein - left [facility] Start: 08-15-2022 HEMOGLOBIN/HEMATOCRIT HEMOGLOBIN/HEMATOCRIT [facility] Start: 08-15-2022 SERUM CREATININE SERUM CREATININE [facility] Start: 07-22-2022 Pneumococcal vaccination [facility] Start: 07-21-2022 HEMOGLOBIN/HEMATOCRIT HEMOGLOBIN/HEMATOCRIT [facility] Start: 07-21-2022 SERUM CREATININE SERUM CREATININE [facility] Start: 07-17-2022 HEMOGLOBIN/HEMATOCRIT HEMOGLOBIN/HEMATOCRIT [facility] Start: 07-17-2022 SERUM CREATININE SERUM CREATININE [facility] Start: 07-14-2022 Hepatitis B Vaccine (3 of 5 - Risk Dialysis 4-dose series) Hepatitis B Vaccine (3 of 5 - Risk Dialysis 4-dose series) [facility] Start: 07-02-2022 HEMOGLOBIN/HEMATOCRIT HEMOGLOBIN/HEMATOCRIT [facility] Start: 07-02-2022 SERUM CREATININE SERUM CREATININE [facility] Start: 06-28-2022 HEMOGLOBIN/HEMATOCRIT HEMOGLOBIN/HEMATOCRIT [facility] Start: 06-28-2022 SERUM CREATININE SERUM CREATININE [facility] Start: 04-29-2022 End: 06-29-2022 JAK2 gene targeted mutation analysis in Blood or Tissue by Molecular genetics method JAK2 V617F MUTATION BLOOD Lab Routine 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 with renal involvement (HCC) Leukocytosis, unspecified type Bandemia Expected: 04/29/2022, Expires: 06/29/2022 [facility] Work Phone: Comment on above: Expected: 04/29/2022, Expires: 3 Start: 04-27-2022 End: 06-27-2022 JAK2 V617F CASCADING REFLEX TO CALR, JAK2 EXON 12, MPL, AND CSF3R JAK2 V617F CASCADING REFLEX TO CALR, JAK2 EXON 12, MPL, AND CSF3R Lab Routine 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 with renal involvement (HCC) Leukocytosis, unspecified type Bandemia Anemia, unspecified type Expected: 04/27/2022, Expires: 06/27/2022 [facility] Work Phone: Comment on above: Expected: 04/27/2022, Expires: 3 Start: 04-24-2022 Adult depression screening assessment DEPRESSION SCREENING [facility] Start: 04-21-2022 End: 06-21-2022 TPMT PHENOTYPE/ENZYME ACTIVITY TPMT PHENOTYPE/ENZYME ACTIVITY Lab Routine 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 with renal involvement (HCC) Chronic sinusitis, unspecified location Expected: 04/21/2022, Expires: 06/21/2022 [facility] Work Phone: Comment on above: Expected: 04/21/2022, Expires: 3 Start: 2022 Mammography MAMMOGRAM [facility] Start: 03-15-2022 DEPRESSION ASSESSMENT DEPRESSION ASSESSMENT [facility] Start: 01-08-2022 PNEUMOCOCCAL (2 - PPSV23 if available, else PCV20) PNEUMOCOCCAL (2 - PPSV23 if available, else PCV20) [facility] Start: 01-08-2022 PNEUMOCOCCAL (2 - PPSV23 or PCV20) PNEUMOCOCCAL (2 - PPSV23 or PCV20) [facility] Start: 01-08-2022 Pneumococcal vaccination Pneumococcal Vaccine (2 - PPSV23 or PCV20) [facility] Start: 01-04-2022 Hepatitis a & b vaccine hepa-hepb adult im HEPA/HEPB VACCINE ADULT IM Immunization/Injection Routine Choledocholithiasis Expected: 01/04/2022 [facility] Work Phone: Comment on above: Expected: 01/04/2022 Start: 11-13-2021 Influenza vaccination [facility] Start: 11-11-2021 End: 01-11-2022 DRUG SCREEN, BLOOD DRUG SCREEN, BLOOD Lab Routine Encounter for examination for insurance purposes Pre-transplant evaluation for end stage renal disease Expected: 11/11/2021, Expires: 01/11/2022 [facility] Work Phone: Comment on above: Expected: 11/11/2021, Expires: 2 Start: 11-11-2021 End: 11-04-2022 Echocardiography ECHO Cardiology Routine Pre-transplant evaluation for end stage renal disease Pre-operative cardiovascular examination Expected: 11/11/2021, Expires: 11/04/2022 [facility] Work Phone: Comment on above: Expected: 11/11/2021, Expires: 3 Start: 11-11-2021 End: 12-04-2022 NM CARDIAC PERF STRESS/PHARM NM CARDIAC PERF STRESS/PHARM Radiology Routine Encounter for screening for cardiovascular disorders Pre-transplant evaluation for end stage renal disease Pre-operative cardiovascular examination Expected: 11/11/2021, Expires: 12/04/2022 [facility] Work Phone: Comment on above: Expected: 11/11/2021, Expires: 3 Start: 11-06-2021 End: 01-06-2022 Complement C3 [Mass/volume] in Serum or Plasma C3 COMPLEMENT BLD Lab Routine Pre-transplant evaluation for end stage renal disease 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 with renal involvement (HCC) Expected: 11/06/2021, Expires: 01/06/2022 [facility] Work Phone: Comment on above: Expected: 11/06/2021, Expires: 2 Start: 11-06-2021 End: 01-06-2022 Complement C4 [Mass/volume] in Serum or Plasma C4 COMPLEMENT BLD Lab Routine Pre-transplant evaluation for end stage renal disease 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 with renal involvement (HCC) Expected: 11/06/2021, Expires: 01/06/2022 [facility] Work Phone: Comment on above: Expected: 11/06/2021, Expires: 2 Start: 11-06-2021 End: 01-06-2022 PROTEINASE 3 ANTIBODY PROTEINASE 3 ANTIBODY Lab Routine Pre-transplant evaluation for end stage renal disease 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 with renal involvement (HCC) Expected: 11/06/2021, Expires: 01/06/2022 [facility] Work Phone: Comment on above: Expected: 11/06/2021, Expires: 2 Start: 10-08-2021 End: 10-31-2022 Ct abdomen & pelvis w/o contrast material CT ABD/PEL WO IVCON Radiology Routine Chronic renal failure, stage 5 (HCC) Pre-transplant evaluation for kidney transplant Expected: 10/08/2021, Expires: 10/31/2022 [facility] Work Phone: Comment on above: Expected: 10/08/2021, Expires: 3 Start: 09-08-2021 End: 11-08-2021 25-hydroxyvitamin D3 [Mass/volume] in Serum or Plasma [facility] Work Phone: Comment on above: Expected: 09/08/2021, Expires: 2 Start: 09-08-2021 End: 11-08-[address] [facility] Work Phone: Comment on above: Expected: 09/08/2021, Expires: 2 Start: 08-28-2021 End: 08-28-2021 [facility] Work Phone: Start: 08-21-2021 Laparoscopic insertion of peritoneal dialysis catheter OR Catheter Dialysis Insert Laparoscopic (Not Applicable) [facility] Start: 08-07-2021 Hepatitis a & b vaccine hepa-hepb adult im HEPA/HEPB VACCINE ADULT IM Immunization/Injection Routine Choledocholithiasis Expected: 08/07/2021 [facility] Work Phone: Comment on above: Expected: 08/07/2021 Start: 07-08-2021 End: 09-07-2021 VITAMIN D 25 HYDROXY VITAMIN D 25 HYDROXY Lab Routine Vitamin D deficiency Expected: 07/08/2021, Expires: 09/07/2021 [facility] Work Phone: Comment on above: Expected: 07/08/2021, Expires: 2 Start: 06-24-2021 End: 08-24-2021 aPTT in Platelet poor plasma by Coagulation assay ACTIVATED PTT Lab Routine Acute hepatitis Expected: 06/24/2021, Expires: 08/24/2021 [facility] Work Phone: Comment on above: Expected: 06/24/2021, Expires: 2 Start: 06-24-2021 End: 08-24-2021 Basic metabolic 2000 panel - Serum or Plasma BASIC METABOLIC PNL Lab Routine Acute hepatitis Expected: 06/24/2021, Expires: 08/24/2021 [facility] Work Phone: Comment on above: Expected: 06/24/2021, Expires: 2 Start: 06-24-2021 End: 08-24-2021 CBC W Auto Differential panel - Blood CBC + DIFF Lab Routine Acute hepatitis Expected: 06/24/2021, Expires: 08/24/2021 [facility] Work Phone: Comment on above: Expected: 06/24/2021, Expires: 2 Start: 06-24-2021 End: 08-24-2021 Ceruloplasmin [Mass/volume] in Serum or Plasma CERULOPLASMIN BLD Lab Routine Acute hepatitis Expected: 06/24/2021, Expires: 08/24/2021 [facility] Work Phone: Comment on above: Expected: 06/24/2021, Expires: 2 Start: 06-24-2021 End: 08-24-2021 CMV DNA DETECTION AND QUANT CMV DNA DETECTION AND QUANT Lab Routine Acute hepatitis Expected: 06/24/2021, Expires: 08/24/2021 [facility] Work Phone: Comment on above: Expected: 06/24/2021, Expires: 2 Start: 06-24-2021 End: 08-24-2021 Cytomegalovirus IgM Ab [Units/volume] in Serum or Plasma CMV IGM AB Lab Routine Acute hepatitis Expected: 06/24/2021, Expires: 08/24/2021 [facility] Work Phone: Comment on above: Expected: 06/24/2021, Expires: 2 Start: 06-24-2021 End: 08-24-2021 MARIA L GOLD PANEL MARIA L GOLD PANEL Lab Routine Acute hepatitis Expected: 06/24/2021, Expires: 08/24/2021 [facility] Work Phone: Comment on above: Expected: 06/24/2021, Expires: 2 Start: 06-24-2021 End: 08-24-2021 Maria L Gold virus DNA [#/volume] (viral load) in Blood by KAUSHAL with probe detection MARIA L-GOLD DNA QNT Lab Routine Acute hepatitis Expected: 06/24/2021, Expires: 08/24/2021 [facility] Work Phone: Comment on above: Expected: 06/24/2021, Expires: 2 Start: 06-24-2021 End: 08-24-2021 HEP ACUTE PANEL/RNA HEP ACUTE PANEL/RNA Lab Routine Acute hepatitis Expected: 06/24/2021, Expires: 08/24/2021 [facility] Work Phone: Comment on above: Expected: 06/24/2021, Expires: 2 Start: 06-24-2021 End: 08-24-2021 HEPATIC FUNCTION PNL HEPATIC FUNCTION PNL Lab Routine Acute hepatitis Expected: 06/24/2021, Expires: 08/24/2021 [facility] Work Phone: Comment on above: Expected: 06/24/2021, Expires: 2 Start: 06-24-2021 End: 08-24-2021 Hepatitis B virus DNA [Units/volume] in Serum HEP B VIRAL DNA NAYELI Lab Routine Acute hepatitis Expected: 06/24/2021, Expires: 08/24/2021 [facility] Work Phone: Comment on above: Expected: 06/24/2021, Expires: 2 Start: 06-24-2021 End: 08-24-2021 HSV 1,2 ANTIBODIES IGG+IGM HSV 1,2 ANTIBODIES IGG+IGM Lab Routine Acute hepatitis Expected: 06/24/2021, Expires: 08/24/2021 [facility] Work Phone: Comment on above: Expected: 06/24/2021, Expires: 2 Start: 06-24-2021 End: 08-24-2021 IMMUNOGLOBULINS KAREN IMMUNOGLOBULINS KAREN Lab Routine Acute hepatitis Expected: 06/24/2021, Expires: 08/24/2021 [facility] Work Phone: Comment on above: Expected: 06/24/2021, Expires: 2 Start: 06-24-2021 End: 08-24-2021 Liver kidney microsomal Ab [Titer] in Serum by Immunofluorescence LKM AB Lab Routine Acute hepatitis Expected: 06/24/2021, Expires: 08/24/2021 [facility] Work Phone: Comment on above: Expected: 06/24/2021, Expires: 2 Start: 06-24-2021 End: 08-24-2021 PT panel - Platelet poor plasma by Coagulation assay PROTHROMBIN TIME/PT Lab Routine Acute hepatitis Expected: 06/24/2021, Expires: 08/24/2021 [facility] Work Phone: Comment on above: Expected: 06/24/2021, Expires: 2 Start: 06-24-2021 End: 08-24-2021 SMOOTH MUSCLE AB PNL SCRN SMOOTH MUSCLE AB PNL SCRN Lab Routine Acute hepatitis Expected: 06/24/2021, Expires: 08/24/2021 [facility] Work Phone: Comment on above: Expected: 06/24/2021, Expires: 2 Start: 06-24-2021 End: 08-24-2021 Soluble liver IgG Ab [Units/volume] in Serum by Immunoassay SOLUBLE LIVER AG AB Lab Routine Acute hepatitis Expected: 06/24/2021, Expires: 08/24/2021 [facility] Work Phone: Comment on above: Expected: 06/24/2021, Expires: 2 Start: 06-24-2021 End: 08-24-2021 Varicella zoster virus IgM Ab [Units/volume] in Serum by Immunoassay VARICELLA ZOSTER IGM Lab Routine Acute hepatitis Expected: 06/24/2021, Expires: 08/24/2021 [facility] Work Phone: Comment on above: Expected: 06/24/2021, Expires: 2 Start: 04-12-2021 Elevated troponin level Elevated troponin level Date: 12-Apr-2021 [facility] Start: 04-12-2021 End: 04-13-2022 [facility] Comment on above: 1. Dilute 1.3 mL of activated DEFINITY w ith 8.7 mL of normal saline in a 10 mL syringe.2. Inject 0.5 mL of diluted DEFINITY when notified the images/film are unclear to enhance view of Left Ventricular borders.3. Repeat 0.5 mL of DEFINITY until clear images are obtained, not to exceed 10 mLs.4. Once images are obtained or limit of medication is reached, flush line with 10 mL of Normal Saline. May repeat until Blo od Glucose level reaches 100 milligrams/deciliter or greater. Push 2 - 3 milliliters/minute if patient has secure IV access. Until blood glucose is 100 mg/dl or greater. If patient DOES NOT HAVE secure IV access & Patient is Unconscious, NPO or is unable to eat or drink. May repeat until Blo od Glucose level reaches 100 milligrams/deciliter or greater. Push 2 - 3 milliliters/minute; if patient has secure IV access & Patient is Unconscious, NPO or is unable to eat or drink Start: 03-15-2021 DEPRESSION ASSESSMENT DEPRESSION ASSESSMENT [facility] Start: 12-02-2020 COVID-19 VACCINE (3 - Booster for Pfizer series) COVID-19 VACCINE (3 - Booster for Pfizer series) [facility] Start: 11-13-2020 Influenza vaccination INFLUENZA (#1) [facility] Start: 07-30-2020 COVID-19 VACCINE (3 - Pfizer risk series) COVID-19 VACCINE (3 - Pfizer risk series) [facility] Start: 2012 HPV TESTING HPV TESTING [facility] Start: 2012 Screening for malignant neoplasm of cervix HPV Testing [facility] Start: 2003 PAP TESTING PAP TESTING [facility] Start: 2003 Screening for malignant neoplasm of cervix Pap Testing [facility] Start: 2002 Hepatitis B Vaccine (1 of 3 - Risk Dialysis 4-dose series) Hepatitis B Vaccine (1 of 3 - Risk Dialysis 4-dose series) [facility] Start: 2001 HEPATITIS A (1 of 2 - Risk 2-dose series) HEPATITIS A (1 of 2 - Risk 2-dose series) [facility] Start: 2001 Hepatitis A Vaccine (1 of 2 - Risk 2-dose series) Hepatitis A Vaccine (1 of 2 - Risk 2-dose series) [facility] Start: 2001 HEPATITIS B (1 of 3 - Risk 3-dose series) HEPATITIS B (1 of 3 - Risk 3-dose series) [facility] Start: 2001 SHINGRIX VACCINE (1 of 2) SHINGRIX VACCINE (1 of 2) [facility] Start: 2001 Urine microalbumin profile [facility] Start: 2000 ANNUAL PCP TEAM CHRONIC DISEASE VISIT ANNUAL PCP TEAM CHRONIC DISEASE VISIT [facility] Start: 2000 Anxiety Screening Anxiety Screening [facility] Start: 2000 Depression Screening Depression Screening [facility] Start: 1993 Screening for malignant neoplasm of cervix Cervical Cancer Screening [facility] Start: 1988 PNEUMOCOCCAL (1 - PCV) PNEUMOCOCCAL (1 - PCV) [facility] Start: 1987 COVID-19 VACCINE (#1) COVID-19 VACCINE (#1) [facility] Start: 1987 COVID-19 VACCINE (1) COVID-19 VACCINE (1) [facility] Start: 1983 HEPATITIS A (1 of 2 - Risk 2-dose series) HEPATITIS A (1 of 2 - Risk 2-dose series) [facility] Start: 1982 HEPATITIS B (1 of 3 - 3-dose series) HEPATITIS B (1 of 3 - 3-dose series) [facility] Start: 1982 Hepatitis B Vaccine (1 of 3 - 3-dose series) Hepatitis B Vaccine (1 of 3 - 3-dose series) [facility] Bacteria identified in Blood by Culture BLOOD CULTURE Microbiology Routine Fever, unspecified fever cause Cough, unspecified type 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 with renal involvement (HCC) 11/24/2022 10:[address] [facility] Work Phone: BACTERIAL VAGINOSIS NAAT BACTERI AL VAGINOSIS NAAT Lab Routine Vaginal pain 01/12/2023 11:[address] [facility] Work Phone: Calcium [Mass/volume ] in Serum or Plasma [facility] Work Phone: CHERRY/TRICHOMONAS NAAT CHERRY /TRICHOMONAS NAAT Lab Routine Vaginal pain 01/12/2023 11:[address] [facility] Work Phone: Carbon dioxide, tota l [Moles/volume] in Serum or Plasma [facility] Work Phone: End: 01-26-2024 CBC W Auto Differential panel - Blood CBC + DIFF Lab Routine Anemia in chronic kidney disease, on chronic dialysis (HCC) 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 with renal involvement (HCC) Every other week for 26 Occurrences starting 01/26/2023 until 01/26/2024 [facility] Work Phone: Comment on above: Every other week for 26 Occurrences star ting 01/26/2023 until 01/26/2024 End: 02-03-2024 CBC W Auto Differential panel - Blood CBC + DIFF Lab Routine Anemia in chronic kidney disease, on chronic dialysis (HCC) 3x per week for 150 Occurrences starting 02/03/2023 until 02/03/2024, [address] [facility] Work Phone: Comment on above: 3x per week for 150 Occurrences starting 02/03/2023 until 02/03/2024, 1 completed Chloride [Moles/volu me] in Serum or Plasma [facility] Work Phone: End: 01-26-2024 Cobalamin (Vitamin B12) [Mass/volume] in Serum or Plasma VITAMIN B12 BLOOD Lab Routine Anemia in chronic kidney disease, on chronic dialysis (HCC) 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 with renal involvement (HCC) Every 6 weeks for 9 Occurrences starting 01/26/2023 until 01/26/2024 [facility] Work Phone: Comment on above: Every 6 weeks for 9 Occurrences starting 01/26/2023 until 01/26/2024 End: 01-26-2024 Comprehensive metabolic 2000 panel - Serum or Plasma COMP METABOLIC PANEL Lab Routine Anemia in chronic kidney disease, on chronic dialysis (HCC) 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 with renal involvement (HCC) Every other week for 26 Occurrences starting 01/26/2023 until 01/26/2024 [facility] Work Phone: Comment on above: Every other week for 26 Occurrences star ting 01/26/2023 until 01/26/2024 Creatinine and Glome rular filtration rate.predicted panel - Serum, Plasma or Blood [facility] Work Phone: End: 08-20-2022 Ct abdomen & pelvis w/contrast material CT ABD/PEL W IVCON Radiology Routine Infection in abdomen (HCC) 1 Occurrences starting 07/21/2021 until 08/20/2022 [facility] Work Phone: Comment on above: 1 Occurrences starting 07/21/2021 until 08/20/2022 End: 10-08-2022 Ct thorax w/o contrast material CT CHEST WO IVCON Radiology Routine SOB (shortness of breath) 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 with renal involvement (HCC) group home current use of systemic steroids Chronic sinusitis, unspecified location Vitamin D deficiency 1 Occurrences starting 09/08/2021 until 10/08/2022 [facility] Work Phone: Comment on above: 1 Occurrences starting 09/08/2021 until 10/08/2022 End: 12-24-2023 Ct thorax w/o contrast material CT CHEST WO IVCON Radiology Routine Fever, unspecified fever cause Cough, unspecified type 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 with renal involvement (HCC) 1 Occurrences starting 11/24/2022 until 12/24/2023 [facility] Work Phone: Comment on above: 1 Occurrences starting 11/24/2022 until 12/24/2023 Ct thorax w/o contra st material CT CHEST WO IVCON Radiology Routine Fever, unspecified fever cause Cough, unspecified type 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 with renal involvement (HCC) 03/14/2023 8:[address] [facility] Work Phone: End: 12-18-2023 ECG COMPLETE ECG COMPLETE ECG Routine Cerebrovascular accident (CVA), unspecified mechanism (HCC) 1 Occurrences starting 12/17/2022 until 12/18/2023 [facility] Work Phone: Comment on above: 1 Occurrences starting 12/17/2022 until 12/18/2023 End: 11-27-2023 EGD DIAGNOSTIC EGD DIAGNOSTIC Endoscopy Routine Nausea and vomiting, unspecified vomiting type 1 Occurrences starting 11/26/2022 until 11/27/2023 [facility] Work Phone: Comment on above: 1 Occurrences starting 11/26/2022 until 11/27/2023 End: 06-28-2022 ERCP ERCP Endoscopy Routine Encounter for removal of biliary stent 1 Occurrences starting 06/28/2021 until 06/28/2022 [facility] Work Phone: Comment on above: 1 Occurrences starting 06/28/2021 until 06/28/2022 End: 08-06-2021 ERCP ERCP Endoscopy Routine Encounter for removal of biliary stent 1 Occurrences starting 08/06/2021 until 08/06/2021 [facility] Work Phone: Comment on above: 1 Occurrences starting 08/06/2021 until 08/06/2021 End: 01-26-2024 Ferritin [Mass/volume] in Serum or Plasma FERRITIN BLD Lab Routine Anemia in chronic kidney disease, on chronic dialysis (HCC) 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 with renal involvement (HCC) Every 6 weeks for 9 Occurrences starting 01/26/2023 until 01/26/2024 [facility] Work Phone: Comment on above: Every 6 weeks for 9 Occurrences starting 01/26/2023 until 01/26/2024 End: 01-26-2024 Folate [Mass/volume] in Serum or Plasma FOLATE SERUM Lab Routine Anemia in chronic kidney disease, on chronic dialysis (HCC) 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 with renal involvement (HCC) Every 6 weeks for 9 Occurrences starting 01/26/2023 until 01/26/2024 [facility] Work Phone: Comment on above: Every 6 weeks for 9 Occurrences starting 01/26/2023 until 01/26/2024 Glucose [Mass/volume ] in Serum or Plasma [facility] Work Phone: Hepatitis a & b vacc ine hepa-hepb adult im HEPA/HEPB VACCINE ADULT IM Immunization/Injection Routine Choledocholithiasis Ordered: 07/08/2021 [facility] Work Phone: Comment on above: Ordered: 07/08/2021 End: 01-26-2024 Iron and Iron binding capacity panel - Serum or Plasma IRON + TIBC Lab Routine Anemia in chronic kidney disease, on chronic dialysis (HCC) 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 with renal involvement (HCC) Every 6 weeks for 9 Occurrences starting 01/26/2023 until 01/26/2024 [facility] Work Phone: Comment on above: Every 6 weeks for 9 Occurrences starting 01/26/2023 until 01/26/2024 JAK2 gene targeted mutation analysis in Blood or Tissue by Molecular genetics method [id number] MUTATION BLOOD Lab Routine 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 with renal involvement (HCC) Leukocytosis, unspecified type Bandemia 05/11/2022 2:[address] [facility] Work Phone: Measurement of renal function [facility] Work Phone: Patient Education [facility] Work Phone: Patient referral [facility] Work Phone: Potassium [Moles/vol ume] in Serum or Plasma [facility] Work Phone: PT PLAN OF CARE CERTIFICATION PT PLAN OF CARE CERTIFICATION Procedures Routine Muscle weakness Ordered: 02/11/2023 [facility] Work Phone: Comment on above: Ordered: 02/11/2023 Sodium [Moles/volume ] in Serum or Plasma [facility] Work Phone: End: 09-05-2022 SPIROMETRY - BASELINE AND POST DILATOR SPIROMETRY - BASELINE AND POST DILATOR PFT Routine 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 with renal involvement (HCC) 1 Occurrences starting 08/06/2021 until 09/05/2022 [facility] Work Phone: Comment on above: 1 Occurrences starting 08/06/2021 until 09/05/2022 SPIROMETRY WITH DILA TOR IF OBSTRUCTED SPIROMETRY WITH DILATOR IF OBSTRUCTED PFT Routine 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 with renal involvement (HCC) 02/11/2022 12:[address] [facility] Work Phone: SURGICAL PATHOLOGY [facility] Work Phone: Comment on above: Release Upon Ordering for 1 Occurrences starting 12/22/2022, 1 completed Urea nitrogen [Mass/volume] in Serum or Plasma [facility] Work Phone: [facility] Immunizations Immunization Date Immunization Notes Care Provider Jacqui [facility] 06-16-2022 hepatitis B vaccine, unspecified formulation [facility] Work Phone: [facility] 05-27-2022 influenza, seasonal, injectable [facility] Work Phone: [facility] 05-27-2022 pneumococcal conjuga te vaccine, 13 valent [facility] Work Phone: [facility] 05-27-2022 influenza virus vaccine, unspecified formulation Lauren Rodriguez MD Work Phone: [facility] 03-18-2022 hepatitis B vaccine, dialysis patient dosage [facility] Work Phone: [facility] 02-25-2022 hepatitis B vaccine, dialysis patient dosage [facility] Work Phone: [facility] 01-08-2022 influenza nasal, unspecified formulation Pulm 9 [facility] 11-13-2021 pneumococcal conjuga te vaccine, 13 valent Pulm 9 [facility] 07-10-2021 hepatitis B vaccine, pediatric or pediatric/adolescent dosage Te Avendaño MD Work Phone: [facility] Work Phone: 07-10-2021 hepatitis B vaccine, unspecified formulation Lise Rachel [facility] 06-12-2021 hepatitis B vaccine, pediatric or pediatric/adolescent dosage Te Avendaño MD Work Phone: [facility] Work Phone: 07-02-2020 COVID-19 Heather Escobar (Pfizer) MD Robert Patel Work Phone: [facility] 06-09-2020 COVID-19 Heather Escobar (Pfizer) MD Robert Patel Work Phone: [facility] 12-19-2019 influenza, injectabl e, quadrivalent, preservative free Te Avendaño MD Work Phone: [facility] Payers Date Payer Category Payer Medicare MEDICARE MEDICAR E A AND B [id number] 2023-Present [phone] [address] [address] [place] [address] Medicare [id number] 2023 Medicare [id number] 2022 Self-pay [id number] 2017 Medicaid [place] MED[place] [place] MEDICA[place] [id number] 2017-Present [phone] [address] [place] [address] Medicaid [id number] 2017 Medicaid [id number] 1982 Unknown [id number] 1982 Unknown [id number] 1982 Unknown [id number] 1982 Unknown [id number] 1982 Unknown [id number] [id number] 1982 Unknown [id number] 2..[id number] 1982 Unknown [id number] [id number] 1982 Unknown [id number] [id number] 1982 Unknown [id number] 2..[id number] 1982 Unknown [id number] 2..[id number] 1982 Unknown [id number] [id number] 1982 Unknown [id number] 1982 Unknown [id number] 1982 Unknown [id number] [id number] 1982 Unknown [id number] 1959 Medicaid [id number] Unknown Unknown [id number] Unknown [id number] Unknown [id number] Social History Date Type Detail Facility [facility] Tobacco smoking consumption unknown [facility] Start: 04-28-2021 End: 04-27-2022 Tobacco smoking status NHIS Never smoked tobacco [facility] Start: 04-28-2021 End: 04-27-2022 Tobacco use and exposure Smokeless tobacco non-user [facility] Start: 1980 Sex Assigned At Female C [facility] Start: 06-27-2021 End: 10-14-2023 Alcohol intake Ex-drinker (finding) [facility] Start: 06-14-2021 End: 02-11-2022 Exposure to SARS-CoV-2 (event) Not sure [facility] Start: 09-30-2021 End: 01-02-2022 Exposure to SARS-CoV-2 (event) Unable to assess [facility] Start: 11-03-2021 Education 21 [facility] Start: 05-11-2022 End: 07-21-2022 History of Social function [facility] Start: 05-11-2022 End: 07-21-2022 Tobacco use panel [facility] Adult Depression Screening Assessment 0 [facility] Start: 04-24-2021 Gender identity Identifies as female gender (finding) [facility] Start: 04-24-2021 Sexual orientation Heterosexual (fin ding) [facility] NEGATED: Highlighted rowStart: NINF History of tobacco use Passive smoker [facility] Medical Equipment Procedure Code Equipment Code Equipment Origin al Text Equipment Identifier Dates Insertion, catheter, dialysis, peritoneal, laparoscopic Peritoneal dialysis catheter, chronic [id number] [facility] Start: 08-28-2021 Stent 10fr Duodenal Bend Plastic 7cm Biliary Temporary Rapid Exchange - [id number] Start: 06-27-2021 Loop [id number] Linq [id number] Start: 01-04-2023 Goals Date Patient Goal Desired Activity /State Functional Status Date Assessment Result Facility Functional observable [facility] Mental Status Date Assessment Result Facility 04-21-2021 Cognitive functions 21-Apr-19 2216:49 [facility] Clinical Notes 04-12-2021 to 11-10-2023 Patient InstructionsNatali Child MD - 11/10/2023 10:45 AM EDTAddendum Note - Kathy Post RN - 11/09/2023 3:04 PM EDTAddendum Note - Kathy Post RN - 11/09/2023 3:04 PM EDT<item> Note Date & Type Note Facility 11-10-2023 Instructions Natali Child MD - 11/10/2023 10:55 AM EDT CBC weekly, Anemia labs q 6 weeks Continue Epoietin weekly 40k units for Hgb <11.0 RTC in 12 weeks with labs and Epoietin after documented in this encounter [facility] 11-10-2023 History of Present illness Narrative Images from the original note were not included. 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 She has had chronic leukocytosis which is primarily neutrophilic and most compatible with chronic inflammatory process. This is unlikely to be a primary hematologic abnormality or malignancy. I obtained MPN workup which is negative so far. I would be happy to investigate further with bone marrow bx. if clarification is required prior to transplant, but in the meanwhile, we will follow her conservatively. PLAN: CBC weekly, Anemia labs q 6 weeks Continue Epoietin weekly 40k units for Hgb <11.0 RTC in 12 weeks with labs and Epoietin after HPI: CASE HISTORY: Reverse Chronological Order 03/14/2023 - CT Chest: No acute pulmonary disease 02/03/2023 - Anticipated assumption of Aranesp from dialysis center 11/10/2022 - XR Chest: Lines, tubes, and devices: EKG electrodes. Lungs and pleura: The lungs are hypoinflated. No consolidation. No pleural effusion. No pneumothorax. Cardiomediastinal silhouette: Stable cardiomediastinal silhouette. Other: No acute bony abnormalities. No displaced acute fractures are detected. No definite intra-abdominal free air. 07/30/2022 - CT Head/Neck: No large vessel occlusion or high-grade stenosis in the head or neck. 01/03/2022 - Maintenance dose Rituxan 01/02/2022 - CT chest - No suspicious pulmonary nodule or thoracic lymphadenopathy. No ground-glass or consolidative airspace opacities. Interval cholecystectomy since the prior abdominal CT from 04/11/2021. Pneumobilia is new and is likely postsurgical. The kidneys are small/atrophied compared to the prior abdominal CT from 04/11/2021, likely due to the patient's history of GPA/end-stage renal disease. A few tiny foci of free intraperitoneal gas are probably due to peritoneal dialysis, new compared to the prior exam. 12/24/2022 - Sent for blood transfusion (Hgb 6.8) 09/2021 - Transaminitis - acute pancreatitis - underwent cholecystectomy 08/2021 - Started on peritoneal dialysis. 05/16/2021- 06/06/2021 - Rituxan weekly x 4 induction 04/18/2021 - Kidney biopsy: 26 glomeruli, 21 with crescents and extensive injury. 4 cellula, 17 fibrocellular with ruptured manjarrez 'capsules. 6 with segmental sclerosis and 3 fibrinoid necrosis. One with interlobular artery with fibrinoid necrosis. Neg IF and EM . 04/2021 - Anuric, vomiting - cANCA 1:640. pr3 1319. CRP 22.96 N< 1. SD rate >100. Hep neg. TB NEG. GBM abs neg 04/12/2021 - CT chest: Smooth symmetric bilateral interlobular septal thickening with edema. Tree in bud opacities in right upper lobe Ill defining patchy ground glass opacities in right middle and upper lobes alveolar hemorrhage vs multi focal pneumonia Splenomegaly 11/2020 - developed sinus infection Nasal bloody discharge. Nasal crusting - doesn't do any rinses - 3 courses of abx - unresolved.(Z pack and augmentin) Updated Visit, November 10, 2023: Doing very well. H/H has been stable. Continue epo replacement. Continues to feel really good overall. Updated Visit, August 18, 2023: Mita returns today for a follow up. Her CBC shows stability overall with weekly Epoietin. She is feeling the best she has felt in 3 years with this current regimen. Updated Visit, July 07, 2023: Doing well and will be having iron added to dialysis. Doing well from anemia standpoint. Updated Visit, May 26, 2023: Mita Duarte returns for follow-up and in the bowl. She complains of chronic fatigue. She denies any cough, shortness of breath or other pulmonary complaints. She denies fevers, chills, night sweats and signs/symptoms of infection. She is still being considered for a possible transplant. Updated Visit, April 14, 2023: Mita returns today, she is feeling good. Anemia has improved, Hgb is at 10.0 today. Continue current regimen of Epoietin 40k units weekly. Updated Visit, March 03, 2023: Mita returns today with Spenser for follow up. She has been more tired the past few days, but has otherwise felt okay. We reviewed her labs, her anemia shows slight improvement. We should increase frequency of her Epoietin. Updated Visit, February 02, 2023: Mita returns today for follow up visit and Epoietin, accompanied by Spenser. She was on Augmentin for 5 days after her GI issues were deemed to be caused by an unknown infection. The issues are now nearly resolved. She reports feeling a bit better overall. Reviewed her CBC, her anemia is improving after increasing Epoietin. She qualifies again today. Updated Visit, January 13, 2023: Mita returns after blood transfusion, Hgb responded to a safer level. She is actively getting iron and Aranesp/biosimilar with dialysis. Labs are pending today, will determine need for additional iron. She felt like she had a bit more energy after the transfusions, but still feeling very tired. She has not had any iron in about a month. Receives the Aranesp every 2-3 weeks. Has a cough due to GI issues, not new. Updated Visit, December 24, 2022: Spenser is with her. 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 EGD done because can't keep down any food or drink. Lost 20 lbs since October. Working on transplant kidney. Very anemic today. - recommend transfusion Updated Visit, May 11, 2022: Abdominal pain is improving.leucocytosis is stable and is primarily composed of neutrophils. MPN workup to date is negative (BCR-ABL, JAK2 exon 12-16 sequencing), JAK2 V16F mutation is pending. She remains afebrile. 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 Has been referred for increased leukocytosis over the past few months. Is on peritoneal dialysis early August 2021 Is on epo replacement Rituxan finished 01/09/2022May - June had acute panreatitis and cholecystectomy She is scheduled to start Azathioprine in May 2022. REVIEW OF SYSTEMS Per HPI and otherwise negative by full review of organ systems. ECOG PERFORMANCE STATUS: 1 PHYSICAL EXAMINATION: Vitals: BP 111/78 Pulse 78 Temp (Src) 97.5 (Temporal) Resp 16 Ht 5' 0 (1.52m) Wt 165 lb 12.6 oz (75.2kg) SpO2 100% BMI 32.38 kg/(m^2). Body surface area is 1.78 meters squared. Exam limited to gross visualization where appropriate. Gen.: This is an age-appropriate patient in no acute distress. Head: Appears atraumatic with no visible lesions. Eyes: Pupils equally round and reactive to light, extraocular muscles are intact. Neck: Supple. Respiratory: Appears to be respiring comfortably. Neurologic: Nonfocal to gross visualization. Alert and oriented 3. Psychiatric: No evidence of inappropriate anxiety or depression. Skin: Visible areas of skin without rash, lesions, wounds or petechiae. ALLERGIES: ALLERGIES Allergen Reactions Amoxicillin-Pot Cla* Hives, Rash Vancomycin Itching hives MEDICATIONS: warfarin (COUMADIN) 5 mg tablet Take 5 mg by mouth once daily. 7.5mg on Wednesday ONLY remainder days 5mg cinacalcet (SENSIPAR) 30 mg tablet Take 30 mg by mouth three times a week. azaTHIOprine (IMURAN) 50 mg tablet Take 1 tablet by mouth two times a day. amLODIPine (NORVASC) 2.5 mg tablet Take 2.5 mg by mouth once daily. lamoTRIgine ER (LAMICTAL XR) 100 mg 24 hr tablet Take 1 tablet by mouth two times a day. ondansetron (ZOFRAN) 8 mg tablet Take 8 mg by mouth three times a day as needed. atorvastatin (LIPITOR) 40 mg tablet Take [address]op[address]ole [address] (PROTONIX) 40 mg tablet Take 1 tablet by mouth every 12 hours. apixaban (ELIQUIS) 2.5 mg tab(s) Take by mouth twice daily. lanthanum (FOSRENOL) 1,000 mg chewable tablet metoprolol tartrate, short acting, (LOPRESSOR) 25 mg tablet Take 25 mg by mouth two times a day. DIALYVITE 100-1 mg tab Take 1 tablet by mouth once daily. gentamicin 0.1% 0.1 % cream Apply to affected area as needed. polyethylene glycol 3350 (MIRALAX, GLYCOLAX) 17 gram/dose powder Take by mouth as needed. Dissolve dose in 4 - 8 ounces of liquid and take as directed. LABORATORY VALUES: WBC (k/uL) Date Value 11/10/2023 7.03 RBC (m/uL) Date Value 11/10/2023 2.93 (L) Hemoglobin (g/dL) Date Value 11/10/2023 10.7 (L) Hematocrit (%) Date Value 11/10/2023 31.4 (L) MCV (fL) Date Value 11/10/2023 107.2 (H) MCH (pg) Date Value 11/10/2023 36.5 (H) MCHC (g/dL) Date Value 11/10/2023 34.1 RDW-CV (%) Date Value 11/10/2023 16.9 (H) Platelet Count (k/uL) Date Value 11/10/2023 272 MPV (fL) Date Value 11/10/2023 9.3 Glucose (mg/dL) Date Value 11/10/2023 123 (H) BUN (mg/dL) Date Value 11/10/2023 48 (H) Creatinine (mg/dL) Date Value 11/10/2023 15.24 (H) Sodium (mmol/L) Date Value 11/10/2023 140 Potassium (mmol/L) Date Value 11/10/2023 3.5 (L) Chloride (mmol/L) Date Value 11/10/2023 97 (L) CO2 (mmol/L) Date Value 11/10/2023 31 (H) Protein, Total (g/dL) Date Value 11/10/2023 6.2 (L) Albumin (g/dL) Date Value 11/10/2023 4.4 Calcium, Total (mg/dL) Date Value 11/10/2023 9.7 Alkaline Phosphatase (U/L) Date Value 11/10/2023 125 (H) Bilirubin, Total (mg/dL) Date Value 11/10/2023 0.4 AST (U/L) Date Value 11/10/2023 22 ALT (U/L) Date Value 11/10/2023 16 Cholesterol, Total (mg/dL) Date Value 09/15/2023 133 Triglyceride (mg/dL) Date Value 09/15/2023 155 (H) DIAGNOSIS: (N18.6, D63.1, Z99.2) Anemia in chronic kidney disease, on chronic dialysis (HCC) (primary encounter diagnosis) (M31.31) 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 with renal involvement ([facility]) PAST MEDICAL HISTORY 01/13/2023: Anemia in chronic kidney disease, on chronic dialysis ([facility]) No date: Class 1 obesity in adult No date: DVT (deep venous thrombosis) ([facility]) No date: ESRD (end stage renal disease) ([facility]) No date: Granulomatosis with polyangiitis with renal involvement ([facility]) No date: History of transfusion No date: RSV infection No date: Seizure (HCC) No date: Stroke (HCC) PAST SURGICAL HISTORY No date: SECTION HX No date: TONSILLECTOMY HX Social History Tobacco Use Smoking status: Never Passive exposure: Never Smokeless tobacco: Never Vaping Use Vaping status: Never Used Substance Use Topics Alcohol use: Not Currently Drug use: Not Currently FAMILY HISTORY Problem Relation Age of Onset Diabetes Mother Hypertension Mother Hyperlipidemia Father Hypertension Father Diabetes Maternal Grandmother Cancer Paternal Grandmother breast Cancer Paternal Grandfather mouth & throat I spent a total of 20 minutes on the date of service which included preparing to see the patient, [id number] patient care, completing clinical documentation, performing a medically appropriate examination, counseling and educating the patient/family/caregiver, independently interpreting results (not separately reported), and communicating results to the patient/family/caregiver. Natali Child MD, CPE Hematology and Oncology Services Provided at: [place], [place] CC: [address] [facility] [id number] Jeffrey Del Cid MD [address] [facility] [id number] documented in this encounter [facility] 11-09-2023 Note Addended by: KATHY POST on: 11/09/2023 03:04 PM Modules accepted: Orders [facility] 11-09-2023 Miscellaneous Notes Addended by: KATHY POST on: 11/09/2023 03:04 PM Modules accepted: Orders documented in this encounter [facility] 11-08-2023 Telephone encounter Note Sent listing letter out to patient. Lisa [facility] 11-08-2023 Miscellaneous Notes Sent listing letter out to patient. Lisa documented in this encounter [facility] 11-05-2023 Telephone encounter Note ABO Verification prior to Listing: Nurse spoke with pt and notified pt of listing status and provided [facility] Coord name and number. Pt listed inactive status for multiple CVA's. Cleared to work up LD. YORDAN Salmeronin Gerald's ABO blood type has been verified using source documentation from samples: drawn on two separate occasions with different collection times submitted as separate samples The results of these samples are the same and indicate that the patient's ABO blood type is: A. Transplant Coordinators performing verification: YORDAN Salmeron RN Patient has been added to the [facility] waiting list. Kenny Orozco RN Pre-Lands Resource Manager [facility] 11-05-2023 Miscellaneous Notes ABO Verification prior to Listing: Nurse spoke with pt and notified pt of listing status and provided [facility] Coord name and number. Pt listed inactive status for multiple CVA's. Cleared to work up LD. YORDAN Salmeron's ABO blood type has been verified using source documentation from samples: drawn on two separate occasions with different collection times submitted as separate samples The results of these samples are the same and indicate that the patient's ABO blood type is: A. Transplant Coordinators performing verification: YORDAN Salmeron RN Patient has been added to the [facility] waiting list. Kenny Orozco RN Pre-Lands Resource Manager documented in this encounter [facility] 11-03-2023 History of Present illness Narrative Hgb 11.3 today. Pt does not qualify for Retacrit today. Pt informed and verbalizes understanding. Amina Christine RN documented in this encounter [facility] 11-03-2023 Note [facility] 11-01-2023 Telephone encounter Note Informed Mita De Santiagob that the Kidney/Pancreas Selection Committee approved them to be listed for a kidney transplant. Informed patient that potential donors can begin work-up once they have submitted a fresh serum sample AND they are placed on the list. Gave them the Living Donor Office online web address and office phone number. [email or web address] Office Reminded Mita Duarte that if uncomfortable with donor's history, etc, they may say No without penalty. Reviewed choices that were chosen on the KDPI form with patient and updated below as needed. Types of donors patient is willing to consider: Donors that from Cardiac (DCD) Yes Hepatitis C Donors Yes Hepatitis B Core Antibody Donors No KDPI score > 85% Yes Discussed monthly serum samples, why they are needed and how to get them drawn. Informed patient that delays in providing serum can result in delays to living donor crossmatching or possibly being skipped for a donor transplant. All phone numbers confirmed with the patient Additional Information Additional testing needed: Additional consults needed: Special instructions for listing: Status 7 work up Living donors Labs will be drawn at : [facility] Patient is fully vaccinated against COVID Yes Confirm if patient is on dialysis Yes Discussed with the patient that staying up to date on ALL vaccines including the COVID-19 vaccine and Hepatitis B vaccine is strongly recommended. Kidney/Pancreas and Pancreas Alone Candidates ONLY [place] or [place] Additional Information Insulin Start Date: Amount of Insulin C Peptide level Hgb A1C level: Discussed with the patient who will be the primary coordinator for their case once they are listed: Kathy Post RN [phone]. Patient verbalized understanding of all the information that was discussed. Will move forward with the listing process for kidney transplant. Kenny Orozco RN Pre-Kidney & Pancreas Lands Resource Manager [facility] 11-01-2023 Miscellaneous Notes Informed Mita Duarte that the Kidney/Pancreas Selection Committee approved them to be listed for a kidney transplant. Informed patient that potential donors can begin work-up once they have submitted a fresh serum sample AND they are placed on the list. Gave them the Living Donor Office online web address and office phone number. [email or web address] Office Reminded Mitagil De Santiagob that if uncomfortable with donor's history, etc, they may say No without penalty. Reviewed choices that were chosen on the KDPI form with patient and updated below as needed. Types of donors patient is willing to consider: Donors that from Cardiac (DCD) Yes Hepatitis C Donors Yes Hepatitis B Core Antibody Donors No KDPI score > 85% Yes Discussed monthly serum samples, why they are needed and how to get them drawn. Informed patient that delays in providing serum can result in delays to living donor crossmatching or possibly being skipped for a donor transplant. All phone numbers confirmed with the patient Additional Information Additional testing needed: Additional consults needed: Special instructions for listing: Status 7 work up Living donors Labs will be drawn at : [facility] Patient is fully vaccinated against COVID Yes Confirm if patient is on dialysis Yes Discussed with the patient that staying up to date on ALL vaccines including the COVID-19 vaccine and Hepatitis B vaccine is strongly recommended. Kidney/Pancreas and Pancreas Alone Candidates ONLY KP or [place] Additional Information Insulin Start Date: Amount of Insulin C Peptide level Hgb A1C level: Discussed with the patient who will be the primary coordinator for their case once they are listed: Kathy Post RN [phone]. Patient verbalized understanding of all the information that was discussed. Will move forward with the listing process for kidney transplant. Kenny Orozco RN Pre-Kidney & Pancreas Lands Resource Manager [facility] documented in this encounter [facility] 10-19-2023 Telephone encounter Note Received a message from Mita that her substation designer is going to convert her to coumadin. Kenny Orozco RN [facility] 10-19-2023 Miscellaneous Notes Received a message from Mita that her substation designer is going to convert her to coumadin. Kenny Orozco RN documented in this encounter [facility] 10-18-2023 History of Present illness Narrative Radiology Service Progress Note PATIENT NAME: Mita Duarte DATE OF SERVICE: October 18, 2023 TIME: 4:02 PM PATIENT IDENTITY VERIFICATION COMPLETED USING TWO (2) IDENTIFIERS: Name and Date of confirmed by patient verbally and Name and Date of confirmed by identification band. FALL SCREENING: Has the patient had 2 falls in the last year or 1 fall with injury or currently using an Ambulatory Assistive Device (Walker, Cane, Wheelchair, Crutches, etc.)? No PATIENT GENDER DATA: Female. status: : No status: NO. PATIENT RELEVANT IMPLANT DATA REVIEWED: Not Applicable PATIENT PRESENTS WITH AN IMPLANTABLE OR ATTACHED PACKAGE MAKER: No RADIOLOGY DEPARTMENT: CT; Exam(s) Completed: Abdomen/Pelvis PERIPHERAL IV DATA: Not applicable SIGNED BY: RT Freddie(R) October 18, 2023 4:02 PM documented in this encounter [facility] 10-18-2023 Note [facility] 10-18-2023 Instructions Kenny Orozco RN - 10/18/2023 3:22 PM EDT As part of your transplant evaluation you are required to complete the following additional items. Please be aware that your evaluation will not be considered complete until all testing has been submitted. YOU WILL NOT BE LISTED ON THE TRANSPLANT LIST until these results have been received by our office, reviewed by the transplant committee and approved for transplant. You will be contacted with the decision of the transplant committee at a future date. The following will be scheduled for you at a [facility] facility: CARDIAC: Stress test CANCER SCREENING: Mammogram ADDITIONAL CONSULTS NA Imaging Studies: CT of abdomen and pelvis without contrast Miscellaneous Items: Protocol labs Will discuss at this Naveen's meeting Outside test results should be faxed to [phone]. Please review the kidney transplant educational materials on line at [email or web address] Sign-in: Kidney To check on your status of your evaluation, please contact your coordinator, Kenny Orozco RN [phone]. Kenny Orozco RN Kidney/Pancreas Pre-Lands Resource Manager [facility] documented in this encounter [facility] 10-18-2023 Note [facility] 10-18-2023 History of Present illness Narrative PSYCHOSOCIAL ON-GOING EVALUATION FOR KIDNEY TRANSPLANT SIPAT: 14 Mita Duarte was evaluated by this child welfare social worker on 12/30/2022. Mita Duarte was found to be a suitable psychosocial candidate for kidney transplant. The pt was dialysis dependent at the last assessment. DIALYSIS START DATE: Mar 2021 - PD The name of the dialysis unit is [facility]. The phone is [phone] (center) or [phone] (PD nurse - Cathy). This social work psychosocial waitlist evaluation was completed with Mita Duarte on October 18, 2023. She was accompanied by her , Spenser and 15 year old daughter, Yosef. The pt does not use assistive devices for ambulation. Race/Gender: White, Female White [] Descent [][place] or [][place] (non-Black) []White: Other [x]White: Not Specified/Unknown [place] Citizen: Yes IDENTIFYING INFORMATION/LIVING SITUATION Mita Duarte [id number] [address] [facility] [address]. The home is a multi leveled. There are not architectural barriers - bedroom is on first floor. [address] [place] [address] from [facility]. Mita Duarte has been living in this home for 7 years. Mita Duarte is independent with all ADL's. Others in household are patients and two children (ages 18 and 12). There is 1 licensed drivers in the home and 1 working vehicles. 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 Caregiver responsibilities: Yes the patients in-laws or patients parents will care for the children during the patients recovery. Pets in the home: 2 dog. Pet precautions reviewed. TRANSPLANT LODGING PLANS FOR PATIENTS WHO LIVE 2.5 OR MORE HOURS AWAY FROM [facility]: Do you have the financial means to stay in the area for four weeks or more post-transplant? NA The patient and discussed staying in the area at an Airbnb if needed. COMPLIANCE Missed doctor appointments: No issues reported. Missed/shortened/rescheduled dialysis appointments: No issues reported. Knowledge of medications: The patient has a good knowledge of her medications and there purpose. Medication Compliance: No issues reported. She uses a pill organizer that she organizes every week. Have you ever stopped taking any medication because you lost your insurance you could not afford it? No Have you stopped taking medication because you felt you didn't need it or because of side-effects? No 10/21/2023 Transplant child welfare social worker called patients dialysis center and left a voicemail with patient PD nurse to confirm continued compliance through dialysis. Last compliance check was Dec 2022 and it was confirmed the patient is compliant with PD. Have you ever been transplanted, evaluated, or listed at another center: No Potential donor: Potential - [id number] and son SUBSTANCE USE/ABUSE Alcohol: The patient reports she does not drink anymore due to health issues. Prior to this she may have had a drink once a year. This has always been her pattern. Tobacco: No Exposure to second hand smoke: No Cocaine, THC, Heroin, or Other Recreational Drug Use: No Over the Counter Medications: No Opioids/Controlled Substances: No CAGE Questionnaire Have you ever felt you should cut down on your drinking? No Have people annoyed you by criticizing your drinking? No Have you ever felt bad or guilty about your drinking? No Have you ever had a drink first thing in the morning to steady your nerves or to get rid of a hangover (eye barn hand)? No LEGAL ENCOUNTERS Currently on probation or parole: No Past or current warrants for arrest: No Substance related legal problems: No Valid drivers license:No - never obtained History of any legal issues not previously mentioned above: No MENTAL HEALTH HISTORY Affect: Appropriate/Consistent Alert: Alert Orientation: person, place and time Appearance: Unremarkable/appropriate Cognitive Function: Cognition appears relatively intact Mood: Euthymic Are you having thoughts that you would be better off , or of hurting yourself in some way? No Current mental health diagnoses / current feelings of anxiety or depression: Denies any current symptoms of anxiety or depression. Previous mental health diagnoses: No Psychiatric medication: No. Who prescribes: NA Counseling: No Psychiatric services: No History of suicide attempt(s) or ideation: No History of harming self: No History of harming others: No History of psychiatric hospitalization: No Is a referral to Transplant Psychiatry indicated for further evaluation or screening: No COPING Hobbies/Interests: The patient enjoys gardening. Coping strategies: She will do some deep breathing, process the problem and do some problem solving. Restorationist affiliation: No Stressors in life: No Ever cope by using a substance: No SOCIAL NARRATIVE See initial evaluation. EMPLOYMENT Current Employment Status: Disability. The patient started receiving disability in Oct 2021. 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 Paid Status for Recovery: Disability HEALTH INSURANCE/FINANCIAL Medical Insurance: [place] Medicaid and Medicare Payer of Insurance: Patient Prescription Coverage: Medicaid Insurance Policy Cor[place]: No Medicare Status: No. ESRD Medicare reviewed. Disability: $1400 per month Household Income: $40,000 per year (patient and ) Savings: No Pt was given a list of the medications for Kidney [place] recipients to learn how her insurance coverage applies. SW informed pt that she must be prepared to cover the copays of her immunosuppression and anti viral medications. Pt was also given information on fund raising as well. CAREGIVER/SUPPORT PLAN Primary Caregiver: Spenser, patient . He is 44 years old and works for [employer] [employer]. Contact Number: [phone] Health Status and Availability of Caregiver: good health, available as needed - can take time off of work after patient receives transplant Valid [employer] Manager's License/Working Vehicle: Yes, yes Caregiver Substance Use: No Caregiver Mental Health: No Secondary Caregiver: Manuel, patients dad. He is 70 years old and retired. Contact Number: [phone] Health Status and Availability: good health, per patient available as needed Valid [employer] Manager's License/Working Vehicle: Yes, yes (would drive to [place]) Caregiver Substance Use: No Caregiver Mental Health: No Transplant child welfare social worker confirmed patients dad as a secondary caregiver on Jan 2023. The patient states post transplant she would stay in the area for a few days if needed (lives 1 [place]/2 hours away from [place]) PSYCHOSOCIAL RISKS Adherence to Treatment Protocols: Yes Ability to Understand Transplant Center's System of Care: Yes Active Psychiatric Diagnosis: No Financial Resources or Support: Yes Body Image/Scar: No IMPRESSIONS/RECOMMENDATIONS At this time, Mita Duarte continues to be a suitable psychosocial candidate for a kidney transplant. There are no psychosocial concerns that could have a negative impact on the successful and sustained outcome of a kidney transplant. The patient will have caregiver support from her and her dad. The patient states post transplant she would stay in the area for a few days if needed (lives 1 [place]/2 hours away from [place]). The patient has [place] Medicare and Medicaid for health insurance. She receives disability. The patient shows good compliance through PD. There were no mental health or substance use barriers identified. The patient, her and 15 year old daughter presented as friendly and focused on the evaluation. The patient should be scheduled for yearly visits and/or phone contact with social work for the following purposes: to review health insurance, changes of caregiver support, changes in financial/employment status, and past or current issues with alcohol or drug use. We reviewed the follow up care sequence, including lab work twice a week and twice a week post transplant clinic appointments. We discussed the precautions to take because of being immunosuppressed. We also discussed the need to have a caregiver multimedia services manager for 2 weeks post transplant. Mita Duarte was advised that it is imperative to adhere to the medical regimen and recovery restrictions. Mita Duarte indicated understanding of this information. Mita Duarte had the opportunity to discuss any issues and questions. Patient was given information and brochures about the kidney transplant process and fund raising options. The patient was given the phone number of the transplant child welfare social worker to address future concerns. Rosaura Andres, MSSA, DIAL PAINTER, CCTSW Transplant Healthcare Facility Administrator documented in this encounter [facility] 10-18-2023 History of Present illness Narrative [facility] Transplant Evaluation CC: Consultation for Kidney transplant evaluation. Referred by: MD [address] [facility] [address] I will communicate with the referring provider by letter and/or shared electronic medical record. HPI: 43 yo female here for ktxp ongoing evaluation. ESRD sec [facility] bx proven. Hemo dialysis started July 2021 transitioned to PD September 2021. Presented at [facility] September 29, 2023 approved pending RTC prior to listing. Recently reported having a TIA in September 2023.. Previously pt was approved in 2021 but listing delayed b/c dental clearance required for insurance and while pt was working on dental clearance pt had a CVA (May 2022) then seizure (July 2022). Now returning to see the team prior to listing. Also has hx of Anemia, HTN, DVT, blood transfusion, tonsillectomy, caesarian surgery, lung nodules, osteomalacia, obesity and PTH. Last seen in December 2022. Pt has LD. Hemodialysis: July 2021 then PD since September 2021 UOP: >1 Cup per day LD: yes (family) Blood transfusion:Yes Blood thinner: Eliquis Last hospitalization: September 2023 for TIA midodrine: Denies Hernia: Denies Abdominal surgery: PD Placement, cholecystectomy and DVT: Apr 2022. Per progress note thrombus in the great and small saphenous and varicose veins of the left lower extremity skin cancers: denies UTI: >2 years ago Kidney stones:Denies G 3 P 2 D & C x 1 CVA (May 2022), taking Eliquis currently then seizure (July 2022). Currently following with GI for epigastric pain, nausea, vomiting, lightheadedness and and dry cough. Neurology October 14, 2023 IMPRESSION TIA - left side numbness and weakness - lasted about 8 hours sudden onset noted neglect of left side as well. Full resolved. Has been compliant with Eliquis, CTA unremarkable Left MCA distribution embolic appearing stroke of undetermined source. Not related to and no evidence of [employer] vasculitis In the context of normal appearing vessels, a cardioembolic source such as occult atrial fibrillation remains highest on the differential diagnosis as SYLVESTER was negative for any PFO or structural cardioembolic source. 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 Continue management of 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 Blood pressure goal <130/80 Diet and regular exercise Return to ER for new sx Follow up as needed Joanne Overton APRN.CNP Cardiovascular Disease: No Peripheral Arterial Disease: (TIA non-embolic, CVA non-embolic, amputation, carotid artery stenosis, abnormal PVRs, claudication history, decreased pulses, etc.):yes Stroke: YES Claudication: NO Carotid Artery Stenosis: NO DM: No Prior transplant: No CKD: Yes: Cause of CKD: [facility] Peritoneal dialysis, start date: 09/2021 Living Donors: Yes Residual UO: <1 Cup per day Hypercoagulable (history of DVT/PE, miscarriages, prior use of anticoagulation, etc.):Yes Malignancy (including skin cancer): No PAST MEDICAL HISTORY 01/13/2023: Anemia in chronic kidney disease, on chronic dialysis (HCC) No date: Class 1 obesity in adult No date: DVT (deep venous thrombosis) (HCC) No date: ESRD (end stage renal disease) ([facility]) No date: 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) No date: History of transfusion No date: RSV infection No date: Seizure (HCC) No date: Stroke (HCC) PAST SURGICAL HISTORY No date: SECTION HX No date: TONSILLECTOMY HX Current Outpatient Medications Medication Sig cinacalcet (SENSIPAR) 30 mg tablet Take 30 mg by mouth three times a week. azaTHIOprine (IMURAN) 50 mg tablet Take 1 tablet by mouth two times a day. amLODIPine (NORVASC) 2.5 mg tablet Take 2.5 mg by mouth once daily. lamoTRIgine ER (LAMICTAL XR) 100 mg 24 hr tablet Take 1 tablet by mouth two times a day. ondansetron (ZOFRAN) 8 mg tablet Take 8 mg by mouth three times a day as needed. atorvastatin (LIPITOR) 40 mg tablet Take [address] (PROTONIX) 40 mg tablet Take 1 tablet by mouth every 12 hours. folic acid 1 mg tablet (Patient not taking: Reported on 08/18/2023) apixaban (ELIQUIS) 2.5 mg tab(s) Take by mouth twice daily. lanthanum (FOSRENOL) 1,000 mg chewable tablet metoprolol tartrate, short acting, (LOPRESSOR) 25 mg tablet Take 25 mg by mouth two times a day. DIALYVITE 100-1 mg tab Take 1 tablet by mouth once daily. gentamicin 0.1% 0.1 % cream Apply to affected area as needed. polyethylene glycol 3350 (MIRALAX, GLYCOLAX) 17 gram/dose powder Take by mouth as needed. Dissolve dose in 4 - 8 ounces of liquid and take as directed. No current facility-administered medications for this visit. FAMILY HISTORY Problem Relation Age of Onset Diabetes Mother Hypertension Mother Hyperlipidemia Father Hypertension Father Diabetes Maternal Grandmother Cancer Paternal Grandmother breast Cancer Paternal Grandfather mouth & throat Family Status Relation Name Status Mo Alive Fa Alive MGMo MGFa PGMo PGFa Social History Tobacco Use Smoking status: Never Passive exposure: Never Smokeless tobacco: Never Vaping Use Vaping Use: Never used Substance Use Topics Alcohol use: Not Currently Drug use: Not Currently Pre-transplant testing: EC10/18/2023 Diagnosis: NORMAL SINUS RHYTHM NORMAL ECG ECHO 03/11/2023 CONCLUSIONS: - Technically difficult exam due to body habitus. - Exam indication: Pre kidney transplant - The left ventricle is normal in size. There is mild left ventricular hypertrophy. Left ventricular systolic function is mildly decreased. EF = 48 5% (2D biplane) Grade I left ventricular diastolic dysfunction. - The right ventricle is normal in size. Right ventricular systolic function is normal. - Estimated right ventricular systolic pressure is not reported due to an insufficient tricuspid regurgitation signal. Estimated right atrial pressure is 8 mmHg based on IVC assessment. - Exam was compared with the prior echocardiographic exam performed on 12/25/2021. No significant change. NM Stress test 12/25/2021 CONCLUSIONS: 1. SPECT Perfusion Study: Normal. 2. There is no scintigraphic evidence for inducible ischemia. 3. No evidence of scarred myocardium. 4. Left ventricle is normal in size. The left ventricle systolic function is normal. 5. Right ventricle is normal in size. The right ventricle systolic function is normal. 6. This is a low risk scan. Gated Stress FBP LVEF % 67 Ct chest 04/12/2021 Repeating Smooth symmetric bilateral interlobular septal thickening with edema Tree in bud opacities in right upper lobe Ill defining patchy ground glass opacities in right middle and upper lobes alveolar hemorrhage vs multi focal pneumonia Splenomegaly CT Chest: 03/14/2023 IMPRESSION: No acute pulmonary disease. MRA Brain:10/05/2023 IMPRESSION: No gross acute intracranial changes. There are multiple areas of prior ischemic insult at both cerebral hemispheres and left cerebellum as described above CT A/P 04/11/2021 Will repeat today FINDINGS: No visualized lower thoracic abnormalities The nonenhanced liver, spleen and stomach, gallbladder, pancreas and adrenal glands are unremarkable. 2.3 rum cyst within the posterior superior pole the left kidney (axial 35). No renal calcification, hydronephrosis or perinephric collection. No bowel obstruction, bowel wall thickening or peribowel inflammatory stranding. No mesenteric collection or free intraperitoneal air or fluid. No free pelvic air or fluid. The bladder is decompressed. No discrete pelvic calcification_ 18 mm transverse fat-containing umbilical hernia. Nonspecific soft tissue edema of the lower abdominal soft tissues with no loculated collection, mats or cyst. The osseous structures are unremarkable. Kidney biopsy 04/18/2021 26 glomeruli, 21 with crescents and extensive injury. 4 cellula, 17 fibrocellular with ruptured manjarrez 'capsules. 6 with segmental sclerosis and 3 fibrinoid necrosis. One with interlobular artery with fibrinoid necrosis. Neg IF and EM Mammogram screening w/[facility] 07/08/2022 IMPRESSION: BIRADS 0 - Incomplete. Need additional imaging evaluation. Nodular asymmetry in the slightly inner left breast at mid depth. A diagnostic study is recommended to include spot compression left CC tomosynthesis, left lateral full field tomosynthesis, and possible ultrasound. OVERALL ASSESSMENT- INCOMPLETE Mammogram: 10/06/2022 scheduled IMPRESSION: Left breast asymmetry is likely benign fibroglandular tissue. Six-month left mammogram recommended to ensure stability. Patient was notified of results at time of exam. BI-RADS: 3 - Probably benign Follow up: Left breast six-month mammogram follow-up. PAP 11/05/2021 NEGATIVE FOR INTRAEPITHELIAL LESION OR MALIGNANCY HPV 11/05/2021 Negative Colonoscopy: Not applicable Sensitizations: Prior transplant: No Blood transfusions: Yes : Yes Rabbit: Yes: PET Immunizations: HBV series: Received, date 07/10/2021 , 06/12/2021 Pneumovax: Received, date 04/24/2021 Influenza vaccine: Received, date 01/08/2022 Covid vaccine: Received, date 07/02/20 & 06/09/2020 Kenny Orozco RN Seen by BP 106/66 Pulse 79 Temp 36.6 C (97.9 F) (Temporal) Ht 152.4 cm (5') Wt 72.8 kg (160 lb 7.9 oz) LMP (LMP Unknown) SpO2 100% BMI 31.34 kg/m Exclusion criteria for HCV organs (IF POTENTIAL RECIPIENT MEETS ANY OF THESE CRITERIA, THEY ARE EITHER NOT ELIGIBLE, OR THEY MUST SEE HEPATOLOGY FOR INFORMED CONSENT) [] HCV-RNA positive (such individuals may receive HCV donor positive organs, but are not part of this D+/R- program) [] HIV Infection [] Evidence of cirrhosis by imaging or biopsy [] or lactating women [] Prior surgery with altered gastroduodenal anatomy (Gastric bypass, Gastric sleeve) [] Required continued use of certain medications that may interfere with DAA absorption including: [] Statins [] PPI if dose required is > 20mg per day [] Amiodarone [] Anticonvulsants/mood stabilizers (eg: carbamazepine, phenytoin, oxcarbazine) [] Digoxin [] Current severe systemic infection [] Current illicit drug use Informed Consent for the option of considering an HCV positive organ MUST CHOOSE ONE OF THE OPTIONS BELOW [x] Yes, the patient is interested. Mita Duarte wishes to pursue the option of obtaining a HCV positive organ. Advantages and disadvantages of HCV viremic donor transplantation were reviewed. Patient received education on the risk of transmission of HCV following HCV viremic donor transplantation, the natural history of HCV, current therapies for HCV, side effects of therapy, and need for monitoring during and after therapy for HCV. Provided pt with educational slide packet and handout titled Transplantation of Hepatitis C Viremic Organs into Hepatitis C Negative Recipients . The risks of HCV transmission post-transplant, fibrosing cholestatic HCV, treatment failure, chronic HCV, cirrhosis and hepatic and non-hepatic manifestations of acute and chronic HCV were specifically discussed. Patient verbalized understanding of the risks and benefits of receiving a hepatitis C viremic organ and provided verbal consent to be enrolled in the protocol. All their questions were answered. [] No, the patient is not interested in this option. [] The patient would like more time to consider this option. Patient has been educated and can call back regarding accepting or declining this option. Staff: I have interviewed the patient and confirmed the historical details above. HPI above by me. REVIEW OF SYSTEMS: All other reviewed and negative other than HPI. Functional capacity: >4.0, <8.0 moderate effort such as carrying 15lb KARNOFSKY INDEX SCALE (Adult patients aged 18 and older) - Used to rate a patient's functional status before and after a medical procedure: 70 - Cares for self: unable to carry on normal activity or do active work. Unable to go to school or work. PHYSICAL EXAMINATION: Blood pressure 106/66, pulse 79, temperature 36.6 C (97.9 F), temperature source Temporal, height 152.4 cm (5'), weight 72.8 kg (160 lb 7.9 oz), SpO2 100%. Head and neck: NAD op clear, no john, no carotid bruits, nl thyroid CVS: rrr [id number] w/o mrg Lungs: cta bilat Abd: soft, nt, nd, bs+, no HSM; no abd bruits, PD cath MS: no active synovitis, no muscle tenderness Skin: no skin lesions, no cyanosis no peripheral edema Vascular: preserved pulses Neuro: non focal Labs/Studies: Cancer Screening: Type of Cancer: Screening Criteria: Cervical Females age 21-29: PAP Q3yrs; HPV if PAP abnormal Females age 30-65: PAP & HPV Q5yrs; OR PAP only Q3yrs Breast Females age 20-39: Clinical Breast Exam Q3yrs Females age 40+: Mammogram & Clinical Breast Exam Q1yr Prostate Males age 40+: PSA will be checked at evaluation Colon All patients age 50+: colonoscopy Q10yrs or as recommended based on results Lung Patients meeting all of the following criteria will be scheduled for a Chest CT without Contrast at evaluation if they have not had a Chest CT within the past year: 1. Age 55-74 2. Have at least a 30 pack-year smoking history 3. Are still smoking OR have quit smoking within the last 15 yrs Patients that do not meet the criteria above or who had a Chest CT within the past year will have a CXR PA & Lat at evaluation. Skin All patients: Skin will be examined at evaluation Based upon the above screening criteria, the patient will require: No additional testing is needed at this time. Patient is up to date with cancer screening. 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 Patient was recently present to committee and approved however she developed a new TIA soon after approval therefore she is here for follow-up. Patient has full evaluation including imaging of the head and coronary arteries which has been negative. She has been diagnosed with cryptogenic TIA/CVA. Recently seen by neurology here at [facility] no follow-up recommendations. Discussed with patient that TIA/CVA will continue to call after transplantation continues to have a cause that could be treated. Patient is also on Eliquis but she states that she has 2 potential living donors therefore unless they do not now she needs donor she will continue on Eliquis. Otherwise she will need to switch to warfarin. Needs mammogram, and by December she should update echocardiogram and stress test. The patient is a good candidate for kidney transplantation. We had the opportunity to discuss the following, specific for this patient: 1) Risks and benefits of transplantation including overall average increase in life expectancy and higher quality of life with transplantation for most recipients but not all; however, there is during the immediate transplant period a higher risk of over staying on dialysis that is variable depending on recipient and donor factors. 2) Types of donor organs, including possibility of living donors, donors, donor quality as assessed by KDPI (higher KDPI being lower quality with especial attention to those organs with KDPI >85%), hep C donors, donor after cardiac (DCD) and CDC Increased risk donor types, with relative benefit of living donation over donor transplantation explained. 3) Detailed discussion regarding immunosuppression following transplantation, including usual protocols and drugs involved. This included the risks of infection, possibly life threatening, and malignancy. We also discussed possible need for dialysis post-transplant and re-admission to the hospital. 4) Post-transplant care and compliance with medical treatment, noting that this is very important for optimal transplant outcomes. 5) Possible recurrence of disease which depending on condition it could lead to graft failure. Patient expresses understanding of the information discussed. Given her current issues, we plan: 1. Labs per protocol 2. Neurology clearance 3. Mammogram 4. Update cardiac stress test by Dec 2023. Opportunity to ask questions given. Appears to understand. Communication with referring provider done by letter. Roque Roman MD documented in this encounter [facility] 10-18-2023 Note [facility] 10-18-2023 Note [facility] 10-18-2023 History of Present illness Narrative [facility] Transplant Evaluation CC: Consultation for Kidney transplant evaluation. Referred by: Delma Osorio MD [address] [facility] [address] I will communicate with the referring provider by letter and/or shared electronic medical record. HPI: 43 yo female here for ktxp ongoing evaluation. ESRD sec [facility] bx proven. Hemo dialysis started July 2021 transitioned to PD September 2021. Presented at [facility] September 29, 2023 approved pending RTC prior to listing. Recently reported having a TIA in September 2023.. Previously pt was approved in 2021 but listing delayed b/c dental clearance required for insurance and while pt was working on dental clearance pt had a CVA (May 2022) then seizure (July 2022). Now returning to see the team prior to listing. Also has hx of Anemia, HTN, DVT, blood transfusion, tonsillectomy, caesarian surgery, lung nodules, osteomalacia, obesity and PTH. Last seen in December 2022. Pt has LD. Hemodialysis: July 2021 then PD since September 2021 UOP: >1 Cup per day LD: yes (family) Blood transfusion:Yes Blood thinner: Eliquis Last hospitalization: September 2023 for TIA midodrine: Denies Hernia: Denies Abdominal surgery: PD Placement, cholecystectomy and DVT: Apr 2022. Per progress note thrombus in the great and small saphenous and varicose veins of the left lower extremity skin cancers: denies UTI: >2 years ago Kidney stones:Denies G 3 P 2 D & C x 1 CVA (May 2022), taking Eliquis currently then seizure (July 2022). Currently following with GI for epigastric pain, nausea, vomiting, lightheadedness and and dry cough. Neurology October 14, 2023 IMPRESSION TIA - left side numbness and weakness - lasted about 8 hours sudden onset noted neglect of left side as well. Full resolved. Has been compliant with Eliquis, CTA unremarkable Left MCA distribution embolic appearing stroke of undetermined source. Not related to and no evidence of [employer] vasculitis In the context of normal appearing vessels, a cardioembolic source such as occult atrial fibrillation remains highest on the differential diagnosis as SYLVESTER was negative for any PFO or structural cardioembolic source. 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 Continue management of 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 Blood pressure goal <130/80 Diet and regular exercise Return to ER for new sx Follow up as needed Joanne Overton APRN.CNP Cardiovascular Disease: No Peripheral Arterial Disease: (TIA non-embolic, CVA non-embolic, amputation, carotid artery stenosis, abnormal PVRs, claudication history, decreased pulses, etc.):yes Stroke: YES Claudication: NO Carotid Artery Stenosis: NO DM: No Prior transplant: No CKD: Yes: Cause of CKD: [facility] Peritoneal dialysis, start date: 09/2021 Living Donors: Yes Residual UO: <1 Cup per day Hypercoagulable (history of DVT/PE, miscarriages, prior use of anticoagulation, etc.):Yes Malignancy (including skin cancer): No PAST MEDICAL HISTORY 01/13/2023: Anemia in chronic kidney disease, on chronic dialysis (HCC) No date: Class 1 obesity in adult No date: DVT (deep venous thrombosis) (HCC) No date: ESRD (end stage renal disease) ([facility]) No date: 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) No date: History of transfusion No date: RSV infection No date: Seizure (HCC) No date: Stroke (HCC) PAST SURGICAL HISTORY No date: SECTION HX No date: TONSILLECTOMY HX Current Outpatient Medications Medication Sig cinacalcet (SENSIPAR) 30 mg tablet Take 30 mg by mouth three times a week. azaTHIOprine (IMURAN) 50 mg tablet Take 1 tablet by mouth two times a day. amLODIPine (NORVASC) 2.5 mg tablet Take 2.5 mg by mouth once daily. lamoTRIgine ER (LAMICTAL XR) 100 mg 24 hr tablet Take 1 tablet by mouth two times a day. ondansetron (ZOFRAN) 8 mg tablet Take 8 mg by mouth three times a day as needed. atorvastatin (LIPITOR) 40 mg tablet Take [address] (PROTONIX) 40 mg tablet Take 1 tablet by mouth every 12 hours. folic acid 1 mg tablet (Patient not taking: Reported on 08/18/2023) apixaban (ELIQUIS) 2.5 mg tab(s) Take by mouth twice daily. lanthanum (FOSRENOL) 1,000 mg chewable tablet metoprolol tartrate, short acting, (LOPRESSOR) 25 mg tablet Take 25 mg by mouth two times a day. DIALYVITE 100-1 mg tab Take 1 tablet by mouth once daily. gentamicin 0.1% 0.1 % cream Apply to affected area as needed. polyethylene glycol 3350 (MIRALAX, GLYCOLAX) 17 gram/dose powder Take by mouth as needed. Dissolve dose in 4 - 8 ounces of liquid and take as directed. No current facility-administered medications for this visit. FAMILY HISTORY Problem Relation Age of Onset Diabetes Mother Hypertension Mother Hyperlipidemia Father Hypertension Father Diabetes Maternal Grandmother Cancer Paternal Grandmother breast Cancer Paternal Grandfather mouth & throat Family Status Relation Name Status Mo Alive Fa Alive MGMo MGFa PGMo PGFa Social History Tobacco Use Smoking status: Never Passive exposure: Never Smokeless tobacco: Never Vaping Use Vaping Use: Never used Substance Use Topics Alcohol use: Not Currently Drug use: Not Currently Pre-transplant testing: EC10/18/2023 Diagnosis: NORMAL SINUS RHYTHM NORMAL ECG ECHO 03/11/2023 CONCLUSIONS: - Technically difficult exam due to body habitus. - Exam indication: Pre kidney transplant - The left ventricle is normal in size. There is mild left ventricular hypertrophy. Left ventricular systolic function is mildly decreased. EF = 48 5% (2D biplane) Grade I left ventricular diastolic dysfunction. - The right ventricle is normal in size. Right ventricular systolic function is normal. - Estimated right ventricular systolic pressure is not reported due to an insufficient tricuspid regurgitation signal. Estimated right atrial pressure is 8 mmHg based on IVC assessment. - Exam was compared with the prior echocardiographic exam performed on 12/25/2021. No significant change. NM Stress test 12/25/2021 CONCLUSIONS: 1. SPECT Perfusion Study: Normal. 2. There is no scintigraphic evidence for inducible ischemia. 3. No evidence of scarred myocardium. 4. Left ventricle is normal in size. The left ventricle systolic function is normal. 5. Right ventricle is normal in size. The right ventricle systolic function is normal. 6. This is a low risk scan. Gated Stress FBP LVEF % 67 Ct chest 04/12/2021 Repeating Smooth symmetric bilateral interlobular septal thickening with edema Tree in bud opacities in right upper lobe Ill defining patchy ground glass opacities in right middle and upper lobes alveolar hemorrhage vs multi focal pneumonia Splenomegaly CT Chest: 03/14/2023 IMPRESSION: No acute pulmonary disease. MRA Brain:10/05/2023 IMPRESSION: No gross acute intracranial changes. There are multiple areas of prior ischemic insult at both cerebral hemispheres and left cerebellum as described above CT A/P 04/11/2021 Will repeat today FINDINGS: No visualized lower thoracic abnormalities The nonenhanced liver, spleen and stomach, gallbladder, pancreas and adrenal glands are unremarkable. 2.3 rum cyst within the posterior superior pole the left kidney (axial 35). No renal calcification, hydronephrosis or perinephric collection. No bowel obstruction, bowel wall thickening or peribowel inflammatory stranding. No mesenteric collection or free intraperitoneal air or fluid. No free pelvic air or fluid. The bladder is decompressed. No discrete pelvic calcification_ 18 mm transverse fat-containing umbilical hernia. Nonspecific soft tissue edema of the lower abdominal soft tissues with no loculated collection, mats or cyst. The osseous structures are unremarkable. Kidney biopsy 04/18/2021 26 glomeruli, 21 with crescents and extensive injury. 4 cellula, 17 fibrocellular with ruptured manjarrez 'capsules. 6 with segmental sclerosis and 3 fibrinoid necrosis. One with interlobular artery with fibrinoid necrosis. Neg IF and EM Mammogram screening w/[facility] 07/08/2022 IMPRESSION: BIRADS 0 - Incomplete. Need additional imaging evaluation. Nodular asymmetry in the slightly inner left breast at mid depth. A diagnostic study is recommended to include spot compression left CC tomosynthesis, left lateral full field tomosynthesis, and possible ultrasound. OVERALL ASSESSMENT- INCOMPLETE Mammogram: 10/06/2022 scheduled IMPRESSION: Left breast asymmetry is likely benign fibroglandular tissue. Six-month left mammogram recommended to ensure stability. Patient was notified of results at time of exam. BI-RADS: 3 - Probably benign Follow up: Left breast six-month mammogram follow-up. PAP 11/05/2021 NEGATIVE FOR INTRAEPITHELIAL LESION OR MALIGNANCY HPV 11/05/2021 Negative Colonoscopy: Not applicable Sensitizations: Prior transplant: No Blood transfusions: Yes : Yes Rabbit: Yes: PET Immunizations: HBV series: Received, date 07/10/2021 , 06/12/2021 Pneumovax: Received, date 04/24/2021 Influenza vaccine: Received, date 01/08/2022 Covid vaccine: Received, date 07/02/20 & 06/09/2020 Kenny Orozco RN Seen by LMP (LMP Unknown) Exclusion criteria for HCV organs (IF POTENTIAL RECIPIENT MEETS ANY OF THESE CRITERIA, THEY ARE EITHER NOT ELIGIBLE, OR THEY MUST SEE HEPATOLOGY FOR INFORMED CONSENT) [] HCV-RNA positive (such individuals may receive HCV donor positive organs, but are not part of this D+/R- program) [] HIV Infection [] Evidence of cirrhosis by imaging or biopsy [] or lactating women [] Prior surgery with altered gastroduodenal anatomy (Gastric bypass, Gastric sleeve) [] Required continued use of certain medications that may interfere with DAA absorption including: [] Statins [] PPI if dose required is > 20mg per day [] Amiodarone [] Anticonvulsants/mood stabilizers (eg: carbamazepine, phenytoin, oxcarbazine) [] Digoxin [] Current severe systemic infection [] Current illicit drug use Informed Consent for the option of considering an HCV positive organ MUST CHOOSE ONE OF THE OPTIONS BELOW [x] Yes, the patient is interested. Mita Duarte wishes to pursue the option of obtaining a HCV positive organ. Advantages and disadvantages of HCV viremic donor transplantation were reviewed. Patient received education on the risk of transmission of HCV following HCV viremic donor transplantation, the natural history of HCV, current therapies for HCV, side effects of therapy, and need for monitoring during and after therapy for HCV. Provided pt with educational slide packet and handout titled Transplantation of Hepatitis C Viremic Organs into Hepatitis C Negative Recipients . The risks of HCV transmission post-transplant, fibrosing cholestatic HCV, treatment failure, chronic HCV, cirrhosis and hepatic and non-hepatic manifestations of acute and chronic HCV were specifically discussed. Patient verbalized understanding of the risks and benefits of receiving a hepatitis C viremic organ and provided verbal consent to be enrolled in the protocol. All their questions were answered. [] No, the patient is not interested in this option. [] The patient would like more time to consider this option. Patient has been educated and can call back regarding accepting or declining this option. REVIEW OF SYSTEMS: Comprehensive ROS obtained and negative unless noted in above HPI PHYSICAL EXAM: LMP (LMP Unknown) BP: 106/66 Temp: 36.6 C (97.9 F) Temp src: Temporal Pulse: 79 SpO2: 100 % General appearance: Well appearing, alert, in no acute distress, well-hydrated, well nourished. Skin: Skin color, texture, turgor normal, no suspicious rashes or lesions Head: Normocephalic, no masses, lesions, tenderness or abnormalities Eyes: Anicteric sclera. Extraocular movements are intact. Ears: External ears normal Back: Normal exam Cardiac: RRR, no murmurs rubs or gallops Lungs:Respirations unlabored Abdomen: Normal abdominal exam, Abdomen soft, non-tender. Bowel sounds normal. No masses, organomegaly Extremities: No deformities, edema, skin discoloration, clubbing or cyanosis. Good capillary refill. Musculoskeletal: No joint swelling, deformity, or tenderness Peripheral pulses: Normal Neuro: Gait normal. Sensation grossly intact. Dialysis Access: PD cath c/d/i ASSESSMENT: ESRD sec [facility] bx proven. Hemo dialysis started July 2021 transitioned to PD September 2021 No peritonitis. Making minimal UOP Has LD H/O TIA, CVA -> no residual effects, h/o DVT as well - pt on eliquis Per pt on eliquis indefinitely No h/o PE, NM No h/o malignancy -The kidney transplant and kidney/pancreas transplant operations were discussed with the patient at length, and all questions were answered to the patient's satisfaction. Risks, benefits, and alternatives discussed. Risks discussed include but are not limited to: bleeding, infection, , NM, DVT, PE, CVA, risk of damage to surrounding structures, risk of lymphocele, urine leak, stricture, lower extremity complications, risk of bowel complications, bowel obstruction, and anastomotic leak. Also discussed the need for immunosuppressant medications for the lifetime of the allograft and the associated risks of infection and malignancy over time. PLAN: - Determine if Eliquis can be switched to coumadin at time of listing - CT pending today - Patient is a good surgical candidate for renal transplantation pending acceptable findings on the remainder of pre transplant evaluation Cathy Liu PA-C Patient was not evaluated by staff surgeon, surgeon unavailable at this time Surgeon to review case, find addendum below: documented in this encounter [facility] 10-14-2023 History of Present illness Narrative [facility] Established visit CEREBROVASCULAR HISTORY Mita Duarte is a 42 year old right-handed female who is here for follow up of a left frontal ischemic stroke in July 2022 in the background of 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. Reason for Visit: stroke Date of Last Event: 08/05/2022 History of Event: The patient reports she had sudden onset weakness in the right arm. A few minutes later she also was unable to talk. She was given IV thrombolysis at an OSH. There was no LVO. She had improvement and now some residual speech difficulty. The faster she talks, she has mild slurring of her words. She was initially treated with aspirin and plavix, then transitioned to Eliquis 2.5 mg BID since since August for stroke prevention. She reports she had a TIA described as sudden speech difficulty that lasted about 30 seconds to 1 minute. She was then changed to Eliquis 2.5 mg BID (due to kidney failure on dialysis). The patient notes she first had symptoms of 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 with sinus symptoms in December 2020, but diagnosed in Mar 2021 with a renal biopsy. She was treated with pulsed dose IVMP following her initial diagnosis. She was then on prednisone 60 mg daily, which was slowly tapered after 2 months and was completely stopped in July 2022. She was notably started on rituximab in May 2021 prior to stopping her prednisone. She stopped Rituxumab in May 2022. She was started on azathioprine 100 mg daily in May 2022, which was decreased just recently to 50 mg daily. She was switched to azathioprine from rituxumab in anticipation of kidney transplantation. 07/31/22: [facility]; patient unable to speak but nodding to yes or no questions MRIb: multifocal ischemic infarcts in the dorsal lateral L frontal lobe with smaller discontinuous areas of infarct in the R MCA territory. CTA head and neck was negative for acute findings. Started on DAPT and Lipitor 08/20/22: Returned to [facility] ED with episode of R sided facial droop and unable to speak. Resolved prior to arrival to ED. CT negative for acute findings. Was instructed to follow up in outpatient stroke. 7/14/23: Syncopal episode ~30 sec to a minute; body went rigid per . ED visit. Per shipbeat message with Dr. Tiwari: I talked to the neurologist team. They said I have a lesion on my brain they are 75% sure is causing me to have seizures. Their official diagnosis is epilepsy. Interval: Patient referred [facility] by Dr. Tiwari to see a neurologist d/t recent stroke New stroke S/S or events: Antiplatelets/Anticoagulants: Apixaban Statins: Atorvastatin Side effects: Yes - Heavy periods Refills needed: No Residual Deficits: Dysarthria Current PT/OT/ST: No therapy needs Initial Discharge Disposition: Home Current Living Situation: Home with children and Home with spouse Current use of a mobility aid for walking/getting around: None OV 10/14/23 10/04/23 admission left side neglect weakness numbness sudden onset Lasted 8 hours Full resolution Eliquis - compliant BP stable Is going on the transplant list needed clearance Medical History PAST MEDICAL HISTORY 01/13/2023: Anemia in chronic kidney disease, on chronic dialysis ([facility]) No date: Class 1 obesity in adult No date: DVT (deep venous thrombosis) ([facility]) No date: ESRD (end stage renal disease) ([facility]) No date: Granulomatosis with polyangiitis with renal involvement ([facility]) No date: History of transfusion No date: RSV infection No date: Seizure ([facility]) No date: Stroke ([facility]) Surgical History PAST SURGICAL HISTORY No date: SECTION HX No date: TONSILLECTOMY HX Family History FAMILY HISTORY Problem Relation Age of Onset Diabetes Mother Hypertension Mother Hyperlipidemia Father Hypertension Father Diabetes Maternal Grandmother Cancer Paternal Grandmother breast Cancer Paternal Grandfather mouth & throat Social History Social History Tobacco Use Smoking status: Never Passive exposure: Never Smokeless tobacco: Never Vaping Use Vaping Use: Never used Substance Use Topics Alcohol use: Not Currently Drug use: Not Currently Current Medications Current Outpatient Medications Medication Sig cinacalcet (SENSIPAR) 30 mg tablet Take 30 mg by mouth three times a week. azaTHIOprine (IMURAN) 50 mg tablet Take 1 tablet by mouth two times a day. amLODIPine (NORVASC) 2.5 mg tablet Take 2.5 mg by mouth once daily. lamoTRIgine ER (LAMICTAL XR) 100 mg 24 hr tablet Take 1 tablet by mouth two times a day. ondansetron (ZOFRAN) 8 mg tablet Take 8 mg by mouth three times a day as needed. atorvastatin (LIPITOR) 40 mg tablet Take [address] (PROTONIX) 40 mg tablet Take 1 tablet by mouth every 12 hours. folic acid 1 mg tablet (Patient not taking: Reported on 08/18/2023) apixaban (ELIQUIS) 2.5 mg tab(s) Take by mouth twice daily. lanthanum (FOSRENOL) 1,000 mg chewable tablet metoprolol tartrate, short acting, (LOPRESSOR) 25 mg tablet Take 25 mg by mouth two times a day. DIALYVITE 100-1 mg tab Take 1 tablet by mouth once daily. gentamicin 0.1% 0.1 % cream Apply to affected area as needed. polyethylene glycol 3350 (MIRALAX, GLYCOLAX) 17 gram/dose powder Take by mouth as needed. Dissolve dose in 4 - 8 ounces of liquid and take as directed. No current facility-administered medications for this visit. Allergies ALLERGIES Allergen Reactions Amoxicillin-[place]* Hives, Rash Vancomycin Itching hives PHYSICAL EXAMINATION LMP (LMP Unknown) General: Well-developed, well-nourished, in no acute distress. HEENT: Normocephalic, atraumatic. Sclerae anicteric. Oropharynx clear. Skin: No rash or ecchymoses. Neurological: Awake, alert, oriented to person, place, and time. Speech fluent, no dysarthria. Naming, repetition, recall, comprehension, calculation intact. Good attention and insight into illness. Cranial Nerves: PERRL, extraocular movements intact without nystagmus. Visual mcdonnell full. Fundoscopic examination normal with sharp optic discs bilaterally. Facial sensation and movements normal and symmetric. Palate elevates equal bilaterally. Tongue midline. Trapezius strength 5/5 bilaterally. Motor: No drift Sensation: intact to light touch Coordination: no obvious dysmetria Gait: narrow based, stable IMAGING MRI Brain 10/05/[address] chest w/o 01/02/22: 1. No suspicious pulmonary nodule or thoracic lymphadenopathy. No ground-glass or consolidative airspace opacities. 2. Interval cholecystectomy since the prior abdominal CT from 04/11/2021. Pneumobilia is new and is likely postsurgical. 3. The kidneys are small/atrophied compared to the prior abdominal CT from 04/11/2021, likely due to the patient's history of GPA/end-stage renal disease. 4. A few tiny foci of free intraperitoneal gas are probably due to peritoneal dialysis, new compared to the prior exam. MRI brain w/o 07/31/22: * Multifocal acute ischemia, notably dorsolateral left frontal lobe [MCA territory], smaller discontiguous areas right MCA territory, findings worrisome for central embolic phenomenon. * Left cerebellar encephalomalacia. * Signal abnormality left mandibular body, sequelae odontogenic disease. SYLVESTER ([facility]) 08/03/22: No left atrial appendage thrombus noted. No PFO noted on this study. No evidence of valvular vegetation noted on this study. Left Ventricle: Left ventricle appears normal in size. Wall thickness is normal. Systolic function is normal with an ejection fraction of 60-65%. No segmental wall motion abnormalities. Left Atrium: Left atrium is normal in size. The pulmonary veins appear normal with normal venous flow. There is no thrombus in the left atrial appendage. The left atrial appendage is normal. The left atrial appendage emptying velocity is normal. The interatrial septum is intact. Agitated saline bubble study revealed no evidence of right to left interatrial shunting . Right Ventricle: Right ventricular size appears normal. Systolic function is normal. Aortic Valve: The aortic valve is trileaflet. There is no regurgitation or stenosis. No vegetation present on the aortic valve. Mitral Valve: Mitral valve structure is normal. There is trace regurgitation. There is no evidence of mitral valve stenosis. No vegetation present on the mitral valve. Tricuspid Valve: No vegetation present on the tricuspid valve. Pulmonic Valve: No vegetation present on the pulmonic valve. DSA ([facility]) 08/05/22: no structural vascular abnormality to explain stroke. Specifically, no vasculitis, atherosclerosis, large vessel occlusion, distal emboli, AVM, or fistula is seen. MRI brain w/o ([facility]) 08/05/22: Evolving ischemic change within the bilateral frontal lobes, left more so than right. Extent of confluence in the left frontal lobe is somewhat greater and prior. No new sites of involvement. No hemorrhagic conversion. LABS Cholesterol: Lipid profile ([facility]) 08/01/22: Cholesterol 220 Triglycerides 421 HDL 37 VLDL 48 LDL 135 Hemoglobin A1c: 4.7 on 07/31/22 at [facility] Immunosuppression Monitoring: WBC 3.98 11/24/2022 RBC 2.01 11/24/2022 Hemoglobin 7.3 11/24/2022 Hematocrit 22.6 11/24/2022 MCV 112.4 11/24/2022 MCH 36.3 11/24/2022 MCHC 32.3 11/24/2022 RDW-CV 15.0 11/24/2022 Platelet Count 200 11/24/2022 MPV 10.6 11/24/2022 Neut% 77.3 11/24/2022 Lymph% 9.8 11/24/2022 [place]% 5.8 11/24/2022 Eosin% 0.0 05/01/2021 Baso% 0.5 11/24/2022 Abs Neut (ANC) 3.08 11/24/2022 Abs [place] 0.23 11/24/2022 Abs Eosin 0.23 11/24/2022 Abs Baso <0.03 11/24/2022 Glucose (mg/dL) Date Value 10/13/2023 107 05/01/2021 80 Potassium (mmol/L) Date Value 10/13/2023 4.1 05/27/2021 3.0 05/01/2021 4.0 Sodium (mmol/L) Date Value 10/13/2023 142 05/01/2021 133 Chloride (mmol/L) Date Value 10/13/2023 98 05/01/2021 100 CO2 (mmol/L) Date Value 10/13/2023 28 05/01/2021 19 Creatinine (mg/dL) Date Value 10/13/2023 19.57 05/01/2021 3.34 BUN (mg/dL) Date Value 10/13/2023 56 05/01/2021 17 Anion Gap (mmol/L) Date Value 10/13/2023 16 05/01/2021 14 Calcium (mg/dL) Date Value 05/01/2021 8.4 Calcium, Total (mg/dL) Date Value 10/13/2023 10.2 Protein, Total (g/dL) Date Value 10/13/2023 6.0 05/01/2021 6.3 Albumin (g/dL) Date Value 10/13/2023 4.2 05/01/2021 3.4 Bilirubin, Total (mg/dL) Date Value 10/13/2023 0.5 05/01/2021 0.4 Alkaline Phosphatase (U/L) Date Value 10/13/2023 111 05/01/2021 57 AST (U/L) Date Value 10/13/2023 16 05/01/2021 12 ALT (U/L) Date Value 10/13/2023 11 05/01/2021 12 Hepatitis: Hep B Core Ab, Total (no units) Date Value 05/01/2021 Negative Hepatitis B Core Ab, Total (no units) Date Value 12/30/2022 Negative Hep C Antibody IA (no units) Date Value 12/30/2022 Negative 04/28/2021 Negative HBsAg (no units) Date Value 04/28/2021 Initially reactive Hep B Surface Ab, Qual (no units) Date Value 12/30/2022 Negative 05/01/2021 Negative TB: TB Result (no units) Date Value 12/30/2022 Negative 04/28/2021 Negative Inflammatory: WSR (mm/hr) Date Value 05/01/2021 22 04/28/2021 32 Sed Rate, Westergren (mm/hr) Date Value 11/09/2022 120 07/21/2022 37 06/18/2022 110 CRP (mg/dL) Date Value 12/30/2022 <0.3 11/24/2022 1.2 11/09/2022 0.5 05/01/2021 1.0 04/28/2021 2.0 WILMA (no units) Date Value 06/24/2021 Negative No results found for: RUDY No results found for: SMIB No results found for: RNPIB No results found for: SSAIB No results found for: SSBIB No results found for: CANCAFL No results found for: PANCAF No results found for: CANCA No results found for: PANCA No results found for: C3 No results found for: C4 No results found for: RF No results found for: ANTID Inflammatory Markers were reviewed and are Stable ESR ranges between 40s-120s CRP mostly negative, markedly eleavted at 22.96 on 04/12/21 MPO 04/12/21 [facility]: 0 PR3 04/12/21 [facility]: 1319 (H) ANCA IFA Titer 04/12/21 [facility]: 1:640 (H) ANCA IFA Pattern 04/12/21 [facility]: c-ANCA MPO 04/14/21 [facility]: 0 PR3 04/14/21 [facility]: 1319 (H) ANCA IFA Titer 04/14/21 [facility]: 1:640 (H) ANCA IFA Pattern 04/14/21 [facility]: c-ANCA Hypercoagulable labs OSH Antithrombin 3 function 08/27/22: 125 Protein S Activity 08/27/22: 160 (H) Protein C Activity 08/27/22: 132 Anticardiolipin Ab IgG, IgA, IgM 08/05/22: negative B2GP IgA, IgM, IGG 08/05/22: negative Homocysteine 08/04/22: 20.98 (H) Folate 08/04/22: 14.6 Jak2 V617 Mutation 05/11/22: no variant detected Cryoglobulin qualitative 04/12/21: negative 72 hour CSF Labs 08/27/22 [facility] CSF RBC 0 CSF WBC 0 nucleated cells CSF Glucose 66 CSF Protein 25 CSF Oligoclonal Bands No results found for: OLIGO CSF Inflammatory No results found for: CNSIGG No results found for: CSFIGG No results found for: [id number] , CSFSR , ACECSF , CARG , CASN , CLACT CSF Infectious No results found for: HSPCRC , HSPCR , BBURT , CSFVZV , VZOPCR , CSFCUL , VDRLCF , BDGLU , ASPCSF , AFC , WESTNILECSF Renal Biopsy [facility] 04/18/2021: KIDNEY, LEFT, PERCUTANEOUS BIOPYS: -- 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 Of those with crescents, 4 are cellular crescents and 17 are fibrocellular crescents with associated rupture of Manjarrez's capsules. Of those with fibrocellular crescents, 6 show segmental sclerosis and 9 show breaks and corrugation in the GBM, and of these, 3 also demonstrate fibrinoid necrosis and 1 additionally has endocapillary fibrin thrombi. One glomerulus shows isolated secondary segmental sclerosis. In addition, one interlobular artery show fibrinoid necrosis of the vessel wall with associated inflammation. There are no immune complex deposits by IF or EM and there is no endocapillary hypercellularity. There is no anti-GBM staining by IF. 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 There is severe activity with the above-mentioned crescent formation, fibrinoid necrosis, and vasculitis of arteries. There is moderate chronicity with the above-mentioned fibrocellular crescents and segmental scars. Of note, rupture of Manjarrez's capsule is associate with irreparable injury to glomeruli. There is also diffuse interstitial edema, interstitial inflammatory infiltrate, and tubular injury that is likely in response to the glomerular insult. I have confirmed and edited as necessary, the PFSH and ROS obtained by others. IMPRESSION TIA - left side numbness and weakness - lasted about 8 hours sudden onset noted neglect of left side as well. Full resolved. Has been compliant with Eliquis, CTA unremarkable Left MCA distribution embolic appearing stroke of undetermined source. Not related to and no evidence of [employer] vasculitis In the context of normal appearing vessels, a cardioembolic source such as occult atrial fibrillation remains highest on the differential diagnosis as SYLVESTER was negative for any PFO or structural cardioembolic source. 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 Continue management of 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 Blood pressure goal <130/80 Diet and regular exercise Return to ER for new sx Follow up as needed I spent a total of 30 minutes on the date of service which included preparing to see the patient, [id number] patient care, completing clinical documentation, obtaining and/or reviewing separately obtained history, performing a medically appropriate examination, and counseling and educating the patient/family/caregiver Joanne Overton APRN.[facility] Stroke Neurology documented in this encounter [facility] 10-14-2023 Note [facility] 10-14-2023 Note [facility] 10-14-2023 History of Present illness Narrative PRE-TRANSPLANT PATIENT EDUCATION NOTE Type of Transplant: Kidney Informed Consent for Evaluation signed: To be signed upon arrival to in-person evaluation. Multiple Listing Form signed: To be signed upon arrival to in-person evaluation. READINESS TO LEARN: Cognitive Ability: Alert and oriented Motivation to Learn: Eager Interested Family Support: Unable to assess - Family not present Instruction Provided to: Patient Patient Learns Best by: Multiple Methods Factors Affecting Learning: None Physical Limitations Affecting Learning: None LEARNING RESPONSE: Diagnosis: ESRD/GN Education Topics/Teaching Points: -Discussed living donor evaluation and approval process. -Discussed the evaluation and listing process. -Discussed the different types of donors (KDPI scoring, DCD, High Risk). -Explained EPTS scoring and how it is calculated. -Explained the surgical procedure and potential complications, surgeons, hospital stay at the time of transplant. -Explained lifetime immunosuppression therapy and frequency of blood draws/labs post-op and post-op course of treatment. -Reviewed National and [facility] outcomes from the most recent [facility] center-specific report; a copy of the program summary was given to the patient. -Explained that if the transplant is not performed at a Medicare-approved transplant center it could affect the ability to have immunosuppressive medications paid under Medicare Part B. Supplemental Material: -Pre-Transplant Patient Education Folder -UNOS: Questions & Answers for Transplant Candidates about Multiple Listing and Waiting Time Transfer -UNOS: Questions & Answers for Transplant Candidates about Kidney Allocation Policy -Directions to access [facility]'s data through the [facility] website. -Informed Consent for Transplant Program Participation patient education packet -National Kidney Registry pamphlet -Covid-19 Vaccination for Transplant Candidates Method of Instruction: Group class instruction Patient/Family Response: Patient asked appropriate questions, which were answered satisfactorily. Follow-Up Plan: Complete - No need for follow-up Referral/Recommendation: None KYLEE Ramirez, RN, [facility] Pre-Lands Resource Manager documented in this encounter [facility] 10-12-2023 Telephone encounter Note Nurse called patient and discussed appointments scheduled for 804 and confirmed that she will be coming. Also answered the patient questions about her teenage daughter coming nurse explained that it totally her choice but would be most concerned when there is discussion with the doctors about her medical hx. Further explained that the waiting room maybe more comfortable but her choice. Mita verbalized her understanding. Kenny Orozco RN [facility] 10-12-2023 Miscellaneous Notes Nurse called patient and discussed appointments scheduled for 804 and confirmed that she will be coming. Also answered the patient questions about her teenage daughter coming nurse explained that it totally her choice but would be most concerned when there is discussion with the doctors about her medical hx. Further explained that the waiting room maybe more comfortable but her choice. Mita verbalized her understanding. Kenny Orozco RN documented in this encounter [facility] 10-11-2023 Telephone encounter Note Nurse called and spoke with Mita regarding ktxp evaluation. Nurse explained to Mita that MD responded to bring pt back prior to listing which was already the plan. Pt states she is ok with staying overnight to see kidney team on 10/14 in clinic. Orders placed. Pt verbalized her understanding. Kenny Orozco RN [facility] 10-11-2023 Miscellaneous Notes Nurse called and spoke with Mita regarding ktxp evaluation. Nurse explained to Mita that MD responded to bring pt back prior to listing which was already the plan. Pt states she is ok with staying overnight to see kidney team on 10/[address] [facility]. Orders placed. Pt verbalized her understanding. Kenny Orozco RN documented in this encounter [facility] 10-05-2023 Telephone encounter Note Nurse called and spoke with Mita Gerald regarding MC message stating that she had a stroke. Nurse explained that this information has been sent to Dr. Lugo for her instruction. Mita states that she has been d/c and that her local hospital feel that this was a TIA and not a stroke. According to MC message between neuro and pt images and test have already been requested. Nurse explained to pt that she was recently discussed at committee and approved pending seeing pt in early waitlist clinic appt. Pt states that she is agreeable to staying overnight for a Wednesday appt. Nurse will provide update after speaking with Dr. Lugo. Mita verbalized her understanding. Kenny Orozco RN [facility] 10-05-2023 Miscellaneous Notes Nurse called and spoke with Mita Duarte regarding MC message stating that she had a stroke. Nurse explained that this information has been sent to Dr. Lugo for her instruction. Mita states that she has been d/c and that her local hospital feel that this was a TIA and not a stroke. According to MC message between neuro and pt images and test have already been requested. Nurse explained to pt that she was recently discussed at committee and approved pending seeing pt in early waitlist clinic appt. Pt states that she is agreeable to staying overnight for a Wednesday appt. Nurse will provide update after speaking with Dr. Lugo. Mita verbalized her understanding. Kenny Orozco RN documented in this encounter [facility] 10-05-2023 Miscellaneous Notes Call placed to [facility] to request imaging push. No answer LM requesting H/N imaging from 10/03 and 10/04 be pushed to CC. Stevan Haywood RN documented in this encounter [facility] 10-05-2023 Telephone encounter Note Call placed to [facility] to request imaging push. No answer LM requesting H/N imaging from 10/03 and 10/04 be pushed to [facility]. Stevan Haywood RN [facility] 09-30-2023 Note [facility] 09-30-2023 History of Present illness Narrative Received dialysis center status inquiry form on 09/29/23. Form completed on 09/30/23 and faxed back to Nati Quick and faxed back to [phone]. Confirmation received. Pt was approved for transplant listing, however she must be seen in clinic before she is actively listed. Message also sent via [employer]. KYLEE Rivera, RN, [facility] Kidney Lands Resource Manager VCA (Uterus, Face, Hand) Lands Resource Manager documented in this encounter [facility] 09-28-2023 Telephone encounter Note Call placed to patient. She was able to work out the financials and would like to remain on Eliquis for now. She will contact our office if that changes in the future. Mita has no further questions at this time. Lise Hart RN [facility] 09-28-2023 Miscellaneous Notes Call placed to patient. She was able to work out the financials and would like to remain on Eliquis for now. She will contact our office if that changes in the future. Mita has no further questions at this time. 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 The patient's medication profile was reviewed. Please note patient is on apixaban for stroke prevention. If listed for transplant, recommend transitioning apixaban to warfarin for ease of reversal xin-transplant. Please note patient is on azathioprine 50 mg BID. Patient has documented allergies to amoxicillin-clavulanate (hives/rash) and vancomycin (hives/itching). There are no other identified medication issues that would preclude transplant in this patient. Daria Nettles, PharmD, [facility]P Pharmacy Clinical Specialist - Transplant documented in this encounter [facility] 09-24-2023 Note [facility] 09-22-2023 Note HNO ID: [id number] Author: ELAINE ASHER RN Service: ? Author Type: Registered Nurse Type: Progress Notes Filed: 09/22/2023 11:10 Note Text: Pt's Hgb 11.9, does not meet parameters for retacrit today. Pt aware. Elaine Asher RN [facility] 09-22-2023 History of Present illness Narrative Pt's Hgb 11.9, does not meet parameters for retacrit today. Pt aware. Elaine Asher RN documented in this encounter [facility] 09-02-2023 Telephone encounter Note Nurse returned phone call to [facility] regarding ktxp evaluation. Pt has completed evaluation. Committee note has been prepared and routed to the team for final review. Kenny Orozco RN [facility] 09-02-2023 Miscellaneous Notes Nurse returned phone call to [facility] regarding ktxp evaluation. Pt has completed evaluation. Committee note has been prepared and routed to the team for final review. Kenny Orozco RN documented in this encounter [facility] 08-18-2023 History of Present illness Narrative Images from the original note were not included. 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 She has had chronic leukocytosis which is primarily neutrophilic and most compatible with chronic inflammatory process. This is unlikely to be a primary hematologic abnormality or malignancy. I obtained MPN workup which is negative so far. I would be happy to investigate further with bone marrow bx. if clarification is required prior to transplant, but in the meanwhile, we will follow her conservatively. PLAN: CBC weekly, Anemia labs q 6 weeks Continue Epoietin weekly 40k units for Hgb <11.0 RTC in 12 weeks with labs and Epoietin after HPI: CASE HISTORY: Reverse Chronological Order 03/14/2023 - CT Chest: No acute pulmonary disease 02/03/2023 - Anticipated assumption of Aranesp from dialysis center 11/10/2022 - XR Chest: Lines, tubes, and devices: EKG electrodes. Lungs and pleura: The lungs are hypoinflated. No consolidation. No pleural effusion. No pneumothorax. Cardiomediastinal silhouette: Stable cardiomediastinal silhouette. Other: No acute bony abnormalities. No displaced acute fractures are detected. No definite intra-abdominal free air. 07/30/2022 - CT Head/Neck: No large vessel occlusion or high-grade stenosis in the head or neck. 01/03/2022 - Maintenance dose Rituxan 01/02/2022 - CT chest - No suspicious pulmonary nodule or thoracic lymphadenopathy. No ground-glass or consolidative airspace opacities. Interval cholecystectomy since the prior abdominal CT from 04/11/2021. Pneumobilia is new and is likely postsurgical. The kidneys are small/atrophied compared to the prior abdominal CT from 04/11/2021, likely due to the patient's history of GPA/end-stage renal disease. A few tiny foci of free intraperitoneal gas are probably due to peritoneal dialysis, new compared to the prior exam. 12/24/2022 - Sent for blood transfusion (Hgb 6.8) 09/2021 - Transaminitis - acute pancreatitis - underwent cholecystectomy 08/2021 - Started on peritoneal dialysis. 05/16/2021- 06/06/2021 - Rituxan weekly x 4 induction 04/18/2021 - Kidney biopsy: 26 glomeruli, 21 with crescents and extensive injury. 4 cellula, 17 fibrocellular with ruptured manjarrez 'capsules. 6 with segmental sclerosis and 3 fibrinoid necrosis. One with interlobular artery with fibrinoid necrosis. Neg IF and EM . 04/2021 - Anuric, vomiting - cANCA 1:640. pr3 1319. CRP 22.96 N< 1. SD rate >100. Hep neg. TB NEG. GBM abs neg 04/12/2021 - CT chest: Smooth symmetric bilateral interlobular septal thickening with edema. Tree in bud opacities in right upper lobe Ill defining patchy ground glass opacities in right middle and upper lobes alveolar hemorrhage vs multi focal pneumonia Splenomegaly 11/2020 - developed sinus infection Nasal bloody discharge. Nasal crusting - doesn't do any rinses - 3 courses of abx - unresolved.(Z pack and augmentin) Updated Visit, August 18, 2023: Mita returns today for a follow up. Her CBC shows stability overall with weekly Epoietin. She is feeling the best she has felt in 3 years with this current regimen. Updated Visit, July 07, 2023: Doing well and will be having iron added to dialysis. Doing well from anemia standpoint. Updated Visit, May 26, 2023: Mita Duarte returns for follow-up and in the bowl. She complains of chronic fatigue. She denies any cough, shortness of breath or other pulmonary complaints. She denies fevers, chills, night sweats and signs/symptoms of infection. She is still being considered for a possible transplant. Updated Visit, April 14, 2023: Mita returns today, she is feeling good. Anemia has improved, Hgb is at 10.0 today. Continue current regimen of Epoietin 40k units weekly. Updated Visit, March 03, 2023: Mita returns today with Spenser for follow up. She has been more tired the past few days, but has otherwise felt okay. We reviewed her labs, her anemia shows slight improvement. We should increase frequency of her Epoietin. Updated Visit, February 02, 2023: Mita returns today for follow up visit and Epoietin, accompanied by Spenser. She was on Augmentin for 5 days after her GI issues were deemed to be caused by an unknown infection. The issues are now nearly resolved. She reports feeling a bit better overall. Reviewed her CBC, her anemia is improving after increasing Epoietin. She qualifies again today. Updated Visit, January 13, 2023: Mita returns after blood transfusion, Hgb responded to a safer level. She is actively getting iron and Aranesp/biosimilar with dialysis. Labs are pending today, will determine need for additional iron. She felt like she had a bit more energy after the transfusions, but still feeling very tired. She has not had any iron in about a month. Receives the Aranesp every 2-3 weeks. Has a cough due to GI issues, not new. Updated Visit, December 24, 2022: Spenser is with her. 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 EGD done because can't keep down any food or drink. Lost 20 lbs since October. Working on transplant kidney. Very anemic today. - recommend transfusion Updated Visit, May 11, 2022: Abdominal pain is improving.leucocytosis is stable and is primarily composed of neutrophils. MPN workup to date is negative (BCR-ABL, JAK2 exon 12-16 sequencing), JAK2 V16F mutation is pending. She remains afebrile. 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 Has been referred for increased leukocytosis over the past few months. Is on peritoneal dialysis early August 2021 Is on epo replacement Rituxan finished 01/09/2022May - June had acute panreatitis and cholecystectomy She is scheduled to start Azathioprine in May 2022. REVIEW OF SYSTEMS Per HPI and otherwise negative by full review of organ systems. ECOG PERFORMANCE STATUS: 1 PHYSICAL EXAMINATION: Vitals: BP 124/86 Pulse 77 Temp (Src) 97.3 (Temporal) Resp 16 Ht 5' 0 (1.52m) Wt 163 lb 9.3 oz (74.2kg) SpO2 99% BMI 31.95 kg/(m^2). Body surface area is 1.77 meters squared. Exam limited to gross visualization where appropriate. Gen.: This is an age-appropriate patient in no acute distress. Head: Appears atraumatic with no visible lesions. Eyes: Pupils equally round and reactive to light, extraocular muscles are intact. Neck: Supple. Respiratory: Appears to be respiring comfortably. Neurologic: Nonfocal to gross visualization. Alert and oriented 3. Psychiatric: No evidence of inappropriate anxiety or depression. Skin: Visible areas of skin without rash, lesions, wounds or petechiae. ALLERGIES: ALLERGIES Allergen Reactions Amoxicillin-Pot Cla* Hives, Rash Vancomycin Itching hives MEDICATIONS: amLODIPine (NORVASC) 2.5 mg tablet Take 2.5 mg by mouth once daily. azaTHIOprine (IMURAN) 50 mg tablet Take 1 tablet by mouth two times a day. lamoTRIgine ER (LAMICTAL XR) 100 mg 24 hr tablet Take 1 tablet by mouth two times a day. ondansetron (ZOFRAN) 8 mg tablet Take 8 mg by mouth three times a day as needed. atorvastatin (LIPITOR) 40 mg tablet Take [address]op[address] (PROTONIX) 40 mg tablet Take 1 tablet by mouth every 12 hours. apixaban (ELIQUIS) 2.5 mg tab(s) Take by mouth twice daily. lanthanum (FOSRENOL) 1,000 mg chewable tablet metoprolol tartrate, short acting, (LOPRESSOR) 25 mg tablet Take 25 mg by mouth two times a day. DIALYVITE 100-1 mg tab Take 1 tablet by mouth once daily. gentamicin 0.1% 0.1 % cream Apply to affected area as needed. polyethylene glycol 3350 (MIRALAX, GLYCOLAX) 17 gram/dose powder Take by mouth as needed. Dissolve dose in 4 - 8 ounces of liquid and take as directed. folic acid 1 mg tablet (Patient not taking: Reported on 08/18/2023) LABORATORY VALUES: WBC (k/uL) Date Value 08/18/2023 10.55 RBC (m/uL) Date Value 08/18/2023 2.93 (L) Hemoglobin (g/dL) Date Value 08/18/2023 10.0 (L) Hematocrit (%) Date Value 08/18/2023 31.6 (L) MCV (fL) Date Value 08/18/2023 107.8 (H) MCH (pg) Date Value 08/18/2023 34.1 (H) MCHC (g/dL) Date Value 08/18/2023 31.6 RDW-CV (%) Date Value 08/18/2023 16.4 (H) Platelet Count (k/uL) Date Value 08/18/2023 308 MPV (fL) Date Value 08/18/2023 9.1 Glucose (mg/dL) Date Value 08/11/2023 113 (H) BUN (mg/dL) Date Value 08/11/2023 53 (H) Creatinine (mg/dL) Date Value 08/11/2023 16.13 (H) Sodium (mmol/L) Date Value 08/11/2023 140 Potassium (mmol/L) Date Value 08/11/2023 4.1 Chloride (mmol/L) Date Value 08/11/2023 97 CO2 (mmol/L) Date Value 08/11/2023 29 Protein, Total (g/dL) Date Value 08/11/2023 6.2 (L) Albumin (g/dL) Date Value 08/11/2023 4.1 Calcium, Total (mg/dL) Date Value 08/11/2023 10.4 (H) Alkaline Phosphatase (U/L) Date Value 08/11/2023 93 Bilirubin, Total (mg/dL) Date Value 08/11/2023 0.4 AST (U/L) Date Value 08/11/2023 15 ALT (U/L) Date Value 08/11/2023 12 Cholesterol, Total (mg/dL) Date Value 12/03/2022 94 Triglyceride (mg/dL) Date Value 12/03/2022 106 DIAGNOSIS: (N18.6, D63.1, Z99.2) Anemia in chronic kidney disease, on chronic dialysis (HCC) (primary encounter diagnosis) (M31.31) 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 with renal involvement (HCC) PAST MEDICAL HISTORY Diagnosis Date Anemia in chronic kidney disease, on chronic dialysis (HCC) 01/13/2023 Class 1 obesity in adult DVT (deep venous thrombosis) (HCC) ESRD (end stage renal disease) (HCC) 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) History of transfusion RSV infection Seizure (HCC) Stroke (HCC) PAST SURGICAL HISTORY Procedure Laterality Date SECTION HX TONSILLECTOMY HX Social History Tobacco Use Smoking status: Never Passive exposure: Never Smokeless tobacco: Never Vaping Use Vaping Use: Never used Substance Use Topics Alcohol use: Not Currently Drug use: Not Currently FAMILY HISTORY Problem Relation Age of Onset Diabetes Mother Hypertension Mother Hyperlipidemia Father Hypertension Father Diabetes Maternal Grandmother Cancer Paternal Grandmother breast Cancer Paternal Grandfather mouth & throat I spent a total of 20 minutes on the date of service which included preparing to see the patient, [id number] patient care, completing clinical documentation, performing a medically appropriate examination, counseling and educating the patient/family/caregiver, independently interpreting results (not separately reported), and communicating results to the patient/family/caregiver. Natali Child MD, CPE Hematology and Oncology Services Provided at: [facility], [place], [place] Scribe Attestation: This note was scribed by Zaida Floyd on August 18, 2023 under the direction and supervision of Dr. Natali Child. I attest that all of the information documented is correct to the best of my knowledge. Provider Attestation: I, Natali Child MD, attest that all information documented by the above scribe is correct, and was supervised by me and under my direction. CC: Te Avendaño [address] [place] [address] Jeffrey Del Cid MD [address] [place] [address] documented in this encounter [facility] 08-18-2023 Note [facility] 08-18-2023 Instructions Zaida Floyd - 08/18/2023 10:37 AM EDT CBC weekly, Anemia labs q 6 weeks Continue Epoietin weekly 40k units for Hgb <11.0 RTC in 12 weeks with labs and Epoietin after documented in this encounter [facility] 07-27-2023 Note HNO ID: [id number] Author: ESTEFANI FRIAS RN Service: ? Author Type: Registered Nurse Type: Progress Notes Filed: 07/27/2023 10:52 Note Text: No injection today d/t hgb 11.4 Estefani Frias RN [facility] 07-27-2023 History of Present illness Narrative No injection today d/t hgb 11.4 Estefani Frias RN documented in this encounter [facility] 07-14-2023 Note HNO ID: [id number] Author: ESTEFANI FRIAS RN Service: ? Author Type: Registered Nurse Type: Progress Notes Filed: 07/14/2023 11:52 Note Text: No injection today, hgb 11.5 Estefani Frias RN [facility] 07-14-2023 History of Present illness Narrative No injection today, hgb 11.5 Estefani Frias RN documented in this encounter [facility] 07-13-2023 Note [facility] 07-13-2023 History of Present illness Narrative Established patient: GPA Evaluation Date: July 13, 2023 This visit was conducted as a virtual visit. I have communicated my name and active licensure. The patient's identity and physical location were verified at the time of this visit. Either the patient or their legal benefits representative has been informed of the risks and benefits of -- and alternatives to -- treatment through a remote evaluation and consents to proceed with the evaluation remotely. 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 Nasal crusting - doesn't do any rinses Had ear fullness and but no hearing loss No eye symptoms Had cough with clear sputum No oral ulceration or nasal ulceration She had fever for a month - T max for 99 -100.7 No weight loss She had vomiting due to uremia No neuropathy, no skin rash, no joint pain or joint She felt very sick, she went to urgent care x3 times and ER in her city She had horsy voice Her voice was horsey but now improved Then in early she became aneuric for 24 hours and was vomiting a lot. c ANCA 1:640. pr3 1319. CRP 22.96 N< 1. SD rate >100. Hep neg. TB NEG. GBM abs neg Ct chest 04/12/2021 Smooth symmetric bilateral interlobular septal thickening with edema Tree in bud opacities in right upper lobe Ill defining patchy ground glass opacities in right middle and upper lobes alveolar hemorrhage vs multi focal pneumonia Splenomegaly Kidney biopsy 04/18/2021 26 glomeruli, 21 with crescents and extensive injury. 4 cellula, 17 fibrocellular with ruptured manjarrez 'capsules. 6 with segmental sclerosis and 3 fibrinoid necrosis. One with interlobular artery with fibrinoid necrosis. Neg IF and EM . Still on HD 3 times a week TTS Was pulsed with IV steroid then 2/5 since then Takes her prednisone in the morning Not on PJP prophylaxis Breathing is alrgiht - sinuess are better She is vaccinated but not boosted yet No frequent infections Was started hydralazine during her admission as needed for BP >140/90 She has two kids - tubal ligation predniosone had GI upset but controlled with omeprazole Making little bit of urine Interval history December 11, 2021 2 months ago she had acute elevation of Transaminitis - was found to have dilated bile duct- she eventually under went cholecystectomy No reaction to her RTX (05/16- 05/23-05/30, 06/06) She is down to 5 mg of prednisone She got her evusheld - 06/11/2021 Sinuses are okay - no nasal bleeding or crusting No joint pain, no cough, hemoptysis, purpuric skin rash, numbness or tingling sensation Bactrim SS 3 times a week She was transferred to PD given hard vascular access April 21, 2022 No fever, chills, night sweats no recurrent infection Abdominal pain continues on right side No diarrhea, fever Last RTX 500 mg was on 01/09/2022 She is getting dental work up done for her transplant CT chest 01/02/2022 1. No suspicious pulmonary nodule or thoracic lymphadenopathy. No ground-glass or consolidative airspace opacities. 2. Interval cholecystectomy since the prior abdominal CT from 04/11/2021. Pneumobilia is new and is likely postsurgical. 3. The kidneys are small/atrophied compared to the prior abdominal CT from 04/11/2021, likely due to the patient's history of GPA/end-stage renal disease. 4. A few tiny foci of free intraperitoneal gas are probably due to peritoneal dialysis, new compared to the prior exam. July 27, 2022 She remains on AZA 100 mg - no side effects No active sinus symptoms, no skin rash, numbness, ocular inflammation No recent infection November 24, 2022 Had 2 dental extraction then 2 weeks later she had 2 strokes in July/2022 complicated by seizure - work up was neg including cerebral angiogram, SYLVESTER/TTE, hypercoable panel and LP - was send on Holter monitor and eliquis She was started on lamictal then started to have worsening GERD, nausea/vomiting - went to ED was given fluids but not images were done July 13, 2023 She is not on transplant list yet She completed her dental work up and other stuff as well No more GI issues - she gained some weight No cough or hemoptysis No fever, sinus or ear issues She is on AZA 50 mg No strokes or seizures - nothing was captured on loop monitor No neuropathy Answers submitted by the patient for this visit: Review of Systems Rheumatology (Submitted on 07/13/2023) Fever : No Recent unintentional weight change: No Eye pain: No Eye redness: No Vision Disturbance: No Eye Dryness: No Nosebleeds: No Sores in your mouth: No Trouble Swallowing: No Dry Mouth: No Chest pain: No Leg Swelling: No A cough: No Shortness of breath: No Pain with breathing: No Heartburn: No Abdominal pain: No Diarrhea: No Black tarry stools: No Blood in urine: No Joint pain or stiffness: No Muscle weakness: No Muscle aches: No Joint swelling: No Morning Stiffness in Joints: No A rash: No Skin Color Changes: No Hair Loss: No Nail Changes: No Headaches: No Numbness: No Memory Loss: No Swollen Glands: No PAST MEDICAL HISTORY: None PAST SURGICAL HISTORY: 2 csection CURRENT MEDICATIONS: Current Outpatient Medications Medication Sig azaTHIOprine (IMURAN) 50 mg tablet Take 1 tablet by mouth once daily. lamoTRIgine ER (LAMICTAL XR) 100 mg 24 hr tablet Take 1 tablet by mouth two times a day. ondansetron (ZOFRAN) 8 mg tablet Take 8 mg by mouth three times a day as needed. atorvastatin (LIPITOR) 40 mg tablet Take 40 mg [address] mouth. pantoprazole [address] (PROTONIX) 40 mg tablet Take 1 tablet by mouth every 12 hours. folic acid 1 mg tablet apixaban (ELIQUIS) 2.5 mg tab(s) Take by mouth twice daily. lanthanum (FOSRENOL) 1,000 mg chewable tablet metoprolol tartrate, short acting, (LOPRESSOR) 25 mg tablet Take 25 mg by mouth two times a day. DIALYVITE 100-1 mg tab Take 1 tablet by mouth once daily. gentamicin 0.1% 0.1 % cream Apply to affected area as needed. polyethylene glycol 3350 (MIRALAX, GLYCOLAX) 17 gram/dose powder Take by mouth as needed. Dissolve dose in 4 - 8 ounces of liquid and take as directed. No current facility-administered medications for this visit. 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 LUNGS: on RA . No crackles NEURO: No facial asymmetry. 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 She was pulses on steroid then transitioned to oral 60 mg on 04/19 until present. She received RTX initially the was switched to AZA Overall disease was stable She received 4 infusions of RTX ( 05/16- 05/23-05/30, 06/06/2021) for induction therapy Last maintenance dose was on 01/03/2022 500 mg then was switched to AZA 100 mg DXA scan showed osteopenia T score of -0.3 She was started on Imuran in 05/2022 Had 2 dental extraction then 2 weeks later she had 2 strokes in July/2022 complicated by seizure - work up was neg including cerebral angiogram, blood culture, SYLVESTER/TTE, hypercoable panel and LP - was send on Holter monitor and eliquis She was started on lamictal then started to have worsening GERD, nausea/vomiting - went to ED was given fluids but not images were done Repeat CT chest in 02/2023 wnl No events since last visit - we will increase AZA dose 75 mg - she is off prednisone and bactrim - DXA scan was normal - continue to monitor CBC Te Avendaño MD Rheumatology staff July 13, 2023 documented in this encounter [facility] 07-07-2023 Instructions Natali Child MD - 07/07/2023 11:10 AM EDT Continue Epoietin weekly 40k units for Hgb <11.0 CBC weekly. Follow up in 6 weeks with repeat labs. Epoietin afterwards documented in this encounter [facility] 07-07-2023 History of Present illness Narrative Images from the original note were not included. 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 She has had chronic leukocytosis which is primarily neutrophilic and most compatible with chronic inflammatory process. This is unlikely to be a primary hematologic abnormality or malignancy. I obtained MPN workup which is negative so far. I would be happy to investigate further with bone marrow bx. if clarification is required prior to transplant, but in the meanwhile, we will follow her conservatively. PLAN: Continue Epoietin weekly 40k units for Hgb <11.0 CBC weekly. Follow up in 6 weeks with repeat labs. Epoietin afterwards HPI: CASE HISTORY: Reverse Chronological Order 03/14/2023 - CT Chest: No acute pulmonary disease 02/03/2023 - Anticipated assumption of Aranesp from dialysis center 11/10/2022 - XR Chest: Lines, tubes, and devices: EKG electrodes. Lungs and pleura: The lungs are hypoinflated. No consolidation. No pleural effusion. No pneumothorax. Cardiomediastinal silhouette: Stable cardiomediastinal silhouette. Other: No acute bony abnormalities. No displaced acute fractures are detected. No definite intra-abdominal free air. 07/30/2022 - CT Head/Neck: No large vessel occlusion or high-grade stenosis in the head or neck. 01/03/2022 Maintenance dose Rituxan 01/02/2022 - CT chest - 1. No suspicious pulmonary nodule or thoracic lymphadenopathy. No ground-glass or consolidative airspace opacities. 2. Interval cholecystectomy since the prior abdominal CT from 04/11/2021. Pneumobilia is new and is likely postsurgical. 3. The kidneys are small/atrophied compared to the prior abdominal CT from 04/11/2021, likely due to the patient's history of GPA/end-stage renal disease. 4. A few tiny foci of free intraperitoneal gas are probably due to peritoneal dialysis, new compared to the prior exam. 12/24/2022 - Sent for blood transfusion (Hgb 6.8) 09/2021 - Transaminitis - acute pancreatitis - underwent cholecystectomy 08/2021 - Started on peritoneal dialysis. 05/16/2021- 06/06/2021 - Rituxan weekly x 4 induction 04/18/2021 - Kidney biopsy: 26 glomeruli, 21 with crescents and extensive injury. 4 cellula, 17 fibrocellular with ruptured manjarrez 'capsules. 6 with segmental sclerosis and 3 fibrinoid necrosis. One with interlobular artery with fibrinoid necrosis. Neg IF and EM . 04/2021 - Anuric, vomiting - cANCA 1:640. pr3 1319. CRP 22.96 N< 1. SD rate >100. Hep neg. TB NEG. GBM abs neg 04/12/2021 - CT chest: Smooth symmetric bilateral interlobular septal thickening with edema. Tree in bud opacities in right upper lobe Ill defining patchy ground glass opacities in right middle and upper lobes alveolar hemorrhage vs multi focal pneumonia Splenomegaly 11/2020 - developed sinus infection Nasal bloody discharge. Nasal crusting - doesn't do any rinses - 3 courses of abx - unresolved.(Z pack and augmentin) Updated Visit, July 07, 2023: Doing well and will be having iron added to dialysis. Doing well from anemia standpoint. Updated Visit, May 26, 2023: Mita Duarte returns for follow-up and in the bowl. She complains of chronic fatigue. She denies any cough, shortness of breath or other pulmonary complaints. She denies fevers, chills, night sweats and signs/symptoms of infection. She is still being considered for a possible transplant. Updated Visit, April 14, 2023: Mita returns today, she is feeling good. Anemia has improved, Hgb is at 10.0 today. Continue current regimen of Epoietin 40k units weekly. Updated Visit, March 03, 2023: Mita returns today with Spenser for follow up. She has been more tired the past few days, but has otherwise felt okay. We reviewed her labs, her anemia shows slight improvement. We should increase frequency of her Epoietin. Updated Visit, February 02, 2023: Mita returns today for follow up visit and Epoietin, accompanied by Spenser. She was on Augmentin for 5 days after her GI issues were deemed to be caused by an unknown infection. The issues are now nearly resolved. She reports feeling a bit better overall. Reviewed her CBC, her anemia is improving after increasing Epoietin. She qualifies again today. Updated Visit, January 13, 2023: Mita returns after blood transfusion, Hgb responded to a safer level. She is actively getting iron and Aranesp/biosimilar with dialysis. Labs are pending today, will determine need for additional iron. She felt like she had a bit more energy after the transfusions, but still feeling very tired. She has not had any iron in about a month. Receives the Aranesp every 2-3 weeks. Has a cough due to GI issues, not new. Updated Visit, December 24, 2022: Spenser is with her. 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 EGD done because can't keep down any food or drink. Lost 20 lbs since October. Working on transplant kidney. Very anemic today. - recommend transfusion Updated Visit, May 11, 2022: Abdominal pain is improving.leucocytosis is stable and is primarily composed of neutrophils. MPN workup to date is negative (BCR-ABL, JAK2 exon 12-16 sequencing), JAK2 V16F mutation is pending. She remains afebrile. 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 Has been referred for increased leukocytosis over the past few months. Is on peritoneal dialysis early August 2021 Is on epo replacement Rituxan finished 01/09/2022May - June had acute panreatitis and cholecystectomy She is scheduled to start Azathioprine in May 2022. REVIEW OF SYSTEMS Per HPI and otherwise negative by full review of organ systems. ECOG PERFORMANCE STATUS: 1 PHYSICAL EXAMINATION: Vitals: BP 141/98 Pulse 75 Temp (Src) 97.4 (Temporal) Resp 16 Ht 5' 0 (1.52m) Wt 162 lb 4.1 oz (73.6kg) SpO2 100% BMI 31.69 kg/(m^2). Body surface area is 1.77 meters squared. Exam limited to gross visualization where appropriate. Gen.: This is an age-appropriate patient in no acute distress. Head: Appears atraumatic with no visible lesions. Eyes: Pupils equally round and reactive to light, extraocular muscles are intact. Neck: Supple. Respiratory: Appears to be respiring comfortably. Neurologic: Nonfocal to gross visualization. Alert and oriented 3. Psychiatric: No evidence of inappropriate anxiety or depression. Skin: Visible areas of skin without rash, lesions, wounds or petechiae. ALLERGIES: ALLERGIES Allergen Reactions Amoxicillin-Pot Cla* Hives, Rash Vancomycin Itching hives MEDICATIONS: lamoTRIgine ER (LAMICTAL XR) 100 mg 24 hr tablet Take 1 tablet by mouth two times a day. ondansetron (ZOFRAN) 8 mg tablet Take 8 mg by mouth three times a day as needed. atorvastatin (LIPITOR) 40 mg tablet Take 40 mg [address] mouth. pantoprazole [address] (PROTONIX) 40 mg tablet Take 1 tablet by mouth every 12 hours. folic acid 1 mg tablet apixaban (ELIQUIS) 2.5 mg tab(s) Take by mouth twice daily. lanthanum (FOSRENOL) 1,000 mg chewable tablet metoprolol tartrate, short acting, (LOPRESSOR) 25 mg tablet Take 25 mg by mouth two times a day. DIALYVITE 100-1 mg tab Take 1 tablet by mouth once daily. gentamicin 0.1% 0.1 % cream Apply to affected area as needed. polyethylene glycol 3350 (MIRALAX, GLYCOLAX) 17 gram/dose powder Take by mouth as needed. Dissolve dose in 4 - 8 ounces of liquid and take as directed. sucralfate (CARAFATE) 100 mg/mL suspension Take 10 mL by mouth four times daily. LABORATORY VALUES: WBC (k/uL) Date Value 07/07/2023 9.69 RBC (m/uL) Date Value 07/07/2023 3.32 (L) Hemoglobin (g/dL) Date Value 07/07/2023 11.3 (L) Hematocrit (%) Date Value 07/07/2023 35.8 (L) MCV (fL) Date Value 07/07/2023 107.8 (H) MCH (pg) Date Value 07/07/2023 34.0 MCHC (g/dL) Date Value 07/07/2023 31.6 RDW-CV (%) Date Value 07/07/2023 16.3 (H) Platelet Count (k/uL) Date Value 07/07/2023 261 MPV (fL) Date Value 07/07/2023 9.4 Glucose (mg/dL) Date Value 07/07/2023 115 (H) BUN (mg/dL) Date Value 07/07/2023 53 (H) Creatinine (mg/dL) Date Value 07/07/2023 16.14 (H) Sodium (mmol/L) Date Value 07/07/2023 141 Potassium (mmol/L) Date Value 07/07/2023 5.0 Chloride (mmol/L) Date Value 07/07/2023 98 CO2 (mmol/L) Date Value 07/07/2023 28 Protein, Total (g/dL) Date Value 07/07/2023 5.8 (L) Albumin (g/dL) Date Value 07/07/2023 3.6 (L) Calcium, Total (mg/dL) Date Value 07/07/2023 9.8 Alkaline Phosphatase (U/L) Date Value 07/07/2023 74 Bilirubin, Total (mg/dL) Date Value 07/07/2023 0.3 AST (U/L) Date Value 07/07/2023 11 (L) ALT (U/L) Date Value 07/07/2023 8 Cholesterol, Total (mg/dL) Date Value 12/03/2022 94 Triglyceride (mg/dL) Date Value 12/03/2022 106 DIAGNOSIS: (N18.6, D63.1, Z99.2) Anemia in chronic kidney disease, on chronic dialysis (HCC) (primary encounter diagnosis) (M31.31) 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 with renal involvement (HCC) PAST MEDICAL HISTORY Diagnosis Date Anemia in chronic kidney disease, on chronic dialysis (HCC) 01/13/2023 Class 1 obesity in adult DVT (deep venous thrombosis) (HCC) ESRD (end stage renal disease) (HCC) 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) History of transfusion RSV infection Seizure (HCC) Stroke (HCC) PAST SURGICAL HISTORY Procedure Laterality Date SECTION HX TONSILLECTOMY HX Social History Tobacco Use Smoking status: Never Passive exposure: Never Smokeless tobacco: Never Vaping Use Vaping Use: Never used Substance Use Topics Alcohol use: Not Currently Drug use: Not Currently FAMILY HISTORY Problem Relation Age of Onset Diabetes Mother Hypertension Mother Hyperlipidemia Father Hypertension Father Diabetes Maternal Grandmother Cancer Paternal Grandmother breast Cancer Paternal Grandfather mouth & throat I spent a total of 20 minutes on the date of service which included preparing to see the patient, [id number] patient care, completing clinical documentation, performing a medically appropriate examination, counseling and educating the patient/family/caregiver, independently interpreting results (not separately reported), and communicating results to the patient/family/caregiver. Natali Child MD, CPE Hematology and Oncology Services Provided at: [place], [place] CC: Te Avendaño [id number] [facility] [id number] Jeffrey Del Cid MD [id number] [facility] [id number] documented in this encounter [facility] 07-07-2023 Note [facility] 06-07-2023 Note [facility] 06-07-2023 History of Present illness Narrative [facility] Patient Name: Mita Duarte Date of : 1980 ESTABLISHED EPILEPSY CLINIC NOTE 06/07/2023 11:00 AM Reason for Visit: Follow Up and Epilepsy Clinical Summary: Ms. Duarte is a 43 year old right-handed female seen in [facility]. We had a visit using: Alerts I received consent from the patient to perform the visit using this platform. I have communicated my name and active licensure. The patient's identity and physical location were verified at the time of this visit. Either the patient or their legal benefits representative has been informed of the risks and benefit of - and alternatives to - treatment through a remote evaluation and consents to proceed with the evaluation remotely. There is no one accompanying the patient during today's visit. HISTORY OF PRESENT ILLNESS Handedness: right-handed Age of onset: 42 years Seizure History and Evolution I have communicated my name and active licensure. The patient's identity and physical location were verified at the time of this visit. Either the patient or their legal benefits representative has been informed of the risks and benefits of -- and alternatives to -- treatment through a remote evaluation and consents to proceed with the evaluation remotely. She had a R MCA territory stroke on 07/31/22. She got her care at [facility]. Then on 09/25/22, she had her first seizure. Since then she has had 2 more events. One was today morning and the other one was 2 days ago. The first two episodes have started with a cramp underneath her ribs. Did not get it today. The cramping is the last thing she remembers. Next thing she knows is coming to with post-ictal confusion. Had TB on Right side and today on the Left side. No UI. has seen all 3 episodes. After rib cramping compliant, she let out a odd grunt followed by right side face drooped and bilateral arm stiffening with unresponsiveness. No convulsions/clonic movements. The episodes have lasted <30 seconds. Taking LTG 100 mg BID. Has not missed any dose. No other exacerbating factors for the recent 2 seizures. Undergoes peritoneal dialysis every night. She is planing to undergo a renal transplant at [facility]. Not scheduled yet. History of Event: Event History: 07/31/22: [facility]; patient unable to speak but nodding to yes or no questions MRIb: multifocal ischemic infarcts in the dorsal lateral L frontal lobe with smaller discontinuous areas of infarct in the R MCA territory. CTA head and neck was negative for acute findings. Started on DAPT and Lipitor 08/20/22: Returned to [facility] ED with episode of R sided facial droop and unable to speak. Resolved prior to arrival to ED. CT negative for acute findings. Was instructed to follow up in outpatient stroke. 09/25/22: Syncopal episode ~30 sec to a minute; body went rigid per . ED visit. Per shipbeat message with Dr. Tiwari: I talked to the neurologist team. They said I have a lesion on my brain they are 75% sure is causing me to have seizures. Their official diagnosis is epilepsy. Interval: Patient referred [facility] by Dr. 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 Extensive work-up at that time --- No DVT -- no PFO ; no evidence of pericarditis or vegetations on transesophageal echocardiogram -- CSF studies did not show any evidence of intracranial inflammation -- Cerebral angiogram is also unremarkable Since then she had followed with neurology at [facility] -- Was placed on Eliquis and renally adjusted to 2.5 mg twice daily -- denies any bleeding in urine or stool -- She has noticed heavy menstrual cycles She is concerned about 2 spells concerning for seizures initially --- August 2022 : No severe headache; recollects the episode --states that she was unable to speak for a couple of minutes, felt confused--completely resolved -- In September 2022 : Had another spell where she was staring ahead nonresponsive, stiffening all her extremities and had tongue biting--the entire spell lasted for less than 1 to 2 minutes-felt confused for several minutes after. 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 Morris on 11/03/2022 and at that time she was instructed to increase to LTG 125 mg BID however she messaged in several months later reporting side effects and was therefore switched to LTG ER 100 mg BID. Today, she continues on LTG ER 100 mg BID. She reports good compliance and tolerates this medicaiton well with no reported side effects. She has not had any seizures or concern for seizures since October 2022 prior to her initial office visit with Dr. Maldonado. In other health, she did develop an infection of unknown etiology back in and it caused her to lose 50 pounds due to n/v/d. She is doing well now. She continues to get weekly blood draws done to monitor her hemoglobin due to her ESRD. Sleeping and eating well. Mood is stable. Not working- on disability. Not driving. Lives with her and 2 kids- 18 and 12 yrs old. Total # of Current Anti-seizure Medications: Side Effects to Current Anti-seizure Medications: Seizure Frequency at First Visit: Longest Seizure-free Interval: Number of seizure types: 1 Hx of generalized tonic-clonic seizures: Yes Tongue bite: Yes Urine or Bowel Incontinence: No Status Epilepticus or clusters: No Postictal Agitation: No Seizure-related driving accidents: No Driving: No Lives Alone: No Highest Level of Education: Some college CURRENT OUTPATIENT ANTISEIZURE MEDICATIONS (as of the start of the encounter) lamoTRIgine ER (LAMICTAL XR) 100 mg 24 hr tablet Take 1 tablet by mouth two times a day. Prior Anti-seizure Therapies: Trial Adequacy: Max Daily Dose Achieved: Side Effects: Effectiveness: Comments: Comorbidities: Episode Description: Patient Entered Data: EPILEPSY SCORE 06/07/2023 12:03 AM 06/06/2023 11:58 PM 11/20/2022 12:56 PM First answer obtained - 09/28/2022 5:08 PM PHQ-9 SCORE 4 [None-Minimal Depression] - 5 [Mild Depression] - BESSY 2 SCORE 0 [Negative Anxiety Screen] - - - BESSY 7 SCORE - - - - QOLIE-10 SCORE (0=worst; 100=best QoL - higher scores represent better function) 18 - - - LSSS SCORE (0- no seizures 100- most severe possible seizures) - - - - C-SSRS SCREEN - - - - On average, how many hours of sleep do you get in a 24-hour period? - - - - PROMIS Sleep Disturbance T-SCORE - 54 [within normal limits] - 58 [mild] Have you been diagnosed with Sleep Apnea? - - - - Seizure risk factors: Brain Tumor No [employer] Infections No Developmental Delay No Family history of seizures No Febrile Seizure No Complications No Stroke Yes Traumatic Brain Injury No Previous Epilepsy Evaluations Other caregivers: Primary Care Provider: Jeffrey Del Cid MD Current Outpatient Medications Medication Sig lamoTRIgine ER (LAMICTAL XR) 100 mg 24 hr tablet Take 1 tablet by mouth two times a day. ondansetron (ZOFRAN) 8 mg tablet Take 8 mg by mouth three times a day as needed. sucralfate (CARAFATE) 100 mg/mL suspension Take 10 mL by mouth four times daily. (Patient not taking: Reported on 05/27/2023) atorvastatin (LIPITOR) 40 mg tablet Take [address] (PROTONIX) 40 mg tablet Take 1 tablet by mouth every 12 hours. folic acid 1 mg tablet apixaban (ELIQUIS) 2.5 mg tab(s) Take by mouth twice daily. lanthanum (FOSRENOL) 1,000 mg chewable tablet metoprolol tartrate, short acting, (LOPRESSOR) 25 mg tablet Take 12.5 mg by mouth two times a day. DIALYVITE 100-1 mg tab Take 1 tablet by mouth once daily. gentamicin 0.1% 0.1 % cream Apply to affected area as needed. polyethylene glycol 3350 (MIRALAX, GLYCOLAX) 17 gram/dose powder Take by mouth as needed. Dissolve dose in 4 - 8 ounces of liquid and take as directed. No current facility-administered medications for this visit. 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 No -Vocation: -Education: Some college -Cigarette, alcohol, substance use: None -Functional status: independent in activities of daily living -Patient driving? No Review of Systems All other systems reviewed and are negative. VITAL SIGNS: LMP (LMP Unknown) General Examination: She is alone. General: Awake, alert, interactive, no acute distress, good nutritional status, normal development, well-kept Neurological Exam Mental Status Alert, fully oriented, attentive, with normal cognition, memory, speech and affect. Cranial Nerves Extraocular movements normal. No nystagmus, no ptosis, and pupils equal. Face symmetrical. Tongue normal. 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 She also has renal failure. On nightly peritoneal dialysis and there is a plan for a renal transplant in the coming future. She was started on lamotrigine after first seizure with titration up to 100 mg twice a day. She has been on this dose for a month or so and despite lack of any exacerbating factors, had to almost typical seizure in the last 3 days Interval Impression: Mita remains seizure free since October 2022. She continues on Lamictal ER 100 mg BID and reports tolerating this medication well with no side effects. She did recently lose 50 pounds in the setting of illness of unknown etiology on top of her being immunocompromised at baseline with ESRD. Will obtain updated Lamictal level given weight loss. Will send in RX to pharmacy with plan to update patient if changes to ASM dose should be made pending level. Patient voices understanding. The patient's compliance with therapy has been: Excellent PLAN: - Labs: LTG level - Continue LTG ER 100 mg BID - Will follow up via shipbeat message regarding need for dose adjustment pending level results - Follow up in 6 months or sooner as needed Testing Ordered anticonvulsant level Education The following issues were discussed with the patient on this visit and written instructions provided as below- Seizure precautions and safety, seizure first aide, when to seek emergency care. Counseling was provided to the patient that missed medications, addition of some new medications, use of alcohol or other substances, and sleep deprivation can lower the seizure threshold. I discussed the risk of depression and psychological comorbidities in patients with epilepsy and when to seek help as well as the black box warning of all antiepileptic medications which can increase risk for suicidality. I discussed the risks, benefits and alternatives of the medical plan with the patient. Questions were answered. The patient agreed with the plan as discussed. FOLLOW-UP: Return in about 6 months (around 12/08/2023). I spent a total of 15 minutes on the date of the service which included: preparing to see the patient [id number] patient care completing clinical documentation obtaining and/or reviewing separately obtained history counseling and educating the patient/family/caregiver ordering medications, tests, or procedures Charity Grissom PA-C cc: Primary Care Physician: Jeffrey Del Cid MD [id number] [facility] [id number] Referring: Patient: Ms. Mita Duarte [address] [facility] [id number] documented in this encounter [facility] 06-07-2023 Instructions Charity Grissom PA-C - 06/07/2023 11:20 AM EDT Please have Lamotrigine level drawn either in the morning before your AM dose of Lamictal, or at least 8 hours AFTER your AM dose. documented in this encounter [facility] 05-28-2023 Miscellaneous Notes Received PA approval for LTG ER 100 mg tablet as follows: Approval dates: 05/28/2023-05/26/2024 Spoke w/K[id number] pharmacy operations coordinator - prescription processed; will notify patient Jai message to patient w/appointment reminder Karen Cuevas RN Completed electronic PA for LTG ER 100 mg tablet Will await determination Karen Cuevas RN documented in this encounter [facility] 05-28-2023 Miscellaneous Notes The following approved medication requests have been transmitted electronically. Requested Prescriptions Signed Prescriptions Disp Refills lamoTRIgine ER (LAMICTAL XR) 100 mg 24 hr tablet 180 tablet 1 Sig: Take 1 tablet by mouth two times a day. Authorizing Provider: RYDER SYKES APRN.CNP Prescription Refill: Requested by: patient Please E-Scribe Caller Contact Number: jai [facility]acy [facility]: [facility] Number: [phone] Generic/ brand: 30 or 90 day supply requested: 90 Last appointment: 11/03/22 Next Appointment: none Patient of Dr. Maldonado documented in this encounter [facility] 05-27-2023 History of Present illness Narrative [facility] Established visit [facility] Mita Duarte is a 42 year old right-handed female who is here for follow up of a left frontal ischemic stroke in July 2022 in the background of 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. Reason for Visit: stroke Date of Last Event: 08/05/2022 History of Event: The patient reports she had sudden onset weakness in the right arm. A few minutes later she also was unable to talk. She was given IV thrombolysis at an OSH. There was no LVO. She had improvement and now some residual speech difficulty. The faster she talks, she has mild slurring of her words. She was initially treated with aspirin and plavix, then transitioned to Eliquis 2.5 mg BID since since August for stroke prevention. She reports she had a TIA described as sudden speech difficulty that lasted about 30 seconds to 1 minute. She was then changed to Eliquis 2.5 mg BID (due to kidney failure on dialysis). The patient notes she first had symptoms of 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 with sinus symptoms in December 2020, but diagnosed in Mar 2021 with a renal biopsy. She was treated with pulsed dose IVMP following her initial diagnosis. She was then on prednisone 60 mg daily, which was slowly tapered after 2 months and was completely stopped in July 2022. She was notably started on rituximab in May 2021 prior to stopping her prednisone. She stopped Rituxumab in May 2022. She was started on azathioprine 100 mg daily in May 2022, which was decreased just recently to 50 mg daily. She was switched to azathioprine from rituxumab in anticipation of kidney transplantation. 07/31/22: [facility]; patient unable to speak but nodding to yes or no questions MRIb: multifocal ischemic infarcts in the dorsal lateral L frontal lobe with smaller discontinuous areas of infarct in the R MCA territory. CTA head and neck was negative for acute findings. Started on DAPT and Lipitor 08/20/22: [facility] with episode of R sided facial droop and unable to speak. Resolved prior to arrival to ED. CT negative for acute findings. Was instructed to follow up in outpatient stroke. 09/25/22: Syncopal episode ~30 sec to a minute; body went rigid per . ED visit. Per shipbeat message with Dr. Tiwari: I talked to the neurologist team. They said I have a lesion on my brain they are 75% sure is causing me to have seizures. Their official diagnosis is epilepsy. Interval: Patient referred [facility] by Dr. Tiwari to see a neurologist d/t recent stroke New stroke S/S or events: Antiplatelets/Anticoagulants: Apixaban Statins: Atorvastatin Side effects: Yes - Heavy periods Refills needed: No Residual Deficits: Dysarthria Current PT/OT/ST: No therapy needs Initial Discharge Disposition: Home Current Living Situation: Home with children and Home with spouse Current use of a mobility aid for walking/getting around: None OV 05/27/23 presents for follow up No complaints No questions Neurologically stable Medical History PAST MEDICAL HISTORY Diagnosis Date Anemia in chronic kidney disease, on chronic dialysis (HCC) 01/13/2023 Class 1 obesity in adult DVT (deep venous thrombosis) (HCC) ESRD (end stage renal disease) (HCC) 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) History of transfusion RSV infection Seizure (HCC) Stroke (HCC) Surgical History PAST SURGICAL HISTORY Procedure Laterality Date SECTION HX TONSILLECTOMY HX Family History FAMILY HISTORY Problem Relation Age of Onset Diabetes Mother Hypertension Mother Hyperlipidemia Father Hypertension Father Diabetes Maternal Grandmother Cancer Paternal Grandmother breast Cancer Paternal Grandfather mouth & throat Social History Social History Tobacco Use Smoking status: Never Passive exposure: Never Smokeless tobacco: Never Vaping Use Vaping Use: Never used Substance Use Topics Alcohol use: Not Currently Drug use: Not Currently Current Medications Current Outpatient Medications Medication Sig azaTHIOprine (IMURAN) 50 mg tablet Take 1 tablet by mouth once daily. amLODIPine (NORVASC) 5 mg tablet Take 5 mg by mouth. Benzonatate 200 mg capsule Take 200 mg by mouth. ondansetron (ZOFRAN) 8 mg tablet Take 8 mg by mouth three times a day as needed. sucralfate (CARAFATE) 100 mg/mL suspension Take 10 mL by mouth four times daily. atorvastatin (LIPITOR) 40 mg tablet Take [address] (PROTONIX) 40 mg tablet Take 1 tablet by mouth every 12 hours. folic acid 1 mg tablet potassium chloride ER (KLOR-CON) 20 mEq tablet Take 20 mEq by mouth. lamoTRIgine ER (LAMICTAL XR) 100 mg 24 hr tablet Take 1 tablet by mouth twice daily. apixaban (ELIQUIS) 2.5 mg tab(s) Take by mouth twice daily. lanthanum (FOSRENOL) 1,000 mg chewable tablet metoprolol tartrate, short acting, (LOPRESSOR) 25 mg tablet Take 25 mg by mouth twice daily. DIALYVITE 100-1 mg tab Take 1 tablet by mouth once daily. gentamicin 0.1% 0.1 % cream Apply to affected area as needed. polyethylene glycol 3350 (MIRALAX, GLYCOLAX) 17 gram/dose powder Take by mouth as needed. Dissolve dose in 4 - 8 ounces of liquid and take as directed. No current facility-administered medications for this visit. Allergies ALLERGIES Allergen Reactions Amoxicillin-Pot Cla* Hives, Rash Vancomycin Itching hives PHYSICAL EXAMINATION LMP (LMP Unknown) General: Well-developed, well-nourished, in no acute distress. HEENT: Normocephalic, atraumatic. Sclerae anicteric. Oropharynx clear. Skin: No rash or ecchymoses. Neurological: Awake, alert, oriented to person, place, and time. Speech fluent, no dysarthria. Naming, repetition, recall, comprehension, calculation intact. Good attention and insight into illness. Cranial Nerves: PERRL, extraocular movements intact without nystagmus. Visual mcdonnell full. Fundoscopic examination normal with sharp optic discs bilaterally. Facial sensation and movements normal and symmetric. Palate elevates equal bilaterally. Tongue midline. Trapezius strength 5/5 bilaterally. Motor: No drift Sensation: intact to light touch Coordination: no obvious dysmetria Reflexes: unable to assess Gait: narrow based, stable IMAGING CT chest w/o 01/02/22: 1. No suspicious pulmonary nodule or thoracic lymphadenopathy. No ground-glass or consolidative airspace opacities. 2. Interval cholecystectomy since the prior abdominal CT from 04/11/2021. Pneumobilia is new and is likely postsurgical. 3. The kidneys are small/atrophied compared to the prior abdominal CT from 04/11/2021, likely due to the patient's history of GPA/end-stage renal disease. 4. A few tiny foci of free intraperitoneal gas are probably due to peritoneal dialysis, new compared to the prior exam. MRI brain w/o 07/31/22: * Multifocal acute ischemia, notably dorsolateral left frontal lobe [MCA territory], smaller discontiguous areas right MCA territory, findings worrisome for central embolic phenomenon. * Left cerebellar encephalomalacia. * Signal abnormality left mandibular body, sequelae odontogenic disease. SYLVESTER ([facility]) 08/03/22: No left atrial appendage thrombus noted. No PFO noted on this study. No evidence of valvular vegetation noted on this study. Left Ventricle: Left ventricle appears normal in size. Wall thickness is normal. Systolic function is normal with an ejection fraction of 60-65%. No segmental wall motion abnormalities. Left Atrium: Left atrium is normal in size. The pulmonary veins appear normal with normal venous flow. There is no thrombus in the left atrial appendage. The left atrial appendage is normal. The left atrial appendage emptying velocity is normal. The interatrial septum is intact. Agitated saline bubble study revealed no evidence of right to left interatrial shunting . Right Ventricle: Right ventricular size appears normal. Systolic function is normal. Aortic Valve: The aortic valve is trileaflet. There is no regurgitation or stenosis. No vegetation present on the aortic valve. Mitral Valve: Mitral valve structure is normal. There is trace regurgitation. There is no evidence of mitral valve stenosis. No vegetation present on the mitral valve. Tricuspid Valve: No vegetation present on the tricuspid valve. Pulmonic Valve: No vegetation present on the pulmonic valve. DSA ([facility]) 08/05/22: no structural vascular abnormality to explain stroke. Specifically, no vasculitis, atherosclerosis, large vessel occlusion, distal emboli, AVM, or fistula is seen. MRI brain w/o ([facility]) 08/05/22: Evolving ischemic change within the bilateral frontal lobes, left more so than right. Extent of confluence in the left frontal lobe is somewhat greater and prior. No new sites of involvement. No hemorrhagic conversion. LABS Cholesterol: Lipid profile ([facility]) 08/01/22: Cholesterol 220 Triglycerides 421 HDL 37 VLDL 48 LDL 135 Hemoglobin A1c: 4.7 on 07/31/22 at [facility] Immunosuppression Monitoring: WBC 3.98 11/24/2022 RBC 2.01 11/24/2022 Hemoglobin 7.3 11/24/2022 Hematocrit 22.6 11/24/2022 MCV 112.4 11/24/2022 MCH 36.3 11/24/2022 MCHC 32.3 11/24/2022 RDW-CV 15.0 11/24/2022 Platelet Count 200 11/24/2022 MPV 10.6 11/24/2022 Neut% 77.3 11/24/2022 Lymph% 9.8 11/24/2022 [place]% 5.8 11/24/2022 Eosin% 0.0 05/01/2021 Baso% 0.5 11/24/2022 Abs Neut (ANC) 3.08 11/24/2022 Abs [place] 0.23 11/24/2022 Abs Eosin 0.23 11/24/2022 Abs Baso <0.03 11/24/2022 Glucose (mg/dL) Date Value 05/26/2023 92 05/01/2021 80 Potassium (mmol/L) Date Value 05/26/2023 3.6 05/27/2021 3.0 05/01/2021 4.0 Sodium (mmol/L) Date Value 05/26/2023 142 05/01/2021 133 Chloride (mmol/L) Date Value 05/26/2023 97 05/01/2021 100 CO2 (mmol/L) Date Value 05/26/2023 29 05/01/2021 19 Creatinine (mg/dL) Date Value 05/26/2023 16.09 05/01/2021 3.34 BUN (mg/dL) Date Value 05/26/2023 36 05/01/2021 17 Anion Gap (mmol/L) Date Value 05/26/2023 16 05/01/2021 14 Calcium (mg/dL) Date Value 05/01/2021 8.4 Calcium, Total (mg/dL) Date Value 05/26/2023 9.5 Protein, Total (g/dL) Date Value 05/26/2023 5.3 05/01/2021 6.3 Albumin (g/dL) Date Value 05/26/2023 3.4 05/01/2021 3.4 Bilirubin, Total (mg/dL) Date Value 05/26/2023 0.3 05/01/2021 0.4 Alkaline Phosphatase (U/L) Date Value 05/26/2023 78 05/01/2021 57 AST (U/L) Date Value 05/26/2023 14 05/01/2021 12 ALT (U/L) Date Value 05/26/2023 11 05/01/2021 12 Hepatitis: Hep B Core Ab, Total (no units) Date Value 05/01/2021 Negative Hepatitis B Core Ab, Total (no units) Date Value 12/30/2022 Negative Hep C Antibody IA (no units) Date Value 12/30/2022 Negative 04/28/2021 Negative HBsAg (no units) Date Value 04/28/2021 Initially reactive Hep B Surface Ab, Qual (no units) Date Value 12/30/2022 Negative 05/01/2021 Negative TB: TB Result (no units) Date Value 12/30/2022 Negative 04/28/2021 Negative Inflammatory: WSR (mm/hr) Date Value 05/01/2021 22 04/28/2021 32 Sed Rate, Westergren (mm/hr) Date Value 11/09/2022 120 07/21/2022 37 06/18/2022 110 CRP (mg/dL) Date Value 12/30/2022 <0.3 11/24/2022 1.2 11/09/2022 0.5 05/01/2021 1.0 04/28/2021 2.0 WILMA (no units) Date Value 06/24/2021 Negative No results found for: RUDY No results found for: SMIB No results found for: RNPIB No results found for: SSAIB No results found for: SSBIB No results found for: CANCAFL No results found for: PANCAF No results found for: CANCA No results found for: PANCA No results found for: C3 No results found for: C4 No results found for: RF No results found for: ANTID Inflammatory Markers were reviewed and are Stable ESR ranges between 40s-120s CRP mostly negative, markedly eleavted at 22.96 on 04/12/21 MPO 04/12/21 [facility]: 0 PR3 04/12/21 [facility]: 1319 (H) ANCA IFA Titer 04/12/21 [facility]: 1:640 (H) ANCA IFA Pattern 04/12/21 [facility]: c-ANCA MPO 04/14/21 [facility]: 0 PR3 04/14/21 [facility]: 1319 (H) ANCA IFA Titer 04/14/21 [facility]: 1:640 (H) ANCA IFA Pattern 04/14/21 [facility]: c-ANCA Hypercoagulable labs OSH Antithrombin 3 function 08/27/22: 125 Protein S Activity 08/27/22: 160 (H) Protein C Activity 08/27/22: 132 Anticardiolipin Ab IgG, IgA, IgM 08/05/22: negative B2GP IgA, IgM, IGG 08/05/22: negative Homocysteine 08/04/22: 20.98 (H) Folate 08/04/22: 14.6 Jak2 V617 Mutation 05/11/22: no variant detected Cryoglobulin qualitative 04/12/21: negative 72 hour CSF Labs 08/27/22 [facility] CSF RBC 0 CSF WBC 0 nucleated cells CSF Glucose 66 CSF Protein 25 CSF Oligoclonal Bands No results found for: OLIGO CSF Inflammatory No results found for: CNSIGG No results found for: CSFIGG No results found for: AN3241 , CSFSR , ACECSF , CARG , CASN , CLACT CSF Infectious No results found for: HSPCRC , HSPCR , BBURT , CSFVZV , VZOPCR , CSFCUL , VDRLCF , BDGLU , ASPCSF , AFC , WESTNILECSF Renal Biopsy [facility] 04/18/2021: KIDNEY, LEFT, PERCUTANEOUS BIOPYS: -- 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 Of those with crescents, 4 are cellular crescents and 17 are fibrocellular crescents with associated rupture of Manjarrez's capsules. Of those with fibrocellular crescents, 6 show segmental sclerosis and 9 show breaks and corrugation in the GBM, and of these, 3 also demonstrate fibrinoid necrosis and 1 additionally has endocapillary fibrin thrombi. One glomerulus shows isolated secondary segmental sclerosis. In addition, one interlobular artery show fibrinoid necrosis of the vessel wall with associated inflammation. There are no immune complex deposits by IF or EM and there is no endocapillary hypercellularity. There is no anti-GBM staining by IF. 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 There is severe activity with the above-mentioned crescent formation, fibrinoid necrosis, and vasculitis of arteries. There is moderate chronicity with the above-mentioned fibrocellular crescents and segmental scars. Of note, rupture of Manjarrez's capsule is associate with irreparable injury to glomeruli. There is also diffuse interstitial edema, interstitial inflammatory infiltrate, and tubular injury that is likely in response to the glomerular insult. I have confirmed and edited as necessary, the PFSH and ROS obtained by others. IMPRESSION Left MCA distribution embolic appearing stroke of undetermined source. Not related to and no evidence of [employer] vasculitis In the context of normal appearing vessels, a cardioembolic source such as occult atrial fibrillation remains highest on the differential diagnosis as SYLVESTER was negative for any PFO or structural cardioembolic source. 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 Continue management of 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 Blood pressure goal <130/80 Diet and regular exercise Return to ER for new sx Follow up as needed I spent a total of 30 minutes on the date of service which included preparing to see the patient, [id number] patient care, completing clinical documentation, obtaining and/or reviewing separately obtained history, performing a medically appropriate examination, and counseling and educating the patient/family/caregiver Joanne Overton APRN.[facility] Stroke Neurology Cc: MD Rich Porras MD Ghulam Abbas Kharal, MD documented in this encounter [facility] 05-27-2023 Note [facility] 05-26-2023 Note [facility] 05-26-2023 History of Present illness Narrative Images from the original note were not included. NAME: Mita Duarte CLINIC NO.: [id number] DATE OF SERVICE: May 26, 2023 (Andres) Some elements in this clinic note that are critical to medical decision making have been carefully reviewed and included from a prior clinic note dated: April 14, 2023. (Dr. 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 She has had chronic leukocytosis which is primarily neutrophilic and most compatible with chronic inflammatory process. This is unlikely to be a primary hematologic abnormality or malignancy. I obtained MPN workup which is negative so far. I would be happy to investigate further with bone marrow bx. if clarification is required prior to transplant, but in the meanwhile, we will follow her conservatively. PLAN: Continue Epoietin today and weekly 40k units. CBC weekly. Follow up in 6 weeks with repeat labs. Epoietin afterwards HPI: CASE HISTORY: Reverse Chronological Order 03/14/2023 - CT Chest: No acute pulmonary disease 02/03/2023 - Anticipated assumption of Aranesp from dialysis center 11/10/2022 - XR Chest: Lines, tubes, and devices: EKG electrodes. Lungs and pleura: The lungs are hypoinflated. No consolidation. No pleural effusion. No pneumothorax. Cardiomediastinal silhouette: Stable cardiomediastinal silhouette. Other: No acute bony abnormalities. No displaced acute fractures are detected. No definite intra-abdominal free air. 07/30/2022 - CT Head/Neck: No large vessel occlusion or high-grade stenosis in the head or neck. 01/03/2022 Maintenance dose Rituxan 01/02/2022 - CT chest - 1. No suspicious pulmonary nodule or thoracic lymphadenopathy. No ground-glass or consolidative airspace opacities. 2. Interval cholecystectomy since the prior abdominal CT from 04/11/2021. Pneumobilia is new and is likely postsurgical. 3. The kidneys are small/atrophied compared to the prior abdominal CT from 04/11/2021, likely due to the patient's history of GPA/end-stage renal disease. 4. A few tiny foci of free intraperitoneal gas are probably due to peritoneal dialysis, new compared to the prior exam. 12/24/2022 - Sent for blood transfusion (Hgb 6.8) 09/2021 - Transaminitis - acute pancreatitis - underwent cholecystectomy 08/2021 - Started on peritoneal dialysis. 05/16/2021- 06/06/2021 - Rituxan weekly x 4 induction 04/18/2021 - Kidney biopsy: 26 glomeruli, 21 with crescents and extensive injury. 4 cellula, 17 fibrocellular with ruptured manjarrez 'capsules. 6 with segmental sclerosis and 3 fibrinoid necrosis. One with interlobular artery with fibrinoid necrosis. Neg IF and EM . 04/2021 - Anuric, vomiting - cANCA 1:640. pr3 1319. CRP 22.96 N< 1. SD rate >100. Hep neg. TB NEG. GBM abs neg 04/12/2021 - CT chest: Smooth symmetric bilateral interlobular septal thickening with edema. Tree in bud opacities in right upper lobe Ill defining patchy ground glass opacities in right middle and upper lobes alveolar hemorrhage vs multi focal pneumonia Splenomegaly 11/2020 - developed sinus infection Nasal bloody discharge. Nasal crusting - doesn't do any rinses - 3 courses of abx - unresolved.(Z pack and augmentin) Updated Visit, May 26, 2023: Mita Duarte returns for follow-up and in the bowl. She complains of chronic fatigue. She denies any cough, shortness of breath or other pulmonary complaints. She denies fevers, chills, night sweats and signs/symptoms of infection. She is still being considered for a possible transplant. Updated Visit, April 14, 2023: Mita returns today, she is feeling good. Anemia has improved, Hgb is at 10.0 today. Continue current regimen of Epoietin 40k units weekly. Updated Visit, March 03, 2023: Mita returns today with Spenser for follow up. She has been more tired the past few days, but has otherwise felt okay. We reviewed her labs, her anemia shows slight improvement. We should increase frequency of her Epoietin. Updated Visit, February 02, 2023: Mita returns today for follow up visit and Epoietin, accompanied by Spenser. She was on Augmentin for 5 days after her GI issues were deemed to be caused by an unknown infection. The issues are now nearly resolved. She reports feeling a bit better overall. Reviewed her CBC, her anemia is improving after increasing Epoietin. She qualifies again today. Updated Visit, January 13, 2023: Mita returns after blood transfusion, Hgb responded to a safer level. She is actively getting iron and Aranesp/biosimilar with dialysis. Labs are pending today, will determine need for additional iron. She felt like she had a bit more energy after the transfusions, but still feeling very tired. She has not had any iron in about a month. Receives the Aranesp every 2-3 weeks. Has a cough due to GI issues, not new. Updated Visit, December 24, 2022: Spenser is with her. 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 EGD done because can't keep down any food or drink. Lost 20 lbs since October. Working on transplant kidney. Very anemic today. - recommend transfusion Updated Visit, May 11, 2022: Abdominal pain is improving.leucocytosis is stable and is primarily composed of neutrophils. MPN workup to date is negative (BCR-ABL, JAK2 exon 12-16 sequencing), JAK2 V16F mutation is pending. She remains afebrile. 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 Has been referred for increased leukocytosis over the past few months. Is on peritoneal dialysis early August 2021 Is on epo replacement Rituxan finished 01/09/2022May - June had acute panreatitis and cholecystectomy She is scheduled to start Azathioprine in May 2022. REVIEW OF SYSTEMS Per HPI and otherwise negative by full review of organ systems. ECOG PERFORMANCE STATUS: 1 PHYSICAL EXAMINATION: Vitals: BP 126/84 Pulse 85 Temp (Src) 97.4 (Temporal) Resp 16 Ht 5' 0 (1.52m) Wt 151 lb 14.4 oz (68.9kg) SpO2 98% BMI 29.67 kg/(m^2). Body surface area is 1.71 meters squared. Exam limited to gross visualization where appropriate. Gen.: This is an age-appropriate patient in no acute distress. Head: Appears atraumatic with no visible lesions. Eyes: Pupils equally round and reactive to light, extraocular muscles are intact. Neck: Supple. Respiratory: Appears to be respiring comfortably. Neurologic: Nonfocal to gross visualization. Alert and oriented 3. Psychiatric: No evidence of inappropriate anxiety or depression. Skin: Visible areas of skin without rash, lesions, wounds or petechiae. ALLERGIES: ALLERGIES Allergen Reactions Amoxicillin-Pot Cla* Hives, Rash Vancomycin Itching hives MEDICATIONS: azaTHIOprine (IMURAN) 50 mg tablet Take 1 tablet by mouth once daily. ondansetron (ZOFRAN) 8 mg tablet Take 8 mg by mouth three times a day as needed. sucralfate (CARAFATE) 100 mg/mL suspension Take 10 mL by mouth four times daily. atorvastatin (LIPITOR) 40 mg tablet Take [address] mouth[address]op[address] (PROTONIX) 40 mg tablet Take 1 tablet by mouth every 12 hours. folic acid 1 mg tablet potassium chloride ER (KLOR-CON) 20 mEq tablet Take 20 mEq by mouth. apixaban (ELIQUIS) 2.5 mg tab(s) Take by mouth twice daily. lanthanum (FOSRENOL) 1,000 mg chewable tablet metoprolol tartrate, short acting, (LOPRESSOR) 25 mg tablet Take 25 mg by mouth twice daily. DIALYVITE 100-1 mg tab Take 1 tablet by mouth once daily. gentamicin 0.1% 0.1 % cream Apply to affected area as needed. polyethylene glycol 3350 (MIRALAX, GLYCOLAX) 17 gram/dose powder Take by mouth as needed. Dissolve dose in 4 - 8 ounces of liquid and take as directed. amLODIPine (NORVASC) 5 mg tablet Take 5 mg by mouth. Benzonatate 200 mg capsule Take 200 mg by mouth. lamoTRIgine ER (LAMICTAL XR) 100 mg 24 hr tablet Take 1 tablet by mouth twice daily. LABORATORY VALUES: WBC (k/uL) Date Value 05/26/2023 10.21 RBC (m/uL) Date Value 05/26/2023 2.79 (L) Hemoglobin (g/dL) Date Value 05/26/2023 9.5 (L) Hematocrit (%) Date Value 05/26/2023 28.7 (L) MCV (fL) Date Value 05/26/2023 102.9 (H) MCH (pg) Date Value 05/26/2023 34.1 (H) MCHC (g/dL) Date Value 05/26/2023 33.1 RDW-CV (%) Date Value 05/26/2023 17.7 (H) Platelet Count (k/uL) Date Value 05/26/2023 487 (H) MPV (fL) Date Value 05/26/2023 9.2 Glucose (mg/dL) Date Value 05/26/2023 92 BUN (mg/dL) Date Value 05/26/2023 36 (H) Creatinine (mg/dL) Date Value 05/26/2023 16.09 (H) Sodium (mmol/L) Date Value 05/26/2023 142 Potassium (mmol/L) Date Value 05/26/2023 3.6 (L) Chloride (mmol/L) Date Value 05/26/2023 97 CO2 (mmol/L) Date Value 05/26/2023 29 Protein, Total (g/dL) Date Value 05/26/2023 5.3 (L) Albumin (g/dL) Date Value 05/26/2023 3.4 (L) Calcium, Total (mg/dL) Date Value 05/26/2023 9.5 Alkaline Phosphatase (U/L) Date Value 05/26/2023 78 Bilirubin, Total (mg/dL) Date Value 05/26/2023 0.3 AST (U/L) Date Value 05/26/2023 14 ALT (U/L) Date Value 05/26/2023 11 Cholesterol, Total (mg/dL) Date Value 12/03/2022 94 Triglyceride (mg/dL) Date Value 12/03/2022 106 DIAGNOSIS: (N18.6, D63.1, Z99.2) Anemia in chronic kidney disease, on chronic dialysis (HCC) (primary encounter diagnosis) PAST MEDICAL HISTORY Diagnosis Date Anemia in chronic kidney disease, on chronic dialysis (HCC) 01/13/2023 Class 1 obesity in adult DVT (deep venous thrombosis) ([facility]) ESRD (end stage renal disease) (HCC) 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) History of transfusion RSV infection Seizure (HCC) Stroke (HCC) PAST SURGICAL HISTORY Procedure Laterality Date SECTION HX TONSILLECTOMY HX Social History Tobacco Use Smoking status: Never Passive exposure: Never Smokeless tobacco: Never Vaping Use Vaping Use: Never used Substance Use Topics Alcohol use: Not Currently Drug use: Not Currently FAMILY HISTORY Problem Relation Age of Onset Diabetes Mother Hypertension Mother Hyperlipidemia Father Hypertension Father Diabetes Maternal Grandmother Cancer Paternal Grandmother breast Cancer Paternal Grandfather mouth & throat [place] Maradiaga APRN.[facility] On[facility] Provided at: [place], [place] CC: Te Avendaño [id number] [facility] [id number] Jeffrey Del Cid MD [id number] [facility] [id number] I spent a total of 30 minutes on the date of the service which included preparing to see the patient, [id number] patient care, completing clinical documentation, obtaining and/or reviewing separately obtained history, performing a medically appropriate examination, counseling and educating the patient/family/caregiver, ordering medications, tests, or procedures, independently interpreting results (not separately reported), and communicating results to the patient/family/caregiver. documented in this encounter [facility] 05-24-2023 History of Present illness Narrative Dialysis center status inquiry form received from [facility]. Form completed and faxed back to MARC Graff at [phone]. Patient under physician review for potential discussion at kidney selection committee. KYLEE Miller RN May 24, 2023 11:42 AM documented in this encounter [facility] 05-24-2023 Note [facility] 05-03-2023 Note [facility] 05-03-2023 History of Present illness Narrative Patient completed transplant education on 10/13/2021 using version September 28, 2022 of transplant evaluation informed consent. Transplant evaluation started on 12/30/2022 Consent signed on 12/30/2022 with incorrect version of KP 01-13-2021 noted. The correct version provided and was used for education is September 28, 2022. Kenny Orozco RN documented in this encounter [facility] 04-28-2023 Note [facility] 04-28-2023 History of Present illness Narrative 43 year old female presents with the following concerns and complaints: Postnasal drainage History of present illness Patient with GPA last seen November 2022 (5 months ago) In the interim developed postnasal discharge with gas or gagging. Denies colored nasal discharge with blowing, face pain Has some nasal crusting and nose blockage ACTIVE PROBLEM LIST Ekaterina's Granulomatosis With Renal Involvement (Hcc) Acute Hepatitis Esrd (End Stage Renal Disease) (Hcc) Obesity, Class I, Bmi 30-34.9 Choledocholithiasis Post-Ercp Acute Pancreatitis Pre-Transplant Evaluation for Kidney Transplant Localization-Related (Focal) (Partial) Symptomatic Epilepsy and Epileptic Syndromes With Complex Partial Seizures, Not Intractable, Without Status Epilepticus (Hcc) Cryptogenic Stroke (Hcc) Mixed Hyperlipidemia Nonintractable Epilepsy Without Status Epilepticus (Hcc) Anemia Anemia in Chronic Kidney Disease, On Chronic Dialysis (Hcc) Current Outpatient Medications on File Prior to Visit Medication Sig azaTHIOprine (IMURAN) 50 mg tablet Take 1 tablet by mouth once daily. ondansetron (ZOFRAN) 8 mg tablet Take 8 mg by mouth three times a day as needed. atorvastatin (LIPITOR) 40 mg tablet Take [address] mouth[address] (PROTONIX) 40 mg tablet Take 1 tablet by mouth every 12 hours. folic acid 1 mg tablet lamoTRIgine ER (LAMICTAL XR) 100 mg 24 hr tablet Take 1 tablet by mouth twice daily. apixaban (ELIQUIS) 2.5 mg tab(s) Take by mouth twice daily. lanthanum (FOSRENOL) 1,000 mg chewable tablet metoprolol tartrate, short acting, (LOPRESSOR) 25 mg tablet Take 25 mg by mouth twice daily. DIALYVITE 100-1 mg tab Take 1 tablet by mouth once daily. gentamicin 0.1% 0.1 % cream Apply to affected area as needed. polyethylene glycol 3350 (MIRALAX, GLYCOLAX) 17 gram/dose powder Take by mouth as needed. Dissolve dose in 4 - 8 ounces of liquid and take as directed. amLODIPine (NORVASC) 5 mg tablet Take 5 mg by mouth. (Patient not taking: Reported on 04/14/2023) Benzonatate 200 mg capsule Take 200 mg by mouth. (Patient not taking: Reported on 04/14/2023) sucralfate (CARAFATE) 100 mg/mL suspension Take 10 mL by mouth four times daily. (Patient not taking: Reported on 04/14/2023) potassium chloride ER (KLOR-CON) 20 mEq tablet Take 20 mEq by mouth. (Patient not taking: Reported on 04/14/2023) No current facility-administered medications on file prior to visit. ROS: Negative except for as listed above EXAM: LMP (LMP Unknown) APPEARANCE: alert, NAD, and cooperative EYES:conjunctiva and sclera normal and without drainage EARS: TMs without erythema and apppear normal bilat. Canals normal bilaterally. NOSE/SINUS: MOUTH. Examination includes lips, tongue, teeth, buccal mucosa, gingiva, hard palate, floor the mouth. Normal. OROPHARYNX. Examination of the soft palate, posterior and lateral pharyngeal lui, tonsil fossa. normal NASOPHARYNX. Superior wall, lateral recess, rosenmuller's fossa, eustachian tube orifice, normal Looks like a NECK: Neck supple, no adenopathy; thyroid symmetric, normal size, no bruits. CRANIAL NERVE 2-7 AND 9-12: normal NASOPHARYNGOSCOPY/ NASAL ENDOSCOPY PRE-OPERATIVE DIAGNOSIS: Rhinitis POST-OPERATIVE DIAGNOSIS: Rhinitis INDICATIONS: Nasal/sinus symptoms requiring endoscopy - unable to visualize adequately by anterior or posterior rhinoscopy ANESTHESIA: Lidocaine 2% and Ricco-Synephine 1/2% PROCEDURE: With the patient sitting upright in the examining chair and the risks, benefits and alternatives were discussed and the patient agrees to proceed. The the left and right side(s) of the nose were topically anesthetized with spray. After waiting an appropirate period of time for anesthesia/vasoconstriction to become effective, the flexible laryngoscope was passed through the the left and right side(s) of the nose and the nose and nasopharynx were examined. FINDINGS: Septum was straight with a 0% obstruction. Bilateral mild inferior and middle turbinate edema. Edema of the uncinate process in the middle meatus on both sides Seromucoid ropes of discharge in the middle meatus No granulations, ulcerations, exudates, bleeding sites. CONDITION: Stable Impression and plan -GPA with no evidence of nasal sinus involvement that is active -Nasal crusting consistent with rhinitis sicca. Recommend: -Handout given for nasal hydration -Recommend [id number] use of Alkalol nasal irrigation -Return as needed Suyapa Louise MD otolaryngology documented in this encounter [facility] 04-28-2023 Instructions Suyapa Louise MD - 04/28/2023 11:18 AM EST Care of dry nose. This problem is often a winter time issue leading to nose crusting and nose bleed. Recommendations. Increase the humidity in your home. Be sure the humidifier on the furnace works if there is one. Add additional humidification with a table top humidifier; either warm or cool mist. Run it when you are home in the room you are in most often. Keep the nose moist with a salt water ( saline nose spray). Use often, even hourly. Saline sprays are on the shelf at the drug store. Common brands are Dardanelle and Erlanger; any brand is ok. If there is an actual sore, crack or raw area use Carrasyn Gel Wound Dressing on the site. Apply with a Q tip 4-5 times per day for two weeks. This product is available at the pharmacy without a prescription, ask for it. Alkalol nasal douch documented in this encounter [facility] 04-28-2023 Nurse Note Tobacco Use: Never Was smoking cessation packet given? N/A - Patient is a non-smoker or quit >1 year ago. Was a referral initiated?N/A Patient is a non-smoker documented in this encounter [facility] 04-21-2023 History of Present illness Narrative No injection today, Hgb 11.6 Estefani Frias RN documented in this encounter [facility] 04-21-2023 Note HNO ID: [id number] Author: ESTEFANI FRIAS RN Service: ? Author Type: Registered Nurse Type: Progress Notes Filed: 04/21/2023 10:39 Note Text: No injection today, Hgb 11.6 Estefani Frias RN [facility] 04-14-2023 Instructions Zaida lFoyd - 04/14/2023 10:45 AM EST Continue Epoietin today and weekly 40k units. CBC weekly. RTC in 6 weeks with repeat labs, Epoietin afterwards documented in this encounter [facility] 04-14-2023 History of Present illness Narrative Images from the original note were not included. 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 She has had chronic leukocytosis which is primarily neutrophilic and most compatible with chronic inflammatory process. This is unlikely to be a primary hematologic abnormality or malignancy. I obtained MPN workup which is negative so far. I would be happy to investigate further with bone marrow bx. if clarification is required prior to transplant, but in the meanwhile, we will follow her conservatively. PLAN: Continue Epoietin today and weekly 40k units. CBC weekly. RTC in 6 weeks with repeat labs, Epoietin afterwards HPI: CASE HISTORY: Reverse Chronological Order 03/14/2023 - CT Chest: No acute pulmonary disease 02/03/2023 - Anticipated assumption of Aranesp from dialysis center 11/10/2022 - XR Chest: Lines, tubes, and devices: EKG electrodes. Lungs and pleura: The lungs are hypoinflated. No consolidation. No pleural effusion. No pneumothorax. Cardiomediastinal silhouette: Stable cardiomediastinal silhouette. Other: No acute bony abnormalities. No displaced acute fractures are detected. No definite intra-abdominal free air. 07/30/2022 - CT Head/Neck: No large vessel occlusion or high-grade stenosis in the head or neck. 01/03/2022 Maintenance dose Rituxan 01/02/2022 - CT chest - 1. No suspicious pulmonary nodule or thoracic lymphadenopathy. No ground-glass or consolidative airspace opacities. 2. Interval cholecystectomy since the prior abdominal CT from 04/11/2021. Pneumobilia is new and is likely postsurgical. 3. The kidneys are small/atrophied compared to the prior abdominal CT from 04/11/2021, likely due to the patient's history of GPA/end-stage renal disease. 4. A few tiny foci of free intraperitoneal gas are probably due to peritoneal dialysis, new compared to the prior exam. 12/24/2022 - Sent for blood transfusion (Hgb 6.8) 09/2021 - Transaminitis - acute pancreatitis - underwent cholecystectomy 08/2021 - Started on peritoneal dialysis. 05/16/2021- 06/06/2021 - Rituxan weekly x 4 induction 04/18/2021 - Kidney biopsy: 26 glomeruli, 21 with crescents and extensive injury. 4 cellula, 17 fibrocellular with ruptured manjarrez 'capsules. 6 with segmental sclerosis and 3 fibrinoid necrosis. One with interlobular artery with fibrinoid necrosis. Neg IF and EM . 04/2021 - Anuric, vomiting - cANCA 1:640. pr3 1319. CRP 22.96 N< 1. SD rate >100. Hep neg. TB NEG. GBM abs neg 04/12/2021 - CT chest: Smooth symmetric bilateral interlobular septal thickening with edema. Tree in bud opacities in right upper lobe Ill defining patchy ground glass opacities in right middle and upper lobes alveolar hemorrhage vs multi focal pneumonia Splenomegaly 11/2020 - developed sinus infection Nasal bloody discharge. Nasal crusting - doesn't do any rinses - 3 courses of abx - unresolved.(Z pack and augmentin) Updated Visit, April 14, 2023: Mita returns today, she is feeling good. Anemia has improved, Hgb is at 10.0 today. Continue current regimen of Epoietin 40k units weekly. Updated Visit, March 03, 2023: Mita returns today with Spenser for follow up. She has been more tired the past few days, but has otherwise felt okay. We reviewed her labs, her anemia shows slight improvement. We should increase frequency of her Epoietin. Updated Visit, February 02, 2023: Mita returns today for follow up visit and Epoietin, accompanied by Spenser. She was on Augmentin for 5 days after her GI issues were deemed to be caused by an unknown infection. The issues are now nearly resolved. She reports feeling a bit better overall. Reviewed her CBC, her anemia is improving after increasing Epoietin. She qualifies again today. Updated Visit, January 13, 2023: Mtia returns after blood transfusion, Hgb responded to a safer level. She is actively getting iron and Aranesp/biosimilar with dialysis. Labs are pending today, will determine need for additional iron. She felt like she had a bit more energy after the transfusions, but still feeling very tired. She has not had any iron in about a month. Receives the Aranesp every 2-3 weeks. Has a cough due to GI issues, not new. Updated Visit, December 24, 2022: Spenser is with her. 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 EGD done because can't keep down any food or drink. Lost 20 lbs since October. Working on transplant kidney. Very anemic today. - recommend transfusion Updated Visit, May 11, 2022: Abdominal pain is improving.leucocytosis is stable and is primarily composed of neutrophils. MPN workup to date is negative (BCR-ABL, JAK2 exon 12-16 sequencing), JAK2 V16F mutation is pending. She remains afebrile. 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 Has been referred for increased leukocytosis over the past few months. Is on peritoneal dialysis early August 2021 Is on epo replacement Rituxan finished 01/09/2022May - June had acute panreatitis and cholecystectomy She is scheduled to start Azathioprine in May 2022. REVIEW OF SYSTEMS Per HPI and otherwise negative by full review of organ systems. ECOG PERFORMANCE STATUS: 1 PHYSICAL EXAMINATION: Vitals: BP 130/90 Pulse 73 Temp (Src) 97.1 (Temporal) Resp 16 Ht 5' 0 (1.52m) Wt 151 lb 0.2 oz (68.5kg) SpO2 100% BMI 29.49 kg/(m^2). Body surface area is 1.7 meters squared. Exam limited to gross visualization where appropriate. Gen.: This is an age-appropriate patient in no acute distress. Head: Appears atraumatic with no visible lesions. Eyes: Pupils equally round and reactive to light, extraocular muscles are intact. Neck: Supple. Respiratory: Appears to be respiring comfortably. Neurologic: Nonfocal to gross visualization. Alert and oriented 3. Psychiatric: No evidence of inappropriate anxiety or depression. Skin: Visible areas of skin without rash, lesions, wounds or petechiae. ALLERGIES: ALLERGIES Allergen Reactions Amoxicillin-Pot Cla* Hives, Rash Vancomycin Itching hives MEDICATIONS: ondansetron (ZOFRAN) 8 mg tablet Take 8 mg by mouth three times a day as needed. atorvastatin (LIPITOR) 40 mg tablet Take 40 mg by mouth. pantoprazole DR (PROTONIX) 40 mg tablet Take 1 tablet by mouth every 12 hours. folic acid 1 mg tablet lamoTRIgine ER (LAMICTAL XR) 100 mg 24 hr tablet Take 1 tablet by mouth twice daily. apixaban (ELIQUIS) 2.5 mg tab(s) Take by mouth twice daily. lanthanum (FOSRENOL) 1,000 mg chewable tablet metoprolol tartrate, short acting, (LOPRESSOR) 25 mg tablet Take 25 mg by mouth twice daily. DIALYVITE 100-1 mg tab Take 1 tablet by mouth once daily. gentamicin 0.1% 0.1 % cream Apply to affected area as needed. polyethylene glycol 3350 (MIRALAX, GLYCOLAX) 17 gram/dose powder Take by mouth as needed. Dissolve dose in 4 - 8 ounces of liquid and take as directed. azaTHIOprine (IMURAN) 50 mg tablet Take 1 tablet by mouth once daily. amLODIPine (NORVASC) 5 mg tablet Take 5 mg by mouth. (Patient not taking: Reported on 04/14/2023) Benzonatate 200 mg capsule Take 200 mg by mouth. (Patient not taking: Reported on 04/14/2023) sucralfate (CARAFATE) 100 mg/mL suspension Take 10 mL by mouth four times daily. (Patient not taking: Reported on 04/14/2023) potassium chloride ER (KLOR-CON) 20 mEq tablet Take 20 mEq by mouth. (Patient not taking: Reported on 04/14/2023) LABORATORY VALUES: WBC (k/uL) Date Value 04/14/2023 5.61 RBC (m/uL) Date Value 04/14/2023 3.05 (L) Hemoglobin (g/dL) Date Value 04/14/2023 10.0 (L) Hematocrit (%) Date Value 04/14/2023 30.8 (L) MCV (fL) Date Value 04/14/2023 101.0 (H) MCH (pg) Date Value 04/14/2023 32.8 MCHC (g/dL) Date Value 04/14/2023 32.5 RDW-CV (%) Date Value 04/14/2023 15.8 (H) Platelet Count (k/uL) Date Value 04/14/2023 183 MPV (fL) Date Value 04/14/2023 10.0 Glucose (mg/dL) Date Value 04/14/2023 100 (H) BUN (mg/dL) Date Value 04/14/2023 60 (H) Creatinine (mg/dL) Date Value 04/14/2023 17.64 (H) Sodium (mmol/L) Date Value 04/14/2023 141 Potassium (mmol/L) Date Value 04/14/2023 4.2 Chloride (mmol/L) Date Value 04/14/2023 99 CO2 (mmol/L) Date Value 04/14/2023 30 Protein, Total (g/dL) Date Value 04/14/2023 5.3 (L) Albumin (g/dL) Date Value 04/14/2023 3.6 (L) Calcium, Total (mg/dL) Date Value 04/14/2023 10.8 (H) Alkaline Phosphatase (U/L) Date Value 04/14/2023 65 Bilirubin, Total (mg/dL) Date Value 04/14/2023 0.3 AST (U/L) Date Value 04/14/2023 21 ALT (U/L) Date Value 04/14/2023 16 Cholesterol, Total (mg/dL) Date Value 12/03/2022 94 Triglyceride (mg/dL) Date Value 12/03/2022 106 DIAGNOSIS: (N18.6, D63.1, Z99.2) Anemia in chronic kidney disease, on chronic dialysis ([facility]) (primary encounter diagnosis) (M31.31) 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 with renal involvement ([facility]) (D64.9) Anemia, unspecified type PAST MEDICAL HISTORY Diagnosis Date Anemia in chronic kidney disease, on chronic dialysis ([facility]) 01/13/2023 Class 1 obesity in adult DVT (deep venous thrombosis) ([facility]) ESRD (end stage renal disease) ([facility]) Granulomatosis with polyangiitis with renal involvement ([facility]) History of transfusion RSV infection Seizure ([facility]) Stroke ([facility]) PAST SURGICAL HISTORY Procedure Laterality Date SECTION HX TONSILLECTOMY HX Social History Tobacco Use Smoking status: Never Passive exposure: Never Smokeless tobacco: Never Vaping Use Vaping Use: Never used Substance Use Topics Alcohol use: Not Currently Drug use: Not Currently FAMILY HISTORY Problem Relation Age of Onset Diabetes Mother Hypertension Mother Hyperlipidemia Father Hypertension Father Diabetes Maternal Grandmother Cancer Paternal Grandmother breast Cancer Paternal Grandfather mouth & throat I spent a total of 20 minutes on the date of service which included preparing to see the patient, [id number] patient care, completing clinical documentation, performing a medically appropriate examination, ordering medications, tests, or procedures, independently interpreting results (not separately reported), and communicating results to the patient/family/caregiver. Natali Child MD, CPE Hematology and Oncology Services Provided at: [place], [place] Scribe Attestation: This note was scribed by Zaida Floyd on April 14, 2023 under the direction and supervision of Dr. Natali Child. I attest that all of the information documented is correct to the best of my knowledge. Provider Attestation: I, Natali Child MD, attest that all information documented by the above scribe is correct, and was supervised by me and under my direction. CC: [address] [facility] [place] [address] Jeffrey Del Cid MD [address] [facility] [id number] documented in this encounter [facility] 04-14-2023 Note [facility] 04-13-2023 Note [facility] 04-07-2023 Note HNO ID: [id number] Author: NANCY BOSCH RN Service: ? Author Type: Registered Nurse Type: Progress Notes Filed: 04/07/2023 10:41 Note Text: Retacrit not given due to hgb 11.0. Pt was notified. Nancy Bosch RN [facility] 04-01-2023 Note HNO ID: [id number] Author: ESTEFANI FRIAS RN Service: ? Author Type: Registered Nurse Type: Progress Notes Filed: 04/01/2023 10:37 Note Text: No injection today, hgb 11.7 Estefani Frias RN [facility] 03-24-2023 Note [facility] 03-24-2023 Note [facility] 03-14-2023 Note HNO ID: [id number] Author: Maye العلي, RT(R) Service: Radiology Author Type: Technologist Type: Progress Notes Filed: 03/14/2023 8:47 AM Note Text: Radiology Service Progress Note PATIENT NAME: Mita Duarte DATE OF SERVICE: March 14, 2023 TIME: 8:47 AM PATIENT IDENTITY VERIFICATION COMPLETED USING TWO (2) IDENTIFIERS: Name and Date of confirmed by patient verbally and Name and Date of confirmed by identification band. FALL SCREENING: Has the patient had 2 falls in the last year or 1 fall with injury or currently using an Ambulatory Assistive Device (Walker, Cane, Wheelchair, Crutches, etc.)? No PATIENT GENDER DATA: Female. status: : No status: NO. PATIENT RELEVANT IMPLANT DATA REVIEWED: Not Applicable RADIOLOGY DEPARTMENT: CT; Exam(s) Completed: Chest PERIPHERAL IV DATA: Not applicable SIGNED BY: RT Alayna(R) March 14, 2023 8:47 AM [facility] 03-14-2023 History of Present illness Narrative Radiology Service Progress Note PATIENT NAME: Mita Duarte DATE OF SERVICE: March 14, 2023 TIME: 8:47 AM PATIENT IDENTITY VERIFICATION COMPLETED USING TWO (2) IDENTIFIERS: Name and Date of confirmed by patient verbally and Name and Date of confirmed by identification band. FALL SCREENING: Has the patient had 2 falls in the last year or 1 fall with injury or currently using an Ambulatory Assistive Device (Walker, Cane, Wheelchair, Crutches, etc.)? No PATIENT GENDER DATA: Female. status: : No status: NO. PATIENT RELEVANT IMPLANT DATA REVIEWED: Not Applicable RADIOLOGY DEPARTMENT: CT; Exam(s) Completed: Chest PERIPHERAL IV DATA: Not applicable SIGNED BY: RT Alayna(R) March 14, 2023 8:47 AM documented in this encounter [facility] 03-10-2023 Note HNO ID: [id number] Author: Estefani Frias RN Service: ? Author Type: Registered Nurse Type: Progress Notes Filed: 03/10/2023 11:19 AM Note Text: No injection today d/t hgb 11.0 Estefani Frias RN [facility] 03-03-2023 Note [facility] 03-03-2023 History of Present illness Narrative VIRTUAL VISIT FOLLOW UP Mita Duarte [id number] has requested a video telemedicine follow-up visit. Mita Duarte verbalized informed consent to proceed with the video telemedicine follow-up visit. Mita Duarte was informed that the details of this video visit would be recorded as part of their electronic medical record. I have communicated my name and active licensure. The patient's identity and physical location were verified at the time of this visit. Either the patient or their legal benefits representative has been informed of the risks and benefits of -- and alternatives to -- treatment through a remote evaluation and consents to proceed with the evaluation remotely. Patient location at time of call: [facility] Callback number: [phone] Additional encounter participants and relationship: none No chief complaint on file. I had a virtual visit with Ms. Duarte today for follow up of nausea and vomiting last seen 11/13/[address] Escalante. UPDATED HISTORY: Patient reports doing well and only here for a follow up visit. Reports visit to ER for fever and was treated with antibiotics (Augmentin for 5 days). Denied nausea, vomiting, diarrhea, constipation and abdominal pain. She is on Zofran as needed but uses it occasionally. She is also on Protonix BID since long time. No weight loss, hematemesis and rectal bleeding. EGD 12/22/2022 Impression: - The examination was otherwise normal. - 3 specimens collected Pathology FINAL DIAGNOSIS A. Duodenum, biopsy: - Duodenal mucosa with no significant pathologic change. B. Stomach, biopsy: - Gastric antral and mixed antral/oxyntic-type mucosa with lamina propria histiocytes with intracellular crystalline material, morphologically consistent with lanthanum. - No intestinal metaplasia or Helicobacter pylori organisms. C. Esophagus, biopsy: - Focal mild active esophagitis. PAST MEDICAL HISTORY Diagnosis Date Anemia in chronic kidney disease, on chronic dialysis ([facility]) 01/13/2023 Class 1 obesity in adult DVT (deep venous thrombosis) ([facility]) ESRD (end stage renal disease) ([facility]) 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) History of transfusion RSV infection Seizure ([facility]) Stroke ([facility]) PAST SURGICAL HISTORY Procedure Laterality Date SECTION HX TONSILLECTOMY HX FAMILY HISTORY Problem Relation Age of Onset Diabetes Mother Hypertension Mother Hyperlipidemia Father Hypertension Father Diabetes Maternal Grandmother Cancer Paternal Grandmother breast Cancer Paternal Grandfather mouth & throat Social History Tobacco Use Smoking status: Never Passive exposure: Never Smokeless tobacco: Never Vaping Use Vaping Use: Never used Substance Use Topics Alcohol use: Not Currently Drug use: Not Currently Current Outpatient Medications Medication Sig Dispense Refill predniSONE (DELTASONE) 10 mg tablet 20 mg. Benzonatate 200 mg capsule Take 200 mg by mouth. ondansetron (ZOFRAN) 8 mg tablet Take 8 mg by mouth three times a day as needed. azaTHIOprine (IMURAN) 50 mg tablet Take 1 tablet by mouth once daily. sucralfate (CARAFATE) 100 mg/mL suspension Take 10 mL by mouth four times daily. 414 mL 5 atorvastatin (LIPITOR) 40 mg tablet Take 40 mg by mouth. pantoprazole DR (PROTONIX) 40 mg tablet Take 1 tablet by mouth every 12 hours. folic acid 1 mg tablet potassium chloride ER (KLOR-CON) 20 mEq tablet Take 20 mEq by mouth. lamoTRIgine ER (LAMICTAL XR) 100 mg 24 hr tablet Take 1 tablet by mouth twice daily. 180 tablet 1 apixaban (ELIQUIS) 2.5 mg tab(s) Take by mouth twice daily. lanthanum (FOSRENOL) 1,000 mg chewable tablet metoprolol tartrate, short acting, (LOPRESSOR) 25 mg tablet Take 25 mg by mouth twice daily. DIALYVITE 100-1 mg tab Take 1 tablet by mouth once daily. gentamicin 0.1% 0.1 % cream Apply to affected area as needed. polyethylene glycol 3350 (MIRALAX, GLYCOLAX) 17 gram/dose powder Take by mouth once daily. Dissolve dose in 4 - 8 ounces of liquid and take as directed. No current facility-administered medications for this visit. ALLERGIES Allergen Reactions Amoxicillin-Pot Cla* Hives, Rash Vancomycin Itching hives PHYSICAL FINDINGS OF NOTE: General: alert and appropriate, in no distress and well-hydrated, well nourished , Psych: Appropriate mood and interaction Skin: no rash noted, Head: normocephalic, no abnormality or lesion noted, Eyes: visual acuity is grossly normal, no injection,, and EOMI, Ears: external ears normal without erythema or edema, Nose: external nose normal without rhinorrhea, Oropharynx: moist mucus membranes, no tonsillar hypertrophy/exudate, uvula midline and pharynx non-erythematous, lips, teeth and gums are without obvious lesion, Neck: full ROM, no cervical LNs noted, Respiratory: breathing non-labored, and no grunting/flaring/retractions, Chest: equal chest rise with normal respiratory effort, Abdomen: flat appearing. Visible protrusions or hernias: No Incisions/scars: None Areas of pain/tenderness: Denies Neuro: Patient seen sitting with normal appearing strength and coordination REVIEWED ITEMS CBC: WBC (k/uL) Date Value 02/24/2023 3.08 (L) Hematocrit (%) Date Value 02/24/2023 28.3 (L) MCV (fL) Date Value 02/24/2023 101.1 (H) Platelet Count (k/uL) Date Value 02/24/2023 214 Lymphocytes % (%) Date Value 02/24/2023 19.2 Hepatic Function Panel: Albumin (g/dL) Date Value 02/24/2023 3.3 (L) Bilirubin, Total (mg/dL) Date Value 02/24/2023 0.3 Bilirubin, Conjugated (mg/dL) Date Value 07/17/2021 <0.2 Alkaline Phosphatase (U/L) Date Value 02/24/2023 59 AST (U/L) Date Value 02/24/2023 12 (L) ALT (U/L) Date Value 02/24/2023 13 Protein, Total (g/dL) Date Value 02/24/2023 5.1 (L) Assessment IMPRESSION History of recurrent nausea-currently controlled 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 Pre transplant evaluation as planned I spent 30 minutes in the virtual visit, with more than 50% of the total [id number] time of the visit in counseling / coordination of care. I have confirmed and edited as necessary, the PFSH and ROS obtained by others. I will communicate my recommendations and prescriptions to the patient's primary care provider. Unrelated to E/M, telemedicine, or virtual visit service provided within previous 7 days. No E/M service or procedure anticipated within next 24 hours. Florence Barragan MD, MD March 03, 2023 5:58 AM Answers submitted by the patient for this visit: Review of Systems Gastroenterology (Submitted on 03/03/2023) Fever: No Chills: No Night Sweats: No Unitentional Weight Change: No A Cough: No Difficulty Breathing: No Chest Pain: No Belly pain: No A feeling of fullness or have belly pain after eating: No Food getting stuck in your throat or chest after eating: No Nausea - that is, a feeling like you could vomit: No Regurgitation - that is, food or liquid coming back up into your throat or mouth without vomiting, or feel burning behind your breast bone: No Loss of appetite: No To throw up or vomit: No Blood in your stools: No Black tarry stools: No Loose or watery stools: No The feeling like you need to empty your bowels right away - that is, feel as if you would have an accident: No Bowel incontinence - that is, have an accident because you cannot make it to the bathroom in time: No Problems with straining while having bowel movements , hard or lumpy stools, or feel unfinished (that you have not passed all your stool): No Pain in rectum or anus during bowel movements: No Problems with jaundice - that is, yellow discoloration of your skin or eyes, now or in the past: No Problems with having to flush the toilet more than two times due to oily stool, or see stool floating with oil: No documented in this encounter [facility] 03-03-2023 Note [facility] 02-11-2023 Miscellaneous Notes Addended by: NATI MAXWELL on: 02/11/2023 03:11 PM Modules accepted: Orders documented in this encounter [facility] 02-11-2023 Note [facility] 02-11-2023 History of Present illness Narrative Episode Visit Count: 1 Therapist That Will Accept/Oversee The Plan Of Care: Alissa Start of Care Date: 02/11/23 Onset Date: 10/13/22 Plan of Care Certification Date: 02/11/23 Next Certification Due Date: 05/06/23 Patient Identified by Name and Date of : Yes REHABILITATION AND SPORTS THERAPY PHYSICAL THERAPY EVALUATION PLAN OF CARE: Assessment: Mita Duarte presents with chief complaint of mild AMBER ; improved since seeing MD due to treating long infection she had that was producing several symptoms . The leaking interferes with bladder function . She presents with impairments in coordination, strength, and symptom management. Patient did not complete the PROMIS (Patient Reported Outcome Measures Information System). Prognosis for therapy is Good due to: current objective clinical presentation Fair due to: multiple co- morbidities . She will benefit from skilled therapy services to meet the goals established for this plan of care as noted below. Goals for Episode of Care: created on 02/11/23 through 05/06/23 Patient demonstrates independence and compliance with home exercise program. Patient to increase strength of pelvic floor to Power 4/5 and Endurance 10/10 in order to improve bladder/bowel control. Patient reports increased ability to fully empty bladder/bowels at least 80% of the time to normalize bladder/bowel function. Coordinate pelvic floor with thoracic diaphragm during Functional mobility and change in position to decreasing incontinence and/or pain. Patient Goals: weak PFM? Planned Interventions, Frequency, and Duration: Current Frequency: 1x/month Duration: 12 weeks Total Number of Visits Planned: 3 Planned Treatment Interventions: Neuromuscular re-education (75785), Therapeutic exercise (50084), Manual therapy (43589), Self-prison management (02046) PLAN FOR NEXT VISIT: progress difficulty PFM; re-check strength Patient demonstrates good understanding of plan of care and treatment. The above goals and plan of care were discussed and agreed upon by patient/family. SUBJECTIVE: when she saw MD had some symptoms and these are mostly gone. had some GI issues and took anti- biotics and is cleared up now. had more pain and leaking and now doing well. only issue is AMBER with cough and sneezing- coughed so long and now is dry / shift manager cough - only with the heavy cough may she leak. 3 months of vomiting and urinary issues and all of this reduced after the infection was treated. Patient Goals: weak PFM? 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 5 points is clinically meaningfully difference Percentiles provide an indication of how the patient's score ranks in relation to the general population. Higher percentile rankings indicate better function/quality of life. 50th percentile is the average of the general population and indicates half of respondents had a worse score. OBJECTIVE MEASURES WITH LEVEL OF FUNCTION: Pelvic Floor Births: 2 : 2 Urinary/Bowel History : Urinary History, Bowel History Difficulty starting stream: (for weeks urine would trickle out and take longer- 3 months time but didnt know she had an infection) slow or intermittent stream: No strains to void: No Incomplete emptying: No Hesitancy: No Stress Incontinence: Cough/sneeze (heavier cough raheem; KNACK May work and may not) Nocturia (times per night): 0 Daytime Frequency (hours): (fluids limited to 1500 due to CKF; has exceeded this at time) Bladder Padding: depends ; wear and not always wet; may not need it - heavier leak prior and when active may leak around the pad Fluid Intake: Water Water : (limited) Difficulty evacuating / Excessive Straining: No Incomplete emptying: No Bowel Movement Frequency: 1 Bowel Movement Consistency ([place]) : 4: Like a sausage or snake, smooth and soft (had diarrhea for 3 months with the infection) Bloating / abdominal pain: No Pelvic Floor Muscle Assessment Consent for pelvic assessment/testing and treatment: Patient was educated regarding pelvic floor physical therapy assessment/treatment which may include pelvic floor and girdle muscle assessment externally or internally (vaginal or rectal approach)., Patient verbalized consent for the above treatment approaches today. Patient understands they have control of the treatment and an opportunity to stop treatment at any time. Pelvic Floor Muscle Assessment: Muscle Dynamics, PERFECT Power: 3 Endurance: 5 Reps: 8 Contracton Pressure: Weak squeeze, felt as flick at various points along finger surface, not all the way around Duration of Contraction: >3 seconds Recruitment of pelvic floor muscles: Uncoordinated Extra-pelvic muscle activity: Holds breath, Adductors Range of Motion: Decreased Ability to Lengthen pelvic floor: Inconsistently Relaxation Postcontraction: Yes Paradoxical Contraction: No Breathing Pattern : coughing often; deep and improve with reps Diaphragmatic Breathing : Fair Pelvic Floor Manual Assessment External Pelvic Region Tenderness/ Hyperactivity - Trunk: Psoas, Iliacus Psoas: Right Iliacus: Right Pelvic Floor Tenderness/Hyperactivity: Tested Vaginally in Tested Vaginally in : Supine/hooklying Levator Ani: (no pain detected or hypertonia) Education: Education Learning Preferences: Demonstration, Explanation, Printed Materials, Performance Barriers: None Learning/educational needs: Home exercise program, Plan of Care Education Provided: Yes, see treatment interventions for education provided Education Provided To: Patient Education Mode/Type: Explanation/Discussion, Literature/Printed Materials, Demonstration Response to Education/Teach Back: States/Identifies, Return Demonstration, Requires Review/Additional Education TREATMENT: PT Treatment Interventions: Therapeutic Exercise, Manual Therapy, Neuromuscular Re-Education, Self-Fci Management Evaluation Therapeutic Exercise: 1: PFM therex minimum 2 sets of 10-12 reps daily in SL and hooklying and seated poses 2: addition of adductors and TA to some of the PFM therex 3: deep breathing and use of pressure to lengthen and optimize PFM motion 4: KNACK before coughing Skilled Intervention: Patient was educated in proper exercise technique and purpose for exercises. Skilled judgment was used in selection of appropriate interventions. Manual Therapy: 1: release of tight R psoas and ileacus Skilled Intervention: Manual skills to improve joint mobility, ROM, and decrease pain. Utilized anatomy knowledge of the therapist, and assessment of patient's response to intervention. Neuromuscular Re-Education: 1: use of deep breathing and PFM motion each direction Skilled Intervention: Patient education as noted. Self-Fci Management: 1: POC; anatomy and how PFM works ; bladder emptying Skilled Intervention: Correct performance of home program was facilitated with verbal and visual cueing. Billing * Evaluation Low Complexity: 1 Unit Therapeutic Exercise Treatment Minutes: 30 Manual TherapyTreatment Minutes: 10 Total Session Time (minutes): 57 Session Start Time : 1153 Session Stop Time : 1250 Nati Maxwell PT documented in this encounter [facility] 02-03-2023 Instructions Neena Richardson - 02/03/2023 4:01 PM EST Continue Epoietin today and every 2 weeks. Labs every 2 weeks. RTC in 4 weeks with repeat labs, Epoietin afterwards documented in this encounter [facility] 02-03-2023 History of Present illness Narrative Images from the original note were not included. 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 She has had chronic leukocytosis which is primarily neutrophilic and most compatible with chronic inflammatory process. This is unlikely to be a primary hematologic abnormality or malignancy. I obtained MPN workup which is negative so far. I would be happy to investigate further with bone marrow bx. if clarification is required prior to transplant, but in the meanwhile, we will follow her conservatively. PLAN: Continue Epoietin today and every 2 weeks. Labs every 2 weeks. RTC in 4 weeks with repeat labs, Epoietin afterwards HPI: CASE HISTORY: Reverse Chronological Order 02/03/2023 - Anticipated assumption of Aranesp from dialysis center 01/03/2022 Maintenance dose Rituxan 01/02/2022 - CT chest - 1. No suspicious pulmonary nodule or thoracic lymphadenopathy. No ground-glass or consolidative airspace opacities. 2. Interval cholecystectomy since the prior abdominal CT from 04/11/2021. Pneumobilia is new and is likely postsurgical. 3. The kidneys are small/atrophied compared to the prior abdominal CT from 04/11/2021, likely due to the patient's history of GPA/end-stage renal disease. 4. A few tiny foci of free intraperitoneal gas are probably due to peritoneal dialysis, new compared to the prior exam. 12/24/2022 - Sent for blood transfusion (Hgb 6.8) 09/2021 - Transaminitis - acute pancreatitis - underwent cholecystectomy 08/2021 - Started on peritoneal dialysis. 05/16/2021- 06/06/2021 - Rituxan weekly x 4 induction 04/18/2021 - Kidney biopsy: 26 glomeruli, 21 with crescents and extensive injury. 4 cellula, 17 fibrocellular with ruptured manjarrez 'capsules. 6 with segmental sclerosis and 3 fibrinoid necrosis. One with interlobular artery with fibrinoid necrosis. Neg IF and EM . 04/2021 - Anuric, vomiting - cANCA 1:640. pr3 1319. CRP 22.96 N< 1. SD rate >100. Hep neg. TB NEG. GBM abs neg 04/12/2021 - CT chest: Smooth symmetric bilateral interlobular septal thickening with edema. Tree in bud opacities in right upper lobe Ill defining patchy ground glass opacities in right middle and upper lobes alveolar hemorrhage vs multi focal pneumonia Splenomegaly 11/2020 - developed sinus infection Nasal bloody discharge. Nasal crusting - doesn't do any rinses - 3 courses of abx - unresolved.(Z pack and augmentin) Updated Visit, February 02, 2023: Mita returns today for follow up visit and Epoietin, accompanied by Spenser. She was on Augmentin for 5 days after her GI issues were deemed to be caused by an unknown infection. The issues are now nearly resolved. She reports feeling a bit better overall. Reviewed her CBC, her anemia is improving after increasing Epoietin. She qualifies again today. Updated Visit, January 13, 2023: Mita returns after blood transfusion, Hgb responded to a safer level. She is actively getting iron and Aranesp/biosimilar with dialysis. Labs are pending today, will determine need for additional iron. She felt like she had a bit more energy after the transfusions, but still feeling very tired. She has not had any iron in about a month. Receives the Aranesp every 2-3 weeks. Has a cough due to GI issues, not new. Updated Visit, December 24, 2022: Spenser is with her. 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 EGD done because can't keep down any food or drink. Lost 20 lbs since October. Working on transplant kidney. Very anemic today. - recommend transfusion Updated Visit, May 11, 2022: Abdominal pain is improving.leucocytosis is stable and is primarily composed of neutrophils. MPN workup to date is negative (BCR-ABL, JAK2 exon 12-16 sequencing), JAK2 V16F mutation is pending. She remains afebrile. 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 Has been referred for increased leukocytosis over the past few months. Is on peritoneal dialysis early August 2021 Is on epo replacement Rituxan finished 01/09/2022May - June had acute panreatitis and cholecystectomy She is scheduled to start Azathioprine in May 2022. REVIEW OF SYSTEMS Per HPI and otherwise negative by full review of organ systems. ECOG PERFORMANCE STATUS: 1 PHYSICAL EXAMINATION: Vitals: BP 136/100 Pulse 103 Temp (Src) 97.9 (Temporal) Resp 16 Ht 5' 0 (1.52m) Wt 160 lb (72.6kg) SpO2 100% BMI 31.25 kg/(m^2). Body surface area is 1.75 meters squared. Exam limited to gross visualization where appropriate. Gen.: This is an age-appropriate patient in no acute distress. Head: Appears atraumatic with no visible lesions. Eyes: Pupils equally round and reactive to light, extraocular muscles are intact. Neck: Supple. Respiratory: Appears to be respiring comfortably. Neurologic: Nonfocal to gross visualization. Alert and oriented 3. Psychiatric: No evidence of inappropriate anxiety or depression. Skin: Visible areas of skin without rash, lesions, wounds or petechiae. ALLERGIES: ALLERGIES Allergen Reactions Amoxicillin-Pot Cla* Hives, Rash Vancomycin Itching hives MEDICATIONS: predniSONE (DELTASONE) 10 mg tablet^20 mg.^Disp: ^Rfl: Benzonatate 200 mg capsule^Take 200 mg by mouth.^Disp: ^Rfl: ondansetron (ZOFRAN) 8 mg tablet^Take 8 mg by mouth three times a day as needed.^Disp: ^Rfl: azaTHIOprine (IMURAN) 50 mg tablet^Take 1 tablet by mouth once daily.^Disp: ^Rfl: sucralfate (CARAFATE) 100 mg/mL suspension^Take 10 mL by mouth four times daily.^Disp: 414 mL^Rfl: 5 atorvastatin (LIPITOR) 40 mg tablet^Take 40 mg by mouth.^Disp: ^Rfl: pantoprazole DR (PROTONIX) 40 mg tablet^Take 1 tablet by mouth every 12 hours.^Disp: ^Rfl: folic acid 1 mg tablet^^Disp: ^Rfl: potassium chloride ER (KLOR-CON) 20 mEq tablet^Take 20 mEq by mouth.^Disp: ^Rfl: lamoTRIgine ER (LAMICTAL XR) 100 mg 24 hr tablet^Take 1 tablet by mouth twice daily.^Disp: 180 tablet^Rfl: 1 apixaban (ELIQUIS) 2.5 mg tab(s)^Take by mouth twice daily.^Disp: ^Rfl: lanthanum (FOSRENOL) 1,000 mg chewable tablet^^Disp: ^Rfl: metoprolol tartrate, short acting, (LOPRESSOR) 25 mg tablet^Take 25 mg by mouth twice daily.^Disp: ^Rfl: DIALYVITE 100-1 mg tab^Take 1 tablet by mouth once daily.^Disp: ^Rfl: gentamicin 0.1% 0.1 % cream^Apply to affected area as needed.^Disp: ^Rfl: polyethylene glycol 3350 (MIRALAX, GLYCOLAX) 17 gram/dose powder^Take by mouth once daily. Dissolve dose in 4 - 8 ounces of liquid and take as directed.^Disp: ^Rfl: LABORATORY VALUES: WBC (k/uL) Date Value 02/03/2023 14.46 (H) RBC (m/uL) Date Value 02/03/2023 3.24 (L) Hemoglobin (g/dL) Date Value 02/03/2023 9.9 (L) Hematocrit (%) Date Value 02/03/2023 31.1 (L) MCV (fL) Date Value 02/03/2023 96.0 MCH (pg) Date Value 02/03/2023 30.6 MCHC (g/dL) Date Value 02/03/2023 31.8 RDW-CV (%) Date Value 02/03/2023 23.4 (H) Platelet Count (k/uL) Date Value 02/03/2023 239 MPV (fL) Date Value 02/03/2023 11.0 Glucose (mg/dL) Date Value 01/27/2023 106 (H) BUN (mg/dL) Date Value 01/27/2023 45 (H) Creatinine (mg/dL) Date Value 01/27/2023 22.25 (H) Sodium (mmol/L) Date Value 01/27/2023 142 Potassium (mmol/L) Date Value 01/27/2023 4.3 Chloride (mmol/L) Date Value 01/27/2023 98 CO2 (mmol/L) Date Value 01/27/2023 29 Protein, Total (g/dL) Date Value 01/27/2023 4.9 (L) Albumin (g/dL) Date Value 01/27/2023 3.0 (L) Calcium, Total (mg/dL) Date Value 01/27/2023 9.8 Alkaline Phosphatase (U/L) Date Value 01/27/2023 77 Bilirubin, Total (mg/dL) Date Value 01/27/2023 0.3 AST (U/L) Date Value 01/27/2023 13 ALT (U/L) Date Value 01/27/2023 11 Cholesterol, Total (mg/dL) Date Value 12/03/2022 94 Triglyceride (mg/dL) Date Value 12/03/2022 106 DIAGNOSIS: (N18.6, D63.1, Z99.2) Anemia in chronic kidney disease, on chronic dialysis (HCC) (primary encounter diagnosis) Plan: CBC + DIFF, COMP METABOLIC PANEL, IRON + TIBC, FERRITIN BLD, VITAMIN B12 BLOOD, FOLATE SERUM PAST MEDICAL HISTORY Diagnosis Date Anemia in chronic kidney disease, on chronic dialysis (HCC) 01/13/2023 Class 1 obesity in adult DVT (deep venous thrombosis) (HCC) ESRD (end stage renal disease) (HCC) 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) History of transfusion RSV infection Seizure (HCC) Stroke (HCC) PAST SURGICAL HISTORY Procedure Laterality Date SECTION HX TONSILLECTOMY HX Social History Tobacco Use Smoking status: Never Passive exposure: Never Smokeless tobacco: Never Vaping Use Vaping Use: Never used Substance Use Topics Alcohol use: Not Currently Drug use: Not Currently FAMILY HISTORY Problem Relation Age of Onset Diabetes Mother Hypertension Mother Hyperlipidemia Father Hypertension Father Diabetes Maternal Grandmother Cancer Paternal Grandmother breast Cancer Paternal Grandfather mouth & throat I spent a total of 30 minutes on the date of service which included preparing to see the patient, [id number] patient care, completing clinical documentation, performing a medically appropriate examination, counseling and educating the patient/family/caregiver, ordering medications, tests, or procedures, independently interpreting results (not separately reported), communicating results to the patient/family/caregiver, and care coordination (not separately reported). Natali Child MD, CPE Hematology and Oncology Services Provided at: [place], [place] Scribe Attestation: This note was scribed by Neena Richardson on February 03, 2023 under the direction and supervision of Dr. Natali Child. I attest that all of the information documented is correct to the best of my knowledge. Provider Attestation: I, Natali Child MD, attest that all information documented by the above scribe is correct, and was supervised by me and under my direction. CC: Te Avendaño [id number] [facility] [place] [address] Jeffrey Del Cid MD [address] [facility] [id number] documented in this encounter [facility] 02-03-2023 Note [facility] 01-27-2023 Note [facility] 01-27-2023 History of Present illness Narrative Ok to proceed with injection per pharmacy team. Anita Castaneda RN Triage checking with Dr. Fitch about transfusion. She will let patient know. Anita Castaneda RN documented in this encounter [facility] 01-26-2023 Miscellaneous Notes Patient has an appt on 02/03/23. Would you like labs, if so place orders. Hilda Mckeon MA documented in this encounter [facility] 01-13-2023 Note [facility] 01-12-2023 Note HNO ID: [id number] Author: Sara Darden RN Service: ? Author Type: Registered Nurse Type: Progress Notes Filed: 01/12/2023 1:21 PM Note Text: Present along with physician during pelvic exam with Dr. Ranulfo dubois patient. aSra Darden RN [facility] 01-12-2023 History of Present illness Narrative Present along with physician during pelvic exam with Dr. Ranulfo dubois patient. Sara Darden RN Images from the original note were not included. [facility] NEW PATIENT CLINIC NOTE SERVICE DATE: 01/12/2023 SERVICE TIME: 11:24 AM NAME: Mita Duarte REFERRED BY: Consultation requested by Dr. Philip Escalante [address] [place] [address] for an opinion regarding pelvic pain. My final recommendations will be communicated back to the requesting physician by way of shared medical record or letter via [place] mail. CHIEF COMPLAINT: vaginal pain HISTORY OF PRESENT ILLNESS: Mita Duarte is a 42 year old F with PMH including 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 with ESRD on HD x1 year, seizure disorder and CVA on Eliquis presenting with vaginal pain. The patient reports pelvic pressure and urine leakage. Feels pressure/pain vaginally. AMBER and insensate. Does not urinate volitionally ever. Gets urinary urgency but unable to urinate. Denies vaginal discharge. Ongoing diarrhea with urgency and occ UUI. Irreg periods Reports she has undergone testing that showed fluid in the pelvis and a distended bladder. RBUS 11/05/22 Findings: There is no collecting system dilatation in either kidney. A single simple and benign-appearing cortical cyst is displayed in the upper pole of the left kidney that measures 2.4 cm in greatest dimension. This needs no specific further imaging follow-up. No other focal renal lesions are displayed on either side. Both kidneys display some mild diffuse increase in parenchymal echogenicity is consistent with changes from chronic medical renal disease. The right kidney measures 7.5 centimeters in length , and the left kidney 7.8 centimeters . The urinary bladder was empty at the time of attempted scanning.. Also experiencing GERD and can't keep down liquids. 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) History of transfusion Seizure (HCC) Stroke (HCC) PAST SURGICAL HISTORY PAST SURGICAL HISTORY Procedure Laterality Date SECTION HX TONSILLECTOMY HX FAMILY HISTORY FAMILY HISTORY Problem Relation Age of Onset Diabetes Mother Hypertension Mother Hyperlipidemia Father Hypertension Father Diabetes Maternal Grandmother Cancer Paternal Grandmother breast Cancer Paternal Grandfather mouth & throat SOCIAL HISTORY Social History Tobacco Use Smoking status: Never Passive exposure: Never Smokeless tobacco: Never Vaping Use Vaping Use: Never used Substance Use Topics Alcohol use: Not Currently Drug use: Not Currently MEDICATIONS: Current Outpatient Medications Medication Sig azaTHIOprine (IMURAN) 50 mg tablet Take 1 tablet by mouth once daily. sucralfate (CARAFATE) 100 mg/mL suspension Take 10 mL by mouth four times daily. atorvastatin (LIPITOR) 40 mg tablet Take [address] (PROTONIX) 40 mg tablet Take 1 tablet by mouth every 12 hours. folic acid 1 mg tablet potassium chloride ER (KLOR-CON) 20 mEq tablet Take 20 mEq by mouth. lamoTRIgine ER (LAMICTAL XR) 100 mg 24 hr tablet Take 1 tablet by mouth twice daily. apixaban (ELIQUIS) 2.5 mg tab(s) Take by mouth twice daily. lanthanum (FOSRENOL) 1,000 mg chewable tablet metoprolol tartrate, short acting, (LOPRESSOR) 25 mg tablet Take 25 mg by mouth twice daily. DIALYVITE 100-1 mg tab Take 1 tablet by mouth once daily. gentamicin 0.1% 0.1 % cream Apply to affected area as needed. polyethylene glycol 3350 (MIRALAX, GLYCOLAX) 17 gram/dose powder Take by mouth once daily. Dissolve dose in 4 - 8 ounces of liquid and take as directed. Cholecalciferol, Vitamin D3, 50 mcg (2,000 unit) cap Take 3,000 Units by mouth once daily. (Patient not taking: Reported on 01/12/2023) Current Facility-Administered Medications Medication Dose Route Frequency sodium chloride 0.9 % (flush) 10 mL (BD POSIFLUSH) 10 mL INTRAVENOUS DIRECTED PRN CURRENT ALLERGIES: Allergies As of Date: 01/12/2023 Allergen Noted Reaction VANCOMYCIN 12/03/2022 Itching Fully Assessed 01/04/2023 OBJECTIVE PHYSICAL EXAM: FIELD REPRESENTATIVES DIRECTOR/MA/Fellow cattle manager present. There were no vitals filed for this visit. There is no height or weight on file to calculate BMI. General: No acute distress, well appearing Abdomen: Soft, NT, nondistended Extremities: Normal range of motion, no LE edema : External genitalia: Normal appearing, mild atrophy, no skin lesions Vestibule: Nontender, normal appearing Urethra: Normal appearing urethral meatus, no masses, nontender, no diverticulum, minimal hypermobility Bladder: Nontender Vagina: Normal appearing, minimal discharge, no cysts or masses. Pelvic Floor Musculature: 3/5 TTP throughout Anus and perineum grossly nl POP-Q: Prolapse noted: No PVR: 0 mL via bladder US Straight cath: Urethra was prepped and draped in sterile fashion. 18F straight catheter was inserted atraumatically into the bladder and <5mL clear yellow urine drained ASSESSMENT and PLAN: 42 year old female with vaginal pain most likely secondary to PFD, AMBER. Vaginal swab PFPT All of the patients questions and concerns were discussed in detail. Fercho Johnson MD [facility] PVR = 0 ml Via bladder scan. documented in this encounter [facility] 01-12-2023 Note [facility] 01-12-2023 Note HNO ID: [id number] Author: Priya Calderon LPN Service: ? Author Type: ? Type: Progress Notes Filed: 01/12/2023 1:21 PM Note Text: PVR = 0 ml Via bladder scan. [facility] 01-06-2023 Miscellaneous Notes See other encounter. Alberta Juan RN BSN Called patient and left a VM message to call us back at the office. Alberta Juan RN BSN Mita Duarte is calling Suyapa Louise MD today with concern regarding Electronic Communication ([facility] asking for office visit note from 12/03/2022 to [phone]) Patient has been identified by name and birthdate. Duration of symptoms: N/A Person calling: self Call patient at: at home [phone] (home) [phone] (cell) Was an appointment scheduled: No Closing statement: Symptom Call: Thank you for calling [facility], your call is very important. A nurse will call in approximately 2-4 hours during business hours. If this is an emergency, please contact 911. Ele Alvarez documented in this encounter [facility] 01-06-2023 Miscellaneous Notes Spoke to patient. Patient stated it was okay to send 12/[address] Louise to her dialysis center at [phone]. Fax was sent with confirmation. Patient was identified verbally with their name and date of . Alberta Juan RN BSN Mita Duarte is calling Suyapa Louise MD today -returning call from Alberta WeaverAilyn Please call her back. No chief complaint on file. Patient has been identified by name and birthdate. Duration of symptoms: N/A Person calling: self Call patient at: on cell [phone] (home) [phone] (cell) Was an appointment scheduled: No Closing statement: Symptom Call: Thank you for calling [facility], your call is very important. A nurse will call in approximately 2-4 hours during business hours. If this is an emergency, please contact 911. Alesia Mcdowell documented in this encounter [facility] 01-06-[address] lab orders documented in this encounter [facility] 01-06-2023 Miscellaneous Notes Submitted request for medical information (office notes from Dec, Nov, Oct & September Faxed to [phone] confirmed at 4pm on 01/05/23 documented in this encounter [facility] 01-01-2023 Nurse Note THE FOLLOWING WAS EVALUATED Motivation To Learn: Interested Family/Significant Other Support: Unable to assess - Family not present Cognitive Ability: Alert and oriented Patient Learns Best By: Individual Instruction The Following Influencing Factors Were Barriers To This Education Session: None The Following Physical Limitations Were Barriers To This Education Session: None Instruction Provided To: Patient Procedure: Loop Recorder Implant Pre-procedure information reviewed: Patient ID verified Procedure verified Physician verified Explanation of procedure Sedation level during procedure MD medication instructions from EP lab request n/a Travel instructions/restrictions Scheduling information Possible same day discharge versus overnight hospital stay Check out time Family waiting area Physician contact with family after procedure Post Procedure Expectations reviewed: Inpatient hospital stay Post procedure antiarrhythmics and anticoagulation will be discussed with Physician, nurse practitioner or Physician assistant casino shift manager upon discharge Instructions for transmitting EKG to Monitoring Center 3 month follow up instructions Contact number for information and questions Patient Evaluation: Verbalizes understanding Follow Up Plan: Follow up as directed by . Supplemental Material Given: Written Material Instructed By Cathy Neil RN. In Department of CARDIOLOGY. documented in this encounter [facility] 12-31-2022 History of Present illness Narrative Images from the original note were not included. [facility] Department of Cardiovascular Medicine SECTION OF CARDIAC PACING and ELECTROPHYSIOLOGY OUTPATIENT VISIT DATE December 30, 2022 OUTPATIENT VISIT TYPE NEW PRIMARY CARE PHYSICIAN: Jeffrey Del Cid MD ([facility]) [address] [place] [address] CHIEF COMPLAINT: Awaiting ILR implantation. HISTORY OF PRESENT ILLNESS/NURSING INTAKE HISTORY: Ms. Duarte is a 42 year old female who presents today prior to ILR implantation on 01/04/2023. 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 On 08/05/2022 she had sudden onset weakness in the right arm and a few minutes after she was unable to talk. She was given IV thrombolysis at an OSH. She had improvement and now some residual speech difficulty. She was initially treated with aspirin and Plavix, then transitioned to Eliquis 5 mg BID since August for stroke prevention. She reports she had a TIA described as sudden speech difficulty that lasted about 30 seconds to 1 minute. She was then changed to Eliquis 2.5 mg BID (due to kidney failure on dialysis). The patient notes she first had symptoms of 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 with sinus symptoms in December 2020, but diagnosed in Mar 2021 with a renal biopsy. Brain MRI in July shwoed left frontal acute ischemic infarct. Heart monitor worn locally showed no atrial fibrillation. She is scheduled for ILR implantation on 01/04/2023. She reports lightheadedness. She denies palpitations, chest pain, shortness of breath, or syncope. -Brain MRI w/wo 08/05/2022: left frontal acute ischemic infarct. Old infarct L cerebellum, and scattered punctate cortical T2/FLAIR hyperintensities (notably MRI was obtained after DSA) - DSA 08/05/22: unremarkable - c-ANCA and PR3 high positive 03/2021 - Anticardiolipin, B2GP ab 07/2022: negative 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) History of transfusion Seizure (HCC) Stroke (HCC) PAST SURGICAL HISTORY Procedure Laterality Date SECTION HX TONSILLECTOMY HX SOCIAL HISTORY Social History Tobacco Use Smoking status: Never Passive exposure: Never Smokeless tobacco: Never Vaping Use Vaping Use: Never used Substance Use Topics Alcohol use: Not Currently Drug use: Not Currently FAMILY HISTORY Problem Relation Age of Onset Diabetes Mother Hypertension Mother Hyperlipidemia Father Hypertension Father Diabetes Maternal Grandmother Cancer Paternal Grandmother breast Cancer Paternal Grandfather mouth & throat ALLERGIES: ALLERGIES Allergen Reactions Vancomycin Itching hives MEDICATIONS: azaTHIOprine (IMURAN) 50 mg tablet^Take 1 tablet by mouth once daily.^Disp: ^Rfl: sucralfate (CARAFATE) 100 mg/mL suspension^Take 10 mL by mouth four times daily.^Disp: 414 mL^Rfl: 5 atorvastatin (LIPITOR) 40 mg tablet^Take 40 mg by mouth.^Disp: ^Rfl: pantoprazole DR (PROTONIX) 40 mg tablet^Take 1 tablet by mouth every 12 hours.^Disp: ^Rfl: folic acid 1 mg tablet^^Disp: ^Rfl: potassium chloride ER (KLOR-CON) 20 mEq tablet^Take 20 mEq by mouth.^Disp: ^Rfl: lamoTRIgine ER (LAMICTAL XR) 100 mg 24 hr tablet^Take 1 tablet by mouth twice daily.^Disp: 180 tablet^Rfl: 1 apixaban (ELIQUIS) 2.5 mg tab(s)^Take by mouth twice daily.^Disp: ^Rfl: lanthanum (FOSRENOL) 1,000 mg chewable tablet^^Disp: ^Rfl: metoprolol tartrate, short acting, (LOPRESSOR) 25 mg tablet^Take 25 mg by mouth twice daily.^Disp: ^Rfl: DIALYVITE 100-1 mg tab^Take 1 tablet by mouth once daily.^Disp: ^Rfl: Cholecalciferol, Vitamin D3, 50 mcg (2,000 unit) cap^Take 3,000 Units by mouth once daily.^Disp: ^Rfl: gentamicin 0.1% 0.1 % cream^Apply to affected area as needed.^Disp: ^Rfl: polyethylene glycol 3350 (MIRALAX, GLYCOLAX) 17 gram/dose powder^Take by mouth once daily. Dissolve dose in 4 - 8 ounces of liquid and take as directed.^Disp: ^Rfl: REVIEW OF SYSTEMS: General, constitutional: Weight loss or gain- yes, Fever or chills-No, Weakness-yes, Trouble sleeping-No. Head, Eyes, Ears, Mouth: Headache, head injury-No, Glasses or contact lenses-yes, Pain-No, Impaired vision-No, Decreased hearing-No, Ringing in ears-No, Nose bleeds-No, Dental difficulties-No, Bleeding gums-No, Dentures-No. Neck: Swelling-No, Pain-No, Stiffness-No. Respiratory: Cough-yes, Spitting up blood-No, Shortness of breath-No, Wheezing or asthma-No. Musculoskeletal: Muscle or joint pain or stiffness-No, Joint swelling-No. Gastrointestinal: Difficulty swallowing-No, Heartburn-yes, Change in bowel habits-yes, Blood in stool, Dark black stools-No. Neurological/Psychiatric: Weakness, paralysis-No, Numbness-No, Tingling-No, Tremor-No, Nervousness or anxiety-No, Depressed mood-No, Memory loss-No. Skin: Rash-No, Itching-yes. Hematological: Easy bruising-yes, Easy bleeding-No. Endocrine: Heat or cold intolerance-No, Excessive sweating-No, Frequent urination-No, Frequent thirst-yes. Terese Oviedo RN PHYSICAL EXAMINATION: LMP 10/26/2022 (Exact Date) General: Well appearing, in no acute distress, speaking in complete sentences. CARDIOVASCULAR MEDICINE TESTING: EKG 12/30/2022 reviewed: CT chest w/o 01/02/22: 1. No suspicious pulmonary nodule or thoracic lymphadenopathy. No ground-glass or consolidative airspace opacities. 2. Interval cholecystectomy since the prior abdominal CT from 04/11/2021. Pneumobilia is new and is likely postsurgical. 3. The kidneys are small/atrophied compared to the prior abdominal CT from 04/11/2021, likely due to the patient's history of GPA/end-stage renal disease. 4. A few tiny foci of free intraperitoneal gas are probably due to peritoneal dialysis, new compared to the prior exam. MRI brain w/o 07/31/22: * Multifocal acute ischemia, notably dorsolateral left frontal lobe [MCA territory], smaller discontiguous areas right MCA territory, findings worrisome for central embolic phenomenon. * Left cerebellar encephalomalacia. * Signal abnormality left mandibular body, sequelae odontogenic disease. SYLVESTER ([facility]) 08/03/22: No left atrial appendage thrombus noted. No PFO noted on this study. No evidence of valvular vegetation noted on this study. Left Ventricle: Left ventricle appears normal in size. Wall thickness is normal. Systolic function is normal with an ejection fraction of 60-65%. No segmental wall motion abnormalities. Left Atrium: Left atrium is normal in size. The pulmonary veins appear normal with normal venous flow. There is no thrombus in the left atrial appendage. The left atrial appendage is normal. The left atrial appendage emptying velocity is normal. The interatrial septum is intact. Agitated saline bubble study revealed no evidence of right to left interatrial shunting . Right Ventricle: Right ventricular size appears normal. Systolic function is normal. Aortic Valve: The aortic valve is trileaflet. There is no regurgitation or stenosis. No vegetation present on the aortic valve. Mitral Valve: Mitral valve structure is normal. There is trace regurgitation. There is no evidence of mitral valve stenosis. No vegetation present on the mitral valve. Tricuspid Valve: No vegetation present on the tricuspid valve. Pulmonic Valve: No vegetation present on the pulmonic valve. DSA ([facility]) 08/05/22: no structural vascular abnormality to explain stroke. Specifically, no vasculitis, atherosclerosis, large vessel occlusion, distal emboli, AVM, or fistula is seen. MRI brain w/o ([facility]) 08/05/22: Evolving ischemic change within the bilateral frontal lobes, left more so than right. Extent of confluence in the left frontal lobe is somewhat greater and prior. No new sites of involvement. No hemorrhagic conversion. Heart monitor 09/2022 Patient was monitored between August 31, 2022 to September 29, 2022. There was 1 episode of sinus tachycardia at an average rate of 155 beats per minute noted, this occurred on September 25, 2022 at 11:59 a.m.. No significant other sustained tachy or Lewis arrhythmias were seen. No episodes of atrial fibrillation were noted. IMPRESSION: Ms. 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 On 08/05/2022 she had sudden onset weakness in the right arm and a few minutes after she was unable to talk. She was given IV thrombolysis at an OSH. She had improvement and now some residual speech difficulty. She was initially treated with aspirin and Plavix, then transitioned to Eliquis 5 mg BID since August for stroke prevention. She reports she had a TIA described as sudden speech difficulty that lasted about 30 seconds to 1 minute. She was then changed to Eliquis 2.5 mg BID (due to kidney failure on dialysis). Brain MRI in July shwoed left frontal acute ischemic infarct. Heart monitor worn locally showed no atrial fibrillation. She is scheduled for ILR implantation on 01/04/2023. She is here for Loop recorder implantation scheduled on 01/06. The detail of the procedure was explained well. Consent obtained. PLAN AND RECOMMENDATIONS: # Cryptogenic stroke, now on Eliquis 2.5mg BID # ESRD due to GPA on dialysis # Granulomatosis with polyangiitis (GPA) - Loop recorder on 01/06 I personally interviewed, confirmed and edited the above information as obtained by others. Signature: DANIEL TORO MD, PhD Department: Associate Staff, Department of Cardiac Electrophysiology DATE of SERVICE: 12/31/2022 TIME of SERVICE: 8:22 AM documented in this encounter [facility] 12-31-2022 Note [facility] 12-30-2022 Instructions Kenny Orozco RN - 12/30/2022 3:35 PM EDT As part of your transplant evaluation you are required to complete the following additional items. Please be aware that your evaluation will not be considered complete until all testing have been submitted. YOU WILL NOT BE LISTED ON THE TRANSPLANT LIST until these results have been received by our office, reviewed by the transplant committee and approved for transplant. You will be contacted with the decision of the transplant committee at a future date. The following will be scheduled for you at a [facility] facility: CARDIAC: Repeat ECHO CANCER SCREENING: NA ADDITIONAL CONSULTS Dermatology and Gastroenterology Imaging Studies: NA Miscellaneous Items: Rabbit labs Hypercoag panel Protocol labs You will be responsible for scheduling your testing and consults. Please call [phone] to schedule. To check on your status of your evaluation, please contact your coordinator, Kenny Orozco RN [phone]. Kenny Orozco RN Kidney/Pancreas [facility] Resource Manager [facility] documented in this encounter [facility] 12-30-2022 History of Present illness Narrative Images from the original note were not included. [facility] [place] [facility] Transplant Evaluation CC: Consultation for Kidney transplant evaluation. Referred by: Delma Osorio MD [address] [place] [address] I will communicate with the referring provider by letter and/or shared electronic medical record. HPI: 42 yo female here for ktxp ongoing evaluation. ESRD sec [facility] bx proven. See below. Hemo dialysis started July 2021 transitioned to PD September 2021. Last seen October 2021 and presented at [facility] 01/23/2022. Pt was approved but listing delayed b/c dental clearance required by insurance. Since last seen pt has completed dental clearance however had a CVA (May 2022), taking Eliquis currently then seizure (July 2022). Now returning to see the team prior to listing. Hx of Anemia, HTN, DVT, blood transfusion, tonsillectomy, caesarian surgery, lung nodules, osteomalacia, obesity and PTH. Hemodialysis: July 2021 then PD since September 2021 UOP: >1 Cup per day LD: yes (family) Blood transfusion:Yes Blood thinner: Eliquis Last hospitalization: Spring 2022 for seizure. Taking LaMICtal XR Midodrine: Denies Hernia: Denies Abdominal surgery: DVT: Apr 2022. Per progress note thrombus in the great and small saphenous and varicose veins of the left lower extremity skin cancers: denies UTI: >2 years ago Kidney stones:Denies G 3 P 2 D & C x 1 Since last seen CVA (May 2022), taking Eliquis currently then seizure (July 2022). Currently following with GI for epigastric pain, nausea, vomiting, lightheadedness and and dry cough. COMMITTEE DECISION: 01/23/2022 The selection criteria have been MET and patient will be placed on the kidney transplant waiting list. Indication(s) for transplantation: End-stage renal disease on dialysis. Follow up in 12 months for re-evaluation with Historical Guide Surgeon. Needs Pulmonary clearance & HBV vaccine. ALERT RECEIVING rituximab infusions Pulm clearance obtained 02/11/2022 Gastroenterology November 13, 2022 PRESENTING COMPLAINT This 42 year old female patient presents with ESRD from 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 on peritoneal dialysis. C/o N, V, dehydration - severe now, ER visit - responded to Zofran, Pepcid, and fluids. Sx are back, but not as severe. Daily PD. Cannot hold down meds. EGD recommended by ER doctor.... Mita Gerald presents for multiple concerns as stated in HPI, epigastric pain, nausea, vomiting, lightheadedness and and dry cough. Physical exam with tachycardia on arrival, this improved throughout ED course, remainder VSS. Orthostatic blood pressure obtained and normal. Lungs clear bilaterally without any wheezing, rhonchi or rales, heart sinus tach, abdomen is soft, nontender on my examination, no rebound or guarding, peritoneal dialysis catheter in situ without any erythema or drainage. No appreciable lower extremity edema. Was obtained from the lobby prior to my assessment: CBC with stable H&H, no leukocytosis. CMP with baseline elevated renal function, remainder of LFTs and electrolytes WNL. Magnesium 1.9. HST trend 195, 188, 186, low suspicion for ACS. CRP normal at 0.5. Sed rate 120 however patient has a history of chronic elevation. COVID, flu and RSV negative. X-ray negative for acute cardiopulmonary process. Patient given 500 cc IV fluid bolus, Pepcid and Zofran with significant improvement in her symptoms. Additional 500 cc fluid bolus given as well as p.o. challenge which patient tolerated without any difficulties or recurrence of her epigastric abdominal pain, nausea or vomiting. Discussed with patient the need to follow-up with GI as she likely needs an endoscopy to evaluate for gastritis versus PUD versus other ailment in her epigastric region, follow-up request placed however pending at time of disposition. Etiology of her lightheadedness appears to be likely related to volume as she has not not been eating and drinking sufficiently. Advised patient to continue drinking plenty of oral intake and follow-up closely with GI as well as her PCP. She was prescribed a short course of Zofran and Pepcid instructed on strict return to ED precautions. She is understanding and agreeable to discharge plan, all of her questions and concerns were addressed the best my ability. She was stable throughout prior to discharge. Philip Escalante MD ENT 12/03/2022 Assessment and plan 1. Chronic cough. Findings consistent with reflux with laryngeal inflammation.. Fiberoptic examination of her larynx reveals that the subglottis appears patent. This is consistent with previous CT of her chest completed in December 2021 approximately 11 months ago. She is scheduled for GI evaluation within the next 3 weeks. I have added Carafate to her management but patient understands this is subject to change or cancellation per GI 2. Rhinitis consistent with GPA. No granulation or localized bleeding sites. Recommend that she continue or resume use of saline spray to keep the lining of the nose moist. Suyapa Louise MD Cardiovascular Disease: No Peripheral Arterial Disease: (TIA non-embolic, CVA non-embolic, amputation, carotid artery stenosis, abnormal PVRs, claudication history, decreased pulses, etc.):No Stroke: YES Claudication: NO Carotid Artery Stenosis: NO DM: No Prior transplant: No CKD: Yes: Cause of CKD: [facility] Peritoneal dialysis, start date: 09/2021 Living Donors: Yes Residual UO: <1 Cup per day Hypercoagulable (history of DVT/PE, miscarriages, prior use of anticoagulation, etc.):Yes Malignancy (including skin cancer): No 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) History of transfusion Stroke (HCC) PAST SURGICAL HISTORY Procedure Laterality Date SECTION HX TONSILLECTOMY HX Current Outpatient Medications Medication Sig sucralfate (CARAFATE) 100 mg/mL suspension Take 10 mL by mouth four times daily. atorvastatin (LIPITOR) 40 mg tablet Take [address] (PROTONIX) 40 mg tablet Take 1 tablet by mouth every 12 hours. folic acid 1 mg tablet potassium chloride ER (KLOR-CON) 20 mEq tablet Take 20 mEq by mouth. lamoTRIgine ER (LAMICTAL XR) 100 mg 24 hr tablet Take 1 tablet by mouth twice daily. apixaban (ELIQUIS) 2.5 mg tab(s) Take by mouth twice daily. lanthanum (FOSRENOL) 1,000 mg chewable tablet metoprolol tartrate, short acting, (LOPRESSOR) 25 mg tablet Take 25 mg by mouth twice daily. DIALYVITE 100-1 mg tab Take 1 tablet by mouth once daily. Cholecalciferol, Vitamin D3, 50 mcg (2,000 unit) cap Take 3,000 Units by mouth once daily. gentamicin 0.1% 0.1 % cream Apply to affected area as needed. polyethylene glycol 3350 (MIRALAX, GLYCOLAX) 17 gram/dose powder Take by mouth once daily. Dissolve dose in 4 - 8 ounces of liquid and take as directed. Current Facility-Administered Medications Medication Dose Route Frequency sodium chloride 0.9 % (flush) 10 mL (BD POSIFLUSH) 10 mL INTRAVENOUS DIRECTED PRN FAMILY HISTORY Problem Relation Age of Onset Diabetes Mother Hypertension Mother Hyperlipidemia Father Hypertension Father Diabetes Maternal Grandmother Cancer Paternal Grandmother breast Cancer Paternal Grandfather mouth & throat Family Status Relation Name Status Mo Alive Fa Alive MGMo MGFa PGMo PGFa Social History Tobacco Use Smoking status: Never Passive exposure: Never Smokeless tobacco: Never Vaping Use Vaping Use: Never used Substance Use Topics Alcohol use: Not Currently Drug use: Not Currently Pre-transplant testing: EC06/25/21 NORMAL SINUS RHYTHM POSSIBLE ANTERIOR MYOCARDIAL INFARCTION , AGE UNDETERMINED ABNORMAL ECG ECHO 12/25/2021 CONCLUSIONS: - Exam indication: Pre-up kindey transplant - The left ventricle is normal in size. There is mild septal left ventricular hypertrophy. Left ventricular systolic function is mildly decreased. EF = 48 5% (2D biplane). Mild global hypokinesis. GLS mildly reduced (12.7%). - The right ventricle is normal in size. Right ventricular systolic function is normal. - Normal left and right atrial size. - There are no significant valvular abnormalities NM Stress test 12/25/2021 CONCLUSIONS: 1. SPECT Perfusion Study: Normal. 2. There is no scintigraphic evidence for inducible ischemia. 3. No evidence of scarred myocardium. 4. Left ventricle is normal in size. The left ventricle systolic function is normal. 5. Right ventricle is normal in size. The right ventricle systolic function is normal. 6. This is a low risk scan. Gated Stress FBP LVEF % 67 Ct chest 04/12/2021 Repeating Smooth symmetric bilateral interlobular septal thickening with edema Tree in bud opacities in right upper lobe Ill defining patchy ground glass opacities in right middle and upper lobes alveolar hemorrhage vs multi focal pneumonia Splenomegaly CT A/P 04/11/2021 FINDINGS: No visualized lower thoracic abnormalities The nonenhanced liver, spleen and stomach, gallbladder, pancreas and adrenal glands are unremarkable. 2.3 rum cyst within the posterior superior pole the left kidney (axial 35). No renal calcification, hydronephrosis or perinephric collection. No bowel obstruction, bowel wall thickening or peribowel inflammatory stranding. No mesenteric collection or free intraperitoneal air or fluid. No free pelvic air or fluid. The bladder is decompressed. No discrete pelvic calcification_ 18 mm transverse fat-containing umbilical hernia. Nonspecific soft tissue edema of the lower abdominal soft tissues with no loculated collection, mats or cyst. The osseous structures are unremarkable. Kidney biopsy 04/18/2021 26 glomeruli, 21 with crescents and extensive injury. 4 cellula, 17 fibrocellular with ruptured manjarrez 'capsules. 6 with segmental sclerosis and 3 fibrinoid necrosis. One with interlobular artery with fibrinoid necrosis. Neg IF and EM Mammogram: 10/06/2022 IMPRESSION: Left breast asymmetry is likely benign fibroglandular tissue. Six-month left mammogram recommended to ensure stability. Patient was notified of results at time of exam. BI-RADS: 3 - Probably benign Follow up: Left breast six-month mammogram follow-up. EGD: 12/22/2022 FINAL DIAGNOSIS A. Duodenum, biopsy: - Duodenal mucosa with no significant pathologic change. B. Stomach, biopsy: - Gastric antral and mixed antral/oxyntic-type mucosa with lamina propria histiocytes with intracellular crystalline material, morphologically consistent with lanthanum. - No intestinal metaplasia or Helicobacter pylori organisms. C. Esophagus, biopsy: - Focal mild active esophagitis PAP 11/05/2021 NEGATIVE FOR INTRAEPITHELIAL LESION OR MALIGNANCY HPV 11/05/2021 Negative Colonoscopy: Not applicable Sensitizations: Prior transplant: No Blood transfusions: Yes : Yes Rabbit: Yes: PET Immunizations: HBV series: Received, date 07/10/2021 , 06/12/2021 Pneumovax: Received, date 04/24/2021 Influenza vaccine: Received, date 01/08/2022 Covid vaccine: Received, date 07/02/20 & 06/09/2020 Kenny Orozco RN REVIEW OF SYSTEMS Constitutional: No chills and fever. HENT: No congestion, hearing loss and sinus pressure. Eyes: No pain and visual disturbance. Respiratory: No cough, chest tightness or shortness of breath. Cardiovascular: No chest pain and leg swelling. Gastrointestinal: No abdominal pain, constipation, nausea or vomiting. Genitourinary: No dysuria and frequency. Musculoskeletal: No joint swelling and myalgias. Neurological: No focal weakness or numbness Functional capacity: > 8.0 running 5mph or climbing steps briskly KARNOFSKY INDEX SCALE (Adult patients aged 18 and older) - Used to rate a patient's functional status before and after a medical procedure: 90 - Able to carry on normal activity: minor signs or symptoms of disease. PHYSICAL EXAMINATION: BP 118/75 (BP Site: Left Arm, BP Position: Sitting, BP Cuff Size: Large Adult) Pulse 104 Temp 36.3 C (97.4 F) (Temporal) Wt 78.2 kg (172 lb 8 oz) LMP 10/26/2022 (Exact Date) SpO2 100% BMI 33.69 kg/m HEENT: anicteric, conj noninflamed NECK: supple, no JVP Lungs: CTA Bilaterally, no wheezes CV: Normal S1, S2. no pathologic murmurs, rubs, gallops ABD: soft, NT, ND Ext: no edema Neuro - Alert and oriented Access - PD Labs/Studies: Impression: Pretransplant evaluation for End stage kidney disease 42 year old female here for evaluation of candidacy for transplantation. She was approved before but delayed due to insurance pending dental clearance. She had CVA which was presumed to be from embolic cause, holter monitor was neg for arrhythmia and she is scheduled to get implantable loop monitor for arrhythmia. 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 CVA and seizure in 2022. Chronic cough, nausea and vomiting x 2 per day since 09/2022 Echo - 48% Lung Nodules - cleared by pulm Superficial DVT on left side on Eliquis (She stated she takes Eliquis TPMT activity level in 04/2022 - 33.3 ( normal level). She can walk with out walker or cane. She does have potential living donor. She has follow up with Dentist and schedule for tooth extraction next month. Given chronic nausea and vomiting, she may have difficulty of taking meds after transplant but she stated she is ok with meds with Zofran. Based on today's evaluation, she is acceptable candidate for kidney transplant. We had the opportunity to discuss the following, specific for this patient: Risks and benefits of transplantation including overall average increase in life expectancy and higher quality of life with transplantation for most recipients; Types of donor organs discussed with patient, including Living donor (if appropriate), , expanded criteria, donor cardiac (DCD) and CDC-High risk donor types, with relative benefit of living donation over donor transplantation explained. Exploration of potential donors done with patient; Lengthy discussion regarding Immunosuppression following transplantation. I explained our usual protocols, drugs involved, administration and monitoring. This included the risks of infection, possibly life threatening, and malignancy. Patient expresses understanding of the information discussed. Given her current issues, we plan: 1. GI clearance 2. Repeat mammogram in 3. Dermatology clearance given she is on imuran 5. Echo Cancer Screening: Type of Cancer: Screening Criteria: Cervical Females age 21-29: PAP Q3yrs; HPV if PAP abnormal Females age 30-65: PAP & HPV Q5yrs; OR PAP only Q3yrs Breast Females age 20-39: Clinical Breast Exam Q3yrs Females age 40+: Mammogram & Clinical Breast Exam Q1yr Prostate Males age 40+: PSA will be checked at evaluation Colon All patients age 50+: colonoscopy Q10yrs or as recommended based on results Lung Patients meeting all of the following criteria will be scheduled for a Chest CT without Contrast at evaluation if they have not had a Chest CT within the past year: 1. Age 55-74 2. Have at least a 30 pack-year smoking history 3. Are still smoking OR have quit smoking within the last 15 yrs Patients that do not meet the criteria above or who had a Chest CT within the past year will have a CXR PA & Lat at evaluation. Skin All patients: Skin will be examined at evaluation Pharmacy Consult: Not needed at this time Opportunity to ask questions given. Patient expresses understanding of the information discussed. Communication with referring provider done by letter. Patient seen , discussed and examined with Transplant Nephrology Staff Dr. Lugo. José Miguel Arnold MD Transplant Nephrology Fellow P#[id number] 12/30/22 1:54 PM Department of Kidney Medicine STAFF PHYSICIAN NOTE OF PERSONAL INVOLVEMENT IN CARE I have reviewed the Progress Note obtained and documented by and I personally participated in the dozier components. I have discussed the case and management of the patient's care and I agree with the formulated assessment and plan. 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 She was also found to have sinusoidal involvement and lung nodules for GPA and received 4 doses of rituximab (last dose in December 2021) and has since been on azathioprine. Her clinical course was further complicated by cryptogenic strokes (left cerebellar infract, bifrontal infarcts and TIA), she was initially on DAPT then transitioned to Eliquis in September 2022. She is been seen by cardiovascular team and will be getting a loop recorder on 01/06/23. She also has a history of recurrent nausea and vomiting and has been seen by evaluated by Dr. Placido Palacios who recommended an endoscopy. Echo and stress test reviewed above and reported low risk. She has undergone a tubal ligation for control and up to date on cervical cancer screening. Prior to listing for transplantation, she would require: - GI consultation and clearance for recurrent nausea and vomiting which could be potentially exacerbated with transplantation. - Cardiovascular clearance for cryptogenic stroke and cardiovascular risk assessment. - Dermatology clearance with hx of immunosuppression including azathioprine. - Repeat mammogram Estela Lugo MD Staff Kidney Medicine [facility] Addendum: labs reviewed, corrected calcium on CMP is 11.1, she will need PTH checked and further work up of hypercalcemia. documented in this encounter [facility] 12-30-2022 Note [facility] 12-30-2022 Note [facility] 12-30-2022 History of Present illness Narrative [facility] [place] [facility] Transplant Evaluation CC: Consultation for Kidney transplant evaluation. Referred by: Delma Osorio MD [address] [facility] [address] I will communicate with the referring provider by letter and/or shared electronic medical record. HPI: 42 yo female here for ktxp ongoing evaluation. ESRD sec [place] bx proven. See below. Hemo dialysis started July 2021 transitioned to PD September 2021. Last seen October 2021 and presented at [facility] 01/23/2022. Pt was approved but listing delayed b/c dental clearance required by insurance. Since last seen pt has completed dental clearance however had a CVA (May 2022), taking Eliquis currently then seizure (July 2022). Now returning to see the team prior to listing. Hx of Anemia, HTN, DVT, blood transfusion, tonsillectomy, caesarian surgery, lung nodules, osteomalacia, obesity and PTH. Hemodialysis: July 2021 then PD since September 2021 UOP: >1 Cup per day LD: yes (family) Blood transfusion:Yes Blood thinner: Eliquis Last hospitalization: Spring 2022 for seizure. Taking LaMICtal XR Midodrine: Denies Hernia: Denies Abdominal surgery: DVT: Apr 2022. Per progress note thrombus in the great and small saphenous and varicose veins of the left lower extremity skin cancers: denies UTI: >2 years ago Kidney stones:Denies G 3 P 2 D & C x 1 Since last seen CVA (May 2022), taking Eliquis currently then seizure (July 2022). Currently following with GI for epigastric pain, nausea, vomiting, lightheadedness and and dry cough. COMMITTEE DECISION: 01/23/2022 The selection criteria have been MET and patient will be placed on the kidney transplant waiting list. Indication(s) for transplantation: End-stage renal disease on dialysis. Follow up in 12 months for re-evaluation with Historical Guide Surgeon. Needs Pulmonary clearance & HBV vaccine. Pulm clearance obtained 02/11/2022 Neurology September 2022 IMPRESSION Left frontal ischemic stroke : July 2022----likely related to 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 (CSF protein 25 normal ; CSF WBC 0; echocardiogram no thrombus; no PFO ; no marantic vegetations or pericarditis)--- on anticoagulation with eliquis 2.5 mg BID ( started 09/29/22) Undefined age for left cerebellar infarct Current residual deficits : mild facial asymmetry mild dysarthria ; mild bilateral tremors Spells of stiffening increased tone tongue biting loss of awareness--- lasting less than 1 minute and postictal for about 5 to 10 minutes : October 01, 2022-----has been initiated on Lamictal titration : Goal 100 mg twice daily Peritoneal dialysis -end-stage renal disease on transplant list 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--- diagnosed 2020 --follows F rheumatology Hyperlipidemia 08/01/2022 cholesterol 220 LDL 135 -currently on Lipitor Hypertension well-controlled PLAN Patient is currently on Eliquis 2.5 mg twice daily--- tolerating well; will monitor hemoglobin closely and also for menorrhagia / menstrual cycle frequency No clear involvement of intracranial vasculature at this time--- cerebral angiogram without any intracranial stenosis; CSF studies at the time of infarct in July 2022 was normal protein and no inflammatory cells CTA head and neck : Large R P-comm ; smaller diameter basilar artery--overall good collaterals and intact [place] Pending cardiac work-up including telemetry Non-smoker ; 1 miscarriage 2 healthy children Beta-2 glycoprotein cardiolipin antibodies are normal continue lamotrigine titration --- Target lamotrigine 100 mg twice daily Epilepsy consulted From stroke standpoint she is cleared for renal transplant evaluation. --- if any headache / recurrent Sz --- MRI brain MRV brain --- at this time no headache And no spells since starting lamotrigine FU in vasculitis clinic in 3 months Uninterrupted anticoagulation recommended . For dental care geriatric dentition care can provide care without holding Eliquis Also with immunosuppression --- please ask PCP / rheumatology regarding pre treatment with antibiotics prior to dental work Lauren Rodriguez MD Gastroenterology November 13, 2022 PRESENTING COMPLAINT This 42 year old female patient presents with ESRD from 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 on peritoneal dialysis. C/o N, V, dehydration - severe now, ER visit - responded to Zofran, Pepcid, and fluids. Sx are back, but not as severe. Daily PD. Cannot hold down meds. EGD recommended by ER doctor.... Mita Gerald presents for multiple concerns as stated in HPI, epigastric pain, nausea, vomiting, lightheadedness and and dry cough. Physical exam with tachycardia on arrival, this improved throughout ED course, remainder VSS. Orthostatic blood pressure obtained and normal. Lungs clear bilaterally without any wheezing, rhonchi or rales, heart sinus tach, abdomen is soft, nontender on my examination, no rebound or guarding, peritoneal dialysis catheter in situ without any erythema or drainage. No appreciable lower extremity edema. Was obtained from the lobby prior to my assessment: CBC with stable H&H, no leukocytosis. CMP with baseline elevated renal function, remainder of LFTs and electrolytes WNL. Magnesium 1.9. HST trend 195, 188, 186, low suspicion for ACS. CRP normal at 0.5. Sed rate 120 however patient has a history of chronic elevation. COVID, flu and RSV negative. X-ray negative for acute cardiopulmonary process. Patient given 500 cc IV fluid bolus, Pepcid and Zofran with significant improvement in her symptoms. Additional 500 cc fluid bolus given as well as p.o. challenge which patient tolerated without any difficulties or recurrence of her epigastric abdominal pain, nausea or vomiting. Discussed with patient the need to follow-up with GI as she likely needs an endoscopy to evaluate for gastritis versus PUD versus other ailment in her epigastric region, follow-up request placed however pending at time of disposition. Etiology of her lightheadedness appears to be likely related to volume as she has not not been eating and drinking sufficiently. Advised patient to continue drinking plenty of oral intake and follow-up closely with GI as well as her PCP. She was prescribed a short course of Zofran and Pepcid instructed on strict return to ED precautions. She is understanding and agreeable to discharge plan, all of her questions and concerns were addressed the best my ability. She was stable throughout prior to discharge. Philip Escalante MD ENT 12/03/2022 Assessment and plan 1. Chronic cough. Findings consistent with reflux with laryngeal inflammation.. Fiberoptic examination of her larynx reveals that the subglottis appears patent. This is consistent with previous CT of her chest completed in December 2021 approximately 11 months ago. She is scheduled for GI evaluation within the next 3 weeks. I have added Carafate to her management but patient understands this is subject to change or cancellation per GI 2. Rhinitis consistent with GPA. No granulation or localized bleeding sites. Recommend that she continue or resume use of saline spray to keep the lining of the nose moist. Suyapa Louise MD Cardiovascular Disease: No Peripheral Arterial Disease: (TIA non-embolic, CVA non-embolic, amputation, carotid artery stenosis, abnormal PVRs, claudication history, decreased pulses, etc.):No Stroke: YES Claudication: NO Carotid Artery Stenosis: NO DM: No Prior transplant: No CKD: Yes: Cause of CKD: [place] Peritoneal dialysis, start date: 09/2021 Living Donors: Yes Residual UO: <1 Cup per day Hypercoagulable (history of DVT/PE, miscarriages, prior use of anticoagulation, etc.):Yes Malignancy (including skin cancer): No 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) History of transfusion Stroke (HCC) PAST SURGICAL HISTORY Procedure Laterality Date SECTION HX TONSILLECTOMY HX Current Outpatient Medications Medication Sig sucralfate (CARAFATE) 100 mg/mL suspension Take 10 mL by mouth four times daily. atorvastatin (LIPITOR) 40 mg tablet Take [address] (PROTONIX) 40 mg tablet Take 1 tablet by mouth every 12 hours. folic acid 1 mg tablet potassium chloride ER (KLOR-CON) 20 mEq tablet Take 20 mEq by mouth. lamoTRIgine ER (LAMICTAL XR) 100 mg 24 hr tablet Take 1 tablet by mouth twice daily. apixaban (ELIQUIS) 2.5 mg tab(s) Take by mouth twice daily. lanthanum (FOSRENOL) 1,000 mg chewable tablet metoprolol tartrate, short acting, (LOPRESSOR) 25 mg tablet Take 25 mg by mouth twice daily. DIALYVITE 100-1 mg tab Take 1 tablet by mouth once daily. Cholecalciferol, Vitamin D3, 50 mcg (2,000 unit) cap Take 3,000 Units by mouth once daily. gentamicin 0.1% 0.1 % cream Apply to affected area as needed. polyethylene glycol 3350 (MIRALAX, GLYCOLAX) 17 gram/dose powder Take by mouth once daily. Dissolve dose in 4 - 8 ounces of liquid and take as directed. Current Facility-Administered Medications Medication Dose Route Frequency sodium chloride 0.9 % (flush) 10 mL (BD POSIFLUSH) 10 mL INTRAVENOUS DIRECTED PRN FAMILY HISTORY Problem Relation Age of Onset Diabetes Mother Hypertension Mother Hyperlipidemia Father Hypertension Father Diabetes Maternal Grandmother Cancer Paternal Grandmother breast Cancer Paternal Grandfather mouth & throat Family Status Relation Name Status Mo Alive Fa Alive MGMo MGFa PGMo PGFa Social History Tobacco Use Smoking status: Never Passive exposure: Never Smokeless tobacco: Never Vaping Use Vaping Use: Never used Substance Use Topics Alcohol use: Not Currently Drug use: Not Currently Pre-transplant testing: EC06/25/21 NORMAL SINUS RHYTHM POSSIBLE ANTERIOR MYOCARDIAL INFARCTION , AGE UNDETERMINED ABNORMAL ECG ECHO 12/25/2021 CONCLUSIONS: - Exam indication: Pre-up kindey transplant - The left ventricle is normal in size. There is mild septal left ventricular hypertrophy. Left ventricular systolic function is mildly decreased. EF = 48 5% (2D biplane). Mild global hypokinesis. GLS mildly reduced (12.7%). - The right ventricle is normal in size. Right ventricular systolic function is normal. - Normal left and right atrial size. - There are no significant valvular abnormalities NM Stress test 12/25/2021 CONCLUSIONS: 1. SPECT Perfusion Study: Normal. 2. There is no scintigraphic evidence for inducible ischemia. 3. No evidence of scarred myocardium. 4. Left ventricle is normal in size. The left ventricle systolic function is normal. 5. Right ventricle is normal in size. The right ventricle systolic function is normal. 6. This is a low risk scan. Gated Stress FBP LVEF % 67 Ct chest 04/12/2021 Repeating Smooth symmetric bilateral interlobular septal thickening with edema Tree in bud opacities in right upper lobe Ill defining patchy ground glass opacities in right middle and upper lobes alveolar hemorrhage vs multi focal pneumonia Splenomegaly CT A/P 04/11/2021 FINDINGS: No visualized lower thoracic abnormalities The nonenhanced liver, spleen and stomach, gallbladder, pancreas and adrenal glands are unremarkable. 2.3 rum cyst within the posterior superior pole the left kidney (axial 35). No renal calcification, hydronephrosis or perinephric collection. No bowel obstruction, bowel wall thickening or peribowel inflammatory stranding. No mesenteric collection or free intraperitoneal air or fluid. No free pelvic air or fluid. The bladder is decompressed. No discrete pelvic calcification_ 18 mm transverse fat-containing umbilical hernia. Nonspecific soft tissue edema of the lower abdominal soft tissues with no loculated collection, mats or cyst. The osseous structures are unremarkable. Kidney biopsy 04/18/2021 26 glomeruli, 21 with crescents and extensive injury. 4 cellula, 17 fibrocellular with ruptured manjarrez 'capsules. 6 with segmental sclerosis and 3 fibrinoid necrosis. One with interlobular artery with fibrinoid necrosis. Neg IF and EM Mammogram: 10/06/2022 IMPRESSION: Left breast asymmetry is likely benign fibroglandular tissue. Six-month left mammogram recommended to ensure stability. Patient was notified of results at time of exam. BI-RADS: 3 - Probably benign Follow up: Left breast six-month mammogram follow-up. EGD: 12/22/2022 FINAL DIAGNOSIS A. Duodenum, biopsy: - Duodenal mucosa with no significant pathologic change. B. Stomach, biopsy: - Gastric antral and mixed antral/oxyntic-type mucosa with lamina propria histiocytes with intracellular crystalline material, morphologically consistent with lanthanum. - No intestinal metaplasia or Helicobacter pylori organisms. C. Esophagus, biopsy: - Focal mild active esophagitis PAP 11/05/2021 NEGATIVE FOR INTRAEPITHELIAL LESION OR MALIGNANCY HPV 11/05/2021 Negative Colonoscopy: Not applicable Sensitizations: Prior transplant: No Blood transfusions: Yes : Yes Rabbit: Yes: PET Immunizations: HBV series: Received, date 07/10/2021 , 06/12/2021 Pneumovax: Received, date 04/24/2021 Influenza vaccine: Received, date 01/08/2022 Covid vaccine: Received, date 07/02/20 & 06/09/2020 Kenny Orozco ANCHOR TACK PULLER OF SYSTEMS: GENERAL: Unintentional weight loss HEENT: Negative for frequent or significant headaches, No changes in hearing or vision, no nose bleeds or other nasal problems NECK: Negative for lumps, goiter, pain and significant neck swelling RESPIRATORY: Cough; dry CARDIOVASCULAR: Negative for chest pain, leg swelling, hypertension, CHF or palpitations GI: Positive for N/V : On dialysis MUSCULOSKELETAL: Negative for joint pain or swelling, back pain or muscle pain SKIN: Negative for lesions, rash, and itching PSYCH: Negative for sleep disturbance, mood disorder and recent psychosocial stressors HEMATOLOGY/LYMPHOLOGY: Negative for prolonged bleeding, bruising easily or swollen nodes ENDOCRINE: Negative for cold or heat intolerance, polyuria, polydipsia and goiter NEURO: Seizures All other systems were reviewed and negative. PHYSICAL EXAM: BP 118/75 Pulse 104 Temp 36.3 C (97.4 F) Ht 152.4 cm (5') Wt 78.2 kg (172 lb 6.4 oz) LMP 10/26/2022 (Exact Date) SpO2 100% BMI 33.67 kg/m General appearance: Well appearing, alert, in no acute distress, well-hydrated, well nourished. Skin: Skin color, texture, turgor normal, no suspicious rashes or lesions Head: Normocephalic, no masses, lesions, tenderness or abnormalities Eyes: Anicteric sclera. Extraocular movements are intact. Ears: External ears normal Back: Normal exam Cardiac: RRR, no murmurs rubs or gallops Lungs:Respirations unlabored Abdomen: Normal abdominal exam, Abdomen soft, non-tender. Bowel sounds normal. No masses, organomegaly Extremities: No deformities, edema, skin discoloration, clubbing or cyanosis. Good capillary refill. Musculoskeletal: No joint swelling, deformity, or tenderness Peripheral pulses: Normal Neuro: Gait normal. Sensation grossly intact. Dialysis Access: RLQ PD ASSESSMENT: 42 yo female here for ktxp ongoing evaluation. 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 Switched from Rituximab to aza by rheum. Other hx includes recent stroke and seizure, HTN and DVT. Pt was approved for kidney transplant last year but listing delayed d/t dental clearance required by insurance which has since been completed. Pt also endorses N/V x 4 months, unable to keep food down with unintentional weight loss. Pt saw GI and a EGD was performed last week. + h/o DVT and CVA. No hx of PE or NM No h/o malignancy + anticoagulation, on Eliquis for stroke -The kidney transplant operations were discussed with the patient at length, and all questions were answered to the patient's satisfaction. Risks, benefits, and alternatives discussed. Risks discussed include but are not limited to: bleeding, infection, , NM, DVT, PE, CVA, risk of damage to surrounding structures, risk of lymphocele, urine leak, stricture, lower extremity complications, risk of bowel complications, bowel obstruction, and anastomotic leak. Also discussed the need for immunosuppressant medications for the lifetime of the allograft and the associated risks of infection and malignancy over time. PLAN: -Needs GI clearance -CT chest for chronic cough - CT to be reviewed by Dr Gonzalez on 10/2021 no calcification on both EIAs - Patient is a marginal surgical candidate for renal transplantation pending acceptable findings on the remainder of pre transplant evaluation Ni Causey APRN.LIGHTING SPECIALIST documented in this encounter [facility] 12-30-2022 Note [facility] 12-30-2022 History of Present illness Narrative PSYCHOSOCIAL ON-GOING EVALUATION FOR KIDNEY TRANSPLANT SIPAT: 12 Mita Duarte was evaluated by this child welfare social worker on 11/03/2021. Mita Duarte was found to be a suitable psychosocial candidate for kidney transplant. The pt was dialysis dependent at the last assessment. DIALYSIS START DATE: Mar 2021 The name of the dialysis unit is [facility]. The phone is [phone] (center) or [phone] (PD nurse - Cathy). This social work psychosocial waitlist evaluation was completed with Mita Duarte on December 30, 2022. She was accompanied by her , Spenser. The pt does not normally use assistive devices for ambulation - today presented in a wheelchair. Race/Gender: White, Female [place] Citizen: Yes IDENTIFYING INFORMATION/LIVING SITUATION Mita Duarte [id number] [address] [facility] [id number]. The home is a multi leveled. There are not architectural barriers - bedroom is on first floor. [place] [address] [facility]. Mita Duarte has been living in this home for 6 years. Mita Duarte is independent with all ADL's. Others in household are patients and two children (ages 18 and 12). There is 1 licensed drivers in the home and 1 working vehicles. 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 Caregiver responsibilities: Yes the patients in-laws or patients parents will care for the children during the patients recovery. Pets in the home: 2 dog. Pet precautions reviewed. TRANSPLANT LODGING PLANS FOR PATIENTS WHO LIVE 2.5 OR MORE HOURS AWAY FROM [facility]: Do you have the financial means to stay in the area for four weeks or more post-transplant? NA COMPLIANCE Missed doctor appointments: No issues reported. Missed/shortened/rescheduled dialysis appointments: No issues reported. Knowledge of medications: The patient has a good knowledge of her medications and there purpose. Medication Compliance: No issues reported. She uses a pill organizer that she organizes every week. Have you ever stopped taking any medication because you lost your insurance you could not afford it? No Have you stopped taking medication because you felt you didn't need it or because of side-effects? No 01/08/2023 Transplant child welfare social worker called patients dialysis center and spoke with PD nurse, Deb. The nurse confirmed the patient is compliant with doing her PD treatments and coming for follow up appointments. Labs reported: phosphorous 4.8 potassium 2.7 (put on potassium supplement recently) albumin 3.0 (prior month 3.8, 4.5) Have you ever been transplanted, evaluated, or listed at another center: No Potential donor: Potential - [id number] SUBSTANCE USE/ABUSE Alcohol: The patient reports she does not drink anymore due to health issues. Prior to this she may have had a drink once a year. This has always been her pattern. Tobacco: No Exposure to second hand smoke: No Cocaine, THC, Heroin, or Other Recreational Drug Use: No Over the Counter Medications: No Opioids/Controlled Substances: No CAGE Questionnaire Have you ever felt you should cut down on your drinking? No Have people annoyed you by criticizing your drinking? No Have you ever felt bad or guilty about your drinking? No Have you ever had a drink first thing in the morning to steady your nerves or to get rid of a hangover (eye barn hand)? No LEGAL ENCOUNTERS Currently on probation or parole: No Past or current warrants for arrest: No Substance related legal problems: No Valid drivers license:No - never obtained History of any legal issues not previously mentioned above: No MENTAL HEALTH HISTORY Affect: Appropriate/Consistent Alert: Alert Orientation: person, place and time Appearance: Unremarkable/appropriate Cognitive Function: Cognition appears relatively intact Mood: Euthymic Are you having thoughts that you would be better off , or of hurting yourself in some way? No Current mental health diagnoses / current feelings of anxiety or depression: Denies any current symptoms of anxiety or depression. Previous mental health diagnoses: No Psychiatric medication: No. Who prescribes: NA Counseling: No Psychiatric services: No History of suicide attempt(s) or ideation: No History of harming self: No History of harming others: No History of psychiatric hospitalization: No Is a referral to Transplant Psychiatry indicated for further evaluation or screening: No COPING Hobbies/Interests: The patient enjoys gardening. Coping strategies: She does some deep breathing, process the problem and comes up with some problem solving. Restorationist affiliation: No Stressors in life: No Ever cope by using a substance: No SOCIAL NARRATIVE See initial evaluation. EMPLOYMENT Current Employment Status: Disability. The patient started receiving disability in Oct 2021. 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 Paid Status for Recovery: Disability HEALTH INSURANCE/FINANCIAL Medical Insurance: [place] Medicaid Payer of Insurance: Patient Prescription Coverage: Medicaid Insurance Policy [place]: No Medicare Status: No. ESRD Medicare reviewed. Disability: $1400 per month Household Income: $40,000 per year (patient and ) Savings: No Pt was given a list of the medications for Kidney [place] recipients to learn how her insurance coverage applies. SW informed pt that she must be prepared to cover the copays of her immunosuppression and anti viral medications. Pt was also given information on fund raising as well. CAREGIVER/SUPPORT PLAN Primary Caregiver: Spenser, patient . He is 44 years old and works for [employer]. took 7 months off of work due to caring for the patient (seizures and stroke) - going back to work tomorrow Contact Number: [phone] Health Status and Availability of Caregiver: good health, available as needed - can take time off of work after patient receiving transplant Valid [employer] Manager's License/Working Vehicle: Yes, yes Caregiver Substance Use: No Caregiver Mental Health: No Secondary Caregiver: Manuel rosalee dad. He is 72 years old and retired. Contact Number: [phone] Health Status and Availability: good health, per patient available as needed Valid [employer] Manager's License/Working Vehicle: Yes, yes (would drive to ) Caregiver Substance Use: No Caregiver Mental Health: No The patient states post transplant she would stay in the area for a few days if needed ([place] 1 [place]2 hours away from ) 01/11/2023 Transplant child welfare social worker called patients dad and left a voicemail. PSYCHOSOCIAL RISKS Adherence to Treatment Protocols: Yes Ability to Understand Transplant Center's System of Care: Yes Active Psychiatric Diagnosis: No Financial Resources or Support: Yes Body Image/Scar: No IMPRESSIONS/RECOMMENDATIONS At this time, Mita Duarte continues to be a suitable psychosocial candidate for a kidney transplant. There are no psychosocial concerns that could have a negative impact on the successful and sustained outcome of a kidney transplant. The patient will have caregiver support from her and her dad post transplant. The patient lives 1 [place]/2 hours from and states she will stay in the area post transplant if needed. She has Medicaid [place] for health insurance. She is on disability. The patient shows good compliance through dialysis. There were no mental health or substance use barriers identified. The patient and her presented as focused on the evaluation. The patient should be scheduled for yearly visits and/or phone contact with social work for the following purposes: to review health insurance, changes of caregiver support, changes in financial/employment status, and past or current issues with alcohol or drug use. We reviewed the follow up care sequence, including lab work twice a week and twice a week post transplant clinic appointments. We discussed the precautions to take because of being immunosuppressed. We also discussed the need to have a caregiver multimedia services manager for 2 weeks post transplant. Mita Duarte was advised that it is imperative to adhere to the medical regimen and recovery restrictions. Mita Duarte indicated understanding of this information. Mita Duarte had the opportunity to discuss any issues and questions. Patient was given information and brochures about the kidney transplant process and fund raising options. The patient was given the phone number of the transplant child welfare social worker to address future concerns. Rosaura Andres, EVGENY, DIAL PAINTER, CCTSW Transplant Healthcare Facility Administrator documented in this encounter [facility] 12-26-2022 Note HNO ID: [id number] Author: Note, Interface Service: ? Author Type: ? Type: Progress Notes Filed: 12/26/2022 2:29 AM Note Text: Epic Scheduled Downtime: 12/26/2022 1:00:00 AM to 12/26/2022 1:28:00 AM [facility] 12-25-2022 Miscellaneous Notes [facility] was able to get her in today Wednesday12/25/22 for transfusion. Mireille Subramanian RN If absolutely necessary, per Jayla, pt could wait until Wednesday for transfusion. Es Sabillon RN [facility] did not return call. Pt will go to get T/C tonight before returning to [place]. We faxed orders to [facility]. She is aware, [facility] will still need to approve her coming there tomorrow for transfusion. She is aware and agreeable. We will notify her if we hear from them or she will call if unable to receive transfusion tomorrow, for alternative POC. Jayla updated. Es Sabillon RN Pt on her way to [facility] for T/C for PRBC's transfusion. She states nurse called to inform her not to come, they can't do it there in the next 2 days. Pt encouraged to pull off and await my call back to find out what is going on. We potentially could have her go to [facility] instead. Discussed with HARPAL Carver. She spoke to Guerda at [facility] and was asked to fax the order and they would contact pt to get her set up. Molly called back to see what had changed and why pt could not now be transfused. She was transferred to [facility]. Pamela was very short and stated she had been on hold for over 15 minutes to tell a nurse they were unable to complete the transfusion, because we never called, just faxed the order. Molly discussed the process and was then told Guerda is new, so that's the problem. Pamela again reports they can not accommodate pt. Molly called and left a VM on [facility] to please call and let us know if they can take the pt for transfusion tomorrow. I called and updated pt and she will continue to await plan, in case she needs to go to [facility] for T/C today. documented in this encounter [facility] 12-24-2022 Miscellaneous Notes Per Hilda Lopez- Nurse Pamela they can not accommodate patient this week. Initially spoke with Guerda. Call placed to [facility] Infusion [facility] - left message for patient need for transfusion and faxed orders. Molly Luna Spoke w/ Hilda Lopez -- they will be contacting patient to schedule after speaking with nursing staff. Faxed orders December 24, 2022 3:41 PM Molly Luna documented in this encounter [facility] 12-24-2022 Instructions Natali Child MD - 12/24/2022 3:26 PM EDT Transfuse [address] [facility] in 2 -3 weeks repeat labs documented in this encounter [facility] 12-24-2022 Note [facility] 12-24-2022 History of Present illness Narrative Images from the original note were not included. 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 She has had chronic leukocytosis which is primarily neutrophilic and most compatible with chronic inflammatory process. This is unlikely to be a primary hematologic abnormality or malignancy. I obtained MPN workup which is negative so far. I would be happy to investigate further with bone marrow bx. if clarification is required prior to transplant, but in the meanwhile, we will follow her conservatively. PLAN: Transfuse [facility] in 2 -3 weeks repeat labs HPI: CASE HISTORY: Reverse Chronological Order 01/03/2022 Maintenance dose Rituxan 01/02/2022 - CT chest - 1. No suspicious pulmonary nodule or thoracic lymphadenopathy. No ground-glass or consolidative airspace opacities. 2. Interval cholecystectomy since the prior abdominal CT from 04/11/2021. Pneumobilia is new and is likely postsurgical. 3. The kidneys are small/atrophied compared to the prior abdominal CT from 04/11/2021, likely due to the patient's history of GPA/end-stage renal disease. 4. A few tiny foci of free intraperitoneal gas are probably due to peritoneal dialysis, new compared to the prior exam. 09/2021 - Transaminitis - acute pancreatitis - underwent cholecystectomy 08/2021 - Started on peritoneal dialysis. 05/16/2021- 06/06/2021) Rituxan weekly x 4 induction 04/18/2021 Kidney biopsy: 26 glomeruli, 21 with crescents and extensive injury. 4 cellula, 17 fibrocellular with ruptured manjarrez 'capsules. 6 with segmental sclerosis and 3 fibrinoid necrosis. One with interlobular artery with fibrinoid necrosis. Neg IF and EM . 04/2021 - Anuric, vomiting - cANCA 1:640. pr3 1319. CRP 22.96 N< 1. SD rate >100. Hep neg. TB NEG. GBM abs neg 04/12/2021 - CT chest: Smooth symmetric bilateral interlobular septal thickening with edema. Tree in bud opacities in right upper lobe Ill defining patchy ground glass opacities in right middle and upper lobes alveolar hemorrhage vs multi focal pneumonia Splenomegaly 11/2020 developed sinus infection Nasal bloody discharge. Nasal crusting - doesn't do any rinses - 3 courses of abx - unresolved.(Z pack and augmentin) Updated Visit, December 24, 2022: Spenser is with her. 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 EGD done because can't keep down any food or drink. Lost 20 lbs since October. Working on transplant kidney. Very anemic today. - recommend transfusion Updated Visit, May 11, 2022: Abdominal pain is improving.leucocytosis is stable and is primarily composed of neutrophils. MPN workup to date is negative (BCR-ABL, JAK2 exon 12-16 sequencing), JAK2 V16F mutation is pending. She remains afebrile. 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 Has been referred for increased leukocytosis over the past few months. Is on peritoneal dialysis early August 2021 Is on epo replacement Rituxan finished 01/09/2022May - June had acute panreatitis and cholecystectomy She is scheduled to start Azathioprine in May 2022. REVIEW OF SYSTEMS Per HPI and otherwise negative by full review of organ systems. ECOG PERFORMANCE STATUS: 1 PHYSICAL EXAMINATION: Vitals: BP 140/85 Pulse 109 Temp (Src) 97.6 (Temporal) Resp 16 Ht 5' 0 (1.52m) Wt 170 lb 9.6 oz (77.4kg) SpO2 97% LMP 10/26/2022 BMI 33.32 kg/(m^2). Body surface area is 1.81 meters squared. Exam limited to gross visualization where appropriate. Gen.: This is an age-appropriate patient in no acute distress. Head: Appears atraumatic with no visible lesions. Eyes: Pupils equally round and reactive to light, extraocular muscles are intact. Neck: Supple. Mouth: Masked. Respiratory: Appears to be respiring comfortably. Neurologic: Nonfocal to gross visualization. Alert and oriented 3. Psychiatric: No evidence of inappropriate anxiety or depression. Skin: Visible areas of skin without rash, lesions, wounds or petechiae. ALLERGIES: ALLERGIES Allergen Reactions Vancomycin Itching hives MEDICATIONS: apixaban (ELIQUIS) 2.5 mg tab(s)^Take by mouth twice daily.^Disp: ^Rfl: atorvastatin (LIPITOR) 40 mg tablet^Take 40 mg by mouth.^Disp: ^Rfl: azaTHIOprine (IMURAN) 50 mg tablet^Take 2 tablets by mouth once daily.^Disp: 180 tablet^Rfl: 0 calcitriol (ROCALTROL) 0.5 mcg capsule^Take 0.5 mcg by mouth two times a week.^Disp: ^Rfl: cephALEXin (KEFLEX) 500 mg capsule^Take 500 mg by mouth as needed.^Disp: ^Rfl: Cholecalciferol, Vitamin D3, 50 mcg (2,000 unit) cap^Take 3,000 Units by mouth once daily.^Disp: ^Rfl: DIALYVITE 100-1 mg tab^Take 1 tablet by mouth once daily.^Disp: ^Rfl: folic acid 1 mg tablet^^Disp: ^Rfl: gentamicin 0.1% 0.1 % cream^Apply to affected area as needed.^Disp: ^Rfl: lamoTRIgine ER (LAMICTAL XR) 100 mg 24 hr tablet^Take 1 tablet by mouth twice daily.^Disp: 180 tablet^Rfl: 1 lanthanum (FOSRENOL) 1,000 mg chewable tablet^^Disp: ^Rfl: metoprolol tartrate, short acting, (LOPRESSOR) 25 mg tablet^Take 25 mg by mouth twice daily.^Disp: ^Rfl: pantoprazole DR (PROTONIX) 40 mg tablet^Take 1 tablet by mouth every 12 hours.^Disp: ^Rfl: polyethylene glycol 3350 (MIRALAX, GLYCOLAX) 17 gram/dose powder^Take by mouth once daily. Dissolve dose in 4 - 8 ounces of liquid and take as directed.^Disp: ^Rfl: potassium chloride ER (KLOR-CON) 20 mEq tablet^Take 20 mEq by mouth.^Disp: ^Rfl: POTASSIUM ORAL^Take 200 mg by mouth once daily.^Disp: ^Rfl: sevelamer carbonate (RENVELA) 800 mg tablet^Sevelamer Carbonate Active 1600 MG PO 3 times per day with meals August 19, 2021 1:41pm^Disp: ^Rfl: sucralfate (CARAFATE) 100 mg/mL suspension^Take 10 mL by mouth four times daily.^Disp: 414 mL^Rfl: 5 LABORATORY VALUES: WBC (k/uL) Date Value 12/24/2022 5.38 RBC (m/uL) Date Value 12/24/2022 1.99 (L) Hemoglobin (g/dL) Date Value 12/24/2022 6.8 (L) Hematocrit (%) Date Value 12/24/2022 20.3 (L) MCV (fL) Date Value 12/24/2022 102.0 (H) MCH (pg) Date Value 12/24/2022 34.2 (H) MCHC (g/dL) Date Value 12/24/2022 33.5 RDW-CV (%) Date Value 12/24/2022 14.5 Platelet Count (k/uL) Date Value 12/24/2022 146 (L) MPV (fL) Date Value 12/24/2022 10.0 Glucose (mg/dL) Date Value 12/24/2022 122 (H) BUN (mg/dL) Date Value 12/24/2022 46 (H) Creatinine (mg/dL) Date Value 12/24/2022 18.46 (H) Sodium (mmol/L) Date Value 12/24/2022 140 Potassium (mmol/L) Date Value 12/24/2022 2.7 (L) Chloride (mmol/L) Date Value 12/24/2022 98 CO2 (mmol/L) Date Value 12/24/2022 28 Protein, Total (g/dL) Date Value 12/24/2022 5.2 (L) Albumin (g/dL) Date Value 12/24/2022 3.3 (L) Calcium, Total (mg/dL) Date Value 12/24/2022 10.1 Alkaline Phosphatase (U/L) Date Value 12/24/2022 72 Bilirubin, Total (mg/dL) Date Value 12/24/2022 0.3 AST (U/L) Date Value 12/24/2022 21 ALT (U/L) Date Value 12/24/2022 21 Cholesterol, Total (mg/dL) Date Value 12/03/2022 94 Triglyceride (mg/dL) Date Value 12/03/2022 106 DIAGNOSIS: (M31.31) 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 with renal involvement (HCC) (primary encounter diagnosis) Plan: CBC + DIFF, COMP METABOLIC PANEL, IRON + TIBC, FERRITIN BLD, VITAMIN B12 BLOOD, FOLATE SERUM (D64.9) Anemia, unspecified type Plan: CBC + DIFF, COMP METABOLIC PANEL, IRON + TIBC, FERRITIN BLD, VITAMIN B12 BLOOD, FOLATE SERUM 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) History of transfusion Stroke (HCC) PAST SURGICAL HISTORY Procedure Laterality Date SECTION HX TONSILLECTOMY HX Social History Tobacco Use Smoking status: Never Passive exposure: Never Smokeless tobacco: Never Vaping Use Vaping Use: Never used Substance Use Topics Alcohol use: Not Currently Drug use: Not Currently FAMILY HISTORY Problem Relation Age of Onset Diabetes Mother Hypertension Mother Hyperlipidemia Father Hypertension Father Diabetes Maternal Grandmother Cancer Paternal Grandmother breast Cancer Paternal Grandfather mouth & throat I spent a total of 30 minutes on the date of the service which included preparing to see the patient, [id number] patient care, completing clinical documentation, obtaining and/or reviewing separately obtained history, performing a medically appropriate examination, counseling and educating the patient/family/caregiver, ordering medications, tests, or procedures, independently interpreting results (not separately reported), communicating results to the patient/family/caregiver, and care coordination (not separately reported). Natali Child MD, CPE Hematology and Oncology Services Provided at: [facility] [place], [place] CC: Te Avendaño [id number] [facility] [id number] Jeffrey Del Cid MD [id number] [facility] [id number] documented in this encounter [facility] 12-24-2022 Miscellaneous Notes Consult documented in this encounter [facility] 12-22-2022 Nurse Note AMBULATORY PATIENT EDUCATION NOTE TOPIC: GI PROCEDURES: Esophagogastroduodenoscopy(EGD) with or without biopies based on clinical findings, removal of polyps or lesions READINESS TO LEARN INSTRUCTION PROVIDED TO: Patient and family member COGNITIVE ABILITY: Alert and oriented PTED MOTIVATION TO LEARN: Interested FAMILY SUPPORT: High - Very involved in pt care IPATIENT LEARNS BEST BY: Individual Instruction Written Instruction - Hand-outs Verbal Instruction FACTORS AFFECTING LEARNING: None PHYSICAL LIMITATIONS AFFECTING LEARNING: None LEARNING RESPONSE METHOD OF INSTRUCTION: Individual instruction PATIENT / FAMILY RESPONSE: Verbalizes understanding of: WORSENING CONDITION-Signs and symptoms of a worsening condition that warrant a call to the physician FOLLOW-UP PLAN: Recommend - Recommend continued instruction and follow up as directed SUPPLEMENTAL MATERIAL: Procedure Discharge Instructions REFERRAL (RECOMMENDATION): None Electronically Signed By: John Paul [place] LPN PRE OP LEARNING ASSESSMENT PROCEDURE/SURGERY: GI PROCEDURES: EGD READINESS TO LEARN COGNITIVE ABILITY: Alert and oriented MOTIVATION TO LEARN: Interested FAMILY SUPPORT: None - Unavailable/disinterested PATIENT LEARNS BEST BY: Individual Instruction FACTORS AFFECTING LEARNING: None PHYSICAL LIMITATIONS AFFECTING LEARNING: None Electronically Signed By: Nancy Mccracken RN In Department: GASTROENTEROLOGY documented in this encounter [facility] 12-21-2022 Miscellaneous Notes Spoke with patient reminding of appointment on 12/28/2022. Stated that it is important to arrive on time as if late they may be asked to reschedule the entire day. All questions answered and callback number was given.. Jia Richardson MA documented in this encounter [facility] 12-18-2022 Miscellaneous Notes The date of 01/04/[address] Diaz offered & accepted by patient. Cathy Neil RN Please call patient to schedule for OPS with the first available EP physician so that we may schedule for ILR if deemed to be the appropriate procedure for the patient. ----- Message from Mcih Bonilla MD sent at 11/26/2022 11:27 AM EDT ----- Regarding: Implantable Loop Recorder Hi EP lab, We just saw this patient, Mita Duarte, , in stroke clinic. She has a diagnosis of cryptogenic embolic appearing stroke. We would like to have an implantable loop recorder placed for her to evaluate for occult atrial fibrillation. I've ordered a consult to electrophysiology. Would you be able to help us get this scheduled? Thanks, Mich Bonilla MD Vascular Neurology Fellow, PGY-5 documented in this encounter [facility] 12-03-2022 Note [facility] 12-03-2022 History of Present illness Narrative 42 year old female presents with the following concerns and complaints: Cough HPI: Last office visit August 06, 2022 Patient describes exacerbation of low-grade cough with a constant through the day dry hacking cough over the last 6 weeks. The cough is preceded by abdominal discomfort and vomiting which has continued to a lesser extent having been placed on Protonix twice daily. She still is unable to keep much in the way of solid food down and has been maintaining caloric intake to some extent with a Pedialyte substitute. She has developed: Heartburn, effortful swallowing; frequent irritation with bitter sour taste; burning in the substernal region from the sternal notch to the epigastrium; nighttime coughing and choking; exacerbation of hoarseness. Reviewed radiology of her chest from January 02, 2022 looking at the subglottic trachea and this was clear. Additionally pulmonary function test from February 13, 2022: Normal 3 weeks ago she had nosebleed which required attention at a ED. She is on anticoagulants. She has some chronic postnasal discharge but denies colored purulent nasal discharge; face pain or nose blockage. I reviewed her sinuses off of a CT brain scan completed September 25, 2022 and there is no significant sinus disease. ACTIVE PROBLEM LIST Granulomatosis With Polyangiitis With Renal Involvement (Hcc) Acute Hepatitis Esrd (End Stage Renal Disease) (Hcc) Obesity, Class I, Bmi 30-34.9 Choledocholithiasis Post-Ercp Acute Pancreatitis Pre-Transplant Evaluation for Kidney Transplant Localization-Related (Focal) (Partial) Symptomatic Epilepsy and Epileptic Syndromes With Complex Partial Seizures, Not Intractable, Without Status Epilepticus (Hcc) Current Outpatient Medications on File Prior to Visit Medication Sig atorvastatin (LIPITOR) 40 mg tablet Take 40 mg by mouth. pantoprazole [address] (PROTONIX) 40 mg tablet Take 1 tablet by mouth every 12 hours. folic acid 1 mg tablet potassium chloride ER (KLOR-CON) 20 mEq tablet Take 20 mEq by mouth. lamoTRIgine ER (LAMICTAL XR) 100 mg 24 hr tablet Take 1 tablet by mouth twice daily. apixaban (ELIQUIS) 2.5 mg tab(s) Take by mouth twice daily. lanthanum (FOSRENOL) 1,000 mg chewable tablet POTASSIUM ORAL Take 200 mg by mouth once daily. metoprolol tartrate, short acting, (LOPRESSOR) 25 mg tablet Take 25 mg by mouth twice daily. DIALYVITE 100-1 mg tab Take 1 tablet by mouth once daily. Cholecalciferol, Vitamin D3, 50 mcg (2,000 unit) cap Take 3,000 Units by mouth once daily. gentamicin 0.1% 0.1 % cream Apply to affected area as needed. polyethylene glycol 3350 (MIRALAX, GLYCOLAX) 17 gram/dose powder Take by mouth once daily. Dissolve dose in 4 - 8 ounces of liquid and take as directed. azaTHIOprine (IMURAN) 50 mg tablet Take 2 tablets by mouth once daily. calcitriol (ROCALTROL) 0.5 mcg capsule Take 0.5 mcg by mouth two times a week. cephALEXin (KEFLEX) 500 mg capsule Take 500 mg by mouth as needed. sevelamer carbonate (RENVELA) 800 mg tablet Sevelamer Carbonate Active 1600 MG PO 3 times per day with meals August 19, 2021 1:41pm Current Facility-Administered Medications on File Prior to Visit Medication perflutren lipid microspheres 1.3 mL in NaCl (PF) 0.9% 10 mL injection (DEFINITY) sodium chloride 0.9 % (flush) 10 mL (BD POSIFLUSH) ROS: Negative except for as listed above EXAM: LMP 02/24/2022 (Exact Date) APPEARANCE: alert, NAD, and cooperative EYES:conjunctiva and sclera normal and without drainage EARS: TMs without erythema and apppear normal bilat. Canals normal bilaterally. NOSE/SINUS: Mild turbinate hypertrophy. Septum is straight. No granulation. Some areas of minimal mucosal crusting MOUTH. Examination includes lips, tongue, teeth, buccal mucosa, gingiva, hard palate, floor the mouth. Normal. OROPHARYNX. Examination of the soft palate, posterior and lateral pharyngeal lui, tonsil fossa. normal NASOPHARYNX. Superior wall, lateral recess, rosenmuller's fossa, eustachian tube orifice, normal LARYNX AND HYPOPHARYNX: Examination of the base of tongue, epiglottis, arytenoids, aryepiglottic folds, glottis, ventricle, piriform and postcricoid regions normal. Vocal fold movement normal. NECK: Neck supple, no adenopathy; thyroid symmetric, normal size, no bruits. CRANIAL NERVE 2-7 AND 9-12: normal PROCEDURE: FIBEROPTIC EXAM OF THE LARYNX and HYPOPHARYNX Flexible transnasal laryngoscopy procedure. Reason: inadequate view of the larynx with a mirror due to gagging or macroglossia. Anesthetic: topical xylocaine and phenylephrine applied to nasal vestibule bilaterally. The following areas were examined: base of tongue.epiglottis, true and false vocal folds, ventricle, subglottic trachea, arytenoids and aryepiglottic folds, piriform and postcricoid region. FINDINGS: Lingual tonsil inflammation Normal vocal fold movement Subglottic trachea appears patent Assessment and plan 1. Chronic cough. Findings consistent with reflux with laryngeal inflammation.. Fiberoptic examination of her larynx reveals that the subglottis appears patent. This is consistent with previous CT of her chest completed in December 2021 approximately 11 months ago. She is scheduled for GI evaluation within the next 3 weeks. I have added Carafate to her management but patient understands this is subject to change or cancellation per GI 2. Rhinitis consistent with GPA. No granulation or localized bleeding sites. Recommend that she continue or resume use of saline spray to keep the lining of the nose moist. Suyapa Louise MD Tobacco Use: Never Was smoking cessation packet given? N/A - Patient is a non-smoker or quit >1 year ago. Was a referral initiated?N/A Patient is a non-smoker documented in this encounter [facility] 12-03-2022 Note [facility] 11-26-2022 History of Present illness Narrative [facility] Follow up Virtual Visit Consultation Requested by: Lauren Rodriguez MD PCP: Jeffrey Del Cid MD ([facility]) [address] [place] [address] CEREBROVASCULAR HISTORY Mita Duarte is a 42 year old right-handed female who is here for follow up of a left frontal ischemic stroke in July 2022 in the background of 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. Reason for Visit: stroke - Follow up for stroke, ?[employer] vasculitis Date of Last Event: 08/05/2022 History of Event: The patient reports she had sudden onset weakness in the right arm. A few minutes later she also was unable to talk. She was given IV thrombolysis at an OSH. There was no LVO. She had improvement and now some residual speech difficulty. The faster she talks, she has mild slurring of her words. She was initially treated with aspirin and plavix, then transitioned to Eliquis 2.5 mg BID since since August for stroke prevention. She reports she had a TIA described as sudden speech difficulty that lasted about 30 seconds to 1 minute. She was then changed to Eliquis 2.5 mg BID (due to kidney failure on dialysis). The patient notes she first had symptoms of 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 with sinus symptoms in December 2020, but diagnosed in Mar 2021 with a renal biopsy. She was treated with pulsed dose IVMP following her initial diagnosis. She was then on prednisone 60 mg daily, which was slowly tapered after 2 months and was completely stopped in July 2022. She was notably started on rituximab in May 2021 prior to stopping her prednisone. She stopped Rituxumab in May 2022. She was started on azathioprine 100 mg daily in May 2022, which was decreased just recently to 50 mg daily. She was switched to azathioprine from rituxumab in anticipation of kidney transplantation. Antiplatelets/Anticoagulants: Apixaban Statins: Atorvastatin Side effects: Yes - Heavy periods Refills needed: No Residual Deficits: Dysarthria Current PT/OT/ST: No therapy needs Initial Discharge Disposition: Home Current Living Situation: Home with children and Home with spouse - 2 kids (18 year old and 12 year old Current use of a mobility aid for walking/getting around: None Questions for Visit: 1. Is it ok to hold anticoagulation for 3 days an upcoming colonoscopy with possible biopsy? The following diagnostic workup was obtained and notable for: -Brain MRI w/wo 08/05/2022: left frontal acute ischemic infarct. Old infarct L cerebellum, and scattered punctate cortical T2/FLAIR hyperintensities (notably MRI was obtained after DSA) - DSA 08/05/22: unremarkable - c-ANCA and PR3 high positive 03/2021 - Anticardiolipin, B2GP ab 07/2022: negative The following treatments were previously administered: - IVMP pulsed dose 04/19/2021 - Prednisone 60 mg daily 04/19/2021 tapered slowly and stopped in May 2022. - Rituximab (05/16/2021, 05/23/2021, 05/30/2021, 06/06/2021, then 2 maintenance doses 6 and 12 months later) - Azathiapine 100 mg daily 05/2022. Down to 50 mg daily since 11/2022 for anemia. 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) History of transfusion Stroke (HCC) Surgical History PAST SURGICAL HISTORY Procedure Laterality Date SECTION HX TONSILLECTOMY HX Family History FAMILY HISTORY Problem Relation Age of Onset Diabetes Mother Hypertension Mother Hyperlipidemia Father Hypertension Father Diabetes Maternal Grandmother Cancer Paternal Grandmother breast Cancer Paternal Grandfather mouth & throat Social History Social History Tobacco Use Smoking status: Never Passive exposure: Never Smokeless tobacco: Never Substance Use Topics Alcohol use: Not Currently Drug use: Not Currently Current Medications Current Outpatient Medications Medication Sig atorvastatin (LIPITOR) 40 mg tablet Take 40 mg by mouth. pantoprazole DR (PROTONIX) 40 mg tablet Take 1 tablet by mouth every 12 hours. folic acid 1 mg tablet potassium chloride ER (KLOR-CON) 20 mEq tablet Take 20 mEq by mouth. lamoTRIgine ER (LAMICTAL XR) 100 mg 24 hr tablet Take 1 tablet by mouth twice daily. azaTHIOprine (IMURAN) 50 mg tablet Take 2 tablets by mouth once daily. apixaban (ELIQUIS) 2.5 mg tab(s) Take by mouth twice daily. lanthanum (FOSRENOL) 1,000 mg chewable tablet metoprolol tartrate, short acting, (LOPRESSOR) 25 mg tablet Take 25 mg by mouth twice daily. DIALYVITE 100-1 mg tab Take 1 tablet by mouth once daily. Cholecalciferol, Vitamin D3, 50 mcg (2,000 unit) cap Take 3,000 Units by mouth once daily. calcitriol (ROCALTROL) 0.5 mcg capsule Take 0.5 mcg by mouth two times a week. gentamicin 0.1% 0.1 % cream Apply to affected area as needed. cephALEXin (KEFLEX) 500 mg capsule Take 500 mg by mouth as needed. sevelamer carbonate (RENVELA) 800 mg tablet Sevelamer Carbonate Active 1600 MG PO 3 times per day with meals August 19, 2021 1:41pm polyethylene glycol 3350 (MIRALAX, GLYCOLAX) 17 gram/dose powder Take by mouth once daily. Dissolve dose in 4 - 8 ounces of liquid and take as directed. POTASSIUM ORAL Take 200 mg by mouth once daily. Current Facility-Administered Medications Medication Dose Route Frequency perflutren lipid microspheres 1.3 mL in NaCl (PF) 0.9% 10 mL injection (DEFINITY) INTRAVENOUS DIRECTED PRN sodium chloride 0.9 % (flush) 10 mL (BD POSIFLUSH) 10 mL INTRAVENOUS DIRECTED PRN Allergies ALLERGIES No Known Allergies PHYSICAL EXAMINATION [facility] 02/24/2022 (Exact Date) General: Well-developed, well-nourished, in no acute distress. HEENT: Normocephalic, atraumatic. Sclerae anicteric. Oropharynx clear. Skin: No rash or ecchymoses. Neurological: Awake, alert, oriented to person, place, and time. Speech fluent, no dysarthria. Naming, repetition, recall, comprehension, calculation intact. Good attention and insight into illness. Cranial Nerves: PERRL, extraocular movements intact without nystagmus. Visual mcdonnell full. Fundoscopic examination normal with sharp optic discs bilaterally. Facial sensation and movements normal and symmetric. Palate elevates equal bilaterally. Tongue midline. Trapezius strength 5/5 bilaterally. Motor: No drift Sensation: intact to light touch Coordination: no obvious dysmetria Reflexes: unable to assess Gait: narrow based, stable NIH 0 mRS 1 (able to do everything as before her stroke, but does have mild dysarthria with rapid speaking) Neurological Exam Reflexes Deep tendon reflexes graded by [facility] CT chest w/o 01/02/22: 1. No suspicious pulmonary nodule or thoracic lymphadenopathy. No ground-glass or consolidative airspace opacities. 2. Interval cholecystectomy since the prior abdominal CT from 04/11/2021. Pneumobilia is new and is likely postsurgical. 3. The kidneys are small/atrophied compared to the prior abdominal CT from 04/11/2021, likely due to the patient's history of GPA/end-stage renal disease. 4. A few tiny foci of free intraperitoneal gas are probably due to peritoneal dialysis, new compared to the prior exam. MRI brain w/o 07/31/22: * Multifocal acute ischemia, notably dorsolateral left frontal lobe [MCA territory], smaller discontiguous areas right MCA territory, findings worrisome for central embolic phenomenon. * Left cerebellar encephalomalacia. * Signal abnormality left mandibular body, sequelae odontogenic disease. SYLVESTER ([facility]) 08/03/22: No left atrial appendage thrombus noted. No PFO noted on this study. No evidence of valvular vegetation noted on this study. Left Ventricle: Left ventricle appears normal in size. Wall thickness is normal. Systolic function is normal with an ejection fraction of 60-65%. No segmental wall motion abnormalities. Left Atrium: Left atrium is normal in size. The pulmonary veins appear normal with normal venous flow. There is no thrombus in the left atrial appendage. The left atrial appendage is normal. The left atrial appendage emptying velocity is normal. The interatrial septum is intact. Agitated saline bubble study revealed no evidence of right to left interatrial shunting . Right Ventricle: Right ventricular size appears normal. Systolic function is normal. Aortic Valve: The aortic valve is trileaflet. There is no regurgitation or stenosis. No vegetation present on the aortic valve. Mitral Valve: Mitral valve structure is normal. There is trace regurgitation. There is no evidence of mitral valve stenosis. No vegetation present on the mitral valve. Tricuspid Valve: No vegetation present on the tricuspid valve. Pulmonic Valve: No vegetation present on the pulmonic valve. DSA ([facility]) 08/05/22: no structural vascular abnormality to explain stroke. Specifically, no vasculitis, atherosclerosis, large vessel occlusion, distal emboli, AVM, or fistula is seen. MRI brain w/o ([facility]) 08/05/22: Evolving ischemic change within the bilateral frontal lobes, left more so than right. Extent of confluence in the left frontal lobe is somewhat greater and prior. No new sites of involvement. No hemorrhagic conversion. LABS Cholesterol: Lipid profile ([facility]) 08/01/22: Cholesterol 220 Triglycerides 421 HDL 37 VLDL 48 LDL 135 Hemoglobin A1c: 4.7 on 07/31/22 at [facility] Immunosuppression Monitoring: WBC 3.98 11/24/2022 RBC 2.01 11/24/2022 Hemoglobin 7.3 11/24/2022 Hematocrit 22.6 11/24/2022 MCV 112.4 11/24/2022 MCH 36.3 11/24/2022 MCHC 32.3 11/24/2022 RDW-CV 15.0 11/24/2022 Platelet Count 200 11/24/2022 MPV 10.6 11/24/2022 Neut% 77.3 11/24/2022 Lymph% 9.8 11/24/2022 [place]% 5.8 11/24/2022 Eosin% 0.0 05/01/2021 Baso% 0.5 11/24/2022 Abs Neut (ANC) 3.08 11/24/2022 Abs [place] 0.23 11/24/2022 Abs Eosin 0.23 11/24/2022 Abs Baso <0.03 11/24/2022 Glucose (mg/dL) Date Value 11/24/2022 105 05/01/2021 80 Potassium (mmol/L) Date Value 11/24/2022 3.7 05/27/2021 3.0 05/01/2021 4.0 Sodium (mmol/L) Date Value 11/24/2022 141 05/01/2021 133 Chloride (mmol/L) Date Value 11/24/2022 101 05/01/2021 100 CO2 (mmol/L) Date Value 11/24/2022 25 05/01/2021 19 Creatinine (mg/dL) Date Value 11/24/2022 13.70 05/01/2021 3.34 BUN (mg/dL) Date Value 11/24/2022 30 05/01/2021 17 Anion Gap (mmol/L) Date Value 11/24/2022 15 05/01/2021 14 Calcium (mg/dL) Date Value 05/01/2021 8.4 Calcium, Total (mg/dL) Date Value 11/24/2022 8.9 Protein, Total (g/dL) Date Value 11/24/2022 5.2 05/01/2021 6.3 Albumin (g/dL) Date Value 11/24/2022 3.1 05/01/2021 3.4 Bilirubin, Total (mg/dL) Date Value 11/24/2022 0.4 05/01/2021 0.4 Alkaline Phosphatase (U/L) Date Value 11/24/2022 53 05/01/2021 57 AST (U/L) Date Value 11/24/2022 30 05/01/2021 12 ALT (U/L) Date Value 11/24/2022 20 05/01/2021 12 Hepatitis: Hep B Core Ab, Total (no units) Date Value 05/01/2021 Negative Hepatitis B Core Ab, Total (no units) Date Value 07/21/2022 Negative Hep C Antibody IA (no units) Date Value 07/21/2022 Negative 04/28/2021 Negative HBsAg (no units) Date Value 04/28/2021 Initially reactive Hep B Surface Ab, Qual (no units) Date Value 07/21/2022 Negative 05/01/2021 Negative TB: TB Result (no units) Date Value 07/21/2022 Negative 04/28/2021 Negative Inflammatory: WSR (mm/hr) Date Value 05/01/2021 22 04/28/2021 32 Sed Rate, Westergren (mm/hr) Date Value 11/09/2022 120 07/21/2022 37 06/18/2022 110 CRP (mg/dL) Date Value 11/24/2022 1.2 11/09/2022 0.5 08/26/2022 <0.3 05/01/2021 1.0 04/28/2021 2.0 WILMA (no units) Date Value 06/24/2021 Negative No results found for: RUDY No results found for: SMIB No results found for: RNPIB No results found for: SSAIB No results found for: SSBIB No results found for: CANCAFL No results found for: PANCAF No results found for: CANCA No results found for: PANCA No results found for: C3 No results found for: C4 No results found for: RF No results found for: ANTID Inflammatory Markers were reviewed and are Stable ESR ranges between 40s-120s CRP mostly negative, markedly eleavted at 22.96 on 04/12/21 MPO 04/12/21 [facility]: 0 PR3 04/12/21 [facility]: 1319 (H) ANCA IFA Titer 04/12/21 [facility]: 1:640 (H) ANCA IFA Pattern 04/12/21 [facility]: c-ANCA MPO 04/14/21 [facility]: 0 PR3 04/14/21 [facility]: 1319 (H) ANCA IFA Titer 04/14/21 [facility]: 1:640 (H) ANCA IFA Pattern 04/14/21 [facility]: c-ANCA Hypercoagulable labs OSH Antithrombin 3 function 08/27/22: 125 Protein S Activity 08/27/22: 160 (H) Protein C Activity 08/27/22: 132 Anticardiolipin Ab IgG, IgA, IgM 08/05/22: negative B2GP IgA, IgM, IGG 08/05/22: negative Homocysteine 08/04/22: 20.98 (H) Folate 08/04/22: 14.6 Jak2 V617 Mutation 05/11/22: no variant detected Cryoglobulin qualitative 1/29/22: negative 72 hour CSF Labs 08/27/22 [facility] CSF RBC 0 CSF WBC 0 nucleated cells CSF Glucose 66 CSF Protein 25 CSF Oligoclonal Bands No results found for: OLIGO CSF Inflammatory No results found for: CNSIGG No results found for: CSFIGG No results found for: [id number] , CSFSR , ACECSF , CARG , CASN , CLACT CSF Infectious No results found for: HSPCRC , HSPCR , BBURT , CSFVZV , VZOPCR , CSFCUL , VDRLCF , BDGLU , ASPCSF , AFC , WESTNILECSF Renal Biopsy [facility] 04/18/2021: KIDNEY, LEFT, PERCUTANEOUS BIOPYS: -- 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 Of those with crescents, 4 are cellular crescents and 17 are fibrocellular crescents with associated rupture of Manjarrez's capsules. Of those with fibrocellular crescents, 6 show segmental sclerosis and 9 show breaks and corrugation in the GBM, and of these, 3 also demonstrate fibrinoid necrosis and 1 additionally has endocapillary fibrin thrombi. One glomerulus shows isolated secondary segmental sclerosis. In addition, one interlobular artery show fibrinoid necrosis of the vessel wall with associated inflammation. There are no immune complex deposits by IF or EM and there is no endocapillary hypercellularity. There is no anti-GBM staining by IF. 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 There is severe activity with the above-mentioned crescent formation, fibrinoid necrosis, and vasculitis of arteries. There is moderate chronicity with the above-mentioned fibrocellular crescents and segmental scars. Of note, rupture of Manjarrez's capsule is associate with irreparable injury to glomeruli. There is also diffuse interstitial edema, interstitial inflammatory infiltrate, and tubular injury that is likely in response to the glomerular insult. IMPRESSION Left MCA distribution embolic appearing stroke of undetermined source. Not related to and no evidence of [employer] vasculitis despite history of 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 with polyangiitis. Notably CSF testing and vessel imaging were normal. Additionally c-ANCA related vasculitis often causes small vessel strokes, and this infarct appears to be centroembolic as there is an older left cerebellar infarct as well. In the context of normal appearing vessels, a cardioembolic source such as occult atrial fibrillation remains highest on the differential diagnosis as SYLVESTER was negative for any PFO or structural cardioembolic source. Mixed hyperlipidemia, last LDL 135 on 08/01/22 Granulomatosis with polyangiitis and renal involvement Post stroke epilepsy PLAN Continue Eliquis 2.5 mg BID for stroke prevention in the setting of cryptogenic embolic appearing stroke Okay to hold anticoagulation for 3 days for upcoming colonoscopy and possible biopsy Referral to electrophysiology for implantable loop recorder placement to screen for occult atrial fibrillation Continue atorvastatin 40 mg daily. Recheck fasting lipid panel when able, goal LDL <70 Continue management of 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 with azathioprine 50 mg once daily per rheumatology (Dr. Avendaño) Clarify with epilepsy (Dr. Maldonado) about lamotrigine 100 vs 125 mg BID extended release formulation. Patient is currently only taking LTG XR 100 mg BID. Follow up in 6 months, okay for virtual visit I spent a total of 60minutes on the date of service which included preparing to see the patient, [id number] patient care, completing clinical documentation, obtaining and/or reviewing separately obtained history, performing a medically appropriate examination, counseling and educating the patient/family/caregiver, ordering medications, tests, or procedures, communicating with other HCPs (not separately reported), independently interpreting results (not separately reported), and communicating results to the patient/family/caregiver Leidy Mosqueda MD. 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 Nasal crusting - doesn't do any rinses Had ear fullness and but no hearing loss No eye symptoms Had cough with clear sputum No oral ulceration or nasal ulceration She had fever for a month - T max for 99 -100.7 No weight loss She had vomiting due to uremia No neuropathy, no skin rash, no joint pain or joint She felt very sick, she went to urgent care x3 times and ER in her city She had horsy voice Her voice was horsey but now improved Then in early she became aneuric for 24 hours and was vomiting a lot. c ANCA 1:640. pr3 1319. CRP 22.96 N< 1. SD rate >100. Hep neg. TB NEG. GBM abs neg Ct chest 04/12/2021 Smooth symmetric bilateral interlobular septal thickening with edema Tree in bud opacities in right upper lobe Ill defining patchy ground glass opacities in right middle and upper lobes alveolar hemorrhage vs multi focal pneumonia Splenomegaly Kidney biopsy 04/18/2021 26 glomeruli, 21 with crescents and extensive injury. 4 cellula, 17 fibrocellular with ruptured manjarrez 'capsules. 6 with segmental sclerosis and 3 fibrinoid necrosis. One with interlobular artery with fibrinoid necrosis. Neg IF and EM . Still on HD 3 times a week TTS Was pulsed with IV steroid then 2/5 since then Takes her prednisone in the morning Not on PJP prophylaxis Breathing is alrgiht - sinuess are better She is vaccinated but not boosted yet No frequent infections Was started hydralazine during her admission as needed for BP >140/90 She has two kids - tubal ligation predniosone had GI upset but controlled with omeprazole Making little bit of urine Interval history December 11, 2021 2 months ago she had acute elevation of Transaminitis - was found to have dilated bile duct- she eventually under went cholecystectomy No reaction to her RTX (05/16- 05/23-05/30, 06/06) She is down to 5 mg of prednisone She got her evusheld - 06/11/2021 Sinuses are okay - no nasal bleeding or crusting No joint pain, no cough, hemoptysis, purpuric skin rash, numbness or tingling sensation Bactrim SS 3 times a week She was transferred to PD given hard vascular access April 21, 2022 No fever, chills, night sweats no recurrent infection Abdominal pain continues on right side No diarrhea, fever Last RTX 500 mg was on 01/09/2022 She is getting dental work up done for her transplant CT chest 01/02/2022 1. No suspicious pulmonary nodule or thoracic lymphadenopathy. No ground-glass or consolidative airspace opacities. 2. Interval cholecystectomy since the prior abdominal CT from 04/11/2021. Pneumobilia is new and is likely postsurgical. 3. The kidneys are small/atrophied compared to the prior abdominal CT from 04/11/2021, likely due to the patient's history of GPA/end-stage renal disease. 4. A few tiny foci of free intraperitoneal gas are probably due to peritoneal dialysis, new compared to the prior exam. July 27, 2022 She remains on AZA 100 mg - no side effects No active sinus symptoms, no skin rash, numbness, ocular inflammation No recent infection November 24, 2022 Had 2 dental extraction then 2 weeks later she had 2 strokes in July/2022 complicated by seizure - work up was neg including cerebral angiogram, SYLVESTER/TTE, hypercoable panel and LP - was send on Holter monitor and eliquis She was started on lamictal then started to have worsening GERD, nausea/vomiting - went to ED was given fluids but not images were done Answers submitted by the patient for this visit: Review of Systems Rheumatology (Submitted on 11/20/2022) Fever : Yes Recent Unintentional Weight Change: Yes Eye Pain: No Eye Redness: No Vision Disturbance: No Eye Dryness: No Nose Bleeds: Yes Sores in your Mouth: No Trouble Swallowing: No Dry Mouth: Yes Chest Pain: No Leg Swelling: No A Cough: Yes Blood when you Cough: No Shortness of Breath: No Pain with Breathing: No Heartburn: Yes Abdominal Pain: Yes Diarrhea: Yes Black Tarry Stools: No Blood in Urine: No Pain or Burning with Urination: No Joint Pain or Stiffness: No Muscle Weakness: No Muscle Aches: No Joint Swelling: No Morning Stiffness in Joints: No A Rash: No Skin Color Changes: No Hair Loss: No Nail Changes: No Headaches: No Numbness: No Memory Loss: No Swollen Glands: No PAST MEDICAL HISTORY: None PAST SURGICAL HISTORY: 2 csection CURRENT MEDICATIONS: Current Outpatient Medications Medication Sig folic acid 1 mg tablet potassium chloride ER (KLOR-CON) 20 mEq tablet Take 20 mEq by mouth. famotidine (PEPCID) 20 mg tablet Take 1 tablet by mouth once daily. lamoTRIgine ER (LAMICTAL XR) 100 mg 24 hr tablet Take 1 tablet by mouth twice daily. lamoTRIgine (LAMICTAL) 25 mg tablet Take 1 tablet by mouth twice daily. In addition to 100 mg for a total of 125 mg twice a day. apixaban (ELIQUIS) 2.5 mg tab(s) Take by mouth twice daily. lanthanum (FOSRENOL) 1,000 mg chewable tablet POTASSIUM ORAL Take 200 mg by mouth once daily. metoprolol tartrate, short acting, (LOPRESSOR) 25 mg tablet Take 25 mg by mouth twice daily. DIALYVITE 100-1 mg tab Take 1 tablet by mouth once daily. Cholecalciferol, Vitamin D3, 50 mcg (2,000 unit) cap Take 3,000 Units by mouth once daily. gentamicin 0.1% 0.1 % cream Apply to affected area as needed. polyethylene glycol 3350 (MIRALAX, GLYCOLAX) 17 gram/dose powder Take by mouth once daily. Dissolve dose in 4 - 8 ounces of liquid and take as directed. magnesium oxide (MAG-OX) 400 mg (241.3 mg magnesium) tablet Take 0.5 tablets by mouth once daily. azaTHIOprine (IMURAN) 50 mg tablet Take 2 tablets by mouth once daily. omeprazole (PRILOSEC) 20 mg capsule Take 1 capsule by mouth every afternoon. amLODIPine (NORVASC) 2.5 mg tablet Take 5 mg by mouth once daily. (Patient not taking: Reported on 11/13/2022) calcitriol (ROCALTROL) 0.5 mcg capsule Take 0.5 mcg by mouth two times a week. cephALEXin (KEFLEX) 500 mg capsule Take 500 mg by mouth as needed. sevelamer carbonate (RENVELA) 800 mg tablet Sevelamer Carbonate Active 1600 MG PO 3 times per day with meals August 19, 2021 1:41pm carvedilol (COREG) 12.5 mg tablet Current Facility-Administered Medications Medication Dose Route Frequency perflutren lipid microspheres 1.3 mL in NaCl (PF) 0.9% 10 mL injection (DEFINITY) INTRAVENOUS DIRECTED PRN sodium chloride 0.9 % (flush) 10 mL (BD POSIFLUSH) 10 mL INTRAVENOUS DIRECTED PRN ALLERGIES: Patient has no known allergies. 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 No nasal crusting or bleeding , TMs appeared normal LUNGS: on RA . No crackles NEURO: No facial asymmetry. Normal dorsiflexion Abdomen: PD cath in place. No epigastric or abdominal tenderness. 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 She was pulses on steroid then transitioned to oral 60 mg on 04/19 until present. Her local etched circuit processor is working on getting her RTX approved On exam she has clear saddle nose deformity with extensive bloody crusting in right nostril - unable to visualize if there is any nasal septum perforation or not We discussed treatment, prognosis and overall management with her and her She received 4 infusions of RTX ( 05/16- 05/23-05/30, 06/06/2021) for induction therapy Last manifence dose was on 01/03/2022 500 mg then was switched to AZA 100 mg She was seen by ENT - no signs of subglottic stenosis She is vaccinated against COVID infection DXA scan showed osteopenia T score of -0.3 baseline Immunoglobulins before RTX was normal She was started on Imuran in 05/2022 Had 2 dental extraction then 2 weeks later she had 2 strokes in July/2022 complicated by seizure - work up was neg including cerebral angiogram, blood culture, SYLVESTER/TTE, hypercoable panel and LP - was send on Holter monitor and eliquis She was started on lamictal then started to have worsening GERD, nausea/vomiting - went to ED was given fluids but not images were done Recommendations - will discuss with teams regarding GI symptoms (? Lamictal, AZA, do we need CT abdomen) - will discuss with ENT to check for SGS - I ordered CT chest without contrast - she is going to see Dr. Mosqueda - I doubt her strokes are related to GPA as her CSF and cerebral angiogram were normal. - will evaluate her anemia - MCV is high - check folate, b12 and iron study - found that lamictal can cause macrocytic anemia and neutropenia - will check LDH and haptoglobin - I doubt her nasal bleeding is related to GPA as her sinuses and ears feel good so far - Continue AZA 100 mg per day - she is off prednisone and bactrim - leukocytosis resolved - DXA scan was normal I spent a total of 50 minutes on the date of the service which included reviewing chart, interviewing patient, documentation, and placing orders Te Avendaño MD Rheumatology staff November 24, 2022 documented in this encounter [facility] 11-24-[address] Rodriguez to Dr. Escalante: Dr Escalante , Thanks for seeing Mita Duarte - her last stroke event was in July 2022 Likely etiology is underlying wegners granulomatosis If she needs Eliquis 2.5 mg BID help -- would hold for as minimal time as possible for her EGD . She is also scheduled to see Dr Mosqueda in vasculitis clinic 11/26 --- will discuss at the appoint as well Thanks JS documented in this encounter [facility] 11-13-2022 History of Present illness Narrative NAME: Mita Duarte [facility] NO: [id number] PHONE: [phone] (home) REFERRING PHYSICIAN: Spenser Biggs [id number] [facility] [id number] Biggs for an opinion regarding vomiting. My final recommendations will be communicated back to the requesting physician by way of shared Medical record or letter to requesting physician via US mail. 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 C/o N, V, dehydration - severe now, ER visit - responded to Zofran, Pepcid, and fluids. Sx are back, but not as severe. Daily PD. Cannot hold down meds. EGD recommended by ER doctor.... Mita Gerald presents for multiple concerns as stated in HPI, epigastric pain, nausea, vomiting, lightheadedness and and dry cough. Physical exam with tachycardia on arrival, this improved throughout ED course, remainder VSS. Orthostatic blood pressure obtained and normal. Lungs clear bilaterally without any wheezing, rhonchi or rales, heart sinus tach, abdomen is soft, nontender on my examination, no rebound or guarding, peritoneal dialysis catheter in situ without any erythema or drainage. No appreciable lower extremity edema. Was obtained from the lobby prior to my assessment: CBC with stable H&H, no leukocytosis. CMP with baseline elevated renal function, remainder of LFTs and electrolytes WNL. Magnesium 1.9. HST trend 195, 188, 186, low suspicion for ACS. CRP normal at 0.5. Sed rate 120 however patient has a history of chronic elevation. COVID, flu and RSV negative. X-ray negative for acute cardiopulmonary process. Patient given 500 cc IV fluid bolus, Pepcid and Zofran with significant improvement in her symptoms. Additional 500 cc fluid bolus given as well as p.o. challenge which patient tolerated without any difficulties or recurrence of her epigastric abdominal pain, nausea or vomiting. Discussed with patient the need to follow-up with GI as she likely needs an endoscopy to evaluate for gastritis versus PUD versus other ailment in her epigastric region, follow-up request placed however pending at time of disposition. Etiology of her lightheadedness appears to be likely related to volume as she has not not been eating and drinking sufficiently. Advised patient to continue drinking plenty of oral intake and follow-up closely with GI as well as her PCP. She was prescribed a short course of Zofran and Pepcid instructed on strict return to ED precautions. She is understanding and agreeable to discharge plan, all of her questions and concerns were addressed the best my ability. She was stable throughout prior to discharge. BP 106/74 (BP Site: Right Arm, BP Position: Sitting, BP Cuff Size: Large Adult) Pulse 117 Ht 152.4 cm (5') Wt 83 kg (183 lb) LMP 02/24/2022 (Exact Date) SpO2 99% BMI 35.74 kg/m Current Medications: Current Outpatient Medications Medication Sig magnesium oxide (MAG-OX) 400 mg (241.3 mg magnesium) tablet Take 0.5 tablets by mouth once daily. potassium chloride ER (KLOR-CON) 20 mEq tablet Take 20 mEq by mouth. ondansetron (ZOFRAN) 4 mg tablet Take 1 tablet by mouth every 6 hours as needed for nausea/vomiting for up to 7 days. famotidine (PEPCID) 20 mg tablet Take 1 tablet by mouth once daily. lamoTRIgine ER (LAMICTAL XR) 100 mg 24 hr tablet Take 1 tablet by mouth twice daily. azaTHIOprine (IMURAN) 50 mg tablet Take 2 tablets by mouth once daily. apixaban (ELIQUIS) 2.5 mg tab(s) Take by mouth twice daily. POTASSIUM ORAL Take 200 mg by mouth once daily. metoprolol tartrate, short acting, (LOPRESSOR) 25 mg tablet Take 25 mg by mouth twice daily. DIALYVITE 100-1 mg tab Take 1 tablet by mouth once daily. Cholecalciferol, Vitamin D3, 50 mcg (2,000 unit) cap Take 3,000 Units by mouth once daily. lamoTRIgine (LAMICTAL) 25 mg tablet Take 1 tablet by mouth twice daily. In addition to 100 mg for a total of 125 mg twice a day. lanthanum (FOSRENOL) 1,000 mg chewable tablet omeprazole (PRILOSEC) 20 mg capsule Take 1 capsule by mouth every afternoon. amLODIPine (NORVASC) 2.5 mg tablet Take 5 mg by mouth once daily. (Patient not taking: Reported on 11/13/2022) calcitriol (ROCALTROL) 0.5 mcg capsule Take 0.5 mcg by mouth two times a week. gentamicin 0.1% 0.1 % cream Apply to affected area as needed. cephALEXin (KEFLEX) 500 mg capsule Take 500 mg by mouth as needed. sevelamer carbonate (RENVELA) 800 mg tablet Sevelamer Carbonate Active 1600 MG PO 3 times per day with meals August 19, 2021 1:41pm carvedilol (COREG) 12.5 mg tablet polyethylene glycol 3350 (MIRALAX, GLYCOLAX) 17 gram/dose powder Take by mouth once daily. Dissolve dose in 4 - 8 ounces of liquid and take as directed. Current Facility-Administered Medications Medication Dose Route Frequency perflutren lipid microspheres 1.3 mL in NaCl (PF) 0.9% 10 mL injection (DEFINITY) INTRAVENOUS DIRECTED PRN sodium chloride 0.9 % (flush) 10 mL (BD POSIFLUSH) 10 mL INTRAVENOUS DIRECTED PRN Allergies: Patient has no known allergies. PAST MEDICAL HISTORY: Past surgeries: PAST SURGICAL HISTORY Procedure Laterality Date SECTION HX TONSILLECTOMY HX Medical Illnesses: see above Tobacco: No Alcohol: No Social and Personal History: Social History Tobacco Use Smoking status: Never Passive exposure: Never Smokeless tobacco: Never Substance Use Topics Alcohol use: Not Currently Drug use: Not Currently Family Medical History: FAMILY HISTORY Problem Relation Age of Onset Diabetes Mother Hypertension Mother Hyperlipidemia Father Hypertension Father Diabetes Maternal Grandmother Cancer Paternal Grandmother breast Cancer Paternal Grandfather mouth & throat ROS EyesNegative for vision changes, diplopia or epiphora. Ears, Mouth, nose, throat:no problems Cardiovascular: No Problems Respiratory: Negative for cough, wheezing and shortness of breath Gastrointestinal : See HPI Genitourinary: Negative Musuloskeletal: Denies significant problems Integumentary: No rashes, lesions, or bruising Neurological: No History of Neurological Problems Endocrine: Negative for cold or heat intolerance, polyuria, polydipsia and goiter. Psychiatric: Cooperative and Agreeable Allergic/ Immunologic: Negative All others negative PHYSICAL EXAM General appearance: Well appearing, alert, in no acute distress, well-hydrated, well nourished. Skin: Skin color, texture, turgor normal, no suspicious rashes or lesions Head: Normocephalic, no masses, lesions, tenderness or abnormalities Eyes: Anicteric sclera. Pupils are equally round and reactive to light. Extraocular movements are intact. Ears: External ears normal, canals clear Nose/Sinuses: Nares normal, septum midline, mucosa normal, no drainage or sinus tenderness Oropharynx: Lips, mucosa, and tongue normal, teeth and gums normal, oropharynx normal Neck: Supple, no adenopathy; thyroid symmetric, normal size, no bruits Back: Normal exam Lungs: Lungs clear to auscultation. No wheezing, rhonchi, rales. Heart: RRR without murmur, gallop, or rubs. No ectopy Abdomen: Normal abdominal exam, Abdomen soft, non-tender. Bowel sounds normal. No masses, organomegaly Extremities: No deformities, edema, skin discoloration, clubbing or cyanosis. Good capillary refill. Musculoskeletal: No joint swelling, deformity, or tenderness Peripheral pulses: Normal Neuro: Gait normal. Reflexes normal and symmetric. Sensation grossly intact. CBC: @LASTLABX[WBC:2,HB,MCV,PLT,neut,lymph p]@ CMP: @lastlabx[ALKPHOS,AST,ALT,TBIL,CBIL,G JUDITH,BUN,CREAT,NA,K1,CHLOR,CO2,TPROT,A LB,CA]@ TSH: No results found for: TSH Impression & Plan: N, V, dehydration - will give WHO oral hydration solution. Will only rec EGD when it is safe to stop Eliquis for 3 days. I have confirmed and edited as necessary PFSH and ROS obtained by others. Signature: Philip Escalante MD Date: November 13, 2022 Answers submitted by the patient for this visit: Review of Systems Gastro[facility] (Submitted on 11/12/2022) Fever: No Chills: No Night Sweats: No Unitentional Weight Change: Yes A Cough: Yes Difficulty Breathing: No Chest Pain: No Belly pain: Yes A feeling of fullness or have belly pain after eating: Yes Food getting stuck in your throat or chest after eating: No Nausea - that is, a feeling like you could vomit: Yes Regurgitation - that is, food or liquid coming back up into your throat or mouth without vomiting, or feel burning behind your breast bone: Yes Loss of appetite: Yes To throw up or vomit: Yes Blood in your stools: No Black tarry stools: No Loose or watery stools: Yes The feeling like you need to empty your bowels right away - that is, feel as if you would have an accident: No Bowel incontinence - that is, have an accident because you cannot make it to the bathroom in time: Yes Problems with straining while having bowel movements , hard or lumpy stools, or feel unfinished (that you have not passed all your stool): No Pain in rectum or anus during bowel movements: No Problems with jaundice - that is, yellow discoloration of your skin or eyes, now or in the past: No Problems with having to flush the toilet more than two times due to oily stool, or see stool floating with oil: No documented in this encounter [facility] 11-13-2022 Note [facility] 11-09-2022 Miscellaneous Notes [facility] pharmacy aware and prescription processed Patient aware Karen Cuevas RN Approval received Received approval for Lamotrigine from [facility]. Approval Dates: 11/06/2022-05/04/2023. REF #: [id number] Approval uploaded to MAPPING. [facility] Patel regarding PA Received approval as follows: Approval dates: 11/06/2022-05/04/2023 Qty: 60/30 Spoke spencer/[facility] # [id number] pharmacist - she was able to process prescription and will notify patient Spoke w/patient - confirmed above Karen Cuevas RN Submitted PA to [facility] for LTG ER 100 mg tablets Will await determination Karen Cuevas RN Prior Authorization Needed: Received by: Fax Requested by (pharmacy name): [facility] Phone number: [phone] Name of medication: Lamotrigine Strength and dosage: 100mg/ Take 1 tablet by mouth twice daily. Insurance company name and phone #: CMM DOZIER: [id number] Patient ID: PCN #: BIN#: Group #: Patient of Dr. Maldonado Forwarded to nurse. documented in this encounter [facility] 11-06-2022 Miscellaneous Notes Per [facility] - PA needed; will send CMM dozier to office Karen Cuevas RN The following approved medication requests have been transmitted electronically. Requested Prescriptions Signed Prescriptions Disp Refills lamoTRIgine ER (LAMICTAL XR) 100 mg 24 hr tablet 180 tablet 1 Sig: Take 1 tablet by mouth twice daily. If tolerating the LTG ER would then recommend trying to increase to 125 mg BID. Ryder Sykes APRN.CNP Patient prefers to trial LTG ER Forwarded to LINDEN 1 pool Karen Cuevas RN Trough lab Component Latest Ref Rng & Units 11/04/2022 Lamotrigine 1.0 - 13.0 ug/mL 5.3 Patient update: - no further seizures - last seizure: 11/04/2022 - continues to experience dizziness - taking LTG IR 100 mg BID Forwarded to LINDEN 1 butler for review/recommendation Karen Cuevas RN Continue LTG 100 mg BID for now. Will await level. Once level results will provide more recommendations. May try extended release version to see if that helps as next step depending on level. Ryder Sykes APRN.NOE Initial VV w/Dr. 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 She also has renal failure. On nightly peritoneal dialysis PLAN: - Increase LTG to 125 mg BID starting tomorrow AM over a week - LTG trough level tomorrow AM while still on 100 mg dose - May consider increasing further to 150 mg BID based on the level at 100 mg BID - OK to undergo renal transplant from epilepsy standpoint. Patient update: - 11/04 - seizure after waking - was lightheaded; allowed time from laying/sitting/standing Walked to bathroom; found by spouse leaning against wall - no body stiffening observed; no rib cramping + ZACARIAS No TB Unknown length Post-ictal: baseline - reports all day random lightheadedness - can occur when laying/sitting/standing or walking Reports sounds appear muffled No falls No ZACARIAS No blurry/double vision - Lightheadedness began ~ 3 weeks ago when she increased LTG to 100 mg BID - had trough LTG completed this AM - in process - has Not taken AM dose of LTG d/t lightheadedness - counseled to take dose - stopped BP medication under guidance of local etched circuit processor - had peritoneal dialysis PM 11/03 Patient reluctant to increase LTG Forwarded to LINDEN 1 butler for review/recommendation Karen Cuevas RN documented in this encounter [facility] 11-03-2022 History of Present illness Narrative [facility] Patient Name: Mita GAUTHIER Date of : 1980 INITIAL EPILEPSY CLINIC NOTE 11/03/2022 2:00 PM CHIEF COMPLAINT: New Patient HISTORY OF PRESENT ILLNESS Ms. Duarte is a 42 year old right-handed female seen in [facility] for initial consultation. We had a visit using: Alerts I received consent from the patient to perform the visit using this platform. At today's visit, the patient is accompanied by: , Spenser Handedness: right-handed Age of onset: 42 years Seizure History and Evolution I have communicated my name and active licensure. The patient's identity and physical location were verified at the time of this visit. Either the patient or their legal benefits representative has been informed of the risks and benefits of -- and alternatives to -- treatment through a remote evaluation and consents to proceed with the evaluation remotely. She had a R MCA territory stroke on 07/31/22. She got her care at [facility]. Then on 09/25/22, she had her first seizure. Since then she has had 2 more events. One was today morning and the other one was 2 days ago. The first two episodes have started with a cramp underneath her ribs. Did not get it today. The cramping is the last thing she remembers. Next thing she knows is coming to with post-ictal confusion. Had TB on Right side and today on the Left side. No UI. has seen all 3 episodes. After rib cramping compliant, she let out a odd grunt followed by right side face drooped and bilateral arm stiffening with unresponsiveness. No convulsions/clonic movements. The episodes have lasted <30 seconds. Taking LTG 100 mg BID. Has not missed any dose. No other exacerbating factors for the recent 2 seizures. Undergoes peritoneal dialysis every night. She is planing to undergo a renal transplant at [facility]. Not scheduled yet. History of Event: Event History: 07/31/22: [facility]; patient unable to speak but nodding to yes or no questions MRIb: multifocal ischemic infarcts in the dorsal lateral L frontal lobe with smaller discontinuous areas of infarct in the R MCA territory. CTA head and neck was negative for acute findings. Started on DAPT and Lipitor 08/20/22: [facility] ED with episode of R sided facial droop and unable to speak. Resolved prior to arrival to ED. CT negative for acute findings. Was instructed to follow up in outpatient stroke. 09/25/22: Syncopal episode ~30 sec to a minute; body went rigid per . ED visit. Per shipbeat message with Dr. Tiwari: I talked to the neurologist team. They said I have a lesion on my brain they are 75% sure is causing me to have seizures. Their official diagnosis is epilepsy. Interval: Patient referred [facility] by Dr. 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 Extensive work-up at that time --- No DVT -- no PFO ; no evidence of pericarditis or vegetations on transesophageal echocardiogram -- CSF studies did not show any evidence of intracranial inflammation -- Cerebral angiogram is also unremarkable Since then she had followed with neurology at [facility] -- Was placed on Eliquis and renally adjusted to 2.5 mg twice daily -- denies any bleeding in urine or stool -- She has noticed heavy menstrual cycles She is concerned about 2 spells concerning for seizures initially --- August 2022 : No severe headache; recollects the episode --states that she was unable to speak for a couple of minutes, felt confused--completely resolved -- In September 2022 : Had another spell where she was staring ahead nonresponsive, stiffening all her extremities and had tongue biting--the entire spell lasted for less than 1 to 2 minutes-felt confused for several minutes after. She was evaluated in the ED CT head was negative for any new infarcts or bleeds (MRI brain or MRV was not completed at this time) -- Denies any new symptoms of arm weakness leg weakness facial droop speech changes incoordination or any severe persistent headache --At this time was also started on Lamictal --she is uptitrating it slowly 200 mg twice daily goal dose --- Remains compliant on Eliquis 2.5 mg twice daily Has not seen epilepsy clinic ; EEG 20 minutes was unremarkable per patient For 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 she is on azathioprine Follows with [facility] rheumatology Total # of Current Anti-seizure Medications: 1 Side Effects to Current Anti-seizure Medications: None Seizure Frequency at First Visit: Longest Seizure-free Interval: Number of seizure types: 1 Hx of generalized tonic-clonic seizures: Yes Tongue bite: Yes Urine or Bowel Incontinence: No Status Epilepticus or clusters: No Postictal Agitation: No Seizure-related driving accidents: No Driving: No Lives Alone: No ED Visits in Last 3 Months: Yes Hospitalizations in Last 3 Months: Yes Highest Level of Education: Some college Current Vocation: On disability due to GPa CURRENT OUTPATIENT ANTISEIZURE MEDICATIONS (as of the start of the encounter) lamoTRIgine (LAMICTAL) 25 mg tablet Prior Anti-seizure Therapies: Trial Adequacy: Max Daily Dose Achieved: Side Effects: Effectiveness: Comments: Comorbidities: Episode Description: Patient Entered Data: EPILEPSY SCORE 11/01/2022 8:52 AM 11/01/2022 8:46 AM 09/29/2022 4:10 PM First answer obtained - 09/28/2022 5:08 PM PHQ-9 SCORE 3 [None-Minimal Depression] - 3 [None-Minimal Depression] - BESSY 2 SCORE 0 [Negative Anxiety Screen] - - - BESSY 7 SCORE - - - - QOLIE-10 SCORE (0=worst; 100=best QoL - higher scores represent better function) 19 - - - LSSS SCORE (0- no seizures 100- most severe possible seizures) 15 - - - C-SSRS SCREEN - - - - On average, how many hours of sleep do you get in a 24-hour period? 6 - - - PROMIS Sleep Disturbance T-SCORE - 58 [mild] - 58 [mild] Have you been diagnosed with Sleep Apnea? No - - - Seizure risk factors: Brain Tumor No [employer] Infections No Developmental Delay No Family history of seizures No Febrile Seizure No Complications No Stroke Yes Traumatic Brain Injury No Previous Epilepsy Evaluations Other caregivers: Primary Care Provider: Jeffrey Del Cid MD Current Outpatient Medications Medication Sig lamoTRIgine (LAMICTAL) 25 mg tablet Take 1 tablet by mouth twice daily. In addition to 100 mg for a total of 125 mg twice a day. lamoTRIgine (LAMICTAL) 100 mg tablet Take 1 tablet by mouth twice daily. In addition to 25 mg for a total of 125 mg twice a day. azaTHIOprine (IMURAN) 50 mg tablet Take 2 tablets by mouth once daily. apixaban (ELIQUIS) 2.5 mg tab(s) Take by mouth twice daily. lanthanum (FOSRENOL) 1,000 mg chewable tablet POTASSIUM ORAL Take 200 mg by mouth once daily. omeprazole (PRILOSEC) 20 mg capsule Take 1 capsule by mouth every afternoon. ondansetron (ZOFRAN) 4 mg tablet Take 4 mg by mouth every 6 hours as needed. metoprolol tartrate, short acting, (LOPRESSOR) 25 mg tablet Take 25 mg by mouth twice daily. DIALYVITE 100-1 mg tab Take 1 tablet by mouth once daily. amLODIPine (NORVASC) 2.5 mg tablet Take 5 mg by mouth once daily. Cholecalciferol, Vitamin D3, 50 mcg (2,000 unit) cap Take 3,000 Units by mouth once daily. calcitriol (ROCALTROL) 0.5 mcg capsule Take 0.5 mcg by mouth two times a week. gentamicin 0.1% 0.1 % cream Apply to affected area as needed. cephALEXin (KEFLEX) 500 mg capsule Take 500 mg by mouth as needed. sevelamer carbonate (RENVELA) 800 mg tablet Sevelamer Carbonate Active 1600 MG PO 3 times per day with meals August 19, 2021 1:41pm carvedilol (COREG) 12.5 mg tablet polyethylene glycol 3350 (MIRALAX, GLYCOLAX) 17 gram/dose powder Take by mouth once daily. Dissolve dose in 4 - 8 ounces of liquid and take as directed. 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 No -Vocation: On disability due to G[place] -Education: Some college -Cigarette, alcohol, substance use: None -Functional status: independent in activities of daily living -Patient driving? 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 She also has renal failure. On nightly peritoneal dialysis and there is a plan for a renal transplant in the coming future. She was started on lamotrigine after first seizure with titration up to 100 mg twice a day. She has been on this dose for a month or so and despite lack of any exacerbating factors, had to almost typical seizure in the last 3 days The patient's compliance with therapy has been: Excellent Classification Summary PLAN: - Increase LTG to 125 mg BID starting tomorrow AM over a week - LTG trough level tomorrow AM while still on 100 mg dose - May consider increasing further to 150 mg BID based on the level at 100 mg BID - OK to undergo renal transplant from epilepsy standpoint. Data reviewed as above including: electronic medical record Testing Ordered anticonvulsant level Education Counseling was provided to the patient that missed medications, addition of some new medications, use of alcohol or other substances, and sleep deprivation can lower the seizure threshold. Patient was advised to not drive until released by a physician. Patient was given my clinic contact information. Medical Management The possibility of serious and adverse reactions were discussed in detail as well as proper use of medication. I discussed that not taking this medication as directed could worsen seizures and can be dangerous. I discussed the risks, benefits and alternatives of the medical plan with the patient. Questions were answered. The patient agreed with the plan as discussed. FOLLOW-UP: Return in about 4 months (around 03/05/2023). I spent a total of 45 minutes on the date of the service which included: preparing to see the patient [id number] patient care completing clinical documentation ordering medications, tests, or procedures counseling and educating the patient/family/caregiver care coordination (not separately reported) Rich Maldonado MD cc: Primary Care Physician: Jeffrey Del Cid MD [id number] [facility] [id number] Referring: Patient: Ms. Mita Duarte [address] [id number] documented in this encounter [facility] 10-01-2022 Instructions Lauren Rodriguez MD - 10/01/2022 11:04 AM EDT Images from the original note were not included. 08/01/22 : Hypercoag workup: [id number] Folate: 14.6 Antiphospholipid Ab: negative Homocysteine 20.98 ESR 33 08/01/22 : Chol 220 LDL 135 CSF Studies : 08/27/22 : CSF total : 25 CSF Glu : 66 CSF cell count : RBC 0 WBC 0 IMAGIN09/25/22 : Ct head : IMPRESSION: Stable exam with moderate area of left cerebellar encephalomalacia likely sequelae of prior infarction. Otherwise there are no gross acute intracranial changes. The known remote left frontal lobe ischemic changes are not clearly defined in today's exam. 08/05/22 : MRI brain : Evolving ischemic changes left frontal lobe, about the frontal operculum and dorsolateral left frontal lobe; small areas within the anterior lateral right frontal lobe. Left frontal region is somewhat more confluent in extent of involvement in relation to comparison 07/31/2022, however there is no new sites of involvement. No hemorrhagic conversion. Encephalomalacia left cerebellar hemisphere, tiny area of encephalomalacia dorsolateral left frontal lobe. No ventricular outflow obstruction. Diminutive vertebrobasilar circulation, otherwise unremarkable intracranial vascular flow voids. No pathologic brain parenchymal enhancement. Unremarkable orbits, visualized suprahyoid neck, temporal bone structures, scalp soft tissues. 07/30/22 :CTA head neck : [place] : 08/03/22 : No left atrial appendage thrombus noted. No PFO noted on this study. No evidence of valvular vegetation noted on this study. Left Ventricle: Left ventricle appears normal in size. Wall thickness is normal. Systolic function is normal with an ejection fraction of 60-65%. No segmental wall motion abnormalities. Left Atrium: Left atrium is normal in size. The pulmonary veins appear normal with normal venous flow. There is no thrombus in the left atrial appendage. The left atrial appendage is normal. The left atrial appendage emptying velocity is normal. The interatrial septum is intact. Agitated saline bubble study revealed no evidence of right to left interatrial shunting . Right Ventricle: Right ventricular size appears normal. Systolic function is normal. Aortic Valve: The aortic valve is trileaflet. There is no regurgitation 08/02/22 : LE DVT screen Right: Lower extremity deep veins are compressible with spontaneous phasic spectral Doppler waveforms; superficial veins are compressible without intraluminal content. Left: Lower extremity deep veins are compressible with spontaneous phasic spectral Doppler waveforms; superficial veins are compressible without intraluminal content. Conclusions: BILATERAL: NO EVIDENCE of deep or superficial vein thrombosis of the lower extremities. Cerebral Angio : 08/05/22 : Impression: -no structural vascular abnormality to explain stroke. Specifically, no vasculitis, atherosclerosis, large vessel occlusion, distal emboli, AVM, or fistula is seen. Farhat Smiley MD PhD Neurointerventional Surgery IMPRESSION Left frontal ischemic stroke : July 2022----likely related to 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 (CSF protein 25 normal ; CSF WBC 0; echocardiogram no thrombus; no PFO ; no marantic vegetations or pericarditis)--- on anticoagulation with eliquis 2.5 mg BID ( started 09/29/22) Undefined age for left cerebellar infarct Current residual deficits : mild facial asymmetry mild dysarthria ; mild bilateral tremors Spells of stiffening increased tone tongue biting loss of awareness--- lasting less than 1 minute and postictal for about 5 to 10 minutes : October 01, 2022-----has been initiated on Lamictal titration : Goal 100 mg twice daily Peritoneal dialysis -end-stage renal disease on transplant list 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--- diagnosed 2020 --follows [facility]ology Hyperlipidemia 08/01/2022 cholesterol 220 LDL 135 -currently on Lipitor Hypertension well-controlled PLAN Patient is currently on Eliquis 2.5 mg twice daily--- tolerating well; will monitor hemoglobin closely and also for menorrhagia / menstrual cycle frequency No clear involvement of intracranial vasculature at this time--- cerebral angiogram without any intracranial stenosis; CSF studies at the time of infarct in July 2022 was normal protein and no inflammatory cells CTA head and neck : Large R P-comm ; smaller diameter basilar artery--overall good collaterals and intact [place] Pending cardiac work-up including telemetry Non-smoker ; 1 miscarriage 2 healthy children Beta-2 glycoprotein cardiolipin antibodies are normal continue lamotrigine titration --- Target lamotrigine 100 mg twice daily Epilepsy consulted From stroke standpoint she is cleared for renal transplant evaluation. --- if any headache / recurrent Sz --- MRI brain MRV brain --- at this time no headache And no spells since starting lamotrigine FU in vasculitis clinic in 3 months Uninterrupted anticoagulation recommended . For dental care geriatric dentition care can provide care without holding Eliquis Also with immunosuppression --- please ask PCP / rheumatology regarding pre treatment with antibiotics prior to dental work Lauren Rodriguez MD Staff, [facility] [address] [place] [id number] 10/01/2022 11:18 AM General Guidelines to Help Reduce Risk of Recurrent Stroke Blood Pressure Management: Blood Pressure reduction is recommended for both prevention of recurrent stroke and prevention of other vascular events in persons who have had an ischemic stroke or TIA and are beyond the first 24 hours. Several lifestyle modifications have been associated with BP reduction and are a reasonable part of a comprehensive antihypertensive therapy. These modifications include: - salt restriction (less than 2 grams per day) - weight loss - consumption of a diet rich in fruits, vegetables, and low-fat dairy products - regular aerobic physical activity - limited alcohol consumption Goal: Prehypertension (BP less than 130/80 mm Hg): - Perform annual BP screening and lifestyle modifications Hypertension: (BP greater than or equal to 130/80 mm Hg) - Combine medications with above lifestyle modifications to reach your goal blood pressure as defined above. - Monitor your blood pressure at home regularly to ensure you are reaching your goals Diabetes Mellitus: - the goal for glycemic control should be individualized based on the risk for adverse events, patient characteristics and preferences, and, for most patients with diabetes, achieving a goal of HbA1c =7% is recommended to reduce risk for microvascular complications. - treatment of diabetes should include glucose-lowering medications with proven cardiovascular benefit to reduce the risk for future major adverse cardiovascular events (eg, stroke, heart attack) Cholesterol and Lipid Management - Statin (rosuvastatin or atorvastatin) therapy with intensive lipid-lowering effects is recommended to reduce risk of stroke and cardiovascular events among patients with ischemic stroke or TIA who have LDL cholesterol > 100 mg/dL, or evidence of atherosclerosis. - A goal of LDL cholesterol < 70 mg/dL for stroke or TIA patients on lipid lowering therapy is recommended. - Ezetimibe in combination with statin therapy to lower the LDL cholesterol < 70 mg/DL is recommended, if statin therapy alone is insufficient to attain this treatment target. - For patients with ischemic stroke at very high risk, already taking maximally tolerated statin and ezetimibe and still have an LDL cholesterol > 70 mg/dL, it is reasonable to treat with a proprotein convertase subtilisin/kexin type 9 (PCSK9) inhibitor to prevent atherosclerotic cardiovascular or cerebrovascular events. - In patients with ischemic stroke or TIA, with fasting triglycerides 135 to 499 mg/dL and LDL cholesterol of 41 to 100 mg/dL, on moderate- or high-intensity statin therapy, with HbA1c <10%, and with no history of pancreatitis, atrial fibrillation, or severe heart failure, treatment with icosapent ethyl (IPE) 2 g twice a day is reasonable to reduce risk of recurrent stroke Diet: - Reduced sodium and increased potassium intake; DASH-style diet rich in fruits and vegetables (https://www.nhlbi.nih.gov/education/ nolg-xjovdd-lbgf) - Consider Mediterranean diet supplemented with nuts Smoking and Tobacco Use: - Strongly recommend smoking and tobacco use cessation to reduce risk of stroke. - Counseling, nicotine products, and oral smoking cessation medications are effective for helping smokers quit and can be provided if needed. Alcohol Consumption: - Patients with ischemic stroke or TIA who drink greater than or equal to 2 alcoholic drinks a day, should eliminate alcohol use or reduce their consumption of alcohol to less than equal to 1 alcohol drink per day to reduce stroke risk Exercise - In patients with stroke or TIA who are capable of physical activity, engaging in at least moderate-intensity aerobic activity for a minimum of 10 minutes 4 times a week or vigorous-intensity aerobic activity for a minimum of 20 minutes twice a week is indicated to lower the risk of recurrent stroke - In patients with deficits after stroke that impair their ability to exercise, supervision of an exercise program by a health client care representative such as a physical therapist or cardiac rehabilitation professional, in addition to routine rehabilitation, can be beneficial for secondary stroke prevention - In individuals with stroke or TIA who sit for long periods of uninterrupted time during the day, it may be reasonable to recommend breaking up sedentary time with intervals as short as 3 minutes of standing or light exercise every 30 minutes for their cardiovascular health Adapted from the [place] [employer]/[place] St[employer] Association: 202 Guideline for the Prevention of Stroke in Patients With Stroke and Transient Ischemic Attack Seizure Precautions: -No driving. -No swimming or bathing alone or unless someone is present who can physically pull you out of the water should a seizure occur. -Avoid standing over an open flame and stove. -Use dangerous household appliances (iron, curling iron, etc) with supervision. -No using heavy machinery. -No climbing tall heights such as ladders. -You should not perform any activity where sudden loss of awareness or consciousness would put you or those around you in, this may include certain sports or exercise Safety: -Explain precautions and first aid to your family and friends as well as employers or schools. -Carry a card with your list of medications. -Do not lock doors. -Do not use electrical appliances near water. -Try to use electrical rather than gas appliances when possible and use the back burners. -Avoid sleeping on stomach. Avoid Triggers: -Missing doses of your medication or any abrupt medications changes. Do not discontinue seizure medication on your own as this may lead to a severe seizure. Please contact the office for refills 2 weeks before your medication refill expires. -Stress - emotional or physical such as an acute illness or intense activity -Sleep deprivation or change in sleeping patterns -Alcohol use (both an excessive amount or suddenly stopping after chronic use) -Substance abuse or illegal drug use -For some, bright or flashing lights -Hormonal changes such as menstrual periods, supplemental estrogen -Some medications make it more likely to have seizures, especially tramadol, bupropion (Wellbutrin), benadryl, lithium, and some antibiotics. Always check with your physician before starting a new medication. During generalized seizures with shaking or stiffening of whole body: -Do your best to stay calm and look at the clock. -If there is a warning sign or feeling, get to a safe place (lowered down to the floor) quickly -Loosen any tight clothing around the neck -Do not put anything into the mouth, do not put water on the face -Look around to ensure nothing close that can cause injury -If available, put a soft object such as a pillow or sweatshirt under the head -Stay with them until recovered back to normal. It is normal for patient to be very sleepy, tired and confused for minutes to a few hours. They may also complain of headache and vomit. During seizures of staring or confusion: -Do not restrain. If walking around, gently steer away from any danger -Remove any dangerous objects (knives, pencils, hot beverages) from hands -Reassure the patient -Stay with patient until fully recovered Call if: -Any injury was sustained -Shaking or stiffening lasts longer than 5 minutes -Patient has back to back seizures -Patient has difficulty breathing -Patient is not returning to normal -Patient is or diabetic -If patient has been ill or had a fever before the seizure -If patient is combative or agitated after a seizure and is dangerous to themselves or others There is no need to call 9-1-1 if the seizure is short, without injury, typical for the patient, and patient returned to baseline without further event. However, you should still notify your healthcare provider of the breakthrough seizure for further non-urgent management, especially if the number or severity of seizures is more than baseline. Helpful Websites: [email or web address] documented in this encounter [facility] 10-01-2022 History of Present illness Narrative Images from the original note were not included. [facility] Initial Visit Consultation is requested by: Te Avendaño [address] [facility] [id number] PCP: Jeffrey Del Cid MD ([facility]) [address] [place] [id number] NURSING INTAKE NOTE : Reason for Visit: stroke and seizure disorder Date of Last Event: 09/25/2022 History of Event: Event History: 07/31/22: [facility]; patient unable to speak but nodding to yes or no questions MRIb: multifocal ischemic infarcts in the dorsal lateral L frontal lobe with smaller discontinuous areas of infarct in the R MCA territory. CTA head and neck was negative for acute findings. Started on DAPT and Lipitor 08/20/22: Returned to [facility] ED with episode of R sided facial droop and unable to speak. Resolved prior to arrival to ED. CT negative for acute findings. Was instructed to follow up in outpatient stroke. 09/25/22: Syncopal episode ~30 sec to a minute; body went rigid per . ED visit. Per [facility] message with Dr. Tiwari: I talked to the neurologist team. They said I have a lesion on my brain they are 75% sure is causing me to have seizures. Their official diagnosis is epilepsy. Interval: Patient referred to Center by Dr. 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 Extensive work-up at that time --- No DVT -- no PFO ; no evidence of pericarditis or vegetations on transesophageal echocardiogram -- CSF studies did not show any evidence of intracranial inflammation -- Cerebral angiogram is also unremarkable Since then she had followed with neurology at [facility] -- Was placed on Eliquis and renally adjusted to 2.5 mg twice daily -- denies any bleeding in urine or stool -- She has noticed heavy menstrual cycles She is concerned about 2 spells concerning for seizures initially --- August 2022 : No severe headache; recollects the episode --states that she was unable to speak for a couple of minutes, felt confused--completely resolved -- In September 2022 : Had another spell where she was staring ahead nonresponsive, stiffening all her extremities and had tongue biting--the entire spell lasted for less than 1 to 2 minutes-felt confused for several minutes after. She was evaluated in the ED CT head was negative for any new infarcts or bleeds (MRI brain or MRV was not completed at this time) -- Denies any new symptoms of arm weakness leg weakness facial droop speech changes incoordination or any severe persistent headache --At this time was also started on Lamictal --she is uptitrating it slowly 200 mg twice daily goal dose --- Remains compliant on Eliquis 2.5 mg twice daily Has not seen epilepsy clinic ; EEG 20 minutes was unremarkable per patient For 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 she is on azathioprine Follows with [facility] rheumatology 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) History of transfusion PAST SURGICAL HISTORY Procedure Laterality Date SECTION HX TONSILLECTOMY HX FAMILY HISTORY Problem Relation Age of Onset Diabetes Mother Hypertension Mother Hyperlipidemia Father Hypertension Father Diabetes Maternal Grandmother Cancer Paternal Grandmother breast Cancer Paternal Grandfather mouth & throat Social History Tobacco Use Smoking status: Never Passive exposure: Never Smokeless tobacco: Never Substance Use Topics Alcohol use: Not Currently Drug use: Not Currently MEDICATIONS Current Outpatient Medications Medication Sig apixaban (ELIQUIS) 2.5 mg tab(s) Take by mouth twice daily. lanthanum (FOSRENOL) 1,000 mg chewable tablet POTASSIUM ORAL Take 200 mg by mouth once daily. lamoTRIgine (LAMICTAL) 25 mg tablet Take 50 mg by mouth. omeprazole (PRILOSEC) 20 mg capsule Take 1 capsule by mouth every afternoon. ondansetron (ZOFRAN) 4 mg tablet Take 4 mg by mouth every 6 hours as needed. metoprolol tartrate, short acting, (LOPRESSOR) 25 mg tablet Take 25 mg by mouth twice daily. azaTHIOprine (IMURAN) 50 mg tablet Take 2 tablets by mouth once daily. DIALYVITE 100-1 mg tab Take 1 tablet by mouth once daily. amLODIPine (NORVASC) 2.5 mg tablet Take 5 mg by mouth once daily. Cholecalciferol, Vitamin D3, 50 mcg (2,000 unit) cap Take 3,000 Units by mouth once daily. gentamicin 0.1% 0.1 % cream Apply to affected area as needed. polyethylene glycol 3350 (MIRALAX, GLYCOLAX) 17 gram/dose powder Take by mouth once daily. Dissolve dose in 4 - 8 ounces of liquid and take as directed. calcitriol (ROCALTROL) 0.5 mcg capsule Take 0.5 mcg by mouth two times a week. cephALEXin (KEFLEX) 500 mg capsule Take 500 mg by mouth as needed. sevelamer carbonate (RENVELA) 800 mg tablet Sevelamer Carbonate Active 1600 MG PO 3 times per day with meals August 19, 2021 1:41pm carvedilol (COREG) 12.5 mg tablet Current Facility-Administered Medications Medication Dose Route Frequency perflutren lipid microspheres 1.3 mL in NaCl (PF) 0.9% 10 mL injection (DEFINITY) INTRAVENOUS DIRECTED PRN sodium chloride 0.9 % (flush) 10 mL (BD POSIFLUSH) 10 mL INTRAVENOUS DIRECTED PRN ALLERGIES ALLERGIES No Known Allergies PHYSICAL EXAMINATION BP 119/88 (BP Site: Right Arm, BP Position: Sitting, BP Cuff Size: Regular Adult) Pulse 116 Ht 152.4 cm (5') Wt 87.5 kg (193 lb) LMP 02/24/2022 (Exact Date) SpO2 100% BMI 37.69 kg/m Gen. alert oriented 3 Cardiorespiratory: Pulse rhythmic; breathing pattern normal Abdomen: No tenderness Extremity: No edema Skin: Normal Speech : slight halting noted -- otherwise fluent ; naming grammar syntax intact MENTAL STATUS: Alert, oriented to person, place and time CRANIAL NERVES: PERRLA, EOM's intact, Visual mcdonnell intact to confrontation, Extraocular movements intact, Facial sensation intact, Face symmetric, No facial droop or ptosis, Hearing intact to finger rub bilaterally, No dysarthria, Palate elevates symmetrically, Tongue protrudes midline and Shoulder shrug intact and symmetric MOTOR: No drift and Normal tone --- mild tremors b/l MOTOR STRENGTH: Upper and lower extremity 5/5 bilaterally REFLEXES: UE and LE reflexes are equal and reactive SENSATION: Intact light touch in all extremities COORDINATION: Finger-to- nose-finger intact bilaterally and [id number]-[id number] intact bilaterally GAIT: Normal-based LABS : 08/01/22 : Chol 220 LDL 135 Hba1c : 4.7 ( 07/31/22 ) 08/01/22 : Hypercoag workup: [id number] Folate: 14.6 Antiphospholipid Ab: negative Homocysteine 20.98 ESR 33 CSF Studies : 08/27/22 : CSF total : 25 CSF Glu : 66 CSF cell count : RBC 0 WBC 0 IMAGIN09/25/22 : Ct head : IMPRESSION: Stable exam with moderate area of left cerebellar encephalomalacia likely sequelae of prior infarction. Otherwise there are no gross acute intracranial changes. The known remote left frontal lobe ischemic changes are not clearly defined in today's exam. 08/05/22 : MRI brain : Evolving ischemic changes left frontal lobe, about the frontal operculum and dorsolateral left frontal lobe; small areas within the anterior lateral right frontal lobe. Left frontal region is somewhat more confluent in extent of involvement in relation to comparison 07/31/2022, however there is no new sites of involvement. No hemorrhagic conversion. Encephalomalacia left cerebellar hemisphere, tiny area of encephalomalacia dorsolateral left frontal lobe. No ventricular outflow obstruction. Diminutive vertebrobasilar circulation, otherwise unremarkable intracranial vascular flow voids. No pathologic brain parenchymal enhancement. Unremarkable orbits, visualized suprahyoid neck, temporal bone structures, scalp soft tissues. 07/30/22 :CTA head neck : SYLVESTER : 08/03/22 : No left atrial appendage thrombus noted. No PFO noted on this study. No evidence of valvular vegetation noted on this study. Left Ventricle: Left ventricle appears normal in size. Wall thickness is normal. Systolic function is normal with an ejection fraction of 60-65%. No segmental wall motion abnormalities. Left Atrium: Left atrium is normal in size. The pulmonary veins appear normal with normal venous flow. There is no thrombus in the left atrial appendage. The left atrial appendage is normal. The left atrial appendage emptying velocity is normal. The interatrial septum is intact. Agitated saline bubble study revealed no evidence of right to left interatrial shunting . Right Ventricle: Right ventricular size appears normal. Systolic function is normal. Aortic Valve: The aortic valve is trileaflet. There is no regurgitation 08/02/22 : LE DVT screen Right: Lower extremity deep veins are compressible with spontaneous phasic spectral Doppler waveforms; superficial veins are compressible without intraluminal content. Left: Lower extremity deep veins are compressible with spontaneous phasic spectral Doppler waveforms; superficial veins are compressible without intraluminal content. Conclusions: BILATERAL: NO EVIDENCE of deep or superficial vein thrombosis of the lower extremities. Cerebral Angio : 08/05/22 : Impression: -no structural vascular abnormality to explain stroke. Specifically, no vasculitis, atherosclerosis, large vessel occlusion, distal emboli, AVM, or fistula is seen. Farhat Smiley MD PhD Neurointerventional Surgery Patient Entered Questionnaires Health Status Impact by Stroke or CVD 09/28/2022 Impact Somewhat PROMIS/NeuroQoL Score Percentiles Physical Health 09/28/2022 07/14/2022 04/20/2022 Physical Function Percentile 24* 27* 42 Sleep Percentile 21* - - Fatigue Percentile 24* 24* 24* Pain Interference Percentile 62 84 62 PROMIS SOCIAL ROLE SCORE 09/28/2022 Social Role Satisfaction Percentile 8 Mental Health 09/28/2022 NeuroQol Cognitive Function Percentile 42 General Self-Efficacy Percentile 38 PROMIS Global Health Scale 09/28/2022 05/09/2022 02/07/2022 Physical Health Percentile 31 41 53 Mental Health Percentile 34 43 63 Percentiles provide an indication of how a patient's score ranks in relation to the [place] general population. > 31st percentile is within normal limits or better * < 31st percentile is at least SD worse than population, which may be clinically relevant < 16th percentile is at least 1 SD worse than population and warrants attention Depression Screening: PHQ-9 09/29/2022 09/28/2022 Score 3 6 Self-Harm Response 0 0 PHQ-9 Scores: PHQ-9 Self-Harm (Item 9) Response: 0 - 9 No to Mild depression 0 - Not at all 10 - 14 Moderate depression 1 - Several Days > 15 Severe depression 2 - More than half the days 3 - Nearly every day Sleep Apnea Probability Score 09/28/2022 Sleep Apnea Screen V2 18 (Sleep study not recommended) Stroke Mechanism and Scales Ischemic or TIA: Ischemic Stroke TOAST Mechanism (CCF-MODIFIED): Stroke of Other Determined Etiology - 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 Modified Gutierrez Score: Score: 0 NIH Stroke Scale: LOC: 0 LOC Questions: 0 LOC Commands: 0 LOC Normal Gaze: 0 Visual Mcdonnell: 0 Facial Palsy: 0 Motor Left Arm: 0 Motor Right Arm: 0 Motor Left Le Motor Right Le Limb Ataxia: 0 Sensory: 0 Language: 0 Dysarthria: 0 Extinction/Neglect: 0 Total Daily NIHSS: 0 IMPRESSION Left frontal ischemic stroke : July 2022----likely related to 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 (CSF protein 25 normal ; CSF WBC 0; echocardiogram no thrombus; no PFO ; no marantic vegetations or pericarditis)--- on anticoagulation with eliquis 2.5 mg BID ( started 09/29/22) Undefined age for left cerebellar infarct Current residual deficits : mild facial asymmetry mild dysarthria ; mild bilateral tremors Spells of stiffening increased tone tongue biting loss of awareness--- lasting less than 1 minute and postictal for about 5 to 10 minutes : October 01, 2022-----has been initiated on Lamictal titration : Goal 100 mg twice daily Peritoneal dialysis -end-stage renal disease on transplant list 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--- diagnosed 2020 --follows [facility] rheumatology Hyperlipidemia 08/01/2022 cholesterol 220 LDL 135 -currently on Lipitor Hypertension well-controlled PLAN Patient is currently on Eliquis 2.5 mg twice daily--- tolerating well; will monitor hemoglobin closely and also for menorrhagia / menstrual cycle frequency No clear involvement of intracranial vasculature at this time--- cerebral angiogram without any intracranial stenosis; CSF studies at the time of infarct in July 2022 was normal protein and no inflammatory cells CTA head and neck : Large R P-comm ; smaller diameter basilar artery--overall good collaterals and intact [place] Pending cardiac work-up including telemetry Non-smoker ; 1 miscarriage 2 healthy children Beta-2 glycoprotein cardiolipin antibodies are normal continue lamotrigine titration --- Target lamotrigine 100 mg twice daily Epilepsy consulted From stroke standpoint she is cleared for renal transplant evaluation. --- if any headache / recurrent Sz --- MRI brain MRV brain --- at this time no headache And no spells since starting lamotrigine FU in vasculitis clinic in 3 months Uninterrupted anticoagulation recommended . For dental care geriatric dentition care can provide care without holding Eliquis Also with immunosuppression --- please ask PCP / rheumatology regarding pre treatment with antibiotics prior to dental work I spent a total of 60 minutes on the date of service which included preparing to see the patient, [id number] patient care, completing clinical documentation, obtaining and/or reviewing separately obtained history, performing a medically appropriate examination, counseling and educating the patient/family/caregiver, and ordering medications, tests, or procedures SIGNATURE Lauren Rodriguez MD Staff, [facility] [address] [facility] [id number] 10/01/2022 4:19 PM Te Burgosjericho [address] [facility] [id number] Jeffrey Del Cid MD ([facility]) [address] [place] [address] documented in this encounter [facility] 09-30-2022 Miscellaneous Notes OSH imaging/records pending: September 30, 2022 Called and spoke to Grayson in the film room at [facility] to have images on the patient push through to the PACS System. Grayson stated that he was pushing over at CT Soft Tissue Neck scan from March 2021 on the patient through to the PACS System, and that we should receive the images shortly. Called and spoke to Lore in the film room at [facility] to have images on the patient push through to the PACS System. Lore stated that she was pushing over brain and spine images on the patient from July thru September 2022 through to the PACS System, and that we should receive the images shortly. Called and spoke to Kassandra in the film room at [facility] to have images on the patient push through to the PACS System. Kassandra stated that she was pushing over images from July 2022 on the patient through to the PACS System, and that we should receive the images shortly, and reports are being faxed over as well. documented in this encounter [facility] 09-14-2022 Miscellaneous Notes Called and spoke to Mita regarding updates. Pt Had stroke July 30 and has since completed speech therapy. Not using any devices to ambulate. No residual weakness. Has new a fib dx but taking baby Asprin only. Now has Holter monitor to determine if this is true A fib or isolated event. Needs to complete dental October 13 for [place] [facility] auth. New dx HLD and now taking Lipitor. Still has LD, no changes to UOP. Explained that she will need to RTC and my need to see Neuro. Will update pt on Wed. Mita Verbalized her understanding. Kenny Orozco RN documented in this encounter [facility] 07-27-2022 History of Present illness Narrative Established patient: GPA Evaluation Date: July 27, 2022 I have communicated my name and active licensure. The patient's identity and physical location were verified at the time of this visit. Either the patient or their legal benefits representative has been informed of the risks and benefits of -- and alternatives to -- treatment through a remote evaluation and consents to proceed with the evaluation remotely. 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 Nasal crusting - doesn't do any rinses Had ear fullness and but no hearing loss No eye symptoms Had cough with clear sputum No oral ulceration or nasal ulceration She had fever for a month - T max for 99 -100.7 No weight loss She had vomiting due to uremia No neuropathy, no skin rash, no joint pain or joint She felt very sick, she went to urgent care x3 times and ER in her city She had horsy voice Her voice was horsey but now improved Then in early she became aneuric for 24 hours and was vomiting a lot. c ANCA 1:640. pr3 1319. CRP 22.96 N< 1. SD rate >100. Hep neg. TB NEG. GBM abs neg Ct chest 04/12/2021 Smooth symmetric bilateral interlobular septal thickening with edema Tree in bud opacities in right upper lobe Ill defining patchy ground glass opacities in right middle and upper lobes alveolar hemorrhage vs multi focal pneumonia Splenomegaly Kidney biopsy 04/18/2021 26 glomeruli, 21 with crescents and extensive injury. 4 cellula, 17 fibrocellular with ruptured manjarrez 'capsules. 6 with segmental sclerosis and 3 fibrinoid necrosis. One with interlobular artery with fibrinoid necrosis. Neg IF and EM . Still on HD 3 times a week TTS Was pulsed with IV steroid then 2/5 since then Takes her prednisone in the morning Not on PJP prophylaxis Breathing is alrgiht - sinuess are better She is vaccinated but not boosted yet No frequent infections Was started hydralazine during her admission as needed for BP >140/90 She has two kids - tubal ligation predniosone had GI upset but controlled with omeprazole Making little bit of urine Interval history December 11, 2021 2 months ago she had acute elevation of Transaminitis - was found to have dilated bile duct- she eventually under went cholecystectomy No reaction to her RTX (05/16- 05/23-05/30, 06/06) She is down to 5 mg of prednisone She got her evusheld - 06/11/2021 Sinuses are okay - no nasal bleeding or crusting No joint pain, no cough, hemoptysis, purpuric skin rash, numbness or tingling sensation Bactrim SS 3 times a week She was transferred to PD given hard vascular access April 21, 2022 No fever, chills, night sweats no recurrent infection Abdominal pain continues on right side No diarrhea, fever Last RTX 500 mg was on 01/09/2022 She is getting dental work up done for her transplant CT chest 01/02/2022 1. No suspicious pulmonary nodule or thoracic lymphadenopathy. No ground-glass or consolidative airspace opacities. 2. Interval cholecystectomy since the prior abdominal CT from 04/11/2021. Pneumobilia is new and is likely postsurgical. 3. The kidneys are small/atrophied compared to the prior abdominal CT from 04/11/2021, likely due to the patient's history of GPA/end-stage renal disease. 4. A few tiny foci of free intraperitoneal gas are probably due to peritoneal dialysis, new compared to the prior exam. July 27, 2022 She remains on AZA 100 mg - no side effects No active sinus symptoms, no skin rash, numbness, ocular inflammation No recent infection Answers submitted by the patient for this visit: Review of Systems Rheumatology (Submitted on 07/21/2022) Fever : No Recent Unintentional Weight Change: No Eye Pain: No Eye Redness: No Vision Disturbance: No Eye Dryness: No Nose Bleeds: No Sores in your Mouth: No Trouble Swallowing: No Dry Mouth: No Chest Pain: No Leg Swelling: No A Cough: No Shortness of Breath: No Pain with Breathing: No Heartburn: No Abdominal Pain: No Diarrhea: No Black Tarry Stools: No Blood in Urine: No Pain or Burning with Urination: No Joint Pain or Stiffness: No Muscle Weakness: No Muscle Aches: No Joint Swelling: No Morning Stiffness in Joints: No A Rash: No Skin Color Changes: No Hair Loss: No Nail Changes: No Headaches: No Numbness: No Memory Loss: No Swollen Glands: No PAST MEDICAL HISTORY: None PAST SURGICAL HISTORY: 2 csection CURRENT MEDICATIONS: Current Outpatient Medications Medication Sig azaTHIOprine (IMURAN) 50 mg tablet Take 2 tablets by mouth once daily. sulfamethoxazole-trimethoprim (BACTRIM) 400-80 mg per tablet Take 1 tablet by mouth three times a week. Take one tablet on days not getting dialysis predniSONE (DELTASONE) 2.5 mg tablet Take 1 tablet by mouth once daily. DIALYVITE 100-1 mg tab Take 1 tablet by mouth once daily. amLODIPine (NORVASC) 2.5 mg tablet Take 5 mg by mouth once daily. Cholecalciferol, Vitamin D3, 50 mcg (2,000 unit) cap Take 3,000 Units by mouth once daily. calcitriol (ROCALTROL) 0.5 mcg capsule Take 0.5 mcg by mouth two times a week. gentamicin 0.1% 0.1 % cream Apply to affected area as needed. cephALEXin (KEFLEX) 500 mg capsule Take 500 mg by mouth as needed. sevelamer carbonate (RENVELA) 800 mg tablet Sevelamer Carbonate Active 1600 MG PO 3 times per day with meals August 19, 2021 1:41pm carvedilol (COREG) 12.5 mg tablet polyethylene glycol 3350 (MIRALAX, GLYCOLAX) 17 gram/dose powder Take by mouth once daily. Dissolve dose in 4 - 8 ounces of liquid and take as directed. Current Facility-Administered Medications Medication Dose Route Frequency perflutren lipid microspheres 1.3 mL in NaCl (PF) 0.9% 10 mL injection (DEFINITY) INTRAVENOUS DIRECTED PRN sodium chloride 0.9 % (flush) 10 mL (BD POSIFLUSH) 10 mL INTRAVENOUS DIRECTED PRN ALLERGIES: Patient has no known allergies. 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 She was pulses on steroid then transitioned to oral 60 mg on 04/19 until present. Her local etched circuit processor is working on getting her RTX approved On exam she has clear saddle nose deformity with extensive bloody crusting in right nostril - unable to visualize if there is any nasal septum perforation or not We discussed treatment, prognosis and overall management with her and her Recently she was noted to have a drop in her hemoglobin (13 to 10) post cholecystectomy - no hemoptysis She received 4 infusions of RTX ( 05/16- 05/23-05/30, 06/06/2021) for induction therapy Last manifence dose was on 01/03/2022 500 mg then was switched to AZA 100 mg She is down to 2.5 mg of prednisone She was seen by ENT - no signs of subglottic stenosis She is vaccinated against COVID infection DXA scan showed osteopenia T score of -0.3 baseline Immunoglobulins before RTX was normal Disease seems to be in remission. Recommendations - Continue AZA 100 mg per day - stop prednisone to 2.5 mg per day and bactrim - most recent CT chest was normal - leukocytosis resolved - DXA scan was normal I spent a total of 35 minutes on the date of the service which included reviewing chart, interviewing patient, documentation, and placing orders Te Avendaño MD Rheumatology staff July 27, 2022 documented in this encounter [facility] 07-24-2022 Miscellaneous Notes No labs - already done Patient has an appt on 08/03/22. Would you like labs, if so place orders. Hilda Mckeon MA documented in this encounter [facility] 06-11-2022 Miscellaneous Notes Called and spoke to Mita Duarte. Patient explained that she has just had multiple tooth extractions and will be having a cleaning and then cavities filled and at that time she is hopeful that she will have dental clearance. Patient scheduled for June for cleaning. Nurse requested that Mita contact the office with an update once scheduled for filings. Mita verbalized her understanding. Kenny Orozco RN documented in this encounter [facility] 05-11-2022 Instructions Natali Child MD - 05/11/2022 2:50 PM EST Labs 3 months RTC same day documented in this encounter [facility] 05-11-2022 History of Present illness Narrative Images from the original note were not included. 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 She has had chronic leukocytosis which is primarily neutrophilic and most compatible with chronic inflammatory process. This is unlikely to be a primary hematologic abnormality or malignancy. I obtained MPN workup which is negative so far. I would be happy to investigate further with bone marrow bx. if clarification is required prior to transplant, but in the meanwhile, we will follow her conservatively. PLAN: Labs 3 months RTC same day HPI: CASE HISTORY: Reverse Chronological Order 01/03/2022 Maintenance dose Rituxan 01/02/2022 - CT chest - 1. No suspicious pulmonary nodule or thoracic lymphadenopathy. No ground-glass or consolidative airspace opacities. 2. Interval cholecystectomy since the prior abdominal CT from 04/11/2021. Pneumobilia is new and is likely postsurgical. 3. The kidneys are small/atrophied compared to the prior abdominal CT from 04/11/2021, likely due to the patient's history of GPA/end-stage renal disease. 4. A few tiny foci of free intraperitoneal gas are probably due to peritoneal dialysis, new compared to the prior exam. 09/2021 - Transaminitis - acute pancreatitis - underwent cholecystectomy 08/2021 - Started on peritoneal dialysis. 05/16/2021- 06/06/2021) Rituxan weekly x 4 induction 04/18/2021 Kidney biopsy: 26 glomeruli, 21 with crescents and extensive injury. 4 cellula, 17 fibrocellular with ruptured manjarrez 'capsules. 6 with segmental sclerosis and 3 fibrinoid necrosis. One with interlobular artery with fibrinoid necrosis. Neg IF and EM . 04/2021 - Anuric, vomiting - cANCA 1:640. pr3 1319. CRP 22.96 N< 1. SD rate >100. Hep neg. TB NEG. GBM abs neg 04/12/2021 - CT chest: Smooth symmetric bilateral interlobular septal thickening with edema. Tree in bud opacities in right upper lobe Ill defining patchy ground glass opacities in right middle and upper lobes alveolar hemorrhage vs multi focal pneumonia Splenomegaly 11/2020 developed sinus infection Nasal bloody discharge. Nasal crusting - doesn't do any rinses - 3 courses of abx - unresolved.(Z pack and augmentin) Updated Visit, May 11, 2022: Abdominal pain is improving.leucocytosis is stable and is primarily composed of neutrophils. MPN workup to date is negative (BCR-ABL, JAK2 exon 12-16 sequencing), JAK2 V16F mutation is pending. She remains afebrile. 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 Has been referred for increased leukocytosis over the past few months. Is on peritoneal dialysis early August 2021 Is on epo replacement Rituxan finished 01/09/2022May - June had acute panreatitis and cholecystectomy She is scheduled to start Azathioprine in May 2022. REVIEW OF SYSTEMS Per HPI and otherwise negative by full review of organ systems. ECOG PERFORMANCE STATUS: 1 PHYSICAL EXAMINATION: Vitals: BP 148/87 Pulse 102 Temp (Src) 97.5 (Temporal) Resp 16 Ht 5' 0 (1.52m) Wt 193 lb 6.4 oz (87.7kg) SpO2 99% LMP 02/24/2022 BMI 37.77 kg/(m^2). Body surface area is 1.93 meters squared. Exam limited to gross visualization where appropriate due to COVID-19. Gen.: This is an age-appropriate patient in no acute distress. Head: Appears atraumatic with no visible lesions. Eyes: Pupils equally round and reactive to light, extraocular muscles are intact. Neck: Supple. Mouth: Masked. Respiratory: Appears to be respiring comfortably. Neurologic: Nonfocal to gross visualization. Alert and oriented 3. Psychiatric: No evidence of inappropriate anxiety or depression. Skin: Visible areas of skin without rash, lesions, wounds or petechiae. ALLERGIES: ALLERGIES No Known Allergies MEDICATIONS: azaTHIOprine (IMURAN) 50 mg tablet^Take 1 tablet by mouth once daily.^Disp: 30 tablet^Rfl: 0 predniSONE (DELTASONE) 2.5 mg tablet^Take 1 tablet by mouth once daily.^Disp: 90 tablet^Rfl: 0 DIALYVITE 100-1 mg tab^Take 1 tablet by mouth once daily.^Disp: ^Rfl: amLODIPine (NORVASC) 2.5 mg tablet^Take 5 mg by mouth once daily.^Disp: ^Rfl: sulfamethoxazole-trimethoprim (BACTRIM) 400-80 mg per tablet^Take 1 tablet by mouth three times a week. Take one tablet on days not getting dialysis^Disp: 75 tablet^Rfl: 0 Cholecalciferol, Vitamin D3, 50 mcg (2,000 unit) cap^Take 3,000 Units by mouth once daily.^Disp: ^Rfl: calcitriol (ROCALTROL) 0.5 mcg capsule^Take 0.5 mcg by mouth two times a week.^Disp: ^Rfl: gentamicin 0.1% 0.1 % cream^Apply to affected area as needed.^Disp: ^Rfl: cephALEXin (KEFLEX) 500 mg capsule^Take 500 mg by mouth as needed.^Disp: ^Rfl: sevelamer carbonate (RENVELA) 800 mg tablet^Sevelamer Carbonate Active 1600 MG PO 3 times per day with meals August 19, 2021 1:41pm^Disp: ^Rfl: carvedilol (COREG) 12.5 mg tablet^^Disp: ^Rfl: polyethylene glycol 3350 (MIRALAX, GLYCOLAX) 17 gram/dose powder^Take by mouth once daily. 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) History of transfusion PAST SURGICAL HISTORY Procedure Laterality Date SECTION HX TONSILLECTOMY HX Social History Tobacco Use Smoking status: Never Passive exposure: Never Smokeless tobacco: Never Substance Use Topics Alcohol use: Not Currently Drug use: Not Currently FAMILY HISTORY Problem Relation Age of Onset Diabetes Mother Hypertension Mother Hyperlipidemia Father Hypertension Father Diabetes Maternal Grandmother Cancer Paternal Grandmother breast Cancer Paternal Grandfather mouth & throat I spent a total of 30 minutes on the date of the service which included preparing to see the patient, [id number] patient care, completing clinical documentation, obtaining and/or reviewing separately obtained history, performing a medically appropriate examination, counseling and educating the patient/family/caregiver, ordering medications, tests, or procedures, independently interpreting results (not separately reported), communicating results to the patient/family/caregiver, and care coordination (not separately reported). Natali Child MD, CPE Hematology and Oncology Services Provided at: [place], [place] CC: Te Avendaño [address] [facility] [id number] Jeffrey Del Cid MD [address] [facility] [id number] documented in this encounter [facility] 04-27-2022 Instructions Natali Child MD - 04/27/2022 4:01 PM EST Labs drawn today or later this week RTC in 2 weeks to review documented in this encounter [facility] 04-27-2022 History of Present illness Narrative Images from the original note were not included. NAME: Mita Duarte NO.: [id number] DATE OF SERVICE: April 27, 2022 Referring Provider: Te Avendaño MD Consultation requested by Dr. Avendaño for an opinion regarding Ms. Mita Duarte, and my final recommendations will be communicated back to the requesting physician by way of shared medical record or letter via US mail. 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 She has had chronic leukocytosis which is primarily neutrophilic and most compatible with chronic inflammatory process. This is unlikely to be a primary hematologic abnormality or malignancy. I will obtain MPN workup. I would be happy to investigate further if clarification is required prior to transplant, but the meanwhile, we will follow her conservatively. PLAN: Labs drawn today or later this week RTC in 2 weeks to review HPI: CASE HISTORY: Reverse Chronological Order 01/03/2022 Maintenance dose Rituxan 01/02/2022 - CT chest - 1. No suspicious pulmonary nodule or thoracic lymphadenopathy. No ground-glass or consolidative airspace opacities. 2. Interval cholecystectomy since the prior abdominal CT from 04/11/2021. Pneumobilia is new and is likely postsurgical. 3. The kidneys are small/atrophied compared to the prior abdominal CT from 04/11/2021, likely due to the patient's history of GPA/end-stage renal disease. 4. A few tiny foci of free intraperitoneal gas are probably due to peritoneal dialysis, new compared to the prior exam. 09/2021 - Transaminitis - acute pancreatitis - underwent cholecystectomy 08/2021 - Started on peritoneal dialysis. 05/16/2021- 06/06/2021) Rituxan weekly x 4 induction 04/18/2021 Kidney biopsy: 26 glomeruli, 21 with crescents and extensive injury. 4 cellula, 17 fibrocellular with ruptured manjarrez 'capsules. 6 with segmental sclerosis and 3 fibrinoid necrosis. One with interlobular artery with fibrinoid necrosis. Neg IF and EM . 04/2021 - Anuric, vomiting - cANCA 1:640. pr3 1319. CRP 22.96 N< 1. SD rate >100. Hep neg. TB NEG. GBM abs neg 04/12/2021 - CT chest: Smooth symmetric bilateral interlobular septal thickening with edema. Tree in bud opacities in right upper lobe Ill defining patchy ground glass opacities in right middle and upper lobes alveolar hemorrhage vs multi focal pneumonia Splenomegaly 11/2020 developed sinus infection Nasal bloody discharge. Nasal crusting - doesn't do any rinses - 3 courses of abx - unresolved.(Z pack and augmentin) Initial Visit, April 27, 2022: Diagnosed with Ekaterina's 1 year ago in March 2021 Needs dental work done but no infection as of recent dental evaluation. Has been referred for increased leukocytosis over the past few months. Is on peritoneal dialysis early August 2021 Is on epo replacement Rituxan finished 01/09/2022May - June had acute panreatitis and cholecystectomy She is scheduled to start Azathioprine in May 2022. REVIEW OF SYSTEMS Per HPI and otherwise negative by full review of organ systems. ECOG PERFORMANCE STATUS: 1 PHYSICAL EXAMINATION: Vitals: BP 155/96 Pulse 113 Temp (Src) 97.5 (Temporal) Resp 16 Ht 5' 0 (1.52m) Wt 195 lb 3.2 oz (88.5kg) SpO2 100% LMP 02/24/2022 BMI 38.12 kg/(m^2). Body surface area is 1.94 meters squared. Exam limited to gross visualization where appropriate due to COVID-19. Gen.: This is an age-appropriate patient in no acute distress. Head: Appears atraumatic with no visible lesions. Eyes: Pupils equally round and reactive to light, extraocular muscles are intact. Neck: Supple. Mouth: Masked. Respiratory: Appears to be respiring comfortably. Neurologic: Nonfocal to gross visualization. Alert and oriented 3. Psychiatric: No evidence of inappropriate anxiety or depression. Skin: Visible areas of skin without rash, lesions, wounds or petechiae. ALLERGIES: ALLERGIES No Known Allergies MEDICATIONS: predniSONE (DELTASONE) 2.5 mg tablet^Take 1 tablet by mouth once daily.^Disp: 90 tablet^Rfl: 0 DIALYVITE 100-1 mg tab^Take 1 tablet by mouth once daily.^Disp: ^Rfl: amLODIPine (NORVASC) 2.5 mg tablet^Take 5 mg by mouth once daily.^Disp: ^Rfl: sulfamethoxazole-trimethoprim (BACTRIM) 400-80 mg per tablet^Take 1 tablet by mouth three times a week. Take one tablet on days not getting dialysis^Disp: 75 tablet^Rfl: 0 Cholecalciferol, Vitamin D3, 50 mcg (2,000 unit) cap^Take 3,000 Units by mouth once daily.^Disp: ^Rfl: calcitriol (ROCALTROL) 0.5 mcg capsule^Take 0.5 mcg by mouth two times a week.^Disp: ^Rfl: gentamicin 0.1% 0.1 % cream^Apply to affected area as needed.^Disp: ^Rfl: cephALEXin (KEFLEX) 500 mg capsule^Take 500 mg by mouth as needed.^Disp: ^Rfl: sevelamer carbonate (RENVELA) 800 mg tablet^Sevelamer Carbonate Active 1600 MG PO 3 times per day with meals August 19, 2021 1:41pm^Disp: ^Rfl: carvedilol (COREG) 12.5 mg tablet^^Disp: ^Rfl: polyethylene glycol 3350 (MIRALAX, GLYCOLAX) 17 gram/dose powder^Take by mouth once daily. Dissolve dose in 4 - 8 ounces of liquid and take as directed.^Disp: ^Rfl: azaTHIOprine (IMURAN) 50 mg tablet^Take 1 tablet by mouth once daily.^Disp: 30 tablet^Rfl: 0 LABORATORY VALUES: Reviewed and TBD DIAGNOSIS: (M31.31) 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 with renal involvement (HCC) (primary encounter diagnosis) Plan: CONSULT TO HEMATOLOGY/ONCOLOGY, CBC + DIFF, COMP METABOLIC PANEL, JAK2 V617F CASCADING REFLEX TO CALR, JAK2 EXON 12, MPL, AND CSF3R, FISH FOR BCR/ABL1, IRON + TIBC, FERRITIN BLD, VITAMIN B12 BLOOD, FOLATE SERUM, SED RATE WESTERGREN, JAK2 V617F CASCADING REFLEX TO CALR, JAK2 EXON 12, MPL, AND CSF3R, JAK2 V617F MUTATION BLOOD (J32.9) Chronic sinusitis, unspecified location Plan: CONSULT TO HEMATOLOGY/ONCOLOGY (D72.829) Leukocytosis, unspecified type Plan: CONSULT TO HEMATOLOGY/ONCOLOGY, CBC + DIFF, COMP METABOLIC PANEL, JAK2 V617F CASCADING REFLEX TO CALR, JAK2 EXON 12, MPL, AND CSF3R, FISH FOR BCR/ABL1, IRON + TIBC, FERRITIN BLD, VITAMIN B12 BLOOD, FOLATE SERUM, SED RATE WESTERGREN, JAK2 V617F CASCADING REFLEX TO CALR, JAK2 EXON 12, MPL, AND CSF3R, JAK2 V617F MUTATION BLOOD (D72.825) Bandemia Plan: CBC + DIFF, COMP METABOLIC PANEL, JAK2 V617F CASCADING REFLEX TO CALR, JAK2 EXON 12, MPL, AND CSF3R, FISH FOR BCR/ABL1, JAK2 V617F CASCADING REFLEX TO CALR, JAK2 EXON 12, MPL, AND CSF3R, JAK2 V617F MUTATION BLOOD (D64.9) Anemia, unspecified type Plan: CBC + DIFF, COMP METABOLIC PANEL, JAK2 V617F CASCADING REFLEX TO CALR, JAK2 EXON 12, MPL, AND CSF3R, FISH FOR BCR/ABL1, IRON + TIBC, FERRITIN BLD, VITAMIN B12 BLOOD, FOLATE SERUM, SED RATE WESTERGREN, JAK2 V617F CASCADING REFLEX TO CALR, JAK2 EXON 12, MPL, AND CSF3R 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) History of transfusion PAST SURGICAL HISTORY Procedure Laterality Date SECTION HX TONSILLECTOMY HX Social History Tobacco Use Smoking status: Never Passive exposure: Never Smokeless tobacco: Never Substance Use Topics Alcohol use: Not Currently Drug use: Not Currently FAMILY HISTORY Problem Relation Age of Onset Diabetes Mother Hypertension Mother Hyperlipidemia Father Hypertension Father Diabetes Maternal Grandmother Cancer Paternal Grandmother breast Cancer Paternal Grandfather mouth & throat I spent a total of 60 minutes on the date of the service which included preparing to see the patient, [id number] patient care, completing clinical documentation, obtaining and/or reviewing separately obtained history, performing a medically appropriate examination, counseling and educating the patient/family/caregiver, ordering medications, tests, or procedures, independently interpreting results (not separately reported), communicating results to the patient/family/caregiver, and care coordination (not separately reported). Natali Child MD, CPE Hematology and Oncology Services Provided at: [place], [place] CC: Te Avendaño [address] [facility] [address] Jeffrey Del Cid MD [address] 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 Nasal crusting - doesn't do any rinses Had ear fullness and but no hearing loss No eye symptoms Had cough with clear sputum No oral ulceration or nasal ulceration She had fever for a month - T max for 99 -100.7 No weight loss She had vomiting due to uremia No neuropathy, no skin rash, no joint pain or joint She felt very sick, she went to urgent care x3 times and ER in her city She had horsy voice Her voice was horsey but now improved Then in early she became aneuric for 24 hours and was vomiting a lot. c ANCA 1:640. pr3 1319. CRP 22.96 N< 1. SD rate >100. Hep neg. TB NEG. GBM abs neg Ct chest 04/12/2021 Smooth symmetric bilateral interlobular septal thickening with edema Tree in bud opacities in right upper lobe Ill defining patchy ground glass opacities in right middle and upper lobes alveolar hemorrhage vs multi focal pneumonia Splenomegaly Kidney biopsy 04/18/2021 26 glomeruli, 21 with crescents and extensive injury. 4 cellula, 17 fibrocellular with ruptured manjarrez 'capsules. 6 with segmental sclerosis and 3 fibrinoid necrosis. One with interlobular artery with fibrinoid necrosis. Neg IF and EM . Still on HD 3 times a week TTS Was pulsed with IV steroid then 04/19 since then Takes her prednisone in the morning Not on PJP prophylaxis Breathing is alrgiht - sinuess are better She is vaccinated but not boosted yet No frequent infections Was started hydralazine during her admission as needed for BP >140/90 She has two kids - tubal ligation predniosone had GI upset but controlled with omeprazole Making little bit of urine Interval history December 11, 2021 2 months ago she had acute elevation of Transaminitis - was found to have dilated bile duct- she eventually under went cholecystectomy No reaction to her RTX (05/16- 05/23-05/30, 06/06) She is down to 5 mg of prednisone She got her evusheld - 06/11/2021 Sinuses are okay - no nasal bleeding or crusting No joint pain, no cough, hemoptysis, purpuric skin rash, numbness or tingling sensation Bactrim SS 3 times a week She was transferred to PD given hard vascular access April 21, 2022 No fever, chills, night sweats no recurrent infection Abdominal pain continues on right side No diarrhea, fever Last RTX 500 mg was on 01/09/2022 She is getting dental work up done for her transplant CT chest 01/02/2022 1. No suspicious pulmonary nodule or thoracic lymphadenopathy. No ground-glass or consolidative airspace opacities. 2. Interval cholecystectomy since the prior abdominal CT from 04/11/2021. Pneumobilia is new and is likely postsurgical. 3. The kidneys are small/atrophied compared to the prior abdominal CT from 04/11/2021, likely due to the patient's history of GPA/end-stage renal disease. 4. A few tiny foci of free intraperitoneal gas are probably due to peritoneal dialysis, new compared to the prior exam. Answers submitted by the patient for this visit: Review of Systems Rheumatology (Submitted on 04/20/2022) Fever : No Recent Unintentional Weight Change: No Eye Pain: No Eye Redness: No Vision Disturbance: No Eye Dryness: No Nose Bleeds: No Sores in your Mouth: No Trouble Swallowing: No Dry Mouth: No Chest Pain: No Leg Swelling: No A Cough: No Shortness of Breath: No Pain with Breathing: No Heartburn: No Abdominal Pain: No Diarrhea: No Black Tarry Stools: No Blood in Urine: No Pain or Burning with Urination: No Joint Pain or Stiffness: No Muscle Weakness: No Muscle Aches: Yes Joint Swelling: No Morning Stiffness in Joints: No A Rash: No Skin Color Changes: No Hair Loss: No Nail Changes: No Headaches: No Numbness: No Memory Loss: No Swollen Glands: No PAST MEDICAL HISTORY: None PAST SURGICAL HISTORY: 2 csection CURRENT MEDICATIONS: Current Outpatient Medications Medication Sig DIALYVITE 100-1 mg tab Take 1 tablet by mouth once daily. amLODIPine (NORVASC) 2.5 mg tablet Take 5 mg by mouth once daily. predniSONE (DELTASONE) 5 mg tablet Take 1 tablet by mouth once daily. sulfamethoxazole-trimethoprim (BACTRIM) 400-80 mg per tablet Take 1 tablet by mouth three times a week. Take one tablet on days not getting dialysis Cholecalciferol, Vitamin D3, 50 mcg (2,000 unit) cap Take by mouth once daily. calcitriol (ROCALTROL) 0.5 mcg capsule Take 0.5 mcg by mouth two times a week. gentamicin 0.1% 0.1 % cream Apply to affected area as needed. cephALEXin (KEFLEX) 500 mg capsule Take 500 mg by mouth as needed. sevelamer carbonate (RENVELA) 800 mg tablet Sevelamer Carbonate Active 1600 MG PO 3 times per day with meals August 19, 2021 1:41pm carvedilol (COREG) 12.5 mg tablet polyethylene glycol 3350 (MIRALAX, GLYCOLAX) 17 gram/dose powder Take by mouth once daily. Dissolve dose in 4 - 8 ounces of liquid and take as directed. Current Facility-Administered Medications Medication Dose Route Frequency perflutren lipid microspheres 1.3 mL in NaCl (PF) 0.9% 10 mL injection (DEFINITY) INTRAVENOUS DIRECTED PRN sodium chloride 0.9 % (flush) 10 mL (BD POSIFLUSH) 10 mL INTRAVENOUS DIRECTED PRN ALLERGIES: Patient has no known allergies. 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 She was pulses on steroid then transitioned to oral 60 mg on 04/19 until present. Her local etched circuit processor is working on getting her RTX approved On exam she has clear saddle nose deformity with extensive bloody crusting in right nostril - unable to visualize if there is any nasal septum perforation or not We discussed treatment, prognosis and overall management with her and her Recently she was noted to have a drop in her hemoglobin (13 to 10) post cholecystectomy - no hemoptysis She received 4 infusions of RTX ( 05/16- 05/23-05/30, 06/06/2021) for induction therapy Last manifence dose was on 01/03/2022 500 mg She is down to 5 mg of prednisone Continue bactrim SS 3 times a week for pjp prophylaxis She was seen by ENT - no signs of subglottic stenosis She is vaccinated against COVID infection DXA scan showed osteopenia T score of -0.3 baseline Immunoglobulins before RTX was normal Disease seems to be in remission. Noted that she has been having leukocytosis over past 3 months without clear explanation Recommendations - we will switch to Azathioprine in 05/2022 given that she is undergoing process for renal transplant - will obtain TPMT results - decrease prednisone to 2.5 mg per day - most recent CT chest was normal - we will refer her to hematology for leukocytosis, and GI for abdominal pain - DXA scan was normal I spent a total of 35 minutes on the date of the service which included reviewing chart, interviewing patient, documentation, and placing orders Te Avendaño MD Rheumatology staff April 21, 2022 documented in this encounter [facility] 03-11-2022 History of Present illness Narrative NAME: Mita Duarte [facility] NO: [id number] REFERRING PHYSICIAN: PRESENTING COMPLAINT: follow up HPI: Mita Duarte is a 41 year old female is here on follow up for RUQ discomfort. Pmhx includes ESRD from granulomatosis with polyangiitis, DVT, obesity, choledocholithiasis (s/p ERCP and cholecystectomy spring 2021) Last seen by Nadine Bronson 12/11/21 for education regarding HCV + organ education in relation to her kidney transplant evaluation. Continuing to have intermittent RUQ pain/cramps; severe to the point of having to stop in her tracks Cannot identify anything precipitating or alleviating pain; happens at least 1-2 times week Symptoms had initially started in June post cholecystectomy; she has been seen in the past regarding this pain and RUQ US negative No previous known liver disease Last liver enzymes from 02/20 normal Just received second dose of Hep B vaccine (doing 3 dose series) Will look into getting Hep A vaccine started at local pharmacy if insurance will cover REVIEW OF SYSTEMS GENERAL: No unexplained weight changes or fevers. HEENT: Negative for severe headaches, negative for changes in hearing or vision. NECK: Negative for lumps, masses or pain. RESPIRATORY: Negative for coughing, wheezing or significant dyspnea. CARDIOVASCULAR: Negative for chest pain or heart palpitations. GASTROINTESTINAL: Negative for rectal bleeding or black tarry stools and Positive for abdominal discomfort RUQ, cramping sensation . GENITOURINARY: Negative for dysuria or urinary incontinence. MUSCULOSKELETAL: Negative for unexplained joint pains, dislocations or fractures. NEUROLOGIC: Negative for unexplained weakness or vertigo. SKIN: Negative for new lesions or rashes. ENDOCRINE: Negative for cold or heat intolerance . Current Outpatient Medications Medication Sig Dispense Refill DIALYVITE 100-1 mg tab Take 1 tablet by mouth once daily. amLODIPine (NORVASC) 2.5 mg tablet Take 5 mg by mouth once daily. predniSONE (DELTASONE) 5 mg tablet Take 1 tablet by mouth once daily. 90 tablet 0 sulfamethoxazole-trimethoprim (BACTRIM) 400-80 mg per tablet Take 1 tablet by mouth three times a week. Take one tablet on days not getting dialysis 75 tablet 0 Cholecalciferol, Vitamin D3, 50 mcg (2,000 unit) cap Take by mouth once daily. calcitriol (ROCALTROL) 0.5 mcg capsule Take 0.5 mcg by mouth two times a week. gentamicin 0.1% 0.1 % cream Apply to affected area as needed. cephALEXin (KEFLEX) 500 mg capsule Take 500 mg by mouth as needed. sevelamer carbonate (RENVELA) 800 mg tablet Sevelamer Carbonate Active 1600 MG PO 3 times per day with meals August 19, 2021 1:41pm carvedilol (COREG) 12.5 mg tablet polyethylene glycol 3350 (MIRALAX, GLYCOLAX) 17 gram/dose powder Take by mouth once daily. Dissolve dose in 4 - 8 ounces of liquid and take as directed. Current Facility-Administered Medications Medication Dose Route Frequency Provider Last Rate Last Admin perflutren lipid microspheres 1.3 mL in NaCl (PF) 0.9% 10 mL injection (DEFINITY) INTRAVENOUS DIRECTED PRN Racquel Burgess MD sodium chloride 0.9 % (flush) 10 mL (BD POSIFLUSH) 10 mL INTRAVENOUS DIRECTED PRN Racquel Burgess MD ALLERGIES No Known Allergies Social History Tobacco Use Smoking status: Never Smokeless tobacco: Never Substance Use Topics Alcohol use: Not Currently Drug use: Not Currently 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 Eyes: PERRLA, conjunctiva and sclera normal Oropharynx: covered by mask Lungs:breath sounds clear to auscultation bilaterally, no crackles, rhonchi, or wheezes Heart: regular rate and rhythm, no murmurs or gallops. Abdomen: not distended, normal bowel sounds, soft and depressible, no guarding or rebound, no palpable mass, no organomegaly Extremities: no cyanosis or edema Skin: no jaundice, no spider angiomas, no palmar erythema Neuro:alert, oriented x 3, pleasant and in no acute distress Recent Labs: Hemoglobin (g/dL) Date Value 02/20/2022 13.0 05/01/2021 7.6 Hematocrit (%) Date Value 02/20/2022 38.4 05/01/2021 25.1 WBC (k/uL) Date Value 02/20/2022 17.10 05/01/2021 20.20 Glucose (mg/dL) Date Value 02/20/2022 92 05/01/2021 80 Potassium (mmol/L) Date Value 02/20/2022 3.5 05/27/2021 3.0 05/01/2021 4.0 Sodium (mmol/L) Date Value 02/20/2022 136 05/01/2021 133 Chloride (mmol/L) Date Value 02/20/2022 96 05/01/2021 100 CO2 (mmol/L) Date Value 02/20/2022 26 05/01/2021 19 Creatinine (mg/dL) Date Value 02/20/2022 10.33 05/01/2021 3.34 BUN (mg/dL) Date Value 02/20/2022 72 05/01/2021 17 Anion Gap (mmol/L) Date Value 02/20/2022 14 05/01/2021 14 Calcium (mg/dL) Date Value 05/01/2021 8.4 Calcium, Total (mg/dL) Date Value 02/20/2022 10.0 Albumin (g/dL) Date Value 02/20/2022 4.5 Bilirubin, Total (mg/dL) Date Value 02/20/2022 0.3 Bilirubin, Conjugated (mg/dL) Date Value 07/17/2021 <0.2 Alkaline Phosphatase (U/L) Date Value 02/20/2022 81 AST (U/L) Date Value 02/20/2022 14 ALT (U/L) Date Value 02/20/2022 14 Protein, Total (g/dL) Date Value 02/20/2022 7.0 MELD-Na score: 20 at 11/03/2021 4:21 PM MELD score: 20 at 11/03/2021 4:21 PM Calculated from: Serum Creatinine: On dialysis. Using 4 mg/dL. Serum Sodium: 140 mmol/L (Using max of 137 mmol/L) at 11/03/2021 4:21 PM Total Bilirubin: 0.4 mg/dL (Using min of 1 mg/dL) at 11/03/2021 4:21 PM INR(ratio): 1.0 at 11/03/2021 4:21 PM Age: 41 years Imaging: RUQ US 07/17/21 RESULT: Pancreas: Normal sonographic appearance. Portions obscured: tail Liver: Echotexture: Normal, homogeneous. Echogenicity: Normal Surface contour: Smooth Lesions: None. Biliary: No intrahepatic biliary duct dilation. CBD: 0.4 cm at the hilum. Gallbladder: Prior cholecystectomy. No collection along the gallbladder fossa. Right Kidney: No hydronephrosis. Ascites: None. Assessment IMPRESSION/PLAN Mita Duarte is a 41 year old female who is here on follow up for RUQ pain and discomfort. 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 Symptoms began around June after cholecystectomy, unable to undergo CT scan due to insurance not covering it. Liver enzymes are normal and previous RUQ US shows normal liver and biliary ducts. From a liver perspective, she is stable and requires no further follow up in hepatology. Will refer patient to GI regarding symptoms VIRGIE Reagan APRN.CNP March 11, 2022 10:02 AM documented in this encounter [facility] 02-20-2022 Miscellaneous Notes Informed Mita Duarte that the Kidney/Pancreas Selection Committee approved them to be listed for a kidney transplant. Informed patient that potential donors can begin work-up once placed on the list. Gave them the Living Donor Office online web address and office phone number. Reminded Mita Duarte that if uncomfortable with donor's history, etc, they may say No without penalty. Reviewed choices that were chosen on the KDPI form with patient and updated below as needed. Types of donors patient is willing to consider: Donors that from Cardiac (DCD) Yes Hepatitis C Donors Yes Hepatitis B Core Antibody Donors Yes KDPI score > 85% Yes Discussed monthly serum samples, why they are needed and how to get them drawn. I confirmed all phone numbers with the patient. Additional Information Additional testing needed: Additional consults needed: Special instructions for listing: Pulmonary clearance HBV Vaccine Labs will be drawn at : [facility]. Patient is fully vaccinated against COVID Yes Confirm if patient is on dialysis Yes Discussed with the patient, that they must be fully vaccinated in order to be listed for transplant. Kidney/Pancreas and Pancreas Alone Candidates ONLY KP or [place] Additional Information Insulin Start Date: Amount of Insulin C Peptide level Hgb A1C level: Discussed with the patient who will be the primary coordinator for their case once they are listed: Kathy Post RN [phone]. Patient verbalized understanding of all the information that was discussed. Will move forward with the listing process for kidney transplant. Kenny Orozco RN Pre-Kidney & Pancreas Lands Resource Manager [facility] documented in this encounter [facility] 02-11-2022 History of Present illness Narrative PULM FUNCTION SMARTBLOCK: Provider: Sue Montenegro, Spirometry: 1 System: MC7 - [id number] documented in this encounter [facility] 02-11-2022 History of Present illness Narrative Images from the original note were not included. 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 The patient states that this problem developed in January 2021. She was seen by her local ENT specialist who did not diagnose Ekaterina's with his evaluation. The patient was subsequently seen at [facility] where a biopsy of the kidney in April 2021 confirmed the diagnosis of 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. During that timeframe from January 2021 through April 2021 the patient developed severe leg swelling and shortness of breath which started in March 2021. The patient was started on dialysis in March 2021. Presently managed with infusion of rituximab every 6 months with a good response to therapy. The patient states that when she was first seen at [facility] a small nodule in the lung was noted. I do not have that record but subsequent chest x-rays and CAT scans do not show evidence of a pulmonary nodule. The patient has no history of cardiac disease and CT of the chest echocardiogram and EKG remain normal In addition to the rituximab the patient is also managed with prednisone at 5 mg daily and Bactrim DS Wednesday and Wednesday. The patient spirometry is normal and chest x-ray today are clear. Assessment: Preoperative pulmonary evaluation as part of consideration for planned kidney transplant. The patient has a history of granulomatosis with polyangiitis with renal involvement and end-stage renal failure. From a pulmonary standpoint the patient has a normal spirometry, normal chest x-ray, and normal CT scan of the chest. She is presently managed with rituximab, prednisone 5 mg daily, and Bactrim DS Wednesday and Wednesday. Clinically the patient's granulomatosis with polyangiitis is in remission. She has no obstructive sleep apnea. The patient is an ASA 3 physical status classification. She has adequate lung function to tolerate the planned surgery. Plan follow-up prior to surgery. PRIMARY CARE PHYSICIAN: Jeffrey Del Cid MD CONSULT REQUESTED BY: Racquel Burgess MD. Results will be communicated via letter or electronic record. PMH is also significant for: 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) History of transfusion REVIEW OF OUTSIDE/CCF RECORDS: No textual results found for the specified procedure(s). PULMONARY REVIEW: PULM MEDS: amLODIPine (NORVASC) 2.5 mg tablet^Take 5 mg by mouth once daily.^Disp: ^Rfl: predniSONE (DELTASONE) 5 mg tablet^Take 1 tablet by mouth once daily.^Disp: 90 tablet^Rfl: 0 sulfamethoxazole-trimethoprim (BACTRIM) 400-80 mg per tablet^Take 1 tablet by mouth three times a week. Take one tablet on days not getting dialysis^Disp: 75 tablet^Rfl: 0 Cholecalciferol, Vitamin D3, 50 mcg (2,000 unit) cap^Take by mouth once daily.^Disp: ^Rfl: calcitriol (ROCALTROL) 0.5 mcg capsule^Take 0.5 mcg by mouth three times a week.^Disp: ^Rfl: gentamicin 0.1% 0.1 % cream^Apply to affected area as needed.^Disp: ^Rfl: cephALEXin (KEFLEX) 500 mg capsule^Take 500 mg by mouth as needed.^Disp: ^Rfl: sevelamer carbonate (RENVELA) 800 mg tablet^Sevelamer Carbonate Active 1600 MG PO 3 times per day with meals August 19, 2021 1:41pm^Disp: ^Rfl: carvedilol (COREG) 12.5 mg tablet^^Disp: ^Rfl: predniSONE (DELTASONE) 2.5 mg tablet^Take 1 tablet by mouth once daily.^Disp: 90 tablet^Rfl: 0 (Patient not taking: No sig reported) sevelamer (RENAGEL) 800 mg tablet^Take 2 tablets by mouth three times daily with meals.^Disp: 180 tablet^Rfl: 0 polyethylene glycol 3350 (MIRALAX, GLYCOLAX) 17 gram/dose powder^Take by mouth once daily. Dissolve dose in 4 - 8 ounces of liquid and take as directed.^Disp: ^Rfl: B Complex-Vitamin C-Folic Acid (DIALYVITE 800) 0.8 mg tab^Take 0.8 mg by mouth once daily.^Disp: ^Rfl: ALLERGIES: ALLERGIES No Known Allergies OCCUP EXPOSURE: No TB EXPOSURE: No REVIEW OF OTHER SYSTEMS: Granulomatosis and angiitis ( [place] ) Preventive Medicine: Up to date with health screenings- Covid infection September 2020 non hospitalized treated with monoclonal antibody 2 vaccines. Has flu vaccines prevnar 13 Hepatitis B pending GEN :No fever, chills or sweats. No fatigue Wt. stable. Wt 180 ht 5 ft 1 in NEURO :Denies syncope, HASSAN. No seizures. No numbness or tingling EYES :No h/o uveitis, glaucoma, cataracts. Denies diplopia ENT :Denies sinusitis, rhinitis, post nasal drip or oral concerns. GI: Denies BM changes. No h/o ulcers, dysphagia or heartburn ENDO :Denies thyroid disease or DM CARD : :No hematuria, kidney disease or bladder concerns DERM :Denies skin rash, flushing, or lesions MSK :Negative for swelling, joint pain HAMLET :Denies bruising, blood clots or swollen nodes EXT: Denies pedal edema, DVT PSYCH: Denies sleep disturbance or mood disorder Health Risks: Ms. Duarte is not having pain related to the reason for this visit. SOCIAL HISTORY Tobacco Use: Never PAST SURGICAL HISTORY Procedure Laterality Date SECTION HX TONSILLECTOMY HX FAMILY HISTORY Problem Relation Age of Onset Diabetes Mother Hypertension Mother Hyperlipidemia Father Hypertension Father Diabetes Maternal Grandmother Cancer Paternal Grandmother breast Cancer Paternal Grandfather mouth & throat PHYSICAL EXAMINATION: LMP 06/20/2021 GENERAL APPEARANCE: well appearing, alert, in no acute distress, well-hydrated, well nourished INTEGUMENT: skin color, texture, turgor normal, no suspicious rashes or lesions EYES: Anicteric sclera. Pupils are equally round and reactive to light, and extraocular movements are intact. ENT Head: normal Ears: external ears normal, canals clear, TM's normal Nose/Sinuses: negative Mouth: lips, mucosa, and teeth normal. Tongue,oropharynx normal RESPRATORY: lungs clear to auscultation, no wheezing, rales, or rhonchi, Thorax is symmetric with no evidence of paradoxical respiration. BREAST EXAM DEFERRED. No axillary lymphadenopathy. Neck is supple, with normal size, and no thyroid enlargement or mass. CARDIAC: RRR without murmur, gallop, or rubs. No ectopy Peripheral vascular: normal pulses and symmetric in upper and lower extremities. No venous iinsufficiency GASTROENTEROLOGYI: Abdomen soft, non-tender. Bowel sounds normal. No masses, organomegaly EXTREMITIES: No deformities, pedal edema, or skin discoloration. Good capillary refill. MUSCULOSKELETAL; Spine range of motion normal. Muscular strength intact GENITOURINARY: prostate exam deferred, No CVA tenderness NEURO: Gait normal. Motor appears normal. Sensation grossly intact, reflexes are brisk and symmetric HEMATOLOGIC/LYMPHATIC/ IMMUNOLOGIC: No evidence of a supra-clavicular, infra-clavicular, or femoral lymphadenopathy. No ecchymosis. PSYCHIATRIC: Mentation and affect normal. Oriented x 3 ASSESSMENT: Z01.818 Pre-transplant evaluation for kidney transplant (primary encounter diagnosis) M31.31 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) N18.6 End stage renal disease (HCC) Z99.2 Peritoneal dialysis status ([facility]) DR SUE MONTENEGRO 02/11/2022 10:33 AM documented in this encounter [facility] 01-08-2022 History of Present illness Narrative Social Supports: Patients and patients dad. Financial Concerns: [place] Medicaid. The patient started receiving disability about a month ago. The patient lives 1 [place]/2 hours away from and states post transplant she would stay in the area for a few days if needed. Compliance: The patient shows good compliance through PD. Mental Health: Stable Substance Use: Denies SIPAT: 12 At this time, Mita Duarte appears to be a suitable psychosocial candidate for a kidney transplant. EVGENY Nj, DIAL PAINTER, [facility] Transplant Healthcare Facility Administrator documented in this encounter [facility] 01-02-2022 History of Present illness Narrative Radiology Service Progress Note PATIENT NAME: Mita Duarte DATE OF SERVICE: January 02, 2022 TIME: 1:16 PM PATIENT IDENTITY VERIFICATION COMPLETED USING TWO (2) IDENTIFIERS: Name and Date of confirmed by patient verbally. FALL SCREENING: Has the patient had 2 falls in the last year or 1 fall with injury or currently using an Ambulatory Assistive Device (Walker, Cane, Wheelchair, Crutches, etc.)? No PATIENT GENDER DATA: Female. status: : No status: NO. PATIENT RELEVANT IMPLANT DATA REVIEWED: Not Applicable RADIOLOGY DEPARTMENT: CT; Exam(s) Completed: Chest PERIPHERAL IV DATA: Not applicable SIGNED BY: GILMA Stringer January 02, 2022 1:16 PM documented in this encounter [facility] 12-25-2021 History of Present illness Narrative RADIOLOGY SERVICE PROGRESS NOTE SERVICE DATE: 12/25/2021 SERVICE TIME: 12:03 PM PATIENT IDENTITY VERIFICATION COMPLETED USING TWO (2) STANDARD IDENTIFIERS: Name and Date of confirmed by patient verbally FALL SCREENING: Has the patient had 2 falls in the last year or 1 fall with injury or currently using an Ambulatory Assistive Device (Walker, Cane, Wheelchair, Crutches, etc.)? No PATIENT GENDER DATA: .female : No ALLERGIES: Reviewed and unchanged MEDICATIONS REVIEWED: No PATIENT RELEVANT IMPLANT DATA REVIEWED: Not Applicable CREATININE: Creatinine Date Value Ref Range Status 12/11/2021 11.25 (H) 0.58 - 0.96 mg/dL Final 11/03/2021 13.03 (H) 0.58 - 0.96 mg/dL Final 10/17/2021 12.79 (H) 0.58 - 0.96 mg/dL Final Estimated Glomerular Filtration Rate Date Value Ref Range Status 12/11/2021 4 (L) >=60 mL/min/1.73m Final Comment: Estimated Glomerular Filtration Rate (eGFR) is calculated using the 2020 CKD-EPI creatinine equation. This equation utilizes serum creatinine, sex, and age as parameters. The creatinine assay has traceable calibration to isotope dilution-mass spectrometry. Refer to KDIGO guidelines for clinical interpretation. In patients with unstable renal function, e.g. those with acute kidney injury, the eGFR may not accurately reflect actual GFR. eGFR- Date Value Ref Range Status 05/01/2021 19 Final P.O.C.T. RESULTS: N/A December 25, [address] PERFORMED: No IV SITE: Ambulatory: A peripheral IV was started in the Left antecubital site with a Angio cath: 22 gauge. POST EXAM PIV STATUS: Discontinued PROCEDURE TYPE: NM Stress: 12.7mCi [id number] was administered IV for Rest Imaging at 1157 by Kacey DE LA FUENTE. 33.2 mCi [id number] was administered IV for Stress Imaging at 1308 by Kimberly Dinero [employer]. ADMINISTRATION TIME: PATIENT DISCHARGED TO: Ambulatory patient, left PR department area. A Diagnostic radioactive procedure has taken place, with no further precautions necessary other than routine body substance precautions. More information regarding radiation safety can be found using this link: [email or web address] SIGNATURE: Sergo Maciel PATIENT NAME: Mita Duarte DATE: December 25, 2021 TIME: 12:03 PM PAGER/CONTACT #: documented in this encounter [facility] 12-11-2021 History of Present illness Narrative Hepatology Clinic New Consult (telemedicine) Patient provided permission to do this visit virtually Date of visit: 12/11/21 CC: HCV JENNIFER+ organ education HPI: Mita Duarte is a 41 year old woman with a medical history of 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 I initially met the patient when she was hospitalized in June 2021 for markedly abnormal liver tests. Eventually found to have choledocholithiasis and numerous gallstones within the gallbladder. Underwent ERCP with sphincterotomy and clearance of CBD, liver tests remained persistently elevated after ERCP thus prompting inpatient cholecystectomy before discharge. From a liver standpoint, she has done well and only had abnormal liver tests in the context of this illness. She is now undergoing kidney transplant evaluation. Has a potential living donor who might be a good match for her. She is interested in receiving hepatitis C positive organ in the event that her living donor does not work out, paired exchange does not work out, when she needs to be considered for donor kidney transplantation. Review of Systems: Constitutional: No fevers, chills, nightsweats, unintended weight loss HEENT: Denies frequent or severe heaches, nasal congestion/sinus symptoms, difficulty swallowing Eyes: No diplopia or blurry vision; no conjunctival icterus, no eye pain Integumentary: No jaundice, telangiectasias, palmar erythema, lesions/rashes Cardiovascular: No chest pain, dyspnea, palpitations, orthopnea, lower extremity swelling Pulmonary: No dyspnea, cough, wheezing Gastrointestinal: see note Genitourinary: No dysuria, gross hematuria or pyuria. Neurologic: No confusion, altered mental status, difficulty with balance, dizziness Musculoskeletal: No new joint pain, swelling, or erythema Psychiatric: No depressed mood, anxiety, irritability Past Medical History: 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) History of transfusion Past Surgical History: PAST SURGICAL HISTORY Procedure Laterality Date SECTION HX TONSILLECTOMY HX Family History: FAMILY HISTORY Problem Relation Age of Onset Diabetes Mother Hypertension Mother Hyperlipidemia Father Hypertension Father Diabetes Maternal Grandmother Cancer Paternal Grandmother breast Cancer Paternal Grandfather mouth & throat Social History: Tobacco: denies EtOH: denies Drugs: denies I have confirmed and edited as necessary, the PFSH and ROS obtained by others. Outpatient medications: Current Outpatient Medications on File Prior to Visit Medication Sig amLODIPine (NORVASC) 2.5 mg tablet Take 5 mg by mouth once daily. predniSONE (DELTASONE) 5 mg tablet Take 1 tablet by mouth once daily. sulfamethoxazole-trimethoprim (BACTRIM) 400-80 mg per tablet Take 1 tablet by mouth three times a week. Take one tablet on days not getting dialysis Cholecalciferol, Vitamin D3, 50 mcg (2,000 unit) cap Take by mouth once daily. calcitriol (ROCALTROL) 0.5 mcg capsule Take 0.5 mcg by mouth three times a week. gentamicin 0.1% 0.1 % cream Apply to affected area as needed. cephALEXin (KEFLEX) 500 mg capsule Take 500 mg by mouth as needed. sevelamer carbonate (RENVELA) 800 mg tablet Sevelamer Carbonate Active 1600 MG PO 3 times per day with meals August 19, 2021 1:41pm carvedilol (COREG) 12.5 mg tablet predniSONE (DELTASONE) 2.5 mg tablet Take 1 tablet by mouth once daily. (Patient not taking: No sig reported) sevelamer (RENAGEL) 800 mg tablet Take 2 tablets by mouth three times daily with meals. polyethylene glycol 3350 (MIRALAX, GLYCOLAX) 17 gram/dose powder Take by mouth once daily. Dissolve dose in 4 - 8 ounces of liquid and take as directed. B Complex-Vitamin C-Folic Acid (DIALYVITE 800) 0.8 mg tab Take 0.8 mg by mouth once daily. 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 Patient would like to be considered as a potential hepatitis C positive organ recipient. No known history of liver disease and appropriate labs and imaging have been obtained and reviewed. If patient were to receive a hepatitis C positive organ, please contact inpatient hepatology team to arrange for expedited treatment and outpatient hepatology follow-up (can follow with me in clinic) RTC: prn I spent a total of 45 minutes on the date of the service which included preparing to see the patient, [id number] patient care, completing clinical documentation, obtaining and/or reviewing separately obtained history, performing a medically appropriate examination, counseling and educating the patient/family/caregiver, and ordering medications, tests, or procedures. 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 Nasal crusting - doesn't do any rinses Had ear fullness and but no hearing loss No eye symptoms Had cough with clear sputum No oral ulceration or nasal ulceration She had fever for a month - T max for 99 -100.7 No weight loss She had vomiting due to uremia No neuropathy, no skin rash, no joint pain or joint She felt very sick, she went to urgent care x3 times and ER in her city She had horsy voice Her voice was horsey but now improved Then in early she became aneuric for 24 hours and was vomiting a lot. c ANCA 1:640. pr3 1319. CRP 22.96 N< 1. SD rate >100. Hep neg. TB NEG. GBM abs neg Ct chest 04/12/2021 Smooth symmetric bilateral interlobular septal thickening with edema Tree in bud opacities in right upper lobe Ill defining patchy ground glass opacities in right middle and upper lobes alveolar hemorrhage vs multi focal pneumonia Splenomegaly Kidney biopsy 04/18/2021 26 glomeruli, 21 with crescents and extensive injury. 4 cellula, 17 fibrocellular with ruptured manjarrez 'capsules. 6 with segmental sclerosis and 3 fibrinoid necrosis. One with interlobular artery with fibrinoid necrosis. Neg IF and EM . Still on HD 3 times a week TTS Was pulsed with IV steroid then 04/19 since then Takes her prednisone in the morning Not on PJP prophylaxis Breathing is alrgiht - sinuess are better She is vaccinated but not boosted yet No frequent infections Was started hydralazine during her admission as needed for BP >140/90 She has two kids - tubal ligation predniosone had GI upset but controlled with omeprazole Making little bit of urine Interval history December 11, 2021 2 months ago she had acute elevation of Transaminitis - was found to have dilated bile duct- she eventually under went cholecystectomy No reaction to her RTX (05/16- 05/23-05/30, 06/06) She is down to 5 mg of prednisone She got her evusheld - 06/11/2021 Sinuses are okay - no nasal bleeding or crusting No joint pain, no cough, hemoptysis, purpuric skin rash, numbness or tingling sensation Bactrim SS 3 times a week She was transferred to PD given hard vascular access No fever, chills, night sweats no recurrent infection Answers submitted by the patient for this visit: Review of Systems Rheumatology (Submitted on 12/09/2021) Fever : No Recent Unintentional Weight Change: No Eye Pain: No Eye Redness: No Vision Disturbance: No Eye Dryness: No Nose Bleeds: No Sores in your Mouth: No Trouble Swallowing: No Dry Mouth: No Chest Pain: No Leg Swelling: No A Cough: No Shortness of Breath: No Pain with Breathing: No Heartburn: No Abdominal Pain: Yes Diarrhea: No Black Tar[place] Stools: No Blood in Urine: No Pain or Burning with Urination: No Joint Pain or Stiffness: No Muscle Weakness: No Muscle Aches: No Joint Swelling: No Morning Stiffness in Joints: No A Rash: No Skin Color Changes: No Hair Loss: Yes Nail Changes: No Headaches: No Numbness: No Memory Loss: No Swollen Glands: No PAST MEDICAL HISTORY: None PAST SURGICAL HISTORY: 2 csection CURRENT MEDICATIONS: Current Outpatient Medications Medication Sig Cholecalciferol, Vitamin D3, 50 mcg (2,000 unit) cap Take by mouth once daily. calcitriol (ROCALTROL) 0.5 mcg capsule Take 0.5 mcg by mouth three times a week. gentamicin 0.1% 0.1 % cream Apply to affected area as needed. cephALEXin (KEFLEX) 500 mg capsule Take 500 mg by mouth as needed. sevelamer carbonate (RENVELA) 800 mg tablet Sevelamer Carbonate Active 1600 MG PO 3 times per day with meals August 19, 2021 1:41pm carvedilol (COREG) 12.5 mg tablet sulfamethoxazole-trimethoprim (BACTRIM,SEPTRA) 400-80 mg per tablet Sulfamethoxazole-Trimethoprim Active 1 TAB PO every Wednesday, Wednesday, and Thursday August 19, 2021 1:47pm predniSONE (DELTASONE) 5 mg tablet Take 1 tablet by mouth once daily. predniSONE (DELTASONE) 2.5 mg tablet Take 1 tablet by mouth once daily. (Patient not taking: No sig reported) sevelamer (RENAGEL) 800 mg tablet Take 2 tablets by mouth three times daily with meals. polyethylene glycol 3350 (MIRALAX, GLYCOLAX) 17 gram/dose powder Take by mouth once daily. Dissolve dose in 4 - 8 ounces of liquid and take as directed. B Complex-Vitamin C-Folic Acid (DIALYVITE 800) 0.8 mg tab Take 0.8 mg by mouth once daily. Current Facility-Administered Medications Medication Dose Route Frequency perflutren lipid microspheres 1.3 mL in NaCl (PF) 0.9% 10 mL injection (DEFINITY) INTRAVENOUS DIRECTED PRN sodium chloride 0.9 % (flush) 10 mL (BD POSIFLUSH) 10 mL INTRAVENOUS DIRECTED PRN ALLERGIES: Patient has no known allergies. 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 No nasal crusting or bleeding. No sinus tenderness LUNGS: on RA.clear. 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 She was pulses on steroid then transitioned to oral 60 mg on 04/19 until present. Her local etched circuit processor is working on getting her RTX approved On exam she has clear saddle nose deformity with extensive bloody crusting in right nostril - unable to visualize if there is any nasal septum perforation or not We discussed treatment, prognosis and overall management with her and her Recently she was noted to have a drop in her hemoglobin (13 to 10) post cholecystectomy - no hemoptysis She received 4 infusions of RTX so far ( 05/16- 05/23-05/30, 06/06/2021) She is down to 5 mg of prednisone Continue bactrim SS 3 times a week for pjp prophylaxis Patient received Evusheld in 05/2021 She was seen by ENT - no signs of subglottic stenosis She is vaccinated against COVID infection DXA scan showed osteopenia T score of -0.3 Nasal cream and sinus rinses baseline Immunoglobulins before RTX was normal RTX was denied by her insurance we will resubmit it again For now continue prednisone 5 mg per day Repeat CT chest in 11/2021 I spent a total of 35 minutes on the date of the service which included reviewing chart, interviewing patient, documentation, and placing orders Te Avendaño MD Rheumatology staff December 11, 2021 documented in this encounter [facility] 11-03-2021 History and physical note [facility] Transplant Evaluation CC: Patient is a 41 year old female here for transplant candidacy evaluation. Reason for visit: here for evaluation to be a Kidney Transplant recipient. Referred by: Delma Osorio MD [address] [facility] [address] I will communicate with the referring provider by letter and/or shared electronic medical record. HPI: 41 yo pleasant lady here for ktxp evaluation. ESRD sec [facility] bx proven. Attempting to multilist. Open referral at [facility] started. Chronic hemo dialysis effective July 2021 started PD in September 2021. Hx Anemia, HTN, DVT, blood transfusion, tonsillectomy, caesarian surgery, lung nodules, osteomalacia, obesity, PTH, Hemo dialysis started in July 2021 Started PD in September 2021 DVT superficial in rhiannon LE (no anticoagulation) LD possible (family) SAB 1 Recent cholecystectomy Blood transfusion x 7 GPA (+cANCA, Pr3) UOP 500cc per day PAOD (TIA non-embolic, CVA non-embolic, amputation, carotid artery stenosis, abnormal PVRs, claudication history, decreased pulses, etc.):No Stroke: NO Claudication: NO Carotid Artery Stenosis: NO Malignancy (including skin cancer): No Hypercoagulable (history of DVT/PE, miscarriages, prior use of anticoagulation, etc.):history of superficial clots- not on anticoagulation, miscarriage x 1. 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 calcitriol (ROCALTROL) 0.5 mcg capsule Take 0.5 mcg by mouth three times a week. gentamicin 0.1% 0.1 % cream Apply to affected area as needed. cephALEXin (KEFLEX) 500 mg capsule Take 500 mg by mouth as needed. sevelamer carbonate (RENVELA) 800 mg tablet Sevelamer Carbonate Active 1600 MG PO 3 times per day with meals August 19, 2021 1:41pm carvedilol (COREG) 12.5 mg tablet sulfamethoxazole-trimethoprim (BACTRIM,SEPTRA) 400-80 mg per tablet Sulfamethoxazole-Trimethoprim Active 1 TAB PO every Wednesday, Wednesday, and Thursday August 19, 2021 1:47pm predniSONE (DELTASONE) 5 mg tablet Take 1 tablet by mouth once daily. polyethylene glycol 3350 (MIRALAX, GLYCOLAX) 17 gram/dose powder Take by mouth once daily. Dissolve dose in 4 - 8 ounces of liquid and take as directed. B Complex-Vitamin C-Folic Acid (DIALYVITE 800) 0.8 mg tab Take 0.8 mg by mouth once daily. predniSONE (DELTASONE) 2.5 mg tablet Take 1 tablet by mouth once daily. (Patient not taking: No sig reported) sevelamer (RENAGEL) 800 mg tablet Take 2 tablets by mouth three times daily with meals. No current facility-administered medications for this visit. 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 4 cellula, 17 fibrocellular with ruptured manajrrez 'capsules. 6 with segmental sclerosis and 3 fibrinoid necrosis. One with interlobular artery with fibrinoid necrosis. Neg IF and EM . PAP Test: scheduled for wed[facility] at [facility] Mammogram: Not applicable Colonoscopy: Not applicable Sensitizations: Prior transplant: No Blood transfusions: Yes : Yes Immunizations: HBV series: Received, date 07/10/2021 , 06/12/2021 Pneumovax: Received, date Apr 2021 Influenza vaccine: Received, date Apr 2021 Covid vaccine: Received, date 07/02/2020 , 06/09/2020 Kenny Orozco RN Staff: I have interviewed the patient and confirmed the historical details above. REVIEW OF SYSTEMS: GENERAL: No weight loss, malaise or fevers HEENT: Negative for frequent or significant headaches, No changes in hearing or vision, no nose bleeds or other nasal problems RESPIRATORY: Negative for cough, hemoptysis, wheezing, COPD, dyspnea or shortness of breath CARDIOVASCULAR: Negative for chest pain, leg swelling, hypertension, CHF or palpitations GI: No nausea, vomiting, or diarrhea : No history of dysuria, frequency or incontinence ALGEBRAIST: Negative for abnormal vaginal bleeding, abnormal vaginal discharge SKIN: Negative for lesions, rash, and itching HEMATOLOGY/LYMPHOLOGY: Negative for prolonged bleeding, bruising easily or swollen nodes ENDOCRINE: Negative for cold or heat intolerance, polyuria, polydipsia and goiter NEURO: No history of headaches, syncope, paralysis, seizures or tremors All other reviewed and negative other than HPI. ID: no active infections Hepatitis: No Malignancy (including skin cancer): No PAOD (TIA non-embolic, CVA non-embolic, amputation, carotid artery stenosis, abnormal PVRs, claudication history, decreased pulses, etc.):No Hypercoagulable (history of DVT/PE, miscarriages, prior use of anticoagulation, etc.):superficial clots not anticoagulated Functional capacity: >4.0, <8.0 moderate effort such as carrying 15lb KARNOFSKY INDEX SCALE (Adult patients aged 18 and older) - Used to rate a patient's functional status before and after a medical procedure: 90 - Able to carry on normal activity: minor signs or symptoms of disease. PHYSICAL EXAMINATION: BP 157/88 (BP Site: Left Arm, BP Position: Sitting, BP Cuff Size: Regular Adult) Pulse 81 Temp 36.5 C (97.7 F) (Temporal) Ht 152.4 cm (5') Wt 79.2 kg (174 lb 11.2 oz) LMP 06/20/2021 SpO2 100% BMI 34.12 kg/m Body mass index is 34.12 kg/m . Gen: awake, alert, interactive Neck: supple, no LAD HEENT: no oral lesions, dentition intact CV: reg, no mrg Lungs: clear bilaterally Abd: PD cath in LLQ- secured and benign, BS present, non tender Ext: warm, dry, no LE edema Skin: no rashes or lesions Neuro: grossly intact, no deficits Labs/Studies: pending routine transplant labs Impression: 41 year old female with ESKD from [facility]- initially manifested as rhinosinusitis and epistaxis. 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 Now on PD. Very functional. Presented with for evaluation of candidacy for transplantation. 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 Overall, acceptable transplant candidate pending work up below. Potential living kidney donor (sister). Has h/o COVID 1 month ago- not hospitalized, rec'd monoclonal ab at that time. Plans to get another booster in Dec 2021 (3 mo post ab). We had the opportunity to discuss the following, specific for this patient: Risks and benefits of transplantation including overall average increase in life expectancy and higher quality of life with transplantation for most recipients; Types of donor organs discussed with patient, including Living donor (if appropriate), , expanded criteria, donor cardiac (DCD) and CDC-High risk donor types, with relative benefit of living donation over donor transplantation explained. Exploration of potential donors done with patient; Lengthy discussion regarding Immunosuppression following transplantation. I explained our usual protocols, drugs involved, administration and monitoring. This included the risks of infection, possibly life threatening, and malignancy; Patient expresses understanding of the information discussed. Given her current issues, we plan: 1. Pap testing 2. Needs mammogram when 42 yo 3. Cardiac testing including TTE and stress 4. CT ab/pelvis 5. Pulmonary evaluation given CT chest findings 6. Communication with rheumatology to determine that vasculitis is well controlled 7. Dental exam and drug screening per her insurance coverage Cancer Screening: Type of Cancer: Screening Criteria: Cervical Females age 21-29: PAP Q3yrs; HPV if PAP abnormal Females age 30-65: PAP & HPV Q5yrs; OR PAP only Q3yrs Breast Females age 20-39: Clinical Breast Exam Q3yrs Females age 40+: Mammogram & Clinical Breast Exam Q1yr Prostate Males age 40+: PSA will be checked at evaluation Colon All patients age 50+: colonoscopy Q10yrs or as recommended based on results Lung Patients meeting all of the following criteria will be scheduled for a Chest CT without Contrast at evaluation if they have not had a Chest CT within the past year: 1. Age 55-74 2. Have at least a 30 pack-year smoking history 3. Are still smoking OR have quit smoking within the last 15 yrs Patients that do not meet the criteria above or who had a Chest CT within the past year will have a CXR PA & Lat at evaluation. Skin All patients: Skin will be examined at evaluation Pharmacy Consult: Not needed at this time Opportunity to ask questions given. Appears to understand. Communication with referring provider done by letter. Racquel Burgess MD documented in this encounter [facility] 11-03-2021 History of Present illness Narrative PSYCHOSOCIAL EVALUATION FOR KIDNEY TRANSPLANT Social Supports: Patients and patients dad. Financial Concerns: [place]. The patient started receiving disability about a month ago. The patient lives 1 [place]/2 hours away from and states post transplant she would stay in the area for a few days if needed. Compliance: The patient shows good compliance through PD. Mental Health: Stable Substance Use: Denies SIPAT: 12 REFERRAL: Mita Duarte was referred to Social Work for a psychosocial evaluation to establish if she would be a suitable candidate to receive a kidney transplant. Race/Gender: White, Female [place] Citizen: Yes DIALYSIS START DATE: Mar 2021 - recently switched to PD The name of the dialysis unit is [facility]. The phone is [phone] (PD nurse - Cathy). This social work psychosocial evaluation was completed with Mita Duarte on November 03, 2021. She was accompanied by her , Spenser. The pt does not use assistive devices for ambulation. IDENTIFYING INFORMATION/LIVING SITUATION Mita Duarte [phone] [facility] [id number]. [address] [place] a [address] from [facility]. Household members: Patients and two children (ages 10 and 16). There is 1 licensed drivers in the home and 1 working vehicles. The patients is the only licensed tour bus driver/guide in the household - the patient never obtained her drivers license. Patients drove here today for the appointments. Are you aware that all post-transplant appointments will be at [facility]? Yes. How do you plan to come to the [facility] after transplant? The patient plans to have her drive her to post transplant appointments. Caregiver responsibilities: Yes the patients in-laws or patients parents will care for the children during the patients recovery. Pets in the home: 2 dog. Pet precautions reviewed. COMPREHENSION OF MEDICAL SITUATION Mita Duarte reports that her kidney disease is due to [facility] disease . The patient explained she was misdiagnosed five different times since Dec 2020. Then in Mar 2021 she had a hospitalization where she started dialysis. HEALTH Pregancies (females): 3 pregnancies - 1 miscarriage COMPLIANCE Missed doctor appointments: No issues reported. Missed/shortened/rescheduled dialysis appointments: No issues reported. Knowledge of medications: The patient has a good knowledge of her medications and there purpose. Medication Compliance: No issues reported. She uses a pill organizer that she organizes every week. Have you ever stopped taking any medication because you lost your insurance you could not afford it? No Have you stopped taking medication because you felt you didn't need it or because of side-effects? No Dialysis compliance check: 11/06/2021 Transplant child welfare social worker called patients dialysis center and spoke with PD nurseCathy. The patients PD nurse confirmed the patient is compliant with doing her treatments and coming to follow up appointments. The nurse states the patient is able to follow recommendations given to her. Labs reported: phosphorous 7.6 (previous month 6.9 - on a new binder and working with nurse on this) potassium 3.9 albumin 3.9 Potential living donors: Possibly- patients sister SUBSTANCE USE/ABUSE Alcohol: The patient reports she drinks maybe once a year. This has always been her pattern. Tobacco: No Exposure to second hand smoke: No Cocaine, THC, Heroin, or Other Recreational Drug Use: No Over the Counter Medications: No Opioids/Controlled Substances: No LEGAL ENCOUNTERS History of any legal issues: No MENTAL HEALTH HISTORY Affect: Appropriate/Consistent Alert: Alert Orientation: person, place and time Appearance: Unremarkable/appropriate Cognitive Function: Cognition appears relatively intact Mood: Euthymic Are you having thoughts that you would be better off , or of hurting yourself in some way? No Current mental health diagnoses / current feelings of anxiety or depression: Denies any current symptoms of anxiety or depression. Previous mental health diagnoses: No Psychiatric medication: No. Who prescribes: NA Counseling: No Psychiatric services: No History of suicide attempt(s) or ideation: No History of harming self: No History of harming others: No History of psychiatric hospitalization: No Is a referral to Transplant Psychiatry indicated for further evaluation or screening: No EDUCATION Highest Educational Level: Some college Reading/Comprehension Problems Then or Now: No HEALTH INSURANCE/FINANCIAL Medical Insurance: [place] Payer of Insurance: Patient Prescription Coverage: Medicaid Insurance Policy Correa: No Medicare Status: No. ESRD Medicare reviewed. Employment status: Disability ($1400 per month). She started receiving disability a month ago. 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 She stopped working when her health started to decline. Household Income: $40,000 per year (patient and ) Pt was given a list of the medications for Kidney TX recipients to learn how her insurance coverage applies. SW informed pt that she must be prepared to cover the copays of her immunosuppression and anti viral medications. CAREGIVER/SUPPORT PLAN Primary Caregiver: Spenser, patient . He is 43 years old and works for [employer]. Contact Number: [phone] Health Status and Availability of Caregiver: good health, available as needed - can take time off of work Valid [employer] Manager's License/Working Vehicle: Yes, yes Caregiver Substance Use: No Caregiver Mental Health: No Secondary Caregiver: Manuel patients dad. He is 69 years old and retired. Contact Number: [phone] Health Status and Availability: good health, per patient available as needed Valid [employer] Manager's License/Working Vehicle: Yes, yes (would drive to ) Caregiver Substance Use: No Caregiver Mental Health: No The patient states post transplant she would stay in the area for a few days if needed. 11/06/2021 Transplant child welfare social worker received a phone call from the patients dad, Don, and caregiver responsibilities were reviewed. The patients dad confirmed he would be able to support the patient post transplant if needed. He states he is retired and he does have a drivers license/vehicle. PSYCHOSOCIAL RISKS Adherence to Treatment Protocols: Yes Ability to Understand Transplant Center's System of Care: Yes Active Psychiatric Diagnosis: No Financial Resources or Support: Yes Body Image/Scar: No IMPRESSIONS/RECOMMENDATIONS At this time, Mita Duarte appears to be a suitable psychosocial candidate for a kidney transplant. There are no psychosocial concerns that could have a negative impact on the successful and sustained outcome of a kidney transplant. The patient has identified her and her dad as caregivers. The patient has Medicaid [place] for health insurance. She started receiving disability about a month ago. The patient lives 1 1/2 hours away from and states post transplant she would stay in the area for a few days if needed. The patient shows good compliance through PD. There were no mental health or substance use barriers identified. The patient and her appeared focused on the evaluation. The patient should be scheduled for yearly visits and/or phone contact with social work for the following purposes: to review health insurance, changes of caregiver support, changes in financial/employment status, and past or current issues with alcohol or drug use. We reviewed the follow up care sequence, including lab work twice a week and weekly post transplant clinic appointments. We discussed the precautions to take because of being immunosuppressed. Mita Duarte was advised that it is imperative to adhere to the medical regimen and recovery restrictions. Mita Duarte indicated understanding of this information. Mita Duarte had the opportunity to discuss any issues and questions. Patient was given information and brochures about the kidney transplant process and fund raising options. The patient was given the phone number of the transplant child welfare social worker to address future concerns. EVGENY Nj, DIAL PAINTER, CCTSW Transplant Healthcare Facility Administrator documented in this encounter [facility] 11-03-2021 History of Present illness Narrative [facility] at [facility] Transplant Evaluation CC: Patient is a 41 year old female here for transplant candidacy evaluation. Reason for visit: here for evaluation to be a Kidney Transplant recipient. Referred by: Delma Osorio MD [address] [facility] [address] I will communicate with the referring provider by letter and/or shared electronic medical record. HPI: 41 yo pleasant lady here for ktxp evaluation. ESRD sec [facility] bx proven. Attempting to multilist. Open referral at [facility] started. Chronic hemo dialysis effective July 2021 started PD in September 2021. Hx Anemia, HTN, DVT, blood transfusion, tonsillectomy, caesarian surgery, lung nodules, osteomalacia, obesity, PTH, Hemo dialysis started in July 2021 Started PD in September 2021 DVT superficial in rhiannon LE (no anticoagulation) LD possible (family) SAB 1 Recent cholecystectomy Blood transfusion x 7 GPA (+cANCA, Pr3) UOP 500cc per day PAOD (TIA non-embolic, CVA non-embolic, amputation, carotid artery stenosis, abnormal PVRs, claudication history, decreased pulses, etc.):No Stroke: NO Claudication: NO Carotid Artery Stenosis: NO Malignancy (including skin cancer): No Hypercoagulable (history of DVT/PE, miscarriages, prior use of anticoagulation, etc.):No Prior transplant: No CKD: Yes: Cause of CKD: [facility] Hemodialysis, Start date: March 2021 then changed to PD in September 2021 Living Donors: Yes Residual UO: 500 DM: No 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 calcitriol (ROCALTROL) 0.5 mcg capsule Take 0.5 mcg by mouth three times a week. gentamicin 0.1% 0.1 % cream Apply to affected area as needed. cephALEXin (KEFLEX) 500 mg capsule Take 500 mg by mouth as needed. sevelamer carbonate (RENVELA) 800 mg tablet Sevelamer Carbonate Active 1600 MG PO 3 times per day with meals August 19, 2021 1:41pm carvedilol (COREG) 12.5 mg tablet sulfamethoxazole-trimethoprim (BACTRIM,SEPTRA) 400-80 mg per tablet Sulfamethoxazole-Trimethoprim Active 1 TAB PO every Wednesday, Wednesday, and Thursday August 19, 2021 1:47pm predniSONE (DELTASONE) 5 mg tablet Take 1 tablet by mouth once daily. polyethylene glycol 3350 (MIRALAX, GLYCOLAX) 17 gram/dose powder Take by mouth once daily. Dissolve dose in 4 - 8 ounces of liquid and take as directed. B Complex-Vitamin C-Folic Acid (DIALYVITE 800) 0.8 mg tab Take 0.8 mg by mouth once daily. predniSONE (DELTASONE) 2.5 mg tablet Take 1 tablet by mouth once daily. (Patient not taking: No sig reported) sevelamer (RENAGEL) 800 mg tablet Take 2 tablets by mouth three times daily with meals. No current facility-administered medications for this visit. FAMILY HISTORY Problem Relation Age of Onset Diabetes Mother Hypertension Mother Hyperlipidemia Father Hypertension Father Diabetes Maternal Grandmother Cancer Paternal Grandmother breast Cancer Paternal Grandfather mouth & throat Family Status Relation Name Status Mo (Not Specified) Fa (Not Specified) Social History Tobacco Use Smoking status: Never Smokeless tobacco: Never Substance Use Topics Alcohol use: Not Currently Drug use: Not Currently Pre-transplant testing: Cardiac: EKG today Ct chest 04/12/2021 Smooth symmetric bilateral interlobular septal thickening with edema Tree in bud opacities in right upper lobe Ill defining patchy ground glass opacities in right middle and upper lobes alveolar hemorrhage vs multi focal pneumonia Splenomegaly Kidney biopsy 04/18/2021 26 glomeruli, 21 with crescents and extensive injury. 4 cellula, 17 fibrocellular with ruptured manjarrez 'capsules. 6 with segmental sclerosis and 3 fibrinoid necrosis. One with interlobular artery with fibrinoid necrosis. Neg IF and EM . PAP Test: scheduled for wednesday at [facility] Mammogram: Not applicable Colonoscopy: Not applicable Sensitizations: Prior transplant: No Blood transfusions: Yes : Yes Immunizations: HBV series: Received, date 07/10/2021 , 06/12/2021 Pneumovax: Received, date Apr 2021 Influenza vaccine: Received, date Apr 2021 Covid vaccine: Received, date 07/02/2020 , 06/09/2020 Kenny Orozco RN REVIEW OF SYSTEMS: GENERAL: No weight loss, malaise or fevers HEENT: Negative for frequent or significant headaches, No changes in hearing or vision, no nose bleeds or other nasal problems NECK: Negative for lumps, goiter, pain and significant neck swelling RESPIRATORY: Negative for cough, hemoptysis, wheezing, COPD, dyspnea or shortness of breath CARDIOVASCULAR: Negative for chest pain, leg swelling, hypertension, CHF or palpitations GI: No nausea, vomiting, or diarrhea : No history of dysuria, frequency or incontinence MUSCULOSKELETAL: Negative for joint pain or swelling, back pain or muscle pain SKIN: Negative for lesions, rash, and itching PSYCH: Negative for sleep disturbance, mood disorder and recent psychosocial stressors HEMATOLOGY/LYMPHOLOGY: Negative for prolonged bleeding, bruising easily or swollen nodes ENDOCRINE: Negative for cold or heat intolerance, polyuria, polydipsia and goiter NEURO: No history of headaches, syncope, paralysis, seizures or tremors All other systems were reviewed and negative. PHYSICAL EXAM: BP 157/88 (BP Site: Left Arm, BP Position: Sitting, BP Cuff Size: Regular Adult) Pulse 81 Temp 36.5 C (97.7 F) (Temporal) Ht 152.4 cm (5') Wt 79.2 kg (174 lb 11.2 oz) LMP 06/20/2021 SpO2 100% BMI 34.12 kg/m General appearance: Well appearing, alert, in no acute distress, well-hydrated, well nourished. Skin: Skin color, texture, turgor normal, no suspicious rashes or lesions Head: Normocephalic, no masses, lesions, tenderness or abnormalities Eyes: Anicteric sclera. Extraocular movements are intact. Ears: External ears normal Back: Normal exam Lungs:Respirations unlabored Abdomen: Normal abdominal exam, Abdomen soft, non-tender. Bowel sounds normal. No masses, organomegaly Extremities: No deformities, edema, skin discoloration, clubbing or cyanosis. Good capillary refill. Musculoskeletal: No joint swelling, deformity, or tenderness Peripheral pulses: Normal Neuro: Gait normal. Sensation grossly intact. CT imaging: no calcification on both EIAs in ASSESSMENT: no h/o DVT, PE, NM, or CVA Midodrine no no h/o malignancy no anticoagulation -The kidney transplant and kidney/pancreas transplant operations were discussed with the patient at length, and all questions were answered to the patient's satisfaction. Risks, benefits, and alternatives discussed. Risks discussed include but are not limited to: bleeding, infection, , NM, DVT, PE, CVA, risk of damage to surrounding structures, risk of lymphocele, urine leak, stricture, lower extremity complications, risk of bowel complications, bowel obstruction, and anastomotic leak. Also discussed the need for immunosuppressant medications for the lifetime of the allograft and the associated risks of infection and malignancy over time. 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 Gerald Duarte is an acceptable candidate for kidney transplantation pending completion of work up and meeting the rest of the team. Advantages and disadvantages of transplantation versus dialysis were reviewed. Discussed the operative procedure and potential complications. I addressed issues of post-operative recovery and follow up. Few things I have discussed with her a. because of her age, living donor would be ideal for her. b. the importance of compliance c. the frequent travel in the early post op period for monitoring d. We also discussed the transplant procedure and the need for urinary catheter and ureteric stent. I overviewed the issues of delayed graft function, the possible need for dialysis, and the possible need for re-operation during the early postoperative period. I also informed them of the occasional need for blood transfusion and they expressed their understanding and willingness to accept one if the need arises. I mentioned other complications including thromboembolic events, cardiac events, and infection. Lastly I discussed the need for immunosuppressive therapy and the risk associated with this treatment. they would like to proceed 1. CT scan abdomen and pelvis non contrast: no calcification on both EIAs in 2. Serology - 3. stress echo I spent a total of 60 minutes on the date of the service which included preparing to see the patient, eaqz-en-afuc patient care, completing clinical documentation, obtaining and/or reviewing separately obtained history, performing a medically appropriate examination, counseling and educating the patient/family/caregiver, ordering medications, tests, or procedures, communicating with other HCPs (not separately reported), independently interpreting results (not separately reported), communicating results to the patient/family/caregiver, and care coordination (not separately reported). Alton Gonzalez MD documented in this encounter [facility] 10-23-2021 Miscellaneous Notes Explained to pt that her appointment will be rescheduled for some time after 10/29. Pt says that she is ok to come anytime except November 05. Mita verbalized her understanding. Kenny Orozco RN Unsuccessful attempt to contact Mita SWENSON. Per [facility] protocol pt needs to wait 21 days since covid pos test. Pt will be scheduled for the following week. Will attempt to contact pt again. Kenny Orozco RN documented in this encounter [facility] 10-13-2021 History of Present illness Narrative This visit was performed virtually due to the COVID-19 epidemic as an effort to protect patients and minimize exposure. This Team Access Model visit is a virtual encounter. It required patient-provider interaction for the medical decision making as documented below. Nutrition Therapy Initial Assessment Nutrition Diagnosis: Overweight/obesity, related to, food/nutrition - related knowledge deficit and physical inactivity, as evidenced by BMI above normative standard for age and gender. RECOMMENDED MALNUTRITION DIAGNOSIS: NO MALNUTRITION IDENTIFIED NUTRITION CARE PLAN Nutrition Intervention 10/13/2021: Plate method for Lunch/Dinner 1/2 plate vegetables, 1/4 plate starch or whole grains, 1/4 plate lean sources of protein 6oz animal protein daily - supplement with plant proteins as able Low-Sodium Diet *2000mg or less sodium/day *do not add any additional salt to food *use sodium-free seasonings like herbs and spices *avoid canned foods *avoid processed foods Choose foods low in Phosphorus *See list for high and low foods *Limit to 800-1000mg daily Increase exercise to 150 minutes/week of moderate-intensity activity Nutrition Pre-Transplant Assessment No contraindications Nutrition Monitoring & Evaluation: Monitor weight status and labs as available. Monitor diet recall for adherence to recommendations. Need for Follow up: PRN Patient presents for evaluation prior to consideration for kidney transplant. Patient has been on dialysis for about 7 months now. Patient sees a dialysis dietitian on a monthly bases and she reports to have good labs in exception of phosphorus. Patient is not on a fluid restriction, but tries to stick to 1 L per day. 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 Resting Metabolic Rate: 1369 Malnutrition Screening Significant unintentional weight loss? No Eating less than 75% of usual intake for more than 2 weeks? No Potential Signs of Inflammation: unable to determine at this time Education Materials Provided: Healthy Lunch/Dinner Plate and Low-Phosphorus Diet Guidelines and Your Sodium-Controlled Diet READINESS TO LEARN Cognitive ability: Alert and oriented Motivation to learn: Interested Family support: Unable to assess - Family not present Instruction provided to: Patient Patient learns best by: Unable to Assess Factors affecting learning: Unable to assess Physical limitations affecting learning: Limited Mobility Referred/Supervised by: Jo/Mendoza MARTÍNEZ Billing Type: Initial Assess/15 min 2 units SIGNATURE: Es Florez RD PATIENT NAME: Mita Duarte DATE: October 13, 2021 TIME: 3:14 PM PAGER: N/A documented in this encounter [facility] 10-13-2021 History of Present illness Narrative Summary: Kidney PreTransplant Education PRE-TRANSPLANT PATIENT EDUCATION NOTE Type of Transplant: Kidney Informed Consent for Evaluation signed: No, to be signed at in person evaluation. Multiple Listing Form signed: No, to be signed at in person evaluation. READINESS TO LEARN: Cognitive Ability: Alert and oriented Motivation to Learn: Interested Family Support: Unable to assess - Family not present Instruction Provided to: Patient Patient Learns Best by: Multiple Methods Factors Affecting Learning: None Physical Limitations Affecting Learning: None LEARNING RESPONSE: Diagnosis: ESRD Education Topics/Teaching Points: -Discussed living donor evaluation and approval process. -Discussed the evaluation and listing process. -Discussed the different types of donors (KDPI scoring, DCD, High Risk). -Explained EPTS scoring and how it is calculated. -Explained the surgical procedure and potential complications, surgeons, hospital stay at the time of transplant. -Explained lifetime immunosuppression therapy and frequency of blood draws/labs post-op and post-op course of treatment. -Reviewed National and [facility] outcomes from the most recent [facility] center-specific report; a copy of the program summary was given to the patient. -Explained that if the transplant is not performed at a Medicare-approved transplant center it could affect the ability to have immunosuppressive medications paid under Medicare Part B. Supplemental Material: -Pre-Transplant Patient Education Folder -UNOS: Questions & Answers for Transplant Candidates about Multiple Listing and Waiting Time Transfer -UNOS: Questions & Answers for Transplant Candidates about Kidney Allocation Policy -Directions to access [facility]'s data through the [facility] website. -Informed Consent for Transplant Program Participation patient education packet -National Kidney Registry pamphlet -Covid-19 Vaccination for Transplant Candidates Method of Instruction: Group class instruction Verbal instruction Computer Patient/Family Response:Pt denied having any questions Follow-Up Plan: Complete - No need for follow-up Referral/Recommendation: None Jessica Camejo RN Pre-Lands Resource Manager documented in this encounter [facility] 10-10-2021 Instructions Vikki Minor RN - 10/10/2021 11:05 AM EDT For any signs of acute allergic reaction: swelling of lips, tongue, mouth, nose, throat, face, any rash, hives, generalized itching, chest pain, palpitations, increased shortness of breath, wheezing, severe dizziness, feeling like you may pass out; Call EMS and go to the ED for further evaluation and treatment. If at any time your symptoms get worse instead of better, contact your physician. Home Isolation Isolation is used to separate people infected with SARS-CoV-2, the virus that causes COVID-19, from people who are not infected. People who are in isolation should stay home until it s safe for them to be around others. In the home, anyone sick or infected should separate themselves from others by staying in a specific sick room or area and using a separate bathroom (if available). Isolation or Quarantine: What's the difference? Quarantine keeps someone who might have been exposed to the virus away from others. Isolation keeps someone who is infected with the virus away from others, even in their home. Who needs to isolate People who have COVID-19 People who have symptoms of COVID-19 and are able to recover at home People who have no symptoms (are asymptomatic) but have tested positive for infection with SARS-CoV-2 Steps to take Stay home except to get medical care Monitor your symptoms. Stay in a separate room from other household members, if possible Use a separate bathroom, if possible Avoid contact with other members of the household and pets Don t share personal household items, like cups, towels, and utensils Wear a mask when around other people, if you are able to Wash hands frequently When to seek emergency medical attention Look for emergency warning signs* for COVID-19. If someone is showing any of these signs, seek emergency medical care immediately: Trouble breathing Persistent pain or pressure in the chest New confusion Inability to wake or stay awake Bluish lips or face *This list is not all possible symptoms. Please call your medical provider for any other symptoms that are severe or concerning to you. Call 911 or call ahead to your local emergency facility: Notify the electronic typesetting machine operator that you are seeking care for someone who has or may have COVID-19. Ending Home Isolation - When you can be around others after you had or likely had COVID-19 I think or know I had COVID-19, and I had symptoms You can be with others after At least 10 days since symptoms first appeared and At least 24 hours with no fever without fever-reducing medication (acetaminophen, ibuprofen, and others) and Other symptoms of COVID-19 are improving (Loss of taste and smell may persist for weeks or months after recovery and need not delay the end of isolation) If you had severe illness from COVID-19 (you were admitted to a hospital and needed oxygen), your healthcare provider may recommend that you stay in isolation for longer than 10 days after your symptoms first appeared (possibly up to 20 days) and you may need to finish your period of isolation at home. I tested positive for COVID-19 but had no symptoms If you continue to have no symptoms, you can be with others after: 10 days have passed since the date you had your positive test If you develop symptoms after testing positive, follow the guidance above for I think or know I had COVID, and I had symptoms. I had COVID-19 or I tested positive for COVID-19 and I have a weakened immune system If you have a weakened immune system (immunocompromised) due to a health condition or medication, you might need to stay home and isolate longer than 10 days. Talk to your healthcare provider for more information. Your doctor may work with an infectious disease expert at your local health department to determine when you can be around others. Fact Sheet for Patients, Parents, and Caregivers Emergency Use Authorization (EUA) of Bebtelovimab for Coronavirus Disease 2019 (COVID-19) You are being given this Fact Sheet because your healthcare provider believes it is necessary to provide you or your child with bebtelovimab for the treatment of sscn-of-ezviutnz coronavirus disease 2019 (COVID-19) in adults and children (12 years of age and older weighing at least 88 pounds [40 kg]) with positive results of direct severe acute respiratory syndrome coronavirus 2 (SARS-CoV-2) viral testing, and who are at high risk for progression to severe COVID-19, including hospitalization or , and for whom other COVID-19 treatment options approved or authorized by FDA are not available or clinically appropriate. This Fact Sheet contains information to help you understand the potential risks and potential benefits of receiving bebtelovimab, which you or your child have received or may receive. The [place]. Food and Drug Administration (FDA) has issued an Emergency Use Authorization (EUA) to make bebtelovimab available during the COVID-19 pandemic (for more details about an EUA please see What is an Emergency Use Authorization? at the end of this document). Bebtelovimab is not an FDA-approved medicine in the [place]. Read this Fact Sheet for information about bebtelovimab. Talk to your healthcare provider about your options or if you have any questions. It is your choice for you or your child to receive bebtelovimab or stop it at any time. What is COVID-19? COVID-19 is caused by a virus called a coronavirus (SARS-CoV-2). You can get COVID19 through contact with another person who has the virus. COVID-19 illnesses have ranged from very mild (including some with no reported symptoms) to severe, including illness resulting in . While information so far suggests that most COVID-19 illness is mild, serious illness can happen and may cause some of your or your child s other medical conditions to become worse. Older people and people of all ages with severe, or long lasting (chronic) medical conditions like heart disease, lung disease, diabetes, and obesity, for example, seem to be at higher risk of being hospitalized for COVID-19. Older age, with or without other conditions, also places people at higher risk of being hospitalized for COVID-19. What is bebtelovimab? Bebtelovimab is an investigational medicine used for the treatment of ijvl-fg-oyllqdco coronavirus disease 2019 (COVID-19) in adults and children (12 years of age and older weighing at least 88 pounds [40 kg]): with positive results of direct SARS-CoV-2 viral testing, and who are at high risk1 for progression to severe COVID-19, including hospitalization or , and for whom other COVID-19 treatment options approved or authorized by FDA are not available or clinically appropriate. There is limited information known about the safety and effectiveness of using bebtelovimab for the treatment of ddsa-xr-rbwotcxu COVID-19. For more information on EUA, see the What is an Emergency Use Authorization (EUA)? section at the end of this Fact Sheet. Bebtelovimab is not authorized for use in people who: are likely to be infected with a SARS-CoV-2 variant that is not able to be treated by bebtelovimab based on the circulating variants in your area (ask your health care provider about FDA and CDC s latest information on circulating variants by geographic area), or are hospitalized due to COVID-19, or require oxygen therapy and/or respiratory support due to COVID-19, or require an increase in baseline oxygen flow rate and/or respiratory support due to COVID19 and are on chronic oxygen therapy and/or respiratory support due to underlying nonCOVID-19 related comorbidity. What should I tell my healthcare provider before I or my child receive bebtelovimab? Tell your healthcare provider about all your or your child s medical conditions including if you or your child: Have any allergies Are or plan to become Are or plan to breastfeed Have any serious illnesses Are taking any medicines (prescription, and tqjp-aso-baoobai, vitamins, or herbal products) How will I or my child receive bebtelovimab? Bebtelovimab will be given as an injection through a vein (intravenously or IV) over at least 30 seconds. You will be observed by your healthcare provider for at least 1 hour after you receive bebtelovimab. What are the important possible side effects of bebtelovimab? Allergic reactions. Allergic reactions can happen during and after injection with bebtelovimab. Tell your healthcare provider right away if you or your child develop any of the following signs and symptoms of allergic reaction: fever, difficulty breathing, low oxygen level in your blood, chills, tiredness, fast or slow heart rate, chest discomfort or 1 For information on medical conditions and factors associated with increased risk for progression to severe COVID-19, see the Centers for Disease Control and Prevention (CDC) website: https://www.cdc.gov/coronavirus/2019- ncov/need-extraprecautions/people-wit o-nlumqev-shmnrppdxl.html. Healthcare providers should consider the benefit-risk for an individual patient. pain, weakness, confusion, nausea, headache, shortness of breath, low or high blood pressure, wheezing, swelling of your lips, face, or throat, rash including hives, itching, muscle aches, dizziness, feeling faint, and sweating. These reactions may be severe or life threatening. The side effects of receiving any medicine by vein may include brief pain, bleeding, bruising of the skin, soreness, swelling, and possible infection at the injection site. These are not all the possible side effects of bebtelovimab. Not many people have received bebtelovimab. Serious and unexpected side effects may happen. All of the risks are not known at this time. It is possible that bebtelovimab could interfere with your body's own ability to fight off a future infection of SARS-CoV-2. Similarly, bebtelovimab may reduce the body s immune response to a vaccine for SARS-CoV-2. Talk to your healthcare provider if you have any questions. What other treatment choices are there? Like bebtelovimab, FDA may allow for the emergency use of other medicines to treat people with COVID-19. Go to https://www.fda.gov/emergency-prepare tpyny-oll-eazlbifp/mcm-legalregulator f-crw-lkwpfs-framework/emergency-use- authorization for information on the emergency use of other medicines that are authorized by FDA to treat people with COVID-19. Your healthcare provider may talk with you about clinical trials for which you may be eligible. It is your choice for you or your child to be treated or not to be treated with bebtelovimab. Should you decide not to receive it or for your child to not receive it, it will not change your or your child s standard medical care. What if I am or ? There is limited experience treating women or mothers with bebtelovimab. For a mother and unborn baby, the benefit of receiving bebtelovimab may be greater than the risk from the treatment. If or , discuss your options and specific situation with your healthcare provider. How do I report side effects with bebtelovimab? Contact your healthcare provider if you have any side effects that bother you or do not go away. Report side effects to FDA [employer] at www.fda.gov/medwatch, or call 5-011-BFK-2773 or to [employer] as shown below. Email Fax Number Telephone Number [email or web address] 1-855-lillyc19 ( ) How can I learn more about COVID-19? Ask your healthcare provider Visit https://www.cdc.gov/COVID19 Contact your local or state public health department What is an Emergency Use Authorization? The [place] FDA has made bebtelovimab available under an emergency access mechanism called an Emergency Use Authorization (EUA). The EUA is supported by a [place] of Health and Human Service (HHS) declaration that circumstances exist to justify the emergency use of drugs and biological products during the COVID-19 pandemic. Bebtelovimab for the treatment of chxx-bo-gquwtabe COVID-19 in adults and children (12 years of age and older weighing at least 88 pounds [40 kg]) and who are at high risk of developing severe COVID-19, including hospitalization or , and for whom other COVID19 treatment options approved or authorized by FDA are not available or clinically appropriate has not undergone the same type of review as an FDA-approved product. In issuing an EUA under the COVID-19 public health emergency, the FDA has determined, among other things, that based on the total amount of scientific evidence available, including data from adequate and well-controlled clinical trials, it is reasonable to believe that the product may be effective for diagnosing, treating, or preventing COVID-19, or a serious or life-threatening disease or condition caused by COVID-19; that the known and potential benefits of the product, when used to diagnose, treat, or prevent such disease or condition, outweigh the known and potential risks of such product; and that there are no adequate, approved and available alternatives. All of these criteria must be met to allow for the product to be used in the treatment of patients during the COVID-19 pandemic. The EUA for bebtelovimab is in effect for the duration of the COVID-19 declaration justifying emergency use of bebtelovimab, unless terminated or revoked (after which bebtelovimab may no longer be used under the EUA). Additional Information For general questions, visit the website or call the telephone number provided below. Website Telephone Number www.[email or web address]/bebtelovimab 6-920-HimlvR92 ( Literature issued April 25, 2021 [address], [place] [address], [place] Copyright 2021, [employer]. All rights reserved. 4.4-KAR-3606-EUA [facility]-[id number] documented in this encounter [facility] 10-09-2021 Miscellaneous Notes Phone call to patient. Onset of symptoms 10/08/21 Covid + 10/08/21. Symptoms are fever, cough, & fatigue. Patient wants get monoclonal antibodies. Fcat sheet sent & will put the orders to receive at [facility]. Deb Everett RN documented in this encounter [facility] 10-06-2021 Miscellaneous Notes Spoke with patient reminding of appointment on 10/13/2021 (VV) and 10/27/2021. patient stating that she will be attending both appointments and all questions answered. Callback number was provided. Jia Richardson MA documented in this encounter [facility] 10-01-2021 History of Present illness Narrative Summary: Kidney PreTransplant Evaluation MICA: needs Tox screen and dental clearance New Referral Referring Physician Dr Delma Osorio Organ Type kidney ESRD Yes. 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 Yes HD started 03/2021 Name of D[facility]: [facility] Diabetes no Smoking never Current BMI 32.8 Previous Transplant no Date of Last Transplant n/a Currently Listed? No Started evaluations at [facility] and [facility] Willing to accept blood transfusion? yes Potential Living Donor? Yes 2 sisters Full evaluation yes Malnutrition Screening Tool (MST) 1. Have you lost weight without trying? No- 0 Weight loss score: 0 2. Have you been eating poorly in the last week because of a decreased appetite? No- 0 Appetite score: 0 Total MST score (weight loss + appetite scores): 0 Score of 2 or more = referral to registered dietitian for an individual appointment Jessica Camejo RN Pre-Kidney & Pancreas Lands Resource Manager 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 Nasal crusting - doesn't do any rinses Had ear fullness and but no hearing loss No eye symptoms Had cough with clear sputum No oral ulceration or nasal ulceration She had fever for a month - T max for 99 -100.7 No weight loss She had vomiting due to uremia No neuropathy, no skin rash, no joint pain or joint She felt very sick, she went to urgent care x3 times and ER in her city She had horsy voice Her voice was horsey but now improved Then in early she became aneuric for 24 hours and was vomiting a lot. c ANCA 1:640. pr3 1319. CRP 22.96 N< 1. SD rate >100. Hep neg. TB NEG. GBM abs neg Ct chest 04/12/2021 Smooth symmetric bilateral interlobular septal thickening with edema Tree in bud opacities in right upper lobe Ill defining patchy ground glass opacities in right middle and upper lobes alveolar hemorrhage vs multi focal pneumonia Splenomegaly Kidney biopsy 04/18/2021 26 glomeruli, 21 with crescents and extensive injury. 4 cellula, 17 fibrocellular with ruptured manjarrez 'capsules. 6 with segmental sclerosis and 3 fibrinoid necrosis. One with interlobular artery with fibrinoid necrosis. Neg IF and EM . Still on HD 3 times a week TTS Was pulsed with IV steroid then 04/19 since then Takes her prednisone in the morning Not on PJP prophylaxis Breathing is alrgiht - sinuess are better She is vaccinated but not boosted yet No frequent infections Was started hydralazine during her admission as needed for BP >140/90 She has two kids - tubal ligation predniosone had GI upset but controlled with omeprazole Making little bit of urine Interval history September 08, 2021 2 months ago she had acute elevation of Transaminitis - was found to have dilated bile duct- she eventually under went cholecystectomy No reaction to her RTX ( 05/16- 05/23-05/30, 06/06 ) She is down to 5 mg of prednisone She got her evusheld - 06/11/2021 Sinuses are okay - no nasal bleeding or crusting No joint pain, no cough, hemoptysis, purpuric skin rash, numbness or tingling sensation Bactrim SS 3 times a week She is getting erythropoietin per her etched circuit processor and plan is to list her on transplant list She was transferred to [facility] given hard vascular access No fever, chills, night sweats no recurrent infection Answers for HPI/ROS submitted by the patient on 09/04/2021 Fever : No Recent Unintentional Weight Change: No Eye Pain: No Eye Redness: No Vision Disturbance: No Eye Dryness: No Nose Bleeds: No Sores in your Mouth: No Trouble Swallowing: No Dry Mouth: No Chest Pain: No Leg Swelling: No A Cough: No Shortness of Breath: No Pain with Breathing: No Heartburn: No Abdominal Pain: No Diarrhea: No Black Tarry Stools: No Blood in Urine: No Pain or Burning with Urination: No Joint Pain or Stiffness: Yes Muscle Weakness: Yes Muscle Aches: Yes Joint Swelling: No Morning Stiffness in Joints: No A Rash: No Skin Color Changes: No Hair Loss: No Nail Changes: No Headaches: No Numbness: No Memory Loss: No Swollen Glands: No PAST MEDICAL HISTORY: None PAST SURGICAL HISTORY: 2 csection CURRENT MEDICATIONS: Current Outpatient Medications Medication Sig sevelamer carbonate (RENVELA) 800 mg tablet Sevelamer Carbonate Active 1600 MG PO 3 times per day with meals August 19, 2021 1:41pm carvedilol (COREG) 12.5 mg tablet sulfamethoxazole-trimethoprim (BACTRIM,SEPTRA) 400-80 mg per tablet Sulfamethoxazole-Trimethoprim Active 1 TAB PO every Wednesday, Wednesday, and Thursday August 19, 2021 1:47pm predniSONE (DELTASONE) 2.5 mg tablet Take 1 tablet by mouth once daily. (Patient taking differently: Take 5 mg by mouth once daily. ) polyethylene glycol 3350 (MIRALAX) 17 gram/dose powder Take by mouth once daily. Dissolve dose in 4 - 8 ounces of liquid and take as directed. predniSONE (DELTASONE) 1 mg tablet Take 1 tablet by mouth once daily. (Patient not taking: Reported on 09/08/2021 ) sevelamer (RENAGEL) 800 mg tablet Take 2 tablets by mouth three times daily with meals. predniSONE (DELTASONE) 20 mg tablet Take 2 tablets by mouth once daily. B Complex-Vitamin C-Folic Acid (DIALYVITE 800) 0.8 mg tab Take 0.8 mg by mouth once daily. (Patient not taking: Reported on 09/08/2021 ) No current facility-administered medications for this visit. ALLERGIES: Patient has no known allergies. 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 No nasal crusting or bleeding. No sinus tenderness LUNGS: on RA.clear. 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 She was pulses on steroid then transitioned to oral 60 mg on 04/19 until present. Her local etched circuit processor is working on getting her RTX approved On exam she has clear saddle nose deformity with extensive bloody crusting in right nostril - unable to visualize if there is any nasal septum perforation or not We discussed treatment, prognosis and overall management with her and her Recently she was noted to have a drop in her hemoglobin (13 to 10) post cholecystectomy - no hemoptysis She received 4 infusions of RTX so far ( 05/16- 05/23-05/30, 06/06/2021) She is down to 5 mg of prednisone Continue bactrim SS 3 times a week for pjp prophylaxis Patient received Evusheld in 05/2021 She was seen by ENT - no signs of subglottic stenosis - recommends baseline PFTs with loop study She is vaccinated against COVID infection - recommend booster in 10/2021 DXA scan showed osteopenia T score of -0.3 - we will check vit D level Nasal cream and sinus rinses baseline Immunoglobulins before RTX was normal Dur for RTX in 11/2021 For now continue prednisone 5 mg per day Repeat CT chest in 11/2021 I spent a total of 35 minutes on the date of the service which included reviewing chart, interviewing patient, documentation, and placing orders Te Avendaño MD Rheumatology staff September 08, 2021 documented in this encounter [facility] 09-01-2021 History of Present illness Narrative [facility] General Surgery HISTORY AND PHYSICAL CC: Chief Complaint: post op lynne Subjective History: HPI: Mita Duarte is a 41 year old female who presents for post op evaluation follow laparoscopic cholecystectomy on 07/01. Patient has no complaints and seems to have healed well. She has no residual pain, no nausea vomiting, and has tolerated PO. Recently underwent PD and trialysis cath insertions at outside facility. 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) History of transfusion PAST SURGICAL HISTORY Procedure Laterality Date SECTION HX TONSILLECTOMY HX Social History Tobacco Use Smoking status: Never Smoker Smokeless tobacco: Never Used Substance Use Topics Alcohol use: Not Currently Drug use: Not Currently Additional social history not relevant to the patient's HPI FAMILY HISTORY Problem Relation Age of Onset Diabetes Mother Hypertension Mother Hyperlipidemia Father Hypertension Father Additional family history not relevant to the patient's HPI ALLERGIES No Known Allergies Current Outpatient Medications Medication Sig Dispense Refill predniSONE (DELTASONE) 2.5 mg tablet Take 1 tablet by mouth once daily. 90 tablet 0 predniSONE (DELTASONE) 1 mg tablet Take 1 tablet by mouth once daily. 90 tablet 0 sevelamer (RENAGEL) 800 mg tablet Take 2 tablets by mouth three times daily with meals. 180 tablet 0 predniSONE (DELTASONE) 20 mg tablet Take 2 tablets by mouth once daily. 60 tablet 0 polyethylene glycol 3350 (MIRALAX) 17 gram/dose powder Take by mouth once daily. Dissolve dose in 4 - 8 ounces of liquid and take as directed. B Complex-Vitamin C-Folic Acid (DIALYVITE 800) 0.8 mg tab Take 0.8 mg by mouth once daily. No current facility-administered medications for this visit. Review of Systems The remainder of the 12 review of systems is negative other than what was mentioned in the HPI and above. Objective Vitals and Physical Exam BP 145/83 Pulse 89 Temp 36.5 C (97.7 F) (Tympanic) Ht 152.4 cm (5') Wt 77.1 kg (170 lb) LMP 06/20/2021 BMI 33.20 kg/m Physical Exam Physical Exam Constitutional: Well-developed, well-nourished, in no distress Head: Normocephalic and atraumatic Eyes: Pupils are equal, round, and reactive to light. EOM normal Neck: Supple, with normal range of motion Cardiovascular: RRR without murmur, gallop, or rubs Pulmonary/Chest: Clear to auscultation bilaterally, no wheezing, rhonchi, or stridor Abdominal: Soft, nontender. Bowel sounds are normal. Recent laparoscopic PD cath insertion incisions healing well. Lap lynne incisions well healed. No incisional erythema or drainage. Musculoskeletal: Normal range of motion Neurological: Alert, no focal neurological deficits, sensation and strength grossly intact Skin: Skin is warm and dry Psychiatric: Affect and judgment normal Labs No results found for: HBA1C CBC:No results for input(s): WBC, HB, HCT, PLT, MCV, RDWCV, NEUTP, ABSNEUT, LYMPHP, MONOP, EODINP in the last 168 hours. COAG: No results for input(s): APTT, INR in the last 168 hours. BMP: No results for input(s): GLUC, NA, K, CHLOR, CO2, ANION, BUN, CREAT in the last 168 hours. CHEM: No results for input(s): ALB, TPROT, CA, MG in the last 168 hours. HEPATIC: No results for input(s): ALKPHOS, ALT, AST, TBILI, LIPASE in the last 168 hours. URINALYSIS:No results for input(s): PH, SPGR, UGLUC, UBILI, UKET, UHB, UPROT, UROBIL, UWBC, SSA in the last 168 hours. Invalid input(s): NITR CARDIAC: No results for input(s): CKTEST, CKMB, CKMBP, TROPT, PBNP in the last 168 hours. Imaging / Procedures none Assessment and Plan iMta Duarte is a 41 year old female who presents for post operative evaluation following lap lynne on 07/01. Patient has healed well with no complaints. Only needs to follow up if patient has further concerns. Plan: - no need for further follow up Patient was discussed with Dr. Bernal. This note is not valid until cosigned / addended by a staff attending physician. SIGNATURE: Maria G Wong, MS4 PATIENT NAME: Mita Duarte DATE: September 01, 2021 TIME: 1:27 PM documented in this encounter [facility] 09-01-2021 Nurse Note What is the reason for your visit today? Post op Who is your referring physician? fellow Are you having poor oral intake? NO Have you had unintentional weight loss of 15 lbs/7 Kg in the last 3-6 months? NO Bowels: regular Wound: clean & dry Temperature: No Drains: Yes catheter documented in this encounter [facility] 08-22-2021 Note [facility] 08-22-2021 Note [facility] 08-15-2021 Miscellaneous Notes Patient called. She states that she is supposed to repeat labs, but there are no orders in. Please enter orders into MAPPING. Thank you documented in this encounter [facility] 08-07-2021 History of Present illness Narrative Radiology Service Progress Note PATIENT NAME: Mita Duarte DATE OF SERVICE: August 07, 2021 TIME: 3:07 PM PATIENT IDENTITY VERIFICATION COMPLETED USING TWO (2) IDENTIFIERS: Name and Date of confirmed by patient verbally. FALL SCREENING: Has the patient had 2 falls in the last year or 1 fall with injury or currently using an Ambulatory Assistive Device (Walker, Cane, Wheelchair, Crutches, etc.)? No PATIENT GENDER DATA: Female. status: : No status: NO. PATIENT RELEVANT IMPLANT DATA REVIEWED: Not Applicable RADIOLOGY DEPARTMENT: Bone Density PERIPHERAL IV DATA: Not applicable SIGNED BY: RT Denia(R) August 07, 2021 3:07 PM documented in this encounter [facility] 08-06-2021 History of Present illness Narrative Consultation requested by Dr. Te Avendaño for an opinion regarding patient with GPA. My final recommendations will be communicated back to the requesting physician by way of shared Medical record or letter to requesting physician via US mail. 41 year old female presents with the following concerns and complaints: Possible airway problem ASSESSMENT/IMPRESSION/PLAN: Patient with GPA who presented with voice loss/hoarseness; this has totally resolved. No evidence of subglottic stenosis. Recommend pulmonary function test with flow loop study for baseline. I will contact her with results. Follow-up as needed No evidence of nasal polyps. The nasal chamber is clear. Patient apparently had acute rhinitis related to her acute onset of GPA. No residual lesions are in the nose. HISTORY OF PRESENT ILLNESS: Patient describes hospital admission in March 2021 for shortness of breath, loss of voice, kidney problems which resulted in a diagnosis of GPA. Her primary otolaryngology/ENT symptomatology at that time was voice loss which lasted about 5 weeks as well as spotting nasal mucus with blood. Upon admission through the ED it was thought she had nasal polyps. Following initiation of treatment for GPA with rituximab and prednisone her symptoms have significantly improved. Over the last 4 months she has had no problem with shortness of breath, voice change, difficulty swallowing, noisy breathing, lump sensation or pain in the larynx. Denies: Nose blockage, facial pain, hyposmia, colored nasal discharge or bleeding. 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 polyethylene glycol 3350 (MIRALAX) 17 gram/dose powder Take by mouth once daily. Dissolve dose in 4 - 8 ounces of liquid and take as directed. B Complex-Vitamin C-Folic Acid (DIALYVITE 800) 0.8 mg tab Take 0.8 mg by mouth once daily. sevelamer (RENAGEL) 800 mg tablet Take 2 tablets by mouth three times daily with meals. No current facility-administered medications for this visit. REVIEW OF SYSTEMS: GENERAL: No weight loss, malaise or fevers HEENT: Negative for frequent or significant headaches, No changes in hearing or vision, no nose bleeds or other nasal problems NECK: Negative for lumps, goiter, pain and significant neck swelling EXAM VITAL SIGNS: [facility] 06/20/2021 APPEARANCE: alert, NAD and cooperative. EYES: Conjunctiva and sclera normal and without drainage. EARS: TMs without erythema and apppear normal bilat. Canals normal bilaterally.. NOSE/SINUS: Nares normal, no sign of erythema or edema of the turbinates. MOUTH: Examination includes lips, tongue, teeth, buccal mucosa, gingiva, hard palate, floor the mouth, normal. OROPHARYNX: Examination of the soft palate, posterior and lateral pharyngeal lui, tonsil fossa, normal. NASOPHARYNX: Superior wall, lateral recess, Rosenmuller's fossa, eustachian tube orifice, normal. NECK: Neck supple, no adenopathy; thyroid symmetric, normal size, no bruits.. CRANIAL NERVE 2-7 AND 9-12: normal. PROCEDURE: FIBEROPTIC EXAM OF THE LARYNX and HYPOPHARYNX Flexible transnasal laryngoscopy procedure. Reason: inadequate view of the larynx with a mirror due to gagging or macroglossia. Anesthetic: topical xylocaine and phenylephrine applied to nasal vestibule bilaterally. The following areas were examined: base of tongue.epiglottis, true and false vocal folds, ventricle, subglottic trachea, arytenoids and aryepiglottic folds, piriform and postcricoid region. FINDINGS: Vocal fold movement is normal. Mucosal surfaces of the above structures are normal and the subglottis is widely patent Suyapa Louise MD Otolaryngology documented in this encounter [facility] 08-06-2021 Nurse Note AMBULATORY PATIENT EDUCATION NOTE TOPIC: GI PROCEDURES: Endoscopic Retrograde CholangioPancreatography(ERCP) with or without biopsy,stenting,dilation and/or treatment READINESS TO LEARN INSTRUCTION PROVIDED TO: Patient and family member COGNITIVE ABILITY: Alert and oriented PTED MOTIVATION TO LEARN: Eager FAMILY SUPPORT: High - Very involved in pt care IPATIENT LEARNS BEST BY: Individual Instruction Written Instruction - Hand-outs Verbal Instruction FACTORS AFFECTING LEARNING: None PHYSICAL LIMITATIONS AFFECTING LEARNING: None LEARNING RESPONSE METHOD OF INSTRUCTION: Individual instruction PATIENT / FAMILY RESPONSE: Verbalizes understanding of: WORSENING CONDITION-Signs and symptoms of a worsening condition that warrant a call to the physician FOLLOW-UP PLAN: Patient instructed to call with any further issues SUPPLEMENTAL MATERIAL: Procedure Discharge Instructions REFERRAL (RECOMMENDATION): None PRE OP LEARNING ASSESSMENT PROCEDURE/SURGERY: GI PROCEDURES: ERCP READINESS TO LEARN COGNITIVE ABILITY: Alert and oriented MOTIVATION TO LEARN: Eager FAMILY SUPPORT: High - Very involved in pt care PATIENT LEARNS BEST BY: Individual Instruction FACTORS AFFECTING LEARNING: None PHYSICAL LIMITATIONS AFFECTING LEARNING: None Electronically Signed By: Pat Tipton RN In Department: GASTROENTEROLOGY documented in this encounter [facility] 08-06-2021 History and physical note HISTORY AND PHYSICAL Mita Duarte, 41 year old female Current history and physical on file: Yes Is a new History and Physical required for today's visit? Yes Indication for procedure: Other CBD stones PROCEDURE(S) SCHEDULED FOR: ERCP (Endoscopic Retrograde CholangioPancreatography with or without biopsy, stenting, dilation, cholangioscopy and/or treatment, based on clinical findings. BASELINE BEHAVIOR: Calm BASELINE ORIENTATION: A & O x3 All medications and allergies reviewed: Yes Skin Assessment: Warm dry mucus membranes pink Airway/Respiratory Assessment: Airway: visualization of the uvula- Yes Mouth: opening greater than 2 fingerbreadths- Yes Neck: full range of motion- Yes Breath sounds clear/equal- Yes Cardiac Assessment: Regular rate and rhythm without murmur Abdominal Assessment: Abdomen soft, non-tender, no masses or organomegaly. Sedation Plan: MAC Additional Comments: None Romulo Dent MD documented in this encounter [facility] 08-06-2021 Nurse Note Tobacco Use: Never Was smoking cessation packet given? N/A - Patient is a non-smoker or quit >1 year ago. Was a referral initiated?N/A Patient is a non-smoker documented in this encounter [facility] 08-05-2021 History of Present illness Narrative VIRTUAL VISIT FOLLOW UP I had a virtual visit with Ms. Duarte today for follow up of elevated liver enzymes/recent hospitalization. UPDATED HISTORY: CC: follow up HPI: Ms. 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 Patient is followed by Dr. Kerr, last seen 05/02/21 (only seen virtually). At last visit: Her newly positive Hepatitis B surface antigen (previously negative) is likely to be temporally related to the Hepatitis B vaccine she received 2-3 days prior to serological testing. This is supported by a negative total HBV Core antibody, with normal immunoglobulin total IgG and IgM levels, and normal liver biochemistries. She has confirmatory testing pending. The HBV surface antigen response to immunization is transient, and will resolve. She should complete her Hepatitis B immunization series through her dialysis unit, as this is a high risk exposure for HBV transmission. In the absence of a new exposure to HBV, she will not require prophylaxis against Hepatitis B activity or re-activation on Rituximab. I will confirm her immunity to Hepatitis A and will recommend a vaccination series if she is non-immune. She will follow-up as needed and can reach me through shipbeat with any questions. Interval hx: Follow up blood work showed positive HBV s Ag related to HBV vaccine-not acutely infected with HBV. She needs the HAV vaccine as well. June 2021 started to develop abnormal liver enzymes concerning for liver injury and was admitted, found to have choledocholithiasis and underwent cholecystectomy Admitted 06/24/21-07/02/21 and MRCP s/f choledocholithiasis with a 9mm stone in the mid common duct. Mild upstream intrahepatic and extra hepatic biliary dilation. No MR findings of cholangitis. Gallbladder filled with stones and sludge. Additional stone found in the cystic duct. ERCP was performed on 06/26 which showed the entire main bile duct was moderately dilated. A biliary sphincterotomy was performed and the biliary tree was swept and sludge was found. Patient had abdominal pain post ERCP with up-trending Tbili to 6.9. A repeat ERCP was performed on 06/27 and more stones were found and were removed with balloon extraction. One plastic stent was placed in the CBD.General Surgery was consulted for evaluation for a cholecystectomy. Lap lynne was performed on 07/01. Post-op she was without complaint of pain, tolerating PO intake. She completed two additional doses of IV Zosyn post-op. Per general surgery, no further antibiotics recommended. Her Hgb was noted to drop post cholecystectomy from 13.2>11.6. Repeat Hgb 13.1. LFTs normalized since discharge but WBC count was trending upward Since discharge, having intermittent RUQ pain, 2-3 times daily lasting ~20 seconds- varies in intensity, can feel like a muscular cramp Doesn't last long enough to try pain medicine, no precipitating/alleviating factors Seems to be slightly improving the further out from surgery she is No nausea/vomiting/fevers/chages in bm/hematochezia Has ERCP tomorrow for stent removal LFTs have normalized and recent RUQ US with normal liver morphology WBC count has been slightly elevated. Dr. Kerr had been communicating with Dr. Avendaño and Dr. Leon in this regard. Denies current issues with ascites, HE, hematemesis, hematochezia, confusion, dark urine, denise colored stool, nausea, vomiting, weight loss, early satiety, bloating, dysphagia, odynophagia, change in bm. Remaining systems reviewed and are negative. 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 180 tablet 0 NIFEdipine ER (PROCARDIA XL) 60 mg 24 hr tablet Take 1 tablet by mouth twice daily. 60 tablet 0 predniSONE (DELTASONE) 20 mg tablet Take 2 tablets by mouth once daily. 60 tablet 0 polyethylene glycol 3350 (MIRALAX) 17 gram/dose powder Take by mouth once daily. Dissolve dose in 4 - 8 ounces of liquid and take as directed. B Complex-Vitamin C-Folic Acid (DIALYVITE 800) 0.8 mg tab Take 0.8 mg by mouth once daily. ergocalciferol 50,000 unit capsule (VITAMIN D2, DRISDOL) Take 1 capsule by mouth two times a week. 8 capsule 1 No current facility-administered medications for this visit. ALLERGIES No Known Allergies REVIEW OF SYSTEMS: PAIN ASSESSMENT: Negative for pain, history of chronic pain, or current treatment for a chronic pain condition. GENERAL: No weight loss, malaise or fevers RESPIRATORY: Negative for cough, hemoptysis, wheezing, COPD, dyspnea or shortness of breath CARDIOVASCULAR: Negative for chest pain, leg swelling, hypertension, CHF or palpitations GI: No nausea, vomiting, or diarrhea : Not reviewed ALGEBRAIST: Not reviewed PHYSICAL FINDINGS OF NOTE: General Normal, cooperative, in no acute distress Able to interact verbally by video conference Psych ORIENTATION: normal to time place, person and situation Mood/Affect: AFFECT AND MOOD: Normal Head/Neuro Normal size and shape Facial appearance normal Pulmonary respiratory effort normal Cardiovascular patient describes extremities normal and warm Abdominal Not performed Skin abnormal lesions not visualized Motor patient seen sitting with Normal appearing strength and coordination REVIEWED ITEMS RUQ US 07/17/21: IMPRESSION: NORMAL SONOGRAPHIC APPEARANCE OF RIGHT QUADRANT STATUS POST CHOLECYSTECTOMY. NO COLLECTION SEEN ALONG GALLBLADDER FOSSA. MRCP 06/25/21: IMPRESSION: Choledocholithiasis with a 9 mm stone in the mid common duct. Mild upstream intrahepatic and extra hepatic biliary dilation. No MR findings of cholangitis. Gallbladder filled with stones and sludge. Additional stone in the cystic duct. No findings of acute cholecystitis. LVUS 06/25/21: IMPRESSION: Patent hepatic vasculature with appropriately directed flow. No focal liver lesions. Cholelithiasis Dilated common bile duct up to 10 mm without proximal filling defect. Limited visualization of the distal CBD. If needed, this could be further evaluated with MRCP. Splenomegaly. ERCP 06/27/21: Findings: The bile duct was deeply cannulated with the short-nosed traction sphincterotome and guidewire. Contrast was injected. I personally interpreted the bile duct images. There was brisk flow of contrast through the ducts. Image quality was excellent. Contrast extended to the main bile duct. Contrast extended to the cystic duct. Contrast extended to the bifurcation. Contrast extended to the hepatic ducts. The main bile duct contained four stones, the largest of which was 10 mm in diameter. Major papilla was successfully dilated with a 10 mm balloon dilator. To discover objects, the biliary tree was swept with a 12 mm balloon starting at the bifurcation. Four stones were removed. No stones remained. One 10 Fr by 7 cm plastic stent with a single external flap and a single internal flap was placed 7 cm into the common bile duct. Bile flowed through the stent. The stent was in good position. Impression: - Choledocholithiasis was found. Complete removal was accomplished by balloon extraction. - Major papilla was successfully dilated. - The biliary tree was swept. - One plastic stent was placed into the common bile duct. Estimated Blood Loss: Estimated blood loss: none. Recommendation: - Patient has a contact number available for emergencies. The signs and symptoms of potential delayed complications were discussed with the patient. Return to normal activities tomorrow. Written discharge instructions were provided to the patient. - Resume previous diet. - Continue present medications. - Surgical consultation for consideration of cholecystectomy. Procedure Code(s): --- Professional --- 49809, Endoscopic retrograde cholangiopancreatography (ERCP); with placement of endoscopic stent into biliary or pancreatic duct, including pre- and post-dilation and guide wire passage, when performed, including sphincterotomy, when performed, each stent 34436, Endoscopic retrograde cholangiopancreatography (ERCP); with removal of calculi/debris from biliary/pancreatic duct(s) 05296, Endoscopic catheterization of the biliary ductal system, radiological supervision and interpretation IMPRESSION Ms. 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 Admitted for abnormal liver chemistries, found to have biliary dilation with choledocholithiasis, underwent ERCP c/b post ERCP pancreatitis then ultimately underwent cholecystectomy. Since surgery, her LFTs have normalized, recent RUQ US with normal hepatic and biliary anatomy. She has intermittent RUQ discomfort few times daily since surgery, discussed could be musculoskeletal vs scar tissue but will hopefully subside overtime. She continues to have mild leukocytosis, does not need follow up with hepatology in this regard, will confirm with Dr. Kerr, encouraged regular follow up with PCP/Rheumatology. RECOMMENDATION: ERCP for stent removal tomorrow as scheduled PCP/Paramedic Instructor to continue to monitor LFTs Repeat CBC this week as scheduled Follow up PRN. I spent a total of 35 minutes on the date of the service which included preparing to see the patient, [id number] patient care, completing clinical documentation, obtaining and/or reviewing separately obtained history, performing a medically appropriate examination, counseling and educating the patient/family/caregiver, ordering medications, tests, or procedures, communicating with other HCPs (not separately reported) and independently interpreting results (not separately reported). 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 Nasal crusting - doesn't do any rinses Had ear fullness and but no hearing loss No eye symptoms Had cough with clear sputum No oral ulceration or nasal ulceration She had fever for a month - T max for 99 -100.7 No weight loss She had vomiting due to uremia No neuropathy, no skin rash, no joint pain or joint She felt very sick, she went to urgent care x3 times and ER in her city She had horsy voice Her voice was horsey but now improved Then in early she became aneuric for 24 hours and was vomiting a lot. c ANCA 1:640. pr3 1319. CRP 22.96 N< 1. SD rate >100. Hep neg. TB NEG. GBM abs neg Ct chest 04/12/2021 Smooth symmetric bilateral interlobular septal thickening with edema Tree in bud opacities in right upper lobe Ill defining patchy ground glass opacities in right middle and upper lobes alveolar hemorrhage vs multi focal pneumonia Splenomegaly Kidney biopsy 04/18/2021 26 glomeruli, 21 with crescents and extensive injury. 4 cellula, 17 fibrocellular with ruptured manjarrez 'capsules. 6 with segmental sclerosis and 3 fibrinoid necrosis. One with interlobular artery with fibrinoid necrosis. Neg IF and EM . Still on HD 3 times a week TTS Was pulsed with IV steroid then 04/19 since then Takes her prednisone in the morning Not on PJP prophylaxis Breathing is alrgiht - sinuess are better She is vaccinated but not boosted yet No frequent infections Was started hydralazine during her admission as needed for BP >140/90 She has two kids - tubal ligation predniosone had GI upset but controlled with omeprazole Making little bit of urine Interval history July 08, 2021 Few weeks ago she had acute elevation of Transaminitis - was found to have dilated bile duct- she eventually under went cholecystectomy Had 3 infusions so far - last one scheduled for next Wednesday - no reaction ( 05/16- 05/23-05/30, 06/06 ) She is down to 35 mg 50 mg for two week 45 mg for two week 40 mg for one week 35 mg for one week 30 mg for one week 25 mg for one week 20 mg for one week 20 mg for one week 15 mg for one week She got her evusheld - 06/11/2021 Sinuses are okay - no nasal bleeding or crusting No joint pain, no cough, hemoptysis, skin rash, numbness or tingling sensation Bactrim SS 3 times a week She is getting erythropoietin per her etched circuit processor Hemoglobin was 10 last week (previoulsy was 13) - waiting on repeat testing No fever, chills, night sweats Answers for HPI/ROS submitted by the patient on 07/01/2021 Fever : No Recent Unintentional Weight Change: No Eye Pain: No Eye Redness: No Vision Disturbance: Yes Eye Dryness: No Nose Bleeds: No Sores in your Mouth: No Trouble Swallowing: No Dry Mouth: No Chest Pain: No Leg Swelling: Yes A Cough: No Shortness of Breath: No Pain with Breathing: No Heartburn: No Abdominal Pain: No Diarrhea: No Black Tarry Stools: No Blood in Urine: No Pain or Burning with Urination: No Joint Pain or Stiffness: No Muscle Weakness: No Muscle Aches: No Joint Swelling: No Morning Stiffness in Joints: No A Rash: No Skin Color Changes: No Hair Loss: No Nail Changes: No Headaches: No Numbness: No Memory Loss: No Swollen Glands: No PAST MEDICAL HISTORY: None PAST SURGICAL HISTORY: 2 csection CURRENT MEDICATIONS: Current Outpatient Medications Medication Sig sevelamer (RENAGEL) 800 mg tablet Take 2 tablets by mouth three times daily with meals. NIFEdipine ER (PROCARDIA XL) 60 mg 24 hr tablet Take 1 tablet by mouth twice daily. sulfamethoxazole-trimethoprim (BACTRIM,SEPTRA) 400-80 mg per tablet Take 1 tablet by mouth every Wednesday,Wednesday,Wednesday. Take on days not undergoing dialysis predniSONE (DELTASONE) 20 mg tablet Take 2 tablets by mouth once daily. polyethylene glycol 3350 (MIRALAX) 17 gram/dose powder Take by mouth once daily. Dissolve dose in 4 - 8 ounces of liquid and take as directed. B Complex-Vitamin C-Folic Acid (DIALYVITE 800) 0.8 mg tab Take 0.8 mg by mouth once daily. ergocalciferol 50,000 unit capsule (VITAMIN D2, DRISDOL) Take 1 capsule by mouth two times a week. No current facility-administered medications for this visit. ALLERGIES: Patient has no known allergies. 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 MUSCULOSKELETAL: NEURO: No facial asymmetry ASSESSMENT: This visit was done virtually due to COVID pandemic 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 with renal involvement (HCC) (primary encounter diagnosis) Mita Duarte is a 41 year old female with with new diagnosis of GPA (+ pos cANCA, PR3) manifesting as biopsy proven RPCGN on HD, sinonasal involvement with saddle node deformity and lung nodules presents to established care She denies any cutaneous, nervous, or occular symptoms but reports Hoarseness which improved after steroid initiation. She was pulses on steroid then transitioned to oral 60 mg on 04/19 until present. Her local etched circuit processor is working on getting her RTX approved On exam she has clear saddle nose deformity with extensive bloody crusting in right nostril - unable to visualize if there is any nasal septum perforation or not We discussed treatment, prognosis and overall management with her and her Recently she was noted to have a drop in her hemoglobin (13 to 10) post cholecystectomy - no hemoptysis She received 4 infusions of RTX so far ( 05/16- 05/23-05/30, 06/06/2021) She is down to 35 mg of prednisone and instructed to decrease further based on standard dose regimen per PEXIVAS trial Continue bactrim SS 3 times a week for pjp prophylaxis Patient received Evusheld Will refer her to ENT to rule out possible subglottic stenosis She is vaccinated against COVID infection but not boosted yet (we will do once she is down On her prednisone) Recommend to avoid hydralazine as possible as it can induce AAV and if there is other alternative We will check vit D level after rechecking her level again Nasal cream and sinus rinses baseline Immunoglobulins before RTX was normal She will update me about her hemoglobin I spent a total of 35 minutes on the date of the service which included reviewing chart, interviewing patient, documentation, and placing orders Te Avendaño MD Rheumatology staff July 08, 2021 documented in this encounter [facility] 07-08-2021 Miscellaneous Notes ANSHU Yi Can you please call patient: Her pathology from her gallbladder came back as benign - just chronic inflammation. I'd like to re-check her liver numbers this week or next week. Lab orders placed. The patient is not immune to Hepatitis A or Hepatitis B virus. I recommend vaccination with the Twinrix vaccine at times 0, 1 and 6 months. Patient may schedule nursing visits on or may pursue vaccination locally. Orders placed. [facility] for scheduling if she chooses to schedule at [facility], may be able to coordinate with upcoming appointments. Follow up as scheduled. Thank you Rosaura Kerr MD documented in this encounter [facility] 06-24-2021 Miscellaneous Notes Thank you Kassidy Rebecca can you please ask her to have labs drawn at the closest [facility] lab LU[facility] - orders are in the system. Please call in admission as below and let patient know that hospital will call her when a bed is available. Thank you Rosaura Kerr MD Spoke to patient at this time. She is open to and available for admission Kassidy Robert LPN June 24, 2021 3:22 PM Addended by: ROSAURA KERR on: 06/24/2021 03:01 PM Modules accepted: Orders Thank you Kassidy Can you please call patient back: Her liver injury is severe, and I am not sure what the underlying problem is. However, she needs to be evaluated quickly. This is best done in the hospital. Would she be willing to come in to main campus to be admitted? I would like for her to have labs at a [facility] campus today followed by direct admission to green team, she will be under the care of Dr. Bronson on the liver team. Please let me know if this is something she can do today. Thank you Rosaura Kerr MD [facility] in case we call in direct admit Reason: Acute hepatitis LOS: [address] Bronson Spoke to patient at this time. She states she was placed on a phosphorus binder medication that has made her constipated and she will be starting miralax as of today Last week she received 2 shots of the monoclonal antibodies for covid Otherwise she is feeling fine. Just tired. No nausea, vomiting, or complaints of pain or discomfort No further questions or concerns voiced Kassidy Robert LPN June 24, 2021 1:06 PM Received message from Dr. Avendaño that patient's liver enzymes are newly very high. Can you please ask how she is feeling? Any recent illnesses? New medications? Herbal supplements or over the counter supplements? documented in this encounter [facility] 06-20-2021 History of Present illness Narrative Patient arrives ambulatory for receipt of COVID-19 Monoclonal Antibodies for pre-exposure prophylaxis. Patient is identified by name and date of Previous [facility] Administrations (last 354341 hours) Date/Time Action Medication Dose 06/20/21 1123 Given cilgavimab 300 mg intramuscular injection (EVUSHELD) 300 mg 06/20/21 1123 Given tixagevimab 300 mg intramuscular injection (EVUSHELD) 300 mg Patient is receiving initial dose (Evusheld (tixagevimab 300 mg/cilgevimab 300 mg IM x 1) COVID 19 Result FIELD REPRESENTATIVES DIRECTOR (no units) Date Value 06/18/2021 negative Confirmed negative COVID test prior to injection: Yes Autopopulate last platelet count: Platelet Count Date Value Ref Range Status 05/28/2021 151 150 - 400 k/uL Final If platelets < 20 - do not administer: review with provider If platelets 20-50: apply pressure for 5 minutes after the IM injection If patients > 50: no limitations Patient confirms she received Medication information Fact Sheet and has reviewed prior to treatment. Denies any concerns regarding treatment today. See Doc flow sheet Ambulatory injection and MAR for further documentation Patient is declines AVS and will see information in My Chart. Patient denies any other questions or concerns prior to discharge. Patient is discharged home ambulatory. documented in this encounter [facility] 06-06-2021 History of Present illness Narrative Since your last infusion, have you: 1. Had any major change in your health (including new diagnosis of cancer, COPD or cogestive heart failure? No 2. Been hospitalized? No 3. Had any infections? No 4. Taking antibiotics/antivirals/antifungals for current infection? No 5. Had surgery or do you have upcoming surgery? No 6. Received any live vaccines in the last four weeks? No 7. Worsening GI symptoms/abnormal pain/bloating No In the past 7 days have you had: 1. Fevers/chills/night sweats? No 2. New cough or cold symptoms or sore throat? No 3. Nausea/vomiting/diarrhea? No 4. Unusual swelling of your ankles of feet? No 5. Burning/blood with urination or urinary frequency? No 6. New weakness/numbness/stumbling falls? No 7. New rash or open sores? No documented in this encounter [facility] 04-21-2021 Note [facility] [place] 04-18-2021 Note [facility] [place] [facility] 2021 Note [facility] [place] [facility] 04-12-2021 Note [facility] [place] [facility] 04-12-2021 Note [facility] [place] [facility] 04-12-2021 Note [facility] [place] [facility] Evaluation note Skin: Warm and dry, paleENMT: mucous membranes moist, no apparent injury, no lesions seenHead/Neck: Facial hirsutismRespiratory/Thorax: Patent airways, CTAB, normal breath sounds with good chest expansion, thorax symmetricNeurological: alert and oriented x3, intact senses, motor, response, normal strengthExtremities: normal extremities, no cyanosis, contusions or wounds, no clubbing. Bilateral lower extremity +1 pitting edema up to the kneesCardiovascular: Regular, rate and rhythm, no murmurs, 2+ equal pulses of the extremities, normal S 1and S 2Gastrointestinal: Nondistended, soft, non-tender, no rebound tenderness or guarding, no masses palpable, no organomegaly, +BS, no bruitsGenitourinary: Garrett catheter in placePsychological: Appropriate mood and behaviorConstitutional: obese, awake/alert/oriented x3, no distress, alert and cooperative, on RA [facility] Evaluation note Diagnosis 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 with renal involvement (HCC)- Primary 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 [facility] [place] [facility]* Diagnosis Encounter for prophylactic measures, unspecified [facility] [place] [facility]* Diagnosis Acute hepatitis- Primary Acute and subacute necrosis of liver documented in this encounter [facility] note* Diagnosis Encounter for removal of biliary stent- Primary documented in this encounter [facility] note* Diagnosis Choledocholithiasis- Primary Calculus of bile duct without mention of cholecystitis or obstruction documented in this encounter [facility] note* Diagnosis 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 with renal involvement (HCC)- Primary 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 Encounter for long-term (current) use of steroids Chronic sinusitis, unspecified location Encounter for prophylactic measures, unspecified Vitamin D deficiency Unspecified vitamin D deficiency documented in this encounter [facility] note* Diagnosis S/P cholecystectomy Other acquired absence of organ documented in this encounter [facility] note* Diagnosis Infection in abdomen (HCC) Unspecified peritonitis documented in this encounter [facility] note* Diagnosis S/P cholecystectomy- Primary Other acquired absence of organ Acute hepatitis Acute and subacute necrosis of liver Hepatitis B surface antigen positive Other and unspecified nonspecific immunological findings Hospital discharge follow-up Other follow-up examination documented in this encounter [facility] note* Diagnosis Choledocholithiasis- Primary Calculus of bile duct without mention of cholecystitis or obstruction Choledocholithiasis Calculus of bile duct without mention of cholecystitis or obstruction documented in this encounter [facility] note* Diagnosis Hoarseness- Primary Dysphonia 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 with renal involvement (HCC) 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 Encounter for long-term (current) use of steroids Encounter for prophylactic measures, unspecified Acute rhinitis Acute nasopharyngitis (common cold) Choledocholithiasis Calculus of bile duct without mention of cholecystitis or obstruction [facility] [place] [facility] Diagnosis Encounter for removal of biliary stent [facility] [place] noteNo assessment information availableUniversity Hospitals [facility] Work Phone: Evaluation note* Diagnosis 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 with renal involvement (HCC)- Primary 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 SOB (shortness of breath) Shortness of breath 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 Encounter for long-term (current) use of steroids Chronic sinusitis, unspecified location Vitamin D deficiency Unspecified vitamin D deficiency [facility] Hypertension, unspecified type- Primary [facility] Pre-transplant evaluation for kidney transplant- Primary Other specified pre-operative examination [facility] [place] [facility]* Diagnosis Pre-transplant evaluation for kidney transplant- Primary Other specified pre-operative examination Chronic renal failure, stage 5 (HCC) [facility] [place] [facility]* Diagnosis COVID-19 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 with renal involvement (HCC) 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 [facility] Pre-transplant evaluation for kidney transplant- Primary Other specified pre-operative examination [facility] Diagnosis Obesity, Class I, BMI 30-34.9- Primary Obesity, unspecified Awaiting organ transplant Awaiting organ transplant status Dietary counseling and surveillance Dietary surveillance and counseling [facility] Pre-transplant evaluation for ESRD (end stage renal disease)- Primary Other specified pre-operative examination [facility]D on dialysis (HCC)- Primary End stage renal disease Pre-transplant evaluation for ESRD (end stage renal disease) Other specified pre-operative examination [facility] [place] [facility]* Diagnosis Pre-transplant evaluation for end stage renal disease- Primary Other specified pre-operative examination 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 with renal involvement (HCC) 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 [facility] Diagnosis Encounter for examination for insurance purposes- Primary Other general medical examination for administrative purposes Encounter for screening for cardiovascular disorders Screening for other and unspecified cardiovascular conditions Awaiting organ transplant Awaiting organ transplant status Pre-transplant evaluation for end stage renal disease Other specified pre-operative examination Pre-operative cardiovascular examination [facility] [place] [facility]* Diagnosis 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 with renal involvement (HCC)- Primary 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 SOB (shortness of breath) Shortness of breath group home current use of systemic steroids Encounter for long-term (current) use of steroids Chronic sinusitis, unspecified location Vitamin D deficiency Unspecified vitamin D deficiency [facility] [place] [facility]* Diagnosis Pre-transplant evaluation for kidney transplant Other specified pre-operative examination [facility] [place] [facility]* Diagnosis Abnormal chest CT- Primary Nonspecific (abnormal) findings on radiological and other examination of other intrathoracic organs Pre-transplant evaluation for end stage renal disease Other specified pre-operative examination [facility] [place] [facility]* Diagnosis 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 with renal involvement (HCC)- Primary 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 [facility] [place] [facility]* Diagnosis Pre-transplant evaluation for kidney transplant- Primary Other specified pre-operative examination 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) End stage renal disease (HCC) End stage renal disease Peritoneal dialysis status (HCC) Renal dialysis status [facility] [place] [facility]* Diagnosis RUQ pain- Primary Abdominal pain, right upper quadrant [facility] [place] [facility]* Diagnosis RUQ pain [R10.11 (ICD-10-CM)]- Primary Abdominal pain, right upper quadrant [facility] [place] [facility]* Diagnosis 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 with renal involvement (HCC)- Primary 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 Chronic sinusitis, unspecified location Abdominal pain, unspecified abdominal location Leukocytosis, unspecified type [facility] [place] [facility]* Diagnosis Leukocytosis, unspecified type- Primary 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 with renal involvement (HCC) 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 [facility] [place] [facility]* Diagnosis 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 with renal involvement (HCC)- Primary 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 Chronic sinusitis, unspecified location Leukocytosis, unspecified type Bandemia Anemia, unspecified type [facility] [place] [facility]* Diagnosis Recurrent ventral hernia- Primary Incisional hernia without mention of obstruction or gangrene [facility] [place] [facility]* Diagnosis 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 with renal involvement (HCC)- Primary 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 Chronic sinusitis, unspecified location High risk medication use Encounter for long-term (current) use of other medications [facility] [place] [facility]* Diagnosis Cerebrovascular accident (CVA), unspecified mechanism (HCC)- Primary Seizure (HCC) Other convulsions [facility] [place] [facility]* 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 Encounter for long-term (current) use of steroids [facility] [place] [facility]* Diagnosis SOB (shortness of breath) Shortness of breath 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 with renal involvement (HCC) 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 group home current use of systemic steroids Encounter for long-term (current) use of steroids Chronic sinusitis, unspecified location Vitamin D deficiency Unspecified vitamin D deficiency [facility] [place] [facility]* Diagnosis Cough [facility] [place] [facility]* Diagnosis Localization-related (focal) (partial) symptomatic epilepsy and epileptic syndromes with complex partial seizures, not intractable, without status epilepticus (HCC)- Primary [facility] [place] [facility]* Diagnosis Nausea and vomiting, unspecified vomiting type- Primary [facility] [place] [facility]* Diagnosis 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 with renal involvement (HCC)- Primary 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 Fever, unspecified fever cause Cough, unspecified type Macrocytic anemia Unspecified deficiency anemia [facility] [place] [facility]* Diagnosis Nausea and vomiting, unspecified vomiting type- Primary [facility] [place] [facility]* Diagnosis Chronic cough- Primary Cough LPRD (laryngopharyngeal reflux disease) Other diseases of larynx Lingual tonsil hypertrophy Hypertrophy of tonsils alone Bleeding nose Epistaxis [facility] [place] [facility]* Diagnosis Cerebrovascular accident (CVA), unspecified mechanism (HCC)- Primary [facility] [place] [facility]* Diagnosis Cryptogenic stroke (HCC)- Primary Unspecified cerebral artery occlusion with cerebral infarction Mixed hyperlipidemia 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) Nonintractable epilepsy without status epilepticus, unspecified epilepsy type (HCC) Cerebrovascular accident (CVA), unspecified mechanism (HCC) [facility] [place] [facility]* Diagnosis Nausea and vomiting, unspecified vomiting type Cerebrovascular accident (CVA), unspecified mechanism (HCC) [facility] RUQ pain- Primary Abdominal pain, right upper quadrant Cerebrovascular accident (CVA), unspecified mechanism (HCC) [facility]* Diagnosis 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 with renal involvement (HCC)- Primary 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 Anemia, unspecified type Cerebrovascular accident (CVA), unspecified mechanism (HCC) [facility]* Diagnosis Pre-transplant evaluation for ESRD (end stage renal disease)- Primary Other specified pre-operative examination Cerebrovascular accident (CVA), unspecified mechanism (HCC) [facility]* Diagnosis Pre-transplant evaluation for ESRD (end stage renal disease)- Primary Other specified pre-operative examination Cerebrovascular accident (CVA), unspecified mechanism (HCC) [facility] Diagnosis Pre-transplant evaluation for kidney transplant- Primary Other specified pre-operative examination Cerebrovascular accident (CVA), unspecified mechanism (HCC) [facility]* Diagnosis Cryptogenic stroke (HCC) [I63.9]- Primary Unspecified cerebral artery occlusion with cerebral infarction Cerebrovascular accident (CVA), unspecified mechanism (HCC) [facility]* Diagnosis Pre-transplant evaluation for ESRD (end stage renal disease)- Primary Other specified pre-operative examination [facility] Diagnosis Anemia, unspecified type- Primary Nausea and vomiting, unspecified vomiting type Pre-transplant evaluation for end stage renal disease Other specified pre-operative examination [facility] Diagnosis Vaginal pain- Primary Unspecified symptom associated with female genital organs RUQ pain Abdominal pain, right upper quadrant High-tone pelvic floor dysfunction in female [facility]* Diagnosis Encounter for other preprocedural examination [facility]* Diagnosis Anemia in chronic kidney disease, on chronic dialysis (HCC)- Primary [facility]* Diagnosis Anemia in chronic kidney disease, on chronic dialysis (HCC)- Primary 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 with renal involvement (HCC) 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 [facility] Diagnosis Anemia in chronic kidney disease, on chronic dialysis (HCC)- Primary [facility] Diagnosis Anemia in chronic kidney disease, on chronic dialysis (HCC)- Primary [facility]* Diagnosis Muscle weakness- Primary Muscle weakness (generalized) High-tone pelvic floor dysfunction in female [facility]* Diagnosis Muscle spasm- Primary Spasm of muscle [facility]* Diagnosis Anemia in chronic kidney disease, on chronic dialysis (HCC)- Primary [facility]* Diagnosis Nausea- Primary Nausea alone [facility] Diagnosis Anemia in chronic kidney disease, on chronic dialysis (HCC)- Primary [facility]* Diagnosis Fever, unspecified fever cause Cough, unspecified type 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 with renal involvement (HCC) 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 [facility] Diagnosis Anemia, unspecified type 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 with renal involvement ([facility]) 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 [facility] Diagnosis Anemia in chronic kidney disease, on chronic dialysis (HCC)- Primary [facility]* Diagnosis PND (post-nasal drip)- Primary Postnasal drip Other rhinitis [facility]* Diagnosis Anemia in chronic kidney disease, on chronic dialysis (HCC)- Primary [facility]* Diagnosis Anemia in chronic kidney disease, on chronic dialysis (HCC)- Primary Cryptogenic stroke (HCC) Unspecified cerebral artery occlusion with cerebral infarction [facility] Diagnosis Cryptogenic stroke (HCC)- Primary Unspecified cerebral artery occlusion with cerebral infarction [facility] Diagnosis Anemia in chronic kidney disease, on chronic dialysis (HCC)- Primary [facility]* Diagnosis Anemia in chronic kidney disease, on chronic dialysis (HCC)- Primary [facility]* Diagnosis Localization-related (focal) (partial) symptomatic epilepsy and epileptic syndromes with complex partial seizures, not intractable, without status epilepticus (HCC)- Primary [facility]* Diagnosis Anemia in chronic kidney disease, on chronic dialysis (HCC)- Primary [facility] Diagnosis Anemia in chronic kidney disease, on chronic dialysis (HCC)- Primary [facility] Diagnosis Localization-related (focal) (partial) symptomatic epilepsy and epileptic syndromes with complex partial seizures, not intractable, without status epilepticus (HCC) [facility]* Diagnosis Anemia in chronic kidney disease, on chronic dialysis (HCC)- Primary 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 with renal involvement (HCC) 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 [facility] Diagnosis 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 with renal involvement (HCC)- Primary 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 Chronic sinusitis, unspecified location High risk medication use Encounter for long-term (current) use of other medications [facility]* Diagnosis Anemia in chronic kidney disease, on chronic dialysis (HCC)- Primary [facility]* Diagnosis 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 with renal involvement (HCC) 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 [facility] Diagnosis Anemia in chronic kidney disease, on chronic dialysis (HCC)- Primary [facility]* Diagnosis Anemia in chronic kidney disease, on chronic dialysis (HCC)- Primary 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 with renal involvement (HCC) 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 [facility]* Diagnosis Anemia in chronic kidney disease, on chronic dialysis (HCC)- Primary [facility]* Diagnosis Anemia in chronic kidney disease, on chronic dialysis (HCC)- Primary [facility]* Diagnosis Anemia in chronic kidney disease, on chronic dialysis (HCC)- Primary [facility]* Diagnosis Pre-transplant evaluation for kidney transplant Other specified pre-operative examination [facility] Diagnosis Chronic renal failure, unspecified CKD stage- Primary Pre-transplant evaluation for end stage renal disease Other specified pre-operative examination [facility] Diagnosis Pre-transplant evaluation for ESRD (end stage renal disease)- Primary Other specified pre-operative examination [facility] Diagnosis History of stroke- Primary Transient ischemic attack (TIA), and cerebral infarction without residual deficits TIA (transient ischemic attack) Unspecified transient cerebral ischemia [facility] Diagnosis TIA (transient ischemic attack)- Primary Unspecified transient cerebral ischemia ESRD on dialysis (HCC) End stage renal disease 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) Pre-transplant evaluation for ESRD (end stage renal disease) Other specified pre-operative examination [facility] Diagnosis Pre-transplant evaluation for ESRD (end stage renal disease)- Primary Other specified pre-operative examination Pre-transplant evaluation for kidney transplant Other specified pre-operative examination 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 with renal involvement (HCC) 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 Localization-related (focal) (partial) symptomatic epilepsy and epileptic syndromes with complex partial seizures, not intractable, without status epilepticus (HCC) [facility] Diagnosis Pre-transplant evaluation for end stage renal disease- Primary Other specified pre-operative examination [facility] Diagnosis Pre-transplant evaluation for ESRD (end stage renal disease)- Primary Other specified pre-operative examination [facility]* Diagnosis Chronic renal failure, unspecified CKD stage Pre-transplant evaluation for end stage renal disease Other specified pre-operative examination [facility]* Diagnosis Anemia in chronic kidney disease, on chronic dialysis (HCC)- Primary [facility] Diagnosis Anemia in chronic kidney disease, on chronic dialysis (HCC)- Primary [facility] Diagnosis Encounter for other preprocedural examination- Primary Pre-operative cardiovascular examination Pre-transplant evaluation for ESRD (end stage renal disease) Other specified pre-operative examination [facility] Diagnosis Anemia in chronic kidney disease, on chronic dialysis (HCC)- Primary [facility] Diagnosis Anemia in chronic kidney disease, on chronic dialysis (HCC)- Primary 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 with renal involvement (HCC) 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 [facility] Additional Orders:Additional Instructions: Please follow up with your primary care provider within 3 days for hospital follow up. Please call to make this appointment. Please follow-up with the etched circuit processor Dr. Goetz as directed by her office. Please call to make this appointment.Please follow-upwith the vascular specialist as directed by their office. Please call to make this appointment.Please take your medications as prescribed. Please take insulin lispro 3 times a day before meals as needed based off of your fingersticks.Please take prednisone 60 mg once daily (20 mg tablets x3 once daily).Please take metoprolol succinate 50 mg once daily.Please take nifedipine 60 mg once daily.Please take hydralazine 10 mg 3 times a day.Please take Mucinex twice daily as needed for cough.Please take Zofran 1 tablet 4 mg every 6 hours as needed for nausea or vomiting.If you have any new or worsening symptoms seek medical attention.Thank you for allowing us to participate in your care!-[facility] [place] Inpatient Medicine Teaching Service. * Follow Up Appointment 1:Physician/Dept/Service: PCPChristy for Referral: Hospital follow up, new hemodialysis, c-anca vasculitisCall to Schedule in: 2- 3 days * Follow Up Appointment 2:Physician/Dept/Service: Dr. Bianca Kc- NephrologyReagnes for Referral:Hospital follow up, new hemodialysis, c-anca vasculitisPhone Number: [phone] * Follow Up Appointment 3:Physician/Dept/Service: [facility] Additional Instructions Apply warm compresses to the area May take ednf-owe-yupleko medication for discomfort Follow-up with vascular surgery Return to the ER for worsening redness swelling chest pain shortness of breath palpitations high fever or [facility] Phone: Reason for referral (narrative)* Outpatient Procedure (Routine) - Pending Review Specialty Diagnoses / Procedures Referred By Rowan pacheco Referred To [facility] Diagnoses Encounter for removal of biliary stent Procedures ERCP ERCP REMOVE FOREIGN BODY/STENT BILIARY/PANC DUCT Shellie Garcia APRN.[address] [address] [facility] [address] [place] [address] Referral ID Status Reason Start Date Expiration Date Visits Requested Visits Authorized [id number] Pending Review Auto-Generat ed Referral 06/28/2021 06/28/2022 1 1 [facility] Diagnostic Procedure Only (Routine) - Closed Specialty Diagnoses / Procedures Referred By Contac t Referred To Contact US IMAGING Diagnoses S/P cholecystectomy Procedures US ABD RT UPPER QUADRANT US ABDOMINAL REAL TIME W/IMAGE LIMITED Rosaura Kerr MD [address] [place] [address] Us Imaging Referral ID Status Reason Start Date Expiration Date V isits Requested Visits Authorized [id number] Closed Auto-Generate d Referral 07/16/2021 08/15/2022 1 1 [facility] ([facility] Outpatient Procedure (Routine) - Pending Review Specialty Diagnoses / Procedures Referred By Luhac t Referred To Contact [facility] Diagnoses 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 with renal involvement (HCC) Procedures SPIROMETRY - BASELINE AND POST DILATOR BRNCDILAT RSPSE SPMTRY PRE&POST-BRNCDILAT ADMSuyapa Reyes MD [address] [place] [address] [facility] [address] [place], [place] [id number] Referral ID Status Reason Start Date Expiration Date Visits Requested Visits Authorized [id number] Pending Review Auto-Generat ed Referral 08/06/2021 09/05/2022 1 1 [facility] ([facility] Outpatient Procedure (Routine) - Closed Specialty Diagnoses / Procedures Referred By Contac t Referred To Contact [facility] Diagnoses Encounter for removal of biliary stent Procedures ERCP ERCP REMOVE FOREIGN BODY/STENT BILIARY/PANC DUCT Shellie Garcia APRN.CNP [address] [phone] [facility] [address] [place] [address] Referral ID Status Reason Start Date Expiration Date V isits Requested Visits Authorized [id number] Closed Auto-Generate d Referral 06/28/2021 06/28/2022 1 1 [facility] ([facility] Diagnostic Procedure Only (Routine) - Pending Review Specialty Diagnoses / Procedures Referred By Rowan t Referred To Contact MOLECULAR & FUNCTIONAL IMAGING Diagnoses Encounter for screening for cardiovascular disorders Pre-transplant evaluation for end stage renal disease Pre-operative cardiovascular examination Procedures NM CARDIAC PERF STRESS/PHARM MYOCARDIAL SPECT MULTIPLE STUDIES Racquel Burgess MD [address] [phone] Molecular & Functional Imaging [address] [place] [address] Referral ID Status Reason Start Date Expiration Date Visits Requested Visits Authorized [id number] Pending Review Auto-Generat ed Referral 11/11/2021 12/04/2022 1 1 * Outpatient Procedure (Routine) - Pending Review Specialty Diagnoses / Procedures Referred By Rowan t Referred To Contact [facility] Diagnoses Pre-transplant evaluation for end stage renal disease Pre-operative cardiovascular examination Procedures ECHO ECHO TTHRC R-T 2D W/WOM-MODE COMPL SPEC&COLR D Racquel Burgess MD [address] [address] [facility] [address] [place], [place] [phone] Referral ID Status Reason Start Date Expiration Date Visits Requested Visits Authorized [id number] Pending Review Auto-Generat ed Referral 11/11/2021 11/04/2022 1 1 * Consult, Test, Treat (Routine) - Authorized Specialty Diagnoses / Procedures Referred By Rowan pacheco Referred To Contact Gastroenterology Diagnoses Awaiting organ transplant Pre-transplant evaluation for end stage renal disease Procedures CONSULT TO GASTROENTEROLOGY OFFICE/OUTPATIENT NEW HIGH MDM 60-74 MINUTES Racquel Burgess MD [address] [place] [address] Referral ID Status Reason Start Date Expiration Date Visits Requested Visits Authorized [id number] Authorized PCP Requested Referral 11/11/2021 11/04/2022 1 1 [facility] Outpatient Procedure (Routine) - Closed Specialty Diagnoses / Procedures Referred By Rowan pacheco Referred To [facility] Diagnoses 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 with renal involvement (HCC) Procedures SPIROMETRY WITH DILATOR IF OBSTRUCTED BRNCDILAT RSPSE SPMTRY PRE&POST-BRNCDILAT ADMN Sue Montenegro DO [address] [phone] [facility] [address] [place] [address] Referral ID Status Reason Start Date Expiration Date V isits Requested Visits Authorized [id number] Closed Auto-Generate d Referral 02/11/2022 03/13/2023 1 1 [facility] Outpatient Procedure (Routine) - Authorized Specialty Diagnoses / Procedures Referred By Rowan pacheco Referred To Contact [facility] Diagnoses Nausea and vomiting, unspecified vomiting type Procedures EGD DIAGNOSTIC ESOPHAGOGASTRODUODENOSC OPY TRANSORAL DIAGNOSTIC Philip Escalante MD [address] [place] [address] [facility] [address] [place] [address] Referral ID Status Reason Start Date Expiration Date Visits Requested Visits Authorized [id number] Authorized Auto-Generat ed Referral 11/26/2022 11/27/2023 1 1 [facility] Outpatient Procedure (Routine) - Authorized Specialty Diagnoses / Procedures Referred By Contac t Referred To Contact HEART [facility] [place] Diagnoses Cerebrovascular accident (CVA), unspecified mechanism (HCC) Procedures ECG COMPLETE ECG ROUTINE ECG W/LEAST 12 LDS W/I&R Daniel Toro MD [address] [place] [address] [place] [address] Referral ID Status Reason Start Date Expiration Date Visits Requested Visits Authorized [id number] Authorized Auto-Generat ed Referral 12/17/2022 12/17/2023 1 1 [facility] ([facility] Outpatient Procedure (Routine) - Closed Specialty Diagnoses / Procedures [facility] Diagnoses Nausea and vomiting, unspecified vomiting type Procedures EGD DIAGNOSTIC ESOPHAGOGASTRODUODENOSC OPY TRANSORAL DIAGNOSTIC Philip Escalante MD [address] [place] [address] [place] [address] Referral ID Status Reason Start Date Expiration Date V isits Requested Visits Authorized [id number] Closed Auto-Generate d Referral 11/26/2022 11/27/2023 1 1 [facility] Diagnostic Procedure Only (Routine) - Closed Specialty Diagnoses / Procedures [facility]erred To Contact MO[facility] & FUNCTIONAL IMAGING Diagnoses Encounter for other preprocedural examination Procedures NM CARDIAC PERF STRESS/EXERCISE MYOCARDIAL SPECT MULTIPLE STUDIES Ni [place] APRN.NOE [address] [phone] Molecular & Functional Imaging [address] [phone] Referral ID Status Reason Start Date Expiration Date V isits Requested Visits Authorized [id number] Closed Auto-Generated Referral Patient Cleared - INN Insurance Found 12/08/2021 01/07/2023 1 1 [facility] Narrative* Diagnostic Procedure Only (Routine) - Closed Specialty Diagnoses / Procedures Referred By Contac t Referred To Contact US IMAGING Diagnoses S/P cholecystectomy Procedures US ABD RT UPPER QUADRANT US ABDOMINAL REAL TIME W/IMAGE LIMITED Rosaura Kerr MD [address] [place] [address] Us Imaging Referral ID Status Reason Start Date Expiration Date V isits Requested Visits Authorized [id number] Closed Auto-Generate d Referral 07/16/2021 08/15/2022 1 1 [facility] N[facility]* Outpatient Procedure (Routine) - Closed Specialty Diagnoses / Procedures Referred By Contac t Referred To Contact [facility] Diagnoses Encounter for removal of biliary stent Procedures ERCP ERCP REMOVE FOREIGN BODY/STENT BILIARY/PANC DUCT Shellie Garcia APRN.CNP [address] [place] [address] [facility] [place] [address] Referral ID Status Reason Start Date Expiration Date V isits Requested Visits Authorized [id number] Closed Auto-Generate d Referral 06/28/2021 06/28/2022 1 1 [facility] N[facility]* Outpatient Procedure (Routine) - Closed Specialty Diagnoses / Procedures Referred By Contac t Referred To Contact [facility] Diagnoses Nausea and vomiting, unspecified vomiting type Procedures EGD DIAGNOSTIC ESOPHAGOGASTRODUODENOSC OPY TRANSORAL DIAGNOSTIC Philip Escalante MD [address] [phone] [facility] [place] [place] [address] Referral ID Status Reason Start Date Expiration Date V isits Requested Visits Authorized [id number] Closed Auto-Generate d Referral 11/26/2022 11/27/2023 1 1 [facility] N[facility]* Diagnostic Procedure Only (Routine) - Closed Specialty Diagnoses / Procedures Referred By Rowan pacheco Referred To Contact MOLECULAR & FUNCTIONAL [facility]AGING Diagnoses Encounter for other preprocedural examination Procedures NM CARDIAC PERF STRESS/EXERCISE MYOCARDIAL SPECT MULTIPLE STUDIES Ni [place] APRN.CNP [address] [place] [address] Molecular & Functional Imaging [address] [phone] Referral ID Status Reason Start Date Expiration Date V isits Requested Visits Authorized [id number] Closed Auto-Generated Referral Patient Cleared - INN Insurance Found 12/08/2021 01/07/2023 1 1 [facility] Reason for Referral Specialty Diagnoses / Procedures Referred By Rowan pacheco Referred To Contact Ent - Otolaryngology Diagnoses 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 with renal involvement (HCC) 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 Chronic sinusitis, unspecified location Encounter for prophylactic measures, unspecified Procedures CONSULT TO ENT OFFICE/OUTPATIENT [facility] 60-74 MINUTES Te Avendaño MD [address] [place] [address] Referral ID Status Reason Start Date Expiration Date Visits Requested Visits Authorized [id number] Authorized PCP Requested Referral 07/08/2021 07/08/2022 1 1 Specialty Diagnoses / Procedures Referred By Rowan pacheco Referred To Contact CT IMAGING Diagnoses Infection in abdomen (HCC) Procedures CT ABD/PEL W IVCON CT ABD & PELVIS W/CONTRAST Aaron Leon MD [address] [place] [address] Ct Imaging Referral ID Status Reason Start Date Expiration Date Visits Requested Visits Authorized [id number] Pending Review Auto-Generat ed Referral 07/21/2021 08/20/2022 1 1 Specialty Diagnoses / Procedures Referred By Rowan pacheco Referred To Contact CT IMAGING Diagnoses SOB (shortness of breath) 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 with renal involvement (HCC) 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 Chronic sinusitis, unspecified location Vitamin D deficiency Procedures CT CHEST WO IVCON DIAGNOSTIC COMPUTED TOMOGRAPHY THORAX W/O CNTRST Te Avendaño MD [phone] [address] Imaging Referral ID Status Reason Start Date Expiration Date Visits Requested Visits Authorized [id number] Pending Review Auto-Generat ed Referral 09/08/2021 10/08/2022 1 1 Specialty Diagnoses / Procedures Referred By Contac t Referred To Contact TRANSPLANT Diagnoses Hypertension, unspecified type Procedures CONSULT TO TRANSPLANT CENTER OFFICE/OUTPATIENT [facility] MDM 60-74 MINUTES CHEST X-RAY, FRONT&LAT ECG ROUTINE ECG W/LEAST 12 LDS TRCG ONLY W/O I&R CT ANGIOGRAPHY CHEST W/CONTRAST/NONCONTRAST CT ABDOMEN W & W/O CONTRAST Delma Osorio [address] [place] [address] [facility] [address] [address] Referral ID Status Reason Start Date Expiration Date Visits Requested Visits Authorized [id number] Outside PCP Financial Clearance Required - [employer] Payor 09/23/2021 09/23/2022 99 [phone] Specialty Diagnoses / Procedures Referred By Contac t Referred To Contact CT IMAGING Diagnoses Chronic renal failure, stage 5 (HCC) Pre-transplant evaluation for kidney transplant Procedures CT ABD/PEL WO IVCON CT ABD & PELVIS W/O CONTRAST Arvin Rollins MD [address] [facility] [place] [address] Ct Imaging Referral ID Status Reason Start Date Expiration Date Visits Requested Visits Authorized [id number] Pending Review Auto-Generat ed Referral 10/08/2021 10/31/2022 1 1 Specialty Diagnoses / Procedures Referred By Contac t Referred To Contact Gastroenterology Diagnoses RUQ pain Procedures CONSULT TO GASTROENTEROLOGY OFFICE/OUTPATIENT [facility] MDM 60-74 MINUTES Brenna Girard APRN.LIGHTING SPECIALIST [address] [place] [address] Referral ID Status Reason Start Date Expiration Date Visits Requested Visits Authorized [id number] Authorized PCP Requested Referral 03/11/2023 1 1 Specialty Diagnoses / Procedures Referred By Contac t Referred To Contact Gastroenterology Diagnoses 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 with renal involvement (HCC) Chronic sinusitis, unspecified location Abdominal pain, unspecified abdominal location Procedures CONSULT TO GASTROENTEROLOGY OFFICE/OUTPATIENT [facility] 60-74 MINUTES Te Avendaño MD [address] [phone] Referral ID Status Reason Start Date Expiration Date Visits Requested Visits Authorized [id number] Authorized PCP Requested Referral 04/21/2022 04/21/2023 1 1 Specialty Diagnoses / Procedures Referred By Contac t Referred To Contact Diagnoses 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 with renal involvement (HCC) Chronic sinusitis, unspecified location Leukocytosis, unspecified type Procedures CONSULT TO HEMATOLOGY/ONCOLOGY OFFICE/OUTPATIENT [facility] 60-74 MINUTES eT Avendaño MD [address] [facility] [place] [phone] Referral ID Status Reason Start Date Expiration Date Visits Requested Visits Authorized [id number] Authorized PCP Requested Referral 04/21/2022 04/21/2023 1 1 Specialty Diagnoses / Procedures Referred By Contac t Referred To Contact Neurology Diagnoses Cerebrovascular accident (CVA), unspecified mechanism (HCC) Seizure (HCC) Procedures CONSULT TO NEUROLOGY OFFICE/OUTPATIENT [facility] 60-74 MINUTES Lauren Rodriguez MD [address] [facility] [place] [address] [phone] Referral ID Status Reason Start Date Expiration Date Visits Requested Visits Authorized [id number] Authorized PCP Requested Referral 10/01/2022 10/01/2023 1 1 Referral ID Status Reason Start Date Expiration Date V isits Requested Visits Authorized [id number] Closed Auto-Generate d Referral 09/08/2021 01/30/2022 1 1 Specialty Diagnoses / Procedures Referred By Contac t Referred To Contact Ryder Sykes APRN.CNP [address] [phone] Referral ID Status Reason Start Date Expiration Date Visits Re quested Visits Authorized [id number] Closed 1 1 Specialty Diagnoses / Procedures Referred By Contac t Referred To Contact CT IMAGING Diagnoses Fever, unspecified fever cause Cough, unspecified type 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 with renal involvement (HCC) Procedures CT CHEST WO IVCON DIAGNOSTIC COMPUTED TOMOGRAPHY THORAX W/O Te Horowitz MD [address] [place] [address] Ct Imaging [address] [address] Referral ID Status Reason Start Date Expiration Date Visits Requested Visits Authorized [id number] Pending Review Auto-Generat ed Referral 11/24/2022 12/24/2023 1 1 Specialty Diagnoses / Procedures Referred By Contac t Referred To Contact Diagnoses Cryptogenic stroke (HCC) Procedures PROVIDER ORDERED FOLLOW UP OFFICE/OUTPATIENT [facility] MDM 60-74 MINUTES Meliton Mosqueda MD [address] [place] [address] Referral ID Status Reason Start Date Expiration Date Visits Requested Visits Authorized [id number] Authorized PCP Requested Referral 05/27/2023 11/26/2023 1 1 Specialty Diagnoses / Procedures Referred By Contac t Referred To Contact Diagnoses Cryptogenic stroke (HCC) Procedures CONSULT TO ELECTROPHYSIOLOGY OFFICE/OUTPATIENT [facility] MDM 60-74 MINUTES Meliton Mosqueda MD [address] [place] [address] Referral ID Status Reason Start Date Expiration Date Visits Requested Visits Authorized [id number] Authorized PCP Requested Referral 11/26/2022 11/26/2023 1 1 Specialty Diagnoses / Procedures Referred By Contac t Referred To Contact Urology Diagnoses RUQ pain Procedures CONSULT TO UROLOGY OFFICE/OUTPATIENT NEW HIGH MDM 60-74 MINUTES Philip Escalante MD [address] [place] [address] Referral ID Status Reason Start Date Expiration Date Visits Requested Visits Authorized [id number] Authorized PCP Requested Referral 12/24/2023 1 1 Specialty Diagnoses / Procedures Referred By Contac t Referred To Contact [facility] Diagnoses High-tone pelvic floor dysfunction in female Procedures CONSULT TO PHYSICAL THERAPY PHYSICAL THERAPY EVALUATION HIGH COMPLEX 45 MINS Slopnick, Fercho, MD [address] [place] [address] [facility] [address] [place] [address] Referral ID Status Reason Start Date Expiration Date Visits Requested Visits Authorized [id number] Pending Review Auto-Generat ed Referral 3 01/12/2024 1 1 Referral ID Status Reason Start Date Expiration Date V isits Requested Visits Authorized [id number] Authorized 05/28/2023 05/26/2024 1 1 Specialty Diagnoses / Procedures Referred By Contac t Referred To Contact Diagnoses Localization-related (focal) (partial) symptomatic epilepsy and epileptic syndromes with complex partial seizures, not intractable, without status epilepticus (HCC) Procedures PROVIDER ORDERED FOLLOW UP OFFICE/OUTPATIENT NEW HIGH MDM 60 MINUTES Charity Grissom PA-C [address] [facility] [address] [place] [address] Referral ID Status Reason Start Date Expiration Date Visits Requested Visits Authorized [id number] Authorized PCP Requested Referral 12/08/2023 06/06/2024 1 1 Specialty Diagnoses / Procedures Referred By Contac t Referred To Contact CT IMAGING Diagnoses Chronic renal failure, unspecified CKD stage Pre-transplant evaluation for end stage renal disease Procedures CT ABD/PEL WO IVCON CT ABD & PELVIS W/O CONTRAST Cathy Liu PA-C [address] [place] [address]/[address] [address] [address] Imaging [place] [address] Referral ID Status Reason Start Date Expiration Date Visits Requested Visits Authorized [id number] Authorized Auto-Generat ed Referral 10/18/2023 11/09/2024 1 1 Referral ID Status Reason Start Date Expiration Date V isits Requested Visits Authorized [id number] Closed Auto-Generate d Referral 10/18/2023 11/09/2024 1 1 Summary Purpose Family History No Family History Records Found Relationship Condition Age at Onset Recorded Date/T ajith Not Specified Diabetes mellitus Unknown Neuropathy Unknown father High blood cholesterol Unknown Hypertension Unknown Advance Directives No Advanced Directives Records FoundDocuments on File Type Date Recorded 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 Advance Directive(s) 06/25/2021 6:34 PM Latest Code Status on File Code Status Date Activated Date Inactivated Comments Full Code 06/25/2021 7:17 AM Full Code Order Discussed With: Patient Documents on File Type Date Recorded 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 Advance Directive(s) 06/25/2021 6:34 PM Latest Code Status on File Code Status Date Activated Date Inactivated Comments Full Code 06/25/2021 7:17 AM 07/02/2021 7:33 PM Latest Code Status on File Code Status Date Activated Date Inactivated Comments Full Code 06/25/2021 7:17 AM 07/02/2021 7:33 PM Advance Directive Response Recorded Date/ Time Advance Directives No August 14 10:16am Latest Code Status on File Code Status Date Activated Date Inactivated Comments Full Code 06/25/2021 7:17 AM 07/02/2021 7:33 PM Question Answer Comments Full Code Order Discussed With: Patient Latest Code Status on File Code Status Date Activated Date Inactivated Comments Full Code 06/25/2021 7:17 AM 07/02/2021 7:33 PM Question Answer Comments Full Code Order Discussed With: Patient Latest Code Status on File Code Status Date Activated Date Inactivated Comments Full Code 06/25/2021 7:17 AM 07/02/2021 7:33 PM Question Answer Comments Full Code Order Discussed With: Patient Advance Directive Response Recorded Date/ Time Advance Directives No August 14 9:16am Latest Code Status on File Code Status Date Activated Date Inactivated Comments Full Code 06/25/2021 7:17 AM 07/02/2021 7:33 PM Question Answer Comments Full Code Order Discussed With: Patient Date Activated Date Inactivated Comments 06/25/2021 7:17 AM 07/02/2021 7:33 PM Question Answer Comments Full Code Order Discussed With: Patient Date Activated Date Inactivated Comments 06/25/2021 7:17 AM 07/02/2021 7:33 PM Question Answer Comments Full Code Order Discussed With: Patient Medications Administered Section Inactive Administered Medications - up to 3 most recent administrations Medication Order MAR Action Action Date Dose Rate Site acetaminophen 1,000 mg tab(s) (TYLENOL) 1,000 mg, ORAL, ONCE, 1 dose, On Wed06/06/21 at 0900, No more than 4000 mg of acetaminophen should be given per day (FROM ALL SOURCES), If ordered PRN for pain, patient/guardian may elect to receive this medication for higher pain levels if preferred: N/A Given 06/06/2021 9:00 AM EDT 1,000 mg diphenhydrAMINE 50 mg injection (BENADRYL) 50 mg, INTRAVENOUS, ONCE, 1 dose, On Wed06/06/21 at 0900, Give prior to infusion. Given 06/06/2021 9:09 AM EDT 50 mg methylPREDNISolone sod succinate(PF) 125 mg injection (SOLU-Medrol) 125 mg, INTRAVENOUS, ONCE, 1 dose, On Wed06/06/21 at 0900 Given 06/06/2021 9:07 AM EDT 125 mg riTUXimab-pvvr 700 mg in NaCl 0.9% 500 mL (RUXIENCE) 700 mg (rounded from 735 mg = 375 mg/m2 1.96 m2 Treatment Plan BSA from Recorded weight), INTRAVENOUS, ONCE, 1 dose, On Wed06/06/21 at 0900, Approx Total Volume: EXP: 06/14/21 Infuse at rate of 100mg/hr. If no hypotension, increase rate every 30 minutes by 100mg/hr to a maximum rate of 400mg/hr. Refrigerate. Rate/Dose Change 06/06/2021 11:09 AM EDT 349 mL/hr Rate/Dose Change 06/06/2021 10:39 AM EDT 261 mL /hr Rate/Dose Change 06/06/2021 10:09 AM EDT 174 mL /hr Inactive Administered Medications - up to 3 most recent administrations Medication Order MAR Action Action Date Dose Rate Site cilgavimab 300 mg intramuscular injection (EVUSHELD) 300 mg, INTRAMUSCULAR, ONCE (UP TO 30 DAYS AMB), 1 dose, On Wed06/20/21 at 0800, Administer tixagevimab and cilgavimab as separate IM injections - preferably one in each of the gluteal muscles, one after the other. Refrigerate - Protect from Light, Prior to the patient receiving tixagevimab and cilgavimab, patient has been given the Fact Sheet for Patients and Parents/Caregivers. Yes, Prior to the patient receiving tixagevimab and cilgavimab, patient has been informed that tixagevimab and cilgavimab is an unapproved drug that is authorized for use under EUA. Yes, AMB MED ORDERS Given 06/20/2021 11:23 AM EDT 300 mg Buttocks, Left tixagevimab 300 mg intramuscular injection (EVUSHELD) 300 mg, INTRAMUSCULAR, ONCE (UP TO 30 DAYS AMB), 1 dose, On Wed06/20/21 at 0800, Administer tixagevimab and cilgavimab as separate IM injections - preferably one in each of the gluteal muscles, one after the other. Refrigerate - Protect from Light, AMB MED ORDERS Given 06/20/2021 11:23 AM EDT 300 mg Breast, Right Inactive Administered Medications - up to 3 most recent administrations Medication Order MAR Action Action Date Dose Rate Site bebtelovimab 175 mg injection 175 mg, INTRAVENOUS, ONCE (UP TO 30 DAYS AMB), 1 dose, On Wed10/10/21 at 1100, Administer over 30 seconds. Flush line with NS after administration Refrigerate - Protect from Light. Observe patient for at least 1 hour after injection administered., Prior to the patient receiving bebtelovimab, patient has been given the Fact Sheet for Patients and Parents/Caregivers. Yes, Prior to the patient receiving bebtelovimab, patient has been informed of alternatives to receiving bebtelovimab. Yes, Prior to the patient receiving bebtelovimab, patient has been informed that bebtelovimab is an unapproved drug that is authorized for use under EU[employer]. Yes, Prior to the patient receiving bebtelovimab, patient has been advised to continue self-isolation and infection control measures according to CDC guidelines. Yes, AMB MED ORDERS Given 10/10/2021 11:03 AM EDT 175 mg Inactive Administered Medications - up to 3 most recent administrations Medication Order MAR Action Action Date Dose Rate Site epoetin leandro-epbx 40,000 Units injection (RETACRIT) 40,000 Units, SUBCUTANEOUS, ONCE, 1 dose, On Wed01/20/23 at 1100, Refrigerate - Protect From Light - Do Not Shake, Medication Substitution: [facility] preferred product has been replaced with the insurance mandated product Given 01/20/2023 10:34 AM EST 40,000 Units Arm, Right Inactive Administered Medications - up to 3 most recent administrations Medication Order MAR Action Action Date Dose Rate Site epoetin leandro-epbx 40,000 Units injection (RETACRIT) 40,000 Units, SUBCUTANEOUS, ONCE, 1 dose, On Wed01/27/23 at 1030, Refrigerate - Protect From Light - Do Not Shake, Medication Substitution: [facility] preferred product has been replaced with the insurance mandated product Given 01/27/2023 10:33 AM EST 40,000 Units Arm, Right Inactive Administered Medications - up to 3 most recent administrations Medication Order MAR Action Action Date Dose Rate Site epoetin leandro-epbx 40,000 Units injection (RETACRIT) 40,000 Units, SUBCUTANEOUS, ONCE, 1 dose, On Wed02/03/23 at 1600, Refrigerate - Protect From Light - Do Not Shake, Medication Substitution: [facility] preferred product has been replaced with the insurance mandated product Given 02/03/2023 4:06 PM EST 40,000 Units Abdomen, LLQ Inactive Administered Medications - up to 3 most recent administrations Medication Order MAR Action Action Date Dose Rate Site epoetin leandro-epbx 40,000 Units injection (RETACRIT) 40,000 Units, SUBCUTANEOUS, ONCE, 1 dose, On Wed02/17/23 at 1030, Refrigerate - Protect From Light - Do Not Shake, Medication Substitution: [facility] preferred product has been replaced with the insurance mandated product Given 02/17/2023 10:18 AM EST 40,000 Units Arm, Right Inactive Administered Medications - up to 3 most recent administrations Medication Order MAR Action Action Date Dose Rate Site epoetin leandro-epbx 40,000 Units injection (RETACRIT) 40,000 Units, SUBCUTANEOUS, ONCE, 1 dose, On Wed03/03/23 at 1100, Refrigerate - Protect From Light - Do Not Shake, Medication Substitution: [facility] preferred product has been replaced with the insurance mandated product Given 03/03/2023 10:55 AM EST 40,000 Units Arm, Right Health Concerns Infection Onset Date Last Indicated Resolved Time COVID-19 Rule-Out 06/24/2021 06/24/2021 06/25/2021 12:43 AM EDT COVID-19 Rule-Out 06/25/2021 06/25/2021 06/25/2021 2:04 PM EDT Infection Onset Date Last Indicated Resolved Time COVID-19 Confirmed 10/08/2021 10/08/2021 Infection Onset Date Last Indicated Resolved Time COVID-19 Confirmed 10/08/2021 10/08/2021 8:51 PM EDT Chief Complaint and Reason for Visit Chief Complaint ESRD Chief Complaint ESRD ESRD Chief Complaint ESRD ESRD ESRD Chief Complaint ESRD ESRD ESRD ESRD Chief Complaint lt leg swelling, red ness Chief Complaint anemia. Chief Complaint anemia. Anemia Additional Source Comments <item> Privacy Markings (unrecogniz ed section and content) Section Author: Deb Mckinnon PROHIBITION ON REDISCLOSURE OF CONFIDENTIAL INFORMATION This notice accompanies a disclosure of information concerning a client made to you with the consent of such client. INFORMATION SOURCE (unrecogn ized section and content) DATE CREATED AUTHOR 05/13/2021 [facility] DATE CREATED AUTHOR AUTHOR'S ORGANIZ ATION 09/04/2021 [facility] [place] DATE CREATED AUTHOR AUTHOR'S ORGANIZ ATION 10/13/2021 [facility] DATE CREATED AUTHOR AUTHOR'S ORGANIZ ATION 06/06/2022 [facility] DATE CREATED AUTHOR AUTHOR'S ORGANIZ ATION 01/31/2023 [facility] DATE CREATED AUTHOR AUTHOR'S ORGANIZ ATION 03/15/2023 [facility] DATE CREATED AUTHOR AUTHOR'S ORGANIZ ATION 09/15/2023 [facility] DATE CREATED AUTHOR AUTHOR'S ORGANIZ ATION 11/11/2023 [facility] DATE CREATED AUTHOR AUTHOR'S ORGANIZ ATION 11/13/2023 [facility] Source Comments (unrecognize d section and content) In the event this informatio n is protected by the Federal Confidentiality of Alcohol and Drug Abuse Patient Records regulations: The Federal rules restrict any use of the information to criminally investigate or prosecute any alcohol or drug abuse patient.[facility] the event this information is protected by the Federal Confidentiality of Alcohol and Drug Abuse Patient Records regulations: The Federal rules restrict any use of the information to criminally investigate or prosecute any alcohol or drug abuse patient.[facility]In the event this information is protected by the Federal Confidentiality of Alcohol and Drug Abuse Patient Records regulations: The Federal rules restrict any use of the information to criminally investigate or prosecute any alcohol or drug abuse patient.[facility]In the event this information is protected by the Federal Confidentiality of Alcohol and Drug Abuse Patient Records regulations: The Federal rules restrict any use of the information to criminally investigate or prosecute any alcohol or drug abuse patient.[facility]In the event this information is protected by the Federal Confidentiality of Alcohol and Drug Abuse Patient Records regulations: The Federal rules restrict any use of the information to criminally investigate or prosecute any alcohol or drug abuse patient.[facility]In the event this information is protected by the Federal Confidentiality of Alcohol and Drug Abuse Patient Records regulations: The Federal rules restrict any use of the information to criminally investigate or prosecute any alcohol or drug abuse patient.[facility]In the event this information is protected by the Federal Confidentiality of Alcohol and Drug Abuse Patient Records regulations: The Federal rules restrict any use of the information to criminally investigate or prosecute any alcohol or drug abuse patient.[facility]In the event this information is protected by the Federal Confidentiality of Alcohol and Drug Abuse Patient Records regulations: The Federal rules restrict any use of the information to criminally investigate or prosecute any alcohol or drug abuse patient.[facility]In the event this information is protected by the Federal Confidentiality of Alcohol and Drug Abuse Patient Records regulations: The Federal rules restrict any use of the information to criminally investigate or prosecute any alcohol or drug abuse patient.[facility] the event this information is protected by the Federal Confidentiality of Alcohol and Drug Abuse Patient Records regulations: The Federal rules restrict any use of the information to criminally investigate or prosecute any alcohol or drug abuse patient.[facility]In the event this information is protected by the Federal Confidentiality of Alcohol and Drug Abuse Patient Records regulations: The Federal rules restrict any use of the information to criminally investigate or prosecute any alcohol or drug abuse patient.[facility]In the event this information is protected by the Federal Confidentiality of Alcohol and Drug Abuse Patient Records regulations: The Federal rules restrict any use of the information to criminally investigate or prosecute any alcohol or drug abuse patient.[facility] the event this information is protected by the Federal Confidentiality of Alcohol and Drug Abuse Patient Records regulations: The Federal rules restrict any use of the information to criminally investigate or prosecute any alcohol or drug abuse patient.[facility]In the event this information is protected by the Federal Confidentiality of Alcohol and Drug Abuse Patient Records regulations: The Federal rules restrict any use of the information to criminally investigate or prosecute any alcohol or drug abuse patient.[facility] HospitalIn the event this information is protected by the Federal Confidentiality of Alcohol and Drug Abuse Patient Records regulations: The Federal rules restrict any use of the information to criminally investigate or prosecute any alcohol or drug abuse patient.[facility] HospitalIn the event this information is protected by the Federal Confidentiality of Alcohol and Drug Abuse Patient Records regulations: The Federal rules restrict any use of the information to criminally investigate or prosecute any alcohol or drug abuse patient.[facility] HospitalIn the event this information is protected by the Federal Confidentiality of Alcohol and Drug Abuse Patient Records regulations: The Federal rules restrict any use of the information to criminally investigate or prosecute any alcohol or drug abuse patient.[facility] HospitalIn the event this information is protected by the Federal Confidentiality of Alcohol and Drug Abuse Patient Records regulations: The Federal rules restrict any use of the information to criminally investigate or prosecute any alcohol or drug abuse patient.[facility]In the event this information is protected by the Federal Confidentiality of Alcohol and Drug Abuse Patient Records regulations: The Federal rules restrict any use of the information to criminally investigate or prosecute any alcohol or drug abuse patient.[facility] HospitalIn the event this information is protected by the Federal Confidentiality of Alcohol and Drug Abuse Patient Records regulations: The Federal rules restrict any use of the information to criminally investigate or prosecute any alcohol or drug abuse patient.[facility] HospitalIn the event this information is protected by the Federal Confidentiality of Alcohol and Drug Abuse Patient Records regulations: The Federal rules restrict any use of the information to criminally investigate or prosecute any alcohol or drug abuse patient.[facility] HospitalIn the event this information is protected by the Federal Confidentiality of Alcohol and Drug Abuse Patient Records regulations: The Federal rules restrict any use of the information to criminally investigate or prosecute any alcohol or drug abuse patient.[facility] HospitalIn the event this information is protected by the Federal Confidentiality of Alcohol and Drug Abuse Patient Records regulations: The Federal rules restrict any use of the information to criminally investigate or prosecute any alcohol or drug abuse patient.[facility] HospitalIn the event this information is protected by the Federal Confidentiality of Alcohol and Drug Abuse Patient Records regulations: The Federal rules restrict any use of the information to criminally investigate or prosecute any alcohol or drug abuse patient.[facility] HospitalIn the event this information is protected by the Federal Confidentiality of Alcohol and Drug Abuse Patient Records regulations: The Federal rules restrict any use of the information to criminally investigate or prosecute any alcohol or drug abuse patient.[facility] HospitalIn the event this information is protected by the Federal Confidentiality of Alcohol and Drug Abuse Patient Records regulations: The Federal rules restrict any use of the information to criminally investigate or prosecute any alcohol or drug abuse patient.[facility] HospitalIn the event this information is protected by the Federal Confidentiality of Alcohol and Drug Abuse Patient Records regulations: The Federal rules restrict any use of the information to criminally investigate or prosecute any alcohol or drug abuse patient.[facility] HospitalIn the event this information is protected by the Federal Confidentiality of Alcohol and Drug Abuse Patient Records regulations: The Federal rules restrict any use of the information to criminally investigate or prosecute any alcohol or drug abuse patient.[facility] HospitalIn the event this information is protected by the Federal Confidentiality of Alcohol and Drug Abuse Patient Records regulations: The Federal rules restrict any use of the information to criminally investigate or prosecute any alcohol or drug abuse patient.[facility] HospitalIn the event this information is protected by the Federal Confidentiality of Alcohol and Drug Abuse Patient Records regulations: The Federal rules restrict any use of the information to criminally investigate or prosecute any alcohol or drug abuse patient.[facility] HospitalIn the event this information is protected by the Federal Confidentiality of Alcohol and Drug Abuse Patient Records regulations: The Federal rules restrict any use of the information to criminally investigate or prosecute any alcohol or drug abuse patient.[facility] HospitalIn the event this information is protected by the Federal Confidentiality of Alcohol and Drug Abuse Patient Records regulations: The Federal rules restrict any use of the information to criminally investigate or prosecute any alcohol or drug abuse patient.[facility] HospitalIn the event this information is protected by the Federal Confidentiality of Alcohol and Drug Abuse Patient Records regulations: The Federal rules restrict any use of the information to criminally investigate or prosecute any alcohol or drug abuse patient.[facility] HospitalIn the event this information is protected by the Federal Confidentiality of Alcohol and Drug Abuse Patient Records regulations: The Federal rules restrict any use of the information to criminally investigate or prosecute any alcohol or drug abuse patient.[facility] HospitalIn the event this information is protected by the Federal Confidentiality of Alcohol and Drug Abuse Patient Records regulations: The Federal rules restrict any use of the information to criminally investigate or prosecute any alcohol or drug abuse patient.[facility] HospitalIn the event this information is protected by the Federal Confidentiality of Alcohol and Drug Abuse Patient Records regulations: The Federal rules restrict any use of the information to criminally investigate or prosecute any alcohol or drug abuse patient.[facility] HospitalIn the event this information is protected by the Federal Confidentiality of Alcohol and Drug Abuse Patient Records regulations: The Federal rules restrict any use of the information to criminally investigate or prosecute any alcohol or drug abuse patient.[facility] HospitalIn the event this information is protected by the Federal Confidentiality of Alcohol and Drug Abuse Patient Records regulations: The Federal rules restrict any use of the information to criminally investigate or prosecute any alcohol or drug abuse patient.[facility] HospitalIn the event this information is protected by the Federal Confidentiality of Alcohol and Drug Abuse Patient Records regulations: The Federal rules restrict any use of the information to criminally investigate or prosecute any alcohol or drug abuse patient.[facility] HospitalIn the event this information is protected by the Federal Confidentiality of Alcohol and Drug Abuse Patient Records regulations: The Federal rules restrict any use of the information to criminally investigate or prosecute any alcohol or drug abuse patient.[facility] HospitalIn the event this information is protected by the Federal Confidentiality of Alcohol and Drug Abuse Patient Records regulations: The Federal rules restrict any use of the information to criminally investigate or prosecute any alcohol or drug abuse patient.[facility] HospitalIn the event this information is protected by the Federal Confidentiality of Alcohol and Drug Abuse Patient Records regulations: The Federal rules restrict any use of the information to criminally investigate or prosecute any alcohol or drug abuse patient.[facility] HospitalIn the event this information is protected by the Federal Confidentiality of Alcohol and Drug Abuse Patient Records regulations: The Federal rules restrict any use of the information to criminally investigate or prosecute any alcohol or drug abuse patient.[facility] HospitalIn the event this information is protected by the Federal Confidentiality of Alcohol and Drug Abuse Patient Records regulations: The Federal rules restrict any use of the information to criminally investigate or prosecute any alcohol or drug abuse patient.[facility] HospitalIn the event this information is protected by the Federal Confidentiality of Alcohol and Drug Abuse Patient Records regulations: The Federal rules restrict any use of the information to criminally investigate or prosecute any alcohol or drug abuse patient.[facility] HospitalIn the event this information is protected by the Federal Confidentiality of Alcohol and Drug Abuse Patient Records regulations: The Federal rules restrict any use of the information to criminally investigate or prosecute any alcohol or drug abuse patient.[facility] HospitalIn the event this information is protected by the Federal Confidentiality of Alcohol and Drug Abuse Patient Records regulations: The Federal rules restrict any use of the information to criminally investigate or prosecute any alcohol or drug abuse patient.[facility] HospitalIn the event this information is protected by the Federal Confidentiality of Alcohol and Drug Abuse Patient Records regulations: The Federal rules restrict any use of the information to criminally investigate or prosecute any alcohol or drug abuse patient.[facility] HospitalIn the event this information is protected by the Federal Confidentiality of Alcohol and Drug Abuse Patient Records regulations: The Federal rules restrict any use of the information to criminally investigate or prosecute any alcohol or drug abuse patient.[facility] HospitalIn the event this information is protected by the Federal Confidentiality of Alcohol and Drug Abuse Patient Records regulations: The Federal rules restrict any use of the information to criminally investigate or prosecute any alcohol or drug abuse patient.[facility] HospitalIn the event this information is protected by the Federal Confidentiality of Alcohol and Drug Abuse Patient Records regulations: The Federal rules restrict any use of the information to criminally investigate or prosecute any alcohol or drug abuse patient.[facility] HospitalIn the event this information is protected by the Federal Confidentiality of Alcohol and Drug Abuse Patient Records regulations: The Federal rules restrict any use of the information to criminally investigate or prosecute any alcohol or drug abuse patient.[facility] HospitalIn the event this information is protected by the Federal Confidentiality of Alcohol and Drug Abuse Patient Records regulations: The Federal rules restrict any use of the information to criminally investigate or prosecute any alcohol or drug abuse patient.[facility] HospitalIn the event this information is protected by the Federal Confidentiality of Alcohol and Drug Abuse Patient Records regulations: The Federal rules restrict any use of the information to criminally investigate or prosecute any alcohol or drug abuse patient.[facility] HospitalIn the event this information is protected by the Federal Confidentiality of Alcohol and Drug Abuse Patient Records regulations: The Federal rules restrict any use of the information to criminally investigate or prosecute any alcohol or drug abuse patient.[facility] HospitalIn the event this information is protected by the Federal Confidentiality of Alcohol and Drug Abuse Patient Records regulations: The Federal rules restrict any use of the information to criminally investigate or prosecute any alcohol or drug abuse patient.[facility] HospitalIn the event this information is protected by the Federal Confidentiality of Alcohol and Drug Abuse Patient Records regulations: The Federal rules restrict any use of the information to criminally investigate or prosecute any alcohol or drug abuse patient.[facility] HospitalIn the event this information is protected by the Federal Confidentiality of Alcohol and Drug Abuse Patient Records regulations: The Federal rules restrict any use of the information to criminally investigate or prosecute any alcohol or drug abuse patient.[facility] HospitalIn the event this information is protected by the Federal Confidentiality of Alcohol and Drug Abuse Patient Records regulations: The Federal rules restrict any use of the information to criminally investigate or prosecute any alcohol or drug abuse patient.[facility] the event this information is protected by the Federal Confidentiality of Alcohol and Drug Abuse Patient Records regulations: The Federal rules restrict any use of the information to criminally investigate or prosecute any alcohol or drug abuse patient.[facility] HospitalIn the event this information is protected by the Federal Confidentiality of Alcohol and Drug Abuse Patient Records regulations: The Federal rules restrict any use of the information to criminally investigate or prosecute any alcohol or drug abuse patient.[facility] HospitalIn the event this information is protected by the Federal Confidentiality of Alcohol and Drug Abuse Patient Records regulations: The Federal rules restrict any use of the information to criminally investigate or prosecute any alcohol or drug abuse patient.[facility]In the event this information is protected by the Federal Confidentiality of Alcohol and Drug Abuse Patient Records regulations: The Federal rules restrict any use of the information to criminally investigate or prosecute any alcohol or drug abuse patient.[facility] HospitalIn the event this information is protected by the Federal Confidentiality of Alcohol and Drug Abuse Patient Records regulations: The Federal rules restrict any use of the information to criminally investigate or prosecute any alcohol or drug abuse patient.[facility] HospitalIn the event this information is protected by the Federal Confidentiality of Alcohol and Drug Abuse Patient Records regulations: The Federal rules restrict any use of the information to criminally investigate or prosecute any alcohol or drug abuse patient.[facility] HospitalIn the event this information is protected by the Federal Confidentiality of Alcohol and Drug Abuse Patient Records regulations: The Federal rules restrict any use of the information to criminally investigate or prosecute any alcohol or drug abuse patient.[facility] HospitalIn the event this information is protected by the Federal Confidentiality of Alcohol and Drug Abuse Patient Records regulations: The Federal rules restrict any use of the information to criminally investigate or prosecute any alcohol or drug abuse patient.[facility] HospitalIn the event this information is protected by the Federal Confidentiality of Alcohol and Drug Abuse Patient Records regulations: The Federal rules restrict any use of the information to criminally investigate or prosecute any alcohol or drug abuse patient.[facility] HospitalIn the event this information is protected by the Federal Confidentiality of Alcohol and Drug Abuse Patient Records regulations: The Federal rules restrict any use of the information to criminally investigate or prosecute any alcohol or drug abuse patient.[facility] HospitalIn the event this information is protected by the Federal Confidentiality of Alcohol and Drug Abuse Patient Records regulations: The Federal rules restrict any use of the information to criminally investigate or prosecute any alcohol or drug abuse patient.[facility] HospitalIn the event this information is protected by the Federal Confidentiality of Alcohol and Drug Abuse Patient Records regulations: The Federal rules restrict any use of the information to criminally investigate or prosecute any alcohol or drug abuse patient.[facility] HospitalIn the event this information is protected by the Federal Confidentiality of Alcohol and Drug Abuse Patient Records regulations: The Federal rules restrict any use of the information to criminally investigate or prosecute any alcohol or drug abuse patient.[facility] HospitalIn the event this information is protected by the Federal Confidentiality of Alcohol and Drug Abuse Patient Records regulations: The Federal rules restrict any use of the information to criminally investigate or prosecute any alcohol or drug abuse patient.[facility] HospitalIn the event this information is protected by the Federal Confidentiality of Alcohol and Drug Abuse Patient Records regulations: The Federal rules restrict any use of the information to criminally investigate or prosecute any alcohol or drug abuse patient.[facility] HospitalIn the event this information is protected by the Federal Confidentiality of Alcohol and Drug Abuse Patient Records regulations: The Federal rules restrict any use of the information to criminally investigate or prosecute any alcohol or drug abuse patient.[facility] HospitalIn the event this information is protected by the Federal Confidentiality of Alcohol and Drug Abuse Patient Records regulations: The Federal rules restrict any use of the information to criminally investigate or prosecute any alcohol or drug abuse patient.[facility] HospitalIn the event this information is protected by the Federal Confidentiality of Alcohol and Drug Abuse Patient Records regulations: The Federal rules restrict any use of the information to criminally investigate or prosecute any alcohol or drug abuse patient.[facility] HospitalIn the event this information is protected by the Federal Confidentiality of Alcohol and Drug Abuse Patient Records regulations: The Federal rules restrict any use of the information to criminally investigate or prosecute any alcohol or drug abuse patient.[facility] HospitalIn the event this information is protected by the Federal Confidentiality of Alcohol and Drug Abuse Patient Records regulations: The Federal rules restrict any use of the information to criminally investigate or prosecute any alcohol or drug abuse patient.[facility] HospitalIn the event this information is protected by the Federal Confidentiality of Alcohol and Drug Abuse Patient Records regulations: The Federal rules restrict any use of the information to criminally investigate or prosecute any alcohol or drug abuse patient.[facility] HospitalIn the event this information is protected by the Federal Confidentiality of Alcohol and Drug Abuse Patient Records regulations: The Federal rules restrict any use of the information to criminally investigate or prosecute any alcohol or drug abuse patient.[facility] HospitalIn the event this information is protected by the Federal Confidentiality of Alcohol and Drug Abuse Patient Records regulations: The Federal rules restrict any use of the information to criminally investigate or prosecute any alcohol or drug abuse patient.[facility] HospitalIn the event this information is protected by the Federal Confidentiality of Alcohol and Drug Abuse Patient Records regulations: The Federal rules restrict any use of the information to criminally investigate or prosecute any alcohol or drug abuse patient.[facility] HospitalIn the event this information is protected by the Federal Confidentiality of Alcohol and Drug Abuse Patient Records regulations: The Federal rules restrict any use of the information to criminally investigate or prosecute any alcohol or drug abuse patient.[facility] HospitalIn the event this information is protected by the Federal Confidentiality of Alcohol and Drug Abuse Patient Records regulations: The Federal rules restrict any use of the information to criminally investigate or prosecute any alcohol or drug abuse patient.[facility] HospitalIn the event this information is protected by the Federal Confidentiality of Alcohol and Drug Abuse Patient Records regulations: The Federal rules restrict any use of the information to criminally investigate or prosecute any alcohol or drug abuse patient.[facility] HospitalIn the event this information is protected by the Federal Confidentiality of Alcohol and Drug Abuse Patient Records regulations: The Federal rules restrict any use of the information to criminally investigate or prosecute any alcohol or drug abuse patient.[facility] HospitalIn the event this information is protected by the Federal Confidentiality of Alcohol and Drug Abuse Patient Records regulations: The Federal rules restrict any use of the information to criminally investigate or prosecute any alcohol or drug abuse patient.[facility] HospitalIn the event this information is protected by the Federal Confidentiality of Alcohol and Drug Abuse Patient Records regulations: The Federal rules restrict any use of the information to criminally investigate or prosecute any alcohol or drug abuse patient.[facility] HospitalIn the event this information is protected by the Federal Confidentiality of Alcohol and Drug Abuse Patient Records regulations: The Federal rules restrict any use of the information to criminally investigate or prosecute any alcohol or drug abuse patient.[facility] HospitalIn the event this information is protected by the Federal Confidentiality of Alcohol and Drug Abuse Patient Records regulations: The Federal rules restrict any use of the information to criminally investigate or prosecute any alcohol or drug abuse patient.[facility] HospitalIn the event this information is protected by the Federal Confidentiality of Alcohol and Drug Abuse Patient Records regulations: The Federal rules restrict any use of the information to criminally investigate or prosecute any alcohol or drug abuse patient.[facility] HospitalIn the event this information is protected by the Federal Confidentiality of Alcohol and Drug Abuse Patient Records regulations: The Federal rules restrict any use of the information to criminally investigate or prosecute any alcohol or drug abuse patient.[facility] HospitalIn the event this information is protected by the Federal Confidentiality of Alcohol and Drug Abuse Patient Records regulations: The Federal rules restrict any use of the information to criminally investigate or prosecute any alcohol or drug abuse patient.[facility] HospitalIn the event this information is protected by the Federal Confidentiality of Alcohol and Drug Abuse Patient Records regulations: The Federal rules restrict any use of the information to criminally investigate or prosecute any alcohol or drug abuse patient.[facility] HospitalIn the event this information is protected by the Federal Confidentiality of Alcohol and Drug Abuse Patient Records regulations: The Federal rules restrict any use of the information to criminally investigate or prosecute any alcohol or drug abuse patient.[facility] HospitalIn the event this information is protected by the Federal Confidentiality of Alcohol and Drug Abuse Patient Records regulations: The Federal rules restrict any use of the information to criminally investigate or prosecute any alcohol or drug abuse patient.[facility] HospitalIn the event this information is protected by the Federal Confidentiality of Alcohol and Drug Abuse Patient Records regulations: The Federal rules restrict any use of the information to criminally investigate or prosecute any alcohol or drug abuse patient.[facility] HospitalIn the event this information is protected by the Federal Confidentiality of Alcohol and Drug Abuse Patient Records regulations: The Federal rules restrict any use of the information to criminally investigate or prosecute any alcohol or drug abuse patient.[facility] HospitalIn the event this information is protected by the Federal Confidentiality of Alcohol and Drug Abuse Patient Records regulations: The Federal rules restrict any use of the information to criminally investigate or prosecute any alcohol or drug abuse patient.[facility] HospitalIn the event this information is protected by the Federal Confidentiality of Alcohol and Drug Abuse Patient Records regulations: The Federal rules restrict any use of the information to criminally investigate or prosecute any alcohol or drug abuse patient.[facility] HospitalIn the event this information is protected by the Federal Confidentiality of Alcohol and Drug Abuse Patient Records regulations: The Federal rules restrict any use of the information to criminally investigate or prosecute any alcohol or drug abuse patient.[facility] HospitalIn the event this information is protected by the Federal Confidentiality of Alcohol and Drug Abuse Patient Records regulations: The Federal rules restrict any use of the information to criminally investigate or prosecute any alcohol or drug abuse patient.[facility] HospitalIn the event this information is protected by the Federal Confidentiality of Alcohol and Drug Abuse Patient Records regulations: The Federal rules restrict any use of the information to criminally investigate or prosecute any alcohol or drug abuse patient.[facility] HospitalIn the event this information is protected by the Federal Confidentiality of Alcohol and Drug Abuse Patient Records regulations: The Federal rules restrict any use of the information to criminally investigate or prosecute any alcohol or drug abuse patient.[facility] HospitalIn the event this information is protected by the Federal Confidentiality of Alcohol and Drug Abuse Patient Records regulations: The Federal rules restrict any use of the information to criminally investigate or prosecute any alcohol or drug abuse patient.[facility] HospitalIn the event this information is protected by the Federal Confidentiality of Alcohol and Drug Abuse Patient Records regulations: The Federal rules restrict any use of the information to criminally investigate or prosecute any alcohol or drug abuse patient.[facility] HospitalIn the event this information is protected by the Federal Confidentiality of Alcohol and Drug Abuse Patient Records regulations: The Federal rules restrict any use of the information to criminally investigate or prosecute any alcohol or drug abuse patient.[facility] HospitalIn the event this information is protected by the Federal Confidentiality of Alcohol and Drug Abuse Patient Records regulations: The Federal rules restrict any use of the information to criminally investigate or prosecute any alcohol or drug abuse patient.[facility] the event this information is protected by the Federal Confidentiality of Alcohol and Drug Abuse Patient Records regulations: The Federal rules restrict any use of the information to criminally investigate or prosecute any alcohol or drug abuse patient.[facility] HospitalIn the event this information is protected by the Federal Confidentiality of Alcohol and Drug Abuse Patient Records regulations: The Federal rules restrict any use of the information to criminally investigate or prosecute any alcohol or drug abuse patient.[facility] HospitalIn the event this information is protected by the Federal Confidentiality of Alcohol and Drug Abuse Patient Records regulations: The Federal rules restrict any use of the information to criminally investigate or prosecute any alcohol or drug abuse patient.[facility]In the event this information is protected by the Federal Confidentiality of Alcohol and Drug Abuse Patient Records regulations: The Federal rules restrict any use of the information to criminally investigate or prosecute any alcohol or drug abuse patient.[facility] HospitalIn the event this information is protected by the Federal Confidentiality of Alcohol and Drug Abuse Patient Records regulations: The Federal rules restrict any use of the information to criminally investigate or prosecute any alcohol or drug abuse patient.[facility] HospitalIn the event this information is protected by the Federal Confidentiality of Alcohol and Drug Abuse Patient Records regulations: The Federal rules restrict any use of the information to criminally investigate or prosecute any alcohol or drug abuse patient.[facility] HospitalIn the event this information is protected by the Federal Confidentiality of Alcohol and Drug Abuse Patient Records regulations: The Federal rules restrict any use of the information to criminally investigate or prosecute any alcohol or drug abuse patient.[facility] HospitalIn the event this information is protected by the Federal Confidentiality of Alcohol and Drug Abuse Patient Records regulations: The Federal rules restrict any use of the information to criminally investigate or prosecute any alcohol or drug abuse patient.[facility] HospitalIn the event this information is protected by the Federal Confidentiality of Alcohol and Drug Abuse Patient Records regulations: The Federal rules restrict any use of the information to criminally investigate or prosecute any alcohol or drug abuse patient.[facility] HospitalIn the event this information is protected by the Federal Confidentiality of Alcohol and Drug Abuse Patient Records regulations: The Federal rules restrict any use of the information to criminally investigate or prosecute any alcohol or drug abuse patient.[facility] HospitalIn the event this information is protected by the Federal Confidentiality of Alcohol and Drug Abuse Patient Records regulations: The Federal rules restrict any use of the information to criminally investigate or prosecute any alcohol or drug abuse patient.[facility] HospitalIn the event this information is protected by the Federal Confidentiality of Alcohol and Drug Abuse Patient Records regulations: The Federal rules restrict any use of the information to criminally investigate or prosecute any alcohol or drug abuse patient.[facility] HospitalIn the event this information is protected by the Federal Confidentiality of Alcohol and Drug Abuse Patient Records regulations: The Federal rules restrict any use of the information to criminally investigate or prosecute any alcohol or drug abuse patient.[facility] HospitalIn the event this information is protected by the Federal Confidentiality of Alcohol and Drug Abuse Patient Records regulations: The Federal rules restrict any use of the information to criminally investigate or prosecute any alcohol or drug abuse patient.[facility] HospitalIn the event this information is protected by the Federal Confidentiality of Alcohol and Drug Abuse Patient Records regulations: The Federal rules restrict any use of the information to criminally investigate or prosecute any alcohol or drug abuse patient.[facility] HospitalIn the event this information is protected by the Federal Confidentiality of Alcohol and Drug Abuse Patient Records regulations: The Federal rules restrict any use of the information to criminally investigate or prosecute any alcohol or drug abuse patient.[facility] HospitalIn the event this information is protected by the Federal Confidentiality of Alcohol and Drug Abuse Patient Records regulations: The Federal rules restrict any use of the information to criminally investigate or prosecute any alcohol or drug abuse patient.[facility] HospitalIn the event this information is protected by the Federal Confidentiality of Alcohol and Drug Abuse Patient Records regulations: The Federal rules restrict any use of the information to criminally investigate or prosecute any alcohol or drug abuse patient.[facility] HospitalIn the event this information is protected by the Federal Confidentiality of Alcohol and Drug Abuse Patient Records regulations: The Federal rules restrict any use of the information to criminally investigate or prosecute any alcohol or drug abuse patient.[facility] HospitalIn the event this information is protected by the Federal Confidentiality of Alcohol and Drug Abuse Patient Records regulations: The Federal rules restrict any use of the information to criminally investigate or prosecute any alcohol or drug abuse patient.[facility] HospitalIn the event this information is protected by the Federal Confidentiality of Alcohol and Drug Abuse Patient Records regulations: The Federal rules restrict any use of the information to criminally investigate or prosecute any alcohol or drug abuse patient.[facility] HospitalIn the event this information is protected by the Federal Confidentiality of Alcohol and Drug Abuse Patient Records regulations: The Federal rules restrict any use of the information to criminally investigate or prosecute any alcohol or drug abuse patient.[facility] HospitalIn the event this information is protected by the Federal Confidentiality of Alcohol and Drug Abuse Patient Records regulations: The Federal rules restrict any use of the information to criminally investigate or prosecute any alcohol or drug abuse patient.[facility] HospitalIn the event this information is protected by the Federal Confidentiality of Alcohol and Drug Abuse Patient Records regulations: The Federal rules restrict any use of the information to criminally investigate or prosecute any alcohol or drug abuse patient.[facility] HospitalIn the event this information is protected by the Federal Confidentiality of Alcohol and Drug Abuse Patient Records regulations: The Federal rules restrict any use of the information to criminally investigate or prosecute any alcohol or drug abuse patient.[facility] HospitalIn the event this information is protected by the Federal Confidentiality of Alcohol and Drug Abuse Patient Records regulations: The Federal rules restrict any use of the information to criminally investigate or prosecute any alcohol or drug abuse patient.[facility] HospitalIn the event this information is protected by the Federal Confidentiality of Alcohol and Drug Abuse Patient Records regulations: The Federal rules restrict any use of the information to criminally investigate or prosecute any alcohol or drug abuse patient.[facility] HospitalIn the event this information is protected by the Federal Confidentiality of Alcohol and Drug Abuse Patient Records regulations: The Federal rules restrict any use of the information to criminally investigate or prosecute any alcohol or drug abuse patient.[facility] HospitalIn the event this information is protected by the Federal Confidentiality of Alcohol and Drug Abuse Patient Records regulations: The Federal rules restrict any use of the information to criminally investigate or prosecute any alcohol or drug abuse patient.[facility] HospitalIn the event this information is protected by the Federal Confidentiality of Alcohol and Drug Abuse Patient Records regulations: The Federal rules restrict any use of the information to criminally investigate or prosecute any alcohol or drug abuse patient.[facility] HospitalIn the event this information is protected by the Federal Confidentiality of Alcohol and Drug Abuse Patient Records regulations: The Federal rules restrict any use of the information to criminally investigate or prosecute any alcohol or drug abuse patient.[facility] HospitalIn the event this information is protected by the Federal Confidentiality of Alcohol and Drug Abuse Patient Records regulations: The Federal rules restrict any use of the information to criminally investigate or prosecute any alcohol or drug abuse patient.[facility] HospitalIn the event this information is protected by the Federal Confidentiality of Alcohol and Drug Abuse Patient Records regulations: The Federal rules restrict any use of the information to criminally investigate or prosecute any alcohol or drug abuse patient.[facility] HospitalIn the event this information is protected by the Federal Confidentiality of Alcohol and Drug Abuse Patient Records regulations: The Federal rules restrict any use of the information to criminally investigate or prosecute any alcohol or drug abuse patient.[facility] HospitalIn the event this information is protected by the Federal Confidentiality of Alcohol and Drug Abuse Patient Records regulations: The Federal rules restrict any use of the information to criminally investigate or prosecute any alcohol or drug abuse patient.[facility] HospitalIn the event this information is protected by the Federal Confidentiality of Alcohol and Drug Abuse Patient Records regulations: The Federal rules restrict any use of the information to criminally investigate or prosecute any alcohol or drug abuse patient.[facility] HospitalIn the event this information is protected by the Federal Confidentiality of Alcohol and Drug Abuse Patient Records regulations: The Federal rules restrict any use of the information to criminally investigate or prosecute any alcohol or drug abuse patient.[facility] HospitalIn the event this information is protected by the Federal Confidentiality of Alcohol and Drug Abuse Patient Records regulations: The Federal rules restrict any use of the information to criminally investigate or prosecute any alcohol or drug abuse patient.[facility] HospitalIn the event this information is protected by the Federal Confidentiality of Alcohol and Drug Abuse Patient Records regulations: The Federal rules restrict any use of the information to criminally investigate or prosecute any alcohol or drug abuse patient.[facility] HospitalIn the event this information is protected by the Federal Confidentiality of Alcohol and Drug Abuse Patient Records regulations: The Federal rules restrict any use of the information to criminally investigate or prosecute any alcohol or drug abuse patient.[facility] HospitalIn the event this information is protected by the Federal Confidentiality of Alcohol and Drug Abuse Patient Records regulations: The Federal rules restrict any use of the information to criminally investigate or prosecute any alcohol or drug abuse patient.[facility] HospitalIn the event this information is protected by the Federal Confidentiality of Alcohol and Drug Abuse Patient Records regulations: The Federal rules restrict any use of the information to criminally investigate or prosecute any alcohol or drug abuse patient.[facility] HospitalIn the event this information is protected by the Federal Confidentiality of Alcohol and Drug Abuse Patient Records regulations: The Federal rules restrict any use of the information to criminally investigate or prosecute any alcohol or drug abuse patient.[facility] HospitalIn the event this information is protected by the Federal Confidentiality of Alcohol and Drug Abuse Patient Records regulations: The Federal rules restrict any use of the information to criminally investigate or prosecute any alcohol or drug abuse patient.[facility] HospitalIn the event this information is protected by the Federal Confidentiality of Alcohol and Drug Abuse Patient Records regulations: The Federal rules restrict any use of the information to criminally investigate or prosecute any alcohol or drug abuse patient.[facility] HospitalIn the event this information is protected by the Federal Confidentiality of Alcohol and Drug Abuse Patient Records regulations: The Federal rules restrict any use of the information to criminally investigate or prosecute any alcohol or drug abuse patient.[facility] HospitalIn the event this information is protected by the Federal Confidentiality of Alcohol and Drug Abuse Patient Records regulations: The Federal rules restrict any use of the information to criminally investigate or prosecute any alcohol or drug abuse patient.[facility] HospitalIn the event this information is protected by the Federal Confidentiality of Alcohol and Drug Abuse Patient Records regulations: The Federal rules restrict any use of the information to criminally investigate or prosecute any alcohol or drug abuse patient.[facility] HospitalIn the event this information is protected by the Federal Confidentiality of Alcohol and Drug Abuse Patient Records regulations: The Federal rules restrict any use of the information to criminally investigate or prosecute any alcohol or drug abuse patient.[facility] the event this information is protected by the Federal Confidentiality of Alcohol and Drug Abuse Patient Records regulations: The Federal rules restrict any use of the information to criminally investigate or prosecute any alcohol or drug abuse patient.[facility] HospitalIn the event this information is protected by the Federal Confidentiality of Alcohol and Drug Abuse Patient Records regulations: The Federal rules restrict any use of the information to criminally investigate or prosecute any alcohol or drug abuse patient.[facility] Reason for Visit (unrecogniz ed section and content) Reason Comments Consult Specialty Diagnoses / Procedures Referred By Contac t Referred To Contact Urology Diagnoses RUQ pain Procedures CONSULT TO UROLOGY OFFICE/OUTPATIENT NEW [facility] 60-74 MINUTES Philip Escalante MD [address] [place] [address] Referral ID Status Reason Start Date Expiration Date V isits Requested Visits Authorized [id number] Closed PCP Requested Referral 12/24/2022 12/24/2023 1 1 Reason Comments Referral - Kidney Txp Specialty Diagnoses / Procedures Referred By Contac t Referred To Contact TRANSPLANT Diagnoses Hypertension, unspecified type Procedures CONSULT TO TRANSPLANT CENTER OFFICE/OUTPATIENT NEW HIGH MDM 60-74 MINUTES CHEST X-RAY, FRONT&LAT ECG ROUTINE ECG W/LEAST 12 LDS TRCG ONLY W/O I&R CT ANGIOGRAPHY CHEST W/CONTRAST/NONCONTRAST CT ABDOMEN W & W/O CONTRAST [address] [place] [address] Trac T[facility] [address] [place] [address] Referral ID Status Reason Start Date Expiration Date Visits Requested Visits Authorized [id number] Authorized Financial Clearance Required - OON Payor Patient Cleared - INN Insurance Found 09/25/2021 03/28/2022 99 99 Reason Comments Transplant Evaluation Reason Comments Patient Education Assessment Specialty Diagnoses / Procedures Referred By Rowan t Referred To Contact Diagnoses 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 with renal involvement (HCC) Procedures INJ RUXIENCE, 10 MG 700mg D1,8,15,22 - Q 168 Days RUXIENCE- 4 WEEKLY DOSES Te Avendaño MD [address] [place] [id number] [facility] [address] [place] [address] Referral ID Status Reason Start Date Expiration Date V isits Requested Visits Authorized [id number] Authorized 05/05/2021 11/02/2021 4 4 Reason Comments Results Reason Comments Vasculitis Reason Comments Hospital Follow Up Reason Comments New Patient Ekaterina's, check air way Specialty Diagnoses / Procedures Referred By Rowan pacheco Referred To Contact Ent - Otolaryngology Diagnoses 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 with renal involvement (HCC) group home current use of systemic steroids Chronic sinusitis, unspecified location Encounter for prophylactic measures, unspecified Procedures CONSULT TO ENT OFFICE/OUTPATIENT NEW HIGH MDM 60-74 MINUTES Te Avendaño MD [address] [place] [address] Referral ID Status Reason Start Date Expiration Date V isits Requested Visits Authorized [id number] Closed PCP Requested Referral 07/08/2021 07/08/2022 1 1 Reason Comments Orders Reason Comments Erroneous encounter-disregard Reason Comments Referral - Kidney Txp Reason Comments Appointment Reason Comments Infusion Specialty Diagnoses / Procedures Referred By Contyoung t Referred To Contact Diagnoses COVID-19 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 with renal involvement (HCC) Procedures COVID TREATMENT REFERRAL COVID TREATMENT REFERRAL Te Avendaño MD [address] [place] [address] Referral ID Status Reason Start Date Expiration Date Visits Requested Visits Authorized [id number] Pending Review Auto-Generat ed Referral 10/09/2021 10/09/2022 1 1 Reason Comments Patient Education Specialty Diagnoses / Procedures Referred By Contac t Referred To Contact TRANSPLANT Diagnoses Hypertension, unspecified type Procedures CONSULT TO TRANSPLANT CENTER OFFICE/OUTPATIENT NEW HIGH MDM 60-74 MINUTES CHEST X-RAY, FRONT&LAT ECG ROUTINE ECG W/LEAST 12 LDS TRCG ONLY W/O I&R CT ANGIOGRAPHY CHEST W/CONTRAST/NONCONTRAST CT ABDOMEN W & W/O CONTRAST Delma Osorio [address] [place] [address] [place] [address] Reason Comments Spirometry Specialty Diagnoses / Procedures Referred By Contac t Referred To Contact [facility] Diagnoses 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 with renal involvement (HCC) Procedures SPIROMETRY WITH DILATOR IF OBSTRUCTED BRNCDILAT RSPSE SPMTRY PRE&POST-BRNCDILAT ADMN Sue Montenegro DO [address] [place] [address] Respiratory [place] [address] [place] [address] Referral ID Status Reason Start Date Expiration Date V isits Requested Visits Authorized [id number] Closed Auto-Generate d Referral 02/11/2022 03/13/2023 1 1 Reason Comments Approval notice Reason Comments Follow Up Reason Comments Vasculitis Reason Comments 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 2 week follow u p Reason Comments Leukocytosis New patient consult Specialty Diagnoses / Procedures Referred By Contyoung t Referred To Contact Diagnoses 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 with renal involvement (HCC) Chronic sinusitis, unspecified location Leukocytosis, unspecified type Procedures CONSULT TO HEMATOLOGY/ONCOLOGY OFFICE/OUTPATIENT NEW HIGH MDM 60-74 MINUTES Te Avendaño MD [address] [place] [address] Referral ID Status Reason Start Date Expiration Date V isits Requested Visits Authorized [id number] Closed PCP Requested Referral 04/21/2022 04/21/2023 1 1 Reason Comments Patient Update Reason Comments Post Op Reason Comments Lab Orders Reason Comments Vasculitis Reason Comments Request Outside Medical Records Request Imaging from [facility], [facility], and [facility]. Reason Comments New Patient New NI Patient Specialty Diagnoses / Procedures Referred By Lhuac t Referred To Contact Neurology Diagnoses Cerebrovascular accident (CVA), unspecified mechanism (HCC) Seizure (HCC) Procedures CONSULT TO NEUROLOGY OFFICE/OUTPATIENT NEW HIGH MDM 60-74 MINUTES Te Avendaño MD [address] [place] [address] Referral ID Status Reason Start Date Expiration Date V isits Requested Visits Authorized [id number] Closed PCP Requested Referral 09/28/2022 09/28/2023 1 1 Specialty Diagnoses / Procedures Referred By Rowan t Referred To Contact CT IMAGING Diagnoses SOB (shortness of breath) 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 with renal involvement (HCC) group home current use of systemic steroids Chronic sinusitis, unspecified location Vitamin D deficiency Procedures CT CHEST WO IVCON DIAGNOSTIC COMPUTED TOMOGRAPHY THORAX W/O CNTRST Te Avendaño MD [address] [place] [address] Ct Imaging Referral ID Status Reason Start Date Expiration Date V isits Requested Visits Authorized [id number] Closed Auto-Generate d Referral 09/08/2021 01/30/2022 1 1 Reason Comments New Patient Reason Comments Medication Authorization Lamotrigine ER Reason Comments Abdominal Pain Reason Comments Follow Up nosebleeds Reason Comments Schedule Surgery ILR Reason Comments Follow Up Reason Comments Transfusion Reason Comments Established Patient Abnormal Lab Reason Onset Date Comments Palpitations 12/31/2022 Reason Comments Patient Education Reason Comments Electronic Communication [facility] asking for office visit note from 12/03/2022 to [phone] Reason Comments Radiology NM Specialty Diagnoses / Procedures Referred By Contac t Referred To Contact MOLECULAR & FUNCTIONAL IMAGING Diagnoses Encounter for other preprocedural examination Procedures NM CARDIAC PERF STRESS/EXERCISE MYOCARDIAL SPECT MULTIPLE STUDIES Ni Causey APRN.LIGHTING SPECIALIST [address] [place] [address] Molecular & Functional Imaging [address] [place] [id number] Referral ID Status Reason Start Date Expiration Date V isits Requested Visits Authorized [id number] Closed Auto-Generated Referral Patient Cleared - INN Insurance Found 12/08/2021 01/07/2023 1 1 Specialty Diagnoses / Procedures Referred By Rowan t Referred To Contact Diagnoses Anemia in chronic kidney disease, on chronic dialysis (HCC) Procedures EPOETIN LEANDRO, NON-ESRD Natali Child MD [address] [place] [address] [place] [address] [facility] [address] [place] [address] Referral ID Status Reason Start Date Expiration Date V isits Requested Visits Authorized [id number] Waiting for Response 01/14/2023 04/14/2023 1 1 Specialty Diagnoses / Procedures Referred By Rowan t Referred To Contact Diagnoses Anemia in chronic kidney disease, on chronic dialysis (HCC) Procedures EPOETIN LEANDRO, NON-ESRD INJ RETACRIT NON-ESRD USE (RETACRIT) Natali Child MD [address] [place] [address] [place] [address] [facility] [address] [place] [address] Referral ID Status Reason Start Date Expiration Date V isits Requested Visits Authorized [id number] Authorized 01/18/2023 07/19/2023 24 24 Reason Comments Anemia 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 with renal invo lvement ([facility]) Follow up Reason Comments PT Eval Specialty Diagnoses / Procedures Referred By Contac t Referred To Contact [facility] Diagnoses High-tone pelvic floor dysfunction in female Procedures CONSULT TO PHYSICAL THERAPY PHYSICAL THERAPY EVALUATION HIGH COMPLEX 45 MINS Fercho Johnson MD [address] [place] [address] [facility] [place] [address] [place] [address] Referral ID Status Reason Start Date Expiration Date Visits Requested Visits Authorized [id number] Authorized Auto-Generat ed Referral 03/15/2022 03/14/2023 30 30 Reason Comments Nausea Specialty Diagnoses / Procedures Referred By Contac t Referred To Contact Gastroenterology Diagnoses Nausea and vomiting, unspecified vomiting type Pre-transplant evaluation for end stage renal disease Procedures CONSULT TO GASTROENTEROLOGY OFFICE/OUTPATIENT [facility] MDM 60-74 MINUTES Estela Lugo MD [address] [place] [address] Referral ID Status Reason Start Date Expiration Date V isits Requested Visits Authorized [id number] Closed PCP Requested Referral 01/08/2023 01/01/2024 1 1 Specialty Diagnoses / Procedures Referred By Contac t Referred To Contact CT IMAGING Diagnoses Fever, unspecified fever cause Cough, unspecified type 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 with renal involvement (HCC) Procedures CT CHEST WO IVCON DIAGNOSTIC COMPUTED TOMOGRAPHY THORAX W/O CNTRST Te Avendaño MD [address] [place] [address] Ct Imaging [place] [address] Referral ID Status Reason Start Date Expiration Date V isits Requested Visits Authorized [id number] Closed Auto-Generat ed Referral Patient Cleared - Admin/Chairm an/Director advise to proceed or did not respond 03/12/2023 04/11/2023 1 1 Reason Comments Anemia 1 month follow up Reason Comments Follow Up Sinus issues. Reason Comments Informed Consent Evaluation informed consent addendum Reason Comments Dialysis status update Reason Comments Established Patient Follow-Up Specialty Diagnoses / Procedures Referred By Contac t Referred To Contact Diagnoses Cryptogenic stroke (HCC) Procedures PROVIDER ORDERED FOLLOW UP OFFICE/OUTPATIENT [facility] 60-74 MINUTES Meliotn Mosqueda MD [address] [place] [address] Referral ID Status Reason Start Date Expiration Date V isits Requested Visits Authorized [id number] Closed PCP Requested Referral 05/27/2023 11/26/2023 1 1 Reason Comments Anemia 6 week follow up Reason Onset Date Comments Refill Request 05/28/2023 Reason Comments Follow Up Epilepsy Reason Onset Date Comments Refill Request 07/01/2023 Reason Comments Anemia Referral ID Status Reason Start Date Expiration Date V isits Requested Visits Authorized [id number] Pending Review 01/18/2023 07/19/2023 24 24 Referral ID Status Reason Start Date Expiration Date V isits Requested Visits Authorized [id number] Waiting for Response 01/18/2023 07/19/2023 24 24 Referral ID Status Reason Start Date Expiration Date Visits Requested Visits Authorized [id number] Additional Clinical Info Needed 01/18/2023 07/19/2023 24 24 Reason Comments Anemia Follow up Reason Onset Date Comments Refill Request 08/30/2023 Referral ID Status Reason Start Date Expiration Date V isits Requested Visits Authorized [id number] Authorized 01/18/2023 02/25/2024 47 47 Referral ID Status Reason Start Date Expiration Date V isits Requested Visits Authorized [id number] Authorized 01/18/2023 02/25/2024 48 48 Referral ID Status Reason Start Date Expiration Date V isits Requested Visits Authorized [id number] Pending Review 01/18/2023 02/25/2024 48 48 Reason Comments Other Dialysis Center Stat us Update Reason Comments General Questions Reason Comments Established Patient Established NI Pancho nt Specialty Diagnoses / Procedures Referred By Rowan pacheco Referred To Contact CT IMAGING Diagnoses Chronic renal failure, unspecified CKD stage Pre-transplant evaluation for end stage renal disease Procedures CT ABD/PEL WO IVCON CT ABD & PELVIS W/O CONTRAST Cathy Liu PA-C [address] [place] [address] [address] [address] Imaging [place] [address] Referral ID Status Reason Start Date Expiration Date V isits Requested Visits Authorized [id number] Closed Auto-Generate d Referral 10/18/2023 11/09/2024 1 1 Reason Comments Approval Notice Reason Comments ABO Verification Reason Comments Anemia in chronic kidney disease, on chr onic dialysis Care Teams (unrecognized sec tion and content) Fast Food Worker Relationship Specialty Start Date End Date de Jeffrey Sin [address] [place] [address] PCP - General Family Practice 06/24/21 Fast Food Worker Relationship Specialty Start Date End Date de Jeffrey Sin [address] [facility] [address] PCP - General Family Practice 06/24/21 Fast Food Worker Relationship Specialty Start Date End Date de Merrick, Jeffrey Lugo [address] [facility] [place] [address] PCP - General Family Practice 06/24/21 Fast Food Worker Relationship Specialty Start Date End Date de Merrick, Jeffrey Lugo [address] [facility] [address] PCP - General Family Practice 06/24/21 Fast Food Worker Relationship Specialty Start Date End Date de , Jeffrey Lugo [address] [place] [address] PCP - General Family Practice 06/24/21 Fast Food Worker Relationship Specialty Start Date End Date de Merrick, Jeffrey Lugo [address] [place] [address] PCP - General Family Practice 06/24/21 Fast Food Worker Relationship Specialty Start Date End Date de , Jeffrey Lugo [address] [place] [address] PCP - General Family Practice 06/24/21 Fast Food Worker Relationship Specialty Start Date End Date de Merrick, Jeffrey Lugo [address] [place] [address] PCP - General Family Practice 06/24/21 Fast Food Worker Relationship Specialty Start Date End Date de Merrick, Jeffrey Lugo [address] [place] [address] PCP - General Family Practice 06/24/21 Fast Food Worker Relationship Specialty Start Date End Date de Merrick, Jeffrey Lugo [address] [place] [address] PCP - General Family Practice 06/24/21 Fast Food Worker Relationship Specialty Start Date End Date de Merrick, Jeffrey Lugo [address] [place] [address] PCP - General Family Practice 06/24/21 Fast Food Worker Relationship Specialty Start Date End Date de [facility], Jeffrey Lugo [address] [place] [address] PCP - General Family Practice 06/24/21 Team Status: Inactive Member Role Status Dates Robert Patel MD Attending Provider Active Jeffrey Burrows MD Primary Care Provider Active Team Status: Active Member Role Status Dates Jeffrey Burrows MD Primary Care Provider Active Team Status: Inactive Member Role Status Dates Jeffrey Burrows MD Primary Care Provider Active Robert Patel MD Attending Provider Active Fast Food Worker Relationship Specialty Start Date End Date de Merrick, Jeffrey Lugo [address] [facility] [place] [address] PCP - General Family Practice 06/24/21 Fast Food Worker Relationship Specialty Start Date End Date de Merrick, Jeffrey Lugo [address] [place] [address] PCP - General Family Practice 06/24/21 Fast Food Worker Relationship Specialty Start Date End Date de [facility], Jeffrey Lugo [address] [place] [address] PCP - General Family Practice 06/24/21 Fast Food Worker Relationship Specialty Start Date End Date de [facility], Jeffrey Lugo [address] [place] [address] PCP - General Family Practice 06/24/21 Fast Food Worker Relationship Specialty Start Date End Date de [facility], Jeffrey Lugo [address] [place] [address] PCP - General Family Practice 06/24/21 Fast Food Worker Relationship Specialty Start Date End Date de [facility], Jeffrey Lugo [address] [place] [address] PCP - General Family Practice 06/24/21 Fast Food Worker Relationship Specialty Start Date End Date de Merrick, Jeffrey Lugo [address] [place] [address] PCP - General Family Practice 06/24/21 Fast Food Worker Relationship Specialty Start Date End Date de Merrick, Jeffrey Lugo [address] [place] [address] PCP - General Family Practice 06/24/21 Fast Food Worker Relationship Specialty Start Date End Date de Merrick, Jeffrey Lugo [address] [place] [address] PCP - General Family Practice 06/24/21 Fast Food Worker Relationship Specialty Start Date End Date de Merrick, Jeffrey Lugo [address] [place] [address] PCP - General Family Practice 06/24/21 Fast Food Worker Relationship Specialty Start Date End Date de Merrick, Jeffrey Lugo [address] [place] [address] PCP - General Family Medicine 06/24/21 Fast Food Worker Relationship Specialty Start Date End Date de Merrick, Jeffrey Lugo [address] [place] [address] PCP - General Family Medicine 06/24/21 Fast Food Worker Relationship Specialty Start Date End Date de Merrick, Jeffrey Lugo [address] [place] [address] PCP - General Family Medicine 06/24/21 Fast Food Worker Relationship Specialty Start Date End Date de Merrick, Jeffrey Lugo [address] [facility] [address] PCP - General Family Medicine 06/24/21 Fast Food Worker Relationship Specialty Start Date End Date de Merrick, Jeffrey Lugo [address] [place] [address] PCP - General Family Medicine 06/24/21 Fast Food Worker Relationship Specialty Start Date End Date de Merrick, Jeffrey Lugo [address] [place] [address] PCP - General Family Medicine 06/24/21 Fast Food Worker Relationship Specialty Start Date End Date de Merrick, Jeffrey Lugo [address] [place] [address] PCP - General Family Medicine 06/24/21 Fast Food Worker Relationship Specialty Start Date End Date de Merrick, Jeffrey Lugo [address] [place] [address] PCP - General Family Medicine 06/24/21 Fast Food Worker Relationship Specialty Start Date End Date de Merrick, Jeffrey Brittney [address] [place] [address] PCP - General Family Medicine 06/24/21 Fast Food Worker Relationship Specialty Start Date End Date de Merrick, Jeffrey Brittney [address] [place] [address] PCP - General Family Medicine 06/24/21 Fast Food Worker Relationship Specialty Start Date End Date de Merrick, Jeffrey Brittney [address] [place] [address] PCP - General Family Medicine 06/24/21 Fast Food Worker Relationship Specialty Start Date End Date de Merrick, Jeffrey Brittney [address] [facility] [place] [address] PCP - General Family Medicine 06/24/21 Fast Food Worker Relationship Specialty Start Date End Date de Merrick, Jeffrey Brittney [address] [facility] [address] PCP - General Family Medicine 06/24/21 Fast Food Worker Relationship Specialty Start Date End Date de Merrick, Jeffrey Brittney [address] [facility] [place] [address] PCP - General Family Medicine 06/24/21 Team Status: Inactive Member Role Status Dates Jeffrey Burrows MD Primary Care Provider Active Agnes Martinez , UNDER WATER ASSISTANT- Emergency Provider Active Fast Food Worker Relationship Specialty Start Date End Date de Merrick, Jeffrey Lugo [address] [place] [address] PCP - General Family Medicine 06/24/21 Fast Food Worker Relationship Specialty Start Date End Date de Jeffrey Sin [address] [place] [address] PCP - General Family Medicine 06/24/21 Fast Food Worker Relationship Specialty Start Date End Date de Jeffrey Sin [address] [place] [address] PCP - General Family Medicine 06/24/21 Fast Food Worker Relationship Specialty Start Date End Date de Jeffrey Sin [address] [place] [address] PCP - General Family Medicine 06/24/21 Fast Food Worker Relationship Specialty Start Date End Date de Jeffrey Sin [address] [place] [address] PCP - General Family Medicine 06/24/21 Fast Food Worker Relationship Specialty Start Date End Date de Jeffrey Sin [address] [place] [address] PCP - General Family Medicine 06/24/21 Fast Food Worker Relationship Specialty Start Date End Date de Jeffrey Sin [address] [place] [address] PCP - General Family Medicine 06/24/21 Fast Food Worker Relationship Specialty Start Date End Date de Jeffrey Sin [address] [place] [address] PCP - General Family Medicine 06/24/21 Fast Food Worker Relationship Specialty Start Date End Date de Jeffrey Sin [address] [place] [address] PCP - General Family Medicine 06/24/21 Fast Food Worker Relationship Specialty Start Date End Date de Jeffrey Sin [address] [place] [address] PCP - General Family Medicine 06/24/21 Fast Food Worker Relationship Specialty Start Date End Date de Jeffrey Sin [address] [place] [address] PCP - General Family Medicine 06/24/21 Fast Food Worker Relationship Specialty Start Date End Date de Jeffrey Sin [address] [place] [address] PCP - General Family Medicine 06/24/21 Fast Food Worker Relationship Specialty Start Date End Date de Jeffrey Sin [address] [place] [address] PCP - General Family Medicine 06/24/21 Fast Food Worker Relationship Specialty Start Date End Date de Jeffrey Sin [address] [place] [address] PCP - General Family Medicine 06/24/21 Fast Food Worker Relationship Specialty Start Date End Date de Jeffrey Sin [address] [place] [address] PCP - General Family Medicine 06/24/21 Fast Food Worker Relationship Specialty Start Date End Date de Jeffrey Sin [address] [place] [address] PCP - General Family Medicine 06/24/21 Fast Food Worker Relationship Specialty Start Date End Date de Merrick, Jeffrey Lugo [address] [place] [address] PCP - General Family Medicine 06/24/21 Fast Food Worker Relationship Specialty Start Date End Date de Merrick, Jeffrey Lugo [address] [place] [address] PCP - General Family Medicine 06/24/21 Fast Food Worker Relationship Specialty Start Date End Date de Merrick, Jeffrey Lugo [address] [place] [address] PCP - General Family Medicine 06/24/21 Team Status: Inactive Member Role Status Dates Jeffrey Burrows MD Primary Care Provider Active Natali Child MD Attending Provider Active Fast Food Worker Relationship Specialty Start Date End Date de Merrick, Jeffrey Lugo [address] [place] [address] PCP - General Family Medicine 06/24/21 Fast Food Worker Relationship Specialty Start Date End Date de Merrick, Jeffrey Lugo [address] [place] [address] PCP - General Family Medicine 06/24/21 Fast Food Worker Relationship Specialty Start Date End Date de Merrick, Jeffrey Lugo [address] [place] [address] PCP - General Family Medicine 06/24/21 Fast Food Worker Relationship Specialty Start Date End Date de Merrick, Jeffrey Lugo [address] [place] [address] PCP - General Family Medicine 06/24/21 Fast Food Worker Relationship Specialty Start Date End Date de Merrick, Jeffrey Lugo [address] [place], [place] [address] PCP - General Family Medicine 06/24/21 [place] [address] [place] [address] Primary Staff Physician Cardiology 12/31/22 Fast Food Worker Relationship Specialty Start Date End Date de Jeffrey Sin [address] [place] [address] PCP - General Family Medicine 06/24/21 Fast Food Worker Relationship Specialty Start Date End Date de Jeffrey Sin [address] [place] [address] PCP - General Family Medicine 06/24/21 Daniel Toro MD [address] [place] [address] Primary Staff Physician Cardiology 12/31/22 Fast Food Worker Relationship Specialty Start Date End Date de Jeffrey Sin [address] [place] [address] PCP - General Family Medicine 06/24/21 Daniel Toro MD [address] [place], [place] [phone] Primary Staff Physician Cardiology 12/31/22 Fast Food Worker Relationship Specialty Start Date End Date de Jeffrey Sin [address] [place], [place] [id number] PCP - General Family Medicine 06/24/21 Daniel Toro MD [address] [id number] Primary Staff Physician Cardiology 12/31/22 Fast Food Worker Relationship Specialty Start Date End Date de Jeffrey Sin [address] [place] [address] PCP - General Family Medicine 06/24/21 [place] [address] [place] [address] [id number] Primary Staff Physician Cardiology 12/31/22 Fast Food Worker Relationship Specialty Start Date End Date de Jeffrey Sin [address] [place] [address] PCP - General Family Medicine 06/24/21 Fast Food Worker Relationship Specialty Start Date End Date de Jeffrey Sin [address] [place] [address] PCP - General Family Medicine 06/24/21 Daniel Toro MD [address] [place] [id number] Primary Staff Physician Cardiology 12/31/22 Fast Food Worker Relationship Specialty Start Date End Date de Jeffrey Sin [address] [place] [address] PCP - General Family Medicine 06/24/21 Fast Food Worker Relationship Specialty Start Date End Date de Jeffrey Sin [address] [place] [address] PCP - General Family Medicine 06/24/21 Fast Food Worker Relationship Specialty Start Date End Date de Jeffrey Sin [address] [place] [address] PCP - General Family Medicine 06/24/21 Daniel Toro MD [address] [phone] Primary Staff Physician Cardiology 12/31/22 Fast Food Worker Relationship Specialty Start Date End Date de [facility] [place] [address] PCP - General Family Medicine 06/24/21 Daniel Toro MD [address] [place] [address] Primary Staff Physician Cardiology 12/31/22 Fast Food Worker Relationship Specialty Start Date End Date de Jeffrey Sin [address] [place] [id number] PCP - General Family Medicine 06/24/21 Daniel Toro MD [address] [place] [address] Primary Staff Physician Cardiology 12/31/22 Fast Food Worker Relationship Specialty Start Date End Date Jeffrey Del Cid [address] [address] PCP - General Family Medicine 06/24/21 Daniel Toro MD [address] [place] [address] Primary Staff Physician Cardiology 12/31/22 Fast Food Worker Relationship Specialty Start Date End Date de Jeffrey Sin [address] [place], [place] [address]ES [address] [place] [id number] PCP - General Family Medicine 06/24/21 Daniel Toro MD [address] [place], [place] [phone] Primary Staff Physician Cardiology 12/31/22 Fast Food Worker Relationship Specialty Start Date End Date de Jeffrey Sin [address] [facility] [place] [address] PCP - General Family Medicine 06/24/21 Daniel Toro MD [address] [place] [phone] Primary Staff Physician Cardiology 12/31/22 Fast Food Worker Relationship Specialty Start Date End Date de Jeffrey [place] [address] PCP - General Family Medicine 06/24/21 Daniel Toro MD [address] [place], [place] [phone] Primary Staff Physician Cardiology 12/31/22 Fast Food Worker Relationship Specialty Start Date End Date de Jeffrey Sin [address] [place] [address] PCP - General Family Medicine 06/24/21 Daniel Toro MD [address] [place], [place] [phone] Primary Staff Physician Cardiology 12/31/22 Fast Food Worker Relationship Specialty Start Date End Date de Jeffrey Sin [address] [place] [address] PCP - General Family Medicine 06/24/21 Daniel Toro MD [address] [place] [id number] Primary Staff Physician Cardiology 12/31/22 Fast Food Worker Relationship Specialty Start Date End Date de Jeffrey Sin [address] [place] [address] PCP - General Family Medicine 06/24/21 Daniel Toro MD [address] [place], [place] [phone] Primary Staff Physician Cardiology 12/31/22 Fast Food Worker Relationship Specialty Start Date End Date Jeffrey Del Cid [address] [place] [address] PCP - General Family Medicine 06/24/21 Daniel Toro MD [address] [place] [address] Primary Staff Physician Cardiology 12/31/22 Fast Food Worker Relationship Specialty Start Date End Date Jeffrey Del Cid [address] [address] PCP - General Family Medicine 06/24/21 Daniel Toro MD [address] [place] [address] Primary Staff Physician Cardiology 12/31/22 Fast Food Worker Relationship Specialty Start Date End Date Jeffrey Del Cid [address] [place] [address] PCP - General Family Medicine 06/24/21 Daniel Toro MD [address] [place] [address] Primary Staff Physician Cardiology 12/31/22 Fast Food Worker Relationship Specialty Start Date End Date Jeffrey Del Cid [address] [id number] PCP - General Family Medicine 06/24/21 Daniel Toro MD [address] [place], [place] [phone] Primary Staff Physician Cardiology 12/31/22 Fast Food Worker Relationship Specialty Start Date End Date de Jeffrey Sin [address] [place] [address] PCP - General Family Medicine 06/24/21 Daniel Toro MD [address] [phone] Primary Staff Physician Cardiology 12/31/22 Fast Food Worker Relationship Specialty Start Date End Date de Jeffrey Sin [address] [place] [address] PCP - General Family Medicine 06/24/21 Daniel Toro MD [address] [phone] Primary Staff Physician Cardiology 12/31/22 Fast Food Worker Relationship Specialty Start Date End Date Jeffrey Del Cid [address] [place] [address] PCP - General Family Medicine 06/24/21 Daniel Toro MD [address] [place], [place] [phone] Primary Staff Physician Cardiology 12/31/22 Fast Food Worker Relationship Specialty Start Date End Date Jeffrey Del Cid [address] [place] [address] PCP - General Family Medicine 06/24/21 Daniel Toro MD [address] [place], [place] [phone] Primary Staff Physician Cardiology 12/31/22 Fast Food Worker Relationship Specialty Start Date End Date de Jeffrey Sin [address] [address] PCP - General Family Medicine 06/24/21 Daniel Toro MD [address] [place], [place] [phone] Primary Staff Physician Cardiology 12/31/22 Fast Food Worker Relationship Specialty Start Date End Date de Jeffrey Sin [address] [address] PCP - General Family Medicine 06/24/21 Daniel Toro MD [address] [place], [place] [phone] Primary Staff Physician Cardiology 12/31/22 Fast Food Worker Relationship Specialty Start Date End Date de Jeffrey Sin [address] [place] [address] PCP - General Family Medicine 06/24/21 Daniel Toro MD [address] [place], [place] [phone] Primary Staff Physician Cardiology 12/31/22 Fast Food Worker Relationship Specialty Start Date End Date de Jeffrey Sin [address] [address] PCP - General Family Medicine 06/24/21 Fast Food Worker Relationship Specialty Start Date End Date de Jeffrey Sin [address] [address] PCP - General Family Medicine 06/24/21 Daniel Toro MD [address] [place], [place] [phone] Primary Staff Physician Cardiology 12/31/22 Fast Food Worker Relationship Specialty Start Date End Date Jeffrey Del Cid [address] [place] [address] PCP - General Family Medicine 06/24/21 Daniel Toro MD [address] [place] [address] Primary Staff Physician Cardiology 12/31/22 Fast Food Worker Relationship Specialty Start Date End Date de Jeffrey Sin [address] [place] [address] PCP - General Family Medicine 06/24/21 Daniel Toro MD [address] [place] [address] Primary Staff Physician Cardiology 12/31/22 Fast Food Worker Relationship Specialty Start Date End Date Jeffrey Del Cid [address] [place] [address] PCP - General Family Medicine 06/24/21 Daniel Toro MD [address] [place] [address] Primary Staff Physician Cardiology 12/31/22 Fast Food Worker Relationship Specialty Start Date End Date Jeffrey Del Cid [address] [place] [address] PCP - General Family Medicine 06/24/21 Daniel Toro MD [address] [place] [address] Primary Staff Physician Cardiology 12/31/22 Fast Food Worker Relationship Specialty Start Date End Date Jeffrey Del Cid [address] [place], [place] [address] [address] PCP - General Family Medicine 06/24/21 Daniel Toro MD [address] [place], [place] [phone] Primary Staff Physician Cardiology 12/31/22 Fast Food Worker Relationship Specialty Start Date End Date de [facility] [place] [address] PCP - General Family Medicine 06/24/21 Daniel Toro MD [address] [place], [place] [phone] Primary Staff Physician Cardiology 12/31/22 Fast Food Worker Relationship Specialty Start Date End Date [facility] [place] [address] PCP - General Family Medicine 06/24/21 Daniel Toro MD [address] [place], [place] [phone] Primary Staff Physician Cardiology 12/31/22 Fast Food Worker Relationship Specialty Start Date End Date [facility] [address] PCP - General Family Medicine 06/24/21 Daniel Toro MD [facility] [phone] Primary Staff Physician Cardiology 12/31/22 Fast Food Worker Relationship Specialty Start Date End Date de Jeffrey Sin [address] [place] [address] PCP - General Family Medicine 06/24/21 Daniel Toro MD [address] [place], [place] [phone] Primary Staff Physician Cardiology 12/31/22 Fast Food Worker Relationship Specialty Start Date End Date de Jeffrey Sin [address] [place], [place] [id number] PCP - General Family Medicine 06/24/21 Daniel Toro MD [address] [place] [address] Primary Staff Physician Cardiology 12/31/22 Fast Food Worker Relationship Specialty Start Date End Date de Jeffrey Sin [address] [place] [address] PCP - General Family Medicine 06/24/21 Daniel Toro MD [address] [phone] Primary Staff Physician Cardiology 12/31/22 Fast Food Worker Relationship Specialty Start Date End Date de Jeffrey Sin [address] [place], [place] [id number] PCP - General Family Medicine 06/24/21 Daniel Toro MD [address] [phone] Primary Staff Physician Cardiology 12/31/22 Fast Food Worker Relationship Specialty Start Date End Date de Merrick Jeffrey Brittney [address] [place] [address] PCP - General Family Medicine 06/24/21 Daniel Toro MD [address] [place] [address] Primary Staff Physician Cardiology 12/31/22 Fast Food Worker Relationship Specialty Start Date End Date nery Jeffrey Sin [address] [place] [address] PCP - General Family Medicine 06/24/21 Daniel Toro MD [address] [place] [address] Primary Staff Physician Cardiology 12/31/22 Fast Food Worker Relationship Specialty Start Date End Date nery Jeffrey Sin Brittney [address] [place] [address] PCP - General Family Medicine 06/24/21 Daniel Toro MD [address] [place] [address] Primary Staff Physician Cardiology 12/31/22 Goals (unrecognized section and content) Goals may be documented in a n alternate sectionGoals may be documented in an alternate sectionGoals may be documented in an alternate sectionGoals may be documented in an alternate sectionGoals may be documented in an alternate section Inactive Administered Medications - up to 3 most recent administrations Administered Medications (un recognized section and content) Medication Order MAR Action Action Date Dose Rate Site epoetin leandro-epbx 40,000 Units injection (RETACRIT) 40,000 Units, SUBCUTANEOUS, ONCE, 1 dose, On Wed04/28/23 at 1500, Refrigerate - Protect From Light - Do Not Shake, Medication Substitution: [facility] preferred product has been replaced with the insurance mandated product Given 04/28/2023 3:01 PM EST 40,000 Units Arm, Right Inactive Administered Medications - up to 3 most recent administrations Medication Order MAR Action Action Date Dose Rate Site epoetin leandro-epbx 40,000 Units injection (RETACRIT) 40,000 Units, SUBCUTANEOUS, ONCE, 1 dose, On Wed05/05/23 at 1030, Refrigerate - Protect From Light - Do Not Shake, Medication Substitution: [facility] preferred product has been replaced with the insurance mandated product Given 05/05/2023 10:36 AM EST 40,000 Units Arm, Right Inactive Administered Medications - up to 3 most recent administrations Medication Order MAR Action Action Date Dose Rate Site epoetin leandro-epbx 40,000 Units injection (RETACRIT) 40,000 Units, SUBCUTANEOUS, ONCE, 1 dose, On Wed05/26/23 at 1200, Refrigerate - Protect From Light - Do Not Shake, Medication Substitution: [facility] preferred product has been replaced with the insurance mandated product Given 05/26/2023 11:44 AM EDT 40,000 Units Arm, Right Inactive Administered Medications - up to 3 most recent administrations Medication Order MAR Action Action Date Dose Rate Site epoetin leandro-epbx 40,000 Units injection (RETACRIT) 40,000 Units, SUBCUTANEOUS, ONCE, 1 dose, On Wed06/02/23 at 1200, Refrigerate - Protect From Light - Do Not Shake, Medication Substitution: [facility] preferred product has been replaced with the insurance mandated product Given 06/02/2023 12:01 PM EDT 40,000 Units Arm, Right Inactive Administered Medications - up to 3 most recent administrations Medication Order MAR Action Action Date Dose Rate Site epoetin leandro-epbx 40,000 Units injection (RETACRIT) 40,000 Units, SUBCUTANEOUS, ONCE, 1 dose, On Wed06/16/23 at 1100, Refrigerate - Protect From Light - Do Not Shake, Medication Substitution: [facility] preferred product has been replaced with the insurance mandated product Given 06/16/2023 11:08 AM EDT 40,000 Units Arm, Right Inactive Administered Medications - up to 3 most recent administrations Medication Order MAR Action Action Date Dose Rate Site epoetin leandro-epbx 40,000 Units injection (RETACRIT) 40,000 Units, SUBCUTANEOUS, ONCE, 1 dose, On Wed06/23/23 at 1130, Refrigerate - Protect From Light - Do Not Shake, Medication Substitution: [facility] preferred product has been replaced with the insurance mandated product Given 06/23/2023 11:30 AM EDT 40,000 Units Arm, Right Inactive Administered Medications - up to 3 most recent administrations Medication Order MAR Action Action Date Dose Rate Site epoetin leandro-epbx 40,000 Units injection (RETACRIT) 40,000 Units, SUBCUTANEOUS, ONCE, 1 dose, On Wed06/30/23 at 1130, Refrigerate - Protect From Light - Do Not Shake, Medication Substitution: [facility] preferred product has been replaced with the insurance mandated product Given 06/30/2023 11:33 AM EDT 40,000 Units Arm, Right FOR RECORDS PERTAINING TO PATIENTS WHO ARE OR HAVE BEEN ENROLLED IN A CHEMICAL DEPENDENCY/SUBSTANCEABUSE PROGRAM, SOME INFORMATION MAY BE OMITTED. This clinical summary was aggregated from multiple sources. Caution should be exercised in using it in the provision of clinical care. This summary normalizes information from multiple sources, and as a consequence, information in this document may materially change the coding, format and clinical context of patient data. In addition, data may be omitted in some cases. CLINICAL DECISIONS SHOULD BE BASED ON THE PRIMARY CLINICAL RECORDS. [employer] provides no warranty or guarantee of the accuracy or completeness of information in this document.
[2023-11-14 23:36] VITALS: BP 110/78; PULSE 95; TEMP 36.8; O2SAT 100; BMI 30.2
--- NOTE | 2023-11-14 23:57 | XR_ITS ---
[address] [address] Patient Name: JAN LOMBARDI MRN: [id number] date: 1980 Sex: F Assigned Patient Location: ER Current Patient Location: Accession/Order Number: [id number] Exam Date: 11/14/2023 23:59 Report Date: 11/15/2023 01:29 At the request of: RONNY FERRER Procedure: XR chest 2V CHEST X-RAY. INDICATION: Fever and cough. COMPARISON: 01/30/2023 TECHNIQUE: Frontal and lateral chest radiographs. FINDINGS: TUBES AND LINES: None. LUNGS: Lungs are clear. PLEURA: No effusions or pneumothorax. HEART AND MEDIASTINUM: Within normal limits. Stable cardiac loop recorder. OSSEOUS STRUCTURES: No acute abnormality. XR/XR chest 2V IMPRESSION: No acute findings. Electronically authenticated by: SAMY BROWN Date: 11/15/2023 01:29
[2023-11-15 00:39] LABS: Hematocrit 28.5 % (36.0-48.0); Hemoglobin 9.6 g/dL (12.0-16.0); Mean Corpuscular HGB Conc 33.7 g/dL (29.9-35.2); Mean Corpuscular Hemoglobin 36.2 pg (26.7-34.0); Mean Corpuscular Volume 107.5 fL (81.0-99.0); Mean Platelet Volume 9.8 fL (9.5-13.5); Platelet Count 241 10^3/uL (150-450); Red Blood Count 2.65 10^6/uL (4.20-5.40); Red Cell Distribution Width 16.3 % (11.0-15.0); White Blood Count 11.1 10^3/uL (4.0-11.0)
[2023-11-15 00:53] LABS: Internal Control Within Normal Limits; SARS-CoV-2 Ag NEGATIVE (NEGATIVE)
[2023-11-15 00:53] LABS: Lactate/Lactic Acid 1.7 mmol/L (0.4-2.0)
[2023-11-15 01:01] LABS: Potassium 3.8 mmol/L (3.5-5.1); Sodium 136 mmol/L (136-145)
[2023-11-15 01:02] LABS: Anion Gap 14.7; Carbon Dioxide 33.1 mmol/L (21.0-32.0); Chloride 92 mmol/L (98-107); Glucose 98 mg/dL (74-106)
[2023-11-15 01:03] LABS: BUN Creatinine Ratio 3.9; Estimated GFR (African America 2 (>=60); Estimated GFR (Non-African Ame 2 (>=60)
[2023-11-15 01:04] LABS: Calcium 9.1 mg/dL (8.5-10.1)
--- NOTE | 2023-11-15 01:08 | ED.GENADUL1 ---
HPI HPI - General Adult General Chief complaint: Fever Stated complaint: FEVER Time Seen by Provider: 11/14/23 23:51 Source: patient Mode of arrival: walk-in Limitations: no limitations History of Present Illness HPI narrative: 43-year-old female to the emergency department for evaluation for fever chills. Patient reports that she has had a cough, nasal congestion, nausea and vomiting over the last 48 hours. The nausea and vomiting has resolved. She has no other complaints at this time. Denies any diarrhea. No antipyretics taken. She reports she is immunocompromised and needs evaluation whenever she has a fever. She is on [facility] dialysis. Related Data Home Medications ?Medication ?Instructions ?Recorded ?Confirmed amlodipine 2.5 mg tablet 2.5 mg PO DAILY 01/20/23 11/14/23 apixaban 2.5 mg tablet (Eliquis) 2.5 mg PO BID 01/20/23 01/20/23 atorvastatin 40 mg tablet 40 mg PO DAILY 01/20/23 11/14/23 azathioprine 50 mg tablet 50 mg PO DAILY 01/20/23 11/14/23 folic acid 1 mg tablet 01/20/23 magnesium oxide 400 mg (241.3 mg mg 01/20/23 magnesium) tablet metoprolol succinate 25 mg 25 mg PO Q12H 01/20/23 11/14/23 tablet,extended release 24 hr ondansetron HCl 4 mg tablet 4 mg PO Q6H PRN nausea and vomiting 01/20/23 11/14/23 pantoprazole 40 mg tablet,delayed 40 mg PO DAILY 01/20/23 11/14/23 release potassium chloride 10 mEq meq PO 01/20/23 tablet,extended release(part/cryst) sevelamer carbonate 2.4 gram oral g 01/20/23 powder packet sucralfate 100 mg/mL oral 01/20/23 suspension cholecalciferol (vitamin D3) 1,250 11/14/23 mcg (50,000 unit) capsule lamotrigine 100 mg tablet,extended 100 mg PO BID 11/14/23 11/14/23 release 24 hr warfarin 5 mg tablet 5 mg PO DAILY 11/14/23 11/14/23 Previous Rx's ?Medication ?Instructions ?Recorded cephalexin 500 mg capsule 500 mg PO BID 5 days #10 caps 11/15/23 Allergies Allergy/AdvReac Type Severity Reaction Status Date / Time vancomycin Allergy Intermediate Hives Verified 11/14/23 23:43 amoxicillin Allergy Hives Verified 11/14/23 23:43 Penicillins Allergy Hives Verified 11/14/23 23:43 Opioid HPI Opioid Management Most Recent Opioid Data: No Data to Display Review of Systems ROS Status of ROS 10 or more systems reviewed and unremarkable except as noted in history and below Exam Narrative Exam Narrative: VITALS: I have reviewed the triage vital signs. GENERAL: Well developed, well appearing adult female in no acute distress. NEURO: Alert and oriented. Moves all extremities. Face is symmetric and expressive. EYES: PERRL. No scleral icterus or conjunctival injection. No discharge. HENT: Normocephalic, atraumatic. Hearing is grossly intact. Nares grossly patent and without discharge. Mucous membranes moist. NECK: No JVD. Patient moves neck without restriction. CARDIO: Rhythm regular. Normal rate. No murmur, rub, or gallop. Pulses equal bilaterally in the upper and lower extremity. No lower extremity edema. PULM: Lungs clear to auscultation in all mcdonnell. No wheezes, rales, or rhonchi. No conversational dyspnea. No splinting, stridor, or accessory muscle use. GI/: Abdomen is soft and non-tender. Normoactive bowel sounds. PD dialysis catheter in place. EXTREMITIES: Symmetric muscle bulk. No joint swelling. No clubbing, cyanosis, or deformity. SKIN: Warm and dry. Normal turgor. No rash or lesions appreciated. PSYCH: Mood, affect, and interaction is appropriate to the setting. Constitutional Vital Signs, click to edit/add: Last Vital Signs Temp 98.3 F 11/14/23 23:36 Pulse 95 H 11/14/23 23:36 Resp 18 11/14/23 23:36 BP 110/78 11/14/23 23:36 Pulse Ox 100 11/14/23 23:36 O2 Del Method Room Air 11/14/23 23:36 Course Vital Signs Vital signs: Vital Signs Temperature 98.3 F 11/14/23 23:36 Pulse Rate 95 H 11/14/23 23:36 Respiratory Rate 18 11/14/23 23:36 Blood Pressure 110/78 11/14/23 23:36 Pulse Oximetry 100 11/14/23 23:36 Oxygen Delivery Method Room Air 11/14/23 23:36 Temperature 98.3 F 11/14/23 23:36 Pulse Rate 95 H 11/14/23 23:36 Respiratory Rate 18 11/14/23 23:36 Blood Pressure 110/78 11/14/23 23:36 Pulse Oximetry 100 11/14/23 23:36 Oxygen Delivery Method Room Air 11/14/23 23:36 Medical Decision Making MDM Narrative Medical decision making narrative: Well-appearing 43-year-old female to the emergency department with chief complaint of fever, malaise, nausea vomiting that has resolved and cough. She reports she needs labs when this happens. Basic labs, blood cultures are ordered. Patient agrees with this plan. Renal function at baseline. No major electrolyte abnormalities. She has a mild leukocytosis. Lab work otherwise unremarkable. X-ray without acute findings. Discussed results with the patient. She would like to be covered with antibiotics while awaiting culture results. She reports that her doctor is done this for her in the past. Will cover with Keflex. She we will continue peritoneal dialysis at home. Return precautions discussed. All questions were answered. The patient was discharged home Medical Records Medical records reviewed: Yes I reviewed the patient's medical records Lab Data Lab results reviewed: Yes I reviewed the patient's lab results Labs: Lab Results 11/15/23 11/15/23 Range/Units 00:15 00:16 WBC 11.1 H (4.0-11.0) 10^3/uL RBC 2.65 L (4.20-5.40) 10^6/uL Hgb 9.6 L (12.0-16.0) g/dL Hct 28.5 L (36.0-48.0) % MCV 107.5 H (81.0-99.0) fL MCH 36.2 H (26.7-34.0) pg MCHC 33.7 (29.9-35.2) g/dL RDW 16.3 H (11.0-15.0) % Plt Count 241 (150-450) 10^3/uL MPV 9.8 (9.5-13.5) fL Seg Neuts % (Manual) 93.0 H (43.0-75.0) Lymphocytes % (Manual) 2.0 L (20.5-60.0) % Monocytes % (Manual) 4.0 (1.7-12.0) % Eosinophils % (Manual) 1.0 (0.9-7.0) % Basophils % (Manual) 0.0 L (0.2-2.0) % Neutrophils # (Manual) 10.32 H (1.4-6.5) 10^3/uL Lymphocytes # (Manual) 0.22 L (1.20-3.80) 10^3/uL Monocytes # (Manual) 0.44 (0.30-0.80) 10^3/uL Eosinophils # (Manual) 0.11 (0.00-0.70) 10^3/uL Basophils # (Manual) 0.00 (0.00-0.10) 10^3/uL Macrocytosis 1+ Sodium 136 (136-145) mmol/L Potassium 3.8 (3.5-5.1) mmol/L Chloride 92 L (98-107) mmol/L Carbon Dioxide 33.1 H (21.0-32.0) mmol/L Anion Gap 14.7 BUN 77.0 H* (7.0-18.0) mg/dL Creatinine 19.62 H* (0.55-1.02) mg/dL Est GFR ( Amer) 2 L (>=60) Est GFR (Non-Af Amer) 2 L (>=60) BUN/Creatinine Ratio 3.9 Glucose 98 (74-106) mg/dL Lactate 1.7 (0.4-2.0) mmol/L Calcium 9.1 (8.5-10.1) mg/dL SARS-CoV-2 Ag (CV2AG) Negative (NEGATIVE) Discharge Plan Discharge Stand Alone Forms: Work/School Release, Portal Instructions Chief Complaint: Fever Clinical Impression: Fever, Leukocytosis, History of end stage renal disease Patient Disposition: Home, Self-Care Time of Disposition Decision: 01:54 Condition: Good Mode of Transportation: Private Vehicle Prescriptions / Home Meds: New cephalexin 500 mg capsule 500 mg PO BID 5 Days Qty: 10 0RF No Action ondansetron HCl 4 mg tablet 4 mg PO Q6H PRN (Reason: nausea and vomiting) amlodipine 2.5 mg tablet 2.5 mg PO DAILY pantoprazole 40 mg tablet,delayed release (DR/EC) 40 mg PO DAILY folic acid 1 mg tablet Eliquis 2.5 mg tablet 2.5 mg PO BID atorvastatin 40 mg tablet 40 mg PO DAILY sucralfate 100 mg/mL suspension azathioprine 50 mg tablet 50 mg PO DAILY magnesium oxide 400 mg (241.3 mg magnesium) tablet metoprolol succinate 25 mg tablet extended release 24 hr 25 mg PO Q12H potassium chloride 10 mEq tablet,ER particles/crystals PO sevelamer carbonate 2.4 gram powder in packet lamotrigine 100 mg tablet extended release 24hr 100 mg PO BID warfarin 5 mg tablet 5 mg PO DAILY Rx Instructions: 7.5 mg on Fridays cholecalciferol (vitamin D3) 1,250 mcg (50,000 unit) capsule Print Language: Setswana Instructions: Fever in Adults (ED) Additional Instructions: Call the office of your primary care doctor to arrange for follow-up within the above-stated timeframe. Your ED visit was focused on your acute issue and does not replace primary care. You should review your labs, imaging, and diagnoses from this ED visit with your primary care physician. There may be non-emergent/ incidental findings that need further evaluation. You should review your vital signs including blood pressure with your PCP. If you were prescribed medications you should discuss possible side-effects and drug interactions with your pharmacist. Call 911 or go to the nearest Emergency Department if you develop any new or worsening symptoms. Referrals: JEFFREY ARGUELLES [Primary Care Provider] - 1 week
[2023-11-15 01:41] LABS: Eosinophils Absolute Manual 0.11 10^3/uL (0.00-0.70); Lymphocytes Absolute Manual 0.22 10^3/uL (1.20-3.80); Monocytes Absolute Manual 0.44 10^3/uL (0.30-0.80); Segmented Neut Absolute Manual 10.32 10^3/uL (1.4-6.5)
[2023-11-15 01:42] LABS: Macrocytosis 1+
[2023-11-15] MEDS: CEPHALEXIN 500 MG CAPSULE PO (02:03)
== END 2023-11-15 02:26 | disposition home or self-care (01) ==
PROVIDERS: Emergency Provider Student in an Organized Health Care Education/Training Program; PCP Family Medicine
DX: R50.9 Fever, unspecified (principal); D72.829 Elevated white blood cell count, unspecified; N18.6 End stage renal disease; Z20.822 Contact with and (suspected) exposure to COVID-19
CPT/HCPCS: 36415; 71046; 80048; 83605; 85007; 85027; 87040; 87811; 99284